=== PATIENT | female | born 1955 | race Caucasian/White ===

== ENCOUNTER 2024-01-10 17:21 | Emergency (ER) | payer OTHER, SELFPAY ==
[2024-01-10 17:26] VITALS: BP 125/73; PULSE 85; RESP 18; TEMP 37.1; O2SAT 97; BMI 17.6
--- NOTE | 2024-01-10 17:33 | ED.GENADULT ---
HPI - General Adult General Chief complaint: Extremity Pain/Injury, Lower Stated complaint: R foot swollen/cbqpvms-zqpoavhie-vinqfms arteries Time Seen by Provider: 01/10/24 17:32 History of Present Illness HPI narrative: This is a 68-year-old female presenting to the ER today accompanied by her granddaughter with concern for redness and swelling affecting her right foot as well as right foot pain and numbness. She moved from [place], [place], yesterday to be here in [facility], close to her family. She now lives in [place] as of yesterday. She has not been able to establish any primary care here in [place] or establish insurance here in [place]. She has multiple chronic medical conditions which require management. She has peripheral artery disease. She apparently has had workup through a vascular surgeon in [facility]. She apparently has a near critical stenosis affecting her right leg, and less severe stenoses affecting her left leg. Apparently these blockages are not amenable to angioplasty. Her surgeon had talked to her about doing a open surgical repair, but since the repair was very risky, she opted not to proceed. She also has a history of lung cancer and has had a partial lung resection. After that she had some recurrent nodules and her other long. She is managing that expecting we and does not want to do chemotherapy. She also has chronic pain and is on oxycodone 10 mg p.r.n.. She also has emphysema. She is not currently on oxygen or steroids. She has hypertension, on hydrochlorothiazide and lisinopril. She came to the ER today because she is concerned that she has an infection evolving in her right foot. She has onychomycosis of the thickening of her toenails. She cut her right big toe a few weeks ago when trying to Christian her toenail. For the past few days she has noticed increasing redness and a little bit of swelling of the big toe and now redness with subtle swelling spreading up the medial instep of her foot up to her posterior ankle. She is not having any fever or chills. No swelling or infection of her left foot. She also notes that she has chronic pain in her feet because of her peripheral artery disease. She says the pain in her right foot has been getting worse for the past few weeks in particular she has been having continuous pain, even with rest, for the past 3 days. She also notes worsening numbness in her right foot over the past several days. It is not turning blue or dusky. No gangrene. Related Data Home Medications ?Medication ?Instructions ?Recorded ?Confirmed hydrochlorothiazide 25 mg tablet 12.5 mg PO DAILY 01/10/24 01/10/24 lisinopril 2.5 mg tablet 2.5 mg PO DAILY 01/10/24 01/10/24 oxycodone 10 mg tablet 10 mg PO TID 01/10/24 01/10/24 potassium 20 mg chewable tablet mg PO 01/10/24 Allergies Allergy/AdvReac Type Severity Reaction Status Date / Time Penicillins Allergy Verified 01/10/24 17:30 Sulfa (Sulfonamide Allergy Verified 01/10/24 17:33 Antibiotics) Exam Narrative: Exam Narrative: Constitutional: Appears well-developed and well-nourished. Very slender but not quite cachectic. Alert. Conversant. Non toxic. HENT: Head: Atraumatic. Nose: Nose normal. Mouth/Throat: Oral mucosa is clear and moist. no trismus. Pharynx normal. Tonsils symmetric. No tonsillar enlargement, erythema, or exudate. Eyes: Conjunctivae normal. EOM normal. Pupils equal, round, and reactive to light. No scleral icterus. Neck: Normal range of motion. Neck supple. No tracheal deviation present. Cardiovascular: Normal rate, regular rhythm. No gallop. No friction rub. No murmur heard. Symmetric radial artery pulses . No palpable DP or PT pulses in either foot. With bedside Doppler ultrasound I am able to get bilateral PT pulses. I am not able to detect dorsalis pedis pulses by ultrasound either foot. She does have less than 3 seconds capillary refill bilaterally. The right foot does appear to be slightly dusky or than the left foot but is not frankly cyanotic or mottled. Pulmonary/Chest: Effort normal. No stridor. No respiratory distress. No wheezes. No rales. No rhonchi . No tenderness. Abdominal: Soft. Bowel sounds normal. No distension. No mass. No tenderness. No rebound. No guarding. Musculoskeletal: RUE: Normal range of motion. No tenderness. No deformity LUE: Normal range of motion. No tenderness. No deformity RLE: Normal range of motion in her knee, it hip, ankle. She is able to wiggle her toes with normal plantar flexion and dorsiflexion. There is erythema of the great toe and a little bit of erythema on the medial arch of the foot and on skin posterior to her medial malleolus. The medial side of the foot feel slightly warmer than the lateral toes. No other more proximal ascending lymphangitis. There is trace edema affecting the right medial foot. She complains of pain in her right foot especially in the forefoot, but is not tender to palpation. No bruising. No crepitus No deformity LLE: Normal range of motion. No edema. No tenderness. No deformity Lymph: No ascending lymphangitis Neurological: Alert and oriented to person, place, and time. Normal strength. CN II-VII intact. No sensory deficit. GCS eye subscore is 4. GCS verbal subscore is 5. GCS motor subscore is 6. Normal coordination Skin: Skin is warm and dry. No rash noted. No pallor. Normal capillary refill. Psychiatric: Normal mood. Normal affect. Const: Vital Signs, click to edit/add: Vital Signs - 24 hr 01/10/24 17:26 Temperature 98.8 F Pulse Rate [Right Pulse Oximeter] 85 Respiratory Rate 18 Blood Pressure [Ri ght Upper Arm] 125/73 Pulse Oximetry 97 Oxygen Delivery Me thod Room Air Course Vital Signs Vital signs: Initial Vital Signs Temperature 98.8 F 01/10/24 17:26 Temperature Source Temporal Artery Scan 01/10/24 17:26 Pulse Rate 85 01/10/24 17:26 Respiratory Rate 18 01/10/24 17:26 Blood Pressure 125/73 01/10/24 17:26 Blood Pressure Mean 90 01/10/24 17:26 Blood Pressure Position Sitting 01/10/24 17:26 Pulse Oximetry 97 01/10/24 17:26 Oxygen Delivery Method Room Air 01/10/24 17:26 Vital Signs Temperature 98.8 F 01/10/24 17:26 Pulse Rate 85 01/10/24 17:26 Respiratory Rate 18 01/10/24 17:26 Blood Pressure 125/73 01/10/24 17:26 Pulse Oximetry 97 01/10/24 17:26 Oxygen Delivery Method Room Air 01/10/24 17:26 Temperature 98.8 F 01/10/24 17:26 Pulse Rate 85 01/10/24 17:26 Respiratory Rate 18 01/10/24 17:26 Blood Pressure 125/73 01/10/24 17:26 Pulse Oximetry 97 01/10/24 17:26 Oxygen Delivery Method Room Air 01/10/24 17:26 Medications Administered Medications: Generic Name Dose Route Start Last Admin Trade Name Sophia PRN Reason Stop Dose Admin Hydromorphone HCl 1 mg 01/10/24 18:21 01/10/24 18:37 Hydromorphone 0.5 Mg/0.5 Ml Inj IM 01/10/24 18:22 1 mg ONCE ONE Administration Medical Decision Making MDM Narrative Medical decision making narrative: 68-year-old female with a complex presentation to the ER. She has multiple chronic medical problems which will require ongoing management but just moved from [place] to [place] yesterday so has no medical care here. Her most pressing issue is her right foot. She reports a longstanding history of peripheral artery disease with apparently fairly severe blockages in her right leg that were not amenable to endovascular therapy. Surgical intervention had been proposed but she declined it because it was apparently very risky. In that context she has chronic pain in her feet. However the pain in her right foot has been getting worse for the past few weeks and she now also has evolving paresthesias in the foot. I am not able to palpate pulses in either foot but she does have pulses detectable by Doppler bilaterally. She does have cap refill in the foot. No signs of wet or dry gangrene at this time. I am concerned that she may have an evolving cellulitis affecting the great toe over foot, although differential would also include skin erythema and changes because of peripheral artery disease. There is no abscess or any purulent drainage to suggest necrotizing infection, abscess, osteomyelitis at this time. My recommendation to the patient was to obtain IV, administer analgesia, start IV antibiotics, check labs. However the patient does not want to do that. She just wants a shot of pain medicine occasion and wants to be started on oral antibiotics. We discussed my concern of potentially progressing infection and risk for developing severe complications. I do not think that she septic right now I do not think there is an active osteomyelitis but more aggressive therapy earlier might prevent those complications from developing in the future. Ultimately she just wants to start on oral antibiotics. I was able to call through the [facility] access lena and make contact with vascular surgery, Dr. Barreto. The patient is not interested in any hospitalization or immediate surgical procedure. He is willing to see her in clinic and has availability in his [facility] next . We have passed through the patient's contact information and he will have his clinic schedulers contact the patient (actually contact her granddaughter Lara) Will start the patient on cephalexin and doxycycline for right foot cellulitis. It is instymeds prescriptions provided. She received 1 mg intra muscular Dilaudid here in the ER. Granddaughter will be driving her home. She has oxycodone tablets at home for her ongoing pain management. Discharge Plan Discharge Clinical Impression: Cellulitis of foot, right, Peripheral arterial disease Patient Disposition: Home, Self-Care Condition: Stable Instructions: Cellulitis (ED), Peripheral Vascular Disease (ED) Additional Instructions: As we discussed, come back to the ER right away if you have worsening redness or swelling in your foot, fever or chills, worsening pain, signs of worsening blood flow to her foot such as pale foot, blueness of your foot, or worsening pain. Please start on the antibiotics to treat the infection in your foot. You cephalexin 500 mg 4 times a day and doxycycline 100 mg 2 times per day to treat the infection. You should receive a phone call from the vascular surgeon's clinic. They will try to set you up for an appointment to see Dr. Barreto in clinic next week on . The please call the [facility] [phone], or the [facility] clinic in [place] [phone] tomorrow to schedule an appointment to establish a new primary care provider here in [place]. Continue on your other medications for now.. Prescriptions: No Action oxycodone 10 mg tablet 10 mg PO TID lisinopril 2.5 mg tablet 2.5 mg PO DAILY hydrochlorothiazide 25 mg tablet 12.5 mg PO DAILY potassium 20 mg tablet,chewable PO Follow Up/Referrals: Provider,Not a Local [Primary Care Provider] - Stand Alone Forms: [employer] Info Instructions
[2024-01-10] MEDS: HYDROmorphone 0.5 mg/0.5 ml inj 1 MG IM (18:37)
== END 2024-01-10 19:11 | disposition home or self-care (01) ==
PROVIDERS: Emergency Provider Emergency Medicine
DX: L03.115 Cellulitis of right lower limb (principal); I73.9 Peripheral vascular disease, unspecified
CPT/HCPCS: 80048; 83605; 85025; 96372; 99283; J1170

== ENCOUNTER 2024-01-11 16:59 | Emergency (ER) | payer MEDICARE, SELFPAY ==
[2024-01-11 17:07] VITALS: BP 129/71; PULSE 59; RESP 18; TEMP 36.4; O2SAT 96; BMI 19.1
--- NOTE | 2024-01-11 17:34 | ED_ITS ---
HPI - General Adult General Chief complaint: Extremity Pain/Injury, Lower Stated complaint: R leg discolored/painful-told to come back if wors Time Seen by Provider: 01/11/24 17:10 History of Present Illness HPI narrative: This 68-year-old female just moved here to be close to family. She has a history of lung cancer with part of her lung removed 6 years ago. The cancer is not returned in the other long. She has peripheral artery disease and has chronic pain. She was seen yesterday in the emergency department here because of a concern of a toenail infection. She was treated with Keflex and doxycycline and instructed to return if symptoms are worsening. She comes in today because of some redness on her right lower extremity in a different area a. This is on the posterior medial aspect of her right lower leg about a [address] up from the ankle to the knee. There is an area of erythema that is about 5 cm in diameter. She does not report any fevers. Related Data Home Medications ?Medication ?Instructions ?Recorded ?Confirmed hydrochlorothiazide 25 mg tablet 12.5 mg PO DAILY 01/10/24 01/10/24 lisinopril 2.5 mg tablet 2.5 mg PO DAILY 01/10/24 01/10/24 oxycodone 10 mg tablet 10 mg PO TID 01/10/24 01/10/24 potassium 20 mg chewable tablet mg PO 01/10/24 Allergies Allergy/AdvReac Type Severity Reaction Status Date / Time Penicillins Allergy Verified 01/10/24 17:30 Sulfa (Sulfonamide Allergy Verified 01/10/24 17:33 Antibiotics) Review of Systems Status of ROS: Reports: 10 or more systems reviewed and unremarkable except as noted in History and below Narrative: Constitutional: No fevers, no weight gain or loss. Chronic pain. Eyes: No discharge. No vision changes. HENT: No congestion, no sore throat, no ear pain. Cardiovascular: No chest pain, no palpitations. Respiratory: No shortness of breath, no wheezes, no cough. Lung cancer. She continues to smoke. Gastrointestinal: No abdominal pain, no vomiting, no diarrhea. Genitourinary: No dysuria, no hematuria. Musculoskeletal: Normal range of motion. Skin: No rashes, no pruritis. Area of redness on the right lower extremity as described above. Neurological: No dizziness, weakness, sensory change, speech change. Endo/Heme/Allergies: No bruising or bleeding. No polydipsia. Pysch: no suicidality, no anxiety, no insomnia. All other systems reviewed and are negative. PFSH PFS Social History Smoking Status: Current every day smoker How often do you have a drink containing alcohol: never AUDIT-C Alcohol total score: 0 Non-prescribed substance use: marijuana (any form) Exam Const: Vital Signs, click to edit/add: Vital Signs - 24 hr 01/11/24 17:07 01/11/24 18:20 Temperature 97.6 F Pulse Rate [Pulse Oximeter] 59 L 73 Respiratory Rate 18 18 Blood Pressure [Ri ght Upper Arm] 129/71 Pulse Oximetry 96 99 Oxygen Delivery Me thod Room Air Course Vital Signs Vital signs: Initial Vital Signs Temperature 97.6 F 01/11/24 17:07 Temperature Source Temporal Artery Scan 01/11/24 17:07 Pulse Rate 59 L 01/11/24 17:07 Pulse Rhythm Regular 01/11/24 17:07 Respiratory Rate 18 01/11/24 17:07 Blood Pressure 129/71 01/11/24 17:07 Blood Pressure Mean 90 01/11/24 17:07 Blood Pressure Position Sitting 01/11/24 17:07 Pulse Oximetry 96 01/11/24 17:07 Oxygen Delivery Method Room Air 01/11/24 17:07 Vital Signs Temperature 97.6 F 01/11/24 17:07 Pulse Rate 59 L 01/11/24 17:07 Respiratory Rate 18 01/11/24 17:07 Blood Pressure 129/71 01/11/24 17:07 Pulse Oximetry 96 01/11/24 17:07 Oxygen Delivery Method Room Air 01/11/24 17:07 Temperature 97.6 F 01/11/24 17:07 Pulse Rate 73 01/11/24 18:20 Respiratory Rate 18 01/11/24 18:20 Blood Pressure 129/71 01/11/24 17:07 Pulse Oximetry 99 01/11/24 18:20 Oxygen Delivery Method Room Air 01/11/24 17:07 Medications Administered Medications: Generic Name Dose Route Start Last Admin Trade Name Freq PRN Reason Stop Dose Admin Lidocaine HCl 2.1 ml 01/11/24 17:32 01/11/24 18:04 Lidocaine 1% 5 Ml (Pf) 5 Ml Vial IM 2.1 ml DIRECTED PRN Administration Pain Discontinued Medications Generic Name Dose Route Start Last Admin Trade Name Sophia PRN Reason Stop Dose Admin Ceftriaxone Sodium 1 gm 01/11/24 17:32 01/11/24 18:04 Ceftriaxone 1 Gm Vial IM 01/11/24 17:33 1 gm ONCE ONE Administration Hydromorphone HCl 0.5 mg 01/11/24 17:32 01/11/24 18:05 Hydromorphone 0.5 Mg/0.5 Ml Inj IM 01/11/24 17:33 0.5 mg ONCE ONE Administration Medical Decision Making MDM Narrative Medical decision making narrative: This patient comes in with concern that she has an infection her leg is worsening despite taking antibiotics that were prescribed yesterday. She arrives here with normal vital signs. She has not had a fever. She does have some erythema in the inner aspect of her right lower extremity. She is reporting that her a great toe on the right foot has an obvious infection in it. There is discoloration of the toenail typical of onychomycosis but no symptoms of infection in the toe itself. I did check labs in her complete blood count and metabolic panel are thoroughly reassuring. The patient is not showing any sign of complication with this matter. She is okay to be discharged home and it is encouraged to continue and complete the prescriptions that she has. I did describe signs and symptoms that would indicate a need for return and re- evaluation. Lab Data Labs: Lab Results 01/11/24 Range/Units 17:53 WBC 5.95 (4.50-11.00) K/uL RBC 4.44 (4.00-5.20) m/uL Hgb 12.1 (12.0-16.0) gm/dL Hct 38.0 (33.0-51.0) % MCV 86 (80-100) fL MCH 27 (26-34) pg MCHC 32 (32-36) gm/dL RDW Coeff of Chugn 13.1 (11.5-15.5) % Plt Count 211 (140-440) K/uL Neut % (Auto) 62.9 (42.0-72.0) % Lymph % (Auto) 28.9 (20-44) % Giles % (Auto) 4.0 (0.0-11.0) % Eos % (Auto) 4.0 (0.0-7.0) % Baso % (Auto) 0.2 (0.0-3.0) % Neut # (Auto) 3.74 (1.7-7.0) K/uL Lymph # (Auto) 1.72 (0.90-2.90) K/uL Giles # (Auto) 0.20 (0.00-0.90) K/UL Eos # (Auto) 0.24 (0.00-0.50) K/uL Baso # (Auto) 0.01 (0.00-0.30) K/uL Abs Immat Gran (auto) 0.00 (0.00-0.30) K/uL Imm/Tot Granulo (auto) 0.0 % Sodium 138 (135-149) mmol/L Potassium 3.4 L (3.6-5.1) mmol/L Chloride 105 (96-114) mmol/L Carbon Dioxide 28 (20-32) mmol/L Anion Gap 5 L (7-15) mEq/L BUN 14 (7-30) mg/dL Creatinine 0.7 (0.5-1.5) mg/dL Estimated Creat Clear 36.73 Estimated GFR 93 ml/min Glucose 99 (60-115) mg/dL Calcium 9.0 (8.4-10.6) mg/dL C-Reactive Protein 0.6 (0.5-1.0) mg/dL Discharge Plan Discharge Clinical Impression: Cellulitis of foot, right Patient Disposition: Home w/ Parent or Adult Condition: Stable Additional Instructions: Continue current plans. Follow up with MD or return if worsening. Prescriptions: No Action oxycodone 10 mg tablet 10 mg PO TID lisinopril 2.5 mg tablet 2.5 mg PO DAILY hydrochlorothiazide 25 mg tablet 12.5 mg PO DAILY potassium 20 mg tablet,chewable PO Follow Up/Referrals: Provider,Not a Local [Primary Care Provider] - Stand Alone Forms: [employer] Info Instructions
[2024-01-11 18:02] LABS: Basophils Absolute Auto 0.01 K/uL (0.00-0.30); Basophils Percent Auto 0.2 % (0.0-3.0); Eosinophils Absolute Auto 0.24 K/uL (0.00-0.50); Hemoglobin* 12.1 gm/dL (12.0-16.0); Lymphocytes Absolute Auto 1.72 K/uL (0.90-2.90); Lymphocytes Percent Auto 28.9 % (20-44); Mean Corpuscular HGB Conc 32 gm/dL (32-36); Mean Corpuscular Hemoglobin 27 pg (26-34); Mean Corpuscular Volume 86 fL (80-100); Neutrophils Absolute Auto 3.74 K/uL (1.7-7.0); Neutrophils Percent Auto 62.9 % (42.0-72.0); Platelet Count* 211 K/uL (140-440); RDW Coefficient of Variation % 13.1 % (11.5-15.5); Red Blood Count 4.44 m/uL (4.00-5.20); White Blood Count* 5.95 K/uL (4.50-11.00)
[2024-01-11] MEDS: LIDOCAINE 1% 5 ml (pf) 5 ML VIAL 2.1 ML IM (18:04)
[2024-01-11] MEDS: cefTRIAXone 1 GM VIAL IM (18:04)
[2024-01-11] MEDS: HYDROmorphone 0.5 mg/0.5 ml inj IM (18:05)
[2024-01-11 18:07] LABS: Slide Review Reflex No
[2024-01-11 18:16] LABS: Chloride* 105 mmol/L (96-114)
[2024-01-11 18:17] LABS: Potassium* 3.4 mmol/L (3.6-5.1); Sodium* 138 mmol/L (135-149)
[2024-01-11 18:19] LABS: Creatinine* 0.7 mg/dL (0.5-1.5); Est. Creatinine Clearance* 36.73; Estimated Glomerular Filt Rate 93 ml/min
[2024-01-11 18:20] VITALS: PULSE 73; RESP 18; O2SAT 99
[2024-01-11 18:20] LABS: Anion Gap 5 mEq/L (7-15); Blood Urea Nitrogen* 14 mg/dL (7-30); Carbon Dioxide* 28 mmol/L (20-32); Glucose* 99 mg/dL (60-115)
[2024-01-11 18:23] LABS: C Reactive Protein* 0.6 mg/dL (0.5-1.0)
== END 2024-01-11 19:02 | disposition home or self-care (01) ==
PROVIDERS: Emergency Provider Emergency Medicine Emergency Medical Services
DX: L03.115 Cellulitis of right lower limb (principal)
CPT/HCPCS: 36415; 80048; 85025; 86140; 96372; 99284; J0696; J1170

== ENCOUNTER 2024-02-08 13:47 | Outpatient (CLI) | payer MEDICARE, SELFPAY ==
--- NOTE | 2024-02-08 14:00 | CRLHL7_ITS ---
For Patients: As a result of the Cures Act, medical imaging exams and procedure reports are released immediately into your electronic medical record. You may view this report before your referring provider. If you have questions, please contact your health care provider. CLINICAL HISTORY Peripheral vascular disease. COMPARISON None. TECHNIQUE The bilateral lower extremity arteries were examined per exam specific protocol with mitchell-scale ultrasound, color-flow and Doppler spectral analysis. Peak systolic velocities (PSV), Doppler waveform quality and Velocity Ratios if applicable, were documented at sites per exam specific protocol. FINDINGS RIGHT: PSV (cm/2nd). Waveform (Tri-T, Bi-B [place]-M). ORAL AND MAXILLOFACIAL PATHOLOGIST: 57. M DFA: 31. M FA PRX: 61. M FA MID: 69. M FA DISTAL: 53. M POP A: 29. M KAJAL A: 31. M PRIVATE [employer]ANCH EXCHANGE INSTALLER: 28. M NILSON: 12. M DPA: 11. M LEFT: PSV (cm/2nd). Waveform (Tri-T, Bi-B [place]-M). ORAL AND MAXILLOFACIAL PATHOLOGIST: 66. M DFA: 24. M FA PRX: 39. M FA MID: 52. M FA DISTAL: 46. M POP A: 27. M KAJAL A: 40. M PRIVATE [employer]AN[employer] EXCHANGE INSTALLER: 35. M NILSON: 19. M DPA: 12. M Monophasic waveforms seen throughout both lower extremity arterial systems, indicative of aortoiliac inflow disease. No hemodynamically significant stenoses or occlusions are identified. IMPRESSION Monophasic waveforms throughout both lower extremity arterial systems, indicative of aortoiliac inflow disease. Deep Khan M.D. Vascular [facility] Interventional [facility]iology [email or web address] KEERTHI/zachery [email or web address]/Dictated by: Deep Khan MD @ 02/10/2024 9:16:00 AM (Electronically Signed)
== END 2024-02-08 13:48 | disposition home or self-care (01) ==
LOC: US 13:49
PROVIDERS: PCP Family Medicine; Visit Provider Family Medicine
DX: I73.9 Peripheral vascular disease, unspecified (principal)
CPT/HCPCS: 93926

== ENCOUNTER 2024-03-20 09:12 | Outpatient (CLI) | payer MEDICARE, SELFPAY | END 2024-03-20 09:13 | disposition home or self-care (01) | PROVIDERS: PCP Family Medicine; Visit Provider Family Medicine | DX: E78.2 Mixed hyperlipidemia (principal); E55.9 Vitamin D deficiency, unspecified; I10 Essential (primary) hypertension | CPT/HCPCS: 80061; 84460 ==

== ENCOUNTER 2024-04-23 14:51 | Emergency (ER) | payer BC, SELFPAY ==
[2024-04-23 14:56] VITALS: BP 149/67; PULSE 87; RESP 20; O2SAT 99; BMI 18.9
--- NOTE | 2024-04-23 15:02 | ED_ITS ---
HPI - General Adult General Chief complaint: Allergic Reaction Stated complaint: allergic reaction Time Seen by Provider: 04/23/24 14:56 History of Present Illness HPI narrative: Stung in mouth by a bee around 1430. Took 2 benadryl DID NOT use epi pen . Swelling in mouth, some throat swelling /discomfort. 69-year-old woman presenting to the emergency department with concern of a ?bee sting?. Sounds like it was some sort of hornet/yellow jacket/wasp. Does have a known allergy. Has needed long time ago dose of epinephrine. Has never needed intubation or more extensive cares. She did take 50 mg of diphenhydramine before arrival to the emergency department. She arrives here about 30 minutes after sting. She was drinking from her pop can when the ?bee? that was within the can, stung her upper lip. Hurts quite a bit and she would appreciate some pain medication for this. Not having shortness of breath. No chest tightness or pain otherwise. She has not been vomiting not reporting any nausea or abdominal pain. No rashes noted otherwise. Related Data Home Medications ?Medication ?Instructions ?Recorded ?Confirmed hydrochlorothiazide 25 mg tablet 12.5 mg PO DAILY 01/10/24 03/20/24 albuterol 90 mcg-budesonide 80 2 inh inhalation ONCE PRN 01/23/24 03/20/24 mcg/actuation HFA aerosol inhaler fluticasone propionate 50 2 spray intranasal QDAY 01/23/24 03/20/24 mcg/actuation nasal spray,suspension (Flonase Allergy Relief) ipratropium 0.5 mg-albuterol 3 mg 3 ml inhalation Q4-6H PRN 01/23/24 03/20/24 (2.5 mg base)/3 mL nebulization soln lisinopril 5 mg tablet 5 mg PO QDAY 01/23/24 03/20/24 omeprazole 40 mg capsule,delayed 40 mg PO QDAY 01/23/24 03/20/24 release potassium citrate 10 mEq (1,080 20 meq PO QDAY 01/23/24 03/20/24 mg) tablet,extended release aspirin 81 mg tablet,delayed 81 mg PO QDAY 03/20/24 03/20/24 release (Adult Aspirin Regimen) Previous Rx's ?Medication ?Instructions ?Recorded naloxone 1 mg/mL injection syringe 1 mg IM ONCE #2 mL 01/23/24 hydrocortisone 2.5 % topical cream 1 applic topical BID PRN itching 02/08/24 #30 grams alprazolam 0.5 mg tablet (Xanax) 0.5 mg PO QDAY #30 tabs 03/20/24 apixaban 5 mg tablet (Eliquis) 5 mg PO BID #180 tabs 03/20/24 atorvastatin 40 mg tablet 40 mg PO QHS #90 tabs 03/20/24 cetirizine 10 mg tablet (Zyrtec) 10 mg PO QDAY #90 tabs 03/20/24 cyclobenzaprine 10 mg tablet 10 mg PO QHS PRN muscle spasm #90 03/20/24 tabs escitalopram oxalate 20 mg tablet 20 mg PO QDAY #90 tabs 03/20/24 hydroxyzine HCl 25 mg tablet 25 mg PO QID PRN anxiety #90 tabs 03/20/24 prazosin 2 mg capsule 6 mg (3 x 2 mg) PO QHS #90 caps 03/22/24 oxycodone-acetaminophen 10 mg-325 1 tab PO Q6H PRN pain #60 tabs 04/11/24 mg tablet prednisone 20 mg tablet 20 mg PO BID 2 days #4 tabs 04/23/24 Allergies Allergy/AdvReac Type Severity Reaction Status Date / Time Penicillins Allergy Severe Anaphylaxis Verified 03/20/24 08:37 bupropion [From Wellbutrin] Allergy Intermediate Body Verified 03/20/24 08:37 Numbness & Tingling gabapentin Allergy Intermediate Severe Verified 03/20/24 08:37 Fatigue Sulfa (Sulfonamide Allergy Intermediate Blister Verified 03/20/24 08:37 Antibiotics) Inside & Outside Mouth bee venom protein (honey bee) Allergy Unknown Verified 04/23/24 14:58 Review of Systems Status of ROS: Reports: 6 or more systems reviewed and unremarkable except as noted in History and below [facility] Medical History Primary hypertension ?I10 - Essential (primary) hypertension (ICD-10) Mixed hyperlipidemia ?E78.2 - Mixed hyperlipidemia (ICD-10) History of acute pancreatitis (08/03/23) ?Z87.19 - Personal history of other diseases of the digestive system (ICD-10) Vitamin D deficiency ?E55.9 - Vitamin D deficiency, unspecified (ICD-10) Allergic rhinitis, seasonal ?J30.2 - Other seasonal allergic rhinitis (ICD-10) Alcohol dependence in remission ?F10.21 - Alcohol dependence, in remission (ICD-10) Migraines ?G43.909 - Migraine, unspecified, not intractable, without status migrainosus (ICD-10) Urinary incontinence ?R32 - Unspecified urinary incontinence (ICD-10) Peripheral vascular disease ?I73.9 - Peripheral vascular disease, unspecified (ICD-10) History of pyloric stenosis ?Z87.19 - Personal history of other diseases of the digestive system (ICD-10) GERD (gastroesophageal reflux disease) ?K21.9 - Gastro-esophageal reflux disease without esophagitis (ICD-10) COPD (chronic obstructive pulmonary disease) ?J44.9 - Chronic obstructive pulmonary disease, unspecified (ICD-10) History of primary malignant neoplasm of left lung (06/2017) ?Z85.118 - Personal history of other malignant neoplasm of bronchus and lung (ICD-10) Chronic neck and back pain ?M54.2 - Cervicalgia (ICD-10) ?M54.9 - Dorsalgia, unspecified (ICD-10) ?G89.29 - Other chronic pain (ICD-10) Osteoporosis ?M81.0 - Age-related osteoporosis without current pathological fracture (ICD- 10) Lung nodules ?R91.8 - Other nonspecific abnormal finding of lung field (ICD-10) PTSD (post-traumatic stress disorder) ?F43.10 - Post-traumatic stress disorder, unspecified (ICD-10) Chronic prescription opiate use ?Z79.891 - intermission coordinator (current) use of 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 (ICD-10) BREONNA (generalized anxiety disorder) ?F41.1 - Generalized anxiety disorder (ICD-10) Major depression, recurrent ?F33.9 - Major depressive disorder, recurrent, unspecified (ICD-10) Chronic pain syndrome ?G89.4 - Chronic pain syndrome (ICD-10) Surgical History History of lumbar fusion (1995) ?Z98.1 - Arthrodesis status (ICD-10) History of tubal ligation ?Z98.51 - Tubal ligation status (ICD-10) History of left hip hemiarthroplasty (2012) ?Z96.642 - Presence of left artificial hip joint (ICD-10) History of release of tendon (2018) ?Z98.890 - Other specified postprocedural states (ICD-10) History of total bilateral knee replacement ?Z96.653 - Presence of artificial knee joint, bilateral (ICD-10) History of inguinal hernia repair (08/09/22) ?Z98.890 - Other specified postprocedural states (ICD-10) ?Z87.19 - Personal history of other diseases of the digestive system (ICD-10) History of esophageal dilatation (~2012) ?Z98.890 - Other specified postprocedural states (ICD-10) 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) ?Z90.2 - Acquired absence of lung [part of] (ICD-10) Family History Family/Other Drug dependence Mother High blood pressure Heart disease Diabetes Maternal Grandmother Diabetes Other Breast cancer Social History Narrative: , one daughter, retired, smoker, no EtOH What is your current living situation?: I presently have a place to live Problems where you live: no known problems In the past 12 months, utilities in danger of being shut off: no In past 12 months, lack of transportation kept you from medical appts, meetings, work, or getting things needed for daily living: no In the past 12 mos, have been you worried that your food would run out before you had money to buy more?: sometimes true In the past 12 mos, the food you bought just didn't last and you didn't have money to buy more?: sometimes true Smoking Status: Current every day smoker How often do you have a drink containing alcohol: never AUDIT-C Alcohol total score: 0 Non-prescribed substance use: marijuana (any form) How often does anyone, including family, friends and others, physically hurt you : never How often does anyone, including family, friends and others, insult or talk down to you: never How often does anyone, including family, friends and others, threaten you with harm: never How often does anyone, including family, friends and others, scream or curse at you: never Little interest or pleasure in doing things: several days Feeling down, depressed, or hopeless: several days Exam Narrative: Exam Narrative: Pleasant. Thin. Shaky. Mild to moderately anxious. Breathing easily other street though. Lungs are clear. There is no stridor or wheeze. Heart in regular rate and rhythm. Oropharynx is unremarkable other than right upper lip where looks to be the envenomation site; I do not see any remaining stinger. There is some mild puffiness to the middle aspect of her upper lip. Const: Vital Signs, click to edit/add: Vital Signs - 24 hr 04/23/24 14:56 Pulse Rate [Pulse Oximeter] 87 Respiratory Rate 20 Blood Pressure [Ri ght Upper Arm] 149/67 H Pulse Oximetry 99 Oxygen Delivery Me thod Room Air Documenting provider has reviewed patient's vital signs: yes Course Vital Signs Vital signs: Initial Vital Signs Pulse Rate 87 04/23/24 14:56 Respiratory Rate 20 04/23/24 14:56 Blood Pressure 149/67 H 04/23/24 14:56 Blood Pressure Mean 94 04/23/24 14:56 Blood Pressure Position Sitting 04/23/24 14:56 Pulse Oximetry 99 04/23/24 14:56 Oxygen Delivery Method Room Air 04/23/24 14:56 Vital Signs Pulse Rate 87 04/23/24 14:56 Respiratory Rate 20 04/23/24 14:56 Blood Pressure 149/67 H 04/23/24 14:56 Pulse Oximetry 99 04/23/24 14:56 Oxygen Delivery Method Room Air 04/23/24 14:56 Temperature 97.6 F 04/23/24 16:16 Pulse Rate 75 04/23/24 16:05 Respiratory Rate 18 04/23/24 16:05 Blood Pressure 142/71 H 04/23/24 16:05 Pulse Oximetry 99 04/23/24 16:05 Oxygen Delivery Method Room Air 04/23/24 16:05 Medications Administered Medications: Discontinued Medications Generic Name Dose Route Start Last Admin Trade Name Freq PRN Reason Stop Dose Admin Lidocaine HCl 2 ml 04/23/24 15:02 04/23/24 15:19 Lidocaine 1% 5 Ml (Pf) 5 Ml Vial INJECTION 04/23/24 15:03 2 ml ONCE ONE Administration Prednisone 60 mg 04/23/24 15:01 04/23/24 15:09 Prednisone 20 Mg Tablet PO 04/23/24 15:02 60 mg ONCE ONE Administration Medical Decision Making MDM Narrative Medical decision making narrative: No indication of respiratory difficulty or pending respiratory difficulty at this point. Would monitor for worsening. There is no stinger to remove. She would relate like some pain medication. I think a localized injection of anesthetic would be most effective. Would also give oral prednisone and then monitor to determine if further intervention is required. Return to inject upper lip in essentially a buccal block with 1 mL near bite site of 1% lidocaine. She was then noting some pain somewhat on the left mid upper lip as well so injected here at the same time. Would also recommend icing. Markedly improved. Shaking, trembling has resolved. No worsening of respiratory symptoms. Pain is returning in her lip. And so I did same injection with 1 mL each side of midline upper lip in a buccal block with bupivacaine. Already improving again before departure. See patient discharge plan for further discussion Medical Records Medical records reviewed: Yes I reviewed the patient's medical records Discharge Plan Discharge Clinical Impression: Hornet sting Patient Disposition: Home w/ Parent or Adult Condition: Improved Additional Instructions: As I said I would apply cool packs or maybe icing to your upper lip in termittently through the rest of the day. For breakthrough itch or some swelling consider dosing again diphenhydramine. Do the same for any indication of throat tightening, difficulty swallowing or difficulty breathing and then present to the emergency department. Prednisone also from [facility]. Would take 20 mg twice daily over the next 2 days. Prescriptions: New prednisone 20 mg tablet 20 mg PO BID 2 Days Qty: 4 1RF No Action potassium citrate 10 mEq (1,080 mg) tablet extended release 20 meq PO QDAY albuterol-budesonide 90-80 mcg/actuation HFA aerosol inhaler 2 inh inhalation ONCE PRN Rx Instructions: as a single dose; may repeat up to 6 doses per day (12 inhalations) ipratropium-albuterol 0.5 mg-3 mg(2.5 mg base)/3 mL solution for nebulization 3 ml inhalation Q4-6H PRN omeprazole 40 mg capsule,delayed release(DR/EC) 40 mg PO QDAY lisinopril 5 mg tablet 5 mg PO QDAY fluticasone propionate [Flonase Allergy Relief] 50 mcg/actuation spray,suspension 2 spray intranasal QDAY Rx Instructions: administer into each nostril naloxone 1 mg/mL syringe 1 mg IM ONCE Qty: 2 0RF hydrocortisone 2.5 % cream 1 applic topical BID PRN (Reason: itching) Qty: 30 0RF aspirin [Adult Aspirin Regimen] 81 mg tablet,delayed release (DR/EC) 81 mg PO QDAY cyclobenzaprine 10 mg tablet 10 mg PO QHS PRN (Reason: muscle spasm) Qty: 90 1RF atorvastatin 40 mg tablet 40 mg PO QHS Qty: 90 1RF Eliquis 5 mg tablet 5 mg PO BID Qty: 180 3RF escitalopram oxalate 20 mg tablet 20 mg PO QDAY Qty: 90 1RF cetirizine [Zyrtec] 10 mg tablet 10 mg PO QDAY Qty: 90 3RF alprazolam [Xanax] 0.5 mg tablet 0.5 mg PO QDAY Qty: 30 1RF hydroxyzine HCl 25 mg tablet 25 mg PO QID PRN (Reason: anxiety) Qty: 90 1RF hydrochlorothiazide 25 mg tablet 12.5 mg PO DAILY prazosin 2 mg capsule 6 mg PO QHS Qty: 90 5RF oxycodone-acetaminophen 10-325 mg tablet 1 tab PO Q6H PRN (Reason: pain) Qty: 60 0RF Follow Up/Referrals: Addison Chapin MD [Primary Care Provider] - Stand Alone Forms: [facility] Info Instructions
[2024-04-23] MEDS: predniSONE 20 MG TABLET 60 MG PO (15:09)
[2024-04-23] MEDS: LIDOCAINE 1% 5 ml (pf) 5 ML VIAL 2 ML INJECTION (15:19)
[2024-04-23 16:05] VITALS: BP 142/71; PULSE 75; RESP 18; O2SAT 99
[2024-04-23 16:16] VITALS: TEMP 36.4
== END 2024-04-23 16:44 | disposition home or self-care (01) ==
PROVIDERS: Emergency Provider Family Medicine; PCP Family Medicine
DX: T63.451A Toxic effect of venom of hornets, accidental (unintentional), initial encounter (principal)
CPT/HCPCS: 64400; 99283; 99284; J7512

== ENCOUNTER 2024-06-12 22:39 | Emergency (ER) | payer BC, SELFPAY ==
[2024-06-12] VITALS (9 sets, daily range): BP systolic 113–171; BP diastolic 54–78; PULSE 67–77; RESP 16–24; TEMP 37.1; O2SAT 94–99; BMI 20.8
--- NOTE | 2024-06-12 22:55 | CRLHL7_ITS ---
For Patients: As a result of the Century Cures Act, medical imaging exams and procedure reports are released immediately into your electronic medical record. You may view this report before your referring provider. If you have questions, please contact your health care provider. INDICATION: Shortness of breath. TECHNIQUE: Chest 2 view. COMPARISON: None. FINDINGS: No focal consolidation, pleural effusion, or pneumothorax. Irregular nodular density in the right upper lung projected over the 5th posterior rib measuring approximately 12 mm. Normal heart size and pulmonary vascularity. Surgical clip over the mediastinum. Elevation of the left hemidiaphragm. Thoracolumbar curve. Age-indeterminate anterior wedging of a few lower thoracic and lumbar vertebral bodies. IMPRESSION: 1. No acute cardiopulmonary findings. 2. Irregular nodular density in the right upper lung could be related to the 1st rib costochondral junction versus underlying pulmonary nodule. Consider further evaluation with nonemergent chest CT. Dictated by Letty Basilio MD @ 06/13/2024 12:18:33 AM (Electronically Signed)
[2024-06-12] MEDS: predniSONE 10 MG TABLET 50 MG PO (23:07)
[2024-06-12] MEDS: IPRAT-ALBUT 0.5-2.5 MG/3 ML NEB 1 NEB IH (23:07)
[2024-06-12 23:17] LABS: Chloride* 103 mmol/L (96-114); Potassium* 3.8 mmol/L (3.6-5.1); Sodium* 140 mmol/L (135-149)
[2024-06-12 23:20] LABS: Creatinine* 0.6 mg/dL (0.5-1.5); Est. Creatinine Clearance* 35.47; Estimated Glomerular Filt Rate 96 ml/min
[2024-06-12 23:21] LABS: Anion Gap 7 mEq/L (7-15); Blood Urea Nitrogen* 20 mg/dL (7-30); Calcium* 9.1 mg/dL (8.4-10.6); Carbon Dioxide* 30 mmol/L (20-32); Glucose* 116 mg/dL (60-115)
[2024-06-12 23:23] LABS: C Reactive Protein* 0.7 mg/dL (0.5-1.0)
[2024-06-12 23:32] LABS: NT Pro B Type NatriureticPept* 142 pg/mL
[2024-06-12 23:34] LABS: Basophils Absolute Auto 0.02 K/uL (0.00-0.30); Basophils Percent Auto 0.3 % (0.0-3.0); Eosinophils Absolute Auto 0.35 K/uL (0.00-0.50); Eosinophils Percent Auto 5.7 % (0.0-7.0); Hematocrit 41.3 % (33.0-51.0); Hemoglobin* 12.9 gm/dL (12.0-16.0); Immature Granulocytes Abs Auto 0.02 K/uL (0.00-0.30); Immature Granulocytes Pct Auto 0.3 %; Lymphocytes Absolute Auto 2.07 K/uL (0.90-2.90); Lymphocytes Percent Auto 33.8 % (20-44); Mean Corpuscular HGB Conc 31 gm/dL (32-36); Mean Corpuscular Hemoglobin 27 pg (26-34); Mean Corpuscular Volume 88 fL (80-100); Monocytes Percent Auto 8.5 % (0.0-11.0); Neutrophils Absolute Auto 3.14 K/uL (1.7-7.0); Neutrophils Percent Auto 51.4 % (42.0-72.0); Platelet Count* 182 K/uL (140-440); RDW Coefficient of Variation % 12.6 % (11.5-15.5); Red Blood Count 4.72 m/uL (4.00-5.20); Slide Review Reflex No; Troponin I* < 0.01 ng/mL (0.01-0.04); White Blood Count* 6.12 K/uL (4.50-11.00)
--- NOTE | 2024-06-12 23:38 | ED_ITS ---
HPI - General Adult General Chief complaint: Chest Pain <Elvira Kiran MD - Last Filed: 06/17/24 14:52> Stated complaint: Chest pain, short of breath <Elvira Kiran MD - Last Filed: 06/17/24 14:52> Time Seen by Provider: 06/12/24 22:50 <Elvira Kiran MD - Last Filed: 06/17/24 14:52> Source: patient <Elvira Kiran MD - Last Filed: 06/17/24 14:52> Mode of arrival: ambulatory <Elvira Kiran MD - Last Filed: 06/17/24 14:52> Limitations: no limitations <Elvira Kiran MD - Last Filed: 06/17/24 14:52> History of Present Illness HPI narrative: 69-year-old female coming in today concerned about chest pain or shortness of breath for 2 days. She has been coughing quite a bit. She does have a history of COPD and has been taking her inhalers which have not been helping her symptoms. She denies fevers but states that every now and then she does have chills. She also feels sweaty. No nausea or vomiting. Pain is located on the left side of the chest and is present only with breathing. Cough is nonproductive. <Elvira Kiran MD - Last Filed: 06/17/24 14:52> Related Data Home medications: Home Medications ?Medication ?Instructions ?Recorded ?Confirmed hydrochlorothiazide 25 mg tablet 12.5 mg PO DAILY 01/10/24 03/20/24 albuterol 90 mcg-budesonide 80 2 inh inhalation ONCE PRN 01/23/24 03/20/24 mcg/actuation HFA aerosol inhaler fluticasone propionate 50 2 spray intranasal QDAY 01/23/24 03/20/24 mcg/actuation nasal spray,suspension (Flonase Allergy Relief) ipratropium 0.5 mg-albuterol 3 mg 3 ml inhalation Q4-6H PRN 01/23/24 03/20/24 (2.5 mg base)/3 mL nebulization soln lisinopril 5 mg tablet 5 mg PO QDAY 01/23/24 03/20/24 omeprazole 40 mg capsule,delayed 40 mg PO QDAY 01/23/24 03/20/24 release potassium citrate 10 mEq (1,080 20 meq PO QDAY 01/23/24 03/20/24 mg) tablet,extended release aspirin 81 mg tablet,delayed 81 mg PO QDAY 03/20/24 03/20/24 release (Adult Aspirin Regimen) Previous Rx's ?Medication ?Instructions ?Recorded naloxone 1 mg/mL injection syringe 1 mg IM ONCE #2 mL 01/23/24 hydrocortisone 2.5 % topical cream 1 applic topical BID PRN itching 02/08/24 #30 grams alprazolam 0.5 mg tablet (Xanax) 0.5 mg PO QDAY #30 tabs 03/20/24 apixaban 5 mg tablet (Eliquis) 5 mg PO BID #180 tabs 03/20/24 atorvastatin 40 mg tablet 40 mg PO QHS #90 tabs 03/20/24 cetirizine 10 mg tablet (Zyrtec) 10 mg PO QDAY #90 tabs 03/20/24 cyclobenzaprine 10 mg tablet 10 mg PO QHS PRN muscle spasm #90 03/20/24 tabs escitalopram oxalate 20 mg tablet 20 mg PO QDAY #90 tabs 03/20/24 prazosin 2 mg capsule 6 mg (3 x 2 mg) PO QHS #90 caps 03/22/24 prednisone 20 mg tablet 20 mg PO BID 2 days #4 tabs 04/23/24 hydroxyzine HCl 25 mg tablet 25 mg PO QID PRN anxiety #90 tabs 05/14/24 oxycodone-acetaminophen 10 mg-325 1 tab PO BID PRN pain #20 tabs 05/28/24 mg tablet azithromycin 250 mg tablet See Rx Instructions PO .COMPLEX #6 06/13/24 tabs lorazepam 0.5 mg tablet 0.5 mg PO DAILY PRN anxiety #2 tabs 06/13/24 prednisone 20 mg tablet 20 mg PO DAILY 5 days #5 tabs 06/13/24 <Elvira Kiran MD - Last Filed: 06/17/24 14:52> Allergies/adverse reactions: Allergies Allergy/AdvReac Type Severity Reaction Status Date / Time Penicillins Allergy Severe Anaphylaxis Verified 06/12/24 22:47 bupropion (From Wellbutrin) Allergy Intermediate Body Verified 06/12/24 22:47 Numbness & Tingling gabapentin Allergy Intermediate Severe Verified 06/12/24 22:47 Fatigue Sulfa (Sulfonamide Allergy Intermediate Blister Verified 06/12/24 22:47 Antibiotics) Inside & Outside Mouth bee venom protein (honey bee) Allergy Unknown Verified 06/12/24 22:47 <Elvira Kiran MD - Last Filed: 06/17/24 14:52> Review of Systems Status of ROS: Reports: 10 or more systems reviewed and unremarkable except as noted in History and below <Elvira Kiran MD - Last Filed: 06/17/24 14:52> [facility] Medical History: Medical History Primary hypertension ?I10 - Essential (primary) hypertension (ICD-10) Mixed hyperlipidemia ?E78.2 - Mixed hyperlipidemia (ICD-10) History of acute pancreatitis (08/03/23) ?Z87.19 - Personal history of other diseases of the digestive system (ICD-10) Vitamin D deficiency ?E55.9 - Vitamin D deficiency, unspecified (ICD-10) Allergic rhinitis, seasonal ?J30.2 - Other seasonal allergic rhinitis (ICD-10) Alcohol dependence in remission ?F10.21 - Alcohol dependence, in remission (ICD-10) Migraines ?G43.909 - Migraine, unspecified, not intractable, without status migrainosus (ICD-10) Urinary incontinence ?R32 - Unspecified urinary incontinence (ICD-10) Peripheral vascular disease ?I73.9 - Peripheral vascular disease, unspecified (ICD-10) History of pyloric stenosis ?Z87.19 - Personal history of other diseases of the digestive system (ICD-10) GERD (gastroesophageal reflux disease) ?K21.9 - Gastro-esophageal reflux disease without esophagitis (ICD-10) COPD (chronic obstructive pulmonary disease) ?J44.9 - Chronic obstructive pulmonary disease, unspecified (ICD-10) History of primary malignant neoplasm of left lung (06/2017) ?Z85.118 - Personal history of other malignant neoplasm of bronchus and lung (ICD-10) Chronic neck and back pain ?M54.2 - Cervicalgia (ICD-10) ?M54.9 - Dorsalgia, unspecified (ICD-10) ?G89.29 - Other chronic pain (ICD-10) Osteoporosis ?M81.0 - Age-related osteoporosis without current pathological fracture (ICD- 10) Lung nodules ?R91.8 - Other nonspecific abnormal finding of lung field (ICD-10) PTSD (post-traumatic stress disorder) ?F43.10 - Post-traumatic stress disorder, unspecified (ICD-10) Chronic prescription opiate use ?Z79.891 - 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 (ICD-10) BREONNA (generalized anxiety disorder) ?F41.1 - Generalized anxiety disorder (ICD-10) Major depression, recurrent ?F33.9 - Major depressive disorder, recurrent, unspecified (ICD-10) Chronic pain syndrome ?G89.4 - Chronic pain syndrome (ICD-10) <Elvira Kiran MD - Last Filed: 06/17/24 14:52> Surgical History: Surgical History History of lumbar fusion (1995) ?Z98.1 - Arthrodesis status (ICD-10) History of tubal ligation ?Z98.51 - Tubal ligation status (ICD-10) History of left hip hemiarthroplasty (2012) ?Z96.642 - Presence of left artificial hip joint (ICD-10) History of release of tendon (2017) ?Z98.890 - Other specified postprocedural states (ICD-10) History of total bilateral knee replacement ?Z96.653 - Presence of artificial knee joint, bilateral (ICD-10) History of inguinal hernia repair (08/09/22) ?Z98.890 - Other specified postprocedural states (ICD-10) ?Z87.19 - Personal history of other diseases of the digestive system (ICD-10) History of esophageal dilatation (~2012) ?Z98.890 - Other specified postprocedural states (ICD-10) 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) ?Z90.2 - Acquired absence of lung [part of] (ICD-10) <Elvira Kiran MD - Last Filed: 06/17/24 14:52> Family History: Family History Family/Other Drug dependence Mother High blood pressure Heart disease Diabetes Maternal Grandmother Diabetes Other Breast cancer <Elvira Kiran MD - Last Filed: 06/17/24 14:52> Social History: Social History Narrative: , one daughter, retired, smoker, no EtOH What is your current living situation?: I presently have a place to live Problems where you live: no known problems In the past 12 months, utilities in danger of being shut off: no In the past 12 mos, have been you worried that your food would run out before you had money to buy more?: sometimes true In the past 12 mos, the food you bought just didn't last and you didn't have money to buy more?: sometimes true Smoking Status: Current every day smoker How often do you have a drink containing alcohol: never AUDIT-C Alcohol total score: 0 Non-prescribed substance use: marijuana (any form) How often does anyone, including family, friends and others, physically hurt you : never How often does anyone, including family, friends and others, insult or talk down to you: never How often does anyone, including family, friends and others, threaten you with harm: never How often does anyone, including family, friends and others, scream or curse at you: never Health Related Social Needs: food insecurity (Z59.41) <Elvira Kiran MD - Last Filed: 06/17/24 14:52> Exam Narrative: Exam Narrative: Thin, frail patient, appears quite anxious and jittery. Alert and oriented. Answers questions appropriately. Patient speaks in full sentences without needing to catch their breath. HEENT: Normocephalic atraumatic. Pupils are equally round reactive to light. Extraocular muscles are intact. Conjunctivae are moist without any icterus noted. Moist mucous membranes. Posterior pharynx is normal. Neck is supple. Cardiovascular: Heart is regular rate and rhythm S1 and S2 are present without any murmurs. Lungs: Left lung is clear, wheezing throughout the right lung. Abdomen: Soft and nontender nondistended with normal bowel sounds. Extremities: Bilateral lower extremities are without edema. Skin: Well perfused without any obvious rashes. <Elvira Kiran MD - Last Filed: 06/17/24 14:52> Const: Vital Signs, click to edit/add: Vital Signs - 24 hr 06/12/24 22:47 06/12/24 22:54 06/12/24 22:55 Temperature 98.8 F Pulse Rate 71 Pulse Rate [Pulse Oximeter] 74 Respiratory Rate 24 Blood Pressure Blood Pressure [Le ft Upper Arm] 171/78 H Pulse Oximetry 96 99 96 Oxygen Delivery Me thod Room Air 06/12/24 22:56 06/12/24 23:06 06/12/24 23:15 Temperature Pulse Rate 69 77 72 Pulse Rate [Pulse Oximeter] Respiratory Rate 16 Blood Pressure 127/64 Blood Pressure [Le ft Upper Arm] Pulse Oximetry 96 94 98 Oxygen Delivery Me thod 06/12/24 23:30 06/12/24 23:31 06/12/24 23:45 Temperature Pulse Rate 67 68 67 Pulse Rate [Pulse Oximeter] Respiratory Rate 16 Blood Pressure 113/54 L Blood Pressure [Le ft Upper Arm] Pulse Oximetry 97 94 96 Oxygen Delivery Me thod 06/13/24 00:00 Temperature Pulse Rate 71 Pulse Rate [Pulse Oximeter] Respiratory Rate Blood Pressure Blood Pressure [Le ft Upper Arm] Pulse Oximetry 90 Oxygen Delivery Me thod <Elvira Kiran MD - Last Filed: 06/17/24 14:52> Vital Signs, click to edit/add: Vital Signs - 24 hr 06/12/24 22:47 06/12/24 22:54 06/12/24 22:55 Temperature 98.8 F Pulse Rate 71 Pulse Rate [Pulse Oximeter] 74 Respiratory Rate 24 Blood Pressure Blood Pressure [Le ft Upper Arm] 171/78 H Pulse Oximetry 96 99 96 Oxygen Delivery Me thod Room Air 06/12/24 22:56 06/12/24 23:06 06/12/24 23:15 Temperature Pulse Rate 69 77 72 Pulse Rate [Pulse Oximeter] Respiratory Rate 16 Blood Pressure 127/64 Blood Pressure [Le ft Upper Arm] Pulse Oximetry 96 94 98 Oxygen Delivery Me thod 06/12/24 23:30 06/12/24 23:31 06/12/24 23:45 Temperature Pulse Rate 67 68 67 Pulse Rate [Pulse Oximeter] Respiratory Rate 16 Blood Pressure 113/54 L Blood Pressure [Le ft Upper Arm] Pulse Oximetry 97 94 96 Oxygen Delivery Me thod 06/13/24 00:00 Temperature Pulse Rate 71 Pulse Rate [Pulse Oximeter] Respiratory Rate Blood Pressure Blood Pressure [Le ft Upper Arm] Pulse Oximetry 90 Oxygen Delivery Me thod <Kathy Ward MD - Last Filed: 06/13/24 00:46> Course Course ED Course: Patient was given a DuoNeb and oral prednisone. CBC was unremarkable. Normal chemistries. Troponin is less than 0.01. Normal CRP. normal BNP. Triple swab negative. After her DuoNeb I did re-evaluate the patient and her wheezing had resolved, however, she stated that she did not feel any different. <Elvira Kiran MD - Last Filed: 06/17/24 14:52> Reevaluation(s) Time of Reevaluation #1: 00:43 <Kathy Ward MD - Last Filed: 06/13/24 00:46> Reevaluation #1: Dr. Ward- Patient reporting that she is feeling much better from the Ativan. She asks be for prescription to have at home. I am very hesitant to do this. Especially then when she rambles on that she was on 4 mg of Xanax daily for many years. She also takes oxycodone on a regular basis. Unfortunately, with the holiday I do think she is high risk of rebound. She has not had any hypoxia here. I let her know I will give her 2 total tablets that she can use p.r.n. with her prednisone for the next couple of days only. Chest x-ray does not show any pneumonia. Small pulmonary nodule noted, as I described this to her, it sounds as though this is chronic. I let her know that since I cannot compare her previous x-rays as all of her cares and another health system, it is her responsibility to follow up on this. Written report provided, written instructions provided. I suspect that her symptoms are from a COPD flare. She is in agreement with this. She will get azithromycin prior to leaving the ED here. She will continue on this once daily in the mornings for 5 additional days. To also continue on prednisone 20 mg daily in the afternoon/evening for the next 5 days. She tells me that she does have access to DuoNebs and all necessary supplies at home, she will use this t.i.d. scheduled and up to every 2 hours then as needed for significant shortness of breath. Alarm symptoms reviewed that would warrant ED presentation and sooner follow-up. She verbalizes understanding and agreement. Written instructions provided. <Kathy Ward MD - Last Filed: 06/13/24 00:46> Vital Signs Vital signs: Initial Vital Signs Temperature 98.8 F 06/12/24 22:47 Temperature Source Temporal Artery Scan 06/12/24 22:47 Pulse Rate 74 06/12/24 22:47 Pulse Rhythm Regular 06/12/24 22:47 Respiratory Rate 24 06/12/24 22:47 Blood Pressure 171/78 H 06/12/24 22:47 Blood Pressure Mean 109 H 06/12/24 22:47 Pulse Oximetry 96 06/12/24 22:47 Oxygen Delivery Method Room Air 06/12/24 22:47 Vital Signs Temperature 98.8 F 06/12/24 22:47 Pulse Rate 74 06/12/24 22:47 Respiratory Rate 24 06/12/24 22:47 Blood Pressure 171/78 H 06/12/24 22:47 Pulse Oximetry 96 06/12/24 22:47 Oxygen Delivery Method Room Air 06/12/24 22:47 Temperature 98.8 F 06/12/24 22:47 Pulse Rate 71 06/13/24 00:00 Respiratory Rate 16 06/12/24 23:31 Blood Pressure 113/54 L 06/12/24 23:31 Pulse Oximetry 90 06/13/24 00:00 Oxygen Delivery Method Room Air 06/12/24 22:47 <Elvira Kiran MD - Last Filed: 06/17/24 14:52> Initial Vital Signs Temperature 98.8 F 06/12/24 22:47 Temperature Source Temporal Artery Scan 06/12/24 22:47 Pulse Rate 74 06/12/24 22:47 Pulse Rhythm Regular 06/12/24 22:47 Respiratory Rate 24 06/12/24 22:47 Blood Pressure 171/78 H 06/12/24 22:47 Blood Pressure Mean 109 H 06/12/24 22:47 Pulse Oximetry 96 06/12/24 22:47 Oxygen Delivery Method Room Air 06/12/24 22:47 Vital Signs Temperature 98.8 F 06/12/24 22:47 Pulse Rate 74 06/12/24 22:47 Respiratory Rate 24 06/12/24 22:47 Blood Pressure 171/78 H 06/12/24 22:47 Pulse Oximetry 96 06/12/24 22:47 Oxygen Delivery Method Room Air 06/12/24 22:47 Temperature 98.8 F 06/12/24 22:47 Pulse Rate 71 06/13/24 00:00 Respiratory Rate 16 06/12/24 23:31 Blood Pressure 113/54 L 06/12/24 23:31 Pulse Oximetry 90 06/13/24 00:00 Oxygen Delivery Method Room Air 06/12/24 22:47 <Kathy Ward MD - Last Filed: 06/13/24 00:46> Medications Administered Medications: Discontinued Medications Generic Name Dose Route Start Last Admin Trade Name Frecan PRN Reason Stop Dose Admin Acetaminophen 1,000 mg 06/12/24 23:50 06/12/24 23:55 Acetaminophen 500 Mg Tablet PO 06/12/24 23:51 1,000 mg ONCE ONE Administration Albuterol/Ipratropium 1 neb 06/12/24 22:54 06/12/24 23:07 Iprat-Albut 0.5-2.5 Mg/3 Ml Neb IH 06/12/24 22:55 1 neb ONCE ONE Administration Azithromycin 500 mg 06/13/24 00:34 06/13/24 00:40 Azithromycin 250 Mg Tablet PO 06/13/24 00:35 500 mg ONCE ONE Administration Lorazepam 0.5 mg 06/12/24 23:48 06/12/24 23:55 Lorazepam 2 Mg/Ml Inj IVP 06/12/24 23:49 0.5 mg ONCE ONE Administration Prednisone 50 mg 06/12/24 22:54 06/12/24 23:07 Prednisone 10 Mg Tablet PO 06/12/24 22:55 50 mg ONCE ONE Administration <Elvira Kiran MD - Last Filed: 06/17/24 14:52> Discontinued Medications Generic Name Dose Route Start Last Admin Trade Name Sophia PRN Reason Stop Dose Admin Acetaminophen 1,000 mg 06/12/24 23:50 06/12/24 23:55 Acetaminophen 500 Mg Tablet PO 06/12/24 23:51 1,000 mg ONCE ONE Administration Albuterol/Ipratropium 1 neb 06/12/24 22:54 06/12/24 23:07 Iprat-Albut 0.5-2.5 Mg/3 Ml Neb IH 06/12/24 22:55 1 neb ONCE ONE Administration Azithromycin 500 mg 06/13/24 00:34 06/13/24 00:40 Azithromycin 250 Mg Tablet PO 06/13/24 00:35 500 mg ONCE ONE Administration Lorazepam 0.5 mg 06/12/24 23:48 06/12/24 23:55 Lorazepam 2 Mg/Ml Inj IVP 06/12/24 23:49 0.5 mg ONCE ONE Administration Prednisone 50 mg 06/12/24 22:54 06/12/24 23:07 Prednisone 10 Mg Tablet PO 06/12/24 22:55 50 mg ONCE ONE Administration <Kathy Ward MD - Last Filed: 06/13/24 00:46> Medical Decision Making Lab Data Lab results reviewed: Yes I reviewed the patient's lab results <Kathy Ward MD - Last Filed: 06/13/24 00:46> Lab results narrative: Labs reassuring. No significant leukocytosis. Viral swab is negative. Cardiac testing negative. <Kathy Ward MD - Last Filed: 06/13/24 00:46> Labs: Lab Results 06/12/24 Range/Units 22:55 WBC 6.12 (4.50-11.00) K/uL RBC 4.72 (4.00-5.20) m/uL Hgb 12.9 (12.0-16.0) gm/dL Hct 41.3 (33.0-51.0) % MCV 88 (80-100) fL MCH 27 (26-34) pg MCHC 31 L (32-36) gm/dL RDW Coeff of Chung 12.6 (11.5-15.5) % Plt Count 182 (140-440) K/uL Neut % (Auto) 51.4 (42.0-72.0) % Lymph % (Auto) 33.8 (20-44) % Green % (Auto) 8.5 (0.0-11.0) % Eos % (Auto) 5.7 (0.0-7.0) % Baso % (Auto) 0.3 (0.0-3.0) % Neut # (Auto) 3.14 (1.7-7.0) K/uL Lymph # (Auto) 2.07 (0.90-2.90) K/uL Green # (Auto) 0.50 (0.00-0.90) K/UL Eos # (Auto) 0.35 (0.00-0.50) K/uL Baso # (Auto) 0.02 (0.00-0.30) K/uL Abs Immat Gran (auto) 0.02 (0.00-0.30) K/uL Imm/Tot Granulo (auto) 0.3 % D-Dimer Quant (PE/DVT) 0.46 (0.00-0.50) ug/ml Sodium 140 (135-149) mmol/L Potassium 3.8 (3.6-5.1) mmol/L Chloride 103 (96-114) mmol/L Carbon Dioxide 30 (20-32) mmol/L Anion Gap 7 (7-15) mEq/L BUN 20 (7-30) mg/dL Creatinine 0.6 (0.5-1.5) mg/dL Estimated Creat Clear 35.47 Estimated GFR 96 ml/min Glucose 116 H (60-115) mg/dL Calcium 9.1 (8.4-10.6) mg/dL Troponin I < 0.01 L (0.01-0.04) ng/mL C-Reactive Protein 0.7 (0.5-1.0) mg/dL NT-Pro-B Natriuret Pep 142 pg/mL SARS-CoV-2 (PCR) Negative SARS-CoV-2 (Negative) Influenza Type A (PCR) Negative PCR FLU A (Negative) Influenza Type B (PCR) Negative PCR FLU B (Negative) RSV (PCR) Negative PCR RSV (Negative) <Elvira Kiran MD - Last Filed: 06/17/24 14:52> Lab Results 06/12/24 Range/Units 22:55 WBC 6.12 (4.50-11.00) K/uL RBC 4.72 (4.00-5.20) m/uL Hgb 12.9 (12.0-16.0) gm/dL Hct 41.3 (33.0-51.0) % MCV 88 (80-100) fL MCH 27 (26-34) pg MCHC 31 L (32-36) gm/dL RDW Coeff of Chung 12.6 (11.5-15.5) % Plt Count 182 (140-440) K/uL Neut % (Auto) 51.4 (42.0-72.0) % Lymph % (Auto) 33.8 (20-44) % Green % (Auto) 8.5 (0.0-11.0) % Eos % (Auto) 5.7 (0.0-7.0) % Baso % (Auto) 0.3 (0.0-3.0) % Neut # (Auto) 3.14 (1.7-7.0) K/uL Lymph # (Auto) 2.07 (0.90-2.90) K/uL Green # (Auto) 0.50 (0.00-0.90) K/UL Eos # (Auto) 0.35 (0.00-0.50) K/uL Baso # (Auto) 0.02 (0.00-0.30) K/uL Abs Immat Gran (auto) 0.02 (0.00-0.30) K/uL Imm/Tot Granulo (auto) 0.3 % D-Dimer Quant (PE/DVT) 0.46 (0.00-0.50) ug/ml Sodium 140 (135-149) mmol/L Potassium 3.8 (3.6-5.1) mmol/L Chloride 103 (96-114) mmol/L Carbon Dioxide 30 (20-32) mmol/L Anion Gap 7 (7-15) mEq/L BUN 20 (7-30) mg/dL Creatinine 0.6 (0.5-1.5) mg/dL Estimated Creat Clear 35.47 Estimated GFR 96 ml/min Glucose 116 H (60-115) mg/dL Calcium 9.1 (8.4-10.6) mg/dL Troponin I < 0.01 L (0.01-0.04) ng/mL C-Reactive Protein 0.7 (0.5-1.0) mg/dL NT-Pro-B Natriuret Pep 142 pg/mL SARS-CoV-2 (PCR) Negative SARS-CoV-2 (Negative) Influenza Type A (PCR) Negative PCR FLU A (Negative) Influenza Type B (PCR) Negative PCR FLU B (Negative) RSV (PCR) Negative PCR RSV (Negative) <Kathy Ward MD - Last Filed: 06/13/24 00:46> Imaging Data Chest x-ray: Attestation: I have reviewed the pertinent imaging results. <Kathy Ward MD - Last Filed: 06/13/24 00:46> My impression: Post pneumonectomy findings, no obvious infiltrate or effusions. No pulmonary edema. <Kathy Ward MD - Last Filed: 06/13/24 00:46> Radiologist's impression: IMPRESSION: 1. No acute cardiopulmonary findings. 2. Irregular nodular density in the right upper lung could be related to the 1st rib costochondral junction versus underlying pulmonary nodule. Consider further evaluation with nonemergent chest CT. <Kathy Ward MD - Last Filed: 06/13/24 00:46> Discharge Plan Discharge Clinical Impression: COPD (chronic obstructive pulmonary disease), Lung nodules <Elvira Kiran MD - Last Filed: 06/17/24 14:52> Patient Disposition: Home w/ Parent or Adult <Elvira Kiran MD - Last Filed: 06/17/24 14:52> Instructions: COPD (Chronic Obstructive Pulmonary Disease) (ED) <Elvira Kiran MD - Last Filed: 06/17/24 14:52> Additional Instructions: Discussed, the tests on your heart and other blood work have come back normal. This is great news. The chest x-ray does not show any signs of pneumonia. I am glad you are feeling somewhat better after the prednisone, Ativan and breathing treatment. As stated, your chest x-ray did show a small nodule on the right side. It does look like scar tissue to me but I do recommend you have a follow-up chest x-ray in 8-12 weeks with her primary care team to re-evaluate this. They may want to order a CT scan if this is still abnormal. I do not have your previous chest x-rays to compare since they have not been done through our health system. It will be your responsibility to schedule an arrange this. I do think that the discomfort and shortness of breath you are having our from a flare-up of COPD, commonly called bronchitis. Your lungs are more vulnerable than the average person. Swabs were negative for influenza, RSV and COVID. We have started you on prednisone. I would like for you to continue taking this daily in the late afternoon, we discussed around 4:00 p.m.. You will have an additional 5 days. I have chosen a medium dose as to not worsen your anxiety si gnificantly. I have also started you on an antibiotic, azithromycin. You will take this every morning. The dose that you will get here in the ED prior to leaving will count as your Tuesday morning dose. Your next dose will be morning. It is very important that you sampler pickup your medications later today so that you have them as the pharmacy will be closed on . Continue your breathing treatments at least 3 times daily, but up to every 2 hours if needed. I have also given you to Ativan tablets in case of anxiety from the prednisone but try not to use these unless absolutely necessary. It is okay to combine melatonin and Tylenol p.m. to help you sleep as well. If you have severe shortness of breath, severe weakness, coughing up large amounts of blood, significant worsening, you should return to emergency department. It will take 7-10 days for your symptoms to improve completely. Follow up with her primary care provider if things are failing to improve in that time frame. <Elvira Kiran MD - Last Filed: 06/17/24 14:52> Activity Level: Activity as Tolerated <Elvira Kiran MD - Last Filed: 06/17/24 14:52> Activity as Tolerated <Kathy Ward MD - Last Filed: 06/13/24 00:46> Discharge Diet: Regular <Elvira Kiran MD - Last Filed: 06/17/24 14:52> Regular <Kathy Ward MD - Last Filed: 06/13/24 00:46> Prescriptions: New azithromycin 250 mg tablet See Rx Instructions .ROUTE .COMPLEX Qty: 6 0RF Rx Instructions: For 250 mg dose pack: take 500 mg today (day 1), then 250 mg for 4 days (days 2-5) prednisone 20 mg tablet 20 mg PO DAILY 5 Days Qty: 5 0RF lorazepam 0.5 mg tablet 0.5 mg PO DAILY PRN (Reason: anxiety) Qty: 2 0RF No Action potassium citrate 10 mEq (1,080 mg) tablet extended release 20 meq PO QDAY albuterol-budesonide 90-80 mcg/actuation HFA aerosol inhaler 2 inh inhalation ONCE PRN Rx Instructions: as a single dose; may repeat up to 6 doses per day (12 inhalations) ipratropium-albuterol 0.5 mg-3 mg(2.5 mg base)/3 mL solution for nebulization 3 ml inhalation Q4-6H PRN omeprazole 40 mg capsule,delayed release(DR/EC) 40 mg PO QDAY lisinopril 5 mg tablet 5 mg PO QDAY fluticasone propionate [Flonase Allergy Relief] 50 mcg/actuation spray,suspension 2 spray intranasal QDAY Rx Instructions: administer into each nostril naloxone 1 mg/mL syringe 1 mg IM ONCE Qty: 2 0RF hydrocortisone 2.5 % cream 1 applic topical BID PRN (Reason: itching) Qty: 30 0RF aspirin [Adult Aspirin Regimen] 81 mg tablet,delayed release (DR/EC) 81 mg PO QDAY cyclobenzaprine 10 mg tablet 10 mg PO QHS PRN (Reason: muscle spasm) Qty: 90 1RF atorvastatin 40 mg tablet 40 mg PO QHS Qty: 90 1RF Eliquis 5 mg tablet 5 mg PO BID Qty: 180 3RF escitalopram oxalate 20 mg tablet 20 mg PO QDAY Qty: 90 1RF cetirizine [Zyrtec] 10 mg tablet 10 mg PO QDAY Qty: 90 3RF alprazolam [Xanax] 0.5 mg tablet 0.5 mg PO QDAY Qty: 30 1RF hydrochlorothiazide 25 mg tablet 12.5 mg PO DAILY prednisone 20 mg tablet 20 mg PO BID 2 Days Qty: 4 1RF prazosin 2 mg capsule 6 mg PO QHS Qty: 90 5RF hydroxyzine HCl 25 mg tablet 25 mg PO QID PRN (Reason: anxiety) Qty: 90 1RF oxycodone-acetaminophen 10-325 mg tablet 1 tab PO BID PRN (Reason: pain) Qty: 20 0RF <Elvira Kiran MD - Last Filed: 06/17/24 14:52> Follow Up/Referrals: Addison Chapin MD [Primary Care Provider] - <Elvira Kiran MD - Last Filed: 06/17/24 14:52> Stand Alone Forms: [facility] Info Instructions <Elvira Kiran MD - Last Filed: 06/17/24 14:52>
[2024-06-12 23:52] LABS: PCR FLU A Negative PCR FLU A (Negative); PCR FLU B Negative PCR FLU B (Negative); PCR RSV Negative PCR RSV (Negative); SARS PCR* Negative SARS-CoV-2 (Negative)
[2024-06-12] MEDS: LORazepam 2 MG/ML inj 0.5 MG IVP (23:55)
[2024-06-12] MEDS: ACETAMINOPHEN 500 MG TABLET 1000 MG PO (23:55)
[2024-06-13] VITALS: PULSE 71; O2SAT 90
[2024-06-13 00:06] LABS: D Dimer Quantitative* 0.46 ug/ml (0.00-0.50)
[2024-06-13] MEDS: AZITHROMYCIN 250 MG TABLET 500 MG PO (00:40)
== END 2024-06-13 00:53 | disposition home or self-care (01) ==
PROVIDERS: Family Medicine; Emergency Provider Family Medicine; PCP Family Medicine
DX: J44.9 Chronic obstructive pulmonary disease, unspecified (principal); R91.1 Solitary pulmonary nodule
CPT/HCPCS: 36415; 71046; 80048; 83880; 84484; 85025; 85379; 86140; 87631; 93005; 94761; 96374; 99284; 99285; A9270; J2060; J7512

== ENCOUNTER 2024-06-29 10:48 | Outpatient (CLI) | payer BC, SELFPAY ==
--- NOTE | 2024-06-29 11:00 | CRLHL7_ITS ---
For Patients: As a result of the Century Cures Act, medical imaging exams and procedure reports are released immediately into your electronic medical record. You may view this report before your referring provider. If you have questions, please contact your health care provider. Indication: Pulmonary nodule Technique: CT Chest WITH 75 CC ISOVUE [address] Please note that all [address] scans at this facility use dose modulation, iterative reconstruction, and/or weight-based dosing when appropriate to reduce radiation dose to as low as reasonably achievable. Comparison: Chest x-ray 06/12/2024 Findings: There is an irregular pulmonary nodule within the medial aspect of the right upper lobe measuring 6.9 x 8.2 millimeters, 10/06. Ill-defined ground-glass nodule present within the right upper lobe more posteriorly measuring 11.4 millimeters, 10/12. Smaller nodules are present elsewhere within both upper lungs. Emphysema. Postop changes left upper lobectomy with hyperinflation of the right lung. The visualized thyroid is within normal limits. No adenopathy. Simple cyst upper pole left kidney measures 1.5 cm. No hiatal hernia. Atherosclerotic changes. Chronic concavity of the T12 superior endplate. Multilevel degenerative disc disease. Scarring within the lateral right kidney. Distention of the pancreatic duct measuring up to 3.5 millimeters. Impression: 8.2 millimeter irregular nodule within the right upper lobe in the setting of underlying emphysema. 11.4 millimeter ground-glass nodule right upper lobe. Additional smaller nodules elsewhere. Follow-up CT chest in 3 months recommended. Dilated pancreatic duct measuring up to 3.5 millimeters, partially visualized. The pancreas is not entirely included on this exam. Recommend CT of the abdomen and pelvis for further evaluation. Please note that all CT scans at this facility use dose modulation, iterative reconstruction, and/or weight-based dosing when appropriate to reduce radiation dose to as low as reasonably achievable. Dictated by Addison Espinosa MD @ 06/29/2024 12:37:47 PM (Electronically Signed)
== END 2024-06-29 10:49 | disposition home or self-care (01) ==
LOC: CT 10:50
PROVIDERS: PCP Family Medicine; Visit Provider Family Medicine
DX: R91.1 Solitary pulmonary nodule (principal); R91.8 Other nonspecific abnormal finding of lung field
CPT/HCPCS: 71260; Q9967

== ENCOUNTER 2024-07-26 00:26 | Emergency (ER) | payer BC, SELFPAY ==
[2024-07-26] VITALS (8 sets, daily range): BP systolic 121–154; BP diastolic 63–90; PULSE 88–100; RESP 18–24; TEMP 37.1–39.2; O2SAT 95–97; BMI 18.9
--- OUTSIDE RECORDS SUMMARY | 2024-07-26 00:30 | XMS_ITS | Referral Summary ---
Author Organization [place] Address [facility] [place] [address] Care Team Providers Care Estimator And Drafter Name Role Phone Addison Chapin MD Primary Care Provider [phone] Encounters Date Type Department Care Team Description 06/22/[address] [phone] Miguelangel Corona MD Results (Results of 05/15/24 Colonoscopy) 05/15/2024 Travel 05/15/2024 9:30 AM CDT - 05/15/2024 10:00 AM CDT Surgery [facility] Endoscopy [address] [place] [phone] Miguelangel Corona MD ESOPHAGOGASTRODUOD ENOSCOPY, WITH BIOPSY 05/15/2024 9:09 AM CDT Anesthesia Event [facility] [address] [place] [phone] Blas Self APRN CRNA Clough, Brock, APRN NEWBORN HEARING SCREENER 05/15/2024 7:42 AM CDT - 05/15/2024 10:04 AM CDT Hospital Encounter [facility] [address] [place] [address] [phone] Miguelangel Corona MD Discharge Disposition: Home or Self Care 04/30/2024 Telephone [facility] [address] 4th [place] [phone] None Procedure (EGD) 04/27/2024 Travel 04/27/2024 4:37 PM CDT - 04/27/2024 8:15 PM CDT Emergency [facility] Emergency Dept [address] [place] [phone] Sierra Gomez MD Esophageal obstruction due to food impaction Discharge Disposition: Home or Self Care from Last 3 Months Allergies Active Allergy Reactions Criticality Noted Date Comments Penicillins Anaphylaxis High 04/27/2024 Sulfa Antibiotics Blisters High 04/27/2024 Blisters in mouth, difficulty breathing Medications oxyCODONE-acetamin ophen (PERCOCET) 10-325 MG per tablet Take 1 tablet by mouth every 6 hours as needed for severe pain. 10 tablet 4 Active ALPRAZolam (XANAX) 0.5 MG tablet Take 1 tablet by mouth daily at 2 pm. 4 Active ELIQUIS ANTICOAGULANT 5 MG tablet 4 Active atorvastatin (LIPITOR) 40 MG tablet Take 40 mg by mouth at bedtime. 4 Active cetirizine (ZYRTEC) 10 MG tablet Take 1 tablet by mouth daily at 2 pm. 4 Active cyclobenzaprine (FLEXERIL) 10 MG tablet TAKE 1 TABLET BY MOUTH EVERY DAY AT BEDTIME NEEDED FOR MUSCLE SPASM 4 Active Active Problems No known active problems Social History Tobacco Use Types Packs/Day Years Used Date Smoking Tobacco: Never Assessed Interpersonal Safety Answer Date Record ed Do you feel physically and e motionally safe where you currently live? Yes 05/15/2024 Within the past 12 months, h ave you been hit, slapped, kicked or otherwise physically hurt by someone? No 05/15/2024 Within the past 12 months, h ave you been humiliated or emotionally abused in other ways by your partner or ex-partner? No 05/15/2024 Comments No Sex and Gender Information Value Date Recorded Sex Assigned at Not on file Legal Sex Female 4:34 PM CDT Gender Identity Not on file Sexual Orientation Not on file Last Filed Vital Signs Vital Sign Reading Time Taken Comments Blood Pressure 123/67 05/15/2024 9:50 AM CDT Pulse 75 05/15/2024 9:50 AM CDT Temperature 36.7 C (98.1 F) 05/15/2024 8:22 AM CDT Respiratory Rate 18 05/15/2024 8:22 AM CDT Oxygen Saturation 98% 05/15/2024 9:50 AM CDT Inhaled Oxygen Concentration - - Weight 40.8 kg (90 lb) 04/27/2024 4:41 PM CDT Height 152.4 cm (5') 04/27/2024 4:41 PM CDT Body Mass Index 17.58 04/27/2024 4:41 PM CDT Plan of Treatment Not on file Procedures Procedure Name Priority Date/Time Associated Diagnosis Comments SURGICAL PATHOLOGY EXAM Routine 05/15/2024 9:18 AM CDT UPPER GI ENDOSCOPY Routine 05/15/2024 9:11 AM CDT UGI ENDOSCOPY DIAG W BIOPSY 05/15/2024 9:11 AM CDT Esophageal obstruction due to food impaction Special Needs No meds to hold - wrongWill hold Eliquis XR CHEST 2 VIEWS STAT 04/27/2024 5:53 PM CDT from Last 3 Months Results * Surgical Pathology Exam (05/15/2024 9:18 AM CDT) Case Report Surgical Pathology Report Case: [id number] Authorizing Provider: Miguelangel Corona MD Collected: 05/15/2024 09:18 AM Ordering Location: [facility] Received: 05/15/2024 09:31 AM [facility] Pathologist: Mouna Mortensen MD Specimen: Esophagus, random esophageal biopsy for EOE 05/17/2024 1:48 PM CDT LABORATORY Final Diagnosis Esophagus, random, biopsies: -Multipiece tissue sample showing squamous mucosa with variable, at most mild, chronic inflammation without eosinophils; special stain for fungal organisms performed and negative -No evidence of columnar mucosa or atypia 05/17/2024 1:48 PM CDT LABORATORY Clinical Information Procedure: ESOPHAGOGASTROD UODENOSCOPY, WITH BIOPSY Pre-op Diagnosis: Esophageal obstruction due to food impaction [T18.128A, W44.F3XA] Post-op Diagnosis: T18.128A, W44.F3XA - Esophageal obstruction due to food impaction [ICD-10-CM] Excerpt from procedure note: Impression: - Esophageal mucosal changes suggestive of eosinophilic esophagitis. No stenosis. D/dx include motility disorder. 05/17/2024 1:48 PM CDT LABORATORY Gross Description A(1). Esophagus, random esophageal biopsy for EOE: The specimen is received in formalin, labeled with the patient's name, medical record number and other identifying information and designated r andom esophagus . It consists of 3 allred soft tissue fragments ranging from 0.1-0.2 cm. Entirely submitted in one cassette. (MICHAEL Braun) 05/15/2024 2:26 PM 05/17/2024 1:48 PM CDT LABORATORY Microscopic Description A formal microscopic examination has been performed. A special stain for fungal organisms (PAS) was done and the results are as described in the final diagnosis. 05/17/2024 1:48 PM CDT LABORATORY Performing Labs The technical component of this testing was completed at [facility]. Stain controls for all stains resulted within this report have been reviewed and show appropriate reactivity. 05/17/2024 1:48 PM CDT LABORATORY Case Images 05/17/2024 1:48 PM CDT LABORATORY Biopsy ESOPHAGEAL STRUCTURE / Unknown 05/15/2024 9:18 AM CDT 05/15/2024 9:31 AM CDT Miguelangel HAWTHORNE - HIEU WU Final Result LABORATORY [facility] Acute Care Lab [address] 1[address] floor, [address] [place] [phone], [facility] [phone] * UPPER GI ENDOSCOPY (05/15/2024 9:11 AM CDT) Upper GI Endoscopy [address] [address] Patient Name: Ibis Nolan Procedure Date: 05/15/2024 9:11 AM Date of : 1955 Admit Type: Outpatient Age: 69 Room: [place] [address] Gender: Female Note Status: Finalized Attending MD: MIGUELANGEL CORONA , , Total Sedation Time: Procedure: Upper GI endoscopy Indications: Dysphagia, Foreign body in the esophagus Providers: MIGUELANGEL CORONA Referring MD: SIERRA GOMEZ MD Medicines: Monitored Anesthesia Care Complications: No immediate complications. Procedure: After obtaining informed consent, the endoscope was passed under direct vision. Throughout the procedure, the patient's blood pressure, pulse, and oxygen saturations were monitored continuously. The Endoscope was introduced through the mouth, and advanced to the second part of duodenum. The patient tolerated the procedure well. Findings: Mucosal changes including crepe paper esophagus were found in the entire esophagus. Esophageal findings were graded using the Eosinophilic Esophagitis Endoscopic Reference Score (EoE-EREFS) as: Edema Grade 1 Present (decreased clarity or absence of vascular markings), Rings Grade 1 Mild (subtle circumferential ridges seen on esophageal distension), Exudates Grade 0 None (no white lesions seen), Furrows Grade 0 None (no vertical lines seen) and Stricture none (no stricture found). Biopsies were obtained from the proximal and distal esophagus with cold forceps for histology of suspected eosinophilic esophagitis. No predominant stricture. Passage of the scope with dil. effect. The stomach was normal. The examined duodenum was normal. Impression: - Esophageal mucosal changes suggestive of eosinophilic esophagitis. No stenosis. D/dx include motility disorder. - Normal stomach. - Normal examined duodenum. - Biopsies were taken with a cold forceps for evaluation of eosinophilic esophagitis. Recommendation: - Await pathology results. - The findings and recommendations were discussed with the patient. Procedure Code(s): --- Professional --- 35338, Esophagogastroduod enoscopy, flexible, transoral; with biopsy, single or multiple Diagnosis Code(s): --- Professional --- K22.89, Other specified disease of esophagus R13.10, Dysphagia, unspecified T18.108A, Unspecified foreign body in esophagus causing other injury, initial encounter CPT copyright 2021 [employer]. All rights reserved. The codes documented in this report are preliminary and upon human resources project manager review may be revised to meet current compliance requirements. Dr. Miguelangel Corona MIGUELANGEL CORONA, 05/15/2024 9:26:55 AM I was physically present for the entire viewing portion of the exam.MIGUELANGEL CORONA Number of Addenda: 0 Note Initiated On: 05/15/2024 9:11 AM RADIOLOGY RESULTS 05/15/2024 9:11 AM CDT Sierra Gomez MD PROCEDURES Final Result RADIOLOGY RESULTS * XR Chest 2 Views (04/27/2024 5:53 PM CDT) Anatomical Region Laterality Modality Chest Digital Radiogra phy 04/27/2024 5:53 PM CDT Impressions 04/27/2024 6:07 PM CDT IMPRESSION: Cardiac silhouette is within normal limits. Left hilar surgical clip. Mild linear left perihilar opacities are favored atelectasis or scarring. No pleural effusion or pneumothorax. Narrative 04/27/2024 6:07 PM CDT EXAM: XR CHEST 2 VIEWS LOCATION: [facility] DATE: 04/27/2024 INDICATION: cp COMPARISON: None. Procedure Note Leon Simons MD - 04/27/2024 EXAM: XR CHEST 2 VIEWS LOCATION: [facility] DATE: 04/27/2024 INDICATION: cp COMPARISON: None. IMPRESSION: Cardiac silhouette is within normal limits. Left hilarsurgical clip. Mild linear left perihilar opacities are favoredatelectasis or scarring. No pleural effusion or pneumothorax. us Sierra Gomez MD IMG DIAGNOSTIC IMAGING ORDERABLE S Final Result from Last 3 Months Insurance BLUE PLUS ADVANTAGE DUAL [facility] BLUE PLUS ADVANTAGE DUAL [facility] Care Teams Estimator And Drafter Relationship Specialty Start Date End Date Addison Chapin MD [facility] [address] [place] [address] PCP - General Family Medicine 06/22/24
--- OUTSIDE RECORDS SUMMARY | 2024-07-26 00:30 | XMS_ITS | Clinical Summary ---
Author Organization [employer] [facility] Address [place], [place] [address] Care Team Providers Care School Secretary Name Role Phone Pcp, No Primary Care Provider Unavailabl e Encounters Date Type Department Care Team Description 04/26/2024 Telephone [facility] [address] [place] [address] Jovan Baltazar MD Late Cancel Appointment from Last 3 Months Social History Tobacco Use Types Packs/Day Years Used Date Smoking Tobacco: Never Assessed Comments Unknown Sex and Gender Information Value Date Recorded Sex Assigned at Not on file Legal Sex Female 6:50 PM CDT Gender Identity Not on file Sexual Orientation Not on file Plan of Treatment Health Maintenance Due Date Last Done Comments Tdap 02/29/1964 Depression screening for age 12+ 1965 BMI (ht and wt on same day) for age 18+ 1971 Hepatitis C screening for age 18-79 1971 Tetanus booster 1973 Colonoscopy through age 75 1998 Lipids for age 45-75 1998 Mammogram for age 45-75 1998 Zoster (shingles) series for age 50+ (1 of 2) 02/29/20 03 DEXA/DXA scan for age 65+ 2018 Pneumococcal series for age 50+ (1 of 1 - PCV) 018 COVID-19 vaccine series ( - 2023- season) 4 Influenza for age 65+ 03/18/2024 RSV vaccine for adults or pr egnancy (1 - 1-dose 75+ series) 02/29/[address] [place] [address] [facility] MR MEDICAID Care Teams School Secretary Relationship Specialty Start Date End Date Pcp, No . PCP - General 04/16/24
--- OUTSIDE RECORDS SUMMARY | 2024-07-26 00:30 | XMS_ITS | Clinical Summary ---
Author Organization [place] Address [address] [facility] [place] [address] Care Team Providers Care Endless Track Vehicle Mechanic Name Role Phone Addison Chapin MD Primary Care Provider Allergies Active Allergy Reactions Criticality Noted Date [...] Active Active Problems No known active problems Encounters Date Type Department Care Team Description 06/22/[address] [phone] Miguelangel Corona MD Results (Results of 05/15/24 Colonoscopy) 05/15/2024 9:30 AM CDT - 05/15/2024 10:00 AM CDT Surgery [facility] [address] [place] [phone] Miguelangel Corona MD ESOPHAGOGASTRODUOD ENOSCOPY, WITH BIOPSY 05/15/2024 9:09 AM CDT Anesthesia Event [facility] [address] [place] [phone] Blas Self APRN CRNA Clough, Brock, APRN CRNA 05/15/2024 7:42 AM CDT - 05/15/2024 10:04 AM CDT Hospital Encounter [facility] [address] [place] [phone] Miguelangel Corona MD Discharge Disposition: Home or Self Care 05/15/2024 Travel 04/30/2024 Telephone [facility] Gastroenterology Clinic [address] [place] [phone] None Procedure (EGD) 04/27/2024 4:37 PM CDT - 04/27/2024 8:15 PM CDT Emergency [facility] Emergency Dept [address] [place] [phone] Sierra Gomez MD Esophageal obstruction due to food impaction Discharge Disposition: Home or Self Care 04/27/2024 Travel from Last 3 Months Social History Tobacco [...] 04/27/2024 4:41 PM CDT Plan of Treatment Health Maintenance Due Date Last Done Comments ADVANCE CARE PLANNING 1955 ANNUAL REVIEW OF HM ORDERS 1955 CT COLONOGRAPHY 1955 DEXA 1955 FIT 1955 FLEX SIG 1955 GLUCOSE 1955 LIPID 1955 MAMMO SCREENING 1955 sDNA (Cologuard) 1955 COLONOSCOPY 1963 COLORECTAL CANCER SCREENING 1963 HEPATITIS C SCREENING 1971 FALL RISK ASSESSMENT 2018 MEDICARE ANNUAL WELLNESS VISIT 2018 ZOSTER IMMUNIZATION (2 of 2) 05/14/2020 03/19/2020 PHQ-2 (once per calendar year) 2023 DTAP/TDAP/TD IMMUNIZATION (4 - Td or Tdap) 12/29/2026 12/29/2016, 01/29/2013, 04/15/2009 RSV VACCINE (1 - 1-dose 75+ series) 02/29/2028 Pneumococcal Vaccine: 50+ Years Completed 12/18/2022, 03/12/2022, 06/15/2016, Additional history exists COVID-19 Vaccine Completed 03/26/2024, 12/2022, 12/18/2022, Additional history exists INFLUENZA VACCINE Completed 03/26/2024, 03/03/2023 HPV IMMUNIZATION Aged Out No longer e ligible based on patient's age to complete this topic MENINGITIS IMMUNIZATION Aged Out No l onger eligible based on patient's age to complete this topic RSV MONOCLONAL ANTIBODY Aged Out No l onger eligible based on patient's age to complete this topic Procedures Procedure Name Priority Date/Time Associated Diagnosis [...] CDT) Case Report Surgical Pathology Report Case: [id number] Authorizing Provider: Miguelangel Corona MD Collected: 05/15/2024 09:18 AM Ordering Location: [facility] Received: 05/15/2024 09:31 AM [facility] Endoscopy Pathologist: Mouna Mortensen MD Specimen: Esophagus, [...] component of this testing was completed at [facility]. Stain controls for all stains resulted within this report have been reviewed and show appropriate reactivity. 05/17/2024 1:48 PM CDT LABORATORY Case Images 05/17/2024 1:48 PM CDT LABORATORY Biopsy ESOPHAGEAL STRUCTURE / Unknown 05/15/2024 9:18 AM CDT 05/15/2024 9:31 AM CDT Miguelangel Corona MD LAB - [facility] Final Result LABORATORY [facility] Acute Care Lab [address] 1[address] floor, [address] [place] [phone], [facility] [phone] * UPPER GI ENDOSCOPY (05/15/2024 9:11 AM CDT) Upper GI Endoscopy [address] [address] Patient Name: Ibis Nolan Procedure Date: 05/15/2024 9:11 AM Date of : 1955 Admit Type: Outpatient Age: 69 Room: [place] [address] Gender: Female Note Status: Finalized Attending MD: [...] the patient. Procedure Code(s): --- Professional --- 66246, Esophagogastroduod enoscopy, flexible, transoral; with biopsy, single or multiple Diagnosis Code(s): --- Professional --- K22.89, Other specified disease of esophagus R13.10, Dysphagia, unspecified T18.108A, Unspecified foreign body in esophagus causing other injury, initial encounter CPT copyright 2021 [employer]. All rights reserved. The codes documented in this report are preliminary and upon adjunct business instructor review may be revised to meet current [...] CDT EXAM: XR CHEST 2 VIEWS LOCATION: [facility] DATE: 04/27/2024 INDICATION: cp COMPARISON: None. Procedure Note Leon Simons MD - 04/27/2024 EXAM: XR CHEST 2 VIEWS LOCATION: [facility] DATE: 04/27/2024 INDICATION: cp COMPARISON: None. IMPRESSION: Cardiac silhouette is within normal limits. Left hilarsurgical clip. Mild linear left perihilar opacities are favoredatelectasis or scarring. No pleural effusion or pneumothorax. Sierra Gomez MD IMG DIAGNOSTIC IMAGING ORDERABLE S Final Result from Last 3 Months Insurance BLUE PLUS ADVANTAGE DUAL [facility] BLUE PLUS ADVANTAGE DUAL [facility] Care Teams Endless Track Vehicle Mechanic Relationship Specialty Start Date End Date Addison Chapin MD [facility] [address] [address] PCP - General Family Medicine 06/22/24
--- OUTSIDE RECORDS SUMMARY | 2024-07-26 00:30 | XMS_ITS | Continuity of Care Document ---
Author Name [facility] User [email or web address] [facility] [employer] Address Unknown Organization Unknown Address Unknown Procedures FILTER APPLIED:Only known Procedures with Onset Date within the last 5 years Procedure Date Procedure Provider Additional Inform ation Status CT UGI ENDOSCOPY DIAG W OR W/O BRUSH/WASH (52959) Completed GLUCOSE CSF (68025) Comp leted Encounters FILTER APPLIED:Only known Encounters with Admission Date within the last 5 years Encounter Location Admission Discharge Billing Code In Flight Refueling Operator Atr lan Emergency [facility] Outpatient [facility]
--- OUTSIDE RECORDS SUMMARY | 2024-07-26 00:30 | XMS_ITS | Encounter Summary ---
Author Organization [place] Address [address] [place] [address] Care Team Providers Care Computer Methods Analyst Name Role Phone Addison Chapin MD Primary Care Provider Reason for Visit * Reason Onset Date Comments Results 06/22/2024 Results of 05/15 Colonoscopy Encounter Details Date Type Department Care Team (Late st Contact Info) Description 06/22/[address] [phone] Miguelangel Deleon MD [address] [place] [phone] Results (Results of 05/15/24 Colonoscopy) Social History Tobacco Use Types Packs/Day Years [...] on file Sexual Orientation Not on file documented as of this encounter Patient Instructions * Patient Instructions* Miguelangel Deleon MD - 06/22/2024 2:52 PM STRIP DEBURRER . P DEBURRER documented in this encounter Miscellaneous Notes * Telephone Encounter - Miguelangel Deleon MD - 07/10/2024 6:35 AM CST ok P DEBURRER * Telephone Encounter - Mary Rashid - 06/25/2024 10:40 AM CST Call returned and patient notified that results were sent out in the mail and to call back GI with any further questions, patient can provide the letter to her PCP as well Thank you, MIGUELANGEL Browne RN [facility] Gastroenterology P DEBURRER * Telephone Encounter - Prema Bauer - 06/22/2024 2:52 PM CST [facility] Phone Message May a detailed message be left on voicemail: yes Reason for Call: Other: Patient called as she has not heard back about the results of her 05/15/24 colonoscopy. The results can be sent to her PCP, Dr. Addison Chapin at [facility] - engineering writer added her PCP to her Care Team today. Action Taken: Message routed to: [facility] Travel Screening: Not Applicable P DEBURRER documented in this encounter Plan of Treatment Not on file documented as of this encounter Visit Diagnoses Not on filedocumented in this encounter Care Teams Computer Methods Analyst Relationship Specialty Start Date End Date Addison Chapin MD [facility] [address]. [place] [address] PCP - General Family Medicine 06/22/24 documented as of this encounter
--- OUTSIDE RECORDS SUMMARY | 2024-07-26 00:32 | XMS_ITS | Clinical Summary ---
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 Name Role Phone MIKE ANN JR Primary Care Physician ISAÍAS Walton Attending Clinician Unavailable FAITH GERBER Attending Clinician UnavailMIKE Kebede JR Attending Clinician Unavailab JASMIN Barr Attending Clinician Unavailable CHADWICK LOREDO Attending Clinician Unavailable KVNG BAH Attending Clinician Unavailable PAL WOODY Attending Clinician Unavailable NEFTALI GERMAN Attending Clinician Unavailab Hieu Mckay Attending Clinician UnavailHieu Casillas Attending Clinician Unavaila Bess Parsons Attending Clinician VERO EDWARDS Attending Clinician Unavailable MITA OLSON Attending Clinician Unavailable JURGEN JOHNSON Attending Clinician Unavailable ZHENG ROLAND Attending Clinician Unavail able QUANG GRIMM Attending Clinician Unavailable SHERRI FERREIRA Attending Clinician Unavailab BYRON Tenorio Attending Clinician Unavail able IMELDA SWAN Attending Clinician Unavailable SHARON WILSON Attending Clinician Unavaila ZAKIA Burton Attending Clinician Unavaila ANGEL Alegria Attending Clinician UnavailCLEOPATRA Oliveira Attending Clinician Unavailable PRIYANKA LIN Attending Clinician Unavailab MOE Garcia Attending Clinician Unavailable BESS COPELAND Attending Clinician Unavailable KUSUM MCKEON Attending Clinician UnavailISAAK Fernández Attending Clinician Unavailable LIZ ELMORE Attending Clinician Unavailable WON OH Attending Clinician Unavailable LUCILLE NEVAREZ Attending Clinician Unavailable FAITH SANTANA Attending Clinician Unavailable JIM SCOTT Attending Clinician UnavailMita Boyer Attending Clinician Unavailable PARTH LEMOS Attending Clinician Unavailable JEN OLIVIA Attending Clinician UnaAMINA Pettit Attending Clinician UnaJAYDEN Carmona Attending Clinician Unavailable MARGE BARBER Attending Clinician Unavailable CARL PALMER Attending Clinician Unavailable MIKE ANN JR Attending Clinician Unavailab SKIP Hernadez Attending Clinician Unavailab JOJO Foy Attending Clinician Unavailable RIC NEAL Attending Clinician Unavailab RACHELE Bush Attending Clinician Unavailable NU ROSS Attending Clinician Unavailable ANGY MOORE Attending Clinician UnavailISAÍAS Wise Attending Clinician Unavailable REX MARIA Attending Clinician Unavailable DAINA LOVELL Attending Clinician Unavailable BENSON FONSECA Attending Clinician Unavailable BENSON FONSECA Attending Clinician Unavailable KAYLAN YADAV Attending Clinician Unavailable APOLLO MORGAN Attending Clinician Unavailable ANTONY GOMEZ Attending Clinician Unavailable DAVID FRANKLIN Attending Clinician Unavailable RAAD TIDWELL Attending Clinician Unavailable Imelda Swan Admitting Clinician Unavailable MIKE ANN JR Admitting Clinician Unavailab Angy Maya Admitting Clinician Unavailab le Payers Payer Name Policy Type Policy Number Effective Date Expira tion Date [facility] DUAL COMPLETE [id number] 2017 00:00:0 0 [place] [facility] [facility] [id number] 2016 00:0 0:00 [facility] COMM[facility] [place] [id number] 2017 00:00:00 2017 00:00:00 [facility] MEDICARE [id number] 2016 00:00:00 20 03-07-31 00:00:00 MEDICARE PART A \T\ B [id number] 2015 00:00:00 2015 0 0:00:00 [facility] [place] [id number] 2015 00:00:00 2016 0 0:00:00 [place] [id number] 2015 00:00: 00 2015 00:00:00 [facility] [id number] 2015 00:00:00 2015 00:00:00 ALANNA [id number] 2020 00:00:00 02-02 00:00:00 MEDICARE COMPLETE [facility] [id number] 2016 00:00:00 Problems Condition Name Condition Details Condition Category Status Onset Date Resolution Date Last Treatment Date Treating Clinician Comments Malignant tumor of lung Malignant Tumor of Lung Problem 01-05 00:00: 00 2023-01-14 12:01:26 Urinary tract infectious disease Urinary Tract Infectious Disease Problem 01-05 00:00: 00 2023-01-14 12:01:26 Blood in urine Blood in Urine Problem 01-05 00:00: 00 2023-01-14 12:01:26 Malignant tumor of lung Malignant Tumor of Lung Problem 01-05 00:00: 00 2023-02-01 12:57:15 Urinary tract infectious disease Urinary Tract Infectious Disease Problem 01-05 00:00: 00 2023-02-01 12:57:15 Blood in urine Blood in Urine Problem 01-05 00:00: 00 2023-02-01 12:57:15 Allergies, Adverse Reactions, Alerts Allergy Name Allergy Type Status Severity Reaction(s) Onset Date Inactive Date Treating Clinician Comments Chantix Allergy to substance Active Diazepam Allergy to substance Active Gabapentin Allergy to substance Active Other SULFA (SULFONAMIDE ANTIBIOTICS) Allergy to substance Active Other Varenicline Allergy to substance Active WELLBUTRIN Allergy to substance Active Arthralgia (joint pain) Social History Smoking Status Start Date Stop Date Heavy Tobacco Smoker Medications Ordered Medication Name Filled Medication Name Start Date Stop Date Current Medication? Ordering Clinician Indication Dosage Frequency Signature (SIG) Comments Components oxyCODONE-A cetaminophe n 10-325 MG TABS oxyCODONE-A cetaminophe n 10-325 MG TABS 01-06 00:00: 00 Yes CARDENASISAÍAS LI Medicare DeaSchedu le:2 MME/Day:6 0 DrugClass :*Opioid Combinati ons DrugSubCl ass:*Opio id Combinati ons Cyclobenzap rine HCl 10 MG TABS Cyclobenzap rine HCl 10 MG TABS 01-05 00:00: 00 Yes ISAÍAS CARDENAS Medicare DeaSchedu le:0 DrugClass :*Central Muscle Relaxants DrugSubCl ass:*Cent ral Muscle Relaxants Cetirizine HCl 10 MG TABS Cetirizine HCl 10 MG TABS 12-28 00:00: 00 Yes NAVEEN MIKE [employer] Insurance DrugClass :*Antihis tamines - Non-Sedat ing DrugSubCl ass:*Anti histamine s - Non-Sedat ing Potassium Chloride ER 10 MEQ TBCR Potassium Chloride ER 10 MEQ TBCR 12-28 00:00: 00 Yes NAVEEN JEFFREY Medicare DrugClass :*Potassi um DrugSubCl ass:*Pota ssium Symbicort 160-4.5 MCG/ACT AERO Symbicort 160-4.5 MCG/ACT AERO 0 12-19 00:00: 00 Yes NAVEEN JEFFREY Medicare DeaSchedu le:0 DrugClass :*Sympath omimetics DrugSubCl ass:*Adre nergic Combinati ons Ipratropium -Albuterol 0.5-2.5 (3) MG/3ML SOLN Ipratropium -Albuterol 0.5-2.5 (3) MG/3ML SOLN 12-13 00:00: 00 Yes NAVEEN JEFFREY Medicare DeaSchedu le:0 DrugClass :*Sympath omimetics DrugSubCl ass:*Adre nergic Combinati ons Albuterol Sulfate HFA 108 (90 Base) MCG/ACT AERS Albuterol Sulfate HFA 108 (90 Base) MCG/ACT AERS 0 12-13 00:00: 00 Yes RAPP, JEFFREY Medicare DeaSchedu le:0 DrugClass :*Sympath omimetics DrugSubCl ass:*Beta Adrenergi cs ALPRAZolam 0.5 MG TABS ALPRAZolam 0.5 MG TABS 12-13 00:00: 00 Yes MIKE ANN Medicare DeaSchedu le:4 DrugClass :*Benzodi azepines* * DrugSubCl ass:*Joseph odiazepin es oxyCODONE-A cetaminophe n 10-325 MG TABS oxyCODONE-A cetaminophe n 10-325 MG TABS 24 00:00: 00 Yes [facility]/Day:6 0 DrugClass :*Opioid Combinati ons DrugSubCl ass:*Opio id Combinati ons hydroCHLORO thiazide 25 MG TABS hydroCHLORO thiazide 25 MG TABS 12-04 00:00: 00 Yes MIKE ANN Medicare DeaSchedu le:0 DrugClass :*Thiazid es and Thiazide- Like Diuretics DrugSubCl ass:*Thia zides and Thiazide- Like Diuretics Lisinopril 5 MG TABS Lisinopril 5 MG TABS 12-04 00:00: 00 Yes MIKE ANN Medicare DeaSchedu le:0 DrugClass :*ERLIN Inhibitor s DrugSubCl ass:*ERLIN Inhibitor s Omeprazole 40 MG CPDR Omeprazole 40 MG CPDR 12-04 00:00: 00 Yes MIKE ANN Medicare DeaSchedu le:0 DrugClass :*Proton Pump Inhibitor s DrugSubCl ass:*Prot on Pump Inhibitor s Cyclobenzap rine HCl 10 MG TABS Cyclobenzap rine HCl 10 MG TABS 12-04 00:00: 00 Yes ISAÍAS CARDENAS Medicare DeaSchedu le:0 DrugClass :*Central Muscle Relaxants DrugSubCl ass:*Cent ral Muscle Relaxants Comirnaty 30 MCG/0.3ML DAYSI Comirnaty 30 MCG/0.3ML DAYSI 12-01 00:00: 00 Yes ARANZA ENCARNACION Medicare DrugClass :*Viral Vaccines* * DrugSubCl ass:*Fay l Vaccines* Cetirizine HCl 10 MG TABS Cetirizine HCl 10 MG TABS 2024-0 5-16 00:00: 00 Yes MIKE ANN Commercial Insurance DrugClass :*Antihis tamines - Non-Sedat ing DrugSubCl ass:*Anti histamine s - Non-Sedat ing Potassium Chloride ER 10 MEQ TBCR Potassium Chloride ER 10 MEQ TBCR 5-11 00:00: 00 Yes NAVEEN JEFFREY Medicare DrugClass :*Potassi um DrugSubCl ass:*Pota ssium Symbicort 160-4.5 MCG/ACT AERO Symbicort 160-4.5 MCG/ACT AERO 5-04 00:00: 00 Yes [facility]KE [facility] :*Sympath omimetics DrugSubCl ass:*Adre nergic Combinati ons ALPRAZolam 0.5 MG TABS ALPRAZolam 0.5 MG TABS 30 00:00: 00 Yes MIKE ANN Medicare DeaSched le:4 DrugClass :*Benzodi azepines* * DrugSubCl ass:*Joseph odiazepin es oxyCODONE-A cetaminophe n 10-325 MG TABS oxyCODONE-A cetaminophe n 10-325 MG TABS -24 00:00: 00 Yes [facility] MME/Day:6 0 DrugClass :*Opioid Combinati ons DrugSubCl ass:*Opio id Combinati ons Cyclobenzap rine HCl 10 MG TABS Cyclobenzap rine HCl 10 MG TABS -22 00:00: 00 Yes CARDENAS TYRUS Medicare DeaSchedu le:0 DrugClass :*Central Muscle Relaxants DrugSubCl ass:*Cent ral Muscle Relaxants Topiramate 25 MG TABS Topiramate 25 MG TABS 4-20 00:00: 00 Yes MIKE ANN [facility] DrugClass :*Anticon vulsants - Misc. DrugSubCl ass:*Anti convulsan ts - Misc. tiZANidine HCl 4 MG TABS tiZANidine HCl 4 MG TABS 4-15 00:00: 00 Yes ISAÍAS CARDENAS Medicare DeaSchedu le:0 DrugClass :*Central Muscle Relaxants DrugSubCl ass:*Cent ral Muscle Relaxants Fluticasone Propionate 50 MCG/ACT SUSP Fluticasone Propionate 50 MCG/ACT SUSP 15 00:00: 00 Yes MIKE ANN Medicare DeaSchedu le:0 DrugClass :*Nasal Steroids* * DrugSubCl ass:*Nasa l Steroids* Cetirizine HCl 10 MG TABS Cetirizine HCl 10 MG TABS 10-30 00:00: 00 Yes MARYCRUZ ANNREY [employer] Insurance DrugClass :*Antihis tamines - Non-Sedat ing DrugSubCl ass:*Anti histamine s - Non-Sedat ing Potassium Chloride ER 10 MEQ TBCR Potassium Chloride ER 10 MEQ TBCR 10-26 00:00: 00 Yes NAVEEN JEFFREY Medicare DrugClass :*Potassi um DrugSubCl ass:*Pota ssium Albuterol Sulfate HFA 108 (90 Base) MCG/ACT AERS Albuterol Sulfate HFA 108 (90 Base) MCG/ACT AERS 05 00:00: 00 Yes NAVEEN JEFFREY Medicare DeaSchedu le:0 DrugClass :*Sympath omimetics DrugSubCl ass:*Beta Adrenergi cs Symbicort 160-4.5 MCG/ACT AERO Symbicort 160-4.5 MCG/ACT AERO 4- 00:00: 00 Yes NAVEEN MIKE Medicare DeaSchedu le:0 DrugClass :*Sympath omimetics DrugSubCl ass:*Adre nergic Combinati ons Prazosin HCl 2 MG CAPS Prazosin HCl 2 MG CAPS 10-17 00:00: 00 Yes NAVEEN JEFFREY Medicare DeaSchedu le:0 DrugClass :*Antiadr energic Antihyper tensives* * DrugSubCl ass:*Anti adrenergi cs - Periphera lly Acting ALPRAZolam 0.5 MG TABS ALPRAZolam 0.5 MG TABS 10-14 00:00: 00 Yes NAVEEN JEFFREY Medicare DeaSchedu le:4 DrugClass :*Benzodi azepines* * DrugSubCl ass:*Joseph odiazepin es oxyCODONE-A cetaminophe n 10-325 MG TABS oxyCODONE-A cetaminophe n 10-325 MG TABS 10-09 00:00: 00 Yes SOARES, TYRUS Medicare DeaSchedu le:2 MME/Day:6 0 DrugClass :*Opioid Combinati ons DrugSubCl ass:*Opio id Combinati ons Topiramate 25 MG TABS Topiramate 25 MG TABS 10-03 00:00: 00 Yes NAVEEN JEFFREY Medicare DeaSchedu le:0 DrugClass :*Anticon vulsants - Misc. DrugSubCl ass:*Anti convulsan ts - Misc. Potassium Chloride ER 10 MEQ TBCR Potassium Chloride ER 10 MEQ TBCR 09-28 00:00: 00 Yes NAVEENP, JEFFREY Medicare DrugClass :*Potassi um DrugSubCl ass:*Pota ssium tiZANidine HCl 4 MG TABS tiZANidine HCl 4 MG TABS 09-28 00:00: 00 Yes [facility] [place] Medicare DeaSchedu le:0 DrugClass :*Central Muscle Relaxants DrugSubCl ass:*Cent ral Muscle Relaxants Prolia 60 MG/ML SOSY Prolia 60 MG/ML SOSY 09-22 00:00: 00 Yes NAVEEN JEFFREY Medicare DeaSchedu le:0 DrugClass :*Bone Density Regulator s DrugSubCl ass:*RANK Ligand (RANKL) Inhibitor s Fluticasone Propionate 50 MCG/ACT SUSP Fluticasone Propionate 50 MCG/ACT SUSP 09-21 00:00: 00 Yes NAVEEN JEFFREY Medicare DeaSchedu le:0 DrugClass :*Nasal Steroids* * DrugSubCl ass:*Nasa l Steroids* Doxycycline Hyclate 100 MG CAPS Doxycycline Hyclate 100 MG CAPS 307 00:00: 00 Yes MIKE ANN Medicare DeaSchedu le:0 DrugClass :*Tetracy clines DrugSubCl ass:*Tetr acyclines Symbicort 160-4.5 MCG/ACT AERO Symbicort 160-4.5 MCG/ACT AERO 3-03 00:00: 00 Yes NAVEEN MIKE Medicare DeaSchedu le:0 DrugClass :*Sympath omimetics DrugSubCl ass:*Adre nergic Combinati ons ALPRAZolam 0.5 MG TABS ALPRAZolam 0.5 MG TABS 3 00:00: 00 Yes NAVEEN JEFFREY Medicare DeaSchedu le:4 DrugClass :*Benzodi azepines* * DrugSubCl ass:*Joseph odiazepin es oxyCODONE-A cetaminophe n 10-325 MG TABS oxyCODONE-A cetaminophe n 10-325 MG TABS 09-10 00:00: 00 Yes ISAÍAS CARDENAS Medicare DeaSchedu le:2 MME/Day:6 0 DrugClass :*Opioid Combinati ons DrugSubCl ass:*Opio id Combinati ons Omeprazole 40 MG CPDR Omeprazole 40 MG CPDR 09-08 00:00: 00 Yes NAVEEN JEFFREY Medicare DeaSchedu le:0 DrugClass :*Proton Pump Inhibitor s DrugSubCl ass:*Prot on Pump Inhibitor s hydroCHLORO thiazide 25 MG TABS hydroCHLORO thiazide 25 MG TABS 09-08 00:00: 00 Yes MIKE ANN Medicare DeaSchedu le:0 DrugClass :*Thiazid es and Thiazide- Like Diuretics DrugSubCl ass:*Thia zides and Thiazide- Like Diuretics Lisinopril 5 MG TABS Lisinopril 5 MG TABS 09-08 00:00: 00 Yes NAVEEN MIKE Medicare DeaSchedu le:0 DrugClass :*ERLIN Inhibitor s DrugSubCl ass:*ERLIN Inhibitor s Topiramate 25 MG TABS Topiramate 25 MG TABS 2-17 00:00: 00 Yes MIKE ANN Medicare DeaSched le:0 DrugClass :*Anticon vulsants - Misc. DrugSubCl ass:*Anti convulsan ts - Misc. Potassium Chloride ER 10 MEQ TBCR Potassium Chloride ER 10 MEQ TBCR 2-14 00:00: 00 Yes NAVEEN JEFFREY Medicare DrugClass :*Potassi um DrugSubCl ass:*Pota ssium Cephalexin 500 MG CAPS Cephalexin 500 MG CAPS 2-09 00:00: 00 Yes NAVEEN JEFFREY Medicare DeaSchedu le:0 DrugClass :*Cephalo sporins - 1st Generatio n DrugSubCl ass:*Ceph alosporin s - 1st Generatio n tiZANidine HCl 4 MG TABS tiZANidine HCl 4 MG TABS 2-04 00:00: 00 Yes CARDENAS TYRUS Medicare DeaSched le:0 DrugClass :*Central Muscle Relaxants DrugSubCl ass:*Cent ral Muscle Relaxants Symbicort 160-4.5 MCG/ACT AERO Symbicort 160-4.5 MCG/ACT AERO 2-02 00:00: 00 Yes MARYCRUZ ANNREY Medicare DeaSched le:0 DrugClass :*Sympath omimetics DrugSubCl ass:*Adre nergic Combinati ons ALPRAZolam 0.5 MG TABS ALPRAZolam 0.5 MG TABS 2-02 00:00: 00 Yes [facility]KE ANN [facility] DrugClass :*Benzodi azepines* * DrugSubCl ass:*Joseph odiazepin es oxyCODONE-A cetaminophe n 10-325 MG TABS oxyCODONE-A cetaminophe n 10-325 MG TABS 1-25 00:00: 00 Yes CARDENAS, ISAÍAS Medicare DeaSched le:2 MME/Day:6 0 DrugClass :*Opioid Combinati ons DrugSubCl ass:*Opio id Combinati ons Topiramate 25 MG TABS Topiramate 25 MG TABS 08-07 00:00: 00 Yes MIKE ANN Medicare DeaSchedu le:0 DrugClass :*Anticon vulsants - Misc. DrugSubCl ass:*Anti convulsan ts - Misc. Ondansetron 4 MG TBDP Ondansetron 4 MG TBDP 08-04 00:00: 00 Yes JASMIN ZIEGLER Medicare DeaSchedu le:0 DrugClass :*5-HT3 Receptor Antagonis ts DrugSubCl ass:*5-HT 3 Receptor Antagonis ts metroNIDAZO LE 500 MG TABS metroNIDAZO LE 500 MG TABS 08-04 00:00: 00 Yes JASMIN ZIEGLER Medicare DeaSchedu le:0 DrugClass :*Anti-in fective Agents - Misc. DrugSubCl ass:*Anti -infectiv e Agents - Misc. levoFLOXaci n 500 MG TABS levoFLOXaci n 500 MG TABS 08-04 00:00: 00 Yes JASMIN ZIEGLER Medicare DeaSchedu le:0 DrugClass :*Fluoroq uinolones DrugSubCl ass:*Fluo roquinolo harry Potassium Chloride ER 10 MEQ TBCR Potassium Chloride ER 10 MEQ TBCR 07-24 00:00: 00 Yes MIKE ANN Medicare DrugClass :*Potassi um DrugSubCl ass:*Pota ssium ALPRAZolam 0.5 MG TABS ALPRAZolam 0.5 MG TABS - 00:00: 00 Yes MIKE ANN Medicare DeaSchedu le:4 DrugClass :*Benzodi azepines* * DrugSubCl ass:*Joseph odiazepin es Symbicort 160-4.5 MCG/ACT AERO Symbicort 160-4.5 MCG/ACT AERO 1- 00:00: 00 Yes MIKE ANN Medicare DeaSchedu le:0 DrugClass :*Sympath omimetics DrugSubCl ass:*Adre nergic Combinati ons Prazosin HCl 2 MG CAPS Prazosin HCl 2 MG CAPS 2022-07 00:00: 00 Yes MIKE ANN Medicare DeaSchedu le:0 DrugClass :*Antiadr energic Antihyper tensives* * DrugSubCl ass:*Anti adrenergi cs - Periphera lly Acting tiZANidine HCl 4 MG TABS tiZANidine HCl 4 MG TABS 2022-07 00:00: 00 Yes CARDENAS TYRUS Medicare DeaSchedu le:0 DrugClass :*Central Muscle Relaxants DrugSubCl ass:*Cent ral Muscle Relaxants oxyCODONE-A cetaminophe n 10-325 MG TABS oxyCODONE-A cetaminophe n 10-325 MG TABS 2022-07 00:00: 00 Yes [facility] TYR[facility] Medicare DeaSchedu le:2 MME/Day:6 0 DrugClass :*Opioid Combinati ons DrugSubCl ass:*Opio id Combinati ons Topiramate 25 MG TABS Topiramate 25 MG TABS 2022-07 00:00: 00 Yes MIKE ANN Medicare DeaSchedu le:0 DrugClass :*Anticon vulsants - Misc. DrugSubCl ass:*Anti convulsan ts - Misc. Albuterol Sulfate HFA 108 (90 Base) MCG/ACT AERS Albuterol Sulfate HFA 108 (90 Base) MCG/ACT AERS 2022-07 00:00: 00 Yes MIKE ANN Medicare DeaSched le:0 DrugClass :*Sympath omimetics DrugSubCl ass:*Beta Adrenergi cs tiZANidine HCl 4 MG TABS tiZANidine HCl 4 MG TABS 2022-07 00:00: 00 Yes CARDENAS TYRUS Medicare DeaSchedu le:0 DrugClass :*Central Muscle Relaxants DrugSubCl ass:*Cent ral Muscle Relaxants Ondansetron 4 MG TBDP Ondansetron 4 MG TBDP 2022-07 00:00: 00 Yes NAVEEN, MIKE Medicare DeaSchedu le:0 DrugClass :*5-HT3 Receptor Antagonis ts DrugSubCl ass:*5-HT 3 Receptor Antagonis ts Potassium Chloride ER 10 MEQ TBCR Potassium Chloride ER 10 MEQ TBCR 2022-07 00:00: 00 Yes NAVEEN JEFFREY Medicare DrugClass :*Potassi um DrugSubCl ass:*Pota ssium ALPRAZolam 0.5 MG TABS ALPRAZolam 0.5 MG TABS 2022-07 00:00: 00 Yes [facility]AVEEN [facility]REY [facility] :*Benzodi azepines* * DrugSubCl ass:*Joseph odiazepin es Immunizations Ordered Immunization Name Filled Immunization Name Date Status Comments Refusal Reason COV-19,mRNA, PF, rosemary-suc, 30mcg/0.3mL COV-19,mRNA, PF, rosemary-suc, 30mcg/0.3mL 2023-12-02 00:00:00 Pneumococcal polysaccharide PPV23 Pneumococcal polysaccharide PPV23 2023-06-13 00:00:00 COV-19,mRNA, PF, rosemary-suc, 30mcg/0.3mL COV-19,mRNA, PF, rosemary-suc, 30mcg/0.3mL 2023-04-22 00:00:00 Influenza, high-dose, quadrivalent Influenza, high-dose, quadrivalent 2023-03-03 00:00:00 RSVpreF, Biv, DT recon, 0.5 mL PF RSVpreF, Biv, DT recon, 0.5 mL PF 2023-03-03 00:00:00 Pneumococcal conjugate PCV 20 Pneumococcal conjugate PCV 20 2022-12-18 00:00:00 COVID-19, mRNA, Bivalent, 50 or 25 mcg COVID-19, mRNA, Bivalent, 50 or 25 mcg 2022-12-18 00:00:00 COV-19,mRNA,LNP-S,PF,3 0-0.3,Bivalent COV-19,mRNA,LNP-S,PF,3 0-0.3,Bivalent 2022-05-19 00:00:00 Influenza, high-dose, quadrivalent Influenza, high-dose, quadrivalent 2022-03-23 00:00:00 Pneumococcal conjugate PCV 20 Pneumococcal conjugate PCV 20 2022-03-12 00:00:00 COV-19,mRNA,LNP-S,PF,3 0-0.3,rosemary-sucrose COV-19,mRNA,LNP-S,PF,3 0-0.3,rosemary-sucrose 2021-10-17 00:00:00 COVID-19, mRNA, PF, 30 mcg/0.3 mL dose COVID-19, mRNA, PF, 30 mcg/0.3 mL dose 2021-04-23 00:00:00 Influenza, high-dose, quadrivalent Influenza, high-dose, quadrivalent 2021-04-23 00:00:00 COVID-19, mRNA, PF, 30 mcg/0.3 mL dose COVID-19, mRNA, PF, 30 mcg/0.3 mL dose 2020-09-27 00:00:00 COVID-19, mRNA, PF, 30 mcg/0.3 mL dose COVID-19, mRNA, PF, 30 mcg/0.3 mL dose 2020-09-06 00:00:00 Zoster (shingles), recombinant Zoster (shingles), recombinant 2020-03-19 00:00:00 Influenza High Dose Trivalent, P-Free Influenza High Dose Trivalent, P-Free 2019-04-05 00:00:00 Influenza, inject, MDCK, quad, p-free Influenza, inject, MDCK, quad, p-free 2017-03-24 00:00:00 Tdap > 7 years Tdap > 7 years 2016-12-29 00:00:00 Pneumococcal conjugate PCV 13 Pneumococcal conjugate PCV 13 2016-06-15 00:00:00 Influenza Trivalent Influenza Trivalent 00:00:00 Influenza Trivalent Influenza Trivalent 00:00:00 Novel [id number], preserve-free Novel [id number], preserve-free 2009-05-29 00:00:00 Vital Signs Vital Name Observation Time Observation Value Commen ts WEIGHT 2021-12-09 10:53:00 1952 oz HEIGHT 2021-11-12 09:17:00 5' 2 ft WEIGHT 2021-11-12 09:17:00 1920 oz WEIGHT 2021-10-15 10:00:00 1920 oz WEIGHT 2021-09-16 09:30:00 0 oz WEIGHT 2021-08-20 15:18:00 1967 oz WEIGHT 2021-08-03 14:19:00 2015 oz WEIGHT 2021-07-21 15:03:00 1999 oz HEIGHT 2021-06-28 12:40:00 5' 2 ft WEIGHT 2021-06-28 12:40:00 2007 oz WEIGHT 2021-06-16 15:42:00 1967 oz WEIGHT 2021-05-14 13:57:00 1904 oz HEIGHT 2021-04-16 15:45:00 5' 2.008 ft WEIGHT 2021-04-16 15:45:00 1899.2 oz WEIGHT 2021-04-15 14:34:00 1951 oz WEIGHT 2021-04-03 12:06:00 1951 oz HEIGHT 2021-03-19 14:23:00 5' 2 ft WEIGHT 2021-03-19 14:23:00 1912 oz HEIGHT 2021-03-04 20:47:00 5' 2 ft WEIGHT 2021-03-04 20:47:00 1929.6 oz WEIGHT 2021-02-19 15:10:00 1856 oz HEIGHT 2021-01-27 11:15:00 5' 2.008 ft WEIGHT 2021-01-27 11:15:00 1939.2 oz WEIGHT 2020-12-25 14:08:00 1947.2 oz WEIGHT 2020-11-27 14:10:00 1952 oz HEIGHT 2020-11-03 06:07:00 5' 2 ft WEIGHT 2020-11-03 06:07:00 1964.74 oz HEIGHT 2020-10-19 20:33:00 5' 2 ft WEIGHT 2020-10-19 20:33:00 1920 oz HEIGHT 2020-10-15 15:54:00 5' 2 ft WEIGHT 2020-10-15 15:54:00 1931.2 oz HEIGHT 2020-09-16 15:37:00 5' 2.008 ft WEIGHT 2020-09-16 15:37:00 2032 oz HEIGHT 2020-09-11 10:07:00 5' 2 ft WEIGHT 2020-09-11 10:07:00 1952 oz WEIGHT 2019-08-16 00:00:00 2140.8 oz HEIGHT 2019-08-09 00:00:00 5' 2 ft WEIGHT 2019-08-09 00:00:00 2328.06 oz WEIGHT 2019-08-02 00:00:00 2192 oz HEIGHT 2019-07-27 00:00:00 5' 2 ft WEIGHT 2019-07-27 00:00:00 2200 oz HEIGHT 2019-07-13 00:00:00 5' 2 ft WEIGHT 2019-07-13 00:00:00 2128 oz WEIGHT 2019-07-05 00:00:00 2196.8 oz WEIGHT 2019-05-21 00:00:00 2259.2 oz WEIGHT 2019-03-22 00:00:00 2320 oz HEIGHT 2019-02-27 00:00:00 5' 2 ft WEIGHT 2019-02-27 00:00:00 2328 oz HEIGHT 2019-02-17 00:00:00 5' 2 ft WEIGHT 2019-02-17 00:00:00 2320 oz WEIGHT 2019-01-22 00:00:00 2286.4 oz WEIGHT 2018-12-22 00:00:00 2320 oz WEIGHT 2018-11-23 00:00:00 2288 oz WEIGHT 2023-09-22 11:08:00 1584 oz HEIGHT 2023-08-25 14:37:00 5' 0 ft WEIGHT 2023-08-25 14:37:00 1576 oz HEIGHT 2023-08-03 18:13:00 5' 0 ft WEIGHT 2023-08-03 18:13:00 1569.68 oz HEIGHT 2023-06-13 09:05:00 5' .709 ft WEIGHT 2023-06-13 09:05:00 1636.8 oz WEIGHT 2023-06-07 11:58:00 1667.2 oz HEIGHT 2023-06-02 09:46:00 5' .709 ft WEIGHT 2023-06-02 09:46:00 1648 oz WEIGHT 2023-05-22 16:22:00 1686.08 oz HEIGHT 2023-04-25 12:08:00 5' .984 ft WEIGHT 2023-04-25 12:08:00 1556.8 oz WEIGHT 2023-03-29 14:15:00 1715.2 oz WEIGHT 2023-03-03 10:33:00 1702.4 oz Diastolic BP 2023-02-01 00:00:00 70 mm[Hg] Height in 2023-02-01 00:00:00 60 in BMI kg/m2 2023-02-01 00:00:00 20.9 kg/m2 Systolic BP 2023-02-01 00:00:00 131 mm[Hg] Weight, Body lb 2023-02-01 00:00:00 106.8 lb Height in 2023-01-14 00:00:00 60 in WEIGHT 2022-12-30 10:30:00 1747.2 oz HEIGHT 2022-12-23 17:40:00 5' .984 ft WEIGHT 2022-12-23 17:40:00 1760 oz Diastolic BP 2022-12-23 00:00:00 77 mm[Hg] Height in 2022-12-23 00:00:00 60 in BMI kg/m2 2022-12-23 00:00:00 21.3 kg/m2 Systolic BP 2022-12-23 00:00:00 132 mm[Hg] Weight, Body lb 2022-12-23 00:00:00 109 lb WEIGHT 2022-12-02 11:55:00 1760 oz HEIGHT 2022-11-11 12:16:00 5' .984 ft WEIGHT 2022-11-11 12:16:00 1760 oz WEIGHT 2022-11-04 10:20:00 1776 oz HEIGHT 2022-09-14 09:06:00 5' .984 ft WEIGHT 2022-09-14 09:06:00 1824 oz WEIGHT 2022-08-19 09:10:00 1902.4 oz WEIGHT 2022-08-12 09:18:00 1872 oz HEIGHT 2022-07-28 16:58:00 5' 1 ft WEIGHT 2022-07-28 16:58:00 1887.14 oz HEIGHT 2022-07-28 15:24:00 5' 1 ft HEIGHT 2022-07-27 18:43:00 5' 1 ft WEIGHT 2022-07-27 18:43:00 1888 oz HEIGHT 2022-06-24 14:42:00 5' 1.5 ft WEIGHT 2022-06-24 14:42:00 1891.2 oz WEIGHT 2022-06-01 08:19:00 1904 oz HEIGHT 2022-05-24 09:56:00 5' 1.496 ft WEIGHT 2022-05-24 09:56:00 1913.6 oz HEIGHT 2022-03-23 12:48:00 5' 1.5 ft WEIGHT 2022-03-23 12:48:00 1961.6 oz HEIGHT 2022-03-12 11:49:00 5' 2.992 ft WEIGHT 2022-03-12 11:49:00 1892 oz WEIGHT 2022-03-09 08:41:00 1920 oz HEIGHT 2022-02-14 17:55:00 5' 3 ft WEIGHT 2022-02-14 17:55:00 1952 oz WEIGHT 2022-02-09 10:57:00 2000 oz HEIGHT 2022-01-25 09:02:00 5' 2.008 ft WEIGHT 2022-01-25 09:02:00 2000 oz WEIGHT 2022-01-12 09:26:00 2016 oz Procedures Procedure Date / Time Performed Performing Clinicia n Device BLADDER SCAN MEASUREMENT OF POST VOID RESIDUAL,NON-IMAGING 2022-12-23 00:00:00 cystoscopy (SURG) 2022-12-23 00:00:00 CT, urogram 2022-12-23 00:00:00 Plan of Treatment Planned Activity Planned Date Details Comments Future Scheduled Test urinalysis , dipstick, auto [code = urinalysis, dipstick, auto] Future Scheduled Test urinalysis , microscopic [code = urinalysis, microscopic] Future Scheduled Test culture, urine [cod e = culture, urine] Future Scheduled Test BMP, serum or plasma [code = BMP, serum or plasma] Reason for Visit EST PATIENT OFFICE VISITEST PATIENT OFFICE VISITCEN CT CHEST W CONTRASTPC EST GENERALEST PATIENT OFFICE VISITCEN CT CHEST W CONTRASTCEN MAMMO 3DCEN DXA BONE DENSITY SPINE HIPPC EST FACILITY DISCHARGEEST PATIENT OFFICE VISITCEN ABD PELV ANASTACIA XR ED/INPATIENTCEN ABD PELVEST PATIENT OFFICE VISITPC EST MEDICARE SUBSEQUENTEST PATIENT OFFICE VISITPC EST ACUTECEN XR ED/INPATIENTEST PATIENT OFFICE VISITPC EST GENERALCEN FL LESS THAN 1 HOURCEN ABD PELVPC EST GENERALCEN CT CHEST W CONTRASTEST PATIENT OFFICE VISITEST PATIENT OFFICE VISIT gbjmzp-zdeifzcgjpxylkgi-ijrsxipakkWVB PATIENT OFFICE VISITMH OFFICE VISIT 60 MINUTEWALK-INBlood in urine; Urinary tract infectious diseaseEST PATIENT OFFICE VISITACH VAS ART LWR EXT DPLX BILATPC EST GENERALEST PATIENT OFFICE VISITMH OFFICE VISIT 60 [address]UTEEST PATIENT OFFICE VISITCEN CT HEAD WO CONTRASTPC EST GENERALEST PATIENT OFFICE VISITCEN CT CHEST W CONTRASTPOST-OP OFFICE VISITMH OFFICE VISIT 60 MINUTEEST PATIENT OFFICE VISITEST PATIENT OFFICE VISITCEN ABD PELVEST PATIENT OFFICE VISITNEW PATIENT OFFICE VISITEST PATIENT OFFICE VISITEST PATIENT OFFICE VISITPC EST GENERALMH OFFICE VISIT 60 MIN[address]ECEN FL LESS THAN 1 HOURPROCEDURE BRIEFEST PATIENT OFFICE VISIT OFFICE VISIT 60 MINUTEPC MEDICARE SUBSEQUENTEST PATIENT OFFICE VISITMH EVALUATIONEST PATIENT OFFICE VISITPC EST GENERALCEN CT CHEST W CONTRASTEST PATIENT OFFICE VISITCEN FL FLUOROSCOPY STAT PROCEDURE BRIEFEST PATIENT OFFICE VISITEST PATIENT OFFICE VISITEST PATIENT OFFICE VISITEST PATIENT OFFICE VISITACH VAS ART LWR EXT DPLX BILATEST PATIENT OFFICE VISITEST PATIENT OFFICE VISITPC EST ACUTEEST PATIENT OFFICE VISITCEN CT CHEST W CONTRASTWALK-INEST PATIENT OFFICE VISITEST PATIENT OFFICE VISITPC PROCEDUREEST PATIENT OFFICE VISITPC FACILITY DISCHARGECEN XR ED/INPATIENTEST PATIENT OFFICE VISITWALK-INEST PATIENT OFFICE VISITNEW PATIENT OFFICE VISITPC MEDICARE SUBSEQUENTCEN MAMMO 3DCEN CT CHEST W CONTRASTEST PATIENT OFFICE VISIT ANASTACIA FL MOBILE FLUORO < 1HRPROCEDURE COMPLEXEST PATIENT OFFICE VISITACH CVOR IMAGINGCEN ABD PELVPC EST ACUTECEN XR ED/INPATIENTPT EVALUATION 60AUDIO TELEMEDICINECEN XR ED/INPATIENTCEN XR ED/INPATIENTCEN CT CHEST W CONTRASTPC NURSE/MAAUDIO TELEMEDICINECEN CT CHEST W CONTRASTCEN XR WALKINCEN CT CHEST W CONTRASTPC FACILITY DISCHARGEPC EST ACUTEEST PATIENT OFFICE VISITEST PATIENT OFFICE VISITCEN XR WALKINEST PATIENT OFFICE VISITCEN XR WALKINCEN XR LUMB SPN FLX/EXT 4 + VPC NURSE/MAEST PATIENT OFFICE VISITCEN XR LUMBAR SPN 2/3 VWPC FACILITY DISCHARGELAB DRAWCEN XR WALKINCEN CT CHEST W CONTRASTEST PATIENT OFFICE VISITCEN XR KNEE 3 VIEW RTPC MEDICARE SUBSEQUENTPROCEDURE BRIEFCEN XR WALKINEST PATIENT OFFICE VISIT Encounters Start Date/Time End Date/Time Encounter Type Admission Type Attending Clinicians Care Facility Care Department Encounter ID 2024-01-06 15:45:59 Outpatient KALYAN [id number] 2 2023-10-03 15:00:45 Raul-sudhakar KALYAN [id number] 2023-09-05 12:50:58 Raul- KALYAN [id number] 4 2182023-08-31 10:40:02 Raul- KALYAN [id number] 4 [id number] 2023-08-08 08:13:55 Outpatient KALYAN [id number] 5 2023-08-05 12:01:12 Outpatient KALYAN [id number] 7 2023-08-03 20:07:39 Raul- KALYAN [id number] 2023-05-24 09:26:47 Outpatient KALYAN [id number] 3 2023-05-22 17:29:09 Raul- KALYAN [id number] 2023-04-15 13:56:00 Raul-sudhakar KALYAN [id number] 3 0929 2023-04-15 07:10:28 Outpatient KALYAN [id number] 8 2023-04-08 13:00:32 Raul-sudhakar KALYAN [id number] 10:29:04 Raul-sudhakar KALYAN [id number] 3 0821 2022-12-02 06:30:41 Outpatient KALYAN [id number] 0 2022-09-14 11:11:26 Raul- KALYAN [id number] 8 2022-09-06 10:35:49 Raul-sudhakar KALYAN [id number] 3 [id number] 21:02:03 Raul- KALYAN [id number] 3 1092022-05-14 14:36:27 Raul- KALYAN [id number] 1028 2022-01-13 10:52:04 Raul- KALYAN [id number] 2 0629 2021-12-25 17:51:35 Raul- KALYAN [id number] 2 0610 2021-07-08 09:26:24 Raul-sudhakar KALYAN [id number] 1222 2021-03-20 11:03:51 Raul- KALYAN [id number] 2023-12-13 15:52:22 2023-12-13 15:52:22 Outpatient ISAÍAS CARDENAS [facility] [id number] 1 2023-11-07 11:43:47 2023-11-07 11:43:47 Outpatient ISAÍAS CARDENAS [facility] [id number] 2023-10-03 11:35:12 2023-10-03 23:59:00 Outpatient FAITH IVERSON [facility] [id number] 2023-09-22 10:08:34 2023-09-22 10:08:34 Outpatient NAVEEN MIKE TEAGUE [address] [id number] 2023-09-08 10:59:02 2023-09-08 10:59:02 Outpatient ISAÍAS CARDENAS [facility] [id number] 2023-09-06 14:09:39 2023-09-06 14:09:39 Outpatient FAITH GERBER [facility] [id number] 2023-09-05 09:25:51 2023-09-05 23:59:00 Outpatient FAITH IVERSON [facility] [id number] 2023-08-31 09:57:25 2023-08-31 23:59:00 Outpatient Reddy ANN JRMARYCRUZMIKE [facility] [id number] 2023-08-31 09:57:07 2023-08-31 23:59:00 Outpatient Reddy NAVEEN TEAGUEMARYCRUZMIKE [facility] [id number] 2023-08-25 14:55:00 2023-08-25 23:59:00 Outpatient Reddy ANN JR MIKE [address] [id number] 2023-08-25 14:26:00 2023-08-25 23:59:00 Outpatient Marco Ann [facility] [id number] 2023-08-11 14:33:49 2023-08-11 14:33:49 Outpatient ISAÍAS CARDENAS [facility] [id number] 2023-08-03 18:07:00 2023-08-04 03:11:00 Emergency E JASMIN ZIEGLER [facility] [id number] 2023-08-03 20:10:44 2023-08-03 23:59:00 Emergency [facility] [id number] 2023-08-03 18:51:08 2023-08-03 20:09:00 Emergency [facility] [id number] 2023-08-03 18:51:17 2023-08-03 18:51:17 Emergency [facility] [id number] 2023-07-04 10:53:36 2023-07-04 10:53:36 Outpatient ISAÍAS CARDENAS [facility] [id number] 2023-06-20 18:52:58 2023-06-20 18:52:58 Outpatient KVNG BAH [address] [id number] 2023-06-20 14:05:45 2023-06-20 14:05:45 Outpatient [facility] [id number] 2023-06-13 15:15:00 2023-06-13 23:59:00 Outpatient MIKE LAURENT JR [address] [id number] 2023-06-13 08:57:00 2023-06-13 23:59:00 Outpatient Marco Ann [facility] [id number] 2023-06-07 11:10:18 2023-06-07 11:10:18 Outpatient ISAÍAS CARDENAS [facility] [id number] 2023-06-03 15:56:14 2023-06-03 15:56:14 Outpatient MIKE ANN JR [address] [id number] 2023-06-02 09:05:40 2023-06-02 09:05:40 Outpatient NEFTALI GERMAN [address] [id number] 2023-05-22 16:33:33 2023-05-22 23:59:00 Emergency [facility]ASMIN [facility] [id number] 2023-05-22 16:10:00 2023-05-22 18:37:00 Emergency JASMIN ARZOLA [facility] [id number] 2023-04-28 10:40:24 2023-04-28 10:40:24 Outpatient ISAÍAS CARDENAS [facility] [id number] 2023-04-25 12:47:00 2023-04-25 23:59:00 Outpatient Reddy NAVEEN MIKE TEAGUE [address] [id number] 2023-04-25 11:45:00 2023-04-25 11:45:00 Outpatient Marco Ann [facility] [id number] 2023-04-15 06:20:54 2023-04-15 23:59:00 Outpatient Reddy CARDENASISAÍAS [facility] [id number] 2023-04-08 09:49:43 2023-04-08 23:59:00 Outpatient Reddy NAVEEN MIKE TEAGUE [facility] [id number] 2023-04-08 16:34:43 2023-04-08 16:34:43 Outpatient KVNG BAH [address] [id number] 2023-03-29 13:45:00 2023-03-29 23:59:[address] [facility] 58 [id number] 2023-03-29 12:14:00 2023-03-29 23:59:00 Outpatient Reddy NAVEEN MIKE TEAGUE [address] [id number] 2023-03-24 12:17:58 2023-03-24 12:17:58 Outpatient MIKE ANN JR [address] [id number] 2023-03-07 08:44:00 2023-03-07 23:59:00 Outpatient Brown Hieudenis Brown Abraham [facility] [id number] 2023-03-07 11:32:46 2023-03-07 11:32:46 Outpatient FAITH GERBER [facility] [id number] 2023-03-03 10:27:26 2023-03-03 10:27:26 Outpatient ISAÍAS CARDENAS [facility] [id number] 2023 23:12:08 2023 23:12:08 Outpatient NAVEEN TEAGUEMIKE [address] [id number] 2023-02-03 13:44:26 2023-02-03 13:44:26 Outpatient ISAÍAS CARDENAS [facility] [id number] 2023-02-01 00:00:00 2023-02-01 00:00:00 Outpatient Bess Olivarez [facility] - PROCEDURE ROOM - [address] [place] [address] [id number] 2023-01-14 00:00:00 2023-01-14 00:00:00 Outpatient Bess Olivarez [facility] Main [id number] 2023-01-06 09:12:19 2023-01-06 09:12:19 Outpatient NEBMETHO NEBMETHO [id number] 2022-12-30 10:15:31 2022-12-30 10:15:31 Outpatient ISAÍAS CARDENAS [facility] [id number] 2022-12-28 14:09:26 2022-12-28 14:09:26 Outpatient VERO EDWARDS [facility] [id number] 2022-12-23 17:33:19 2022-12-23 17:33:19 Outpatient [facility] [id number] 2022-12-23 00:00:00 2022-12-23 00:00:00 Outpatient Bess Olivarez [facility] Main [id number] 2022-12-02 11:26:02 2022-12-02 11:26:02 Outpatient ISAÍAS CARDENAS [facility] [id number] 2022-11-30 10:05:48 2022-11-30 10:05:48 Outpatient [facility] [id number] 2022-11-11 10:45:00 2022-11-11 23:59:00 Outpatient MIKE LAURENT JR, [facility] [id number] 2022-11-11 11:04:04 2022-11-11 11:04:04 Outpatient MIKE ANN JR [address] [id number] 2022-11-04 09:38:22 2022-11-04 09:38:22 Outpatient ISAÍAS CARDENAS [facility] [id number] 2022-10-19 12:42:58 2022-10-19 12:42:58 Outpatient VERO EDWARDS [facility] [id number] 2022-10-08 00:23:40 2022-10-08 00:23:40 Outpatient MIKE ANN JR [address] [id number] 2022-10-05 09:29:24 2022-10-05 09:29:24 Outpatient RACHANA CARDENASUS [facility] [id number] 2022-10-04 15:17:50 2022-10-04 15:17:50 Outpatient [facility] [id number] 2022-09-14 10:28:28 2022-09-14 23:59:00 Outpatient MIKE LAURENT JR [facility] [id number] 2022-09-14 08:52:43 2022-09-14 08:52:43 Outpatient MIKE ANN JR [address] [id number] 2022-09-09 10:32:35 2022-09-09 10:32:35 Outpatient NAVEEN MIKE TEAGUE [address] [id number] 2022-09-09 08:46:46 2022-09-09 08:46:46 Outpatient CARDENAS, ISAÍAS [facility] [id number] 2022-09-06 09:56:37 2022-09-06 23:59:00 Outpatient C OLSONSHRADDHAKURTIS [facility] [id number] 2022-09-06 11:59:17 2022-09-06 11:59:17 Outpatient HIEU BROWN [facility] [id number] 2022-08-19 09:05:17 2022-08-19 09:05:17 Outpatient JURGEN JOHNSON [address] [id number] 2022-08-17 15:39:43 2022-08-17 15:39:43 Outpatient VERO EDWARDS [facility] [id number] 2022-08-12 09:00:00 2022-08-12 09:00:00 Outpatient JESSENIAANGELITO BROWNTAMARA [facility] [id number] 2022-08-12 08:58:53 2022-08-12 08:58:53 Outpatient CARDENAS, ISAÍAS [facility] [id number] 2022-07-28 16:26:00 2022-07-28 22:19:00 Outpatient C ZHENG ROLAND [facility] [id number] 2022-07-28 13:59:59 2022-07-28 13:59:59 Outpatient ZHENG ROLAND [facility] [id number] 2022-07-27 19:04:00 2022-07-27 21:36:00 Emergency E SHUFF, QUANG [facility] [id number] 2022-07-27 20:21:34 2022-07-27 20:21:34 Emergency E MERGENSHERRI [facility] [id number] 2022-06-29 08:33:38 2022-06-29 08:33:38 Outpatient ISAÍAS CARDENAS [facility] [id number] 2022-06-24 14:36:56 2022-06-24 14:36:56 Outpatient ZHENG ROLAND [address] [id number] 2022-05-12 06:37:15 2022-06-07 11:56:25 Outpatient ISAÍAS CARDENAS [facility] [id number] 2022-06-01 07:47:42 2022-06-01 07:47:42 Outpatient ISAÍAS CARDENAS [facility] [id number] 2022-05-24 09:43:01 2022-05-24 09:43:01 Outpatient MIKE ANN JR [address] [id number] 2022-05-18 13:03:41 2022-05-18 13:03:41 Outpatient VERO EDWARDS [facility] [id number] 2022-05-14 07:35:37 2022-05-14 23:59:00 Outpatient C ISAÍAS CARDENAS [facility] [id number] 2022-05-14 08:48:36 2022-05-14 08:48:36 Outpatient ISAÍAS CARDENAS [facility] [id number] 2022-03-31 14:43:38 2022-03-31 14:43:38 Outpatient ISAÍAS CARDENAS [facility] [id number] 2022-03-23 12:44:23 2022-03-23 12:44:23 Outpatient GRACEVERO THOMAS [facility] [id number] 2022-03-12 08:31:00 2022-03-12 23:59:00 Outpatient MIKE LAURENT JR [address] [id number] 2022-03-12 10:28:22 2022-03-12 10:28:22 Outpatient MIKE ANN JR [address] [id number] 2022-03-09 08:27:57 2022-03-09 08:27:57 Outpatient ISAÍAS CARDENAS [facility] [id number] 2022-02-23 12:31:35 2022-02-23 12:31:35 Outpatient GRACEVERO THOMAS [facility] [id number] 2022-02-14 17:48:00 2022-02-14 19:48:00 Emergency E BYRON DERAS [facility] [id number] 2022-02-14 17:03:56 2022-02-14 17:03:56 [facility] [id number] 2022-02-09 10:35:29 2022-02-09 10:35:29 Outpatient ISAÍAS CARDENAS [facility] [id number] 2022-02-02 19:59:12 2022-02-02 19:59:12 Outpatient MIKE ANN JR [address] [id number] 2022-01-25 09:04:00 2022-01-25 23:59:00 Outpatient MIKE LAURENT JR [address] [id number] 2022-01-25 08:35:02 2022-01-25 08:35:02 Outpatient MIKE ANN JR [address] [id number] 2022-01-13 09:07:40 2022-01-13 23:59:00 Outpatient HIEU BALTAZAR [facility] [id number] 2022-01-13 12:06:07 2022-01-13 12:06:07 Outpatient MITA OLSON [facility] [id number] 2022-01-12 09:12:49 2022-01-12 09:12:49 Outpatient CARDENAS, ISAÍAS [facility] [id number] 2021-12-25 17:50:36 2021-12-25 23:59:00 Outpatient ISAÍAS PÉREZ [facility] [id number] 2021-12-25 07:36:18 2021-12-25 07:36:18 Outpatient ISAÍAS CARDENAS [facility] [id number] 2021-12-09 10:37:19 2021-12-09 10:37:19 Outpatient ISAÍAS CARDENAS [facility] [id number] 2021-11-12 09:02:41 2021-11-12 09:02:41 Outpatient ISAÍAS CARDENAS [facility] [id number] 2021-10-15 09:36:59 2021-10-15 09:36:59 Outpatient ISAÍAS CARDENAS [facility] [id number] 2021-09-22 09:08:39 2021-09-22 09:08:39 Outpatient EVANGELISTA SEGURA [facility] [id number] 2021-09-22 09:08:06 2021-09-22 09:08:06 Outpatient [facility] [id number] 2021-09-16 08:42:06 2021-09-16 08:42:06 Outpatient ISAÍAS CARDENAS [facility] [id number] 2021-09-04 15:25:43 2021-09-04 15:25:43 Outpatient MIKE ANN JR [address] [id number] 2021-08-20 14:14:51 2021-08-20 14:14:51 Outpatient ISAÍAS CARDENAS [facility] [id number] 2021-08-10 10:54:28 2021-08-10 10:54:28 Outpatient [facility] [id number] 2021-08-03 08:53:00 2021-08-03 23:59:00 Outpatient MIKE LAURENT JR [address] [id number] 2021-08-03 14:06:17 2021-08-03 14:06:17 Outpatient MIKE ANN JR [address] [id number] 2021-07-21 14:31:43 2021-07-21 14:31:43 Outpatient ISAÍAS CARDENAS [facility] [id number] 2021-07-08 08:34:43 2021-07-08 23:59:00 Outpatient HIEU PRATT [facility] [id number] 2021-07-08 10:02:49 2021-07-08 10:02:49 Outpatient HIEU BROWN [facility] [id number] 2021-06-28 14:10:00 2021-06-28 23:59:00 Outpatient SHARON HAM [address] [id number] 2021-06-28 12:34:16 2021-06-28 12:34:16 Outpatient SHARON WILSON [address] [id number] 2021-06-16 15:29:09 2021-06-16 15:29:09 Outpatient ISAÍAS CRADENAS [facility] [id number] 2021-05-14 13:24:10 2021-05-14 13:24:10 Outpatient ISAÍAS CARDENAS [facility] [id number] 2021-04-16 14:46:27 2021-04-16 14:46:27 Outpatient MIKE ANN JR [address] [id number] 2021-04-15 14:10:43 2021-04-15 14:10:43 Outpatient ISAÍAS CARDENAS [facility] [id number] 2021-04-03 10:16:00 2021-04-03 23:59:00 Outpatient Reddy MIKE ANN JR [address] [id number] 2021-04-03 11:14:12 2021-04-03 11:14:12 Outpatient MIKE ANN JR [address] [id number] 2021-03-30 17:22:18 2021-03-30 17:22:18 Outpatient MIKE ANN JR [address] [id number] 2021-03-24 12:46:17 2021-03-24 12:46:17 Outpatient KVNG BAH [address] [id number] 2021-03-20 09:52:00 2021-03-20 14:11:00 Emergency BYRON DERAS [facility] [id number] 2021-03-20 10:37:05 2021-03-20 10:37:05 Emergency ZAKIA ALEXIS [facility] [id number] 2021-03-19 13:55:18 2021-03-19 13:55:18 Outpatient ISAÍAS CARDENAS [facility] [id number] 2021-03-04 08:08:00 2021-03-04 23:59:00 Outpatient ANGEL D ELA ROSA [address] [id number] 2021-03-04 19:38:18 2021-03-04 19:38:18 Outpatient MILLIGANKEKEEL [address] [id number] 2021-02-19 14:35:44 2021-02-19 14:35:44 Outpatient ISAÍAS CARDENAS [facility] [id number] 2021-01-29 11:33:39 2021-01-29 11:33:39 Outpatient CLEOPATRA ALLEN [address] [id number] 2021-01-27 15:26:00 2021-01-27 23:59:00 Outpatient MIKE LAURENT JR [address] [id number] 2021-01-27 10:55:27 2021-01-27 10:55:27 Outpatient MIKE ANN JR [address] [id number] 2020-12-31 11:16:00 2020-12-31 23:59:00 Outpatient C HIEU BROWN [facility] [id number] 2020-12-31 08:13:19 2020-12-31 11:15:00 Outpatient MIKE LAURENT JR [facility] [id number] 2020-12-31 10:09:07 2020-12-31 10:09:07 Raul- MIKE ANN JR [facility] [id number] 2020-12-31 10:05:41 2020-12-31 10:05:41 Outpatient HIEU BROWN [facility] [id number] 2020-12-31 07:26:09 2020-12-31 08:12:00 Outpatient MITA PERRY [facility] [id number] 2020-12-25 13:27:12 2020-12-25 13:27:12 Outpatient ISAÍAS CARDENAS [facility] [id number] 2020-12-23 08:59:21 2020-12-23 08:59:21 Outpatient ISAÍAS CARDENAS [facility] [id number] 2020-12-19 09:30:50 2020-12-19 23:59:00 Outpatient ISAÍAS PÉREZ [facility] [id number] 2020-12-19 09:33:02 2020-12-19 09:33:02 Raul-sudhakar ISAÍAS CARDENAS [facility] [id number] 2020-12-19 07:25:14 2020-12-19 07:25:14 Outpatient ISAÍAS CARDENAS [facility] [id number] 2020-11-27 13:27:55 2020-11-27 14:44:29 Raul-sudhakar ISAÍAS CARDENAS [facility] [id number] 2020-11-03 05:26:00 2020-11-03 12:13:00 Outpatient IMELDA DOUGLAS [facility] [id number] 2020-11-03 06:56:53 2020-11-03 06:56:53 Outpatient Reddy CASTRO [facility] [id number] 2020-10-24 14:33:19 2020-10-24 14:33:19 Outpatient IMELDA SWAN [facility] [id number] 2020-10-19 20:27:00 2020-10-19 22:31:00 Emergency E PRIYANKA LIN [facility] [id number] 2020-10-15 16:22:00 2020-10-15 19:21:00 Emergency MOE VARGAS [facility] [id number] 2020-10-15 17:35:26 2020-10-15 17:35:26 Raul- MOE VARGAS [facility] [id number] 2020-10-15 16:54:32 2020-10-15 16:54:32 Emergency E ZAKIA MCCOY [facility] [id number] 2020-09-16 10:54:00 2020-09-16 23:59:00 Outpatient Reddy ANN JR MIKE [address] [id number] 2020-09-16 15:13:31 2020-09-16 15:13:31 Outpatient NAVEEN TEAGUE MIKE [address] [id number] 2020-09-11 10:05:00 2020-09-11 13:18:00 Emergency E BESS COPELAND [facility] [id number] 2020-09-11 10:44:40 2020-09-11 10:44:40 Emergency C BESS [facility] [id number] 2020-09-11 10:15:52 2020-09-11 10:15:52 Emergency E KUSUM MCKEON [facility] [id number] 2020-08-25 12:53:37 2020-08-25 12:53:37 Outpatient ISAAK [facility] [id number] 2020-08-25 07:12:12 2020-08-25 07:12:12 Outpatient ISAAK WOOD [facility] [id number] 2020-07-24 13:51:52 2020-07-24 13:51:52 Outpatient NAVEEN TEAGUEMARYCRUZMIKE [address] [id number] 2020-07-19 18:03:00 2020-07-19 19:57:00 Emergency E PRIYANKA LIN [facility] [id number] 2020-07-19 18:28:50 2020-07-19 18:28:50 Emergency E LIZ ELMORE [facility] [id number] 2020-07-19 18:28:46 2020-07-19 18:28:46 Emergency E SELFLIZ [facility] [id number] 2020-06-27 10:04:41 2020-06-27 10:04:41 Outpatient MIKE ANN JR [address] [id number] 2020-05-28 09:34:41 2020-05-28 23:59:00 Outpatient C WON OH [facility] [id number] 2020-05-28 11:39:32 2020-05-28 11:39:32 Outpatient MITA OLSON [facility] [id number] 2020-05-01 16:19:24 2020-05-05 01:06:28 Outpatient LUCILLE NEVAREZ [address] [id number] 2020-05-02 01:26:51 2020-05-02 01:26:51 Outpatient NAVEEN MIKE TEAGUE [address] [id number] 2020-05-01 16:16:07 2020-05-01 16:16:07 Outpatient LUCILLE NEVAREZ [address] [id number] 2020-02-03 12:11:15 2020-02-03 13:53:00 Emergency E QUANG GRIMM [facility] [id number] 2020-01-15 11:58:29 2020-01-19 01:04:56 Outpatient MIKE ANN JR [address] [id number] 2019-12-05 08:26:17 2019-12-05 23:59:00 Outpatient WON DAWN [facility] [id number] 2019-12-05 10:48:41 2019-12-05 10:48:41 Outpatient WON OH [facility] [id number] 2019-11-20 22:51:09 2019-11-20 22:51:09 Outpatient NAVEEN MARYCRUZ TEAGUEREY [address] [id number] 2019-10-19 20:22:26 2019-10-19 20:22:26 Outpatient MIKE ANN JR [address] [id number] 2019-10-09 11:26:27 2019-10-09 11:26:27 Outpatient NAVEEN TEAGUE MIKE [address] [id number] 2019-08-24 09:22:13 2019-08-24 23:59:00 Outpatient C ISAÍAS CARDENAS [facility] [id number] 2019-08-22 08:00:42 2019-08-22 23:59:00 Outpatient C HIEU BROWN [facility] [id number] 2019-08-22 09:39:00 2019-08-22 09:39:00 Outpatient WON OH [facility] [id number] 2019-08-16 15:30:26 2019-08-20 01:04:49 Outpatient MIKE ANN JR [address] [id number] 2019-08-07 11:26:22 2019-08-11 01:05:42 Outpatient MIKE ANN JR [address] [id number] 2019-08-10 16:25:39 2019-08-10 16:25:39 Outpatient FAITH SANTANA [address] [id number] 2019-08-09 13:53:00 2019-08-09 13:53:00 Emergency E QUANG GRIMM [facility] [id number] 2019-08-02 09:48:08 2019-08-06 01:14:04 Outpatient [facility] [id number] 2019-07-27 15:38:00 2019-07-27 15:38:00 Emergency E JIM SOCTT [facility] [id number] 2019-07-20 16:13:28 2019-07-20 16:13:28 Outpatient FAITH SANTANA [address] [id number] 2019-07-13 13:41:10 2019-07-13 17:11:00 Emergency E MOE VARGAS [facility] [id number] 2019-07-05 09:51:55 2019-07-09 01:11:50 Outpatient [facility] [id number] 2019-07-06 08:45:12 2019-07-06 23:59:00 Outpatient Reddy TITUSCARDENASISAÍAS [facility] [id number] 2019-05-21 09:42:43 2019-05-25 01:12:49 Outpatient [facility] [id number] 2019-04-20 11:38:17 2019-04-20 23:59:00 Outpatient RACHANA PÉREZUS [facility] [id number] 2019-04-17 15:53:00 2019-04-17 15:53:00 Outpatient [facility] [id number] 2019-04-10 13:55:59 2019-04-10 23:59:00 Outpatient Reddy CAR[facility]AS [facility] [id number] 2019-04-05 12:12:04 2019-04-09 01:06:58 Outpatient KVNG BAH [address] [id number] 2019-03-22 08:31:48 2019-03-26 01:14:11 Outpatient ISAÍAS [facility] [id number] 2019-02-27 12:39:51 2019-03-03 01:05:[address] [id number] 2019-02-27 11:02:45 2019-03-03 01:05:00 Outpatient MIKE ANN JR [address] [id number] 2019-02-14 07:57:03 2019-02-18 01:09:55 Outpatient Reddy Mita Olson [facility] [id number] 2019-02-17 19:09:49 2019-02-17 20:50:00 Emergency E DELIA PRIYANKA [facility] [id number] 2019-02-16 10:29:18 2019-02-16 23:59:00 Outpatient Reddy CARDENASISAÍAS [facility] [id number] 2019-02-15 10:13:22 2019-02-15 10:13:22 Outpatient HIEU BROWN [facility] [id number] 2019-02-14 07:57:25 2019-02-14 07:57:25 Outpatient Reddy ABRAM OLSON [facility] [id number] 2019-01-22 08:21:03 2019-01-26 01:13:17 Outpatient [facility] [id number] 2018-12-22 12:22:39 2018-12-26 01:05:[address] [id number] 2018-12-22 11:00:10 2018-12-26 01:05:04 Outpatient MIKE ANN JR [address] [id number] 2018-12-22 10:54:10 2018-12-22 23:59:00 Outpatient MIKE LAURENT JR [address] [id number] 2018-12-04 10:15:18 2018-12-05 01:17:20 Outpatient [facility] [id number] 2018-12-01 12:16:10 2018-12-01 23:59:00 Outpatient ISAÍAS PÉREZ [facility] [id number] 2018-11-23 08:05:20 2018-11-27 01:10:32 Outpatient [facility] [id number] 2018-09-25 08:04:11 2018-09-29 01:11:40 Outpatient [facility] [id number] 2018-09-12 13:37:31 2018-09-12 13:37:31 Outpatient MIKE ANN JR [address] [id number] 2018-08-25 12:37:14 2018-08-29 01:05:15 Outpatient PARTH LEMOS [address] [id number] 2018-08-28 10:08:16 2018-08-28 10:08:16 Outpatient JEN OLIVIA [address] [id number] 2018-08-18 07:58:36 2018-08-22 01:09:00 Outpatient Reddy Whitney Shraddhakurtis Santiago [facility] [id number] 2018-08-18 08:00:18 2018-08-18 23:59:00 Outpatient Reddy WHITNEY SHRADDHAVINCENT [facility] [id number] 2018-08-18 10:03:14 2018-08-18 10:03:14 Outpatient WHITNEY SHRADDHAVINCENT [facility] [id number] 2018-08-03 01:49:12 2018-08-03 01:49:12 Outpatient MIKE ANN JR [address] [id number] 2018-07-27 10:06:11 2018-07-31 01:11:26 Outpatient [facility] [id number] 2018-06-30 11:43:34 2018-07-04 01:10:57 Outpatient ISAÍAS CARDENAS [facility] [id number] 2018-06-30 08:59:40 2018-06-30 23:59:00 Outpatient ISAÍAS PÉREZ [facility] [id number] 2018-06-22 08:39:54 2018-06-26 01:05:02 Outpatient MIKE ANN JR [facility] [id number] 2018-06-26 00:12:55 2018-06-22 23:59:00 Outpatient MIKE LAURENT JR [facility] [id number] 2018-06-22 07:56:22 2018-06-22 23:59:00 Outpatient MIKE LAURENT JR [facility] [id number] 2018-06-13 08:04:10 2018-06-13 23:59:00 Outpatient MIKE LAURENT JR [facility] [id number] 2018-06-13 08:04:00 2018-06-13 08:04:00 Outpatient MIKE LAURENT JR [facility] [id number] 2018-05-30 08:21:13 2018-05-30 09:12:30 Outpatient ISAÍAS CARDENAS [facility] [id number] 2018-05-16 08:54:02 2018-05-20 01:05:13 Outpatient CIERRA BOWMANLAURA [facility] [id number] 2018-05-19 17:58:31 2018-05-19 17:58:31 Outpatient MIKE ANN JR [facility] [id number] 2018-05-15 08:48:19 2018-05-19 01:04:33 Outpatient MIKE ANN JR [facility] [id number] 2018-05-16 08:44:55 2018-05-16 08:44:55 Outpatient JAYDEN CARLISLE [facility] [id number] 2018-05-15 15:12:03 2018-05-15 23:59:00 Outpatient Reddy SPENCERP MIKE TEAGUE [facility] [id number] 2018-05-01 09:25:11 2018-05-05 01:08:08 Outpatient Mita Perry [facility] [id number] 2018-05-02 11:13:38 2018-05-02 11:13:38 Outpatient ABRAM OLSON [facility] [id number] 2018-05-01 09:25:29 2018-05-01 23:59:00 Outpatient ABRAM PERRY [facility] [id number] 2018-04-27 13:37:39 2018-05-01 01:04:37 Outpatient PARTH LEMOS [facility] [id number] 2018-04-25 08:02:03 2018-04-29 01:08:58 Outpatient ISAÍAS CARDENAS [facility] [id number] 2018-04-18 10:53:04 2018-04-22 01:05:10 Outpatient AMINA BOWMAN [facility] [id number] 2018-04-18 12:51:43 2018-04-18 23:59:00 Outpatient AMINA ROBLES [facility] [id number] 2018-04-03 09:51:25 2018-04-07 01:05:06 Outpatient MARGE BARBER [facility] [id number] 2018-04-05 06:11:00 2018-04-05 11:07:00 Outpatient AMINA ROBLES [facility] [id number] 2018-04-03 17:51:21 2018-04-03 23:59:00 Outpatient MIKE LAURENT JR [facility] [id number] 2018-03-27 08:16:11 2018-03-27 08:43:12 Outpatient ISAÍAS CARDENAS [facility] [id number] 2018-03-21 09:28:55 2018-03-25 01:07:37 Outpatient Marco Laurent [facility] [id number] 2018-03-16 08:52:34 2018-03-20 01:04:35 Outpatient MIKE ANN JR [facility] [id number] 2018-03-13 13:47:22 2018-03-17 01:05:22 Outpatient PARTH LEMOS [facility] [id number] 2018-03-16 22:34:52 2018-03-16 23:59:00 Outpatient MIKE LAURENT JR [facility] [id number] 2018-03-16 11:13:40 2018-03-16 22:33:00 Outpatient MIKE LAURENT JR [facility] [id number] 2018-03-16 22:32:06 2018-03-16 22:32:06 Outpatient MIKE ANN JR [facility] [id number] 2018-02-27 12:19:10 2018-02-27 12:19:10 Outpatient CARL PALMER [facility] [id number] 2018-02-09 11:49:43 2018-02-13 01:05:08 Outpatient AMINA BOWMAN [facility] [id number] 2018-02-01 13:37:36 2018-02-05 01:05:59 Outpatient PARTH LEMOS [facility] [id number] 2018-01-26 08:24:26 2018-01-26 08:53:50 Outpatient ISAÍAS CARDENAS [facility] [id number] 2018-01-13 10:13:22 2018-01-17 01:08:29 Outpatient ISAÍAS CARDENAS [facility] [id number] 2018-01-15 17:28:42 2018-01-15 17:28:42 Outpatient MIKE ANN JR [facility] [id number] 2018-01-13 07:39:29 2018-01-13 23:59:00 Outpatient ISAÍAS PÉREZ [facility] [id number] 2017-12-16 00:14:08 2017-12-16 00:14:08 Outpatient MIEK ANN JR [facility] [id number] 2017-12-07 14:38:03 2017-12-07 14:38:03 Outpatient BRIANDAOLIVEREN [facility] [id number] 2017-11-28 07:19:15 2017-11-28 08:30:13 Outpatient ISAÍAS CARDENAS [facility] [id number] 2017-11-22 10:02:23 2017-11-26 01:04:45 Outpatient JOJO FREIRE [facility] [id number] 2017-11-18 14:19:41 2017-11-22 01:04:22 Outpatient VAL RIC [facility] [id number] 2017-11-17 19:44:40 2017-11-17 21:04:00 Emergency E PRIYANKA LIN [facility] [id number] 2017-11-10 16:31:58 2017-11-10 16:31:58 Outpatient RACHELE MARX [facility] [id number] 2017-11-01 10:29:12 2017-11-01 23:59:00 Outpatient MIKE LAURENT JR [facility] [id number] 2017-10-27 11:34:37 2017-10-27 11:34:37 Outpatient ABRAM OLSON [facility] [id number] 2017-10-27 11:24:27 2017-10-27 11:24:27 Outpatient RACHELE MARX [facility] [id number] 2017-10-24 15:43:47 2017-10-24 15:43:47 Outpatient NU ROSS [facility] [id number] 2017-10-11 09:48:00 2017-10-19 13:30:00 Inpatient ANGY RUIZ [facility] [id number] 2017-10-05 11:09:40 2017-10-05 11:09:40 Outpatient NU ROSS [facility] [id number] 2017-10-03 13:26:51 2017-10-03 13:26:51 Outpatient ANGY MOORE [facility] [id number] 2017-09-29 11:21:05 2017-09-29 11:21:05 Outpatient ANGY MOORE [facility] [id number] 2017-09-29 10:21:54 2017-09-29 10:21:54 Outpatient JOSE ISAÍAS [facility] [id number] 2017-09-23 12:54:02 2017-09-23 12:54:02 Outpatient NU ROSS [facility] [id number] 2017-09-21 13:07:01 2017-09-21 13:07:01 Outpatient NU ROSS [facility] [id number] 2017-09-21 13:05:02 2017-09-21 13:05:02 Outpatient NU ROSS [facility] [id number] 2017-09-12 15:47:30 2017-09-12 15:47:30 Outpatient TRINIDADI [facility] [id number] 2017-09-08 17:03:08 2017-09-08 17:03:08 Outpatient ISAÍAS CARDENAS [facility] [id number] 2017-09-08 16:19:49 2017-09-08 16:19:49 Outpatient NU ROSS [facility] [id number] 2017-09-08 15:41:39 2017-09-08 15:41:39 Outpatient NU ROSS [facility] [id number] 2017-09-07 12:44:54 2017-09-07 12:44:54 Outpatient DAINA LOVELL [facility] [id number] 2017-09-05 13:22:41 2017-09-05 13:22:41 Outpatient [facility]U [facility]S [facility] [id number] 2017-09-05 13:20:08 2017-09-05 13:20:08 Outpatient NU [facility]S [facility] [id number] 2017-09-01 13:06:12 2017-09-01 13:06:12 Outpatient NU ROSS [facility] [id number] 2017-08-31 14:40:29 2017-08-31 14:40:29 Outpatient RACHELE MARX [facility] [id number] 2017-08-30 11:06:50 2017-08-30 23:59:00 Outpatient Reddy S[facility]PH[facility]BENSON [facility] [id number] 2017-08-30 15:52:21 2017-08-30 15:52:21 Outpatient BENSON FONSECA [facility] [id number] 2017-08-26 15:40:13 2017-08-26 15:40:13 Outpatient B[facility]SON FONSECA [facility] [id number] 2017-08-26 09:42:40 2017-08-26 09:42:40 Outpatient NU ROSS [facility] [id number] 2017-08-26 09:37:14 2017-08-26 09:37:14 Outpatient NU ROSS [facility] [id number] 2017-08-26 09:15:22 2017-08-26 09:15:22 Outpatient VICENTA KAYLAN [facility] [id number] 2017-08-26 08:34:31 2017-08-26 08:34:31 Outpatient KAYLAN YADAV [facility] [id number] 2017-08-25 08:36:38 2017-08-25 08:36:38 Outpatient JAIMEPHAM BENSON [facility] [id number] 2017-08-22 20:14:52 2017-08-22 20:14:52 Outpatient MIKE ANN JR[facility] [id number] 2017-08-16 11:43:14 2017-08-16 11:43:14 Outpatient MIKE ANN JR[facility] [id number] 2017-08-12 14:15:28 2017-08-16 01:04:59 Outpatient MIKE ANN JR[facility] [id number] 2017-08-15 12:54:32 2017-08-15 23:59:00 Outpatient C APOLLO MORGAN [facility] [id number] 2017-08-15 08:50:07 2017-08-15 12:44:00 Outpatient MIKE LAURENT JR [facility] [id number] 2017-08-15 12:38:46 2017-08-15 12:38:46 Outpatient FAITH SANTANA [facility] [id number] 2017-08-13 04:12:34 2017-08-13 23:59:00 Outpatient MIKE LAURENT JR [facility] [id number] 2017-08-12 03:18:12 2017-08-12 23:59:00 Outpatient MIKE LAURENT JR [facility] [id number] 2017-08-06 16:44:42 2017-08-06 19:49:00 Emergency E ANTONY GOMEZ [facility] [id number] 2017-08-01 07:29:44 2017-08-05 01:10:40 Outpatient ISAÍAS CARDENAS [facility] [id number] 2017-08-04 12:32:46 2017-08-04 12:32:46 Outpatient MIKE ANN JR [facility] [id number] 2017-08-02 18:45:58 2017-08-02 18:45:58 Outpatient KVNG BAH [facility] [id number] 2017-08-01 10:45:43 2017-08-01 23:59:00 Outpatient C RIGOBERTO DAVID [facility] [id number] 2017-08-01 10:45:32 2017-08-01 23:59:00 Outpatient Reddy FRANKLIN DAVID [facility] [id number] 2017-07-25 13:44:56 2017-07-29 01:05:46 Outpatient FREIREJOJO [facility] [id number] 2017-07-27 00:35:21 2017-07-27 00:35:21 Outpatient MIKE ANN JR [facility] [id number] 2017-07-27 00:35:21 2017-07-27 00:35:21 Outpatient MIKE ANN JR [facility] [id number] 2017-07-25 17:21:42 2017-07-25 17:21:42 Outpatient FAITH SANTANA [facility] [id number] 2017-07-23 18:39:47 2017-07-23 21:45:00 Emergency E RAAD TIDWELL [facility] [id number] 2017-07-05 20:36:18 2017-07-09 10:00:00 Inpatient MIKE GARIBAY JR, [facility] [id number] 2017-07-01 20:54:38 2017-07-03 13:04:00 Inpatient E MIKE ANN JR, [facility] [id number] 2017-06-03 12:12:53 2017-06-07 15:32:00 Inpatient MIKE GARIBAY JR, [facility] [id number] 2017-03-04 18:51:00 2017-03-04 21:21:00 Emergency RAAD UMANZOR [facility] [id number] 2017-01-07 10:24:28 2017-01-07 10:24:28 Outpatient MIKE ANN JR, [facility] [id number] Results Test Description Test Time Test Comments Text Results Atomic Results Result Comments CT CHEST WITH CONTRAST 2023-10-03 14:59:30 TO [place] for [facility], CT Chest with Contrast/Jorge Engel RN REASON FOR EXAM: Lung cancer, follow-up.COMPARISON: CT chest 4DISCUSSION: TECHNIQUE: Multiple axial CT images obtained from the thoracic inlet through the upper abdomen after administration of 75 ml Isovue-370 IV contrast. Sagittal and coronal reformatted images were reviewed. FINDINGS: Thoracic inlet soft tissue structures are unremarkable. No evidence of axillary lymphadenopathy. Persistent mediastinal shift to the left, similar to prior exam, likely secondary to prior lobectomy. Elevation of the left hemidiaphragm is redemonstrated. 6 mm prevascular lymph node is unchanged in the superior mediastinum.Heart size is within normal limits. No pericardial effusion. Moderate coronary artery calcification redemonstrated. Moderate diffuse calcification of the visualized thoracic aorta. Stable mildly enlarged central pulmonary arteries, not significantly changed. No pathologically enlarged mediastinal lymph nodes. Mild wall thickening of the esophagus is unchanged, particularly in the mid to distal esophagus.Partial visualization of the structures of the upper abdomen including the liver and spleen are grossly unremarkable. Stable left renal cyst partially visualized. Mild fullness of the adrenal glands is unchanged. Lungs:Status post left upper lobectomy. Postsurgical changes within the hilum. Redemonstration of mild central bronchial wall thickening bilaterally, not significantly changed. Hyperexpansion of the bilateral lung butterfield with diffuse centrilobular emphysematous changes. No evidence of pneumothorax or significant pleural effusion. Significant scarring noted in the left lung base with mild apical pleural thickening.Lung nodules:Stable 8 mm right upper lobe medial nodule (image 32 series 3)Stable 10 mm groundglass opacity in the right upper lobe (image 40 series 3)Stable 6 mm groundglass opacity inferior right upper lobe (image 49 series 3)Stable 5 mm left upper lobe nodule (image 30 series 3)Stable 5 mm anterolateral left lower lobe pulmonary nodule (image 35 series 3)Stable 7 mm anterior left lower lobe pulmonary nodule (image 42 series 3)Stable 4 mm right lower lobe medial pulmonary nodule (image 83 series 3)Micronodular to be within the base of the left lower lobe, not significantly changed.Bones: Moderate diffuse degenerative changes of the visualized spine. No evidence of acute osseous abnormality or new suspicious osseous lesions.IMPRESSION:: Stable pulmonary nodules, as above.Micronodularity within the base of the left lower lobe, somewhat improved, likely infectious or inflammatory process.Postsurgical changes from left upper lobectomy. Marked diffuse centrilobular emphysema.Other incidental findings as above.Continued pulmonary surveillance recommended.Table formatting from the original note was not included.Non-small cell lung cancer, monitor Dx: Non-small cell lung cancer, unspecified laterality; Pulmonary nodules Isovue [id number] CT CHEST WITH CONTRAST 2023-09-05 12:49:45 CT chest with contrast S. [place]/ Amelie/ MRwichoRN No contrast allergy/ ins [facility] medicare EXAM: CT CHEST WITH CONTRASTINDICATION: 68 years Female with Malignant neoplasm of upper lobe, left bronchus or lungOther nonspecific abnormal finding of lung fieldCOMPARISON: CT 03/07/2023FINDINGS:Visualized lower neck appears unremarkable. Axilla is unremarkable.Mediastinum is shifted towards the left, similar to prior exam. Elevation of the left hemidiaphragm, similar to prior exam. 6 mm prevascular lymph node, unchanged. No axillary lymphadenopathy.Heart size is within normal limits. No pericardial effusion. Moderate coronary artery calcifications. Moderate calcifications of the thoracic aorta and branch vessels. Pulmonary arteries are mildly enlarged with the right main pulmonary artery measuring 1.9 cm in diameter, similar to prior exam. No mediastinal lymphadenopathy.Mildly thickened esophagus, similar to prior exam.No significant abnormality identified within the included upper abdomen. Left renal cyst measuring just above simple fluid density but similar in size to prior exam, incidentally noted. Mildly thickened adrenal glands, similar to prior exam.Degenerative changes within the spine. No acute or suspicious osseous abnormality. T12 superior endplate compression deformity appears similar to prior exam.LUNGS:Status post left upper lobectomy. Postsurgical changes of the hilum unremarkable. Mild central bronchial wall thickening within both lungs can be seen with COPD. Mild apical predominant emphysema again noted.Scattered pulmonary nodules with reference nodules as follows:* Stable 8 mm nodule medial right upper lobe (image 32 series 3).* Stable 11 mm groundglass opacity right upper lobe (image 37 series 3).* Stable 6 mm groundglass nodule more inferiorly within the right upper lobe (image 47 series 3).* Stable 5 mm nodule anterior left lower lobe (image 30 series 3).* Stable 5 mm nodule anterolateral left lower lobe (image 36 series 3).* Stable 7 mm nodule anterior left lower lobe (image 42 series 3).* New 4 mm nodule right lower lobe abutting the major fissure (image 81, series 3)Increased subsegmental atelectasis and micronodularity within the basal left lower lobe. Nodules are between 1 and 3 mm in size and predominantly within the periphery of the lung.IMPRESSION:1. New right lower lobe nodule and increased micronodularity within the basal left lower lobe, possibly infectious/inflammatory small airways disease.2. Additional previously seen nodules have not significantly changed from prior exam.3. Stable postsurgical changes of left upper lobectomy.4. 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 Images were reviewed with R2 CAD.BREAST DENSITY: B: There are scattered areas of fibroglandular density.FINDINGS:Right breast: There are no suspicious masses, architectural distortion, or clustered microcalcifications. Benign calcification in the right breast.Left breast: There are no suspicious masses, architectural distortion, or clustered microcalcifications. Benign calcification in the left breast.IMPRESSION:: Benign calcification both breasts without suspicious abnormality in either breast.Overall final assessmentBI-RADS 2 - Benign.Dense breast: No.RECOMMENDATION: Screening mammogram in 1 year.Results letter will be sent to the patient.Reminder letter will be sent to the patient at the time of next screening mammogram. DXA BONE DENSITY SPINE AND HIP 2023-08-31 10:38:45 COMPARISON: DEXA scan 01/17/2017.REASON FOR EXAM: Encounter for screening for malignant neoplasm of colonEncounter for screening for malignant neoplasm of rectumAsymptomatic menopausal stateDISCUSSION:Bone densitometry of the right hip and left forearm was performed in the AP projection using dual-energy x-ray absorptiometry.Bone mineral density of the total right hip is 0.576 g/cm2 with a T-score of -3.0. There has been a -20.6 % bone mineral density change from the prior exam, statistically significant.Bone mineral density of the distal 1/3 of the left forearm is 0.624 g/cm2 with a T-score of -1.2. The T-score is the number of standard deviations from the (mean) peak bone density achieved by young adults.The World Health Organization defines osteoporosis on the basis of T-scores: T-score above - 1.1 is normal, T-score between -1.1 and -2.5 is considered osteopenia. T-score at or below - 2.5 is considered osteoporosis.IMPRESSION:: Osteoporosis. Fracture risk is increased. IVicente, have personally reviewed the images and the resident's report and agree with the interpretation. Vit B12 2023-08-26 01:04:00 Vitamin B12 (test code = B12) 330 pg/ml [id number] [id number] 00:49:00* Test Item Value Reference Range Comments TSH, 3rd Generation (test code = TSH3) 1.191 UIU/ml 0. 550-4.780 BMP with [id number] 00:43:00* Test Item Value Reference Range Comments Glucose (test code = GLUC) 89 mg/dl 70-100 For the purpose of classification, fasting Glucose from 100-125 mg/dl is considered impaired fasting Glucose (Pre-Diabetic) by the [place] [employer].Fasting Glucose > 125 mg/dl is indicative of Diabetes Mellitus, but must be confirmed. BUN (test code = BUN) 14 mg/dl 6-24 Creatinine (test code = CREAT) 0.60 mg/dl 0.50-1.10 Creatinine assay is IDMS-traceable. Sodium (test code = NA) 141 mmol/L 135-145 Potassium (test code = K) 3.7 mmol/L 3.7-5.1 Chloride (test code = CL) 111 mmol/L 96-110 CO2 (test code = CO2) 28.0 mmol/L 22.0-32.0 AGAP (test code = AGAP) 6 mmol/L <=20 Calcium (test code = CA) 8.9 mg/dl 8.5-10.5 eGFR (test code = GFRE) >90 mL/min/1.73 m2 >=90 EFFECTIVE JANUARY 12, 2022 : GFR is an estimated value based on the eGFRcr 2020 CKD-EPI equation, as recommended by the NKF-ASN Task Force. BMP with [id number] 02:28:00* Test Item Value Reference Range Comments Glucose (test code = GLUC) 113 mg/dl 70-100 For the purpose of classification, fasting Glucose from 100-125 mg/dl is considered impaired fasting Glucose (Pre-Diabetic) by the [place] [employer].Fasting Glucose > 125 mg/dl is indicative of Diabetes Mellitus, but must be confirmed. BUN (test code = BUN) 19 mg/dl 6-24 Creatinine (test code = CREAT) 0.75 mg/dl 0.50-1.10 Creatinine assay is IDMS-traceable. Sodium (test code = NA) 141 mmol/L 135-145 Potassium (test code = K) 3.8 mmol/L 3.7-5.1 Chloride (test code = CL) 114 mmol/L 96-110 CO2 (test code = CO2) 24.0 mmol/L 22.0-32.0 AGAP (test code = AGAP) 7 mmol/L <=20 Calcium (test code = CA) 7.8 mg/dl 8.5-10.5 eGFR (test code = GFRE) 86 mL/min/1.73 m2 >=90 EFFECTIVE JANUARY 12, 2022 : GFR is an estimated value based on the eGFRcr 2020 CKD-EPI equation, as recommended by the NKF-ASN Task Force. [id number] 02:28:00* Test Item Value Reference Range Comments Lipase (test code = LIP) 353 u/l 13-77 Lip ase method revision effective 12/14/22. Ranges and results prior to this date will not correlate. LA [id number] 22:05:00* Test Item Value Reference Range Comments Lactic Acid (test code = LA) 1.1 mmol/L 0.4-2.0 .Differential, [id number] 21:19:00* Test Item Value Reference Range Comments Segs (test code = SEGP) 72 % Bands (test code = PBAND) 0 % Lymphs (test code = PLYM) 23 % Eos (test code = PEOS) 2 % Monos (test code = PMONO) 3 % Segs Absolute (test code = SEGA) 6.0 k/ul 1.5-8.0 Band Abs (test code = ABAND) 0.0 k/ul 0.0-1.0 Lymph Absolute (test code = ALYM) 1.9 k/ul 1.0-4.5 Eos Abs (test code = AEOS) 0.2 k/ul 0.0-0.4 Hidalgo Absolute (test code = AMONO) 0.3 k/ul 0.1-1.1 Platelet Estimate (test code = PLTE) High Norm al RBC Morphology (test code = RBCMOR) Normal Alice l Abs Neut (test code = ABSNEUT) 6.0 k/ul 1.5-8.0 .[id number] 21:15:00* Test Item Value Reference Range Comments Color (test code = COLOR) YELLOW Yellow Appearance (test code = GIULIANO) SL CLOUDY Clear Glucose (test code = UGLUC) NEGATIVE Negative Bilirubin (test code = BILE) NEGATIVE Negative Ketones (test code = UKET) NEGATIVE Negative Specific Mcintyre (test code = SPGR) 1.025 <=1.0 30 Blood (test code = UBLD) NEGATIVE Negative pH (test code = UPH) 5.5 4.5-8.0 U Protein (test code = UPROT) NEGATIVE Negative Urobilinogen (test code = URO) 0.2 EU/dl 0.2-1.0 Nitrite (test code = NIT) NEGATIVE Negative Leukocyte Esterase (test code = LEST) NEGATIVE Neg ative .Urinalysis [id number] 21:15:00* Test Item Value Reference Range Comments RBC (test code = URBC) 0-2 /HPF <=5 WBC (test code = UWBC) 2-5 /HPF <=5 Bacteria (test code = BACT) 0-10 <=10 Squamous Epithelial (test code = USQEPI) 20-50 /HPF <=5 Culture if [id number] 21:15:00* Test Item Value Reference Range Comments Culture if indicated (test code = CULORD) NOT APPL If Culture Ordered? is Yes, culture results will be available on-line within 24-[address] ABDOMEN PELVIS WITH [id number] 21:00:15CT abdomen and pelvis with IV contrastComparison: CT abdomen pelvis April 08, 2023.Indication: Abdominal pain, acute, nonlocalizedPer Radiologist Protocol.Technique: CT imaging was performed of the abdomen and pelvis following the administration of intravenous contrast. Iodinated contrast was used due to the indications for the examination, to improve disease detection and further define anatomy. Coronal and sagittal reformatted images were generated and reviewed.Findings: -Lower chest: Nodular groundglass opacities in the left lung base concerning for infection or aspiration.- Liver: Normal in morphology and enhancement. No suspicious hepatic masses are identified. The portal and hepatic veins are patent. - Biliary and Gallbladder: No intrahepatic or extrahepatic bile duct dilatation. The gallbladder is normal in appearance.- Spleen: Normal in appearance. - Pancreas: Slightly increased dilation of the pancreatic duct measuring up to 5 mm in the pancreatic head. - Adrenal Glands: Normal in appearance. - Kidneys: Right cortical scarring. No suspicious renal lesions. No hydronephrosis.- Abdominal and Pelvic Vasculature: No abdominal aortic aneurysm. Severe atherosclerotic plaque. 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 Mild nonspecific wall thickening of the rectosigmoid colon Normal appendix.- Peritoneum/Mesentery/Retroperitoneum: No free fluid. No free intraperitoneal air.- Lymph Nodes:No retroperitoneal or mesenteric lymphadenopathy. -Bladder:Normal-Pelvic organs: Unremarkable- BodyWall: Unremarkable.- Musculoskeletal: No aggressive appearing osseous lesions. Left hip arthroplasty. Unchanged superior endplate compression fracture deformity of T12.IMPRESSION:Impression:1. Mild wall thickening of the rectosigmoid colon concerning for a nonspecific proctocolitis.2. Nonspecific mild dilation of the pancreatic duct which is slightly increased compared to prior. Consider further evaluation with nonemergent MRCP.3. Left basilar nodular and groundglass opacities concerning for aspiration or infection.4. 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 Unable to urinate.Nurse #: [phone] cc's isovue 370, well tolerated.Hx of lung cancer.9 - IndicatedXR CHEST 1 [id number] 20:06:25INDICATION: CoughCOMPARISON: 05/22/2023 and 03/20/2021.TECHNIQUE: Portable upright AP. of the chestFINDINGS:Moderate hyperinflation. Slight elevation left hemidiaphragm relative to the right. There is leftward deviation of the mediastinum with obscured heart borders, similar to multiple priors. Cardiomediastinal silhouette is within normal limits. Aortic atherosclerosis. Clip projecting over left hil um. Pulmonary vasculature is within normal limits. No pneumothorax. No pleural effusion. No focal airspace consolidation. No acute osseous abnormality. Scoliosis. Multilevel spondylosis.IMPRESSION:1.Stable appearance of the chest without evidence of acute cardiopulmonary abnormality.I, eDvon Kilgore MD, have personally reviewed the images and the resident's report and agree with the interpretation.[id number] 19:45:00* Test Item Value Reference Range Comments Lipase (test code = LIP) 122 u/l 13-77 Lip ase method revision effective 12/14/22. Ranges and results prior to this date will not correlate. CMP with [id number] 19:45:00* Test Item Value Reference Range Comments Glucose (test code = GLUC) 111 mg/dl 70-100 F or the purpose of classification, fasting Glucose from 100-125 mg/dl is considered impaired fasting Glucose (Pre-Diabetic) by the [place] [employer].Fasting Glucose > 125 mg/dl is indicative of Diabetes Mellitus, but must be confirmed. BUN (test code = BUN) 22 mg/dl 6-24 Creatinine (test code = CREAT) 0.96 mg/dl 0.50-1.10 Creatinine assay is IDMS-traceable. Sodium (test code = NA) 137 mmol/L 135-145 Potassium (test code = K) 3.0 mmol/L 3.7-5.1 Chloride (test code = CL) 106 mmol/L 96-110 CO2 (test code = CO2) 26.0 mmol/L 22.0-32.0 AGAP (test code = AGAP) 8 mmol/L <=20 Calcium (test code = CA) 8.5 mg/dl 8.5-10.5 Total Protein (test code = TP) 7.4 gm/dl 6.0-8.4 Albumin (test code = ALB) 3.3 gm/dl 3.5-5.0 Globulin (test code = GLOB) 4.1 gm/dl 2.0-4.4 AST (test code = AST) 14 u/l 10-40 Alkaline Phosphatase (test code = ALKP) 86 u/l 33-138 Bilirubin Total (test code = TBIL) 0.3 mg/dl 0.0-1.5 ALT (test code = ALT) 16 u/l 12-78 eGFR (test code = GFRE) 64 mL/min/1.73 m2 >=90 EFFECTIVE JANUARY 12, 2022 : GFR is an estimated value based on the eGFRcr 2020 CKD-EPI equation, as recommended by the NKF-ASN Task Force. [id number] 19:28:00* Test Item Value Reference Range Comments WBC (test code = WBC) 8.4 k/ul 4.0-12.0 RBC (test code = RBC) 4.72 m/ul 3.50-5.30 Hemoglobin (test code = HGB) 13.3 gm/dl 12.0-16.0 Hematocrit (test code = HCT) 40.2 % 36.0-48.0 MCV (test code = MCV) 85 fl 80-100 MCH (test code = MCH) 28.2 pg 26.0-34.0 MCHC (test code = MCHC) 33.1 gm/dl 30.0-37.0 RDW (test code = RDW) 13.9 % 11.5-15.0 Platelet (test code = PLT) 451 k/ul 140-440 MPV (test code = MPV) 9.8 fl 8.5-12.5 Lipid Panel (no LDL Reflexed)2023-06-14 02:18:00* Test Item Value Reference Range Comments Cholesterol (test code = CHOL) 166 mg/dl 120-200 Triglyceride (test code = TRIG) 80 mg/dl <=149 HDL-C (test code = HDL) 71 mg/dl 40-60 VLDL Calc (test code = VLDL) 16 mg/dl <=30 LDL Calc (test code = LDL) 79 mg/dl <=99 Chol/HDL-C Ratio (test code = RCH) 2.3 ratio <=4.4 LDL/HDL-C Ratio (test code = RLH) 1.1 ratio <=3.2 Risk of Developing C oronary Heart DiseaseFemale Guidelines Male GuidelinesUp to 1.5 Up to 1.0 Low Risk1.6 to 3.2 1.1 to 3.6 Average Risk3.3 to 5.0 3.7 to 6.3 Above Average Risk5.1 to 6.1 6.4 to 8.0 High Risk Non-HDL Cholesterol (test code = NONHDL) 95 mg/dl The reference range is the patient's target low density lipoprotein plus 30. BMP with [id number] 02:18:00* Test Item Value Reference Range Comments Glucose (test code = GLUC) 117 mg/dl 70-100 For the purpose of classification, fasting Glucose from 100-125 mg/dl is considered impaired fasting Glucose (Pre-Diabetic) by the [place] [employer].Fasting Glucose > 125 mg/dl is indicative of Diabetes Mellitus, but must be confirmed. BUN (test code = BUN) 15 mg/dl 6-24 Creatinine (test code = CREAT) 0.73 mg/dl 0.50-1.10 Creatinine assay is IDMS-traceable. Sodium (test code = NA) 140 mmol/L 135-145 Potassium (test code = K) 2.7 mmol/L 3.7-5.1 Chloride (test code = CL) 105 mmol/L 96-110 CO2 (test code = CO2) 29.0 mmol/L 22.0-32.0 AGAP (test code = AGAP) 9 mmol/L <=20 Calcium (test code = CA) 8.7 mg/dl 8.5-10.5 eGFR (test code = GFRE) 88 mL/min/1.73 m2 >=90 EFFECTIVE JANUARY 12, 2022 : GFR is an estimated value based on the eGFRcr 2020 CKD-EPI equation, as recommended by the NKF-ASN Task Force. COVFLURSV [id number] 18:20:00* Test Item Value Reference Range Comments Influenza A by PCR (test cod e = INFAPCR) NEGATIVE NEGATIVE Influenza B by PCR (test cod e = INFBPCR) NEGATIVE Respiratory Syncytial Virus by PCR (test code = RSVPCR) NEGATIVE NEGATIVE The Xpert [employer] SARS-COV-2/Flu/RSVplus assay system is a real-time multiplex PCR that enables the direct amplification and detection of CoVid-19, Flu A, Flu B and RSV without nucleic acid extraction from appropriately collected specimens. The assay is approved by the FDA by the Emergency Use Authorization (EUA) process. Diagnosis of these viruses should be made using both clinical and laboratory information.Per [facility] of Health and Human Services regulations at 173-NAC (Communicable Diseases); mandated results are reported to the [place] Department of Health and Human Services, Division of Public Health, Office of Epidemiology, [address] [place] [address]. COVID-19 (test code = FZRYF30EV) NEGATIVE NEGATIVE XR CHEST 1 [id number] 17:27:55INDICATION: Shortness of BreathCOMPARISON: Chest x-ray 03/20/2021TECHNIQUE: AP of the chestFINDINGS:Postoperative changes of left upper lobectomy appear unchanged. With clip at the left hilum. There is consequential elevation left hemidiaphragm, and leftward deviation of the mediastinum with obscuration of the cardiac silhouette, unchanged. Mild right hyperinflation, unchanged. No cardiomegaly. Aortic atherosclerosis. Pulmonary vasculature is within normal limits. No pneumothorax. No pleural effusion. No focal airspace consolidation. No acute osseous abnormality. Multilevel spondylosis with upper thoracic levocurvature and lumbar dextrocurvature.IMPRESSIONStable appearance of the chest.I, Neftali Talavera MD, have personally reviewed the images and the resident's report and agree with the interpretation.iStat [id number] 09:18:00* Test Item Value Reference Range Comments Creat POCT (test code = CREATRLS) 0.7 mg/dl 0.6-1.3 Spec Type POCT (test code = SPECRLS) CARIN GFR [id number] 09:18:00* Test Item Value Reference Range Comments eGFR (test code = GFRE) >90 mL/min/1.73 m2 >=90 EFFECTIVE JANUARY 12 022 : GFR is an estimated value based on the eGFRcr 2020 CKD-EPI equation, as recommended by the NKF-ASN Task Force. Respiratory Pathogen [id number] 21:08:00WindyIBIS Chacko t: /Age/Se 1955 68 years Female [id number] x: #:Procedure: Respiratory Pathogen Screen [^1 @1]Source: [employer] Swab Body Site:Collected Date/Time: 04/25/2023 13:00 CDT Received Date/Time: 04/25/2023 19:00 CDTStart Date/Time:04/25/2023 19:00 CDT Free Text Source: FINAL REPORTSFinal Report []Verified Date/Time/Personnel: 04/25/2023 21:07 CDTNo Respiratory Pathogens detected by multiplex PCR Interpretive Data^1: .Respiratory Pathogen Panel This assay detects Adenovirus, Coronavirus 229E, Coronavirus HKU1, HeyuttwwyuiBH15, Coronavirus OC43, Human Metapneumovirus, Human Rhinovirus/Enterovirus, Influenza Type A, Influenza A Subtype H1-2009, Influenza A Subtype H1, Influenza A Subtype H3, Influenza Type B, Parainfluenza 1, Parainfluenza 2, Parainfluenza 3, Parainfluenza 4, Respiratory Syncytial Virus, Bordetella pertussis, Bordetella parapertussis, Chlamydophila pneumoniae, Mycoplasma pneumoniae and Severe AcuteRespiratory Syndrome Coronovirus 2 (Covid19) . Negative results do not preclude respiratory virus infection. Test Methodology: The [employer] Respiratory Panel is a multiplexed nucleic acid test intended for use with the FilmArray Instrument for the simultaneous qualitative detection and identification of multiple respiratory viral and bacterial nucleic acids in samples obtained from individuals suspected of respiratory tract infections. This assay is approved by the FDA by the Emergency Use Authorization (EUA) process. Per [facility] Health and Human Services regulations at 173-NAC (Communicable Diseases); mandated results are reported to the [facility] of Health and Human Services, Division of Public Health, Office of Epidemiology, [address] [place] [address]. Performing Locations @1: This test was performed at: [facility], [address] [place] [address], [facility] , [facility] FLUOROSCOPY [id number] 13:55:54Pain - soaresThis is a non-reportable study with no Radiologist dictation. Please refer to your PACS to review images, or Doc Flowsheets for documentation on studies without images.CT ABDOMEN PELVIS WITH [id number] 12:59:10REASON FOR EXAM: Gross hematuriaCOMPARISON: 3DISCUSSION: Axial images were obtained throughthe abdomen and pelvis following the intravenous administration of Isovue 370 contrast material. Coronal and sagittal reformats were performed.Lung bases are clear.Spleen is normal in size and attenuation. No focal splenic lesion seen. Pancreas enhances uniformly. No peripancreatic edema. Liver is n ormal size and attenuation. Portal vein and hepatic veins are enhancing. No focal hepatic lesions. Adrenal glands appear normal. Kidneys enhance symmetrically. Simple cyst seen upper pole left kidney. Mild scarring seen mid pole region right kidney.. Extensive atherosclerotic calcifications aorta. No pathologically enlarged retroperitoneal lymph nodes.No iliac or inguinal lymphadenopathy. Scattered diverticula. No bowel dilatation. No free fluid. No free intraperitoneal air. Stool seen throughout the colon. Urinary bladder is collapsed. Streak artifact seen in the pelvis from left hip prosthesis does obscure pelvic structures. Fluid-filled loops of small bowel. No small bowel dilatation. Stomach and duodenal sweep unremarkable.Images were reviewed at bone windows. Degenerative scoliosis seen spine.IMPRESSION: 1. Severe atherosclerosis2. Mild diverticulosis3. No renal mass seen to explain the patient's gross hematuria.Hx lung cancer, hematuria, ruling out cancer 75cc [id number] - MarginalCMP with [id number] 02:20:00* Test Item Value Reference Range Comments Glucose (test code = GLUC) 101 mg/dl 70-100 F or the purpose of classification, fasting Glucose from 100-125 mg/dl is considered impaired fasting Glucose (Pre-Diabetic) by the [place] [employer].Fasting Glucose > 125 mg/dl is indicative of Diabetes Mellitus, but must be confirmed. BUN (test code = BUN) 16 mg/dl 6-24 Creatinine (test code = CREAT) 0.73 mg/dl 0.50-1.10 Creatinine assay is IDMS-traceable. Sodium (test code = NA) 141 mmol/L 135-145 Potassium (test code = K) 3.6 mmol/L 3.7-5.1 Chloride (test code = CL) 109 mmol/L 96-110 CO2 (test code = CO2) 24.0 mmol/L 22.0-32.0 AGAP (test code = AGAP) 12 mmol/L <=20 Calcium (test code = CA) 8.8 mg/dl 8.5-10.5 Total Protein (test code = TP) 6.5 gm/dl 6.0-8.4 Albumin (test code = ALB) 3.6 gm/dl 3.5-5.0 Globulin (test code = GLOB) 2.9 gm/dl 2.0-4.4 AST (test code = AST) 11 u/l 10-40 Alkaline Phosphatase (test code = ALKP) 85 u/l 33-138 Bilirubin Total (test code = TBIL) 0.3 mg/dl 0.0-1.5 ALT (test code = ALT) 17 u/l 12-78 eGFR (test code = GFRE) 88 mL/min/1.73 m2 >=90 EFFECTIVE JANUARY 12, 2022 : GFR is an estimated value based on the eGFRcr 2020 CKD-EPI equation, as recommended by the NKF-ASN Task Force. CT CHEST WITH [id number] 10:27:50CT CHEST W/ CONTRASTDRAW FOR I STAT CREATININE UPON ARRIVAL, NO [facility] OFC TO INSTRUCT PT02 [address] BROWN/MANDY/SHAVONNE RNINDICATION: History of left upper lobe squamous cell carcinoma, follow-upCOMPARISON: 09/06/2022, 01/13TECHNIQUE: Multidetector CT images were obtained through the chest from the lung apices to theupper abdomen after administration of intravenous contrast. Images were reviewed in multiple planesand windows.FINDINGS:CHEST:Trachea and large airways are patent. Changes from left upper lobectomy.Emphysema. No consolidation or pleural fluid. Stable linear scarring left lower lobe. Redemonstration of multiple pulmonary nodules with index nodules as follows:* Stable 8 mm nodule medial right upper lobe (image 35 series 3).* Stable 11 mm groundglass opacity right upper lobe (image 43 series 3).* Stable 6 mm groundglass nodule more inferiorly within the right upper lobe (image 52 series 3).* Stable 5 mm nodule anterior left lower lobe (image 32 series 3).* Stable 5 mm nodule anterolateral left lower lobe (image 38 series 3).* Stable 7 mm nodule anterior left lower lobe (image 44 series 3).No new pulmonary nodule identified. Normal heart size. No pericardial fluid. Main pulmonary artery is normal caliber. No pulmonary emboli. Mild coronary calcification. Nonaneurysmal thoracic aorta with mild atherosclerosis. Normal configuration of the arch vessels. Normal thyroid. Stable nonenlargedprevascular lymph node. No mediastinal, hilar, or axillary lymphadenopathy.UPPER ABDOMEN:Left renalcyst. Atherosclerosis.BONES:No acute osseous abnormality. No destructive osseous lesion.IMPRESSION1. Stable pulmonary nodules.2. Status post left upper lobectomy.Follow up for NON SMALL CELL LUNG CA,75 cc isovue 370,Urine Culture 2022-11-12 14:42:00IBIS Yañez t: /Age/Se 1955 67 years Female [id number] x: #:Procedure: Culture Urine [^1 @1] Source: Urine Body Site: UrineCollected Date/Time: 11/11/2022 13:27 CDT Received Date/Time: 11/11/2022 19:44 CDTStart Date/Time: 11/11/2022 19:45 CDT Free Text Source: FINAL REPORTSFinal Report []Verified Date/Time/Personnel: 11/12/2022 14:42 CDTNo growth (<1000 cfu/ml) at 1 day. Interpretive Data^1: Culture Urine Per [facility] Health and Human Services regulations at 173-NAC (Communicable Diseases); mandated results are reported to the [place] Department of Health and Human Services, Division of Public Health,Office of Epidemiology, [address] [place] [address], [place], [place]. Performing Locations@1: This test was performed at: [facility], [address] [place] [address], [place], [address]- , USACT HEAD WITHOUT [id number] 11:10:22 REASON FOR EXAM: Posttraumatic headache.DISCUSSION:Technique: Axial multidetector images of the head were obtained reconstructed in 5 mm thick axial, and 3 mm thick sagittal and coronal planes without contrast.There are minimal chronic small vessel ischemic changes of white matter.There is a subcent imeter extra-axial hyperdensity along the inner table of the left frontal bone best defined axial image 24 series 2 that could reflect a tiny meningioma. Calcification along the falx projecting into the posterior interhemispheric fissure to the left is more likely calcified dural plaque.There is nosign of acute or chronic cortical infarct and no hemorrhage is noted. There is no edema or mass effect. There is no hydrocephalus or midline shift. There is normal cerebral volume . There is no subdural fluid collection.IMPRESSION1. Questionable subcentimeter lateral left frontal meningioma withoutacute finding.2. Minimal chronic small vessel ischemic changes of white matter.Headache, new or worsening (Age >= 50y), Post-concussion headacheHold and Call [phone] - IndicatedCT CHEST WITH [id number] 10:34:39Order: ct chest w contrastNo contrast allergyISTAT CREAT NEEDEDIns: [facility]01/13/[address] olson/ulices/kwasi Ochoa FOR EXAM: Malignant neoplasm of left upper lobe.Comparison: 01/13/2022.DISCUSSION:Technique: CT images of the chest with IV contrast. Sagittal and coronal reformats.Findings:Lower neck: No enlarged supraclavicular lymph nodes. Visualized thyroid is unremarkable.Heart and pericardium: Heart size is normal. No pericardial effusion or pericardial thickening. Mild coronary calcification.Great vessels: Mild aortic atherosclerosis. Calcification of the arch vessel origins without hemodynamically significant narrowing.Mediastinum and dara: No mediastinal mass present. No measurable thoracic lymphadenopathy. Esophagus is normal in caliber.Pulmonary parenchyma and pleural spaces: Surgical changes of left upper lobectomy. No acute consolidative process or pleural effusion. Linear areas of atelectasis or scarring in the left lower lobe at the base.8mm noncalcified nodule medial right upper lobe on image 37, unchanged.5 mm noncalcified nodule in the left apex on image 33, unchanged.4 mm noncalcified nodule in the left upper lobe on image 38, unchanged. 1.2 cm groundglass nodular opacity in the right upper lobe on image 43, unchanged. 7 mm peribronchial groundglass opacity on image 53, which is unchanged.No new or enlarging pulmonary nodules observed.Bones and soft tissues: No acute osseous abnormality or destructive bone lesion. Chronic compression fracture of the superior endplate of T12. Mild endplate spurring at multiple levels of the thoracic spine.Upper abdomen: No acute abnormality in the visible upper abdomen. Cortical cyst in the superior pole left kidney. Area of focal cortical scarring in the interpolar region right kidney.Additional findings: None.IMPRESSION1. Stable scattered noncalcified and groundglass nodules, primarily in the upper lobes. No new or enlarging p ulmonary nodule.2. Surgical changes of prior left upper lobectomy. 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 Multiplanar reconstruction.Findings:There is an intact gallbladder. Common bile duct somewhat prominent. Pancreatic duct visible. No evidence of pancreatic mass or peripancreatic edema.Small cyst superior left kidney. Mild areas of scarring superior right kidney. There is no hydronephrosis.There is dense atherosclerosis of aorta extending to the iliac arteries. No small bowel obstruction. Normal appendix. No free fluid in pelvis. Urinary bladder somewhat obscured by artifact from left hip arthroplasty. There is no inflammation of colon identified. There is moderately extensive fecal burden.Multilevel degenerative changes of spine with abnormal dextrocurvature of spine.IMPRESSION1. Intact gallbladder with mild common duct prominence, nonspecific.2. Dense atherosclerosis.3. Moderate fecal burden.4. Chronic scarring right kidney with small left renal cyst.Known hernia in right groin, s urgery scheduled 08/12/22, states pain [id number] - Indicated.[id number] 20:18:00* Test Item Value Reference Range Comments Color (test code = COLOR) YELLOW Yellow Appearance (test code = GIULIANO) CLEAR Clear Glucose (test code = UGLUC) NEGATIVE Negative Bilirubin (test code = BILE) SMALL Negative Ketones (test code = UKET) NEGATIVE Negative Specific Mcintyre (test code = SPGR) 1.030 <=1.0 30 Blood (test code = UBLD) NEGATIVE Negative pH (test code = UPH) 6.0 4.5-8.0 U Protein (test code = UPROT) NEGATIVE Negative Urobilinogen (test code = URO) 0.2 EU/dl 0.2-1.0 Nitrite (test code = NIT) NEGATIVE Negative Leukocyte Esterase (test code = LEST) TRACE Neg ative CMP with [id number] 20:09:00* Test Item Value Reference Range Comments Glucose (test code = GLUC) 101 mg/dl 70-100 For the purpose of classification, fasting Glucose from 100-125 mg/dl is considered impaired fasting Glucose (Pre-Diabetic) by the [place] [employer].Fasting Glucose > 125 mg/dl is indicative of Diabetes Mellitus, but must be confirmed. BUN (test code = BUN) 12 mg/dl 6-24 Creatinine (test code = CREAT) 0.71 mg/dl 0.50-1.10 Creatinine assay is IDMS-traceable. Sodium (test code = NA) 142 mmol/L 135-145 Potassium (test code = K) 3.6 mmol/L 3.7-5.1 Chloride (test code = CL) 108 mmol/L 96-110 CO2 (test code = CO2) 32.0 mmol/L 22.0-32.0 AGAP (test code = AGAP) 6 mmol/L <=20 Calcium (test code = CA) 9.1 mg/dl 8.5-10.5 Total Protein (test code = TP) 6.4 gm/dl 6.0-8.4 Albumin (test code = ALB) 3.4 gm/dl 3.5-5.0 Globulin (test code = GLOB) 3.0 gm/dl 2.0-4.4 AST (test code = AST) 8 u/l 10-40 Alkaline Phosphatase (test code = ALKP) 93 u/l 33-138 Bilirubin Total (test code = TBIL) 0.2 mg/dl 0.0-1.5 ALT (test code = ALT) 14 u/l 12-78 eGFR (test code = GFRE) >90 mL/min/1.73 m2 >=90 EFFECTIVE JANUARY 12, 2022 : GFR is an estimated value based on the eGFRcr 2020 CKD-EPI equation, as recommended by the NKF-ASN Task Force. [id number] 19:54:00* Test Item Value Reference Range Comments WBC (test code = WBC) 5.0 k/ul 4.0-12.0 RBC (test code = RBC) 4.83 m/ul 3.50-5.30 Hemoglobin (test code = HGB) 13.2 gm/dl 12.0-16.0 Hematocrit (test code = HCT) 42.3 % 36.0-48.0 MCV (test code = MCV) 88 fl 80-100 MCH (test code = MCH) 27.3 pg 26.0-34.0 MCHC (test code = MCHC) 31.2 gm/dl 30.0-37.0 RDW (test code = RDW) 13.1 % 11.5-15.0 Platelet (test code = PLT) 241 k/ul 140-440 MPV (test code = MPV) 9.5 fl 8.5-12.5 .Differential, [id number] 19:54:00* Test Item Value Reference Range Comments Neutrophils (test code = ASEG) 57 % IG (test code = IG%) 0 % Lymphs (test code = PLYM) 36 % Monos (test code = PMONO) 5 % Eos (test code = PEOS) 2 % Basos (test code = PBASO) 0 % Neutro, Absolute (test code = ASE) 2.8 k/ul 1.5-8. 0 IG Abs (test code = IG) 0.0 k/ul 0.0-0.1 Lymph Absolute (test code = ALYM) 1.8 k/ul 1.0-4.5 Hidalgo Absolute (test code = AMONO) 0.2 k/ul 0.1-1.1 Eos Abs (test code = AEOS) 0.1 k/ul 0.0-0.4 Baso Absolute (test code = ABASO) 0.0 k/ul 0.0-0.1 FL FLUOROSCOPY [id number] 14:36:15ASC Pain Injection w/ C-ArmThis is a non-reportable study with no Radiologist dictation. Please refer to your PACS to review images, or Doc Flowsheets for documentation on studies without images. BMP with [id number] 03:58:00* Test Item Value Reference Range Comments Glucose (test code = GLUC) 88 mg/dl 70-100 For the purpose of classification, fasting Glucose from 100-125 mg/dl is considered impaired fasting Glucose (Pre-Diabetic) by the [place] [employer].Fasting Glucose > 125 mg/dl is indicative of Diabetes Mellitus, but must be confirmed. BUN (test code = BUN) 10 mg/dl 6-24 Creatinine (test code = CREAT) 0.70 mg/dl 0.50-1.10 Creatinine assay is IDMS-traceable. Sodium (test code = NA) 139 mmol/L 135-145 Potassium (test code = K) 4.0 mmol/L 3.7-5.1 Chloride (test code = CL) 107 mmol/L 96-110 CO2 (test code = CO2) 29.0 mmol/L 22.0-32.0 AGAP (test code = AGAP) 7 mmol/L <=20 Calcium (test code = CA) 9.4 mg/dl 8.5-10.5 eGFR (test code = GFRE) >90 mL/min/1.73 m2 >=90 EFFECTIVE JANUARY 12, 2022 : GFR is an estimated value based on the eGFRcr 2020 CKD-EPI equation, as recommended by the NKF-ASN Task Force. [id number] 19:13:00* Test Item Value Reference Range Comments Lipase (test code = LIP) 145 u/l 73-393 Magnesium [id number] 19:13:00* Test Item Value Reference Range Comments Magnesium (test code = MG) 2.0 mg/dl 1.8-2.6 CMP with [id number] 19:13:00* Test Item Value Reference Range Comments Glucose (test code = GLUC) 117 mg/dl 70-100 For the purpose of classification, fasting Glucose from 100-125 mg/dl is considered impaired fasting Glucose (Pre-Diabetic) by the [place] [employer].Fasting Glucose > 125 mg/dl is indicative of Diabetes Mellitus, but must be confirmed. BUN (test code = BUN) 12 mg/dl 6-24 Creatinine (test code = CREAT) 0.72 mg/dl 0.50-1.10 Creatinine assay is IDMS-traceable. Sodium (test code = NA) 140 mmol/L 135-145 Potassium (test code = K) 2.6 mmol/L 3.7-5.1 Chloride (test code = CL) 108 mmol/L 96-110 CO2 (test code = CO2) 18.0 mmol/L 22.0-32.0 AGAP (test code = AGAP) 17 mmol/L <=20 Calcium (test code = CA) 9.3 mg/dl 8.5-10.5 Total Protein (test code = TP) 6.9 gm/dl 6.0-8.4 Albumin (test code = ALB) 4.1 gm/dl 3.5-5.0 Globulin (test code = GLOB) 2.8 gm/dl 2.0-4.4 AST (test code = AST) 13 u/l 10-40 Alkaline Phosphatase (test code = ALKP) 78 u/l 33-138 Bilirubin Total (test code = TBIL) 0.8 mg/dl 0.0-1.5 ALT (test code = ALT) 13 u/l 12-78 eGFR (test code = GFRE) >90 mL/min/1.73 m2 >=90 EFFECTIVE JANUARY 12, 2022 : GFR is an estimated value based on the eGFRcr 2020 CKD-EPI equation, as recommended by the NKF-ASN Task Force. hsTroponin [id number] 18:45:00* Test Item Value Reference Range Comments hsTroponin I (test code = HSTROPIR) 7.2 ng/L <=52.0 The reference range is the 99th percentile for a reference population of males and females.It is intended as a rough guide.Results of this test should always be interpreted in conjunction with medical history, clinical presentation and other findings.Troponin can be elevated in other conditions such as heart failure, myocarditis, and renal failure to mention a few. Follow-up troponin levels, per established algorithms/protocols, will help distinguish an acute versus chronic condition.*CHI Reference Ranges: based on 99th percentileMale <77.0 ng/LFemale <52.0 ng/L [id number] 18:25:00* Test Item Value Reference Range Comments WBC (test code = WBC) 6.2 k/ul 4.0-12.0 RBC (test code = RBC) 4.99 m/ul 3.50-5.30 Hemoglobin (test code = HGB) 14.4 gm/dl 12.0-16.0 Hematocrit (test code = HCT) 39.9 % 36.0-48.0 MCV (test code = MCV) 80 fl 80-100 MCH (test code = MCH) 28.9 pg 26.0-34.0 MCHC (test code = MCHC) 36.1 gm/dl 30.0-37.0 RDW (test code = RDW) 13.3 % 11.5-15.0 Platelet (test code = PLT) 227 k/ul 140-440 MPV (test code = MPV) 9.6 fl 8.5-12.5 .Differential, [id number] 18:25:00* Test Item Value Reference Range Comments Neutrophils (test code = ASEG) 65 % IG (test code = IG%) 0 % Lymphs (test code = PLYM) 29 % Monos (test code = PMONO) 4 % Eos (test code = PEOS) 1 % Basos (test code = PBASO) 0 % Neutro, Absolute (test code = ASE) 4.0 k/ul 1.5-8. 0 IG Abs (test code = IG) 0.0 k/ul 0.0-0.1 Lymph Absolute (test code = ALYM) 1.8 k/ul 1.0-4.5 Hidalgo Absolute (test code = AMONO) 0.2 k/ul 0.1-1.1 Eos Abs (test code = AEOS) 0.1 k/ul 0.0-0.4 Baso Absolute (test code = ABASO) 0.0 k/ul 0.0-0.1 Lipid Panel (no LDL Reflexed)[id number] 21:24:00* Test Item Value Reference Range Comments Cholesterol (test code = CHOL) 197 mg/dl 120-200 Triglyceride (test code = TRIG) 138 mg/dl <=149 HDL-C (test code = HDL) 54 mg/dl 40-60 Chol/HDL-C Ratio (test code = RCH) 3.6 ratio <=4.4 Non-HDL Cholesterol (test code = NONHDL) 143 mg/dl The reference range is the patient's target low density lipoprotein plus 30. LDL Calc (test code = LDL) 115 mg/dl <=99 LDL/HDL-C Ratio (test code = RLH) 2.1 ratio <=3.2 Risk of Developing C oronary Heart DiseaseFemale Guidelines Male GuidelinesUp to 1.5 Up to 1.0 Low Risk1.6 to 3.2 1.1 to 3.6 Average Risk3.3 to 5.0 3.7 to 6.3 Above Average Risk5.1 to 6.1 6.4 to 8.0 High Risk VLDL Calc (test code = VLDL) 28 mg/dl <=30 BMP with [id number] 21:24:00* Test Item Value Reference Range Comments Glucose (test code = GLUC) 97 mg/dl 70-100 For the purpose of classification, fasting Glucose from 100-125 mg/dl is considered impaired fasting Glucose (Pre-Diabetic) by the [place] [employer].Fasting Glucose > 125 mg/dl is indicative of Diabetes Mellitus, but must be confirmed. BUN (test code = BUN) 8 mg/dl 6-24 Creatinine (test code = CREAT) 0.91 mg/dl 0.50-1.10 Creatinine assay is IDMS-traceable. Sodium (test code = NA) 139 mmol/L 135-145 Potassium (test code = K) 3.5 mmol/L 3.7-5.1 Chloride (test code = CL) 104 mmol/L 96-110 CO2 (test code = CO2) 30.0 mmol/L 22.0-32.0 AGAP (test code = AGAP) 8 mmol/L <=20 Calcium (test code = CA) 9.0 mg/dl 8.5-10.5 eGFR (test code = GFRE) 69 mL/min/1.73 m2 >=90 EFFECTIVE JANUARY 12, 2022 : GFR is an estimated value based on the eGFRcr 2020 CKD-EPI equation, as recommended by the NKF-ASN Task Force. CT CHEST WITH [id number] 10:50:51Order: ct chest w contrastNO CONTRAST ALLERGYISTAT CREAT NEEDEDPrev scans at [facility]: [facility] brown/ulices/kwasi rn macCT CHEST WITH CONTRASTINDICATION: Restaging lung cancer.TECHNIQUE: Contrast enhanced CT of the chest. Coronal and sagittal multiplanar reconstructions. 75 cc Isovue administered intravenously.COMPARISON: Prior studies including CT chest 07/08/2021.FINDINGS:CHEST:No focal lesion of the thyroid gland. No lower cervical or axillary lymphadenopathy.Heart size is normal. No pericardial effusion. Mild coronary artery calcification. Normal orientation of the aortic arch and great vessels with moderateatherosclerotic calcification. Main and central pulmonary arteries are normal in caliber. Normal appearance of the thoracic esophagus. No mediastinal or hilar lymphadenopathy.Status post left upper lobectomy. No consolidation or pleural effusion. Central airways are patent.Similar appearance of multiple small peribronchial nodules in the left upper and midlung. For example, 5 mm anterior nodule at series 3 image 36, 4 mm lateral left upper lobe nodule at series 3 image 43.Unchanged 5 mm groundglass opacity in the medial left upper lobe at series 3 image 49. 9 mm medial right upper lobe groundglass opacity at series 3 image 39, unchanged. 12 mm posterior right upper lobe groundglass opacity at series 3 image 48, unchanged. 6 mm peribronchial groundglass opacity at series 3 image 55, unchanged. Mild centrilobular emphysema. No new or enlarging pulmonary nodules identified.UPPER ABDOMEN:Vascular calcifications. Imaged portions of upper abdominal organs otherwise normal in appearance.MUSCU LOSKELETAL:Vertebral osteophytes of the lower cervical spine. Vertebral osteophytes of the thoracicspine. Mild compression deformity of T12 superior endplate without findings of acute fracture. Associated ill-defined sclerosis in T12 superior to be degenerative. No definite suspicious osseous lesio n.IMPRESSION1. Unchanged bilateral pulmonary nodules and groundglass opacities. No new or enlargingpulmonary nodules identified.2. Status post left upper lobectomy.3. 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 Please refer to PACS to view the images.[id number] 02:47:00* Test Item Value Reference Range Comments COVID19 (test code = MDRLS48C) Negative The Cista System SARS-CoV- 2 assay system is a nucleic acid amplification in vitro diagnostic test intended for the qualitative detection of RNA. Two conserved regions of the ORF1ab gene os SARS-CoV-2 are detected.The assay is approved by the FDA by the Emergency Use Authorization (EUA) process. Diagnosis of CoVID-19 should be made using both clinical and laboratory information. BMP with [id number] 20:53:00* Test Item Value Reference Range Comments Glucose (test code = GLUC) 87 mg/dl 70-100 F or the purpose of classification, fasting Glucose from 100-125 mg/dl is considered impaired fasting Glucose (Pre-Diabetic) by the [place] [employer].Fasting Glucose > 125 mg/dl is indicative of Diabetes Mellitus, but must be confirmed. BUN (test code = BUN) 10 mg/dl 6-24 Creatinine (test code = CREAT) 0.69 mg/dl 0.50-1.10 Creatinine assay is IDMS-traceable. Sodium (test code = NA) 142 mmol/L 135-145 Potassium (test code = K) 3.6 mmol/L 3.7-5.1 Chloride (test code = CL) 108 mmol/L 96-110 CO2 (test code = CO2) 31.0 mmol/L 22.0-32.0 AGAP (test code = AGAP) 7 mmol/L <=20 Calcium (test code = CA) 9.1 mg/dl 8.5-10.5 eGFR (test code = GFRE) 89 mL/min/1.73 m2 >=90 GFR is an estimated GFR using IDMS-traceable Creatinine assay result based on the CK-EPI [address] CHEST WITH [id number] 09:25:03Ct chest with iv contrastNo contrast allergyuhc medicareTo sherri ofcCT CHEST WITH CONTRASTINDICATION: History of lung cancer.TECHNIQUE: Contrast enhanced CT of the chest. Coronal and sagittal multiplanar reconstructions. 75 cc Isovue administered intravenously.COMPARISON: Prior studies including CT chest 12/28/2020.FINDINGS:CHEST:No focal lesion of the imaged thyroid gland. No lower cervical or axillary lymphadenopathy.Heart size is normal. No pericardial effusion. Mild coronary artery calcification. Normal orientation of the aortic arch and great vessels with mild atherosclerotic calcification. Main and central pulmonary arteries are normal in caliber. Normalappearance of the thoracic esophagus. No mediastinal or hilar lymphadenopathy.Mild hyperinflation. Postoperative changes of left upper lobectomy. Minimal mucus/secretions in the trachea and main bronchi. No consolidation or pleural effusion. No pneumothorax.Multiple small peribronchial nodules in the left upper and midlung. For example, 5 mm nodule at the anterior left upper lung at series 3 image 33, unchanged.5 mm groundglass opacity in the medial left upper lung at series 3 image 38, unchanged.10 mm groundglass opacity in the medial right upper lobe at series 3 image 30, not significantly c hanged.12 mm groundglass opacity in the posterior right upper lobe at series 3 image 36, unchanged.8 mm peribronchial groundglass/reticular opacity in the right upper lobe at series 3 image 47, unchanged.No new or enlarging pulmonary nodules identified.UPPER ABDOMEN:Vascular calcifications. Imaged upper abdominal organs otherwise within normal limits.MUSCULOSKELETAL:Vertebral osteophytes of the thoracic spine. Mild compression deformity and degenerative Schmorl's node at T12 superior endplate. No evidence of acute osseous abnormality. No suspicious osseous lesion.IMPRESSION1. Stable bilateralpulmonary nodules and groundglass opacities. No new or enlarging pulmonary nodules identified.2. Pos toperative changes of left upper lobectomy.3. Atherosclerotic disease and mild coronary artery calcification.CALL REPORT TO [facility] [phone], APPT THIS AM, f/u for lung cancer, 75 cc isovue 370, had lobectomyiStat [id number] 09:04:00* Test Item Value Reference Range Comments Creat POCT (test code = CREATRLS) 0.7 mg/dl 0.6-1.3 Spec Type POCT (test code = SPECRLS) Venous GFR [id number] 09:04:00* Test Item Value Reference Range Comments eGFR (test code = GFRE) 89 mL/min/1.73 m2 >=90 GFR is an estimated GFR using IDMS-traceable Creatinine assay result based on the CK-EPI 2009 equation. [id number] 07:18:00* Test Item Value Reference Range Comments COVID19 (test code = IROSA19I) Negative The V-Keyima SARS-CoV- 2 assay system is a nucleic acid amplification in vitro diagnostic test intended for the qualitative detection of RNA. Two conserved regions of the ORF1ab gene os SARS-CoV-2 are detected.The assay is approved by the FDA by the Emergency Use Authorization (EUA) process. Diagnosis of CoVID-19 should be made using both clinical and laboratory information. Urine [id number] 22:55:00atient: IBIS TAY Jose Angel /Age/ 1955 66 years Female [id number] Sex: #: Procedure: Culture Urine [^1 @1] Source: Urine Body Site:Collected Date /Time: 04/03/2021 13:25 CDT Received Date/Time: 04/03/2021 18:20 CDTStart Date/Time: 04/03/2021 18:20 CDT Free Text Source: FINAL REPORTSFinal Report []Verified Date/Time/Personnel: 04/04/2021 22:55 CDT80,000 cfu/ml Escherichia coli PRELIMINARY REPORTSPreliminary Report []Verified Date/Time/Personnel: 04/04/2021 14:12 CDT80,000 cfu/ml Escherichia coliSusceptibility to follow. SUSCEPTIBILITY RESULTS Escherichia coliAntibiotic MDIL MINTAmpicillin 8 SusceptibleCefazolin (Urine) <=4 SusceptibleCeftriaxone <=1 SusceptibleCiprofloxacin <=0.25 SusceptibleGentamicin <=1 Susc eptibleLevofloxacin <=0.12 SusceptibleNitrofurantoin <=16 SusceptibleTrimethoprim/Sulfa <=1/19 SusceptibleInterpretive Data^1: Culture Urine Per [facility] and Human Services regulations at 173- NAC (Communicable Diseases); mandated results are reported to the [facility] and Human Services, Division of Public Health, Office of Epidemiology, [address] [place] [address]. Performing Locations@1: This test was performed at: [facility], [address] [place] [address], [id number]- , [id number] 17:17:00* Test Item Value Reference Range Comments COVID19 (test code = BECCG37T) Not Detected Not Detected The Simplexa CoVID-1 9 Direct assay system is a real-time PCR that enables the direct amplification and detection of CoVID-19 RNA without nucleic acid extraction by targeting two different regions of the SARS-CoV2 genome, ORF1ab and S gene from appropriately collected specimens. The assay is approved by the FDA by the Emergency Use Authorization (EUA) process. Diagnosis of CoVID-19 should be made using both clinical and laboratory information.Per [facility] and Human Services regulations at 173-NAC (Communicable Diseases); mandated results are reported to the [facility] and Human Services, Division of Public Health, Office of Epidemiology, [address] [place] [address]. CMP with [id number] 12:46:00* Test Item Value Reference Range Comments Glucose (test code = GLUC) 103 mg/dl 70-100 For the purpose of classification, fasting Glucose from 100-125 mg/dl is considered impaired fasting Glucose (Pre-Diabetic) by the [place] [employer].Fasting Glucose > 125 mg/dl is indicative of Diabetes Mellitus, but must be confirmed. BUN (test code = BUN) 9 mg/dl 6-24 Creatinine (test code = CREAT) 0.65 mg/dl 0.50-1.10 The new Creatinine a ssay is IDMS-traceable. Reference ranges and GFR calculations have been updated. Sodium (test code = NA) 141 mmol/L 135-145 Potassium (test code = K) 3.1 mmol/L 3.7-5.1 Chloride (test code = CL) 106 mmol/L 96-110 CO2 (test code = CO2) 26.0 mmol/L 22.0-32.0 AGAP (test code = AGAP) 12 mmol/L <=20 Calcium (test code = CA) 9.5 mg/dl 8.5-10.5 Total Protein (test code = TP) 7.3 gm/dl 6.0-8.4 Albumin (test code = ALB) 4.0 gm/dl 3.5-5.0 Globulin (test code = GLOB) 3.3 gm/dl 2.0-4.4 AST (test code = AST) 12 u/l 10-40 Alkaline Phosphatase (test code = ALKP) 88 u/l 33-138 Bilirubin Total (test code = TBIL) 0.6 mg/dl 0.0-1.5 ALT (test code = ALT) 17 u/l 12-78 GFR if -[place] (test code = GFRAA) >90 mL/min/1.73 m2 >=90 GFR if not -[place] (test code = GFRNAA) >90 mL/min/1.73 m2 >=90 *NOTE: GFR is a calculated estimate of the glomerular filtration rate.* [id number] 11:37:00* Test Item Value Reference Range Comments Lipase (test code = LIP) 57 u/l 73-393 [id number] 11:26:00* Test Item Value Reference Range Comments WBC (test code = WBC) 8.8 k/ul 4.0-12.0 RBC (test code = RBC) 5.15 m/ul 3.50-5.30 Hemoglobin (test code = HGB) 14.5 gm/dl 12.0-16.0 Hematocrit (test code = HCT) 43.5 % 36.0-48.0 MCV (test code = MCV) 84 fl 80-100 MCH (test code = MCH) 28.2 pg 26.0-34.0 MCHC (test code = MCHC) 33.3 gm/dl 30.0-37.0 RDW (test code = RDW) 13.7 % 11.5-15.0 Platelet (test code = PLT) 275 k/ul 140-440 MPV (test code = MPV) 9.1 fl 8.5-12.5 .Differential, [id number] 11:26:00* Test Item Value Reference Range Comments Neutrophils (test code = ASEG) 83 % IG (test code = IG%) 0 % Lymphs (test code = PLYM) 12 % Monos (test code = PMONO) 4 % Eos (test code = PEOS) 0 % Basos (test code = PBASO) 0 % Neutro, Absolute (test code = ASE) 7.3 k/ul 1.5-8. 0 IG Abs (test code = IG) 0.0 k/ul 0.0-0.1 Lymph Absolute (test code = ALYM) 1.1 k/ul 1.0-4.5 Hidalgo Absolute (test code = AMONO) 0.4 k/ul 0.1-1.1 Eos Abs (test code = AEOS) 0.0 k/ul 0.0-0.4 Baso Absolute (test code = ABASO) 0.0 k/ul 0.0-0.1 XR CHEST 1 [id number] 11:02:41portableREASON FOR EXAM: CoughCOMPARISON: 09/11/2020ISCUSSION: There are stable postoperative changes involving the left lung. There are no new areas of airspace consolidation or pleural effusion. The cardiac silhouette is partially obscured. There are degenerative changes within the thoracic spine. Thereare no radiopaque foreign bodies.IMPRESSION: 1. Stable exam with no acute findings.[id number] 10:46:00* Test Item Value Reference Range Comments COVID19 (test code = ZBMRV29V) Negative The Aptima SARS-CoV- 2 assay system is a nucleic acid amplification in vitro diagnostic test intended for the qualitative detection of RNA. Two conserved regions of the ORF1ab gene os SARS-CoV-2 are detected.The assay is approved by the FDA by the Emergency Use Authorization (EUA) process. Diagnosis of CoVID-19 should be made using both clinical and laboratory information. Vit D [id number] 04:37:00* Test Item Value Reference Range Comments Vitamin D 25 OH (test code = VITD25) 21.0 ng/mL 30.0-80.0 Interpretative data for Vitamin D 25 OH:Less than 20 ng/mL is considered deficientResult between 20-29 ng/mL is considered insufficientGreater than 80 ng/mL is considered toxicity Sedimentation [id number] 19:26:00* Test Item Value Reference Range Comments Sedimentation Rate (test code = SR) 6 mm/hr 0-25 Rheumatoid [id number] 19:13:00* Test Item Value Reference Range Comments Rheumatoid Factor (test code = RF) <10 IU/ml <=15 Culture if [id number] 11:28:00* Test Item Value Reference Range Comments Culture if indicated (test code = CULORD) NOT APPL If Culture Ordered? is Yes, culture results will be available on-line within 24-48 hours. [id number] 11:28:00* Test Item Value Reference Range Comments Color (test code = COLOR) YELLOW Yellow Appearance (test code = GIULIANO) CLEAR Clear Glucose (test code = UGLUC) NEGATIVE Negative Bilirubin (test code = BILE) NEGATIVE Negative Ketones (test code = UKET) NEGATIVE Negative Specific Mcintyre (test code = SPGR) 1.010 <=1.0 30 Blood (test code = UBLD) NEGATIVE Negative pH (test code = UPH) 5.0 4.5-8.0 U Protein (test code = UPROT) NEGATIVE Negative Urobilinogen (test code = URO) 0.2 EU/dl 0.2-1.0 Nitrite (test code = NIT) NEGATIVE Negative Leukocyte Esterase (test code = LEST) TRACE Neg ative WBC (test code = UWBC) 5-10 /HPF <=5 RBC (test code = URBC) ABSENT /HPF <=5 Bacteria (test code = BACT) 0-10 <=10 Squamous Epithelial (test code = USQEPI) 5-10 /HPF <=5 MAMMO DIGITAL 3D SCREENING [id number] 10:08:03REASON FOR EXAM: Routine screening.DISCUSSION: Comparison is made to prior exam of 2018 and 2017. Bi lateral digital mammography with computer-aided detection. Additional 3-D digital breast tomosynthesis was preformed of the breasts. There are scattered fibroglandular densities within both breasts. . No dominant mass, suspicious microcalcification, or worrisome architectural distortion. No interval change.Images were processed by computer-aided detection system.IMPRESSION: No mammographic findings of malignancy.ASSESSMENT: BI-RADS category 1, negative mammogram. Recommendation: Routine annual screening mammography is recommended in 12 months as per the [place] [employer] and the Society of breast imaging screening guidelines. Layman's letter sent to the patient.CT CHEST WITH [id number] 08:30:51CT CHEST W/ CONTRASTDRAW FOR I STAT CREATININE UPON ARRIVAL, NO CONTRAST [id number] 2019 TO WHITNEY DEWEY/ULICES/SHAVONNE RNCT chest with contrastINDICATION: Non-small cell lung cancerCOMPARISON: May 28, 2020TECHNIQUE:Volumetric multidetector CT images of the chest following the demonstration of IV contrast.FINDINGS: The thyroid and esophagus are unremarkable. Normal heart size. There is no pericardial or pleural effusion. Mild coronary atherosclerotic calcifications. There is mild atherosclerotic disease of thenonaneurysmal thoracic aorta. There is no thoracic lymphadenopathy.Limited evaluation of the upper abdomen is unremarkable.Postsurgical changes status post left upper lobectomy. The trachea and central airways are patent. Mild centrilobular emphysema.Minimal linear scarring at the left base.1. There are a few patchy subcentimeter foci of groundglass opacities in the right upper lobe (series 3 image 25, 30 and 41), unchanged.2. 6 mm, 5 mm lingular solid noncalcified nodule in the left apex (series 3 image 24, 29 and 35), unchanged. 3. There are a few additional smaller nodules in the left apex, stable in number and size.No destructive osseous lesion is seen. There are no acute osseous findings. Superior plate compression of T12.IMPRESSION1. No new or enlarging pulmonary nodules are identified. Stable biapical groundglass opacities in the pulmonary nodules.2. Status post left upper lobectomy.3. Coronary atherosclerotic disease.75cc isovue 370/ CR 0.7 GFR/ results [id number] malignant neoplasm of bronchus of left upper lobe.Past Surgical History: Procedure Laterality Date - ESOPHAGEAL DILATION 2012 approx. done with upper endoscopy - KNEE ARTHROPLASTY Right 2010 - LUMBAR [id number] - LUNG LOBECTOMY Left 10/11/2017 Upper - CO TOTAL KNEE ARTHROPLASTY Right 05/28/2014 Procedure: REPLACEMENT TOTAL JOINT KNEE RIGHT / BETO ; Surgeon: Isaak Moncada MD; Location: [facility] OR;Service: Orthopedics - SPINE SURGERY lumbar fusion Not ValidatedFL FLUOROSCOPY [id number] 09:33:00This is a non-reportable study with no radiologist dictation. Please refer to PACS to view the images.BMP with [id number] 06:31:00* Test Item Value Reference Range Comments Glucose (test code = GLUC) 94 mg/dl 70-100 For the purpose of classification, fasting Glucose from 100-125 mg/dl is considered impaired fasting Glucose (Pre-Diabetic) by the [place] [employer].Fasting Glucose > 125 mg/dl is indicative of Diabetes Mellitus, but must be confirmed. BUN (test code = BUN) 15 mg/dl 6-24 Creatinine (test code = CREAT) 0.74 mg/dl 0.50-1.10 The new Creatinine a njy is IDMS-traceable. Reference ranges and GFR calculations have been updated. Sodium (test code = NA) 141 mmol/L 135-145 Potassium (test code = K) 4.1 mmol/L 3.7-5.1 Chloride (test code = CL) 108 mmol/L 96-110 CO2 (test code = CO2) 27.0 mmol/L 22.0-32.0 AGAP (test code = AGAP) 10 mmol/L <=20 Calcium (test code = CA) 9.3 mg/dl 8.5-10.5 GFR if -[place]err[place]ian (test code = GFRAA) >90 mL/min/1.73 m2 >=90 GFR if not -[place]ian (test code = GFRNAA) 84 mL/min/1.73 m2 >=90 *NOTE: GFR is a calc ulated estimate of the glomerular filtration rate.* [id number] 06:04:00* Test Item Value Reference Range Comments WBC (test code = WBC) 5.4 k/ul 4.0-12.0 RBC (test code = RBC) 5.08 m/ul 3.50-5.30 Hemoglobin (test code = HGB) 14.3 gm/dl 12.0-16.0 Hematocrit (test code = HCT) 45.5 % 36.0-48.0 MCV (test code = MCV) 90 fl 80-100 MCH (test code = MCH) 28.1 pg 26.0-34.0 MCHC (test code = MCHC) 31.4 gm/dl 30.0-37.0 RDW (test code = RDW) 13.3 % 11.5-15.0 Platelet (test code = PLT) 235 k/ul 140-440 MPV (test code = MPV) 9.7 fl 8.5-12.5 Blood [id number] 14:52:00atient: IBIS TAY /Age/ 1955 65 years Female [id number] Sex: #: Procedure: Culture Blood [O1 ^1 @1] Source: Blood Body Site:Collected Date/Time: 10/15/2020 16:40 CDT Received Date/Time: 10/15/2020 21:24 CDTStart Date/Time: 10/15/2020 21:24 CDT Free Text Source: FINAL REPORTSFinal Report []Verified Date/Time/Personnel: 10/21/2020 14:52 CDTNo growth at 5 days. PRELIMINARY REPORTSPreliminary Report []Verified Date/Time/Personnel: 10/19/2020 22:00 CDTNo growth at 4 days. Preliminary Report []Verified Date/Time/Personnel: 10/18/2020 22:00 CDTNo growth at 3 days. Preliminary Report []Verified Date/Time/Personnel: 10/17/2020 22:00CDTNo growth at 2 days.Preliminary Report []Verified Date/Time/Personnel: 10/16/2020 22:00 CDTNo growth at 1 day. Preliminary Report []Verified Date/Time/Personnel: 10/15/2020 23:01 CDTCulture received in lab, report to follow. Order CommentsO1: Culture Blood (BLOOD CULTURE) Collection Site: L Wrist Aerobic: 5ml Anaerobic: 5ml Peds: _Interpretive Data^1: Culture Blood Per [facility] of Health and Human Services regulations at 173-NAC (Communicable Diseases); mandated results are reported to the [facility] of Health and Human Services, Division of Public Health, Office of Epidemiology, [address] [place] [address]. Performing Locations@1: This test was performed at: [facility], [address] [place] [address], [id number]-Uotzo [id number] 22:00:00atient: IBIS TAY /Age/ 1955 65 years Female [id number] Sex: #: Procedure: Culture Blood [O1 ^1 @1] Source: Blood Body Site:Collected Date/Time: 10/15/2020 16:40 CDT Received Date/Time: 10/15/2020 21:25 CDTStart Date/Time: 10/15/2020 21:25 CDT Free Text Source: FINAL REPORTSFinal Report []Verified Date/Time/Personnel: 10/20/2020 22:00 CDTNo growth at 5 days. PRELIMINARY REPORTSPreliminary Report []Verified Date/Time/Personnel: 10/19/2020 22:00 CDTNo growth at 4 days. Preliminary Report []Verified Date/Time/Personnel: 10/18/2020 22:00 CDTNo growth at 3 days. Preliminary Report []Verified Date/Time/Personnel: 10/17/2020 22:00 CDTNo growth at 2 days.Preliminary Report []Verified Date/Time/Personnel: 10/16/2020 22:00 CDTNo growth at 1 day. Preliminary Report []Verified Date/Time/Personnel: 10/15/2020 23:01 CDTCulture received in lab, report to follow. Order CommentsO1: Culture Blood (BLOOD CULTURE) Collection Site: RAC Aerobic: 5ml Anaerobic: 5ml Peds: _Interpretive Data^1: Culture Blood Per [facility] Health and Human Services regulations at 173-NAC (Communicable Diseases); mandated results are reported to the [facility] of Health and Human Services, Division of Public Health, Office of Epidemiology, [address] [place] [address]. Performing Locations@1: This test was performed at: [facility], [address] [place] [address], [id number] 21:44:00* Test Item Value Reference Range Comments PTT (test code = PTTAVE) 27.8 sec 22.8-33.9 Hep jesus alberto THERAPEUTIC RANGE = 50 - 80 sec [id number] 21:44:00* Test Item Value Reference Range Comments PT (test code = PTAVE) 11.2 sec 9.6-11.9 INR (test code = PTINR) 1.0 0.9-1.1 Warf jesus alberto THERAPEUTIC INR RANGE = 2.0 - 3.0 [id number] 21:39:00* Test Item Value Reference Range Comments WBC (test code = WBC) 6.6 k/ul 4.0-12.0 RBC (test code = RBC) 4.48 m/ul 3.50-5.30 Hemoglobin (test code = HGB) 12.6 gm/dl 12.0-16.0 Hematocrit (test code = HCT) 39.1 % 36.0-48.0 MCV (test code = MCV) 87 fl 80-100 MCH (test code = MCH) 28.1 pg 26.0-34.0 MCHC (test code = MCHC) 32.2 gm/dl 30.0-37.0 RDW (test code = RDW) 13.2 % 11.5-15.0 Platelet (test code = PLT) 221 k/ul 140-440 MPV (test code = MPV) 10.0 fl 8.5-12.5 .Differential, [id number] 21:39:00* Test Item Value Reference Range Comments Neutrophils (test code = ASEG) 60 % IG (test code = IG%) 0 % Lymphs (test code = PLYM) 33 % Monos (test code = PMONO) 5 % Eos (test code = PEOS) 3 % Basos (test code = PBASO) 0 % Neutro, Absolute (test code = ASE) 4.0 k/ul 1.5-8. 0 IG Abs (test code = IG) 0.0 k/ul 0.0-0.1 Lymph Absolute (test code = ALYM) 2.2 k/ul 1.0-4.5 Hidalgo Absolute (test code = AMONO) 0.3 k/ul 0.1-1.1 Eos Abs (test code = AEOS) 0.2 k/ul 0.0-0.4 Baso Absolute (test code = ABASO) 0.0 k/ul 0.0-0.1 CMP with [id number] 21:38:00* Test Item Value Reference Range Comments Glucose (test code = GLUC) 123 mg/dl 70-100 For the purpose of classification, fasting Glucose from 100-125 mg/dl is considered impaired fasting Glucose (Pre-Diabetic) by the [place] Diabetes [employer].Fasting Glucose > 125 mg/dl is indicative of Diabetes Mellitus, but must be confirmed. BUN (test code = BUN) 18 mg/dl 6-24 Creatinine (test code = CREAT) 0.90 mg/dl 0.50-1.10 The new Creatinine a ssay is IDMS-traceable. Reference ranges and GFR calculations have been updated. Sodium (test code = NA) 141 mmol/L 135-145 Potassium (test code = K) 3.0 mmol/L 3.7-5.1 Chloride (test code = CL) 103 mmol/L 96-110 CO2 (test code = CO2) 33.0 mmol/L 22.0-32.0 AGAP (test code = AGAP) 8 mmol/L <=20 Calcium (test code = CA) 8.6 mg/dl 8.5-10.5 Total Protein (test code = TP) 6.2 gm/dl 6.0-8.4 Albumin (test code = ALB) 3.4 gm/dl 3.5-5.0 Globulin (test code = GLOB) 2.8 gm/dl 2.0-4.4 AST (test code = AST) 7 u/l 10-40 Alkaline Phosphatase (test code = ALKP) 90 u/l 33-138 Bilirubin Total (test code = TBIL) 0.3 mg/dl 0.0-1.5 ALT (test code = ALT) 15 u/l 12-78 GFR if -Montserratian (test code = GFRAA) 77 mL/min/1.73 m2 >=90 GFR if not -[place]serr[place]ian (test code = GFRNAA) 66 mL/min/1.73 m2 >=90 *NOTE: GFR is a calc ulated estimate of the glomerular filtration rate.* CT ABDOMEN PELVIS WITH [id number] 17:34:19REASON FOR EXAM: Abdominal pain and vomiting for 4 days.Comparison: 03/04/2017.DISCUSSION:Technique:CT images of the abdomen and pelvis with IV contrast. Sagittal and coronal reformats.Findings:Rightlobe liver measures 12 cm in craniocaudal length. No focal liver lesion. Gallbladder and bile ductsare normal caliber. Spleen, pancreas, and adrenal glands are unremarkable. Symmetric renal enhancement. No hydronephrosis or hydroureter. 1.3 cm simple cyst in the interpolar region right kidney. Focal renal cortical scarring in the interpolar region right kidney.Small bowel and colon are normal caliber. No appreciable bowel wall thickening. Appendix is normal. No free fluid in the abdomen or pelvis. No free air. Mild diverticulosis of the sigmoid colon.Urinary bladder shows no focal wall thickening. Uterus is unremarkable. No adnexal mass. Moderate aortic atherosclerosis without aneurysm. Heavy calcification of the common iliac arteries. Complete occlusion of both common iliac arteriesNo retroperitoneal or pelvic lymphadenopathy.Lung bases are clear.No acute osseous abnormality or destructive bone lesion. Diffuse osteopenia. Slight dextrocurvature of the lumbar spine. Multilevel degenerative disc disease and degenerative spondylosis. Left hip arthroplasty device. Fat-containing mass adjacent to the right erector spinae musculature.IMPRESSION: 1. No acute pathology evident in the abdomen or pelvis.2. 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 Mild colonic diverticulosis.4. Right renal focal cortical scarring.Vomiting x4 days, abdominal pain and diarrhea, generalized body [id number] isovue 3709 - [id number] 17:32:00* Test Item Value Reference Range Comments PTT (test code = PTTAVE) 27.4 sec 22.8-33.9 Hep jesus alberto THERAPEUTIC RANGE = 50 - 80 sec [id number] 17:32:00* Test Item Value Reference Range Comments PT (test code = PTAVE) 11.6 sec 9.6-11.9 INR (test code = PTINR) 1.1 0.9-1.1 Warf jesus alberto THERAPEUTIC INR RANGE = 2.0 - 3.0 LA [id number] 17:15:00* Test Item Value Reference Range Comments Lactic Acid (test code = LA) 1.4 mmol/L 0.4-2.0 [id number] 17:08:00* Test Item Value Reference Range Comments Lipase (test code = LIP) 110 u/l 73-393 CMP with [id number] 16:52:00* Test Item Value Reference Range Comments Glucose (test code = GLUC) 105 mg/dl 70-100 For the purpose of classification, fasting Glucose from 100-125 mg/dl is considered impaired fasting Glucose (Pre-Diabetic) by the [place] Diabetes [employer].Fasting Glucose > 125 mg/dl is indicative of Diabetes Mellitus, but must be confirmed. BUN (test code = BUN) 15 mg/dl 6-24 Creatinine (test code = CREAT) 0.89 mg/dl 0.50-1.10 The new Creatinine a ssay is IDMS-traceable. Reference ranges and GFR calculations have been updated. Sodium (test code = NA) 137 mmol/L 135-145 Potassium (test code = K) 2.9 mmol/L 3.7-5.1 Chloride (test code = CL) 103 mmol/L 96-110 CO2 (test code = CO2) 32.0 mmol/L 22.0-32.0 AGAP (test code = AGAP) 5 mmol/L <=20 Calcium (test code = CA) 9.4 mg/dl 8.5-10.5 Total Protein (test code = TP) 7.5 gm/dl 6.0-8.4 Albumin (test code = ALB) 4.0 gm/dl 3.5-5.0 Globulin (test code = GLOB) 3.5 gm/dl 2.0-4.4 AST (test code = AST) 12 u/l 10-40 Alkaline Phosphatase (test code = ALKP) 100 u/l 33-138 Bilirubin Total (test code = TBIL) 0.6 mg/dl 0.0-1.5 ALT (test code = ALT) 18 u/l 12-78 GFR if -Montserratian (test code = GFRAA) 77 mL/min/1.73 m2 >=90 GFR if not -[place]serratian (test code = GFRNAA) 67 mL/min/1.73 m2 >=90 *NOTE: GFR is a calc ulated estimate of the glomerular filtration rate.* [id number] 16:41:00* Test Item Value Reference Range Comments WBC (test code = WBC) 7.4 k/ul 4.0-12.0 RBC (test code = RBC) 5.55 m/ul 3.50-5.30 Hemoglobin (test code = HGB) 15.7 gm/dl 12.0-16.0 Hematocrit (test code = HCT) 47.1 % 36.0-48.0 MCV (test code = MCV) 85 fl 80-100 MCH (test code = MCH) 28.3 pg 26.0-34.0 MCHC (test code = MCHC) 33.3 gm/dl 30.0-37.0 RDW (test code = RDW) 12.6 % 11.5-15.0 Platelet (test code = PLT) 306 k/ul 140-440 MPV (test code = MPV) 9.3 fl 8.5-12.5 .Differential, [id number] 16:41:00* Test Item Value Reference Range Comments Neutrophils (test code = ASEG) 69 % IG (test code = IG%) 0 % Lymphs (test code = PLYM) 24 % Monos (test code = PMONO) 6 % Eos (test code = PEOS) 0 % Basos (test code = PBASO) 0 % Neutro, Absolute (test code = ASE) 5.1 k/ul 1.5-8. 0 IG Abs (test code = IG) 0.0 k/ul 0.0-0.1 Lymph Absolute (test code = ALYM) 1.8 k/ul 1.0-4.5 Hidalgo Absolute (test code = AMONO) 0.4 k/ul 0.1-1.1 Eos Abs (test code = AEOS) 0.0 k/ul 0.0-0.4 Baso Absolute (test code = ABASO) 0.0 k/ul 0.0-0.1 Lipid Panel (no LDL Reflexed)[id number] 21:28:00* Test Item Value Reference Range Comments Cholesterol (test code = CHOL) 183 mg/dl 120-200 Triglyceride (test code = TRIG) 143 mg/dl <=149 HDL-C (test code = HDL) 81 mg/dl 40-60 VLDL Calc (test code = VLDL) 29 mg/dl <=30 LDL Calc (test code = LDL) 73 mg/dl <=99 Chol/HDL-C Ratio (test code = RCH) 2.3 ratio <=4.4 LDL/HDL-C Ratio (test code = RLH) .9 ratio <=3.2 Risk of Developing C oronary Heart DiseaseFemale Guidelines Male GuidelinesUp to 1.5 Up to 1.0 Low Risk1.6 to 3.2 1.1 to 3.6 Average Risk3.3 to 5.0 3.7 to 6.3 Above Average Risk5.1 to 6.1 6.4 to 8.0 High Risk Non-HDL Cholesterol (test code = NONHDL) 102 mg/dl The reference range is the patient's target low density lipoprotein plus 30. COVFLURSV [id number] 12:43:00* Test Item Value Reference Range Comments Influenza A by PCR (test cod e = INFAPCR) NEGATIVE Influenza B by PCR (test cod e = INFBPCR) NEGATIVE Respiratory Syncytial Virus by PCR (test code = RSVPCR) NEGATIVE The Xpert Xp ress SARS-COV-2/Flu/RSV assay system is a real-time multiplex PCR that enables the direct amplification and detection of CoVid-19, Flu A, Flu B and RSV without nucleic acid extraction from appropriately collected specimens. The assay is approved by the FDA by the Emergency Use Authorization (EUA) process. Diagnosis of these viruses should be made using both clinical and laboratory information.Per [facility] Health and Human Services regulations at 173-NAC (Communicable Diseases); mandated results are reported to the [facility] of Health and Human Services, Division of Public Health, Office of Epidemiology, [address] [place] [address].Test performed at [facility], [address] [place] [address]. COVID19 (test code = FCSXF51H) NEGATIVE Negative XR CHEST 1 [id number] 10:43:34EXAM: Chest AP upright portable 09/11/2020 at 10:26 AM.REASON FOR EXAM: Prior partial left lung resection for lung CA, COPD, had Covid vaccine 5 days ago and now has flulike symptoms with productive cough in a 65-year-old female.DISCUSSION:A single portable view of the chest was obtained and comparison is made to prior studies dated 02/03/2020 and 08/09/2019.The cardiac silhouette and pulmonary vascularity are within normal limits and there is no pulmonary edema. The thoracic aorta is atheroscle rotic.There has been a prior left thoracotomy and there is chronic scarring and fibrosis extending from the left hilum into the left superior sulcus, which is unchanged. No new infiltrate or consolidation and there is no pleural effusion or pneumothorax. The right lung is hyperinflated and free of focal abnormality.IMPRESSION: 1. COPD, and prior left thoracotomy scarring and fibrosis.2. No current active chest disease or new abnormality since 02/03/2020.Covid vaccine 5 days ago. Hx L lung CA/lobectomy. states after vaccine she has had bdy aches, headaches, a productive cough with yellow sputum, feels dizzy and is very tiredXR FEMUR 2 OR MORE VIEWS [id number] 19:31:05 REASON FOR EXAM: Left femur pain and swelling.DISCUSSION:AP and lateral views left femur. No comparison. Left total hip arthroplasty device. No periprosthetic fracture or loosening. Left total knee arthroplasty device. Hardware components appear normally aligned. No fracture.IMPRESSION: No acute osseous abnormality in the left femur.Fall today at [facility] WRIST MINIMUM 3 VIEWS [id number] 19:20:14REASON FOR EXAM: Trauma. Wrist pain.DISCUSSION:AP, oblique, lateral view left wrist. No comparison.No fracture or dislocation. Diffuse osteopenia. Radiocarpal joint spaces are normal. Moderate to severe joint space narrowing and spurring of the first carpometacarpal joint.IMPRESSION: 1. No acute osseous abnormality in the left wrist.2. Advanced arthritic changes of the first carpometacarpal joint[facility] 2020-07-19 19:15:38REASON FOR EXAM: Trauma. Left ankle pain.DISCUSSION:AP, oblique, and lateral views left ankle. No comparison. No fracture or dislocation. Ankle mortise is symmetric. Talar dome is intact. No significant soft tissue swelling or joint effusion seen. IMPRESSION: No acute osseous abnormality of the ankle.[facility] trippeed over a wireCT CHEST WITH [id number] 11:06:10Ca center appt to follow\X0A\CT CHEST WITH CONTRAST\X0A\\X0A\INDICATION: \X0A\Non-small cell lung cancer.\X0A\\X0A\TECHNIQUE: \X0A\Contrast enhanced CT of the chest. Coronal and sagittal multiplanar reconstructions. 75 cc Isovue administered intravenously.\X0A\\X0A\COMPARISON: \X0A\Prior studies including CT chest 12/05/2019.\X0A\\X0A\FINDINGS:\X0A\\X0A\CHEST:\X0A\No focal lesion of the imaged thyroid gland. No visualized lower cervical or axillary lymphadenopathy.\X0A\\X0A\Heart size is normal. No pericardial effusion. Mild coronary calcification. Normal orientation of the aortic arch and great vessels with mild atherosclerotic calcification. Main and central pulmonary arteries are normal in caliber. Normal appearance of \X0A\the thoracic esophagus with the exception of small hiatal hernia. No mediastinal or hilar lymphadenopathy.\X0A\\X0A\No consolidation or pleural effusion. Postoperative changes of left upper lobectomy. Minimal right greater than left apical pleural scarring. Linear scarring at the basal left lung, unchanged.\X0A\\X0A\4 mm anterobasal left lower lobe nodule at series 4 image 136, unchanged.\X0A\6 mm peribronchial nodule in the anterior left upper lung at series 4 image 41, unchanged.\X0A\5 mm anterior left upper lung nodule at series 4 image 31, unchanged.\X0A\6 mm groundglass opacity in the medial right upper lobe at series 4 image 32, unchanged.\X0A\11 x 5 mm peribronchial groundglass opacities in the posterior right upper lobe at series 4 image 39, unchanged.\X0A\7 mm peribron chial groundglass opacity in the central right upper lobe at series 4 image 49, unchanged.\X0A\Additional small centrilobular nodules and groundglass opacities in the upper lungs are also unchanged.\X0A\No new or enlarging pulmonary nodule identified.\X0A\\X0A\UPPER ABDOMEN:\X0A\Vascular calcifications. Small hypodense medial left upper pole renal hypodensity, too small to characterize. Cortical t hinning in the right upper pole suggesting scarring from prior infection or vascular insult. Imagedupper abdominal organs otherwise \X0A\normal in appearance.\X0A\\X0A\MUSCULOSKELETAL:\X0A\Vertebralosteophytes of the thoracic spine. Mild compression deformity of T12 superior endplate, unchanged. No suspicious osseous lesion.\X0A\\X0A\IMPRESSION\X0A\\X0A\1. Stable bilateral pulmonary nodules andgroundglass opacities. No new or enlarging pulmonary nodules identified.\X0A\2. Status post left upper lobectomy.\X0A\3. No mediastinal or hilar lymphadenopathy.\X0A\4. Mild coronary artery calcificat ion.\X0A\\X0A\non small cell lung cancer-f/u \X0A\75ml isovue 370\X0A\\X0A\Ca center appt to [id number]\X0A\Not ValidatediStat [id number] 10:52:00* Test Item Value Reference Range Comments Creat POCT (test code = CREATRLS) 0.7 mg/dl 0.6-1.3 Spec Type POCT (test code = SPECRLS) Venous GFR [id number] 10:52:00* Test Item Value Reference Range Comments GFR if -Montserratian (test code = GFRAA) >90 mL/min/1.73 m2 >=90 GFR if not -[place]serr[place]ian (test code = GFRNAA) 90 mL/min/1.73 m2 >=90 *NOTE: GFR is a calc ulated estimate of the glomerular filtration rate.* Blood [id number] 13:45:00atient: IBIS TAY /Age/ 1955 64 years Female [id number]:#:Procedure: Culture Blood [O1\S\1 @1] Blood Body Site:Collected Date/Time: 02/03/2020 13:05 CDT Received Date/Time: 02/04/2020 05:07 CDTStart Date/Time: 02/04/2020 05:08 CDT Free Text Source:FINAL REPORTSFinal Report []Verified Date/Time/Personnel: 02/09/2020 13:45 CDTNo growth at 5 days.PRELIMINARY REPORTSPreliminary Report []Verified Date/Time/Personnel: 02/08/2020 06:00 CDTNo growth at 4 days.Preliminary Report []Verified Date/Time/Personnel: 02/07/2020 06:00 CDTNo growth at 3 days.Preliminary Report []Verified Date/Time/Personnel: 02/06/2020 06:00 CDTNogrowth at 2 days.Preliminary Report []Verified Date/Time/Personnel: 02/05/2020 06:00 CDTNo growth at1 day.Preliminary Report []Verified Date/Time/Personnel: 02/04/2020 07:00 CDTCulture received in lab, report to follow.Order CommentsO1: Culture Blood (BLOOD CULTURE)Collection Site:l forearmAerobic: 5ccAnaerobic: 5ccPeds: _Interpretive Data\S\1: Culture BloodPer [facility] and Human Services regulations [place] 173[facility] [place] (CommunicableDiseases); mandated results are reported to the [facility] Health and HumanServices, Division of Public Health, Office of Epidemiology, [address] [place] [address].Performing Locations@1: This test was performed at:[facility], [address] [place] [address], [id number]-Fizft [id number] 13:45:00atient: IBIS TAY /Age/ 1955 64 years Female [id number]:#:Procedure: Culture Blood [O1\S\1 @1] Blood Body Site:Collected Date/Time: 02/03/2020 12:50 CDT Received Date/Time: 02/04/2020 05:06 CDTStart Date/Time: 02/04/2020 05:06 CDT Free Text Source:FINAL REPORTSFinal Report []Verified Date/Time/Personnel: 02/09/2020 13:45 CDTNo growth at 5 days.PRELIMINARY REPORTSPreliminary Report []Verified Date/Time/Personnel: 02/08/2020 06:00 CDTNo growth at 4 days.Preliminary Report []Verified Date/Time/Personnel: 02/07/2020 06:00 CDTNo growth at 3 days.Preliminary Report []Verified Date/Time/Personnel: 02/06/2020 06:00 CDTNogrowth at 2 days.Preliminary Report []Verified Date/Time/Personnel: 02/05/2020 06:00 CDTNo growth at1 day.Preliminary Report []Verified Date/Time/Personnel: 02/04/2020 07:00 CDTCulture received in lab, report to follow.Order CommentsO1: Culture Blood (BLOOD CULTURE)Collection Site:l forearmAerobic: 5ccAnaerobic: 5ccPeds: _Interpretive Data\S\1: Culture BloodPer [facility] and Human [facility] regulations at 173NAC (CommunicableDiseases); mandated results are reported to the [facility] of Public Health, Office of Epidemiology, [address] [place] [address].Performing Locations@1: This test was performed at:[facility], [address] [place] [address], [id number]- [id number] 10:38:00* Test Item Value Reference Range Comments COVID19 (test code = FGRAL91B) Not Detected Not Detected The Follica SARS-CoV- 2 assay is a real-time RT-PCR test that targets a conserved sequence of the RdRp region of the Orfib gene and the N-gene to detect SARS-CoV-2 (the virus which causes CoVID19) from appropriately collected and extracted nasopharyngeal swab specimens. The assay is approved by the FDA by the Emergency Use Authorization (EUA) process. Diagnosis of CoVID19 should be made using both clinical and laboratory information.Per [facility] and Human Services regulations at 173-NAC (Communicable Diseases); mandated results are reported to the [facility] of Health and Human Services, Division of Public Health, Office of Epidemiology, [address] [place] [address]. CMP with [id number] 13:28:00* Test Item Value Reference Range Comments Glucose (test code = GLUC) 99 mg/dl 70-100 For the purpose of classification, fasting Glucose from 100-125 mg/dl is considered impaired fasting Glucose (Pre-Diabetic) by the [place] [employer].Fasting Glucose > 125 mg/dl is indicative of Diabetes Mellitus, but must be confirmed. BUN (test code = BUN) 10 mg/dl 6-24 Creatinine (test code = CREAT) 0.71 mg/dl 0.50-1.10 The new Creatinine a ssay is IDMS-traceable. Reference ranges and GFR calculations have been updated. Sodium (test code = NA) 142 mmol/L 135-145 Potassium (test code = K) 3.6 mmol/L 3.7-5.1 Chloride (test code = CL) 111 mmol/L 96-110 CO2 (test code = CO2) 28.0 mmol/L 22.0-32.0 AGAP (test code = AGAP) 7 mmol/L <=20 Calcium (test code = CA) 8.8 mg/dl 8.5-10.5 Total Protein (test code = TP) 6.5 gm/dl 6.0-8.4 Albumin (test code = ALB) 3.4 gm/dl 3.5-5.0 Globulin (test code = GLOB) 3.1 gm/dl 2.0-4.4 AST (test code = AST) 8 u/l 10-40 Alkaline Phosphatase (test code = ALKP) 85 u/l 33-138 Bilirubin Total (test code = TBIL) 0.3 mg/dl 0.0-1.5 ALT (test code = ALT) 15 u/l 12-78 GFR if -Montserr[place]ian (test code = GFRAA) >90 mL/min/1.73 m2 >=90 GFR if not -[place]err[place]ian (test code = GFRNAA) 88 mL/min/1.73 m2 >=90 *NOTE: GFR is a calculated estimate of the glomerular filtration rate.* LA [id number] 13:27:00* Test Item Value Reference Range Comments Lactic Acid (test code = LA) 1.1 mmol/L 0.4-2.0 [id number] 13:22:00* Test Item Value Reference Range Comments PT (test code = PTAVE) 11.4 sec 9.6-11.9 INR (test code = PTINR) 1.1 0.9-1.1 Warf jesus alberto THERAPEUTIC INR RANGE = 2.0 - 3.0 [id number] 13:22:00* Test Item Value Reference Range Comments PTT (test code = PTTAVE) 28.6 sec 22.8-33.9 Hep jesus alberto THERAPEUTIC RANGE = 50 - 80 sec [id number] 13:07:00* Test Item Value Reference Range Comments WBC (test code = WBC) 5.5 k/ul 4.0-12.0 RBC (test code = RBC) 4.89 m/ul 3.50-5.30 Hemoglobin (test code = HGB) 13.7 gm/dl 12.0-16.0 Hematocrit (test code = HCT) 41.3 % 36.0-48.0 MCV (test code = MCV) 84 fl 80-100 MCH (test code = MCH) 28.0 pg 26.0-34.0 MCHC (test code = MCHC) 33.2 gm/dl 30.0-37.0 RDW (test code = RDW) 13.0 % 11.5-15.0 Platelet (test code = PLT) 254 k/ul 140-440 MPV (test code = MPV) 9.5 fl 8.5-12.5 .Differential, [id number] 13:07:00* Test Item Value Reference Range Comments Neutrophils (test code = ASEG) 64 % IG (test code = IG%) 0 % Lymphs (test code = PLYM) 29 % Monos (test code = PMONO) 4 % Eos (test code = PEOS) 2 % Basos (test code = PBASO) 0 % Neutro, Absolute (test code = ASE) 3.5 k/ul 1.5-8. 0 IG Abs (test code = IG) 0.0 k/ul 0.0-0.1 Lymph Absolute (test code = ALYM) 1.6 k/ul 1.0-4.5 Hidalgo Absolute (test code = AMONO) 0.2 k/ul 0.1-1.1 Eos Abs (test code = AEOS) 0.1 k/ul 0.0-0.4 Baso Absolute (test code = ABASO) 0.0 k/ul 0.0-0.1 XR CHEST 1 [id number] 12:57:20\X0A\REASON FOR EXAM: Cough\X0A\\X0A\DISCUSSION:\X0A\AP upright view the chest demonstrates cardiome gavin. There is elevation left hemidiaphragm. A tortuous aorta is seen. The right lung field is clear. There is better ventilation of the lung butterfield from the old exam.\X0A\\X0A\IMPRESSION\X0A\: \X0A\\X0A\1. Cardiomegaly.\X0A\2. Elevation left hemidiaphragm.\X0A\3. Tortuous aorta.\X0A\4. Right lung field clear with better ventilation of the lung butterfield from prior study.\X0A\CT CHEST WITH [id number] 10:33:27\X0A\CT CHEST WITH CONTRAST\X0A\\X0A\INDICATION:\X0A\Non-small cell lung cancer.\X0A\\X0A\TECHNIQUE:\X0A\Contrast enhanced CT of the chest. Coronal and sagittal multiplanar reconstructions. 75 cc Isovue administered intravenously.\X0A\\X0A\COMPARISON:\X0A\Prior studies including CT chest 08/22/2019.\X0A\\X0A\FINDINGS:\X0A\\X0A\CHEST:\X0A\No focal lesion of the imaged thyroid gland. No visualized lower cervical or axillary lymphadenopathy.\X0A\\X0A\Heart size is normal. No pericardial effusion. Mild coronary artery calcification. Normal orientation of the aortic arch and great vessels with mild atherosclerotic calcification. Main and central pulmonary arteries are normal in caliber. Small hiatal \X0A\hernia. Thoracic esophagus otherwise normal in appearance. No mediastinal or hilar lymphadenopathy by size criteria. 6 mm prevascular lymph node adjacent to the aortic arch, unchanged.\X0A\\X0A\Postoperative changes of left upper lobectomy. Central airways are patent. No consolidation or pleural effusion. Minimal subpleural reticulation in the left rib and right lower lungs, may relate to mild pulmonary fibrosis.\X0A\\X0A\5 mm anterior left upper lobe nodule at series 3 image 37, unchanged.\X0A\Several left upper lung peribronchial nodules measuring up to 8 mm are also unchanged (series 3 image 47, series 3 image 44).\X0A\6 mm groundglass opacity in the medial right upper lobe at series 3 image 41, unchanged.\X0A\11 mm posterior right upper lobe groundglass opacity at series 3 image 48, unchanged.\X0A\5 mm posterior left upper lung ground glass opacity at series 3 image 53, unchanged.\X0A\Additional scattered small ground glass opacities and pulmonary nodules are unchanged.\X0A\\X0A\UPPER ABDOMEN:\X0A\Vascular calcifications. Cortical thinning in the medial upper pole of the right kidney, suggesting remote infarct or scarring from prior infection. Imaged upper abdominal organs otherwise within normal limits.\X0A\\X0A\MUSCULOSKELETAL :\X0A\Vertebral osteophytes of the thoracic spine. Mild compression deformity of central T12 vertebral body, unchanged. No suspicious osseous lesion.\X0A\\X0A\IMPRESSION\X0A\\X0A\1. Stable small bilateral pulmonary nodules and groundglass opacities. No new or enlarging pulmonary nodules identified.\X0A\2. Status post left upper lobectomy.\X0A\3. No mediastinal or hilar lymphadenopathy.\X0A\4. Mild coronary artery calcification.\X0A\\X0A\non small cell lung ca\X0A\75cc isovue 370iStat Crea 2019-12-05 09:31:00* Test Item Value Reference Range Comments Creat POCT (test code = CREATRLS) 0.8 mg/dl 0.6-1.3 Spec Type POCT (test code = SPECRLS) Venous GFR [id number] 09:31:00* Test Item Value Reference Range Comments GFR if -Montserratian (test code = GFRAA) 89 mL/min/1.73 m2 >=90 GFR if not -Montserratian (test code = GFRNAA) 77 mL/min/1.73 m2 >=90 *NOTE: GFR is a calc ulated estimate of the glomerular filtration rate.* FL FLUOROSCOPY [id number] 11:16:20\X0A\This is a non-reportable study with no radiologist dictation. Please refer to PACS to view theimages.CT CHEST WITH [id number] 08:53:41[facility]-medicare, [employer]. Health care planCt chest with contrastNeed ISTAT priorTo dr. Brown.lorraine estrada\X0A\CT chest with contrast\X0A\\X0A\HISTORY: Lung cancer.\X0A\\X0A\COMPARISON: CT chest 06 August 2017.\X0A\\X0A\TECHNIQUE: Contiguous axial CT imaging of the chest was obtained following the IV administration of 75 mL of Isovue-370. Reformations obtained.\X0A\\X0A\FINDINGS:\X0A\\X0A\There are postoperative changes to the left lung from a left upper lobectomy. There are left hilar surgical clips with resultant volume loss and shift of mediastinum to the left. There are numerous pulmonary nodules within the residual left lower lobe as\X0A\ follows: (9 mm (axial image 41), 2 mm and 2 mm (axial image 44), 4 mm (axial image 36). There is additional groundglass opacity within the right lung apex measuring up to 1.2 cm.\X0A\\X0A\There is linear atelectasis and scarring within the left lower lo be. There has been interval resolution of prior atelectasis.\X0A\\X0A\The heart is grossly normal. There is atherosclerotic vessel disease of the thoracic aorta and coronary artery calcifications. Nomediastinal or hilar adenopathy. Visualized portions of the upper abdomen are grossly normal. Osseous structures demonstrate\X0A\ spondylosis of the spine. There are no lytic or blastic lesions. There is a compression deformity of a lower thoracic vertebral body which appears chronic.\X0A\\X0A\IMPRESSION\X0A\\X0A\\X0A\Interval left upper lobectomy.\X0A\\X0A\Numerous pulmonary nodules within the residual left lower lobe which are likely new from prior. Direct comparison is somewhat limited due to the airspace disease on the prior imaging. These findings remain indeterminate for spread of disease. 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 [address] [place], [place] [address]c: 10ccPeds: _Interpretive Data\S\1: Culture BloodPer [facility] and [facility] regulations at [address] [place] [address] (CommunicableDiseases); mandated results are reported to the [facility] of Health and HumanSpomerene hospitalices, Division of Public Health, Office of Epidemiology, [address] [place] [address].Performing Locations@1: This test was performed at:[facility], [address] [place] [address], [address]-Hkyxe [id number] 18:00:00atient: IBIS TAY /Age/ 1955 64 years Female [id number]: #:Procedure: Culture Blood [O1\S\1 @1] Blood Body Site:Collected Date/Time: 08/09/2019 14:38 BRICK EXTRUDER OPERATOR Received Date/Time: 08/09/2019 17:45 CSTStart Date/Time: 08/09/2019 17:45 BRICK EXTRUDER OPERATOR Free Text Source:FINAL REPORTSFinal Report []Verified Date/Time/Personnel: 08/15/2019 18:00 CSTNo growth at 5 days.PRELIMINARY REPORTSPreliminary Report []Verified Date/Time/Personnel: 08/11/2019 18:00 CSTNo growth at 48 HoursPreliminary Report []Verified Date/Time/Personnel: 08/10/2019 18:01 CSTNo growth at 24 HoursOrder CommentsO1: Culture Blood (BLOOD CULTURE)Collection Site: Right ACAerobic: 10ccAnaerobic: 10ccPeds: _Interpretive Data\S\1: Culture BloodPer [facility] and Human Services regulations at 173-NAC (CommunicableDiseases); mandated results are reported to the [place] Department of Health and HumanServices, Division of Public Health, Office of Epidemiology, [address] [place] [address].Performing Locations@1: This test was performed at:[facility], [address] [place] [address], [place], [address]-Mgjivda if [id number] 16:24:00* Test Item Value Reference Range Comments Culture if indicated (test code = CULORD) NOT APPL If Culture Ordered? is Yes, culture results will be available on-line within 24-48 hours. .[id number] 16:24:00* Test Item Value Reference Range Comments Color (test code = COLOR) YELLOW Yellow Appearance (test code = GIULIANO) CLEAR Clear Glucose (test code = UGLUC) NEGATIVE Negative Bilirubin (test code = BILE) NEGATIVE Negative Ketones (test code = UKET) NEGATIVE Negative Specific Mcintyre (test code = SPGR) 1.010 <=1.0 30 Blood (test code = UBLD) NEGATIVE Negative pH (test code = UPH) 7.5 4.5-8.0 Protein (test code = UPROT) NEGATIVE Negative Urobilinogen (test code = URO) 0.2 EU/dl 0.2-1.0 Nitrite (test code = NIT) NEGATIVE Negative Leukocyte Esterase (test code = LEST) TRACE Neg ative .Urinalysis [id number] 16:24:00* Test Item Value Reference Range Comments RBC (test code = URBC) ABSENT <=5 WBC (test code = UWBC) ABSENT <=5 [id number] 16:15:00* Test Item Value Reference Range Comments Troponin-I (test code = TROP) <0.04 ng/mL <=0.04 LA [id number] 15:37:00* Test Item Value Reference Range Comments Lactic Acid (test code = LA) 1.5 mmol/L 0.4-2.0 CMP with [id number] 15:35:00* Test Item Value Reference Range Comments Glucose (test code = GLUC) 156 mg/dl 70-100 For the purpose of classification, fasting Glucose from 100-125 mg/dl is considered impaired fasting Glucose (Pre-Diabetic) by the [place] Diabetes Association.Fasting Glucose > 125 mg/dl is indicative of Diabetes Mellitus, but must be confirmed. BUN (test code = BUN) 14 mg/dl 6-24 Creatinine (test code = CREAT) 0.74 mg/dl 0.50-1.10 The new Creatinine a tod is IDMS-traceable. Reference ranges and GFR calculations have been updated. Sodium (test code = NA) 142 mmol/L 135-145 Potassium (test code = K) 3.9 mmol/L 3.7-5.1 Chloride (test code = CL) 109 mmol/L 96-110 CO2 (test code = CO2) 29.0 mmol/L 22.0-32.0 AGAP (test code = AGAP) 8 mmol/L <=20 Calcium (test code = CA) 9.1 mg/dl 8.5-10.5 Total Protein (test code = TP) 7.2 gm/dl 6.0-8.4 Albumin (test code = ALB) 3.6 gm/dl 3.5-5.0 Globulin (test code = GLOB) 3.6 gm/dl 2.0-4.4 AST (test code = AST) 18 u/l 10-40 Alkaline Phosphatase (test code = ALKP) 100 u/l 33-138 Bilirubin Total (test code = TBIL) 0.4 mg/dl 0.0-1.5 ALT (test code = ALT) 22 u/l 12-78 GFR if -Montserratian (test code = GFRAA) >90 mL/min/1.73 m2 >=90 GFR if not -Montserratian (test code = GFRNAA) 84 mL/min/1.73 m2 >=90 *NOTE: GFR is a calculated estimate of the glomerular filtration rate.* [id number] 15:29:00* Test Item Value Reference Range Comments PT (test code = PTAVE) 10.7 sec 9.6-11.9 INR (test code = PTINR) 1.0 0.9-1.1 Warf jesus alberto THERAPEUTIC INR RANGE = 2.0 - 3.0 [id number] 15:29:00* Test Item Value Reference Range Comments PTT (test code = PTTAVE) 27.8 sec 22.8-33.9 PTT therapeutic range is 50-80 seconds, when PTT is used as a monitor for unfractionated heparin therapy. .Differential, [id number] 15:10:00* Test Item Value Reference Range Comments Neutrophils (test code = ASEG) 88 % IG (test code = IG%) 0 % Lymphs (test code = PLYM) 11 % Monos (test code = PMONO) 1 % Eos (test code = PEOS) 0 % Neutro, Absolute (test code = ASE) 4.4 k/ul 1.5-8. 0 IG Abs (test code = IG) 0.0 k/ul 0.0-0.1 Lymph Absolute (test code = ALYM) 0.6 k/ul 1.0-4.5 Hidalgo Absolute (test code = AMONO) 0.0 k/ul 0.1-1.1 Eos Abs (test code = AEOS) 0.0 k/ul 0.0-0.4 [id number] 15:10:00* Test Item Value Reference Range Comments WBC (test code = WBC) 5.0 k/ul 4.0-12.0 RBC (test code = RBC) 5.01 m/ul 3.50-5.30 Hemoglobin (test code = HGB) 14.2 gm/dl 12.0-16.0 Hematocrit (test code = HCT) 42.9 % 36.0-48.0 MCV (test code = MCV) 86 fl 80-100 MCH (test code = MCH) 28.3 pg 26.0-34.0 MCHC (test code = MCHC) 33.1 gm/dl 30.0-37.0 RDW (test code = RDW) 13.0 % 11.5-15.0 Platelet (test code = PLT) 260 k/ul 140-440 MPV (test code = MPV) 10.2 fl 8.5-12.5 XR CHEST 2 [id number] 14:44:17\X0A\2 view chest radiograph\X0A\\X0A\REASON FOR EXAM: Cough\X0A\\X0A\Comparison: Chest radiograph June.\X0A\\X0A\DISCUSSION:\X0A\\X0A\PA and lateral views of the chest demonstrate postoperative changes to the left lung with hilar surgical clips and volume loss. There are endobronchial clips as well. There is no new focal consolidation, effusion or pneumothorax. Heart size is within \X0A\normal limits. Osseous structures demonstrate spondylosis and scoliosis of the spine.\X0A\\X0A\IMPRESSION\X0A\\X0A\\X0A\Postoperative appearance to the left lung. Appearance is unchanged fromprior.\X0A\\X0A\No new acute cardiopulmonary abnormality.\X0A\coughXR ANKLE MINIMUM 3 VIEWS [id number] 17:14:21 \X0A\INDICATION: Fall, left ankle and foot pain\X0A\\X0A\COMPARISON: None\X0A\\X0A\TECHNIQUE: 3 views of the right ankle and 3 views of the right foot. (PA, lateral, and oblique views)\X0A\\X0A\FINDINGS:\X0A\No acute fracture or dislocation. Ankle mortise appears intact and symmetric. No significant arthritic change. Soft tissues are unremarkable.\X0A\\X0A\IMPRESSION\X0A\\X0A\1. No acute osseous or articular abnormality.\X0A\\X0A\I, Dr. Ricco Moctezuma, have personally reviewed the images and theresident's interpretation and have edited the findings.\X0A\XR FOOT MINIMUM 3 VIEWS [id number] 17:14:21 \X0A\INDICATION: Fall, left ankle and foot pain\X0A\\X0A\COMPARISON: None\X0A\\X0A\TECHNIQUE: 3 views of the right ankle and 3 views of the right foot. (PA, lateral, and oblique views)\X0A\\X0A\FINDINGS:\X0A\No acute fracture or dislocation. Ankle mortise appears intact and symmetric. No significant arthritic change. Soft tissues are unremarkable.\X0A\\X0A\IMPRESSION\X0A\\X0A\1. No acute osseous or articular abnormality.\X0A\\X0A\I, Dr. Ricco Moctezuma, have personally reviewed the images and theresident's interpretation and have edited the findings.\X0A\.Influ B [id number] 15:41:00* Test Item Value Reference Range Comments Influenza B Antigen (test code = INFBAG) neg Negative .Influ A [id number] 15:41:00* Test Item Value Reference Range Comments Influenza A Antigen (test code = INFAG) NEGATIVE N egative CMP with [id number] 14:25:00* Test Item Value Reference Range Comments Glucose (test code = GLUC) 83 mg/dl 70-100 For the purpose of classification, fasting Glucose from 100-125 mg/dl is considered impaired fasting Glucose (Pre-Diabetic) by the [place] Diabetes Association.Fasting Glucose > 125 mg/dl is indicative of Diabetes Mellitus, but must be confirmed. BUN (test code = BUN) 6 mg/dl 6-24 Creatinine (test code = CREAT) 0.70 mg/dl 0.50-1.10 The new Creatinine a ssay is IDMS-traceable. Reference ranges and GFR calculations have been updated. Sodium (test code = NA) 140 mmol/L 135-145 Potassium (test code = K) 4.3 mmol/L 3.7-5.1 Chloride (test code = CL) 107 mmol/L 96-110 CO2 (test code = CO2) 30.0 mmol/L 22.0-32.0 AGAP (test code = AGAP) 7 mmol/L <=20 Calcium (test code = CA) 8.7 mg/dl 8.5-10.5 Total Protein (test code = TP) 6.5 gm/dl 6.0-8.4 Albumin (test code = ALB) 3.3 gm/dl 3.5-5.0 Globulin (test code = GLOB) 3.2 gm/dl 2.0-4.4 AST (test code = AST) 10 u/l 10-40 Alkaline Phosphatase (test code = ALKP) 95 u/l 33-138 Bilirubin Total (test code = TBIL) 0.5 mg/dl 0.0-1.5 ALT (test code = ALT) 15 u/l 12-78 GFR if -Montserratian (test code = GFRAA) >90 mL/min/1.73 m2 >=90 GFR if not -Montserratian (test code = GFRNAA) >90 mL/min/1.73 m2 >=90 *NOTE: GFR is a calculated estimate of the glomerular filtration rate.* [id number] 14:25:00* Test Item Value Reference Range Comments Troponin-I (test code = TROP) <0.04 ng/mL <=0.04 XR CHEST 1 [id number] 14:19:12\X0A\Portable chest radiograph\X0A\\X0A\REASON FOR EXAM: Chest pain\X0A\\X0A\Comparison: Chest radiograph 18 October 2017\X0A\\X0A\DISCUSSION:\X0A\\X0A\Single portable frontal view of the chest demonstrates patchy airspace disease within the left lower lung. There is a component of volume loss on the left. There is blunting of the right costophrenic angle representing scarring versus a small pleural\X0A\effusion. There are left hilar surgical clips. Osseous structures are unremarkable.\X0A\\X0A\IMPRESSION\X0A\\X0A\\X0A\Postoperative changes to the left lung with volume loss and basilar atelectasis.\X0A\\X0A\No focal consolidation.\X0A\nausea, chest pain started last night, [id number] 14:05:00* Test Item Value Reference Range Comments WBC (test code = WBC) 8.6 k/ul 4.0-12.0 RBC (test code = RBC) 4.99 m/ul 3.50-5.30 Hemoglobin (test code = HGB) 14.0 gm/dl 12.0-16.0 Hematocrit (test code = HCT) 43.2 % 36.0-48.0 MCV (test code = MCV) 87 fl 80-100 MCH (test code = MCH) 28.1 pg 26.0-34.0 MCHC (test code = MCHC) 32.4 gm/dl 30.0-37.0 RDW (test code = RDW) 13.2 % 11.5-15.0 Platelet (test code = PLT) 235 k/ul 140-440 MPV (test code = MPV) 9.8 fl 8.5-12.5 .Differential, [id number] 14:05:00* Test Item Value Reference Range Comments Neutrophils (test code = ASEG) 71 % IG (test code = IG%) 0 % Lymphs (test code = PLYM) 22 % Monos (test code = PMONO) 5 % Eos (test code = PEOS) 2 % Basos (test code = PBASO) 0 % Neutro, Absolute (test code = ASE) 6.1 k/ul 1.5-8. 0 IG Abs (test code = IG) 0.0 k/ul 0.0-0.1 Lymph Absolute (test code = ALYM) 1.9 k/ul 1.0-4.5 Hidalgo Absolute (test code = AMONO) 0.4 k/ul 0.1-1.1 Eos Abs (test code = AEOS) 0.2 k/ul 0.0-0.4 Baso Absolute (test code = ABASO) 0.0 k/ul 0.0-0.1 FL FLUOROSCOPY [id number] 09:17:34Cervical spine injection in ASC \X0A\This is a non-reportable study with no radiologist dictation. Please refer to PACS to view theimages.FL FLUOROSCOPY [id number] 11:46:57\X0A\This is a non-reportable study with no radiologist dictation. Please refer to PACS to view theimages.XR LUMBAR SPINE FLEXION AND EXTENSION VIEW [id number] 14:53:13Xray of Lumbar SpineFLEX/EXT\X0A\EXAMINATION:Lumbar spine, 4 views including flexion and extension lateral views\X0A\\X0A\INDICA TION:Postlaminectomy syndrome, not elsewhere classified\X0A\Spinal stenosis, cervical region\X0A\\X0A\COMPARISON: 04/29/2019\X0A\\X0A\IMPRESSION\X0A\DISCUSSION/\X0A\ There is convex-right scoliosis. No fracture or subluxation. There is severe degenerative change with disc space narrowing at all levels. There is multilevel facet arthrosis. Alignment remains stable during flexion and extension. \X0A\There is SI joint degenerative change. There is vascular calcification.\X0A\\X0A\\X0A\\X0A\Pt states most recent back surgery was 1995, new painXR LUMBAR SPINE 2 OR 3 VIEWS 2019-02-27 12:57:27\X0A\REASON FOR EXAM: Back pain\X0A\\X0A\DISCUSSION:\X0A\AP and lateral views were obtained of the lumbar spine as well as a lateral view of the lumbosacral junction. There is scoliosis to the right.There is a vacuum disc at L1-2, L2-3 and L3-4 levels. Vascular calcifications are seen. There is a grade 1 \X0A\spondylolisthesis of L4 on L5 measuring 8 mm. A left hip arthroplasty is noted.\X0A\\X0A\IMPRESSION\X0A\\X0A\1. Scoliosis of the right.\X0A\2. Vacuum disc multiple upper lumbar levels.\X0A\3. Vascular calcification.\X0A\4. No fracture.\X0A\5. 8 mm spinal listhesis of L5 on S1.\X0A\6. Spurring all lumbar levels\X0A\Urine [id number] 07:27:00 atient: TAY IBIS Jose Angel /Age/ 1955 63 years Female [id number]:#:UrinalysisCollected Date 02/17/2019Collected Time 19:50 CDTProcedure Units ReferenceRangeAppearanceSl. Cloudy [Clear][* @1]Bacteria >300 [* @1] [<=10]Bilirubin Negative [Negative][@1]Blood Negative [Negative][@1]Color Yellow [@1] [Yellow]Glucose Negative [Negative][@1]Ketones Negative [Negative][@1]Leukocyte Small [Negative]Esterase [* @1]Nitrite Positive [Negative][* @1]pH 5.5 [@1] [4.5-8.0]Protein Negative [Negative][@1]RBC Absent [@1]/HPF [<=5]Specific Mcintyre >=1.030 [<=1.030][* @1]Squamous 2-5 [@1] /HPF [<=5]EpithelialUrobilinogen 0.2 [@1] EU/dl [0.2-1.0]WBC 20-50 [* /HPF [<=5]R1 @1]Culture if Yes [\S\1 @1]indicatedResult CommentsR1: WBCSuboptimal volume submittedfor testing, microscopic exam performed on 8 ml's.Interpretive Data\S\1: Culture if indicatedIf Culture Ordered? is Yes, culture results will be available on-line within 24-48 hours.Procedure: Culture Urine [\S\2 @2] Urine Body Site:Collected Date/Time: 02/17/2019 19:50 CDT Received Date/Time: 02/18/2019 09:15 CDTStart Date/Time: 02/17/2019 20:20 CDT Free Text Source:FINAL REPORTSFinal Report []Verified Date/Time/Personnel: 02/19/2019 07:27 CDT>100,000 cfu/ml Escherichia coliPRELIMINARY REPORTSPreliminary Report []Verified Date/Time/Personnel: 02/18/2019 17:27 CDT>100,000 cfu/ml Escherichia coliSusceptibility to follow.SUSCEPTIBILITY RESULTSEscherichia coliAntibiotic MDIL MINTAmpicillin >=32 ResistantAmpicillin/Sulbactam >=32/16 ResistantCefazolin (Urine) 16 SusceptibleCeftriaxone <=1 SusceptibleCiprofloxacin <=0.25 SusceptibleGentamicin <=1 SusceptibleLevofloxacin <=0.12 SusceptibleNitrofurantoin 32 SusceptiblePiperacillin/Tazobactam <=4 SusceptibleTrimethoprim/Sulfa <=1/19 SusceptibleInterpretive Data\S\2: Culture UrinePer [facility] of Health and Human Services regulations at 173-NAC (CommunicableDiseases); mandated results are reported to the [place] Department of Health and HumanServices, Division of Public Health, Office of Epidemiology, [address] [place] [address].Performing Locations@1: This test was performed at:[facility], [address] [place] [address], [id number]-@2: Thistest was performed at:[facility], [address] [place] [address], [id number]-.Urinalysis [id number] 20:15:00* Test Item Value Reference Range Comments RBC (test code = URBC) ABSENT <=5 WBC (test code = UWBC) 20-50 <=5 Subop timal volume submitted for testing, microscopic exam performed on 8 ml's. Bacteria (test code = BACT) >300 <=10 Squamous Epithelial (test co de = USQEPI) 2-5 <=5 .[id number] 20:15:00* Test Item Value Reference Range Comments Color (test code = COLOR) YELLOW Yellow Appearance (test code = GIULIANO) SL CLOUDY Clear Glucose (test code = UGLUC) NEGATIVE Negative Bilirubin (test code = BILE) NEGATIVE Negative Ketones (test code = UKET) NEGATIVE Negative Specific Mcintyre (test code = SPGR) >=1.030 <=1.0 30 Blood (test code = UBLD) NEGATIVE Negative pH (test code = UPH) 5.5 4.5-8.0 Protein (test code = UPROT) NEGATIVE Negative Urobilinogen (test code = URO) 0.2 EU/dl 0.2-1.0 Nitrite (test code = NIT) POSITIVE Negative Leukocyte Esterase (test code = LEST) SMALL Neg ative Culture if [id number] 20:15:00* Test Item Value Reference Range Comments Culture if indicated (test c ode = CULORD) Yes If Culture Ordered? is Yes, culture results will be available on-line within 24-48 hours. FL FLUOROSCOPY [id number] 12:27:31\X0A\This is a non-reportable study with no radiologist dictation. Please refer to PACS to view theimages.CT CHEST WITH [id number] 12:10:08\X0A\CT CHEST WITH CONTRAST\X0A\\X0A\INDICATION:\X0A\Non-small cell lung cancer.\X0A\\X0A\TECHNIQUE:\X0A\Contrast enhanced CT of the chest. Coronal and sagittal multiplanar reconstructions. 75 cc Isovue administered intravenously.\X0A\\X0A\COMPARISON:\X0A\Prior studies including CT chest 08/18/2018.\X0A\\X0A\FINDINGS:\X0A\\X0A\CHEST:\X0A\No focal lesion of the imaged thyroid gland. No visualized lower cervical or axillary lymphadenopathy.\X0A\\X0A\Heart size is normal. Trace pericardial fluid, unc hanged. Mild coronary artery calcification. Normal orientation of the aortic arch and great vesselswith mild atherosclerotic calcification. Main and central pulmonary arteries are normal in caliber.\X0A\Normal appearance of the thoracic esophagus. No mediastinal or hilar lymphadenopathy.\X0A\\X0A\Unchanged volume loss in the left chest. Postoperative changes of left upper lobectomy. Unchanged appearance of centrilobular nodules in the left upper and midlung, measuring up to 8 x 3 mm at series4 image 38. Scattered centrilobular groundglass \X0A\opacities in the right lung are also not significantly changed. For example, posterior right upper lobe ground glass opacity measuring 1 cm at seri es 4 image 34, 5 mm medial right upper lobe groundglass opacity at series 4 image 30. Linear scarring at \X0A\the left greater the right lung bases. Central airways are patent. Mild centrilobular emphysema.\X0A\\X0A\UPPER ABDOMEN:\X0A\Basilar calcifications. Imaged upper abdominal organs otherwise n ormal in appearance.\X0A\\X0A\MUSCULOSKELETAL :\X0A\Vertebral osteophytes of the thoracic spine. Nosuspicious osseous lesion.\X0A\\X0A\IMPRESSION\X0A\\X0A\1. Postoperative changes of left upper lobectomy.\X0A\2. Unchanged appearance of centrilobular pulmonary nodules and ground glass opacities in both lungs since 05/01/2018. No new or enlarging pulmonary nodule identified.\X0A\3. Atheroscleroticdisease and mild coronary artery calcification.\X0A\\X0A\NON SMALL CELL LUNG CANCER \X0A\Dx: Malignant neoplasm of upper lobe, left bronchus or lung \X0A\\X0A\75 cc of isovue 370 givenBMP with [id number] 08:57:00* Test Item Value Reference Range Comments Glucose (test code = GLUC) 93 mg/dl 70-100 For the purpose of classification, fasting Glucose from 100-125 mg/dl is considered impaired fasting Glucose (Pre-Diabetic) by the [place] [employer].Fasting Glucose > 125 mg/dl is indicative of Diabetes Mellitus, but must be confirmed. BUN (test code = BUN) 11 mg/dl 6-24 Creatinine (test code = CREAT) 0.77 mg/dl 0.50-1.10 The new Creatinine a tod is IDMS-traceable. Reference ranges and GFR calculations have been updated. Sodium (test code = NA) 142 mmol/L 135-145 Potassium (test code = K) 3.6 mmol/L 3.7-5.1 Specimen is hemolyze d. Ammonia, AST, Potassium, LDH, CPK,Magnesium, Iron, and total IBC results could be increased if tested on this sample. Folate could be decreased if tested on this sample. Chloride (test code = CL) 109 mmol/L 96-110 CO2 (test code = CO2) 26.0 mmol/L 22.0-32.0 AGAP (test code = AGAP) 11 mmol/L <=20 Calcium (test code = CA) 8.6 mg/dl 8.5-10.5 GFR if -[place] (test code = GFRAA) >90 mL/min/1.73 m2 >=90 GFR if not -[place] (test code = GFRNAA) 81 mL/min/1.73 m2 >=90 *NOTE: GFR is a calc ulated estimate of the glomerular filtration rate.* [id number] 08:36:00* Test Item Value Reference Range Comments WBC (test code = WBC) 7.4 k/ul 4.0-12.0 RBC (test code = RBC) 5.23 m/ul 3.50-5.30 Hemoglobin (test code = HGB) 14.8 gm/dl 12.0-16.0 Hematocrit (test code = HCT) 44.4 % 36.0-48.0 MCV (test code = MCV) 85 fl 80-100 MCH (test code = MCH) 28.3 pg 26.0-34.0 MCHC (test code = MCHC) 33.3 gm/dl 30.0-37.0 RDW (test code = RDW) 15.1 % 11.5-15.0 Platelet (test code = PLT) 299 k/ul 140-440 MPV (test code = MPV) 11.3 fl 8.5-12.5 .Differential, [id number] 08:36:00* Test Item Value Reference Range Comments Neutrophils (test code = ASEG) 61 % IG (test code = IG%) 0 % Lymphs (test code = PLYM) 30 % Monos (test code = PMONO) 5 % Eos (test code = PEOS) 3 % Basos (test code = PBASO) 0 % Neutro, Absolute (test code = ASE) 4.5 k/ul 1.5-8. 0 IG Abs (test code = IG) 0.0 k/ul 0.0-0.1 Lymph Absolute (test code = ALYM) 2.2 k/ul 1.0-4.5 [place] Absolute (test code = AMONO) 0.4 k/ul 0.1-1.1 Eos Abs (test code = AEOS) 0.2 k/ul 0.0-0.4 Baso Absolute (test code = ABASO) 0.0 k/ul 0.0-0.1 GFR [id number] 08:35:00* Test Item Value Reference Range Comments GFR if -[place] (test code = GFRAA) >90 mL/min/1.73 m2 >=90 GFR if not -[place] (test code = GFRNAA) >90 mL/min/1.73 m2 >=90 *NOTE: GFR is a calc ulated estimate of the glomerular filtration rate.* iStat [id number] 08:35:00* Test Item Value Reference Range Comments Creat POCT (test code = CREATRLS) 0.6 mg/dl 0.6-1.3 Spec Type POCT (test code = SPECRLS) Venous XR KNEE 3 VIEWS [id number] 14:11:56\X0A\EXAMINATION:Right knee, 4 views\X0A\\X0A\INDICATION:Encounter for general adult medical examination without abnormal findings\X0A\\X0A\COMPARISON: 06/28/2014\X0A\\X0A\DISCUSSION: There is a total knee arthroplasty including patellar resurfacing. The hardware is intact and shows no evidence of loosening. No fracture or dislocation. No joint effusion or soft tissue abnormality. An included AP view of the left knee also \X0A\shows a total knee arthroplasty.\X0A\\X0A\IMPRESSION\X0A\: Stable rig ht total knee arthroplastyFL MOBILE FLUOROSCOPY LESS THAN 1 [id number] 13:11:47\X0A\This is a non-reportable study with no radiologist dictation. Please refer to PACS to view theimages.CMP with [id number] 09:33:00* Test Item Value Reference Range Comments Glucose (test code = GLUC) 94 mg/dl 70-100 For the purpose of classification, fasting Glucose from 100-125 mg/dl is considered impaired fasting Glucose (Pre-Diabetic) by the [place] [employer].Fasting Glucose > 125 mg/dl is indicative of Diabetes Mellitus, but must be confirmed. BUN (test code = BUN) 8 mg/dl 6-24 Creatinine (test code = CREAT) 0.87 mg/dl 0.50-1.10 The new Creatinine a ssay is IDMS-traceable. Reference ranges and GFR calculations have been updated. Sodium (test code = NA) 135 mmol/L 135-145 Potassium (test code = K) 3.8 mmol/L 3.7-5.1 Sp ecimen is hemolyzed. Ammonia, AST, Potassium, LDH, CPK,Magnesium, Iron, and total IBC results could be increased if tested on this sample. Folate could be decreased if tested on this sample. Chloride (test code = CL) 100 mmol/L 96-110 CO2 (test code = CO2) 28.0 mmol/L 22.0-32.0 AGAP (test code = AGAP) 11 mmol/L <=20 Calcium (test code = CA) 8.7 mg/dl 8.5-10.5 Total Protein (test code = TP) 7.2 gm/dl 6.0-8.4 Albumin (test code = ALB) 3.9 gm/dl 3.5-5.0 Globulin (test code = GLOB) 3.3 gm/dl 2.0-4.4 AST (test code = AST) 17 u/l 10-40 Specim en is hemolyzed. Ammonia, AST, Potassium, LDH, CPK,Magnesium, Iron, and total IBC results could be increased if tested on this sample. Folate could be decreased if tested on this sample. Alkaline Phosphatase (test code = ALKP) 118 u/l 33-138 Bilirubin Total (test code = TBIL) 0.3 mg/dl 0.0-1.5 ALT (test code = ALT) 13 u/l 12-78 GFR if -[place] (test code = GFRAA) 81 mL/min/1.73 m2 >=90 GFR if not -[place] (test code = GFRNAA) 70 mL/min/1.73 m2 >=90 *NOTE: GFR is a calc ulated estimate of the glomerular filtration rate.* CT CHEST WITH [id number] 09:14:36Labs ct chest w No contrast allergyTo dr whitney arora\X0A\REASON FOR EXAM: Non-small cell lung cancer\X0A\\X0A\DISCUSSION:\X0A\\X0A\COMPARISON: 05/01/2018\X0A\\X0A\TECHNIQUE: Multiple axial CT images obtained from the thoracic inlet through the upper ab domen after administration of 75 cc Isovue-370 IV contrast. Sagittal and coronal reformatted imageswere reviewed.\X0A\\X0A\FINDINGS:\X0A\\X0A\Lungs: Small focal groundglass opacities within the right upper lobe minimal subpleural nodularity right lower lobe laterally image 107. Numerous focal groundglass opacities in the right upper lobe seen on images 26 through 44 and stable from prior\X0A\ exa m. Numerous lung nodules within the superior portion of the left lower lobe spanning images 19 through 41 without change. Index nodule image 27 measuring 5 mm stable. Another nodule image 33 measuring 5 mm table. Largest nodule image 38 measuring 7 \X0A\mm stable. Other smaller nodules are stable.\X 0A\\X0A\Mediastinum: Shift of mediastinal structures to the left related to left upper lobectomy. Vascular calcifications including coronary artery calcifications. No pneumothorax or pleural effusion. No pathologic mediastinal adenopathy. Cardiac chambers \X0A\normal in size and configuration. Softtissues of the chest within normal limits. Thoracic inlet structures unremarkable.\X0A\\X0A\Irregular enhancement of the spleen likely related to phase of contrast injection and was seen on the priorexam. Left renal cyst. Small hiatal hernia.\X0A\\X0A\Bones: T12 compression deformity redemonstrated .\X0A\\X0A\IMPRESSION\X0A\\X0A\\X0A\1. No significant interval change focal groundglass opacities right upper lobe. Attention on follow-up.\X0A\2. Numerous small left lung nodules unchanged. Attention on follow-up.\X0A\3. Other incidental findings detailed above stable.\X0A\F/u ca lung\X0A\75cc isovueCBC 2018-08-18 09:14:00* Test Item Value Reference Range Comments WBC (test code = WBC) 7.8 k/ul 4.0-12.0 RBC (test code = RBC) 5.55 m/ul 3.50-5.30 Hemoglobin (test code = HGB) 15.1 gm/dl 12.0-16.0 Hematocrit (test code = HCT) 46.8 % 36.0-48.0 MCV (test code = MCV) 84 fl 80-100 MCH (test code = MCH) 27.2 pg 26.0-34.0 MCHC (test code = MCHC) 32.3 gm/dl 30.0-37.0 RDW (test code = RDW) 14.0 % 11.5-15.0 Platelet (test code = PLT) 271 k/ul 140-440 MPV (test code = MPV) 9.0 fl 8.5-12.5 .Differential, [id number] 09:14:00* Test Item Value Reference Range Comments Neutrophils (test code = ASEG) 70 % IG (test code = IG%) 0 % Lymphs (test code = PLYM) 22 % Monos (test code = PMONO) 6 % Eos (test code = PEOS) 1 % Basos (test code = PBASO) 0 % Neutro, Absolute (test code = ASE) 5.5 k/ul 1.5-8. 0 IG Abs (test code = IG) 0.0 k/ul 0.0-0.1 Lymph Absolute (test code = ALYM) 1.7 k/ul 1.0-4.5 H[place]go Absolute (test code = AMONO) 0.5 k/ul 0.1-1.1 Eos Abs (test code = AEOS) 0.1 k/ul 0.0-0.4 Baso Absolute (test code = ABASO) 0.0 k/ul 0.0-0.1 GFR [id number] 08:47:00* Test Item Value Reference Range Comments GFR if -[place] (test code = GFRAA) >90 mL/min/1.73 m2 >=90 GFR if not -[place] (test code = GFRNAA) >90 mL/min/1.73 m2 >=90 *NOTE: GFR is a calc ulated estimate of the glomerular filtration rate.* iStat [id number] 08:47:00* Test Item Value Reference Range Comments Creat POCT (test code = CREATRLS) 0.7 mg/dl 0.6-1.3 Spec Type POCT (test code = SPECRLS) Venous FL FLUOROSCOPY [id number] 19:44:38\X0A\This is a non-reportable study with no radiologist dictation. Please refer to PACS to view theimages.MAMMO DIGITAL 3D DIAGNOSTIC UNILATERAL [id number] 08:25:57\X0A\REASON FOR EXAM: Asymmetry in the upper outer portion of the right breast seen on the screening mammogram\X0A\\X0A\DISCUSSION:\X0A\Digital mammogram of the right breast 06/22/2018. Reconstructed straight mediolateral and cone compression views of the upper outer portion of the right breast in the oblique and craniocaudad views are obtained in conjunction with 3-D digital clarence \X0A\symphysis of the right breast. It is compared with the screening study of 06/13/2018. Area of architectural distortion in the upper outer portion of the right breast is well evaluated. Normal-appearing breast parenchyma is seen. No masses or malignant \X0A\type calcifications are noted. Solution of calcifications are present.\X0A\\X0A\IMPRESSION\X0A\\X0A\\X0A\1. Area of abnormality noted on the screening study corresponds to normal-appearing breast parenchyma.\X0A\2. No evidence of malignancy.\X0A\3. Recommendation is yearly screening mammography.\X0A\\X0A\ASSESSMENT: BI-RADS 2-benign\X0A\MRI THORACIC SPINE WITHOUT [id number] 10:47:36\X0A\REASON FOR EXAM: Compression fracture of body of thoracic vertebra (HCC) [S22.000A (ICD-10-CM)], lung cancer\X0A\\X0A\TECHNIQUE: 1.5 Magda. Sagittal T1, sagittal T2, sagittal STIR and axial T1 and T2-weighted images of the thoracic spine.\X0A\\X0A\DISCUSSION:\X0A\\X0A\The study was compared toprior CT scan from May 01, 2018. There is a superior endplate compression fracture of the T12 vertebral body. This is seen as predominantly a focal area of Schmorl's node and mild loss of height of the body. There is \X0A\localized edema along the Schmorl's node with the remaining aspect of thevertebral body without significant marrow edema. Findings are suggestive of a subacute/chronic fracture deformity. The remaining aspect of the thoracic spine demonstrates no area \X0A\of additional compression deformity. There is no focal area of marrow signal abnormality to suggest tumor or infection. The spinal cord is noted to be normal. No cord edema, syrinx or cord expansion. No extra-axial fluid collection.\X0A\\X0A\At T12-L1 the disc space is narrowed. There is diffuse disc bulge with anendplate osteophytic ridge. There is a right foraminal disc protrusion. There are facet degenerative changes. There is mild right foraminal stenosis. No central canal stenosis.\X0A\\X0A\At T11-12 thedisc space demonstrates a prominent Schmorl's node. There is a right paracentral disc protrusion with mild right foraminal stenosis. There is no central canal stenosis. There are mild facet degenerative changes.\X0A\\X0A\At T10-11 the disc is of normal height. There is minimal endplate osteophytic ridge. There are facet degenerative changes. No stenosis.\X0A\\X0A\At T9-10 the disc demonstrates preservation of height. There is an endplate osteophytic ridge. There are facet degenerative changes.\X0A\\X0A\At T8-9 the disc demonstrates mild loss of height. There are facet degenerative changes. There is no stenosis.\X0A\\X0A\At T7-8 the disc space demonstrates a small to moderate-sized central disc protrusion. This abuts and effaces the ventral margin thecal sac and spinal cord. There is mild central canal stenosis.\X0A\\X0A\At T6-7 the disc space is demonstrating a endplate osteophytic ridge. There is no central or foraminal stenosis.\X0A\\X0A\At T5-6 the disc demonstrates an endplate osteophytic ridge. There are mild facet degenerative changes. No stenosis.\X0A\\X0A\At T4-5 the disc demonstrates narrowing. There is an endplate osteophytic ridge. There are facet degenerative changes.\X0A\\X0A\At T3-4 the disc demonstrates narrowing. There is an osteophytic ridge. There are facet degenerative changes. No stenosis.\X0A\\X0A\At T2-3 the disc space is demonstrating preservation of heig ht. There are facet degenerative changes. No stenosis.\X0A\\X0A\At T1-2 the disc is demonstrating normal height. There is no central or foraminal stenosis.\X0A\\X0A\IMPRESSION\X0A\\X0A\\X0A\1. T12 compression fracture demonstrates near-complete healing. There is a prominent Schmorl's node along thesuperior endplate with some reactive edema along the Schmorl's node itself.\X0A\2. Small moderate-sized central/left paracentral disc protrusion at T7-8 causing mild central canal stenosis.\X0A\3. Multilevel degenerative spondylosis.\X0A\\X0A\Mid backpain/hx ca lung/ro com[ fxMAMMO DIGITAL 3D SCREENING [id number] 09:37:34\X0A\INDICATION:\X0A\Routine screening.\X0A\\X0A\COMPARISON:\X0A\Prior studies including 01/17/2017.\X 0A\\X0A\EXAM:\X0A\BILATERAL DIGITAL SCREENING MAMMOGRAM WITH COMPUTER-AIDED DETECTION AND 3-D TOMOSYNTHESIS PROJECTIONS:\X0A\Bilateral CC and MLO tomosynthesis projections and composite views were obt ained.\X0A\\X0A\FINDINGS:\X0A\There are scattered areas of fibroglandular density.\X0A\\X0A\Asymmetry in the upper right breast on MLO view at mid- posterior depth, located within the outer breast according to tomosynthesis slices. There is no other evidence of suspicious mass, architectural distortion or suspicious microcalcifications.\X0A\\X0A\The exam was also reviewed with computer-aided detection.\X0A\\X0A\IMPRESSION\X0A\\X0A\Breast parenchyma: Scattered fibroglandular.\X0A\Asymmetry in theupper right breast.\X0A\\X0A\RECOMMENDATION:\X0A\Diagnostic evaluation of the right breast including spot compression MLO view, spot compression CC view (outer one third of breast), ML view, and possible ultrasound.\X0A\\X0A\BI-RADS Category 0: Incomplete\X0A\Incomplete - Needs Additional Imaging Evaluation\X0A\\X0A\The breast density, results and recommendation were communicated to the patient in writing.[id number] 16:31:00* Test Item Value Reference Range Comments Hgb A1c (test code = A1C) 6.0 % 4.5-5.6 Th e [place] [employer] clinical practice recommendation has recently added HgbA1c as a test for diagnosing Diabetes and Pre-Diabetes. A HbgA1c level of 5.7-6.4% is considered Pre-Diabetic and a HgbA1c level of 6.5% or greater is considered Diabetic. A1c Mean Glucose (test code = MBG) 125.5 mg/dl Lipid Panel (no LDL Reflexed)2018-05-15 15:53:00* Test Item Value Reference Range Comments Cholesterol (test code = CHOL) 180 mg/dl 120-200 Triglyceride (test code = TRIG) 156 mg/dl <=149 HDL-C (test code = HDL) 40 mg/dl 40-60 LDL Calc (test code = LDL) 109 mg/dl <=99 Chol/HDL-C Ratio (test code = RCH) 4.5 ratio <=4.4 Non-HDL Cholesterol (test code = NONHDL) 140 mg/dl The reference range is the patient's target low density lipoprotein plus 30. VLDL Calc (test code = VLDL) 31 mg/dl <=30 LDL/HDL-C Ratio (test code = RLH) 2.7 ratio <=3.2 Risk of Developing C oronary Heart DiseaseFemale Guidelines Male GuidelinesUp to 1.5 Up to 1.0 Low Risk1.6 to 3.2 1.1 to 3.6 Average Risk3.3 to 5.0 3.7 to 6.3 Above Average Risk5.1 to 6.1 6.4 to 8.0 High Risk CMP with [id number] 15:53:00* Test Item Value Reference Range Comments Glucose (test code = GLUC) 76 mg/dl 70-100 For the purpose of classification, fasting Glucose from 100-125 mg/dl is considered impaired fasting Glucose (Pre-Diabetic) by the [place] [employer].Fasting Glucose > 125 mg/dl is indicative of Diabetes Mellitus, but must be confirmed. BUN (test code = BUN) 8 mg/dl 6-24 Creatinine (test code = CREAT) 0.70 mg/dl 0.50-1.10 The new Creatinine a ssay is IDMS-traceable. Reference ranges and GFR calculations have been updated. Sodium (test code = NA) 142 mmol/L 135-145 Potassium (test code = K) 4.0 mmol/L 3.7-5.1 Chloride (test code = CL) 107 mmol/L 96-110 CO2 (test code = CO2) 29.0 mmol/L 22.0-32.0 AGAP (test code = AGAP) 10 mmol/L <=20 Calcium (test code = CA) 9.5 mg/dl 8.5-10.5 Total Protein (test code = TP) 7.1 gm/dl 6.0-8.4 Albumin (test code = ALB) 4.0 gm/dl 3.5-5.0 Globulin (test code = GLOB) 3.1 gm/dl 2.0-4.4 AST (test code = AST) 13 u/l 10-40 Alkaline Phosphatase (test code = ALKP) 127 u/l 33-138 Bilirubin Total (test code = TBIL) 0.3 mg/dl 0.0-1.5 ALT (test code = ALT) 10 u/l 12-78 GFR if -[place] (test code = GFRAA) >90 mL/min/1.73 m2 >=90 GFR if not -[place] (test code = GFRNAA) >90 mL/min/1.73 m2 >=90 *NOTE: GFR is a calculated estimate of the glomerular filtration rate.* CMP with [id number] 10:24:00* Test Item Value Reference Range Comments Glucose (test code = GLUC) 103 mg/dl 70-100 For the purpose of classification, fasting Glucose from 100-125 mg/dl is considered impaired fasting Glucose (Pre-Diabetic) by the [place] [employer].Fasting Glucose > 125 mg/dl is indicative of Diabetes Mellitus, but must be confirmed. BUN (test code = BUN) 8 mg/dl 6-24 Creatinine (test code = CREAT) 0.72 mg/dl 0.50-1.10 The new Creatinine a ssay is IDMS-traceable. Reference ranges and GFR calculations have been updated. Sodium (test code = NA) 141 mmol/L 135-145 Potassium (test code = K) 3.6 mmol/L 3.7-5.1 Chloride (test code = CL) 106 mmol/L 96-110 CO2 (test code = CO2) 26.0 mmol/L 22.0-32.0 AGAP (test code = AGAP) 13 mmol/L <=20 Calcium (test code = CA) 9.5 mg/dl 8.5-10.5 Total Protein (test code = TP) 7.6 gm/dl 6.0-8.4 Albumin (test code = ALB) 3.9 gm/dl 3.5-5.0 Globulin (test code = GLOB) 3.7 gm/dl 2.0-4.4 AST (test code = AST) 8 u/l 10-40 Alkaline Phosphatase (test code = ALKP) 123 u/l 33-138 Bilirubin Total (test code = TBIL) 0.3 mg/dl 0.0-1.5 ALT (test code = ALT) 12 u/l 12-78 GFR if -[place] (test code = GFRAA) >90 mL/min/1.73 m2 >=90 GFR if not -[place] (test code = GFRNAA) 87 mL/min/1.73 m2 >=90 *NOTE: GFR is a calculated estimate of the glomerular filtration rate.* CT CHEST WITH [id number] 10:13:57TO Dr Olson/Nyla/Charli RN\X0A\EXAM: CT scan of the chest 05/01/2018.\X0A\\X0A\REASON FOR EXAM: 7 months postop left upper lobectomy for non-small cell lung carcinoma in a 63-year-old female.\X0A\\X0A\DISCUSSION:\X0A\Multiplethin, contiguous, dynamic CT sections were obtained through the chest following the uneventful IV administration of 75 cc of Isovue-370. Comparison is made to preoperative exams dated 08/06/2017 and 07/03/2017.\X0A\\X0A\There has been an interval left upper lobectomy with volume loss in the left hemithorax, and shift of mediastinal structures to the left. There are 4 new, small nodules in the apexof the left lower lobe, the largest of which measures 6 mm in diameter. \X0A\No pulmonary nodule inthe right hemithorax. There are 3 tiny groundglass infiltrates in the right lung. No endobronchial lesion.\X0A\\X0A\No axillary or mediastinal adenopathy. A right hilar lymph node measures 10 mm in short axis, and is unchanged in comparison to the previous exam. There are subcentimeter lymph nodes in the left hilum. No pleural effusion or pneumothorax. The thyroid is \X0A\unremarkable.\X0A\\X0A\The visualized portion of the upper abdomen reveals multiple irregular, low density lesions in the spleen, which are new in comparison to a CT scan of the abdomen dated 03/04/2017. The liver is normal size and there is hepatic steatosis with no focal \X0A\mass. The portal vein is patent. There are several small cortical scars in the superior pole of the right kidney.\X0A\\X0A\Review of the images at bone windows reveals a mild superior endplate compression fracture of T12, which is new in comparison to the prior studies. No focal osteolytic or blastic lesion, or other acute osseous abnormality.\X0A\\X0A\The heart is normal size and there is no pericardial effusion. The thoracic aorta displays early atherosclerotic disease and there is no aneurysm or dissection. The aortic arch anatomy is standard and the proximal brachiocephalic vessels are patent. No \X0A\central pulmonary embolus.\X0A\\X0A\IMPRESSION\X0A\\X0A\\X0A\1. Interval left upper lobectomy.\X0A\2. There are several small nodulesin the apex of the residual left lower lobe, new since 08/06/2017, and suspicious for metastatic disease. These nodules are too small to biopsy currently and follow-up CT scan in 2-3 months is recommended for further \X0A\evaluation.\X0A\3. Suspicious splenic lesions, which are also new.\X0A\4. New superior endplate compression deformity of T12.\X0A\5. Hepatic steatosis.\X0A\\X0A\6 month follow-upfrom having surgery on left lung, non-small cell lung cancer, unspecified laterality \X0A\\X0A\75ccIsovue [id number] 10:01:00* Test Item Value Reference Range Comments WBC (test code = WBC) 7.7 k/ul 4.0-12.0 RBC (test code = RBC) 5.66 m/ul 3.50-5.30 Hemoglobin (test code = HGB) 15.2 gm/dl 12.0-16.0 Hematocrit (test code = HCT) 47.1 % 36.0-48.0 MCV (test code = MCV) 83 fl 80-100 MCH (test code = MCH) 26.9 pg 26.0-34.0 MCHC (test code = MCHC) 32.3 gm/dl 30.0-37.0 RDW (test code = RDW) 14.4 % 11.5-15.0 Platelet (test code = PLT) 338 k/ul 140-440 MPV (test code = MPV) 9.5 fl 8.5-12.5 .Differential, [id number] 10:01:00* Test Item Value Reference Range Comments Neutrophils (test code = ASEG) 70 % IG (test code = IG%) 0 % Lymphs (test code = PLYM) 23 % Monos (test code = PMONO) 4 % Eos (test code = PEOS) 2 % Basos (test code = PBASO) 0 % Neutro, Absolute (test code = ASE) 5.4 k/ul 1.5-8. 0 IG Abs (test code = IG) 0.0 k/ul 0.0-0.1 Lymph Absolute (test code = ALYM) 1.8 k/ul 1.0-4.5 Hidalgo Absolute (test code = AMONO) 0.3 k/ul 0.1-1.1 Eos Abs (test code = AEOS) 0.2 k/ul 0.0-0.4 Baso Absolute (test code = ABASO) 0.0 k/ul 0.0-0.1 FL MOBILE FLUOROSCOPY MORE THAN 1 [id number] 11:03:06\X0A\This is a non- reportable study with no radiologist dictation. Please refer to PACS to view the images.Lipid [id number] 18:55:00* Test Item Value Reference Range Comments Cholesterol (test code = CHOL) 158 mg/dl 120-200 Triglyceride (test code = TRIG) 123 mg/dl <=149 HDL-C (test code = HDL) 49 mg/dl 40-60 Chol/HDL-C Ratio (test code = RCH) 3.2 ratio <=4.4 Non-HDL Cholesterol (test code = NONHDL) 109 mg/dl The reference range is the patient's target low density lipoprotein plus 30. LDL Calc (test code = LDL) 84 mg/dl <=99 VLDL Calc (test code = VLDL) 25 mg/dl <=30 LDL/HDL-C Ratio (test code = RLH) 1.7 ratio <=3.2 Risk of Developing C oronary Heart DiseaseFemale Guidelines Male GuidelinesUp to 1.5 Up to 1.0 Low Risk1.6 to 3.2 1.1 to 3.6 Average Risk3.3 to 5.0 3.7 to 6.3 Above Average Risk5.1 to 6.1 6.4 to 8.0 High Risk CMP with [id number] 18:55:00* Test Item Value Reference Range Comments Glucose (test code = GLUC) 70 mg/dl 70-100 For the purpose of classification, fasting Glucose from 100-125 mg/dl is considered impaired fasting Glucose (Pre-Diabetic) by the [place] [employer].Fasting Glucose > 125 mg/dl is indicative of Diabetes Mellitus, but must be confirmed. BUN (test code = BUN) 6 mg/dl 6-24 Creatinine (test code = CREAT) 0.72 mg/dl 0.50-1.10 The new Creatinine art baron is IDMS-traceable. Reference ranges and GFR calculations have been updated. Sodium (test code = NA) 141 mmol/L 135-145 Potassium (test code = K) 3.7 mmol/L 3.7-5.1 Chloride (test code = CL) 107 mmol/L 96-110 CO2 (test code = CO2) 25.0 mmol/L 22.0-32.0 AGAP (test code = AGAP) 13 mmol/L <=20 Calcium (test code = CA) 9.3 mg/dl 8.5-10.5 Total Protein (test code = TP) 6.7 gm/dl 6.0-8.4 Albumin (test code = ALB) 3.8 gm/dl 3.5-5.0 Globulin (test code = GLOB) 2.9 gm/dl 2.0-4.4 AST (test code = AST) 21 u/l 10-40 Alkaline Phosphatase (test code = ALKP) 104 u/l 33-138 Bilirubin Total (test code = TBIL) 0.4 mg/dl 0.0-1.5 ALT (test code = ALT) 19 u/l 12-78 GFR if -[place] (test code = GFRAA) >90 mL/min/1.73 m2 >=90 GFR if not -[place] (test code = GFRNAA) 87 mL/min/1.73 m2 >=90 *NOTE: GFR is a calculated estimate of the glomerular filtration rate.* [id number] 18:46:00* Test Item Value Reference Range Comments WBC (test code = WBC) 7.2 k/ul 4.0-12.0 RBC (test code = RBC) 5.37 m/ul 3.50-5.30 Hemoglobin (test code = HGB) 14.2 gm/dl 12.0-16.0 Hematocrit (test code = HCT) 44.0 % 36.0-48.0 MCV (test code = MCV) 82 fl 80-100 MCH (test code = MCH) 26.4 pg 26.0-34.0 MCHC (test code = MCHC) 32.3 gm/dl 30.0-37.0 RDW (test code = RDW) 15.4 % 11.5-15.0 Platelet (test code = PLT) 295 k/ul 140-440 MPV (test code = MPV) 10.0 fl 8.5-12.5 .Differential, [id number] 18:46:00* Test Item Value Reference Range Comments Neutrophils (test code = ASEG) 67 % IG (test code = IG%) 0 % Lymphs (test code = PLYM) 25 % Monos (test code = PMONO) 6 % Eos (test code = PEOS) 2 % Basos (test code = PBASO) 0 % Neutro, Absolute (test code = ASE) 4.8 k/ul 1.5-8. 0 IG Abs (test code = IG) 0.0 k/ul 0.0-0.1 Lymph Absolute (test code = ALYM) 1.8 k/ul 1.0-4.5 Hidalgo Absolute (test code = AMONO) 0.4 k/ul 0.1-1.1 Eos Abs (test code = AEOS) 0.1 k/ul 0.0-0.4 Baso Absolute (test code = ABASO) 0.0 k/ul 0.0-0.1 [id number] 10:37:00* Test Item Value Reference Range Comments PTT (test code = PTTAVE) 29.0 sec 22.8-33.9 Hep jesus alberto THERAPEUTIC RANGE = 50 - 80 sec [id number] 10:37:00* Test Item Value Reference Range Comments PT (test code = PTAVE) 10.7 sec 9.6-11.9 INR (test code = PTINR) 1.0 0.9-1.1 Warf jesus alberto THERAPEUTIC INR RANGE = 2.0 - 3.0 BMP with [id number] 23:39:00* Test Item Value Reference Range Comments Glucose (test code = GLUC) 99 mg/dl 70-100 For the purpose of classification, fasting Glucose from 100-125 mg/dl is considered impaired fasting Glucose (Pre-Diabetic) by the [place] [employer].Fasting Glucose > 125 mg/dl is indicative of Diabetes Mellitus, but must be confirmed. BUN (test code = BUN) 12 mg/dl 6-24 Creatinine (test code = CREAT) 0.76 mg/dl 0.50-1.10 The new Creatinine a tod is IDMS-traceable. Reference ranges and GFR calculations have been updated. Sodium (test code = NA) 138 mmol/L 135-145 Potassium (test code = K) 4.2 mmol/L 3.7-5.1 Chloride (test code = CL) 102 mmol/L 96-110 CO2 (test code = CO2) 30.0 mmol/L 22.0-32.0 AGAP (test code = AGAP) 10 mmol/L <=20 Calcium (test code = CA) 9.7 mg/dl 8.5-10.5 GFR if -[place] (test code = GFRAA) >90 mL/min/1.73 m2 >=90 GFR if not -[place] (test code = GFRNAA) 82 mL/min/1.73 m2 >=90 *NOTE: GFR is a calc ulated estimate of the glomerular filtration rate.* [id number] 23:24:00* Test Item Value Reference Range Comments WBC (test code = WBC) 8.8 k/ul 4.0-12.0 RBC (test code = RBC) 6.09 m/ul 3.50-5.30 Hemoglobin (test code = HGB) 15.9 gm/dl 12.0-16.0 Hematocrit (test code = HCT) 50.5 % 36.0-48.0 MCV (test code = MCV) 83 fl 80-100 MCH (test code = MCH) 26.1 pg 26.0-34.0 MCHC (test code = MCHC) 31.5 gm/dl 30.0-37.0 RDW (test code = RDW) 15.6 % 11.5-15.0 Platelet (test code = PLT) 348 k/ul 140-440 MPV (test code = MPV) 10.2 fl 8.5-12.5 Nucleated RBC (test code = NRBCI) 0 /100 WBC <=0 .Differential, [id number] 23:24:00* Test Item Value Reference Range Comments Neutrophils (test code = ASEG) 68 % IG (test code = IG%) 0 % Lymphs (test code = PLYM) 25 % Monos (test code = PMONO) 4 % Eos (test code = PEOS) 2 % Basos (test code = PBASO) 0 % Neutro, Absolute (test code = ASE) 6.0 k/ul 1.5-8. 0 IG Abs (test code = IG) 0.0 k/ul 0.0-0.1 Lymph Absolute (test code = ALYM) 2.2 k/ul 1.0-4.5 Hidalgo Absolute (test code = AMONO) 0.4 k/ul 0.1-1.1 Eos Abs (test code = AEOS) 0.2 k/ul 0.0-0.4 Baso Absolute (test code = ABASO) 0.0 k/ul 0.0-0.1 FL FLUOROSCOPY [id number] 08:09:07Cervical Epidural Steroid Injection with Fluoroscopy\X0A\This is a non-reportable study with no radiologist dictation. Please refer to PACS to view theimages.XR HAND MINIMUM 3 VIEWS RIGHT 2017-11-17 20:32:57\X0A\REASON FOR EXAM: Pain, swelling\X0A\\X0A\DISCUSSION:\X0A\The bones of the hand demonstrate no acute fracture or dislocation. The soft tissues demonstrate no evidence for foreign body. There is arthritic changes of the first metacarpal carpal joint space. The distal radius and ulna appear normal. 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 Fall.XR WRIST MINIMUM 3 VIEWS [id number] 20:31:50 \X0A\REASON FOR EXAM: Pain, swelling\X0A\\X0A\DISCUSSION:\X0A\The distal radius and ulna are intact. The carpal and a portion of the metacarpal bones as visualized demonstrate no evidence of fractureor dislocation. 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 Fall.Urine Culture 2017-11-02 23:53:00IBIS TAY [id number]: Bacterial Culture UrineSOURCE: Urine COLLECTED: 11/01/2017 09:50CDTBODY SITE:FREE TEXT SOURCE: STARTED: 11/01/2017 13:28CDTACCESSION: [id number] FINAL REPORT Final ReportVerified:11/02/2017 23:53 CDT>100,000 cfu/ml Escherichia coliwith 10,000 cfu/mlMixed Gram Positive species present, compatible withcontamination, faulty collection or transportation.. No susceptibilitiesperformed. SUSCEPTIBILITY RESULTS EscherichiacoliMDIL MINTAmpicillin <=2 SCefazolin (Urine) <=4 SCeftriaxone <=1 SCiprofloxacin <=0.25 SGentamicin <=1 SLevofloxacin <=0.12 SNitrofurantoin <=16 STrimethoprim/Sulfa <=1/19 SS=Susceptible, I=Intermediate, R=Resistant, N/A=Not Jhwfwdgupl38/18/2018 14:20 CDT Bacterial Culture Urine:Test performed at [facility] , [address] [place] [address] Culture Urine Interpretive ResultsPer [facility] regulations [id number] (Communicable Diseases); mandated results are reported to [facility], Division of PublicHealth, Office of Epidemiology, [address] [place] [address]. .Urinalysis 2017-11-01 11:43:00* Test Item Value Reference Range Comments Color (test code = COLOR) PAMELA Yellow Appearance (test code = GIULIANO) CLOUDY Clear Glucose (test code = UGLUC) NEGATIVE Negative Bilirubin (test code = BILE) SMALL Negative No confirmatory reagent available. Urine bilirubin result may be erroneous. Ketones (test code = UKET) NEGATIVE Negative Specific Mcintyre (test code = SPGR) 1.038 <=1.030 Blood (test code = UBLD) NEGATIVE Negative pH (test code = UPH) 5.0 4.5-8.0 Protein (test code = UPROT) NEGATIVE Negative Urobilinogen (test code = URO) 1.0 EU/dl 0.2-1.0 Nitrite (test code = NIT) POSITIVE Negative Leukocyte Esterase (test cod e = LEST) MODERATE Negative .Urinalysis [id number] 11:43:00* Test Item Value Reference Range Comments RBC (test code = URBC) 2-5 <=5 WBC (test code = UWBC) >100 <=5 Bacteria (test code = BACT) >300 <=10 Hyaline Cast (test code = HYAL) 2-5 <=2 Squamous Epithelial (test code = USQEPI) 10-20 <=5 Culture if [id number] 11:43:00* Test Item Value Reference Range Comments Culture if indicated (test c ode = CULORD) Yes If Culture Ordered? is Yes, culture results will be available on-line within 24-48 hours. Corrected [id number] 16:15:00IBIS TAY [id number] Report InfoThis report is amended to correct the final staginginformation based upon the new criteria for evaluationof visceral pleural invasion. Previously, penet rationof the inner visceral elastica was considered to bepositive for visceral pleural invasion; however, thecurrent criteria require penetration of the thickerelastica, which is the outer visceral elastica in thiscase. Thus these findings do not qualify as visceralplerual invasion, according to the current consensuscriteria. The staging information has been changed yfbqvB5c to pT1b.Changes called to Dr. Maxwell Moore, 10-20-2017, 4:00 p.m.(WWW).DiagnosisA. #8 LYMPH NODE, EXCISION:ONE BENIGN LYMPH NODE (0/1).B. STATION 4 LYMPH NODE, EXCISION:ONE BENIGN LYMPH NODE (0/1).C. 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 STATION 9 LYMPH NODE, EXCISION:ONE BENIGN LYMPH NODE (0/1).IBIS TAY [id number]. STATION 7 LYMPH NODE, EXCISION:ONE BENIGN LYMPH NODE (0/1).SYNOPTIC REPORT FOR ADENOCARCINOMA OF LEFT LUNG:Specimen: LEFT UPPER LOBE OF LUNG.Procedure: LOBECTOMY.Specimen Laterality: LEFT.Tumor Site: UPPER LOBE.Tumor Size:Greatest Dimension: 1.5 CM IN DIAMETER.Tumor Focality: SINGLE TUMOR.Histologic Type: INVASIVE ADENOCARCINOMA, PAPILLARYPREDOMINANT.Histologic Grade: G1: WELL-DIFFERENTIATED.Visceral Pleural Invasion: NOT IDENTIFIED.Lymphovascular Invasion: NOT IDENTIFIED.Direct Invasion of Adjacent Structures: NO ADJACENTSTRUCTURES PRESENT.Margins: ALL MARGINS ARE UNINVOLVED BY CARCINOMA.Margins Examined: BRONCHIAL, VASCULAR, PARENCHYMALMARGINS.Treatment Effect: NO KNOWN PRESURGICAL THERAPY.Regional Lymph Nodes:# of Lymph Nodes Involved: 0.# of Lymph Nodes Examined: 14.Pathologic Stage Classification (pTNM, AJCC 8th ed):Primary Tumor (pT): pT1b.Regional Lymph Nodes (pN): pN0: NO RE GIONAL LYMPHNODE METASTASIS.Sujata/IBIS Delgado [id number] Crain M.D., Resident PathologistCommentThe pathologic examination demonstrates a 1.5- cmadenocarcinoma with a papillary predominantpattern. Inat least one microscopic focus, tumor penetrates theinner elastic tissue layer, but doesnot penetrate thethicker outer visceral pleural elastica. This isconsidered PL0 by current criteria. While penetrationof the inner elastica was considered visceral invasionat one time, the current criteria require penetrationof the thicker elastica, which is the outer elastica inthis case. The lymph nodes are negative for metastaticdisease. The surgical margins are free of tumor.WWest/cabClinical InformationReason for Procedure/Diagnosis: Malignant neoplasm ofupper lobe, left bronchus or lung.Procedure: Left upper lobectomy.Gross DescriptionThe specimen is received in five formalin-filledcontainers, all labeled Ibis Tay, date ofbirth 1955.Container A is additionally labeled #8 lymph node.The specimen consists of a moderately firm garcia-whitelymph node measuring 0.6 cm in greatest dimension. Itis embedded in a small amount of fibroadipose tissue.The specimen is bisected and entirely submitted incassette A1.Container B is additionally labeled station 4. Thespecimen consists of a moderately firm garcia-white lymphnode measuring 1.3 cm in greatest dimension. It isembedded in a small amount of fibroadipose tissue. Theentire specimen is bisected and entirely submitted incassette B1.IBIS TAY D [id number]/kmtPstockbridge C is additionally labeled left upper lobectomy.The specimen consists of a segment of allred-red lungtissue measuring 17.0 x 14.5 x 3.0 cm. There aremultiple roman attached to the surgical resectionmargin of the specimen. A firm 1.5-cm diameter nodulecan be palpated at the superior posterior aspect of thespecimen, about 4.5 cm away to the bronchus margin and5.0 cm away to the vascular margin. The pleuralsurface of the specimen is smooth and glisteningwithout any puckering. The surgical resection marginand the pleural surface of the nodule is inked blue.After removing the staple line, the specimen isserially sectioned, reveals the cutsurface of the lungtissue is red with spongy consistency. There is aslightly pale solid ill-definednodule (1.5 cmdiameter) identified, about 3.0 cm away to the bronchusresection margins. The mass isreaching the pleuralsurface but not abuts or causing the puckering. Thecut surface of the nodule is heterogeneous with focalarea of necrosis. The specimen is submitted asfollows:LEGEND:C1, Bronchus resection marginsC2-C6, Mass, serially sectioned and entirely submittedC7, Uninvolved lung parenchymaand vascular marginsC8 and C9, Hilar lymph nodes, bisectedXZhao/cabPart D is additionally labeled station 9. Thespecimen consists of a moderately firm garcia-white lymphnode measuring 0.5 cm in greatest dimension. It isembedded in a small amount of fibroadipose tissue. Onsectioning, the node presents smooth garcia-white cutsurfaces. The specimen is bisected and entirelysubmitted in cassette E1.Container E is additionally labeled station 7. ThespecimenNIBIS HOOK Jose Angel [id number] of a moderately firm garcia-white lymph nodemeasuring 0.5 cm in greatest dimension. It is embeddedin a small amount of fibroadipose tissue. Onsectioning, the node presents smooth garcia-white cutsurfaces. The entire specimen is bisected andsubmitted in cassette E1.SKwon/kmtMicroscopic DescriptionA microscopic examination was performed to arrive atthe diagnostic conclusion reported.XZhao:WWest/cabVerhoffs elastic stain is performed on block C4 withadequate control.Charles Crain M.D., Resident Pathologist, within theDepartment of Pathology Resident Physician TrainingProgram, assisted in the evaluation and reporting ofthese specimens under my personal supervision. Thegross examination was performed by myself,or by aComplete report available in LaboratoryXR CHEST 1 [id number] 07:36:25\X0A\INDICATION: Pneumothorax.\X0A\\X0A\COMPARISON: 2:30 08/06/2017.\X0A\\X0A\TECHNIQUE: Single upright AP view chest x- ray.\X0A\\X0A\FINDINGS:\X0A\Interval removal of left thoracostomy tube. Minimal interval increase in size of a trace left apical pneumothorax, with of 6 mm apical pleural separation from 4 mm on prior, although comparison is limited due to differences in technique. Apparent \X0A\improved aeration of the left lung with persistent left basilar infiltrate. Mild bibasilar atelectasis. Mild pulmonary vascular congestion. Unchanged osseous structures.\X0A\\X0A\IMPRESSION\X0A\\X0A\1. Interval removal of left thoracostomy tube.\X0A\2. Minimal interval increase in a trace left apical pneumothorax, although comparison is limited secondary to differences in technique.\X0A\3. Improved aeration of the left lung with persistent left basilar infiltrates.\X0A\\X0A\Findings were discussed with the floor nurse at 5:45 AM on 10/18/2017.\X0A\\X0A\I, Dr Lagunas, have personally reviewed theimages and the resident's interpretation and agree with the findings above.XR CHEST 1 [id number] 07:54:10\X0A\INDICATION: Pneumothorax.\X0A\\X0A\COMPARISON: 10/14/2017.\X0A\\X0A\TECHNIQUE: Single upright AP view chest x- ray.\X0A\\X0A\FINDINGS:\X0A\Patient is mildly rotated. Left apically oriented thoracostomy tube. No change in trace left apical pneumothorax. Interval increased density throughout the left lung. Right lung is clear. Decreased pulmonary vessel congestion. Heart border is obscured. \X0A\Unchanged osseous structures.\X0A\\X0A\IMPRESSION\X0A\\X0A\1. Increased density throughout the leftlung may relate to increased infiltrate, atelectasis, and/or pleural fluid.\X0A\2. Unchanged trace left apical pneumothorax.\X0A\3. Decreased pulmonary vascular congestion.\X0A\\X0A\I was involved inthe evaluation of these images and agree with the interpretation.\X0A\Post op\X0A\RM 593Surg Path Final [id number] 14:52:00IBIS TAY [id number]. #8 LYMPH NODE, EXCISION:ONE BENIGN LYMPH NODE (0/1).B. STATION 4 LYMPH NODE, EXCISION:ONE BENIGN LYMPH NODE (0/1).C. LUNG, LEFT UPPER LOBE, LOBECTOMY:INVASIVE A DENOCARCINOMA, PAPILLARY PREDOMINANT (95%)WITH A MINOR ACINAR COMPONENT (5%)..MAXIMUM TUMOR DIMENSION: 1.5 CM.FOCAL VISCERAL PLEURA INVASION IS PRESENT (SEECOMMENT).SEVEN BENIGN PERIBRONCHIAL LYMPH NODES (0/7).PATHOLOGIC STAGE: pT2a, pN0, pMX.PLEASE SEE SYNOPTIC REPORT BELOW.D. STATION 9 LYMPH NODE, EXCISION:ONE BENIGN LYMPH NODE (0/1).E. STATION 7 LYMPH NODE, EXCISION:ONE BENIGN LYMPH NODE (0/1).SYNOPTIC REPORT FOR ADENOCARCINOMA OF LEFT LUNG:Specimen: LEFT UPPER LOBE OF LUNG.Procedure: LOBECTOMY.Specimen Laterality: LEFT.Tumor Site: UPPER LOBE.Tumor Size:Greatest Dimension: 1.5 CM IN DIAMETE R.Tumor Focality: SINGLE TUMOR.IBIS TAY [id number] Type: INVASIVE ADENOCARCINOMA,PAPILLARYPREDOMINANT.Histologic Grade: G1: WELL- DIFFERENTIATED.Visceral Pleural Invasion: FOCALLY PRESENT.Lymphovascular Invasion: NOT IDENTIFIED.Direct Invasion of Adjacent Structures: NO ADJACENTSTR UCTURES PRESENT.Margins: ALL MARGINS ARE UNINVOLVED BY CARCINOMA.Margins Examined: BRONCHIAL, VASCULAR, PARENCHYMALMARGINS.Treatment Effect: NO KNOWN PRESURGICAL THERAPY.Regional Lymph Nodes:# of Lymph Nodes Involved: 0.# of Lymph Nodes Examined: 14.Pathologic Stage Classification (pTNM, AJCC 8th ed):Primary Tumor (pT): pT2a: (Focal visceral pleuralinvasion in tumor <4 cm).Regional Lymph Nodes(pN): pN0: NO REGIONAL LYMPHNODE METASTASIS.Sujata/Veto Crain M.D., Resident PathologistAudelia Turner M.D, Staff PathologistLKS [id number] [place], [place] [address]Verified&Electronically Signed: 10/14/2017 2:52 PMThe pathologist(s) listed have reviewed, edited and approved the f inaldiagnosis.Clinical InformationReason for Procedure/Diagnosis: Malignant neoplasm ofupper lobe, left bronchus or lung.Procedure: Left upper lobectomy.IBIS TAY [id number] specimen is received in five formalin-filledcontainers, all labeled Ibis Tay., date ofbirth 1955.Container A is additionally labeled #8 lymph node.The specimen consists of a moderately firm garcia-whitelymph node measuring 0.6 cm in greatest dimension. Itis embedded in a small amount of fibroadipose tissue.The specimen is bisected and entirely submitted incassette A1.Container B is additionally labeled station 4. Thespecimen consists of a moderately firm garcia-white lymphnode measuring 1.3 cm in greatest dimension. It isembedded in a small amount of fibroadipose tissue. Theentire specimen is bisected and entirely submitted incassette B1.[facility] C is additionally labeled left upper lobectomy.The specimen consists of a segment of allred-red lungtissue measuring 17.0 x 14.5 x 3.0 cm. There aremultiple roman attached to the surgical resectionmargin of the specimen. A firm 1.5-cm diameter nodulecan be palpated at the superior posterior aspect of thespecimen, about 4.5 cm away to the bronchus margin and5.0 cm away to the vascular margin. The pleuralsurface of the specimenis smooth and glisteningwithout any puckering. The surgical resection marginand the pleural surfaceof the nodule is inked blue.After removing the staple line, the specimen isserially sectioned, reveals the cut surface of the lungtissue is red with spongy consistency. There is aslightly pale solid ill- defined nodule (1.5 cmdiameter) identified, about 3.0 cm away to the bronchusresection margins. The mass is reaching the pleuralsurface but not abuts or causing the puckering. Thecut surface of the nodule is heterogeneous with focalarea of necrosis. The specimen is submitted asfollows:LEGEND:IBIS TAY [id number], Bronchus resection marginsC2-C6, Mass, serially sectioned and entirely submittedC7, Uninvolved lung parenchyma and vascular marginsC8 and C9, Hilar lymph nodes, bisectedXZhao/cabPart D is additionally labeled station 9. Thespecimen consists of a moderately firm garcia-white lymphnode measuring 0.5 cm in greatest dimension. It isembedded in a small amount of fibroadipose tissue. Onsectioning, the node presents smooth garcia-white cutsurfaces. The specimen is bisected andentirelysubmitted in cassette E1.Container E is additionally labeled station 7. Thespecimen consists of a moderately firm garcia-white lymphnode measuring 0.5 cm in greatest dimension. It isembedded in a small amount of fibroadipose tissue. Onsectioning, the node presents smooth garcia-white cutsurfaces. The entire specimen is bisected andsubmitted in cassette E1.SKwon/kmtSK /KTMicroscopicA microscopic examination was performed to arrive atthe diagnostic conclusion reported.XZhao:WWest/cabVerhoffs elastic stain is performed on block C4 withadequate control. In at least one microscopic focus,tumor penetrates the elastic tissue layer (pl1). Thecontrol reacts appropriately.Charles Crain M.D., Resident Pathologist, within theDepartment of Pathology Resident Physician TrainingProgram, assisted in the evaluation and reporting ofthese specimens under my personal supervision. Thegross examination was performed by myself, or IBIS Yepez [id number] Resident Physician/Pathologist [employer] under mysupervision. Any microscopic examination reportedincludes my personal performance of a microscopicevaluation. I have reviewed, edited as necessary, andapproved all elements of the report, in reac hingmy diagnostic conclusions reported above.XZ /CBCommentThe pathologic examination demonstrates a1.5-cmadenocarcinoma with a papillary predominant pattern.The elastic tissue stain (VVG) demonstrates very focalpenetration of the elastic layer, thus this tumor ispositive for visceral pleural invasion. The lymphnodes are negative for metastatic disease. Thesurgical margins are free of tumor.WWest/cabXR CHEST 1 [id number] 08:04:39\X0A\INDICATION: Pneumothorax.\X0A\\X0A\COMPARISON: 10/13/2017.\X0A\\X0A\TECHNIQUE: Single semiupright AP view chest x-ray.\X0A\\X0A\FINDINGS:\X0A\Patient is rotated. Left apically noted thoracostomy tube. Trace left pneumothorax, unchanged. Increased pulmonary vascular congestion. Unchanged increased density throughout the left mid and lower lung, possibly relating to technique. Decreased \X0A\subcutaneous emphysema along the left chest wall. No acute osseous abnormality.\X0A\\X0A\IMPRESSION\X0A\\X0A\1. Increased density within the left lung base may relate to patient rotation, although underlying infiltrate or atelectasis is not excluded.\X0A\2. Unchanged trace left apical pneumothorax.\X0A\3. Mild increased pulmonary congestion.\X0A\\X0A\I, Dr. Ricco Moctezuma, have personally reviewed the images and the resident's interpretation and have edited the findings.\X0A\\X0A\XR CHEST 1 [id number] 08:15:35\X0A\INDICATION: Pneumothorax.\X0A\\X0A\COMPARISON: Single upright AP view chest x-ray 10/12/2017, 10/11/2017.\X0A\\X0A\TECHNIQUE: Single semiupright AP view chest x-ray.\X0A\\X0A\FINDINGS:\X0A\Patientis markedly rotated. Unchanged position of a left thoracostomy tube. Low lung volumes. Right lung is clear. Increased density throughout the left lung. Trace left apical pneumothorax, unchanged from prior and improved from study dated 10/12/17. \X0A\Mild pulmonary vascular congestion. Stable left chest wall subcutaneous emphysema. No acute osseous abnormality.\X0A\\X0A\IMPRESSION\X0A\\X0A\1. Patient is markedly rotated. Increased density throughout the left lung may relate to technique, althoughconsolidation is not excluded.\X0A\2. Otherwise, no significant interval change from prior exam with trace left apical pneumothorax.\X0A\\X0A\I, Ricco Shi M.D., have personally reviewed theimages and the resident's report and agree with the interpretation.BMP with [id number] 06:50:00* Test Item Value Reference Range Comments Glucose (test code = GLUC) 171 mg/dl 70-100 For the purpose of classification, fasting Glucose from 100-125 mg/dl is considered impaired fasting Glucose (Pre-Diabetic) by the [place] [employer].Fasting Glucose > 125 mg/dl is indicative of Diabetes Mellitus, but must be confirmed. BUN (test code = BUN) 6 mg/dl 6-24 Creatinine (test code = CREAT) 0.74 mg/dl 0.50-1.10 The new Creatinine a ssay is IDMS-traceable. Reference ranges and GFR calculations have been updated. Sodium (test code = NA) 132 mmol/L 135-145 Potassium (test code = K) 4.2 mmol/L 3.7-5.1 Specimen is hemolyze d. Ammonia, AST, Potassium, LDH, CPK,Magnesium, Iron, and total IBC results could be increased if tested on this sample. Folate could be decreased if tested on this sample. Chloride (test code = CL) 101 mmol/L 96-110 CO2 (test code = CO2) 26.0 mmol/L 22.0-32.0 AGAP (test code = AGAP) 9 mmol/L <=20 Calcium (test code = CA) 7.6 mg/dl 8.5-10.5 GFR if -[place] (test code = GFRAA) >90 mL/min/1.73 m2 >=90 GFR if not -[place] (test code = GFRNAA) 85 mL/min/1.73 m2 >=90 *NOTE: GFR is a calc ulated estimate of the glomerular filtration rate.* XR CHEST 1 [id number] 08:32:28Post op\X0A\INDICATION: Pneumothorax, status post left upper lobectomy.\X0A\\X0A\COMPARISON: Single upright AP view chest x- ray 10/11/2017.\X0A\\X0A\TECHNIQUE: 2 upright AP view chest x-ray.\X0A\\X0A\FINDINGS:\X0A\Lungs are clear without consolidation, pneumothorax or pleural fluid. Heart size is normal. No displaced rib fractures. Left chest tube in satisfactory position. Improved chest wall emphysema. Low lung volumes. Mild pulmonary vascular congestion.\X0A\\X0A\IMPRESSION\X0A\\X0A\1. Since 10/11/2017: No significant change\X0A\\X0A\BMP with [id number] 07:28:00* Test Item Value Reference Range Comments Glucose (test code = GLUC) 141 mg/dl 70-100 For the purpose of classification, fasting Glucose from 100-125 mg/dl is considered impaired fasting Glucose (Pre-Diabetic) by the [place] [employer].Fasting Glucose > 125 mg/dl is indicative of Diabetes Mellitus, but must be confirmed. BUN (test code = BUN) 8 mg/dl 6-24 Creatinine (test code = CREAT) 0.81 mg/dl 0.50-1.10 The new Creatinine a ssay is IDMS-traceable. Reference ranges and GFR calculations have been updated. Sodium (test code = NA) 138 mmol/L 135-145 Potassium (test code = K) 3.9 mmol/L 3.7-5.1 Chloride (test code = CL) 107 mmol/L 96-110 CO2 (test code = CO2) 26.0 mmol/L 22.0-32.0 AGAP (test code = AGAP) 9 mmol/L <=20 Calcium (test code = CA) 7.5 mg/dl 8.5-10.5 GFR if -[place] (test code = GFRAA) 89 mL/min/1.73 m2 >=90 GFR if not -[place] (test code = GFRNAA) 77 mL/min/1.73 m2 >=90 *NOTE: GFR is a calc ulated estimate of the glomerular filtration rate.* [id number] 07:15:00* Test Item Value Reference Range Comments WBC (test code = WBC) 7.0 k/ul 4.0-12.0 RBC (test code = RBC) 4.39 m/ul 3.50-5.30 Hemoglobin (test code = HGB) 12.0 gm/dl 12.0-16.0 Hematocrit (test code = HCT) 39.5 % 36.0-48.0 MCV (test code = MCV) 90 fl 80-100 MCH (test code = MCH) 27.3 pg 26.0-34.0 MCHC (test code = MCHC) 30.4 gm/dl 30.0-37.0 RDW (test code = RDW) 14.6 % 11.5-15.0 Platelet (test code = PLT) 228 k/ul 140-440 MPV (test code = MPV) 9.5 fl 8.5-12.5 XR CHEST 1 [id number] 16:15:39CXR in Recovery room.\X0A\INDICATION: post- op\X0A\\X0A\COMPARISON: 08/15/2017\X0A\\X0A\TECHNIQUE: Single AP view of the est\X0A\\X0A\FINDINGS:\X0A\Patient is status post left upper lobectomy with expected postsurgical changes. There is an apically oriented chest tube with trace amount of left apical pneumothorax. There are subcutaneous emphysematous changes. Surgical clip was projecting over the \X0A\mediastinum. Stable cardiomediastinal silhouette. There is blunting of left costophrenic angle. There are bilateralmild interstitial prominence, predominantly seen in the perihilar region. Stable osseous structures.\X0A\\X0A\IMPRESSION\X0A\\X0A\1. Interval placement of left chest tube with trace amount of left pne umothorax.\X0A\2. Trace left small pleural effusion with overlying atelectasis.\X0A\3. Expected postsurgical changes of left upper lobectomy.\X0A\\X0A\\X0A\I, Dr Mancia, have personally reviewed the images and the resident's interpretation and agree with the findings above.\X0A\ABO/Rh Typing [id number] 11:43:00O POSAntibody Screen [id number] 11:43:00* Test Item Value Reference Range Comments ABSC Interp Auto (test code = ABSCTN) Neg BMP with [id number] 10:58:00* Test Item Value Reference Range Comments Glucose (test code = GLUC) 104 mg/dl 70-100 For the purpose of classification, fasting Glucose from 100-125 mg/dl is considered impaired fasting Glucose (Pre-Diabetic) by the [place] [employer].Fasting Glucose > 125 mg/dl is indicative of Diabetes Mellitus, but must be confirmed. BUN (test code = BUN) 8 mg/dl 6-24 Creatinine (test code = CREAT) 0.76 mg/dl 0.50-1.10 The new Creatinine a ssay is IDMS-traceable. Reference ranges and GFR calculations have been updated. Sodium (test code = NA) 142 mmol/L 135-145 Potassium (test code = K) 3.3 mmol/L 3.7-5.1 Chloride (test code = CL) 109 mmol/L 96-110 CO2 (test code = CO2) 25.0 mmol/L 22.0-32.0 AGAP (test code = AGAP) 11 mmol/L <=20 Calcium (test code = CA) 8.2 mg/dl 8.5-10.5 GFR if -[place] (test code = GFRAA) >90 mL/min/1.73 m2 >=90 GFR if not -[place] (test code = GFRNAA) 83 mL/min/1.73 m2 >=90 *NOTE: GFR is a calc ulated estimate of the glomerular filtration rate.* [id number] 10:46:00* Test Item Value Reference Range Comments WBC (test code = WBC) 6.0 k/ul 4.0-12.0 RBC (test code = RBC) 4.79 m/ul 3.50-5.30 Hemoglobin (test code = HGB) 13.3 gm/dl 12.0-16.0 Hematocrit (test code = HCT) 42.3 % 36.0-48.0 MCV (test code = MCV) 88 fl 80-100 MCH (test code = MCH) 27.8 pg 26.0-34.0 MCHC (test code = MCHC) 31.4 gm/dl 30.0-37.0 RDW (test code = RDW) 14.6 % 11.5-15.0 Platelet (test code = PLT) 263 k/ul 140-440 MPV (test code = MPV) 10.0 fl 8.5-12.5 .Differential, [id number] 10:46:00* Test Item Value Reference Range Comments Neutrophils (test code = ASEG) 66 % IG (test code = IG%) 0 % Lymphs (test code = PLYM) 25 % Monos (test code = PMONO) 6 % Eos (test code = PEOS) 3 % Basos (test code = PBASO) 0 % Neutro, Absolute (test code = ASE) 4.0 k/ul 1.5-8. 0 IG Abs (test code = IG) 0.0 k/ul 0.0-0.1 Lymph Absolute (test code = ALYM) 1.5 k/ul 1.0-4.5 [place]go Absolute (test code = AMONO) 0.4 k/ul 0.1-1.1 Eos Abs (test code = AEOS) 0.2 k/ul 0.0-0.4 Baso Absolute (test code = ABASO) 0.0 k/ul 0.0-0.1 Non-Electric Tool Repairer Final [id number] 14:52:00IBIS TAY [id number]. MEDIASTINAL LYMPH NODE, STATION 7, ENDOBRONCHIALULTRASOUND-GUIDED FINE NEEDLE ASPIRATION, (THINPREP,CELL BLOCK):- Negative for malignancy.- Lymph node components present.B. MEDIASTINAL LYMPH NODE, 11L, ENDOBRONCHIALULTRASOUND- GUIDED FINE NEEDLE ASPIRATION, (THINPREP,CELL BLOCK):- Negative for malignancy.- Lymph node components present.C. MEDIASTINAL LYMPH NODE, 12R, ENDOBRONCHIALULTRASOUND-GUIDED FINE NEEDLE ASPIRATION, (THINPREP,CELL BLOCK):- Negative formalignancy.- Lymph node components present.Screened by: Renae Hughes CytotechnologistCarli Clark M.D, PhD, Staff PathologistMERIT HEALTH WESLEY [id number] [place], [place] [address]Bawcdnak and ElectronicallySigned: 08/31/17 2:52The pathologist(s) listed have reviewed, edited and approved the finaldiagnosis.AdequacySatisfactory for Evaluation.Clinical InformationLUL nodule +adenocarcinomaGrossSource of specimen: A-#7 FNA, EBUSSpecimen received: In cytolyt labeled with thepatient's name, Ibis Tay and : 53.IBIS TAY D [id number] consists of 35ml of hazy, pink fluid.Cytologic preparations include:1 Cell block1 ThinPrep Pap-stainedSource of specimen: B-11L FNA, EBUSSpecimen received: In cytolyt labeled with thepatient's name, Ibis Tay and : 53.Specimenconsists of 35ml of hazy, pink fluid.Cytologic preparations include:1 Cell block1 ThinPrep Pap-stainedSource of specimen: C-12R FNA, EBUSSpecimen received: In cytolyt labeled with thepatient's name, Ibis Tay and : 53.Specimen consists of 35ml of hazy, red fluid.Cytologic preparations include:1 Cell block1 ThinPrep Pap-stainedBMP with [id number] 15:13:00* Test Item Value Reference Range Comments Glucose (test code = GLUC) 110 mg/dl 70-100 For the purpose of classification, fasting Glucose from 100-125 mg/dl is considered impaired fasting Glucose (Pre-Diabetic) by the [place] [employer].Fasting Glucose > 125 mg/dl is indicative of Diabetes Mellitus, but must be confirmed. BUN (test code = BUN) 14 mg/dl 6-24 Creatinine (test code = CREAT) 0.78 mg/dl 0.50-1.10 The new Creatinine a ssay is IDMS-traceable. Reference ranges and GFR calculations have been updated. Sodium (test code = NA) 139 mmol/L 135-145 Potassium (test code = K) 4.1 mmol/L 3.7-5.1 Specimen is hemolyze d. Potassium, AST,LDH, Magnesium and Iron results could be increased if tested on this sample. Folate could be decreased if tested on this sample. Chloride (test code = CL) 104 mmol/L 96-110 CO2 (test code = CO2) 30.0 mmol/L 22.0-32.0 AGAP (test code = AGAP) 9 mmol/L <=20 Calcium (test code = CA) 9.0 mg/dl 8.5-10.5 GFR if -[place] (test code = GFRAA) >90 mL/min/1.73 m2 >=90 GFR if not -[place] (test code = GFRNAA) 81 mL/min/1.73 m2 >=90 *NOTE: GFR is a calc ulated estimate of the glomerular filtration rate.* Surg Path Final [id number] 11:46:00IBIS TAY [id number] UPPER LUNG NODULE, NEEDLE BIOPSIES:1. PAPILLARY ADENOCARCIN ÁLVARO.2. INTRA-ALVEOLAR HISTIOCYTES.3. SEE COMMENT.Callum Joseph MD, Staff PathologistMERCY HOS[facility] [id number] [place] [address], [id number]&Electronically Signed: 08/17/2017 11:46 AMThe pathologist(s) listed have reviewed, edited and approved the finaldiagnosis.Clinical InformationReason for Procedure: Lt upper lobe lung mass.GrossThe specimen is labeled Ibis Tay and maria alejandraleft lung nodule upper on container and Lt upper lobelung cores on requisition, and is comprised oftwotan-pink transparent tissue fragments measuring from0.2 to 0.3 cm in length and up to 0.1 cm in diameter.The specimen is wrapped in lens paper and submitted asA1.JS/csfJS /CSFMicroscopicA microscopic examination was performed to arrive atthe diagnostic conclusion reported.JWR/cabJWR/CBCommentImmunostains were performed for CK7 and TTF-1 withsatisfactory control staining. The pattern ofimmunoreactivity, and the morphologic features, areconsistent with papillary adenocarcinomaIBIS TAY [id number] lung origin. Other potential sites of tumor origin,however, cannot be definitively excluded. Correlationwith clinical and imaging studies is necessary.Focally, there are aggregates of intr a-alveolarhistiocytes. AFB and Silver stains were alsoperformed, and no mycobacterial or fungal organisms areidentified. The findings do not appear to representgranulomatous inflammation. This was reviewed byanother member of the department, and heagrees with the diagnoses.(Internal Review: WP)Immun ohistochemistry is performed on formalin-fixedparaffin embedded tissue unless otherwise statedutilizing the indirect biotin-free [place] ultraViewDAB Detection Kit. This test was developed and itsperformance characteristics determined by [facility]. Some antibodies may not have been clearedor approved by the U.S. Food and Drug Administration.This test is used for clinical purposes. It should notbe regarded as investigational or for research. [facility] is certified under the Clinical LaboratoryImprovement Amendments (CLIA) as qualified to performhigh complexity clinical laboratory testing, and hasestablished and verified the test's accuracy andprecision. This assay has not been validated ondecalcified tissues. Results should be interpreted withcaution given the likelihood offalse negativity ondecalcified specimens. Positive and negative controlshave been stained appropriately. ER (SP1), CO (1E2),Ki67(30-9), HER-2/vee (4B5) methods are approved by theFDA. (ASCO/CAP 2013 Guidelines). Prelim [id number] 11:06:00IBIS TAY [id number] DiagnosisLEFT UPPER LUNG NODULE, NEEDLE BIOPSIES:1. ATYPICALPAPILLARY LESION.2. ANCILLARY STUDIES PENDING; SEE COMMENT.Comment:Ancillary stains will be performe d in an effort tobetter characterize the nature of this lesion, andthose results will beissued in afinal report.Callum Joseph MD, Staff PathologistMER[facility] HOS[facility] [id number] [place] [address]Verified&Electronically Signed: 08/16/2017 11:06 AMThe pathologist(s) listed have reviewed, edited and approved the finaldiagnosis.Preliminary DiscussionClinical Information:Reason for Procedure:Lt upper lobe lung mass.Gross Description:The specimen is labeled Ibis Tay and coresleft lung nodule upper on container and Lt upper lobelung cores on requisition, and is comprised oftwotan-pink transparent tissue fragments measuring from0.2 to 0.3 cm in length and up to 0.1 cm in d iameter.The specimen is wrapped in lens paper and submitted asA1.JS/csfMicroscopic Description:A microscopic examination was performed to arrive atthe diagnostic conclusion reported.IBIS TAY [id number]/William Joseph MD, Staff PathologistIM Frfacbeoey[address], [id number]&Electronically Signed: 08/16/2017 11:06 AMThe pathologist(s) listed have reviewed, edited and approved the finaldiagnosis.Preliminary DiagnosisLEFT UPPER LUNG NODULE, NEEDLE BIOPSIES:1. ATYPICAL PAPILLARY LESION.2. ANCILLARY STUDIES PENDING; SEE COMMENT.Comment:Ancillary stains willbe performed in an effort tobetter characterize the nature of this lesion, andthose results will beissued in a final report.Callum Joseph MD, Staff PathologistC [address]nlc[address], [address]Dwnnirww&Electronically Signed: 08/16/2017 11:06 AMThe pathologist(s) listed have reviewed, edited and approved the finaldiagnosis.CT [id number] 13:30:00\X0A\EXAM: CT-guided left upper lobe lung needle biopsy 08/15/2017.\X0A\\X0A\REASON FOR EXAM: Left upper lobe lung nodule, positive CT/PET scan in a 62-year-old female.\X0A\\X0A\DISCUSSION:\X0A\Required Verbiage: The procedure was discussed with the patient, including risks, possible complications,and alternatives. The patient was re-evaluated immediately prior to administration of sedation. Theprocedure was performed using sterile technique.\X0A\ Independent monitoring was provided by a member of the IR nursing staff. The physician supervised intra-procedural sedation time was 21 minutes.\X0A\\X0A\Using sterile technique, local anesthesia, and CT fluoroscopic guidance the tip of a 16-gauge coaxial needle was advanced to the superficial surface of a left upper lobe lung nodule via a left anterolateral intercostal approach with the patient in the \X0A\supine position. An 18-gauge Temnoneedle was inserted and a single core was obtained. The core was submitted in formalin. The coaxialneedle was removed and manual compression was held to achieve hemostasis. The post procedure CT shows no pneumothorax.\X0A\\X0A\IMPRESSION\X0A\\X0A\\X0A\1. CT-guided biopsy of a left upper lobe lung nodule.\X0A\2. See separate report for final histologic diagnosis.\X0A\\X0A\Start time-1036\X0A\End time-1115\X0A\\X0A\Versed-2mg \X0A\Fentanyl-100mcg\X0A\\X0A\fluro time-28secXR CHEST 1 [id number] 13:03:52 \X0A\EXAM: Chest AP upright portable 08/15/2017 at 12:42 PM.\X0A\\X0A\REASON FOR EXAM: Post CT-guided biopsy of a left upper lobe lung nodule in a 62-year-old female.\X0A\\X0A\DISCUSSION:\X0A\\X0A\\X0A\IMPRESSION\X0A\\X0A\\X0A\1. No delayed pneumothorax following CT-guided biopsy of a small left upper lobe lung nodule.\X0A\2. The lungs are under aerated and there is minimal linear atelectasis at both lung bases.\X0A\3. Minimal amount of pulmonary hemorrhage adjacent to the left upper lobe lung nodule.\X0A\\X0A\Post CT biopsyBMP with GFR 2017-08-13 04:33:00* Test Item Value Reference Range Comments Glucose (test code = GLUC) 108 mg/dl 70-100 For the purpose of classification, fasting Glucose from 100-125 mg/dl is considered impaired fasting Glucose (Pre-Diabetic) by the [place] [employer].Fasting Glucose > 125 mg/dl is indicative of Diabetes Mellitus, but must be confirmed. BUN (test code = BUN) 10 mg/dl 6-24 Creatinine (test code = CREAT) 0.66 mg/dl 0.50-1.10 The new Creatinine a ssay is IDMS-traceable. Reference ranges and GFR calculations have been updated. Sodium (test code = NA) 143 mmol/L 135-145 Potassium (test code = K) 3.4 mmol/L 3.7-5.1 Chloride (test code = CL) 108 mmol/L 96-110 CO2 (test code = CO2) 27.0 mmol/L 22.0-32.0 AGAP (test code = AGAP) 11 mmol/L <=20 Calcium (test code = CA) 9.2 mg/dl 8.5-10.5 GFR if -[place] (test code = GFRAA) >90 mL/min/1.73 m2 >=90 GFR if not -[place] (test code = GFRNAA) >90 mL/min/1.73 m2 >=90 *NOTE: GFR is a calc ulated estimate of the glomerular filtration rate.* [id number] 04:24:00* Test Item Value Reference Range Comments WBC (test code = WBC) 3.3 k/ul 4.0-12.0 RBC (test code = RBC) 4.14 m/ul 3.50-5.30 Hemoglobin (test code = HGB) 11.6 gm/dl 12.0-16.0 Hematocrit (test code = HCT) 35.6 % 36.0-48.0 MCV (test code = MCV) 86 fl 80-100 MCH (test code = MCH) 28.0 pg 26.0-34.0 MCHC (test code = MCHC) 32.6 gm/dl 30.0-37.0 RDW (test code = RDW) 15.7 % 11.5-15.0 Platelet (test code = PLT) 236 k/ul 140-440 MPV (test code = MPV) 9.8 fl 8.5-12.5 .Differential, [id number] 04:24:00* Test Item Value Reference Range Comments Neutrophils (test code = ASEG) 60 % IG (test code = IG%) 0 % Lymphs (test code = PLYM) 29 % Monos (test code = PMONO) 8 % Eos (test code = PEOS) 2 % Basos (test code = PBASO) 0 % Neutro, Absolute (test code = ASE) 2.0 k/ul 1.5-8. 0 IG Abs (test code = IG) 0.0 k/ul 0.0-0.1 Lymph Absolute (test code = ALYM) 1.0 k/ul 1.0-4.5 Hidalgo Absolute (test code = AMONO) 0.3 k/ul 0.1-1.1 Eos Abs (test code = AEOS) 0.1 k/ul 0.0-0.4 Baso Absolute (test code = ABASO) 0.0 k/ul 0.0-0.1 [id number] 03:34:00* Test Item Value Reference Range Comments PTT (test code = PTTAVE) 28.4 sec 22.8-33.9 [id number] 03:34:00* Test Item Value Reference Range Comments PT (test code = PTAVE) 10.9 sec 9.6-11.9 INR (test code = PTINR) 1.0 0.9-1.1 Warf jesus alberto THERAPEUTIC INR RANGE = 2.0 - 3.0 CT ANGIOGRAM CHEST WITH AND OR WITHOUT IV [id number] 19:12:53\X0A\REASON FOR EXAM: Cough, congestion, back pain\X0A\\X0A\DISCUSSION:\X0A\CT of the chest with pulmonary angiography was done according to our standard protocol for suspected pulmonary embolism. A noncontrast intravenous bolus tracking scan was done during injection to trigger initiation of the scan with optimal enhancement \X0A\of the pulmonary arteries.\X0A\\X0A\100 cc of Isovue 370 contrast material was administered IV with a power injector at a flow rate of 4cc per second. Maximum intensity projection (MIP) angiographic images were reconstructed and archived at 3mm intervals in the coronal plane. Axial \X0A\images were reconstructed and archived at 3 mm intervals.\X0A\\X0A\Study was compared to prior exam from July 03, 2017 Evaluation of the pulmonary arteries demonstrates good opacification with contrast. There is no filling defect to indicate underlying pulmonary embolism. There is calcification of the aorta. No \X0A\dissection or aneurysmal dilatation. Heart size is enlarged and stable. No pericardial effusion. The area of previous mass seen within the left upper lobe is reidentified measuring 1.5 cm in size. This is along the pleura. Consideration of biopsy. The \X0A\lungs demonstrate areas of bilateral areas of interstitial infiltrates within the upper and lower lung butterfield. Findings can be seen with elements of interstitial pneumonitis. No significant pleural ef fusion. There is degenerative spondylosis of the \X0A\spine.\X0A\\X0A\IMPRESSION\X0A\\X0A\\X0A\1. No evidence for pulmonary embolism.\X0A\2. Changes of bilateral areas of interstitial infiltrates. Fin dings may represent some component of interstitial pneumonitis.\X0A\3. Enlarging pleural-based nodule within the left upper lobe now measuring 1.5 cm. Findings are suspicious for malignancy.\X0A\congestion, cough, sore throat, body aches\X0A\Chest and back pain\X0A\100cc [id number] 17:45:00* Test Item Value Reference Range Comments Troponin-I (test code = TROP) <0.04 ng/mL <=0.04 CMP with [id number] 17:45:00* Test Item Value Reference Range Comments Glucose (test code = GLUC) 99 mg/dl 70-100 For the purpose of classification, fasting Glucose from 100-125 mg/dl is considered impaired fasting Glucose (Pre-Diabetic) by the [place] [employer].Fasting Glucose > 125 mg/dl is indicative of Diabetes Mellitus, but must be confirmed. BUN (test code = BUN) 11 mg/dl 6-24 Creatinine (test code = CREAT) 0.84 mg/dl 0.50-1.10 The new Creatinine a ssay is IDMS-traceable. Reference ranges and GFR calculations have been updated. Sodium (test code = NA) 141 mmol/L 135-145 Potassium (test code = K) 3.4 mmol/L 3.7-5.1 Chloride (test code = CL) 105 mmol/L 96-110 CO2 (test code = CO2) 32.0 mmol/L 22.0-32.0 AGAP (test code = AGAP) 7 mmol/L <=20 Calcium (test code = CA) 8.5 mg/dl 8.5-10.5 Total Protein (test code = TP) 6.7 gm/dl 6.0-8.4 Albumin (test code = ALB) 3.3 gm/dl 3.5-5.0 Globulin (test code = GLOB) 3.4 gm/dl 2.0-4.4 AST (test code = AST) 14 u/l 10-40 Alkaline Phosphatase (test code = ALKP) 85 u/l 33-138 Bilirubin Total (test code = TBIL) 0.3 mg/dl 0.0-1.5 ALT (test code = ALT) 26 u/l 12-78 GFR if -[place] (test code = GFRAA) 85 mL/min/1.73 m2 >=90 GFR if not -[place] (test code = GFRNAA) 73 mL/min/1.73 m2 >=90 *NOTE: GFR is a calc ulated estimate of the glomerular filtration rate.* D-Dimer, [id number] 17:39:00* Test Item Value Reference Range Comments D-Dimer (test code = DIMER) 0.97 mg/L FEU Interpretive Data fo r Quantitative D-Dimer Test:D-Dimers are known to be elevated in a variety of disorders including: advanced age,, coronary disease, cancer, liver disease, infection, inflammation, hematoma,DIC, trauma, post surgery, diabetes, thrombolytic therapy, and stress. D-Dimers may bedecreased in patients receiving anticoagulant therapy.1) Reference Range:Clinically asymptomatic patients may have D-Dimer values of up to 0.52 mg/L FEU (referencerange), but the DVT/PE cannot be ruled out unless the D-Dimer value is less than or equal to0.50 mg/L FEU (the negative cutoff).2) Evaluation of Deep Venous Thrombosis/Pulmonary Embolus (DVT/PE):< or =0.50: D-Dimer values of equal to or less than 0.50 mg/L FEU can be used to help rule outthe presence of DVT/PE, especially in conjunction with a low score on apreassessment risk screen (e.g. Wells Score). Clinical diagnosis should not bebased only on D-Dimer test results.0.51 - 0.52: D-Dimer values of 0.51 and 0.52 mg/L FEU are within reference range, but cannotrule out the presence of DVT/PE. Additional testing may be indicated, especiallywhen a preassessment risk screen (e.g. Wells Score) is moderate to high.>0.52: Suggests that DVT/PE or other fibrinolytic process is present.3) Evaluation of Coagulopathy0 - 0.52: Not indicative of Disseminated Intravascular Coagulopathy or other fibrinolyticprocess.>0.52: Indicative of Disseminated Intravascular Coagulopathy or other fibrinolyticprocess. [id number] 17:26:00* Test Item Value Reference Range Comments WBC (test code = WBC) 4.8 k/ul 4.0-12.0 RBC (test code = RBC) 4.17 m/ul 3.50-5.30 Hemoglobin (test code = HGB) 11.8 gm/dl 12.0-16.0 Hematocrit (test code = HCT) 36.2 % 36.0-48.0 MCV (test code = MCV) 87 fl 80-100 MCH (test code = MCH) 28.3 pg 26.0-34.0 MCHC (test code = MCHC) 32.6 gm/dl 30.0-37.0 RDW (test code = RDW) 14.8 % 11.5-15.0 Platelet (test code = PLT) 213 k/ul 140-440 MPV (test code = MPV) 10.4 fl 8.5-12.5 .Differential, [id number] 17:26:00* Test Item Value Reference Range Comments Neutrophils (test code = ASEG) 62 % IG (test code = IG%) 0 % Lymphs (test code = PLYM) 28 % Monos (test code = PMONO) 8 % Eos (test code = PEOS) 2 % Basos (test code = PBASO) 0 % Neutro, Absolute (test code = ASE) 3.0 k/ul 1.5-8. 0 IG Abs (test code = IG) 0.0 k/ul 0.0-0.1 Lymph Absolute (test code = ALYM) 1.3 k/ul 1.0-4.5 [place] Absolute (test code = AMONO) 0.4 k/ul 0.1-1.1 Eos Abs (test code = AEOS) 0.1 k/ul 0.0-0.4 Baso Absolute (test code = ABASO) 0.0 k/ul 0.0-0.[address] SKULL BASE TO MID THIGH [id number] 15:29:28\X0A\Indication/Clinical History: 62-year-old female with history of left pulmonary nodule..\X0A\\X0 A\Comparison: PET/CT 10/27/2016, CT of the chest 07/03/2017.\X0A\\X0A\Technique: Patient's blood glucose was confirmed at 125, 112 mg/dL at the time of FDG injection and was stable. After a delay of 2hours post-IV administration of 13.7 mCi of FDG, high-resolution metabolic PET images were acquiredfrom skullbase to \X0A\mid-thigh level along with non-contrast CT images for attenuation correctionand morphologic correlation.\X0A\\X0A\40 mg of intravenous Lasix and normal saline were administered to facilitate rapid radiotracer clearance and to ensure adequate hydration during glucose-equilibrium phase.\X0A\\X0A\Discussion:\X0A\Skull base: There are no areas of abnormally increased FDG uptake.\X0A\\X0A\Neck: There is normal uptake within the soft tissues and glandular structures of the neck including the oropharynx and nasopharynx without focal areas of abnormal FDG uptake.\X0A\\X0A\Chest: There has been interval increase in size of previously identified soft tissue density pulmonary nodule at the peripheral aspect of the left upper lobe (series 3 image 121), currently measuring 1.2 x 1.1 cm. This is increased compared to prior \X0A\PET/CT dated 10/27/2016, but is unchanged to most recent noncontrast CT of the chest. There is small areas of peripheral groundglass density surrounding this more central soft tissue nodule. This area demonstrates mildly increased metabolic activity,with\X0A\ an average SUV now measuring approximately 2.1 (previously 1.4). Additionally, there are scattered areas of nonfocal hypermetabolism within the bilateral dara, with a maximum SUV of 2.4 on the right and 2.5 on the right. There is physiologic activity \X0A\noted within the heart. There is emphysematous change of the bilateral lungs, which appear similar prior. There is scattered areas ofatelectasis at the bilateral lung bases. Cardiac chambers are within normal limits. There is scattered atherosclerosis \X0A\of the coronary vessels. The aorta and branch vessels are nonaneurysmal, but demonstrates scattered calcific atherosclerosis.\X0A\\X0A\Abdomen/pelvis: There are no areas of abnormally increased FDG uptake. Normal physiologic uptake of FDG is seen within the spleen, pancreas,stomach, adrenals, bowels, kidneys and urinary collecting systems. The noncontrast appearance of the spleen, \X0A\bilateral adrenal glands, bilateral kidneys, pancreas and liver are within normal limits. Question of high density material within the lumen of the gallbladder. The nonopacified large and small bowel are within normal limits. No free abdominal fluid or \X0A\free air\X0A\\X0A\Skeletal system: There are no areas of abnormally increased FDG uptake.\X0A\\X0A\\X0A\IMPRESSION\X0A\Impression:\X0A\1. Interval increase in size and metabolic activity of left upper lobe pulmonary nodule. While findings are not typical of malignancy, the continued increase in size and metabolism are worrisome. Further evaluation with biopsy is recommended.\X0A\2. Nonfocal, nonspecific hypermetabolism within the bilateral dara. Recommend further evaluation with contrast-enhanced CT to evaluate for potential lymphadenopathy in these regions.\X0A\\X0A\Bay Givens M.D. have personally reviewed theimages and the residents report and agree with the interpretation.\X0A\\X0A\\X0A\\X0A\\X0A\BS: 125,112\X0A\Assay Dose: 14.5mCi (537MBq) @1142\X0A\Residual Dose: 0.8mCi @1142\X0A\Net Dose: 13.7mCi (507MBq) @507\X0A\\X0A\Lasix/ Saline protocol followed pako thomas\X0A\\X0A\Previous Comparision Study : PET/CT 10/27/16\X0A\\X0A\REASON FOR EXAM: Pulmonary nodule, initial metabolic staging\X0A\?\X0A\DISCUSSION:\X0A\Blood glucose at the time of administration of the radiopharmaceutical was 91 mg/dL and decreasing.\X0A\?\X0A\40 mg of furosemide together with normal were administered intravenously during the glucose equilibrium phase of the examination to facilitate physiologic clearance of the radiopharmaceutical and to establish a steady state of hydration.\X0A\?\X0A\2 hours following the intravenous administration of 618 MBq of fluorine 18 deoxyglucose high resolution metabolic images with corresponding CT attenuation images were obtained from the skull base to the mid thigh.\X0A\?\X0A\Cervical, axillary, subpectoral, and supraclavicular lymph nodes are metabolically normal.\X0A\?\X0A\There are no metabolic abnormalities of hilar or mediastinal lymph nodes.\X0A\?\X0A\There is a poorlydefined 14 mm nodule localized to the upper lobe of the left lung with a maximum metabolic rate of SUV equals 1.2\X0A\?\X0A\There is bilateral isometabolic parenchymal alveolar opacifications.\X0A\?\X0A\There are no hypermetabolic pulmonary parenchymal abnormalities.\X0A\?\X0A\Liver and spleen are normal with equivalent metabolic rates.\X0A\?\X0A\Adrenals, pancreas, and stomach are metabolically normal.\X0A\?\X0A\There are no metabolic abnormalities of crural, mesenteric retroperitoneal or pelvic lymph nodes.\X0A\?\X0A\There is hypermetabolic healing and a fracture of the left ninth rib.\X0A\? \X0A\IMPRESSION:\X0A\?\X0A\Bilateral pulmonary parenchymal abnormalities with metabolic rates lowerthan commonly associated with malignancy.\X0A\?\X0A\Continued follow-up with CT is [id number] 11:13:00* Test Item Value Reference Range Comments Glucose Strip (test code = CSGLUC) 112 mg/dl 70-110 [id number] 11:13:00* Test Item Value Reference Range Comments Glucose Strip (test code = CSGLUC) 125 mg/dl 70-110 .Influ A [id number] 20:38:00* Test Item Value Reference Range Comments Influenza A Antigen (test code = INFAG) NEGATIVE N egative .Influ B [id number] 20:38:00* Test Item Value Reference Range Comments Influenza B Antigen (test code = INFBAG) neg Negative POC Blood Gas [id number] 20:12:00* Test Item Value Reference Range Comments Draw Time (test code = DRTM) 2007 pH Arterial (test code = PH) 7.41 7.35-7.45 pCO2 Arterial (test code = PCO2) 44 mmHg 35-45 pO2 Arterial (test code = PO2) 66 mmHg 80-100 HCO3 Arterial (test code = HCO3) 27.9 mmol/L 20.0-30. 0 Base Excess (test code = BE) 2.7 mmol/L -4.0-4.0 O2 Saturation Arterial (test code = O2S) 93 % 95-98 Ventilation (test code = VENT) 21.0 Allens (test code = ALLENS) POS CMP with [id number] 19:36:00* Test Item Value Reference Range Comments Glucose (test code = GLUC) 97 mg/dl 70-100 For the purpose of classification, fasting Glucose from 100-125 mg/dl is considered impaired fasting Glucose (Pre-Diabetic) by the [place] [employer].Fasting Glucose > 125 mg/dl is indicative of Diabetes Mellitus, but must be confirmed. BUN (test code = BUN) 12 mg/dl 6-24 Creatinine (test code = CREAT) 0.75 mg/dl 0.50-1.10 The new Creatinine a ssay is IDMS-traceable. Reference ranges and GFR calculations have been updated. Sodium (test code = NA) 144 mmol/L 135-145 Potassium (test code = K) 3.4 mmol/L 3.7-5.1 Chloride (test code = CL) 111 mmol/L 96-110 CO2 (test code = CO2) 27.0 mmol/L 22.0-32.0 AGAP (test code = AGAP) 9 mmol/L <=20 Calcium (test code = CA) 8.3 mg/dl 8.5-10.5 Total Protein (test code = TP) 6.3 gm/dl 6.0-8.4 Albumin (test code = ALB) 3.2 gm/dl 3.5-5.0 Globulin (test code = GLOB) 3.1 gm/dl 2.0-4.4 AST (test code = AST) 11 u/l 10-40 Alkaline Phosphatase (test code = ALKP) 97 u/l 33-138 ALT (test code = ALT) 19 u/l 12-78 GFR if -[place] (test code = GFRAA) >90 mL/min/1.73 m2 >=90 GFR if not -[place] (test code = GFRNAA) 84 mL/min/1.73 m2 >=90 *NOTE: GFR is a calculated estimate of the glomerular filtration rate.* Bilirubin Total (test code = TBIL) 0.2 mg/dl 0.0-1.5 HF Peptide (proBNP)2017-07-23 19:36:00* Test Item Value Reference Range Comments HF Peptide (proBNP) (test code = HFPEP) 64 pg/ml < =124 XR CHEST 1 [id number] 19:32:47\X0A\REASON FOR EXAM: Shortness of breath\X0A\\X0A\DISCUSSION:\X0A\Portable AP view the chest and demonstrates cardiomegaly. There is no pneumonia or edema. A calcified tortuous aorta is seen.\X0A\\X0A\IMPRESSION\X0A\\X0A\\X0A\1. Cardiomegaly.\X0A\2. No pneumonia or edema.\X0A\3. Blunting left costophrenic angle.\X0A\.Differential, Auto 2017-07-23 19:20:00* Test Item Value Reference Range Comments Neutrophils (test code = ASEG) 65 % IG (test code = IG%) 0 % Lymphs (test code = PLYM) 27 % Monos (test code = PMONO) 5 % Eos (test code = PEOS) 2 % Basos (test code = PBASO) 0 % Neutro, Absolute (test code = ASE) 4.2 k/ul 1.5-8. 0 IG Abs (test code = IG) 0.0 k/ul 0.0-0.1 Lymph Absolute (test code = ALYM) 1.7 k/ul 1.0-4.5 [place]go Absolute (test code = AMONO) 0.3 k/ul 0.1-1.1 Eos Abs (test code = AEOS) 0.1 k/ul 0.0-0.4 Baso Absolute (test code = ABASO) 0.0 k/ul 0.0-0.1 [id number] 19:20:00* Test Item Value Reference Range Comments WBC (test code = WBC) 6.4 k/ul 4.0-12.0 RBC (test code = RBC) 4.38 m/ul 3.50-5.30 Hemoglobin (test code = HGB) 12.3 gm/dl 12.0-16.0 Hematocrit (test code = HCT) 39.1 % 36.0-48.0 MCV (test code = MCV) 89 fl 80-100 MCH (test code = MCH) 28.1 pg 26.0-34.0 MCHC (test code = MCHC) 31.5 gm/dl 30.0-37.0 RDW (test code = RDW) 14.9 % 11.5-15.0 Platelet (test code = PLT) 201 k/ul 140-440 MPV (test code = MPV) 9.5 fl 8.5-12.5 Assessments Condition Name Status Diagnosis Date Treating Cl inician Weakness Active Acute pain, not elsewhere classified Active Notes Date/Time Note Provider Source 2024-01-06 15:42:00 [facility] Care Coordinatio n Note: Type of Encounter: Successful Phone Call with Patient on 01/06/2024. Reason for Encounter: Payor Plan Required Outreach: Colorectal Cancer Screening. Order was placed for a cologuard in May 2023. Pt states she did not complete up because some things came up. States she is currently packing and moving to [place] tomorrow and will be having her records transferred and will discuss this with her new provider to will establish with in [place]. She declined to do the cologurad at this time due to moving. All Future [facility] Appointments: (Scheduled as of the time this note was created) No future appointments. JADON QIU [facility] 2023-12-13 15:50:00 [facility] CHIEF COMPLAINT Back Pain SUBJECTIVE Ibis Zavaletaolson is a 68 y.o. female who presents for follow-up of Back Pain with diagnosis of: 1. Problem List Items Addressed This Visit Failed back syndrome - Primary Lumbar spondylosis Patient underwent LESI on 12-19-20She notes 50% improvement but continues with low back and joint pain. She notes that she has prior cervical WAQAR with >50% relief lasting 8-10mos. She feels the pain has recurred and would like to proceed with repeat cervical WAQAR She has tried OTC NSAIDs, daily home exercises/stretching she learned through PT without improvement Since patient's last encounter patient reports persistent chronic pain requiring ongoing treatment. Describes the pain as Sharp and Stabbing Patient rates their pain score 7/10 on average and is tolerable. Patient feels that the medication regimen does help maintain the function, mobility, activity tolerance and pain levels at a tolerable level. Patient states that medications changes or injections are not necessary today Patient states that the pain symptoms are stable. Patient denies new or changing pain complaints. Patient notes that the pain is worse with general activity and improved with rest. Patient 's current pain medication regimen has been reviewed with the patient and they note that the medication regimen is effective and reports that they are taking the medication regimen as prescribed. Patient denies running out of medication early or having an excess supply of medications. Other concerns: no new concerns at this time Patient's current pain medications has been reviewed and includes: DRUG FREQ Percocet qid qid Patient's most recent interventional procedures: PROCEDURE DATE % Relief & Duration Interlaminar Lumbar Epidural Steroid Injection L3 - L4 12/19/20 ROS Constitutional: denies dizziness, sedation, or somnolence Psychological: denies altered mentation or euphoria GI: denies significant constipation or diarrhea Musc: denies acute change in numbness, weakness, or tingling of extemities MEDICATIONS Current Outpatient Medications Medication Sig Dispense Refill - albuterol sulfate hfa 90 mcg/actuation aerosol inhaler INHALE TWO PUFFS BY MOUTH FOUR TIMES A DAY 8.5 g 11 - ALPRAZolam (XANAX) 0.5 MG tablet TAKE 1 TABLET BY MOUTH UP TO TWO TIMES A DAY NEEDED FOR ANXIETY AND/RO SLEEP 60 tablet 0 - budesonide-formoteroL (SYMBICORT) 160-4.5 mcg/actuation inhaler Inhale 2 puffs into the lungs 2 (two) times a day. 1 each 11 - calcium-vitamin D 500 mg(1,250mg) -200 unit per tablet Take 1 tablet by mouth 2 (two) times a day with meals. (Patient not taking: Reported on 12/13/2023) 180 tablet 2 - cetirizine (ZyrTEC) 10 MG tablet TAKE ONE TABLET BY MOUTH DAILY 30 tablet 11 - cholecalciferol (VITAMIN D3) 125 mcg (5,000 unit) capsule Take 1 capsule (5,000 Units total) by mouth once daily. 100 capsule 3 - cyclobenzaprine (FLEXERIL) 10 MG tablet Take 1 tablet (10 mg total) by mouth once nightly as needed for muscle spasms for up to 30 doses. 30 tablet 3 - fluticasone propionate (FLONASE) 50 mcg/actuation nasal spray 2 sprays by Each Nostril route once daily. 16 g 11 - food supplemt, lactose-reduced (Ensure) Liquid Drink 2 bottles per day. Patient requests strawberry. 35600 mL 3 - hydroCHLOROthiazide (HYDRODIURIL) 25 MG tablet TAKE 1/2 TABLET BY MOUTH DAILY 45 tablet 1 - ibandronate (Boniva) 150 mg tablet Take 1 tablet (150 mg total) by mouth every 30 (thirty) days. Take sitting upright once mobnthly on empty stomach with glass of water , dont lay down or eat for full hour (Patient not taking: Reported on 09/22/2023) 3 tablet 4 - ipratropium-albuteroL (DUO-NEB) 0.5-2.5 mg/3 mL nebulizer INHALE 1 VIAL VIA NEBULIZATION BY MOUTH FOUR TIMES A DAY 360 mL 1 - lisinopriL (PRINIVIL,ZESTRIL) 5 MG tablet TAKE 1 TABLET BY MOUTH DAILY 90 tablet 1 - [place] [facility] [place]ence pads, 2 per day 100 each 6 - [place] medical [place] [facility] [place]bul[place] machine for use for breathing problems for duo-nebs treatments 1 each 0 - miscellaneous medical [place] [facility] [place] mask, tubing and filter for nebulizer machine to be changed every 3 months. 1 each 3 - naloxone 2 mg/actuation [place], Non-Aerosol 2 mg by Nasal route as needed. 1-2 daily PRN. Proceed to ER for evaluation immediately following use. (Patient not taking: Reported on 06/02/2023) 4 each 1 - omeprazole (PriLOSEC) 40 MG capsule TAKE 1 CAPSULE BY MOUTH DAILY 90 capsule 1 - ondansetron (ZOFRAN-ODT) 4 MG disintegrating tablet Take 1 tablet (4 mg total) by mouth every 8 (eight) hours as needed. 20 tablet 0 - oxyCODONE-acetaminophen (Percocet) 10-325 mg tablet Take 1 tablet by mouth every 6 (six) hours as needed for pain. To Last 30days. No early refills Max Daily Amount: 4 tablets 120 tablet 0 - oxyCODONE-acetaminophen (Percocet) 10-325 mg tablet Take 1 tablet by mouth every 6 (six) hours as needed for pain. To Last 30days. No early refills Max Daily Amount: 4 tablets 120 tablet 0 - potassium chloride (KLOR-CON) 10 MEQ CR tablet Take 1 tablet (10 mEq total) by mouth 2 (two) times a day. 60 tablet 6 - prazosin (MINIPRESS) 2 MG capsule TAKE 3 CAPSULES BY MOUTH EVERY EVENING 270 capsule 1 - tiZANidine (ZANAFLEX) 4 MG tablet Take 1 tablet (4 mg total) by mouth 2 (two) times a day. 60 tablet 3 - topiramate (TOPAMAX) 25 MG tablet TAKE TWO TABLETS BY MOUTH EVERY MORNING AND TAKE ONE TABLET BY MOUTH EVERY EVENING 90 tablet 5 Current Facility-Administered Medications Medication Dose Route Frequency Provider Last Rate Last Admin - pneumococcal 20-valent vaccine (PREVNAR 20) syringe 0.5 mL IntraMuscular Once Mike Ann MD ALLERGIES Allergies Allergen Reactions - Penicillins Anaphylaxis - Gabapentin Other (See Comments) severe fatigue - Sulfa (Sulfonamide Antibiotics) Other (See Comments) Blisters inside and outside of mouth. - Wellbutrin [Bupropion Hcl] Other (See Comments) Body numbness and tingling - Bee Pollens Yellow jackets, Wasps - Diazepam Nausea And Vomiting - Varenicline Other reaction(s): Not available PHYSICAL EXAM Vital Signs: BP 125/75 (BP Location: Right arm) Pulse 94 Constitutional: Well nourished, well groomed, NAD. CARDIAC: Regular Rate LUNGS: Breathing nonlabored, no wheezing Neurologic: Alert & oriented x 3, normal gait, no focal deficits noted. Psychiatric: Affect normal, judgment normal, mood normal. Other Affected BA/OS: Chronic Opiate Therapy Risk Mitigation: Risk Assessment Evaluation Assessment Morphine Equivalents 60 Date of Last UDS SOAPP-R Score Behavior Risks none Physical Risks none H/o Illegal Substance Abuse denies H/o Alcohol abuse denies OPIATE RISK ASSESSMENT: LOW (Routine medication monitoring, Annual UDS) Assessment is based treating physicians overall evaluation of multiple factors including MME load, age, comorbidity, medication profile, and social risk factors. The risks/benefits of chronic opiate therapy was discussed with patient including failure of therapy, psychological addiction, physiological dependence, and risk withdrawal syndrome. Warning symptoms of potential opiate overuse/overdose were discussed including sedation, somnolence, and altered mentation were reviewed and I counseled patient these symptoms can occur even when patient have been on a stable dose and also can happen despite following physicians instructions. Alternative therapies were discussed including: non-opiate medications, interventional pain procedures, and Cognitive Behavioral Therapy. After discussing these alternatives with the patient, the patient has opted to decline these alternatives at this time. Patient has tried and failed more conservative measures and were either ineffective or intolerant. In my medical opinion non-opiate therapy is not appropriate to address the patient's medical condition at this time and will continue chronic opiate therapy after having addressed efficacy, adverse side effects, and safety of therapy with the patient. The patient indicates understanding of these issues and agrees with the plan. LIFESTYLE COUNSELING: Time was spent discussing the importance of a home exercise program to promote strength, activity endurance and pain tolerance. Patient was also counseled on avoidance of tobacco products for general health as well as improved chronic pain control. ASSESSMENT AND PLAN Problem List Items Addressed This Visit Failed back syndrome - Primary Lumbar spondylosis PLAN: 1. Patient is stable functional and meeting the goals of chronic opiate therapy without adverse side effects, misuse, or safety concerns. PDMP was reviewed without redflags or other concerns. 2. I will continue her percocet to 10/325 qid and f/u in 4weeks 3. May call for repeat cervical WAQAR when ready The patient indicates understanding of these issues and agrees with the plan. I reviewed the patient's medical information and medical history. I have reviewed the past medical, family, and social history sections including the medications and allergies listed in the above medical record. Patient was counseled that in my practice I do not prescribe chronic opiate therapy in the presence of ongoing illegal substance use. Patient was also counseled that drug screen testing is medically necessary from time to time to help stratify risks associated with chronic opiate therapy by assessing compliance with prescribed medications as well as to identify the presence of illegal substances. Consent for drug screen testing is required for continuation of chronic opiate therapy. ISAÍAS CARDENAS [facility] 2023-11-07 12:20:00 [facility] CHIEF COMPLAINT No chief complaint on file. SUBJECTIVE Ibis Tay is a 68 y.o. female who presents for follow-up of No chief complaint on file. with diagnosis of: 1. Problem List Items Addressed This Visit Cervical radiculopathy Relevant Medications oxyCODONE-acetaminophen (Percocet) 10-325 mg tablet (Start on 12/07/2023) oxyCODONE-acetaminophen (Percocet) 10-325 mg tablet Failed back syndrome - Primary Relevant Medications oxyCODONE-acetaminophen (Percocet) 10-325 mg tablet Lumbar spondylosis Relevant Medications oxyCODONE-acetaminophen (Percocet) 10-325 mg tablet (Start on 12/07/2023) oxyCODONE-acetaminophen (Percocet) 10-325 mg tablet Osteoarthritis of knee Relevant Medications oxyCODONE-acetaminophen (Percocet) 10-325 mg tablet (Start on 12/07/2023) Patient underwent LESI on 12-19-20She notes 50% improvement but continues with low back and joint pain. She notes that she has prior cervical WAQAR with >50% relief lasting 8-10mos. She feels the pain has recurred and would like to proceed with repeat cervical WAQAR She has tried OTC NSAIDs, daily home exercises/stretching she learned through PT without improvement Since patient's last encounter patient reports persistent chronic pain requiring ongoing treatment. Describes the pain as Sharp and Stabbing Patient rates their pain score 7/10 on average and is tolerable. Patient feels that the medication regimen does help maintain the function, mobility, activity tolerance and pain levels at a tolerable level. Patient states that medications changes or injections are not necessary today Patient states that the pain symptoms are stable. Patient denies new or changing pain complaints. Patient notes that the pain is worse with general activity and improved with rest. Patient 's current pain medication regimen has been reviewed with the patient and they note that the medication regimen is effective and reports that they are taking the medication regimen as prescribed. Patient denies running out of medication early or having an excess supply of medications. Other concerns: no new concerns at this time Patient's current pain medications has been reviewed and includes: DRUG FREQ Percocet qid qid Patient's most recent interventional procedures: PROCEDURE DATE % Relief & Duration Interlaminar Lumbar Epidural Steroid Injection L3 - L4 12/19/20 ROS Constitutional: denies dizziness, sedation, or somnolence Psychological: denies altered mentation or euphoria GI: denies significant constipation or diarrhea Musc: denies acute change in numbness, weakness, or tingling of extemities MEDICATIONS Current Outpatient Medications Medication Sig Dispense Refill - albuterol sulfate hfa 90 mcg/actuation aerosol inhaler INHALE TWO PUFFS BY MOUTH FOUR TIMES A DAY 8.5 g 11 - ALPRAZolam (XANAX) 0.5 MG tablet TAKE 1 TABLET BY MOUTH UP TO TWO TIMES A DAY NEEDED FOR ANXIETY AND/OR SLEEP 60 tablet 0 - budesonide-formoteroL (SYMBICORT) 160-4.5 mcg/actuation inhaler Inhale 2 puffs into the lungs 2 (two) times a day. 1 each 11 - calcium-vitamin D 500 mg(1,250mg) -200 unit per tablet Take 1 tablet by mouth 2 (two) times a day with meals. (Patient not taking: Reported on 09/22/2023) 180 tablet 2 - cetirizine (ZyrTEC) 10 MG tablet TAKE ONE TABLET BY MOUTH DAILY 30 tablet 11 - cholecalciferol (VITAMIN D3) 125 mcg (5,000 unit) capsule Take 1 capsule (5,000 Units total) by mouth once daily. 100 capsule 3 - fluticasone propionate (FLONASE) 50 mcg/actuation nasal spray 2 sprays by Each Nostril route once daily. 16 g 11 - food supplemt, lactose-reduced (Ensure) Liquid Drink 2 bottles per day. Patient requests strawberry. 25651 mL 3 - hydroCHLOROthiazide (HYDRODIURIL) 25 MG tablet TAKE 1/2 TABLET BY MOUTH DAILY 45 tablet 1 - ibandronate (Boniva) 150 mg tablet Take 1 tablet (150 mg total) by mouth every 30 (thirty) days. Take sitting upright once mobnthly on empty stomach with glass of water , dont lay down or eat for full hour (Patient not taking: Reported on 09/22/2023) 3 tablet 4 - ipratropium-albuteroL (DUO-NEB) 0.5-2.5 mg/3 mL nebulizer INHALE 1 VIAL VIA NEBULIZATION BY MOUTH FOUR TIMES A DAY 360 mL 1 - lisinopriL (PRINIVIL,ZESTRIL) 5 MG tablet TAKE ONE TABLET BY MOUTH DAILY 90 tablet 1 - [place] [facility] [place] pads, 2 per day 100 each 6 - misc[place] medical [place] [facility] [place]bul[place] machine for use for breathing problems for duo-nebs treatments 1 each 0 - miscellaneous medical [place] [facility] [place] mask, tubing and filter for nebulizer machine to be changed every 3 months. 1 each 3 - naloxone 2 mg/actuation [place], Non-Aerosol 2 mg by Nasal route as needed. 1-2 daily PRN. Proceed to ER for evaluation immediately following use. (Patient not taking: Reported on 06/02/2023) 4 each 1 - omeprazole (PriLOSEC) 40 MG capsule TAKE ONE CAPSULE BY MOUTH DAILY 90 capsule 1 - ondansetron (ZOFRAN-ODT) 4 MG disintegrating tablet Take 1 tablet (4 mg total) by mouth every 8 (eight) hours as needed. 20 tablet 0 - [START ON 12/07/2023] oxyCODONE-acetaminophen (Percocet) 10-325 mg tablet Take 1 tablet by mouth every 6 (six) hours as needed for pain. To Last 30days. No early refills Max Daily Amount: 4 tablets 120 tablet 0 - oxyCODONE-acetaminophen (Percocet) 10-325 mg tablet Take 1 tablet by mouth every 6 (six) hours as needed for pain. To Last 30days. No early refills Max Daily Amount: 4 tablets 120 tablet 0 - potassium chloride (KLOR-CON) 10 MEQ CR tablet Take 1 tablet (10 mEq total) by mouth 2 (two) times a day. 60 tablet 6 - prazosin (MINIPRESS) 2 MG capsule TAKE 3 CAPSULES BY MOUTH EVERY EVENING 270 capsule 1 - tiZANidine (ZANAFLEX) 4 MG tablet Take 1 tablet (4 mg total) by mouth 2 (two) times a day. 60 tablet 3 - topiramate (TOPAMAX) 25 MG tablet TAKE TWO TABLETS BY MOUTH EVERY MORNING AND TAKE ONE TABLET BY MOUTH EVERY EVENING 90 tablet 5 Current Facility-Administered Medications Medication Dose Route Frequency Provider Last Rate Last Admin - pneumococcal 20-valent vaccine (PREVNAR 20) syringe 0.5 mL IntraMuscular Once Mike Ann Jr., MD ALLERGIES Allergies Allergen Reactions - Penicillins Anaphylaxis - Gabapentin Other (See Comments) severe fatigue - Sulfa (Sulfonamide Antibiotics) Other (See Comments) Blisters inside and outside of mouth. - Wellbutrin [Bupropion Hcl] Other (See Comments) Body numbness and tingling - Bee Pollens Yellow jackets, Wasps - Diazepam Nausea And Vomiting - Varenicline Other reaction(s): Not available PHYSICAL EXAM Vital Signs: BP (!) 154/82 (BP Location: Right arm) Pulse 108 Constitutional: Well nourished, well groomed, NAD. CARDIAC: Regular Rate LUNGS: Breathing nonlabored, no wheezing Neurologic: Alert & oriented x 3, normal gait, no focal deficits noted. Psychiatric: Affect normal, judgment normal, mood normal. Other Affected BA/OS: Chronic Opiate Therapy Risk Mitigation: Risk Assessment Evaluation Assessment Morphine Equivalents 60 Date of Last UDS SOAPP-R Score Behavior Risks none Physical Risks none H/o Illegal Substance Abuse denies H/o Alcohol abuse denies OPIATE RISK ASSESSMENT: LOW (Routine medication monitoring, Annual UDS) Assessment is based treating physicians overall evaluation of multiple factors including MME load, age, comorbidity, medication profile, and social risk factors. The risks/benefits of chronic opiate therapy was discussed with patient including failure of therapy, psychological addiction, physiological dependence, and risk withdrawal syndrome. Warning symptoms of potential opiate overuse/overdose were discussed including sedation, somnolence, and altered mentation were reviewed and I counseled patient these symptoms can occur even when patient have been on a stable dose and also can happen despite following physicians instructions. Alternative therapies were discussed including: non-opiate medications, interventional pain procedures, and Cognitive Behavioral Therapy. After discussing these alternatives with the patient, the patient has opted to decline these alternatives at this time. Patient has tried and failed more conservative measures and were either ineffective or intolerant. In my medical opinion non-opiate therapy is not appropriate to address the patient's medical condition at this time and will continue chronic opiate therapy after having addressed efficacy, adverse side effects, and safety of therapy with the patient. The patient indicates understanding of these issues and agrees with the plan. LIFESTYLE COUNSELING: Time was spent discussing the importance of a home exercise program to promote strength, activity endurance and pain tolerance. Patient was also counseled on avoidance of tobacco products for general health as well as improved chronic pain control. ASSESSMENT AND PLAN Problem List Items Addressed This Visit Cervical radiculopathy Relevant Medications oxyCODONE-acetaminophen (Percocet) 10-325 mg tablet (Start on 12/07/2023) oxyCODONE-acetaminophen (Percocet) 10-325 mg tablet Failed back syndrome - Primary Relevant Medications oxyCODONE-acetaminophen (Percocet) 10-325 mg tablet Lumbar spondylosis Relevant Medications oxyCODONE-acetaminophen (Percocet) 10-325 mg tablet (Start on 12/07/2023) oxyCODONE-acetaminophen (Percocet) 10-325 mg tablet Osteoarthritis of knee Relevant Medications oxyCODONE-acetaminophen (Percocet) 10-325 mg tablet (Start on 12/07/2023) PLAN: 1. Patient is stable functional and meeting the goals of chronic opiate therapy without adverse side effects, misuse, or safety concerns. PDMP was reviewed without redflags or other concerns. 2. I will continue her percocet to 10/325 qid and f/u in 4weeks 3. May call for repeat cervical WAQAR when ready The patient indicates understanding of these issues and agrees with the plan. I reviewed the patient's medical information and medical history. I have reviewed the past medical, family, and social history sections including the medications and allergies listed in the above medical record. Patient was counseled that in my practice I do not prescribe chronic opiate therapy in the presence of ongoing illegal substance use. Patient was also counseled that drug screen testing is medically necessary from time to time to help stratify risks associated with chronic opiate therapy by assessing compliance with prescribed medications as well as to identify the presence of illegal substances. Consent for drug screen testing is required for continuation of chronic opiate therapy. ISAÍAS CARDENAS [facility] 2023-09-22 10:45:00 PatientIbis s consent to Mike Ann Jr., MD's use of Augmedix at today's visit. BAH [facility] 2023-09-22 10:45:00 . KVNG BAH [facility] 2023-09-22 10:45:00 Subjective: Patient ID: Ibis Tay is a 68 y.o. female. Chief Complaint Patient presents with - Follow-up Test results - URI Runny nose, sinus pressure HPI Ibis Tay is a 68 y.o. female presenting today for: Follow up. The patient has a history of essential hypertension. She has been doing well. Patient is taking 25 mg hydrochlorothiazide take 1/2 tablet daily QD with benefit and is taking lisinopril 5 mg QD with benefit. She denies any side-effects secondary to medication. Her blood pressure today is 90/64. She is trying to follow a low-salt diet. She denies headaches, chest pain, shortness of breath, or lower extremity swelling at present. BP Readings from Last 3 Encounters: 09/22/23 90/64 09/08/23 117/73 08/25/23 118/62 The patient reports upper respiratory infection symptoms. Her associated symptoms include runny nose, and sinus pressure. She has a dry cough, nasal congestion, and sinus infection for past 3 weeks. She has lot of pressure in her face. She has seasonal allergies, especially in spring season. She is taking Zyrtec 10 mg once a day with benefit. She denies any side-effects secondary to medication. The patient has a history of Non-small cell lung cancer. Patient had a left lung cancer. She had a left upper lobectomy at [facility] with Dr. Moore in 2018. The patient smokes cigarettes every day about 2 packs a day. The patient has a history of Vitamin D deficiency . She is taking cholecalciferol 5000 units once daily with benefit. She denies any side-effects secondary to medication. The patient has a history of osteoporosis. She is not taking calcium-vitamin D 500 mg(1,250mg) -200 unit twice a day and ibandronate. She denies any side-effects secondary to medication. The patient had DEXA scan on 08/31/2023 that showed Osteoporosis. Fracture risk is increased. Review of Systems General : No weight gain or loss, no loss of appetite, no fever, no chills, no fatigue, no night sweats Skin And lymphatics: No rashes, no skin discolorations, no easy bruising, no lymphadenopathy Head: No headaches, no dizziness, no masses, no seizures Eyes: No visual changes no eye pain Ears: No tinnitus, no vertigo, no hearing loss Nose: Positive for nasal congestion, rhinorrhea, and sinus pressure. Mouth and throat: Denies dental disease, no hoarseness, no throat pain Respiratory: Positive for a dry cough. no shortness of breath, no sputum production Cardiovascular: No chest pain, no orthopnea, no paroxysmal nocturnal dyspnea, or dyspnea on exertion, no claudication, no edema, no valvular disease Gastrointestinal: No dysphagia, no abdominal pain, no nausea, no vomiting, no hematemesis, no diarrhea, no constipation, no melena, no hematochezia Genitourinary: No dysuria, no frequency, no hesitancy, no hematuria no discharge Endocrine: No polyuria, no polydipsia, no skin or hair changes, no heat intolerance Musculoskeletal: No joint pain or swelling, no arthritis, no myalgias Neuropsychiatric: No weakness no seizures, no memory changes, no depression Neurologic: No unilateral or bilateral numbness tingling or weakness, no difficulty with speech, no vision changes, no problems with balance, denies dizziness, denies headache Objective: BP 90/64 (CUFF SIZE: Small Adult) Pulse 95 Temp 36.6 C (97.8 F) (Temporal Artery (forehead)) Resp 18 Wt 44.9 kg (99 lb) SpO2 96% BMI 19.33 kg/m Physical Exam Nursing note and vitals reviewed. Constitutional: Patient appears well-developed and well-nourished. No distress. Head: Normocephalic and atraumatic. Right Ear: External ear normal. no erythema bright tympanic membrane bony landmarks intact Left Ear: External ear normal. No erythema bright tympanic membrane bony landmarks intact Mouth/Throat: No oropharyngeal exudate. Nose: The patient has percussion tenderness on her maxillary and frontal sinus. No post nasal drip. Eyes: Pupils are equal, round, and reactive to light. Right eye exhibits no discharge. Left eye exhibits no discharge. No scleral icterus. Neck: No JVD present. No tracheal deviation present. No thyromegaly present. Cardiovascular: Normal rate, regular rhythm, normal heart sounds and intact distal pulses. Exam reveals no gallop and no friction rub. No murmur heard. Pulmonary/Chest: Effort normal. No respiratory distress. patient has no wheezes. patient has no rales. Patient exhibits no tenderness. Abdominal: Soft. Patient exhibits no distension and no mass. There is no tenderness to palpation. There is no rebound and no guarding. Musculoskeletal: Normal range of motion. Patient exhibits no edema and no tenderness. Neurological: patient is alert and oriented to person, place, and time. gait balance and strength intact upper and lower extremity, cranial nerves 2-12 intact Skin: Skin is warm. No rash noted. Patient is not diaphoretic. No erythema. No pallor. Assessment/Plan: Problem List Items Addressed This Visit Non-small cell lung cancer (HCC) - Primary Other Visit Diagnoses Screening for colorectal cancer Lung infection Relevant Medications doxycycline (VIBRAMYCIN) 100 MG capsule Acute non-recurrent maxillary sinusitis Relevant Medications doxycycline (VIBRAMYCIN) 100 MG capsule Acute rhinitis Relevant Medications fluticasone propionate (FLONASE) 50 mcg/actuation nasal spray Other osteoporosis without current pathological fracture Relevant Medications denosumab (PROLIA) 60 mg/mL SubCutaneous injection 1. Non-small cell lung cancer, unspecified laterality (HCC) patient on last CT abdomen/pelvis found to have left basilar nodular groundglass opacities concerning for aspiration or infection she has a follow-up CT chest with contrast scheduled for later this year 2. Screening for colorectal cancer discussed cologuard versus colonoscopy 3. Lung infection New prescription doxycycline (VIBRAMYCIN) 100 MG capsule; Take 1 capsule (100 mg total) by mouth 2 (two) times a day for 10 days. Dispense: 20 capsule; Refill: 0 4. Acute non-recurrent maxillary sinusitis New prescription doxycycline (VIBRAMYCIN) 100 MG capsule; Take 1 capsule (100 mg total) by mouth 2 (two) times a day for 10 days. Dispense: 20 capsule; Refill: 0 5. Acute rhinitis New prescription fluticasone propionate (FLONASE) 50 mcg/actuation nasal spray; 2 sprays by Each Nostril route once daily. Dispense: 16 g; Refill: 11 6. Other osteoporosis without current pathological fracture New prescription denosumab (PROLIA) 60 mg/mL SubCutaneous injection; Inject 1 mL (60 mg total) under the skin once for 1 dose. Dispense: 1 mL; Refill: 0 Attestation: The patient indicates understanding of these issues and agrees with the plan. I reviewed the patient's medical information and medical history. I have reviewed the past medical, family, and social history sections including the medications and allergies listed in the above medical record. Signature: I, Shannon Collazo, am scribing for and in the presence of Mike Ann Jr., MD. . I have read and agree with the documentation that has been completed regarding this visit and attest, that it is an accurate record of both my words and actions during the visit. . MIKE ANN JR, [facility] 2023-09-08 11:10:00 [facility] CHIEF COMPLAINT Back Pain and Neck Pain SUBJECTIVE Ibis Tay is a 68 y.o. female who presents for follow-up of Back Pain and Neck Pain with diagnosis of: 1. Problem List Items Addressed This Visit Cervical radiculopathy Relevant Medications oxyCODONE-acetaminophen (Percocet) 10-325 mg tablet (Start on 10/08/2023) oxyCODONE-acetaminophen (Percocet) 10-325 mg tablet Failed back syndrome - Primary Relevant Medications oxyCODONE-acetaminophen (Percocet) 10-325 mg tablet Lumbar spondylosis Relevant Medications oxyCODONE-acetaminophen (Percocet) 10-325 mg tablet (Start on 10/08/2023) oxyCODONE-acetaminophen (Percocet) 10-325 mg tablet Osteoarthritis of knee Relevant Medications oxyCODONE-acetaminophen (Percocet) 10-325 mg tablet (Start on 10/08/2023) Patient underwent LESI on 21She notes 50% improvement but continues with low back and joint pain. She notes that she has prior cervical WAQAR with >50% relief lasting 8-10mos. She feels the pain has recurred and would like to proceed with repeat cervical WAQAR She has tried OTC NSAIDs, daily home exercises/stretching she learned through PT without improvement Since patient's last encounter patient reports persistent chronic pain requiring ongoing treatment. Describes the pain as Sharp and Stabbing Patient rates their pain score 7/10 on average and is tolerable. Patient feels that the medication regimen does help maintain the function, mobility, activity tolerance and pain levels at a tolerable level. Patient states that medications changes or injections are not necessary today Patient states that the pain symptoms are stable. Patient denies new or changing pain complaints. Patient notes that the pain is worse with general activity and improved with rest. Patient 's current pain medication regimen has been reviewed with the patient and they note that the medication regimen is effective and reports that they are taking the medication regimen as prescribed. Patient denies running out of medication early or having an excess supply of medications. Other concerns: no new concerns at this time Patient's current pain medications has been reviewed and includes: DRUG FREQ Percocet qid qid Patient's most recent interventional procedures: PROCEDURE DATE % Relief & Duration Interlaminar Lumbar Epidural Steroid Injection L3 - L4 12/19/20 ROS Constitutional: denies dizziness, sedation, or somnolence Psychological: denies altered mentation or euphoria GI: denies significant constipation or diarrhea Musc: denies acute change in numbness, weakness, or tingling of extemities MEDICATIONS Current Outpatient Medications Medication Sig Dispense Refill - albuterol sulfate hfa 90 mcg/actuation aerosol inhaler INHALE TWO PUFFS BY MOUTH FOUR TIMES A DAY 8.5 g 11 - ALPRAZolam (XANAX) 0.5 MG tablet TAKE 1 TABLET BY MOUTH UP TO TWO TIMES A DAY NEEDED FOR ANXIETY AND/OR SLEEP 60 tablet 1 - budesonide-formoteroL (SYMBICORT) 160-4.5 mcg/actuation inhaler Inhale 2 puffs into the lungs 2 (two) times a day. 1 each 11 - calcium-vitamin D 500 mg(1,250mg) -200 unit per tablet Take 1 tablet by mouth 2 (two) times a day with meals. 180 tablet 2 - cetirizine (ZyrTEC) 10 MG tablet TAKE ONE TABLET BY MOUTH DAILY 30 tablet 11 - cholecalciferol (VITAMIN D3) 125 mcg (5,000 unit) capsule Take 1 capsule (5,000 Units total) by mouth once daily. 100 capsule 3 - food supplemt, lactose-reduced (Ensure) Liquid Drink 2 bottles per day. Patient requests strawberry. 55453 mL 3 - hydroCHLOROthiazide (HYDRODIURIL) 25 MG tablet TAKE 1/2 TABLET BY MOUTH DAILY 45 tablet 1 - ibandronate (Boniva) 150 mg tablet Take 1 tablet (150 mg total) by mouth every 30 (thirty) days. Take sitting upright once mobnthly on empty stomach with glass of water , dont lay down or eat for full hour 3 tablet 4 - ipratropium-albuteroL (DUO-NEB) 0.5-2.5 mg/3 mL nebulizer INHALE 1 VIAL VIA NEBULIZATION BY MOUTH FOUR TIMES A DAY 360 mL 1 - lisinopriL (PRINIVIL,ZESTRIL) 5 MG tablet TAKE ONE TABLET BY MOUTH DAILY 90 tablet 1 - [place] [facility] [place]ence pads, 2 per day 100 each 6 - miscellaneous medical [place] [facility] [place] machine for use for breathing problems for duo-nebs treatments 1 each 0 - miscellaneous medical supply [facility] [place] mask, tubing and filter for nebulizer machine to be changed every 3 months. 1 each 3 - naloxone 2 mg/actuation [place], Non-Aerosol 2 mg by Nasal route as needed. 1-2 daily PRN. Proceed to ER for evaluation immediately following use. (Patient not taking: Reported on 06/02/2023) 4 each 1 - omeprazole (PriLOSEC) 40 MG capsule TAKE ONE CAPSULE BY MOUTH DAILY 90 capsule 1 - ondansetron (ZOFRAN-ODT) 4 MG disintegrating tablet DISSOLVE ONE TO TWO TABLETS BY MOUTH EVERY 8 HOURS NEEDED FOR NAUSEA AND VOMITING 60 tablet 5 - ondansetron (ZOFRAN-ODT) 4 MG disintegrating tablet Take 1 tablet (4 mg total) by mouth every 8 (eight) hours as needed. 20 tablet 0 - [START ON 10/08/2023] oxyCODONE-acetaminophen (Percocet) 10-325 mg tablet Take 1 tablet by mouth every 6 (six) hours as needed for pain. To Last 30days. No early refills Max Daily Amount: 4 tablets 120 tablet 0 - oxyCODONE-acetaminophen (Percocet) 10-325 mg tablet Take 1 tablet by mouth every 6 (six) hours as needed for pain. To Last 30days. No early refills Max Daily Amount: 4 tablets 120 tablet 0 - potassium chloride (KLOR-CON) 10 MEQ CR tablet Take 1 tablet (10 mEq total) by mouth 2 (two) times a day. 60 tablet 6 - prazosin (MINIPRESS) 2 MG capsule TAKE THREE CAPSULES BY MOUTH EVERY EVENING 270 capsule 1 - tiZANidine (ZANAFLEX) 4 MG tablet Take 1 tablet (4 mg total) by mouth 2 (two) times a day. 60 tablet 3 - topiramate (Topamax) 25 MG tablet Take 2 tablet in the a.m. and 1 tablet in pm 90 tablet 11 Current Facility-Administered Medications Medication Dose Route Frequency Provider Last Rate Last Admin - pneumococcal 20-valent vaccine (PREVNAR 20) syringe 0.5 mL IntraMuscular Once Mike Ann Jr., MD ALLERGIES Allergies Allergen Reactions - Penicillins Anaphylaxis - Gabapentin Other (See Comments) severe fatigue - Sulfa (Sulfonamide Antibiotics) Other (See Comments) Blisters inside and outside of mouth. - Wellbutrin [Bupropion Hcl] Other (See Comments) Body numbness and tingling - Bee Pollens Yellow jackets, Wasps - Diazepam Nausea And Vomiting - Varenicline Other reaction(s): Not available PHYSICAL EXAM Vital Signs: BP 117/73 (BP Location: Right arm) Pulse 101 Constitutional: Well nourished, well groomed, NAD. CARDIAC: Regular Rate LUNGS: Breathing nonlabored, no wheezing Neurologic: Alert & oriented x 3, normal gait, no focal deficits noted. Psychiatric: Affect normal, judgment normal, mood normal. Other Affected BA/OS: Chronic Opiate Therapy Risk Mitigation: Risk Assessment Evaluation Assessment Morphine Equivalents 60 Date of Last UDS SOAPP-R Score Behavior Risks none Physical Risks none H/o Illegal Substance Abuse denies H/o Alcohol abuse denies OPIATE RISK ASSESSMENT: LOW (Routine medication monitoring, Annual UDS) Assessment is based treating physicians overall evaluation of multiple factors including MME load, age, comorbidity, medication profile, and social risk factors. The risks/benefits of chronic opiate therapy was discussed with patient including failure of therapy, psychological addiction, physiological dependence, and risk withdrawal syndrome. Warning symptoms of potential opiate overuse/overdose were discussed including sedation, somnolence, and altered mentation were reviewed and I counseled patient these symptoms can occur even when patient have been on a stable dose and also can happen despite following physicians instructions. Alternative therapies were discussed including: non-opiate medications, interventional pain procedures, and Cognitive Behavioral Therapy. After discussing these alternatives with the patient, the patient has opted to decline these alternatives at this time. Patient has tried and failed more conservative measures and were either ineffective or intolerant. In my medical opinion non-opiate therapy is not appropriate to address the patient's medical condition at this time and will continue chronic opiate therapy after having addressed efficacy, adverse side effects, and safety of therapy with the patient. The patient indicates understanding of these issues and agrees with the plan. LIFESTYLE COUNSELING: Time was spent discussing the importance of a home exercise program to promote strength, activity endurance and pain tolerance. Patient was also counseled on avoidance of tobacco products for general health as well as improved chronic pain control. ASSESSMENT AND PLAN Problem List Items Addressed This Visit Cervical radiculopathy Relevant Medications oxyCODONE-acetaminophen (Percocet) 10-325 mg tablet (Start on 10/08/2023) oxyCODONE-acetaminophen (Percocet) 10-325 mg tablet Failed back syndrome - Primary Relevant Medications oxyCODONE-acetaminophen (Percocet) 10-325 mg tablet Lumbar spondylosis Relevant Medications oxyCODONE-acetaminophen (Percocet) 10-325 mg tablet (Start on 10/08/2023) oxyCODONE-acetaminophen (Percocet) 10-325 mg tablet Osteoarthritis of knee Relevant Medications oxyCODONE-acetaminophen (Percocet) 10-325 mg tablet (Start on 10/08/2023) PLAN: 1. Patient is stable functional and meeting the goals of chronic opiate therapy without adverse side effects, misuse, or safety concerns. PDMP was reviewed without redflags or other concerns. 2. I will continue her percocet to 10/325 qid and f/u in 4weeks 3. May call for repeat cervical WAQAR when ready The patient indicates understanding of these issues and agrees with the plan. I reviewed the patient's medical information and medical history. I have reviewed the past medical, family, and social history sections including the medications and allergies listed in the above medical record. Patient was counseled that in my practice I do not prescribe chronic opiate therapy in the presence of ongoing illegal substance use. Patient was also counseled that drug screen testing is medically necessary from time to time to help stratify risks associated with chronic opiate therapy by assessing compliance with prescribed medications as well as to identify the presence of illegal substances. Consent for drug screen testing is required for continuation of chronic opiate therapy. [facility] CARDENAS [facility] 2023-08-25 14:45:00 PatientIbis s consent to Mike Ann Jr., MD's use of Augmedix at today's visit. OLIV[facility] 2023-08-25 14:45:00 Subjective: Patient ID: Ibis Tay is a 68 y.o. female. Chief Complaint Patient presents with - Follow-up Er on 08/03 for multiple things. Was influenza positive and dehydrated and was having diarrhea. Just feeling really weak now. HPI Ibis Tay is a 68 y.o. female presenting today for facility discharge. The patient was seen in the [facility] ER on 08/03/2023. She was discharged on 08/04/2023. She presented with diffuse abdominal pain, nausea, several episodes of nonbloody emesis and nonbloody diarrhea for the past 2 days. Informs that she had about 2 weeks of generalized bodyaches, rhinorrhea, nasal congestion, productive cough that started improving until the abdominal symptoms 2 days ago. Reports decreased urination today due to inability to keep any food or water down. Informed that she also has not been able to keep her opioids down for her chronic neck and back pain. Complains of increasing fatigue and bodyaches today. Denies new neck or back pain, new headache, new numbness or weakness, saddle anesthesia, urinary or bowel incontinence, rashes, wounds, shortness of breath, chest pain, hematemesis, melena, bloody stools, abnormal vaginal bleeding, seizures, recent falls or injuries, or LOC. She had an x-ray of chest on 08/03/2023 that revealed that Moderate hyperinflation. Slight elevation left hemidiaphragm relative to the right. There is leftward deviation of the mediastinum with obscured heart borders, similar to multiple priors. Cardiomediastinal silhouette is within normal limits. Aortic atherosclerosis. Clip projecting over left hilum. Pulmonary vasculature is within normal limits. No pneumothorax. No pleural effusion. No focal airspace consolidation. No acute osseous abnormality. Scoliosis. Multilevel spondylosis. Her CT scan of abdomen showed that Mild wall thickening of the rectosigmoid colon concerning for a nonspecific proctocolitis. Nonspecific mild dilation of the pancreatic duct which is slightly increased compared to prior. Consider further evaluation with nonemergent MRCP. Left basilar nodular and ground glass opacities concerning for aspiration or infection. 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 She was treated with levofloxacin 500 mg daily and metronidazole 500 mg twice a day and Zofran 4 mg every 8 hours as needed. Today, she does not have a abdominal pain today. She has been taking calcium tablets. Her potassium was at 3.0 on 08/03/2023. The patient has low potassium and was given potassium chloride 40 mEq. She has been eating and drinking well. Her bowel movements are normal. She denies any hematochezia or melena. She denies any urinary symptoms today. The patient has a history of chronic migraine headaches. She requests for a Toradol shot today. She locates pain behind her eyes. Per patient, she also notes spots in front of her eyes. She gets symptoms once or twice in a month. She has been taking Topamax 25 mg with limited benefit. She is not hearing any loud noises. The patient reports that she has urinary frequency, urgency, and burning. She also reports pruritus on her female area. She denies any vaginal discharge. She has been fatigue and tired. She reports weakness while walking up through the stairs. No chest pain or shortness of breath. The patient has a history of essential hypertension. Since her last visit, she reports she is doing well. Patient's current medications include: hydrochlorothiazide 25 mg take 0.5 tablet daily with benefit, reports no side effects and lisinopril 5 mg QD with benefit, reports no side effects. Her blood pressure today is 118/62. She is trying to follow a low-salt diet, walk 30 minutes 5 times weekly, and denies headaches, chest pain, shortness of breath, or lower extremity swelling at present. BP Readings from Last 3 Encounters: 08/25/23 118/62 08/11/23 129/60 08/04/23 114/57 The patient was influenza positive. The patient had a left lung cancer. She had a left upper lobectomy at [facility] with Dr. Moore in 2018. The patient has a history of GERD. Since her last visit, she reports she is doing well. Patient is taking omeprazole 40 mg QD with benefit, reports no side effects. Review of Systems General : No weight gain or loss, no loss of appetite, no fever, no chills, no fatigue, no night sweats Skin And lymphatics: No rashes, no skin discolorations, no easy bruising, no lymphadenopathy Head: Positive for headaches. no dizziness, no masses, no seizures Eyes: No visual changes no eye pain Ears: No tinnitus, no vertigo, no hearing loss Nose: No nosebleeds, no discharge, no sinus disease Mouth and throat: Denies dental disease, no hoarseness, no throat pain Respiratory: No cough, no shortness of breath, no sputum production Cardiovascular: No chest pain, no orthopnea, no paroxysmal nocturnal dyspnea, or dyspnea on exertion, no claudication, no edema, no valvular disease Gastrointestinal: No dysphagia, no abdominal pain, no nausea, no vomiting, no hematemesis, no diarrhea, no constipation, no melena, no hematochezia Genitourinary: Positive for urinary frequency, urgency, and burning. No dysuria, no hesitancy, no hematuria no discharge Endocrine: No polyuria, no polydipsia, no skin or hair changes, no heat intolerance Musculoskeletal: No joint pain or swelling, no arthritis, no myalgias Neuropsychiatric: No weakness no seizures, no memory changes, no depression Neurologic: Positive for headaches. No unilateral or bilateral numbness tingling or weakness, no difficulty with speech, no vision changes, no problems with balance, denies dizziness. Objective: BP 118/62 (BP Location: Left arm, Patient Position: Sitting) Pulse 100 Temp 35.9 C (96.7 F) (Temporal Artery (forehead)) Resp 18 Ht 152.4 cm (5') Wt 44.7 kg (98 lb 8 oz) SpO2 91% BMI 19.24 kg/m Physical Exam Nursing note and vitals reviewed. Constitutional: Patient appears well-developed and well-nourished. No distress. Head: Normocephalic and atraumatic. Right Ear: External ear normal. no erythema bright tympanic membrane bony landmarks intact Left Ear: External ear normal. No erythema bright tympanic membrane bony landmarks intact Mouth/Throat: The patient has upper and lower dentures. No oropharyngeal exudate. Nose: Her turbinates are pale. Eyes: Pupils are equal, round, and reactive to light. Right eye exhibits no discharge. Left eye exhibits no discharge. No scleral icterus. Neck: No JVD present. No tracheal deviation present. No thyromegaly present. Cardiovascular: Normal rate, regular rhythm, normal heart sounds and intact distal pulses. Exam reveals no gallop and no friction rub. No murmur heard. Pulmonary/Chest: Effort normal. No respiratory distress. patient has no wheezes. patient has no rales. Patient exhibits no tenderness. Abdominal: Soft. Patient exhibits no distension and no mass. There is no tenderness to palpation. There is no rebound and no guarding. Musculoskeletal: Normal range of motion. Patient exhibits no edema and no tenderness. Neurological: patient is alert and oriented to person, place, and time. gait balance and strength intact upper and lower extremity, cranial nerves 2-12 intact Skin: Skin is warm. No rash noted. Patient is not diaphoretic. No erythema. No pallor. Assessment/Plan: Problem List Items Addressed This Visit Mild episode of recurrent major depressive disorder (HCC) Urinary tract infection without hematuria Relevant Medications cephalexin (KEFLEX) 500 MG capsule Secondary malignant neoplasm of other specified sites (HCC) Iliac artery occlusion, bilateral (HCC) Alcohol dependence in remission (HCC) Other Visit Diagnoses Other migraine without status migrainosus, intractable - Primary Relevant Medications ketorolac (TORADOL) injection 60 mg (Completed) Chronic obstructive pulmonary disease, unspecified COPD type (HCC) (Chronic) Major depressive disorder, recurrent, moderate (HCC) Weakness Relevant Orders Vitamin B12 Hypokalemia Relevant Orders BASIC METABOLIC PANEL Other fatigue Relevant Orders Vitamin B12 TSH Urinary frequency Relevant Orders POCT UA Dipstick only. (Completed) 1. Other migraine without status migrainosus, intractable Administered ketorolac (TORADOL) injection 60 mg 2. Alcohol dependence in remission (HCC) continues in remission 3. Secondary malignant neoplasm of other specified sites (HCC) no reoccurance of lung cancer 4. Iliac artery occlusion, bilateral (HCC) not a surgical candidate 5. Chronic obstructive pulmonary disease, unspecified COPD type (HCC) Continue the current medication regimen. 6. Mild episode of recurrent major depressive disorder (HCC) Continue the current medication regimen. 7. Major depressive disorder, recurrent, moderate (HCC) Continue the current medication regimen. 8. Weakness Ordered Vitamin B12 We will notify the patient with the results. Advised the patient to increase water intake up to 8 glasses of water a day. Encouraged to eat healthy and exercise regularly 9. Hypokalemia Ordered BASIC METABOLIC PANEL We will notify the patient with the results. 10. Other fatigue Ordered: - Vitamin B12 - TSH We will notify the patient with the results. 11. Urinary frequency Ordered POCT UA Dipstick only. Results for orders placed or performed in visit on 08/25/23 POCT UA Dipstick only. Result Value Ref Range Color, UA Yellow Glucose, UA Negative Negative mg/dl Bilirubin, UA negative negative Ketones, UA Negative Negative mg/dl Spec Grav, UA 1.300 (A) 1.001 - 1.035 Blood, UA Negative Negative pH, UA 5.5 5.0 - 9.0 Protein, UA Negative Negative mg/dl Urobilinogen, UA 0.2 mg/dl 0.2 mg/dl, 1 mg/dl, Normal Nitrite, UA Negative Negative Leukocytes, UA Trace (A) Negative *Note: Due to a large number of results and/or encounters for the requested time period, some results have not been displayed. A complete set of results can be found in Results Review. 12. Urinary tract infection without hematuria, site unspecified New prescription cephalexin (KEFLEX) 500 MG capsule; Take 1 capsule (500 mg total) by mouth 3 (three) times a day for 3 days. Dispense: 9 capsule; Refill: 0 Attestation: The patient indicates understanding of these issues and agrees with the plan. I reviewed the patient's medical information and medical history. I have reviewed the past medical, family, and social history sections including the medications and allergies listed in the above medical record. Signature: I, Shannon Collazo, am scribing for and in the presence of Mike Ann Jr., MD. . I have read and agree with the documentation that has been completed regarding this visit and attest, that it is an accurate record of both my words and actions during the visit. . MIKE ANN JR [facility] 2023-08-11 14:50:00 [facility] CHIEF COMPLAINT No chief complaint on file. SUBJECTIVE Ibis Tay is a 68 y.o. female who presents for follow-up of No chief complaint on file. with diagnosis of: 1. Problem List Items Addressed This Visit Failed back syndrome Lumbar spondylosis - Primary Patient underwent LESI on 12-19-20She notes 50% improvement but continues with low back and joint pain. She notes that she has prior cervical WAQAR with >50% relief lasting 8-10mos. She feels the pain has recurred and would like to proceed with repeat cervical WAQAR She has tried OTC NSAIDs, daily home exercises/stretching she learned through PT without improvement Since patient's last encounter patient reports persistent chronic pain requiring ongoing treatment. Describes the pain as Sharp and Stabbing Patient rates their pain score 7/10 on average and is tolerable. Patient feels that the medication regimen does help maintain the function, mobility, activity tolerance and pain levels at a tolerable level. Patient states that medications changes or injections are not necessary today Patient states that the pain symptoms are stable. Patient denies new or changing pain complaints. Patient notes that the pain is worse with general activity and improved with rest. Patient 's current pain medication regimen has been reviewed with the patient and they note that the medication regimen is effective and reports that they are taking the medication regimen as prescribed. Patient denies running out of medication early or having an excess supply of medications. Other concerns: no new concerns at this time Patient's current pain medications has been reviewed and includes: DRUG FREQ Percocet qid qid Patient's most recent interventional procedures: PROCEDURE DATE % Relief & Duration Interlaminar Lumbar Epidural Steroid Injection L3 - L4 12/19/20 ROS Constitutional: denies dizziness, sedation, or somnolence Psychological: denies altered mentation or euphoria GI: denies significant constipation or diarrhea Musc: denies acute change in numbness, weakness, or tingling of extemities MEDICATIONS Current Outpatient Medications Medication Sig Dispense Refill - albuterol sulfate hfa 90 mcg/actuation aerosol inhaler INHALE TWO PUFFS BY MOUTH FOUR TIMES A DAY 8.5 g 11 - ALPRAZolam (Xanax) 0.5 MG tablet Take one pill up to twice daily prn anxiety and/or sleep. Next refill around jun 25 60 tablet 1 - budesonide-formoteroL (SYMBICORT) 160-4.5 mcg/actuation inhaler Inhale 2 puffs into the lungs 2 (two) times a day. 1 each 11 - calcium-vitamin D 500 mg(1,250mg) -200 unit per tablet Take 1 tablet by mouth 2 (two) times a day with meals. 180 tablet 2 - cetirizine (ZyrTEC) 10 MG tablet TAKE ONE TABLET BY MOUTH DAILY 30 tablet 11 - cholecalciferol (VITAMIN D3) 125 mcg (5,000 unit) capsule Take 1 capsule (5,000 Units total) by mouth once daily. 100 capsule 3 - food supplemt, lactose-reduced (Ensure) Liquid Drink 2 bottles per day. Patient requests strawberry. [id number] mL 3 - hydroCHLOROthiazide (HYDRODIURIL) 25 MG tablet TAKE 1/2 TABLET BY MOUTH DAILY 45 tablet 1 - ibandronate (Boniva) 150 mg tablet Take 1 tablet (150 mg total) by mouth every 30 (thirty) days. Take sitting upright once mobnthly on empty stomach with glass of water , dont lay down or eat for full hour (Patient not taking: Reported on 04/25/2023) 3 tablet 4 - ipratropium-albuteroL (DUO-NEB) 0.5-2.5 mg/3 mL nebulizer INHALE 1 VIAL VIA NEBULIZATION BY MOUTH FOUR TIMES A DAY 360 mL 1 - levoFLOXacin (LEVAQUIN) 500 MG tablet Take 1 tablet (500 mg total) by mouth once daily for 7 days. 7 tablet 0 - lisinopriL (PRINIVIL,ZESTRIL) 5 MG tablet TAKE ONE TABLET BY MOUTH DAILY 90 tablet 1 - metroNIDAZOLE (FlagyL) 500 MG tablet Take 1 tablet (500 mg total) by mouth 2 (two) times a day for 7 days. 14 tablet 0 - [place] [facility] [place]ence pads, 2 per day 100 each 6 - [place] medical [place] [facility] [place]bul[place] machine for use for breathing problems for duo-nebs treatments 1 each 0 - miscellaneous medical [place] [facility] [place] mask, tubing and filter for nebulizer machine to be changed every 3 months. 1 each 3 - naloxone 2 mg/actuation [place], Non-Aerosol 2 mg by Nasal route as needed. 1-2 daily PRN. Proceed to ER for evaluation immediately following use. (Patient not taking: Reported on 06/02/2023) 4 each 1 - omeprazole (PriLOSEC) 40 MG capsule TAKE ONE CAPSULE BY MOUTH DAILY 90 capsule 1 - ondansetron (ZOFRAN-ODT) 4 MG disintegrating tablet DISSOLVE ONE TO TWO TABLETS BY MOUTH EVERY 8 HOURS NEEDED FOR NAUSEA AND VOMITING 60 tablet 5 - ondansetron (ZOFRAN-ODT) 4 MG disintegrating tablet Take 1 tablet (4 mg total) by mouth every 8 (eight) hours as needed. 20 tablet 0 - oxyCODONE-acetaminophen (Percocet) 10-325 mg tablet Take 1 tablet by mouth every 6 (six) hours as needed for pain. To Last 30days. No early refills Max Daily Amount: 4 tablets 120 tablet 0 - oxyCODONE-acetaminophen (Percocet) 10-325 mg tablet Take 1 tablet by mouth every 6 (six) hours as needed for pain. To Last 30days. No early refills Max Daily Amount: 4 tablets 120 tablet 0 - potassium chloride (KLOR-CON) 10 MEQ CR tablet Take 1 tablet (10 mEq total) by mouth 2 (two) times a day. 60 tablet 6 - prazosin (MINIPRESS) 2 MG capsule TAKE THREE CAPSULES BY MOUTH EVERY EVENING 270 capsule 1 - tiZANidine (ZANAFLEX) 4 MG tablet Take 1 tablet (4 mg total) by mouth 2 (two) times a day. 60 tablet 3 - topiramate (Topamax) 25 MG tablet Take 2 tablet in the a.m. and 1 tablet in pm 90 tablet 11 Current Facility-Administered Medications Medication Dose Route Frequency Provider Last Rate Last Admin - pneumococcal 20-valent vaccine (PREVNAR 20) syringe 0.5 mL IntraMuscular Once Mike Ann Jr., MD ALLERGIES Allergies Allergen Reactions - Penicillins Anaphylaxis - Gabapentin Other (See Comments) severe fatigue - Sulfa (Sulfonamide Antibiotics) Other (See Comments) Blisters inside and outside of mouth. - Wellbutrin [Bupropion Hcl] Other (See Comments) Body numbness and tingling - Bee Pollens Yellow jackets, Wasps - Diazepam Nausea And Vomiting - Varenicline Other reaction(s): Not available PHYSICAL EXAM Vital Signs: BP 129/60 (BP Location: Right arm) Pulse 109 Constitutional: Well nourished, well groomed, NAD. CARDIAC: Regular Rate LUNGS: Breathing nonlabored, no wheezing Neurologic: Alert & oriented x 3, normal gait, no focal deficits noted. Psychiatric: Affect normal, judgment normal, mood normal. Other Affected BA/OS: Chronic Opiate Therapy Risk Mitigation: Risk Assessment Evaluation Assessment Morphine Equivalents 60 Date of Last UDS SOAPP-R Score Behavior Risks none Physical Risks none H/o Illegal Substance Abuse denies H/o Alcohol abuse denies OPIATE RISK ASSESSMENT: LOW (Routine medication monitoring, Annual UDS) Assessment is based treating physicians overall evaluation of multiple factors including MME load, age, comorbidity, medication profile, and social risk factors. The risks/benefits of chronic opiate therapy was discussed with patient including failure of therapy, psychological addiction, physiological dependence, and risk withdrawal syndrome. Warning symptoms of potential opiate overuse/overdose were discussed including sedation, somnolence, and altered mentation were reviewed and I counseled patient these symptoms can occur even when patient have been on a stable dose and also can happen despite following physicians instructions. Alternative therapies were discussed including: non-opiate medications, interventional pain procedures, and Cognitive Behavioral Therapy. After discussing these alternatives with the patient, the patient has opted to decline these alternatives at this time. Patient has tried and failed more conservative measures and were either ineffective or intolerant. In my medical opinion non-opiate therapy is not appropriate to address the patient's medical condition at this time and will continue chronic opiate therapy after having addressed efficacy, adverse side effects, and safety of therapy with the patient. The patient indicates understanding of these issues and agrees with the plan. LIFESTYLE COUNSELING: Time was spent discussing the importance of a home exercise program to promote strength, activity endurance and pain tolerance. Patient was also counseled on avoidance of tobacco products for general health as well as improved chronic pain control. ASSESSMENT AND PLAN Problem List Items Addressed This Visit Failed back syndrome Lumbar spondylosis - Primary PLAN: 1. Patient is stable functional and meeting the goals of chronic opiate therapy without adverse side effects, misuse, or safety concerns. PDMP was reviewed without redflags or other concerns. 2. I will continue her percocet to 10/325 qid and f/u in 4weeks 3. May call for repeat cervical WAQAR when ready The patient indicates understanding of these issues and agrees with the plan. I reviewed the patient's medical information and medical history. I have reviewed the past medical, family, and social history sections including the medications and allergies listed in the above medical record. Patient was counseled that in my practice I do not prescribe chronic opiate therapy in the presence of ongoing illegal substance use. Patient was also counseled that drug screen testing is medically necessary from time to time to help stratify risks associated with chronic opiate therapy by assessing compliance with prescribed medications as well as to identify the presence of illegal substances. Consent for drug screen testing is required for continuation of chronic opiate therapy. IS[facility]NAS [facility] 2023-08-08 08:11:00 Discharge Care Coord ination Note: Type of Encounter: Second Attempt: Unsuccessful attempt to reach patient by phone re: ER Discharge follow-up. Patient not available. Unable to reach patient by phone for follow up. Letter sent to patient . Hospital Discharge Details: Recent admit date - 08/03/23 Discharge date - 08/04/23 Discharge Dx - Abdominal pain Discharge Disposition - Home or Self Care All Future [facility] Appointments: (Scheduled as of the time this note was created) Future Appointments Date Time Provider Department Center 08/11/2023 2:50 PM Isaías Cardenas MD [facility] 08/31/2023 10:00 AM [facility] RAD DIAGNOSTIC DEXA [facility] [place] 08/31/2023 10:45 AM [facility] MAMMOGRAPHY RM 1 IMCMAMMO [place] 09/05/2023 11:00 AM [facility] CT RM 1 -16 SLICE [facility]CT [facility] 2023-08-05 11:57:00 Discharge Care Coord ination Note: Type of Encounter: First Attempt: Unsuccessful attempt to reach patient by phone re: ER Discharge follow-up. Patient not available. Hospital Discharge Details: Recent admit date - 08/03/23 Discharge date - 08/04/23 Discharge Dx - Abdominal pain Discharge Disposition - Home or Self Care All Future [facility] Appointments: (Scheduled as of the time this note was created) Future Appointments Date Time Provider Department Center 08/11/2023 2:50 PM Isaías Cardenas MD [facility] 08/31/2023 10:00 AM [facility] RAD DIAGNOSTIC DEXA [facility] [place] 08/31/2023 10:45 AM [facility] MAMMOGRAPHY RM 1 IMCMAMMO [place] 09/05/2023 11:00 AM [facility] CT RM 1 -16 SLICE [facility]CT [facility] 2023-08-03 18:19:17 [facility] EMERGENCY DEPARTMENT ENCOUNTER Pt Name: Ibis Tay Birthdate 1955 Date of evaluation: 08/03/2023 Provider: Chadwick Loredo DO CHIEF COMPLAINT Chief Complaint Patient presents with - Influenza-Like Illness Critical Care was not performed on this patient HISTORY OF PRESENT ILLNESS (Location/Symptom, Timing/Onset, Context/Setting, Quality, Duration, Modifying Factors, Severity.) Ibis Tay is a 68 y.o. female who presents to the emergency department with gradual onset of diffuse abdominal pain, nausea, several episodes of nonbloody emesis and nonbloody diarrhea for the past 2 days. Informs that she had about 2 weeks of generalized bodyaches, rhinorrhea, nasal congestion, productive cough that started improving until the abdominal symptoms 2 days ago. Reports decreased urination today due to inability to keep any food or water down. Informs that she also has not been able to keep her opioids down for her chronic neck and back pain. Complains of increasing fatigue and bodyaches today. Denies new neck or back pain, new headache, new numbness or weakness, saddle anesthesia, urinary or bowel incontinence, rashes, wounds, shortness of breath, chest pain, hematemesis, melena, bloody stools, abnormal vaginal bleeding, seizures, recent falls or injuries, or LOC. Unsure about recent sick contact. Denies recent travel. Denies use of excessive alcohol or recreational drugs. Reports history of abdominal surgeries including hernia repair. Nursing Notes were reviewed. REVIEW OF SYSTEMS Review of Systems Constitutional: Positive for fatigue. Negative for fever and unexpected weight change. HENT: Negative for hearing loss and nosebleeds. Eyes: Negative for pain and visual disturbance. Respiratory: Negative for cough, chest tightness and shortness of breath. Cardiovascular: Negative for chest pain. Gastrointestinal: Positive for abdominal pain, diarrhea, nausea and vomiting. Negative for constipation. Genitourinary: Positive for decreased urine volume. Negative for difficulty urinating, dyspareunia, dysuria, enuresis, flank pain, frequency, genital sores, hematuria, urgency and vaginal bleeding. Musculoskeletal: Positive for arthralgias and myalgias. Skin: Negative for color change and rash. Neurological: Negative for dizziness, tremors, seizures, syncope, facial asymmetry, speech difficulty, weakness, light-headedness, numbness and headaches. Psychiatric/Behavioral: Negative for confusion. Except as noted above the remainder of the review of systems was reviewed and negative. PAST MEDICAL HISTORY Past Medical History: Diagnosis Date - Anxiety Takes Xanax - Arthritis - Breast mass 2013 rt axilla - Bronchitis - Bursitis Left hip - Cancer (HCC) 12\2016 left lung cancer, scheduled for left upper lobectomy at [facility] with Dr. Moore - Cervical radiculopathy sees Dr. Cardenas, gets cervical pain injections every 3 months, last done in - COPD (chronic obstructive pulmonary disease) ([facility]) - DDD (degenerative disc disease) - Depression dr. lemos-psychiarist - Dermatological disorder 01/2011 irratative dermatitis from insect b ite - Esophageal stricture dilated during upper endoscopy - Generalized anxiety disorder - GERD (gastroesophageal reflux disease) - H. pylori infection Hx of H pylori infection several months ago treated with medication, no current issues. - H/O pyloric stenosis - Hematuria 01/14/2023 ct abd/pelvis negative for stone /[facility] - Hiatal hernia - HTN (hypertension) - Hypercholesteremia - Hyperlipidemia No current medications or issues. - OA (osteoarthritis) of knee - Oxygen desaturation at night 3.5 liter - Palpitations with anxiety - Peripheral vascular disease ([facility]) 10/2020 abdominal pain-stricture liliac artery - Peripheral vascular disease ([facility]) 11/30/2022 Abnormal resting ankle brachial indices, waveform analysis and arterial duplex imaging of the right and left - Pneumonia 1994 resolved. - PONV (postoperative nausea and vomiting) - PTSD (post-traumatic stress disorder) son was murdered 8 years ago, followed by Dr. Milly Freire - Spinal stenosis cervical - Urinary incontinence - Wears dentures full set - Wears glasses SURGICAL HISTORY Past Surgical History: Procedure Laterality Date - ABDOMINAL HERNIA REPAIR 07/2022 robotic assisted/laparoscopic femoral/inguinal hernia repair with mesh - ESOPHAGEAL DILATION 2012 approx. done with upper endoscopy - Femoral inguinal hernia repair 08/09/2022 robotic assisted/laparoscopic femoral/inguinal hernia repair with mesh per dr roland - KNEE ARTHROPLASTY Right 2010 - LUMBAR FUSION 1995 - LUNG LOBECTOMY Left 10/11/2017 Upper - CO INTRODUCTION CATHETER AORTA Right 11/03/2020 Procedure: ABDOMINAL AORTOGRAM; Surgeon: Imelda Swan MD; Location: [facility]; Service: Vascular - CO TOTAL KNEE ARTHROPLASTY Right 05/28/2014 Procedure: REPLACEMENT TOTAL JOINT KNEE RIGHT / BETO ; Surgeon: Isaak Moncada MD; Location: [facility] OR; Service: Orthopedics - SPINE SURGERY lumbar fusion - TENDON RELEASE Right arm - TOTAL HIP ARTHROPLASTY Left 3/12/15 hip hem-iarthoplasty - TOTAL KNEE ARTHROPLASTY Left 11/23 - TUBAL LIGATION Bilateral - UPPER GASTROINTESTINAL ENDOSCOPY 2012 approx. diagnosed with H. Pylori and esophagus dilated. - UPPER GASTROINTESTINAL ENDOSCOPY CURRENT MEDICATIONS Previous Medications ALBUTEROL SULFATE HFA 90 MCG/ACTUATION AEROSOL INHALER INHALE TWO PUFFS BY MOUTH FOUR TIMES A DAY ALPRAZOLAM (XANAX) 0.5 MG TABLET Take one pill up to twice daily prn anxiety and/or sleep. Next refill around jun 25 BUDESONIDE-FORMOTEROL (SYMBICORT) 160-4.5 MCG/ACTUATION INHALER Inhale 2 puffs into the lungs 2 (two) times a day. CALCIUM-VITAMIN D 500 MG(1,250MG) -200 UNIT PER TABLET Take 1 tablet by mouth 2 (two) times a day with meals. CETIRIZINE (ZYRTEC) 10 MG TABLET TAKE ONE TABLET BY MOUTH DAILY CHOLECALCIFEROL (VITAMIN D3) 125 MCG (5,000 UNIT) CAPSULE Take 1 capsule (5,000 Units total) by mouth once daily. FOOD SUPPLEMT, LACTOSE-REDUCED (ENSURE) LIQUID Drink 2 bottles per day. Patient requests strawberry. HYDROCHLOROTHIAZIDE (HYDRODIURIL) 25 MG TABLET TAKE 1/2 TABLET BY MOUTH DAILY IBANDRONATE (BONIVA) 150 MG TABLET Take 1 tablet (150 mg total) by mouth every 30 (thirty) days. Take sitting upright once mobnthly on empty stomach with glass of water , dont lay down or eat for full hour IPRATROPIUM-ALBUTEROL (DUO-NEB) 0.5-2.5 MG/3 ML NEBULIZER INHALE 1 VIAL VIA NEBULIZATION BY MOUTH FOUR TIMES A DAY LISINOPRIL (PRINIVIL,ZESTRIL) 5 MG TABLET TAKE ONE TABLET BY MOUTH DAILY MISCELLANEOUS MEDICAL SUPPLY [facility] [place] Requests incontinence pads, 2 per day MISCELLANEOUS MED[employer] [facility] [place] Needs nebulizer machine for use for breathing problems for duo-nebs treatments MISCELLANEOUS MEDICAL SUP[employer]Y [facility] [place] Needs mask, tubing and filter for nebulizer machine to be changed every 3 months. NALOXONE 2 MG/ACTUATION SPRAY, NON-AEROSOL 2 mg by Nasal route as needed. 1-2 daily PRN. Proceed to ER for evaluation immediately following use. OMEPRAZOLE (PRILOSEC) 40 MG CAPSULE TAKE ONE CAPSULE BY MOUTH DAILY ONDANSETRON (ZOFRAN-ODT) 4 MG DISINTEGRATING TABLET DISSOLVE ONE TO TWO TABLETS BY MOUTH EVERY 8 HOURS NEEDED FOR NAUSEA AND VOMITING OXYCODONE-ACETAMINOPHEN (PERCOCET) 10-325 MG TABLET Take 1 tablet by mouth every 6 (six) hours as needed for pain. To Last 30days. No early refills Max Daily Amount: 4 tablets OXYCODONE-ACETAMINOPHEN (PERCOCET) 10-325 MG TABLET Take 1 tablet by mouth every 6 (six) hours as needed for pain. To Last 30days. No early refills Max Daily Amount: 4 tablets POTASSIUM CHLORIDE (KLOR-CON) 10 MEQ CR TABLET Take 1 tablet (10 mEq total) by mouth 2 (two) times a day. PRAZOSIN (MINIPRESS) 2 MG CAPSULE TAKE THREE CAPSULES BY MOUTH EVERY EVENING TIZANIDINE (ZANAFLEX) 4 MG TABLET Take 1 tablet (4 mg total) by mouth 2 (two) times a day. TOPIRAMATE (TOPAMAX) 25 MG TABLET Take 2 tablet in the a.m. and 1 tablet in pm ALLERGIES Penicillins, Gabapentin, Sulfa (sulfonamide antibiotics), Wellbutrin [bupropion hcl], Bee pollens, Diazepam, and Varenicline FAMILY HISTORY Family History Problem Relation Age of Onset - Other Other Hx: Yes Dx: Diabetes Fam Mem: Family h/o - Drug abuse Other - Other Other Hx: Yes Dx: Hypertension Fam Mem: Mother - Drug abuse Other - Hypertension Mother - Heart disease Mother - Diabetes Mother - No Known Problem Father - Other Sister - Cancer Sister - Other Other Hx: Yes Dx: Heart disease Fam Mem: Mother - Diabetes Maternal Grandmother SOCIAL HISTORY reports that she has been smoking cigarettes and vaporizer. She has a 88.0 pack-year smoking history. She has never used smokeless tobacco. She reports current alcohol use. She reports that she does not use drugs. PHYSICAL EXAM Vitals: 08/03/23 1813 BP: (!) 143/65 BP Location: Right arm Patient Position: Sitting Pulse: 96 Resp: 16 Temp: 36.8 C (98.2 F) TempSrc: Temporal SpO2: 100% Weight: 44.5 kg (98 lb 1.7 oz) Height: 5' (1.524 m) Physical Exam Vitals and nursing note reviewed. Constitutional: General: She is not in acute distress. Appearance: Normal appearance. She is well-developed. She is not ill-appearing, toxic-appearing or diaphoretic. HENT: Head: Normocephalic and atraumatic. Right Ear: External ear normal. Left Ear: External ear normal. Nose: Congestion present. Mouth/Throat: Mouth: Mucous membranes are moist. Eyes: General: No scleral icterus. Extraocular Movements: Extraocular movements intact. Conjunctiva/sclera: Conjunctivae normal. Pupils: Pupils are equal, round, and reactive to light. Neck: Thyroid: No thyromegaly. Trachea: No tracheal deviation. Comments: Mild chronic midline cervical spine tenderness. Cardiovascular: Rate and Rhythm: Normal rate and regular rhythm. Pulses: Normal pulses. Heart sounds: Normal heart sounds. No murmur heard. Pulmonary: Effort: Pulmonary effort is normal. No respiratory distress. Breath sounds: Normal breath sounds. No stridor. No wheezing, rhonchi or rales. Abdominal: General: Bowel sounds are normal. There is no distension. Palpations: Abdomen is soft. There is no mass. Tenderness: There is abdominal tenderness. There is no right CVA tenderness, left CVA tenderness, guarding or rebound. Hernia: No hernia is present. Comments: Mild diffuse abdominal tenderness including mild McBurney's point tenderness. Musculoskeletal: General: Tenderness present. Normal range of motion. Cervical back: Normal range of motion and neck supple. Tenderness present. No rigidity. Right lower leg: No edema. Left lower leg: No edema. Comments: Mild chronic diffuse lumbar spine tenderness. Skin: General: Skin is warm and dry. Capillary Refill: Capillary refill takes less than 2 seconds. Coloration: Skin is not jaundiced or pale. Findings: No bruising, erythema, lesion or rash. Neurological: Mental Status: She is alert and oriented to person, place, and time. Sensory: No sensory deficit. Motor: No weakness. Comments: 5/5 strength throughout all extremities. No saddle anesthesia. Psychiatric: Mood and Affect: Mood normal. Behavior: Behavior normal. DIAGNOSTIC RESULTS My EKG Interpretation: All EKG's are interpreted by the Emergency Department Physician who either signs or Co-signs this chart in the absence of a contact center associate. Pending My RADIOLOGY Interpretation: I provided an initial interpretation of x-rays, CT scans, and ultrasounds that were available to me prior to the final radiology interpretation Official Interpretation per the Radiologist below, if available at the time of this note: XR Chest 1 View Result Date: 08/03/2023 INDICATION: Cough COMPARISON: 05/22/2023 and 03/20/2021. TECHNIQUE: Portable upright AP. of the chest FINDINGS: Moderate hyperinflation. Slight elevation left hemidiaphragm relative to the right. There is leftward deviation of the mediastinum with obscured heart borders, similar to multiple priors. Cardiomediastinal silhouette is within normal limits. Aortic atherosclerosis. Clip projecting over left hilum. Pulmonary vasculature is within normal limits. No pneumothorax. No pleural effusion. No focal airspace consolidation. No acute osseous abnormality. Scoliosis. Multilevel spondylosis. 1. Stable appearance of the chest without evidence of acute cardiopulmonary abnormality. LABS: ED Lab Results None All other labs were within normal range or not returned as of this dictation. EMERGENCY DEPARTMENT COURSE and DIFFERENTIAL DIAGNOSIS / MDM: Vitals: ) Vitals: 08/03/23 1813 BP: (!) 143/65 BP Location: Right arm Patient Position: Sitting Pulse: 96 Resp: 16 Temp: 36.8 C (98.2 F) TempSrc: Temporal SpO2: 100% Weight: 44.5 kg (98 lb 1.7 oz) Height: 5' (1.524 m) Medical Decision Making -Patient is a 68-year-old female with gradual onset of diffuse abdominal pain, nausea, multiple episodes of nonbloody emesis and nonbloody diarrhea for the past 2 days, with worsening fatigue and decreased urination today. -Vitals within normal limits. Afebrile. No hypoxia. -Exam as noted above, remarkable for mild diffuse abdominal tenderness including mild McBurney's point tenderness. Equal pulses throughout. No peripheral edema. No acute respiratory distress. No traumatic injuries noted. No rashes or wounds noted. Chronic midline cervical and lumbar spine tenderness with no step-offs. No saddle anesthesia. No neurologic deficits. 5/5 strength throughout. Differential Diagnoses: considered during the patient's evaluation, including but not limited to: acute COPD exacerbation, pneumonia, pneumothorax, pulmonary edema, pleural effusion, viral syndrome, electrolyte imbalance, anemia, obstruction, pancreatitis, acute coronary syndrome, colitis, dehydration, UTI, pyelonephritis Although these conditions were considered, only those items listed in the Final Impression section were diagnosed and treated. The remaining differential diagnoses were not present during the ED evaluation. Shared Decision Making I discussed with the patient and, if available, the patient's family the findings of the patient's examination and test results in the emergency department. The risk and benefits of different treatment options were discussed and the patient and their family were allowed an opportunity to ask questions. We involved the patient and their family in the decision-making process and in the ultimate treatment and disposition decisions. ED Course -Workup with CBC, CMP, lipase, UA, lactic acid, EKG, chest x-ray, CT abdomen/pelvis with contrast. Given IV fluid bolus for hydration and IV morphine for pain control. -Patient signed out to oncoming provider, Dr. Ziegler, to follow-up on pending imaging, reassessment of patient, and final disposition accordingly. Administered Meds None Care Discussion I personally discussed the case with None PROCEDURES: Procedures None External documents reviewed Reviewed patient's ED visit note from 05/22/2023 when she was seen for cough and congestion for the past 3 days. Patient treated for COPD exacerbation with steroids and DuoNeb treatment at the time of discharge home after negative workup otherwise. Decision Rules Applied None FINAL IMPRESSION 1. Generalized abdominal pain 2. Nausea vomiting and diarrhea 3. Other fatigue DISPOSITION Signed out to oncoming provider (Please note that portions of this note were completed with a voice recognition program. Efforts were made to edit the dictations but occasionally words are mis-transcribed.) DO Chadwick Tafoya DO 08/03/231918 [facility] 2023-07-04 11:20:00 [facility] CHIEF COMPLAINT No chief complaint on file. SUBJECTIVE Ibis Tay is a 68 y.o. female who presents for follow-up of No chief complaint on file. with diagnosis of: 1. Problem List Items Addressed This Visit Cervical radiculopathy Relevant Medications oxyCODONE-acetaminophen (Percocet) 10-325 mg tablet tiZANidine (ZANAFLEX) 4 MG tablet Failed back syndrome Relevant Medications tiZANidine (ZANAFLEX) 4 MG tablet Lumbar spondylosis - Primary Relevant Medications oxyCODONE-acetaminophen (Percocet) 10-325 mg tablet tiZANidine (ZANAFLEX) 4 MG tablet Osteoarthritis of knee Relevant Medications oxyCODONE-acetaminophen (Percocet) 10-325 mg tablet Patient underwent LESI on 12-19-20She notes 50% improvement but continues with low back and joint pain. She notes that she has prior cervical WAQAR with >50% relief lasting 8-10mos. She feels the pain has recurred and would like to proceed with repeat cervical WAQAR She has tried OTC NSAIDs, daily home exercises/stretching she learned through PT without improvement Since patient's last encounter patient reports persistent chronic pain requiring ongoing treatment. Describes the pain as Sharp and Stabbing Patient rates their pain score 7/10 on average and is tolerable. Patient feels that the medication regimen does help maintain the function, mobility, activity tolerance and pain levels at a tolerable level. Patient states that medications changes or injections are not necessary today Patient states that the pain symptoms are stable. Patient denies new or changing pain complaints. Patient notes that the pain is worse with general activity and improved with rest. Patient 's current pain medication regimen has been reviewed with the patient and they note that the medication regimen is effective and reports that they are taking the medication regimen as prescribed. Patient denies running out of medication early or having an excess supply of medications. Other concerns: no new concerns at this time Patient's current pain medications has been reviewed and includes: DRUG FREQ Percocet qid qid Patient's most recent interventional procedures: PROCEDURE DATE % Relief & Duration Interlaminar Lumbar Epidural Steroid Injection L3 - L4 12/19/20 ROS Constitutional: denies dizziness, sedation, or somnolence Psychological: denies altered mentation or euphoria GI: denies significant constipation or diarrhea Musc: denies acute change in numbness, weakness, or tingling of extemities MEDICATIONS Current Outpatient Medications Medication Sig Dispense Refill - albuterol sulfate hfa 90 mcg/actuation aerosol inhaler INHALE TWO PUFFS BY MOUTH FOUR TIMES A DAY 8.5 g 11 - ALPRAZolam (Xanax) 0.5 MG tablet Take one pill up to twice daily prn anxiety and/or sleep. Next refill around jun 25 60 tablet 1 - budesonide-formoteroL (SYMBICORT) 160-4.5 mcg/actuation inhaler Inhale 2 puffs into the lungs 2 (two) times a day. 1 each 11 - calcium-vitamin D 500 mg(1,250mg) -200 unit per tablet Take 1 tablet by mouth 2 (two) times a day with meals. 180 tablet 2 - cetirizine (ZyrTEC) 10 MG tablet TAKE ONE TABLET BY MOUTH DAILY 30 tablet 11 - cholecalciferol (VITAMIN D3) 125 mcg (5,000 unit) capsule Take 1 capsule (5,000 Units total) by mouth once daily. 100 capsule 3 - food supplemt, lactose-reduced (Ensure) Liquid Drink 2 bottles per day. Patient requests strawberry. [address]202 mL 3 - hydroCHLOROthiazide (HYDRODIURIL) 25 MG tablet TAKE 1/2 TABLET BY MOUTH DAILY 45 tablet 1 - ibandronate (Boniva) 150 mg tablet Take 1 tablet (150 mg total) by mouth every 30 (thirty) days. Take sitting upright once mobnthly on empty stomach with glass of water , dont lay down or eat for full hour (Patient not taking: Reported on 04/25/2023) 3 tablet 4 - ipratropium-albuteroL (DUO-NEB) 0.5-2.5 mg/3 mL nebulizer INHALE 1 VIAL VIA NEBULIZATION BY MOUTH FOUR TIMES A DAY 360 mL 1 - lisinopriL (PRINIVIL,ZESTRIL) 5 MG tablet TAKE ONE TABLET BY MOUTH DAILY 90 tablet 1 - [place] [facility] [place] pads, 2 per day 100 each 6 - [place] [facility] [place]bul[place] for use for breathing problems for duo-nebs treatments 1 each 0 - miscellaneous medical [place] [facility] [place] mask, tubing and filter for nebulizer machine to be changed every 3 months. 1 each 3 - naloxone 2 mg/actuation [place], Non-Aerosol 2 mg by Nasal route as needed. 1-2 daily PRN. Proceed to ER for evaluation immediately following use. (Patient not taking: Reported on 06/02/2023) 4 each 1 - omeprazole (PriLOSEC) 40 MG capsule TAKE ONE CAPSULE BY MOUTH DAILY 90 capsule 1 - ondansetron (ZOFRAN-ODT) 4 MG disintegrating tablet DISSOLVE ONE TO TWO TABLETS BY MOUTH EVERY 8 HOURS NEEDED FOR NAUSEA AND VOMITING 60 tablet 5 - oxyCODONE-acetaminophen (Percocet) 10-325 mg tablet Take 1 tablet by mouth every 6 (six) hours as needed for pain. To Last 30days. No early refills Max Daily Amount: 4 tablets 120 tablet 0 - oxyCODONE-acetaminophen (Percocet) 10-325 mg tablet Take 1 tablet by mouth every 6 (six) hours as needed for pain. To Last 30days. No early refills Max Daily Amount: 4 tablets 120 tablet 0 - potassium chloride (KLOR-CON) 10 MEQ CR tablet Take 1 tablet (10 mEq total) by mouth 2 (two) times a day. 60 tablet 6 - prazosin (MINIPRESS) 2 MG capsule TAKE THREE CAPSULES BY MOUTH EVERY EVENING 270 capsule 1 - tiZANidine (ZANAFLEX) 4 MG tablet Take 1 tablet (4 mg total) by mouth 2 (two) times a day. 60 tablet 3 - topiramate (Topamax) 25 MG tablet Take 2 tablet in the a.m. and 1 tablet in pm 90 tablet 11 Current Facility-Administered Medications Medication Dose Route Frequency Provider Last Rate Last Admin - pneumococcal 20-valent vaccine (PREVNAR 20) syringe 0.5 mL IntraMuscular Once Mike Ann Jr., MD ALLERGIES Allergies Allergen Reactions - Penicillins Anaphylaxis - Gabapentin Other (See Comments) severe fatigue - Sulfa (Sulfonamide Antibiotics) Other (See Comments) Blisters inside and outside of mouth. - Wellbutrin [Bupropion Hcl] Other (See Comments) Body numbness and tingling - Bee Pollens Yellow jackets, Wasps - Diazepam Nausea And Vomiting - Varenicline Other reaction(s): Not available PHYSICAL EXAM Vital Signs: BP 95/63 (BP Location: Right arm) Pulse 102 Constitutional: Well nourished, well groomed, NAD. CARDIAC: Regular Rate LUNGS: Breathing nonlabored, no wheezing Neurologic: Alert & oriented x 3, normal gait, no focal deficits noted. Psychiatric: Affect normal, judgment normal, mood normal. Other Affected BA/OS: Chronic Opiate Therapy Risk Mitigation: Risk Assessment Evaluation Assessment Morphine Equivalents 60 Date of Last UDS SOAPP-R Score Behavior Risks none Physical Risks none H/o Illegal Substance Abuse denies H/o Alcohol abuse denies OPIATE RISK ASSESSMENT: LOW (Routine medication monitoring, Annual UDS) Assessment is based treating physicians overall evaluation of multiple factors including MME load, age, comorbidity, medication profile, and social risk factors. The risks/benefits of chronic opiate therapy was discussed with patient including failure of therapy, psychological addiction, physiological dependence, and risk withdrawal syndrome. Warning symptoms of potential opiate overuse/overdose were discussed including sedation, somnolence, and altered mentation were reviewed and I counseled patient these symptoms can occur even when patient have been on a stable dose and also can happen despite following physicians instructions. Alternative therapies were discussed including: non-opiate medications, interventional pain procedures, and Cognitive Behavioral Therapy. After discussing these alternatives with the patient, the patient has opted to decline these alternatives at this time. Patient has tried and failed more conservative measures and were either ineffective or intolerant. In my medical opinion non-opiate therapy is not appropriate to address the patient's medical condition at this time and will continue chronic opiate therapy after having addressed efficacy, adverse side effects, and safety of therapy with the patient. The patient indicates understanding of these issues and agrees with the plan. LIFESTYLE COUNSELING: Time was spent discussing the importance of a home exercise program to promote strength, activity endurance and pain tolerance. Patient was also counseled on avoidance of tobacco products for general health as well as improved chronic pain control. ASSESSMENT AND PLAN Problem List Items Addressed This Visit Cervical radiculopathy Relevant Medications oxyCODONE-acetaminophen (Percocet) 10-325 mg tablet tiZANidine (ZANAFLEX) 4 MG tablet Failed back syndrome Relevant Medications tiZANidine (ZANAFLEX) 4 MG tablet Lumbar spondylosis - Primary Relevant Medications oxyCODONE-acetaminophen (Percocet) 10-325 mg tablet tiZANidine (ZANAFLEX) 4 MG tablet Osteoarthritis of knee Relevant Medications oxyCODONE-acetaminophen (Percocet) 10-325 mg tablet PLAN: 1. Patient is stable functional and meeting the goals of chronic opiate therapy without adverse side effects, misuse, or safety concerns. PDMP was reviewed without redflags or other concerns. 2. Repeat LOUISE with excellent response noting 50% relief. 3. I will continue her percocet to 10/325 qid and f/u in 4weeks The patient indicates understanding of these issues and agrees with the plan. I reviewed the patient's medical information and medical history. I have reviewed the past medical, family, and social history sections including the medications and allergies listed in the above medical record. Patient was counseled that in my practice I do not prescribe chronic opiate therapy in the presence of ongoing illegal substance use. Patient was also counseled that drug screen testing is medically necessary from time to time to help stratify risks associated with chronic opiate therapy by assessing compliance with prescribed medications as well as to identify the presence of illegal substances. Consent for drug screen testing is required for continuation of chronic opiate therapy. CARDENASISAÍAS GLORIA 2023-06-13 08:45:00 PatientIbis s consent to Mike Ann Jr., MD's use of Augmedix at today's visit. OLIVIA CHI 2023-06-13 08:45:00 Medicare Subsequent Wellness Visit (Third or Visit) CPT Code is G0439 Billing Advice includes: Update Medical/Family history Measurement of height, weight, BMI, BP and complete exam including pap/breast and prostate if appropriate Screening for Cognitive disorder, depression, ADL, and Falls Update health risk factors Update HM list Provide a written list of risk factors and screening tests to patient in the patient instructions Advance Directive Planning if appropriate Chief Complaint: Chief Complaint Patient presents with - Annual Exam - URI Still not feeling the best. Thinking she has URI again. - Sore Throat - Thrush PT is wondering if she has thrush from her inhalers. HPI: Ibis Tay is a 68 y.o. female who is here for her Medicare Annual Wellness physical exam. She describes her current health as poor, her health will be excellent if symptoms on her mouth is getting better. She is currently retired. Her diet is described as good, she is doing 2 cans of ensure daily. Her exercise level is poor, she is trying to do limited exercise. She is not sexually active. and no any significant other. Her immunizations have been reviewed. Her age appropriate risk factors for cardiovascular disease, sexual risk, lifestyle risk have been reviewed and addressed. Other issues that she wishes to have addressed today include: as below. The patient had upper respiratory infection in the past. She was in the ER on 05/22/2023 for cough, congestion, fever and some shortness of breath. She was given an antibiotic and reported that it helped some but her symptoms soon returned when she stopped taking the medication. She was also seen by Dr. German on 06/02/2023 and was given prednisone and doxycycline. The patient is concerned about sore throat. Her symptoms have ongoing since May 17. She is feeling burning in her throat. She notes pain in her throat. She has thrush in her thoat. Her associated symptoms include cough, rhinorrhea. She reports that her cough is productive with green and yellow sputum. She does have a history of COPD for which she uses Symbicort and nebulizer. She does report nebulizers helped some with her symptoms. She has had a portion of her lung removed due to lung cancer in the past as well. She is smoking about 1.5 pack aday. She reports that her mouth is dry. The patient has a history of essential hypertension. Since her last visit, she states she is doing well. Patient's current medications include: hydrochlorothiazide 25 mg 0.5 tablet once daily with benefit, reports no side effects, lisinopril 5 mg QD with benefit, reports no side effects, and prazosin 2 mg 3 capsules every evening with benefit, reports no side effects. Her blood pressure today is 110/62. She is trying to follow a low-salt diet. She denies headaches, chest pain, shortness of breath, or lower extremity swelling at present. BP Readings from Last 3 Encounters: 06/13/23 110/62 06/07/23 (!) 169/78 06/02/23 100/56 The patient is due for colon cancer screening. She requests for a cologuard today. She has bowel movements in every 2- 3 days in a week. The patient has a history of anxiety for which the patient takes Alprazolam 0.5 mg once nightly as needed for sleep. She said that her symptoms are getting worse. Today, she is much anxious. She notes sometimes she takes more than 1 tablets because not able to control her symptoms. The patient has a history of age related osteoporosis. Since her last visit, she reports she is doing well. Patient's current medications include: calcium-vitamin D 500 mg BID with benefit, reports no side effects. She was taking Boniva 150 mg every 30 days with benefit, reports no side effects. She is postmenopausal. She is due for DEXA scan. Her last DEXA scan was on 01/17/2017 which showed osteopenia within the right hip. Normal bone mineral density within the lumbar spine and distal right forearm. The patient has a history of GERD. Since her last visit, she reports she is doing well. Patient's current medications include: omeprazole 40 mg QD with benefit, reports no side effects. The patient is due for mammogram. She denies any lumps or bumps. Her last mammogram was on 12/31/2020 which showed no mammographic findings of malignancy. The patient is due for Pneumovax today. She interested in a shot today. She is feeling anxious. Patient denies any depression. Patient denies any dementia. Patient denies any recent falls in last 6 months. Patient bowel movements are normal. Patient denies any hematochezia or melena. Patient denies any urinary tract infection symptoms. Patient denies any fever or chills. She was screened for falls risk, depression, functional ability and cognitive impairment within the past year. The results and plan are detailed below. ROS: Review of Systems General : No weight gain or loss, no loss of appetite, no fever, no chills, no fatigue, no night sweats Skin And lymphatics: No rashes, no skin discolorations, no easy bruising, no lymphadenopathy Head: No headaches, no dizziness, no masses, no seizures Eyes: No visual changes no eye pain Ears: No tinnitus, no vertigo, no hearing loss Nose: Positive for rhinorrhea. no sinus disease Mouth and throat: Positive for thrush. Denies dental disease, no hoarseness. Respiratory: Positive for cough, sputum production. no shortness of breath. Cardiovascular: No chest pain, no orthopnea, no paroxysmal nocturnal dyspnea, or dyspnea on exertion, no claudication, no edema, no valvular disease Gastrointestinal: No dysphagia, no abdominal pain, no nausea, no vomiting, no hematemesis, no diarrhea, no constipation, no melena, no hematochezia Genitourinary: No dysuria, no frequency, no hesitancy, no hematuria no discharge Endocrine: No polyuria, no polydipsia, no skin or hair changes, no heat intolerance Musculoskeletal: No joint pain or swelling, no arthritis, no myalgias Neuropsychiatric: No weakness no seizures, no memory changes, no depression Neurologic: No unilateral or bilateral numbness tingling or weakness, no difficulty with speech, no vision changes, no problems with balance, denies dizziness, denies headache Allergies and Medications: Chronic Problem List: Patient Active Problem List Diagnosis Date Noted - Insomnia due to other mental disorder 05/18/2022 - PTSD (post-traumatic stress disorder) 05/18/2022 - Panic disorder 02/23/2022 - Iliac artery occlusion, bilateral (HCC) 08/03/2021 - Lumbar spondylosis 11/27/2020 - Cervical radiculopathy 11/27/2020 - Stricture of artery ([facility]) 10/24/2020 - Vascular disease, peripheral ([facility]) 09/16/2020 - Secondary malignant neoplasm of other specified sites ([facility]) 09/16/2020 - Compression fracture of body of thoracic vertebra ([facility]) 05/21/2018 - Non-small cell lung cancer ([facility]) 05/21/2018 - Right hand pain - Urinary tract infection without hematuria 11/18/2017 - Fall at home, sequela 11/18/2017 - Acute cystitis without hematuria 11/02/2017 - Malignant neoplasm of upper lobe, left bronchus or lung ([facility]) 10/11/2017 - Lung cancer ([facility]) 08/30/2017 - Mediastinal lymphadenopathy 08/30/2017 - Adenocarcinoma of lung, left ([facility]) - Other chest pain 07/06/2017 - Pulmonary nodule 07/06/2017 - Severe sepsis ([facility]) - Pneumonia of left lower lobe due to infectious organism 07/01/2017 - Community acquired pneumonia 06/03/2017 - COPD exacerbation ([facility]) 06/03/2017 - Hypoxia 06/03/2017 - Dyslipidemia 04/15/2017 - Vitamin D deficiency 02/08/2017 - Anxiety state 01/30/2015 - Pain in joint, lower leg 01/30/2015 - Routine general medical examination at a health care facility 01/30/2015 - Osteoarthritis of knee 01/30/2015 - S/P total knee arthroplasty 01/07/2015 - S/P hip hemiarthroplasty- Left 01/07/2015 - Mild episode of recurrent major depressive disorder ([facility]) 11/19/2014 - Hip fracture, left ([facility]) 09/26/2014 - Knee osteoarthritis 05/28/2014 - Knee joint replacement status 05/28/2014 - Trochanteric bursitis 05/24/2014 - History of total knee arthroplasty 04/02/2014 - Knee pain 04/02/2014 - Screening 03/05/2014 - Cervical spondylosis with myelopathy 07/02/2013 - Spinal stenosis 10/10/2012 - Anxiety 04/03/2012 - Cervical disc disease 04/03/2012 - Cervical radiculopathy 04/03/2012 - Hypercholesteremia 02/15/2011 - Hyperlipidemia 02/15/2011 - Generalized anxiety disorder 02/15/2011 - Smoker 02/15/2011 - Essential hypertension 02/15/2011 - Acute bronchitis 02/15/2011 - AR (allergic rhinitis) 02/15/2011 - GERD (gastroesophageal reflux disease) 02/15/2011 - Osteoarthritis of right knee 02/15/2011 - Arthritis 02/15/2011 - DDD (degenerative disc disease) 02/15/2011 - Failed back syndrome 02/15/2011 Immunization History: Immunization History Administered Date(s) Administered - (Shingrix, Recombinant, Adjuvanted) Zoster Vaccine IM 03/19/2020 - COVID-19 2022-24 [email or web address] (COMIRNATY) 12 YRS + ([id number]) 04/22/2023 - COVID-19 VACCINE MRNA (MODERNA/BIVALENT)([employer] W/GARCIA)([id number]) 12/18/2022 - COVID-19 mRNA (PF)(LNP-S BIVALENT) (Garcia Cap) 12YR+ ([email or web address])([id number]) 05/19/2022 - Covid-19 Vaccine MRNA (PF) 12yr+ ([employer])([id number]) 09/06/2020, 09/27/2020, 04/23/2021 - Covid-19 Vaccine MRNA(PF, Premixed) 12yr+ ([email or web address])([id number]) 10/17/2021 - Influenza Four-QIV 6MO+ PF IM ([id number]) 03/24/2017 - Influenza [id number], Pf 05/29/2009 - Influenza High Dose Preservative Free 04/05/2019 - Influenza High Dose Preservative Free IM ([id number]) 04/05/2019, 04/23/2021, 03/23/2022, 03/03/2023 - Influenza TIV (IM) 03/24/2010, 05/01/2012 - Influenza Three-TIV Non-Preservative Free 3+ Years IM 04/17/2014 - Influenza Three-tiv Non-preservative Free Gn 04/17/2013 - Pneumococcal Conjugate (Prevnar) 13-Valent 06/15/2016 - Pneumococcal Conjugate Vaccine (20-Valent) IM 03/12/2022, 12/18/2022 - Pneumococcal Polysaccharide (Pneumovax) 03/18/2009, 04/18/2014 - RESPIRATORY SYNCYTIAL VIRUS (RSV) VACCINE (ABRYSVO-PFIZER)([id number]) 03/03/2023 - Shingrix/Zoster 03/19/2020 - Td 7+ years, (TDVAX) 2 Lf tetanus toxoid preservative free 01/29/2013 - Tdap 04/15/2009, 12/29/2016 Past Medical/Surgical History: Past Medical History: Diagnosis Date - Anxiety Takes Xanax - Arthritis - Breast mass 2013 rt axilla - Bronchitis - Bursitis Left hip - Cancer (HCC) left lung cancer, scheduled for left upper lobectomy at [facility] with Dr. Moore - Cervical radiculopathy sees Dr. Cardenas, gets cervical pain injections every 3 months, last done in - COPD (chronic obstructive pulmonary disease) ([facility]) - DDD (degenerative disc disease) - Depression dr. lemos-psychiarist - Dermatological disorder 01/2011 irratative dermatitis from insect b ite - Esophageal stricture dilated during upper endoscopy - Generalized anxiety disorder - GERD (gastroesophageal reflux disease) - H. pylori infection Hx of H pylori infection several months ago treated with medication, no current issues. - H/O pyloric stenosis - Hematuria 01/14/2023 ct abd/pelvis negative for [facility] - Hiatal hernia - HTN (hypertension) - Hypercholesteremia - Hyperlipidemia No current medications or issues. - OA (osteoarthritis) of knee - Oxygen desaturation at night 3.5 liter - Palpitations with anxiety - Peripheral vascular disease ([facility]) 10/2020 abdominal pain-stricture liliac artery - Peripheral vascular disease ([facility]) 11/30/2022 Abnormal resting ankle brachial indices, waveform analysis and arterial duplex imaging of the right and left - Pneumonia 1994 resolved. - PONV (postoperative nausea and vomiting) - PTSD (post-traumatic stress disorder) son was murdered 8 years ago, followed by Dr. Milly Freire - Spinal stenosis cervical - Urinary incontinence - Wears dentures full set - Wears glasses Past Surgical History: Procedure Laterality Date - ABDOMINAL HERNIA REPAIR 07/2022 robotic assisted/laparoscopic femoral/inguinal hernia repair with mesh - ESOPHAGEAL DILATION 2012 approx. done with upper endoscopy - Femoral inguinal hernia repair 08/09/2022 robotic assisted/laparoscopic femoral/inguinal hernia repair with mesh per dr roland - KNEE ARTHROPLASTY Right 2010 - LUMBAR FUSION 1995 - LUNG LOBECTOMY Left 10/11/2017 Upper - CO INTRODUCTION CATHETER AORTA Right 11/03/2020 Procedure: ABDOMINAL AORTOGRAM; Surgeon: Imelda Swan MD; Location: [facility]; Service: Vascular - CO TOTAL KNEE ARTHROPLASTY Right 05/28/2014 Procedure: REPLACEMENT TOTAL JOINT KNEE RIGHT / BETO ; Surgeon: Isaak Moncada MD; Location: [facility]; Service: Orthopedics - SPINE SURGERY lumbar fusion - TENDON RELEASE Right arm - TOTAL HIP ARTHROPLASTY Left 09/26/14 hip hem-iarthoplasty - TOTAL KNEE ARTHROPLASTY Left 11/23 - TUBAL LIGATION Bilateral - UPPER GASTROINTESTINAL ENDOSCOPY 2012 approx. diagnosed with H. Pylori and esophagus dilated. - UPPER GASTROINTESTINAL ENDOSCOPY Family History: Family History Problem Relation Age of Onset - Other Other Hx: Yes Dx: Diabetes Fam Mem: Family h/o - Drug abuse Other - Other Other Hx: Yes Dx: Hypertension Fam Mem: Mother - Drug abuse Other - Hypertension Mother - Heart disease Mother - Diabetes Mother - No Known Problem Father - Other Sister - Cancer Sister - Other Other Hx: Yes Dx: Heart disease Fam Mem: Mother - Diabetes Maternal Grandmother Extended Social History: Social History Socioeconomic History - Marital status: Spouse name: Not on file - Number of children: Not on file - Years of education: 14 - Highest education level: Not on file Occupational History - Not on file Tobacco Use - Smoking status: Every Day Current packs/day: 2.00 Average packs/day: 2.0 packs/day for 44.0 years (88.0 ttl pk-yrs) Types: Cigarettes, Vaporizer - Smokeless tobacco: Never - Tobacco comments: does not completly smoke a cigarette Vaping Use - Vaping Use: Never used Substance and Sexual Activity - Alcohol use: Yes - Drug use: No - Sexual activity: Not Currently Other Topics Concern - Not on file Social History Narrative - Not on file Social Determinants of Health Financial Resource Strain: Low Risk (01/27/2021) Overall Financial Resource Strain (CARDIA) - Difficulty of Paying Living Expenses: Not very hard Food Insecurity: Food Insecurity Present (01/27/2021) Hunger Vital Sign - Worried About Running Out of Food in the Last Year: Sometimes true - Ran Out of Food in the Last Year: Sometimes true Transportation Needs: Unmet Transportation Needs (01/27/2021) PRAPARE - Transportation - Lack of Transportation (Medical): Yes - Lack of Transportation (Non-Medical): Yes Physical Activity: Not on file Stress: Not on file Social Connections: Not on file Intimate Partner Violence: Not on file Housing Stability: Not on file Education and Employment Education Level: Some College or Technical School Employment: Unemployed Experience: No Living Conditions Marital Status: Children: Yes Comments: 1 son and 1 daughter Grandchildren: Yes Occupants In Home: Lives alone Home Type: Other Comments: Mobile home Pets/Animal Exposure: Yes Safety Domestic Violence: No Feel Safe In Home and With Partner?: Yes Seat Belts: Yes Access to Firearms: No Smoke Detectors: Yes Radon Detectors: No Carbon Monoxide Detectors: Yes Tattoos: No Patient Devices Glasses: Yes Contacts: No Hearing Aids: No Dentures: Yes Lifestyle Baptist Affiliation: Yazidi Spirituality: yes Exercise: Other Diet: Other Care Team: Patient Care Team: Mike Ann Jr., MD as PCP - General Nu Ross RN as Oncology Nurse Navigator Vero Edwards MD (Inactive) as Physician (Psychiatry) Objective: No results found. BP 110/62 Pulse 65 Resp 20 Temp 36.2 C (97.2 F) (Temporal Artery (forehead)) SpO2 99% Wt 46.4 kg (102 lb 4.8 oz) Ht 154.2 cm (5' 0.71) Body mass index is 19.52 kg/m . PE: Physical Exam Nursing note and vitals reviewed. Constitutional: . patient appears well-developed and well-nourished. No distress. Head: Normocephalic and atraumatic. Right Ear: External ear normal. no erythema bright tympanic membrane bony landmarks intact Left Ear: External ear normal. No erythema bright tympanic membrane bony landmarks intact Mouth/Throat: She has diffuse redness in her throat. No perforation noted. No discharge. Nose: Her sputum intact. Her turbinates are unremarkable. Eyes: Pupils are equal, round, and reactive to light. Right eye exhibits no discharge. Left eye exhibits no discharge. No scleral icterus. Neck: No JVD present. No tracheal deviation present. No thyromegaly present. Cardiovascular: Normal rate, regular rhythm, normal heart sounds and intact distal pulses. Exam reveals no gallop and no friction rub. No murmur heard. Pulmonary/Chest: Effort normal. No respiratory distress. patient has no wheezes. patient has no rales. Patient exhibits no tenderness. Abdominal: Soft. Patient exhibits no distension and no mass. There is no tenderness to palpation. There is no rebound and no guarding. Musculoskeletal: She does have diminished pulses over her femoral arteries bilaterally, but legs are swollen at all. Normal range of motion. Patient exhibits no edema and no tenderness. Lymphadenopathy: Patient has no cervical . supraclavicular,axillary or inguinal adenopathy Neurological: patient is alert and oriented to person, place, and time. gait balance and strength intact upper and lower extremity, cranial nerves 2-12 intact Skin: She has a 6 cm x 6 cm large lipoma over her insight aspect of her right scapula. It is soft and pretty mobile. She has a well-healed scar over a lumbar spine. She has a scar on the left on her abdomen. BREASTS: no masses on palpation, nipple discharge, or axillary lymph nodes. Assessment/Plan: Problem List Items Addressed This Visit Hypercholesteremia Relevant Orders Lipid panel Essential hypertension GERD (gastroesophageal reflux disease) Anxiety Relevant Medications ALPRAZolam (Xanax) 0.5 MG tablet COPD exacerbation (HCC) Relevant Orders Ambulatory referral to Pulmonology Other Visit Diagnoses Medicare annual wellness visit, subsequent - Primary Upper respiratory tract infection, unspecified type Thrush, oral Relevant Medications nystatin (MYCOSTATIN) 100,000 unit/mL suspension Age-related osteoporosis without current pathological fracture Screening for colorectal cancer Relevant Orders DXA Bone Density Spine and Hip Cologuard Colon Screening Test Immunization due Relevant Orders Pneumococcal polysaccharide (Pneumonvax) vaccine 23-valent greater than or equal to 2yo subcutaneous/IM (Completed) Encounter for screening mammogram for malignant neoplasm of breast Relevant Orders Mammo Digital 3D Screening Bilateral Post-menopausal Relevant Orders DXA Bone Density Spine and Hip Hypokalemia Relevant Orders BASIC METABOLIC PANEL 1. Medicare annual wellness visit, subsequent Adult immunization scheduled reviewed suggested tetanus diphtheria 1 dose booster every 10 years consider single-dose pertussis update every 10 years as well,elective annual influenza vaccination , consider herpes zoster vaccination once age 60 year-old or older, suggested height weight blood pressure and BMI checks every 1-2 years, clinical breast exam every year digital rectal exam annually age 50 or greater, if previous pelvic exam and Pap smear normal then consider repeat every 3-5 year, discussed screening mammogram every 1-2 years, nutritional assessment and weight l yearly discussed injury prevention with seat belts and helmet use ,discussed smoking cessation as appropriate, safe sex counseling and encouraged regular aerobic exercise 30 minutes 5 times weekly. Encourage healthy, balanced diet and regular physical activity. Age appropriate anticipatory guidance and recommendations given. Immunization is updated/discussed. Obtained blood work and will call with results and recommendations. Recommended to eat more fruits, vegetables, and grains. Encourage the patient to continue taking ensure daily. 2. Upper respiratory tract infection, unspecified type 3. Thrush, oral New prescription nystatin (MYCOSTATIN) 100,000 unit/mL suspension; Take 5 mL (500,000 Units total) by mouth 4 (four) times a day for 10 days. Dispense: 200 mL; Refill: 1 Call the office if the symptoms worsen or fail to improve. 4. COPD exacerbation (HCC) Ambulatory referral to Pulmonology was given. 5. Essential hypertension Continue current medication therapy. Goal blood pressure less than 140/90 . Follow low salt diet as well as Dash Diet suggestions, aerobic exercise 30 minutes 5x weekly, keep weight close to ideal. 6. Gastroesophageal reflux disease without esophagitis Continue the current medication regimen. 7. Age-related osteoporosis without current pathological fracture Ordered DXA Bone Density Spine and Hip; Future 8. Screening for colorectal cancer Ordered: - DXA Bone Density Spine and Hip; Future - Cologuard Colon Screening Test; Future - Cologuard Colon Screening Test 9. Anxiety New prescription ALPRAZolam (Xanax) 0.5 MG tablet; Take one pill up to twice daily prn anxiety and/or sleep. Next refill around jun 25 Dispense: 60 tablet; Refill: 1 10. Immunization due Administered Pneumococcal polysaccharide (Pneumonvax) vaccine 23-valent greater than or equal to 2yo subcutaneous/IM 11. Encounter for screening mammogram for malignant neoplasm of breast Ordered Mammo Digital 3D Screening Bilateral; Future 12. Post-menopausal Ordered DXA Bone Density Spine and Hip; Future 13. Hypokalemia Ordered BASIC METABOLIC PANEL We will notify the patient with the results. 14. Hypercholesteremia Ordered Lipid panel We will notify the patient with the results. Goal HDL of 50 or greater. Goal LDL less than 100 and goal of triglycerides less than 150. aerobic exercise 30 minutes 5 times weekly Screening Tools Assessment/Documentation: Falls Screen: (Positive response to any questions place patient at increased risk of falls) Fall Screening Score: negative Plan: No intervention needed-No fall risk found. Depression Screen: (PHQ9 > 10 Likely Major Depression, 5-9 = Mild depression, 10-14= Moderate depression, 15-19 Moderately severe depression, > 20 =severe depression) PHQ2 = PHQ9= Plan: no treatment needed based on clinical judgement. Functional Assessment: (Patients who need assistance or are dependent should be assessed for any home assistance needs) ADL/IADL screen: Independent Plan: No current risk or needs. CognitiveScreen: (Minicognitive >11 screening normal , MMSE >than 27 is normal (24 if only grade or middle school), 19-26 indicates mild cognitive impairment and rescreening in 6 months to one year is indicated if the index of suspicion is low. A Score of 12-19 indicates mild to moderate dementia and treatment should be initiated along with referral for further testing if indicated. Scores less than 12 indicate moderate to severe dementia and treatment should be continued or increased. Consideration for home care or SNF care should be undertaken) [place] total = MMSE total = Plan: Normal Cognition no needs identified. Advance Directives Discussion: (If patient does not have any advance directives on file, the advance directives should be printed out and given to patient as part of the visit summary) Advance Directives Booklet Advance Directives have been reviewed with Ibis Tay and/or family: Discussed advance directives with patient and Form given if needed 5-10 Year Screening Plan [place] Score =The CVD Risk score (D'Agostino, et al., 2008) failed to calculate for the following reasons: The patient has a prior ID, stroke, CHF, or peripheral vascular disease diagnosis CAD risk factors: Smoking Sexual Risk =not currently sexually active Lifestyle risk = smoking Health Maintenance Topic Date Due - Colon Cancer Screening Never done - Statin - ASCVD Risk Prevention Never done - DXA SCAN 01/17/2019 - SHINGLES VACCINES (2 of 2) 05/14/2020 - BREAST CANCER SCREENING 12/31/2021 - Tobacco Cessation and Counseling (12+) Never done - FALLS RISK SCREENING Never done - MEDICARE SUBSEQUENT WELLNESS (YEAR 3 +) 03/12/2023 - COVID-19 VACCINE (6 - Pfizer risk series) 06/17/2023 - DTAP/TDAP/TD VACCINES (4 - Td or Tdap) 12/29/2026 - Influenza Vaccine Completed - PNEUMOCOCCAL 65+ YRS Completed - HEPATITIS C SCREENING Completed - LUNG CANCER SCREENING Discontinued Goals Addressed None Attestation: The patient indicates understanding of these issues and agrees with the plan. I reviewed the patient's medical information and medical history. I have reviewed the past medical, family, and social history sections including the medications and allergies listed in the above medical record. Signature: I, Shannon Collazo, am scribing for and in the presence of Mike Ann Jr., MD. . I have read and agree with the documentation that has been completed regarding this visit and attest, that it is an accurate record of both my words and actions during the visit. . MIKE ANN JR, [facility] 2023-06-07 12:10:00 [facility] CHIEF COMPLAINT No chief complaint on file. SUBJECTIVE Ibis Tay is a 68 y.o. female who presents for follow-up of No chief complaint on file. with diagnosis of: 1. Problem List Items Addressed This Visit Cervical radiculopathy - Primary Failed back syndrome Lumbar spondylosis Osteoarthritis of knee Patient underwent LESI on 12-19-20She notes 50% improvement but continues with low back and joint pain. She notes that she has prior cervical WAQAR with >50% relief lasting 8-10mos. She feels the pain has recurred and would like to proceed with repeat cervical WAQAR She has tried OTC NSAIDs, daily home exercises/stretching she learned through PT without improvement Since patient's last encounter patient reports persistent chronic pain requiring ongoing treatment. Describes the pain as Sharp and Stabbing Patient rates their pain score 7/10 on average and is tolerable. Patient feels that the medication regimen does help maintain the function, mobility, activity tolerance and pain levels at a tolerable level. Patient states that medications changes or injections are not necessary today Patient states that the pain symptoms are stable. Patient denies new or changing pain complaints. Patient notes that the pain is worse with general activity and improved with rest. Patient 's current pain medication regimen has been reviewed with the patient and they note that the medication regimen is effective and reports that they are taking the medication regimen as prescribed. Patient denies running out of medication early or having an excess supply of medications. Other concerns: no new concerns at this time Patient's current pain medications has been reviewed and includes: DRUG FREQ Percocet qid qid Patient's most recent interventional procedures: PROCEDURE DATE % Relief & Duration Interlaminar Lumbar Epidural Steroid Injection L3 - L4 12/19/20 ROS Constitutional: denies dizziness, sedation, or somnolence Psychological: denies altered mentation or euphoria GI: denies significant constipation or diarrhea Musc: denies acute change in numbness, weakness, or tingling of extemities MEDICATIONS Current Outpatient Medications Medication Sig Dispense Refill - albuterol sulfate hfa 90 mcg/actuation aerosol inhaler INHALE TWO PUFFS BY MOUTH FOUR TIMES A DAY 8.5 g 11 - ALPRAZolam (Xanax) 0.5 MG tablet Take 1 tablet (0.5 mg total) by mouth once nightly as needed for sleep. Max Daily Amount: 0.5 mg 60 tablet 1 - budesonide-formoteroL (SYMBICORT) 160-4.5 mcg/actuation inhaler Inhale 2 puffs into the lungs 2 (two) times a day. 1 each 11 - calcium-vitamin D 500 mg(1,250mg) -200 unit per tablet Take 1 tablet by mouth 2 (two) times a day with meals. 180 tablet 2 - cetirizine (ZyrTEC) 10 MG tablet TAKE ONE TABLET BY MOUTH DAILY 30 tablet 11 - cholecalciferol (VITAMIN D3) 125 mcg (5,000 unit) capsule Take 1 capsule (5,000 Units total) by mouth once daily. 100 capsule 3 - doxycycline (VIBRA-TABS) 100 MG tablet Take 1 tablet (100 mg total) by mouth 2 (two) times a day for 5 days. 10 tablet 0 - food supplemt, lactose-reduced (Ensure) Liquid Drink 2 bottles per day. Patient requests strawberry. [id number] mL 3 - hydroCHLOROthiazide (HYDRODIURIL) 25 MG tablet TAKE 1/2 TABLET BY MOUTH DAILY 45 tablet 1 - ibandronate (Boniva) 150 mg tablet Take 1 tablet (150 mg total) by mouth every 30 (thirty) days. Take sitting upright once mobnthly on empty stomach with glass of water , dont lay down or eat for full hour (Patient not taking: Reported on 04/25/2023) 3 tablet 4 - ipratropium-albuteroL (DUO-NEB) 0.5-2.5 mg/3 mL nebulizer INHALE 1 VIAL VIA NEBULIZATION BY MOUTH FOUR TIMES A DAY 360 mL 1 - lisinopriL (PRINIVIL,ZESTRIL) 5 MG tablet TAKE ONE TABLET BY MOUTH DAILY 90 tablet 1 - misc[place] [facility] [place]ence pads, 2 per day 100 each 6 - miscellaneous medical [place] [facility] [place] nebulizer machine for use for breathing problems for duo-nebs treatments 1 each 0 - miscellaneous medical [place] [facility] [place] mask, tubing and filter for nebulizer machine to be changed every 3 months. 1 each 3 - naloxone 2 mg/actuation [place], Non-Aerosol 2 mg by Nasal route as needed. 1-2 daily PRN. Proceed to ER for evaluation immediately following use. (Patient not taking: Reported on 06/02/2023) 4 each 1 - omeprazole (PriLOSEC) 40 MG capsule Take 1 capsule (40 mg total) by mouth once daily. 30 capsule 7 - ondansetron (Zofran ODT) [address] 1-2 tablets (4-8 mg total) under the tongue every 8 (eight) hours as needed for nausea / vomiting. 30 tablet 5 - oxyCODONE-acetaminophen (Percocet) 10-325 mg tablet Take 1 tablet by mouth every 6 (six) hours as needed for pain. To Last 30days. No early refills Max Daily Amount: 4 tablets 120 tablet 0 - oxyCODONE-acetaminophen (Percocet) 10-325 mg tablet Take 1 tablet by mouth every 6 (six) hours as needed for pain. To Last 30days. No early refills Max Daily Amount: 4 tablets 120 tablet 0 - prazosin (MINIPRESS) 2 MG capsule TAKE THREE CAPSULES BY MOUTH EVERY EVENING 270 capsule 1 - predniSONE (DELTASONE) 20 MG tablet Take 2 tablets (40 mg total) by mouth once daily for 5 days. 10 tablet 0 - tiZANidine (ZANAFLEX) 4 MG tablet Take 1 tablet (4 mg total) by mouth 2 (two) times a day. 60 tablet 3 - topiramate (Topamax) 25 MG tablet Take 2 tablet in the a.m. and 1 tablet in pm 90 tablet 11 Current Facility-Administered Medications Medication Dose Route Frequency Provider Last Rate Last Admin - pneumococcal 20-valent vaccine (PREVNAR 20) syringe 0.5 mL IntraMuscular Once Mike Ann Jr., MD ALLERGIES Allergies Allergen Reactions - Penicillins Anaphylaxis - Gabapentin Other (See Comments) severe fatigue - Sulfa (Sulfonamide Antibiotics) Other (See Comments) Blisters inside and outside of mouth. - Wellbutrin [Bupropion Hcl] Other (See Comments) Body numbness and tingling - Bee Pollens Yellow jackets, Wasps - Diazepam Nausea And Vomiting - Varenicline Other reaction(s): Not available PHYSICAL EXAM Vital Signs: There were no vitals taken for this visit. Constitutional: Well nourished, well groomed, NAD. CARDIAC: Regular Rate LUNGS: Breathing nonlabored, no wheezing Neurologic: Alert & oriented x 3, normal gait, no focal deficits noted. Psychiatric: Affect normal, judgment normal, mood normal. Other Affected BA/OS: Chronic Opiate Therapy Risk Mitigation: Risk Assessment Evaluation Assessment Morphine Equivalents 60 Date of Last UDS SOAPP-R Score Behavior Risks none Physical Risks none H/o Illegal Substance Abuse denies H/o Alcohol abuse denies OPIATE RISK ASSESSMENT: LOW (Routine medication monitoring, Annual UDS) Assessment is based treating physicians overall evaluation of multiple factors including MME load, age, comorbidity, medication profile, and social risk factors. The risks/benefits of chronic opiate therapy was discussed with patient including failure of therapy, psychological addiction, physiological dependence, and risk withdrawal syndrome. Warning symptoms of potential opiate overuse/overdose were discussed including sedation, somnolence, and altered mentation were reviewed and I counseled patient these symptoms can occur even when patient have been on a stable dose and also can happen despite following physicians instructions. Alternative therapies were discussed including: non-opiate medications, interventional pain procedures, and Cognitive Behavioral Therapy. After discussing these alternatives with the patient, the patient has opted to decline these alternatives at this time. Patient has tried and failed more conservative measures and were either ineffective or intolerant. In my medical opinion non-opiate therapy is not appropriate to address the patient's medical condition at this time and will continue chronic opiate therapy after having addressed efficacy, adverse side effects, and safety of therapy with the patient. The patient indicates understanding of these issues and agrees with the plan. LIFESTYLE COUNSELING: Time was spent discussing the importance of a home exercise program to promote strength, activity endurance and pain tolerance. Patient was also counseled on avoidance of tobacco products for general health as well as improved chronic pain control. ASSESSMENT AND PLAN Problem List Items Addressed This Visit Cervical radiculopathy - Primary Failed back syndrome Lumbar spondylosis Osteoarthritis of knee PLAN: 1. Patient is stable functional and meeting the goals of chronic opiate therapy without adverse side effects, misuse, or safety concerns. PDMP was reviewed without redflags or other concerns. 2. Repeat LOUISE with excellent response noting 50% relief. 3. I will continue her percocet to 10/325 qid and f/u in 4weeks The patient indicates understanding of these issues and agrees with the plan. I reviewed the patient's medical information and medical history. I have reviewed the past medical, family, and social history sections including the medications and allergies listed in the above medical record. Patient was counseled that in my practice I do not prescribe chronic opiate therapy in the presence of ongoing illegal substance use. Patient was also counseled that drug screen testing is medically necessary from time to time to help stratify risks associated with chronic opiate therapy by assessing compliance with prescribed medications as well as to identify the presence of illegal substances. Consent for drug screen testing is required for continuation of chronic opiate therapy. ISAÍAS CARDENAS [facility] 2023-06-02 09:30:00 Subjective: Patient ID: Ibis Tay is a 68 y.o. female. Chief Complaint Patient presents with - Follow-up F/u from 05/22/23 pt stated she was presents to the emergency department with complaint of cough and congestion. Pt stated she is still having cough, fever, meds didn't help, not feeling better. HPI Ibis Tay comes in to clinic today follow-up from recent ER visit. She was in the ER on 05/22 for cough, congestion, fever and some shortness of breath. She was given an antibiotic and reported that it helped some but her symptoms soon returned when she stopped taking the medication. She has been using Tylenol to help with fevers. She continues though to have a cough and chest congestion. She does have a history of COPD for which she uses Symbicort and nebulizer. She does report nebulizers helped some with her symptoms. She has had a portion of her lung removed due to lung cancer in the past as well. She reports that her cough is productive with green and yellow sputum. This has been going on for the duration. She also reports losing weight. This has been more of a chronic issue for her though. ROS was negative except for what is noted in HPI above. Objective: BP 100/56 Pulse 97 Temp 36.4 C (97.5 F) (Temporal Artery (forehead)) Ht 154.2 cm (5' 0.71) Wt 46.7 kg (103 lb) SpO2 98% BMI 19.65 kg/m Physical Exam Cardiovascular: Rate and Rhythm: Normal rate and regular rhythm. Pulses: Normal pulses. Heart sounds: No murmur heard. Pulmonary: Effort: Pulmonary effort is normal. Prolonged expiration present. No respiratory distress. Breath sounds: Examination of the right-middle field reveals rhonchi. Examination of the right-lower field reveals rhonchi. Rhonchi present. No wheezing. Skin: General: Skin is warm and dry. Neurological: Mental Status: She is alert. Assessment/Plan: Ibis was seen today for follow-up. Diagnoses and all orders for this visit: COPD exacerbation (HCC) - Increase sputum production as well as some shortness of breath. We will treat this as a COPD exacerbation with 5 days worth of 40 mg prednisone and 5 days of doxycycline 100 mg twice daily. She has an appointment with her PCP in about 10 days. Hopefully by that time she will be feeling better. If not can consider further work-up with repeat chest imaging. - predniSONE (DELTASONE) 20 MG tablet; Take 2 tablets (40 mg total) by mouth once daily for 5 days. - doxycycline (VIBRA-TABS) 100 MG tablet; Take 1 tablet (100 mg total) by mouth 2 (two) times a day for 5 days. . NEFTALI GERMAN [facility] 2023-05-24 09:25:00 Emergency Department Discharge Care Coordination Note: Type of Encounter: First Attempt: Unsuccessful attempt to reach patient by phone re: ER Discharge follow-up. Call was answered, then declined or disconnected. Hospital Discharge Details: Recent admit date - 05/22/23 Discharge date - 05/22/23 Discharge Dx - COPD exacerbation Discharge Disposition - Home or Self Care All Future [facility] Appointments: (Scheduled as of the time this note was created) Future Appointments Date Time Provider Department Center 06/07/2023 12:10 PM [facility] 06/13/2023 9:00 AM Mike Ann Jr., MD [id number] [facility] 09/05/2023 11:00 AM [facility] RM 1 -16 SLICE IMCCT LASHAUN Valdivia [facility] 2023-05-22 16:28:31 [facility] EMERGENCY DEPARTMENT ENCOUNTER Pt Name: Ibis Tay Birthdate 1955 Date of evaluation: 05/22/2023 Provider: Jasmin Ziegler MD CHIEF COMPLAINT Chief Complaint Patient presents with - Nasal Congestion Pt states she has had nasal congestion and headache since 05/19. HISTORY OF PRESENT ILLNESS (Location/Symptom, Timing/Onset, Context/Setting, Quality, Duration, Modifying Factors, Severity.) Ibis Tay is a 68 y.o. female who presents to the emergency department with complaint of cough and congestion. Said for the past 3 days she has had symptoms. She had been visiting out of town and he is around a lot of people. She thinks maybe she could have contracted something. She denies any fevers but has had increasing cough. She does have underlying history of COPD and previous history of lung cancer. She continues to smoke daily. She does not have any productive sputum but has had a runny nose. Nursing Notes were reviewed. REVIEW OF SYSTEMS (2-9 systems for level 4, 10 or more for level 5) Review of Systems HENT: Positive for congestion. Respiratory: Positive for cough and wheezing. All other systems reviewed and are negative. Except as noted above the remainder of the review of systems was reviewed and negative. PAST MEDICAL HISTORY Past Medical History: Diagnosis Date - Anxiety Takes Xanax - Arthritis - Breast mass 2013 rt axilla - Bronchitis - Bursitis Left hip - Cancer (HCC) left lung cancer, scheduled for left upper lobectomy at [facility] with Dr. Moore - Cervical radiculopathy sees Dr. Cardenas, gets cervical pain injections every 3 months, last done in - COPD (chronic obstructive pulmonary disease) ([facility]) - DDD (degenerative disc disease) - Depression dr. lemos-psychiarist - Dermatological disorder 01/2011 irratative dermatitis from insect b ite - Esophageal stricture dilated during upper endoscopy - Generalized anxiety disorder - GERD (gastroesophageal reflux disease) - H. pylori infection Hx of H pylori infection several months ago treated with medication, no current issues. - H/O pyloric stenosis - Hematuria 01/14/2023 ct abd/pelvis negative for [facility] - Hiatal hernia - HTN (hypertension) - Hypercholesteremia - Hyperlipidemia No current medications or issues. - OA (osteoarthritis) of knee - Oxygen desaturation at night 3.5 liter - Palpitations with anxiety - Peripheral vascular disease (HCC) 10/2020 abdominal pain-stricture liliac artery - Peripheral vascular disease (HCC) 11/30/2022 Abnormal resting ankle brachial indices, waveform analysis and arterial duplex imaging of the right and left - Pneumonia 1994 resolved. - PONV (postoperative nausea and vomiting) - PTSD (post-traumatic stress disorder) son was murdered 8 years ago, followed by Dr. Milly Freire - Spinal stenosis cervical - Urinary incontinence - Wears dentures full set - Wears glasses SURGICAL HISTORY Past Surgical History: Procedure Laterality Date - ABDOMINAL HERNIA REPAIR 07/2022 robotic assisted/laparoscopic femoral/inguinal hernia repair with mesh - ESOPHAGEAL DILATION 2012 approx. done with upper endoscopy - Femoral inguinal hernia repair 08/09/2022 robotic assisted/laparoscopic femoral/inguinal hernia repair with mesh per dr roland - KNEE ARTHROPLASTY Right 2010 - LUMBAR FUSION 1995 - LUNG LOBECTOMY Left 10/11/2017 Upper - CO INTRODUCTION CATHETER AORTA Right 11/03/2020 Procedure: ABDOMINAL AORTOGRAM; Surgeon: Imelda Swan MD; Location: [facility]; Service: Vascular - CO TOTAL KNEE ARTHROPLASTY Right 05/28/2014 Procedure: REPLACEMENT TOTAL JOINT KNEE RIGHT / BEOT ; Surgeon: Isaak Moncada MD; Location: [facility] OR; Service: Orthopedics - SPINE SURGERY lumbar fusion - TENDON RELEASE Right arm - TOTAL HIP ARTHROPLASTY Left 09/26/14 hip hem-iarthoplasty - TOTAL KNEE ARTHROPLASTY Left 11/23 - TUBAL LIGATION Bilateral - UPPER GASTROINTESTINAL ENDOSCOPY 2012 approx. diagnosed with H. Pylori and esophagus dilated. - UPPER GASTROINTESTINAL ENDOSCOPY CURRENT MEDICATIONS Current Facility-Administered Medications on File Prior to Encounter Medication Dose Route Frequency Provider Last Rate Last Admin - pneumococcal 20-valent vaccine (PREVNAR 20) syringe 0.5 mL IntraMuscular Once Mike Ann Jr., MD Current Outpatient Medications on File Prior to Encounter Medication Sig Dispense Refill - albuterol sulfate hfa 90 mcg/actuation aerosol inhaler INHALE TWO PUFFS BY MOUTH FOUR TIMES A DAY 8.5 g 11 - ALPRAZolam (Xanax) 0.5 MG tablet Take 1 tablet (0.5 mg total) by mouth once nightly as needed for sleep. Max Daily Amount: 0.5 mg 60 tablet 1 - budesonide-formoteroL (SYMBICORT) 160-4.5 mcg/actuation inhaler Inhale 2 puffs into the lungs 2 (two) times a day. 1 each 11 - calcium-vitamin D 500 mg(1,250mg) -200 unit per tablet Take 1 tablet by mouth 2 (two) times a day with meals. 180 tablet 2 - cetirizine (ZyrTEC) 10 MG tablet TAKE ONE TABLET BY MOUTH DAILY 30 tablet 11 - cholecalciferol (VITAMIN D3) 125 mcg (5,000 unit) capsule Take 1 capsule (5,000 Units total) by mouth once daily. 100 capsule 3 - diaper,brief,adult,disposable Misc 1 application by Miscellaneous route 2 (two) times a day. 96 each 5 - fluticasone propionate (Flovent Diskus) 250 mcg/actuation Disk with Device Inhale 1 puff into the lungs 2 (two) times a day. 60 each 3 - food supplemt, lactose-reduced (Ensure) Liquid Drink 2 bottles per day. Patient requests strawberry. [id number] mL 3 - hydroCHLOROthiazide (HYDRODIURIL) 25 MG tablet TAKE 1/2 TABLET BY MOUTH DAILY 45 tablet 1 - hydrOXYzine (ATARAX) 50 MG tablet Take 1 tablet (50 mg total) by mouth once nightly as needed for anxiety. (Patient not taking: Reported on 03/29/2023) 60 tablet 1 - ibandronate (Boniva) 150 mg tablet Take 1 tablet (150 mg total) by mouth every 30 (thirty) days. Take sitting upright once mobnthly on empty stomach with glass of water , dont lay down or eat for full hour (Patient not taking: Reported on 04/25/2023) 3 tablet 4 - ipratropium-albuteroL (DUO-NEB) 0.5-2.5 mg/3 mL nebulizer INHALE 1 VIAL VIA NEBULIZATION BY MOUTH FOUR TIMES A DAY 360 mL 1 - lisinopriL (PRINIVIL,ZESTRIL) 5 MG tablet TAKE ONE TABLET BY MOUTH DAILY 90 tablet 1 - methylnaltrexone (Relistor) 150 mg Tablet Take 3 tablets by mouth daily as needed. For opiate induced constipation (Patient not taking: Reported on 04/25/2023) 90 tablet 1 - [place] [facility] [place]ence pads, 2 per day 100 each 6 - miscellaneous medical supply [facility] [place] nebulizer machine for use for breathing problems for duo-nebs treatments 1 each 0 - miscellaneous medical supply [facility] [place] [place] mask, tubing and filter for nebulizer machine to be changed every 3 months. 1 each 3 - naloxone 2 mg/actuation [place], Non-Aerosol 2 mg by Nasal route as needed. 1-2 daily PRN. Proceed to ER for evaluation immediately following use. 4 each 1 - omeprazole (PriLOSEC) 40 MG capsule Take 1 capsule (40 mg total) by mouth once daily. 30 capsule 7 - ondansetron (Zofran ODT) [address] 1-2 tablets (4-8 mg total) under the tongue every 8 (eight) hours as needed for nausea / vomiting. 30 tablet 5 - oxyCODONE-acetaminophen (Percocet) 10-325 mg tablet Take 1 tablet by mouth every 6 (six) hours as needed for pain. To Last 30days. No early refills Max Daily Amount: 4 tablets 120 tablet 0 - oxyCODONE-acetaminophen (Percocet) 10-325 mg tablet Take 1 tablet by mouth every 6 (six) hours as needed for pain. To Last 30days. No early refills Max Daily Amount: 4 tablets 120 tablet 0 - potassium chloride (KLOR-CON) 10 MEQ CR tablet TAKE TWO TABLETS BY MOUTH TWICE A DAY (Patient not taking: Reported on 04/25/2023) 360 tablet 1 - prazosin (MINIPRESS) 2 MG capsule TAKE THREE CAPSULES BY MOUTH EVERY EVENING 270 capsule 1 - tiZANidine (ZANAFLEX) 4 MG tablet Take 1 tablet (4 mg total) by mouth 2 (two) times a day. 60 tablet 3 - topiramate (Topamax) 25 MG tablet Take 2 tablet in the a.m. and 1 tablet in pm 90 tablet 11 ALLERGIES Penicillins, Gabapentin, Sulfa (sulfonamide antibiotics), Wellbutrin [bupropion hcl], Bee pollens, Diazepam, and Varenicline FAMILY HISTORY Family History Problem Relation Age of Onset - Other Other Hx: Yes Dx: Diabetes Fam Mem: Family h/o - Drug abuse Other - Other Other Hx: Yes Dx: Hypertension Fam Mem: Mother - Drug abuse Other - Hypertension Mother - Heart disease Mother - Diabetes Mother - No Known Problem Father - Other Sister - Cancer Sister - Other Other Hx: Yes Dx: Heart disease Fam Mem: Mother - Diabetes Maternal Grandmother SOCIAL HISTORY reports that she has been smoking cigarettes and vaporizer. She has a 88.00 pack-year smoking history. She has never used smokeless tobacco. She reports current alcohol use. She reports that she does not use drugs. Past Medical, Family and Social History have been reviewed PHYSICAL EXAM (up to 7 for level 4, 8 or more for level 5) Vitals: 05/22/23 1700 05/22/23 1715 05/22/23 1730 05/22/23 1800 BP: 114/63 102/46 113/60 125/54 Pulse: 82 81 80 87 Resp: Temp: SpO2: 100% 100% 96% 100% Weight: Physical Exam Vitals and nursing note reviewed. Constitutional: General: She is not in acute distress. Appearance: She is well-developed. HENT: Head: Normocephalic and atraumatic. Right Ear: External ear normal. Left Ear: External ear normal. Nose: Congestion present. Eyes: General: No scleral icterus. Right eye: No discharge. Left eye: No discharge. Pupils: Pupils are equal, round, and reactive to light. Neck: Vascular: No JVD. Cardiovascular: Rate and Rhythm: Normal rate. Heart sounds: Normal heart sounds. No murmur heard. No friction rub. No gallop. Pulmonary: Effort: Pulmonary effort is normal. No respiratory distress. Breath sounds: Wheezing present. No rales. Abdominal: General: Bowel sounds are normal. There is no distension. Palpations: Abdomen is soft. Abdomen is not rigid. There is no mass. Tenderness: There is no abdominal tenderness. There is no guarding or rebound. Hernia: No hernia is present. Musculoskeletal: General: No swelling or tenderness. Normal range of motion. Cervical back: Normal range of motion and neck supple. Right lower leg: No edema. Left lower leg: No edema. Lymphadenopathy: Cervical: No cervical adenopathy. Skin: General: Skin is warm. Findings: No erythema or rash. Neurological: General: No focal deficit present. Mental Status: She is alert and oriented to person, place, and time. GCS: GCS eye subscore is 4. GCS verbal subscore is 5. GCS motor subscore is 6. Cranial Nerves: No cranial nerve deficit. Sensory: No sensory deficit. Motor: No abnormal muscle tone. Psychiatric: Speech: Speech normal. Behavior: Behavior normal. Thought Content: Thought content is not paranoid. Thought content does not include homicidal or suicidal ideation. Cognition and Memory: Memory is not impaired. Judgment: Judgment normal. Judgment is not impulsive or inappropriate. DIAGNOSTIC RESULTS RADIOLOGY: Discussed with patient if any imaging was needed and if they were ordered, then they were interpreted by the radiologist and I was able to discuss findings with the patient. Notably showing: Non-plain film images such as CT, Ultrasound and MRI are read by the radiologist. Plain radiographic images are visualized and preliminarily interpreted by the emergency physician with the below findings: Interpretation per the Radiologist below, if available at the time of this note: XR Chest 1 View Final Result Stable appearance of the chest. I, Neftali Talavera MD, have personally reviewed the images and the resident's report and agree with the interpretation. LABS: All ordered tests were independently reviewed and interpreted by myself. We had discussions regarding these results including the normal and abnormal results. Notably showing: ED Lab Results Procedure Component Value Ref Range Date/Time Resp Panel 4-plex [[id number]] Collected: 05/22/23 1657 Order Status: Completed Specimen: Nasopharyngeal Swab Updated: 05/22/23 1820 Influenza A by PCR NEGATIVE NEGATIVE Influenza B by PCR NEGATIVE Respiratory Syncytial Virus by PCR NEGATIVE NEGATIVE COVID-19 QUAL PCR NEGATIVE NEGATIVE All other labs were within normal range or not returned as of this dictation. EMERGENCY DEPARTMENT COURSE and DIFFERENTIAL DIAGNOSIS / MDM: Vitals: ) Vitals: 05/22/23 1700 05/22/23 1715 05/22/23 1730 05/22/23 1800 BP: 114/63 102/46 113/60 125/54 Pulse: 82 81 80 87 Resp: Temp: SpO2: 100% 100% 96% 100% Weight: MDM Shared Decision Making I discussed with the patient and, if available, the patient's family the findings of the patient's examination and test results in the emergency department. The risk and benefits of different treatment options were discussed and the patient and their family were allowed an opportunity to ask questions. We involved the patient and their family in the decision-making process and in the ultimate treatment and disposition decisions. ED Course as of 05/22/23 1831 Sun May 22, 2023 1627 DDx: COPD exacerbation, URI, bronchitis, pneumonia Patient been visiting her daughter and came back in the past 3 days about a cough congestion and wheezing. She has known history of COPD has been using Elevin inhalers without much relief. Denies any chest discomfort leg pain or swelling. Today I will go ahead and get respiratory for Plex patient be given a shot of steroids and chest x-ray and given a DuoNeb treatment and reassess. Patient vitals otherwise were stable for an oxygenation of 99% [PD] 1804 After DuoNeb treatment patient significantly improved still with some wheezing will give a second treatment. Patient has some of her chronic pain symptoms that seem to be coming on at this point and want something for the discomfort. She said Toradol has not worked in the past. I will give her a shot of morphine. [PD] 1827 Respiratory for Plex was negative. Patient seemed reassured that she already feels significantly better after the second DuoNeb treatment. She is able to ambulate with no difficulty and does not feel short winded. She already had a Ceftin and has not had any reaction. We will go ahead and call her in 1 weeks worth. Patient will need follow-up within the week with her primary physician and continue current medication. Long discussion about smoking cessation and different modalities to try. She said she is tried multiple treatments but has not been successful. [PD] 1828 Nursing notes reviewed. We had a discussion re patients care, the diagnosis, discharge instructions and care plan. Results including incidental findings of ER work-up discussed. Questions were answered and patient demonstrated a great understanding and seemed pleased with this plan. Repeat exam and review of vitals was stable and patient appeared a lot better. Patient is advised that this is not a complete evaluation of their symptoms and that evaluation here is done on an emergency basis. Although ED workup here was without acute emergent findings warranting admission or immediate referral, there may be need for further evaluation. This will be done by their primary care doctor or specialist that they have or will be given upon discharge, including possible additional testing, education and medication management. Strict return to ER instructions were described to the patient including any recurrent symptoms, new or worsening symptoms. Patient at this time feels comfortable with this plan and has safe place and feels safe leaving. The patient underwent a thorough evaluation in the ED, during which we discussed their care, diagnosis, discharge instructions, and care plan. The patient demonstrated a clear understanding and expressed satisfaction with the plan. A repeat exam and review of vital signs provided reassurance that the patient was improving. [PD] ED Course User Index [PD] Jasmin Ziegler MD Prior to disposition, I reviewed the results of our workup, the treatment plan, and all abnormal findings and discussed the necessary follow up with the patient. I discussed how the ED workup may not have shown any emergent findings but the patient would need to follow up the entire workup with their primary care doctor for a close inspection of the workup and terminal press operator care. I answered all questions to the patient s verbal satisfaction. Extensive discharge precautions were given to the patient with strict follow up and return precautions both verbally and a short written summary as in discharge paperwork. Patient felt well and agreed to follow up outpatient. Patient demonstrated a good understanding of the plan, return instructions, and necessary follow up. Final set of vitals reviewed in room and stable and repeat exam upon discharge reassuring. For any medications that were administered I was able to discuss the benefits and potential risks involved. 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 There was a high probability of clinically significant/life threatening deterioration in the patient's condition which required my urgent intervention. Blood pressure screening Pre-hypertension/hypertension: The patient has been informed that they may have pre-hypertension or hypertension based on a blood pressure reading in the emergency department. I recommend that the patient call the primary care provider listed on their discharge instructions or a physician of their choice this week to arrange follow-up for further motion of possible pre-hypertension or hypertension FINAL IMPRESSION 1. COPD exacerbation (HCC) DISPOSITION Discharge [1] 05/22/2023 6:29 PM PATIENT REFERRED TO: Mike Ann Jr., MD [address] [facility] [address] [facility] [id number] Schedule an appointment as soon as possible for a visit in 3 days DISCHARGE MEDICATIONS: Medication List START taking these medications cefdinir 300 MG capsule Quantity: 14 capsule Commonly known as: OMNICEF Take 1 capsule (300 mg total) by mouth 2 (two) times a day for 7 days. ASK your doctor about these medications albuterol 90 mcg/actuation inhaler Quantity: 8.5 g Commonly known as: PROAIR HFA;PROVENTIL HFA;VENTOLIN HFA INHALE TWO PUFFS BY MOUTH FOUR TIMES A DAY ALPRAZolam 0.5 MG tablet Quantity: 60 tablet Commonly known as: Xanax Take 1 tablet (0.5 mg total) by mouth once nightly as needed for sleep. Max Daily Amount: 0.5 mg budesonide-formoteroL 160-4.5 mcg/actuation inhaler Quantity: 1 each Commonly known as: SYMBICORT Inhale 2 puffs into the lungs 2 (two) times a day. calcium-vitamin D 500 mg(1,250mg) -200 unit per tablet Quantity: 180 tablet Take 1 tablet by mouth 2 (two) times a day with meals. cetirizine 10 MG tablet Quantity: 30 tablet Commonly known as: ZyrTEC TAKE ONE TABLET BY MOUTH DAILY cholecalciferol 125 mcg (5,000 unit) capsule Quantity: 100 capsule Commonly known as: VITAMIN D3 Take 1 capsule (5,000 Units total) by mouth once daily. diaper,brief,adult,disposable Misc Quantity: 96 each 1 application by Miscellaneous route 2 (two) times a day. Ensure Liqd Quantity: 35918 mL Generic drug: food supplemt, lactose-reduced Drink 2 bottles per day. Patient requests strawberry. Flovent Diskus 250 mcg/actuation Dsdv Quantity: 60 each Generic drug: fluticasone propionate Inhale 1 puff into the lungs 2 (two) times a day. hydroCHLOROthiazide 25 MG tablet Quantity: 45 tablet Commonly known as: HYDRODIURIL TAKE 1/2 TABLET BY MOUTH DAILY hydrOXYzine 50 MG tablet Quantity: 60 tablet Commonly known as: ATARAX Take 1 tablet (50 mg total) by mouth once nightly as needed for anxiety. ibandronate 150 mg tablet Quantity: 3 tablet Commonly known as: Boniva Take 1 tablet (150 mg total) by mouth every 30 (thirty) days. Take sitting upright once mobnthly on empty stomach with glass of water , dont lay down or eat for full hour ipratropium-albuteroL 0.5-2.5 mg/3 mL nebulizer Quantity: 360 mL Commonly known as: DUO-NEB INHALE 1 VIAL VIA NEBULIZATION BY MOUTH FOUR TIMES A DAY lisinopriL 5 MG tablet Quantity: 90 tablet Commonly known as: PRINIVIL,ZESTRIL TAKE ONE TABLET BY MOUTH DAILY * miscellaneous medical supply Misc Quantity: 100 each Requests incontinence pads, 2 per day * miscellaneous medical supply Misc Quantity: 1 each Needs nebulizer machine for use for breathing problems for duo-nebs treatments * miscellaneous medical supply Misc Quantity: 1 each Needs mask, tubing and filter for nebulizer machine to be changed every 3 months. naloxone 2 mg/actuation [place] Quantity: 4 each 2 mg by Nasal route as needed. 1-2 daily PRN. Proceed to ER for evaluation immediately following use. omeprazole 40 MG capsule Quantity: 30 capsule Commonly known as: PriLOSEC Take 1 capsule (40 mg total) by mouth once daily. ondansetron 4 MG disintegrating tablet Quantity: 30 tablet Commonly known as: Zofran ODT Place 1-2 tablets (4-8 mg total) under the tongue every 8 (eight) hours as needed for nausea / vomiting. * oxyCODONE-acetaminophen 10-325 mg tablet Quantity: 120 tablet Commonly known as: Percocet Take 1 tablet by mouth every 6 (six) hours as needed for pain. To Last 30days. No early refills Max Daily Amount: 4 tablets * oxyCODONE-acetaminophen 10-325 mg tablet Quantity: 120 tablet Commonly known as: Percocet Take 1 tablet by mouth every 6 (six) hours as needed for pain. To Last 30days. No early refills Max Daily Amount: 4 tablets potassium chloride 10 MEQ CR tablet Quantity: 360 tablet Commonly known as: KLOR-CON TAKE TWO TABLETS BY MOUTH TWICE A DAY prazosin 2 MG capsule Quantity: 270 capsule Commonly known as: MINIPRESS TAKE THREE CAPSULES BY MOUTH EVERY EVENING Relistor 150 mg Tab Quantity: 90 tablet Generic drug: methylnaltrexone Take 3 tablets by mouth daily as needed. For opiate induced constipation tiZANidine 4 MG tablet Quantity: 60 tablet Commonly known as: ZANAFLEX Take 1 tablet (4 mg total) by mouth 2 (two) times a day. topiramate 25 MG tablet Quantity: 90 tablet Commonly known as: Topamax Take 2 tablet in the a.m. and 1 tablet in pm * This list has 5 medication(s) that are the same as other medications prescribed for you. Read the directions carefully, and ask your doctor or other care provider to review them with you. Where to Get Your Medications These medications were sent to [facility] [id number] [facility] [address] [address] [place] [address] [facility] [id number] cefdinir 300 MG capsule (Please note that portions of this note were completed with a voice recognition program. Efforts were made to edit the dictations but occasionally words are mis-transcribed.) MD Jasmin Yost MD 05/22/23 183 JASMIN ZIEGLER [facility] 2023-04-28 10:50:00 [facility] CHIEF COMPLAINT No chief complaint on file. SUBJECTIVE Ibis Tay is a 68 y.o. female who presents for follow-up of No chief complaint on file. with diagnosis of: 1. Problem List Items Addressed This Visit Cervical radiculopathy - Primary Relevant Medications oxyCODONE-acetaminophen (Percocet) 10-325 mg tablet Failed back syndrome Lumbar spondylosis Relevant Medications oxyCODONE-acetaminophen (Percocet) 10-325 mg tablet Osteoarthritis of knee Relevant Medications oxyCODONE-acetaminophen (Percocet) 10-325 mg tablet Patient underwent LESI on 12-19-20She notes 50% improvement but continues with low back and joint pain. She notes that she has prior cervical WAQAR with >50% relief lasting 8-10mos. She feels the pain has recurred and would like to proceed with repeat cervical WAQAR She has tried OTC NSAIDs, daily home exercises/stretching she learned through PT without improvement Since patient's last encounter patient reports persistent chronic pain requiring ongoing treatment. Describes the pain as Sharp and Stabbing Patient rates their pain score 7/10 on average and is tolerable. Patient feels that the medication regimen does help maintain the function, mobility, activity tolerance and pain levels at a tolerable level. Patient states that medications changes or injections are not necessary today Patient states that the pain symptoms are stable. Patient denies new or changing pain complaints. Patient notes that the pain is worse with general activity and improved with rest. Patient 's current pain medication regimen has been reviewed with the patient and they note that the medication regimen is effective and reports that they are taking the medication regimen as prescribed. Patient denies running out of medication early or having an excess supply of medications. Other concerns: no new concerns at this time Patient's current pain medications has been reviewed and includes: DRUG FREQ Percocet 10/325 qid qid Patient's most recent interventional procedures: PROCEDURE DATE % Relief & Duration Interlaminar Lumbar Epidural Steroid Injection L3 - L4 12/19/20 ROS Constitutional: denies dizziness, sedation, or somnolence Psychological: denies altered mentation or euphoria GI: denies significant constipation or diarrhea Musc: denies acute change in numbness, weakness, or tingling of extemities MEDICATIONS Current Outpatient Medications Medication Sig Dispense Refill - albuterol sulfate hfa 90 mcg/actuation aerosol inhaler INHALE TWO PUFFS BY MOUTH FOUR TIMES A DAY 8.5 g 11 - ALPRAZolam (Xanax) 0.5 MG tablet Take 1 tablet (0.5 mg total) by mouth once nightly as needed for sleep. Max Daily Amount: 0.5 mg 60 tablet 1 - budesonide-formoteroL (SYMBICORT) 160-4.5 mcg/actuation inhaler Inhale 2 puffs into the lungs 2 (two) times a day. 1 each 11 - calcium-vitamin D 500 mg(1,250mg) -200 unit per tablet Take 1 tablet by mouth 2 (two) times a day with meals. 180 tablet 2 - cetirizine (ZyrTEC) 10 MG tablet Take 1 tablet (10 mg total) by mouth once daily. 90 tablet 1 - cholecalciferol (VITAMIN D3) 125 mcg (5,000 unit) capsule Take 1 capsule (5,000 Units total) by mouth once daily. 100 capsule 3 - diaper,brief,adult,disposable Misc 1 application by Miscellaneous route 2 (two) times a day. 96 each 5 - fluticasone propionate (Flovent Diskus) 250 mcg/actuation Disk with Device Inhale 1 puff into the lungs 2 (two) times a day. 60 each 3 - food supplemt, lactose-reduced (Ensure) Liquid Drink 2 bottles per day. Patient requests strawberry. 35399 mL 3 - hydroCHLOROthiazide (HYDRODIURIL) 25 MG tablet TAKE 1/2 TABLET BY MOUTH DAILY 45 tablet 1 - hydrOXYzine (ATARAX) 50 MG tablet Take 1 tablet (50 mg total) by mouth once nightly as needed for anxiety. (Patient not taking: Reported on 03/29/2023) 60 tablet 1 - ibandronate (Boniva) 150 mg tablet Take 1 tablet (150 mg total) by mouth every 30 (thirty) days. Take sitting upright once mobnthly on empty stomach with glass of water , dont lay down or eat for full hour (Patient not taking: Reported on 04/25/2023) 3 tablet 4 - ipratropium-albuteroL (DUO-NEB) 0.5-2.5 mg/3 mL nebulizer NEBULIZE 1 VIAL (3 ML) BY MOUTH FOUR TIMES A DAY 360 mL 1 - lisinopriL (PRINIVIL,ZESTRIL) 5 MG tablet TAKE ONE TABLET BY MOUTH DAILY 90 tablet 1 - methylnaltrexone (Relistor) 150 mg Tablet Take 3 tablets by mouth daily as needed. For opiate induced constipation (Patient not taking: Reported on 04/25/2023) 90 tablet 1 - miscellaneous [place] [facility] [place] for use for breathing problems for duo-nebs treatments 1 each 0 - miscellaneous medical [place] [facility] [place], tubing and filter for nebulizer machine to be changed every 3 months. 1 each 3 - miscellaneous medical [place] [facility] [place] incontinence pads, 2 per day 100 each 6 - naloxone 2 mg/actuation [place], Non-Aerosol 2 mg by Nasal route as needed. 1-2 daily PRN. Proceed to ER for evaluation immediately following use. 4 each 1 - omeprazole (PriLOSEC) 40 MG capsule Take 1 capsule (40 mg total) by mouth once daily. 30 capsule 7 - ondansetron (Zofran ODT) [address] 1-2 tablets (4-8 mg total) under the tongue every 8 (eight) hours as needed for nausea / vomiting. 30 tablet 5 - oxyCODONE-acetaminophen (Percocet) 10-325 mg tablet Take 1 tablet by mouth every 6 (six) hours as needed for pain. To Last 30days. No early refills Max Daily Amount: 4 tablets 120 tablet 0 - oxyCODONE-acetaminophen (Percocet) 10-325 mg tablet Take 1 tablet by mouth every 6 (six) hours as needed for pain. To Last 30days. No early refills Max Daily Amount: 4 tablets 120 tablet 0 - potassium chloride (KLOR-CON) 10 MEQ CR tablet TAKE TWO TABLETS BY MOUTH TWICE A DAY (Patient not taking: Reported on 04/25/2023) 360 tablet 1 - prazosin (MINIPRESS) 2 MG capsule TAKE THREE CAPSULES BY MOUTH EVERY EVENING 270 capsule 1 - tiZANidine (ZANAFLEX) 4 MG tablet Take 1 tablet (4 mg total) by mouth 2 (two) times a day. 60 tablet 3 - topiramate (Topamax) 25 MG tablet Take 2 tablet in the a.m. and 1 tablet in pm 90 tablet 11 Current Facility-Administered Medications Medication Dose Route Frequency Provider Last Rate Last Admin - pneumococcal 20-valent vaccine (PREVNAR 20) syringe 0.5 mL IntraMuscular Once Mike Ann Jr., MD ALLERGIES Allergies Allergen Reactions - Penicillins Anaphylaxis - Gabapentin Other (See Comments) severe fatigue - Sulfa (Sulfonamide Antibiotics) Other (See Comments) Blisters inside and outside of mouth. - Wellbutrin [Bupropion Hcl] Other (See Comments) Body numbness and tingling - Bee Pollens Yellow jackets, Wasps - Diazepam Nausea And Vomiting - Varenicline Other reaction(s): Not available PHYSICAL EXAM Vital Signs: BP (!) 148/75 (BP Location: Right arm) Pulse 85 Constitutional: Well nourished, well groomed, NAD. CARDIAC: Regular Rate LUNGS: Breathing nonlabored, no wheezing Neurologic: Alert & oriented x 3, normal gait, no focal deficits noted. Psychiatric: Affect normal, judgment normal, mood normal. Other Affected BA/OS: Chronic Opiate Therapy Risk Mitigation: Risk Assessment Evaluation Assessment Morphine Equivalents 60 Date of Last UDS SOAPP-R Score Behavior Risks none Physical Risks none H/o Illegal Substance Abuse denies H/o Alcohol abuse denies OPIATE RISK ASSESSMENT: LOW (Routine medication monitoring, Annual UDS) Assessment is based treating physicians overall evaluation of multiple factors including MME load, age, comorbidity, medication profile, and social risk factors. The risks/benefits of chronic opiate therapy was discussed with patient including failure of therapy, psychological addiction, physiological dependence, and risk withdrawal syndrome. Warning symptoms of potential opiate overuse/overdose were discussed including sedation, somnolence, and altered mentation were reviewed and I counseled patient these symptoms can occur even when patient have been on a stable dose and also can happen despite following physicians instructions. Alternative therapies were discussed including: non-opiate medications, interventional pain procedures, and Cognitive Behavioral Therapy. After discussing these alternatives with the patient, the patient has opted to decline these alternatives at this time. Patient has tried and failed more conservative measures and were either ineffective or intolerant. In my medical opinion non-opiate therapy is not appropriate to address the patient's medical condition at this time and will continue chronic opiate therapy after having addressed efficacy, adverse side effects, and safety of therapy with the patient. The patient indicates understanding of these issues and agrees with the plan. LIFESTYLE COUNSELING: Time was spent discussing the importance of a home exercise program to promote strength, activity endurance and pain tolerance. Patient was also counseled on avoidance of tobacco products for general health as well as improved chronic pain control. ASSESSMENT AND PLAN Problem List Items Addressed This Visit Cervical radiculopathy - Primary Relevant Medications oxyCODONE-acetaminophen (Percocet) 10-325 mg tablet Failed back syndrome Lumbar spondylosis Relevant Medications oxyCODONE-acetaminophen (Percocet) 10-325 mg tablet Osteoarthritis of knee Relevant Medications oxyCODONE-acetaminophen (Percocet) 10-325 mg tablet PLAN: 1. Patient is stable functional and meeting the goals of chronic opiate therapy without adverse side effects, misuse, or safety concerns. PDMP was reviewed without redflags or other concerns. 2. Repeat LOUISE with excellent response noting 50% relief. 3. I will continue her percocet to 10/325 qid and f/u in 4weeks The patient indicates understanding of these issues and agrees with the plan. I reviewed the patient's medical information and medical history. I have reviewed the past medical, family, and social history sections including the medications and allergies listed in the above medical record. Patient was counseled that in my practice I do not prescribe chronic opiate therapy in the presence of ongoing illegal substance use. Patient was also counseled that drug screen testing is medically necessary from time to time to help stratify risks associated with chronic opiate therapy by assessing compliance with prescribed medications as well as to identify the presence of illegal substances. Consent for drug screen testing is required for continuation of chronic opiate therapy. ISAÍAS CARDENAS [facility] 2023-04-25 11:45:00 Patient, Ibis anderson s consent to Mike Ann Jr., MD's use of Augmedix at today's visit. SH ELLIS [facility] 2023-04-25 11:45:00 Subjective: Patient ID: Ibis Tay is a 68 y.o. female. Chief Complaint Patient presents with - Follow-up Flu up from new medication. - exposure to covid Pt sated she was exposure to COVID on tuesday. Wants to get tested x Covid. HPI Ibis Tay is a 68 y.o. female presenting today for: Follow up. The patient is concerned about exposure to Covid. Patient stated she was exposure to COVID on Tuesday. She wants to get tested for Covid. She said that she had vaccinations on . Her associated symptoms include chest congestion and cough. She has a productive cough in the morning. She notes her oxygen level was down a little bit. She smokes cigarettes about one pack a day. Patient is ut-to-date for her vaccinations. The patient has a history of COPD exacerbation. Patient reports shortness of breath with exertion. She notes shortness of breath with walking and cannot walk up to 1 miles. She said that she has walk a box distance. She also notes difficulty with walking up and down the stairs. She said that her oxygen level was down sometimes. Her oxygen saturation today is is 94%. She is using nebulizer and emergency inhaler with benefit she does not like the dry powder inhalers . She said that she does not have issues with Symbicort. The patient has a history of anxiety. She has been taking Xanax 0.25 twice a day with benefit for a month. She is not taking Xanax 0.5 mg currently. She requests for refill of 0.5 mg dose. She said that Xanax is working well for her. Her anxiety is controlled. The patient has a history of essential hypertension. Since her last visit, she reports she is doing well. Patient's current medications include: hydrochlorothiazide 25 mg 0.5 tablet once daily with benefit, lisinopril 5 mg QD with benefit, reports no side effects, and prazosin 2 mg QD with benefit, reports no side effects. Her blood pressure today is 88/54. She is trying to follow a low-salt diet, walk 30 minutes 5 times weekly, and denies headaches, chest pain, shortness of breath, or lower extremity swelling at present. Her weight today is at 97 pounds and weight was at 107 pounds on 03/29/2023. She has lost 10 pounds since her last visit. BP Readings from Last 3 Encounters: 04/25/23 (!) 88/54 03/29/23 92/54 03/03/23 113/66 The patient has a history of GERD. Since her last visit, she states she is doing well. Patient's current medications include: omeprazole 40 mg QD with benefit, reports no side effects. Review of Systems General : Positive for weight loss, no loss of appetite, no fever, no chills, no fatigue, no night sweats Skin And lymphatics: No rashes, no skin discolorations, no easy bruising, no lymphadenopathy Head: No headaches, no dizziness, no masses, no seizures Eyes: No visual changes no eye pain Ears: No tinnitus, no vertigo, no hearing loss Nose: No nosebleeds, no discharge, no sinus disease Mouth and throat: Denies dental disease, no hoarseness, no throat pain Respiratory: Positive for cough, shortness of breath and sputum production. Cardiovascular: Positive for congestion. No chest pain, no orthopnea, no paroxysmal nocturnal dyspnea, or dyspnea on exertion, no claudication, no edema, no valvular disease Gastrointestinal: No dysphagia, no abdominal pain, no nausea, no vomiting, no hematemesis, no diarrhea, no constipation, no melena, no hematochezia Genitourinary: No dysuria, no frequency, no hesitancy, no hematuria no discharge Endocrine: No polyuria, no polydipsia, no skin or hair changes, no heat intolerance Musculoskeletal: No joint pain or swelling, no arthritis, no myalgias Neuropsychiatric: No weakness no seizures, no memory changes, no depression Neurologic: No unilateral or bilateral numbness tingling or weakness, no difficulty with speech, no vision changes, no problems with balance, denies dizziness, denies headache Objective: BP (!) 88/54 (BP Location: Right arm, Patient Position: Sitting) Pulse 109 Temp 36.3 C (97.3 F) (Temporal Artery (forehead)) Ht 154.9 cm (5' 0.98) Wt 44.1 kg (97 lb 4.8 oz) SpO2 94% BMI 18.39 kg/m Physical Exam Nursing note and vitals reviewed. Constitutional: Patient appears well-developed and well-nourished. No distress. Head: Normocephalic and atraumatic. Right Ear: External ear normal. no erythema bright tympanic membrane bony landmarks intact Left Ear: External ear normal. No erythema bright tympanic membrane bony landmarks intact Mouth/Throat: The patient has upper and lower dentures. No oropharyngeal exudate. Eyes: Pupils are equal, round, and reactive to light. Right eye exhibits no discharge. Left eye exhibits no discharge. No scleral icterus. Neck: No JVD present. No tracheal deviation present. No thyromegaly present. Cardiovascular: Normal rate, regular rhythm, normal heart sounds and intact distal pulses. Exam reveals no gallop and no friction rub. No murmur heard. Pulmonary/Chest: Effort normal. No respiratory distress. patient has no wheezes. patient has no rales. Patient exhibits no tenderness. Abdominal: Soft. Patient exhibits no distension and no mass. There is no tenderness to palpation. There is no rebound and no guarding. Musculoskeletal: Normal range of motion. Patient exhibits no edema and no tenderness. Neurological: patient is alert and oriented to person, place, and time. gait balance and strength intact upper and lower extremity, cranial nerves 2-12 intact Skin: Skin is warm. No rash noted. Patient is not diaphoretic. No erythema. No pallor. Assessment/Plan: Problem List Items Addressed This Visit Essential hypertension GERD (gastroesophageal reflux disease) COPD exacerbation (HCC) Relevant Medications budesonide-formoteroL (SYMBICORT) 160-4.5 mcg/actuation inhaler Other Visit Diagnoses Screening for colorectal cancer - Primary Chronic obstructive pulmonary disease, unspecified COPD type (HCC) (Chronic) Relevant Medications budesonide-formoteroL (SYMBICORT) 160-4.5 mcg/actuation inhaler Anxiety Relevant Medications ALPRAZolam (Xanax) 0.5 MG tablet Viral URI with cough Relevant Medications budesonide-formoteroL (SYMBICORT) 160-4.5 mcg/actuation inhaler Other Relevant Orders Respiratory pathogen screen 1. Screening for colorectal cancer ok for cologuard 2. COPD exacerbation (HCC) Discussed the pathophysiology and management of COPD.patient needs to stop smoking , needs annual PFT's 3. Essential hypertension Continue current medication therapy. Goal blood pressure less than 140/90 . Follow low salt diet as well as Dash Diet suggestions, aerobic exercise 30 minutes 5x weekly, keep weight close to ideal. 4. Chronic obstructive pulmonary disease, unspecified COPD type (HCC) Continue the current medication regimen. 5. Anxiety New prescription ALPRAZolam (Xanax) increased from 0.25 to 0.5 MG tablet; Take 1 tablet (0.5 mg total) by mouth once nightly as needed for sleep. Max Daily Amount: 0.5 mg Dispense: 60 tablet; Refill: 1 6. Viral URI with cough New prescription budesonide-formoteroL (SYMBICORT) 160-4.5 mcg/actuation inhaler; Inhale 2 puffs into the lungs 2 (two) times a day. Dispense: 1 each; Refill: 11 Ordered: - Respiratory pathogen screen; Future - Respiratory pathogen screen 7. Gastroesophageal reflux disease, unspecified whether esophagitis present Continue the current medication regimen. Attestation: The patient indicates understanding of these issues and agrees with the plan. I reviewed the patient's medical information and medical history. I have reviewed the past medical, family, and social history sections including the medications and allergies listed in the above medical record. Signature: I, Shannon Collazo, am scribing for and in the presence of Mkie Ann Jr., MD. . I have read and agree with the documentation that has been completed regarding this visit and attest, that it is an accurate record of both my words and actions during the visit. . MIKE ANN JR, [facility] 2023-04-15 07:00:00 Operative Note PATIENT: Ibis Tay Primary Care Physician: Mike Ann Jr, MD : 1955 Age: 68 y.o. Procedure Information Procedure: INTERLAMINAR CERVICAL EPIDURALS STEROID INJECTION W/ Fluoroscopy (CPT 90419) Date of Procedure: April 15, 2023 Site of Service: [facility] Pre-operative Diagnosis: Cervical radiculopathy [M54.12] Post-operative Diagnosis: SAME Surgeon: Isaías Cardenas MD Sales Representative Leather Goods(s): NONE Anesthesia:LOCAL Estimated Blood Loss: MINIMAL FINDINGS: NONE Complications: NONE DISCUSSION After informed consent was obtained, patient was taken to procedure room and placed in prone position on radiolucent procedure table. Time out was performed Patient posterior neck was prepped and draped in normal sterile fashion. Flouroscopy was used to identify the C5-6 intervertebral space was noted and skin overlying the noted landmark was anesthetized using 3ml of 1%lidocaine. 18 gauge Toughy needle was then advanced in a midline interlaminar approach to the epidural space using saline loss of resistance technique. Loss of resistance was encountered. 1ml of ISOVUEW M200 injected demontrating epidural spread in both AP and Lateral Oblique views. After negative aspiration a steroid solution containing 10 mg Dexomethasone and 1 ml of 1% Lidocaine was injected without pressure paraesthesia. Vital signs were monitored throughout the procedure and remained stable. Patient tolerated the procedure and was sent to PACU in stable condition without apparent complication. Signed: Isaías Cardenas MD 04/15/2023 7:09 AM ISAÍAS CARDENAS [facility] 2023-03-29 14:00:00 Patient, Ibis anderson s consent to Mike Ann Jr., MD's use of Augmedix at today's visit. L WAHL [facility] 2023-03-29 14:00:00 Subjective: Patient ID: Ibis Tay is a 68 y.o. female. Chief Complaint Patient presents with - Follow-up Cancer DR requested follow-up CT scan, having pain in lower abdomen HPI Ibis Tay is a 68 y.o. female presenting today for: Follow up. The patient reports that she has headaches. Her symptom started today. She describes her headaches as throbbing and stabbing in nature. She is feeling pressure in her head. She also notes some allergies symptoms. Her associated symptoms include sneezing and shortness of breath occasionally. She had allergic shot in the past. She is smoking cigarettes due to her depression. The patient reports that urinary symptoms. She has hematuria on and off. She has increased symptoms since last 2 months and notes symptoms 3 times weekly. She denies any fever or chills. The patient reports that she has lower abdominal pain. She reports that she has history of anxiety. She has been anxious for past 30 years. She is taking alprazolam 0.25 once a day as needed for anxiety. She had CT scan of abdomen on 01/14/2023 showed that no renal or ureteral calculi. No hydoephrosis. Small left renal cyst. Atherosclerotic vascular disease. 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 Patient is status post left upper lobe lobectomy from a lung cancer that was back on Sep 2017. She had a mediastinal lymph node dissection as well. She is seeing Dr. Brown. She also has concerns of spreading cancer to her female organs. The patient has a history of essential hypertension. Since her last visit, she reports she is doing well. Patient's current medications include: hydrochlorothiazide 25 mg 0.5 tablet daily with benefit, reports no side effects and lisinopril 5 mg QD with benefit, reports no side effects. Her blood pressure today is 92/54. She is trying to follow a low-salt diet, walk 30 minutes 5 times weekly, and denies headaches, chest pain, shortness of breath, or lower extremity swelling at present. BP Readings from Last 3 Encounters: 03/29/23 92/54 03/03/23 113/66 12/30/22 115/67 The patient has a history of GERD. Since her last visit, she states she is doing okay. Patient's current medications include: omeprazole 40 mg QD with benefit, reports no side effects. The patient has a history of lumbar spondylosis. Since her last visit, she states she is doing well. Patient's current medications include: oxycodone-acetaminophen 10-325 mg every 6 hours as needed for pain with benefit, reports no side effects. The patient is up-to-date for her immunizations. She said that she had RSV shot and flu vaccination. Her comprehensive metabolic panel done on 07/27/2022 revealed glucose at 101, BUN at 12, creatinine at 0.71, sodium at 142, potassium at 3.6, chloride at 108, calcium at 9.1, liver enzymes with AST at 8 and ALT at 14. CBC (INCLUDES DIFF/PLT) normal with white blood count at 5.0, red blood count at 4.83, hemoglobin at 13.2, and platelet count at 241. Review of Systems General : No weight gain or loss, no loss of appetite, no fever, no chills, no fatigue, no night sweats Skin And lymphatics: No rashes, no skin discolorations, no easy bruising, no lymphadenopathy Head: Positive for headache. no dizziness, no masses, no seizures Eyes: No visual changes no eye pain Ears: No tinnitus, no vertigo, no hearing loss Nose: No nosebleeds, no discharge, no sinus disease Mouth and throat: Denies dental disease, no hoarseness, no throat pain Respiratory: No cough, no shortness of breath, no sputum production Cardiovascular: No chest pain, no orthopnea, no paroxysmal nocturnal dyspnea, or dyspnea on exertion, no claudication, no edema, no valvular disease Gastrointestinal: Positive for lower abdominal pain. No dysphagia, no nausea, no vomiting, no hematemesis, no diarrhea, no constipation, no melena, no hematochezia Genitourinary: Positive for intermittent hematuria. No dysuria, no frequency, no hesitancy, no hematuria no discharge Endocrine: No polyuria, no polydipsia, no skin or hair changes, no heat intolerance Musculoskeletal: No joint pain or swelling, no arthritis, no myalgias Neuropsychiatric: No weakness no seizures, no memory changes, no depression Neurologic: Positive for headache. No unilateral or bilateral numbness tingling or weakness, no difficulty with speech, no vision changes, no problems with balance, denies dizziness. Objective: BP 92/54 (BP Location: Right arm, Patient Position: Sitting) Pulse 92 Temp 35.7 C (96.2 F) (Temporal Artery (forehead)) Wt 48.6 kg (107 lb 3.2 oz) SpO2 99% BMI 20.27 kg/m Physical Exam Nursing note and vitals reviewed. Constitutional: Patient appears well-developed and well-nourished. No distress. Head: Normocephalic and atraumatic. Right Ear: External ear normal. no erythema bright tympanic membrane bony landmarks intact Left Ear: External ear normal. No erythema bright tympanic membrane bony landmarks intact Mouth/Throat: No oropharyngeal exudate. Nose: Turbinates are little bit pale. Eyes: Pupils are equal, round, and reactive to light. Right eye exhibits no discharge. Left eye exhibits no discharge. No scleral icterus. Neck: No JVD present. No tracheal deviation present. No thyromegaly present. Cardiovascular: Normal rate, regular rhythm, normal heart sounds and intact distal pulses. Exam reveals no gallop and no friction rub. No murmur heard. Pulmonary/Chest: Effort normal. No respiratory distress. patient has no wheezes. patient has no rales. Patient exhibits no tenderness. Abdominal: Soft. Patient exhibits no distension and no mass. There is no tenderness to palpation. There is no rebound and no guarding. Musculoskeletal: Normal range of motion. Patient exhibits no edema and no tenderness. Neurological: patient is alert and oriented to person, place, and time. gait balance and strength intact upper and lower extremity, cranial nerves 2-12 intact Skin: Skin is warm. No rash noted. Patient is not diaphoretic. No erythema. No pallor. Assessment/Plan: Problem List Items Addressed This Visit Essential hypertension - Primary GERD (gastroesophageal reflux disease) COPD exacerbation (HCC) Other Visit Diagnoses Chronic obstructive pulmonary disease, unspecified COPD type (HCC) (Chronic) Seasonal allergic rhinitis due to pollen Relevant Medications triamcinolone acetonide (KENALOG-40) injection 40 mg (Completed) Gross hematuria Relevant Orders Comprehensive metabolic panel CT Abdomen Pelvis with Contrast Anxiety Relevant Medications ALPRAZolam (Xanax) 0.25 MG tablet Chronic nonintractable headache, unspecified headache type Relevant Medications ketorolac (TORADOL) injection 30 mg (Completed) 1. Essential hypertension Continue current medication therapy. Goal blood pressure less than 140/90 . Follow low salt diet as well as Dash Diet suggestions, aerobic exercise 30 minutes 5x weekly, keep weight close to ideal. 2. Chronic obstructive pulmonary disease, unspecified COPD type (HCC) Continue the current medication regimen. 3. COPD exacerbation (HCC) Continue the current medication regimen. 4. Gastroesophageal reflux disease without esophagitis Continue the current medication regimen. 5. Seasonal allergic rhinitis due to pollen Administered triamcinolone acetonide (KENALOG-40) injection 40 mg 6. Gross hematuria Ordered: - Comprehensive metabolic panel - CT Abdomen Pelvis with Contrast; Future We will notify the patient with the results. 7. Anxiety Start ALPRAZolam (Xanax) 0.25 MG tablet; Take 1 tablet (0.25 mg total) by mouth 2 (two) times a day as needed for sleep for up to 30 days. Max Daily Amount: 0.5 mg Dispense: 60 tablet; Refill: 0 8. Chronic nonintractable headache, unspecified headache type Administered ketorolac (TORADOL) injection 30 mg Attestation: The patient indicates understanding of these issues and agrees with the plan. I reviewed the patient's medical information and medical history. I have reviewed the past medical, family, and social history sections including the medications and allergies listed in the above medical record. Signature: I, Shannon Collazo, am scribing for and in the presence of Mike Ann Jr., MD. . I have read and agree with the documentation that has been completed regarding this visit and attest, that it is an accurate record of both my words and actions during the visit. . MIKE ANN JR, [facility] 2023-03-03 10:50:00 [facility] CHIEF COMPLAINT No chief complaint on file. SUBJECTIVE Ibis Tay is a 68 y.o. female who presents for follow-up of No chief complaint on file. with diagnosis of: 1. Problem List Items Addressed This Visit Cervical radiculopathy Relevant Medications oxyCODONE-acetaminophen (Percocet) 10-325 mg tablet (Start on 04/02/2023) oxyCODONE-acetaminophen (Percocet) 10-325 mg tablet Failed back syndrome Relevant Medications oxyCODONE-acetaminophen (Percocet) 10-325 mg tablet Lumbar spondylosis - Primary Relevant Medications oxyCODONE-acetaminophen (Percocet) 10-325 mg tablet (Start on 04/02/2023) oxyCODONE-acetaminophen (Percocet) 10-325 mg tablet Osteoarthritis of knee Relevant Medications oxyCODONE-acetaminophen (Percocet) 10-325 mg tablet (Start on 04/02/2023) Patient underwent LESI on 12-19-20She notes 50% improvement but continues with low back and joint pain. She notes that she has prior cervical WAQAR with >50% relief lasting 8-10mos. She feels the pain has recurred and would like to proceed with repeat cervical WAQAR She has tried OTC NSAIDs, daily home exercises/stretching she learned through PT without improvement Since patient's last encounter patient reports persistent chronic pain requiring ongoing treatment. Describes the pain as Sharp and Stabbing Patient rates their pain score 7/10 on average and is tolerable. Patient feels that the medication regimen does help maintain the function, mobility, activity tolerance and pain levels at a tolerable level. Patient states that medications changes or injections are not necessary today Patient states that the pain symptoms are stable. Patient denies new or changing pain complaints. Patient notes that the pain is worse with general activity and improved with rest. Patient 's current pain medication regimen has been reviewed with the patient and they note that the medication regimen is effective and reports that they are taking the medication regimen as prescribed. Patient denies running out of medication early or having an excess supply of medications. Other concerns: no new concerns at this time Patient's current pain medications has been reviewed and includes: DRUG FREQ Percocet 10/325 qid qid Patient's most recent interventional procedures: PROCEDURE DATE % Relief & Duration Interlaminar Lumbar Epidural Steroid Injection L3 - L4 12/19/20 ROS Constitutional: denies dizziness, sedation, or somnolence Psychological: denies altered mentation or euphoria GI: denies significant constipation or diarrhea Musc: denies acute change in numbness, weakness, or tingling of extemities MEDICATIONS Current Outpatient Medications Medication Sig Dispense Refill - albuterol sulfate hfa 90 mcg/actuation aerosol inhaler INHALE TWO PUFFS BY MOUTH FOUR TIMES A DAY 8.5 g 11 - ALPRAZolam (Xanax) 0.5 MG tablet Take 1 tablet (0.5 mg total) by mouth daily as needed for anxiety. Max Daily Amount: 0.5 mg 15 tablet 0 - calcium-vitamin D 500 mg(1,250mg) -200 unit per tablet Take 1 tablet by mouth 2 (two) times a day with meals. 180 tablet 2 - cetirizine (ZyrTEC) 10 MG tablet Take 1 tablet (10 mg total) by mouth once daily. 90 tablet 1 - cholecalciferol (VITAMIN D3) 125 mcg (5,000 unit) capsule Take 1 capsule (5,000 Units total) by mouth once daily. 100 capsule 3 - diaper,brief,adult,disposable Misc 1 application by Miscellaneous route 2 (two) times a day. 96 each 5 - fluticasone propionate (Flovent Diskus) 250 mcg/actuation Disk with Device Inhale 1 puff into the lungs 2 (two) times a day. 60 each 3 - food supplemt, lactose-reduced (Ensure) Liquid Drink 2 bottles per day. Patient requests strawberry. 63064 mL 3 - hydroCHLOROthiazide (HYDRODIURIL) 25 MG tablet TAKE 1/2 TABLET BY MOUTH DAILY 45 tablet 1 - hydrOXYzine (ATARAX) 50 MG tablet Take 1 tablet (50 mg total) by mouth once nightly as needed for anxiety. 60 tablet 1 - ibandronate (Boniva) 150 mg tablet Take 1 tablet (150 mg total) by mouth every 30 (thirty) days. Take sitting upright once mobnthly on empty stomach with glass of water , dont lay down or eat for full hour 3 tablet 4 - ipratropium-albuteroL (DUO-NEB) 0.5-2.5 mg/3 mL nebulizer NEBULIZE 1 VIAL (3 ML) BY MOUTH FOUR TIMES A DAY 360 mL 1 - lisinopriL (PRINIVIL,ZESTRIL) 5 MG tablet TAKE ONE TABLET BY MOUTH DAILY 90 tablet 1 - methylnaltrexone (Relistor) 150 mg Tablet Take 3 tablets by mouth daily as needed. For opiate induced constipation 90 tablet 1 - [place] [facility] [place] for use for breathing problems for duo-nebs treatments 1 each 0 - misc[place] medical [place] [facility] [place], tubing and filter for nebulizer machine to be changed every 3 months. 1 each 3 - misc[place] medical [place] [facility] [place] incontinence pads, 2 per day 100 each 6 - naloxone 2 mg/actuation [place], Non-Aerosol 2 mg by Nasal route as needed. 1-2 daily PRN. Proceed to ER for evaluation immediately following use. 4 each 1 - omeprazole (PriLOSEC) 40 MG capsule Take 1 capsule (40 mg total) by mouth once daily. 30 capsule 7 - ondansetron (Zofran ODT) [address] 1-2 tablets (4-8 mg total) under the tongue every 8 (eight) hours as needed for nausea / vomiting. 30 tablet 5 - [START ON 04/02/2023] oxyCODONE-acetaminophen (Percocet) 10-325 mg tablet Take 1 tablet by mouth every 6 (six) hours as needed for pain. To Last 30days. No early refills Max Daily Amount: 4 tablets 120 tablet 0 - oxyCODONE-acetaminophen (Percocet) 10-325 mg tablet Take 1 tablet by mouth every 6 (six) hours as needed for pain. To Last 30days. No early refills Max Daily Amount: 4 tablets 120 tablet 0 - potassium chloride (KLOR-CON) 10 MEQ CR tablet TAKE TWO TABLETS BY MOUTH TWICE A DAY 360 tablet 1 - prazosin (MINIPRESS) 2 MG capsule TAKE THREE CAPSULES BY MOUTH EVERY EVENING 270 capsule 1 - tiZANidine (ZANAFLEX) 4 MG tablet Take 1 tablet (4 mg total) by mouth 2 (two) times a day. 60 tablet 3 - topiramate (Topamax) 25 MG tablet Take 2 tablet in the a.m. and 1 tablet in pm 90 tablet 11 - umeclidinium-vilanteroL (Anoro Ellipta) 62.5-25 mcg/actuation Disk with Device Inhale 1 puff into the lungs once daily. 1 each 6 Current Facility-Administered Medications Medication Dose Route Frequency Provider Last Rate Last Admin - pneumococcal 20-valent vaccine (PREVNAR 20) syringe 0.5 mL IntraMuscular Once Mike Ann Jr., MD ALLERGIES Allergies Allergen Reactions - Penicillins Anaphylaxis - Gabapentin Other (See Comments) severe fatigue - Sulfa (Sulfonamide Antibiotics) Other (See Comments) Blisters inside and outside of mouth. - Wellbutrin [Bupropion Hcl] Other (See Comments) Body numbness and tingling - Bee Pollens Yellow jackets, Wasps - Diazepam Nausea And Vomiting - Varenicline PHYSICAL EXAM Vital Signs: BP 113/66 (BP Location: Right arm) Pulse 100 Wt 48.3 kg (106 lb 6.4 oz) BMI 20.11 kg/m Constitutional: Well nourished, well groomed, NAD. CARDIAC: Regular Rate LUNGS: Breathing nonlabored, no wheezing Neurologic: Alert & oriented x 3, normal gait, no focal deficits noted. Psychiatric: Affect normal, judgment normal, mood normal. Other Affected BA/OS: Chronic Opiate Therapy Risk Mitigation: Risk Assessment Evaluation Assessment Morphine Equivalents 60 Date of Last UDS SOAPP-R Score Behavior Risks none Physical Risks none H/o Illegal Substance Abuse denies H/o Alcohol abuse denies OPIATE RISK ASSESSMENT: LOW (Routine medication monitoring, Annual UDS) Assessment is based treating physicians overall evaluation of multiple factors including MME load, age, comorbidity, medication profile, and social risk factors. The risks/benefits of chronic opiate therapy was discussed with patient including failure of therapy, psychological addiction, physiological dependence, and risk withdrawal syndrome. Warning symptoms of potential opiate overuse/overdose were discussed including sedation, somnolence, and altered mentation were reviewed and I counseled patient these symptoms can occur even when patient have been on a stable dose and also can happen despite following physicians instructions. Alternative therapies were discussed including: non-opiate medications, interventional pain procedures, and Cognitive Behavioral Therapy. After discussing these alternatives with the patient, the patient has opted to decline these alternatives at this time. Patient has tried and failed more conservative measures and were either ineffective or intolerant. In my medical opinion non-opiate therapy is not appropriate to address the patient's medical condition at this time and will continue chronic opiate therapy after having addressed efficacy, adverse side effects, and safety of therapy with the patient. The patient indicates understanding of these issues and agrees with the plan. LIFESTYLE COUNSELING: Time was spent discussing the importance of a home exercise program to promote strength, activity endurance and pain tolerance. Patient was also counseled on avoidance of tobacco products for general health as well as improved chronic pain control. ASSESSMENT AND PLAN Problem List Items Addressed This Visit Cervical radiculopathy Relevant Medications oxyCODONE-acetaminophen (Percocet) 10-325 mg tablet (Start on 04/02/2023) oxyCODONE-acetaminophen (Percocet) 10-325 mg tablet Failed back syndrome Relevant Medications oxyCODONE-acetaminophen (Percocet) 10-325 mg tablet Lumbar spondylosis - Primary Relevant Medications oxyCODONE-acetaminophen (Percocet) 10-325 mg tablet (Start on 04/02/2023) oxyCODONE-acetaminophen (Percocet) 10-325 mg tablet Osteoarthritis of knee Relevant Medications oxyCODONE-acetaminophen (Percocet) 10-325 mg tablet (Start on 04/02/2023) PLAN: 1. Patient is stable functional and meeting the goals of chronic opiate therapy without adverse side effects, misuse, or safety concerns. PDMP was reviewed without redflags or other concerns. 2. I counseled her on the importance of maintaining her activity and low-impact exercise such as walking on a daily basis to promote good health and improve chronic pain management. 3. She did very well with recent Cervical WAQAR performed >1yr ago. Her neck and radiating arm pain is worsening now and she feels the injection is wearing off and she would like to repeat the cervical WAQAR. I will obain PA for the procedure and schedule her for the injectoin as soon as possible 4. I will continue her percocet to 10/325 qid and f/u in 8weeks The patient indicates understanding of these issues and agrees with the plan. I reviewed the patient's medical information and medical history. I have reviewed the past medical, family, and social history sections including the medications and allergies listed in the above medical record. Patient was counseled that in my practice I do not prescribe chronic opiate therapy in the presence of ongoing illegal substance use. Patient was also counseled that drug screen testing is medically necessary from time to time to help stratify risks associated with chronic opiate therapy by assessing compliance with prescribed medications as well as to identify the presence of illegal substances. Consent for drug screen testing is required for continuation of chronic opiate therapy. ISAÍAS CARDENAS [facility] 2023-02-03 13:50:00 [facility] CHIEF COMPLAINT No chief complaint on file. SUBJECTIVE Ibis Tay is a 67 y.o. female who presents for follow-up of No chief complaint on file. with diagnosis of: 1. Problem List Items Addressed This Visit Cervical radiculopathy Failed back syndrome Lumbar spondylosis - Primary Osteoarthritis of knee Patient underwent LESI on 12-19-20She notes 50% improvement but continues with low back and joint pain. She notes that she has prior cervical WAQAR with >50% relief lasting 8-10mos. She feels the pain has recurred and would like to proceed with repeat cervical WAQAR She has tried OTC NSAIDs, daily home exercises/stretching she learned through PT without improvement Since patient's last encounter patient reports persistent chronic pain requiring ongoing treatment. Describes the pain as Sharp and Stabbing Patient rates their pain score 7/10 on average and is tolerable. Patient feels that the medication regimen does help maintain the function, mobility, activity tolerance and pain levels at a tolerable level. Patient states that medications changes or injections are not necessary today Patient states that the pain symptoms are stable. Patient denies new or changing pain complaints. Patient notes that the pain is worse with general activity and improved with rest. Patient 's current pain medication regimen has been reviewed with the patient and they note that the medication regimen is effective and reports that they are taking the medication regimen as prescribed. Patient denies running out of medication early or having an excess supply of medications. Other concerns: no new concerns at this time Patient's current pain medications has been reviewed and includes: DRUG FREQ Percocet qid qid Patient's most recent interventional procedures: PROCEDURE DATE % Relief & Duration Interlaminar Lumbar Epidural Steroid Injection L3 - L4 12/19/20 ROS Constitutional: denies dizziness, sedation, or somnolence Psychological: denies altered mentation or euphoria GI: denies significant constipation or diarrhea Musc: denies acute change in numbness, weakness, or tingling of extemities MEDICATIONS Current Outpatient Medications Medication Sig Dispense Refill - albuterol sulfate hfa 90 mcg/actuation aerosol inhaler INHALE TWO PUFFS BY MOUTH FOUR TIMES A DAY 8.5 g 11 - ALPRAZolam (Xanax) 0.5 MG tablet Take 1 tablet (0.5 mg total) by mouth daily as needed for anxiety. Max Daily Amount: 0.5 mg 15 tablet 0 - calcium-vitamin D 500 mg(1,250mg) -200 unit per tablet Take 1 tablet by mouth 2 (two) times a day with meals. 180 tablet 2 - cetirizine (ZyrTEC) 10 MG tablet Take 1 tablet (10 mg total) by mouth once daily. 90 tablet 1 - cholecalciferol (VITAMIN D3) 125 mcg (5,000 unit) capsule Take 1 capsule (5,000 Units total) by mouth once daily. 100 capsule 3 - diaper,brief,adult,disposable Misc 1 application by Miscellaneous route 2 (two) times a day. 96 each 5 - fluticasone propionate (Flovent Diskus) 250 mcg/actuation Disk with Device Inhale 1 puff into the lungs 2 (two) times a day. 60 each 3 - food supplemt, lactose-reduced (Ensure) Liquid Drink 2 bottles per day. Patient requests strawberry. 60945 mL 3 - hydroCHLOROthiazide (HYDRODIURIL) 25 MG tablet TAKE 1/2 TABLET BY MOUTH DAILY 45 tablet 1 - hydrOXYzine (ATARAX) 50 MG tablet Take 1 tablet (50 mg total) by mouth once nightly as needed for anxiety. 60 tablet 1 - ibandronate (Boniva) 150 mg tablet Take 1 tablet (150 mg total) by mouth every 30 (thirty) days. Take sitting upright once mobnthly on empty stomach with glass of water , dont lay down or eat for full hour 3 tablet 4 - ipratropium-albuteroL (DUO-NEB) 0.5-2.5 mg/3 mL nebulizer NEBULIZE 1 VIAL (3 ML) BY MOUTH FOUR TIMES A DAY 360 mL 1 - lisinopriL (PRINIVIL,ZESTRIL) 5 MG tablet TAKE ONE TABLET BY MOUTH DAILY 90 tablet 1 - methylnaltrexone (Relistor) 150 mg Tablet Take 3 tablets by mouth daily as needed. For opiate induced constipation 90 tablet 1 - misc[place] [facility] [place] for use for breathing problems for duo-nebs treatments 1 each 0 - miscellaneous medical [place] [facility] [place], tubing and filter for nebulizer machine to be changed every 3 months. 1 each 3 - misc[place] medical [place] [facility] [place] incontinence pads, 2 per day 100 each 6 - naloxone 2 mg/actuation [place], Non-Aerosol 2 mg by Nasal route as needed. 1-2 daily PRN. Proceed to ER for evaluation immediately following use. 4 each 1 - omeprazole (PriLOSEC) 40 MG capsule Take 1 capsule (40 mg total) by mouth once daily. 30 capsule 7 - ondansetron (Zofran ODT) [address] 1-2 tablets (4-8 mg total) under the tongue every 8 (eight) hours as needed for nausea / vomiting. 30 tablet 5 - oxyCODONE-acetaminophen (Percocet) 10-325 mg tablet Take 1 tablet by mouth every 6 (six) hours as needed for pain. To Last 30days. No early refills Max Daily Amount: 4 tablets 120 tablet 0 - oxyCODONE-acetaminophen (Percocet) 10-325 mg tablet Take 1 tablet by mouth every 6 (six) hours as needed for pain. To Last 30days. No early refills Max Daily Amount: 4 tablets 120 tablet 0 - potassium chloride (KLOR-CON) 10 MEQ CR tablet TAKE TWO TABLETS BY MOUTH TWICE A DAY 360 tablet 1 - prazosin (MINIPRESS) 2 MG capsule TAKE THREE CAPSULES BY MOUTH EVERY EVENING 270 capsule 1 - tiZANidine (ZANAFLEX) 4 MG tablet Take 1 tablet (4 mg total) by mouth 2 (two) times a day. 60 tablet 3 - topiramate (Topamax) 25 MG tablet Take 2 tablet in the a.m. and 1 tablet in pm 90 tablet 11 - umeclidinium-vilanteroL (Anoro Ellipta) 62.5-25 mcg/actuation Disk with Device Inhale 1 puff into the lungs once daily. 1 each 6 Current Facility-Administered Medications Medication Dose Route Frequency Provider Last Rate Last Admin - pneumococcal 20-valent vaccine (PREVNAR 20) syringe 0.5 mL IntraMuscular Once Mike Ann Jr., MD ALLERGIES Allergies Allergen Reactions - Penicillins Anaphylaxis - Gabapentin Other (See Comments) severe fatigue - Sulfa (Sulfonamide Antibiotics) Other (See Comments) Blisters inside and outside of mouth. - Wellbutrin [Bupropion Hcl] Other (See Comments) Body numbness and tingling - Diazepam Nausea And Vomiting - Varenicline PHYSICAL EXAM Vital Signs: There were no vitals taken for this visit. Constitutional: Well nourished, well groomed, NAD. CARDIAC: Regular Rate LUNGS: Breathing nonlabored, no wheezing Neurologic: Alert & oriented x 3, normal gait, no focal deficits noted. Psychiatric: Affect normal, judgment normal, mood normal. Other Affected BA/OS: Chronic Opiate Therapy Risk Mitigation: Risk Assessment Evaluation Assessment Morphine Equivalents 60 Date of Last UDS SOAPP-R Score Behavior Risks none Physical Risks none H/o Illegal Substance Abuse denies H/o Alcohol abuse denies OPIATE RISK ASSESSMENT: LOW (Routine medication monitoring, Annual UDS) Assessment is based treating physicians overall evaluation of multiple factors including MME load, age, comorbidity, medication profile, and social risk factors. The risks/benefits of chronic opiate therapy was discussed with patient including failure of therapy, psychological addiction, physiological dependence, and risk withdrawal syndrome. Warning symptoms of potential opiate overuse/overdose were discussed including sedation, somnolence, and altered mentation were reviewed and I counseled patient these symptoms can occur even when patient have been on a stable dose and also can happen despite following physicians instructions. Alternative therapies were discussed including: non-opiate medications, interventional pain procedures, and Cognitive Behavioral Therapy. After discussing these alternatives with the patient, the patient has opted to decline these alternatives at this time. Patient has tried and failed more conservative measures and were either ineffective or intolerant. In my medical opinion non-opiate therapy is not appropriate to address the patient's medical condition at this time and will continue chronic opiate therapy after having addressed efficacy, adverse side effects, and safety of therapy with the patient. The patient indicates understanding of these issues and agrees with the plan. LIFESTYLE COUNSELING: Time was spent discussing the importance of a home exercise program to promote strength, activity endurance and pain tolerance. Patient was also counseled on avoidance of tobacco products for general health as well as improved chronic pain control. ASSESSMENT AND PLAN Problem List Items Addressed This Visit Cervical radiculopathy Failed back syndrome Lumbar spondylosis - Primary Osteoarthritis of knee PLAN: 1. Patient is stable functional and meeting the goals of chronic opiate therapy without adverse side effects, misuse, or safety concerns. PDMP was reviewed without redflags or other concerns. 2. I counseled her on the importance of maintaining her activity and low-impact exercise such as walking on a daily basis to promote good health and improve chronic pain management. 3. She did very well with recent Cervical WAQAR 4. PAtient notes that she has increasing right knee pain. She has had prior RIGHT TKA. She notes she also has had prior RIGHT genicular RFA for her knee pain which was very effective 3yrs ago. She requests repeat RFA. I will schedule her for repeat genicular nerve RFA for the right knee 5. I will continue her percocet to 10/325 qid and f/u in 4 weeks The patient indicates understanding of these issues and agrees with the plan. I reviewed the patient's medical information and medical history. I have reviewed the past medical, family, and social history sections including the medications and allergies listed in the above medical record. Patient was counseled that in my practice I do not prescribe chronic opiate therapy in the presence of ongoing illegal substance use. Patient was also counseled that drug screen testing is medically necessary from time to time to help stratify risks associated with chronic opiate therapy by assessing compliance with prescribed medications as well as to identify the presence of illegal substances. Consent for drug screen testing is required for continuation of chronic opiate therapy. Electronically signed by: Isaías Cardenas MD, 02/03/2023 2:24 PM [facility] CHIEF COMPLAINT No chief complaint on file. SUBJECTIVE Ibis Tay is a 67 y.o. female who presents for follow-up of No chief complaint on file. with diagnosis of: 1. Problem List Items Addressed This Visit Cervical radiculopathy Failed back syndrome Lumbar spondylosis - Primary Osteoarthritis of knee Patient underwent LESI on 12-19-20She notes 50% improvement but continues with low back and joint pain. She notes that she has prior cervical WAQAR with >50% relief lasting 8-10mos. She feels the pain has recurred and would like to proceed with repeat cervical WAQAR She has tried OTC NSAIDs, daily home exercises/stretching she learned through PT without improvement Since patient's last encounter patient reports persistent chronic pain requiring ongoing treatment. Describes the pain as Sharp and Stabbing Patient rates their pain score 7/10 on average and is tolerable. Patient feels that the medication regimen does help maintain the function, mobility, activity tolerance and pain levels at a tolerable level. Patient states that medications changes or injections are not necessary today Patient states that the pain symptoms are stable. Patient denies new or changing pain complaints. Patient notes that the pain is worse with general activity and improved with rest. Patient 's current pain medication regimen has been reviewed with the patient and they note that the medication regimen is effective and reports that they are taking the medication regimen as prescribed. Patient denies running out of medication early or having an excess supply of medications. Other concerns: no new concerns at this time Patient's current pain medications has been reviewed and includes: DRUG FREQ Percocet qid qid Patient's most recent interventional procedures: PROCEDURE DATE % Relief & Duration Interlaminar Lumbar Epidural Steroid Injection L3 - L4 12/19/20 ROS Constitutional: denies dizziness, sedation, or somnolence Psychological: denies altered mentation or euphoria GI: denies significant constipation or diarrhea Musc: denies acute change in numbness, weakness, or tingling of extemities MEDICATIONS Current Outpatient Medications Medication Sig Dispense Refill - albuterol sulfate hfa 90 mcg/actuation aerosol inhaler INHALE TWO PUFFS BY MOUTH FOUR TIMES A DAY 8.5 g 11 - ALPRAZolam (Xanax) 0.5 MG tablet Take 1 tablet (0.5 mg total) by mouth daily as needed for anxiety. Max Daily Amount: 0.5 mg 15 tablet 0 - calcium-vitamin D 500 mg(1,250mg) -200 unit per tablet Take 1 tablet by mouth 2 (two) times a day with meals. 180 tablet 2 - cetirizine (ZyrTEC) 10 MG tablet Take 1 tablet (10 mg total) by mouth once daily. 90 tablet 1 - cholecalciferol (VITAMIN D3) 125 mcg (5,000 unit) capsule Take 1 capsule (5,000 Units total) by mouth once daily. 100 capsule 3 - diaper,brief,adult,disposable Misc 1 application by Miscellaneous route 2 (two) times a day. 96 each 5 - fluticasone propionate (Flovent Diskus) 250 mcg/actuation Disk with Device Inhale 1 puff into the lungs 2 (two) times a day. 60 each 3 - food supplemt, lactose-reduced (Ensure) Liquid Drink 2 bottles per day. Patient requests strawberry. 18647 mL 3 - hydroCHLOROthiazide (HYDRODIURIL) 25 MG tablet TAKE 1/2 TABLET BY MOUTH DAILY 45 tablet 1 - hydrOXYzine (ATARAX) 50 MG tablet Take 1 tablet (50 mg total) by mouth once nightly as needed for anxiety. 60 tablet 1 - ibandronate (Boniva) 150 mg tablet Take 1 tablet (150 mg total) by mouth every 30 (thirty) days. Take sitting upright once mobnthly on empty stomach with glass of water , dont lay down or eat for full hour 3 tablet 4 - ipratropium-albuteroL (DUO-NEB) 0.5-2.5 mg/3 mL nebulizer NEBULIZE 1 VIAL (3 ML) BY MOUTH FOUR TIMES A DAY 360 mL 1 - lisinopriL (PRINIVIL,ZESTRIL) 5 MG tablet TAKE ONE TABLET BY MOUTH DAILY 90 tablet 1 - methylnaltrexone (Relistor) 150 mg Tablet Take 3 tablets by mouth daily as needed. For opiate induced constipation 90 tablet 1 - [place] [facility] [place] for use for breathing problems for duo-nebs treatments 1 each 0 - miscellaneous medical [place] [facility] [place], tubing and filter for nebulizer machine to be changed every 3 months. 1 each 3 - misc[place] medical [place] [facility] [place] incontinence pads, 2 per day 100 each 6 - naloxone 2 mg/actuation [place], Non-Aerosol 2 mg by Nasal route as needed. 1-2 daily PRN. Proceed to ER for evaluation immediately following use. 4 each 1 - omeprazole (PriLOSEC) 40 MG capsule Take 1 capsule (40 mg total) by mouth once daily. 30 capsule 7 - ondansetron (Zofran ODT) [address] 1-2 tablets (4-8 mg total) under the tongue every 8 (eight) hours as needed for nausea / vomiting. 30 tablet 5 - oxyCODONE-acetaminophen (Percocet) 10-325 mg tablet Take 1 tablet by mouth every 6 (six) hours as needed for pain. To Last 30days. No early refills Max Daily Amount: 4 tablets 120 tablet 0 - oxyCODONE-acetaminophen (Percocet) 10-325 mg tablet Take 1 tablet by mouth every 6 (six) hours as needed for pain. To Last 30days. No early refills Max Daily Amount: 4 tablets 120 tablet 0 - potassium chloride (KLOR-CON) 10 MEQ CR tablet TAKE TWO TABLETS BY MOUTH TWICE A DAY 360 tablet 1 - prazosin (MINIPRESS) 2 MG capsule TAKE THREE CAPSULES BY MOUTH EVERY EVENING 270 capsule 1 - tiZANidine (ZANAFLEX) 4 MG tablet Take 1 tablet (4 mg total) by mouth 2 (two) times a day. 60 tablet 3 - topiramate (Topamax) 25 MG tablet Take 2 tablet in the a.m. and 1 tablet in pm 90 tablet 11 - umeclidinium-vilanteroL (Anoro Ellipta) 62.5-25 mcg/actuation Disk with Device Inhale 1 puff into the lungs once daily. 1 each 6 Current Facility-Administered Medications Medication Dose Route Frequency Provider Last Rate Last Admin - pneumococcal 20-valent vaccine (PREVNAR 20) syringe 0.5 mL IntraMuscular Once Mike Ann Jr., MD ALLERGIES Allergies Allergen Reactions - Penicillins Anaphylaxis - Gabapentin Other (See Comments) severe fatigue - Sulfa (Sulfonamide Antibiotics) Other (See Comments) Blisters inside and outside of mouth. - Wellbutrin [Bupropion Hcl] Other (See Comments) Body numbness and tingling - Diazepam Nausea And Vomiting - Varenicline PHYSICAL EXAM Vital Signs: There were no vitals taken for this visit. Constitutional: Well nourished, well groomed, NAD. CARDIAC: Regular Rate LUNGS: Breathing nonlabored, no wheezing Neurologic: Alert & oriented x 3, normal gait, no focal deficits noted. Psychiatric: Affect normal, judgment normal, mood normal. Other Affected BA/OS: Chronic Opiate Therapy Risk Mitigation: Risk Assessment Evaluation Assessment Morphine Equivalents 60 Date of Last UDS SOAPP-R Score Behavior Risks none Physical Risks none H/o Illegal Substance Abuse denies H/o Alcohol abuse denies OPIATE RISK ASSESSMENT: LOW (Routine medication monitoring, Annual UDS) Assessment is based treating physicians overall evaluation of multiple factors including MME load, age, comorbidity, medication profile, and social risk factors. The risks/benefits of chronic opiate therapy was discussed with patient including failure of therapy, psychological addiction, physiological dependence, and risk withdrawal syndrome. Warning symptoms of potential opiate overuse/overdose were discussed including sedation, somnolence, and altered mentation were reviewed and I counseled patient these symptoms can occur even when patient have been on a stable dose and also can happen despite following physicians instructions. Alternative therapies were discussed including: non-opiate medications, interventional pain procedures, and Cognitive Behavioral Therapy. After discussing these alternatives with the patient, the patient has opted to decline these alternatives at this time. Patient has tried and failed more conservative measures and were either ineffective or intolerant. In my medical opinion non-opiate therapy is not appropriate to address the patient's medical condition at this time and will continue chronic opiate therapy after having addressed efficacy, adverse side effects, and safety of therapy with the patient. The patient indicates understanding of these issues and agrees with the plan. LIFESTYLE COUNSELING: Time was spent discussing the importance of a home exercise program to promote strength, activity endurance and pain tolerance. Patient was also counseled on avoidance of tobacco products for general health as well as improved chronic pain control. ASSESSMENT AND PLAN Problem List Items Addressed This Visit Cervical radiculopathy Failed back syndrome Lumbar spondylosis - Primary Osteoarthritis of knee PLAN: 6. Patient is stable functional and meeting the goals of chronic opiate therapy without adverse side effects, misuse, or safety concerns. PDMP was reviewed without redflags or other concerns. 7. I counseled her on the importance of maintaining her activity and low-impact exercise such as walking on a daily basis to promote good health and improve chronic pain management. 8. She notes that she will be undergoing hernia surgery early July 26. I will continue her percocet to 10/325 qid and f/u in 4 weeks The patient indicates understanding of these issues and agrees with the plan. I reviewed the patient's medical information and medical history. I have reviewed the past medical, family, and social history sections including the medications and allergies listed in the above medical record. Patient was counseled that in my practice I do not prescribe chronic opiate therapy in the presence of ongoing illegal substance use. Patient was also counseled that drug screen testing is medically necessary from time to time to help stratify risks associated with chronic opiate therapy by assessing compliance with prescribed medications as well as to identify the presence of illegal substances. Consent for drug screen testing is required for continuation of chronic opiate therapy. Electronically signed by: Isaías Cardenas MD, 02/03/2023 2:24 PM [facility] CHIEF COMPLAINT No chief complaint on file. SUBJECTIVE Ibis Tay is a 67 y.o. female who presents for follow-up of No chief complaint on file. with diagnosis of: 1. Problem List Items Addressed This Visit Cervical radiculopathy Failed back syndrome Lumbar spondylosis - Primary Osteoarthritis of knee Patient underwent LESI on 12-19-20She notes 50% improvement but continues with low back and joint pain. She notes that she has prior cervical WAQAR with >50% relief lasting 8-10mos. She feels the pain has recurred and would like to proceed with repeat cervical WAQAR She has tried OTC NSAIDs, daily home exercises/stretching she learned through PT without improvement Since patient's last encounter patient reports persistent chronic pain requiring ongoing treatment. Describes the pain as Sharp and Stabbing Patient rates their pain score 7/10 on average and is tolerable. Patient feels that the medication regimen does help maintain the function, mobility, activity tolerance and pain levels at a tolerable level. Patient states that medications changes or injections are not necessary today Patient states that the pain symptoms are stable. Patient denies new or changing pain complaints. Patient notes that the pain is worse with general activity and improved with rest. Patient 's current pain medication regimen has been reviewed with the patient and they note that the medication regimen is effective and reports that they are taking the medication regimen as prescribed. Patient denies running out of medication early or having an excess supply of medications. Other concerns: no new concerns at this time Patient's current pain medications has been reviewed and includes: DRUG FREQ Percocet qid qid Patient's most recent interventional procedures: PROCEDURE DATE % Relief & Duration Interlaminar Lumbar Epidural Steroid Injection L3 - L4 12/19/20 ROS Constitutional: denies dizziness, sedation, or somnolence Psychological: denies altered mentation or euphoria GI: denies significant constipation or diarrhea Musc: denies acute change in numbness, weakness, or tingling of extemities MEDICATIONS Current Outpatient Medications Medication Sig Dispense Refill - albuterol sulfate hfa 90 mcg/actuation aerosol inhaler INHALE TWO PUFFS BY MOUTH FOUR TIMES A DAY 8.5 g 11 - ALPRAZolam (Xanax) 0.5 MG tablet Take 1 tablet (0.5 mg total) by mouth daily as needed for anxiety. Max Daily Amount: 0.5 mg 15 tablet 0 - calcium-vitamin D 500 mg(1,250mg) -200 unit per tablet Take 1 tablet by mouth 2 (two) times a day with meals. 180 tablet 2 - cetirizine (ZyrTEC) 10 MG tablet Take 1 tablet (10 mg total) by mouth once daily. 90 tablet 1 - cholecalciferol (VITAMIN D3) 125 mcg (5,000 unit) capsule Take 1 capsule (5,000 Units total) by mouth once daily. 100 capsule 3 - diaper,brief,adult,disposable Misc 1 application by Miscellaneous route 2 (two) times a day. 96 each 5 - fluticasone propionate (Flovent Diskus) 250 mcg/actuation Disk with Device Inhale 1 puff into the lungs 2 (two) times a day. 60 each 3 - food supplemt, lactose-reduced (Ensure) Liquid Drink 2 bottles per day. Patient requests strawberry. [id number] mL 3 - hydroCHLOROthiazide (HYDRODIURIL) 25 MG tablet TAKE 1/2 TABLET BY MOUTH DAILY 45 tablet 1 - hydrOXYzine (ATARAX) 50 MG tablet Take 1 tablet (50 mg total) by mouth once nightly as needed for anxiety. 60 tablet 1 - ibandronate (Boniva) 150 mg tablet Take 1 tablet (150 mg total) by mouth every 30 (thirty) days. Take sitting upright once mobnthly on empty stomach with glass of water , dont lay down or eat for full hour 3 tablet 4 - ipratropium-albuteroL (DUO-NEB) 0.5-2.5 mg/3 mL nebulizer NEBULIZE 1 VIAL (3 ML) BY MOUTH FOUR TIMES A DAY 360 mL 1 - lisinopriL (PRINIVIL,ZESTRIL) 5 MG tablet TAKE ONE TABLET BY MOUTH DAILY 90 tablet 1 - methylnaltrexone (Relistor) 150 mg Tablet Take 3 tablets by mouth daily as needed. For opiate induced constipation 90 tablet 1 - misc[place] [facility] [place] for use for breathing problems for duo-nebs treatments 1 each 0 - miscellaneous medical [place] [facility] [place], tubing and filter for nebulizer machine to be changed every 3 months. 1 each 3 - miscellaneous medical [place] [facility] [place] incontinence pads, 2 per day 100 each 6 - naloxone 2 mg/actuation [place], Non-Aerosol 2 mg by Nasal route as needed. 1-2 daily PRN. Proceed to ER for evaluation immediately following use. 4 each 1 - omeprazole (PriLOSEC) 40 MG capsule Take 1 capsule (40 mg total) by mouth once daily. 30 capsule 7 - ondansetron (Zofran ODT) [address] 1-2 tablets (4-8 mg total) under the tongue every 8 (eight) hours as needed for nausea / vomiting. 30 tablet 5 - oxyCODONE-acetaminophen (Percocet) 10-325 mg tablet Take 1 tablet by mouth every 6 (six) hours as needed for pain. To Last 30days. No early refills Max Daily Amount: 4 tablets 120 tablet 0 - oxyCODONE-acetaminophen (Percocet) 10-325 mg tablet Take 1 tablet by mouth every 6 (six) hours as needed for pain. To Last 30days. No early refills Max Daily Amount: 4 tablets 120 tablet 0 - potassium chloride (KLOR-CON) 10 MEQ CR tablet TAKE TWO TABLETS BY MOUTH TWICE A DAY 360 tablet 1 - prazosin (MINIPRESS) 2 MG capsule TAKE THREE CAPSULES BY MOUTH EVERY EVENING 270 capsule 1 - tiZANidine (ZANAFLEX) 4 MG tablet Take 1 tablet (4 mg total) by mouth 2 (two) times a day. 60 tablet 3 - topiramate (Topamax) 25 MG tablet Take 2 tablet in the a.m. and 1 tablet in pm 90 tablet 11 - umeclidinium-vilanteroL (Anoro Ellipta) 62.5-25 mcg/actuation Disk with Device Inhale 1 puff into the lungs once daily. 1 each 6 Current Facility-Administered Medications Medication Dose Route Frequency Provider Last Rate Last Admin - pneumococcal 20-valent vaccine (PREVNAR 20) syringe 0.5 mL IntraMuscular Once Mike Ann Jr., MD ALLERGIES Allergies Allergen Reactions - Penicillins Anaphylaxis - Gabapentin Other (See Comments) severe fatigue - Sulfa (Sulfonamide Antibiotics) Other (See Comments) Blisters inside and outside of mouth. - Wellbutrin [Bupropion Hcl] Other (See Comments) Body numbness and tingling - Diazepam Nausea And Vomiting - Varenicline PHYSICAL EXAM Vital Signs: There were no vitals taken for this visit. Constitutional: Well nourished, well groomed, NAD. CARDIAC: Regular Rate LUNGS: Breathing nonlabored, no wheezing Neurologic: Alert & oriented x 3, normal gait, no focal deficits noted. Psychiatric: Affect normal, judgment normal, mood normal. Other Affected BA/OS: Chronic Opiate Therapy Risk Mitigation: Risk Assessment Evaluation Assessment Morphine Equivalents 60 Date of Last UDS SOAPP-R Score Behavior Risks none Physical Risks none H/o Illegal Substance Abuse denies H/o Alcohol abuse denies OPIATE RISK ASSESSMENT: LOW (Routine medication monitoring, Annual UDS) Assessment is based treating physicians overall evaluation of multiple factors including MME load, age, comorbidity, medication profile, and social risk factors. The risks/benefits of chronic opiate therapy was discussed with patient including failure of therapy, psychological addiction, physiological dependence, and risk withdrawal syndrome. Warning symptoms of potential opiate overuse/overdose were discussed including sedation, somnolence, and altered mentation were reviewed and I counseled patient these symptoms can occur even when patient have been on a stable dose and also can happen despite following physicians instructions. Alternative therapies were discussed including: non-opiate medications, interventional pain procedures, and Cognitive Behavioral Therapy. After discussing these alternatives with the patient, the patient has opted to decline these alternatives at this time. Patient has tried and failed more conservative measures and were either ineffective or intolerant. In my medical opinion non-opiate therapy is not appropriate to address the patient's medical condition at this time and will continue chronic opiate therapy after having addressed efficacy, adverse side effects, and safety of therapy with the patient. The patient indicates understanding of these issues and agrees with the plan. LIFESTYLE COUNSELING: Time was spent discussing the importance of a home exercise program to promote strength, activity endurance and pain tolerance. Patient was also counseled on avoidance of tobacco products for general health as well as improved chronic pain control. ASSESSMENT AND PLAN Problem List Items Addressed This Visit Cervical radiculopathy Failed back syndrome Lumbar spondylosis - Primary Osteoarthritis of knee PLAN: 10. Patient is stable functional and meeting the goals of chronic opiate therapy without adverse side effects, misuse, or safety concerns. PDMP was reviewed without redflags or other concerns. 11. I counseled her on the importance of maintaining her activity and low-impact exercise such as walking on a daily basis to promote good health and improve chronic pain management. 12. She did very well with recent Cervical WAQAR 13. PAtient notes that she has increasing right knee pain. She has had prior RIGHT TKA. She notes she also has had prior RIGHT genicular RFA for her knee pain which was very effective 3yrs ago. She requests repeat RFA. I will schedule her for repeat genicular nerve RFA for the right knee 14. I will continue her percocet to 10/325 qid and f/u in 4 weeks The patient indicates understanding of these issues and agrees with the plan. I reviewed the patient's medical information and medical history. I have reviewed the past medical, family, and social history sections including the medications and allergies listed in the above medical record. Patient was counseled that in my practice I do not prescribe chronic opiate therapy in the presence of ongoing illegal substance use. Patient was also counseled that drug screen testing is medically necessary from time to time to help stratify risks associated with chronic opiate therapy by assessing compliance with prescribed medications as well as to identify the presence of illegal substances. Consent for drug screen testing is required for continuation of chronic opiate therapy. Electronically signed by: Isaías Cardenas MD, 02/03/2023 2:24 PM [facility] CHIEF COMPLAINT No chief complaint on file. SUBJECTIVE Ibis Tay is a 67 y.o. female who presents for follow-up of No chief complaint on file. with diagnosis of: 1. Problem List Items Addressed This Visit Cervical radiculopathy Failed back syndrome Lumbar spondylosis - Primary Osteoarthritis of knee Patient underwent LESI on 12-19-20She notes 50% improvement but continues with low back and joint pain. She notes that she has prior cervical WAQAR with >50% relief lasting 8-10mos. She feels the pain has recurred and would like to proceed with repeat cervical WAQAR She has tried OTC NSAIDs, daily home exercises/stretching she learned through PT without improvement Since patient's last encounter patient reports persistent chronic pain requiring ongoing treatment. Describes the pain as Sharp and Stabbing Patient rates their pain score 7/10 on average and is tolerable. Patient feels that the medication regimen does help maintain the function, mobility, activity tolerance and pain levels at a tolerable level. Patient states that medications changes or injections are not necessary today Patient states that the pain symptoms are stable. Patient denies new or changing pain complaints. Patient notes that the pain is worse with general activity and improved with rest. Patient 's current pain medication regimen has been reviewed with the patient and they note that the medication regimen is effective and reports that they are taking the medication regimen as prescribed. Patient denies running out of medication early or having an excess supply of medications. Other concerns: no new concerns at this time Patient's current pain medications has been reviewed and includes: DRUG FREQ Percocet qid qid Patient's most recent interventional procedures: PROCEDURE DATE % Relief & Duration Interlaminar Lumbar Epidural Steroid Injection L3 - L4 12/19/20 ROS Constitutional: denies dizziness, sedation, or somnolence Psychological: denies altered mentation or euphoria GI: denies significant constipation or diarrhea Musc: denies acute change in numbness, weakness, or tingling of extemities MEDICATIONS Current Outpatient Medications Medication Sig Dispense Refill - albuterol sulfate hfa 90 mcg/actuation aerosol inhaler INHALE TWO PUFFS BY MOUTH FOUR TIMES A DAY 8.5 g 11 - ALPRAZolam (Xanax) 0.5 MG tablet Take 1 tablet (0.5 mg total) by mouth daily as needed for anxiety. Max Daily Amount: 0.5 mg 15 tablet 0 - calcium-vitamin D 500 mg(1,250mg) -200 unit per tablet Take 1 tablet by mouth 2 (two) times a day with meals. 180 tablet 2 - cetirizine (ZyrTEC) 10 MG tablet Take 1 tablet (10 mg total) by mouth once daily. 90 tablet 1 - cholecalciferol (VITAMIN D3) 125 mcg (5,000 unit) capsule Take 1 capsule (5,000 Units total) by mouth once daily. 100 capsule 3 - diaper,brief,adult,disposable Misc 1 application by Miscellaneous route 2 (two) times a day. 96 each 5 - fluticasone propionate (Flovent Diskus) 250 mcg/actuation Disk with Device Inhale 1 puff into the lungs 2 (two) times a day. 60 each 3 - food supplemt, lactose-reduced (Ensure) Liquid Drink 2 bottles per day. Patient requests strawberry. [id number] mL 3 - hydroCHLOROthiazide (HYDRODIURIL) 25 MG tablet TAKE 1/2 TABLET BY MOUTH DAILY 45 tablet 1 - hydrOXYzine (ATARAX) 50 MG tablet Take 1 tablet (50 mg total) by mouth once nightly as needed for anxiety. 60 tablet 1 - ibandronate (Boniva) 150 mg tablet Take 1 tablet (150 mg total) by mouth every 30 (thirty) days. Take sitting upright once mobnthly on empty stomach with glass of water , dont lay down or eat for full hour 3 tablet 4 - ipratropium-albuteroL (DUO-NEB) 0.5-2.5 mg/3 mL nebulizer NEBULIZE 1 VIAL (3 ML) BY MOUTH FOUR TIMES A DAY 360 mL 1 - lisinopriL (PRINIVIL,ZESTRIL) 5 MG tablet TAKE ONE TABLET BY MOUTH DAILY 90 tablet 1 - methylnaltrexone (Relistor) 150 mg Tablet Take 3 tablets by mouth daily as needed. For opiate induced constipation 90 tablet 1 - misc[place] [facility] [place] for use for breathing problems for duo-nebs treatments 1 each 0 - miscellaneous medical supply [facility] [place] mask, tubing and filter for nebulizer machine to be changed every 3 months. 1 each 3 - miscellaneous medical [place] [facility] [place] incontinence pads, 2 per day 100 each 6 - naloxone 2 mg/actuation [place], Non-Aerosol 2 mg by Nasal route as needed. 1-2 daily PRN. Proceed to ER for evaluation immediately following use. 4 each 1 - omeprazole (PriLOSEC) 40 MG capsule Take 1 capsule (40 mg total) by mouth once daily. 30 capsule 7 - ondansetron (Zofran ODT) [address] 1-2 tablets (4-8 mg total) under the tongue every 8 (eight) hours as needed for nausea / vomiting. 30 tablet 5 - oxyCODONE-acetaminophen (Percocet) 10-325 mg tablet Take 1 tablet by mouth every 6 (six) hours as needed for pain. To Last 30days. No early refills Max Daily Amount: 4 tablets 120 tablet 0 - oxyCODONE-acetaminophen (Percocet) 10-325 mg tablet Take 1 tablet by mouth every 6 (six) hours as needed for pain. To Last 30days. No early refills Max Daily Amount: 4 tablets 120 tablet 0 - potassium chloride (KLOR-CON) 10 MEQ CR tablet TAKE TWO TABLETS BY MOUTH TWICE A DAY 360 tablet 1 - prazosin (MINIPRESS) 2 MG capsule TAKE THREE CAPSULES BY MOUTH EVERY EVENING 270 capsule 1 - tiZANidine (ZANAFLEX) 4 MG tablet Take 1 tablet (4 mg total) by mouth 2 (two) times a day. 60 tablet 3 - topiramate (Topamax) 25 MG tablet Take 2 tablet in the a.m. and 1 tablet in pm 90 tablet 11 - umeclidinium-vilanteroL (Anoro Ellipta) 62.5-25 mcg/actuation Disk with Device Inhale 1 puff into the lungs once daily. 1 each 6 Current Facility-Administered Medications Medication Dose Route Frequency Provider Last Rate Last Admin - pneumococcal 20-valent vaccine (PREVNAR 20) syringe 0.5 mL IntraMuscular Once Mike Ann Jr., MD ALLERGIES Allergies Allergen Reactions - Penicillins Anaphylaxis - Gabapentin Other (See Comments) severe fatigue - Sulfa (Sulfonamide Antibiotics) Other (See Comments) Blisters inside and outside of mouth. - Wellbutrin [Bupropion Hcl] Other (See Comments) Body numbness and tingling - Diazepam Nausea And Vomiting - Varenicline PHYSICAL EXAM Vital Signs: There were no vitals taken for this visit. Constitutional: Well nourished, well groomed, NAD. CARDIAC: Regular Rate LUNGS: Breathing nonlabored, no wheezing Neurologic: Alert & oriented x 3, normal gait, no focal deficits noted. Psychiatric: Affect normal, judgment normal, mood normal. Other Affected BA/OS: Chronic Opiate Therapy Risk Mitigation: Risk Assessment Evaluation Assessment Morphine Equivalents 60 Date of Last UDS SOAPP-R Score Behavior Risks none Physical Risks none H/o Illegal Substance Abuse denies H/o Alcohol abuse denies OPIATE RISK ASSESSMENT: LOW (Routine medication monitoring, Annual UDS) Assessment is based treating physicians overall evaluation of multiple factors including MME load, age, comorbidity, medication profile, and social risk factors. The risks/benefits of chronic opiate therapy was discussed with patient including failure of therapy, psychological addiction, physiological dependence, and risk withdrawal syndrome. Warning symptoms of potential opiate overuse/overdose were discussed including sedation, somnolence, and altered mentation were reviewed and I counseled patient these symptoms can occur even when patient have been on a stable dose and also can happen despite following physicians instructions. Alternative therapies were discussed including: non-opiate medications, interventional pain procedures, and Cognitive Behavioral Therapy. After discussing these alternatives with the patient, the patient has opted to decline these alternatives at this time. Patient has tried and failed more conservative measures and were either ineffective or intolerant. In my medical opinion non-opiate therapy is not appropriate to address the patient's medical condition at this time and will continue chronic opiate therapy after having addressed efficacy, adverse side effects, and safety of therapy with the patient. The patient indicates understanding of these issues and agrees with the plan. LIFESTYLE COUNSELING: Time was spent discussing the importance of a home exercise program to promote strength, activity endurance and pain tolerance. Patient was also counseled on avoidance of tobacco products for general health as well as improved chronic pain control. ASSESSMENT AND PLAN Problem List Items Addressed This Visit Cervical radiculopathy Failed back syndrome Lumbar spondylosis - Primary Osteoarthritis of knee PLAN: 15. Patient is stable functional and meeting the goals of chronic opiate therapy without adverse side effects, misuse, or safety concerns. PDMP was reviewed without redflags or other concerns. 16. I counseled her on the importance of maintaining her activity and low-impact exercise such as walking on a daily basis to promote good health and improve chronic pain management. 17. She notes that she will be undergoing hernia surgery early August 04. I will continue her percocet to 10/325 qid and f/u in 4 weeks The patient indicates understanding of these issues and agrees with the plan. I reviewed the patient's medical information and medical history. I have reviewed the past medical, family, and social history sections including the medications and allergies listed in the above medical record. Patient was counseled that in my practice I do not prescribe chronic opiate therapy in the presence of ongoing illegal substance use. Patient was also counseled that drug screen testing is medically necessary from time to time to help stratify risks associated with chronic opiate therapy by assessing compliance with prescribed medications as well as to identify the presence of illegal substances. Consent for drug screen testing is required for continuation of chronic opiate therapy. Electronically signed by: Isaías Cardenas MD, 02/03/2023 2:24 PM [facility] CARDENA[facility] 2022-12-30 10:30:00 [facility] CHIEF COMPLAINT No chief complaint on file. SUBJECTIVE Ibis Tay is a 67 y.o. female who presents for follow-up of No chief complaint on file. with diagnosis of: 1. Problem List Items Addressed This Visit Cervical radiculopathy Failed back syndrome Lumbar spondylosis - Primary Patient underwent LESI on 12-19-20She notes 50% improvement but continues with low back and joint pain. She notes that she has prior cervical WAQAR with >50% relief lasting 8-10mos. She feels the pain has recurred and would like to proceed with repeat cervical WAQAR She has tried OTC NSAIDs, daily home exercises/stretching she learned through PT without improvement Since patient's last encounter patient reports persistent chronic pain requiring ongoing treatment. Describes the pain as Sharp and Stabbing Patient rates their pain score 7/10 on average and is tolerable. Patient feels that the medication regimen does help maintain the function, mobility, activity tolerance and pain levels at a tolerable level. Patient states that medications changes or injections are not necessary today Patient states that the pain symptoms are stable. Patient denies new or changing pain complaints. Patient notes that the pain is worse with general activity and improved with rest. Patient 's current pain medication regimen has been reviewed with the patient and they note that the medication regimen is effective and reports that they are taking the medication regimen as prescribed. Patient denies running out of medication early or having an excess supply of medications. Other concerns: no new concerns at this time Patient's current pain medications has been reviewed and includes: DRUG FREQ Percocet qid qid Patient's most recent interventional procedures: PROCEDURE DATE % Relief & Duration Interlaminar Lumbar Epidural Steroid Injection L3 - L4 12/19/20 ROS Constitutional: denies dizziness, sedation, or somnolence Psychological: denies altered mentation or euphoria GI: denies significant constipation or diarrhea Musc: denies acute change in numbness, weakness, or tingling of extemities MEDICATIONS Current Outpatient Medications Medication Sig Dispense Refill - albuterol sulfate hfa 90 mcg/actuation aerosol inhaler INHALE TWO PUFFS BY MOUTH FOUR TIMES A DAY 8.5 g 11 - ALPRAZolam (Xanax) 0.5 MG tablet Take 1 tablet (0.5 mg total) by mouth daily as needed for anxiety. Max Daily Amount: 0.5 mg 15 tablet 0 - calcium-vitamin D 500 mg(1,250mg) -200 unit per tablet Take 1 tablet by mouth 2 (two) times a day with meals. 180 tablet 2 - cetirizine (ZyrTEC) 10 MG tablet Take 1 tablet (10 mg total) by mouth once daily. 90 tablet 1 - chlorhexidine (PERIDEX) 0.12 % mouthwash Use as directed 15 mL in the mouth or throat daily every night for 10 days. Soak the dentures in 15mL of the solution every night. 150 mL 0 - cholecalciferol (VITAMIN D3) 125 mcg (5,000 unit) capsule Take 1 capsule (5,000 Units total) by mouth once daily. 100 capsule 3 - diaper,brief,adult,disposable Misc 1 application by Miscellaneous route 2 (two) times a day. 96 each 5 - fluconazole (Diflucan) 100 MG tablet Take 1 tablet (100 mg total) by mouth once daily for 10 days. Take 200 mg (2 tablets) on day 1. Days 2 through 10 take 100 mg daily. 11 tablet 0 - fluticasone propionate (Flovent Diskus) 250 mcg/actuation Disk with Device Inhale 1 puff into the lungs 2 (two) times a day. 60 each 3 - food supplemt, lactose-reduced (Ensure) Liquid Drink 2 bottles per day. Patient requests strawberry. [id number] mL 3 - hydroCHLOROthiazide (HYDRODIURIL) 25 MG tablet TAKE 1/2 TABLET BY MOUTH DAILY 45 tablet 1 - hydrOXYzine (ATARAX) 50 MG tablet Take 1 tablet (50 mg total) by mouth once nightly as needed for anxiety. 60 tablet 1 - ibandronate (Boniva) 150 mg tablet Take 1 tablet (150 mg total) by mouth every 30 (thirty) days. Take sitting upright once mobnthly on empty stomach with glass of water , dont lay down or eat for full hour 3 tablet 4 - ipratropium-albuteroL (DUO-NEB) 0.5-2.5 mg/3 mL nebulizer NEBULIZE 1 VIAL (3 ML) BY MOUTH FOUR TIMES A DAY 360 mL 1 - lisinopriL (PRINIVIL,ZESTRIL) 5 MG tablet TAKE ONE TABLET BY MOUTH DAILY 90 tablet 1 - methylnaltrexone (Relistor) 150 mg Tablet Take 3 tablets by mouth daily as needed. For opiate induced constipation 90 tablet 1 - [place] [facility] [place] for use for breathing problems for duo-nebs treatments 1 each 0 - miscellaneous medical [place] [facility] [place], tubing and filter for nebulizer machine to be changed every 3 months. 1 each 3 - miscellaneous medical [place] [facility] [place]ence pads, 2 per day 100 each 6 - naloxone 2 mg/actuation [place], Non-Aerosol 2 mg by Nasal route as needed. 1-2 daily PRN. Proceed to ER for evaluation immediately following use. 4 each 1 - omeprazole (PriLOSEC) 40 MG capsule Take 1 capsule (40 mg total) by mouth once daily. 30 capsule 7 - ondansetron (Zofran ODT) [address] 1-2 tablets (4-8 mg total) under the tongue every 8 (eight) hours as needed for nausea / vomiting. 30 tablet 5 - oxyCODONE-acetaminophen (Percocet) 10-325 mg tablet Take 1 tablet by mouth every 6 (six) hours as needed for pain. To Last 30days. No early refills Max Daily Amount: 4 tablets 120 tablet 0 - oxyCODONE-acetaminophen (Percocet) 10-325 mg tablet Take 1 tablet by mouth every 6 (six) hours as needed for pain. To Last 30days. No early refills Max Daily Amount: 4 tablets 120 tablet 0 - potassium chloride (KLOR-CON) 10 MEQ CR tablet TAKE TWO TABLETS BY MOUTH TWICE A DAY 360 tablet 1 - prazosin (MINIPRESS) 2 MG capsule TAKE THREE CAPSULES BY MOUTH EVERY EVENING 270 capsule 1 - tiZANidine (ZANAFLEX) 4 MG tablet Take 1 tablet (4 mg total) by mouth 2 (two) times a day. 60 tablet 3 - topiramate (Topamax) 25 MG tablet Take 2 tablet in the a.m. and 1 tablet in pm 90 tablet 11 - umeclidinium-vilanteroL (Anoro Ellipta) 62.5-25 mcg/actuation Disk with Device Inhale 1 puff into the lungs once daily. 1 each 6 Current Facility-Administered Medications Medication Dose Route Frequency Provider Last Rate Last Admin - pneumococcal 20-valent vaccine (PREVNAR 20) syringe 0.5 mL IntraMuscular Once Mike Ann Jr., MD ALLERGIES Allergies Allergen Reactions - Penicillins Anaphylaxis - Gabapentin Other (See Comments) severe fatigue - Sulfa (Sulfonamide Antibiotics) Other (See Comments) Blisters inside and outside of mouth. - Wellbutrin [Bupropion Hcl] Other (See Comments) Body numbness and tingling - Diazepam Nausea And Vomiting - Varenicline PHYSICAL EXAM Vital Signs: BP 115/67 (BP Location: Right arm) Pulse 78 Wt 49.5 kg (109 lb 3.2 oz) BMI 20.64 kg/m Constitutional: Well nourished, well groomed, NAD. CARDIAC: Regular Rate LUNGS: Breathing nonlabored, no wheezing Neurologic: Alert & oriented x 3, normal gait, no focal deficits noted. Psychiatric: Affect normal, judgment normal, mood normal. Other Affected BA/OS: Chronic Opiate Therapy Risk Mitigation: Risk Assessment Evaluation Assessment Morphine Equivalents 60 Date of Last UDS SOAPP-R Score Behavior Risks none Physical Risks none H/o Illegal Substance Abuse denies H/o Alcohol abuse denies OPIATE RISK ASSESSMENT: LOW (Routine medication monitoring, Annual UDS) Assessment is based treating physicians overall evaluation of multiple factors including MME load, age, comorbidity, medication profile, and social risk factors. The risks/benefits of chronic opiate therapy was discussed with patient including failure of therapy, psychological addiction, physiological dependence, and risk withdrawal syndrome. Warning symptoms of potential opiate overuse/overdose were discussed including sedation, somnolence, and altered mentation were reviewed and I counseled patient these symptoms can occur even when patient have been on a stable dose and also can happen despite following physicians instructions. Alternative therapies were discussed including: non-opiate medications, interventional pain procedures, and Cognitive Behavioral Therapy. After discussing these alternatives with the patient, the patient has opted to decline these alternatives at this time. Patient has tried and failed more conservative measures and were either ineffective or intolerant. In my medical opinion non-opiate therapy is not appropriate to address the patient's medical condition at this time and will continue chronic opiate therapy after having addressed efficacy, adverse side effects, and safety of therapy with the patient. The patient indicates understanding of these issues and agrees with the plan. LIFESTYLE COUNSELING: Time was spent discussing the importance of a home exercise program to promote strength, activity endurance and pain tolerance. Patient was also counseled on avoidance of tobacco products for general health as well as improved chronic pain control. ASSESSMENT AND PLAN Problem List Items Addressed This Visit Cervical radiculopathy Failed back syndrome Lumbar spondylosis - Primary PLAN: 1. Patient is stable functional and meeting the goals of chronic opiate therapy without adverse side effects, misuse, or safety concerns. PDMP was reviewed without redflags or other concerns. 2. I counseled her on the importance of maintaining her activity and low-impact exercise such as walking on a daily basis to promote good health and improve chronic pain management. 3. She did very well with recent Cervical WAQAR 4. PAtient notes that she has increasing right knee pain. She has had prior RIGHT TKA. She notes she also has had prior RIGHT genicular RFA for her knee pain which was very effective 3yrs ago. She requests repeat RFA. I will schedule her for repeat genicular nerve RFA for the right knee 5. I will continue her percocet to 10/325 qid and f/u in 4 weeks The patient indicates understanding of these issues and agrees with the plan. I reviewed the patient's medical information and medical history. I have reviewed the past medical, family, and social history sections including the medications and allergies listed in the above medical record. Patient was counseled that in my practice I do not prescribe chronic opiate therapy in the presence of ongoing illegal substance use. Patient was also counseled that drug screen testing is medically necessary from time to time to help stratify risks associated with chronic opiate therapy by assessing compliance with prescribed medications as well as to identify the presence of illegal substances. Consent for drug screen testing is required for continuation of chronic opiate therapy. Electronically signed by: Isaías Cardenas MD, 12/30/2022 10:52 AM [facility] CHIEF COMPLAINT No chief complaint on file. SUBJECTIVE Ibis Tay is a 67 y.o. female who presents for follow-up of No chief complaint on file. with diagnosis of: 1. Problem List Items Addressed This Visit Cervical radiculopathy Failed back syndrome Lumbar spondylosis - Primary Patient underwent LESI on 12-19-20She notes 50% improvement but continues with low back and joint pain. She notes that she has prior cervical WAQAR with >50% relief lasting 8-10mos. She feels the pain has recurred and would like to proceed with repeat cervical WAQAR She has tried OTC NSAIDs, daily home exercises/stretching she learned through PT without improvement Since patient's last encounter patient reports persistent chronic pain requiring ongoing treatment. Describes the pain as Sharp and Stabbing Patient rates their pain score 7/10 on average and is tolerable. Patient feels that the medication regimen does help maintain the function, mobility, activity tolerance and pain levels at a tolerable level. Patient states that medications changes or injections are not necessary today Patient states that the pain symptoms are stable. Patient denies new or changing pain complaints. Patient notes that the pain is worse with general activity and improved with rest. Patient 's current pain medication regimen has been reviewed with the patient and they note that the medication regimen is effective and reports that they are taking the medication regimen as prescribed. Patient denies running out of medication early or having an excess supply of medications. Other concerns: no new concerns at this time Patient's current pain medications has been reviewed and includes: DRUG FREQ Percocet qid qid Patient's most recent interventional procedures: PROCEDURE DATE % Relief & Duration Interlaminar Lumbar Epidural Steroid Injection L3 - L4 12/19/20 ROS Constitutional: denies dizziness, sedation, or somnolence Psychological: denies altered mentation or euphoria GI: denies significant constipation or diarrhea Musc: denies acute change in numbness, weakness, or tingling of extemities MEDICATIONS Current Outpatient Medications Medication Sig Dispense Refill - albuterol sulfate hfa 90 mcg/actuation aerosol inhaler INHALE TWO PUFFS BY MOUTH FOUR TIMES A DAY 8.5 g 11 - ALPRAZolam (Xanax) 0.5 MG tablet Take 1 tablet (0.5 mg total) by mouth daily as needed for anxiety. Max Daily Amount: 0.5 mg 15 tablet 0 - calcium-vitamin D 500 mg(1,250mg) -200 unit per tablet Take 1 tablet by mouth 2 (two) times a day with meals. 180 tablet 2 - cetirizine (ZyrTEC) 10 MG tablet Take 1 tablet (10 mg total) by mouth once daily. 90 tablet 1 - chlorhexidine (PERIDEX) 0.12 % mouthwash Use as directed 15 mL in the mouth or throat daily every night for 10 days. Soak the dentures in 15mL of the solution every night. 150 mL 0 - cholecalciferol (VITAMIN D3) 125 mcg (5,000 unit) capsule Take 1 capsule (5,000 Units total) by mouth once daily. 100 capsule 3 - diaper,brief,adult,disposable Misc 1 application by Miscellaneous route 2 (two) times a day. 96 each 5 - fluconazole (Diflucan) 100 MG tablet Take 1 tablet (100 mg total) by mouth once daily for 10 days. Take 200 mg (2 tablets) on day 1. Days 2 through 10 take 100 mg daily. 11 tablet 0 - fluticasone propionate (Flovent Diskus) 250 mcg/actuation Disk with Device Inhale 1 puff into the lungs 2 (two) times a day. 60 each 3 - food supplemt, lactose-reduced (Ensure) Liquid Drink 2 bottles per day. Patient requests strawberry. [id number] mL 3 - hydroCHLOROthiazide (HYDRODIURIL) 25 MG tablet TAKE 1/2 TABLET BY MOUTH DAILY 45 tablet 1 - hydrOXYzine (ATARAX) 50 MG tablet Take 1 tablet (50 mg total) by mouth once nightly as needed for anxiety. 60 tablet 1 - ibandronate (Boniva) 150 mg tablet Take 1 tablet (150 mg total) by mouth every 30 (thirty) days. Take sitting upright once mobnthly on empty stomach with glass of water , dont lay down or eat for full hour 3 tablet 4 - ipratropium-albuteroL (DUO-NEB) 0.5-2.5 mg/3 mL nebulizer NEBULIZE 1 VIAL (3 ML) BY MOUTH FOUR TIMES A DAY 360 mL 1 - lisinopriL (PRINIVIL,ZESTRIL) 5 MG tablet TAKE ONE TABLET BY MOUTH DAILY 90 tablet 1 - methylnaltrexone (Relistor) 150 mg Tablet Take 3 tablets by mouth daily as needed. For opiate induced constipation 90 tablet 1 - [place] [facility] [place] for use for breathing problems for duo-nebs treatments 1 each 0 - miscellaneous medical [place] [facility] [place], tubing and filter for nebulizer machine to be changed every 3 months. 1 each 3 - misc[place] medical [place] [facility] [place] incontinence pads, 2 per day 100 each 6 - naloxone 2 mg/actuation [place], Non-Aerosol 2 mg by Nasal route as needed. 1-2 daily PRN. Proceed to ER for evaluation immediately following use. 4 each 1 - omeprazole (PriLOSEC) 40 MG capsule Take 1 capsule (40 mg total) by mouth once daily. 30 capsule 7 - ondansetron (Zofran ODT) [address] 1-2 tablets (4-8 mg total) under the tongue every 8 (eight) hours as needed for nausea / vomiting. 30 tablet 5 - oxyCODONE-acetaminophen (Percocet) 10-325 mg tablet Take 1 tablet by mouth every 6 (six) hours as needed for pain. To Last 30days. No early refills Max Daily Amount: 4 tablets 120 tablet 0 - oxyCODONE-acetaminophen (Percocet) 10-325 mg tablet Take 1 tablet by mouth every 6 (six) hours as needed for pain. To Last 30days. No early refills Max Daily Amount: 4 tablets 120 tablet 0 - potassium chloride (KLOR-CON) 10 MEQ CR tablet TAKE TWO TABLETS BY MOUTH TWICE A DAY 360 tablet 1 - prazosin (MINIPRESS) 2 MG capsule TAKE THREE CAPSULES BY MOUTH EVERY EVENING 270 capsule 1 - tiZANidine (ZANAFLEX) 4 MG tablet Take 1 tablet (4 mg total) by mouth 2 (two) times a day. 60 tablet 3 - topiramate (Topamax) 25 MG tablet Take 2 tablet in the a.m. and 1 tablet in pm 90 tablet 11 - umeclidinium-vilanteroL (Anoro Ellipta) 62.5-25 mcg/actuation Disk with Device Inhale 1 puff into the lungs once daily. 1 each 6 Current Facility-Administered Medications Medication Dose Route Frequency Provider Last Rate Last Admin - pneumococcal 20-valent vaccine (PREVNAR 20) syringe 0.5 mL IntraMuscular Once Mike Ann Jr., MD ALLERGIES Allergies Allergen Reactions - Penicillins Anaphylaxis - Gabapentin Other (See Comments) severe fatigue - Sulfa (Sulfonamide Antibiotics) Other (See Comments) Blisters inside and outside of mouth. - Wellbutrin [Bupropion Hcl] Other (See Comments) Body numbness and tingling - Diazepam Nausea And Vomiting - Varenicline PHYSICAL EXAM Vital Signs: BP 115/67 (BP Location: Right arm) Pulse 78 Wt 49.5 kg (109 lb 3.2 oz) BMI 20.64 kg/m Constitutional: Well nourished, well groomed, NAD. CARDIAC: Regular Rate LUNGS: Breathing nonlabored, no wheezing Neurologic: Alert & oriented x 3, normal gait, no focal deficits noted. Psychiatric: Affect normal, judgment normal, mood normal. Other Affected BA/OS: Chronic Opiate Therapy Risk Mitigation: Risk Assessment Evaluation Assessment Morphine Equivalents 60 Date of Last UDS SOAPP-R Score Behavior Risks none Physical Risks none H/o Illegal Substance Abuse denies H/o Alcohol abuse denies OPIATE RISK ASSESSMENT: LOW (Routine medication monitoring, Annual UDS) Assessment is based treating physicians overall evaluation of multiple factors including MME load, age, comorbidity, medication profile, and social risk factors. The risks/benefits of chronic opiate therapy was discussed with patient including failure of therapy, psychological addiction, physiological dependence, and risk withdrawal syndrome. Warning symptoms of potential opiate overuse/overdose were discussed including sedation, somnolence, and altered mentation were reviewed and I counseled patient these symptoms can occur even when patient have been on a stable dose and also can happen despite following physicians instructions. Alternative therapies were discussed including: non-opiate medications, interventional pain procedures, and Cognitive Behavioral Therapy. After discussing these alternatives with the patient, the patient has opted to decline these alternatives at this time. Patient has tried and failed more conservative measures and were either ineffective or intolerant. In my medical opinion non-opiate therapy is not appropriate to address the patient's medical condition at this time and will continue chronic opiate therapy after having addressed efficacy, adverse side effects, and safety of therapy with the patient. The patient indicates understanding of these issues and agrees with the plan. LIFESTYLE COUNSELING: Time was spent discussing the importance of a home exercise program to promote strength, activity endurance and pain tolerance. Patient was also counseled on avoidance of tobacco products for general health as well as improved chronic pain control. ASSESSMENT AND PLAN Problem List Items Addressed This Visit Cervical radiculopathy Failed back syndrome Lumbar spondylosis - Primary PLAN: 6. Patient is stable functional and meeting the goals of chronic opiate therapy without adverse side effects, misuse, or safety concerns. PDMP was reviewed without redflags or other concerns. 7. I counseled her on the importance of maintaining her activity and low-impact exercise such as walking on a daily basis to promote good health and improve chronic pain management. 8. She notes that she will be undergoing hernia surgery early July 26. I will continue her percocet to 10/325 qid and f/u in 4 weeks The patient indicates understanding of these issues and agrees with the plan. I reviewed the patient's medical information and medical history. I have reviewed the past medical, family, and social history sections including the medications and allergies listed in the above medical record. Patient was counseled that in my practice I do not prescribe chronic opiate therapy in the presence of ongoing illegal substance use. Patient was also counseled that drug screen testing is medically necessary from time to time to help stratify risks associated with chronic opiate therapy by assessing compliance with prescribed medications as well as to identify the presence of illegal substances. Consent for drug screen testing is required for continuation of chronic opiate therapy. Electronically signed by: Isaías Cardenas MD, 12/30/2022 10:52 AM [facility] CHIEF COMPLAINT No chief complaint on file. SUBJECTIVE Ibis Tay is a 67 y.o. female who presents for follow-up of No chief complaint on file. with diagnosis of: 1. Problem List Items Addressed This Visit Cervical radiculopathy Failed back syndrome Lumbar spondylosis - Primary Patient underwent LESI on 12-19-20She notes 50% improvement but continues with low back and joint pain. She notes that she has prior cervical WAQAR with >50% relief lasting 8-10mos. She feels the pain has recurred and would like to proceed with repeat cervical WAQAR She has tried OTC NSAIDs, daily home exercises/stretching she learned through PT without improvement Since patient's last encounter patient reports persistent chronic pain requiring ongoing treatment. Describes the pain as Sharp and Stabbing Patient rates their pain score 7/10 on average and is tolerable. Patient feels that the medication regimen does help maintain the function, mobility, activity tolerance and pain levels at a tolerable level. Patient states that medications changes or injections are not necessary today Patient states that the pain symptoms are stable. Patient denies new or changing pain complaints. Patient notes that the pain is worse with general activity and improved with rest. Patient 's current pain medication regimen has been reviewed with the patient and they note that the medication regimen is effective and reports that they are taking the medication regimen as prescribed. Patient denies running out of medication early or having an excess supply of medications. Other concerns: no new concerns at this time Patient's current pain medications has been reviewed and includes: DRUG FREQ Percocet qid qid Patient's most recent interventional procedures: PROCEDURE DATE % Relief & Duration Interlaminar Lumbar Epidural Steroid Injection L3 - L4 12/19/20 ROS Constitutional: denies dizziness, sedation, or somnolence Psychological: denies altered mentation or euphoria GI: denies significant constipation or diarrhea Musc: denies acute change in numbness, weakness, or tingling of extemities MEDICATIONS Current Outpatient Medications Medication Sig Dispense Refill - albuterol sulfate hfa 90 mcg/actuation aerosol inhaler INHALE TWO PUFFS BY MOUTH FOUR TIMES A DAY 8.5 g 11 - ALPRAZolam (Xanax) 0.5 MG tablet Take 1 tablet (0.5 mg total) by mouth daily as needed for anxiety. Max Daily Amount: 0.5 mg 15 tablet 0 - calcium-vitamin D 500 mg(1,250mg) -200 unit per tablet Take 1 tablet by mouth 2 (two) times a day with meals. 180 tablet 2 - cetirizine (ZyrTEC) 10 MG tablet Take 1 tablet (10 mg total) by mouth once daily. 90 tablet 1 - chlorhexidine (PERIDEX) 0.12 % mouthwash Use as directed 15 mL in the mouth or throat daily every night for 10 days. Soak the dentures in 15mL of the solution every night. 150 mL 0 - cholecalciferol (VITAMIN D3) 125 mcg (5,000 unit) capsule Take 1 capsule (5,000 Units total) by mouth once daily. 100 capsule 3 - diaper,brief,adult,disposable Misc 1 application by Miscellaneous route 2 (two) times a day. 96 each 5 - fluconazole (Diflucan) 100 MG tablet Take 1 tablet (100 mg total) by mouth once daily for 10 days. Take 200 mg (2 tablets) on day 1. Days 2 through 10 take 100 mg daily. 11 tablet 0 - fluticasone propionate (Flovent Diskus) 250 mcg/actuation Disk with Device Inhale 1 puff into the lungs 2 (two) times a day. 60 each 3 - food supplemt, lactose-reduced (Ensure) Liquid Drink 2 bottles per day. Patient requests strawberry. [id number] mL 3 - hydroCHLOROthiazide (HYDRODIURIL) 25 MG tablet TAKE 1/2 TABLET BY MOUTH DAILY 45 tablet 1 - hydrOXYzine (ATARAX) 50 MG tablet Take 1 tablet (50 mg total) by mouth once nightly as needed for anxiety. 60 tablet 1 - ibandronate (Boniva) 150 mg tablet Take 1 tablet (150 mg total) by mouth every 30 (thirty) days. Take sitting upright once mobnthly on empty stomach with glass of water , dont lay down or eat for full hour 3 tablet 4 - ipratropium-albuteroL (DUO-NEB) 0.5-2.5 mg/3 mL nebulizer NEBULIZE 1 VIAL (3 ML) BY MOUTH FOUR TIMES A DAY 360 mL 1 - lisinopriL (PRINIVIL,ZESTRIL) 5 MG tablet TAKE ONE TABLET BY MOUTH DAILY 90 tablet 1 - methylnaltrexone (Relistor) 150 mg Tablet Take 3 tablets by mouth daily as needed. For opiate induced constipation 90 tablet 1 - [place] [facility] [place] for use for breathing problems for duo-nebs treatments 1 each 0 - miscellaneous medical [place] [facility] [place], tubing and filter for nebulizer machine to be changed every 3 months. 1 each 3 - miscellaneous medical [place] [facility] [place] incontinence pads, 2 per day 100 each 6 - naloxone 2 mg/actuation [place], Non-Aerosol 2 mg by Nasal route as needed. 1-2 daily PRN. Proceed to ER for evaluation immediately following use. 4 each 1 - omeprazole (PriLOSEC) 40 MG capsule Take 1 capsule (40 mg total) by mouth once daily. 30 capsule 7 - ondansetron (Zofran ODT) [address] 1-2 tablets (4-8 mg total) under the tongue every 8 (eight) hours as needed for nausea / vomiting. 30 tablet 5 - oxyCODONE-acetaminophen (Percocet) 10-325 mg tablet Take 1 tablet by mouth every 6 (six) hours as needed for pain. To Last 30days. No early refills Max Daily Amount: 4 tablets 120 tablet 0 - oxyCODONE-acetaminophen (Percocet) 10-325 mg tablet Take 1 tablet by mouth every 6 (six) hours as needed for pain. To Last 30days. No early refills Max Daily Amount: 4 tablets 120 tablet 0 - potassium chloride (KLOR-CON) 10 MEQ CR tablet TAKE TWO TABLETS BY MOUTH TWICE A DAY 360 tablet 1 - prazosin (MINIPRESS) 2 MG capsule TAKE THREE CAPSULES BY MOUTH EVERY EVENING 270 capsule 1 - tiZANidine (ZANAFLEX) 4 MG tablet Take 1 tablet (4 mg total) by mouth 2 (two) times a day. 60 tablet 3 - topiramate (Topamax) 25 MG tablet Take 2 tablet in the a.m. and 1 tablet in pm 90 tablet 11 - umeclidinium-vilanteroL (Anoro Ellipta) 62.5-25 mcg/actuation Disk with Device Inhale 1 puff into the lungs once daily. 1 each 6 Current Facility-Administered Medications Medication Dose Route Frequency Provider Last Rate Last Admin - pneumococcal 20-valent vaccine (PREVNAR 20) syringe 0.5 mL IntraMuscular Once Mike Ann Jr., MD ALLERGIES Allergies Allergen Reactions - Penicillins Anaphylaxis - Gabapentin Other (See Comments) severe fatigue - Sulfa (Sulfonamide Antibiotics) Other (See Comments) Blisters inside and outside of mouth. - Wellbutrin [Bupropion Hcl] Other (See Comments) Body numbness and tingling - Diazepam Nausea And Vomiting - Varenicline PHYSICAL EXAM Vital Signs: BP 115/67 (BP Location: Right arm) Pulse 78 Wt 49.5 kg (109 lb 3.2 oz) BMI 20.64 kg/m Constitutional: Well nourished, well groomed, NAD. CARDIAC: Regular Rate LUNGS: Breathing nonlabored, no wheezing Neurologic: Alert & oriented x 3, normal gait, no focal deficits noted. Psychiatric: Affect normal, judgment normal, mood normal. Other Affected BA/OS: Chronic Opiate Therapy Risk Mitigation: Risk Assessment Evaluation Assessment Morphine Equivalents 60 Date of Last UDS SOAPP-R Score Behavior Risks none Physical Risks none H/o Illegal Substance Abuse denies H/o Alcohol abuse denies OPIATE RISK ASSESSMENT: LOW (Routine medication monitoring, Annual UDS) Assessment is based treating physicians overall evaluation of multiple factors including MME load, age, comorbidity, medication profile, and social risk factors. The risks/benefits of chronic opiate therapy was discussed with patient including failure of therapy, psychological addiction, physiological dependence, and risk withdrawal syndrome. Warning symptoms of potential opiate overuse/overdose were discussed including sedation, somnolence, and altered mentation were reviewed and I counseled patient these symptoms can occur even when patient have been on a stable dose and also can happen despite following physicians instructions. Alternative therapies were discussed including: non-opiate medications, interventional pain procedures, and Cognitive Behavioral Therapy. After discussing these alternatives with the patient, the patient has opted to decline these alternatives at this time. Patient has tried and failed more conservative measures and were either ineffective or intolerant. In my medical opinion non-opiate therapy is not appropriate to address the patient's medical condition at this time and will continue chronic opiate therapy after having addressed efficacy, adverse side effects, and safety of therapy with the patient. The patient indicates understanding of these issues and agrees with the plan. LIFESTYLE COUNSELING: Time was spent discussing the importance of a home exercise program to promote strength, activity endurance and pain tolerance. Patient was also counseled on avoidance of tobacco products for general health as well as improved chronic pain control. ASSESSMENT AND PLAN Problem List Items Addressed This Visit Cervical radiculopathy Failed back syndrome Lumbar spondylosis - Primary PLAN: 10. Patient is stable functional and meeting the goals of chronic opiate therapy without adverse side effects, misuse, or safety concerns. PDMP was reviewed without redflags or other concerns. 11. I counseled her on the importance of maintaining her activity and low-impact exercise such as walking on a daily basis to promote good health and improve chronic pain management. 12. She did very well with recent Cervical WAQAR 13. PAtient notes that she has increasing right knee pain. She has had prior RIGHT TKA. She notes she also has had prior RIGHT genicular RFA for her knee pain which was very effective 3yrs ago. She requests repeat RFA. I will schedule her for repeat genicular nerve RFA for the right knee 14. I will continue her percocet to 10/325 qid and f/u in 4 weeks The patient indicates understanding of these issues and agrees with the plan. I reviewed the patient's medical information and medical history. I have reviewed the past medical, family, and social history sections including the medications and allergies listed in the above medical record. Patient was counseled that in my practice I do not prescribe chronic opiate therapy in the presence of ongoing illegal substance use. Patient was also counseled that drug screen testing is medically necessary from time to time to help stratify risks associated with chronic opiate therapy by assessing compliance with prescribed medications as well as to identify the presence of illegal substances. Consent for drug screen testing is required for continuation of chronic opiate therapy. Electronically signed by: Isaías Cardenas MD, 12/30/2022 10:52 AM [facility] CHIEF COMPLAINT No chief complaint on file. SUBJECTIVE Ibis Tay is a 67 y.o. female who presents for follow-up of No chief complaint on file. with diagnosis of: 1. Problem List Items Addressed This Visit Cervical radiculopathy Failed back syndrome Lumbar spondylosis - Primary Patient underwent LESI on 12-19-20She notes 50% improvement but continues with low back and joint pain. She notes that she has prior cervical WAQAR with >50% relief lasting 8-10mos. She feels the pain has recurred and would like to proceed with repeat cervical WAQAR She has tried OTC NSAIDs, daily home exercises/stretching she learned through PT without improvement Since patient's last encounter patient reports persistent chronic pain requiring ongoing treatment. Describes the pain as Sharp and Stabbing Patient rates their pain score 7/10 on average and is tolerable. Patient feels that the medication regimen does help maintain the function, mobility, activity tolerance and pain levels at a tolerable level. Patient states that medications changes or injections are not necessary today Patient states that the pain symptoms are stable. Patient denies new or changing pain complaints. Patient notes that the pain is worse with general activity and improved with rest. Patient 's current pain medication regimen has been reviewed with the patient and they note that the medication regimen is effective and reports that they are taking the medication regimen as prescribed. Patient denies running out of medication early or having an excess supply of medications. Other concerns: no new concerns at this time Patient's current pain medications has been reviewed and includes: DRUG FREQ Percocet 10/325 qid qid Patient's most recent interventional procedures: PROCEDURE DATE % Relief & Duration Interlaminar Lumbar Epidural Steroid Injection L3 - L4 12/19/20 ROS Constitutional: denies dizziness, sedation, or somnolence Psychological: denies altered mentation or euphoria GI: denies significant constipation or diarrhea Musc: denies acute change in numbness, weakness, or tingling of extemities MEDICATIONS Current Outpatient Medications Medication Sig Dispense Refill - albuterol sulfate hfa 90 mcg/actuation aerosol inhaler INHALE TWO PUFFS BY MOUTH FOUR TIMES A DAY 8.5 g 11 - ALPRAZolam (Xanax) 0.5 MG tablet Take 1 tablet (0.5 mg total) by mouth daily as needed for anxiety. Max Daily Amount: 0.5 mg 15 tablet 0 - calcium-vitamin D 500 mg(1,250mg) -200 unit per tablet Take 1 tablet by mouth 2 (two) times a day with meals. 180 tablet 2 - cetirizine (ZyrTEC) 10 MG tablet Take 1 tablet (10 mg total) by mouth once daily. 90 tablet 1 - chlorhexidine (PERIDEX) 0.12 % mouthwash Use as directed 15 mL in the mouth or throat daily every night for 10 days. Soak the dentures in 15mL of the solution every night. 150 mL 0 - cholecalciferol (VITAMIN D3) 125 mcg (5,000 unit) capsule Take 1 capsule (5,000 Units total) by mouth once daily. 100 capsule 3 - diaper,brief,adult,disposable Misc 1 application by Miscellaneous route 2 (two) times a day. 96 each 5 - fluconazole (Diflucan) 100 MG tablet Take 1 tablet (100 mg total) by mouth once daily for 10 days. Take 200 mg (2 tablets) on day 1. Days 2 through 10 take 100 mg daily. 11 tablet 0 - fluticasone propionate (Flovent Diskus) 250 mcg/actuation Disk with Device Inhale 1 puff into the lungs 2 (two) times a day. 60 each 3 - food supplemt, lactose-reduced (Ensure) Liquid Drink 2 bottles per day. Patient requests strawberry. 44616 mL 3 - hydroCHLOROthiazide (HYDRODIURIL) 25 MG tablet TAKE 1/2 TABLET BY MOUTH DAILY 45 tablet 1 - hydrOXYzine (ATARAX) 50 MG tablet Take 1 tablet (50 mg total) by mouth once nightly as needed for anxiety. 60 tablet 1 - ibandronate (Boniva) 150 mg tablet Take 1 tablet (150 mg total) by mouth every 30 (thirty) days. Take sitting upright once mobnthly on empty stomach with glass of water , dont lay down or eat for full hour 3 tablet 4 - ipratropium-albuteroL (DUO-NEB) 0.5-2.5 mg/3 mL nebulizer NEBULIZE 1 VIAL (3 ML) BY MOUTH FOUR TIMES A DAY 360 mL 1 - lisinopriL (PRINIVIL,ZESTRIL) 5 MG tablet TAKE ONE TABLET BY MOUTH DAILY 90 tablet 1 - methylnaltrexone (Relistor) 150 mg Tablet Take 3 tablets by mouth daily as needed. For opiate induced constipation 90 tablet 1 - [place] [facility] [place] for use for breathing problems for duo-nebs treatments 1 each 0 - miscellaneous medical [place] [facility] [place], tubing and filter for nebulizer machine to be changed every 3 months. 1 each 3 - misc[place] medical [place] [facility] [place] incontinence pads, 2 per day 100 each 6 - naloxone 2 mg/actuation [place], Non-Aerosol 2 mg by Nasal route as needed. 1-2 daily PRN. Proceed to ER for evaluation immediately following use. 4 each 1 - omeprazole (PriLOSEC) 40 MG capsule Take 1 capsule (40 mg total) by mouth once daily. 30 capsule 7 - ondansetron (Zofran ODT) [address] 1-2 tablets (4-8 mg total) under the tongue every 8 (eight) hours as needed for nausea / vomiting. 30 tablet 5 - oxyCODONE-acetaminophen (Percocet) 10-325 mg tablet Take 1 tablet by mouth every 6 (six) hours as needed for pain. To Last 30days. No early refills Max Daily Amount: 4 tablets 120 tablet 0 - oxyCODONE-acetaminophen (Percocet) 10-325 mg tablet Take 1 tablet by mouth every 6 (six) hours as needed for pain. To Last 30days. No early refills Max Daily Amount: 4 tablets 120 tablet 0 - potassium chloride (KLOR-CON) 10 MEQ CR tablet TAKE TWO TABLETS BY MOUTH TWICE A DAY 360 tablet 1 - prazosin (MINIPRESS) 2 MG capsule TAKE THREE CAPSULES BY MOUTH EVERY EVENING 270 capsule 1 - tiZANidine (ZANAFLEX) 4 MG tablet Take 1 tablet (4 mg total) by mouth 2 (two) times a day. 60 tablet 3 - topiramate (Topamax) 25 MG tablet Take 2 tablet in the a.m. and 1 tablet in pm 90 tablet 11 - umeclidinium-vilanteroL (Anoro Ellipta) 62.5-25 mcg/actuation Disk with Device Inhale 1 puff into the lungs once daily. 1 each 6 Current Facility-Administered Medications Medication Dose Route Frequency Provider Last Rate Last Admin - pneumococcal 20-valent vaccine (PREVNAR 20) syringe 0.5 mL IntraMuscular Once Mike Ann Jr., MD ALLERGIES Allergies Allergen Reactions - Penicillins Anaphylaxis - Gabapentin Other (See Comments) severe fatigue - Sulfa (Sulfonamide Antibiotics) Other (See Comments) Blisters inside and outside of mouth. - Wellbutrin [Bupropion Hcl] Other (See Comments) Body numbness and tingling - Diazepam Nausea And Vomiting - Varenicline PHYSICAL EXAM Vital Signs: BP 115/67 (BP Location: Right arm) Pulse 78 Wt 49.5 kg (109 lb 3.2 oz) BMI 20.64 kg/m Constitutional: Well nourished, well groomed, NAD. CARDIAC: Regular Rate LUNGS: Breathing nonlabored, no wheezing Neurologic: Alert & oriented x 3, normal gait, no focal deficits noted. Psychiatric: Affect normal, judgment normal, mood normal. Other Affected BA/OS: Chronic Opiate Therapy Risk Mitigation: Risk Assessment Evaluation Assessment Morphine Equivalents 60 Date of Last UDS SOAPP-R Score Behavior Risks none Physical Risks none H/o Illegal Substance Abuse denies H/o Alcohol abuse denies OPIATE RISK ASSESSMENT: LOW (Routine medication monitoring, Annual UDS) Assessment is based treating physicians overall evaluation of multiple factors including MME load, age, comorbidity, medication profile, and social risk factors. The risks/benefits of chronic opiate therapy was discussed with patient including failure of therapy, psychological addiction, physiological dependence, and risk withdrawal syndrome. Warning symptoms of potential opiate overuse/overdose were discussed including sedation, somnolence, and altered mentation were reviewed and I counseled patient these symptoms can occur even when patient have been on a stable dose and also can happen despite following physicians instructions. Alternative therapies were discussed including: non-opiate medications, interventional pain procedures, and Cognitive Behavioral Therapy. After discussing these alternatives with the patient, the patient has opted to decline these alternatives at this time. Patient has tried and failed more conservative measures and were either ineffective or intolerant. In my medical opinion non-opiate therapy is not appropriate to address the patient's medical condition at this time and will continue chronic opiate therapy after having addressed efficacy, adverse side effects, and safety of therapy with the patient. The patient indicates understanding of these issues and agrees with the plan. LIFESTYLE COUNSELING: Time was spent discussing the importance of a home exercise program to promote strength, activity endurance and pain tolerance. Patient was also counseled on avoidance of tobacco products for general health as well as improved chronic pain control. ASSESSMENT AND PLAN Problem List Items Addressed This Visit Cervical radiculopathy Failed back syndrome Lumbar spondylosis - Primary PLAN: 15. Patient is stable functional and meeting the goals of chronic opiate therapy without adverse side effects, misuse, or safety concerns. PDMP was reviewed without redflags or other concerns. 16. I counseled her on the importance of maintaining her activity and low-impact exercise such as walking on a daily basis to promote good health and improve chronic pain management. 17. She notes that she will be undergoing hernia surgery early August 04. I will continue her percocet to 10/325 qid and f/u in 4 weeks The patient indicates understanding of these issues and agrees with the plan. I reviewed the patient's medical information and medical history. I have reviewed the past medical, family, and social history sections including the medications and allergies listed in the above medical record. Patient was counseled that in my practice I do not prescribe chronic opiate therapy in the presence of ongoing illegal substance use. Patient was also counseled that drug screen testing is medically necessary from time to time to help stratify risks associated with chronic opiate therapy by assessing compliance with prescribed medications as well as to identify the presence of illegal substances. Consent for drug screen testing is required for continuation of chronic opiate therapy. Electronically signed by: Isaías Cardenas MD, 12/30/2022 10:52 AM [facility] 2022-12-23 17:35:00 PRIORITY CARE OFFICE VISIT PROGRESS NOTE Service date: 12/23/2022 5:38 PM Patient name: Ibis Tay Patient : 1955 Primary care provider: Mike Ann Jr, MD Assessment/Plan: Problem List Items Addressed This Visit None Visit Diagnoses Denture stomatitis - Primary Relevant Medications fluconazole (Diflucan) 100 MG tablet quvvgf-fwqgcfbue-daj,al-simeth [id number] mg/30mL Mouthwash chlorhexidine (PERIDEX) 0.12 % mouthwash Sore throat Relevant Orders POCT Nidia Strep A (Completed) POCT Strep A Negative. Discussed oral lozenges the patient. Patient did not feel that she would be able to tolerate the oral lozenges and preferred to take the oral fluconazole tablets for treatment. Fluconazole 100 mg tablets-take 2 tablets (200 mg) on day 1. Days 2 through 10 take 100 mg daily. Diphenhydramine/lidocaine/mag/al-si meth oral solution- swish and gargle a solution for 30 seconds and then spit. Do not eat or drink for 30 minutes after using the solution. You may use the solution every 4 hours as needed for mouth pain. Chlorhexidine 0.12% mouthwash-soak your dentures in 15 mL of the solution every night x10 days. [place] the dentures thoroughly every night and in the morning. If no improvement in symptoms in 4-5 days please follow-up with your primary care physician. Parent/Patient was provided the After Visit Summary (AVS) which included pertinent education material, including when to seek urgent/emergent care. Parent/Patient verbalized understanding and is in agreement with treatment plan. Denies further questions or concerns. Subjective: Patient ID: Ibis is a 67 y.o. female. Chief Complaint Patient presents with - Sore Throat - Oral Pain Willie Baumann is a 67-year-old female who presents to the clinic today with complaints of mouth sores and mouth pain that started 2 to 3 days ago. She states that it is extremely painful and feels like a burning sensation in her mouth and throat when she tries to eat or drink. She states it does not matter whether the food is hard or soft or if liquids are cold or hot, all of them cause the pain. She has not had any trouble swallowing or issues with her dentures. She states she has a history of GERD and the symptoms feel different. She reports that she has good oral care routine and uses zqes-jeb-emrkdyj tablets to clean her dentures. She is on prescription Percocet for chronic pain. She has been having to take OTC Tylenol in addition to her Percocet for the pain. Review of Systems Constitutional: Negative. HENT: Positive for mouth sores and sore throat (pain and burning in mouth and throat). Negative for dental problem, drooling and trouble swallowing. Objective: Vitals: 12/23/22 1740 BP: 104/62 BP Location: Left arm Patient Position: Sitting Pulse: 90 Resp: 14 Temp: 36.3 C (97.4 F) TempSrc: Temporal Artery (forehead) SpO2: 95% Weight: 49.9 kg (110 lb) Height: 154.9 cm (5' 0.98) Body mass index is 20.8 kg/m . Physical Exam Vitals reviewed. Constitutional: Appearance: Normal appearance. HENT: Right Ear: Tympanic membrane, ear canal and external ear normal. Left Ear: Tympanic membrane, ear canal and external ear normal. Mouth/Throat: Lips: [place]. Mouth: Mucous membranes are moist. Oral lesions present. Dentition: Has dentures. Dental tenderness present. Tongue: No lesions. Palate: Lesions (erythematous) present. Pharynx: Oropharynx is clear. Uvula midline. Posterior oropharyngeal erythema present. No pharyngeal swelling, oropharyngeal exudate or uvula swelling. Comments: Patient has multiple erythematous lesions noted to her palate, cheeks, and gumline underneath her dentures. There are some white plaques noted to the buccal mucosa. Cardiovascular: Rate and Rhythm: Normal rate and regular rhythm. Heart sounds: Normal heart sounds. Pulmonary: Effort: Pulmonary effort is normal. Breath sounds: Normal breath sounds. Neurological: Mental Status: She is alert and oriented to person, place, and time. Psychiatric: Mood and Affect: Mood normal. Behavior: Behavior normal. . This note was compiled in part using Pegg'd voice recognition technology. Despite the note being reviewed and due to limitation of the technology it may contain typographical, grammatical, and voice recognition errors. [facility] 2022-12-02 11:50:00 [facility] CHIEF COMPLAINT No chief complaint on file. SUBJECTIVE Ibis Jose Angel An is a 67 y.o. female who presents for follow-up of No chief complaint on file. with diagnosis of: 1. Problem List Items Addressed This Visit Cervical radiculopathy - Primary Failed back syndrome Lumbar spondylosis Patient underwent LESI on 12-19-20She notes 50% improvement but continues with low back and joint pain. She notes that she has prior cervical WAQAR with >50% relief lasting 8-10mos. She feels the pain has recurred and would like to proceed with repeat cervical WAQAR She has tried OTC NSAIDs, daily home exercises/stretching she learned through PT without improvement Since patient's last encounter patient reports persistent chronic pain requiring ongoing treatment. Describes the pain as Sharp and Stabbing Patient rates their pain score 7/10 on average and is tolerable. Patient feels that the medication regimen does help maintain the function, mobility, activity tolerance and pain levels at a tolerable level. Patient states that medications changes or injections are not necessary today Patient states that the pain symptoms are stable. Patient denies new or changing pain complaints. Patient notes that the pain is worse with general activity and improved with rest. Patient 's current pain medication regimen has been reviewed with the patient and they note that the medication regimen is effective and reports that they are taking the medication regimen as prescribed. Patient denies running out of medication early or having an excess supply of medications. Other concerns: no new concerns at this time Patient's current pain medications has been reviewed and includes: DRUG FREQ Percocet qid qid Patient's most recent interventional procedures: PROCEDURE DATE % Relief & Duration Interlaminar Lumbar Epidural Steroid Injection L3 - L4 12/19/20 ROS Constitutional: denies dizziness, sedation, or somnolence Psychological: denies altered mentation or euphoria GI: denies significant constipation or diarrhea Musc: denies acute change in numbness, weakness, or tingling of extemities MEDICATIONS Current Outpatient Medications Medication Sig Dispense Refill - albuterol sulfate hfa 90 mcg/actuation aerosol inhaler INHALE TWO PUFFS BY MOUTH FOUR TIMES A DAY 8.5 g 11 - ALPRAZolam (Xanax) 0.5 MG tablet Take 1 tablet (0.5 mg total) by mouth daily as needed for anxiety. Max Daily Amount: 0.5 mg 20 tablet 0 - calcium-vitamin D 500 mg(1,250mg) -200 unit per tablet Take 1 tablet by mouth 2 (two) times a day with meals. 180 tablet 2 - cetirizine (ZyrTEC) 10 MG tablet Take 1 tablet (10 mg total) by mouth once daily. 90 tablet 1 - cholecalciferol (VITAMIN D3) 125 mcg (5,000 unit) capsule Take 1 capsule (5,000 Units total) by mouth once daily. 100 capsule 3 - diaper,brief,adult,disposable Misc 1 application by Miscellaneous route 2 (two) times a day. 96 each 5 - fluticasone propionate (Flovent Diskus) 250 mcg/actuation Disk with Device Inhale 1 puff into the lungs 2 (two) times a day. 60 each 3 - food supplemt, lactose-reduced (Ensure) Liquid Drink 2 bottles per day. Patient requests strawberry. [id number] mL 3 - hydroCHLOROthiazide (HYDRODIURIL) 25 MG tablet TAKE 1/2 TABLET BY MOUTH DAILY 45 tablet 1 - hydrOXYzine (ATARAX) 25 MG tablet Take 1 tablet (25 mg total) by mouth daily every night. 30 tablet 1 - ibandronate (Boniva) 150 mg tablet Take 1 tablet (150 mg total) by mouth every 30 (thirty) days. Take sitting upright once mobnthly on empty stomach with glass of water , dont lay down or eat for full hour 3 tablet 4 - ipratropium-albuteroL (DUO-NEB) 0.5-2.5 mg/3 mL nebulizer NEBULIZE 1 VIAL (3 ML) BY MOUTH FOUR TIMES A DAY 360 mL 1 - lisinopriL (PRINIVIL,ZESTRIL) 5 MG tablet TAKE ONE TABLET BY MOUTH DAILY 90 tablet 1 - methylnaltrexone (Relistor) 150 mg Tablet Take 3 tablets by mouth daily as needed. For opiate induced constipation 90 tablet 1 - [place] [facility] [place] for use for breathing problems for duo-nebs treatments 1 each 0 - miscellaneous medical [place] [facility] [place], tubing and filter for nebulizer machine to be changed every 3 months. 1 each 3 - miscellaneous medical [place] [facility] [place] incontinence pads, 2 per day 100 each 6 - naloxone 2 mg/actuation [place], Non-Aerosol 2 mg by Nasal route as needed. 1-2 daily PRN. Proceed to ER for evaluation immediately following use. 4 each 1 - omeprazole (PriLOSEC) 40 MG capsule Take 1 capsule (40 mg total) by mouth once daily. 30 capsule 7 - ondansetron (Zofran ODT) [address] 1-2 tablets (4-8 mg total) under the tongue every 8 (eight) hours as needed for nausea / vomiting. 30 tablet 5 - oxyCODONE-acetaminophen (Percocet) 10-325 mg tablet Take 1 tablet by mouth every 6 (six) hours as needed for pain. To Last 30days. No early refills Max Daily Amount: 4 tablets 120 tablet 0 - oxyCODONE-acetaminophen (Percocet) 10-325 mg tablet Take 1 tablet by mouth every 6 (six) hours as needed for pain. To Last 30days. No early refills Max Daily Amount: 4 tablets 120 tablet 0 - potassium chloride (KLOR-CON) 10 MEQ CR tablet TAKE TWO TABLETS BY MOUTH TWICE A DAY 360 tablet 1 - prazosin (MINIPRESS) 2 MG capsule TAKE THREE CAPSULES BY MOUTH EVERY EVENING 270 capsule 1 - tiZANidine (ZANAFLEX) 4 MG tablet Take 1 tablet (4 mg total) by mouth 2 (two) times a day. 60 tablet 3 - topiramate (Topamax) 25 MG tablet Take 2 tablet in the a.m. and 1 tablet in pm 90 tablet 11 - umeclidinium-vilanteroL (Anoro Ellipta) 62.5-25 mcg/actuation Disk with Device Inhale 1 puff into the lungs once daily. 1 each 6 Current Facility-Administered Medications Medication Dose Route Frequency Provider Last Rate Last Admin - pneumococcal 20-valent vaccine (PREVNAR 20) syringe 0.5 mL IntraMuscular Once Mike Ann Jr., MD ALLERGIES Allergies Allergen Reactions - Penicillins Anaphylaxis - Gabapentin Other (See Comments) severe fatigue - Sulfa (Sulfonamide Antibiotics) Other (See Comments) Blisters inside and outside of mouth. - Wellbutrin [Bupropion Hcl] Other (See Comments) Body numbness and tingling - Diazepam Nausea And Vomiting - Varenicline PHYSICAL EXAM Vital Signs: Wt 49.9 kg (110 lb) BMI 20.80 kg/m Constitutional: Well nourished, well groomed, NAD. CARDIAC: Regular Rate LUNGS: Breathing nonlabored, no wheezing Neurologic: Alert & oriented x 3, normal gait, no focal deficits noted. Psychiatric: Affect normal, judgment normal, mood normal. Other Affected BA/OS: Chronic Opiate Therapy Risk Mitigation: Risk Assessment Evaluation Assessment Morphine Equivalents 60 Date of Last UDS SOAPP-R Score Behavior Risks none Physical Risks none H/o Illegal Substance Abuse denies H/o Alcohol abuse denies OPIATE RISK ASSESSMENT: LOW (Routine medication monitoring, Annual UDS) Assessment is based treating physicians overall evaluation of multiple factors including MME load, age, comorbidity, medication profile, and social risk factors. The risks/benefits of chronic opiate therapy was discussed with patient including failure of therapy, psychological addiction, physiological dependence, and risk withdrawal syndrome. Warning symptoms of potential opiate overuse/overdose were discussed including sedation, somnolence, and altered mentation were reviewed and I counseled patient these symptoms can occur even when patient have been on a stable dose and also can happen despite following physicians instructions. Alternative therapies were discussed including: non-opiate medications, interventional pain procedures, and Cognitive Behavioral Therapy. After discussing these alternatives with the patient, the patient has opted to decline these alternatives at this time. Patient has tried and failed more conservative measures and were either ineffective or intolerant. In my medical opinion non-opiate therapy is not appropriate to address the patient's medical condition at this time and will continue chronic opiate therapy after having addressed efficacy, adverse side effects, and safety of therapy with the patient. The patient indicates understanding of these issues and agrees with the plan. LIFESTYLE COUNSELING: Time was spent discussing the importance of a home exercise program to promote strength, activity endurance and pain tolerance. Patient was also counseled on avoidance of tobacco products for general health as well as improved chronic pain control. ASSESSMENT AND PLAN Problem List Items Addressed This Visit Cervical radiculopathy - Primary Failed back syndrome Lumbar spondylosis PLAN: 1. Patient is stable functional and meeting the goals of chronic opiate therapy without adverse side effects, misuse, or safety concerns. PDMP was reviewed without redflags or other concerns. 2. I counseled her on the importance of maintaining her activity and low-impact exercise such as walking on a daily basis to promote good health and improve chronic pain management. 3. She did very well with recent Cervical WAQAR 4. PAtient notes that she has increasing right knee pain. She has had prior RIGHT TKA. She notes she also has had prior RIGHT genicular RFA for her knee pain which was very effective 3yrs ago. She requests repeat RFA. I will schedule her for repeat genicular nerve RFA for the right knee 5. I will continue her percocet to 10/325 qid and f/u in 4 weeks The patient indicates understanding of these issues and agrees with the plan. I reviewed the patient's medical information and medical history. I have reviewed the past medical, family, and social history sections including the medications and allergies listed in the above medical record. Patient was counseled that in my practice I do not prescribe chronic opiate therapy in the presence of ongoing illegal substance use. Patient was also counseled that drug screen testing is medically necessary from time to time to help stratify risks associated with chronic opiate therapy by assessing compliance with prescribed medications as well as to identify the presence of illegal substances. Consent for drug screen testing is required for continuation of chronic opiate therapy. Electronically signed by: Isaías Cardenas MD, 12/02/2022 12:16 PM [facility] CHIEF COMPLAINT No chief complaint on file. SUBJECTIVE Ibis Tay is a 67 y.o. female who presents for follow-up of No chief complaint on file. with diagnosis of: 1. Problem List Items Addressed This Visit Cervical radiculopathy - Primary Failed back syndrome Lumbar spondylosis Patient underwent LESI on 12-19-20She notes 50% improvement but continues with low back and joint pain. She notes that she has prior cervical WAQAR with >50% relief lasting 8-10mos. She feels the pain has recurred and would like to proceed with repeat cervical WAQAR She has tried OTC NSAIDs, daily home exercises/stretching she learned through PT without improvement Since patient's last encounter patient reports persistent chronic pain requiring ongoing treatment. Describes the pain as Sharp and Stabbing Patient rates their pain score 7/10 on average and is tolerable. Patient feels that the medication regimen does help maintain the function, mobility, activity tolerance and pain levels at a tolerable level. Patient states that medications changes or injections are not necessary today Patient states that the pain symptoms are stable. Patient denies new or changing pain complaints. Patient notes that the pain is worse with general activity and improved with rest. Patient 's current pain medication regimen has been reviewed with the patient and they note that the medication regimen is effective and reports that they are taking the medication regimen as prescribed. Patient denies running out of medication early or having an excess supply of medications. Other concerns: no new concerns at this time Patient's current pain medications has been reviewed and includes: DRUG FREQ Percocet qid qid Patient's most recent interventional procedures: PROCEDURE DATE % Relief & Duration Interlaminar Lumbar Epidural Steroid Injection L3 - L4 12/19/20 ROS Constitutional: denies dizziness, sedation, or somnolence Psychological: denies altered mentation or euphoria GI: denies significant constipation or diarrhea Musc: denies acute change in numbness, weakness, or tingling of extemities MEDICATIONS Current Outpatient Medications Medication Sig Dispense Refill - albuterol sulfate hfa 90 mcg/actuation aerosol inhaler INHALE TWO PUFFS BY MOUTH FOUR TIMES A DAY 8.5 g 11 - ALPRAZolam (Xanax) 0.5 MG tablet Take 1 tablet (0.5 mg total) by mouth daily as needed for anxiety. Max Daily Amount: 0.5 mg 20 tablet 0 - calcium-vitamin D 500 mg(1,250mg) -200 unit per tablet Take 1 tablet by mouth 2 (two) times a day with meals. 180 tablet 2 - cetirizine (ZyrTEC) 10 MG tablet Take 1 tablet (10 mg total) by mouth once daily. 90 tablet 1 - cholecalciferol (VITAMIN D3) 125 mcg (5,000 unit) capsule Take 1 capsule (5,000 Units total) by mouth once daily. 100 capsule 3 - diaper,brief,adult,disposable Misc 1 application by Miscellaneous route 2 (two) times a day. 96 each 5 - fluticasone propionate (Flovent Diskus) 250 mcg/actuation Disk with Device Inhale 1 puff into the lungs 2 (two) times a day. 60 each 3 - food supplemt, lactose-reduced (Ensure) Liquid Drink 2 bottles per day. Patient requests strawberry. [id number] mL 3 - hydroCHLOROthiazide (HYDRODIURIL) 25 MG tablet TAKE 1/2 TABLET BY MOUTH DAILY 45 tablet 1 - hydrOXYzine (ATARAX) 25 MG tablet Take 1 tablet (25 mg total) by mouth daily every night. 30 tablet 1 - ibandronate (Boniva) 150 mg tablet Take 1 tablet (150 mg total) by mouth every 30 (thirty) days. Take sitting upright once mobnthly on empty stomach with glass of water , dont lay down or eat for full hour 3 tablet 4 - ipratropium-albuteroL (DUO-NEB) 0.5-2.5 mg/3 mL nebulizer NEBULIZE 1 VIAL (3 ML) BY MOUTH FOUR TIMES A DAY 360 mL 1 - lisinopriL (PRINIVIL,ZESTRIL) 5 MG tablet TAKE ONE TABLET BY MOUTH DAILY 90 tablet 1 - methylnaltrexone (Relistor) 150 mg Tablet Take 3 tablets by mouth daily as needed. For opiate induced constipation 90 tablet 1 - [place] [facility] [place] for use for breathing problems for duo-nebs treatments 1 each 0 - miscellaneous medical supply [facility] [place] mask, tubing and filter for nebulizer machine to be changed every 3 months. 1 each 3 - miscellaneous medical [place] [facility] [place] incontinence pads, 2 per day 100 each 6 - naloxone 2 mg/actuation [place], Non-Aerosol 2 mg by Nasal route as needed. 1-2 daily PRN. Proceed to ER for evaluation immediately following use. 4 each 1 - omeprazole (PriLOSEC) 40 MG capsule Take 1 capsule (40 mg total) by mouth once daily. 30 capsule 7 - ondansetron (Zofran ODT) [address] 1-2 tablets (4-8 mg total) under the tongue every 8 (eight) hours as needed for nausea / vomiting. 30 tablet 5 - oxyCODONE-acetaminophen (Percocet) 10-325 mg tablet Take 1 tablet by mouth every 6 (six) hours as needed for pain. To Last 30days. No early refills Max Daily Amount: 4 tablets 120 tablet 0 - oxyCODONE-acetaminophen (Percocet) 10-325 mg tablet Take 1 tablet by mouth every 6 (six) hours as needed for pain. To Last 30days. No early refills Max Daily Amount: 4 tablets 120 tablet 0 - potassium chloride (KLOR-CON) 10 MEQ CR tablet TAKE TWO TABLETS BY MOUTH TWICE A DAY 360 tablet 1 - prazosin (MINIPRESS) 2 MG capsule TAKE THREE CAPSULES BY MOUTH EVERY EVENING 270 capsule 1 - tiZANidine (ZANAFLEX) 4 MG tablet Take 1 tablet (4 mg total) by mouth 2 (two) times a day. 60 tablet 3 - topiramate (Topamax) 25 MG tablet Take 2 tablet in the a.m. and 1 tablet in pm 90 tablet 11 - umeclidinium-vilanteroL (Anoro Ellipta) 62.5-25 mcg/actuation Disk with Device Inhale 1 puff into the lungs once daily. 1 each 6 Current Facility-Administered Medications Medication Dose Route Frequency Provider Last Rate Last Admin - pneumococcal 20-valent vaccine (PREVNAR 20) syringe 0.5 mL IntraMuscular Once Mike Ann Jr., MD ALLERGIES Allergies Allergen Reactions - Penicillins Anaphylaxis - Gabapentin Other (See Comments) severe fatigue - Sulfa (Sulfonamide Antibiotics) Other (See Comments) Blisters inside and outside of mouth. - Wellbutrin [Bupropion Hcl] Other (See Comments) Body numbness and tingling - Diazepam Nausea And Vomiting - Varenicline PHYSICAL EXAM Vital Signs: Wt 49.9 kg (110 lb) BMI 20.80 kg/m Constitutional: Well nourished, well groomed, NAD. CARDIAC: Regular Rate LUNGS: Breathing nonlabored, no wheezing Neurologic: Alert & oriented x 3, normal gait, no focal deficits noted. Psychiatric: Affect normal, judgment normal, mood normal. Other Affected BA/OS: Chronic Opiate Therapy Risk Mitigation: Risk Assessment Evaluation Assessment Morphine Equivalents 60 Date of Last UDS SOAPP-R Score Behavior Risks none Physical Risks none H/o Illegal Substance Abuse denies H/o Alcohol abuse denies OPIATE RISK ASSESSMENT: LOW (Routine medication monitoring, Annual UDS) Assessment is based treating physicians overall evaluation of multiple factors including MME load, age, comorbidity, medication profile, and social risk factors. The risks/benefits of chronic opiate therapy was discussed with patient including failure of therapy, psychological addiction, physiological dependence, and risk withdrawal syndrome. Warning symptoms of potential opiate overuse/overdose were discussed including sedation, somnolence, and altered mentation were reviewed and I counseled patient these symptoms can occur even when patient have been on a stable dose and also can happen despite following physicians instructions. Alternative therapies were discussed including: non-opiate medications, interventional pain procedures, and Cognitive Behavioral Therapy. After discussing these alternatives with the patient, the patient has opted to decline these alternatives at this time. Patient has tried and failed more conservative measures and were either ineffective or intolerant. In my medical opinion non-opiate therapy is not appropriate to address the patient's medical condition at this time and will continue chronic opiate therapy after having addressed efficacy, adverse side effects, and safety of therapy with the patient. The patient indicates understanding of these issues and agrees with the plan. LIFESTYLE COUNSELING: Time was spent discussing the importance of a home exercise program to promote strength, activity endurance and pain tolerance. Patient was also counseled on avoidance of tobacco products for general health as well as improved chronic pain control. ASSESSMENT AND PLAN Problem List Items Addressed This Visit Cervical radiculopathy - Primary Failed back syndrome Lumbar spondylosis PLAN: 6. Patient is stable functional and meeting the goals of chronic opiate therapy without adverse side effects, misuse, or safety concerns. PDMP was reviewed without redflags or other concerns. 7. I counseled her on the importance of maintaining her activity and low-impact exercise such as walking on a daily basis to promote good health and improve chronic pain management. 8. She notes that she will be undergoing hernia surgery early July 26. I will continue her percocet to 10/325 qid and f/u in 4 weeks The patient indicates understanding of these issues and agrees with the plan. I reviewed the patient's medical information and medical history. I have reviewed the past medical, family, and social history sections including the medications and allergies listed in the above medical record. Patient was counseled that in my practice I do not prescribe chronic opiate therapy in the presence of ongoing illegal substance use. Patient was also counseled that drug screen testing is medically necessary from time to time to help stratify risks associated with chronic opiate therapy by assessing compliance with prescribed medications as well as to identify the presence of illegal substances. Consent for drug screen testing is required for continuation of chronic opiate therapy. Electronically signed by: Isaías Cardenas MD, 12/02/2022 12:16 PM [facility] CHIEF COMPLAINT No chief complaint on file. SUBJECTIVE Ibis Tay is a 67 y.o. female who presents for follow-up of No chief complaint on file. with diagnosis of: 1. Problem List Items Addressed This Visit Cervical radiculopathy - Primary Failed back syndrome Lumbar spondylosis Patient underwent LESI on 12-19-20She notes 50% improvement but continues with low back and joint pain. She notes that she has prior cervical WAQAR with >50% relief lasting 8-10mos. She feels the pain has recurred and would like to proceed with repeat cervical WAQAR She has tried OTC NSAIDs, daily home exercises/stretching she learned through PT without improvement Since patient's last encounter patient reports persistent chronic pain requiring ongoing treatment. Describes the pain as Sharp and Stabbing Patient rates their pain score 7/10 on average and is tolerable. Patient feels that the medication regimen does help maintain the function, mobility, activity tolerance and pain levels at a tolerable level. Patient states that medications changes or injections are not necessary today Patient states that the pain symptoms are stable. Patient denies new or changing pain complaints. Patient notes that the pain is worse with general activity and improved with rest. Patient 's current pain medication regimen has been reviewed with the patient and they note that the medication regimen is effective and reports that they are taking the medication regimen as prescribed. Patient denies running out of medication early or having an excess supply of medications. Other concerns: no new concerns at this time Patient's current pain medications has been reviewed and includes: DRUG FREQ Percocet qid qid Patient's most recent interventional procedures: PROCEDURE DATE % Relief & Duration Interlaminar Lumbar Epidural Steroid Injection L3 - L4 12/19/20 ROS Constitutional: denies dizziness, sedation, or somnolence Psychological: denies altered mentation or euphoria GI: denies significant constipation or diarrhea Musc: denies acute change in numbness, weakness, or tingling of extemities MEDICATIONS Current Outpatient Medications Medication Sig Dispense Refill - albuterol sulfate hfa 90 mcg/actuation aerosol inhaler INHALE TWO PUFFS BY MOUTH FOUR TIMES A DAY 8.5 g 11 - ALPRAZolam (Xanax) 0.5 MG tablet Take 1 tablet (0.5 mg total) by mouth daily as needed for anxiety. Max Daily Amount: 0.5 mg 20 tablet 0 - calcium-vitamin D 500 mg(1,250mg) -200 unit per tablet Take 1 tablet by mouth 2 (two) times a day with meals. 180 tablet 2 - cetirizine (ZyrTEC) 10 MG tablet Take 1 tablet (10 mg total) by mouth once daily. 90 tablet 1 - cholecalciferol (VITAMIN D3) 125 mcg (5,000 unit) capsule Take 1 capsule (5,000 Units total) by mouth once daily. 100 capsule 3 - diaper,brief,adult,disposable Misc 1 application by Miscellaneous route 2 (two) times a day. 96 each 5 - fluticasone propionate (Flovent Diskus) 250 mcg/actuation Disk with Device Inhale 1 puff into the lungs 2 (two) times a day. 60 each 3 - food supplemt, lactose-reduced (Ensure) Liquid Drink 2 bottles per day. Patient requests strawberry. [id number] mL 3 - hydroCHLOROthiazide (HYDRODIURIL) 25 MG tablet TAKE 1/2 TABLET BY MOUTH DAILY 45 tablet 1 - hydrOXYzine (ATARAX) 25 MG tablet Take 1 tablet (25 mg total) by mouth daily every night. 30 tablet 1 - ibandronate (Boniva) 150 mg tablet Take 1 tablet (150 mg total) by mouth every 30 (thirty) days. Take sitting upright once mobnthly on empty stomach with glass of water , dont lay down or eat for full hour 3 tablet 4 - ipratropium-albuteroL (DUO-NEB) 0.5-2.5 mg/3 mL nebulizer NEBULIZE 1 VIAL (3 ML) BY MOUTH FOUR TIMES A DAY 360 mL 1 - lisinopriL (PRINIVIL,ZESTRIL) 5 MG tablet TAKE ONE TABLET BY MOUTH DAILY 90 tablet 1 - methylnaltrexone (Relistor) 150 mg Tablet Take 3 tablets by mouth daily as needed. For opiate induced constipation 90 tablet 1 - misc[place] [facility] [place] for use for breathing problems for duo-nebs treatments 1 each 0 - miscellaneous medical supply [facility] [place] mask, tubing and filter for nebulizer machine to be changed every 3 months. 1 each 3 - miscellaneous medical supply [facility] [place] incontinence pads, 2 per day 100 each 6 - naloxone 2 mg/actuation [place], Non-Aerosol 2 mg by Nasal route as needed. 1-2 daily PRN. Proceed to ER for evaluation immediately following use. 4 each 1 - omeprazole (PriLOSEC) 40 MG capsule Take 1 capsule (40 mg total) by mouth once daily. 30 capsule 7 - ondansetron (Zofran ODT) [address] 1-2 tablets (4-8 mg total) under the tongue every 8 (eight) hours as needed for nausea / vomiting. 30 tablet 5 - oxyCODONE-acetaminophen (Percocet) 10-325 mg tablet Take 1 tablet by mouth every 6 (six) hours as needed for pain. To Last 30days. No early refills Max Daily Amount: 4 tablets 120 tablet 0 - oxyCODONE-acetaminophen (Percocet) 10-325 mg tablet Take 1 tablet by mouth every 6 (six) hours as needed for pain. To Last 30days. No early refills Max Daily Amount: 4 tablets 120 tablet 0 - potassium chloride (KLOR-CON) 10 MEQ CR tablet TAKE TWO TABLETS BY MOUTH TWICE A DAY 360 tablet 1 - prazosin (MINIPRESS) 2 MG capsule TAKE THREE CAPSULES BY MOUTH EVERY EVENING 270 capsule 1 - tiZANidine (ZANAFLEX) 4 MG tablet Take 1 tablet (4 mg total) by mouth 2 (two) times a day. 60 tablet 3 - topiramate (Topamax) 25 MG tablet Take 2 tablet in the a.m. and 1 tablet in pm 90 tablet 11 - umeclidinium-vilanteroL (Anoro Ellipta) 62.5-25 mcg/actuation Disk with Device Inhale 1 puff into the lungs once daily. 1 each 6 Current Facility-Administered Medications Medication Dose Route Frequency Provider Last Rate Last Admin - pneumococcal 20-valent vaccine (PREVNAR 20) syringe 0.5 mL IntraMuscular Once Mike Ann Jr., MD ALLERGIES Allergies Allergen Reactions - Penicillins Anaphylaxis - Gabapentin Other (See Comments) severe fatigue - Sulfa (Sulfonamide Antibiotics) Other (See Comments) Blisters inside and outside of mouth. - Wellbutrin [Bupropion Hcl] Other (See Comments) Body numbness and tingling - Diazepam Nausea And Vomiting - Varenicline PHYSICAL EXAM Vital Signs: Wt 49.9 kg (110 lb) BMI 20.80 kg/m Constitutional: Well nourished, well groomed, NAD. CARDIAC: Regular Rate LUNGS: Breathing nonlabored, no wheezing Neurologic: Alert & oriented x 3, normal gait, no focal deficits noted. Psychiatric: Affect normal, judgment normal, mood normal. Other Affected BA/OS: Chronic Opiate Therapy Risk Mitigation: Risk Assessment Evaluation Assessment Morphine Equivalents 60 Date of Last UDS SOAPP-R Score Behavior Risks none Physical Risks none H/o Illegal Substance Abuse denies H/o Alcohol abuse denies OPIATE RISK ASSESSMENT: LOW (Routine medication monitoring, Annual UDS) Assessment is based treating physicians overall evaluation of multiple factors including MME load, age, comorbidity, medication profile, and social risk factors. The risks/benefits of chronic opiate therapy was discussed with patient including failure of therapy, psychological addiction, physiological dependence, and risk withdrawal syndrome. Warning symptoms of potential opiate overuse/overdose were discussed including sedation, somnolence, and altered mentation were reviewed and I counseled patient these symptoms can occur even when patient have been on a stable dose and also can happen despite following physicians instructions. Alternative therapies were discussed including: non-opiate medications, interventional pain procedures, and Cognitive Behavioral Therapy. After discussing these alternatives with the patient, the patient has opted to decline these alternatives at this time. Patient has tried and failed more conservative measures and were either ineffective or intolerant. In my medical opinion non-opiate therapy is not appropriate to address the patient's medical condition at this time and will continue chronic opiate therapy after having addressed efficacy, adverse side effects, and safety of therapy with the patient. The patient indicates understanding of these issues and agrees with the plan. LIFESTYLE COUNSELING: Time was spent discussing the importance of a home exercise program to promote strength, activity endurance and pain tolerance. Patient was also counseled on avoidance of tobacco products for general health as well as improved chronic pain control. ASSESSMENT AND PLAN Problem List Items Addressed This Visit Cervical radiculopathy - Primary Failed back syndrome Lumbar spondylosis PLAN: 10. Patient is stable functional and meeting the goals of chronic opiate therapy without adverse side effects, misuse, or safety concerns. PDMP was reviewed without redflags or other concerns. 11. I counseled her on the importance of maintaining her activity and low-impact exercise such as walking on a daily basis to promote good health and improve chronic pain management. 12. She did very well with recent Cervical WAQAR 13. PAtient notes that she has increasing right knee pain. She has had prior RIGHT TKA. She notes she also has had prior RIGHT genicular RFA for her knee pain which was very effective 3yrs ago. She requests repeat RFA. I will schedule her for repeat genicular nerve RFA for the right knee 14. I will continue her percocet to 10/325 qid and f/u in 4 weeks The patient indicates understanding of these issues and agrees with the plan. I reviewed the patient's medical information and medical history. I have reviewed the past medical, family, and social history sections including the medications and allergies listed in the above medical record. Patient was counseled that in my practice I do not prescribe chronic opiate therapy in the presence of ongoing illegal substance use. Patient was also counseled that drug screen testing is medically necessary from time to time to help stratify risks associated with chronic opiate therapy by assessing compliance with prescribed medications as well as to identify the presence of illegal substances. Consent for drug screen testing is required for continuation of chronic opiate therapy. Electronically signed by: Isaías Cardenas MD, 12/02/2022 12:17 PM [facility] CHIEF COMPLAINT No chief complaint on file. SUBJECTIVE Ibis Tay is a 67 y.o. female who presents for follow-up of No chief complaint on file. with diagnosis of: 1. Problem List Items Addressed This Visit Cervical radiculopathy - Primary Failed back syndrome Lumbar spondylosis Patient underwent LESI on 12-19-20She notes 50% improvement but continues with low back and joint pain. She notes that she has prior cervical WAQAR with >50% relief lasting 8-10mos. She feels the pain has recurred and would like to proceed with repeat cervical WAQAR She has tried OTC NSAIDs, daily home exercises/stretching she learned through PT without improvement Since patient's last encounter patient reports persistent chronic pain requiring ongoing treatment. Describes the pain as Sharp and Stabbing Patient rates their pain score 7/10 on average and is tolerable. Patient feels that the medication regimen does help maintain the function, mobility, activity tolerance and pain levels at a tolerable level. Patient states that medications changes or injections are not necessary today Patient states that the pain symptoms are stable. Patient denies new or changing pain complaints. Patient notes that the pain is worse with general activity and improved with rest. Patient 's current pain medication regimen has been reviewed with the patient and they note that the medication regimen is effective and reports that they are taking the medication regimen as prescribed. Patient denies running out of medication early or having an excess supply of medications. Other concerns: no new concerns at this time Patient's current pain medications has been reviewed and includes: DRUG FREQ Percocet qid qid Patient's most recent interventional procedures: PROCEDURE DATE % Relief & Duration Interlaminar Lumbar Epidural Steroid Injection L3 - L4 12/19/20 ROS Constitutional: denies dizziness, sedation, or somnolence Psychological: denies altered mentation or euphoria GI: denies significant constipation or diarrhea Musc: denies acute change in numbness, weakness, or tingling of extemities MEDICATIONS Current Outpatient Medications Medication Sig Dispense Refill - albuterol sulfate hfa 90 mcg/actuation aerosol inhaler INHALE TWO PUFFS BY MOUTH FOUR TIMES A DAY 8.5 g 11 - ALPRAZolam (Xanax) 0.5 MG tablet Take 1 tablet (0.5 mg total) by mouth daily as needed for anxiety. Max Daily Amount: 0.5 mg 20 tablet 0 - calcium-vitamin D 500 mg(1,250mg) -200 unit per tablet Take 1 tablet by mouth 2 (two) times a day with meals. 180 tablet 2 - cetirizine (ZyrTEC) 10 MG tablet Take 1 tablet (10 mg total) by mouth once daily. 90 tablet 1 - cholecalciferol (VITAMIN D3) 125 mcg (5,000 unit) capsule Take 1 capsule (5,000 Units total) by mouth once daily. 100 capsule 3 - diaper,brief,adult,disposable Misc 1 application by Miscellaneous route 2 (two) times a day. 96 each 5 - fluticasone propionate (Flovent Diskus) 250 mcg/actuation Disk with Device Inhale 1 puff into the lungs 2 (two) times a day. 60 each 3 - food supplemt, lactose-reduced (Ensure) Liquid Drink 2 bottles per day. Patient requests strawberry. [id number] mL 3 - hydroCHLOROthiazide (HYDRODIURIL) 25 MG tablet TAKE 1/2 TABLET BY MOUTH DAILY 45 tablet 1 - hydrOXYzine (ATARAX) 25 MG tablet Take 1 tablet (25 mg total) by mouth daily every night. 30 tablet 1 - ibandronate (Boniva) 150 mg tablet Take 1 tablet (150 mg total) by mouth every 30 (thirty) days. Take sitting upright once mobnthly on empty stomach with glass of water , dont lay down or eat for full hour 3 tablet 4 - ipratropium-albuteroL (DUO-NEB) 0.5-2.5 mg/3 mL nebulizer NEBULIZE 1 VIAL (3 ML) BY MOUTH FOUR TIMES A DAY 360 mL 1 - lisinopriL (PRINIVIL,ZESTRIL) 5 MG tablet TAKE ONE TABLET BY MOUTH DAILY 90 tablet 1 - methylnaltrexone (Relistor) 150 mg Tablet Take 3 tablets by mouth daily as needed. For opiate induced constipation 90 tablet 1 - [place] [facility] [place] for use for breathing problems for duo-nebs treatments 1 each 0 - misc[place] medical [place] [facility] [place], tubing and filter for nebulizer machine to be changed every 3 months. 1 each 3 - miscellaneous medical [place] [facility] [place] incontinence pads, 2 per day 100 each 6 - naloxone 2 mg/actuation [place], Non-Aerosol 2 mg by Nasal route as needed. 1-2 daily PRN. Proceed to ER for evaluation immediately following use. 4 each 1 - omeprazole (PriLOSEC) 40 MG capsule Take 1 capsule (40 mg total) by mouth once daily. 30 capsule 7 - ondansetron (Zofran ODT) [address] 1-2 tablets (4-8 mg total) under the tongue every 8 (eight) hours as needed for nausea / vomiting. 30 tablet 5 - oxyCODONE-acetaminophen (Percocet) 10-325 mg tablet Take 1 tablet by mouth every 6 (six) hours as needed for pain. To Last 30days. No early refills Max Daily Amount: 4 tablets 120 tablet 0 - oxyCODONE-acetaminophen (Percocet) 10-325 mg tablet Take 1 tablet by mouth every 6 (six) hours as needed for pain. To Last 30days. No early refills Max Daily Amount: 4 tablets 120 tablet 0 - potassium chloride (KLOR-CON) 10 MEQ CR tablet TAKE TWO TABLETS BY MOUTH TWICE A DAY 360 tablet 1 - prazosin (MINIPRESS) 2 MG capsule TAKE THREE CAPSULES BY MOUTH EVERY EVENING 270 capsule 1 - tiZANidine (ZANAFLEX) 4 MG tablet Take 1 tablet (4 mg total) by mouth 2 (two) times a day. 60 tablet 3 - topiramate (Topamax) 25 MG tablet Take 2 tablet in the a.m. and 1 tablet in pm 90 tablet 11 - umeclidinium-vilanteroL (Anoro Ellipta) 62.5-25 mcg/actuation Disk with Device Inhale 1 puff into the lungs once daily. 1 each 6 Current Facility-Administered Medications Medication Dose Route Frequency Provider Last Rate Last Admin - pneumococcal 20-valent vaccine (PREVNAR 20) syringe 0.5 mL IntraMuscular Once Mike Ann Jr., MD ALLERGIES Allergies Allergen Reactions - Penicillins Anaphylaxis - Gabapentin Other (See Comments) severe fatigue - Sulfa (Sulfonamide Antibiotics) Other (See Comments) Blisters inside and outside of mouth. - Wellbutrin [Bupropion Hcl] Other (See Comments) Body numbness and tingling - Diazepam Nausea And Vomiting - Varenicline PHYSICAL EXAM Vital Signs: Wt 49.9 kg (110 lb) BMI 20.80 kg/m Constitutional: Well nourished, well groomed, NAD. CARDIAC: Regular Rate LUNGS: Breathing nonlabored, no wheezing Neurologic: Alert & oriented x 3, normal gait, no focal deficits noted. Psychiatric: Affect normal, judgment normal, mood normal. Other Affected BA/OS: Chronic Opiate Therapy Risk Mitigation: Risk Assessment Evaluation Assessment Morphine Equivalents 60 Date of Last UDS SOAPP-R Score Behavior Risks none Physical Risks none H/o Illegal Substance Abuse denies H/o Alcohol abuse denies OPIATE RISK ASSESSMENT: LOW (Routine medication monitoring, Annual UDS) Assessment is based treating physicians overall evaluation of multiple factors including MME load, age, comorbidity, medication profile, and social risk factors. The risks/benefits of chronic opiate therapy was discussed with patient including failure of therapy, psychological addiction, physiological dependence, and risk withdrawal syndrome. Warning symptoms of potential opiate overuse/overdose were discussed including sedation, somnolence, and altered mentation were reviewed and I counseled patient these symptoms can occur even when patient have been on a stable dose and also can happen despite following physicians instructions. Alternative therapies were discussed including: non-opiate medications, interventional pain procedures, and Cognitive Behavioral Therapy. After discussing these alternatives with the patient, the patient has opted to decline these alternatives at this time. Patient has tried and failed more conservative measures and were either ineffective or intolerant. In my medical opinion non-opiate therapy is not appropriate to address the patient's medical condition at this time and will continue chronic opiate therapy after having addressed efficacy, adverse side effects, and safety of therapy with the patient. The patient indicates understanding of these issues and agrees with the plan. LIFESTYLE COUNSELING: Time was spent discussing the importance of a home exercise program to promote strength, activity endurance and pain tolerance. Patient was also counseled on avoidance of tobacco products for general health as well as improved chronic pain control. ASSESSMENT AND PLAN Problem List Items Addressed This Visit Cervical radiculopathy - Primary Failed back syndrome Lumbar spondylosis PLAN: 15. Patient is stable functional and meeting the goals of chronic opiate therapy without adverse side effects, misuse, or safety concerns. PDMP was reviewed without redflags or other concerns. 16. I counseled her on the importance of maintaining her activity and low-impact exercise such as walking on a daily basis to promote good health and improve chronic pain management. 17. She notes that she will be undergoing hernia surgery early August 04. I will continue her percocet to 10/325 qid and f/u in 4 weeks The patient indicates understanding of these issues and agrees with the plan. I reviewed the patient's medical information and medical history. I have reviewed the past medical, family, and social history sections including the medications and allergies listed in the above medical record. Patient was counseled that in my practice I do not prescribe chronic opiate therapy in the presence of ongoing illegal substance use. Patient was also counseled that drug screen testing is medically necessary from time to time to help stratify risks associated with chronic opiate therapy by assessing compliance with prescribed medications as well as to identify the presence of illegal substances. Consent for drug screen testing is required for continuation of chronic opiate therapy. Electronically signed by: Isaías Cardenas MD, 12/02/2022 12:17 PM [facility] 2022-11-30 11:00:00 Vascular Surgery Follow UP Note Ibis Tay Primary Care Physician: Mike Ann Jr, MD : 1955 Age: 67 y.o. Subjective: Chief Complaint: Patient is a 67 y.o. female here for follow up, was last seen 1 year ago. H/o of bilateral iliac stents known to be occluded. Significant h/o spinal stenosis. Has BLE claudication. Denies any LE wounds. She is experiencing bone pain in her legs at night time that wakes her up. Vascular Lab- Arterial duplex Bilateral Lower Extremities Principal Problem: Patient Active Problem List Diagnosis - Hypercholesteremia - Hyperlipidemia - Generalized anxiety disorder - Smoker - Essential hypertension - Acute bronchitis - AR (allergic rhinitis) - GERD (gastroesophageal reflux disease) - Osteoarthritis of right knee - Arthritis - DDD (degenerative disc disease) - Failed back syndrome - Anxiety state - Cervical disc disease - Cervical radiculopathy - Spinal stenosis - Cervical spondylosis with myelopathy - Screening - History of total knee arthroplasty - Knee pain - Trochanteric bursitis - Knee osteoarthritis - Knee joint replacement status - Hip fracture, left (HCC) - Mild episode of recurrent major depressive disorder (HCC) - S/P total knee arthroplasty - S/P hip hemiarthroplasty- Left - Anxiety state - Pain in joint, lower leg - Routine general medical examination at a health care facility - Osteoarthritis of knee - Vitamin D deficiency - Dyslipidemia - Community acquired pneumonia - COPD exacerbation (HCC) - Hypoxia - Pneumonia of left lower lobe due to infectious organism - Severe sepsis (HCC) - Other chest pain - Pulmonary nodule - Lung cancer (HCC) - Mediastinal lymphadenopathy - Adenocarcinoma of lung, left (HCC) - Malignant neoplasm of upper lobe, left bronchus or lung (HCC) - Acute cystitis without hematuria - Urinary tract infection without hematuria - Fall at home, sequela - Right hand pain - Compression fracture of body of thoracic vertebra (HCC) - Non-small cell carcinoma of lung (HCC) - Vascular disease, peripheral (HCC) - Secondary malignant neoplasm of other specified sites (HCC) - Stricture of artery (HCC) - Lumbar spondylosis - Cervical radiculopathy - Iliac artery occlusion, bilateral (HCC) - Panic disorder - Insomnia due to other mental disorder - PTSD (post-traumatic stress disorder) Past Medical History: Diagnosis Date - Anxiety Takes Xanax - Arthritis - Breast mass 2013 rt axilla - Bronchitis - Bursitis Left hip - Cancer (HCC) left lung cancer, scheduled for left upper lobectomy at [facility] with Dr. Moore - Cervical radiculopathy sees Dr. 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 pylori infection Hx of H pylori infection several months ago treated with medication, no current issues. - H/O pyloric stenosis - Hiatal hernia - HTN (hypertension) - Hypercholesteremia - Hyperlipidemia No current medications or issues. - OA (osteoarthritis) of knee - Oxygen desaturation at night 3.5 liter - Palpitations with anxiety - Peripheral vascular disease (HCC) 10/2020 abdominal pain-stricture liliac artery - Pneumonia 1994 resolved. - PONV (postoperative nausea and vomiting) - PTSD (post-traumatic stress disorder) son was murdered 8 years ago, followed by Dr. Milly Freire - Spinal stenosis cervical - Urinary incontinence - Wears dentures full set - Wears glasses Past Surgical History: Procedure Laterality Date - ABDOMINAL HERNIA REPAIR 07/2022 robotic assisted/laparoscopic femoral/inguinal hernia repair with mesh - ESOPHAGEAL DILATION 2012 approx. done with upper endoscopy - Femoral inguinal hernia repair 08/09/2022 robotic assisted/laparoscopic femoral/inguinal hernia repair with mesh per dr roland - KNEE ARTHROPLASTY Right 2010 - LUMBAR FUSION 1996 - LUNG LOBECTOMY Left 10/11/2017 Upper - CO INTRODUCTION CATHETER AORTA Right 11/03/2020 Procedure: ABDOMINAL AORTOGRAM; Surgeon: Imelda Swan MD; Location: [facility]; Service: Vascular - CO TOTAL KNEE ARTHROPLASTY Right 05/28/2014 Procedure: REPLACEMENT TOTAL JOINT KNEE RIGHT / BETO ; Surgeon: Isaak Moncada MD; Location: [facility]; Service: Orthopedics - SPINE SURGERY lumbar fusion - TENDON RELEASE Right arm - TOTAL HIP ARTHROPLASTY Left 09/26/14 hip hem-iarthoplasty - TOTAL KNEE ARTHROPLASTY Left 11/23 - TUBAL LIGATION Bilateral - UPPER GASTROINTESTINAL ENDOSCOPY 2012 approx. diagnosed with H. Pylori and esophagus dilated. - UPPER GASTROINTESTINAL ENDOSCOPY Social History Socioeconomic History - Marital status: Spouse name: Not on file - Number of children: Not on file - Years of education: 14 - Highest education level: Not on file Occupational History - Not on file Tobacco Use - Smoking status: Every Day Packs/day: 2.00 Years: 44.00 Pack years: 88.00 Types: Cigarettes, Vaporizer - Smokeless tobacco: Never - Tobacco comments: does not completly smoke a cigarette Vaping Use - Vaping Use: Never used Substance and Sexual Activity - Alcohol use: Yes - Drug use: No - Sexual activity: Not Currently Other Topics Concern - Not on file Social History Narrative - Not on file Social Determinants of Health Financial Resource Strain: Not on file Food Insecurity: Not on file Transportation Needs: Not on file Physical Activity: Not on file Stress: Not on file Social Connections: Not on file Intimate Partner Violence: Not on file Housing Stability: Not on file Family History Family History Problem Relation Age of Onset - Other Other Hx: Yes Dx: Diabetes Fam Mem: Family h/o - Drug abuse Other - Other Other Hx: Yes Dx: Hypertension Fam Mem: Mother - Drug abuse Other - Hypertension Mother - Heart disease Mother - Diabetes Mother - No Known Problem Father - Other Sister - Cancer Sister - Other Other Hx: Yes Dx: Heart disease Fam Mem: Mother - Diabetes Maternal Grandmother (Not in a hospital admission) Allergies Allergen Reactions - Penicillins Anaphylaxis - Gabapentin Other (See Comments) severe fatigue - Sulfa (Sulfonamide Antibiotics) Other (See Comments) Blisters inside and outside of mouth. - Wellbutrin [Bupropion Hcl] Other (See Comments) Body numbness and tingling - Diazepam Nausea And Vomiting - Varenicline Reviewed and updated Past Medical History? Yes Review of Systems As noted above. Objective Physical Exam BP 104/72 (BP Location: Left arm, Patient Position: Sitting) Pulse 85 Temp 36.4 C (97.5 F) (Temporal Artery (forehead)) SpO2 98% HEENT: EOMI/ANDREAS Neck: Supple, trachea midline B LE: warm and well perfused. Neuro intact- no motor or sensory loss. Right Lower Extremity: Femoral pulse: absent Dorsalis Pedis: Absent pulse Posterior Tibial: Absent pulse Wounds present: no Left Lower Extremity: Femoral pulse: absent Dorsalis Pedis: Absent pulse Posterior Tibial: Absent pulse Wounds present: no Diagnostic Findings Labs: Pertinent Labs: Invalid input(s): ANION GAP2, GFR MDRD AF AMER Additional comments:None Extensive review of previous medical records completed. Assessment: Chief Complaint: Patient is a 67 y.o. female here for follow up, was last seen 1 year ago. H/o of bilateral iliac stents known to be occluded. Significant h/o spinal stenosis. Has BLE claudication. Denies any LE wounds. She is experiencing bone pain in her legs at night time that wakes her up. Vascular Lab- Arterial duplex Bilateral Lower Extremities Principal Problem: 1. Atherosclerosis of [place] artery of both lower extremities with intermittent claudication (HCC) Plan: Patient has bilateral fem-pop bypass occlusions. She is having rest pain not controlled with narcotic medication. Will further evaluate for revascularization options with CTA. Call with results. Signed: Imelda Swan MD 11/30/2022 10:48 AM [facility] 2022-11-11 11:45:00 PatientIbis not consent to Mike Ann Jr., MD's use of Augmedix at today's visit. [facility] 2022-11-11 11:45:00 Subjective: Patient ID: Ibis Tay is a 67 y.o. female. Chief Complaint Patient presents with - Follow-up Post head injury. Just getting headaches still but not as frequent. - Medication Refill - Urinary Tract Infection Pt states she may have one or a kidney infection. Pt states she has urine frequency and then she cant go. Has started a couple days ago. - Injections Pt is wanting an allergy shot. HPI Ibis Tay is a 67 y.o. female presenting today for: Follow up. The patient has a history of essential hypertension. Since her last visit, she states she is doing well. Patient's current medications include: prazosin 2 mg QD with benefit, reports no side effects, lisinopril 5 mg QD with benefit, reports no side effects, and hydrochlorothiazide 25 mg 0.5 tablet 0.5 daily with benefit, reports no side effects. She denies chest pain, dizziness, palpitations, and shortness of breath. She tries to follow a low fat diet and a low salt diet. She has been attempting to walk for 30 minutes at-least 5 times per week. Blood pressure today is 110/78. BP Readings from Last 3 Encounters: 11/11/22 110/78 11/04/22 112/63 09/14/22 120/80 The patient has a history of migraine without aura and without status migrainosus, not intractable. She has a post head injury. She said that she getting headaches still but not as frequent. She said that she is taking Nurtec ODT 75 mg once a day as needed, but she had side effects with this medication. She is taking Topamax 2 tablets in the morning with benefit for a month. She is feeling better with her headaches for last 2 weeks. She denies any numbness or tingling on her lower extremities. The patient reports that she has urinary tract infection. She states she may have one or a kidney infection. Patient states she has urine frequency. Her symptoms have been started a 2 days ago. She said that she has urinary urgency and leakage at night. She feels to pass urine in every hours. She has bladder incontinence. She did [place] exercise in the past but it does not help her. Her urine analysis showed that she has a large amount of blood and moderate leukocyte in her urine. She lost her 3 year ago. She smokes cigarettes, but she is trying to limit smoking. She has a hemorrhagic cystitis. The patient reports that she has seasonal allergic rhinitis due to pollen for which she was taking Zyrtec 10 mg once a day with benefit. She denies any side-effects secondary to medication. She said that her allergies symptoms are worse. She needs to get a allergy shot. She is allergic to the grass. Her symptoms get better April/May. She took Kenalog shot with benefit. Review of Systems General : No weight gain or loss, no loss of appetite, no fever, no chills, no fatigue, no night sweats Skin And lymphatics: No rashes, no skin discolorations, no easy bruising, no lymphadenopathy Head: Positive for headaches. no dizziness, no masses, no seizures Eyes: No visual changes no eye pain Ears: No tinnitus, no vertigo, no hearing loss Nose: No nosebleeds, no discharge, no sinus disease Mouth and throat: Denies dental disease, no hoarseness, no throat pain Respiratory: No cough, no shortness of breath, no sputum production Cardiovascular: No chest pain, no orthopnea, no paroxysmal nocturnal dyspnea, or dyspnea on exertion, no claudication, no edema, no valvular disease Gastrointestinal: No dysphagia, no abdominal pain, no nausea, no vomiting, no hematemesis, no diarrhea, no constipation, no melena, no hematochezia Genitourinary: Positive for urinary frequency. No dysuria, no hesitancy, no hematuria no discharge Endocrine: No polyuria, no polydipsia, no skin or hair changes, no heat intolerance Musculoskeletal: No joint pain or swelling, no arthritis, no myalgias Neuropsychiatric: No weakness no seizures, no memory changes, no depression Neurologic: Positive for headaches. No unilateral or bilateral numbness tingling or weakness, no difficulty with speech, no vision changes, no problems with balance, denies dizziness. Objective: BP 110/78 (BP Location: Left arm, Patient Position: Sitting) Pulse 97 Temp 35.9 C (96.6 F) (Temporal Artery (forehead)) Resp 16 Ht 154.9 cm (5' 0.98) Wt 49.9 kg (110 lb) SpO2 99% BMI 20.80 kg/m Physical Exam Nursing note and vitals reviewed. Constitutional: . patient appears well-developed and well-nourished. No distress. Head: Normocephalic and atraumatic. Right Ear: External ear normal. no erythema bright tympanic membrane bony landmarks intact Left Ear: External ear normal. No erythema bright tympanic membrane bony landmarks intact Mouth/Throat: No oropharyngeal exudate. Nose: Her turbinates are little pale. Eyes: Pupils are equal, round, and reactive to light. Right eye exhibits no discharge. Left eye exhibits no discharge. No scleral icterus. Neck: No JVD present. No tracheal deviation present. No thyromegaly present. Cardiovascular: Normal rate, regular rhythm, normal heart sounds and intact distal pulses. Exam reveals no gallop and no friction rub. No murmur heard. Pulmonary/Chest: Effort normal. No respiratory distress. patient has no wheezes. patient has no rales. Patient exhibits no tenderness. Abdominal: Soft. Patient exhibits no distension and no mass. There is no tenderness to palpation. There is no rebound and no guarding. Musculoskeletal: Normal range of motion. Patient exhibits no edema and no tenderness. Neurological: patient is alert and oriented to person, place, and time. gait balance and strength intact upper and lower extremity, cranial nerves 2-12 intact Skin: Skin is warm. No rash noted. Patient is not diaphoretic. No erythema. No pallor. Assessment/Plan: Problem List Items Addressed This Visit Generalized anxiety disorder Essential hypertension - Primary Relevant Orders POCT urinalysis dipstick (Completed) Urinary tract infection without hematuria Relevant Medications cephalexin (KEFLEX) 500 MG capsule Other Relevant Orders Urine culture (clean catch) Other Visit Diagnoses Urinary incontinence, unspecified type Hematuria, unspecified type Hemorrhagic cystitis Seasonal allergic rhinitis due to pollen Relevant Medications triamcinolone acetonide (KENALOG-40) injection 40 mg (Completed) cetirizine (ZyrTEC) 10 MG tablet Migraine without aura and without status migrainosus, not intractable Relevant Medications topiramate (Topamax) 25 MG tablet Fallen bladder Relevant Orders Ambulatory referral to Urology 1. Essential hypertension Ordered POCT urinalysis dipstick Continue current medication therapy. Goal blood pressure less than 140/90 . Follow low salt diet as well as Dash Diet suggestions, aerobic exercise 30 minutes 5x weekly, keep weight close to ideal. 2. Urinary tract infection without hematuria, site unspecified New prescription cephalexin (KEFLEX) 500 MG capsule; Take 1 capsule (500 mg total) by mouth 3 (three) times a day for 5 days. Dispense: 15 capsule; Refill: 0 Ordered Urine culture (clean catch). Discussed about spastic bladder. Advised the patient to do showering than bathe. Advised the patient to wear quality cotton underwear. Discussed referral to urology would prefer lele patient send referral to Dr. Mariya Cox concern for following bladder 3. Urinary incontinence, unspecified type concern for fallen bladder spastic versus overflow, discussed double voiding as well as suprapubic pressure while voiding to help empty the bladder 4. Hematuria, unspecified type see above consider cystoscopy no stone noted CT abdomen pelvis with contrast on July 27, 2022 no hydronephrosis there was a small cyst superior left kidney and mild area of scarring superior right kidney, consider repeat CT scan abdomen pelvis without contrast for better delineation of occult stone await urology consult 5. Hemorrhagic cystitis 6. Seasonal allergic rhinitis due to pollen Administered triamcinolone acetonide (KENALOG-40) injection 40 mg Refilled cetirizine (ZyrTEC) 10 MG tablet; Take 1 tablet (10 mg total) by mouth once daily. Dispense: 90 tablet; Refill: 1 7. Migraine without aura and without status migrainosus, not intractable New dose adjustment increase from 1 tablet twice daily - 3 tablet; topiramate (Topamax) 25 MG tablet; Take 2 tablet in the a.m. and 1 tablet in pm Dispense: 90 tablet; Refill: 11 Advised the patient to take Topamax 2 in the morning and 1 at night 8. Generalized anxiety disorder 9. Fallen bladder Ambulatory referral to Urology was given. Attestation: The patient indicates understanding of these issues and agrees with the plan. I reviewed the patient's medical information and medical history. I have reviewed the past medical, family, and social history sections including the medications and allergies listed in the above medical record. Signature: I, Shannon Clolazo, am scribing for and in the presence of Mike Ann Jr., MD. . I have read and agree with the documentation that has been completed regarding this visit and attest, that it is an accurate record of both my words and actions during the visit. . MIKE ANN JR [facility] 2022-11-04 09:50:00 [facility] CHIEF COMPLAINT Neck Pain (Follow up med refill) JOSE Tay is a 67 y.o. female who presents for follow-up of Neck Pain (Follow up med refill) with diagnosis of: 1. Problem List Items Addressed This Visit Cervical radiculopathy - Primary Relevant Medications oxyCODONE-acetaminophen (Percocet) 10-325 mg tablet methylnaltrexone (RELISTOR) 12 mg/0.6 mL Solution methylnaltrexone (Relistor) 150 mg Tablet Failed back syndrome Relevant Medications oxyCODONE-acetaminophen (Percocet) 10-325 mg tablet methylnaltrexone (RELISTOR) 12 mg/0.6 mL Solution methylnaltrexone (Relistor) 150 mg Tablet Lumbar spondylosis Relevant Medications oxyCODONE-acetaminophen (Percocet) 10-325 mg tablet methylnaltrexone (RELISTOR) 12 mg/0.6 mL Solution methylnaltrexone (Relistor) 150 mg Tablet Patient underwent LESI on 12-19-20She notes 50% improvement but continues with low back and joint pain. She notes that she has prior cervical WAQAR with >50% relief lasting 8-10mos. She feels the pain has recurred and would like to proceed with repeat cervical WAQAR She has tried OTC NSAIDs, daily home exercises/stretching she learned through PT without improvement Since patient's last encounter patient reports persistent chronic pain requiring ongoing treatment. Describes the pain as Sharp and Stabbing Patient rates their pain score 7/10 on average and is tolerable. Patient feels that the medication regimen does help maintain the function, mobility, activity tolerance and pain levels at a tolerable level. Patient states that medications changes or injections are not necessary today Patient states that the pain symptoms are stable. Patient denies new or changing pain complaints. Patient notes that the pain is worse with general activity and improved with rest. Patient 's current pain medication regimen has been reviewed with the patient and they note that the medication regimen is effective and reports that they are taking the medication regimen as prescribed. Patient denies running out of medication early or having an excess supply of medications. Other concerns: no new concerns at this time Patient's current pain medications has been reviewed and includes: DRUG FREQ Percocet 10/325 qid qid Patient's most recent interventional procedures: PROCEDURE DATE % Relief & Duration Interlaminar Lumbar Epidural Steroid Injection L3 - L4 12/19/20 ROS Constitutional: denies dizziness, sedation, or somnolence Psychological: denies altered mentation or euphoria GI: denies significant constipation or diarrhea Musc: denies acute change in numbness, weakness, or tingling of extemities MEDICATIONS Current Outpatient Medications Medication Sig Dispense Refill - albuterol sulfate hfa 90 mcg/actuation aerosol inhaler INHALE TWO PUFFS BY MOUTH FOUR TIMES A DAY 8.5 g 11 - ALPRAZolam (Xanax) 0.5 MG tablet Take 1 tablet (0.5 mg total) by mouth daily as needed for anxiety. Max Daily Amount: 0.5 mg 25 tablet 0 - calcium-vitamin D 500 mg(1,250mg) -200 unit per tablet Take 1 tablet by mouth 2 (two) times a day with meals. 180 tablet 2 - cetirizine (ZyrTEC) 10 MG tablet Take 1 tablet (10 mg total) by mouth once daily. 90 tablet 1 - cholecalciferol (VITAMIN D3) 125 mcg (5,000 unit) capsule Take 1 capsule (5,000 Units total) by mouth once daily. 100 capsule 3 - diaper,brief,adult,disposable Misc 1 application by Miscellaneous route 2 (two) times a day. 96 each 5 - DULoxetine (CYMBALTA) 30 MG capsule Take 1 capsule (30 mg total) by mouth daily every night. 60 capsule 1 - fluticasone propionate (Flovent Diskus) 250 mcg/actuation Disk with Device Inhale 1 puff into the lungs 2 (two) times a day. 60 each 3 - food supplemt, lactose-reduced (Ensure) Liquid Drink 2 bottles per day. Patient requests strawberry. [id number] mL 3 - hydroCHLOROthiazide (HYDRODIURIL) 25 MG tablet TAKE 1/2 TABLET BY MOUTH DAILY 45 tablet 1 - hydrOXYzine (ATARAX) 25 MG tablet Take 1 tablet (25 mg total) by mouth daily every night. 30 tablet 1 - ibandronate (Boniva) 150 mg tablet Take 1 tablet (150 mg total) by mouth every 30 (thirty) days. Take sitting upright once mobnthly on empty stomach with glass of water , dont lay down or eat for full hour 3 tablet 4 - ipratropium-albuteroL (DUO-NEB) 0.5-2.5 mg/3 mL nebulizer NEBULIZE 1 VIAL (3 ML) BY MOUTH FOUR TIMES A DAY 360 mL 1 - lisinopriL (PRINIVIL,ZESTRIL) 5 MG tablet TAKE ONE TABLET BY MOUTH DAILY 90 tablet 1 - methylnaltrexone (RELISTOR) 12 mg/0.6 mL Solution Inject 0.6 mL (12 mg total) under the skin every other day. 9 mL 3 - methylnaltrexone (Relistor) 150 mg Tablet Take 3 tablets by mouth daily as needed. For opiate induced constipation 90 tablet 1 - misc[place] [facility] [place] for use for breathing problems for duo-nebs treatments 1 each 0 - miscellaneous medical [place] [facility] [place], tubing and filter for nebulizer machine to be changed every 3 months. 1 each 3 - misc[place] medical [place] [facility] [place]ence pads, 2 per day 100 each 6 - naloxone 2 mg/actuation [place], Non-Aerosol 2 mg by Nasal route as needed. 1-2 daily PRN. Proceed to ER for evaluation immediately following use. 4 each 1 - omeprazole (PriLOSEC) 40 MG capsule Take 1 capsule (40 mg total) by mouth once daily. 30 capsule 7 - ondansetron (Zofran ODT) [address] 1-2 tablets (4-8 mg total) under the tongue every 8 (eight) hours as needed for nausea / vomiting. 30 tablet 5 - oxyCODONE-acetaminophen (Percocet) 10-325 mg tablet Take 1 tablet by mouth every 6 (six) hours as needed for pain. To Last 30days. No early refills Max Daily Amount: 4 tablets 120 tablet 0 - oxyCODONE-acetaminophen (Percocet) 10-325 mg tablet Take 1 tablet by mouth every 6 (six) hours as needed for pain. To Last 30days. No early refills Max Daily Amount: 4 tablets 120 tablet 0 - potassium chloride (KLOR-CON) 10 MEQ CR tablet TAKE TWO TABLETS BY MOUTH TWICE A DAY 360 tablet 1 - prazosin (MINIPRESS) 2 MG capsule TAKE THREE CAPSULES BY MOUTH EVERY EVENING 270 capsule 1 - rimegepant (Nurtec ODT) 75 mg Tablet, Rapid Dissolve Take 1 tablet (75 mg total) by mouth daily as needed. For migraine headache 18 tablet 1 - tiZANidine (ZANAFLEX) 4 MG tablet Take 1 tablet (4 mg total) by mouth 2 (two) times a day. 60 tablet 3 - topiramate (Topamax) 25 MG tablet Take 1 tablet (25 mg total) by mouth 2 (two) times a day. Take 1 tablet in the a.m. x1 week then increase to 1 tablet twice daily 60 tablet 0 - umeclidinium-vilanteroL (Anoro Ellipta) 62.5-25 mcg/actuation Disk with Device Inhale 1 puff into the lungs once daily. 1 each 6 Current Facility-Administered Medications Medication Dose Route Frequency Provider Last Rate Last Admin - pneumococcal 20-valent vaccine (PREVNAR 20) syringe 0.5 mL IntraMuscular Once Mike Ann Jr., MD ALLERGIES Allergies Allergen Reactions - Penicillins Anaphylaxis - Gabapentin Other (See Comments) severe fatigue - Sulfa (Sulfonamide Antibiotics) Other (See Comments) Blisters inside and outside of mouth. - Wellbutrin [Bupropion Hcl] Other (See Comments) Body numbness and tingling - Diazepam Nausea And Vomiting - Varenicline PHYSICAL EXAM Vital Signs: BP 112/63 (BP Location: Right arm) Pulse 67 Wt 50.3 kg (111 lb) BMI 20.98 kg/m Constitutional: Well nourished, well groomed, NAD. CARDIAC: Regular Rate LUNGS: Breathing nonlabored, no wheezing Neurologic: Alert & oriented x 3, normal gait, no focal deficits noted. Psychiatric: Affect normal, judgment normal, mood normal. Other Affected BA/OS: Chronic Opiate Therapy Risk Mitigation: Risk Assessment Evaluation Assessment Morphine Equivalents 60 Date of Last UDS SOAPP-R Score Behavior Risks none Physical Risks none H/o Illegal Substance Abuse denies H/o Alcohol abuse denies OPIATE RISK ASSESSMENT: LOW (Routine medication monitoring, Annual UDS) Assessment is based treating physicians overall evaluation of multiple factors including MME load, age, comorbidity, medication profile, and social risk factors. The risks/benefits of chronic opiate therapy was discussed with patient including failure of therapy, psychological addiction, physiological dependence, and risk withdrawal syndrome. Warning symptoms of potential opiate overuse/overdose were discussed including sedation, somnolence, and altered mentation were reviewed and I counseled patient these symptoms can occur even when patient have been on a stable dose and also can happen despite following physicians instructions. Alternative therapies were discussed including: non-opiate medications, interventional pain procedures, and Cognitive Behavioral Therapy. After discussing these alternatives with the patient, the patient has opted to decline these alternatives at this time. Patient has tried and failed more conservative measures and were either ineffective or intolerant. In my medical opinion non-opiate therapy is not appropriate to address the patient's medical condition at this time and will continue chronic opiate therapy after having addressed efficacy, adverse side effects, and safety of therapy with the patient. The patient indicates understanding of these issues and agrees with the plan. LIFESTYLE COUNSELING: Time was spent discussing the importance of a home exercise program to promote strength, activity endurance and pain tolerance. Patient was also counseled on avoidance of tobacco products for general health as well as improved chronic pain control. ASSESSMENT AND PLAN Problem List Items Addressed This Visit Cervical radiculopathy - Primary Relevant Medications oxyCODONE-acetaminophen (Percocet) 10-325 mg tablet methylnaltrexone (RELISTOR) 12 mg/0.6 mL Solution methylnaltrexone (Relistor) 150 mg Tablet Failed back syndrome Relevant Medications oxyCODONE-acetaminophen (Percocet) 10-325 mg tablet methylnaltrexone (RELISTOR) 12 mg/0.6 mL Solution methylnaltrexone (Relistor) 150 mg Tablet Lumbar spondylosis Relevant Medications oxyCODONE-acetaminophen (Percocet) 10-325 mg tablet methylnaltrexone (RELISTOR) 12 mg/0.6 mL Solution methylnaltrexone (Relistor) 150 mg Tablet PLAN: 1. Patient is stable functional and meeting the goals of chronic opiate therapy without adverse side effects, misuse, or safety concerns. PDMP was reviewed without redflags or other concerns. 2. I counseled her on the importance of maintaining her activity and low-impact exercise such as walking on a daily basis to promote good health and improve chronic pain management. 3. She did very well with recent Cervical WAQAR 4. PAtient notes that she has increasing right knee pain. She has had prior RIGHT TKA. She notes she also has had prior RIGHT genicular RFA for her knee pain which was very effective 3yrs ago. She requests repeat RFA. I will schedule her for repeat genicular nerve RFA for the right knee 5. I will continue her percocet to 10/325 qid and f/u in 4 weeks The patient indicates understanding of these issues and agrees with the plan. I reviewed the patient's medical information and medical history. I have reviewed the past medical, family, and social history sections including the medications and allergies listed in the above medical record. Patient was counseled that in my practice I do not prescribe chronic opiate therapy in the presence of ongoing illegal substance use. Patient was also counseled that drug screen testing is medically necessary from time to time to help stratify risks associated with chronic opiate therapy by assessing compliance with prescribed medications as well as to identify the presence of illegal substances. Consent for drug screen testing is required for continuation of chronic opiate therapy. Electronically signed by: Isaías Cardenas MD, 11/04/2022 2:16 PM [facility] CHIEF COMPLAINT Neck Pain (Follow up med refill) SUBJECTIVE Ibis Tay is a 67 y.o. female who presents for follow-up of Neck Pain (Follow up med refill) with diagnosis of: 1. Problem List Items Addressed This Visit Cervical radiculopathy - Primary Relevant Medications oxyCODONE-acetaminophen (Percocet) 10-325 mg tablet methylnaltrexone (RELISTOR) 12 mg/0.6 mL Solution methylnaltrexone (Relistor) 150 mg Tablet Failed back syndrome Relevant Medications oxyCODONE-acetaminophen (Percocet) 10-325 mg tablet methylnaltrexone (RELISTOR) 12 mg/0.6 mL Solution methylnaltrexone (Relistor) 150 mg Tablet Lumbar spondylosis Relevant Medications oxyCODONE-acetaminophen (Percocet) 10-325 mg tablet methylnaltrexone (RELISTOR) 12 mg/0.6 mL Solution methylnaltrexone (Relistor) 150 mg Tablet Patient underwent LESI on 21She notes 50% improvement but continues with low back and joint pain. She notes that she has prior cervical WAQAR with >50% relief lasting 8-10mos. She feels the pain has recurred and would like to proceed with repeat cervical WAQAR She has tried OTC NSAIDs, daily home exercises/stretching she learned through PT without improvement Since patient's last encounter patient reports persistent chronic pain requiring ongoing treatment. Describes the pain as Sharp and Stabbing Patient rates their pain score 7/10 on average and is tolerable. Patient feels that the medication regimen does help maintain the function, mobility, activity tolerance and pain levels at a tolerable level. Patient states that medications changes or injections are not necessary today Patient states that the pain symptoms are stable. Patient denies new or changing pain complaints. Patient notes that the pain is worse with general activity and improved with rest. Patient 's current pain medication regimen has been reviewed with the patient and they note that the medication regimen is effective and reports that they are taking the medication regimen as prescribed. Patient denies running out of medication early or having an excess supply of medications. Other concerns: no new concerns at this time Patient's current pain medications has been reviewed and includes: DRUG FREQ Percocet qid qid Patient's most recent interventional procedures: PROCEDURE DATE % Relief & Duration Interlaminar Lumbar Epidural Steroid Injection L3 - L4 12/19/20 ROS Constitutional: denies dizziness, sedation, or somnolence Psychological: denies altered mentation or euphoria GI: denies significant constipation or diarrhea Musc: denies acute change in numbness, weakness, or tingling of extemities MEDICATIONS Current Outpatient Medications Medication Sig Dispense Refill - albuterol sulfate hfa 90 mcg/actuation aerosol inhaler INHALE TWO PUFFS BY MOUTH FOUR TIMES A DAY 8.5 g 11 - ALPRAZolam (Xanax) 0.5 MG tablet Take 1 tablet (0.5 mg total) by mouth daily as needed for anxiety. Max Daily Amount: 0.5 mg 25 tablet 0 - calcium-vitamin D 500 mg(1,250mg) -200 unit per tablet Take 1 tablet by mouth 2 (two) times a day with meals. 180 tablet 2 - cetirizine (ZyrTEC) 10 MG tablet Take 1 tablet (10 mg total) by mouth once daily. 90 tablet 1 - cholecalciferol (VITAMIN D3) 125 mcg (5,000 unit) capsule Take 1 capsule (5,000 Units total) by mouth once daily. 100 capsule 3 - diaper,brief,adult,disposable Misc 1 application by Miscellaneous route 2 (two) times a day. 96 each 5 - DULoxetine (CYMBALTA) 30 MG capsule Take 1 capsule (30 mg total) by mouth daily every night. 60 capsule 1 - fluticasone propionate (Flovent Diskus) 250 mcg/actuation Disk with Device Inhale 1 puff into the lungs 2 (two) times a day. 60 each 3 - food supplemt, lactose-reduced (Ensure) Liquid Drink 2 bottles per day. Patient requests strawberry. 95029 mL 3 - hydroCHLOROthiazide (HYDRODIURIL) 25 MG tablet TAKE 1/2 TABLET BY MOUTH DAILY 45 tablet 1 - hydrOXYzine (ATARAX) 25 MG tablet Take 1 tablet (25 mg total) by mouth daily every night. 30 tablet 1 - ibandronate (Boniva) 150 mg tablet Take 1 tablet (150 mg total) by mouth every 30 (thirty) days. Take sitting upright once mobnthly on empty stomach with glass of water , dont lay down or eat for full hour 3 tablet 4 - ipratropium-albuteroL (DUO-NEB) 0.5-2.5 mg/3 mL nebulizer NEBULIZE 1 VIAL (3 ML) BY MOUTH FOUR TIMES A DAY 360 mL 1 - lisinopriL (PRINIVIL,ZESTRIL) 5 MG tablet TAKE ONE TABLET BY MOUTH DAILY 90 tablet 1 - methylnaltrexone (RELISTOR) 12 mg/0.6 mL Solution Inject 0.6 mL (12 mg total) under the skin every other day. 9 mL 3 - methylnaltrexone (Relistor) 150 mg Tablet Take 3 tablets by mouth daily as needed. For opiate induced constipation 90 tablet 1 - [place] [facility] [place] for use for breathing problems for duo-nebs treatments 1 each 0 - misc[place] medical [place] [facility] [place], tubing and filter for nebulizer machine to be changed every 3 months. 1 each 3 - miscellaneous medical [place] [facility] [place] incontinence pads, 2 per day 100 each 6 - naloxone 2 mg/actuation [place], Non-Aerosol 2 mg by Nasal route as needed. 1-2 daily PRN. Proceed to ER for evaluation immediately following use. 4 each 1 - omeprazole (PriLOSEC) 40 MG capsule Take 1 capsule (40 mg total) by mouth once daily. 30 capsule 7 - ondansetron (Zofran ODT) [address] 1-2 tablets (4-8 mg total) under the tongue every 8 (eight) hours as needed for nausea / vomiting. 30 tablet 5 - oxyCODONE-acetaminophen (Percocet) 10-325 mg tablet Take 1 tablet by mouth every 6 (six) hours as needed for pain. To Last 30days. No early refills Max Daily Amount: 4 tablets 120 tablet 0 - oxyCODONE-acetaminophen (Percocet) 10-325 mg tablet Take 1 tablet by mouth every 6 (six) hours as needed for pain. To Last 30days. No early refills Max Daily Amount: 4 tablets 120 tablet 0 - potassium chloride (KLOR-CON) 10 MEQ CR tablet TAKE TWO TABLETS BY MOUTH TWICE A DAY 360 tablet 1 - prazosin (MINIPRESS) 2 MG capsule TAKE THREE CAPSULES BY MOUTH EVERY EVENING 270 capsule 1 - rimegepant (Nurtec ODT) 75 mg Tablet, Rapid Dissolve Take 1 tablet (75 mg total) by mouth daily as needed. For migraine headache 18 tablet 1 - tiZANidine (ZANAFLEX) 4 MG tablet Take 1 tablet (4 mg total) by mouth 2 (two) times a day. 60 tablet 3 - topiramate (Topamax) 25 MG tablet Take 1 tablet (25 mg total) by mouth 2 (two) times a day. Take 1 tablet in the a.m. x1 week then increase to 1 tablet twice daily 60 tablet 0 - umeclidinium-vilanteroL (Anoro Ellipta) 62.5-25 mcg/actuation Disk with Device Inhale 1 puff into the lungs once daily. 1 each 6 Current Facility-Administered Medications Medication Dose Route Frequency Provider Last Rate Last Admin - pneumococcal 20-valent vaccine (PREVNAR 20) syringe 0.5 mL IntraMuscular Once Mike Ann Jr., MD ALLERGIES Allergies Allergen Reactions - Penicillins Anaphylaxis - Gabapentin Other (See Comments) severe fatigue - Sulfa (Sulfonamide Antibiotics) Other (See Comments) Blisters inside and outside of mouth. - Wellbutrin [Bupropion Hcl] Other (See Comments) Body numbness and tingling - Diazepam Nausea And Vomiting - Varenicline PHYSICAL EXAM Vital Signs: BP 112/63 (BP Location: Right arm) Pulse 67 Wt 50.3 kg (111 lb) BMI 20.98 kg/m Constitutional: Well nourished, well groomed, NAD. CARDIAC: Regular Rate LUNGS: Breathing nonlabored, no wheezing Neurologic: Alert & oriented x 3, normal gait, no focal deficits noted. Psychiatric: Affect normal, judgment normal, mood normal. Other Affected BA/OS: Chronic Opiate Therapy Risk Mitigation: Risk Assessment Evaluation Assessment Morphine Equivalents 60 Date of Last UDS SOAPP-R Score Behavior Risks none Physical Risks none H/o Illegal Substance Abuse denies H/o Alcohol abuse denies OPIATE RISK ASSESSMENT: LOW (Routine medication monitoring, Annual UDS) Assessment is based treating physicians overall evaluation of multiple factors including MME load, age, comorbidity, medication profile, and social risk factors. The risks/benefits of chronic opiate therapy was discussed with patient including failure of therapy, psychological addiction, physiological dependence, and risk withdrawal syndrome. Warning symptoms of potential opiate overuse/overdose were discussed including sedation, somnolence, and altered mentation were reviewed and I counseled patient these symptoms can occur even when patient have been on a stable dose and also can happen despite following physicians instructions. Alternative therapies were discussed including: non-opiate medications, interventional pain procedures, and Cognitive Behavioral Therapy. After discussing these alternatives with the patient, the patient has opted to decline these alternatives at this time. Patient has tried and failed more conservative measures and were either ineffective or intolerant. In my medical opinion non-opiate therapy is not appropriate to address the patient's medical condition at this time and will continue chronic opiate therapy after having addressed efficacy, adverse side effects, and safety of therapy with the patient. The patient indicates understanding of these issues and agrees with the plan. LIFESTYLE COUNSELING: Time was spent discussing the importance of a home exercise program to promote strength, activity endurance and pain tolerance. Patient was also counseled on avoidance of tobacco products for general health as well as improved chronic pain control. ASSESSMENT AND PLAN Problem List Items Addressed This Visit Cervical radiculopathy - Primary Relevant Medications oxyCODONE-acetaminophen (Percocet) 10-325 mg tablet methylnaltrexone (RELISTOR) 12 mg/0.6 mL Solution methylnaltrexone (Relistor) 150 mg Tablet Failed back syndrome Relevant Medications oxyCODONE-acetaminophen (Percocet) 10-325 mg tablet methylnaltrexone (RELISTOR) 12 mg/0.6 mL Solution methylnaltrexone (Relistor) 150 mg Tablet Lumbar spondylosis Relevant Medications oxyCODONE-acetaminophen (Percocet) 10-325 mg tablet methylnaltrexone (RELISTOR) 12 mg/0.6 mL Solution methylnaltrexone (Relistor) 150 mg Tablet PLAN: 6. Patient is stable functional and meeting the goals of chronic opiate therapy without adverse side effects, misuse, or safety concerns. PDMP was reviewed without redflags or other concerns. 7. I counseled her on the importance of maintaining her activity and low-impact exercise such as walking on a daily basis to promote good health and improve chronic pain management. 8. She notes that she will be undergoing hernia surgery early July 26. I will continue her percocet to 10/325 qid and f/u in 4 weeks The patient indicates understanding of these issues and agrees with the plan. I reviewed the patient's medical information and medical history. I have reviewed the past medical, family, and social history sections including the medications and allergies listed in the above medical record. Patient was counseled that in my practice I do not prescribe chronic opiate therapy in the presence of ongoing illegal substance use. Patient was also counseled that drug screen testing is medically necessary from time to time to help stratify risks associated with chronic opiate therapy by assessing compliance with prescribed medications as well as to identify the presence of illegal substances. Consent for drug screen testing is required for continuation of chronic opiate therapy. Electronically signed by: Isaaís Cardenas MD, 11/04/2022 2:16 PM [address]AÍAS CARDENAS [facility] 2022-10-05 09:40:00 [facility] CHIEF COMPLAINT No chief complaint on file. SUBJECTIVE Ibis Tay is a 67 y.o. female who presents for follow-up of No chief complaint on file. with diagnosis of: 1. Problem List Items Addressed This Visit Cervical radiculopathy Relevant Medications oxyCODONE-acetaminophen (Percocet) 10-325 mg tablet Failed back syndrome Lumbar spondylosis Relevant Medications oxyCODONE-acetaminophen (Percocet) 10-325 mg tablet Osteoarthritis of knee Relevant Medications oxyCODONE-acetaminophen (Percocet) 10-325 mg tablet Patient underwent LESI on 12-19-20She notes 50% improvement but continues with low back and joint pain. She notes that she has prior cervical WAQAR with >50% relief lasting 8-10mos. She feels the pain has recurred and would like to proceed with repeat cervical WAQAR She has tried OTC NSAIDs, daily home exercises/stretching she learned through PT without improvement Since patient's last encounter patient reports persistent chronic pain requiring ongoing treatment. Describes the pain as Sharp and Stabbing Patient rates their pain score 7/10 on average and is tolerable. Patient feels that the medication regimen does help maintain the function, mobility, activity tolerance and pain levels at a tolerable level. Patient states that medications changes or injections are not necessary today Patient states that the pain symptoms are stable. Patient denies new or changing pain complaints. Patient notes that the pain is worse with general activity and improved with rest. Patient 's current pain medication regimen has been reviewed with the patient and they note that the medication regimen is effective and reports that they are taking the medication regimen as prescribed. Patient denies running out of medication early or having an excess supply of medications. Other concerns: no new concerns at this time Patient's current pain medications has been reviewed and includes: DRUG FREQ Percocet qid qid Patient's most recent interventional procedures: PROCEDURE DATE % Relief & Duration Interlaminar Lumbar Epidural Steroid Injection L3 - L4 12/19/20 ROS Constitutional: denies dizziness, sedation, or somnolence Psychological: denies altered mentation or euphoria GI: denies significant constipation or diarrhea Musc: denies acute change in numbness, weakness, or tingling of extemities MEDICATIONS Current Outpatient Medications Medication Sig Dispense Refill - albuterol sulfate hfa 90 mcg/actuation aerosol inhaler INHALE TWO PUFFS BY MOUTH FOUR TIMES A DAY 8.5 g 11 - ALPRAZolam (Xanax) 0.5 MG tablet Take 1 tablet (0.5 mg total) by mouth daily as needed for anxiety. Max Daily Amount: 0.5 mg 30 tablet 0 - calcium-vitamin D 500 mg(1,250mg) -200 unit per tablet Take 1 tablet by mouth 2 (two) times a day with meals. 180 tablet 2 - cetirizine (ZyrTEC) 10 MG tablet Take 1 tablet (10 mg total) by mouth once daily. 90 tablet 1 - cholecalciferol (VITAMIN D3) 125 mcg (5,000 unit) capsule Take 1 capsule (5,000 Units total) by mouth once daily. 100 capsule 3 - diaper,brief,adult,disposable Misc 1 application by Miscellaneous route 2 (two) times a day. 96 each 5 - DULoxetine (CYMBALTA) 30 MG capsule Take 1 capsule (30 mg total) by mouth daily every night. 60 capsule 1 - fluticasone propionate (Flovent Diskus) 250 mcg/actuation Disk with Device Inhale 1 puff into the lungs 2 (two) times a day. 60 each 3 - food supplemt, lactose-reduced (Ensure) Liquid Drink 2 bottles per day. Patient requests strawberry. 47523 mL 3 - hydroCHLOROthiazide (HYDRODIURIL) 25 MG tablet TAKE 1/2 TABLET BY MOUTH DAILY 45 tablet 1 - ibandronate (Boniva) 150 mg tablet Take 1 tablet (150 mg total) by mouth every 30 (thirty) days. Take sitting upright once mobnthly on empty stomach with glass of water , dont lay down or eat for full hour 3 tablet 4 - ipratropium-albuteroL (DUO-NEB) 0.5-2.5 mg/3 mL nebulizer NEBULIZE 1 VIAL (3 ML) BY MOUTH FOUR TIMES A DAY 360 mL 1 - lisinopriL (PRINIVIL,ZESTRIL) 5 MG tablet TAKE ONE TABLET BY MOUTH DAILY 90 tablet 1 - miscellaneous medical [place] [facility] [place] for use for breathing problems for duo-nebs treatments 1 each 0 - miscellaneous medical [place] [facility] [place], tubing and filter for nebulizer machine to be changed every 3 months. 1 each 3 - miscellaneous medical [place] [facility] [place] incontinence pads, 2 per day 100 each 6 - naloxone 2 mg/actuation [place], Non-Aerosol 2 mg by Nasal route as needed. 1-2 daily PRN. Proceed to ER for evaluation immediately following use. 4 each 1 - omeprazole (PriLOSEC) 40 MG capsule Take 1 capsule (40 mg total) by mouth once daily. 30 capsule 7 - ondansetron (Zofran ODT) [address] 1-2 tablets (4-8 mg total) under the tongue every 8 (eight) hours as needed for nausea / vomiting. 30 tablet 5 - oxyCODONE-acetaminophen (Percocet) 10-325 mg tablet Take 1 tablet by mouth every 6 (six) hours as needed for pain. To Last 30days. No early refills Max Daily Amount: 4 tablets 120 tablet 0 - oxyCODONE-acetaminophen (Percocet) 10-325 mg tablet Take 1 tablet by mouth every 6 (six) hours as needed for pain. To Last 30days. No early refills Max Daily Amount: 4 tablets 120 tablet 0 - potassium chloride (KLOR-CON) 10 MEQ CR tablet TAKE TWO TABLETS BY MOUTH TWICE A DAY 360 tablet 1 - prazosin (MINIPRESS) 2 MG capsule TAKE THREE CAPSULES BY MOUTH EVERY EVENING 270 capsule 1 - tiZANidine (ZANAFLEX) 4 MG tablet Take 1 tablet (4 mg total) by mouth 2 (two) times a day. 60 tablet 3 - umeclidinium-vilanteroL (Anoro Ellipta) 62.5-25 mcg/actuation Disk with Device Inhale 1 puff into the lungs once daily. 1 each 6 Current Facility-Administered Medications Medication Dose Route Frequency Provider Last Rate Last Admin - pneumococcal 20-valent vaccine (PREVNAR 20) syringe 0.5 mL IntraMuscular Once Mike Ann Jr., MD ALLERGIES Allergies Allergen Reactions - Penicillins Anaphylaxis - Gabapentin Other (See Comments) severe fatigue - Sulfa (Sulfonamide Antibiotics) Other (See Comments) Blisters inside and outside of mouth. - Wellbutrin [Bupropion Hcl] Other (See Comments) Body numbness and tingling - Diazepam Nausea And Vomiting - Varenicline PHYSICAL EXAM Vital Signs: There were no vitals taken for this visit. Constitutional: Well nourished, well groomed, NAD. CARDIAC: Regular Rate LUNGS: Breathing nonlabored, no wheezing Neurologic: Alert & oriented x 3, normal gait, no focal deficits noted. Psychiatric: Affect normal, judgment normal, mood normal. Other Affected BA/OS: Chronic Opiate Therapy Risk Mitigation: Risk Assessment Evaluation Assessment Morphine Equivalents 60 Date of Last UDS SOAPP-R Score Behavior Risks none Physical Risks none H/o Illegal Substance Abuse denies H/o Alcohol abuse denies OPIATE RISK ASSESSMENT: LOW (Routine medication monitoring, Annual UDS) Assessment is based treating physicians overall evaluation of multiple factors including MME load, age, comorbidity, medication profile, and social risk factors. The risks/benefits of chronic opiate therapy was discussed with patient including failure of therapy, psychological addiction, physiological dependence, and risk withdrawal syndrome. Warning symptoms of potential opiate overuse/overdose were discussed including sedation, somnolence, and altered mentation were reviewed and I counseled patient these symptoms can occur even when patient have been on a stable dose and also can happen despite following physicians instructions. Alternative therapies were discussed including: non-opiate medications, interventional pain procedures, and Cognitive Behavioral Therapy. After discussing these alternatives with the patient, the patient has opted to decline these alternatives at this time. Patient has tried and failed more conservative measures and were either ineffective or intolerant. In my medical opinion non-opiate therapy is not appropriate to address the patient's medical condition at this time and will continue chronic opiate therapy after having addressed efficacy, adverse side effects, and safety of therapy with the patient. The patient indicates understanding of these issues and agrees with the plan. LIFESTYLE COUNSELING: Time was spent discussing the importance of a home exercise program to promote strength, activity endurance and pain tolerance. Patient was also counseled on avoidance of tobacco products for general health as well as improved chronic pain control. ASSESSMENT AND PLAN Problem List Items Addressed This Visit Cervical radiculopathy Relevant Medications oxyCODONE-acetaminophen (Percocet) 10-325 mg tablet Failed back syndrome Lumbar spondylosis Relevant Medications oxyCODONE-acetaminophen (Percocet) 10-325 mg tablet Osteoarthritis of knee Relevant Medications oxyCODONE-acetaminophen (Percocet) 10-325 mg tablet PLAN: 1. Patient is stable functional and meeting the goals of chronic opiate therapy without adverse side effects, misuse, or safety concerns. PDMP was reviewed without redflags or other concerns. 2. I counseled her on the importance of maintaining her activity and low-impact exercise such as walking on a daily basis to promote good health and improve chronic pain management. 3. She did very well with recent Cervical WAQAR 4. PAtient notes that she has increasing right knee pain. She has had prior RIGHT TKA. She notes she also has had prior RIGHT genicular RFA for her knee pain which was very effective 3yrs ago. She requests repeat RFA. I will schedule her for repeat genicular nerve RFA for the right knee 5. I will continue her percocet to 10/325 qid and f/u in 4 weeks The patient indicates understanding of these issues and agrees with the plan. I reviewed the patient's medical information and medical history. I have reviewed the past medical, family, and social history sections including the medications and allergies listed in the above medical record. Patient was counseled that in my practice I do not prescribe chronic opiate therapy in the presence of ongoing illegal substance use. Patient was also counseled that drug screen testing is medically necessary from time to time to help stratify risks associated with chronic opiate therapy by assessing compliance with prescribed medications as well as to identify the presence of illegal substances. Consent for drug screen testing is required for continuation of chronic opiate therapy. Electronically signed by: Isaías Cardenas MD, 10/05/2022 10:14 AM [facility] CHIEF COMPLAINT No chief complaint on file. SUBJECTIVE Ibis Tay is a 67 y.o. female who presents for follow-up of No chief complaint on file. with diagnosis of: 1. Problem List Items Addressed This Visit Cervical radiculopathy Relevant Medications oxyCODONE-acetaminophen (Percocet) 10-325 mg tablet Failed back syndrome Lumbar spondylosis Relevant Medications oxyCODONE-acetaminophen (Percocet) 10-325 mg tablet Osteoarthritis of knee Relevant Medications oxyCODONE-acetaminophen (Percocet) 10-325 mg tablet Patient underwent LESI on 12-19-20She notes 50% improvement but continues with low back and joint pain. She notes that she has prior cervical WAQAR with >50% relief lasting 8-10mos. She feels the pain has recurred and would like to proceed with repeat cervical WAQAR She has tried OTC NSAIDs, daily home exercises/stretching she learned through PT without improvement Since patient's last encounter patient reports persistent chronic pain requiring ongoing treatment. Describes the pain as Sharp and Stabbing Patient rates their pain score 7/10 on average and is tolerable. Patient feels that the medication regimen does help maintain the function, mobility, activity tolerance and pain levels at a tolerable level. Patient states that medications changes or injections are not necessary today Patient states that the pain symptoms are stable. Patient denies new or changing pain complaints. Patient notes that the pain is worse with general activity and improved with rest. Patient 's current pain medication regimen has been reviewed with the patient and they note that the medication regimen is effective and reports that they are taking the medication regimen as prescribed. Patient denies running out of medication early or having an excess supply of medications. Other concerns: no new concerns at this time Patient's current pain medications has been reviewed and includes: DRUG FREQ Percocet 10/325 qid qid Patient's most recent interventional procedures: PROCEDURE DATE % Relief & Duration Interlaminar Lumbar Epidural Steroid Injection L3 - L4 12/19/20 ROS Constitutional: denies dizziness, sedation, or somnolence Psychological: denies altered mentation or euphoria GI: denies significant constipation or diarrhea Musc: denies acute change in numbness, weakness, or tingling of extemities MEDICATIONS Current Outpatient Medications Medication Sig Dispense Refill - albuterol sulfate hfa 90 mcg/actuation aerosol inhaler INHALE TWO PUFFS BY MOUTH FOUR TIMES A DAY 8.5 g 11 - ALPRAZolam (Xanax) 0.5 MG tablet Take 1 tablet (0.5 mg total) by mouth daily as needed for anxiety. Max Daily Amount: 0.5 mg 30 tablet 0 - calcium-vitamin D 500 mg(1,250mg) -200 unit per tablet Take 1 tablet by mouth 2 (two) times a day with meals. 180 tablet 2 - cetirizine (ZyrTEC) 10 MG tablet Take 1 tablet (10 mg total) by mouth once daily. 90 tablet 1 - cholecalciferol (VITAMIN D3) 125 mcg (5,000 unit) capsule Take 1 capsule (5,000 Units total) by mouth once daily. 100 capsule 3 - diaper,brief,adult,disposable Misc 1 application by Miscellaneous route 2 (two) times a day. 96 each 5 - DULoxetine (CYMBALTA) 30 MG capsule Take 1 capsule (30 mg total) by mouth daily every night. 60 capsule 1 - fluticasone propionate (Flovent Diskus) 250 mcg/actuation Disk with Device Inhale 1 puff into the lungs 2 (two) times a day. 60 each 3 - food supplemt, lactose-reduced (Ensure) Liquid Drink 2 bottles per day. Patient requests strawberry. 77199 mL 3 - hydroCHLOROthiazide (HYDRODIURIL) 25 MG tablet TAKE 1/2 TABLET BY MOUTH DAILY 45 tablet 1 - ibandronate (Boniva) 150 mg tablet Take 1 tablet (150 mg total) by mouth every 30 (thirty) days. Take sitting upright once mobnthly on empty stomach with glass of water , dont lay down or eat for full hour 3 tablet 4 - ipratropium-albuteroL (DUO-NEB) 0.5-2.5 mg/3 mL nebulizer NEBULIZE 1 VIAL (3 ML) BY MOUTH FOUR TIMES A DAY 360 mL 1 - lisinopriL (PRINIVIL,ZESTRIL) 5 MG tablet TAKE ONE TABLET BY MOUTH DAILY 90 tablet 1 - misc[place] [facility] [place] for use for breathing problems for duo-nebs treatments 1 each 0 - miscellaneous medical supply [facility] [place] mask, tubing and filter for nebulizer machine to be changed every 3 months. 1 each 3 - miscellaneous medical supply [facility] [place] incontinence pads, 2 per day 100 each 6 - naloxone 2 mg/actuation [place], Non-Aerosol 2 mg by Nasal route as needed. 1-2 daily PRN. Proceed to ER for evaluation immediately following use. 4 each 1 - omeprazole (PriLOSEC) 40 MG capsule Take 1 capsule (40 mg total) by mouth once daily. 30 capsule 7 - ondansetron (Zofran ODT) [address] 1-2 tablets (4-8 mg total) under the tongue every 8 (eight) hours as needed for nausea / vomiting. 30 tablet 5 - oxyCODONE-acetaminophen (Percocet) 10-325 mg tablet Take 1 tablet by mouth every 6 (six) hours as needed for pain. To Last 30days. No early refills Max Daily Amount: 4 tablets 120 tablet 0 - oxyCODONE-acetaminophen (Percocet) 10-325 mg tablet Take 1 tablet by mouth every 6 (six) hours as needed for pain. To Last 30days. No early refills Max Daily Amount: 4 tablets 120 tablet 0 - potassium chloride (KLOR-CON) 10 MEQ CR tablet TAKE TWO TABLETS BY MOUTH TWICE A DAY 360 tablet 1 - prazosin (MINIPRESS) 2 MG capsule TAKE THREE CAPSULES BY MOUTH EVERY EVENING 270 capsule 1 - tiZANidine (ZANAFLEX) 4 MG tablet Take 1 tablet (4 mg total) by mouth 2 (two) times a day. 60 tablet 3 - umeclidinium-vilanteroL (Anoro Ellipta) 62.5-25 mcg/actuation Disk with Device Inhale 1 puff into the lungs once daily. 1 each 6 Current Facility-Administered Medications Medication Dose Route Frequency Provider Last Rate Last Admin - pneumococcal 20-valent vaccine (PREVNAR 20) syringe 0.5 mL IntraMuscular Once Mike Ann Jr., MD ALLERGIES Allergies Allergen Reactions - Penicillins Anaphylaxis - Gabapentin Other (See Comments) severe fatigue - Sulfa (Sulfonamide Antibiotics) Other (See Comments) Blisters inside and outside of mouth. - Wellbutrin [Bupropion Hcl] Other (See Comments) Body numbness and tingling - Diazepam Nausea And Vomiting - Varenicline PHYSICAL EXAM Vital Signs: There were no vitals taken for this visit. Constitutional: Well nourished, well groomed, NAD. CARDIAC: Regular Rate LUNGS: Breathing nonlabored, no wheezing Neurologic: Alert & oriented x 3, normal gait, no focal deficits noted. Psychiatric: Affect normal, judgment normal, mood normal. Other Affected BA/OS: Chronic Opiate Therapy Risk Mitigation: Risk Assessment Evaluation Assessment Morphine Equivalents 60 Date of Last UDS SOAPP-R Score Behavior Risks none Physical Risks none H/o Illegal Substance Abuse denies H/o Alcohol abuse denies OPIATE RISK ASSESSMENT: LOW (Routine medication monitoring, Annual UDS) Assessment is based treating physicians overall evaluation of multiple factors including MME load, age, comorbidity, medication profile, and social risk factors. The risks/benefits of chronic opiate therapy was discussed with patient including failure of therapy, psychological addiction, physiological dependence, and risk withdrawal syndrome. Warning symptoms of potential opiate overuse/overdose were discussed including sedation, somnolence, and altered mentation were reviewed and I counseled patient these symptoms can occur even when patient have been on a stable dose and also can happen despite following physicians instructions. Alternative therapies were discussed including: non-opiate medications, interventional pain procedures, and Cognitive Behavioral Therapy. After discussing these alternatives with the patient, the patient has opted to decline these alternatives at this time. Patient has tried and failed more conservative measures and were either ineffective or intolerant. In my medical opinion non-opiate therapy is not appropriate to address the patient's medical condition at this time and will continue chronic opiate therapy after having addressed efficacy, adverse side effects, and safety of therapy with the patient. The patient indicates understanding of these issues and agrees with the plan. LIFESTYLE COUNSELING: Time was spent discussing the importance of a home exercise program to promote strength, activity endurance and pain tolerance. Patient was also counseled on avoidance of tobacco products for general health as well as improved chronic pain control. ASSESSMENT AND PLAN Problem List Items Addressed This Visit Cervical radiculopathy Relevant Medications oxyCODONE-acetaminophen (Percocet) 10-325 mg tablet Failed back syndrome Lumbar spondylosis Relevant Medications oxyCODONE-acetaminophen (Percocet) 10-325 mg tablet Osteoarthritis of knee Relevant Medications oxyCODONE-acetaminophen (Percocet) 10-325 mg tablet PLAN: 6. Patient is stable functional and meeting the goals of chronic opiate therapy without adverse side effects, misuse, or safety concerns. PDMP was reviewed without redflags or other concerns. 7. I counseled her on the importance of maintaining her activity and low-impact exercise such as walking on a daily basis to promote good health and improve chronic pain management. 8. She notes that she will be undergoing hernia surgery early July 26. I will continue her percocet to 10/325 qid and f/u in 4 weeks The patient indicates understanding of these issues and agrees with the plan. I reviewed the patient's medical information and medical history. I have reviewed the past medical, family, and social history sections including the medications and allergies listed in the above medical record. Patient was counseled that in my practice I do not prescribe chronic opiate therapy in the presence of ongoing illegal substance use. Patient was also counseled that drug screen testing is medically necessary from time to time to help stratify risks associated with chronic opiate therapy by assessing compliance with prescribed medications as well as to identify the presence of illegal substances. Consent for drug screen testing is required for continuation of chronic opiate therapy. Electronically signed by: Isaías Cardenas MD, 10/05/2022 10:14 AM [facility] 2022-09-14 09:00:00 PatientIbis s consent to Mike Ann Jr., MD's use of Augmedix at today's visit. OLIVIA [facility] 2022-09-14 09:00:[address] Grace jhaveri and they said he is only there on Tuesday and so should be filling it then. OLVIN KVNGJannette CASTRO 2022-09-14 09:00:00 Subjective: Patient ID: Ibis Tay is a 67 y.o. female. Chief Complaint Patient presents with - Fall Pt states it happened after herina surgery on 08/28/22 she woke up on the floor. - Migraine Pt states still having horrible headaches. She does see spots when she gets these headaches. - Facial Swelling Both eyes get swollen. As the day goes on they do go down. HPI Ibis Tay is a 67 y.o. female presenting today for: Follow up after hernia surgery repair on August 28, 2022 she went home fell struck her head striking to the right mid parietal area unsure if she lost consciousness , since that time she has had horrible headaches to 9 out of 10 they wake her up at night, she denies preaural symptoms not had unilateral numbness tingling or weakness. Patient states his headaches are distinctly different from prior high-grade headaches that are throbbing in character, they do not resolve this to her migraines they only started after she had a fall on August 28 she thought they would gradually improve and they have not.. But admits to malignant neoplasm of upper lobe of her left lung and lung cancer which has previously been removed non-small cell carcinoma of the lung, CT of her head was back January 09, 2014 which showed no acute intercranial abnormality. She had a hernia surgery on August 28, 2022. She is doing good after surgery. No stitches She denies any redness or drainage from the site. Her surgery was done by Dr. Roland. Her bowel movements are normal. She does not have any issues with her surgery. Her surgery was fixed on August 12 but she was in the ER on that day, so her surgery was postponed to August 28 and performed on that day. The patient reports that she has headaches. She had a fall on 08/28/2022. She states it happened after hernia surgery on 08/28/22 she woke up on the floor. Patient states still having horrible headaches. She said that she hit her head. She does see spots when she gets these headaches. She localized her headaches worse in the right side than the left. Her headaches is not alleviated with lying down. She describes her pain as stabbing and piercing in nature. She has headaches exacerbation at least 4 days out of the week but she has persistent headache every day which is distinctly different than the migraine she had in the past which were intermittent. She wakes up in between the sleep. She has nausea but she denies any vomiting. Her eyes little bit puffy eyes, she denies changes to her vision. She denies numbness or tingling. The patient reports that she has facial swelling. Her both eyes get swollen. Her swelling goes down after some days. The patient reports she has rhinorrhea. Her symptoms have been ongoing for a few days. She denies fever or chills. She denies any sneezing. She denies fever or chills pay states her headaches do not go away when she lays down Review of Systems General : No weight gain or loss, no loss of appetite, no fever, no chills, no fatigue, no Night sweats Skin And lymphatics: No rashes, no skin discolorations, no easy bruising, no lymphadenopathy Head: Positive for headaches. no dizziness, no masses, no seizures Eyes: No visual changes no eye pain Ears: No tinnitus, no vertigo, no hearing loss Nose: Positive for rhinorrhea. No nosebleeds, no discharge, no sinus disease Mouth and throat: Positive for facial swelling. Denies dental disease, no hoarseness, no throat pain Respiratory: No cough, no shortness of breath, no sputum production Cardiovascular: No chest pain, no orthopnea, no paroxysmal nocturnal dyspnea, or dyspnea on exertion, no claudication, no edema, no valvular disease Gastrointestinal: Positive for nausea.No dysphagia, no abdominal pain, no vomiting, no hematemesis, no diarrhea, no constipation, no melena, no hematochezia Genitourinary: No dysuria, no frequency, no hesitancy, no hematuria no discharge Endocrine: No polyuria, no polydipsia, no skin or hair changes, no heat intolerance Musculoskeletal: No joint pain or swelling, no arthritis, no myalgias Neuropsychiatric: No weakness no seizures, no memory changes, no depression Neurologic: No unilateral or bilateral numbness tingling or weakness, no difficulty with speech, no vision changes, no problems with balance, denies dizziness, denies headache Objective: BP 120/80 (BP Location: Left arm, Patient Position: Sitting) Pulse 106 Temp 36.1 C (96.9 F) (Temporal Artery (forehead)) Resp 20 Ht 154.9 cm (5' 0.98) Wt 51.7 kg (114 lb) SpO2 95% BMI 21.55 kg/m Physical Exam Nursing note and vitals reviewed. Constitutional: . patient appears well-developed and well-nourished. No distress. Head: Normocephalic and atraumatic. Right Ear: External ear normal. no erythema bright tympanic membrane bony landmarks intact Left Ear: External ear normal. No erythema bright tympanic membrane bony landmarks intact Mouth/Throat: No oropharyngeal exudate. Eyes: Pupils are equal, round, and reactive to light. Right eye exhibits no discharge. Left eye exhibits no discharge. No scleral icterus. Neck: No JVD present. No tracheal deviation present. No thyromegaly present. Cardiovascular: Normal rate, regular rhythm, normal heart sounds and intact distal pulses. Exam reveals no gallop and no friction rub. No murmur heard. Pulmonary/Chest: Effort normal. No respiratory distress. patient has no wheezes. patient has no rales. Patient exhibits no tenderness. Abdominal: Soft. Patient exhibits no distension and no mass. There is no tenderness to palpation. There is no rebound and no guarding. Musculoskeletal: The patient is tender on the right parietal. No hematoma on the forehead. The patient has 1+ reflex and She has 1+ on his brachioradialis and biceps. Neurological: patient is alert and oriented to person, place, and time. gait balance and strength intact upper and lower extremity, cranial nerves 2-12 intact Skin: Skin is warm. No rash noted. Patient is not diaphoretic. No erythema. No pallor. Assessment/Plan: Problem List Items Addressed This Visit None Visit Diagnoses New onset of headaches - Primary Bilateral headaches Hematoma Post-concussion headache Relevant Medications ketorolac (TORADOL) injection 30 mg (Completed) Other Relevant Orders CT HEAD WITHOUT CONTRAST (Completed) Abdominal hernia without obstruction and without gangrene, recurrence not specified, unspecified hernia type 1. New onset of headaches Send pfor CT scan concern for subdural hematoma,if runny nose does not resolve with Flonase would consider referral to ENT and have fluid check to make sure not consistent with CSF fluid, no evidence of irregularity to the skull no bruising to the face to suggest skull fracture, was a ground-level fall 2. Bilateral headaches see above 3. Hematoma mid right parietal- should resolve with time 4. Post-concussion headache Ordered CT HEAD WITHOUT CONTRAST; Future Administered ketorolac (TORADOL) injection 30 mg Follow-up 1 week 5. Abdominal hernia without obstruction and without gangrene, recurrence not specified, unspecified hernia type into the right of the abdomen clean dry and intact Attestation: The patient indicates understanding of these issues and agrees with the plan. I reviewed the patient's medical information and medical history. I have reviewed the past medical, family, and social history sections including the medications and allergies listed in the above medical record. Signature: I, Shannon Collazo, am scribing for and in the presence of Mike Ann Jr., MD. . I have read and agree with the documentation that has been completed regarding this visit and attest, that it is an accurate record of both my words and actions during the visit. . MIKE ANN JR, [facility] 2022-09-09 09:40:00 [facility] CHIEF COMPLAINT No chief complaint on file. SUBJECTIVE Ibis Tay is a 67 y.o. female who presents for follow-up of No chief complaint on file. with diagnosis of: 1. Problem List Items Addressed This Visit Cervical radiculopathy - Primary Relevant Medications oxyCODONE-acetaminophen (Percocet) 10-325 mg tablet Failed back syndrome Lumbar spondylosis Relevant Medications oxyCODONE-acetaminophen (Percocet) 10-325 mg tablet Osteoarthritis of knee Relevant Medications oxyCODONE-acetaminophen (Percocet) 10-325 mg tablet Patient underwent LESI on 12-19-20She notes 50% improvement but continues with low back and joint pain. She notes that she has prior cervical WAQAR with >50% relief lasting 8-10mos. She feels the pain has recurred and would like to proceed with repeat cervical WAQAR She has tried OTC NSAIDs, daily home exercises/stretching she learned through PT without improvement Since patient's last encounter patient reports persistent chronic pain requiring ongoing treatment. Describes the pain as Sharp and Stabbing Patient rates their pain score 7/10 on average and is tolerable. Patient feels that the medication regimen does help maintain the function, mobility, activity tolerance and pain levels at a tolerable level. Patient states that medications changes or injections are not necessary today Patient states that the pain symptoms are stable. Patient denies new or changing pain complaints. Patient notes that the pain is worse with general activity and improved with rest. Patient 's current pain medication regimen has been reviewed with the patient and they note that the medication regimen is effective and reports that they are taking the medication regimen as prescribed. Patient denies running out of medication early or having an excess supply of medications. Other concerns: no new concerns at this time Patient's current pain medications has been reviewed and includes: DRUG FREQ Percocet 10/325 qid qid Patient's most recent interventional procedures: PROCEDURE DATE % Relief & Duration Interlaminar Lumbar Epidural Steroid Injection L3 - L4 12/19/20 ROS Constitutional: denies dizziness, sedation, or somnolence Psychological: denies altered mentation or euphoria GI: denies significant constipation or diarrhea Musc: denies acute change in numbness, weakness, or tingling of extemities MEDICATIONS Current Outpatient Medications Medication Sig Dispense Refill - albuterol sulfate hfa 90 mcg/actuation aerosol inhaler INHALE TWO PUFFS BY MOUTH FOUR TIMES A DAY 8.5 g 11 - ALPRAZolam (Xanax) 0.5 MG tablet Take 1 tablet once to twice daily as needed 35 tablet 0 - calcium-vitamin D 500 mg(1,250mg) -200 unit per tablet Take 1 tablet by mouth 2 (two) times a day with meals. 180 tablet 2 - cetirizine (ZyrTEC) 10 MG tablet Take 1 tablet (10 mg total) by mouth once daily. 90 tablet 1 - cholecalciferol (VITAMIN D3) 125 mcg (5,000 unit) capsule Take 1 capsule (5,000 Units total) by mouth once daily. 100 capsule 3 - diaper,brief,adult,disposable Misc 1 application by Miscellaneous route 2 (two) times a day. 96 each 5 - DULoxetine (CYMBALTA) 30 MG capsule Take 1 capsule (30 mg total) by mouth daily every night. 60 capsule 1 - fluticasone propionate (Flovent Diskus) 250 mcg/actuation Disk with Device Inhale 1 puff into the lungs 2 (two) times a day. 60 each 3 - food supplemt, lactose-reduced (Ensure) Liquid Drink 2 bottles per day. Patient requests strawberry. 85175 mL 3 - hydroCHLOROthiazide (HYDRODIURIL) 25 MG tablet TAKE 1/2 TABLET BY MOUTH DAILY 15 tablet 1 - ibandronate (Boniva) 150 mg tablet Take 1 tablet (150 mg total) by mouth every 30 (thirty) days. Take sitting upright once mobnthly on empty stomach with glass of water , dont lay down or eat for full hour 3 tablet 4 - ipratropium-albuteroL (DUO-NEB) 0.5-2.5 mg/3 mL nebulizer NEBULIZE 1 VIAL (3 ML) BY MOUTH FOUR TIMES A DAY 360 mL 1 - lisinopriL (PRINIVIL,ZESTRIL) 5 MG tablet TAKE ONE TABLET BY MOUTH DAILY 30 tablet 1 - [place] [facility] [place] for use for breathing problems for duo-nebs treatments 1 each 0 - miscellaneous medical [place] [facility] [place], tubing and filter for nebulizer machine to be changed every 3 months. 1 each 3 - miscellaneous medical [place] [facility] [place] incontinence pads, 2 per day 100 each 6 - naloxone 2 mg/actuation [place], Non-Aerosol 2 mg by Nasal route as needed. 1-2 daily PRN. Proceed to ER for evaluation immediately following use. 4 each 1 - omeprazole (PriLOSEC) 40 MG capsule Take 1 capsule (40 mg total) by mouth once daily. 30 capsule 7 - ondansetron (Zofran ODT) [address] 1-2 tablets (4-8 mg total) under the tongue every 8 (eight) hours as needed for nausea / vomiting. 30 tablet 5 - oxyCODONE-acetaminophen (Percocet) 10-325 mg tablet Take 1 tablet by mouth every 6 (six) hours as needed for pain. To Last 30days. No early refills Max Daily Amount: 4 tablets 120 tablet 0 - oxyCODONE-acetaminophen (Percocet) 10-325 mg tablet Take 1 tablet by mouth every 6 (six) hours as needed for pain. To Last 30days. No early refills Max Daily Amount: 4 tablets 120 tablet 0 - potassium chloride (KLOR-CON) 10 MEQ CR tablet TAKE TWO TABLETS BY MOUTH TWICE A DAY 120 tablet 1 - prazosin (MINIPRESS) 2 MG capsule TAKE THREE CAPSULES BY MOUTH EVERY EVENING 270 capsule 1 - tiZANidine (ZANAFLEX) 4 MG tablet Take 1 tablet (4 mg total) by mouth 2 (two) times a day. 60 tablet 3 - umeclidinium-vilanteroL (Anoro Ellipta) 62.5-25 mcg/actuation Disk with Device Inhale 1 puff into the lungs once daily. 1 each 6 Current Facility-Administered Medications Medication Dose Route Frequency Provider Last Rate Last Admin - pneumococcal 20-valent vaccine (PREVNAR 20) syringe 0.5 mL IntraMuscular Once Mike Ann Jr., MD ALLERGIES Allergies Allergen Reactions - Penicillins Anaphylaxis - Gabapentin Other (See Comments) severe fatigue - Sulfa (Sulfonamide Antibiotics) Other (See Comments) Blisters inside and outside of mouth. - Wellbutrin [Bupropion Hcl] Other (See Comments) Body numbness and tingling - Diazepam Nausea And Vomiting - Varenicline PHYSICAL EXAM Vital Signs: There were no vitals taken for this visit. Constitutional: Well nourished, well groomed, NAD. CARDIAC: Regular Rate LUNGS: Breathing nonlabored, no wheezing Neurologic: Alert & oriented x 3, normal gait, no focal deficits noted. Psychiatric: Affect normal, judgment normal, mood normal. Other Affected BA/OS: Chronic Opiate Therapy Risk Mitigation: Risk Assessment Evaluation Assessment Morphine Equivalents 60 Date of Last UDS SOAPP-R Score Behavior Risks none Physical Risks none H/o Illegal Substance Abuse denies H/o Alcohol abuse denies OPIATE RISK ASSESSMENT: LOW (Routine medication monitoring, Annual UDS) Assessment is based treating physicians overall evaluation of multiple factors including MME load, age, comorbidity, medication profile, and social risk factors. The risks/benefits of chronic opiate therapy was discussed with patient including failure of therapy, psychological addiction, physiological dependence, and risk withdrawal syndrome. Warning symptoms of potential opiate overuse/overdose were discussed including sedation, somnolence, and altered mentation were reviewed and I counseled patient these symptoms can occur even when patient have been on a stable dose and also can happen despite following physicians instructions. Alternative therapies were discussed including: non-opiate medications, interventional pain procedures, and Cognitive Behavioral Therapy. After discussing these alternatives with the patient, the patient has opted to decline these alternatives at this time. Patient has tried and failed more conservative measures and were either ineffective or intolerant. In my medical opinion non-opiate therapy is not appropriate to address the patient's medical condition at this time and will continue chronic opiate therapy after having addressed efficacy, adverse side effects, and safety of therapy with the patient. The patient indicates understanding of these issues and agrees with the plan. LIFESTYLE COUNSELING: Time was spent discussing the importance of a home exercise program to promote strength, activity endurance and pain tolerance. Patient was also counseled on avoidance of tobacco products for general health as well as improved chronic pain control. ASSESSMENT AND PLAN Problem List Items Addressed This Visit Cervical radiculopathy - Primary Relevant Medications oxyCODONE-acetaminophen (Percocet) 10-325 mg tablet Failed back syndrome Lumbar spondylosis Relevant Medications oxyCODONE-acetaminophen (Percocet) 10-325 mg tablet Osteoarthritis of knee Relevant Medications oxyCODONE-acetaminophen (Percocet) 10-325 mg tablet PLAN: 1. Patient is stable functional and meeting the goals of chronic opiate therapy without adverse side effects, misuse, or safety concerns. PDMP was reviewed without redflags or other concerns. 2. I counseled her on the importance of maintaining her activity and low-impact exercise such as walking on a daily basis to promote good health and improve chronic pain management. 3. She did very well with recent Cervical WAQAR 4. PAtient notes that she has increasing right knee pain. She has had prior RIGHT TKA. She notes she also has had prior RIGHT genicular RFA for her knee pain which was very effective 3yrs ago. She requests repeat RFA. I will schedule her for repeat genicular nerve RFA for the right knee 5. I will continue her percocet to 10/325 qid and f/u in 4 weeks The patient indicates understanding of these issues and agrees with the plan. I reviewed the patient's medical information and medical history. I have reviewed the past medical, family, and social history sections including the medications and allergies listed in the above medical record. Patient was counseled that in my practice I do not prescribe chronic opiate therapy in the presence of ongoing illegal substance use. Patient was also counseled that drug screen testing is medically necessary from time to time to help stratify risks associated with chronic opiate therapy by assessing compliance with prescribed medications as well as to identify the presence of illegal substances. Consent for drug screen testing is required for continuation of chronic opiate therapy. Electronically signed by: Isaías Cardenas MD, 09/09/2022 10:03 AM [facility] CHIEF COMPLAINT No chief complaint on file. SUBJECTIVE Ibis Tay is a 67 y.o. female who presents for follow-up of No chief complaint on file. with diagnosis of: 1. Problem List Items Addressed This Visit Cervical radiculopathy - Primary Relevant Medications oxyCODONE-acetaminophen (Percocet) 10-325 mg tablet Failed back syndrome Lumbar spondylosis Relevant Medications oxyCODONE-acetaminophen (Percocet) 10-325 mg tablet Osteoarthritis of knee Relevant Medications oxyCODONE-acetaminophen (Percocet) 10-325 mg tablet Patient underwent LESI on 6-21She notes 50% improvement but continues with low back and joint pain. She notes that she has prior cervical WAQAR with >50% relief lasting 8-10mos. She feels the pain has recurred and would like to proceed with repeat cervical WAQAR She has tried OTC NSAIDs, daily home exercises/stretching she learned through PT without improvement Since patient's last encounter patient reports persistent chronic pain requiring ongoing treatment. Describes the pain as Sharp and Stabbing Patient rates their pain score 7/10 on average and is tolerable. Patient feels that the medication regimen does help maintain the function, mobility, activity tolerance and pain levels at a tolerable level. Patient states that medications changes or injections are not necessary today Patient states that the pain symptoms are stable. Patient denies new or changing pain complaints. Patient notes that the pain is worse with general activity and improved with rest. Patient 's current pain medication regimen has been reviewed with the patient and they note that the medication regimen is effective and reports that they are taking the medication regimen as prescribed. Patient denies running out of medication early or having an excess supply of medications. Other concerns: no new concerns at this time Patient's current pain medications has been reviewed and includes: DRUG FREQ Percocet qid qid Patient's most recent interventional procedures: PROCEDURE DATE % Relief & Duration Interlaminar Lumbar Epidural Steroid Injection L3 - L4 12/19/20 ROS Constitutional: denies dizziness, sedation, or somnolence Psychological: denies altered mentation or euphoria GI: denies significant constipation or diarrhea Musc: denies acute change in numbness, weakness, or tingling of extemities MEDICATIONS Current Outpatient Medications Medication Sig Dispense Refill - albuterol sulfate hfa 90 mcg/actuation aerosol inhaler INHALE TWO PUFFS BY MOUTH FOUR TIMES A DAY 8.5 g 11 - ALPRAZolam (Xanax) 0.5 MG tablet Take 1 tablet once to twice daily as needed 35 tablet 0 - calcium-vitamin D 500 mg(1,250mg) -200 unit per tablet Take 1 tablet by mouth 2 (two) times a day with meals. 180 tablet 2 - cetirizine (ZyrTEC) 10 MG tablet Take 1 tablet (10 mg total) by mouth once daily. 90 tablet 1 - cholecalciferol (VITAMIN D3) 125 mcg (5,000 unit) capsule Take 1 capsule (5,000 Units total) by mouth once daily. 100 capsule 3 - diaper,brief,adult,disposable Misc 1 application by Miscellaneous route 2 (two) times a day. 96 each 5 - DULoxetine (CYMBALTA) 30 MG capsule Take 1 capsule (30 mg total) by mouth daily every night. 60 capsule 1 - fluticasone propionate (Flovent Diskus) 250 mcg/actuation Disk with Device Inhale 1 puff into the lungs 2 (two) times a day. 60 each 3 - food supplemt, lactose-reduced (Ensure) Liquid Drink 2 bottles per day. Patient requests strawberry. 33956 mL 3 - hydroCHLOROthiazide (HYDRODIURIL) 25 MG tablet TAKE 1/2 TABLET BY MOUTH DAILY 15 tablet 1 - ibandronate (Boniva) 150 mg tablet Take 1 tablet (150 mg total) by mouth every 30 (thirty) days. Take sitting upright once mobnthly on empty stomach with glass of water , dont lay down or eat for full hour 3 tablet 4 - ipratropium-albuteroL (DUO-NEB) 0.5-2.5 mg/3 mL nebulizer NEBULIZE 1 VIAL (3 ML) BY MOUTH FOUR TIMES A DAY 360 mL 1 - lisinopriL (PRINIVIL,ZESTRIL) 5 MG tablet TAKE ONE TABLET BY MOUTH DAILY 30 tablet 1 - [place] [facility] [place] for use for breathing problems for duo-nebs treatments 1 each 0 - miscellaneous medical [place] [facility] [place], tubing and filter for nebulizer machine to be changed every 3 months. 1 each 3 - miscellaneous medical [place] [facility] [place] incontinence pads, 2 per day 100 each 6 - naloxone 2 mg/actuation [place], Non-Aerosol 2 mg by Nasal route as needed. 1-2 daily PRN. Proceed to ER for evaluation immediately following use. 4 each 1 - omeprazole (PriLOSEC) 40 MG capsule Take 1 capsule (40 mg total) by mouth once daily. 30 capsule 7 - ondansetron (Zofran ODT) [address] 1-2 tablets (4-8 mg total) under the tongue every 8 (eight) hours as needed for nausea / vomiting. 30 tablet 5 - oxyCODONE-acetaminophen (Percocet) 10-325 mg tablet Take 1 tablet by mouth every 6 (six) hours as needed for pain. To Last 30days. No early refills Max Daily Amount: 4 tablets 120 tablet 0 - oxyCODONE-acetaminophen (Percocet) 10-325 mg tablet Take 1 tablet by mouth every 6 (six) hours as needed for pain. To Last 30days. No early refills Max Daily Amount: 4 tablets 120 tablet 0 - potassium chloride (KLOR-CON) 10 MEQ CR tablet TAKE TWO TABLETS BY MOUTH TWICE A DAY 120 tablet 1 - prazosin (MINIPRESS) 2 MG capsule TAKE THREE CAPSULES BY MOUTH EVERY EVENING 270 capsule 1 - tiZANidine (ZANAFLEX) 4 MG tablet Take 1 tablet (4 mg total) by mouth 2 (two) times a day. 60 tablet 3 - umeclidinium-vilanteroL (Anoro Ellipta) 62.5-25 mcg/actuation Disk with Device Inhale 1 puff into the lungs once daily. 1 each 6 Current Facility-Administered Medications Medication Dose Route Frequency Provider Last Rate Last Admin - pneumococcal 20-valent vaccine (PREVNAR 20) syringe 0.5 mL IntraMuscular Once Mike Ann Jr., MD ALLERGIES Allergies Allergen Reactions - Penicillins Anaphylaxis - Gabapentin Other (See Comments) severe fatigue - Sulfa (Sulfonamide Antibiotics) Other (See Comments) Blisters inside and outside of mouth. - Wellbutrin [Bupropion Hcl] Other (See Comments) Body numbness and tingling - Diazepam Nausea And Vomiting - Varenicline PHYSICAL EXAM Vital Signs: There were no vitals taken for this visit. Constitutional: Well nourished, well groomed, NAD. CARDIAC: Regular Rate LUNGS: Breathing nonlabored, no wheezing Neurologic: Alert & oriented x 3, normal gait, no focal deficits noted. Psychiatric: Affect normal, judgment normal, mood normal. Other Affected BA/OS: Chronic Opiate Therapy Risk Mitigation: Risk Assessment Evaluation Assessment Morphine Equivalents 60 Date of Last UDS SOAPP-R Score Behavior Risks none Physical Risks none H/o Illegal Substance Abuse denies H/o Alcohol abuse denies OPIATE RISK ASSESSMENT: LOW (Routine medication monitoring, Annual UDS) Assessment is based treating physicians overall evaluation of multiple factors including MME load, age, comorbidity, medication profile, and social risk factors. The risks/benefits of chronic opiate therapy was discussed with patient including failure of therapy, psychological addiction, physiological dependence, and risk withdrawal syndrome. Warning symptoms of potential opiate overuse/overdose were discussed including sedation, somnolence, and altered mentation were reviewed and I counseled patient these symptoms can occur even when patient have been on a stable dose and also can happen despite following physicians instructions. Alternative therapies were discussed including: non-opiate medications, interventional pain procedures, and Cognitive Behavioral Therapy. After discussing these alternatives with the patient, the patient has opted to decline these alternatives at this time. Patient has tried and failed more conservative measures and were either ineffective or intolerant. In my medical opinion non-opiate therapy is not appropriate to address the patient's medical condition at this time and will continue chronic opiate therapy after having addressed efficacy, adverse side effects, and safety of therapy with the patient. The patient indicates understanding of these issues and agrees with the plan. LIFESTYLE COUNSELING: Time was spent discussing the importance of a home exercise program to promote strength, activity endurance and pain tolerance. Patient was also counseled on avoidance of tobacco products for general health as well as improved chronic pain control. ASSESSMENT AND PLAN Problem List Items Addressed This Visit Cervical radiculopathy - Primary Relevant Medications oxyCODONE-acetaminophen (Percocet) 10-325 mg tablet Failed back syndrome Lumbar spondylosis Relevant Medications oxyCODONE-acetaminophen (Percocet) 10-325 mg tablet Osteoarthritis of knee Relevant Medications oxyCODONE-acetaminophen (Percocet) 10-325 mg tablet PLAN: 6. Patient is stable functional and meeting the goals of chronic opiate therapy without adverse side effects, misuse, or safety concerns. PDMP was reviewed without redflags or other concerns. 7. I counseled her on the importance of maintaining her activity and low-impact exercise such as walking on a daily basis to promote good health and improve chronic pain management. 8. Patient underwent RFA of the RIGHT knee and notes significant improvement 9. She notes that she will be undergoing hernia surgery early July 27. I will continue her percocet to 10/325 qid and f/u in 4 weeks The patient indicates understanding of these issues and agrees with the plan. I reviewed the patient's medical information and medical history. I have reviewed the past medical, family, and social history sections including the medications and allergies listed in the above medical record. Patient was counseled that in my practice I do not prescribe chronic opiate therapy in the presence of ongoing illegal substance use. Patient was also counseled that drug screen testing is medically necessary from time to time to help stratify risks associated with chronic opiate therapy by assessing compliance with prescribed medications as well as to identify the presence of illegal substances. Consent for drug screen testing is required for continuation of chronic opiate therapy. Electronically signed by: Isaías Cardenas MD, 09/09/2022 10:03 AM ISAÍAS CARDENAS [facility] 2022-08-19 09:15:00 Subjective: Ibis Tay presents to the clinic 3 weeks following Robotic assisted, laparoscopic right inguinal and femoral hernia repair with mesh placement . Eating a regular diet without difficulty. Bowel movements are Normal. Pain is controlled without any medications.. She is doing well from a surgery standpoint, but has come down with a GI bug causing diarrhea and N/V. She had no problems with these issues after surgery until just a couple days ago. Objective: BP (!) 154/78 (BP Location: Right arm, Patient Position: Sitting) Pulse 98 Ht (P) 154.9 cm (5' 1) Wt 53.9 kg (118 lb 14.4 oz) BMI (P) 22.47 kg/m General: alert, appears stated age and cooperative Abdomen: soft, bowel sounds active, non-tender Incision: healing well, no drainage, no erythema, no hernia, no seroma, no swelling, no dehiscence, incision well approximated Assessment: Doing well postoperatively. Plan: 1. Continue any current medications. 2. Wound care discussed. 3. Walk as much as tolerated and deep breath frequently to prevent blood clots and pneumonia 4. No lifting over 20# for 2 weeks post op and nothing over 50# for 6 weeks post op 5. Advance diet as tolerated 6. Follow up: as needed JURGEN JOHNSON [facility] 2022-08-12 09:00:00 [facility] CHIEF COMPLAINT No chief complaint on file. SUBJECTIVE Ibis Tay is a 67 y.o. female who presents for follow-up of No chief complaint on file. with diagnosis of: 1. Problem List Items Addressed This Visit Cervical radiculopathy Failed back syndrome - Primary Lumbar spondylosis Patient underwent LESI on 12-19-20She notes 50% improvement but continues with low back and joint pain. She notes that she has prior cervical WAQAR with >50% relief lasting 8-10mos. She feels the pain has recurred and would like to proceed with repeat cervical WAQAR She has tried OTC NSAIDs, daily home exercises/stretching she learned through PT without improvement Since patient's last encounter patient reports persistent chronic pain requiring ongoing treatment. Describes the pain as Sharp and Stabbing Patient rates their pain score 7/10 on average and is tolerable. Patient feels that the medication regimen does help maintain the function, mobility, activity tolerance and pain levels at a tolerable level. Patient states that medications changes or injections are not necessary today Patient states that the pain symptoms are stable. Patient denies new or changing pain complaints. Patient notes that the pain is worse with general activity and improved with rest. Patient 's current pain medication regimen has been reviewed with the patient and they note that the medication regimen is effective and reports that they are taking the medication regimen as prescribed. Patient denies running out of medication early or having an excess supply of medications. Other concerns: no new concerns at this time Patient's current pain medications has been reviewed and includes: DRUG FREQ Percocet qid qid Patient's most recent interventional procedures: PROCEDURE DATE % Relief & Duration Interlaminar Lumbar Epidural Steroid Injection L3 - L4 12/19/20 ROS Constitutional: denies dizziness, sedation, or somnolence Psychological: denies altered mentation or euphoria GI: denies significant constipation or diarrhea Musc: denies acute change in numbness, weakness, or tingling of extemities MEDICATIONS Current Outpatient Medications Medication Sig Dispense Refill - albuterol sulfate hfa 90 mcg/actuation aerosol inhaler INHALE TWO PUFFS BY MOUTH FOUR TIMES A DAY 8.5 g 11 - ALPRAZolam (Xanax) 0.5 MG tablet Take 1 tablet once to twice daily as needed 35 tablet 0 - calcium-vitamin D 500 mg(1,250mg) -200 unit per tablet Take 1 tablet by mouth 2 (two) times a day with meals. 180 tablet 2 - cetirizine (ZyrTEC) 10 MG tablet Take 1 tablet (10 mg total) by mouth once daily. 90 tablet 1 - cholecalciferol (VITAMIN D3) 125 mcg (5,000 unit) capsule Take 1 capsule (5,000 Units total) by mouth once daily. 100 capsule 3 - diaper,brief,adult,disposable Misc 1 application by Miscellaneous route 2 (two) times a day. 96 each 5 - DULoxetine (CYMBALTA) 30 MG capsule Take 1 capsule (30 mg total) by mouth daily every night. 60 capsule 1 - fluticasone propionate (Flovent Diskus) 250 mcg/actuation Disk with Device Inhale 1 puff into the lungs 2 (two) times a day. 60 each 3 - food supplemt, lactose-reduced (Ensure) Liquid Drink 2 bottles per day. Patient requests strawberry. 34229 mL 3 - hydroCHLOROthiazide (HYDRODIURIL) 25 MG tablet TAKE 1/2 TABLET BY MOUTH DAILY 15 tablet 1 - ibandronate (Boniva) 150 mg tablet Take 1 tablet (150 mg total) by mouth every 30 (thirty) days. Take sitting upright once mobnthly on empty stomach with glass of water , dont lay down or eat for full hour 3 tablet 4 - ipratropium-albuteroL (DUO-NEB) 0.5-2.5 mg/3 mL nebulizer NEBULIZE 1 VIAL (3 ML) BY MOUTH FOUR TIMES A DAY 360 mL 1 - lisinopriL (PRINIVIL,ZESTRIL) 5 MG tablet TAKE ONE TABLET BY MOUTH DAILY 30 tablet 1 - misc[place] [facility] [place] for use for breathing problems for duo-nebs treatments 1 each 0 - miscellaneous medical supply [facility] [place] mask, tubing and filter for nebulizer machine to be changed every 3 months. 1 each 3 - miscellaneous medical supply [facility] [place] incontinence pads, 2 per day 100 each 6 - naloxone 2 mg/actuation [place], Non-Aerosol 2 mg by Nasal route as needed. 1-2 daily PRN. Proceed to ER for evaluation immediately following use. 4 each 1 - omeprazole (PriLOSEC) 40 MG capsule Take 1 capsule (40 mg total) by mouth once daily. 30 capsule 7 - ondansetron (Zofran ODT) [address] 1-2 tablets (4-8 mg total) under the tongue every 8 (eight) hours as needed for nausea / vomiting. 30 tablet 5 - oxyCODONE-acetaminophen (Percocet) 10-325 mg tablet Take 1 tablet by mouth every 6 (six) hours as needed for pain. To Last 30days. No early refills Max Daily Amount: 4 tablets 120 tablet 0 - oxyCODONE-acetaminophen (Percocet) 10-325 mg tablet Take 1 tablet by mouth every 6 (six) hours as needed for pain. To Last 30days. No early refills Max Daily Amount: 4 tablets 120 tablet 0 - potassium chloride (KLOR-CON) 10 MEQ CR tablet TAKE TWO TABLETS BY MOUTH TWICE A DAY 120 tablet 1 - prazosin (MINIPRESS) 2 MG capsule TAKE THREE CAPSULES BY MOUTH EVERY EVENING 270 capsule 1 - tiZANidine (ZANAFLEX) 4 MG tablet Take 1 tablet (4 mg total) by mouth 2 (two) times a day. 60 tablet 3 - traZODone (DESYREL) 50 MG tablet Take 0.5-1 tablets (25-50 mg total) by mouth once nightly as needed for sleep. 60 tablet 1 - umeclidinium-vilanteroL (Anoro Ellipta) 62.5-25 mcg/actuation Disk with Device Inhale 1 puff into the lungs once daily. 1 each 6 Current Facility-Administered Medications Medication Dose Route Frequency Provider Last Rate Last Admin - pneumococcal 20-valent vaccine (PREVNAR 20) syringe 0.5 mL IntraMuscular Once Mike Ann Jr., MD ALLERGIES Allergies Allergen Reactions - Penicillins Anaphylaxis - Gabapentin Other (See Comments) severe fatigue - Sulfa (Sulfonamide Antibiotics) Other (See Comments) Blisters inside and outside of mouth. - Wellbutrin [Bupropion Hcl] Other (See Comments) Body numbness and tingling - Diazepam Nausea And Vomiting - Varenicline PHYSICAL EXAM Vital Signs: There were no vitals taken for this visit. Constitutional: Well nourished, well groomed, NAD. CARDIAC: Regular Rate LUNGS: Breathing nonlabored, no wheezing Neurologic: Alert & oriented x 3, normal gait, no focal deficits noted. Psychiatric: Affect normal, judgment normal, mood normal. Other Affected BA/OS: Chronic Opiate Therapy Risk Mitigation: Risk Assessment Evaluation Assessment Morphine Equivalents 60 Date of Last UDS SOAPP-R Score Behavior Risks none Physical Risks none H/o Illegal Substance Abuse denies H/o Alcohol abuse denies OPIATE RISK ASSESSMENT: LOW (Routine medication monitoring, Annual UDS) Assessment is based treating physicians overall evaluation of multiple factors including MME load, age, comorbidity, medication profile, and social risk factors. The risks/benefits of chronic opiate therapy was discussed with patient including failure of therapy, psychological addiction, physiological dependence, and risk withdrawal syndrome. Warning symptoms of potential opiate overuse/overdose were discussed including sedation, somnolence, and altered mentation were reviewed and I counseled patient these symptoms can occur even when patient have been on a stable dose and also can happen despite following physicians instructions. Alternative therapies were discussed including: non-opiate medications, interventional pain procedures, and Cognitive Behavioral Therapy. After discussing these alternatives with the patient, the patient has opted to decline these alternatives at this time. Patient has tried and failed more conservative measures and were either ineffective or intolerant. In my medical opinion non-opiate therapy is not appropriate to address the patient's medical condition at this time and will continue chronic opiate therapy after having addressed efficacy, adverse side effects, and safety of therapy with the patient. The patient indicates understanding of these issues and agrees with the plan. LIFESTYLE COUNSELING: Time was spent discussing the importance of a home exercise program to promote strength, activity endurance and pain tolerance. Patient was also counseled on avoidance of tobacco products for general health as well as improved chronic pain control. ASSESSMENT AND PLAN Problem List Items Addressed This Visit Cervical radiculopathy Failed back syndrome - Primary Lumbar spondylosis PLAN: 1. Patient is stable functional and meeting the goals of chronic opiate therapy without adverse side effects, misuse, or safety concerns. PDMP was reviewed without redflags or other concerns. 2. I counseled her on the importance of maintaining her activity and low-impact exercise such as walking on a daily basis to promote good health and improve chronic pain management. 3. She did very well with recent Cervical WAQAR 4. PAtient notes that she has increasing right knee pain. She has had prior RIGHT TKA. She notes she also has had prior RIGHT genicular RFA for her knee pain which was very effective 3yrs ago. She requests repeat RFA. I will schedule her for repeat genicular nerve RFA for the right knee 5. I will continue her percocet to 10/325 qid and f/u in 4 weeks The patient indicates understanding of these issues and agrees with the plan. I reviewed the patient's medical information and medical history. I have reviewed the past medical, family, and social history sections including the medications and allergies listed in the above medical record. Patient was counseled that in my practice I do not prescribe chronic opiate therapy in the presence of ongoing illegal substance use. Patient was also counseled that drug screen testing is medically necessary from time to time to help stratify risks associated with chronic opiate therapy by assessing compliance with prescribed medications as well as to identify the presence of illegal substances. Consent for drug screen testing is required for continuation of chronic opiate therapy. Electronically signed by: Isaías Cardenas MD, 08/12/2022 9:08 AM [facility] CHIEF COMPLAINT No chief complaint on file. SUBJECTIVE Ibis Tay is a 67 y.o. female who presents for follow-up of No chief complaint on file. with diagnosis of: 1. Problem List Items Addressed This Visit Cervical radiculopathy Failed back syndrome - Primary Lumbar spondylosis Patient underwent LESI on 12-19-20She notes 50% improvement but continues with low back and joint pain. She notes that she has prior cervical WAQAR with >50% relief lasting 8-10mos. She feels the pain has recurred and would like to proceed with repeat cervical WAQAR She has tried OTC NSAIDs, daily home exercises/stretching she learned through PT without improvement Since patient's last encounter patient reports persistent chronic pain requiring ongoing treatment. Describes the pain as Sharp and Stabbing Patient rates their pain score 7/10 on average and is tolerable. Patient feels that the medication regimen does help maintain the function, mobility, activity tolerance and pain levels at a tolerable level. Patient states that medications changes or injections are not necessary today Patient states that the pain symptoms are stable. Patient denies new or changing pain complaints. Patient notes that the pain is worse with general activity and improved with rest. Patient 's current pain medication regimen has been reviewed with the patient and they note that the medication regimen is effective and reports that they are taking the medication regimen as prescribed. Patient denies running out of medication early or having an excess supply of medications. Other concerns: no new concerns at this time Patient's current pain medications has been reviewed and includes: DRUG FREQ Percocet qid qid Patient's most recent interventional procedures: PROCEDURE DATE % Relief & Duration Interlaminar Lumbar Epidural Steroid Injection L3 - L4 12/19/20 ROS Constitutional: denies dizziness, sedation, or somnolence Psychological: denies altered mentation or euphoria GI: denies significant constipation or diarrhea Musc: denies acute change in numbness, weakness, or tingling of extemities MEDICATIONS Current Outpatient Medications Medication Sig Dispense Refill - albuterol sulfate hfa 90 mcg/actuation aerosol inhaler INHALE TWO PUFFS BY MOUTH FOUR TIMES A DAY 8.5 g 11 - ALPRAZolam (Xanax) 0.5 MG tablet Take 1 tablet once to twice daily as needed 35 tablet 0 - calcium-vitamin D 500 mg(1,250mg) -200 unit per tablet Take 1 tablet by mouth 2 (two) times a day with meals. 180 tablet 2 - cetirizine (ZyrTEC) 10 MG tablet Take 1 tablet (10 mg total) by mouth once daily. 90 tablet 1 - cholecalciferol (VITAMIN D3) 125 mcg (5,000 unit) capsule Take 1 capsule (5,000 Units total) by mouth once daily. 100 capsule 3 - diaper,brief,adult,disposable Misc 1 application by Miscellaneous route 2 (two) times a day. 96 each 5 - DULoxetine (CYMBALTA) 30 MG capsule Take 1 capsule (30 mg total) by mouth daily every night. 60 capsule 1 - fluticasone propionate (Flovent Diskus) 250 mcg/actuation Disk with Device Inhale 1 puff into the lungs 2 (two) times a day. 60 each 3 - food supplemt, lactose-reduced (Ensure) Liquid Drink 2 bottles per day. Patient requests strawberry. 52145 mL 3 - hydroCHLOROthiazide (HYDRODIURIL) 25 MG tablet TAKE 1/2 TABLET BY MOUTH DAILY 15 tablet 1 - ibandronate (Boniva) 150 mg tablet Take 1 tablet (150 mg total) by mouth every 30 (thirty) days. Take sitting upright once mobnthly on empty stomach with glass of water , dont lay down or eat for full hour 3 tablet 4 - ipratropium-albuteroL (DUO-NEB) 0.5-2.5 mg/3 mL nebulizer NEBULIZE 1 VIAL (3 ML) BY MOUTH FOUR TIMES A DAY 360 mL 1 - lisinopriL (PRINIVIL,ZESTRIL) 5 MG tablet TAKE ONE TABLET BY MOUTH DAILY 30 tablet 1 - misc[place] medical [place] [facility] [place] machine for use for breathing problems for duo-nebs treatments 1 each 0 - miscellaneous medical supply [facility] [place] mask, tubing and filter for nebulizer machine to be changed every 3 months. 1 each 3 - miscellaneous medical supply [facility] [place] incontinence pads, 2 per day 100 each 6 - naloxone 2 mg/actuation [place], Non-Aerosol 2 mg by Nasal route as needed. 1-2 daily PRN. Proceed to ER for evaluation immediately following use. 4 each 1 - omeprazole (PriLOSEC) 40 MG capsule Take 1 capsule (40 mg total) by mouth once daily. 30 capsule 7 - ondansetron (Zofran ODT) [address] 1-2 tablets (4-8 mg total) under the tongue every 8 (eight) hours as needed for nausea / vomiting. 30 tablet 5 - oxyCODONE-acetaminophen (Percocet) 10-325 mg tablet Take 1 tablet by mouth every 6 (six) hours as needed for pain. To Last 30days. No early refills Max Daily Amount: 4 tablets 120 tablet 0 - oxyCODONE-acetaminophen (Percocet) 10-325 mg tablet Take 1 tablet by mouth every 6 (six) hours as needed for pain. To Last 30days. No early refills Max Daily Amount: 4 tablets 120 tablet 0 - potassium chloride (KLOR-CON) 10 MEQ CR tablet TAKE TWO TABLETS BY MOUTH TWICE A DAY 120 tablet 1 - prazosin (MINIPRESS) 2 MG capsule TAKE THREE CAPSULES BY MOUTH EVERY EVENING 270 capsule 1 - tiZANidine (ZANAFLEX) 4 MG tablet Take 1 tablet (4 mg total) by mouth 2 (two) times a day. 60 tablet 3 - traZODone (DESYREL) 50 MG tablet Take 0.5-1 tablets (25-50 mg total) by mouth once nightly as needed for sleep. 60 tablet 1 - umeclidinium-vilanteroL (Anoro Ellipta) 62.5-25 mcg/actuation Disk with Device Inhale 1 puff into the lungs once daily. 1 each 6 Current Facility-Administered Medications Medication Dose Route Frequency Provider Last Rate Last Admin - pneumococcal 20-valent vaccine (PREVNAR 20) syringe 0.5 mL IntraMuscular Once Mike Ann Jr., MD ALLERGIES Allergies Allergen Reactions - Penicillins Anaphylaxis - Gabapentin Other (See Comments) severe fatigue - Sulfa (Sulfonamide Antibiotics) Other (See Comments) Blisters inside and outside of mouth. - Wellbutrin [Bupropion Hcl] Other (See Comments) Body numbness and tingling - Diazepam Nausea And Vomiting - Varenicline PHYSICAL EXAM Vital Signs: There were no vitals taken for this visit. Constitutional: Well nourished, well groomed, NAD. CARDIAC: Regular Rate LUNGS: Breathing nonlabored, no wheezing Neurologic: Alert & oriented x 3, normal gait, no focal deficits noted. Psychiatric: Affect normal, judgment normal, mood normal. Other Affected BA/OS: Chronic Opiate Therapy Risk Mitigation: Risk Assessment Evaluation Assessment Morphine Equivalents 60 Date of Last UDS SOAPP-R Score Behavior Risks none Physical Risks none H/o Illegal Substance Abuse denies H/o Alcohol abuse denies OPIATE RISK ASSESSMENT: LOW (Routine medication monitoring, Annual UDS) Assessment is based treating physicians overall evaluation of multiple factors including MME load, age, comorbidity, medication profile, and social risk factors. The risks/benefits of chronic opiate therapy was discussed with patient including failure of therapy, psychological addiction, physiological dependence, and risk withdrawal syndrome. Warning symptoms of potential opiate overuse/overdose were discussed including sedation, somnolence, and altered mentation were reviewed and I counseled patient these symptoms can occur even when patient have been on a stable dose and also can happen despite following physicians instructions. Alternative therapies were discussed including: non-opiate medications, interventional pain procedures, and Cognitive Behavioral Therapy. After discussing these alternatives with the patient, the patient has opted to decline these alternatives at this time. Patient has tried and failed more conservative measures and were either ineffective or intolerant. In my medical opinion non-opiate therapy is not appropriate to address the patient's medical condition at this time and will continue chronic opiate therapy after having addressed efficacy, adverse side effects, and safety of therapy with the patient. The patient indicates understanding of these issues and agrees with the plan. LIFESTYLE COUNSELING: Time was spent discussing the importance of a home exercise program to promote strength, activity endurance and pain tolerance. Patient was also counseled on avoidance of tobacco products for general health as well as improved chronic pain control. ASSESSMENT AND PLAN Problem List Items Addressed This Visit Cervical radiculopathy Failed back syndrome - Primary Lumbar spondylosis PLAN: 6. Patient is stable functional and meeting the goals of chronic opiate therapy without adverse side effects, misuse, or safety concerns. PDMP was reviewed without redflags or other concerns. 7. I counseled her on the importance of maintaining her activity and low-impact exercise such as walking on a daily basis to promote good health and improve chronic pain management. 8. Patient underwent RFA of the RIGHT knee and notes significant improvement 9. She notes that she will be undergoing hernia surgery early July 27. I will continue her percocet to 10/325 qid and f/u in 4 weeks The patient indicates understanding of these issues and agrees with the plan. I reviewed the patient's medical information and medical history. I have reviewed the past medical, family, and social history sections including the medications and allergies listed in the above medical record. Patient was counseled that in my practice I do not prescribe chronic opiate therapy in the presence of ongoing illegal substance use. Patient was also counseled that drug screen testing is medically necessary from time to time to help stratify risks associated with chronic opiate therapy by assessing compliance with prescribed medications as well as to identify the presence of illegal substances. Consent for drug screen testing is required for continuation of chronic opiate therapy. Electronically signed by: Isaías Cardenas MD, 08/12/2022 9:08 AM [facility] 2022-07-28 19:53:28 Procedure / Operativ e Note Date: 07/28/22 Attending: Dr. Zheng Roland Residents: Dr. Yuriy Eagle MD Preoperative Diagnosis: Right femoral hernia Postoperative Diagnosis: Right femoral hernia, right direct inguinal hernia Procedures Performed: Robotic assisted, laparoscopic right inguinal and femoral hernia repair with mesh placement Findings: Recurrent right femoral and direct inguinal hernia Indications: Ibis Tay is a 67 y.o. female who presented with complaint of worsening right groin pain. CT was suggestive of a small right femoral hernia defect. She denies obstructive symptoms. Procedural Details: The patient was identified in the pre-operative holding area. The risks and benefits of the operation were again discussed with the patient and informed consent was obtained. Patient was taken to the operating room. The patient was placed under General Anesthesia. A preoperative time out confirming the patient's identity, procedure, site, pre-operative antibiotics, DVT prophylaxis, and any other concerns was performed. The patient was positioned supine. The abdomen was prepped and draped in the usual sterile fashion. The abdomen was accessed via the Optiview technique in the supraumbilical region with a 5 mm Optiview trocar. The abdomen was insufflated with carbon dioxide. A bilateral tap block was performed with 60 cc of quarter percent Marcaine with epinephrine mixed with 60 cc of saline. 2 additional 8 mm robotic trochars were placed under direct laparoscopic vision in the left and right midabdomen. The 5 mm Optiview trocar was exchanged for an 8 mm robotic trocar. The planned mesh and sutures were introduced into the abdomen. At this time the robot was docked. The peritoneum overlying the right inguinal and femoral spaces was taken down with electrocautery. Blunt dissection was used to develop the plane, and a recurrent right femoral hernia was noted, with incarcerated preperitoneal fat. The fat was reduced. A direct hernia defect was also noted. The preperitoneal space was developed bluntly, toensure adequate space for mesh placement. A Bard mesh (Lot HQ [id number], reference [id number]) which had previously been determined and introduced into the abdomen was placed over the right inguinal and femoral region, covering the entire defect. This was secured with an 2-0 Vicryl stitch medially to the Hal's ligament. The peritoneum was closed overlying the mesh with a running 2-0 Prolene V-Loc suture. The mesh was noted to lay flat over the space. The sutures were removed from the abdomen. The robot was undocked. The abdomen was evacuated of carbon dioxide, and the trochars removed under direct laparoscopic vision. The skin incisions were closed with 4-0 Monocryl subcuticular suture, and the incisions were dressed with Exofin. All instrument, towel, and needle counts correct at end of the case. Patient was extubated without incident and taken to post-anesthesia care unit postoperatively. Anesthesia: General Anesthesia ASA: ASA 3 - Severe systemic disease Wound Class: I Estimated Blood Loss: 15 mL Specimens: None Implants: Bard mesh Complications: None Comments: Patient tolerated procedure well. Dr. Zheng Roland was scrubbed for the entire procedure. Yuriy Eagle MD 07/28/2022 7:53 PM General Surgery Resident Pager: [phone] Attending Attestation: - I reviewed operative note documentation provided by my resident including, but not limited to, the pre and post-op diagnosis(es), surgery(ies) performed, description of procedure, and finding(s). - I agree with the resident's operative note documentation unless otherwise noted: No changes. - Procedure: I was present for the entire procedure. Attestation written and electronically signed by: Zheng Roland 07/29/2022 5:00 PM by JONE Coreas [facility] 2022-07-28 16:17:51 H&P Update Ibis Tay Code Status: Prior Primary Care Physician: Mike Ann Jr, MD DOB: 1955 Age: 67 y.o. Date of Service: July 28, 2022 Admit Date: (Not on file) Admitting Diagnosis: Irreducible right femoral hernia [K41.30] Update 1. The H&P Was completed on [address] Eagle. 2. The H&P was reviewed, verified, accepted, and authenticated. 3. The Patient was examined and no change has occurred in the Patient's condition since the H&P was done. Signed: Yuriy Eagle MD 07/28/2022 4:18 PM The case was presented by Dr. Eagle . I saw and examined the patient and agree with the findings in his note and agreed with the treatment strategy. Came to clinic - significant pain and tenderness to ED. She had CT scan. No evidence of hernia dictated. However she has mass/bulge on standing and also has signifcant pain related issues. Cant even stand. Diagnostic laparoscopy was discussed. She understands the risks and possible complications. Also discussed about pain persisting after surgery. JONE Coreas 07/28/2022 5:55 PM [facility] 2022-07-28 15:00:00 Surgical History and Physical Note Ibis Tay Code Status: @RRCODESTATUS@ Primary Care Physician: Mike Ann Jr, MD : 1955 Age: 67 y.o. Date of Service: July 28, 2022 Admit Date: (Not on file) Admitting Diagnosis: No admission diagnoses are documented for this encounter. Subjective: Chief Complaint: Chief Complaint Patient presents with - Pain - Surgical Planning History of present illness: Ibis Tay is a 67 y.o. female who presented to clinic today for evaluation of right groin pain. She presented to [facility] yesterday with complaints of right groin pain. She has past medical history of right femoral/inguinal hernia, malignant neoplasm of upper lobe, degenerative disc disease, anxiety, iliac artery occlusion bilaterally. She reports chronic pain, however pain has intensified over the last day. She reports pain is getting worse when getting out of her vehicle. Coughing makes the pain worse. She reports worsening pain with bowel movements. She reports oxycodone is not providing any pain relief. She denies obstructive symptoms. CT reviewed, concerning for possible small right femoral hernia. Principal Problem: @PPROB@ Patient Active Problem List Diagnosis - Hypercholesteremia - Hyperlipidemia - Generalized anxiety disorder - Smoker - Essential hypertension - Acute bronchitis - AR (allergic rhinitis) - GERD (gastroesophageal reflux disease) - Osteoarthritis of right knee - Arthritis - DDD (degenerative disc disease) - Failed back syndrome - Anxiety state - Cervical disc disease - Cervical radiculopathy - Spinal stenosis - Cervical spondylosis with myelopathy - Screening - History of total knee arthroplasty - Knee pain - Trochanteric bursitis - Knee osteoarthritis - Knee joint replacement status - Hip fracture, left (HCC) - Mild episode of recurrent major depressive disorder (HCC) - S/P total knee arthroplasty - S/P hip hemiarthroplasty- Left - Anxiety state - Pain in joint, lower leg - Routine general medical examination at a health care facility - Osteoarthritis of knee - Vitamin D deficiency - Dyslipidemia - Community acquired pneumonia - COPD exacerbation (HCC) - Hypoxia - Pneumonia of left lower lobe due to infectious organism - Severe sepsis (HCC) - Other chest pain - Pulmonary nodule - Lung cancer (HCC) - Mediastinal lymphadenopathy - Adenocarcinoma of lung, left (HCC) - Malignant neoplasm of upper lobe, left bronchus or lung (HCC) - Acute cystitis without hematuria - Urinary tract infection without hematuria - Fall at home, sequela - Right hand pain - Compression fracture of body of thoracic vertebra (HCC) - Non-small cell carcinoma of lung (HCC) - Vascular disease, peripheral (HCC) - Secondary malignant neoplasm of other specified sites (HCC) - Stricture of artery (HCC) - Lumbar spondylosis - Cervical radiculopathy - Iliac artery occlusion, bilateral (HCC) - Panic disorder - Insomnia due to other mental disorder - PTSD (post-traumatic stress disorder) Past Medical History: Diagnosis Date - Anxiety Takes Xanax - Arthritis - Breast mass 2013 rt axilla - Bronchitis - Bursitis Left hip - Cancer (HCC) left lung cancer, scheduled for left upper lobectomy at [facility] with Dr. Moore - Cervical radiculopathy sees Dr. 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 pylori infection Hx of H pylori infection several months ago treated with medication, no current issues. - H/O pyloric stenosis - Hiatal hernia - HTN (hypertension) - Hypercholesteremia - Hyperlipidemia No current medications or issues. - OA (osteoarthritis) of knee - Oxygen desaturation at night 3.5 liter - Palpitations with anxiety - Peripheral vascular disease (HCC) 10/2020 abdominal pain-stricture liliac artery - Pneumonia 1994 resolved. - PONV (postoperative nausea and vomiting) - PTSD (post-traumatic stress disorder) son was murdered 8 years ago, followed by Dr. Milly Freire - Spinal stenosis cervical - Urinary incontinence - Wears dentures full set - Wears glasses Past Surgical History: Procedure Laterality Date - ESOPHAGEAL DILATION 2012 approx. done with upper endoscopy - KNEE ARTHROPLASTY Right 2010 - LUMBAR FUSION 1995 - LUNG LOBECTOMY Left 10/11/2017 Upper - CO INTRODUCTION CATHETER AORTA Right 11/03/2020 Procedure: ABDOMINAL AORTOGRAM; Surgeon: Imelda Swan MD; Location: [facility]; Service: Vascular - CO TOTAL KNEE ARTHROPLASTY Right 05/28/2014 Procedure: REPLACEMENT TOTAL JOINT KNEE RIGHT / BETO ; Surgeon: Isaak Moncada MD; Location: [facility] OR; Service: Orthopedics - SPINE SURGERY lumbar fusion - TENDON RELEASE Right arm - TOTAL HIP ARTHROPLASTY Left 09/26/14 hip hem-iarthoplasty - TOTAL KNEE ARTHROPLASTY Left 11/23 - TUBAL LIGATION Bilateral - UPPER GASTROINTESTINAL ENDOSCOPY 2012 approx. diagnosed with H. Pylori and esophagus dilated. - UPPER GASTROINTESTINAL ENDOSCOPY Social History Socioeconomic History - Marital status: Spouse name: Not on file - Number of children: Not on file - Years of education: 14 - Highest education level: Not on file Occupational History - Not on file Tobacco Use - Smoking status: Current Every Day Smoker Packs/day: 2.00 Years: 44.00 Pack years: 88.00 Types: Cigarettes, Vaporizer - Smokeless tobacco: Never Used - Tobacco comment: does not completly smoke a cigarette Vaping Use - Vaping Use: Never used Substance and Sexual Activity - Alcohol use: Yes - Drug use: No - Sexual activity: Not Currently Other Topics Concern - Not on file Social History Narrative - Not on file Social Determinants of Health Financial Resource Strain: Not on file Food Insecurity: Not on file Transportation Needs: Not on file Physical Activity: Not on file Stress: Not on file Social Connections: Not on file Intimate Partner Violence: Not on file Family History Family History Problem Relation Age of Onset - Other Other Hx: Yes Dx: Diabetes Fam Mem: Family h/o - Drug abuse Other - Other Other Hx: Yes Dx: Hypertension Fam Mem: Mother - Drug abuse Other - Hypertension Mother - Heart disease Mother - Diabetes Mother - No Known Problem Father - Other Sister - Cancer Sister - Other Other Hx: Yes Dx: Heart disease Fam Mem: Mother - Diabetes Maternal Grandmother (Not in a hospital admission) Allergies Allergen Reactions - Penicillins Anaphylaxis - Gabapentin Other (See Comments) severe fatigue - Sulfa (Sulfonamide Antibiotics) Other (See Comments) Blisters inside and outside of mouth. - Wellbutrin [Bupropion Hcl] Other (See Comments) Body numbness and tingling - Diazepam Nausea And Vomiting - Varenicline Reviewed and updated Past Medical History? yes Review of Systems Full 14 point review of systems was performed and negative except as noted in HPI Objective Physical Exam BP 103/65 Pulse 91 Temp 36.4 C (97.6 F) (Temporal Artery (forehead)) Resp 18 Ht 154.9 cm (5' 1) BMI 22.30 kg/m General appearance: alert, appears stated age and cooperative Head: Normocephalic, without obvious abnormality, atraumatic Eyes: PERRL, EOMI Lungs: Non-labored breathing, equal chest rise Heart: regular rate and rhythm Abdomen: Soft, nontender, nondistended. Patient with right groin tenderness to palpation, right femoral defect palpated. Extremities: extremities normal, atraumatic, no cyanosis or edema Skin: Skin color, texture, turgor normal. No rashes or lesions Neurologic: Grossly normal Diagnostic Findings Labs: Pertinent Labs: Results from last 7 days Lab Units 07/27/221940 WBC k/ul 5.0 MCV fl 88 Results from last 7 days Lab Units 07/27/221940 CALCIUM mg/dl 9.1 BUN mg/dl 12 CREAT mg/dl 0.71 CO2 mmol/L 32.0 Results from last 7 days Lab Units 07/27/221940 AST u/l 8* ALT u/l 14 ALBUMIN gm/dl 3.4* === Recent Results (from the past 2 days) === CT Abdomen Pelvis with Contrast 07/27/2022 9:00 PM - Impression - 1. Intact gallbladder with mild common duct prominence, nonspecific. 2. Dense atherosclerosis. 3. Moderate fecal burden. 4. Chronic scarring right kidney with small left renal cyst. Additional comments: Extensive review of previous medical records completed. Assessment: 67 y.o. female with right femoral hernia Plan: Risks, benefits, alternatives discussed with patient, and informed consent was obtained. Patient agreeable to proceed with surgery. Patient advised that it is possible that surgery might not resolve her pain. Patient agreeable to proceed. Signed: Yuriy Eagle MD 07/28/2022 4:12 PM . The case was presented by Dr. Eagle. I saw and examined the patient and agree with the findings in his note and agreed with the treatment strategy. Right groin pain. ? Hernia with incarcerated fat. Diagnostic laparoscopy. JONE Coreas 08/08/2022 3:05 PM [facility] 2022-07-27 19:05:34 Attestation signed by Quang Grimm DO at 07/30/2022 7:36 AM Patient was seen independently by midlevel provider. Agree with assessment and plan [facility] EMER[facility] dEPARTMENT eNCOUnter Pt Name: Ibis Tay Birthdate 1955 Date of evaluation: 07/27/2022 Provider: Sherri Ferreira APRN CHIEF COMPLAINT Chief Complaint Patient presents with - Groin Pain Known hernia in right groin, surgery scheduled 08/12/22, states pain increasing Critical Care was not performed on this patient HISTORY OF PRESENT ILLNESS (Location/Symptom, Timing/Onset, Context/Setting, Quality, Duration, Modifying Factors, Severity.) Ibis Tay is a 67 y.o. female who presents to the emergency department for groin pain with a past medical history of right femoral/inguinal hernia, malignant neoplasm of upper lobe, degenerative disc disease, anxiety, iliac artery occlusion bilaterally. Patient reports having a chronic pain however today the pain is intensified. She states that she was getting out of her vehicle and taking some things into the house when her pain became worse. She reports her coughing makes the pain worse. She reports having a prescription for oxycodone but that is not providing her with any relief. He is requesting Dilaudid for further relief. She denies fevers, abdominal pain, chest pain, shortness of breath, changes to bladder and bowel. Nursing Notes were reviewed. REVIEW OF SYSTEMS (2-9 systems for level 4, 10 or more for level 5) Review of Systems Constitutional: Negative for fever and unexpected weight change. HENT: Negative for hearing loss and nosebleeds. Eyes: Negative for pain and visual disturbance. Respiratory: Negative for cough, chest tightness and shortness of breath. Cardiovascular: Negative for chest pain. Gastrointestinal: Positive for abdominal pain. Negative for blood in stool. Genitourinary: Negative for dysuria and hematuria. Musculoskeletal: Negative for arthralgias and myalgias. Skin: Negative for color change. Neurological: Negative for seizures, syncope and weakness. Except as noted above the remainder of the review of systems was reviewed and negative. PAST MEDICAL HISTORY Past Medical History: Diagnosis Date - Anxiety Takes Xanax - Arthritis - Breast mass 2013 rt axilla - Bronchitis - Bursitis Left hip - Cancer (HCC) left lung cancer, scheduled for left upper lobectomy at [facility] with Dr. Moore - Cervical radiculopathy sees Dr. Cardenas, gets cervical pain injections every 3 months, last done in - COPD (chronic obstructive pulmonary disease) ([facility]) - DDD (degenerative disc disease) - Depression dr. 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 pylori infection Hx of H pylori infection several months ago treated with medication, no current issues. - H/O pyloric stenosis - Hiatal hernia - HTN (hypertension) - Hypercholesteremia - Hyperlipidemia No current medications or issues. - OA (osteoarthritis) of knee - Oxygen desaturation at night 3.5 liter - Palpitations with anxiety - Peripheral vascular disease (HCC) 10/2020 abdominal pain-stricture liliac artery - Pneumonia 1994 resolved. - PONV (postoperative nausea and vomiting) - PTSD (post-traumatic stress disorder) son was murdered 8 years ago, followed by Dr. Milly Freire - Spinal stenosis cervical - Urinary incontinence - Wears dentures full set - Wears glasses SURGICAL HISTORY Past Surgical History: Procedure Laterality Date - ESOPHAGEAL DILATION 2012 approx. done with upper endoscopy - KNEE ARTHROPLASTY Right 2010 - LUMBAR FUSION 1995 - LUNG LOBECTOMY Left 10/11/2017 Upper - CO INTRODUCTION CATHETER AORTA Right 11/03/2020 Procedure: ABDOMINAL AORTOGRAM; Surgeon: Imleda Swan MD; Location: [facility]; Service: Vascular - CO TOTAL KNEE ARTHROPLASTY Right 05/28/2014 Procedure: REPLACEMENT TOTAL JOINT KNEE RIGHT / BETO ; Surgeon: Isaak Moncada MD; Location: [facility] OR; Service: Orthopedics - SPINE SURGERY lumbar fusion - TENDON RELEASE Right arm - TOTAL HIP ARTHROPLASTY Left 09/26/14 hip hem-iarthoplasty - TOTAL KNEE ARTHROPLASTY Left 11/23 - TUBAL LIGATION Bilateral - UPPER GASTROINTESTINAL ENDOSCOPY 2012 approx. diagnosed with H. Pylori and esophagus dilated. - UPPER GASTROINTESTINAL ENDOSCOPY CURRENT MEDICATIONS Current Facility-Administered Medications on File Prior to Encounter Medication Dose Route Frequency Provider Last Rate Last Admin - pneumococcal 20-valent vaccine (PREVNAR 20) syringe 0.5 mL IntraMuscular Once Mike Ann Jr., MD Current Outpatient Medications on File Prior to Encounter Medication Sig Dispense Refill - albuterol sulfate hfa 90 mcg/actuation aerosol inhaler INHALE TWO PUFFS BY MOUTH FOUR TIMES A DAY 8.5 g 11 - ALPRAZolam (Xanax) 0.5 MG tablet Take 1 tablet once to twice daily as needed 40 tablet 0 - calcium-vitamin D 500 mg(1,250mg) -200 unit per tablet Take 1 tablet by mouth 2 (two) times a day with meals. 180 tablet 2 - cetirizine (ZyrTEC) 10 MG tablet Take 1 tablet (10 mg total) by mouth once daily. 90 tablet 1 - cholecalciferol (VITAMIN D3) 125 mcg (5,000 unit) capsule Take 1 capsule (5,000 Units total) by mouth once daily. 100 capsule 3 - diaper,brief,adult,disposable Misc 1 application by Miscellaneous route 2 (two) times a day. 96 each 5 - DULoxetine (CYMBALTA) 30 MG capsule Take 1 capsule (30 mg total) by mouth daily every night. 60 capsule 1 - fluticasone propionate (Flovent Diskus) 250 mcg/actuation Disk with Device Inhale 1 puff into the lungs 2 (two) times a day. 60 each 3 - food supplemt, lactose-reduced (Ensure) Liquid Drink 2 bottles per day. Patient requests strawberry. 03578 mL 3 - hydroCHLOROthiazide (HYDRODIURIL) 25 MG tablet TAKE 1/2 TABLET BY MOUTH DAILY 15 tablet 1 - ibandronate (Boniva) 150 mg tablet Take 1 tablet (150 mg total) by mouth every 30 (thirty) days. Take sitting upright once mobnthly on empty stomach with glass of water , dont lay down or eat for full hour 3 tablet 4 - ipratropium-albuteroL (DUO-NEB) 0.5-2.5 mg/3 mL nebulizer NEBULIZE 1 VIAL (3 ML) BY MOUTH FOUR TIMES A DAY 360 mL 1 - lisinopriL (PRINIVIL,ZESTRIL) 5 MG tablet TAKE ONE TABLET BY MOUTH DAILY 30 tablet 1 - [place] [facility] [place] for use for breathing problems for duo-nebs treatments 1 each 0 - misc[place] medical [place] [facility] [place] mask, tubing and filter for nebulizer machine to be changed every 3 months. 1 each 3 - miscellaneous medical [place] [facility] [place] incontinence pads, 2 per day 100 each 6 - naloxone 2 mg/actuation [place], Non-Aerosol 2 mg by Nasal route as needed. 1-2 daily PRN. Proceed to ER for evaluation immediately following use. 4 each 1 - omeprazole (PriLOSEC) 40 MG capsule Take 1 capsule (40 mg total) by mouth once daily. 30 capsule 7 - ondansetron (Zofran ODT) [address] 1-2 tablets (4-8 mg total) under the tongue every 8 (eight) hours as needed for nausea / vomiting. 30 tablet 5 - oxyCODONE-acetaminophen (Percocet) 10-325 mg tablet Take 1 tablet by mouth every 6 (six) hours as needed for pain. To Last 30days. No early refills Max Daily Amount: 4 tablets 120 tablet 0 - oxyCODONE-acetaminophen (Percocet) 10-325 mg tablet Take 1 tablet by mouth every 6 (six) hours as needed for pain. To Last 30days. No early refills Max Daily Amount: 4 tablets 120 tablet 0 - potassium chloride (KLOR-CON) 10 MEQ CR tablet TAKE TWO TABLETS BY MOUTH TWICE A DAY 120 tablet 1 - prazosin (MINIPRESS) 2 MG capsule TAKE THREE CAPSULES BY MOUTH EVERY EVENING 270 capsule 1 - [DISCONTINUED] ProAir HFA 90 mcg/actuation inhaler INHALE TWO PUFFS BY MOUTH FOUR TIMES A DAY 8.5 g 11 - tiZANidine (ZANAFLEX) 4 MG tablet Take 1 tablet (4 mg total) by mouth 2 (two) times a day. 60 tablet 3 - tiZANidine (ZANAFLEX) 4 MG tablet Take 1 tablet (4 mg total) by mouth 2 (two) times a day for 30 days. 60 tablet 5 - traZODone (DESYREL) 50 MG tablet Take 0.5-1 tablets (25-50 mg total) by mouth once nightly as needed for sleep. 60 tablet 1 - umeclidinium-vilanteroL (Anoro Ellipta) 62.5-25 mcg/actuation Disk with Device Inhale 1 puff into the lungs once daily. 1 each 6 ALLERGIES Penicillins, Gabapentin, Sulfa (sulfonamide antibiotics), Wellbutrin [bupropion hcl], Diazepam, and Varenicline FAMILY HISTORY Family History Problem Relation Age of Onset - Other Other Hx: Yes Dx: Diabetes Fam Mem: Family h/o - Drug abuse Other - Other Other Hx: Yes Dx: Hypertension Fam Mem: Mother - Drug abuse Other - Hypertension Mother - Heart disease Mother - Diabetes Mother - No Known Problem Father - Other Sister - Cancer Sister - Other Other Hx: Yes Dx: Heart disease Fam Mem: Mother - Diabetes Maternal Grandmother SOCIAL HISTORY Social History Tobacco Use - Smoking status: Current Every Day Smoker Packs/day: 2.00 Years: 44.00 Pack years: 88.00 Types: Cigarettes, Vaporizer - Smokeless tobacco: Never Used - Tobacco comment: does not completly smoke a cigarette Vaping Use - Vaping Use: Never used Substance Use Topics - Alcohol use: Yes - Drug use: No Past Medical, Family and Social History have been reviewed PHYSICAL EXAM (up to 7 for level 4, 8 or more for level 5) Vitals: 07/27/22201407/27/22 2030 07/27/22 2130 07/27/22 2135 BP: 118/58 137/62 125/64 125/64 BP Location: Right arm Patient Position: Sitting Pulse: 78 79 79 Resp: 20 Temp: 36.8 C (98.2 F) TempSrc: SpO2: 95% 99% 96% 96% Weight: Height: Physical Exam Vitals and nursing note reviewed. Constitutional: General: She is in acute distress (pain). Appearance: Normal appearance. She is well-developed and normal weight. She is not ill-appearing or toxic-appearing. HENT: Head: Normocephalic and atraumatic. Right Ear: External ear normal. Left Ear: External ear normal. Mouth/Throat: Pharynx: No oropharyngeal exudate. Eyes: General: No scleral icterus. Conjunctiva/sclera: Conjunctivae normal. Neck: Thyroid: No thyromegaly. Trachea: No tracheal deviation. Cardiovascular: Rate and Rhythm: Normal rate. Heart sounds: Normal heart sounds. No murmur heard. Pulmonary: Effort: Pulmonary effort is normal. No respiratory distress. Breath sounds: Normal breath sounds. No wheezing. Abdominal: General: Bowel sounds are normal. Palpations: Abdomen is soft. There is no mass. Tenderness: There is abdominal tenderness (RLQ). Musculoskeletal: General: No tenderness. Cervical back: Normal range of motion and neck supple. Skin: General: Skin is warm and dry. Neurological: Mental Status: She is alert and oriented to person, place, and time. DIAGNOSTIC RESULTS EKG: All EKG's are interpreted by the Emergency Department Physician who either signs or Co-signs this chart in the absence of a contact center associate. RADIOLOGY: Non-plain film images such as CT, Ultrasound and MRI are read by the radiologist. Plain radiographic images are visualized and preliminarily interpreted by the emergency physician with the below findings: Interpretation per the Radiologist below, if available at the time of this note: CT Abdomen Pelvis with Contrast Final Result 1. Intact gallbladder with mild common duct prominence, nonspecific. 2. Dense atherosclerosis. 3. Moderate fecal burden. 4. Chronic scarring right kidney with small left renal cyst. LABS: ED Lab Results Procedure Component Value Ref Range Date/Time Urinalysis [[id number]] (Abnormal) Collected: 07/27/221954 Order Status: Completed Specimen: Urine Updated: 07/27/222017 Color, UA Yellow Yellow Appearance Clear Clear Glucose, UA Negative Negative Bilirubin, UA Small Negative Ketones, UA Negative Negative Specific [place], UA 1.030 <=1.030 Blood, UA Negative Negative pH, UA 6.0 4.5 - 8.0 Protein, UA Negative Negative Urobilinogen, UA 0.2 0.2 - 1.0 EU/dl Nitrite, UA Negative Negative Leukocyte Esterase Trace Negative CBC auto differential [[id number]] Collected: 07/27/221940 Order Status: Completed Specimen: Blood Updated: 07/27/221953 WBC 5.0 4.0 - 12.0 k/ul RBC 4.83 3.50 - 5.30 m/ul HEMOGLOBIN 13.2 12.0 - 16.0 gm/dl Hematocrit 42.3 36.0 - 48.0 % MCV 88 80 - 100 fl MCH 27.3 26.0 - 34.0 pg MCHC 31.2 30.0 - 37.0 gm/dl RDW 13.1 11.5 - 15.0 % Platelet Count 241 140 - 440 k/ul MPV 9.5 8.5 - 12.5 fl Neutrophils % 57 % Immature Granulocytes % 0 % Lymphs % 36 % Monocytes % 5 % Eosinophils Percent 2 % Basophils Percent 0 % Neutrophils Abs 2.8 1.5 - 8.0 k/ul Immature Granulocytes Abs 0.0 0.0 - 0.1 k/ul Lymphs Abs 1.8 1.0 - 4.5 k/ul Monocytes Abs 0.2 0.1 - 1.1 k/ul Eosinophils Absolute 0.1 0.0 - 0.4 k/ul Basophils Absolute 0.0 0.0 - 0.1 k/ul Comprehensive metabolic panel [[id number]] (Abnormal) Collected: 07/27/221940 Order Status: Completed Specimen: Blood Updated: 07/27/222008 Glucose 101 70 - 100 mg/dl BUN 12 6 - 24 mg/dl Creatinine 0.71 0.50 - 1.10 mg/dl Sodium 142 135 - 145 mmol/L Potassium 3.6 3.7 - 5.1 mmol/L Chloride 108 96 - 110 mmol/L CO2 32.0 22.0 - 32.0 mmol/L Anion Gap 6 <=20 mmol/L Calcium 9.1 8.5 - 10.5 mg/dl Total Protein 6.4 6.0 - 8.4 gm/dl Albumin 3.4 3.5 - 5.0 gm/dl Globulin 3.0 2.0 - 4.4 gm/dl AST 8 10 - 40 u/l Alkaline Phosphatase 93 33 - 138 u/l Total Bilirubin 0.2 0.0 - 1.5 mg/dl ALT 14 12 - 78 u/l GFR Estimate >90 >=90 mL/min/1.73 m2 All other labs were within normal range or not returned as of this dictation. EMERGENCY DEPARTMENT COURSE and DIFFERENTIAL DIAGNOSIS / MDM: Vitals: ) Vitals: 07/27/22 2015 07/27/22 2030 07/27/22 2130 07/27/222134 BP: 118/58 137/62 125/64 125/64 BP Location: Right arm Patient Position: Sitting Pulse: 78 79 79 Resp: 20 Temp: 36.8 C (98.2 F) TempSrc: SpO2: 95% 99% 96% 96% Weight: Height: Ibis Tay 67 y.o. female who presents to the emergency department for groin pain with a past medical history of right femoral/inguinal hernia, malignant neoplasm of upper lobe, degenerative disc disease, anxiety, iliac artery occlusion bilaterally. Patient reports having a chronic pain however today the pain is intensified. She states that she was getting out of her vehicle and taking some things into the house when her pain became worse. She reports her coughing makes the pain worse. She reports having a prescription for oxycodone but that is not providing her with any relief. He is requesting Dilaudid for further relief. She denies fevers, abdominal pain, chest pain, shortness of breath, changes to bladder and bowel. Upon initial assessment patient appears to be in pain. There is no mass that is reproducible at this time. Patient reports that it will go in and out on its own. Patient was interviewed and examined. History and physical exam performed with above findings. Reviewed external records via from primary care physician. A wide differential diagnosis was considered to exclude life and limb threatening emergency.Differential diagnosis includes but not limited to: Hernia strangulation, inguinal hernia, appendicitis, kidney stone. Plan: Obtain lab work, urinalysis, CT abdomen of pelvis with contrast. CBC and CMP are unremarkable. Urinalysis is negative. CT abdomen pelvis with contrast was read by radiology reading that her fecal burden, all else unremarkable. DIscussed at length the lab and radiological findings with the patient and/or family. Discussed this with the patient and patient is comfortable with this plan. No further questions or concerns at this time. Patient voiced understanding of return precautions. Patient was advised to follow-up with primary care tomorrow morning. Medications provided in the emergency department are listed below: Administered Meds Date/Time Order Dose Route Action Comments 07/27/20221944 HYDROmorphone (DILAUDID) syringe 0.5 mg 0.5 mg IntraVENous Given 07/27/20222049 iopamidoL (ISOVUE-370) 370 mg iodine /mL (76 %) injection 75 mL 75 mL IntraVENous Given 07/27/20222129 HYDROmorphone (DILAUDID) syringe 0.5 mg 0.5 mg IntraVENous Given At this time I feel the patient is safe for discharge. I have discussed the diagnoses and the need for follow-up outside of the ER since the ER is a place for emergency very well needs outpatient follow-up. Patient understands that they are to return to the emergency department or call their PCP immediately if they have worsening/changing pain, persistent symptoms, problems, questions, or concerns. Patient agrees to contact her primary care provider and make a follow-up appointment tomorrow morning. Patient and/or family verbalize understanding of instructions and are agreeable with this plan of care at this time. They are discharged in a safe and stable condition. If they have received any sedating medication as part of their visit today that they were told that for the safety, and the safety of others, they should not drive or operate machinery until the medication completely wears off, and they can think clearly and react easily. They were advised not to make important decisions or sign important papers Blood pressure screening Pre-hypertension/hypertension: The patient has been informed that they may have pre- hypertension or hypertension based on a blood pressure reading in the emergency department. I recommend that the patient call their primary care provider listed on their discharge instructions or a physician of their choice this week to arrange follow-up for further motion of possible pre-hypertension or hypertension. CONSULTS: None PROCEDURES: Procedures CRITICAL CARE TIME Total Critical Care time was 0 minutes, excluding separately reportable procedures. There was a high probability of clinically significant/life threatening deterioration in the patient's condition which required my urgent intervention. FINAL IMPRESSION ED Diagnosis Final diagnosis Drug-induced constipation DISPOSITION Discharge [1] 07/27/2022 9:17 PM PATIENT REFERRED TO: Mike Ann Jr., MD [address] [facility] [address] [facility] [id number] Call in 1 day DISCHARGE MEDICATIONS: Medication List ASK your doctor about these medications albuterol 90 mcg/actuation inhaler Quantity: 8.5 g Commonly known as: PROAIR HFA;PROVENTIL HFA;VENTOLIN HFA INHALE TWO PUFFS BY MOUTH FOUR TIMES A DAY ALPRAZolam 0.5 MG tablet Quantity: 40 tablet Commonly known as: Xanax Take 1 tablet once to twice daily as needed Anoro Ellipta 62.5-25 mcg/actuation Dsdv Quantity: 1 each Generic drug: umeclidinium-vilanteroL Inhale 1 puff into the lungs once daily. calcium-vitamin D 500 mg(1,250mg) -200 unit per tablet Quantity: 180 tablet Take 1 tablet by mouth 2 (two) times a day with meals. cetirizine 10 MG tablet Quantity: 90 tablet Commonly known as: ZyrTEC Take 1 tablet (10 mg total) by mouth once daily. cholecalciferol 125 mcg (5,000 unit) capsule Quantity: 100 capsule Commonly known as: VITAMIN D3 Take 1 capsule (5,000 Units total) by mouth once daily. diaper,brief,adult,disposable Misc Quantity: 96 each 1 application by Miscellaneous route 2 (two) times a day. DULoxetine 30 MG capsule Quantity: 60 capsule Commonly known as: CYMBALTA Take 1 capsule (30 mg total) by mouth daily every night. Ensure Liqd Quantity: 29693 mL Generic drug: food supplemt, lactose-reduced Drink 2 bottles per day. Patient requests strawberry. Flovent Diskus 250 mcg/actuation Dsdv Quantity: 60 each Generic drug: fluticasone propionate Inhale 1 puff into the lungs 2 (two) times a day. hydroCHLOROthiazide 25 MG tablet Quantity: 15 tablet Commonly known as: HYDRODIURIL TAKE 1/2 TABLET BY MOUTH DAILY ibandronate 150 mg tablet Quantity: 3 tablet Commonly known as: Boniva Take 1 tablet (150 mg total) by mouth every 30 (thirty) days. Take sitting upright once mobnthly on empty stomach with glass of water , dont lay down or eat for full hour ipratropium-albuteroL 0.5-2.5 mg/3 mL nebulizer Quantity: 360 mL Commonly known as: DUO-NEB NEBULIZE 1 VIAL (3 ML) BY MOUTH FOUR TIMES A DAY lisinopriL 5 MG tablet Quantity: 30 tablet Commonly known as: PRINIVIL,ZESTRIL TAKE ONE TABLET BY MOUTH DAILY * miscellaneous medical supply Misc Quantity: 1 each Needs nebulizer machine for use for breathing problems for duo-nebs treatments * miscellaneous medical supply Misc Quantity: 1 each Needs mask, tubing and filter for nebulizer machine to be changed every 3 months. * miscellaneous medical supply Misc Quantity: 100 each Requests incontinence pads, 2 per day naloxone 2 mg/actuation [place] Quantity: 4 each 2 mg by Nasal route as needed. 1-2 daily PRN. Proceed to ER for evaluation immediately following use. omeprazole 40 MG capsule Quantity: 30 capsule Commonly known as: PriLOSEC Take 1 capsule (40 mg total) by mouth once daily. ondansetron 4 MG disintegrating tablet Quantity: 30 tablet Commonly known as: Zofran ODT Place 1-2 tablets (4-8 mg total) under the tongue every 8 (eight) hours as needed for nausea / vomiting. * oxyCODONE-acetaminophen 10-325 mg tablet Quantity: 120 tablet Commonly known as: Percocet Take 1 tablet by mouth every 6 (six) hours as needed for pain. To Last 30days. No early refills Max Daily Amount: 4 tablets * oxyCODONE-acetaminophen 10-325 mg tablet Quantity: 120 tablet Commonly known as: Percocet Take 1 tablet by mouth every 6 (six) hours as needed for pain. To Last 30days. No early refills Max Daily Amount: 4 tablets potassium chloride 10 MEQ CR tablet Quantity: 120 tablet Commonly known as: KLOR-CON TAKE TWO TABLETS BY MOUTH TWICE A DAY prazosin 2 MG capsule Quantity: 270 capsule Commonly known as: MINIPRESS TAKE THREE CAPSULES BY MOUTH EVERY EVENING * tiZANidine 4 MG tablet Quantity: 60 tablet Commonly known as: ZANAFLEX Take 1 tablet (4 mg total) by mouth 2 (two) times a day. * tiZANidine 4 MG tablet Quantity: 60 tablet Commonly known as: ZANAFLEX Take 1 tablet (4 mg total) by mouth 2 (two) times a day for 30 days. traZODone 50 MG tablet Quantity: 60 tablet Commonly known as: DESYREL Take 0.5-1 tablets (25-50 mg total) by mouth once nightly as needed for sleep. * This list has 7 medication(s) that are the same as other medications prescribed for you. Read the directions carefully, and ask your doctor or other care provider to review them with you. (Please note that portions of this note were completed with a voice recognition program. Efforts were made to edit the dictations but occasionally words are mis-transcribed.) Sherri Ferreira, MITALI Ferreira APRN 07/27/22 2336 Quang Grimm DO 07/30/22 [address] [facility] 2022-06-29 08:50:00 [facility] CHIEF COMPLAINT No chief complaint on file. SUBJECTIVE Ibis Tay is a 67 y.o. female who presents for follow-up of No chief complaint on file. with diagnosis of: 1. Problem List Items Addressed This Visit Cervical radiculopathy Relevant Medications oxyCODONE-acetaminophen (Percocet) 10-325 mg tablet (Start on 07/16/2022) tiZANidine (ZANAFLEX) 4 MG tablet Failed back syndrome Relevant Medications tiZANidine (ZANAFLEX) 4 MG tablet Lumbar spondylosis Relevant Medications oxyCODONE-acetaminophen (Percocet) 10-325 mg tablet (Start on 07/16/2022) tiZANidine (ZANAFLEX) 4 MG tablet Osteoarthritis of knee Relevant Medications oxyCODONE-acetaminophen (Percocet) 10-325 mg tablet (Start on 07/16/2022) tiZANidine (ZANAFLEX) 4 MG tablet Patient underwent LESI on 21She notes 50% improvement but continues with low back and joint pain. She notes that she has prior cervical WAQAR with >50% relief lasting 8-10mos. She feels the pain has recurred and would like to proceed with repeat cervical WAQAR She has tried OTC NSAIDs, daily home exercises/stretching she learned through PT without improvement Since patient's last encounter patient reports persistent chronic pain requiring ongoing treatment. Describes the pain as Sharp and Stabbing Patient rates their pain score 7/10 on average and is tolerable. Patient feels that the medication regimen does help maintain the function, mobility, activity tolerance and pain levels at a tolerable level. Patient states that medications changes or injections are not necessary today Patient states that the pain symptoms are stable. Patient denies new or changing pain complaints. Patient notes that the pain is worse with general activity and improved with rest. Patient 's current pain medication regimen has been reviewed with the patient and they note that the medication regimen is effective and reports that they are taking the medication regimen as prescribed. Patient denies running out of medication early or having an excess supply of medications. Other concerns: no new concerns at this time Patient's current pain medications has been reviewed and includes: DRUG FREQ Percocet qid qid Patient's most recent interventional procedures: PROCEDURE DATE % Relief & Duration Interlaminar Lumbar Epidural Steroid Injection L3 - L4 12/19/20 ROS Constitutional: denies dizziness, sedation, or somnolence Psychological: denies altered mentation or euphoria GI: denies significant constipation or diarrhea Musc: denies acute change in numbness, weakness, or tingling of extemities MEDICATIONS Current Outpatient Medications Medication Sig Dispense Refill - ALPRAZolam (Xanax) 0.5 MG tablet Take 1 tablet once to twice daily as needed 45 tablet 0 - calcium-vitamin D 500 mg(1,250mg) -200 unit per tablet Take 1 tablet by mouth 2 (two) times a day with meals. 180 tablet 2 - cetirizine (ZyrTEC) 10 MG tablet Take 1 tablet (10 mg total) by mouth once daily. 90 tablet 1 - cholecalciferol (VITAMIN D3) 125 mcg (5,000 unit) capsule Take 1 capsule (5,000 Units total) by mouth once daily. 100 capsule 3 - diaper,brief,adult,disposable Misc 1 application by Miscellaneous route 2 (two) times a day. 96 each 5 - DULoxetine (CYMBALTA) 30 MG capsule Take 1 capsule (30 mg total) by mouth daily every night. 60 capsule 1 - fluticasone propionate (Flovent Diskus) 250 mcg/actuation Disk with Device Inhale 1 puff into the lungs 2 (two) times a day. 60 each 3 - food supplemt, lactose-reduced (Ensure) Liquid Drink 2 bottles per day. Patient requests strawberry. 95642 mL 3 - hydroCHLOROthiazide (HYDRODIURIL) 25 MG tablet TAKE 1/2 TABLET BY MOUTH DAILY 15 tablet 1 - ibandronate (Boniva) 150 mg tablet Take 1 tablet (150 mg total) by mouth every 30 (thirty) days. Take sitting upright once mobnthly on empty stomach with glass of water , dont lay down or eat for full hour 3 tablet 4 - ipratropium-albuteroL (DUO-NEB) 0.5-2.5 mg/3 mL nebulizer NEBULIZE 1 VIAL (3 ML) BY MOUTH FOUR TIMES A DAY 360 mL 1 - lisinopriL (PRINIVIL,ZESTRIL) 5 MG tablet TAKE ONE TABLET BY MOUTH DAILY 30 tablet 1 - miscellaneous medical [place] [facility] [place] machine for use for breathing problems for duo-nebs treatments 1 each 0 - miscellaneous medical supply [facility] [place] mask, tubing and filter for nebulizer machine to be changed every 3 months. 1 each 3 - miscellaneous medical supply [facility] [place]s incontinence pads, 2 per day 100 each 6 - naloxone 2 mg/actuation [place], Non-Aerosol 2 mg by Nasal route as needed. 1-2 daily PRN. Proceed to ER for evaluation immediately following use. 4 each 1 - omeprazole (PriLOSEC) 40 MG capsule Take 1 capsule (40 mg total) by mouth once daily. 30 capsule 7 - ondansetron (Zofran ODT) [address] 1-2 tablets (4-8 mg total) under the tongue every 8 (eight) hours as needed for nausea / vomiting. 30 tablet 5 - oxyCODONE-acetaminophen (Percocet) 10-325 mg tablet Take 1 tablet by mouth every 6 (six) hours as needed for pain. To Last 30days. No early refills Max Daily Amount: 4 tablets 120 tablet 0 - [START ON 07/16/2022] oxyCODONE-acetaminophen (Percocet) 10-325 mg tablet Take 1 tablet by mouth every 6 (six) hours as needed for pain. To Last 30days. No early refills Max Daily Amount: 4 tablets 120 tablet 0 - potassium chloride (KLOR-CON) 10 MEQ CR tablet TAKE TWO TABLETS BY MOUTH TWICE A DAY 120 tablet 1 - prazosin (MINIPRESS) 2 MG capsule TAKE THREE CAPSULES BY MOUTH EVERY EVENING 270 capsule 1 - ProAir HFA 90 mcg/actuation inhaler INHALE TWO PUFFS BY MOUTH FOUR TIMES A DAY 8.5 g 11 - tiZANidine (ZANAFLEX) 4 MG tablet Take 1 tablet (4 mg total) by mouth 2 (two) times a day. 60 tablet 3 - tiZANidine (ZANAFLEX) 4 MG tablet Take 1 tablet (4 mg total) by mouth 2 (two) times a day for 30 days. 60 tablet 5 - traZODone (DESYREL) 50 MG tablet Take 0.5-1 tablets (25-50 mg total) by mouth once nightly as needed for sleep. 60 tablet 1 - umeclidinium-vilanteroL (Anoro Ellipta) 62.5-25 mcg/actuation Disk with Device Inhale 1 puff into the lungs once daily. 1 each 6 Current Facility-Administered Medications Medication Dose Route Frequency Provider Last Rate Last Admin - pneumococcal 20-valent vaccine (PREVNAR 20) syringe 0.5 mL IntraMuscular Once Mike Ann Jr., MD ALLERGIES Allergies Allergen Reactions - Penicillins Anaphylaxis - Gabapentin Other (See Comments) severe fatigue - Sulfa (Sulfonamide Antibiotics) Other (See Comments) Blisters inside and outside of mouth. - Wellbutrin [Bupropion Hcl] Other (See Comments) Body numbness and tingling - Diazepam Nausea And Vomiting - Varenicline PHYSICAL EXAM Vital Signs: There were no vitals taken for this visit. Constitutional: Well nourished, well groomed, NAD. CARDIAC: Regular Rate LUNGS: Breathing nonlabored, no wheezing Neurologic: Alert & oriented x 3, normal gait, no focal deficits noted. Psychiatric: Affect normal, judgment normal, mood normal. Other Affected BA/OS: Chronic Opiate Therapy Risk Mitigation: Risk Assessment Evaluation Assessment Morphine Equivalents 60 Date of Last UDS SOAPP-R Score Behavior Risks none Physical Risks none H/o Illegal Substance Abuse denies H/o Alcohol abuse denies OPIATE RISK ASSESSMENT: LOW (Routine medication monitoring, Annual UDS) Assessment is based treating physicians overall evaluation of multiple factors including MME load, age, comorbidity, medication profile, and social risk factors. The risks/benefits of chronic opiate therapy was discussed with patient including failure of therapy, psychological addiction, physiological dependence, and risk withdrawal syndrome. Warning symptoms of potential opiate overuse/overdose were discussed including sedation, somnolence, and altered mentation were reviewed and I counseled patient these symptoms can occur even when patient have been on a stable dose and also can happen despite following physicians instructions. Alternative therapies were discussed including: non-opiate medications, interventional pain procedures, and Cognitive Behavioral Therapy. After discussing these alternatives with the patient, the patient has opted to decline these alternatives at this time. Patient has tried and failed more conservative measures and were either ineffective or intolerant. In my medical opinion non-opiate therapy is not appropriate to address the patient's medical condition at this time and will continue chronic opiate therapy after having addressed efficacy, adverse side effects, and safety of therapy with the patient. The patient indicates understanding of these issues and agrees with the plan. LIFESTYLE COUNSELING: Time was spent discussing the importance of a home exercise program to promote strength, activity endurance and pain tolerance. Patient was also counseled on avoidance of tobacco products for general health as well as improved chronic pain control. ASSESSMENT AND PLAN Problem List Items Addressed This Visit Cervical radiculopathy Relevant Medications oxyCODONE-acetaminophen (Percocet) 10-325 mg tablet (Start on 07/16/2022) tiZANidine (ZANAFLEX) 4 MG tablet Failed back syndrome Relevant Medications tiZANidine (ZANAFLEX) 4 MG tablet Lumbar spondylosis Relevant Medications oxyCODONE-acetaminophen (Percocet) 10-325 mg tablet (Start on 07/16/2022) tiZANidine (ZANAFLEX) 4 MG tablet Osteoarthritis of knee Relevant Medications oxyCODONE-acetaminophen (Percocet) 10-325 mg tablet (Start on 07/16/2022) tiZANidine (ZANAFLEX) 4 MG tablet PLAN: 1. Patient is stable functional and meeting the goals of chronic opiate therapy without adverse side effects, misuse, or safety concerns. PDMP was reviewed without redflags or other concerns. 2. I counseled her on the importance of maintaining her activity and low-impact exercise such as walking on a daily basis to promote good health and improve chronic pain management. 3. She did very well with recent Cervical WAQAR 4. PAtient notes that she has increasing right knee pain. She has had prior RIGHT TKA. She notes she also has had prior RIGHT genicular RFA for her knee pain which was very effective 3yrs ago. She requests repeat RFA. I will schedule her for repeat genicular nerve RFA for the right knee 5. I will continue her percocet to 10/325 qid and f/u in 4 weeks The patient indicates understanding of these issues and agrees with the plan. I reviewed the patient's medical information and medical history. I have reviewed the past medical, family, and social history sections including the medications and allergies listed in the above medical record. Patient was counseled that in my practice I do not prescribe chronic opiate therapy in the presence of ongoing illegal substance use. Patient was also counseled that drug screen testing is medically necessary from time to time to help stratify risks associated with chronic opiate therapy by assessing compliance with prescribed medications as well as to identify the presence of illegal substances. Consent for drug screen testing is required for continuation of chronic opiate therapy. Electronically signed by: Isaías Cardenas MD, 06/29/2022 9:26 AM [facility] CHIEF COMPLAINT No chief complaint on file. SUBJECTIVE Ibis Tay is a 67 y.o. female who presents for follow-up of No chief complaint on file. with diagnosis of: 1. Problem List Items Addressed This Visit Cervical radiculopathy Relevant Medications oxyCODONE-acetaminophen (Percocet) 10-325 mg tablet (Start on 07/16/2022) tiZANidine (ZANAFLEX) 4 MG tablet Failed back syndrome Relevant Medications tiZANidine (ZANAFLEX) 4 MG tablet Lumbar spondylosis Relevant Medications oxyCODONE-acetaminophen (Percocet) 10-325 mg tablet (Start on 07/16/2022) tiZANidine (ZANAFLEX) 4 MG tablet Osteoarthritis of knee Relevant Medications oxyCODONE-acetaminophen (Percocet) 10-325 mg tablet (Start on 07/16/2022) tiZANidine (ZANAFLEX) 4 MG tablet Patient underwent LESI on 6-21She notes 50% improvement but continues with low back and joint pain. She notes that she has prior cervical WAQAR with >50% relief lasting 8-10mos. She feels the pain has recurred and would like to proceed with repeat cervical WAQAR She has tried OTC NSAIDs, daily home exercises/stretching she learned through PT without improvement Since patient's last encounter patient reports persistent chronic pain requiring ongoing treatment. Describes the pain as Sharp and Stabbing Patient rates their pain score 7/10 on average and is tolerable. Patient feels that the medication regimen does help maintain the function, mobility, activity tolerance and pain levels at a tolerable level. Patient states that medications changes or injections are not necessary today Patient states that the pain symptoms are stable. Patient denies new or changing pain complaints. Patient notes that the pain is worse with general activity and improved with rest. Patient 's current pain medication regimen has been reviewed with the patient and they note that the medication regimen is effective and reports that they are taking the medication regimen as prescribed. Patient denies running out of medication early or having an excess supply of medications. Other concerns: no new concerns at this time Patient's current pain medications has been reviewed and includes: DRUG FREQ Percocet qid qid Patient's most recent interventional procedures: PROCEDURE DATE % Relief & Duration Interlaminar Lumbar Epidural Steroid Injection L3 - L4 12/19/20 ROS Constitutional: denies dizziness, sedation, or somnolence Psychological: denies altered mentation or euphoria GI: denies significant constipation or diarrhea Musc: denies acute change in numbness, weakness, or tingling of extemities MEDICATIONS Current Outpatient Medications Medication Sig Dispense Refill - ALPRAZolam (Xanax) 0.5 MG tablet Take 1 tablet once to twice daily as needed 45 tablet 0 - calcium-vitamin D 500 mg(1,250mg) -200 unit per tablet Take 1 tablet by mouth 2 (two) times a day with meals. 180 tablet 2 - cetirizine (ZyrTEC) 10 MG tablet Take 1 tablet (10 mg total) by mouth once daily. 90 tablet 1 - cholecalciferol (VITAMIN D3) 125 mcg (5,000 unit) capsule Take 1 capsule (5,000 Units total) by mouth once daily. 100 capsule 3 - diaper,brief,adult,disposable Misc 1 application by Miscellaneous route 2 (two) times a day. 96 each 5 - DULoxetine (CYMBALTA) 30 MG capsule Take 1 capsule (30 mg total) by mouth daily every night. 60 capsule 1 - fluticasone propionate (Flovent Diskus) 250 mcg/actuation Disk with Device Inhale 1 puff into the lungs 2 (two) times a day. 60 each 3 - food supplemt, lactose-reduced (Ensure) Liquid Drink 2 bottles per day. Patient requests strawberry. 84802 mL 3 - hydroCHLOROthiazide (HYDRODIURIL) 25 MG tablet TAKE 1/2 TABLET BY MOUTH DAILY 15 tablet 1 - ibandronate (Boniva) 150 mg tablet Take 1 tablet (150 mg total) by mouth every 30 (thirty) days. Take sitting upright once mobnthly on empty stomach with glass of water , dont lay down or eat for full hour 3 tablet 4 - ipratropium-albuteroL (DUO-NEB) 0.5-2.5 mg/3 mL nebulizer NEBULIZE 1 VIAL (3 ML) BY MOUTH FOUR TIMES A DAY 360 mL 1 - lisinopriL (PRINIVIL,ZESTRIL) 5 MG tablet TAKE ONE TABLET BY MOUTH DAILY 30 tablet 1 - [place] [facility] [place] for use for breathing problems for duo-nebs treatments 1 each 0 - miscellaneous medical [place] [facility] [place], tubing and filter for nebulizer machine to be changed every 3 months. 1 each 3 - miscellaneous medical [place] [facility] [place] incontinence pads, 2 per day 100 each 6 - naloxone 2 mg/actuation [place], Non-Aerosol 2 mg by Nasal route as needed. 1-2 daily PRN. Proceed to ER for evaluation immediately following use. 4 each 1 - omeprazole (PriLOSEC) 40 MG capsule Take 1 capsule (40 mg total) by mouth once daily. 30 capsule 7 - ondansetron (Zofran ODT) [address] 1-2 tablets (4-8 mg total) under the tongue every 8 (eight) hours as needed for nausea / vomiting. 30 tablet 5 - oxyCODONE-acetaminophen (Percocet) 10-325 mg tablet Take 1 tablet by mouth every 6 (six) hours as needed for pain. To Last 30days. No early refills Max Daily Amount: 4 tablets 120 tablet 0 - [START ON 07/16/2022] oxyCODONE-acetaminophen (Percocet) 10-325 mg tablet Take 1 tablet by mouth every 6 (six) hours as needed for pain. To Last 30days. No early refills Max Daily Amount: 4 tablets 120 tablet 0 - potassium chloride (KLOR-CON) 10 MEQ CR tablet TAKE TWO TABLETS BY MOUTH TWICE A DAY 120 tablet 1 - prazosin (MINIPRESS) 2 MG capsule TAKE THREE CAPSULES BY MOUTH EVERY EVENING 270 capsule 1 - ProAir HFA 90 mcg/actuation inhaler INHALE TWO PUFFS BY MOUTH FOUR TIMES A DAY 8.5 g 11 - tiZANidine (ZANAFLEX) 4 MG tablet Take 1 tablet (4 mg total) by mouth 2 (two) times a day. 60 tablet 3 - tiZANidine (ZANAFLEX) 4 MG tablet Take 1 tablet (4 mg total) by mouth 2 (two) times a day for 30 days. 60 tablet 5 - traZODone (DESYREL) 50 MG tablet Take 0.5-1 tablets (25-50 mg total) by mouth once nightly as needed for sleep. 60 tablet 1 - umeclidinium-vilanteroL (Anoro Ellipta) 62.5-25 mcg/actuation Disk with Device Inhale 1 puff into the lungs once daily. 1 each 6 Current Facility-Administered Medications Medication Dose Route Frequency Provider Last Rate Last Admin - pneumococcal 20-valent vaccine (PREVNAR 20) syringe 0.5 mL IntraMuscular Once Mike Ann Jr., MD ALLERGIES Allergies Allergen Reactions - Penicillins Anaphylaxis - Gabapentin Other (See Comments) severe fatigue - Sulfa (Sulfonamide Antibiotics) Other (See Comments) Blisters inside and outside of mouth. - Wellbutrin [Bupropion Hcl] Other (See Comments) Body numbness and tingling - Diazepam Nausea And Vomiting - Varenicline PHYSICAL EXAM Vital Signs: There were no vitals taken for this visit. Constitutional: Well nourished, well groomed, NAD. CARDIAC: Regular Rate LUNGS: Breathing nonlabored, no wheezing Neurologic: Alert & oriented x 3, normal gait, no focal deficits noted. Psychiatric: Affect normal, judgment normal, mood normal. Other Affected BA/OS: Chronic Opiate Therapy Risk Mitigation: Risk Assessment Evaluation Assessment Morphine Equivalents 60 Date of Last UDS SOAPP-R Score Behavior Risks none Physical Risks none H/o Illegal Substance Abuse denies H/o Alcohol abuse denies OPIATE RISK ASSESSMENT: LOW (Routine medication monitoring, Annual UDS) Assessment is based treating physicians overall evaluation of multiple factors including MME load, age, comorbidity, medication profile, and social risk factors. The risks/benefits of chronic opiate therapy was discussed with patient including failure of therapy, psychological addiction, physiological dependence, and risk withdrawal syndrome. Warning symptoms of potential opiate overuse/overdose were discussed including sedation, somnolence, and altered mentation were reviewed and I counseled patient these symptoms can occur even when patient have been on a stable dose and also can happen despite following physicians instructions. Alternative therapies were discussed including: non-opiate medications, interventional pain procedures, and Cognitive Behavioral Therapy. After discussing these alternatives with the patient, the patient has opted to decline these alternatives at this time. Patient has tried and failed more conservative measures and were either ineffective or intolerant. In my medical opinion non-opiate therapy is not appropriate to address the patient's medical condition at this time and will continue chronic opiate therapy after having addressed efficacy, adverse side effects, and safety of therapy with the patient. The patient indicates understanding of these issues and agrees with the plan. LIFESTYLE COUNSELING: Time was spent discussing the importance of a home exercise program to promote strength, activity endurance and pain tolerance. Patient was also counseled on avoidance of tobacco products for general health as well as improved chronic pain control. ASSESSMENT AND PLAN Problem List Items Addressed This Visit Cervical radiculopathy Relevant Medications oxyCODONE-acetaminophen (Percocet) 10-325 mg tablet (Start on 07/16/2022) tiZANidine (ZANAFLEX) 4 MG tablet Failed back syndrome Relevant Medications tiZANidine (ZANAFLEX) 4 MG tablet Lumbar spondylosis Relevant Medications oxyCODONE-acetaminophen (Percocet) 10-325 mg tablet (Start on 07/16/2022) tiZANidine (ZANAFLEX) 4 MG tablet Osteoarthritis of knee Relevant Medications oxyCODONE-acetaminophen (Percocet) 10-325 mg tablet (Start on 07/16/2022) tiZANidine (ZANAFLEX) 4 MG tablet PLAN: 6. Patient is stable functional and meeting the goals of chronic opiate therapy without adverse side effects, misuse, or safety concerns. PDMP was reviewed without redflags or other concerns. 7. I counseled her on the importance of maintaining her activity and low-impact exercise such as walking on a daily basis to promote good health and improve chronic pain management. 8. Patient underwent RFA of the RIGHT knee and notes significant improvement 9. She notes that she will be undergoing hernia surgery early July 27. I will continue her percocet to 10/325 qid and f/u in 4 weeks The patient indicates understanding of these issues and agrees with the plan. I reviewed the patient's medical information and medical history. I have reviewed the past medical, family, and social history sections including the medications and allergies listed in the above medical record. Patient was counseled that in my practice I do not prescribe chronic opiate therapy in the presence of ongoing illegal substance use. Patient was also counseled that drug screen testing is medically necessary from time to time to help stratify risks associated with chronic opiate therapy by assessing compliance with prescribed medications as well as to identify the presence of illegal substances. Consent for drug screen testing is required for continuation of chronic opiate therapy. Electronically signed by: Isaías Cardenas MD, 06/29/2022 9:26 AM [facility] 2022-06-24 14:30:00 OFFICE VISIT CHIEF COMPLAINT Chief Complaint Patient presents with - Abdominal hernia without obstruction and without gangrene, r HPI Ibis Joes Angel Tay is a 67 y.o. female coming in for right femoral hernia. She has had it for a few years and can be painful and unsightly. She wishes to have it repaired. She is a current smoker that is uninterested in quitting. ROS Constitutional:negative for chills and fevers Eyes:negative for icterus Head, Ears, Nose, Throat and Facenegative for : earaches Respiratory:negative for cough Cardiovascular: negative for chest pain Gastrointestinal:negative for diarrhea, nausea and vomiting Musculoskeletal: denies joint swelling or pain Neurological:negative for seizures Integument/Breast:negative for rash Allergic/Immunologic:negative for urticaria Psychiatric:negative for anxiety MEDICATIONS Current Outpatient Medications Medication Sig Dispense Refill - ALPRAZolam (Xanax) 0.5 MG tablet Take 1 tablet once to twice daily as needed 45 tablet 0 - calcium-vitamin D 500 mg(1,250mg) -200 unit per tablet Take 1 tablet by mouth 2 (two) times a day with meals. 180 tablet 2 - cetirizine (ZyrTEC) 10 MG tablet Take 1 tablet (10 mg total) by mouth once daily. 90 tablet 1 - cholecalciferol (VITAMIN D3) 125 mcg (5,000 unit) capsule Take 1 capsule (5,000 Units total) by mouth once daily. 100 capsule 3 - diaper,brief,adult,disposable Misc 1 application by Miscellaneous route 2 (two) times a day. 96 each 5 - DULoxetine (CYMBALTA) 30 MG capsule Take 1 capsule (30 mg total) by mouth daily every night. 60 capsule 1 - fluticasone propionate (Flovent Diskus) 250 mcg/actuation Disk with Device Inhale 1 puff into the lungs 2 (two) times a day. 60 each 3 - food supplemt, lactose-reduced (Ensure) Liquid Drink 2 bottles per day. Patient requests strawberry. [id number] mL 3 - hydroCHLOROthiazide (HYDRODIURIL) 25 MG tablet TAKE 1/2 TABLET BY MOUTH DAILY 15 tablet 1 - ibandronate (Boniva) 150 mg tablet Take 1 tablet (150 mg total) by mouth every 30 (thirty) days. Take sitting upright once mobnthly on empty stomach with glass of water , dont lay down or eat for full hour 3 tablet 4 - ipratropium-albuteroL (DUO-NEB) 0.5-2.5 mg/3 mL nebulizer NEBULIZE 1 VIAL (3 ML) BY MOUTH FOUR TIMES A DAY 360 mL 1 - lisinopriL (PRINIVIL,ZESTRIL) 5 MG tablet TAKE ONE TABLET BY MOUTH DAILY 30 tablet 1 - [place] [facility] [place] for use for breathing problems for duo-nebs treatments 1 each 0 - miscellaneous medical [place] [facility] [place] mask, tubing and filter for nebulizer machine to be changed every 3 months. 1 each 3 - miscellaneous medical supply [facility] [place] incontinence pads, 2 per day 100 each 6 - naloxone 2 mg/actuation [place], Non-Aerosol 2 mg by Nasal route as needed. 1-2 daily PRN. Proceed to ER for evaluation immediately following use. 4 each 1 - omeprazole (PriLOSEC) 40 MG capsule Take 1 capsule (40 mg total) by mouth once daily. 30 capsule 7 - ondansetron (Zofran ODT) [address] 1-2 tablets (4-8 mg total) under the tongue every 8 (eight) hours as needed for nausea / vomiting. 30 tablet 5 - oxyCODONE-acetaminophen (Percocet) 10-325 mg tablet Take 1 tablet by mouth every 6 (six) hours as needed for pain. To Last 30days. No early refills Max Daily Amount: 4 tablets 120 tablet 0 - oxyCODONE-acetaminophen (Percocet) 10-325 mg tablet Take 1 tablet by mouth every 6 (six) hours as needed for pain. To Last 30days. No early refills Max Daily Amount: 4 tablets 120 tablet 0 - potassium chloride (KLOR-CON) 10 MEQ CR tablet TAKE TWO TABLETS BY MOUTH TWICE A DAY 120 tablet 1 - prazosin (MINIPRESS) 2 MG capsule TAKE THREE CAPSULES BY MOUTH EVERY EVENING 270 capsule 1 - ProAir HFA 90 mcg/actuation inhaler INHALE TWO PUFFS BY MOUTH FOUR TIMES A DAY 8.5 g 11 - tiZANidine (ZANAFLEX) 4 MG tablet Take 1 tablet (4 mg total) by mouth 2 (two) times a day. 60 tablet 3 - traZODone (DESYREL) 50 MG tablet Take 0.5-1 tablets (25-50 mg total) by mouth once nightly as needed for sleep. 60 tablet 1 - umeclidinium-vilanteroL (Anoro Ellipta) 62.5-25 mcg/actuation Disk with Device Inhale 1 puff into the lungs once daily. 1 each 6 Current Facility-Administered Medications Medication Dose Route Frequency Provider Last Rate Last Admin - pneumococcal 20-valent vaccine (PREVNAR 20) syringe 0.5 mL IntraMuscular Once Mike Ann Jr., MD Current Outpatient Medications: - ALPRAZolam (Xanax) 0.5 MG tablet, Take 1 tablet once to twice daily as needed, Disp: 45 tablet, Rfl: 0 - calcium-vitamin D 500 mg(1,250mg) -200 unit per tablet, Take 1 tablet by mouth 2 (two) times a day with meals., Disp: 180 tablet, Rfl: 2 - cetirizine (ZyrTEC) 10 MG tablet, Take 1 tablet (10 mg total) by mouth once daily., Disp: 90 tablet, Rfl: 1 - cholecalciferol (VITAMIN D3) 125 mcg (5,000 unit) capsule, Take 1 capsule (5,000 Units total) by mouth once daily., Disp: 100 capsule, Rfl: 3 - diaper,brief,adult,disposable Misc, 1 application by Miscellaneous route 2 (two) times a day., Disp: 96 each, Rfl: 5 - DULoxetine (CYMBALTA) 30 MG capsule, Take 1 capsule (30 mg total) by mouth daily every night., Disp: 60 capsule, Rfl: 1 - fluticasone propionate (Flovent Diskus) 250 mcg/actuation Disk with Device, Inhale 1 puff into the lungs 2 (two) times a day., Disp: 60 each, Rfl: 3 - food supplemt, lactose-reduced (Ensure) Liquid, Drink 2 bottles per day. Patient requests strawberry., Disp: 21775 mL, Rfl: 3 - hydroCHLOROthiazide (HYDRODIURIL) 25 MG tablet, TAKE 1/2 TABLET BY MOUTH DAILY, Disp: 15 tablet, Rfl: 1 - ibandronate (Boniva) 150 mg tablet, Take 1 tablet (150 mg total) by mouth every 30 (thirty) days. Take sitting upright once mobnthly on empty stomach with glass of water , dont lay down or eat for full hour, Disp: 3 tablet, Rfl: 4 - ipratropium-albuteroL (DUO-NEB) 0.5-2.5 mg/3 mL nebulizer, NEBULIZE 1 VIAL (3 ML) BY MOUTH FOUR TIMES A DAY, Disp: 360 mL, Rfl: 1 - lisinopriL (PRINIVIL,ZESTRIL) 5 MG tablet, TAKE ONE TABLET BY MOUTH DAILY, Disp: 30 tablet, Rfl: 1 - [place] [facility] [place]bulizer machine for use for breathing problems for duo-nebs treatments, Disp: 1 each, Rfl: 0 - miscellaneous medical supply [facility] [place] Needs mask, tubing and filter for nebulizer machine to be changed every 3 months., Disp: 1 each, Rfl: 3 - miscellaneous medical supply [facility] [place] Requests incontinence pads, 2 per day, Disp: 100 each, Rfl: 6 - naloxone 2 mg/actuation [place], Non-Aerosol, 2 mg by Nasal route as needed. 1-2 daily PRN. Proceed to ER for evaluation immediately following use., Disp: 4 each, Rfl: 1 - omeprazole (PriLOSEC) 40 MG capsule, Take 1 capsule (40 mg total) by mouth once daily., Disp: 30 capsule, Rfl: 7 - ondansetron (Zofran ODT) 4 MG disintegrating tablet, Place 1-2 tablets (4-8 mg total) under the tongue every 8 (eight) hours as needed for nausea / vomiting., Disp: 30 tablet, Rfl: 5 - oxyCODONE-acetaminophen (Percocet) 10-325 mg tablet, Take 1 tablet by mouth every 6 (six) hours as needed for pain. To Last 30days. No early refills Max Daily Amount: 4 tablets, Disp: 120 tablet, Rfl: 0 - oxyCODONE-acetaminophen (Percocet) 10-325 mg tablet, Take 1 tablet by mouth every 6 (six) hours as needed for pain. To Last 30days. No early refills Max Daily Amount: 4 tablets, Disp: 120 tablet, Rfl: 0 - potassium chloride (KLOR-CON) 10 MEQ CR tablet, TAKE TWO TABLETS BY MOUTH TWICE A DAY, Disp: 120 tablet, Rfl: 1 - prazosin (MINIPRESS) 2 MG capsule, TAKE THREE CAPSULES BY MOUTH EVERY EVENING, Disp: 270 capsule, Rfl: 1 - ProAir HFA 90 mcg/actuation inhaler, INHALE TWO PUFFS BY MOUTH FOUR TIMES A DAY, Disp: 8.5 g, Rfl: 11 - tiZANidine (ZANAFLEX) 4 MG tablet, Take 1 tablet (4 mg total) by mouth 2 (two) times a day., Disp: 60 tablet, Rfl: 3 - traZODone (DESYREL) 50 MG tablet, Take 0.5-1 tablets (25-50 mg total) by mouth once nightly as needed for sleep., Disp: 60 tablet, Rfl: 1 - umeclidinium-vilanteroL (Anoro Ellipta) 62.5-25 mcg/actuation Disk with Device, Inhale 1 puff into the lungs once daily., Disp: 1 each, Rfl: 6 Current Facility-Administered Medications: - pneumococcal 20-valent vaccine (PREVNAR 20) syringe, 0.5 mL, IntraMuscular, Once, Mike Ann Jr., MD Allergies Allergen Reactions - Penicillins Anaphylaxis - Gabapentin Other (See Comments) severe fatigue - Sulfa (Sulfonamide Antibiotics) Other (See Comments) Blisters inside and outside of mouth. - Wellbutrin [Bupropion Hcl] Other (See Comments) Body numbness and tingling - Diazepam Nausea And Vomiting - Varenicline ALLERGIES Allergies Allergen Reactions - Penicillins Anaphylaxis - Gabapentin Other (See Comments) severe fatigue - Sulfa (Sulfonamide Antibiotics) Other (See Comments) Blisters inside and outside of mouth. - Wellbutrin [Bupropion Hcl] Other (See Comments) Body numbness and tingling - Diazepam Nausea And Vomiting - Varenicline FH/PMH Family History Problem Relation Age of Onset - Other Other Hx: Yes Dx: Diabetes Fam Mem: Family h/o - Drug abuse Other - Other Other Hx: Yes Dx: Hypertension Fam Mem: Mother - Drug abuse Other - Hypertension Mother - Heart disease Mother - Diabetes Mother - No Known Problem Father - Other Sister - Cancer Sister - Other Other Hx: Yes Dx: Heart disease Fam Mem: Mother - Diabetes Maternal Grandmother Past Medical History: Diagnosis Date - Anxiety Takes Xanax - Arthritis - Breast mass 2013 rt axilla - Bronchitis - Bursitis Left hip - Cancer ([facility]) left lung cancer, scheduled for left upper lobectomy at [facility] with Dr. Moore - Cervical radiculopathy sees Dr. Cardenas, gets cervical pain injections every 3 months, last done in - COPD (chronic obstructive pulmonary disease) ([facility]) - DDD (degenerative disc disease) - Depression dr. 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 pylori infection Hx of H pylori infection several months ago treated with medication, no current issues. - H/O pyloric stenosis - Hiatal hernia - HTN (hypertension) - Hypercholesteremia - Hyperlipidemia No current medications or issues. - OA (osteoarthritis) of knee - Oxygen desaturation at night 3.5 liter - Palpitations with anxiety - Peripheral vascular disease ([facility]) 10/2020 abdominal pain-stricture liliac artery - Pneumonia 1994 resolved. - PONV (postoperative nausea and vomiting) - PTSD (post-traumatic stress disorder) son was murdered 8 years ago, followed by Dr. Milly Freire - Spinal stenosis cervical - Urinary incontinence - Wears dentures full set - Wears glasses Social History Socioeconomic History - Marital status: Spouse name: Not on file - Number of children: Not on file - Years of education: 14 - Highest education level: Not on file Occupational History - Not on file Tobacco Use - Smoking status: Current Every Day Smoker Packs/day: 2.00 Years: 44.00 Pack years: 88.00 Types: Cigarettes, Vaporizer - Smokeless tobacco: Never Used - Tobacco comment: does not completly smoke a cigarette Vaping Use - Vaping Use: Never used Substance and Sexual Activity - Alcohol use: Yes - Drug use: No - Sexual activity: Not Currently Other Topics Concern - Not on file Social History Narrative - Not on file Social Determinants of Health Financial Resource Strain: Not on file Food Insecurity: Not on file Transportation Needs: Not on file Physical Activity: Not on file Stress: Not on file Social Connections: Not on file Intimate Partner Violence: Not on file Past Surgical History: Procedure Laterality Date - ESOPHAGEAL DILATION 2012 approx. done with upper endoscopy - KNEE ARTHROPLASTY Right 2010 - LUMBAR FUSION 1995 - LUNG LOBECTOMY Left 10/11/2017 Upper - CO INTRODUCTION CATHETER AORTA Right 11/03/2020 Procedure: ABDOMINAL AORTOGRAM; Surgeon: Imelda Swan MD; Location: [facility]; Service: Vascular - CO TOTAL KNEE ARTHROPLASTY Right 05/28/2014 Procedure: REPLACEMENT TOTAL JOINT KNEE RIGHT / BETO ; Surgeon: Isaak Moncada MD; Location: [facility] OR; Service: Orthopedics - SPINE SURGERY lumbar fusion - TENDON RELEASE Right arm - TOTAL HIP ARTHROPLASTY Left 09/26/14 hip hem-iarthoplasty - TOTAL KNEE ARTHROPLASTY Left 11/23 - TUBAL LIGATION Bilateral - UPPER GASTROINTESTINAL ENDOSCOPY 2012 approx. diagnosed with H. Pylori and esophagus dilated. - UPPER GASTROINTESTINAL ENDOSCOPY PHYSICAL EXAM Vital Signs: BP 117/72 (BP Location: Left arm, Patient Position: Sitting) Pulse 90 Ht 156.2 cm (5' 1.5) Wt 53.6 kg (118 lb 3.2 oz) BMI 21.97 kg/m Exam: Eyes No scleral icterus ENT No oral ulcers and No oral thrush Respiratory No crackles or wheezes Cardiovascular Normal S1 & S2, Regular rhythm and No murmurs, rubs, or gallops Gastrointestinal soft, non-tender Musculoskeletal : No gross deformity or swelling Skin No rash Neurologic speech-clear,no facial asymmetry Psychiatric Alert and lucid and No apparent anxiety Assessment ASSESSMENT The encounter diagnosis was Non-recurrent unilateral femoral hernia without obstruction or gangrene. 1. Non-recurrent unilateral femoral hernia without obstruction or gangrene No orders of the defined types were placed in this encounter. PLAN - schedule robotic right femoral/inguinal hernia repair with mesh (@[facility] - will need PCP clearance Follow-Up: Patient was instructed to follow-up for procedure Please call if any questions, concerns prior to appointment The patient indicates understanding of these issues and agrees with the plan. I reviewed the patient's medical information and medical history. I have reviewed the past medical, family, and social history sections including the medications and allergies listed in the above medical record. I have reviewed the notes, assessments, and/or procedures performed by , I with her/his documentation of Ibis Tay. Electronically signed by: Jurgen Johnson APRN, 06/24/2022 3:08 PM [address]ON [facility] 2022-06-01 08:20:00 [facility] CHIEF COMPLAINT No chief complaint on file. SUBJECTIVE Ibis Tay is a 67 y.o. female who presents for follow-up of No chief complaint on file. with diagnosis of: 1. Problem List Items Addressed This Visit Cervical radiculopathy Lumbar spondylosis Osteoarthritis of knee - Primary Patient underwent LESI on 12-19-20She notes 50% improvement but continues with low back and joint pain. She notes that she has prior cervical WAQAR with >50% relief lasting 8-10mos. She feels the pain has recurred and would like to proceed with repeat cervical WAQAR She has tried OTC NSAIDs, daily home exercises/stretching she learned through PT without improvement Since patient's last encounter patient reports persistent chronic pain requiring ongoing treatment. Describes the pain as Sharp and Stabbing Patient rates their pain score 7/10 on average and is tolerable. Patient feels that the medication regimen does help maintain the function, mobility, activity tolerance and pain levels at a tolerable level. Patient states that medications changes or injections are not necessary today Patient states that the pain symptoms are stable. Patient denies new or changing pain complaints. Patient notes that the pain is worse with general activity and improved with rest. Patient 's current pain medication regimen has been reviewed with the patient and they note that the medication regimen is effective and reports that they are taking the medication regimen as prescribed. Patient denies running out of medication early or having an excess supply of medications. Other concerns: no new concerns at this time Patient's current pain medications has been reviewed and includes: DRUG FREQ Percocet qid qid Patient's most recent interventional procedures: PROCEDURE DATE % Relief & Duration Interlaminar Lumbar Epidural Steroid Injection L3 - L4 12/19/20 ROS Constitutional: denies dizziness, sedation, or somnolence Psychological: denies altered mentation or euphoria GI: denies significant constipation or diarrhea Musc: denies acute change in numbness, weakness, or tingling of extemities MEDICATIONS Current Outpatient Medications Medication Sig Dispense Refill - [START ON 06/11/2022] ALPRAZolam (Xanax) 0.5 MG tablet Take 1 tablet once to twice daily as needed 45 tablet 0 - calcium-vitamin D 500 mg(1,250mg) -200 unit per tablet Take 1 tablet by mouth 2 (two) times a day with meals. 180 tablet 2 - cetirizine (ZyrTEC) 10 MG tablet Take 1 tablet (10 mg total) by mouth once daily. 90 tablet 1 - cholecalciferol (VITAMIN D3) 125 mcg (5,000 unit) capsule Take 1 capsule (5,000 Units total) by mouth once daily. 100 capsule 3 - diaper,brief,adult,disposable Misc 1 application by Miscellaneous route 2 (two) times a day. 96 each 5 - DULoxetine (CYMBALTA) 30 MG capsule Take 1 capsule (30 mg total) by mouth daily every night. 60 capsule 1 - fluticasone propionate (Flovent Diskus) 250 mcg/actuation Disk with Device Inhale 1 puff into the lungs 2 (two) times a day. 60 each 3 - food supplemt, lactose-reduced (Ensure) Liquid Drink 2 bottles per day. Patient requests strawberry. 47279 mL 3 - hydroCHLOROthiazide (HYDRODIURIL) 25 MG tablet TAKE 1/2 TABLET BY MOUTH DAILY 15 tablet 1 - ibandronate (Boniva) 150 mg tablet Take 1 tablet (150 mg total) by mouth every 30 (thirty) days. Take sitting upright once mobnthly on empty stomach with glass of water , dont lay down or eat for full hour 3 tablet 4 - ipratropium-albuteroL (DUO-NEB) 0.5-2.5 mg/3 mL nebulizer NEBULIZE 1 VIAL (3 ML) BY MOUTH FOUR TIMES A DAY 360 mL 1 - lisinopriL (PRINIVIL,ZESTRIL) 5 MG tablet TAKE ONE TABLET BY MOUTH DAILY 30 tablet 1 - [place] [facility] [place] for use for breathing problems for duo-nebs treatments 1 each 0 - miscellaneous medical [place] [facility] [place] mask, tubing and filter for nebulizer machine to be changed every 3 months. 1 each 3 - miscellaneous medical [place] [facility] [place] incontinence pads, 2 per day 100 each 6 - naloxone 2 mg/actuation [place], Non-Aerosol 2 mg by Nasal route as needed. 1-2 daily PRN. Proceed to ER for evaluation immediately following use. 4 each 1 - omeprazole (PriLOSEC) 40 MG capsule Take 1 capsule (40 mg total) by mouth once daily. 30 capsule 7 - ondansetron (Zofran ODT) [address] 1-2 tablets (4-8 mg total) under the tongue every 8 (eight) hours as needed for nausea / vomiting. 30 tablet 5 - oxyCODONE-acetaminophen (Percocet) 10-325 mg tablet Take 1 tablet by mouth every 6 (six) hours as needed for pain. To Last 30days. No early refills Max Daily Amount: 4 tablets 120 tablet 0 - potassium chloride (KLOR-CON) 10 MEQ CR tablet TAKE TWO TABLETS BY MOUTH TWICE A DAY 120 tablet 1 - prazosin (MINIPRESS) 2 MG capsule TAKE THREE CAPSULES BY MOUTH EVERY EVENING 270 capsule 1 - ProAir HFA 90 mcg/actuation inhaler INHALE TWO PUFFS BY MOUTH FOUR TIMES A DAY 8.5 g 11 - tiZANidine (ZANAFLEX) 4 MG tablet Take 1 tablet (4 mg total) by mouth 2 (two) times a day. 60 tablet 3 - traZODone (DESYREL) 50 MG tablet Take 0.5-1 tablets (25-50 mg total) by mouth once nightly as needed for sleep. 60 tablet 1 - umeclidinium-vilanteroL (Anoro Ellipta) 62.5-25 mcg/actuation Disk with Device Inhale 1 puff into the lungs once daily. 1 each 6 Current Facility-Administered Medications Medication Dose Route Frequency Provider Last Rate Last Admin - pneumococcal 20-valent vaccine (PREVNAR 20) syringe 0.5 mL IntraMuscular Once Mike Ann Jr., MD ALLERGIES Allergies Allergen Reactions - Penicillins Anaphylaxis - Gabapentin Other (See Comments) severe fatigue - Sulfa (Sulfonamide Antibiotics) Other (See Comments) Blisters inside and outside of mouth. - Wellbutrin [Bupropion Hcl] Other (See Comments) Body numbness and tingling - Diazepam Nausea And Vomiting - Varenicline PHYSICAL EXAM Vital Signs: Wt 54 kg (119 lb) BMI 22.12 kg/m Constitutional: Well nourished, well groomed, NAD. CARDIAC: Regular Rate LUNGS: Breathing nonlabored, no wheezing Neurologic: Alert & oriented x 3, normal gait, no focal deficits noted. Psychiatric: Affect normal, judgment normal, mood normal. Other Affected BA/OS: Chronic Opiate Therapy Risk Mitigation: Risk Assessment Evaluation Assessment Morphine Equivalents 60 Date of Last UDS SOAPP-R Score Behavior Risks none Physical Risks none H/o Illegal Substance Abuse denies H/o Alcohol abuse denies OPIATE RISK ASSESSMENT: LOW (Routine medication monitoring, Annual UDS) Assessment is based treating physicians overall evaluation of multiple factors including MME load, age, comorbidity, medication profile, and social risk factors. The risks/benefits of chronic opiate therapy was discussed with patient including failure of therapy, psychological addiction, physiological dependence, and risk withdrawal syndrome. Warning symptoms of potential opiate overuse/overdose were discussed including sedation, somnolence, and altered mentation were reviewed and I counseled patient these symptoms can occur even when patient have been on a stable dose and also can happen despite following physicians instructions. Alternative therapies were discussed including: non-opiate medications, interventional pain procedures, and Cognitive Behavioral Therapy. After discussing these alternatives with the patient, the patient has opted to decline these alternatives at this time. Patient has tried and failed more conservative measures and were either ineffective or intolerant. In my medical opinion non-opiate therapy is not appropriate to address the patient's medical condition at this time and will continue chronic opiate therapy after having addressed efficacy, adverse side effects, and safety of therapy with the patient. The patient indicates understanding of these issues and agrees with the plan. LIFESTYLE COUNSELING: Time was spent discussing the importance of a home exercise program to promote strength, activity endurance and pain tolerance. Patient was also counseled on avoidance of tobacco products for general health as well as improved chronic pain control. ASSESSMENT AND PLAN Problem List Items Addressed This Visit Cervical radiculopathy Lumbar spondylosis Osteoarthritis of knee - Primary PLAN: 1. Patient is stable functional and meeting the goals of chronic opiate therapy without adverse side effects, misuse, or safety concerns. PDMP was reviewed without redflags or other concerns. 2. I counseled her on the importance of maintaining her activity and low-impact exercise such as walking on a daily basis to promote good health and improve chronic pain management. 3. She did very well with recent Cervical WAQAR 4. PAtient notes that she has increasing right knee pain. She has had prior RIGHT TKA. She notes she also has had prior RIGHT genicular RFA for her knee pain which was very effective 3yrs ago. She requests repeat RFA. I will schedule her for repeat genicular nerve RFA for the right knee 5. I will continue her percocet to 10/325 qid and f/u in 4 weeks The patient indicates understanding of these issues and agrees with the plan. I reviewed the patient's medical information and medical history. I have reviewed the past medical, family, and social history sections including the medications and allergies listed in the above medical record. Patient was counseled that in my practice I do not prescribe chronic opiate therapy in the presence of ongoing illegal substance use. Patient was also counseled that drug screen testing is medically necessary from time to time to help stratify risks associated with chronic opiate therapy by assessing compliance with prescribed medications as well as to identify the presence of illegal substances. Consent for drug screen testing is required for continuation of chronic opiate therapy. Electronically signed by: Isaías Cardenas MD, 06/01/2022 8:40 AM [facility] CHIEF COMPLAINT No chief complaint on file. SUBJECTIVE Ibis Tay is a 67 y.o. female who presents for follow-up of No chief complaint on file. with diagnosis of: 1. Problem List Items Addressed This Visit Cervical radiculopathy Lumbar spondylosis Osteoarthritis of knee - Primary Patient underwent LESI on 12-19-20She notes 50% improvement but continues with low back and joint pain. She notes that she has prior cervical WAQAR with >50% relief lasting 8-10mos. She feels the pain has recurred and would like to proceed with repeat cervical WAQAR She has tried OTC NSAIDs, daily home exercises/stretching she learned through PT without improvement Since patient's last encounter patient reports persistent chronic pain requiring ongoing treatment. Describes the pain as Sharp and Stabbing Patient rates their pain score 7/10 on average and is tolerable. Patient feels that the medication regimen does help maintain the function, mobility, activity tolerance and pain levels at a tolerable level. Patient states that medications changes or injections are not necessary today Patient states that the pain symptoms are stable. Patient denies new or changing pain complaints. Patient notes that the pain is worse with general activity and improved with rest. Patient 's current pain medication regimen has been reviewed with the patient and they note that the medication regimen is effective and reports that they are taking the medication regimen as prescribed. Patient denies running out of medication early or having an excess supply of medications. Other concerns: no new concerns at this time Patient's current pain medications has been reviewed and includes: DRUG FREQ Percocet qid qid Patient's most recent interventional procedures: PROCEDURE DATE % Relief & Duration Interlaminar Lumbar Epidural Steroid Injection L3 - L4 12/19/20 ROS Constitutional: denies dizziness, sedation, or somnolence Psychological: denies altered mentation or euphoria GI: denies significant constipation or diarrhea Musc: denies acute change in numbness, weakness, or tingling of extemities MEDICATIONS Current Outpatient Medications Medication Sig Dispense Refill - [START ON 06/11/2022] ALPRAZolam (Xanax) 0.5 MG tablet Take 1 tablet once to twice daily as needed 45 tablet 0 - calcium-vitamin D 500 mg(1,250mg) -200 unit per tablet Take 1 tablet by mouth 2 (two) times a day with meals. 180 tablet 2 - cetirizine (ZyrTEC) 10 MG tablet Take 1 tablet (10 mg total) by mouth once daily. 90 tablet 1 - cholecalciferol (VITAMIN D3) 125 mcg (5,000 unit) capsule Take 1 capsule (5,000 Units total) by mouth once daily. 100 capsule 3 - diaper,brief,adult,disposable Misc 1 application by Miscellaneous route 2 (two) times a day. 96 each 5 - DULoxetine (CYMBALTA) 30 MG capsule Take 1 capsule (30 mg total) by mouth daily every night. 60 capsule 1 - fluticasone propionate (Flovent Diskus) 250 mcg/actuation Disk with Device Inhale 1 puff into the lungs 2 (two) times a day. 60 each 3 - food supplemt, lactose-reduced (Ensure) Liquid Drink 2 bottles per day. Patient requests strawberry. 22662 mL 3 - hydroCHLOROthiazide (HYDRODIURIL) 25 MG tablet TAKE 1/2 TABLET BY MOUTH DAILY 15 tablet 1 - ibandronate (Boniva) 150 mg tablet Take 1 tablet (150 mg total) by mouth every 30 (thirty) days. Take sitting upright once mobnthly on empty stomach with glass of water , dont lay down or eat for full hour 3 tablet 4 - ipratropium-albuteroL (DUO-NEB) 0.5-2.5 mg/3 mL nebulizer NEBULIZE 1 VIAL (3 ML) BY MOUTH FOUR TIMES A DAY 360 mL 1 - lisinopriL (PRINIVIL,ZESTRIL) 5 MG tablet TAKE ONE TABLET BY MOUTH DAILY 30 tablet 1 - [place] [facility] [place] for use for breathing problems for duo-nebs treatments 1 each 0 - miscellaneous medical [place] [facility] [place] mask, tubing and filter for nebulizer machine to be changed every 3 months. 1 each 3 - misc[place] medical [place] [facility] [place] incontinence pads, 2 per day 100 each 6 - naloxone 2 mg/actuation [place], Non-Aerosol 2 mg by Nasal route as needed. 1-2 daily PRN. Proceed to ER for evaluation immediately following use. 4 each 1 - omeprazole (PriLOSEC) 40 MG capsule Take 1 capsule (40 mg total) by mouth once daily. 30 capsule 7 - ondansetron (Zofran ODT) [address] 1-2 tablets (4-8 mg total) under the tongue every 8 (eight) hours as needed for nausea / vomiting. 30 tablet 5 - oxyCODONE-acetaminophen (Percocet) 10-325 mg tablet Take 1 tablet by mouth every 6 (six) hours as needed for pain. To Last 30days. No early refills Max Daily Amount: 4 tablets 120 tablet 0 - potassium chloride (KLOR-CON) 10 MEQ CR tablet TAKE TWO TABLETS BY MOUTH TWICE A DAY 120 tablet 1 - prazosin (MINIPRESS) 2 MG capsule TAKE THREE CAPSULES BY MOUTH EVERY EVENING 270 capsule 1 - ProAir HFA 90 mcg/actuation inhaler INHALE TWO PUFFS BY MOUTH FOUR TIMES A DAY 8.5 g 11 - tiZANidine (ZANAFLEX) 4 MG tablet Take 1 tablet (4 mg total) by mouth 2 (two) times a day. 60 tablet 3 - traZODone (DESYREL) 50 MG tablet Take 0.5-1 tablets (25-50 mg total) by mouth once nightly as needed for sleep. 60 tablet 1 - umeclidinium-vilanteroL (Anoro Ellipta) 62.5-25 mcg/actuation Disk with Device Inhale 1 puff into the lungs once daily. 1 each 6 Current Facility-Administered Medications Medication Dose Route Frequency Provider Last Rate Last Admin - pneumococcal 20-valent vaccine (PREVNAR 20) syringe 0.5 mL IntraMuscular Once Mike Ann Jr., MD ALLERGIES Allergies Allergen Reactions - Penicillins Anaphylaxis - Gabapentin Other (See Comments) severe fatigue - Sulfa (Sulfonamide Antibiotics) Other (See Comments) Blisters inside and outside of mouth. - Wellbutrin [Bupropion Hcl] Other (See Comments) Body numbness and tingling - Diazepam Nausea And Vomiting - Varenicline PHYSICAL EXAM Vital Signs: Wt 54 kg (119 lb) BMI 22.12 kg/m Constitutional: Well nourished, well groomed, NAD. CARDIAC: Regular Rate LUNGS: Breathing nonlabored, no wheezing Neurologic: Alert & oriented x 3, normal gait, no focal deficits noted. Psychiatric: Affect normal, judgment normal, mood normal. Other Affected BA/OS: Chronic Opiate Therapy Risk Mitigation: Risk Assessment Evaluation Assessment Morphine Equivalents 60 Date of Last UDS SOAPP-R Score Behavior Risks none Physical Risks none H/o Illegal Substance Abuse denies H/o Alcohol abuse denies OPIATE RISK ASSESSMENT: LOW (Routine medication monitoring, Annual UDS) Assessment is based treating physicians overall evaluation of multiple factors including MME load, age, comorbidity, medication profile, and social risk factors. The risks/benefits of chronic opiate therapy was discussed with patient including failure of therapy, psychological addiction, physiological dependence, and risk withdrawal syndrome. Warning symptoms of potential opiate overuse/overdose were discussed including sedation, somnolence, and altered mentation were reviewed and I counseled patient these symptoms can occur even when patient have been on a stable dose and also can happen despite following physicians instructions. Alternative therapies were discussed including: non-opiate medications, interventional pain procedures, and Cognitive Behavioral Therapy. After discussing these alternatives with the patient, the patient has opted to decline these alternatives at this time. Patient has tried and failed more conservative measures and were either ineffective or intolerant. In my medical opinion non-opiate therapy is not appropriate to address the patient's medical condition at this time and will continue chronic opiate therapy after having addressed efficacy, adverse side effects, and safety of therapy with the patient. The patient indicates understanding of these issues and agrees with the plan. LIFESTYLE COUNSELING: Time was spent discussing the importance of a home exercise program to promote strength, activity endurance and pain tolerance. Patient was also counseled on avoidance of tobacco products for general health as well as improved chronic pain control. ASSESSMENT AND PLAN Problem List Items Addressed This Visit Cervical radiculopathy Lumbar spondylosis Osteoarthritis of knee - Primary PLAN: 6. Patient is stable functional and meeting the goals of chronic opiate therapy without adverse side effects, misuse, or safety concerns. PDMP was reviewed without redflags or other concerns. 7. I counseled her on the importance of maintaining her activity and low-impact exercise such as walking on a daily basis to promote good health and improve chronic pain management. 8. Patient underwent RFA of the RIGHT knee and notes significant improvement 9. I will continue her percocet to 10/325 qid and f/u in 4 weeks The patient indicates understanding of these issues and agrees with the plan. I reviewed the patient's medical information and medical history. I have reviewed the past medical, family, and social history sections including the medications and allergies listed in the above medical record. Patient was counseled that in my practice I do not prescribe chronic opiate therapy in the presence of ongoing illegal substance use. Patient was also counseled that drug screen testing is medically necessary from time to time to help stratify risks associated with chronic opiate therapy by assessing compliance with prescribed medications as well as to identify the presence of illegal substances. Consent for drug screen testing is required for continuation of chronic opiate therapy. Electronically signed by: Isaías Cardenas MD, 06/01/2022 8:40 AM [facility] 2022-05-24 10:00:00 PatientIbis s consent to Mike Ann Jr., MD's use of Augmedix at today's visit. [facility] 2022-05-24 10:00:00 Subjective: Patient ID: Ibis Tay is a 67 y.o. female. Chief Complaint Patient presents with - Mass Right side. - Letter Needing letter for pt to not living alone. Pt does have a family member name she needs on letter - Medication Refill HPI Ibis Tay is a 67 y.o. female, present today for a evaluation of mass on right side. Patient has lump on right lower side of abdomen since February 2022. Patient says that when she strain, stands, or she cough she got pain on her lump. Patient having difficulty getting out of shower and she fell couple of time. Patient has a history of peripheral vascular disease with leg diseases. Patient has shower chair at her home. Patient is shower chair and she says has difficulty getting in. Patient had 1 fall in last month. Patient needs helps to putting the cloth. The patient has been having incontinence. Patient did not want any physical therapy. Patient needing letter for not to living alone. The patient has a history of hypertension and takes lisinopril 5 mg; once a day and prazosin 2 mg; 3 times a day with benefit. The patient denies shortness of breath or chest pain. Patient is tolerated medication well. The patient denies any side-effect of the medication. BP Readings from Last 3 Encounters: 05/24/22 130/72 03/12/22 126/70 03/09/22 (!) 182/74 The patient has a history of vitamin D deficiency and takes cholecalciferol 5000 unit and takes once a day . The patient denies side-effect of the medication. Review of Systems General : No weight gain or loss, no loss of appetite, no fever, no chills, no fatigue, no night sweats Skin And lymphatics: No rashes, no skin discolorations, no easy bruising, no lymphadenopathy Head: No headaches, no dizziness, no masses, no seizures Eyes: No visual changes no eye pain Ears: No tinnitus, no vertigo, no hearing loss Nose: No nosebleeds, no discharge, no sinus disease Mouth and throat: Denies dental disease, no hoarseness, no throat pain Respiratory: No cough, no shortness of breath, no sputum production Cardiovascular: No chest pain, no orthopnea, no paroxysmal nocturnal dyspnea, or dyspnea on exertion, no claudication, no edema, no valvular disease Gastrointestinal: Positive for abdominal pain. Positive for lump on right lower side of abdomen. No dysphagia, no nausea, no vomiting, no hematemesis, no diarrhea, no constipation, no melena, no hematochezia Genitourinary: Positive for Urinary incontinence. No dysuria, no frequency, no hesitancy, no hematuria no discharge Endocrine: No polyuria, no polydipsia, no skin or hair changes, no heat intolerance Musculoskeletal: No joint pain or swelling, no arthritis, no myalgias Neuropsychiatric: No weakness no seizures, no memory changes, no depression Neurologic: No unilateral or bilateral numbness tingling or weakness, no difficulty with speech, no vision changes, no problems with balance, denies dizziness, denies headache Objective: BP 130/72 (BP Location: Right arm, Patient Position: Sitting) Pulse 99 Temp 36.6 C (97.8 F) (Temporal Artery (forehead)) Resp 20 Ht 156.2 cm (5' 1.5) Wt 54.3 kg (119 lb 9.6 oz) SpO2 96% BMI 22.24 kg/m Physical Exam Physical Exam Nursing note and vitals reviewed. Constitutional: . patient appears well-developed and well-nourished. No distress. Head: Normocephalic and atraumatic. Right Ear: External ear normal. no erythema bright tympanic membrane bony landmarks intact Left Ear: External ear normal. No erythema bright tympanic membrane bony landmarks intact Mouth/Throat: No oropharyngeal exudate. Eyes: Pupils are equal, round, and reactive to light. Right eye exhibits no discharge. Left eye exhibits no discharge. No scleral icterus. Neck: No JVD present. No tracheal deviation present. No thyromegaly present. Cardiovascular: Normal rate, regular rhythm, normal heart sounds and intact distal pulses. Exam reveals no gallop and no friction rub. No murmur heard. Pulmonary/Chest: Effort normal. No respiratory distress. patient has no wheezes. patient has no rales. Patient exhibits no tenderness. Abdominal: Patient on right lower side of abdomen has lump. She has weakness right above the inguinal ligament. Musculoskeletal: Patient has good upper extremity strength. She has 5/5 reflexes upper and lower and lower extremity. Neurological: patient is alert and oriented to person, place, and time. gait balance and strength intact upper and lower extremity, cranial nerves 2-12 intact Skin: Skin is warm. No rash noted. Patient is not diaphoretic. No erythema. No pallor. Assessment/Plan: Problem List Items Addressed This Visit Essential hypertension Vitamin D deficiency Other Visit Diagnoses Abdominal hernia without obstruction and without gangrene, recurrence not specified, unspecified hernia type - Primary Relevant Orders Ambulatory referral to General Surgery 1. Abdominal hernia without obstruction and without gangrene, recurrence not specified, unspecified hernia type Ambulatory referral to General Surgery was given. 2. Essential hypertension Continue current medication therapy. Goal blood pressure less than 140/90 . Follow low salt diet as well as Dash Diet suggestions, aerobic exercise 30 minutes 5x weekly, keep weight close to ideal. 3. Vitamin D deficiency Continue with the current medications. Goal vitamin D level greater than 30 ideally 50 Attestation: The patient indicates understanding of these issues and agrees with the plan. I reviewed the patient's medical information and medical history. I have reviewed the past medical, family, and social history sections including the medications and allergies listed in the above medical record. Signature: I, Rao Li, am scribing for, and in the presence of Mike Ann Jr., MD. . I have read and agree with the documentation that has been completed regarding this visit and attest, that it is an accurate record of both my words and actions during the visit. . MIKE ANN JR, [facility] 2022-05-14 08:15:00 Operative Note Ibis Tay Primary Care Physician: Mike Ann Jr, MD : 1955 Age: 67 y.o. Procedure Information Date of Procedure: May 14, 2022 Site of Service: [facility] Pre-operative Diagnosis: OSTEOARTHRITIS right KNEE Post-operative Diagnosis: SAME Procedure: right Genicular Nerve (SUPMED, SUPLAT, and INFMED branches) RADIOFREQUENCY ABLATION / (CPT 57529 ,RT) Surgeon: Isaías Cardenas MD Sales Representative Leather Goods(s): NONE Anesthesia:LOCAL Estimated Blood Loss: MINIMAL FINDINGS: NONE Complications: NONE DISCUSSION: After informed consent was obtained, patient was taken to procedure room and placed on radiolucent procedure table. Patient's right knee was prepped and draped in usual sterile manner. Attention was turned to the Superomedial branch of the right Genicular nerve Fluoroscopy was positioned at the level of the proximal knee joint and the c-arm was obliqued approximately 15 deg and the junction of the medial femoral condyle and the distal medial femoral shaft identified. Skin over this landmark was anesthetized with 1ml of 1%lidocaine. Under fluoroscopic guidance, a 3.5in 25g spinal needle was advanced to the junction and 3ml of 1% lidocaine was injected after negative aspiration. An 18g 10cm curved tip RFA needle was advanced to the junction of the medial femoral condyle and distal femoral shaft. In lateral view, the needle tip was advanced 2/3 distance of the femoral shaft. Attention was turned to the Superolateral branch of the right Genicular nerve Fluoroscopy was positioned at the level of the proximal knee joint and the c-arm was obliqued approximately 15 deg and the junction of the Lateral femoral condyle and the distal lateral femoral shaft identified. Skin over this landmark was anesthetized with 1ml of 1%lidocaine. Under fluoroscopic guidance, a 3.5in 25g spinal needle was advanced to the junction and 3ml of 1% lidocaine was injected after negative aspiration. An 18g 10cm curved tip RFA needle was advanced to the junction of the lateral femoral condyle and distal femoral shaft. In lateral view, the needle tip was advanced 2/3 distance of the femoral shaft. Attention was turned to the Inferomedial branch of the right Genicular nerve Fluoroscopy was positioned at the level of the proximal knee joint and the c-arm was obliqued approximately 15 deg and the junction of the medial tibial condyle and the distal tibial shaft identified. Skin over this landmark was anesthetized with 1ml of 1%lidocaine. Under fluoroscopic guidance, a 3.5in 25g spinal needle was advanced to the junction and 3ml of 1% lidocaine was injected after negative aspiration. An 18g 10cm curved tip RFA needle was advanced to the junction of the medial tibial condyle and distal tibial shaft. In lateral view, the needle tip was advanced 2/3 distance of the tibial shaft Once needles were suitable placed. Lesioning was conducted at 80degC for 60 sec. [place] were withdrawn 5mm with placement of the needle tip at the mid-shaft line and repeat lesioning was conducted at 80degC for another 60sec. A solution of 3ml 0.25% bupivacaine and 10mg dexamethasone was created and a 1ml aliqout was injected through each needle after negative aspiration. Patient tolerated procedure well without apparent complication. Signed: Isaías Cardenas MD May 14, 2022 [facility] 2022-05-03 15:40:00 [facility] CHIEF COMPLAINT No chief complaint on file. SUBJECTIVE Ibis Tay is a 67 y.o. female who presents for follow-up of No chief complaint on file. with diagnosis of: 1. Problem List Items Addressed This Visit Cervical radiculopathy - Primary Failed back syndrome Lumbar spondylosis Patient underwent LESI on 12-19-20She notes 50% improvement but continues with low back and joint pain. She notes that she has prior cervical WAQAR with >50% relief lasting 8-10mos. She feels the pain has recurred and would like to proceed with repeat cervical WAQAR She has tried OTC NSAIDs, daily home exercises/stretching she learned through PT without improvement Since patient's last encounter patient reports persistent chronic pain requiring ongoing treatment. Describes the pain as Sharp and Stabbing Patient rates their pain score 7/10 on average and is tolerable. Patient feels that the medication regimen does help maintain the function, mobility, activity tolerance and pain levels at a tolerable level. Patient states that medications changes or injections are not necessary today Patient states that the pain symptoms are stable. Patient denies new or changing pain complaints. Patient notes that the pain is worse with general activity and improved with rest. Patient 's current pain medication regimen has been reviewed with the patient and they note that the medication regimen is effective and reports that they are taking the medication regimen as prescribed. Patient denies running out of medication early or having an excess supply of medications. Other concerns: no new concerns at this time Patient's current pain medications has been reviewed and includes: DRUG FREQ Percocet qid qid Patient's most recent interventional procedures: PROCEDURE DATE % Relief & Duration Interlaminar Lumbar Epidural Steroid Injection L3 - L4 12/19/20 ROS Constitutional: denies dizziness, sedation, or somnolence Psychological: denies altered mentation or euphoria GI: denies significant constipation or diarrhea Musc: denies acute change in numbness, weakness, or tingling of extemities MEDICATIONS Current Outpatient Medications Medication Sig Dispense Refill - ALPRAZolam (Xanax) 0.5 MG tablet Take 1 tablet once to twice daily as needed 45 tablet 0 - calcium-vitamin D 500 mg(1,250mg) -200 unit per tablet Take 1 tablet by mouth 2 (two) times a day with meals. 180 tablet 2 - cetirizine (ZyrTEC) 10 MG tablet Take 1 tablet (10 mg total) by mouth once daily. 90 tablet 1 - cholecalciferol (VITAMIN D3) 125 mcg (5,000 unit) capsule Take 1 capsule (5,000 Units total) by mouth once daily. 100 capsule 3 - diaper,brief,adult,disposable Misc 1 application by Miscellaneous route 2 (two) times a day. 96 each 5 - DULoxetine (CYMBALTA) 30 MG capsule Take 1 capsule (30 mg total) by mouth daily every night. 60 capsule 1 - fluticasone propionate (Flovent Diskus) 250 mcg/actuation Disk with Device Inhale 1 puff into the lungs 2 (two) times a day. 60 each 3 - food supplemt, lactose-reduced (Ensure) Liquid Drink 2 bottles per day. Patient requests strawberry. 44538 mL 3 - hydroCHLOROthiazide (HYDRODIURIL) 25 MG tablet TAKE 1/2 TABLET BY MOUTH DAILY 15 tablet 1 - ibandronate (Boniva) 150 mg tablet Take 1 tablet (150 mg total) by mouth every 30 (thirty) days. Take sitting upright once mobnthly on empty stomach with glass of water , dont lay down or eat for full hour 3 tablet 4 - ipratropium-albuteroL (DUO-NEB) 0.5-2.5 mg/3 mL nebulizer NEBULIZE 1 VIAL (3 ML) BY MOUTH FOUR TIMES A DAY 360 mL 1 - lisinopriL (PRINIVIL,ZESTRIL) 5 MG tablet TAKE ONE TABLET BY MOUTH DAILY 30 tablet 1 - misc[place] [facility] [place] for use for breathing problems for duo-nebs treatments 1 each 0 - miscellaneous medical [place] [facility] [place] mask, tubing and filter for nebulizer machine to be changed every 3 months. 1 each 3 - miscellaneous medical [place] [facility] [place] incontinence pads, 2 per day 100 each 6 - naloxone 2 mg/actuation [place], Non-Aerosol 2 mg by Nasal route as needed. 1-2 daily PRN. Proceed to ER for evaluation immediately following use. 4 each 1 - omeprazole (PriLOSEC) 40 MG capsule Take 1 capsule (40 mg total) by mouth once daily. 30 capsule 7 - ondansetron (Zofran ODT) [address] 1-2 tablets (4-8 mg total) under the tongue every 8 (eight) hours as needed for nausea / vomiting. 30 tablet 5 - oxyCODONE-acetaminophen (Percocet) 10-325 mg tablet Take 1 tablet by mouth every 6 (six) hours as needed for pain. To Last 30days. No early refills Max Daily Amount: 4 tablets 120 tablet 0 - oxyCODONE-acetaminophen (Percocet) 10-325 mg tablet Take 1 tablet by mouth every 6 (six) hours as needed for pain. To Last 30days. No early refills Max Daily Amount: 4 tablets 120 tablet 0 - potassium chloride (KLOR-CON) 10 MEQ CR tablet TAKE TWO TABLETS BY MOUTH TWICE A DAY 120 tablet 1 - prazosin (MINIPRESS) 2 MG capsule TAKE THREE CAPSULES BY MOUTH EVERY EVENING 270 capsule 1 - ProAir HFA 90 mcg/actuation inhaler INHALE TWO PUFFS BY MOUTH FOUR TIMES A DAY 8.5 g 11 - tiZANidine (ZANAFLEX) 4 MG tablet Take 1 tablet (4 mg total) by mouth 2 (two) times a day. 60 tablet 3 - traZODone (DESYREL) 50 MG tablet Take 0.5-1 tablets (25-50 mg total) by mouth once nightly as needed for sleep. 60 tablet 1 - umeclidinium-vilanteroL (Anoro Ellipta) 62.5-25 mcg/actuation Disk with Device Inhale 1 puff into the lungs once daily. 1 each 6 Current Facility-Administered Medications Medication Dose Route Frequency Provider Last Rate Last Admin - pneumococcal 20-valent vaccine (PREVNAR 20) syringe 0.5 mL IntraMuscular Once Mike Ann Jr., MD ALLERGIES Allergies Allergen Reactions - Penicillins Anaphylaxis - Gabapentin Other (See Comments) severe fatigue - Sulfa (Sulfonamide Antibiotics) Other (See Comments) Blisters inside and outside of mouth. - Wellbutrin [Bupropion Hcl] Other (See Comments) Body numbness and tingling - Diazepam Nausea And Vomiting - Varenicline PHYSICAL EXAM Vital Signs: There were no vitals taken for this visit. Constitutional: Well nourished, well groomed, NAD. CARDIAC: Regular Rate LUNGS: Breathing nonlabored, no wheezing Neurologic: Alert & oriented x 3, normal gait, no focal deficits noted. Psychiatric: Affect normal, judgment normal, mood normal. Other Affected BA/OS: Chronic Opiate Therapy Risk Mitigation: Risk Assessment Evaluation Assessment Morphine Equivalents 60 Date of Last UDS SOAPP-R Score Behavior Risks none Physical Risks none H/o Illegal Substance Abuse denies H/o Alcohol abuse denies OPIATE RISK ASSESSMENT: LOW (Routine medication monitoring, Annual UDS) Assessment is based treating physicians overall evaluation of multiple factors including MME load, age, comorbidity, medication profile, and social risk factors. The risks/benefits of chronic opiate therapy was discussed with patient including failure of therapy, psychological addiction, physiological dependence, and risk withdrawal syndrome. Warning symptoms of potential opiate overuse/overdose were discussed including sedation, somnolence, and altered mentation were reviewed and I counseled patient these symptoms can occur even when patient have been on a stable dose and also can happen despite following physicians instructions. Alternative therapies were discussed including: non-opiate medications, interventional pain procedures, and Cognitive Behavioral Therapy. After discussing these alternatives with the patient, the patient has opted to decline these alternatives at this time. Patient has tried and failed more conservative measures and were either ineffective or intolerant. In my medical opinion non-opiate therapy is not appropriate to address the patient's medical condition at this time and will continue chronic opiate therapy after having addressed efficacy, adverse side effects, and safety of therapy with the patient. The patient indicates understanding of these issues and agrees with the plan. LIFESTYLE COUNSELING: Time was spent discussing the importance of a home exercise program to promote strength, activity endurance and pain tolerance. Patient was also counseled on avoidance of tobacco products for general health as well as improved chronic pain control. ASSESSMENT AND PLAN Problem List Items Addressed This Visit Cervical radiculopathy - Primary Failed back syndrome Lumbar spondylosis PLAN: 1. Patient is stable functional and meeting the goals of chronic opiate therapy without adverse side effects, misuse, or safety concerns. PDMP was reviewed without redflags or other concerns. 2. I counseled her on the importance of maintaining her activity and low-impact exercise such as walking on a daily basis to promote good health and improve chronic pain management. 3. She did very well with recent Cervical WAQAR 4. PAtient notes that she has increasing right knee pain. She has had prior RIGHT TKA. She notes she also has had prior RIGHT genicular RFA for her knee pain which was very effective 3yrs ago. She requests repeat RFA. I will schedule her for repeat genicular nerve RFA for the right knee 5. I will continue her percocet to 10/325 qid and f/u in 4 weeks The patient indicates understanding of these issues and agrees with the plan. I reviewed the patient's medical information and medical history. I have reviewed the past medical, family, and social history sections including the medications and allergies listed in the above medical record. Patient was counseled that in my practice I do not prescribe chronic opiate therapy in the presence of ongoing illegal substance use. Patient was also counseled that drug screen testing is medically necessary from time to time to help stratify risks associated with chronic opiate therapy by assessing compliance with prescribed medications as well as to identify the presence of illegal substances. Consent for drug screen testing is required for continuation of chronic opiate therapy. Electronically signed by: Isaías Cardenas MD, 06/15/2022 8:52 AM [facility] CHIEF COMPLAINT No chief complaint on file. SUBJECTIVE Ibis Tay is a 67 y.o. female who presents for follow-up of No chief complaint on file. with diagnosis of: 1. Problem List Items Addressed This Visit Cervical radiculopathy - Primary Failed back syndrome Lumbar spondylosis Patient underwent LESI on 12-19-20She notes 50% improvement but continues with low back and joint pain. She notes that she has prior cervical WAQAR with >50% relief lasting 8-10mos. She feels the pain has recurred and would like to proceed with repeat cervical WAQAR She has tried OTC NSAIDs, daily home exercises/stretching she learned through PT without improvement Since patient's last encounter patient reports persistent chronic pain requiring ongoing treatment. Describes the pain as Sharp and Stabbing Patient rates their pain score 7/10 on average and is tolerable. Patient feels that the medication regimen does help maintain the function, mobility, activity tolerance and pain levels at a tolerable level. Patient states that medications changes or injections are not necessary today Patient states that the pain symptoms are stable. Patient denies new or changing pain complaints. Patient notes that the pain is worse with general activity and improved with rest. Patient 's current pain medication regimen has been reviewed with the patient and they note that the medication regimen is effective and reports that they are taking the medication regimen as prescribed. Patient denies running out of medication early or having an excess supply of medications. Other concerns: no new concerns at this time Patient's current pain medications has been reviewed and includes: DRUG FREQ Percocet qid qid Patient's most recent interventional procedures: PROCEDURE DATE % Relief & Duration Interlaminar Lumbar Epidural Steroid Injection L3 - L4 12/19/20 ROS Constitutional: denies dizziness, sedation, or somnolence Psychological: denies altered mentation or euphoria GI: denies significant constipation or diarrhea Musc: denies acute change in numbness, weakness, or tingling of extemities MEDICATIONS Current Outpatient Medications Medication Sig Dispense Refill - ALPRAZolam (Xanax) 0.5 MG tablet Take 1 tablet once to twice daily as needed 45 tablet 0 - calcium-vitamin D 500 mg(1,250mg) -200 unit per tablet Take 1 tablet by mouth 2 (two) times a day with meals. 180 tablet 2 - cetirizine (ZyrTEC) 10 MG tablet Take 1 tablet (10 mg total) by mouth once daily. 90 tablet 1 - cholecalciferol (VITAMIN D3) 125 mcg (5,000 unit) capsule Take 1 capsule (5,000 Units total) by mouth once daily. 100 capsule 3 - diaper,brief,adult,disposable Misc 1 application by Miscellaneous route 2 (two) times a day. 96 each 5 - DULoxetine (CYMBALTA) 30 MG capsule Take 1 capsule (30 mg total) by mouth daily every night. 60 capsule 1 - fluticasone propionate (Flovent Diskus) 250 mcg/actuation Disk with Device Inhale 1 puff into the lungs 2 (two) times a day. 60 each 3 - food supplemt, lactose-reduced (Ensure) Liquid Drink 2 bottles per day. Patient requests strawberry. 20864 mL 3 - hydroCHLOROthiazide (HYDRODIURIL) 25 MG tablet TAKE 1/2 TABLET BY MOUTH DAILY 15 tablet 1 - ibandronate (Boniva) 150 mg tablet Take 1 tablet (150 mg total) by mouth every 30 (thirty) days. Take sitting upright once mobnthly on empty stomach with glass of water , dont lay down or eat for full hour 3 tablet 4 - ipratropium-albuteroL (DUO-NEB) 0.5-2.5 mg/3 mL nebulizer NEBULIZE 1 VIAL (3 ML) BY MOUTH FOUR TIMES A DAY 360 mL 1 - lisinopriL (PRINIVIL,ZESTRIL) 5 MG tablet TAKE ONE TABLET BY MOUTH DAILY 30 tablet 1 - misc[place] [facility] [place] for use for breathing problems for duo-nebs treatments 1 each 0 - miscellaneous medical [place] [facility] [place] mask, tubing and filter for nebulizer machine to be changed every 3 months. 1 each 3 - miscellaneous medical [place] [facility] [place] incontinence pads, 2 per day 100 each 6 - naloxone 2 mg/actuation [place], Non-Aerosol 2 mg by Nasal route as needed. 1-2 daily PRN. Proceed to ER for evaluation immediately following use. 4 each 1 - omeprazole (PriLOSEC) 40 MG capsule Take 1 capsule (40 mg total) by mouth once daily. 30 capsule 7 - ondansetron (Zofran ODT) [address] 1-2 tablets (4-8 mg total) under the tongue every 8 (eight) hours as needed for nausea / vomiting. 30 tablet 5 - oxyCODONE-acetaminophen (Percocet) 10-325 mg tablet Take 1 tablet by mouth every 6 (six) hours as needed for pain. To Last 30days. No early refills Max Daily Amount: 4 tablets 120 tablet 0 - oxyCODONE-acetaminophen (Percocet) 10-325 mg tablet Take 1 tablet by mouth every 6 (six) hours as needed for pain. To Last 30days. No early refills Max Daily Amount: 4 tablets 120 tablet 0 - potassium chloride (KLOR-CON) 10 MEQ CR tablet TAKE TWO TABLETS BY MOUTH TWICE A DAY 120 tablet 1 - prazosin (MINIPRESS) 2 MG capsule TAKE THREE CAPSULES BY MOUTH EVERY EVENING 270 capsule 1 - ProAir HFA 90 mcg/actuation inhaler INHALE TWO PUFFS BY MOUTH FOUR TIMES A DAY 8.5 g 11 - tiZANidine (ZANAFLEX) 4 MG tablet Take 1 tablet (4 mg total) by mouth 2 (two) times a day. 60 tablet 3 - traZODone (DESYREL) 50 MG tablet Take 0.5-1 tablets (25-50 mg total) by mouth once nightly as needed for sleep. 60 tablet 1 - umeclidinium-vilanteroL (Anoro Ellipta) 62.5-25 mcg/actuation Disk with Device Inhale 1 puff into the lungs once daily. 1 each 6 Current Facility-Administered Medications Medication Dose Route Frequency Provider Last Rate Last Admin - pneumococcal 20-valent vaccine (PREVNAR 20) syringe 0.5 mL IntraMuscular Once Mike Ann Jr., MD ALLERGIES Allergies Allergen Reactions - Penicillins Anaphylaxis - Gabapentin Other (See Comments) severe fatigue - Sulfa (Sulfonamide Antibiotics) Other (See Comments) Blisters inside and outside of mouth. - Wellbutrin [Bupropion Hcl] Other (See Comments) Body numbness and tingling - Diazepam Nausea And Vomiting - Varenicline PHYSICAL EXAM Vital Signs: There were no vitals taken for this visit. Constitutional: Well nourished, well groomed, NAD. CARDIAC: Regular Rate LUNGS: Breathing nonlabored, no wheezing Neurologic: Alert & oriented x 3, normal gait, no focal deficits noted. Psychiatric: Affect normal, judgment normal, mood normal. Other Affected BA/OS: Chronic Opiate Therapy Risk Mitigation: Risk Assessment Evaluation Assessment Morphine Equivalents 60 Date of Last UDS SOAPP-R Score Behavior Risks none Physical Risks none H/o Illegal Substance Abuse denies H/o Alcohol abuse denies OPIATE RISK ASSESSMENT: LOW (Routine medication monitoring, Annual UDS) Assessment is based treating physicians overall evaluation of multiple factors including MME load, age, comorbidity, medication profile, and social risk factors. The risks/benefits of chronic opiate therapy was discussed with patient including failure of therapy, psychological addiction, physiological dependence, and risk withdrawal syndrome. Warning symptoms of potential opiate overuse/overdose were discussed including sedation, somnolence, and altered mentation were reviewed and I counseled patient these symptoms can occur even when patient have been on a stable dose and also can happen despite following physicians instructions. Alternative therapies were discussed including: non-opiate medications, interventional pain procedures, and Cognitive Behavioral Therapy. After discussing these alternatives with the patient, the patient has opted to decline these alternatives at this time. Patient has tried and failed more conservative measures and were either ineffective or intolerant. In my medical opinion non-opiate therapy is not appropriate to address the patient's medical condition at this time and will continue chronic opiate therapy after having addressed efficacy, adverse side effects, and safety of therapy with the patient. The patient indicates understanding of these issues and agrees with the plan. LIFESTYLE COUNSELING: Time was spent discussing the importance of a home exercise program to promote strength, activity endurance and pain tolerance. Patient was also counseled on avoidance of tobacco products for general health as well as improved chronic pain control. ASSESSMENT AND PLAN Problem List Items Addressed This Visit Cervical radiculopathy - Primary Failed back syndrome Lumbar spondylosis PLAN: 6. Patient is stable functional and meeting the goals of chronic opiate therapy without adverse side effects, misuse, or safety concerns. PDMP was reviewed without redflags or other concerns. 7. I counseled her on the importance of maintaining her activity and low-impact exercise such as walking on a daily basis to promote good health and improve chronic pain management. 8. She did very well with recent Cervical WAQAR 9. I will continue her percocet to 10/325 qid and f/u in 4 weeks The patient indicates understanding of these issues and agrees with the plan. I reviewed the patient's medical information and medical history. I have reviewed the past medical, family, and social history sections including the medications and allergies listed in the above medical record. Patient was counseled that in my practice I do not prescribe chronic opiate therapy in the presence of ongoing illegal substance use. Patient was also counseled that drug screen testing is medically necessary from time to time to help stratify risks associated with chronic opiate therapy by assessing compliance with prescribed medications as well as to identify the presence of illegal substances. Consent for drug screen testing is required for continuation of chronic opiate therapy. Electronically signed by: Isaías Cardenas MD, 06/15/2022 8:52 AM ISAÍAS CARDENAS [facility] 2022-03-31 15:00:00 [facility] CHIEF COMPLAINT No chief complaint on file. SUBJECTIVE Ibis Tay is a 67 y.o. female who presents for follow-up of No chief complaint on file. with diagnosis of: 1. Problem List Items Addressed This Visit Cervical radiculopathy Failed back syndrome Lumbar spondylosis Patient underwent LESI on 12-19-20She notes 50% improvement but continues with low back and joint pain. She notes that she has prior cervical WAQAR with >50% relief lasting 8-10mos. She feels the pain has recurred and would like to proceed with repeat cervical WAQAR She has tried OTC NSAIDs, daily home exercises/stretching she learned through PT without improvement Since patient's last encounter patient reports persistent chronic pain requiring ongoing treatment. Describes the pain as Sharp and Stabbing Patient rates their pain score 7/10 on average and is tolerable. Patient feels that the medication regimen does help maintain the function, mobility, activity tolerance and pain levels at a tolerable level. Patient states that medications changes or injections are not necessary today Patient states that the pain symptoms are stable. Patient denies new or changing pain complaints. Patient notes that the pain is worse with general activity and improved with rest. Patient 's current pain medication regimen has been reviewed with the patient and they note that the medication regimen is effective and reports that they are taking the medication regimen as prescribed. Patient denies running out of medication early or having an excess supply of medications. Other concerns: no new concerns at this time Patient's current pain medications has been reviewed and includes: DRUG FREQ Percocet qid qid Patient's most recent interventional procedures: PROCEDURE DATE % Relief & Duration Interlaminar Lumbar Epidural Steroid Injection L3 - L4 12/19/20 ROS Constitutional: denies dizziness, sedation, or somnolence Psychological: denies altered mentation or euphoria GI: denies significant constipation or diarrhea Musc: denies acute change in numbness, weakness, or tingling of extemities MEDICATIONS Current Outpatient Medications Medication Sig Dispense Refill - [START ON 04/12/2022] ALPRAZolam (Xanax) 0.5 MG tablet Take 1 tablet 1 to 2 times daily as needed 55 tablet 0 - calcium-vitamin D 500 mg(1,250mg) -200 unit per tablet Take 1 tablet by mouth 2 (two) times a day with meals. 180 tablet 2 - cetirizine (ZyrTEC) 10 MG tablet Take 1 tablet (10 mg total) by mouth once daily. 90 tablet 1 - cholecalciferol (VITAMIN D3) 125 mcg (5,000 unit) capsule Take 1 capsule (5,000 Units total) by mouth once daily. 100 capsule 3 - diaper,brief,adult,disposable Misc 1 application by Miscellaneous route 2 (two) times a day. 96 each 5 - DULoxetine (CYMBALTA) 20 MG capsule Take 1 capsule (20 mg total) by mouth once daily. 30 capsule 1 - fluticasone propionate (Flovent Diskus) 250 mcg/actuation Disk with Device Inhale 1 puff into the lungs 2 (two) times a day. 60 each 3 - food supplemt, lactose-reduced (ENSURE) Liquid Drink 2 bottles per day. Patient requests strawberry. 94062 mL PRN - hydroCHLOROthiazide (HYDRODIURIL) 25 MG tablet TAKE 1/2 TABLET BY MOUTH DAILY 15 tablet 1 - ibandronate (Boniva) 150 mg tablet Take 1 tablet (150 mg total) by mouth every 30 (thirty) days. Take sitting upright once mobnthly on empty stomach with glass of water , dont lay down or eat for full hour 3 tablet 4 - ipratropium-albuteroL (DUO-NEB) 0.5-2.5 mg/3 mL nebulizer NEBULIZE 1 VIAL (3 ML) BY MOUTH FOUR TIMES A DAY 360 mL 1 - lisinopriL (PRINIVIL,ZESTRIL) 5 MG tablet TAKE ONE TABLET BY MOUTH DAILY 30 tablet 1 - melatonin 5 mg Tablet Take 1 tablet (5 mg total) by mouth daily every night. 30 tablet 1 - misc[place] [facility] [place] for use for breathing problems for duo-nebs treatments 1 each 0 - miscellaneous medical [place] [facility] [place], tubing and filter for nebulizer machine to be changed every 3 months. 1 each 3 - naloxone 2 mg/actuation [place], Non-Aerosol 2 mg by Nasal route as needed. 1-2 daily PRN. Proceed to ER for evaluation immediately following use. (Patient not taking: Reported on 03/12/2022 ) 4 each 1 - omeprazole (PriLOSEC) 40 MG capsule Take 1 capsule (40 mg total) by mouth once daily. 30 capsule 7 - ondansetron (Zofran ODT) [address] 1-2 tablets (4-8 mg total) under the tongue every 8 (eight) hours as needed for nausea / vomiting. 30 tablet 5 - oxyCODONE-acetaminophen (Percocet) 10-325 mg tablet Take 1 tablet by mouth every 6 (six) hours as needed for pain. To Last 30days. No early refills Max Daily Amount: 4 tablets 120 tablet 0 - potassium chloride (KLOR-CON) 10 MEQ CR tablet TAKE TWO TABLETS BY MOUTH TWICE A DAY 120 tablet 1 - prazosin (MINIPRESS) 2 MG capsule TAKE THREE CAPSULES BY MOUTH EVERY EVENING 270 capsule 1 - ProAir HFA 90 mcg/actuation inhaler INHALE TWO PUFFS BY MOUTH FOUR TIMES A DAY 8.5 g 11 - tiZANidine (ZANAFLEX) 4 MG tablet Take 1 tablet (4 mg total) by mouth 2 (two) times a day. 60 tablet 3 - umeclidinium-vilanteroL (Anoro Ellipta) 62.5-25 mcg/actuation Disk with Device Inhale 1 puff into the lungs once daily. 1 each 6 No current facility-administered medications for this visit. ALLERGIES Allergies Allergen Reactions - Penicillins Anaphylaxis - Gabapentin Other (See Comments) severe fatigue - Sulfa (Sulfonamide Antibiotics) Other (See Comments) Blisters inside and outside of mouth. - Wellbutrin [Bupropion Hcl] Other (See Comments) Body numbness and tingling - Diazepam Nausea And Vomiting - Varenicline PHYSICAL EXAM Vital Signs: There were no vitals taken for this visit. Constitutional: Well nourished, well groomed, NAD. CARDIAC: Regular Rate LUNGS: Breathing nonlabored, no wheezing Neurologic: Alert & oriented x 3, normal gait, no focal deficits noted. Psychiatric: Affect normal, judgment normal, mood normal. Other Affected BA/OS: Chronic Opiate Therapy Risk Mitigation: Risk Assessment Evaluation Assessment Morphine Equivalents 60 Date of Last UDS SOAPP-R Score Behavior Risks none Physical Risks none H/o Illegal Substance Abuse denies H/o Alcohol abuse denies OPIATE RISK ASSESSMENT: LOW (Routine medication monitoring, Annual UDS) Assessment is based treating physicians overall evaluation of multiple factors including MME load, age, comorbidity, medication profile, and social risk factors. The risks/benefits of chronic opiate therapy was discussed with patient including failure of therapy, psychological addiction, physiological dependence, and risk withdrawal syndrome. Warning symptoms of potential opiate overuse/overdose were discussed including sedation, somnolence, and altered mentation were reviewed and I counseled patient these symptoms can occur even when patient have been on a stable dose and also can happen despite following physicians instructions. Alternative therapies were discussed including: non-opiate medications, interventional pain procedures, and Cognitive Behavioral Therapy. After discussing these alternatives with the patient, the patient has opted to decline these alternatives at this time. Patient has tried and failed more conservative measures and were either ineffective or intolerant. In my medical opinion non-opiate therapy is not appropriate to address the patient's medical condition at this time and will continue chronic opiate therapy after having addressed efficacy, adverse side effects, and safety of therapy with the patient. The patient indicates understanding of these issues and agrees with the plan. LIFESTYLE COUNSELING: Time was spent discussing the importance of a home exercise program to promote strength, activity endurance and pain tolerance. Patient was also counseled on avoidance of tobacco products for general health as well as improved chronic pain control. ASSESSMENT AND PLAN Problem List Items Addressed This Visit Cervical radiculopathy Failed back syndrome Lumbar spondylosis PLAN: 1. Patient is stable functional and meeting the goals of chronic opiate therapy without adverse side effects, misuse, or safety concerns. PDMP was reviewed without redflags or other concerns. 2. I counseled her on the importance of maintaining her activity and low-impact exercise such as walking on a daily basis to promote good health and improve chronic pain management. 3. She did very well with recent Cervical WAQAR 4. PAtient notes that she has increasing right knee pain. She has had prior RIGHT TKA. She notes she also has had prior RIGHT genicular RFA for her knee pain which was very effective 3yrs ago. She requests repeat RFA. I will schedule her for repeat genicular nerve RFA for the right knee 5. I will continue her percocet to 10/325 qid and f/u in 4 weeks The patient indicates understanding of these issues and agrees with the plan. I reviewed the patient's medical information and medical history. I have reviewed the past medical, family, and social history sections including the medications and allergies listed in the above medical record. Patient was counseled that in my practice I do not prescribe chronic opiate therapy in the presence of ongoing illegal substance use. Patient was also counseled that drug screen testing is medically necessary from time to time to help stratify risks associated with chronic opiate therapy by assessing compliance with prescribed medications as well as to identify the presence of illegal substances. Consent for drug screen testing is required for continuation of chronic opiate therapy. Electronically signed by: Isaías Cardenas MD, 03/31/2022 3:39 PM [facility] CHIEF COMPLAINT No chief complaint on file. SUBJECTIVE Ibis Tay is a 67 y.o. female who presents for follow-up of No chief complaint on file. with diagnosis of: 1. Problem List Items Addressed This Visit Cervical radiculopathy Failed back syndrome Lumbar spondylosis Patient underwent LESI on 12-19-20She notes 50% improvement but continues with low back and joint pain. She notes that she has prior cervical WAQAR with >50% relief lasting 8-10mos. She feels the pain has recurred and would like to proceed with repeat cervical WAQAR She has tried OTC NSAIDs, daily home exercises/stretching she learned through PT without improvement Since patient's last encounter patient reports persistent chronic pain requiring ongoing treatment. Describes the pain as Sharp and Stabbing Patient rates their pain score 7/10 on average and is tolerable. Patient feels that the medication regimen does help maintain the function, mobility, activity tolerance and pain levels at a tolerable level. Patient states that medications changes or injections are not necessary today Patient states that the pain symptoms are stable. Patient denies new or changing pain complaints. Patient notes that the pain is worse with general activity and improved with rest. Patient 's current pain medication regimen has been reviewed with the patient and they note that the medication regimen is effective and reports that they are taking the medication regimen as prescribed. Patient denies running out of medication early or having an excess supply of medications. Other concerns: no new concerns at this time Patient's current pain medications has been reviewed and includes: DRUG FREQ Percocet qid qid Patient's most recent interventional procedures: PROCEDURE DATE % Relief & Duration Interlaminar Lumbar Epidural Steroid Injection L3 - L4 12/19/20 ROS Constitutional: denies dizziness, sedation, or somnolence Psychological: denies altered mentation or euphoria GI: denies significant constipation or diarrhea Musc: denies acute change in numbness, weakness, or tingling of extemities MEDICATIONS Current Outpatient Medications Medication Sig Dispense Refill - [START ON 04/12/2022] ALPRAZolam (Xanax) 0.5 MG tablet Take 1 tablet 1 to 2 times daily as needed 55 tablet 0 - calcium-vitamin D 500 mg(1,250mg) -200 unit per tablet Take 1 tablet by mouth 2 (two) times a day with meals. 180 tablet 2 - cetirizine (ZyrTEC) 10 MG tablet Take 1 tablet (10 mg total) by mouth once daily. 90 tablet 1 - cholecalciferol (VITAMIN D3) 125 mcg (5,000 unit) capsule Take 1 capsule (5,000 Units total) by mouth once daily. 100 capsule 3 - diaper,brief,adult,disposable Misc 1 application by Miscellaneous route 2 (two) times a day. 96 each 5 - DULoxetine (CYMBALTA) 20 MG capsule Take 1 capsule (20 mg total) by mouth once daily. 30 capsule 1 - fluticasone propionate (Flovent Diskus) 250 mcg/actuation Disk with Device Inhale 1 puff into the lungs 2 (two) times a day. 60 each 3 - food supplemt, lactose-reduced (ENSURE) Liquid Drink 2 bottles per day. Patient requests strawberry. 24297 mL PRN - hydroCHLOROthiazide (HYDRODIURIL) 25 MG tablet TAKE 1/2 TABLET BY MOUTH DAILY 15 tablet 1 - ibandronate (Boniva) 150 mg tablet Take 1 tablet (150 mg total) by mouth every 30 (thirty) days. Take sitting upright once mobnthly on empty stomach with glass of water , dont lay down or eat for full hour 3 tablet 4 - ipratropium-albuteroL (DUO-NEB) 0.5-2.5 mg/3 mL nebulizer NEBULIZE 1 VIAL (3 ML) BY MOUTH FOUR TIMES A DAY 360 mL 1 - lisinopriL (PRINIVIL,ZESTRIL) 5 MG tablet TAKE ONE TABLET BY MOUTH DAILY 30 tablet 1 - melatonin 5 mg Tablet Take 1 tablet (5 mg total) by mouth daily every night. 30 tablet 1 - misc[place] [facility] [place] for use for breathing problems for duo-nebs treatments 1 each 0 - misc[place] medical [place] [facility] [place], tubing and filter for nebulizer machine to be changed every 3 months. 1 each 3 - naloxone 2 mg/actuation [place], Non-Aerosol 2 mg by Nasal route as needed. 1-2 daily PRN. Proceed to ER for evaluation immediately following use. (Patient not taking: Reported on 03/12/2022 ) 4 each 1 - omeprazole (PriLOSEC) 40 MG capsule Take 1 capsule (40 mg total) by mouth once daily. 30 capsule 7 - ondansetron (Zofran ODT) [address] 1-2 tablets (4-8 mg total) under the tongue every 8 (eight) hours as needed for nausea / vomiting. 30 tablet 5 - oxyCODONE-acetaminophen (Percocet) 10-325 mg tablet Take 1 tablet by mouth every 6 (six) hours as needed for pain. To Last 30days. No early refills Max Daily Amount: 4 tablets 120 tablet 0 - potassium chloride (KLOR-CON) 10 MEQ CR tablet TAKE TWO TABLETS BY MOUTH TWICE A DAY 120 tablet 1 - prazosin (MINIPRESS) 2 MG capsule TAKE THREE CAPSULES BY MOUTH EVERY EVENING 270 capsule 1 - ProAir HFA 90 mcg/actuation inhaler INHALE TWO PUFFS BY MOUTH FOUR TIMES A DAY 8.5 g 11 - tiZANidine (ZANAFLEX) 4 MG tablet Take 1 tablet (4 mg total) by mouth 2 (two) times a day. 60 tablet 3 - umeclidinium-vilanteroL (Anoro Ellipta) 62.5-25 mcg/actuation Disk with Device Inhale 1 puff into the lungs once daily. 1 each 6 No current facility-administered medications for this visit. ALLERGIES Allergies Allergen Reactions - Penicillins Anaphylaxis - Gabapentin Other (See Comments) severe fatigue - Sulfa (Sulfonamide Antibiotics) Other (See Comments) Blisters inside and outside of mouth. - Wellbutrin [Bupropion Hcl] Other (See Comments) Body numbness and tingling - Diazepam Nausea And Vomiting - Varenicline PHYSICAL EXAM Vital Signs: There were no vitals taken for this visit. Constitutional: Well nourished, well groomed, NAD. CARDIAC: Regular Rate LUNGS: Breathing nonlabored, no wheezing Neurologic: Alert & oriented x 3, normal gait, no focal deficits noted. Psychiatric: Affect normal, judgment normal, mood normal. Other Affected BA/OS: Chronic Opiate Therapy Risk Mitigation: Risk Assessment Evaluation Assessment Morphine Equivalents 60 Date of Last UDS SOAPP-R Score Behavior Risks none Physical Risks none H/o Illegal Substance Abuse denies H/o Alcohol abuse denies OPIATE RISK ASSESSMENT: LOW (Routine medication monitoring, Annual UDS) Assessment is based treating physicians overall evaluation of multiple factors including MME load, age, comorbidity, medication profile, and social risk factors. The risks/benefits of chronic opiate therapy was discussed with patient including failure of therapy, psychological addiction, physiological dependence, and risk withdrawal syndrome. Warning symptoms of potential opiate overuse/overdose were discussed including sedation, somnolence, and altered mentation were reviewed and I counseled patient these symptoms can occur even when patient have been on a stable dose and also can happen despite following physicians instructions. Alternative therapies were discussed including: non-opiate medications, interventional pain procedures, and Cognitive Behavioral Therapy. After discussing these alternatives with the patient, the patient has opted to decline these alternatives at this time. Patient has tried and failed more conservative measures and were either ineffective or intolerant. In my medical opinion non-opiate therapy is not appropriate to address the patient's medical condition at this time and will continue chronic opiate therapy after having addressed efficacy, adverse side effects, and safety of therapy with the patient. The patient indicates understanding of these issues and agrees with the plan. LIFESTYLE COUNSELING: Time was spent discussing the importance of a home exercise program to promote strength, activity endurance and pain tolerance. Patient was also counseled on avoidance of tobacco products for general health as well as improved chronic pain control. ASSESSMENT AND PLAN Problem List Items Addressed This Visit Cervical radiculopathy Failed back syndrome Lumbar spondylosis PLAN: 6. Patient is stable functional and meeting the goals of chronic opiate therapy without adverse side effects, misuse, or safety concerns. PDMP was reviewed without redflags or other concerns. 7. I counseled her on the importance of maintaining her activity and low-impact exercise such as walking on a daily basis to promote good health and improve chronic pain management. 8. She did very well with recent Cervical WAQAR 9. I will continue her percocet to 10/325 qid and f/u in 4 weeks The patient indicates understanding of these issues and agrees with the plan. I reviewed the patient's medical information and medical history. I have reviewed the past medical, family, and social history sections including the medications and allergies listed in the above medical record. Patient was counseled that in my practice I do not prescribe chronic opiate therapy in the presence of ongoing illegal substance use. Patient was also counseled that drug screen testing is medically necessary from time to time to help stratify risks associated with chronic opiate therapy by assessing compliance with prescribed medications as well as to identify the presence of illegal substances. Consent for drug screen testing is required for continuation of chronic opiate therapy. Electronically signed by: Isaías Cardenas MD, 03/31/2022 3:39 PM ISAÍAS CARDENAS [facility] 2022-03-12 11:00:00 Patient, Ibis anderson s consent to Mike Ann Jr., MD's use of Augmedix at today's visit. [facility] 2022-03-12 11:00:00 Medicare Subsequent Wellness Visit (Third or Visit) CPT Code is G0439 Billing Advice includes: Update Medical/Family history Measurement of height, weight, BMI, BP and complete exam including pap/breast and prostate if appropriate Screening for Cognitive disorder, depression, ADL, and Falls Update health risk factors Update list Provide a written list of risk factors and screening tests to patient in the patient instructions Advance Directive Planning if appropriate Chief Complaint: Chief Complaint Patient presents with - Annual Exam Medicare physical - Follow-up From ED, severe anxiety attack, a few days after she was shocked by outdoor ac unit wasn't able to keep anything fluid or solid down. Granddaughter called abulance for her on 02/14 d/c same day HPI: Ibis Tay is a 67 y.o. female who is here for her Medicare Annual Wellness physical exam. She describes her current health as poor. She is currently retired. Her diet is described as in general, a healthy diet. Her exercise level is moderately active does walking september while watching TV. She is not sexually active, but is seeing someone. Her immunizations have been reviewed. She is due for her Prevnar and would like to receive it today. Her age appropriate risk factors for cardiovascular disease, sexual risk, lifestyle risk have been reviewed and addressed. Emergency room follow-up: She was seen in the emergency room on 02/14/2022. She states she received a shock from an outdoor AC unit and she was not able to keep any fluid, solids or medication down. She was vomiting frequently and had severe anxiety attack. Next day her Granddaughter called an ambulance for her and she went to the emergency room. She was discharged with advise to drink fluids and continue with potassium supplement. She is taking Zofran with benefit for nausea currently and request for a refill today. She feels she has increased reflux after vomiting. She was unable to keep her medications down resulting in elevated blood pressure during her emergency room visit. Peripheral vascular disease: The patient has a history of peripheral vascular disease and has been evaluated by Dr. Swan for the same. She was told that she in not a suitable candidate for operation. She is able to walk about half a block without pain and then develops pain in her legs. Hypertension: She has a history of hypertension and continues on prazosin 2 mg 3 pills every evening, lisinopril 5 mg once in a day, and hydrochlorothiazide 25 mg once in a day. She denies any known side effects of the medications. She is trying to follow a low-salt diet and has been attempting to walk for 30 minutes at-least 5 times weekly. She also has a history of hypokalemia and takes potassium chloride 10 meq BID. Her blood pressure was at 88/52 initially and on recheck at 130/72 (left arm) and 126/70 (right arm) today. She denies any headaches, chest pain, shortness of breath, or lower extremity swelling at present. Anxiety: She has a history of anxiety. Her anxiety was poorly controlled and she reported frequent panic attacks during her last visit on 01/25/2022. She was started on Xanax 0.5 twice a day as needed for anxiety and advised to follow up with Psychiatry. She saw Psychiatry on 02/23/2022 and was started on sertraline 25 mg once in a day, but is not taking it at this time due to the side effects. Her manugrapher wants her to see a therapist to wean off of Xanax, but she does not want to get off of Xanax. She state she is not depressed and does not need any medication for it. She has an upcoming appointment with Psychiatry on 03/23/2022. Chronic pain: She has a history of chronic back pain. She underwent LESI on 12-19-2020 with about 50% improvement, but continues to have pain. She takes Zanaflex 4 mg twice a day and Percocet 10-325 every 6 hours as needed for pain. She follows with Dr. Isaías Cardenas, Pain clinic and has a pain contact with him. Her last visit was on 03/09/2022 and has an upcoming appointment on 03/31/2022. COPD: She also has a history of COPD and uses Flovent Diskus 250 mcg/actuation 1 puff twice a day, ProAir inhaler HFA 90 mcg/actuation 2 puffs four times a day, Anoro Ellipta 62.5-25 mcg/actuation q puff once daily, and takes Duo-Neb nebulizer 0.5-2.5 mg/3ml four times a day. In addition she takes Zyrtec 10 mg once in a day for her history of seasonal allergy. She denies any cough or SOB at this time. She is due for her PFT and wants to reschedule for it. She is an everyday smoker. Insomnia: The patient has a history of insomnia. Her current medication regimen includes melatonin 3 mg once in a day. Vitamin D deficiency: She has a history of vitamin D deficiency and takes Vitamin D3 5000 units once daily. Right lower quadrant abdominal pain: She reports right lower quadrant abdominal pain and reports intermittent bump. She wonders if she has a hernia. She was screened for falls risk, depression, functional ability and cognitive impairment within the past year. The results and plan are detailed below. ROS: Review of Systems Constitutional: Negative for appetite change, chills, diaphoresis, fatigue, fever and unexpected weight change. HENT: Negative for dental problem, hearing loss, nosebleeds, postnasal drip, rhinorrhea, sinus pressure, sore throat, tinnitus and voice change. Eyes: Negative for pain and visual disturbance. Respiratory: Negative for cough and shortness of breath. No sputum production Cardiovascular: Negative for chest pain and leg swelling. No orthopnea, no proximal nocturnal dyspnea, or dyspnea on exertion, no claudication, no valvular disease Gastrointestinal: Positive for abdominal pain and nausea. Negative for blood in stool, constipation and diarrhea. No dysphagia, no nausea no vomiting, no hematemesis, no melena, no hematochezia Endocrine: Negative for heat intolerance, polydipsia and polyuria. No skin or hair changes Genitourinary: Negative for difficulty urinating, dysuria, frequency and hematuria. No discharge Musculoskeletal: Positive for back pain. Skin: Negative for color change and rash. Neurological: Negative for dizziness, seizures, syncope, facial asymmetry, weakness and headaches. Hematological: Negative for adenopathy. Does not bruise/bleed easily. Psychiatric/Behavioral: Negative for behavioral problems, confusion and dysphoric mood. The patient is nervous/anxious. No memory changes Allergies and Medications: Allergies Allergen Reactions - Penicillins Anaphylaxis - Gabapentin Other (See Comments) severe fatigue - Sulfa (Sulfonamide Antibiotics) Other (See Comments) Blisters inside and outside of mouth. 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 - Lumbar spondylosis 11/27/2020 - Cervical radiculopathy 11/27/2020 - Stricture of artery ([facility]) 10/24/2020 - Vascular disease, peripheral ([facility]) 09/16/2020 - Secondary malignant neoplasm of other specified sites ([facility]) 09/16/2020 - Compression fracture of body of thoracic vertebra ([facility]) 05/21/2018 - Non-small cell carcinoma of lung ([facility]) 05/21/2018 - Right hand pain - Urinary tract infection without hematuria 11/18/2017 - Fall at home, sequela 11/18/2017 - Acute cystitis without hematuria 11/02/2017 - Malignant neoplasm of upper lobe, left bronchus or lung ([facility]) 10/11/2017 - Lung cancer ([facility]) 08/30/2017 - Mediastinal lymphadenopathy 08/30/2017 - Adenocarcinoma of lung, left ([facility]) - Other chest pain 07/06/2017 - Pulmonary nodule 07/06/2017 - Severe sepsis ([facility]) - Pneumonia of left lower lobe due to infectious organism 07/01/2017 - Community acquired pneumonia 06/03/2017 - COPD exacerbation ([facility]) 06/03/2017 - Hypoxia 06/03/2017 - Dyslipidemia 04/15/2017 - Vitamin D deficiency 02/08/2017 - Anxiety state 01/30/2015 - Pain in joint, lower leg 01/30/2015 - Routine general medical examination at a health care facility 01/30/2015 - Osteoarthritis of knee 01/30/2015 - S/P total knee arthroplasty 01/07/2015 - S/P hip hemiarthroplasty- Left 01/07/2015 - Depression 11/19/2014 - Hip fracture, left ([facility]) 09/26/2014 - Knee osteoarthritis 05/28/2014 - Knee joint replacement status 05/28/2014 - Trochanteric bursitis 05/24/2014 - History of total knee arthroplasty 04/02/2014 - Knee pain 04/02/2014 - Screening 03/05/2014 - Cervical spondylosis with myelopathy 07/02/2013 - Spinal stenosis 10/10/2012 - Anxiety state 04/03/2012 - Cervical disc disease 04/03/2012 - Cervical radiculopathy 04/03/2012 - Hypercholesteremia 02/15/2011 - Hyperlipidemia 02/15/2011 - Generalized anxiety disorder 02/15/2011 - Smoker 02/15/2011 - Essential hypertension 02/15/2011 - Acute bronchitis 02/15/2011 - AR (allergic rhinitis) 02/15/2011 - GERD (gastroesophageal reflux disease) 02/15/2011 - Osteoarthritis of right knee 02/15/2011 - Arthritis 02/15/2011 - DDD (degenerative disc disease) 02/15/2011 - Failed back syndrome 02/15/2011 Immunization History: Immunization History Administered Date(s) Administered - (Shingrix, Recombinant, Adjuvanted) Zoster Vaccine IM 03/19/2020 - Covid-19 Vaccine MRNA (PF) 12yr+ ([employer])([id number]) 09/06/2020, 09/27/2020, 04/23/2021 - Covid-19 Vaccine MRNA(PF, Premixed) 12yr+ ([employer])([id number]) 10/17/2021 - Influenza High Dose Preservative Free IM ([id number]) 04/05/2019 - Influenza TIV (IM) 03/24/2010, 05/01/2012 - Influenza Three-TIV Non-Preservative Free 3+ Years IM 04/17/2014 - Pneumococcal Conjugate (Prevnar) 13-Valent 06/15/2016 - Pneumococcal Conjugate Vaccine (20-Valent) IM 03/12/2022 - Pneumococcal Polysaccharide (Pneumovax) 03/18/2009, 04/18/2014 - Td 7+ years, (TDVAX) 2 Lf tetanus toxoid preservative free 01/29/2013 - Tdap 04/15/2009, 12/29/2016 Past Medical/Surgical History: Past Medical History: Diagnosis Date - Anxiety Takes Xanax - Arthritis - Breast mass 2013 rt axilla - Bronchitis - Bursitis Left hip - Cancer (HCC) left lung cancer, scheduled for left upper lobectomy at [facility] with Dr. Moore - Cervical radiculopathy sees Dr. 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 pylori infection Hx of H pylori infection several months ago treated with medication, no current issues. - H/O pyloric stenosis - Hiatal hernia - HTN (hypertension) - Hypercholesteremia - Hyperlipidemia No current medications or issues. - OA (osteoarthritis) of knee - Oxygen desaturation at night 3.5 liter - Palpitations with anxiety - Peripheral vascular disease (HCC) 10/2020 abdominal pain-stricture liliac artery - Pneumonia 1994 resolved. - PONV (postoperative nausea and vomiting) - PTSD (post-traumatic stress disorder) son was murdered 8 years ago, followed by Dr. Milly Freire - Spinal stenosis cervical - Urinary incontinence - Wears dentures full set - Wears glasses Past Surgical History: Procedure Laterality Date - ESOPHAGEAL DILATION 2012 approx. done with upper endoscopy - KNEE ARTHROPLASTY Right 2010 - LUMBAR FUSION 1995 - LUNG LOBECTOMY Left 10/11/2017 Upper - CO INTRODUCTION CATHETER AORTA Right 11/03/2020 Procedure: ABDOMINAL AORTOGRAM; Surgeon: Imelda Swan MD; Location: [facility]; Service: Vascular - CO TOTAL KNEE ARTHROPLASTY Right 05/28/2014 Procedure: REPLACEMENT TOTAL JOINT KNEE RIGHT / BETO ; Surgeon: Isaak oMncada MD; Location: [facility] OR; Service: Orthopedics - SPINE SURGERY lumbar fusion - TENDON RELEASE Right arm - TOTAL HIP ARTHROPLASTY Left 09/26/14 hip hem-iarthoplasty - TOTAL KNEE ARTHROPLASTY Left 11/23 - TUBAL LIGATION Bilateral - UPPER GASTROINTESTINAL ENDOSCOPY 2012 approx. diagnosed with H. Pylori and esophagus dilated. - UPPER GASTROINTESTINAL ENDOSCOPY Family History: Family History Problem Relation Age of Onset - Other Other Hx: Yes Dx: Diabetes Fam Mem: Family h/o - Drug abuse Other - Other Other Hx: Yes Dx: Hypertension Fam Mem: Mother - Drug abuse Other - Hypertension Mother - Heart disease Mother - Diabetes Mother - No Known Problem Father - Other Sister - Cancer Sister - Other Other Hx: Yes Dx: Heart disease Fam Mem: Mother - Diabetes Maternal Grandmother Extended Social History: Social History Socioeconomic History - Marital status: Spouse name: Not on file - Number of children: Not on file - Years of education: 14 - Highest education level: Not on file Occupational History - Not on file Tobacco Use - Smoking status: Current Every Day Smoker Packs/day: 2.00 Years: 44.00 Pack years: 88.00 Types: Cigarettes, Vaporizer - Smokeless tobacco: Never Used - Tobacco comment: does not completly smoke a cigarette Vaping Use - Vaping Use: Never used Substance and Sexual Activity - Alcohol use: Yes - Drug use: No - Sexual activity: Not Currently Other Topics Concern - Not on file Social History Narrative - Not on file Social Determinants of Health Financial Resource Strain: Not on file Food Insecurity: Not on file Transportation Needs: Not on file Physical Activity: Not on file Stress: Not on file Social Connections: Not on file Intimate Partner Violence: Not on file Education and Employment Education Level: Some College or Technical School Employment: Unemployed Experience: No Living Conditions Marital Status: Children: Yes Comments: 1 son and 1 daughter Grandchildren: Yes Occupants In Home: Lives alone Home Type: Other Comments: Mobile home Pets/Animal Exposure: Yes Safety Domestic Violence: No Feel Safe In Home and With Partner?: Yes Seat Belts: Yes Access to Firearms: No Smoke Detectors: Yes Radon Detectors: No Carbon Monoxide Detectors: Yes Tattoos: No Patient Devices Glasses: Yes Contacts: No Hearing Aids: No Dentures: Yes Lifestyle Baptist Affiliation: Yazidi Spirituality: yes Exercise: Other Diet: Other Care Team: Patient Care Team: Mike Ann Jr., MD as PCP - General Nu Ross RN as Oncology Nurse Navigator MORENA Okeefe (Psychiatry) Objective: No exam data present BP 126/70 Pulse 110 Resp Temp 35.8 C (96.4 F) (Temporal Artery (forehead)) SpO2 97% Wt 53.6 kg (118 lb 4 oz) Ht 160 cm (5' 2.99) Body mass index is 20.95 kg/m . PE: Physical Exam Vitals reviewed. Constitutional: General: She is not in acute distress. Appearance: She is well-developed. She is not ill-appearing. HENT: Head: Normocephalic and atraumatic. Right Ear: Tympanic membrane, ear canal and external ear normal. Left Ear: Tympanic membrane, ear canal and external ear normal. Nose: Nose normal. No mucosal edema or rhinorrhea. Mouth/Throat: Dentition: No dental caries. Comments: Tongue does not look pale. Eyes: General: Lids are normal. Conjunctiva/sclera: Conjunctivae normal. Pupils: Pupils are equal, round, and reactive to light. Comments: Conjunctival sac in within normal limits. Neck: Thyroid: No thyromegaly. Vascular: No JVD. Cardiovascular: Rate and Rhythm: Normal rate and regular rhythm. Heart sounds: Normal heart sounds. No murmur heard. Pulmonary: Effort: Pulmonary effort is normal. Breath sounds: Normal breath sounds. No wheezing. Abdominal: General: Bowel sounds are normal. There is no distension. Palpations: Abdomen is soft. There is no mass. Tenderness: There is no abdominal tenderness. Hernia: No hernia is present. There is no hernia in the right inguinal area. Musculoskeletal: Cervical back: Normal range of motion and neck supple. Lymphadenopathy: Cervical: No cervical adenopathy. Skin: General: Skin is warm. Findings: No lesion or rash. Nails: There is no clubbing. Neurological: Mental Status: She is alert and oriented to person, place, and time. Psychiatric: Speech: Speech normal. Behavior: Behavior normal. Assessment/Plan: Problem List Items Addressed This Visit Essential hypertension Failed back syndrome Relevant Medications tiZANidine (ZANAFLEX) 4 MG tablet Vascular disease, peripheral (HCC) Lumbar spondylosis Relevant Medications tiZANidine (ZANAFLEX) 4 MG tablet Cervical radiculopathy Relevant Medications tiZANidine (ZANAFLEX) 4 MG tablet Other Visit Diagnoses Medicare annual wellness visit, subsequent - Primary Hypokalemia Relevant Orders BASIC METABOLIC PANEL Chronic obstructive pulmonary disease, unspecified COPD type (HCC) (Chronic) Anxiety Nicotine dependence with current use Abdominal wall pain in right lower quadrant Nausea Relevant Medications ondansetron (Zofran ODT) 4 MG disintegrating tablet Immunization due Relevant Medications pneumococcal 20-valent vaccine (PREVNAR 20) syringe (Completed) 1. Medicare annual wellness visit, subsequent Adult immunization scheduled reviewed suggested tetanus diphtheria 1 dose booster every 10 years consider single-dose pertussis update every 10 years as well,elective annual influenza vaccination , consider herpes zoster vaccination once age 60 year-old or older, suggested height weight blood pressure and BMI checks every 1-2 years, clinical breast exam every year digital rectal exam annually age 50 or greater, if previous pelvic exam and Pap smear normal then consider repeat every 3-5 year, discussed screening mammogram every 1-2 years, nutritional assessment and weight l yearly discussed injury prevention with seat belts and helmet use ,discussed smoking cessation as appropriate, safe sex counseling and encouraged regular aerobic exercise 30 minutes 5 times weekly Reassured the patient her lesions are not cancerous. Follow up in 6 months or sooner as needed. 2. Essential hypertension Continue current medication therapy. Goal blood pressure less than 140/90 . Follow low salt diet as well as Dash Diet suggestions, aerobic exercise 30 minutes 5x weekly, keep weight close to ideal. 3. Hypokalemia Ordered blood work. We will call the patient with the results. Continue with current care regimen. - BASIC METABOLIC PANEL; Future - BASIC METABOLIC PANEL 4. Chronic obstructive pulmonary disease, unspecified COPD type (HCC) Continue with current care regimen. Follow up to complete your PFT. 5. Anxiety Continue current medications. Keep your follow up with Psychiatry. 6. Nicotine dependence with current use Advised to quit smoking. 7. Vascular disease, peripheral (HCC) Continue current care. 8. Abdominal wall pain in right lower quadrant Informed hernia was not palpated on the exam today. You could have had a muscle spasm. Recommended trying hot and cold compresses as needed for symptomatic benefit. Your muscle relaxant should resolve your pain. Call the office if the symptoms worsen or fail to improve. 9. Cervical radiculopathy Refilled medications. Continue with current care regimen. - tiZANidine (ZANAFLEX) 4 MG tablet; Take 1 tablet (4 mg total) by mouth 2 (two) times a day. Dispense: 60 tablet; Refill: 3 10. Lumbar spondylosis Refilled medications. Continue with current care regimen. - tiZANidine (ZANAFLEX) 4 MG tablet; Take 1 tablet (4 mg total) by mouth 2 (two) times a day. Dispense: 60 tablet; Refill: 3 11. Failed back syndrome Refilled medications. Continue with current care regimen. - tiZANidine (ZANAFLEX) 4 MG tablet; Take 1 tablet (4 mg total) by mouth 2 (two) times a day. Dispense: 60 tablet; Refill: 3 12. Nausea Reviewed her emergency room note. Refilled Zofran. Continue with current care regimen. Stay well hydrated. Call the office if the symptoms worsen or fail to improve. - ondansetron (Zofran ODT) 4 MG disintegrating tablet; Place 1-2 tablets (4-8 mg total) under the tongue every 8 (eight) hours as needed for nausea / vomiting. Dispense: 30 tablet; Refill: 5 13. Immunization due Administered Prevnar 20 shot in the clinic today. - pneumococcal 20-valent vaccine (PREVNAR 20) syringe Screening Tools Assessment/Documentation: Falls Screen: (Positive response to any questions place patient at increased risk of falls) Fall Screening Score: negative Plan: No intervention needed-No fall risk found. Depression Screen: (PHQ9 > 10 Likely Major Depression, 5-9 = Mild depression, 10-14= Moderate depression, 15-19 Moderately severe depression, > 20 =severe depression) PHQ2 = PHQ9= Plan: Depression screen is negative. Functional Assessment: (Patients who need assistance or are dependent should be assessed for any home assistance needs) ADL/IADL screen: Independent Plan: No current risk or needs. CognitiveScreen: (Minicognitive >11 screening normal , MMSE >than 27 is normal (24 if only grade or middle school), 19-26 indicates mild cognitive impairment and rescreening in 6 months to one year is indicated if the index of suspicion is low. A Score of 12-19 indicates mild to moderate dementia and treatment should be initiated along with referral for further testing if indicated. Scores less than 12 indicate moderate to severe dementia and treatment should be continued or increased. Consideration for home care or SNF care should be undertaken) Minicog total = MMSE total = Plan: Normal Cognition no needs identified. Advance Directives Discussion: (If patient does not have any advance directives on file, the advance directives should be printed out and given to patient as part of the visit summary) Advance Directives Booklet Advance Directives have been reviewed with Ibis Tay and/or family: Discussed advance directives with patient and Form given if needed 5-10 Year Screening Plan [place] Score =The CVD Risk score (D'Agostino, et al., 2008) failed to calculate for the following reasons: The patient has a prior ID, stroke, CHF, or peripheral vascular disease diagnosis CAD risk factors: Smoking, Hypertension and Age (Men>/=45, Women>/=55) Sexual Risk =not currently sexually active Lifestyle risk = smoking Health Maintenance Topic Date Due - Colon Cancer Screening Never done - DXA SCAN 01/17/2019 - SHINGLES VACCINES (2 of 2) 05/14/2020 - TOBACCO CESSATION SCREENING (12+) Never done - FALLS RISK SCREENING Never done - BREAST CANCER SCREENING 12/31/2021 - MEDICARE SUBSEQUENT WELLNESS (YEAR 3 +) 01/27/2022 - COVID-19 VACCINE (5 - Booster for Pfizer series) 02/16/2022 - INFLUENZA VACCINE (1) 03/18/2022 - DTAP/TDAP/TD VACCINES (4 - Td or Tdap) 12/29/2026 - PNEUMOCOCCAL 65+ YRS Completed - HEPATITIS C SCREENING Completed Goals Addressed None Attestation: The patient indicates understanding of these issues and agrees with the plan. I reviewed the patient's medical information and medical history. I have reviewed the past medical, family, and social history sections including the medications and allergies listed in the above medical record. Signature: I, David Tai, am scribing for and in the presence of Mike Ann Jr., MD. . I have read and agree with the documentation that has been completed regarding this visit and attest, that it is an accurate record of both my words and actions during the visit. . MIKE ANN JR [facility] 2022-03-09 08:40:00 [facility] CHIEF COMPLAINT No chief complaint on file. SUBJECTIVE Ibis Tay is a 67 y.o. female who presents for follow-up of No chief complaint on file. with diagnosis of: 1. Problem List Items Addressed This Visit Cervical radiculopathy - Primary Failed back syndrome Lumbar spondylosis Patient underwent LESI on 12-19-20She notes 50% improvement but continues with low back and joint pain. She notes that she has prior cervical WAQAR with >50% relief lasting 8-10mos. She feels the pain has recurred and would like to proceed with repeat cervical WAQAR She has tried OTC NSAIDs, daily home exercises/stretching she learned through PT without improvement Since patient's last encounter patient reports persistent chronic pain requiring ongoing treatment. Describes the pain as Sharp and Stabbing Patient rates their pain score 7/10 on average and is tolerable. Patient feels that the medication regimen does help maintain the function, mobility, activity tolerance and pain levels at a tolerable level. Patient states that medications changes or injections are not necessary today Patient states that the pain symptoms are stable. Patient denies new or changing pain complaints. Patient notes that the pain is worse with general activity and improved with rest. Patient 's current pain medication regimen has been reviewed with the patient and they note that the medication regimen is effective and reports that they are taking the medication regimen as prescribed. Patient denies running out of medication early or having an excess supply of medications. Other concerns: no new concerns at this time Patient's current pain medications has been reviewed and includes: DRUG FREQ Percocet qid qid Patient's most recent interventional procedures: PROCEDURE DATE % Relief & Duration Interlaminar Lumbar Epidural Steroid Injection L3 - L4 12/19/20 ROS Constitutional: denies dizziness, sedation, or somnolence Psychological: denies altered mentation or euphoria GI: denies significant constipation or diarrhea Musc: denies acute change in numbness, weakness, or tingling of extemities MEDICATIONS Current Outpatient Medications Medication Sig Dispense Refill - ALPRAZolam (Xanax) 0.5 MG tablet Take 1 tablet (0.5 mg total) by mouth 2 (two) times a day as needed for anxiety. Max Daily Amount: 1 mg 60 tablet 0 - calcium-vitamin D 500 mg(1,250mg) -200 unit per tablet Take 1 tablet by mouth 2 (two) times a day with meals. 180 tablet 2 - cetirizine (ZyrTEC) 10 MG tablet Take 1 tablet (10 mg total) by mouth once daily. 90 tablet 1 - cholecalciferol (VITAMIN D3) 125 mcg (5,000 unit) capsule Take 1 capsule (5,000 Units total) by mouth once daily. 100 capsule 3 - diaper,brief,adult,disposable Misc 1 application by Miscellaneous route 2 (two) times a day. 96 each 5 - fluticasone propionate (Flovent Diskus) 250 mcg/actuation Disk with Device Inhale 1 puff into the lungs 2 (two) times a day. 60 each 3 - food supplemt, lactose-reduced (ENSURE) Liquid Drink 2 bottles per day. Patient requests strawberry. 34934 mL PRN - hydroCHLOROthiazide (HYDRODIURIL) 25 MG tablet TAKE 1/2 TABLET BY MOUTH DAILY 15 tablet 1 - ibandronate (Boniva) 150 mg tablet Take 1 tablet (150 mg total) by mouth every 30 (thirty) days. Take sitting upright once mobnthly on empty stomach with glass of water , dont lay down or eat for full hour 3 tablet 4 - ipratropium-albuteroL (DUO-NEB) 0.5-2.5 mg/3 mL nebulizer NEBULIZE 1 VIAL (3 ML) BY MOUTH FOUR TIMES A DAY 360 mL 1 - lisinopriL (PRINIVIL,ZESTRIL) 5 MG tablet TAKE ONE TABLET BY MOUTH DAILY 30 tablet 1 - melatonin 3 mg Tablet Take 1 tablet (3 mg total) by mouth daily every night. 30 tablet 0 - misc[place] [facility] [place] for use for breathing problems for duo-nebs treatments 1 each 0 - miscellaneous medical [place] [facility] [place], tubing and filter for nebulizer machine to be changed every 3 months. 1 each 3 - naloxone 2 mg/actuation [place], Non-Aerosol 2 mg by Nasal route as needed. 1-2 daily PRN. Proceed to ER for evaluation immediately following use. 4 each 1 - omeprazole (PriLOSEC) 40 MG capsule TAKE ONE CAPSULE BY MOUTH DAILY 30 capsule 7 - ondansetron (Zofran ODT) [address] 1-2 tablets (4-8 mg total) under the tongue every 8 (eight) hours as needed for nausea / vomiting. 20 tablet 1 - oxyCODONE-acetaminophen (Percocet) 10-325 mg tablet Take 1 tablet by mouth every 6 (six) hours as needed for pain. To Last 30days. No early refills Max Daily Amount: 4 tablets 120 tablet 0 - potassium chloride (KLOR-CON) 10 MEQ CR tablet TAKE TWO TABLETS BY MOUTH TWICE A DAY 120 tablet 1 - prazosin (MINIPRESS) 2 MG capsule TAKE THREE CAPSULES BY MOUTH EVERY EVENING 270 capsule 1 - ProAir HFA 90 mcg/actuation inhaler INHALE TWO PUFFS BY MOUTH FOUR TIMES A DAY 8.5 g 11 - sertraline (ZOLOFT) 25 MG tablet Take 1 tablet (25 mg total) by mouth once daily. 30 tablet 0 - tiZANidine (ZANAFLEX) 4 MG tablet Take 1 tablet (4 mg total) by mouth 2 (two) times a day. 60 tablet 3 - umeclidinium-vilanteroL (Anoro Ellipta) 62.5-25 mcg/actuation Disk with Device Inhale 1 puff into the lungs once daily. 1 each 6 No current facility-administered medications for this visit. ALLERGIES Allergies Allergen Reactions - Penicillins Anaphylaxis - Gabapentin Other (See Comments) severe fatigue - Sulfa (Sulfonamide Antibiotics) Other (See Comments) Blisters inside and outside of mouth. - Wellbutrin [Bupropion Hcl] Other (See Comments) Body numbness and tingling - Diazepam Nausea And Vomiting - Varenicline PHYSICAL EXAM Vital Signs: BP (!) 182/74 (BP Location: Right arm) Pulse 97 Wt 54.4 kg (120 lb) BMI 21.26 kg/m Constitutional: Well nourished, well groomed, NAD. CARDIAC: Regular Rate LUNGS: Breathing nonlabored, no wheezing Neurologic: Alert & oriented x 3, normal gait, no focal deficits noted. Psychiatric: Affect normal, judgment normal, mood normal. Other Affected BA/OS: Chronic Opiate Therapy Risk Mitigation: Risk Assessment Evaluation Assessment Morphine Equivalents 60 Date of Last UDS SOAPP-R Score Behavior Risks none Physical Risks none H/o Illegal Substance Abuse denies H/o Alcohol abuse denies OPIATE RISK ASSESSMENT: LOW (Routine medication monitoring, Annual UDS) Assessment is based treating physicians overall evaluation of multiple factors including MME load, age, comorbidity, medication profile, and social risk factors. The risks/benefits of chronic opiate therapy was discussed with patient including failure of therapy, psychological addiction, physiological dependence, and risk withdrawal syndrome. Warning symptoms of potential opiate overuse/overdose were discussed including sedation, somnolence, and altered mentation were reviewed and I counseled patient these symptoms can occur even when patient have been on a stable dose and also can happen despite following physicians instructions. Alternative therapies were discussed including: non-opiate medications, interventional pain procedures, and Cognitive Behavioral Therapy. After discussing these alternatives with the patient, the patient has opted to decline these alternatives at this time. Patient has tried and failed more conservative measures and were either ineffective or intolerant. In my medical opinion non-opiate therapy is not appropriate to address the patient's medical condition at this time and will continue chronic opiate therapy after having addressed efficacy, adverse side effects, and safety of therapy with the patient. The patient indicates understanding of these issues and agrees with the plan. LIFESTYLE COUNSELING: Time was spent discussing the importance of a home exercise program to promote strength, activity endurance and pain tolerance. Patient was also counseled on avoidance of tobacco products for general health as well as improved chronic pain control. ASSESSMENT AND PLAN Problem List Items Addressed This Visit Cervical radiculopathy - Primary Failed back syndrome Lumbar spondylosis PLAN: 1. Patient is stable functional and meeting the goals of chronic opiate therapy without adverse side effects, misuse, or safety concerns. PDMP was reviewed without redflags or other concerns. 2. I counseled her on the importance of maintaining her activity and low-impact exercise such as walking on a daily basis to promote good health and improve chronic pain management. 3. She did very well with recent Cervical WAQAR 4. PAtient notes that she has increasing right knee pain. She has had prior RIGHT TKA. She notes she also has had prior RIGHT genicular RFA for her knee pain which was very effective 3yrs ago. She requests repeat RFA. I will schedule her for repeat genicular nerve RFA for the right knee 5. I will continue her percocet to 10/325 qid and f/u in 4 weeks The patient indicates understanding of these issues and agrees with the plan. I reviewed the patient's medical information and medical history. I have reviewed the past medical, family, and social history sections including the medications and allergies listed in the above medical record. Patient was counseled that in my practice I do not prescribe chronic opiate therapy in the presence of ongoing illegal substance use. Patient was also counseled that drug screen testing is medically necessary from time to time to help stratify risks associated with chronic opiate therapy by assessing compliance with prescribed medications as well as to identify the presence of illegal substances. Consent for drug screen testing is required for continuation of chronic opiate therapy. Electronically signed by: Isaías Cardenas MD, 03/09/2022 9:07 AM [facility] CHIEF COMPLAINT No chief complaint on file. SUBJECTIVE Ibis Tay is a 67 y.o. female who presents for follow-up of No chief complaint on file. with diagnosis of: 1. Problem List Items Addressed This Visit Cervical radiculopathy - Primary Failed back syndrome Lumbar spondylosis Patient underwent LESI on 12-19-20She notes 50% improvement but continues with low back and joint pain. She notes that she has prior cervical WAQAR with >50% relief lasting 8-10mos. She feels the pain has recurred and would like to proceed with repeat cervical WAQAR She has tried OTC NSAIDs, daily home exercises/stretching she learned through PT without improvement Since patient's last encounter patient reports persistent chronic pain requiring ongoing treatment. Describes the pain as Sharp and Stabbing Patient rates their pain score 7/10 on average and is tolerable. Patient feels that the medication regimen does help maintain the function, mobility, activity tolerance and pain levels at a tolerable level. Patient states that medications changes or injections are not necessary today Patient states that the pain symptoms are stable. Patient denies new or changing pain complaints. Patient notes that the pain is worse with general activity and improved with rest. Patient 's current pain medication regimen has been reviewed with the patient and they note that the medication regimen is effective and reports that they are taking the medication regimen as prescribed. Patient denies running out of medication early or having an excess supply of medications. Other concerns: no new concerns at this time Patient's current pain medications has been reviewed and includes: DRUG FREQ Percocet qid qid Patient's most recent interventional procedures: PROCEDURE DATE % Relief & Duration Interlaminar Lumbar Epidural Steroid Injection L3 - L4 12/19/20 ROS Constitutional: denies dizziness, sedation, or somnolence Psychological: denies altered mentation or euphoria GI: denies significant constipation or diarrhea Musc: denies acute change in numbness, weakness, or tingling of extemities MEDICATIONS Current Outpatient Medications Medication Sig Dispense Refill - ALPRAZolam (Xanax) 0.5 MG tablet Take 1 tablet (0.5 mg total) by mouth 2 (two) times a day as needed for anxiety. Max Daily Amount: 1 mg 60 tablet 0 - calcium-vitamin D 500 mg(1,250mg) -200 unit per tablet Take 1 tablet by mouth 2 (two) times a day with meals. 180 tablet 2 - cetirizine (ZyrTEC) 10 MG tablet Take 1 tablet (10 mg total) by mouth once daily. 90 tablet 1 - cholecalciferol (VITAMIN D3) 125 mcg (5,000 unit) capsule Take 1 capsule (5,000 Units total) by mouth once daily. 100 capsule 3 - diaper,brief,adult,disposable Misc 1 application by Miscellaneous route 2 (two) times a day. 96 each 5 - fluticasone propionate (Flovent Diskus) 250 mcg/actuation Disk with Device Inhale 1 puff into the lungs 2 (two) times a day. 60 each 3 - food supplemt, lactose-reduced (ENSURE) Liquid Drink 2 bottles per day. Patient requests strawberry. 18577 mL PRN - hydroCHLOROthiazide (HYDRODIURIL) 25 MG tablet TAKE 1/2 TABLET BY MOUTH DAILY 15 tablet 1 - ibandronate (Boniva) 150 mg tablet Take 1 tablet (150 mg total) by mouth every 30 (thirty) days. Take sitting upright once mobnthly on empty stomach with glass of water , dont lay down or eat for full hour 3 tablet 4 - ipratropium-albuteroL (DUO-NEB) 0.5-2.5 mg/3 mL nebulizer NEBULIZE 1 VIAL (3 ML) BY MOUTH FOUR TIMES A DAY 360 mL 1 - lisinopriL (PRINIVIL,ZESTRIL) 5 MG tablet TAKE ONE TABLET BY MOUTH DAILY 30 tablet 1 - melatonin 3 mg Tablet Take 1 tablet (3 mg total) by mouth daily every night. 30 tablet 0 - [place] [facility] [place] for use for breathing problems for duo-nebs treatments 1 each 0 - misc[place] medical [place] [facility] [place], tubing and filter for nebulizer machine to be changed every 3 months. 1 each 3 - naloxone 2 mg/actuation [place], Non-Aerosol 2 mg by Nasal route as needed. 1-2 daily PRN. Proceed to ER for evaluation immediately following use. 4 each 1 - omeprazole (PriLOSEC) 40 MG capsule TAKE ONE CAPSULE BY MOUTH DAILY 30 capsule 7 - ondansetron (Zofran ODT) [address] 1-2 tablets (4-8 mg total) under the tongue every 8 (eight) hours as needed for nausea / vomiting. 20 tablet 1 - oxyCODONE-acetaminophen (Percocet) 10-325 mg tablet Take 1 tablet by mouth every 6 (six) hours as needed for pain. To Last 30days. No early refills Max Daily Amount: 4 tablets 120 tablet 0 - potassium chloride (KLOR-CON) 10 MEQ CR tablet TAKE TWO TABLETS BY MOUTH TWICE A DAY 120 tablet 1 - prazosin (MINIPRESS) 2 MG capsule TAKE THREE CAPSULES BY MOUTH EVERY EVENING 270 capsule 1 - ProAir HFA 90 mcg/actuation inhaler INHALE TWO PUFFS BY MOUTH FOUR TIMES A DAY 8.5 g 11 - sertraline (ZOLOFT) 25 MG tablet Take 1 tablet (25 mg total) by mouth once daily. 30 tablet 0 - tiZANidine (ZANAFLEX) 4 MG tablet Take 1 tablet (4 mg total) by mouth 2 (two) times a day. 60 tablet 3 - umeclidinium-vilanteroL (Anoro Ellipta) 62.5-25 mcg/actuation Disk with Device Inhale 1 puff into the lungs once daily. 1 each 6 No current facility-administered medications for this visit. ALLERGIES Allergies Allergen Reactions - Penicillins Anaphylaxis - Gabapentin Other (See Comments) severe fatigue - Sulfa (Sulfonamide Antibiotics) Other (See Comments) Blisters inside and outside of mouth. - Wellbutrin [Bupropion Hcl] Other (See Comments) Body numbness and tingling - Diazepam Nausea And Vomiting - Varenicline PHYSICAL EXAM Vital Signs: BP (!) 182/74 (BP Location: Right arm) Pulse 97 Wt 54.4 kg (120 lb) BMI 21.26 kg/m Constitutional: Well nourished, well groomed, NAD. CARDIAC: Regular Rate LUNGS: Breathing nonlabored, no wheezing Neurologic: Alert & oriented x 3, normal gait, no focal deficits noted. Psychiatric: Affect normal, judgment normal, mood normal. Other Affected BA/OS: Chronic Opiate Therapy Risk Mitigation: Risk Assessment Evaluation Assessment Morphine Equivalents 60 Date of Last UDS SOAPP-R Score Behavior Risks none Physical Risks none H/o Illegal Substance Abuse denies H/o Alcohol abuse denies OPIATE RISK ASSESSMENT: LOW (Routine medication monitoring, Annual UDS) Assessment is based treating physicians overall evaluation of multiple factors including MME load, age, comorbidity, medication profile, and social risk factors. The risks/benefits of chronic opiate therapy was discussed with patient including failure of therapy, psychological addiction, physiological dependence, and risk withdrawal syndrome. Warning symptoms of potential opiate overuse/overdose were discussed including sedation, somnolence, and altered mentation were reviewed and I counseled patient these symptoms can occur even when patient have been on a stable dose and also can happen despite following physicians instructions. Alternative therapies were discussed including: non-opiate medications, interventional pain procedures, and Cognitive Behavioral Therapy. After discussing these alternatives with the patient, the patient has opted to decline these alternatives at this time. Patient has tried and failed more conservative measures and were either ineffective or intolerant. In my medical opinion non-opiate therapy is not appropriate to address the patient's medical condition at this time and will continue chronic opiate therapy after having addressed efficacy, adverse side effects, and safety of therapy with the patient. The patient indicates understanding of these issues and agrees with the plan. LIFESTYLE COUNSELING: Time was spent discussing the importance of a home exercise program to promote strength, activity endurance and pain tolerance. Patient was also counseled on avoidance of tobacco products for general health as well as improved chronic pain control. ASSESSMENT AND PLAN Problem List Items Addressed This Visit Cervical radiculopathy - Primary Failed back syndrome Lumbar spondylosis PLAN: 6. Patient is stable functional and meeting the goals of chronic opiate therapy without adverse side effects, misuse, or safety concerns. PDMP was reviewed without redflags or other concerns. 7. I counseled her on the importance of maintaining her activity and low-impact exercise such as walking on a daily basis to promote good health and improve chronic pain management. 8. She did very well with recent Cervical WAQAR 9. I will continue her percocet to 10/325 qid and f/u in 4 weeks The patient indicates understanding of these issues and agrees with the plan. I reviewed the patient's medical information and medical history. I have reviewed the past medical, family, and social history sections including the medications and allergies listed in the above medical record. Patient was counseled that in my practice I do not prescribe chronic opiate therapy in the presence of ongoing illegal substance use. Patient was also counseled that drug screen testing is medically necessary from time to time to help stratify risks associated with chronic opiate therapy by assessing compliance with prescribed medications as well as to identify the presence of illegal substances. Consent for drug screen testing is required for continuation of chronic opiate therapy. Electronically signed by: Isaías Cardenas MD, 03/09/2022 9:08 AM [facility]AS CARDENA[facility] 2022-02-14 17:57:18 [facility] eMERGENCY dEPARTMENT eNCOUnter Pt Name: Ibis Tay Birthdate 1955 Date of evaluation: 02/14/2022 Provider: BYRON DERAS DO CHIEF COMPLAINT Chief Complaint Patient presents with - Chest Pain pt arrives via ems with report of pt being shocked yesterday but an air conditioning unit. pt states when she was shocked, she blacked out and lost control of her urine.when patient woke up she started vomiting and has been having chest pain and vomiting ever since. pt states she is also having back pain. pt states she also stopped her xanx cold turkey. pt is very anxious, pty is hyperverbal and hyperventilating HISTORY OF PRESENT ILLNESS (Location/Symptom, Timing/Onset, Context/Setting, Quality, Duration, Modifying Factors, Severity.) Ibis Tay is a 66 y.o. female who presents to the emergency department for evaluation regarding multiple symptoms. Patient states yesterday she was outside and I got to go some air conditioner and then it shocked me. Patient states it was a to 20 V circuit. She states that she lost consciousness during that time and also is incontinent of urine. She states since that time she has had some achy upper back discomfort as well as some diffuse chest discomfort. No shortness of breath, no cough or fevers. She also complains of multiple episodes of emesis with associated nausea. She states she quit her Xanax cold turkey and also talks about being on chronic pain medications and states she has a refill coming up in the near future as well. No palpitations. Nursing Notes were reviewed. REVIEW OF SYSTEMS (2-9 systems for level 4, 10 or more for level 5) Review of Systems Constitutional: Negative for chills and fever. HENT: Negative for ear pain and nosebleeds. Eyes: Negative for pain and visual disturbance. Respiratory: Negative for cough and shortness of breath. Cardiovascular: Negative for chest pain. Gastrointestinal: Positive for nausea and vomiting. Negative for abdominal pain. Genitourinary: Negative for dysuria and hematuria. Musculoskeletal: Negative for arthralgias and myalgias. Skin: Negative for color change. Neurological: Negative for syncope, weakness and headaches. All other systems reviewed and are negative. Except as noted above the remainder of the review of systems was reviewed and negative. PAST MEDICAL HISTORY Past Medical History: Diagnosis Date - Anxiety Takes Xanax - Arthritis - Breast mass 2013 rt axilla - Bronchitis - Bursitis Left hip - Cancer (HCC) left lung cancer, scheduled for left upper lobectomy at [facility] with Dr. Moore - Cervical radiculopathy sees Dr. Cardenas, gets cervical pain injections every 3 months, last done in - COPD (chronic obstructive pulmonary disease) ([facility]) - DDD (degenerative disc disease) - Depression dr. 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 pylori infection Hx of H pylori infection several months ago treated with medication, no current issues. - H/O pyloric stenosis - Hiatal hernia - HTN (hypertension) - Hypercholesteremia - Hyperlipidemia No current medications or issues. - OA (osteoarthritis) of knee - Oxygen desaturation at night 3.5 liter - Palpitations with anxiety - Peripheral vascular disease (HCC) 10/2020 abdominal pain-stricture liliac artery - Pneumonia 1994 resolved. - PONV (postoperative nausea and vomiting) - PTSD (post-traumatic stress disorder) son was murdered 8 years ago, followed by Dr. Milly Freire - Spinal stenosis cervical - Urinary incontinence - Wears dentures full set - Wears glasses SURGICAL HISTORY Past Surgical History: Procedure Laterality Date - ESOPHAGEAL DILATION 2012 approx. done with upper endoscopy - KNEE ARTHROPLASTY Right 2010 - LUMBAR FUSION 1995 - LUNG LOBECTOMY Left 10/11/2017 Upper - CO INTRODUCTION CATHETER AORTA Right 11/03/2020 Procedure: ABDOMINAL AORTOGRAM; Surgeon: Imelda Swan MD; Location: [facility]; Service: Vascular - CO TOTAL KNEE ARTHROPLASTY Right 05/28/2014 Procedure: REPLACEMENT TOTAL JOINT KNEE RIGHT / BETO ; Surgeon: Isaak Moncada MD; Location: [facility] OR; Service: Orthopedics - SPINE SURGERY lumbar fusion - TENDON RELEASE Right arm - TOTAL HIP ARTHROPLASTY Left 09/26/14 hip hem-iarthoplasty - TOTAL KNEE ARTHROPLASTY Left 11/23 - TUBAL LIGATION Bilateral - UPPER GASTROINTESTINAL ENDOSCOPY 2012 approx. diagnosed with H. Pylori and esophagus dilated. - UPPER GASTROINTESTINAL ENDOSCOPY CURRENT MEDICATIONS Previous Medications ALPRAZOLAM (XANAX) 0.5 MG TABLET Take 1 tablet (0.5 mg total) by mouth once nightly as needed for sleep. Max Daily Amount: 0.5 mg ALPRAZOLAM (XANAX) 1 MG TABLET TAKE 1/2 TABLET BY MOUTH FOUR TIMES A DAY NEEDED FOR FOR ANXIETY CALCIUM-VITAMIN D 500 MG(1,250MG) -200 UNIT PER TABLET Take 1 tablet by mouth 2 (two) times a day with meals. CETIRIZINE (ZYRTEC) 10 MG TABLET Take 1 tablet (10 mg total) by mouth once daily. CHOLECALCIFEROL (VITAMIN D3) 125 MCG (5,000 UNIT) CAPSULE Take 1 capsule (5,000 Units total) by mouth once daily. DIAPER,BRIEF,ADULT,DISPOSABLE MISC 1 application by Miscellaneous route 2 (two) times a day. FLUTICASONE PROPIONATE (FLOVENT DISKUS) 250 MCG/ACTUATION DISK WITH DEVICE Inhale 1 puff into the lungs 2 (two) times a day. FOOD SUPPLEMT, LACTOSE-REDUCED (ENSURE) LIQUID Drink 2 bottles per day. Patient requests strawberry. HYDROCHLOROTHIAZIDE (HYDRODIURIL) 25 MG TABLET TAKE 1/2 TABLET BY MOUTH DAILY IBANDRONATE (BONIVA) 150 MG TABLET Take 1 tablet (150 mg total) by mouth every 30 (thirty) days. Take sitting upright once mobnthly on empty stomach with glass of water , dont lay down or eat for full hour IPRATROPIUM-ALBUTEROL (DUO-NEB) 0.5-2.5 MG/3 ML NEBULIZER INHALE 3 MILLILITERS INTO THE LUNGS FOUR TIMES A DAY LISINOPRIL (PRINIVIL,ZESTRIL) 5 MG TABLET TAKE ONE TABLET BY MOUTH DAILY MELATONIN 3 MG TABLET Take 1 tablet (3 mg total) by mouth daily every night. MISCELLANEOUS MEDICAL SUPPLY [facility] [place] Needs nebulizer machine for use for breathing problems for duo-nebs treatments MISCELLANEOUS MEDICAL SUPPLY [facility] [place] Needs mask, tubing and filter for nebulizer machine to be changed every 3 months. NALOXONE 2 MG/ACTUATION SPRAY, NON-AEROSOL 2 mg by Nasal route as needed. 1-2 daily PRN. Proceed to ER for evaluation immediately following use. OMEPRAZOLE (PRILOSEC) 40 MG CAPSULE TAKE ONE CAPSULE BY MOUTH DAILY ONDANSETRON (ZOFRAN ODT) [address] TABLE[address] 1-2 tablets (4-8 mg total) under the tongue every 8 (eight) hours as needed for nausea / vomiting. OXYCODONE-ACETAMINOPHEN (PERCOCET) 10-325 MG TABLET Take 1 tablet by mouth every 6 (six) hours as needed for pain. To Last 30days. No early refills Max Daily Amount: 4 tablets POTASSIUM CHLORIDE (KLOR-CON) 10 MEQ CR TABLET TAKE TWO TABLETS BY MOUTH TWICE A DAY PRAZOSIN (MINIPRESS) 2 MG CAPSULE TAKE THREE CAPSULES BY MOUTH EVERY EVENING PROAIR HFA 90 MCG/ACTUATION INHALER INHALE TWO PUFFS BY MOUTH FOUR TIMES A DAY TIZANIDINE (ZANAFLEX) 4 MG TABLET Take 1 tablet (4 mg total) by mouth 2 (two) times a day. UMECLIDINIUM-VILANTEROL (ANORO ELLIPTA) 62.5-25 MCG/ACTUATION DISK WITH DEVICE Inhale 1 puff into the lungs once daily. ALLERGIES Penicillins, Gabapentin, Sulfa (sulfonamide antibiotics), Wellbutrin [bupropion hcl], Diazepam, and Varenicline FAMILY HISTORY Family History Problem Relation Age of Onset - Other Other Hx: Yes Dx: Diabetes Fam Mem: Family h/o - Drug abuse Other - Other Other Hx: Yes Dx: Hypertension Fam Mem: Mother - Drug abuse Other - Hypertension Mother - Heart disease Mother - Diabetes Mother - No Known Problem Father - Other Sister - Cancer Sister - Other Other Hx: Yes Dx: Heart disease Fam Mem: Mother - Diabetes Maternal Grandmother SOCIAL HISTORY reports that she has been smoking cigarettes and vaporizer. She has a 88.00 pack-year smoking history. She has never used smokeless tobacco. She reports current alcohol use. She reports that she does not use drugs. PHYSICAL EXAM (up to 7 for level 4, 8 or more for level 5) Vitals: 02/14/22 1751 02/14/22 1755 BP: (!) 166/85 Pulse: 105 Resp: 25 Temp: 36.8 C (98.2 F) TempSrc: Oral SpO2: 98% Weight: 55.3 kg (122 lb) Height: 5' 3 (1.6 m) Physical Exam Vitals and nursing note reviewed. Constitutional: General: She is not in acute distress. Appearance: She is well-developed. HENT: Head: Normocephalic and atraumatic. Right Ear: External ear normal. Left Ear: External ear normal. Mouth/Throat: Pharynx: No oropharyngeal exudate. Eyes: Conjunctiva/sclera: Conjunctivae normal. Pupils: Pupils are equal, round, and reactive to light. Cardiovascular: Rate and Rhythm: Regular rhythm. Tachycardia present. Heart sounds: Normal heart sounds. Pulmonary: Effort: Pulmonary effort is normal. No respiratory distress. Breath sounds: Normal breath sounds. No wheezing. Abdominal: General: Bowel sounds are normal. There is no distension. Palpations: Abdomen is soft. Tenderness: There is no abdominal tenderness. Musculoskeletal: General: No tenderness. Normal range of motion. Cervical back: Normal range of motion and neck supple. Skin: General: Skin is warm and dry. Neurological: Mental Status: She is alert and oriented to person, place, and time. Psychiatric: Thought Content: Thought content normal. Comments: Anxious DIAGNOSTIC RESULTS EKG: All EKG's are interpreted by the Emergency Department Physician who either signs or Co-signs this chart in the absence of a contact center associate. EKG at 1808, normal sinus rhythm with a rate of 92 bpm, normal axis, no QT prolongation, no evidence of blocks or hypertrophy, no acute ST or T changes. RADIOLOGY: Interpretation per the Radiologist below, if available at the time of this note: No orders to display LABS: ED Lab Results Procedure Component Value Ref Range Date/Time CBC auto differential [[id number]] Collected: 02/14/221802 Order Status: Completed Specimen: Blood Updated: 02/14/221824 WBC 6.2 4.0 - 12.0 k/ul RBC 4.99 3.50 - 5.30 m/ul HEMOGLOBIN 14.4 12.0 - 16.0 gm/dl Hematocrit 39.9 36.0 - 48.0 % MCV 80 80 - 100 fl MCH 28.9 26.0 - 34.0 pg MCHC 36.1 30.0 - 37.0 gm/dl RDW 13.3 11.5 - 15.0 % Platelet Count 227 140 - 440 k/ul MPV 9.6 8.5 - 12.5 fl Neutrophils % 65 % Immature Granulocytes % 0 % Lymphs % 29 % Monocytes % 4 % Eosinophils Percent 1 % Basophils Percent 0 % Neutrophils Abs 4.0 1.5 - 8.0 k/ul Immature Granulocytes Abs 0.0 0.0 - 0.1 k/ul Lymphs Abs 1.8 1.0 - 4.5 k/ul Monocytes Abs 0.2 0.1 - 1.1 k/ul Eosinophils Absolute 0.1 0.0 - 0.4 k/ul Basophils Absolute 0.0 0.0 - 0.1 k/ul Comprehensive metabolic panel [[id number]] (Abnormal) Collected: 02/14/221802 Order Status: Completed Specimen: Blood Updated: 02/14/22 191 Glucose 117 70 - 100 mg/dl BUN 12 6 - 24 mg/dl Creatinine 0.72 0.50 - 1.10 mg/dl Sodium 140 135 - 145 mmol/L Potassium 2.6 3.7 - 5.1 mmol/L Chloride 108 96 - 110 mmol/L CO2 18.0 22.0 - 32.0 mmol/L Anion Gap 17 <=20 mmol/L Calcium 9.3 8.5 - 10.5 mg/dl Total Protein 6.9 6.0 - 8.4 gm/dl Albumin 4.1 3.5 - 5.0 gm/dl Globulin 2.8 2.0 - 4.4 gm/dl AST 13 10 - 40 u/l Alkaline Phosphatase 78 33 - 138 u/l Total Bilirubin 0.8 0.0 - 1.5 mg/dl ALT 13 12 - 78 u/l GFR Estimate >90 >=90 mL/min/1.73 m2 LIPASE [[id number]] Collected: 02/14/221802 Order Status: Completed Specimen: Blood Updated: 02/14/221912 Lipase 145 73 - 393 u/l High Sensitivity Troponin I [[id number]] Collected: 02/14/221802 Order Status: Completed Specimen: Blood Updated: 02/14/221844 High Sensitivity Troponin I 7.2 <=52.0 Magnesium [[id number]] Collected: 02/14/221802 Order Status: Completed Specimen: Blood Updated: 02/14/221912 Magnesium 2.0 1.8 - 2.6 mg/dl Ethanol [[id number]] Collected: 02/14/221802 Order Status: Completed Specimen: Blood Updated: 02/14/22 185 Alcohol, Ethyl (B) <10 <=10 mg/dl All other labs were within normal range or not returned as of this dictation. EMERGENCY DEPARTMENT COURSE and DIFFERENTIAL DIAGNOSIS / MDM: Vitals: ) Vitals: 02/14/22 1751 02/14/22 175 BP: (!) 166/85 Pulse: 105 Resp: 25 Temp: 36.8 C (98.2 F) TempSrc: Oral SpO2: 98% Weight: 55.3 kg (122 lb) Height: 5' 3 (1.6 m) Differential Diagnosis includes but is not limited to: Benzodiazepine withdrawal, anxiety, cardiac arrhythmia, intoxication Pulse Oxymetry Interpretation: Normal and without hypoxia as interpretted by sd Rhythm strip interpretation: Sinus tachycardia Clinical Course: Patient was evaluated with the following PPE: Surgical Mask, gloves. 66-year-old female who presents with chronic back pain, anxiety, and multiple other complaints but states she was electrocuted by [address] from her air conditioner yesterday. EKG shows no acute changes, labs only significant for a mild hypokalemia. Patient does have potassium supplements at home and will start taking some of these as well. The remainder of her labs are unremarkable. Patient will be discharged. Patient also later complaining of some chronic pain and also anxiety, was given 1 of Ativan p.o. Patient stated multiple times that she does not take more medication than supposed to and also mention she has a pain contract. Patient will follow-up as an outpatient. Administered Meds Date/Time Order Dose Route Action Comments 02/14/2022 1835 sodium chloride 0.9% (NORMAL SALINE) bolus 1,000 mL 1,000 mL IntraVENous New Bag Blood pressure screening Pre-hypertension/hypertension: The patient has been informed that they may have pre-hypertension or hypertension based on a blood pressure reading in the emergency department. I recommend that the patient call the primary care provider listed on their discharge instructions or a physician of their choice this week to arrange follow-up for further motion of possible pre-hypertension or hypertension FINAL IMPRESSION 1. Chronic back pain, unspecified back location, unspecified back pain laterality 2. Anxiety DISPOSITION Discharge [1] 02/14/2022 7:29 PM PATIENT REFERRED TO: Mike Ann Jr., MD [address] [facility] [address] [facility] [id number] DISCHARGE MEDICATIONS: New Prescriptions No medications on file (Please note that portions of this note were completed with a voice recognition program. Efforts were made to edit the dictations but occasionally words are mis-transcribed.) DO Byron PHILLIPS DO 02/14/[address] [facility] 2022-02-09 10:40:00 [facility] CHIEF COMPLAINT No chief complaint on file. SUBJECTIVE Ibis Tay is a 66 y.o. female who presents for follow-up of No chief complaint on file. with diagnosis of: 1. Problem List Items Addressed This Visit Cervical radiculopathy - Primary Failed back syndrome Lumbar spondylosis Patient underwent LESI on 6-4-21She notes 50% improvement but continues with low back and joint pain. She notes that she has prior cervical WAAQR with >50% relief lasting 8-10mos. She feels the pain has recurred and would like to proceed with repeat cervical WAQAR She has tried OTC NSAIDs, daily home exercises/stretching she learned through PT without improvement Since patient's last encounter patient reports persistent chronic pain requiring ongoing treatment. Describes the pain as Sharp and Stabbing Patient rates their pain score 7/10 on average and is tolerable. Patient feels that the medication regimen does help maintain the function, mobility, activity tolerance and pain levels at a tolerable level. Patient states that medications changes or injections are not necessary today Patient states that the pain symptoms are stable. Patient denies new or changing pain complaints. Patient notes that the pain is worse with general activity and improved with rest. Patient 's current pain medication regimen has been reviewed with the patient and they note that the medication regimen is effective and reports that they are taking the medication regimen as prescribed. Patient denies running out of medication early or having an excess supply of medications. Other concerns: no new concerns at this time Patient's current pain medications has been reviewed and includes: DRUG FREQ Percocet qid qid Patient's most recent interventional procedures: PROCEDURE DATE % Relief & Duration Interlaminar Lumbar Epidural Steroid Injection L3 - L4 12/19/20 ROS Constitutional: denies dizziness, sedation, or somnolence Psychological: denies altered mentation or euphoria GI: denies significant constipation or diarrhea Musc: denies acute change in numbness, weakness, or tingling of extemities MEDICATIONS Current Outpatient Medications Medication Sig Dispense Refill - ALPRAZolam (Xanax) 0.5 MG tablet Take 1 tablet (0.5 mg total) by mouth once nightly as needed for sleep. Max Daily Amount: 0.5 mg 60 tablet 0 - ALPRAZolam (XANAX) 1 MG tablet TAKE 1/2 TABLET BY MOUTH FOUR TIMES A DAY NEEDED FOR FOR ANXIETY 60 tablet 0 - calcium-vitamin D 500 mg(1,250mg) -200 unit per tablet Take 1 tablet by mouth 2 (two) times a day with meals. 180 tablet 2 - cetirizine (ZyrTEC) 10 MG tablet Take 1 tablet (10 mg total) by mouth once daily. 90 tablet 1 - cholecalciferol (VITAMIN D3) 125 mcg (5,000 unit) capsule Take 1 capsule (5,000 Units total) by mouth once daily. 100 capsule 3 - diaper,brief,adult,disposable Misc 1 application by Miscellaneous route 2 (two) times a day. 96 each 5 - fluticasone propionate (Flovent Diskus) 250 mcg/actuation Disk with Device Inhale 1 puff into the lungs 2 (two) times a day. 60 each 3 - food supplemt, lactose-reduced (ENSURE) Liquid Drink 2 bottles per day. Patient requests strawberry. 88123 mL PRN - hydroCHLOROthiazide (HYDRODIURIL) 25 MG tablet TAKE 1/2 TABLET BY MOUTH DAILY 15 tablet 1 - ibandronate (Boniva) 150 mg tablet Take 1 tablet (150 mg total) by mouth every 30 (thirty) days. Take sitting upright once mobnthly on empty stomach with glass of water , dont lay down or eat for full hour 3 tablet 4 - ipratropium-albuteroL (DUO-NEB) 0.5-2.5 mg/3 mL nebulizer INHALE 3 MILLILITERS INTO THE LUNGS FOUR TIMES A DAY 360 mL 1 - lisinopriL (PRINIVIL,ZESTRIL) 5 MG tablet TAKE ONE TABLET BY MOUTH DAILY 30 tablet 1 - melatonin 3 mg Tablet Take 1 tablet (3 mg total) by mouth daily every night. 30 tablet 0 - [place] [facility] [place] for use for breathing problems for duo-nebs treatments 1 each 0 - misc[place] [facility] [place], tubing and filter for nebulizer machine to be changed every 3 months. 1 each 3 - naloxone 2 mg/actuation [place], Non-Aerosol 2 mg by Nasal route as needed. 1-2 daily PRN. Proceed to ER for evaluation immediately following use. 4 each 1 - omeprazole (PriLOSEC) 40 MG capsule TAKE ONE CAPSULE BY MOUTH DAILY 30 capsule 7 - ondansetron (Zofran ODT) [address] 1-2 tablets (4-8 mg total) under the tongue every 8 (eight) hours as needed for nausea / vomiting. 20 tablet 1 - oxyCODONE-acetaminophen (Percocet) 10-325 mg tablet Take 1 tablet by mouth every 6 (six) hours as needed for pain. To Last 30days. No early refills Max Daily Amount: 4 tablets 120 tablet 0 - potassium chloride (KLOR-CON) 10 MEQ CR tablet TAKE TWO TABLETS BY MOUTH TWICE A DAY 120 tablet 1 - prazosin (MINIPRESS) 2 MG capsule TAKE THREE CAPSULES BY MOUTH EVERY EVENING 270 capsule 1 - ProAir HFA 90 mcg/actuation inhaler INHALE TWO PUFFS BY MOUTH FOUR TIMES A DAY 8.5 g 11 - tiZANidine (ZANAFLEX) 4 MG tablet Take 1 tablet (4 mg total) by mouth 2 (two) times a day. 60 tablet 3 - umeclidinium-vilanteroL (Anoro Ellipta) 62.5-25 mcg/actuation Disk with Device Inhale 1 puff into the lungs once daily. 1 each 6 No current facility-administered medications for this visit. ALLERGIES Allergies Allergen Reactions - Penicillins Anaphylaxis - Gabapentin Other (See Comments) severe fatigue - Sulfa (Sulfonamide Antibiotics) Other (See Comments) Blisters inside and outside of mouth. - Wellbutrin [Bupropion Hcl] Other (See Comments) Body numbness and tingling - Diazepam Nausea And Vomiting - Varenicline PHYSICAL EXAM Vital Signs: BP (!) 129/91 (BP Location: Right arm) Pulse 102 Wt 56.7 kg (125 lb) BMI 22.86 kg/m Constitutional: Well nourished, well groomed, NAD. CARDIAC: Regular Rate LUNGS: Breathing nonlabored, no wheezing Neurologic: Alert & oriented x 3, normal gait, no focal deficits noted. Psychiatric: Affect normal, judgment normal, mood normal. Other Affected BA/OS: Chronic Opiate Therapy Risk Mitigation: Risk Assessment Evaluation Assessment Morphine Equivalents 60 Date of Last UDS SOAPP-R Score Behavior Risks none Physical Risks none H/o Illegal Substance Abuse denies H/o Alcohol abuse denies OPIATE RISK ASSESSMENT: LOW (Routine medication monitoring, Annual UDS) Assessment is based treating physicians overall evaluation of multiple factors including MME load, age, comorbidity, medication profile, and social risk factors. The risks/benefits of chronic opiate therapy was discussed with patient including failure of therapy, psychological addiction, physiological dependence, and risk withdrawal syndrome. Warning symptoms of potential opiate overuse/overdose were discussed including sedation, somnolence, and altered mentation were reviewed and I counseled patient these symptoms can occur even when patient have been on a stable dose and also can happen despite following physicians instructions. Alternative therapies were discussed including: non-opiate medications, interventional pain procedures, and Cognitive Behavioral Therapy. After discussing these alternatives with the patient, the patient has opted to decline these alternatives at this time. Patient has tried and failed more conservative measures and were either ineffective or intolerant. In my medical opinion non-opiate therapy is not appropriate to address the patient's medical condition at this time and will continue chronic opiate therapy after having addressed efficacy, adverse side effects, and safety of therapy with the patient. The patient indicates understanding of these issues and agrees with the plan. LIFESTYLE COUNSELING: Time was spent discussing the importance of a home exercise program to promote strength, activity endurance and pain tolerance. Patient was also counseled on avoidance of tobacco products for general health as well as improved chronic pain control. ASSESSMENT AND PLAN Problem List Items Addressed This Visit Cervical radiculopathy - Primary Failed back syndrome Lumbar spondylosis PLAN: 1. Patient is stable functional and meeting the goals of chronic opiate therapy without adverse side effects, misuse, or safety concerns. PDMP was reviewed without redflags or other concerns. 2. I counseled her on the importance of maintaining her activity and low-impact exercise such as walking on a daily basis to promote good health and improve chronic pain management. 3. She did very well with recent Cervical WAQAR 4. PAtient notes that she has increasing right knee pain. She has had prior RIGHT TKA. She notes she also has had prior RIGHT genicular RFA for her knee pain which was very effective 3yrs ago. She requests repeat RFA. I will schedule her for repeat genicular nerve RFA for the right knee 5. I will continue her percocet to 10/325 qid and f/u in 4 weeks The patient indicates understanding of these issues and agrees with the plan. I reviewed the patient's medical information and medical history. I have reviewed the past medical, family, and social history sections including the medications and allergies listed in the above medical record. Patient was counseled that in my practice I do not prescribe chronic opiate therapy in the presence of ongoing illegal substance use. Patient was also counseled that drug screen testing is medically necessary from time to time to help stratify risks associated with chronic opiate therapy by assessing compliance with prescribed medications as well as to identify the presence of illegal substances. Consent for drug screen testing is required for continuation of chronic opiate therapy. Electronically signed by: Isaías Cardenas MD, 02/09/2022 1:10 PM [facility] 2022-01-25 09:15:00 PatientIbis s consent to Mike Ann Jr., MD's use of Augmedix at today's visit. [facility] 2022-01-25 09:15:00 Subjective: Patient ID: Ibis Tay is a 66 y.o. female. Chief Complaint Patient presents with - Follow-up HTN, COPD - Injections Allergy shot HPI Ibis Tay is a 66 y.o. female follow-up of hypertension and COPD and allergies shot. Seasonal allergies The patient has a history of allergies and COPD exacerbation and her allergies symptoms flare up in spring, summer and fall seasons. Her allergies symptoms includes cough, sneezing, rhinorrhea. Patient also got itchy throat, itchy ear and watery eyes. Patient is smoking 3 cigarette a day. She cut down to 1 pack of cigarette to 3 cigarette a day. Headaches The patient reports headaches onset 1-2 months. Patient wake up with the headaches, patient states Toradol 30-60 mg IM markedly improves her headache. She states that headaches comes 10 or 12 days in a month. Patient reports headaches pain as throbbing pain. Patient tried Tylenol with mild benefit. She also states that she uses opiod and opiod make worse headaches. Bilateral knee pain The patient has a history of knee pain bilaterally. Patient still has knee pain bilaterally, she was scheduled with orthopedics for right knee prosthesis but was seen by Dr. Swan vascular surgery who would not clear her due to severe peripheral vascular disease of the iliac arteries. Patient was felt to be a poor candidate for angioplasty and stenting, she has not made a follow-up appoint with orthopedics to discuss alternatives such as repeat knee injection. Patient rates her daily pain is 6-7 out of 10 worse with ambulation going up and down stairs Hypertension Patient presents for follow-up of hypertension. Since her last visit, she reports she is doing well. Patient's current medications include: prazosin 2 mg every evening QD, lisinopril 5 mg QD, and hydrochlorothiazide 25 mg QD.. She is trying to follow a low-salt diet, walk 30 minutes 5 times weekly, and denies headaches chest pain, shortness of breath, and lower extremity swelling at present and does not need refills of their blood pressure medications. Insomnia The patient has a history of insomnia. Since her last visit, she states she is doing okay sleeping at night 6-8 hours . Patient's current medications include: melatonin 3 mg QD. Hypokalemia The patient has a history of hypolalemia. Patient is taking potassium chloride 10 MEQ BID. Anxiety The patient has a history of anxiety. Patient was taking alprazolam 1 mg QID but was stopped by her psychiatrist in lieu of starting on effexor . Patient stopped Effexor after 7 days if she was nauseated and vomiting she states her anxiety is uncontrolled she is anxious most of the day for no particular reason she denies depression she denies suicidal thoughts. Pay states she is had a lifetime of anxiety as far back as she can remember has had good luck with alprazolam does not understand reluctance of the medical profession to write this for her.. Vitamin D deficiency headaches vitamin D deficiency. Patient's current medications include: cholecalciferol 0.125 mg QD. Review of Systems General : No weight gain or loss, no loss of appetite, no fever, no chills, no fatigue, no night sweats Skin And lymphatics: No rashes, no skin discolorations, no easy bruising, no lymphadenopathy Head: Positive for headaches, no dizziness, no masses, no seizures Eyes: Positive for watery eyes bilateral. No visual changes no eye pain Ears: Positive for itchy ears. Nose: Positive for discharge, Sneezing. No nosebleeds, no sinus disease Mouth and throat: Positive for itchy throat. Respiratory: Positive for cough, no shortness of breath, no sputum production Cardiovascular: No chest pain, no orthopnea, no paroxysmal nocturnal dyspnea, or dyspnea on exertion, no claudication, no edema, no valvular disease Gastrointestinal: No dysphagia, no abdominal pain, no nausea, no vomiting, no hematemesis, no diarrhea, no constipation, no melena, no hematochezia Genitourinary: No dysuria, no frequency, no hesitancy, no hematuria no discharge Endocrine: No polyuria, no polydipsia, no skin or hair changes, no heat intolerance Musculoskeletal: Positive for Knee pain bilaterally. Neuropsychiatric: No weakness no seizures, no memory changes, no depression Neurologic: No unilateral or bilateral numbness tingling or weakness, no difficulty with speech, no vision changes, no problems with balance, denies dizziness. Objective: BP 110/68 (BP Location: Left arm, Patient Position: Sitting) Pulse 76 Temp 36.1 C (97 F) (Temporal Artery (forehead)) Resp 16 Ht 157.5 cm (5' 2.01) Wt 56.7 kg (125 lb) SpO2 93% BMI 22.86 kg/m Physical Exam Physical Exam Nursing note and vitals reviewed. Constitutional: . patient appears well-developed and well-nourished. No distress. Head: Normocephalic and atraumatic. Right Ear: External ear normal. no erythema bright tympanic membrane bony landmarks intact Left Ear: External ear normal. No erythema bright tympanic membrane bony landmarks intact Mouth/Throat: No oropharyngeal exudate. Eyes: Pupils are equal, round, and reactive to light. Right eye exhibits no discharge. Left eye exhibits no discharge. No scleral icterus. Neck: No JVD present. No tracheal deviation present. No thyromegaly present. Cardiovascular: Normal rate, regular rhythm, normal heart sounds and intact distal pulses. Exam reveals no gallop and no friction rub. No murmur heard. Pulmonary/Chest: Effort normal. No respiratory distress. patient has no wheezes. patient has no rales. Patient exhibits no tenderness. Abdominal: Soft. Patient exhibits no distension and no mass. There is no tenderness to palpation. There is no rebound and no guarding. Musculoskeletal: Trace 1+ bilateral. Neurological: patient is alert and oriented to person, place, and time. gait balance and strength intact upper and lower extremity, cranial nerves 2-12 intact Skin: Skin is warm. No rash noted. Patient is not diaphoretic. No erythema. No pallor. 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 COPD exacerbation (HCC) Refilled fluticasone propionate (Flovent Diskus) 250 mcg/actuation Disk with Device; Inhale 1 puff into the lungs 2 (two) times a day. Dispense: 60 each; Refill: 3 2. Iliac artery occlusion, bilateral (HCC) 3. Secondary malignant neoplasm of other specified sites (HCC) 4. Essential hypertension Continue current medication therapy. Goal blood pressure less than 140/90 . Follow low salt diet as well as Dash Diet suggestions, aerobic exercise 30 minutes 5x weekly, keep weight close to ideal. 5. Vitamin D deficiency The current medical regimen is effective; continue present plan and medications. 6. Seasonal allergic rhinitis due to pollen Prescribed cetirizine (ZyrTEC) 10 MG tablet; Take 1 tablet (10 mg total) by mouth once daily. Dispense: 90 tablet; Refill: 1 Administered triamcinolone acetonide (KENALOG-40) injection 40 mg 7. Chronic nonintractable headache, unspecified headache type 8. Nicotine dependence with nicotine-induced disorder, unspecified nicotine product type (HCC) 9. Anxiety Refilled ALPRAZolam (Xanax) 0.5 MG tablet; Take 1 tablet (0.5 mg total) by mouth once nightly as needed for sleep. Max Daily Amount: 0.5 mg Dispense: 60 tablet; Refill: 0 spense: 60 tablet; Refill: 0 10. Primary osteoarthritis of right knee patient to be referred back to orthopedics and advised to stop smoking decrease her risk for increase in severity of her peripheral vascular disease is to keep follow-up with Dr. Swan for her claudication with walking Attestation: The patient indicates understanding of these issues and agrees with the plan. I reviewed the patient's medical information and medical history. I have reviewed the past medical, family, and social history sections including the medications and allergies listed in the above medical record. Signature: I, Rao Li, am scribing for, and in the presence of Mike Ann Jr., MD. . I have read and agree with the documentation that has been completed regarding this visit and attest, that it is an accurate record of both my words and actions during the visit. . MIKE ANN JR [facility] 2022-01-12 09:30:00 [facility] CHIEF COMPLAINT No chief complaint on file. SUBJECTIVE Ibis Tay is a 66 y.o. female who presents for follow-up of No chief complaint on file. with diagnosis of: 1. Problem List Items Addressed This Visit Cervical radiculopathy - Primary Relevant Medications oxyCODONE-acetaminophen (Percocet) 10-325 mg tablet tiZANidine (ZANAFLEX) 4 MG tablet Failed back syndrome Relevant Medications oxyCODONE-acetaminophen (Percocet) 10-325 mg tablet tiZANidine (ZANAFLEX) 4 MG tablet Lumbar spondylosis Relevant Medications oxyCODONE-acetaminophen (Percocet) 10-325 mg tablet tiZANidine (ZANAFLEX) 4 MG tablet Patient underwent LESI on 12-19-20She notes 50% improvement but continues with low back and joint pain. She notes that she has prior cervical WAQAR with >50% relief lasting 8-10mos. She feels the pain has recurred and would like to proceed with repeat cervical WAQAR She has tried OTC NSAIDs, daily home exercises/stretching she learned through PT without improvement Since patient's last encounter patient reports persistent chronic pain requiring ongoing treatment. Describes the pain as Sharp and Stabbing Patient rates their pain score 7/10 on average and is tolerable. Patient feels that the medication regimen does help maintain the function, mobility, activity tolerance and pain levels at a tolerable level. Patient states that medications changes or injections are not necessary today Patient states that the pain symptoms are stable. Patient denies new or changing pain complaints. Patient notes that the pain is worse with general activity and improved with rest. Patient 's current pain medication regimen has been reviewed with the patient and they note that the medication regimen is effective and reports that they are taking the medication regimen as prescribed. Patient denies running out of medication early or having an excess supply of medications. Other concerns: no new concerns at this time Patient's current pain medications has been reviewed and includes: DRUG FREQ Percocet 10/325 qid qid Patient's most recent interventional procedures: PROCEDURE DATE % Relief & Duration Interlaminar Lumbar Epidural Steroid Injection L3 - L4 12/19/20 ROS Constitutional: denies dizziness, sedation, or somnolence Psychological: denies altered mentation or euphoria GI: denies significant constipation or diarrhea Musc: denies acute change in numbness, weakness, or tingling of extemities MEDICATIONS Current Outpatient Medications Medication Sig Dispense Refill - ALPRAZolam (XANAX) 1 MG tablet TAKE 1/2 TABLET BY MOUTH FOUR TIMES A DAY NEEDED FOR FOR ANXIETY 60 tablet 0 - azithromycin (ZITHROMAX) 250 MG tablet Take 2 tablets (500mg) by mouth on day one, then 1 tablet (250mg) by mouth daily on days 2 through 5. (Patient not taking: Reported on 12/24/2021 ) 6 tablet 0 - cholecalciferol (VITAMIN D3) 125 mcg (5,000 unit) capsule Take 1 capsule (5,000 Units total) by mouth once daily. 100 capsule 3 - diaper,brief,adult,disposable Misc 1 application by Miscellaneous route 2 (two) times a day. 96 each 5 - Flovent Diskus 250 mcg/actuation Disk with Device INHALE ONE PUFF BY MOUTH TWICE A DAY (Patient not taking: Reported on 12/24/2021) 60 each 3 - food supplemt, lactose-reduced (ENSURE) Liquid Drink 2 bottles per day. Patient requests strawberry. 80620 mL PRN - hydroCHLOROthiazide (HYDRODIURIL) 25 MG tablet TAKE 1/2 TABLET BY MOUTH DAILY 15 tablet 1 - ibandronate (Boniva) 150 mg tablet Take 1 tablet (150 mg total) by mouth every 30 (thirty) days. Take sitting upright once mobnthly on empty stomach with glass of water , dont lay down or eat for full hour 3 tablet 4 - ipratropium-albuteroL (DUO-NEB) 0.5-2.5 mg/3 mL nebulizer INHALE 3 MILLILITERS INTO THE LUNGS FOUR TIMES A DAY 360 mL 1 - lisinopriL (PRINIVIL,ZESTRIL) 5 MG tablet TAKE ONE TABLET BY MOUTH DAILY 30 tablet 1 - melatonin 3 mg Tablet Take 1 tablet (3 mg total) by mouth daily every night. (Patient not taking: Reported on 12/24/2021 ) 30 tablet 0 - methylPREDNISolone (Medrol, Nimo,) 4 mg tablet follow package directions (Patient not taking: Reported on 12/24/2021 ) 21 tablet 0 - [place] [facility] [place] for use for breathing problems for duo-nebs treatments 1 each 0 - miscellaneous medical [place] [facility] [place], tubing and filter for nebulizer machine to be changed every 3 months. 1 each 3 - naloxone 2 mg/actuation [place], Non-Aerosol 2 mg by Nasal route as needed. 1-2 daily PRN. Proceed to ER for evaluation immediately following use. 4 each 1 - omeprazole (PriLOSEC) 40 MG capsule TAKE ONE CAPSULE BY MOUTH DAILY 30 capsule 7 - ondansetron (Zofran ODT) [address] 1-2 tablets (4-8 mg total) under the tongue every 8 (eight) hours as needed for nausea / vomiting. 20 tablet 1 - oxyCODONE-acetaminophen (Percocet) 10-325 mg tablet Take 1 tablet by mouth every 6 (six) hours as needed for pain. To Last 30days. No early refills Max Daily Amount: 4 tablets 120 tablet 0 - potassium chloride (KLOR-CON) 10 MEQ CR tablet TAKE TWO TABLETS BY MOUTH TWICE A DAY 120 tablet 1 - prazosin (MINIPRESS) 2 MG capsule TAKE THREE CAPSULES BY MOUTH EVERY EVENING 270 capsule 1 - predniSONE (DELTASONE) 20 MG tablet Take two pill once daily for 5 days then one pill daily for two days then one half pill daily for 2 days (Patient not taking: Reported on 12/24/2021 ) 13 tablet 0 - ProAir HFA 90 mcg/actuation inhaler INHALE TWO PUFFS BY MOUTH FOUR TIMES A DAY 8.5 g 11 - tiZANidine (ZANAFLEX) 4 MG tablet Take 1 tablet (4 mg total) by mouth 2 (two) times a day. 60 tablet 3 - umeclidinium-vilanteroL (Anoro Ellipta) 62.5-25 mcg/actuation Disk with Device Inhale 1 puff into the lungs once daily. 1 each 6 - venlafaxine (EFFEXOR-XR) 37.5 MG 24 hr capsule Take 1 capsule (37.5 mg total) by mouth once daily for 7 days, THEN 2 capsules (75 mg total) once daily for 30 days. 67 capsule 0 - zinc gluconate 50 mg tablet Take 1 tablet (50 mg total) by mouth once daily. (Patient not taking: Reported on 12/24/2021 ) 30 tablet 0 No current facility-administered medications for this visit. ALLERGIES Allergies Allergen Reactions - Penicillins Anaphylaxis - Gabapentin Other (See Comments) severe fatigue - Sulfa (Sulfonamide Antibiotics) Other (See Comments) Blisters inside and outside of mouth. - Wellbutrin [Bupropion Hcl] Other (See Comments) Body numbness and tingling - Diazepam Nausea And Vomiting - Varenicline PHYSICAL EXAM Vital Signs: BP (!) 155/87 (BP Location: Right arm) Comment: no c/o s/s Pulse 95 Wt 57.2 kg (126 lb) BMI 23.05 kg/m Constitutional: Well nourished, well groomed, NAD. CARDIAC: Regular Rate LUNGS: Breathing nonlabored, no wheezing Neurologic: Alert & oriented x 3, normal gait, no focal deficits noted. Psychiatric: Affect normal, judgment normal, mood normal. Other Affected BA/OS: Chronic Opiate Therapy Risk Mitigation: Risk Assessment Evaluation Assessment Morphine Equivalents 60 Date of Last UDS SOAPP-R Score Behavior Risks none Physical Risks none H/o Illegal Substance Abuse denies H/o Alcohol abuse denies OPIATE RISK ASSESSMENT: LOW (Routine medication monitoring, Annual UDS) Assessment is based treating physicians overall evaluation of multiple factors including MME load, age, comorbidity, medication profile, and social risk factors. The risks/benefits of chronic opiate therapy was discussed with patient including failure of therapy, psychological addiction, physiological dependence, and risk withdrawal syndrome. Warning symptoms of potential opiate overuse/overdose were discussed including sedation, somnolence, and altered mentation were reviewed and I counseled patient these symptoms can occur even when patient have been on a stable dose and also can happen despite following physicians instructions. Alternative therapies were discussed including: non-opiate medications, interventional pain procedures, and Cognitive Behavioral Therapy. After discussing these alternatives with the patient, the patient has opted to decline these alternatives at this time. Patient has tried and failed more conservative measures and were either ineffective or intolerant. In my medical opinion non-opiate therapy is not appropriate to address the patient's medical condition at this time and will continue chronic opiate therapy after having addressed efficacy, adverse side effects, and safety of therapy with the patient. The patient indicates understanding of these issues and agrees with the plan. LIFESTYLE COUNSELING: Time was spent discussing the importance of a home exercise program to promote strength, activity endurance and pain tolerance. Patient was also counseled on avoidance of tobacco products for general health as well as improved chronic pain control. ASSESSMENT AND PLAN Problem List Items Addressed This Visit Cervical radiculopathy - Primary Relevant Medications oxyCODONE-acetaminophen (Percocet) 10-325 mg tablet tiZANidine (ZANAFLEX) 4 MG tablet Failed back syndrome Relevant Medications oxyCODONE-acetaminophen (Percocet) 10-325 mg tablet tiZANidine (ZANAFLEX) 4 MG tablet Lumbar spondylosis Relevant Medications oxyCODONE-acetaminophen (Percocet) 10-325 mg tablet tiZANidine (ZANAFLEX) 4 MG tablet PLAN: 1. Patient is stable functional and meeting the goals of chronic opiate therapy without adverse side effects, misuse, or safety concerns. PDMP was reviewed without redflags or other concerns. 2. I counseled her on the importance of maintaining her activity and low-impact exercise such as walking on a daily basis to promote good health and improve chronic pain management. 3. She did very well with recent Cervical WAQAR 4. I will continue her percocet to 10/325 qid and f/u in 4 weeks The patient indicates understanding of these issues and agrees with the plan. I reviewed the patient's medical information and medical history. I have reviewed the past medical, family, and social history sections including the medications and allergies listed in the above medical record. Patient was counseled that in my practice I do not prescribe chronic opiate therapy in the presence of ongoing illegal substance use. Patient was also counseled that drug screen testing is medically necessary from time to time to help stratify risks associated with chronic opiate therapy by assessing compliance with prescribed medications as well as to identify the presence of illegal substances. Consent for drug screen testing is required for continuation of chronic opiate therapy. Electronically signed by: Isaías Cardenas MD, 01/12/2022 9:48 AM [facility] 2021-12-25 07:45:00 Operative Note Ibis Tay Primary Care Physician: Mike Ann Jr, MD : 1955 Age: 66 y.o. Procedure Information Date of Procedure: December 25, 2021 Site of Service: [facility] Pre-operative Diagnosis: Lumbar Radiculopathy Post-operative Diagnosis: SAME Procedure: Interlaminar Lumbar Epidural Steroid Injection L3-4 Coding: CPT 13360 Surgeon: Isaías Cardenas MD Sales Representative Leather Goods(s): NONE Anesthesia:LOCAL Estimated Blood Loss: MINIMAL FINDINGS: NONE Complications: NONE DISCUSSION: After informed consent was obtained, patient was taken to procedure room and placed on radiolucent procedure table. Patient back was prepped and draped in normal sterile fashion. Fluoroscopy was used to identify the L3-4 space and skin overlying the noted landmark was anesthetized using 3 ml of 1%lidocaine. An 18 gauge Toughy needle was then advanced in a midline interlaminar approach to the epidural space using saline loss of resistance technique. Loss of resistance was encountered at a depth of 7 cm. 2 cc of ISOVUE M200 was injected after negative aspiration epidural flow pattern was visualized in both AP and Lateral projections. After repeat negative aspiration a steroid solution containing 10mgDexamethasone and 3ml of 1% Lidocaine was injected without pressure paraesthesia. Vital signs were monitored throughout the procedure and remained stable. Patient tolerated the procedure and was sent to PACU in stable condition without apparent complication. Signed: Isaías Cardenas MD December 25, [address] [facility] 2021-12-09 10:40:00 [facility] CHIEF COMPLAINT No chief complaint on file. SUBJECTIVE Ibis Tay is a 66 y.o. female who presents for follow-up of No chief complaint on file. with diagnosis of: 1. Problem List Items Addressed This Visit Cervical radiculopathy - Primary Failed back syndrome Patient underwent LESI on 12-19-20e notes 50% improvement but continues with low back and joint pain. She notes that she has prior cervical WAQAR with >50% relief lasting 8-10mos. She feels the pain has recurred and would like to proceed with repeat cervical WAQAR She has tried OTC NSAIDs, daily home exercises/stretching she learned through PT without improvement Since patient's last encounter patient reports persistent chronic pain requiring ongoing treatment. Describes the pain as Sharp and Stabbing Patient rates their pain score 7/10 on average and is tolerable. Patient feels that the medication regimen does help maintain the function, mobility, activity tolerance and pain levels at a tolerable level. Patient states that medications changes or injections are not necessary today Patient states that the pain symptoms are stable. Patient denies new or changing pain complaints. Patient notes that the pain is worse with general activity and improved with rest. Patient 's current pain medication regimen has been reviewed with the patient and they note that the medication regimen is effective and reports that they are taking the medication regimen as prescribed. Patient denies running out of medication early or having an excess supply of medications. Other concerns: no new concerns at this time Patient's current pain medications has been reviewed and includes: DRUG FREQ Percocet qid qid Patient's most recent interventional procedures: PROCEDURE DATE % Relief & Duration Interlaminar Lumbar Epidural Steroid Injection L3 - L4 12/19/20 ROS Constitutional: denies dizziness, sedation, or somnolence Psychological: denies altered mentation or euphoria GI: denies significant constipation or diarrhea Musc: denies acute change in numbness, weakness, or tingling of extemities MEDICATIONS Current Outpatient Medications Medication Sig Dispense Refill - [START ON 12/10/2021] ALPRAZolam (XANAX) 1 MG tablet TAKE 1/2 TABLET BY MOUTH FOUR TIMES A DAY NEEDED FOR FOR ANXIETY 60 tablet 0 - azithromycin (ZITHROMAX) 250 MG tablet Take 2 tablets (500mg) by mouth on day one, then 1 tablet (250mg) by mouth daily on days 2 through 5. 6 tablet 0 - cholecalciferol (VITAMIN D3) 125 mcg (5,000 unit) capsule Take 1 capsule (5,000 Units total) by mouth once daily. 100 capsule 3 - diaper,brief,adult,disposable Misc 1 application by Miscellaneous route 2 (two) times a day. 96 each 5 - escitalopram oxalate (LEXAPRO) 5 MG tablet TAKE ONE TABLET BY MOUTH DAILY 30 tablet 0 - Flovent Diskus 250 mcg/actuation Disk with Device INHALE ONE PUFF BY MOUTH TWICE A DAY 60 each 3 - food supplemt, lactose-reduced (ENSURE) Liquid Drink 2 bottles per day. Patient requests strawberry. 05206 mL PRN - hydroCHLOROthiazide (HYDRODIURIL) 25 MG tablet Take 0.5 tablets (12.5 mg total) by mouth once daily. 45 tablet 1 - ibandronate (Boniva) 150 mg tablet Take 1 tablet (150 mg total) by mouth every 30 (thirty) days. Take sitting upright once mobnthly on empty stomach with glass of water , dont lay down or eat for full hour 3 tablet 4 - ipratropium-albuteroL (DUO-NEB) 0.5-2.5 mg/3 mL nebulizer INHALE 3 MILLILITERS INTO THE LUNGS FOUR TIMES A DAY 360 mL 1 - lisinopriL (PRINIVIL,ZESTRIL) 5 MG tablet Take 1 tablet (5 mg total) by mouth once daily. 90 tablet 1 - melatonin 3 mg Tablet Take 1 tablet (3 mg total) by mouth daily every night. 30 tablet 0 - methylPREDNISolone (Medrol, Nimo,) 4 mg tablet follow package directions 21 tablet 0 - misc[place] [facility] [place] for use for breathing problems for duo-nebs treatments 1 each 0 - misc[place] medical [place] [facility] [place], tubing and filter for nebulizer machine to be changed every 3 months. 1 each 3 - naloxone 2 mg/actuation [place], Non-Aerosol 2 mg by Nasal route as needed. 1-2 daily PRN. Proceed to ER for evaluation immediately following use. 4 each 1 - omeprazole (PriLOSEC) 40 MG capsule TAKE ONE CAPSULE BY MOUTH DAILY 30 capsule 7 - ondansetron (Zofran ODT) [address] 1-2 tablets (4-8 mg total) under the tongue every 8 (eight) hours as needed for nausea / vomiting. 20 tablet 1 - oxyCODONE-acetaminophen (Percocet) 10-325 mg tablet Take 1 tablet by mouth every 6 (six) hours as needed for pain. To Last 30days. No early refills Max Daily Amount: 4 tablets 120 tablet 0 - potassium chloride (KLOR-CON) 10 MEQ CR tablet Take 2 tablets (20 mEq total) by mouth 2 (two) times a day. 360 tablet 1 - prazosin (MINIPRESS) 2 MG capsule TAKE THREE CAPSULES BY MOUTH EVERY EVENING 270 capsule 1 - predniSONE (DELTASONE) 20 MG tablet Take two pill once daily for 5 days then one pill daily for two days then one half pill daily for 2 days 13 tablet 0 - ProAir HFA 90 mcg/actuation inhaler INHALE TWO PUFFS BY MOUTH FOUR TIMES A DAY 8.5 g 11 - tiZANidine (ZANAFLEX) 4 MG tablet Take 4 mg by mouth 2 (two) times a day. - umeclidinium-vilanteroL (Anoro Ellipta) 62.5-25 mcg/actuation Disk with Device Inhale 1 puff into the lungs once daily. 1 each 6 - zinc gluconate 50 mg tablet Take 1 tablet (50 mg total) by mouth once daily. 30 tablet 0 No current facility-administered medications for this visit. ALLERGIES Allergies Allergen Reactions - Penicillins Anaphylaxis - Gabapentin Other (See Comments) severe fatigue - Sulfa (Sulfonamide Antibiotics) Other (See Comments) Blisters inside and outside of mouth. - Wellbutrin [Bupropion Hcl] Other (See Comments) Body numbness and tingling - Diazepam Nausea And Vomiting - Varenicline PHYSICAL EXAM Vital Signs: BP (!) 148/72 (BP Location: Right arm) Pulse 102 Wt 55.3 kg (122 lb) BMI 22.31 kg/m Constitutional: Well nourished, well groomed, NAD. CARDIAC: Regular Rate LUNGS: Breathing nonlabored, no wheezing Neurologic: Alert & oriented x 3, normal gait, no focal deficits noted. Psychiatric: Affect normal, judgment normal, mood normal. Other Affected BA/OS: Chronic Opiate Therapy Risk Mitigation: Risk Assessment Evaluation Assessment Morphine Equivalents 60 Date of Last UDS SOAPP-R Score Behavior Risks none Physical Risks none H/o Illegal Substance Abuse denies H/o Alcohol abuse denies OPIATE RISK ASSESSMENT: LOW (Routine medication monitoring, Annual UDS) Assessment is based treating physicians overall evaluation of multiple factors including MME load, age, comorbidity, medication profile, and social risk factors. The risks/benefits of chronic opiate therapy was discussed with patient including failure of therapy, psychological addiction, physiological dependence, and risk withdrawal syndrome. Warning symptoms of potential opiate overuse/overdose were discussed including sedation, somnolence, and altered mentation were reviewed and I counseled patient these symptoms can occur even when patient have been on a stable dose and also can happen despite following physicians instructions. Alternative therapies were discussed including: non-opiate medications, interventional pain procedures, and Cognitive Behavioral Therapy. After discussing these alternatives with the patient, the patient has opted to decline these alternatives at this time. Patient has tried and failed more conservative measures and were either ineffective or intolerant. In my medical opinion non-opiate therapy is not appropriate to address the patient's medical condition at this time and will continue chronic opiate therapy after having addressed efficacy, adverse side effects, and safety of therapy with the patient. The patient indicates understanding of these issues and agrees with the plan. LIFESTYLE COUNSELING: Time was spent discussing the importance of a home exercise program to promote strength, activity endurance and pain tolerance. Patient was also counseled on avoidance of tobacco products for general health as well as improved chronic pain control. ASSESSMENT AND PLAN Problem List Items Addressed This Visit Cervical radiculopathy - Primary Failed back syndrome PLAN: 1. Patient is stable functional and meeting the goals of chronic opiate therapy without adverse side effects, misuse, or safety concerns. PDMP was reviewed without redflags or other concerns. 2. I counseled her on the importance of maintaining her activity and low-impact exercise such as walking on a daily basis to promote good health and improve chronic pain management. 3. I will schedule her for repeat Cervical WAQAR 4. I will continue her percocet to 10/325 qid and f/u in 4 weeks The patient indicates understanding of these issues and agrees with the plan. I reviewed the patient's medical information and medical history. I have reviewed the past medical, family, and social history sections including the medications and allergies listed in the above medical record. Patient was counseled that in my practice I do not prescribe chronic opiate therapy in the presence of ongoing illegal substance use. Patient was also counseled that drug screen testing is medically necessary from time to time to help stratify risks associated with chronic opiate therapy by assessing compliance with prescribed medications as well as to identify the presence of illegal substances. Consent for drug screen testing is required for continuation of chronic opiate therapy. Electronically signed by: Isaías Cardenas MD, 12/09/2021 11:03 AM ISAÍAS CARDENAS [facility] 2021-11-12 09:30:00 [facility] CHIEF COMPLAINT No chief complaint on file. SUBJECTIVE Ibis Tay is a 66 y.o. female who presents for follow-up of No chief complaint on file. with diagnosis of: 1. Problem List Items Addressed This Visit None Patient underwent LESI on 12-19-20e notes 50% improvement but continues with low back and joint pain Since patient's last encounter patient reports persistent chronic pain requiring ongoing treatment. Describes the pain as Sharp and Stabbing Patient rates their pain score 7/10 on average and is tolerable. Patient feels that the medication regimen does help maintain the function, mobility, activity tolerance and pain levels at a tolerable level. Patient states that medications changes or injections are not necessary today Patient states that the pain symptoms are stable. Patient denies new or changing pain complaints. Patient notes that the pain is worse with general activity and improved with rest. Patient 's current pain medication regimen has been reviewed with the patient and they note that the medication regimen is effective and reports that they are taking the medication regimen as prescribed. Patient denies running out of medication early or having an excess supply of medications. Other concerns: no new concerns at this time Patient's current pain medications has been reviewed and includes: DRUG FREQ Percocet qid qid Patient's most recent interventional procedures: PROCEDURE DATE % Relief & Duration Interlaminar Lumbar Epidural Steroid Injection L3 - L4 12/19/20 ROS Constitutional: denies dizziness, sedation, or somnolence Psychological: denies altered mentation or euphoria GI: denies significant constipation or diarrhea Musc: denies acute change in numbness, weakness, or tingling of extemities MEDICATIONS Current Outpatient Medications Medication Sig Dispense Refill - ALPRAZolam (XANAX) 1 MG tablet TAKE 1/2 TABLET BY MOUTH FOUR TIMES A DAY NEEDED FOR FOR ANXIETY 60 tablet 0 - azithromycin (ZITHROMAX) 250 MG tablet Take 2 tablets (500mg) by mouth on day one, then 1 tablet (250mg) by mouth daily on days 2 through 5. 6 tablet 0 - cholecalciferol (VITAMIN D3) 125 mcg (5,000 unit) capsule Take 1 capsule (5,000 Units total) by mouth once daily. 100 capsule 3 - diaper,brief,adult,disposable Misc 1 application by Miscellaneous route 2 (two) times a day. 96 each 5 - escitalopram oxalate (LEXAPRO) 5 MG tablet TAKE ONE TABLET BY MOUTH DAILY 30 tablet 0 - Flovent Diskus 250 mcg/actuation Disk with Device INHALE ONE PUFF BY MOUTH TWICE A DAY 60 each 3 - food supplemt, lactose-reduced (ENSURE) Liquid Drink 2 bottles per day. Patient requests strawberry. 97738 mL PRN - hydroCHLOROthiazide (HYDRODIURIL) 25 MG tablet Take 0.5 tablets (12.5 mg total) by mouth once daily. 45 tablet 1 - ibandronate (Boniva) 150 mg tablet Take 1 tablet (150 mg total) by mouth every 30 (thirty) days. Take sitting upright once mobnthly on empty stomach with glass of water , dont lay down or eat for full hour 3 tablet 4 - ipratropium-albuteroL (DUO-NEB) 0.5-2.5 mg/3 mL nebulizer INHALE 3 MILLILITERS INTO THE LUNGS FOUR TIMES A DAY 360 mL 1 - lisinopriL (PRINIVIL,ZESTRIL) 5 MG tablet Take 1 tablet (5 mg total) by mouth once daily. 90 tablet 1 - melatonin 3 mg Tablet Take 1 tablet (3 mg total) by mouth daily every night. 30 tablet 0 - methylPREDNISolone (Medrol, Nimo,) 4 mg tablet follow package directions 21 tablet 0 - miscellaneous [place] [facility] [place] for use for breathing problems for duo-nebs treatments 1 each 0 - miscellaneous medical [place] [facility] [place], tubing and filter for nebulizer machine to be changed every 3 months. 1 each 3 - naloxone 2 mg/actuation [place], Non-Aerosol 2 mg by Nasal route as needed. 1-2 daily PRN. Proceed to ER for evaluation immediately following use. 4 each 1 - omeprazole (PriLOSEC) 40 MG capsule TAKE ONE CAPSULE BY MOUTH DAILY 30 capsule 7 - ondansetron (Zofran ODT) [address] 1-2 tablets (4-8 mg total) under the tongue every 8 (eight) hours as needed for nausea / vomiting. 20 tablet 1 - oxyCODONE-acetaminophen (Percocet) 10-325 mg tablet Take 1 tablet by mouth every 6 (six) hours as needed for pain. To Last 30days. No early refills Max Daily Amount: 4 tablets 120 tablet 0 - potassium chloride (KLOR-CON) 10 MEQ CR tablet Take 2 tablets (20 mEq total) by mouth 2 (two) times a day. 360 tablet 1 - prazosin (MINIPRESS) 2 MG capsule TAKE THREE CAPSULES BY MOUTH EVERY EVENING 270 capsule 1 - predniSONE (DELTASONE) 20 MG tablet Take two pill once daily for 5 days then one pill daily for two days then one half pill daily for 2 days 13 tablet 0 - ProAir HFA 90 mcg/actuation inhaler INHALE TWO PUFFS BY MOUTH FOUR TIMES A DAY 8.5 g 11 - tiZANidine (ZANAFLEX) 4 MG tablet Take 4 mg by mouth 2 (two) times a day. - umeclidinium-vilanteroL (Anoro Ellipta) 62.5-25 mcg/actuation Disk with Device Inhale 1 puff into the lungs once daily. 1 each 6 - zinc gluconate 50 mg tablet Take 1 tablet (50 mg total) by mouth once daily. 30 tablet 0 No current facility-administered medications for this visit. ALLERGIES Allergies Allergen Reactions - Penicillins Anaphylaxis - Gabapentin Other (See Comments) severe fatigue - Sulfa (Sulfonamide Antibiotics) Other (See Comments) Blisters inside and outside of mouth. - Wellbutrin [Bupropion Hcl] Other (See Comments) Body numbness and tingling - Diazepam Nausea And Vomiting - Varenicline PHYSICAL EXAM Vital Signs: BP 135/81 (BP Location: Right arm) Pulse 105 Ht 157.5 cm (5' 2) Wt 54.4 kg (120 lb) BMI 21.95 kg/m Constitutional: Well nourished, well groomed, NAD. CARDIAC: Regular Rate LUNGS: Breathing nonlabored, no wheezing Neurologic: Alert & oriented x 3, normal gait, no focal deficits noted. Psychiatric: Affect normal, judgment normal, mood normal. Other Affected BA/OS: Chronic Opiate Therapy Risk Mitigation: Risk Assessment Evaluation Assessment Morphine Equivalents 60 Date of Last UDS SOAPP-R Score Behavior Risks none Physical Risks none H/o Illegal Substance Abuse denies H/o Alcohol abuse denies OPIATE RISK ASSESSMENT: LOW (Routine medication monitoring, Annual UDS) Assessment is based treating physicians overall evaluation of multiple factors including MME load, age, comorbidity, medication profile, and social risk factors. The risks/benefits of chronic opiate therapy was discussed with patient including failure of therapy, psychological addiction, physiological dependence, and risk withdrawal syndrome. Warning symptoms of potential opiate overuse/overdose were discussed including sedation, somnolence, and altered mentation were reviewed and I counseled patient these symptoms can occur even when patient have been on a stable dose and also can happen despite following physicians instructions. Alternative therapies were discussed including: non-opiate medications, interventional pain procedures, and Cognitive Behavioral Therapy. After discussing these alternatives with the patient, the patient has opted to decline these alternatives at this time. Patient has tried and failed more conservative measures and were either ineffective or intolerant. In my medical opinion non-opiate therapy is not appropriate to address the patient's medical condition at this time and will continue chronic opiate therapy after having addressed efficacy, adverse side effects, and safety of therapy with the patient. The patient indicates understanding of these issues and agrees with the plan. LIFESTYLE COUNSELING: Time was spent discussing the importance of a home exercise program to promote strength, activity endurance and pain tolerance. Patient was also counseled on avoidance of tobacco products for general health as well as improved chronic pain control. ASSESSMENT AND PLAN Problem List Items Addressed This Visit None PLAN: 1. Patient is stable functional and meeting the goals of chronic opiate therapy without adverse side effects, misuse, or safety concerns. PDMP was reviewed without redflags or other concerns. 2. I counseled her on the importance of maintaining her activity and low-impact exercise such as walking on a daily basis to promote good health and improve chronic pain management. 3. I will schedule her for repeat Cervical WAQAR 4. I will continue her percocet to 10/325 qid and f/u in 4 weeks The patient indicates understanding of these issues and agrees with the plan. I reviewed the patient's medical information and medical history. I have reviewed the past medical, family, and social history sections including the medications and allergies listed in the above medical record. Patient was counseled that in my practice I do not prescribe chronic opiate therapy in the presence of ongoing illegal substance use. Patient was also counseled that drug screen testing is medically necessary from time to time to help stratify risks associated with chronic opiate therapy by assessing compliance with prescribed medications as well as to identify the presence of illegal substances. Consent for drug screen testing is required for continuation of chronic opiate therapy. Electronically signed by: Isaías Cardenas MD, 11/12/2021 9:21 AM ISAÍAS CARDENAS [facility] 2021-10-15 09:50:00 [facility] CHIEF COMPLAINT No chief complaint on file. SUBJECTIVE Ibis Tay is a 66 y.o. female who presents for follow-up of No chief complaint on file. with diagnosis of: 1. Problem List Items Addressed This Visit Cervical radiculopathy Failed back syndrome Lumbar spondylosis - Primary Patient underwent LESI on 12-19-20She notes 50% improvement but continues with low back and joint pain Since patient's last encounter patient reports persistent chronic pain requiring ongoing treatment. Describes the pain as Sharp and Stabbing Patient rates their pain score 7/10 on average and is tolerable. Patient feels that the medication regimen does help maintain the function, mobility, activity tolerance and pain levels at a tolerable level. Patient states that medications changes or injections are not necessary today Patient states that the pain symptoms are stable. Patient denies new or changing pain complaints. Patient notes that the pain is worse with general activity and improved with rest. Patient 's current pain medication regimen has been reviewed with the patient and they note that the medication regimen is effective and reports that they are taking the medication regimen as prescribed. Patient denies running out of medication early or having an excess supply of medications. Other concerns: no new concerns at this time Patient's current pain medications has been reviewed and includes: DRUG FREQ Percocet qid qid Patient's most recent interventional procedures: PROCEDURE DATE % Relief & Duration Interlaminar Lumbar Epidural Steroid Injection L3 - L4 12/19/20 ROS Constitutional: denies dizziness, sedation, or somnolence Psychological: denies altered mentation or euphoria GI: denies significant constipation or diarrhea Musc: denies acute change in numbness, weakness, or tingling of extemities MEDICATIONS Current Outpatient Medications Medication Sig Dispense Refill - [START ON 10/16/2021] ALPRAZolam (XANAX) 1 MG tablet TAKE ONE HALF TABLET BY MOUTH FOUR TIMES A DAY NEEDED FOR FOR ANXIETY 60 tablet 0 - azithromycin (ZITHROMAX) 250 MG tablet Take 2 tablets (500mg) by mouth on day one, then 1 tablet (250mg) by mouth daily on days 2 through 5. 6 tablet 0 - cholecalciferol (VITAMIN D3) 125 mcg (5,000 unit) capsule Take 1 capsule (5,000 Units total) by mouth once daily. 100 capsule 3 - diaper,brief,adult,disposable Misc 1 application by Miscellaneous route 2 (two) times a day. 96 each 5 - escitalopram oxalate (LEXAPRO) 5 MG tablet TAKE ONE TABLET BY MOUTH DAILY 30 tablet 0 - Flovent Diskus 250 mcg/actuation Disk with Device INHALE ONE PUFF BY MOUTH TWICE A DAY 60 each 3 - food supplemt, lactose-reduced (ENSURE) Liquid Drink 2 bottles per day. Patient requests strawberry. 53092 mL PRN - hydroCHLOROthiazide (HYDRODIURIL) 25 MG tablet Take 0.5 tablets (12.5 mg total) by mouth once daily. 45 tablet 1 - ibandronate (Boniva) 150 mg tablet Take 1 tablet (150 mg total) by mouth every 30 (thirty) days. Take sitting upright once mobnthly on empty stomach with glass of water , dont lay down or eat for full hour 3 tablet 4 - ipratropium-albuteroL (DUO-NEB) 0.5-2.5 mg/3 mL nebulizer INHALE 3 MILLILITERS INTO THE LUNGS FOUR TIMES A DAY 360 mL 1 - lisinopriL (PRINIVIL,ZESTRIL) 5 MG tablet Take 1 tablet (5 mg total) by mouth once daily. 90 tablet 1 - melatonin 3 mg Tablet Take 1 tablet (3 mg total) by mouth daily every night. 30 tablet 0 - methylPREDNISolone (Medrol, Nimo,) 4 mg tablet follow package directions 21 tablet 0 - [place] [facility] [place] for use for breathing problems for duo-nebs treatments 1 each 0 - miscellaneous medical [place] [facility] [place], tubing and filter for nebulizer machine to be changed every 3 months. 1 each 3 - naloxone 2 mg/actuation [place], Non-Aerosol 2 mg by Nasal route as needed. 1-2 daily PRN. Proceed to ER for evaluation immediately following use. 4 each 1 - omeprazole (PriLOSEC) 40 MG capsule TAKE ONE CAPSULE BY MOUTH DAILY 30 capsule 7 - ondansetron (Zofran ODT) [address] 1-2 tablets (4-8 mg total) under the tongue every 8 (eight) hours as needed for nausea / vomiting. 20 tablet 1 - oxyCODONE-acetaminophen (Percocet) 10-325 mg tablet Take 1 tablet by mouth every 6 (six) hours as needed for pain. To Last 30days. No early refills Max Daily Amount: 4 tablets 120 tablet 0 - potassium chloride (KLOR-CON) 10 MEQ CR tablet Take 2 tablets (20 mEq total) by mouth 2 (two) times a day. 360 tablet 1 - prazosin (MINIPRESS) 2 MG capsule TAKE THREE CAPSULES BY MOUTH EVERY EVENING 270 capsule 1 - predniSONE (DELTASONE) 20 MG tablet Take two pill once daily for 5 days then one pill daily for two days then one half pill daily for 2 days 13 tablet 0 - ProAir HFA 90 mcg/actuation inhaler INHALE TWO PUFFS BY MOUTH FOUR TIMES A DAY 8.5 g 11 - tiZANidine (ZANAFLEX) 4 MG tablet Take 4 mg by mouth 2 (two) times a day. - umeclidinium-vilanteroL (Anoro Ellipta) 62.5-25 mcg/actuation Disk with Device Inhale 1 puff into the lungs once daily. 1 each 6 - zinc gluconate 50 mg tablet Take 1 tablet (50 mg total) by mouth once daily. 30 tablet 0 No current facility-administered medications for this visit. ALLERGIES Allergies Allergen Reactions - Penicillins Anaphylaxis - Gabapentin Other (See Comments) severe fatigue - Sulfa (Sulfonamide Antibiotics) Other (See Comments) Blisters inside and outside of mouth. - Wellbutrin [Bupropion Hcl] Other (See Comments) Body numbness and tingling - Diazepam Nausea And Vomiting - Varenicline PHYSICAL EXAM Vital Signs: BP 138/66 Pulse 93 Wt 54.4 kg (120 lb) BMI 21.95 kg/m Constitutional: Well nourished, well groomed, NAD. CARDIAC: Regular Rate LUNGS: Breathing nonlabored, no wheezing Neurologic: Alert & oriented x 3, normal gait, no focal deficits noted. Psychiatric: Affect normal, judgment normal, mood normal. Other Affected BA/OS: Chronic Opiate Therapy Risk Mitigation: Risk Assessment Evaluation Assessment Morphine Equivalents 60 Date of Last UDS SOAPP-R Score Behavior Risks none Physical Risks none H/o Illegal Substance Abuse denies H/o Alcohol abuse denies OPIATE RISK ASSESSMENT: LOW (Routine medication monitoring, Annual UDS) Assessment is based treating physicians overall evaluation of multiple factors including MME load, age, comorbidity, medication profile, and social risk factors. The risks/benefits of chronic opiate therapy was discussed with patient including failure of therapy, psychological addiction, physiological dependence, and risk withdrawal syndrome. Warning symptoms of potential opiate overuse/overdose were discussed including sedation, somnolence, and altered mentation were reviewed and I counseled patient these symptoms can occur even when patient have been on a stable dose and also can happen despite following physicians instructions. Alternative therapies were discussed including: non-opiate medications, interventional pain procedures, and Cognitive Behavioral Therapy. After discussing these alternatives with the patient, the patient has opted to decline these alternatives at this time. Patient has tried and failed more conservative measures and were either ineffective or intolerant. In my medical opinion non-opiate therapy is not appropriate to address the patient's medical condition at this time and will continue chronic opiate therapy after having addressed efficacy, adverse side effects, and safety of therapy with the patient. The patient indicates understanding of these issues and agrees with the plan. LIFESTYLE COUNSELING: Time was spent discussing the importance of a home exercise program to promote strength, activity endurance and pain tolerance. Patient was also counseled on avoidance of tobacco products for general health as well as improved chronic pain control. ASSESSMENT AND PLAN Problem List Items Addressed This Visit Cervical radiculopathy Failed back syndrome Lumbar spondylosis - Primary PLAN: 1. Patient is stable functional and meeting the goals of chronic opiate therapy without adverse side effects, misuse, or safety concerns. PDMP was reviewed without redflags or other concerns. 2. I counseled her on the importance of maintaining her activity and low-impact exercise such as walking on a daily basis to promote good health and improve chronic pain management. 3. I will schedule her for repeat Cervical WAQAR 4. I will continue her percocet to 10/325 qid and f/u in 4 weeks The patient indicates understanding of these issues and agrees with the plan. I reviewed the patient's medical information and medical history. I have reviewed the past medical, family, and social history sections including the medications and allergies listed in the above medical record. Patient was counseled that in my practice I do not prescribe chronic opiate therapy in the presence of ongoing illegal substance use. Patient was also counseled that drug screen testing is medically necessary from time to time to help stratify risks associated with chronic opiate therapy by assessing compliance with prescribed medications as well as to identify the presence of illegal substances. Consent for drug screen testing is required for continuation of chronic opiate therapy. Electronically signed by: Isaías Cardenas MD, 10/15/2021 10:13 AM ISA[facility]AS CARDENAS [facility] 2021-09-22 11:00:00 Vascular Surgery Follow UP Note Ibis Tay Primary Care Physician: Mike Ann Jr, MD : 1955 Age: 66 y.o. Subjective: Chief Complaint: Patient is a 66 y.o. female here for follow up, was last seen 6 months ago. Patient has bilateral iliac occlusions that are not able to be stented. She has complex pain history with chronic low back and LE pain-underlying diagnosis of spinal stenosis. She has chronic right knee pain. Reports needing a new replacement. Patient complains of bilateral lower extremity fatigue at short distances. Pain improves with rest. Has noticed intermittent discoloration of her feet. Improved with elevation. Complains of rest pain in the bilateral lower extremities. Pain mainly occurs in the thighs. Most of her pain is centered around the righ knee-history of knee replacement. Pain is improved with pain medication-currently under the care of a pain specialist. Takes oxycodone 10 mg q 6 hours. Denies any nonhealing LE wounds. Previous Vascular procedures: Angiogram Vascular Lab- Arterial duplex Bilateral Lower Extremities Right: The right lower extremity duplex suggests severe lower extremity disease. Duplex suggest disease is present in the aorto-iliac segment of the right lower extremity. Left:The left lower extremity duplex suggests severe lower extremity disease. Duplex suggest disease is present in the aorto-iliac segment of the right lower extremity. Principal Problem: Patient Active Problem List Diagnosis - Hypercholesteremia - Hyperlipidemia - Anxiety attack - Generalized anxiety disorder - Smoker - Essential hypertension - Acute bronchitis - AR (allergic rhinitis) - GERD (gastroesophageal reflux disease) - Osteoarthritis of right knee - Arthritis - DDD (degenerative disc disease) - Failed back syndrome - Anxiety state - Cervical disc disease - Cervical radiculopathy - Spinal stenosis - Cervical spondylosis with myelopathy - Screening - History of total knee arthroplasty - Knee pain - Trochanteric bursitis - Knee osteoarthritis - Knee joint replacement status - Hip fracture, left (HCC) - Depression - S/P total knee arthroplasty - S/P hip hemiarthroplasty- Left - Anxiety state - Pain in joint, lower leg - Routine general medical examination at a health care facility - Osteoarthritis of knee - Vitamin D deficiency - Dyslipidemia - Community acquired pneumonia - COPD exacerbation (HCC) - Hypoxia - Pneumonia of left lower lobe due to infectious organism - Severe sepsis (HCC) - Other chest pain - Pulmonary nodule - Lung cancer (HCC) - Mediastinal lymphadenopathy - Adenocarcinoma of lung, left (HCC) - Malignant neoplasm of upper lobe, left bronchus or lung (HCC) - Acute cystitis without hematuria - Urinary tract infection without hematuria - Fall at home, sequela - Right hand pain - Compression fracture of body of thoracic vertebra (HCC) - Non-small cell carcinoma of lung (HCC) - Vascular disease, peripheral (HCC) - Secondary malignant neoplasm of other specified sites (HCC) - Stricture of artery (HCC) - Lumbar spondylosis - Cervical radiculopathy - Iliac artery occlusion, bilateral (HCC) Past Medical History: Diagnosis Date - Anxiety Takes Xanax - Arthritis - Breast mass 2013 rt axilla - Bronchitis - Bursitis Left hip - Cancer (HCC) left lung cancer, scheduled for left upper lobectomy at [facility] with Dr. Moore - Cervical radiculopathy sees Dr. Cardenas, gets cervical pain injections every 3 months, last done in - COPD (chronic obstructive pulmonary disease) ([facility]) - DDD (degenerative disc disease) - Depression dr. 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 pylori infection Hx of H pylori infection several months ago treated with medication, no current issues. - H/O pyloric stenosis - Hiatal hernia - HTN (hypertension) - Hypercholesteremia - Hyperlipidemia No current medications or issues. - OA (osteoarthritis) of knee - Oxygen desaturation at night 3.5 liter - Palpitations with anxiety - Peripheral vascular disease (HCC) 10/2020 abdominal pain-stricture liliac artery - Pneumonia 1994 resolved. - PONV (postoperative nausea and vomiting) - PTSD (post-traumatic stress disorder) son was murdered 8 years ago, followed by Dr. Milly Freire - Spinal stenosis cervical - Urinary incontinence - Wears dentures full set - Wears glasses Past Surgical History: Procedure Laterality Date - ESOPHAGEAL DILATION 2012 approx. done with upper endoscopy - KNEE ARTHROPLASTY Right 2010 - LUMBAR FUSION 1995 - LUNG LOBECTOMY Left 10/11/2017 Upper - CO INTRODUCTION CATHETER AORTA Right 11/03/2020 Procedure: ABDOMINAL AORTOGRAM; Surgeon: Imelda Swan MD; Location: [facility]; Service: Vascular - CO TOTAL KNEE ARTHROPLASTY Right 05/28/2014 Procedure: REPLACEMENT TOTAL JOINT KNEE RIGHT / BETO ; Surgeon: Isaak Moncada MD; Location: [facility] OR; Service: Orthopedics - SPINE SURGERY lumbar fusion - TENDON RELEASE Right arm - TOTAL HIP ARTHROPLASTY Left 09/26/14 hip hem-iarthoplasty - TOTAL KNEE ARTHROPLASTY Left 11/23 - TUBAL LIGATION Bilateral - UPPER GASTROINTESTINAL ENDOSCOPY 2012 approx. diagnosed with H. Pylori and esophagus dilated. - UPPER GASTROINTESTINAL ENDOSCOPY Social History Socioeconomic History - Marital status: Spouse name: Not on file - Number of children: Not on file - Years of education: 14 - Highest education level: Not on file Occupational History - Not on file Tobacco Use - Smoking status: Current Every Day Smoker Packs/day: 2.00 Years: 44.00 Pack years: 88.00 Types: Cigarettes, Vaporizer - Smokeless tobacco: Never Used - Tobacco comment: does not completly smoke a cigarette Vaping Use - Vaping Use: Never used Substance and Sexual Activity - Alcohol use: Yes - Drug use: No - Sexual activity: Not Currently Other Topics Concern - Not on file Social History Narrative - Not on file Social Determinants of Health Financial Resource Strain: Low Risk - Difficulty of Paying Living Expenses: Not very hard Food Insecurity: Food Insecurity Present - Worried About Running Out of Food in the Last Year: Sometimes true - Ran Out of Food in the Last Year: Sometimes true Transportation Needs: Unmet Transportation Needs - Lack of Transportation (Medical): Yes - Lack of Transportation (Non-Medical): Yes Physical Activity: - Days of Exercise per Week: Not on file - Minutes of Exercise per Session: Not on file Stress: - Feeling of Stress : Not on file Social Connections: - Frequency of Communication with Friends and Family: Not on file - Frequency of Social Gatherings with Friends and Family: Not on file - Attends [employer] Services: Not on file - Active Member of Clubs or Organizations: Not on file - Attends Club or Organization Meetings: Not on file - Marital Status: Not on file Intimate Partner Violence: - Fear of Current or Ex-Partner: Not on file - Emotionally Abused: Not on file - Physically Abused: Not on file - Sexually Abused: Not on file Family History Family History Problem Relation Age of Onset - Other Other Hx: Yes Dx: Diabetes Fam Mem: Family h/o - Drug abuse Other - Other Other Hx: Yes Dx: Hypertension Fam Mem: Mother - Drug abuse Other - Hypertension Mother - Heart disease Mother - Diabetes Mother - No Known Problem Father - Other Sister - Cancer Sister - Other Other Hx: Yes Dx: Heart disease Fam Mem: Mother - Diabetes Maternal Grandmother (Not in a hospital admission) Allergies Allergen Reactions - Penicillins Anaphylaxis - Gabapentin Other (See Comments) severe fatigue - Sulfa (Sulfonamide Antibiotics) Other (See Comments) Blisters inside and outside of mouth. - Wellbutrin [Bupropion Hcl] Other (See Comments) Body numbness and tingling - Diazepam Nausea And Vomiting - Varenicline Reviewed and updated Past Medical History? Yes Review of Systems General- no fevers/unexplained weight changes Psychological- no sadness/anxiety, no SI/HI Ophthalmic- no vision changes/eye mattering ENT- no decreased hearing/sinus pressure/throat pain Allergy and Immunology- no frequent colds, tongue/lip swelling Hematological and Lymphatic- no night sweats/easy bruising/subcutaneous masses Endocrine- no polyuria/polydipsia/heat-cold intolerance Breast- no nipple discharge/masses Respiratory- no cough/shortness of breath/wheezing Cardiovascular- no chest pain/palpitations Gastrointestinal- no nausea/vomiting/diarrhea/blood in stools Genito-Urinary- no dysuria/frequency/discharge Musculoskeletal- see above HPI Neurological- no slurred speech/paresthesias/weakness Dermatological- no rashes/bruising/skin lesions Objective Physical Exam BP 98/62 (BP Location: Right arm, Patient Position: Sitting) Pulse 94 Temp 36.5 C (97.7 F) (Temporal Artery (forehead)) SpO2 99% HEENT: EOMI/ANDREAS Neck: Supple, trachea midline CVS: NSR Lungs: CTA B Abd soft ND, NT B LE: warm and well perfused. Neuro intact- no motor or sensory loss. Diagnostic Findings Additional comments:None Extensive review of previous medical records completed. Assessment: Chief Complaint: Patient is a 66 y.o. female here for follow up, was last seen 6 months ago. Patient has bilateral iliac occlusions that are not able to be stented. She has complex pain history with chronic low back and LE pain-underlying diagnosis of failed back syndrome and spinal stenosis. She has chronic right knee pain. Reports needing a new replacement. Patient complains of bilateral lower extremity fatigue at short distances. Pain improves with rest. Has noticed intermittent discoloration of her feet. Improved with elevation. Complains of rest pain in the bilateral lower extremities. Pain mainly occurs in the thighs. Most of her pain is centered around the right knee-history of knee replacement. Pain is improved with pain medication-currently under the care of a pain specialist. Takes oxycodone 10 mg q 6 hours. Denies any nonhealing LE wounds. Previous Vascular procedures: Angiogram Vascular Lab- Arterial duplex Bilateral Lower Extremities Right: The right lower extremity duplex suggests severe lower extremity disease. Duplex suggest disease is present in the aorto-iliac segment of the right lower extremity. Left:The left lower extremity duplex suggests severe lower extremity disease. Duplex suggest disease is present in the aorto-iliac segment of the right lower extremity. 1. Atherosclerosis of [place] arteries of extremities with intermittent claudication, bilateral legs (HCC) 2. Failed back syndrome Plan: Patient has bilateral iliac occlusions. She is not having signficant rest pain associated with her arterial disease. She does not have any nonhealing wounds. Her pain is controlled with narcotic medication prescribed by pain managment. Will hold off on any intervention at this time. Follow up in one year with duplex. Signed: Imelda Swan MD 09/22/2021 10:52 AM [address]AN [facility] 2021-09-16 09:30:00 [facility] CHIEF COMPLAINT Back Pain (follow up med refill : nausea ) SUBJECTIVE Ibis Tay is a 66 y.o. female who presents for follow-up of Back Pain (follow up med refill : nausea ) with diagnosis of: 1. Problem List Items Addressed This Visit Cervical radiculopathy Relevant Medications oxyCODONE-acetaminophen (Percocet) 10-325 mg tablet Failed back syndrome - Primary Relevant Medications oxyCODONE-acetaminophen (Percocet) 10-325 mg tablet Lumbar spondylosis Relevant Medications oxyCODONE-acetaminophen (Percocet) 10-325 mg tablet Patient underwent LESI on 6-4-21She notes 50% improvement but continues with low back and joint pain Since patient's last encounter patient reports persistent chronic pain requiring ongoing treatment. Describes the pain as Sharp and Stabbing Patient rates their pain score 7/10 on average and is tolerable. Patient feels that the medication regimen does help maintain the function, mobility, activity tolerance and pain levels at a tolerable level. Patient states that medications changes or injections are not necessary today Patient states that the pain symptoms are stable. Patient denies new or changing pain complaints. Patient notes that the pain is worse with general activity and improved with rest. Patient 's current pain medication regimen has been reviewed with the patient and they note that the medication regimen is effective and reports that they are taking the medication regimen as prescribed. Patient denies running out of medication early or having an excess supply of medications. Other concerns: no new concerns at this time Patient's current pain medications has been reviewed and includes: DRUG FREQ Percocet qid qid Patient's most recent interventional procedures: PROCEDURE DATE % Relief & Duration Interlaminar Lumbar Epidural Steroid Injection L3 - L4 12/19/20 ROS Constitutional: denies dizziness, sedation, or somnolence Psychological: denies altered mentation or euphoria GI: denies significant constipation or diarrhea Musc: denies acute change in numbness, weakness, or tingling of extemities MEDICATIONS Current Outpatient Medications Medication Sig Dispense Refill - ALPRAZolam (XANAX) 1 MG tablet TAKE ONE HALF TABLET BY MOUTH FOUR TIMES A DAY NEEDED FOR ANXIETY 60 tablet 0 - azithromycin (ZITHROMAX) 250 MG tablet Take 2 tablets (500mg) by mouth on day one, then 1 tablet (250mg) by mouth daily on days 2 through 5. 6 tablet 0 - cholecalciferol (VITAMIN D3) 125 mcg (5,000 unit) capsule Take 1 capsule (5,000 Units total) by mouth once daily. 100 capsule 3 - diaper,brief,adult,disposable Misc 1 application by Miscellaneous route 2 (two) times a day. 96 each 5 - escitalopram oxalate (Lexapro) 5 MG tablet Take 1 tablet (5 mg total) by mouth once daily. 30 tablet 0 - Flovent Diskus 250 mcg/actuation Disk with Device INHALE ONE PUFF BY MOUTH TWICE A DAY 60 each 3 - food supplemt, lactose-reduced (ENSURE) Liquid Drink 2 bottles per day. Patient requests strawberry. 64036 mL PRN - hydroCHLOROthiazide (HYDRODIURIL) 25 MG tablet Take 0.5 tablets (12.5 mg total) by mouth once daily. 45 tablet 1 - ibandronate (Boniva) 150 mg tablet Take 1 tablet (150 mg total) by mouth every 30 (thirty) days. Take sitting upright once mobnthly on empty stomach with glass of water , dont lay down or eat for full hour 3 tablet 4 - ipratropium-albuteroL (DUO-NEB) 0.5-2.5 mg/3 mL nebulizer INHALE 3 MILLILITERS INTO THE LUNGS FOUR TIMES A DAY 360 mL 1 - lisinopriL (PRINIVIL,ZESTRIL) 5 MG tablet Take 1 tablet (5 mg total) by mouth once daily. 90 tablet 1 - melatonin 3 mg Tablet Take 1 tablet (3 mg total) by mouth daily every night. 30 tablet 0 - methylPREDNISolone (Medrol, Nimo,) 4 mg tablet follow package directions 21 tablet 0 - misc[place] [facility] [place] for use for breathing problems for duo-nebs treatments 1 each 0 - miscellaneous medical [place] [facility] [place], tubing and filter for nebulizer machine to be changed every 3 months. 1 each 3 - naloxone 2 mg/actuation [place], Non-Aerosol 2 mg by Nasal route as needed. 1-2 daily PRN. Proceed to ER for evaluation immediately following use. 4 each 1 - omeprazole (PriLOSEC) 40 MG capsule TAKE ONE CAPSULE BY MOUTH DAILY 30 capsule 7 - ondansetron (Zofran ODT) [address] 1-2 tablets (4-8 mg total) under the tongue every 8 (eight) hours as needed for nausea / vomiting. 20 tablet 1 - oxyCODONE-acetaminophen (Percocet) 10-325 mg tablet Take 1 tablet by mouth every 6 (six) hours as needed for pain. To Last 30days. No early refills Max Daily Amount: 4 tablets 120 tablet 0 - potassium chloride (KLOR-CON) 10 MEQ CR tablet Take 2 tablets (20 mEq total) by mouth 2 (two) times a day. 360 tablet 1 - prazosin (MINIPRESS) 2 MG capsule TAKE THREE CAPSULES BY MOUTH EVERY EVENING 270 capsule 1 - predniSONE (DELTASONE) 20 MG tablet Take two pill once daily for 5 days then one pill daily for two days then one half pill daily for 2 days 13 tablet 0 - ProAir HFA 90 mcg/actuation inhaler INHALE TWO PUFFS BY MOUTH FOUR TIMES A DAY 8.5 g 11 - tiZANidine (ZANAFLEX) 4 MG tablet Take 4 mg by mouth 2 (two) times a day. - umeclidinium-vilanteroL (Anoro Ellipta) 62.5-25 mcg/actuation Disk with Device Inhale 1 puff into the lungs once daily. 1 each 6 - zinc gluconate 50 mg tablet Take 1 tablet (50 mg total) by mouth once daily. 30 tablet 0 No current facility-administered medications for this visit. ALLERGIES Allergies Allergen Reactions - Penicillins Anaphylaxis - Gabapentin Other (See Comments) severe fatigue - Sulfa (Sulfonamide Antibiotics) Other (See Comments) Blisters inside and outside of mouth. - Wellbutrin [Bupropion Hcl] Other (See Comments) Body numbness and tingling - Diazepam Nausea And Vomiting - Varenicline PHYSICAL EXAM Vital Signs: BP (!) 146/76 (BP Location: Right arm) Pulse 108 Wt 54.4 kg (120 lb) BMI 21.95 kg/m Constitutional: Well nourished, well groomed, NAD. CARDIAC: Regular Rate LUNGS: Breathing nonlabored, no wheezing Neurologic: Alert & oriented x 3, normal gait, no focal deficits noted. Psychiatric: Affect normal, judgment normal, mood normal. Other Affected BA/OS: Chronic Opiate Therapy Risk Mitigation: Risk Assessment Evaluation Assessment Morphine Equivalents 60 Date of Last UDS SOAPP-R Score Behavior Risks none Physical Risks none H/o Illegal Substance Abuse denies H/o Alcohol abuse denies OPIATE RISK ASSESSMENT: LOW (Routine medication monitoring, Annual UDS) Assessment is based treating physicians overall evaluation of multiple factors including MME load, age, comorbidity, medication profile, and social risk factors. The risks/benefits of chronic opiate therapy was discussed with patient including failure of therapy, psychological addiction, physiological dependence, and risk withdrawal syndrome. Warning symptoms of potential opiate overuse/overdose were discussed including sedation, somnolence, and altered mentation were reviewed and I counseled patient these symptoms can occur even when patient have been on a stable dose and also can happen despite following physicians instructions. Alternative therapies were discussed including: non-opiate medications, interventional pain procedures, and Cognitive Behavioral Therapy. After discussing these alternatives with the patient, the patient has opted to decline these alternatives at this time. Patient has tried and failed more conservative measures and were either ineffective or intolerant. In my medical opinion non-opiate therapy is not appropriate to address the patient's medical condition at this time and will continue chronic opiate therapy after having addressed efficacy, adverse side effects, and safety of therapy with the patient. The patient indicates understanding of these issues and agrees with the plan. LIFESTYLE COUNSELING: Time was spent discussing the importance of a home exercise program to promote strength, activity endurance and pain tolerance. Patient was also counseled on avoidance of tobacco products for general health as well as improved chronic pain control. ASSESSMENT AND PLAN Problem List Items Addressed This Visit Cervical radiculopathy Relevant Medications oxyCODONE-acetaminophen (Percocet) 10-325 mg tablet Failed back syndrome - Primary Relevant Medications oxyCODONE-acetaminophen (Percocet) 10-325 mg tablet Lumbar spondylosis Relevant Medications oxyCODONE-acetaminophen (Percocet) 10-325 mg tablet PLAN: 1. Patient is stable functional and meeting the goals of chronic opiate therapy without adverse side effects, misuse, or safety concerns. PDMP was reviewed without redflags or other concerns. 2. I counseled her on the importance of maintaining her activity and low-impact exercise such as walking on a daily basis to promote good health and improve chronic pain management. 3. I will resume her percocet to 10/325 qid and f/u in 4 weeks The patient indicates understanding of these issues and agrees with the plan. I reviewed the patient's medical information and medical history. I have reviewed the past medical, family, and social history sections including the medications and allergies listed in the above medical record. Patient was counseled that in my practice I do not prescribe chronic opiate therapy in the presence of ongoing illegal substance use. Patient was also counseled that drug screen testing is medically necessary from time to time to help stratify risks associated with chronic opiate therapy by assessing compliance with prescribed medications as well as to identify the presence of illegal substances. Consent for drug screen testing is required for continuation of chronic opiate therapy. Electronically signed by: Isaías Cardenas MD, 09/16/2021 9:46 AM ISAÍAS CARDENAS [facility] 2021-08-20 14:50:00 [facility] CHIEF COMPLAINT No chief complaint on file. SUBJECTIVE Ibis Tay is a 66 y.o. female who presents for follow-up of No chief complaint on file. with diagnosis of: 1. Problem List Items Addressed This Visit Cervical radiculopathy Relevant Medications oxyCODONE-acetaminophen (Percocet) 10-325 mg tablet Failed back syndrome Relevant Medications oxyCODONE-acetaminophen (Percocet) 10-325 mg tablet Lumbar spondylosis Relevant Medications oxyCODONE-acetaminophen (Percocet) 10-325 mg tablet Patient underwent LESI on 21She notes 50% improvement but continues with low back and joint pain Since patient's last encounter patient reports persistent chronic pain requiring ongoing treatment. Describes the pain as Sharp and Stabbing Patient rates their pain score 7/10 on average and is tolerable. Patient feels that the medication regimen does help maintain the function, mobility, activity tolerance and pain levels at a tolerable level. Patient states that medications changes or injections are not necessary today Patient states that the pain symptoms are stable. Patient denies new or changing pain complaints. Patient notes that the pain is worse with general activity and improved with rest. Patient 's current pain medication regimen has been reviewed with the patient and they note that the medication regimen is effective and reports that they are taking the medication regimen as prescribed. Patient denies running out of medication early or having an excess supply of medications. Other concerns: no new concerns at this time Patient's current pain medications has been reviewed and includes: DRUG FREQ Percocet qid qid Patient's most recent interventional procedures: PROCEDURE DATE % Relief & Duration Interlaminar Lumbar Epidural Steroid Injection L3 - L4 12/19/20 ROS Constitutional: denies dizziness, sedation, or somnolence Psychological: denies altered mentation or euphoria GI: denies significant constipation or diarrhea Musc: denies acute change in numbness, weakness, or tingling of extemities MEDICATIONS Current Outpatient Medications Medication Sig Dispense Refill - ALPRAZolam (XANAX) 1 MG tablet TAKE ONE HALF TABLET BY MOUTH FOUR TIMES A DAY NEEDED FOR ANXIETY 60 tablet 0 - azithromycin (ZITHROMAX) 250 MG tablet Take 2 tablets (500mg) by mouth on day one, then 1 tablet (250mg) by mouth daily on days 2 through 5. 6 tablet 0 - cholecalciferol (VITAMIN D3) 125 mcg (5,000 unit) capsule Take 1 capsule (5,000 Units total) by mouth once daily. 100 capsule 3 - diaper,brief,adult,disposable Misc 1 application by Miscellaneous route 2 (two) times a day. 96 each 5 - Flovent Diskus 250 mcg/actuation Disk with Device INHALE ONE PUFF BY MOUTH TWICE A DAY (Patient not taking: INHALE ONE PUFF BY MOUTH TWICE A DAY) 60 each 3 - food supplemt, lactose-reduced (ENSURE) Liquid Drink 2 bottles per day. Patient requests strawberry. 27485 mL PRN - hydroCHLOROthiazide (HYDRODIURIL) 25 MG tablet Take 0.5 tablets (12.5 mg total) by mouth once daily. 45 tablet 1 - ibandronate (Boniva) 150 mg tablet Take 1 tablet (150 mg total) by mouth every 30 (thirty) days. Take sitting upright once mobnthly on empty stomach with glass of water , dont lay down or eat for full hour 3 tablet 4 - ipratropium-albuteroL (DUO-NEB) 0.5-2.5 mg/3 mL nebulizer Inhale 3 mL into the lungs 4 (four) times a day. 360 vial 3 - lisinopriL (PRINIVIL,ZESTRIL) 5 MG tablet Take 1 tablet (5 mg total) by mouth once daily. 90 tablet 1 - methylPREDNISolone (Medrol, Nimo,) 4 mg tablet follow package directions 21 tablet 0 - [place] [facility] [place] for use for breathing problems for duo-nebs treatments 1 each 0 - misc[place] medical [place] [facility] [place], tubing and filter for nebulizer machine to be changed every 3 months. 1 each 3 - naloxone 2 mg/actuation [place], Non-Aerosol 2 mg by Nasal route as needed. 1-2 daily PRN. Proceed to ER for evaluation immediately following use. (Patient not taking: Reported on 08/03/2021 ) 4 each 1 - omeprazole (PriLOSEC) 40 MG capsule TAKE ONE CAPSULE BY MOUTH DAILY 30 capsule 7 - ondansetron (Zofran ODT) [address] 1-2 tablets (4-8 mg total) under the tongue every 8 (eight) hours as needed for nausea / vomiting. 20 tablet 1 - oxyCODONE-acetaminophen (Percocet) 10-325 mg tablet Take 1 tablet by mouth every 6 (six) hours as needed for pain. To Last 30days. No early refills Max Daily Amount: 4 tablets 120 tablet 0 - potassium chloride (KLOR-CON) 10 MEQ CR tablet Take 2 tablets (20 mEq total) by mouth 2 (two) times a day. 360 tablet 1 - prazosin (MINIPRESS) 2 MG capsule TAKE THREE CAPSULES BY MOUTH EVERY EVENING 270 capsule 1 - predniSONE (DELTASONE) 20 MG tablet Take two pill once daily for 5 days then one pill daily for two days then one half pill daily for 2 days (Patient not taking: Reported on 08/03/2021 ) 13 tablet 0 - ProAir HFA 90 mcg/actuation inhaler INHALE TWO PUFFS BY MOUTH FOUR TIMES A DAY 8.5 g 11 - umeclidinium-vilanteroL (Anoro Ellipta) 62.5-25 mcg/actuation Disk with Device Inhale 1 puff into the lungs once daily. 1 each 6 - zinc gluconate 50 mg tablet Take 1 tablet (50 mg total) by mouth once daily. 30 tablet 0 No current facility-administered medications for this visit. ALLERGIES Allergies Allergen Reactions - Penicillins Anaphylaxis - Gabapentin Other (See Comments) severe fatigue - Sulfa (Sulfonamide Antibiotics) Other (See Comments) Blisters inside and outside of mouth. - Wellbutrin [Bupropion Hcl] Other (See Comments) Body numbness and tingling - Diazepam Nausea And Vomiting - Varenicline PHYSICAL EXAM Vital Signs: BP 132/77 Pulse 96 Wt 55.8 kg (123 lb) BMI 22.50 kg/m Constitutional: Well nourished, well groomed, NAD. CARDIAC: Regular Rate LUNGS: Breathing nonlabored, no wheezing Neurologic: Alert & oriented x 3, normal gait, no focal deficits noted. Psychiatric: Affect normal, judgment normal, mood normal. Other Affected BA/OS: Chronic Opiate Therapy Risk Mitigation: Risk Assessment Evaluation Assessment Morphine Equivalents 60 Date of Last UDS SOAPP-R Score Behavior Risks none Physical Risks none H/o Illegal Substance Abuse denies H/o Alcohol abuse denies OPIATE RISK ASSESSMENT: LOW (Routine medication monitoring, Annual UDS) Assessment is based treating physicians overall evaluation of multiple factors including MME load, age, comorbidity, medication profile, and social risk factors. The risks/benefits of chronic opiate therapy was discussed with patient including failure of therapy, psychological addiction, physiological dependence, and risk withdrawal syndrome. Warning symptoms of potential opiate overuse/overdose were discussed including sedation, somnolence, and altered mentation were reviewed and I counseled patient these symptoms can occur even when patient have been on a stable dose and also can happen despite following physicians instructions. Alternative therapies were discussed including: non-opiate medications, interventional pain procedures, and Cognitive Behavioral Therapy. After discussing these alternatives with the patient, the patient has opted to decline these alternatives at this time. Patient has tried and failed more conservative measures and were either ineffective or intolerant. In my medical opinion non-opiate therapy is not appropriate to address the patient's medical condition at this time and will continue chronic opiate therapy after having addressed efficacy, adverse side effects, and safety of therapy with the patient. The patient indicates understanding of these issues and agrees with the plan. LIFESTYLE COUNSELING: Time was spent discussing the importance of a home exercise program to promote strength, activity endurance and pain tolerance. Patient was also counseled on avoidance of tobacco products for general health as well as improved chronic pain control. ASSESSMENT AND PLAN Problem List Items Addressed This Visit Cervical radiculopathy Relevant Medications oxyCODONE-acetaminophen (Percocet) 10-325 mg tablet Failed back syndrome Relevant Medications oxyCODONE-acetaminophen (Percocet) 10-325 mg tablet Lumbar spondylosis Relevant Medications oxyCODONE-acetaminophen (Percocet) 10-325 mg tablet PLAN: 1. Patient is stable functional and meeting the goals of chronic opiate therapy without adverse side effects, misuse, or safety concerns. PDMP was reviewed without redflags or other concerns. 2. I counseled her on the importance of maintaining her activity and low-impact exercise such as walking on a daily basis to promote good health and improve chronic pain management. 3. I will resume her percocet to 10/325 qid and f/u in 4 weeks The patient indicates understanding of these issues and agrees with the plan. I reviewed the patient's medical information and medical history. I have reviewed the past medical, family, and social history sections including the medications and allergies listed in the above medical record. Patient was counseled that in my practice I do not prescribe chronic opiate therapy in the presence of ongoing illegal substance use. Patient was also counseled that drug screen testing is medically necessary from time to time to help stratify risks associated with chronic opiate therapy by assessing compliance with prescribed medications as well as to identify the presence of illegal substances. Consent for drug screen testing is required for continuation of chronic opiate therapy. Electronically signed by: Isaías Cardenas MD, 08/20/2021 5:00 PM [facility] 2021-08-03 14:00:00 Patient Ibis anderson s consent to Mike Ann Jr., MD's use of Augmedix at today's visit. [facility] 2021-08-03 14:00:00 Subjective: Patient ID: Ibis Tay is a 66 y.o. female. Chief Complaint Patient presents with - Pain chest pain - Pain left side of body - exposure to covid 3 days ago nausea HPI The patient is a 66-year-old female presenting for an evaluation of a left-sided chest pain, which occurred at 3:00 a.m. today. She has a history of hypertension, hypercholesterolemia, gastroesophageal reflux disease, chronic obstructive pulmonary disease, stage 1 invasive adenocarcinoma of lung (in remission and status post left upper lobectomy on 10/11/[address] Angy Moore, cardiothoracic surgeon), and tobacco use (smokes 1 pack of cigarettes daily). The patient was woken up from her sleep by the chest pain, which was prominent inside the left breast and to the middle of the chest. She also developed associated nausea and a tingling sensation in her left arm that radiated to the neck. Her chest pain lasted for 10 minutes before resolving on its own. The patient did not have shortness of breath or diaphoresis. She also did not have an acid reflux. The patient did not not call for an ambulance as she did not want to go to the ER amid the recent surge in the COVID-19 cases. The patient was exposed to COVID-19 virus 3 days ago as one of her grandchildren had it. Since then, she has had rhinorrhea, increased cough, nausea, and temporal headache. The patient denies loss of sense of taste or smell. She is up-to-date with all 3 of her COVID-19 vaccines. The patient requests a Toradol injection for her headache. Review of Systems General: No weight gain or loss, no loss of appetite, no fever, no chills, no fatigue, no night sweats. Skin and lymphatics: No rashes, no skin discolorations, no easy bruising, no lymphadenopathy. Head: Positive for headaches. No dizziness, no masses, no seizures. Eyes: No visual changes, no eye pain. Ears: No tinnitus, no vertigo, no hearing loss. Nose: Positive for rhinorrhea. No nosebleeds, no sinus disease. Mouth and throat: Denies dental disease, no hoarseness, no throat pain. Respiratory: Positive for cough. No shortness of breath. Cardiovascular: Positive for chest pain. No orthopnea, no paroxysmal nocturnal dyspnea, or dyspnea on exertion, no claudication, no edema, no valvular disease. Gastrointestinal: Positive for nausea. No dysphagia, no abdominal pain, no vomiting, no hematemesis, no diarrhea, no constipation, no melena, no hematochezia. Genitourinary: No dysuria, no frequency, no hesitancy, no hematuria, no discharge. Musculoskeletal: No joint pain or swelling, no arthritis, no myalgias. Neuropsychiatric: No weakness, no seizures, no memory changes, no depression. Neurologic: Positive for headaches. No unilateral or bilateral numbness, tingling or weakness, no difficulty with speech, no vision changes, no problems with balance, denies dizziness. Objective: BP 122/64 (BP Location: Right arm, Patient Position: Sitting) Pulse 86 Temp 36.4 C (97.6 F) Resp 18 Wt 57.2 kg (126 lb) SpO2 92% BMI 23.05 kg/m Physical Exam Nursing note and vitals reviewed. Constitutional: Patient appears well-developed and well-nourished. No distress. Head: Normocephalic and atraumatic. Right Ear: External ear normal. No erythema. Bright tympanic membrane. Bony landmarks intact. Left Ear: External ear normal. No erythema. Bright tympanic membrane. Bony landmarks intact. Mouth/Throat: Tenderness to palpation at larynx. No oropharyngeal exudate. Neck: No JVD present. No tracheal deviation present. No thyromegaly present. Cardiovascular: Normal rate, regular rhythm, normal heart sounds and intact distal pulses. Exam reveals no gallop and no friction rub. No murmur heard. Pulmonary/Chest: Expiratory wheezes at left base. Effort normal. No respiratory distress. Patient has no rales. Patient exhibits no tenderness. Abdominal: Soft. Patient exhibits no distension and no mass. There is no tenderness to palpation. There is no rebound and no guarding. Musculoskeletal: Normal range of motion. Patient exhibits no edema and no tenderness. Skin: Skin is warm. No rash noted. Patient is not diaphoretic. No erythema. No pallor. Assessment/Plan: Problem List Items Addressed This Visit None Visit Diagnoses Exposure to COVID-19 virus - Primary Relevant Medications methylPREDNISolone (Medrol, Nimo,) 4 mg tablet azithromycin (ZITHROMAX) 250 MG tablet zinc gluconate 50 mg tablet Other Relevant Orders COVID-19 Chest pain in adult Relevant Orders ECG 12 lead Nicotine dependence with current use Acute non intractable tension-type headache Relevant Medications ketorolac (TORADOL) injection 60 mg (Completed) promethazine-dextromethorphan (PROMETHAZINE-DM) 6.25-15 mg/5 mL syrup Hypokalemia Relevant Orders BASIC METABOLIC PANEL 1. Chest pain in adult Obtained 12-lead electrocardiogram, which was normal. If the chest pain recurs or persists, I will order a cardiac stress test. - ECG 12 lead 2. Nicotine dependence with current use The patient was counseled on smoking cessation. 3. Exposure to COVID-19 virus Ordered COVID-19 test. We will call the patient with the result. The patient was prescribed Zithromax 250 mg 2 tablets on day 1 and 1 tablet from days 2-5 thereafter. She was also prescribed methylprednisolone 4 mg as directed. The patient was also prescribed Promethazine DM 5 mL 4 times daily as needed. - COVID-19 - methylPREDNISolone (Medrol, Nimo,) 4 mg tablet; follow package directions Dispense: 21 tablet; Refill: 0 - azithromycin (ZITHROMAX) 250 MG tablet; Take 2 tablets (500mg) by mouth on day one, then 1 tablet (250mg) by mouth daily on days 2 through 5. Dispense: 6 tablet; Refill: 0 - zinc gluconate 50 mg tablet; Take 1 tablet (50 mg total) by mouth once daily. Dispense: 30 tablet; Refill: 0 4. Acute non intractable tension-type headache The patient was administered Toradol 60 mg. - ketorolac (TORADOL) injection 60 mg - promethazine-dextromethorphan (PROMETHAZINE-DM) 6.25-15 mg/5 mL syrup; Take 5 mL by mouth 4 (four) times a day as needed for up to 7 days. Dispense: 240 mL; Refill: 0 5. Hypokalemia Ordered BMP. We will call the patient with the result. - BASIC METABOLIC PANEL The patient indicates understanding of these issues and agrees with the plan. I reviewed the patient's medical information and medical history. I have reviewed the past medical, family, and social history sections including the medications and allergies listed in the above medical record Mino Givens am scribing for and in the presence of Mike Ann Jr., MD. .I have read and agree with the documentation that has been completed regarding this visit and attest, that it is an accurate record of both my words and actions during the visit. . MIKE ANN JR, [facility] 2021-07-21 15:00:00 [facility] CHIEF COMPLAINT Back Pain (follow up med refill) SUBJECTIVE Ibis Tay is a 66 y.o. female who presents for follow-up of Back Pain (follow up med refill) with diagnosis of: 1. Problem List Items Addressed This Visit Cervical radiculopathy Relevant Medications oxyCODONE-acetaminophen (Percocet) 10-325 mg tablet Failed back syndrome - Primary Relevant Medications oxyCODONE-acetaminophen (Percocet) 10-325 mg tablet Lumbar spondylosis Relevant Medications oxyCODONE-acetaminophen (Percocet) 10-325 mg tablet Patient underwent LESI on 12-19-20She notes 50% improvement but continues with low back and joint pain Since patient's last encounter patient reports persistent chronic pain requiring ongoing treatment. Describes the pain as Sharp and Stabbing Patient rates their pain score 7/10 on average and is tolerable. Patient feels that the medication regimen does help maintain the function, mobility, activity tolerance and pain levels at a tolerable level. Patient states that medications changes or injections are not necessary today Patient states that the pain symptoms are stable. Patient denies new or changing pain complaints. Patient notes that the pain is worse with general activity and improved with rest. Patient 's current pain medication regimen has been reviewed with the patient and they note that the medication regimen is effective and reports that they are taking the medication regimen as prescribed. Patient denies running out of medication early or having an excess supply of medications. Other concerns: no new concerns at this time Patient's current pain medications has been reviewed and includes: DRUG FREQ Percocet 10/325 qid qid Patient's most recent interventional procedures: PROCEDURE DATE % Relief & Duration Interlaminar Lumbar Epidural Steroid Injection L3 - L4 12/19/20 ROS Constitutional: denies dizziness, sedation, or somnolence Psychological: denies altered mentation or euphoria GI: denies significant constipation or diarrhea Musc: denies acute change in numbness, weakness, or tingling of extemities MEDICATIONS Current Outpatient Medications Medication Sig Dispense Refill - ALPRAZolam (XANAX) 1 MG tablet TAKE 1/2 TABLET BY MOUTH FOUR TIMES A DAY NEEDED FOR ANXIETY 60 tablet 1 - cholecalciferol (VITAMIN D3) 125 mcg (5,000 unit) capsule Take 1 capsule (5,000 Units total) by mouth once daily. 100 capsule 3 - diaper,brief,adult,disposable Misc 1 application by Miscellaneous route 2 (two) times a day. 96 each 5 - Flovent Diskus 250 mcg/actuation Disk with Device INHALE ONE PUFF BY MOUTH TWICE A DAY 60 each 3 - food supplemt, lactose-reduced (ENSURE) Liquid Drink 2 bottles per day. Patient requests strawberry. 69036 mL PRN - hydroCHLOROthiazide (HYDRODIURIL) 25 MG tablet Take 0.5 tablets (12.5 mg total) by mouth once daily. 45 tablet 1 - ibandronate (Boniva) 150 mg tablet Take 1 tablet (150 mg total) by mouth every 30 (thirty) days. Take sitting upright once mobnthly on empty stomach with glass of water , dont lay down or eat for full hour 3 tablet 4 - ipratropium-albuteroL (DUO-NEB) 0.5-2.5 mg/3 mL nebulizer Inhale 3 mL into the lungs 4 (four) times a day. 360 vial 3 - lisinopriL (PRINIVIL,ZESTRIL) 5 MG tablet Take 1 tablet (5 mg total) by mouth once daily. 90 tablet 1 - misc[place] medical [place] [facility] [place] for use for breathing problems for duo-nebs treatments 1 each 0 - miscellaneous medical [place] [facility] [place], tubing and filter for nebulizer machine to be changed every 3 months. 1 each 3 - naloxone 2 mg/actuation [place], Non-Aerosol 2 mg by Nasal route as needed. 1-2 daily PRN. Proceed to ER for evaluation immediately following use. 4 each 1 - omeprazole (PriLOSEC) 40 MG capsule TAKE ONE CAPSULE BY MOUTH DAILY 30 capsule 7 - ondansetron (Zofran ODT) [address] 1-2 tablets (4-8 mg total) under the tongue every 8 (eight) hours as needed for nausea / vomiting. 20 tablet 1 - oxyCODONE-acetaminophen (Percocet) 10-325 mg tablet Take 1 tablet by mouth every 6 (six) hours as needed for pain. To Last 30days. No early refills Max Daily Amount: 4 tablets 120 tablet 0 - potassium chloride (KLOR-CON) 10 MEQ CR tablet Take 2 tablets (20 mEq total) by mouth 2 (two) times a day. 360 tablet 1 - prazosin (MINIPRESS) 2 MG capsule Take 3 capsules (6 mg total) by mouth every evening. 90 capsule 5 - predniSONE (DELTASONE) 20 MG tablet Take two pill once daily for 5 days then one pill daily for two days then one half pill daily for 2 days 13 tablet 0 - ProAir HFA 90 mcg/actuation inhaler INHALE TWO PUFFS BY MOUTH FOUR TIMES A DAY 8.5 g 11 - umeclidinium-vilanteroL (Anoro Ellipta) 62.5-25 mcg/actuation Disk with Device Inhale 1 puff into the lungs once daily. 1 each 6 No current facility-administered medications for this visit. ALLERGIES Allergies Allergen Reactions - Penicillins Anaphylaxis - Gabapentin Other (See Comments) severe fatigue - Sulfa (Sulfonamide Antibiotics) Other (See Comments) Blisters inside and outside of mouth. - Wellbutrin [Bupropion Hcl] Other (See Comments) Body numbness and tingling - Diazepam Nausea And Vomiting PHYSICAL EXAM Vital Signs: BP (!) 190/94 (BP Location: Right arm) Pulse 98 Wt 56.7 kg (125 lb) BMI 22.86 kg/m Constitutional: Well nourished, well groomed, NAD. CARDIAC: Regular Rate LUNGS: Breathing nonlabored, no wheezing Neurologic: Alert & oriented x 3, normal gait, no focal deficits noted. Psychiatric: Affect normal, judgment normal, mood normal. Other Affected BA/OS: Chronic Opiate Therapy Risk Mitigation: Risk Assessment Evaluation Assessment Morphine Equivalents 60 Date of Last UDS SOAPP-R Score Behavior Risks none Physical Risks none H/o Illegal Substance Abuse denies H/o Alcohol abuse denies OPIATE RISK ASSESSMENT: LOW (Routine medication monitoring, Annual UDS) Assessment is based treating physicians overall evaluation of multiple factors including MME load, age, comorbidity, medication profile, and social risk factors. The risks/benefits of chronic opiate therapy was discussed with patient including failure of therapy, psychological addiction, physiological dependence, and risk withdrawal syndrome. Warning symptoms of potential opiate overuse/overdose were discussed including sedation, somnolence, and altered mentation were reviewed and I counseled patient these symptoms can occur even when patient have been on a stable dose and also can happen despite following physicians instructions. Alternative therapies were discussed including: non-opiate medications, interventional pain procedures, and Cognitive Behavioral Therapy. After discussing these alternatives with the patient, the patient has opted to decline these alternatives at this time. Patient has tried and failed more conservative measures and were either ineffective or intolerant. In my medical opinion non-opiate therapy is not appropriate to address the patient's medical condition at this time and will continue chronic opiate therapy after having addressed efficacy, adverse side effects, and safety of therapy with the patient. The patient indicates understanding of these issues and agrees with the plan. LIFESTYLE COUNSELING: Time was spent discussing the importance of a home exercise program to promote strength, activity endurance and pain tolerance. Patient was also counseled on avoidance of tobacco products for general health as well as improved chronic pain control. ASSESSMENT AND PLAN Problem List Items Addressed This Visit Cervical radiculopathy Relevant Medications oxyCODONE-acetaminophen (Percocet) 10-325 mg tablet Failed back syndrome - Primary Relevant Medications oxyCODONE-acetaminophen (Percocet) 10-325 mg tablet Lumbar spondylosis Relevant Medications oxyCODONE-acetaminophen (Percocet) 10-325 mg tablet PLAN: 1. Patient is stable functional and meeting the goals of chronic opiate therapy without adverse side effects, misuse, or safety concerns. PDMP was reviewed without redflags or other concerns. 2. I counseled her on the importance of maintaining her activity and low-impact exercise such as walking on a daily basis to promote good health and improve chronic pain management. 3. I will resume her percocet to 10/325 qid and f/u in 4 weeks The patient indicates understanding of these issues and agrees with the plan. I reviewed the patient's medical information and medical history. I have reviewed the past medical, family, and social history sections including the medications and allergies listed in the above medical record. Patient was counseled that in my practice I do not prescribe chronic opiate therapy in the presence of ongoing illegal substance use. Patient was also counseled that drug screen testing is medically necessary from time to time to help stratify risks associated with chronic opiate therapy by assessing compliance with prescribed medications as well as to identify the presence of illegal substances. Consent for drug screen testing is required for continuation of chronic opiate therapy. Electronically signed by: Isaías Cardenas MD, 07/21/2021 3:22 PM [facility]AS CARDENA[facility] 2021-06-28 12:35:00 Subjective: Patient ID: Ibis Tay is a 66 y.o. female. Chief Complaint Patient presents with - Nausea Patient states unable to keep meds down, this morning. - Headache Patient states sevre WHITMAN and light headed. HPI Ibis comes in today for nausea. She has chronic cough, hx of non-small cell carcinoma of lung with lung resection. Goes in every 6 months to follow up with oncologist. Currently not on any treatment. She is having a hard time keeping her medications down, and would like anti-emetic. She got her oxycodone and xanax down at 3am, but unable to get her 9am meds down. Vomited this morning. Has felt stomach issues the past few days. Feels URI symptoms. She has had her COVID-19 and flu vaccines. No known exposures. Past Medical History: Diagnosis Date - Anxiety Takes Xanax - Arthritis - Breast mass 2013 rt axilla - Bronchitis - Bursitis Left hip - Cancer (HCC) left lung cancer, scheduled for left upper lobectomy at [facility] with Dr. Moore - Cervical radiculopathy sees Dr. Cardenas, gets cervical pain injections every 3 months, last done in - COPD (chronic obstructive pulmonary disease) ([facility]) - DDD (degenerative disc disease) - Depression dr. 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 pylori infection Hx of H pylori infection several months ago treated with medication, no current issues. - H/O pyloric stenosis - Hiatal hernia - HTN (hypertension) - Hypercholesteremia - Hyperlipidemia No current medications or issues. - OA (osteoarthritis) of knee - Oxygen desaturation at night 3.5 liter - Palpitations with anxiety - Peripheral vascular disease (HCC) 10/2020 abdominal pain-stricture liliac artery - Pneumonia 1994 resolved. - PONV (postoperative nausea and vomiting) - PTSD (post-traumatic stress disorder) son was murdered 8 years ago, followed by Dr. Milly Freire - Spinal stenosis cervical - Urinary incontinence - Wears dentures full set - Wears glasses Past Surgical History: Procedure Laterality Date - ESOPHAGEAL DILATION 2012 approx. done with upper endoscopy - KNEE ARTHROPLASTY Right 2010 - LUMBAR FUSION 1995 - LUNG LOBECTOMY Left 10/11/2017 Upper - CO INTRODUCTION CATHETER AORTA Right 11/03/2020 Procedure: ABDOMINAL AORTOGRAM; Surgeon: Imelda Swan MD; Location: [facility]; Service: Vascular - CO TOTAL KNEE ARTHROPLASTY Right 05/28/2014 Procedure: REPLACEMENT TOTAL JOINT KNEE RIGHT / BETO ; Surgeon: Isaak Moncada MD; Location: [facility] OR; Service: Orthopedics - SPINE SURGERY lumbar fusion - TENDON RELEASE Right arm - TOTAL HIP ARTHROPLASTY Left 09/26/14 hip hem-iarthoplasty - TOTAL KNEE ARTHROPLASTY Left 11/23 - TUBAL LIGATION Bilateral - UPPER GASTROINTESTINAL ENDOSCOPY 2012 approx. diagnosed with H. Pylori and esophagus dilated. - UPPER GASTROINTESTINAL ENDOSCOPY Allergies Allergen Reactions - Penicillins Anaphylaxis - Gabapentin Other (See Comments) severe fatigue - Sulfa (Sulfonamide Antibiotics) Other (See Comments) Blisters inside and outside of mouth. - Wellbutrin [Bupropion Hcl] Other (See Comments) Body numbness and tingling - Diazepam Nausea And Vomiting Current Outpatient Medications Medication Sig Dispense Refill - ALPRAZolam (XANAX) 1 MG tablet TAKE 1/2 TABLET BY MOUTH FOUR TIMES A DAY NEEDED FOR ANXIETY 60 tablet 1 - cholecalciferol (VITAMIN D3) 125 mcg (5,000 unit) capsule Take 1 capsule (5,000 Units total) by mouth once daily. 100 capsule 3 - diaper,brief,adult,disposable Misc 1 application by Miscellaneous route 2 (two) times a day. 96 each 5 - Flovent Diskus 250 mcg/actuation Disk with Device INHALE ONE PUFF BY MOUTH TWICE A DAY 60 each 3 - food supplemt, lactose-reduced (ENSURE) Liquid Drink 2 bottles per day. Patient requests strawberry. 18024 mL PRN - hydroCHLOROthiazide (HYDRODIURIL) 25 MG tablet Take 0.5 tablets (12.5 mg total) by mouth once daily. 45 tablet 1 - ibandronate (Boniva) 150 mg tablet Take 1 tablet (150 mg total) by mouth every 30 (thirty) days. Take sitting upright once mobnthly on empty stomach with glass of water , dont lay down or eat for full hour 3 tablet 4 - ipratropium-albuteroL (DUO-NEB) 0.5-2.5 mg/3 mL nebulizer Inhale 3 mL into the lungs 4 (four) times a day. 360 vial 3 - lisinopriL (PRINIVIL,ZESTRIL) 5 MG tablet Take 1 tablet (5 mg total) by mouth once daily. 90 tablet 1 - [place] [facility] [place] for use for breathing problems for duo-nebs treatments 1 each 0 - misc[place] medical [place] [facility] [place], tubing and filter for nebulizer machine to be changed every 3 months. 1 each 3 - naloxone 2 mg/actuation [place], Non-Aerosol 2 mg by Nasal route as needed. 1-2 daily PRN. Proceed to ER for evaluation immediately following use. 4 each 1 - omeprazole (PriLOSEC) 40 MG capsule TAKE ONE CAPSULE BY MOUTH DAILY 30 capsule 7 - ondansetron (Zofran ODT) [address] 1-2 tablets (4-8 mg total) under the tongue every 8 (eight) hours as needed for nausea / vomiting. 20 tablet 1 - oxyCODONE-acetaminophen (Percocet) 10-325 mg tablet Take 1 tablet by mouth every 6 (six) hours as needed for pain. To Last 30days. No early refills Max Daily Amount: 4 tablets 120 tablet 0 - potassium chloride (KLOR-CON) 10 MEQ CR tablet Take 2 tablets (20 mEq total) by mouth 2 (two) times a day. 360 tablet 1 - prazosin (MINIPRESS) 2 MG capsule Take 3 capsules (6 mg total) by mouth every evening. 90 capsule 5 - predniSONE (DELTASONE) 20 MG tablet Take two pill once daily for 5 days then one pill daily for two days then one half pill daily for 2 days 13 tablet 0 - ProAir HFA 90 mcg/actuation inhaler INHALE TWO PUFFS BY MOUTH FOUR TIMES A DAY 8.5 g 11 - tiZANidine (ZANAFLEX) 4 MG tablet Take 1 tablet (4 mg total) by mouth 2 (two) times a day for 30 days. 60 tablet 5 - umeclidinium-vilanteroL (Anoro Ellipta) 62.5-25 mcg/actuation Disk with Device Inhale 1 puff into the lungs once daily. 1 each 6 No current facility-administered medications for this visit. Review of Systems Constitutional: Positive for fatigue. Negative for chills, diaphoresis and fever. HENT: Positive for congestion, postnasal drip and rhinorrhea. Negative for ear pain, sinus pressure, sinus pain, sore throat and trouble swallowing. Respiratory: Positive for cough (chronic). Negative for chest tightness, shortness of breath and wheezing. Cardiovascular: Negative for chest pain and palpitations. Gastrointestinal: Positive for nausea. Musculoskeletal: Negative for myalgias. Skin: Negative for rash. Neurological: Positive for dizziness and headaches. Negative for weakness. Hematological: Negative for adenopathy. Objective: BP 130/72 Pulse 89 Temp 36.1 C (97 F) (Temporal Artery (forehead)) Resp 22 Ht 157.5 cm (5' 2) Wt 56.9 kg (125 lb 8 oz) SpO2 96% BMI 22.95 kg/m Physical Exam Vitals and nursing note reviewed. Constitutional: Appearance: Normal appearance. She is well-developed. HENT: Head: Normocephalic and atraumatic. Right Ear: Hearing, tympanic membrane and ear canal normal. Tympanic membrane is not erythematous or bulging. Left Ear: Hearing, tympanic membrane and ear canal normal. Tympanic membrane is not erythematous or bulging. Nose: Mucosal edema and rhinorrhea present. Rhinorrhea is clear. Right Sinus: No maxillary sinus tenderness or frontal sinus tenderness. Left Sinus: No maxillary sinus tenderness or frontal sinus tenderness. Mouth/Throat: Mouth: Mucous membranes are moist. Dentition: Normal dentition. Pharynx: No oropharyngeal exudate or posterior oropharyngeal erythema (appearance of drainage). Cardiovascular: Rate and Rhythm: Normal rate and regular rhythm. Heart sounds: Normal heart sounds. Pulmonary: Effort: Pulmonary effort is normal. No respiratory distress. Breath sounds: Normal breath sounds. No wheezing or rales. Comments: Rare coughing fits- wet sounding Musculoskeletal: Cervical back: Normal range of motion and neck supple. Lymphadenopathy: Cervical: No cervical adenopathy. Skin: General: Skin is warm and dry. Findings: No erythema or rash. Neurological: Mental Status: She is alert and oriented to person, place, and time. Psychiatric: Behavior: Behavior normal. Thought Content: Thought content normal. Judgment: Judgment normal. Assessment/Plan: Tested for flu--- negative. Testing for COVID-19 as well. Will have her isolate until we get results. If positive-CDC recommends self quarantine for 10 days from the start of symptoms for anyone experiencing: fever or chills, cough, shortness of breath or difficulty breathing, fatigue, muscle or body aches, headache, new loss of taste or smell, sore throat, congestion or runny nose, nausea or vomiting, diarrhea. You must also be fever free for 24 hours before returning to the public. She would qualify for monoclonal antibody therapy if she is positive- so would recommend this when we get results. Zofran 4 mg sublingal given today in clinic, along with 60 mg IM toradol for her headache. She's had both before and did well- reports they were helping symptoms after she waited 10-15 minute for monitoring. Push fluids, cotninue zofran q8h PRN for nausea at home. Ok for OTC meds based on symptoms. If she feels any worsening-- she is to head to ER immediately. She understood our plan and agrees. She will also f/u with PCP Dr Ann. 1. Acute intractable headache, unspecified headache type - ketorolac (TORADOL) injection 60 mg 2. Flu-like symptoms - POCT Nidia Influenza A+B 3. Suspected COVID-19 virus infection - COVID-19 4. Nausea - ondansetron (ZOFRAN-ODT) disintegrating tablet Medication Review: Current and new medications, if applicable, were discussed in terms of risk/benefits, efficacy, common side effects, or follow-up if needed. Patient compliance to medication was confirmed. Any barriers to implementing the plan of care were addressed: None Medication Educational handouts were given if appropriate to help educate the patient All medications were reviewed. All medication side effects were discussed. Risks and benefits of treatment plan were reviewed. Patient understood and made informed consent. Patient was told to call our office for any test results or medication questions. Thank you for letting me participate in your care today. . [facility] 2021-06-16 15:40:00 [facility] CHIEF COMPLAINT Back Pain (follow up med refill ) SUBJECTIVE Ibis Tay is a 66 y.o. female who presents for follow-up of Back Pain (follow up med refill ) with diagnosis of: 1. Problem List Items Addressed This Visit Cervical radiculopathy Relevant Medications oxyCODONE-acetaminophen (Percocet) 10-325 mg tablet Failed back syndrome - Primary Relevant Medications oxyCODONE-acetaminophen (Percocet) 10-325 mg tablet Lumbar spondylosis Relevant Medications oxyCODONE-acetaminophen (Percocet) 10-325 mg tablet Patient underwent LESI on 12-19-20She notes 50% improvement but continues with low back and joint pain Since patient's last encounter patient reports persistent chronic pain requiring ongoing treatment. Describes the pain as Sharp and Stabbing Patient rates their pain score 7/10 on average and is tolerable. Patient feels that the medication regimen does help maintain the function, mobility, activity tolerance and pain levels at a tolerable level. Patient states that medications changes or injections are not necessary today Patient states that the pain symptoms are stable. Patient denies new or changing pain complaints. Patient notes that the pain is worse with general activity and improved with rest. Patient 's current pain medication regimen has been reviewed with the patient and they note that the medication regimen is effective and reports that they are taking the medication regimen as prescribed. Patient denies running out of medication early or having an excess supply of medications. Other concerns: no new concerns at this time Patient's current pain medications has been reviewed and includes: DRUG FREQ Percocet 10/325 qid qid Patient's most recent interventional procedures: PROCEDURE DATE % Relief & Duration Interlaminar Lumbar Epidural Steroid Injection L3 - L4 12/19/20 ROS Constitutional: denies dizziness, sedation, or somnolence Psychological: denies altered mentation or euphoria GI: denies significant constipation or diarrhea Musc: denies acute change in numbness, weakness, or tingling of extemities MEDICATIONS Current Outpatient Medications Medication Sig Dispense Refill - ALPRAZolam (Xanax) 1 MG tablet Take 1/2 tab (0.5mg) four times daily as needed for anxiety 60 tablet 2 - cholecalciferol (VITAMIN D3) 125 mcg (5,000 unit) capsule Take 1 capsule (5,000 Units total) by mouth once daily. 100 capsule 3 - diaper,brief,adult,disposable Misc 1 application by Miscellaneous route 2 (two) times a day. 96 each 5 - Flovent Diskus 250 mcg/actuation Disk with Device INHALE ONE PUFF BY MOUTH TWICE A DAY 60 each 3 - food supplemt, lactose-reduced (ENSURE) Liquid Drink 2 bottles per day. Patient requests strawberry. 08198 mL PRN - hydroCHLOROthiazide (HYDRODIURIL) 25 MG tablet Take 0.5 tablets (12.5 mg total) by mouth once daily. 45 tablet 1 - ibandronate (Boniva) 150 mg tablet Take 1 tablet (150 mg total) by mouth every 30 (thirty) days. Take sitting upright once mobnthly on empty stomach with glass of water , dont lay down or eat for full hour 3 tablet 4 - ipratropium-albuteroL (DUO-NEB) 0.5-2.5 mg/3 mL nebulizer Inhale 3 mL into the lungs 4 (four) times a day. 360 vial 3 - lisinopriL (PRINIVIL,ZESTRIL) 5 MG tablet Take 1 tablet (5 mg total) by mouth once daily. 90 tablet 1 - misc[place] [facility] [place] for use for breathing problems for duo-nebs treatments 1 each 0 - miscellaneous medical [place] [facility] [place], tubing and filter for nebulizer machine to be changed every 3 months. 1 each 3 - naloxone 2 mg/actuation [place], Non-Aerosol 2 mg by Nasal route as needed. 1-2 daily PRN. Proceed to ER for evaluation immediately following use. 4 each 1 - omeprazole (PriLOSEC) 40 MG capsule TAKE ONE CAPSULE BY MOUTH DAILY 30 capsule 7 - ondansetron (Zofran ODT) [address] 1-2 tablets (4-8 mg total) under the tongue every 8 (eight) hours as needed for nausea / vomiting. 20 tablet 1 - oxyCODONE-acetaminophen (Percocet) 10-325 mg tablet Take 1 tablet by mouth every 6 (six) hours as needed for pain. To Last 30days. No early refills Max Daily Amount: 4 tablets 120 tablet 0 - potassium chloride (KLOR-CON) 10 MEQ CR tablet Take 2 tablets (20 mEq total) by mouth 2 (two) times a day. 360 tablet 1 - prazosin (MINIPRESS) 2 MG capsule Take 3 capsules (6 mg total) by mouth every evening. 90 capsule 5 - predniSONE (DELTASONE) 20 MG tablet Take two pill once daily for 5 days then one pill daily for two days then one half pill daily for 2 days 13 tablet 0 - ProAir HFA 90 mcg/actuation inhaler INHALE TWO PUFFS BY MOUTH FOUR TIMES A DAY 8.5 g 11 - umeclidinium-vilanteroL (Anoro Ellipta) 62.5-25 mcg/actuation Disk with Device Inhale 1 puff into the lungs once daily. 1 each 6 No current facility-administered medications for this visit. ALLERGIES Allergies Allergen Reactions - Penicillins Anaphylaxis - Gabapentin Other (See Comments) severe fatigue - Sulfa (Sulfonamide Antibiotics) Other (See Comments) Blisters inside and outside of mouth. - Wellbutrin [Bupropion Hcl] Other (See Comments) Body numbness and tingling - Diazepam Nausea And Vomiting PHYSICAL EXAM Vital Signs: BP (!) 160/106 (BP Location: Right arm) Pulse 96 Wt 55.8 kg (123 lb) BMI 22.49 kg/m Constitutional: Well nourished, well groomed, NAD. CARDIAC: Regular Rate LUNGS: Breathing nonlabored, no wheezing Neurologic: Alert & oriented x 3, normal gait, no focal deficits noted. Psychiatric: Affect normal, judgment normal, mood normal. Other Affected BA/OS: Chronic Opiate Therapy Risk Mitigation: Risk Assessment Evaluation Assessment Morphine Equivalents 60 Date of Last UDS SOAPP-R Score Behavior Risks none Physical Risks none H/o Illegal Substance Abuse denies H/o Alcohol abuse denies OPIATE RISK ASSESSMENT: LOW (Routine medication monitoring, Annual UDS) Assessment is based treating physicians overall evaluation of multiple factors including MME load, age, comorbidity, medication profile, and social risk factors. The risks/benefits of chronic opiate therapy was discussed with patient including failure of therapy, psychological addiction, physiological dependence, and risk withdrawal syndrome. Warning symptoms of potential opiate overuse/overdose were discussed including sedation, somnolence, and altered mentation were reviewed and I counseled patient these symptoms can occur even when patient have been on a stable dose and also can happen despite following physicians instructions. Alternative therapies were discussed including: non-opiate medications, interventional pain procedures, and Cognitive Behavioral Therapy. After discussing these alternatives with the patient, the patient has opted to decline these alternatives at this time. Patient has tried and failed more conservative measures and were either ineffective or intolerant. In my medical opinion non-opiate therapy is not appropriate to address the patient's medical condition at this time and will continue chronic opiate therapy after having addressed efficacy, adverse side effects, and safety of therapy with the patient. The patient indicates understanding of these issues and agrees with the plan. LIFESTYLE COUNSELING: Time was spent discussing the importance of a home exercise program to promote strength, activity endurance and pain tolerance. Patient was also counseled on avoidance of tobacco products for general health as well as improved chronic pain control. ASSESSMENT AND PLAN Problem List Items Addressed This Visit Cervical radiculopathy Relevant Medications oxyCODONE-acetaminophen (Percocet) 10-325 mg tablet Failed back syndrome - Primary Relevant Medications oxyCODONE-acetaminophen (Percocet) 10-325 mg tablet Lumbar spondylosis Relevant Medications oxyCODONE-acetaminophen (Percocet) 10-325 mg tablet PLAN: 1. Patient is stable functional and meeting the goals of chronic opiate therapy without adverse side effects, misuse, or safety concerns. PDMP was reviewed without redflags or other concerns. 2. I counseled her on the importance of maintaining her activity and low-impact exercise such as walking on a daily basis to promote good health and improve chronic pain management. 3. I will resume her percocet to 10/325 qid and f/u in 4 weeks The patient indicates understanding of these issues and agrees with the plan. I reviewed the patient's medical information and medical history. I have reviewed the past medical, family, and social history sections including the medications and allergies listed in the above medical record. Patient was counseled that in my practice I do not prescribe chronic opiate therapy in the presence of ongoing illegal substance use. Patient was also counseled that drug screen testing is medically necessary from time to time to help stratify risks associated with chronic opiate therapy by assessing compliance with prescribed medications as well as to identify the presence of illegal substances. Consent for drug screen testing is required for continuation of chronic opiate therapy. Electronically signed by: Isaías Cardenas MD, 06/16/2021 4:05 PM [facility] 2021-05-14 13:50:00 [facility] CHIEF COMPLAINT Back Pain (follow up med refill) SUBJECTIVE Ibis Tay is a 66 y.o. female who presents for follow-up of Back Pain (follow up med refill) with diagnosis of: 1. Problem List Items Addressed This Visit Cervical radiculopathy Failed back syndrome Lumbar spondylosis Other Visit Diagnoses Chronic, continuous use of opioids - Primary Patient underwent LESI on 12-19-20She notes 50% improvement but continues with low back and joint pain Since patient's last encounter patient reports persistent chronic pain requiring ongoing treatment. Describes the pain as Sharp and Stabbing Patient rates their pain score 7/10 on average and is tolerable. Patient feels that the medication regimen does help maintain the function, mobility, activity tolerance and pain levels at a tolerable level. Patient states that medications changes or injections are not necessary today Patient states that the pain symptoms are stable. Patient denies new or changing pain complaints. Patient notes that the pain is worse with general activity and improved with rest. Patient 's current pain medication regimen has been reviewed with the patient and they note that the medication regimen is effective and reports that they are taking the medication regimen as prescribed. Patient denies running out of medication early or having an excess supply of medications. Other concerns: no new concerns at this time Patient's current pain medications has been reviewed and includes: DRUG FREQ Percocet qid qid Patient's most recent interventional procedures: PROCEDURE DATE % Relief & Duration Interlaminar Lumbar Epidural Steroid Injection L3 - L4 12/19/20 ROS Constitutional: denies dizziness, sedation, or somnolence Psychological: denies altered mentation or euphoria GI: denies significant constipation or diarrhea Musc: denies acute change in numbness, weakness, or tingling of extemities MEDICATIONS Current Outpatient Medications Medication Sig Dispense Refill - ALPRAZolam (Xanax) 1 MG tablet Take 1/2 tab (0.5mg) four times daily as needed for anxiety 60 tablet 2 - cholecalciferol (VITAMIN D3) 125 mcg (5,000 unit) capsule Take 1 capsule (5,000 Units total) by mouth once daily. 100 capsule 3 - diaper,brief,adult,disposable Misc 1 application by Miscellaneous route 2 (two) times a day. 96 each 5 - Flovent Diskus 250 mcg/actuation Disk with Device INHALE ONE PUFF BY MOUTH TWICE A DAY 60 each 3 - food supplemt, lactose-reduced (ENSURE) Liquid Drink 2 bottles per day. Patient requests strawberry. 66565 mL PRN - hydroCHLOROthiazide (HYDRODIURIL) 25 MG tablet Take 0.5 tablets (12.5 mg total) by mouth once daily. 45 tablet 1 - ibandronate (Boniva) 150 mg tablet Take 1 tablet (150 mg total) by mouth every 30 (thirty) days. Take sitting upright once mobnthly on empty stomach with glass of water , dont lay down or eat for full hour 3 tablet 4 - ipratropium-albuteroL (DUO-NEB) 0.5-2.5 mg/3 mL nebulizer Inhale 3 mL into the lungs 4 (four) times a day. 360 vial 3 - lisinopriL (PRINIVIL,ZESTRIL) 5 MG tablet TAKE ONE TABLET BY MOUTH DAILY 30 tablet 4 - misc[place] [facility] [place] for use for breathing problems for duo-nebs treatments 1 each 0 - misc[place] medical [place] [facility] [place], tubing and filter for nebulizer machine to be changed every 3 months. 1 each 3 - naloxone 2 mg/actuation [place], Non-Aerosol 2 mg by Nasal route as needed. 1-2 daily PRN. Proceed to ER for evaluation immediately following use. 4 each 1 - omeprazole (PriLOSEC) 40 MG capsule TAKE ONE CAPSULE BY MOUTH DAILY 30 capsule 7 - ondansetron (Zofran ODT) [address] 1-2 tablets (4-8 mg total) under the tongue every 8 (eight) hours as needed for nausea / vomiting. 20 tablet 1 - oxyCODONE-acetaminophen (Percocet) 10-325 mg tablet Take 1 tablet by mouth every 6 (six) hours as needed for pain. To Last 30days. No early refills Max Daily Amount: 4 tablets 120 tablet 0 - potassium chloride (KLOR-CON) 10 MEQ CR tablet TAKE TWO TABLETS BY MOUTH TWICE A DAY 120 tablet 4 - prazosin (MINIPRESS) 2 MG capsule Take 3 capsules (6 mg total) by mouth every evening. 90 capsule 5 - predniSONE (DELTASONE) 20 MG tablet Take two pill once daily for 5 days then one pill daily for two days then one half pill daily for 2 days 13 tablet 0 - ProAir HFA 90 mcg/actuation inhaler INHALE TWO PUFFS BY MOUTH FOUR TIMES A DAY 8.5 g 11 - umeclidinium-vilanteroL (Anoro Ellipta) 62.5-25 mcg/actuation Disk with Device Inhale 1 puff into the lungs once daily. 1 each 6 No current facility-administered medications for this visit. ALLERGIES Allergies Allergen Reactions - Penicillins Anaphylaxis - Gabapentin Other (See Comments) severe fatigue - Sulfa (Sulfonamide Antibiotics) Other (See Comments) Blisters inside and outside of mouth. - Wellbutrin [Bupropion Hcl] Other (See Comments) Body numbness and tingling - Diazepam Nausea And Vomiting PHYSICAL EXAM Vital Signs: BP 122/77 (BP Location: Right arm) Pulse 99 Wt 54 kg (119 lb) BMI 21.76 kg/m Constitutional: Well nourished, well groomed, NAD. CARDIAC: Regular Rate LUNGS: Breathing nonlabored, no wheezing Neurologic: Alert & oriented x 3, normal gait, no focal deficits noted. Psychiatric: Affect normal, judgment normal, mood normal. Other Affected BA/OS: Chronic Opiate Therapy Risk Mitigation: Risk Assessment Evaluation Assessment Morphine Equivalents 60 Date of Last UDS SOAPP-R Score Behavior Risks none Physical Risks none H/o Illegal Substance Abuse denies H/o Alcohol abuse denies OPIATE RISK ASSESSMENT: LOW (Routine medication monitoring, Annual UDS) Assessment is based treating physicians overall evaluation of multiple factors including MME load, age, comorbidity, medication profile, and social risk factors. The risks/benefits of chronic opiate therapy was discussed with patient including failure of therapy, psychological addiction, physiological dependence, and risk withdrawal syndrome. Warning symptoms of potential opiate overuse/overdose were discussed including sedation, somnolence, and altered mentation were reviewed and I counseled patient these symptoms can occur even when patient have been on a stable dose and also can happen despite following physicians instructions. Alternative therapies were discussed including: non-opiate medications, interventional pain procedures, and Cognitive Behavioral Therapy. After discussing these alternatives with the patient, the patient has opted to decline these alternatives at this time. Patient has tried and failed more conservative measures and were either ineffective or intolerant. In my medical opinion non-opiate therapy is not appropriate to address the patient's medical condition at this time and will continue chronic opiate therapy after having addressed efficacy, adverse side effects, and safety of therapy with the patient. The patient indicates understanding of these issues and agrees with the plan. LIFESTYLE COUNSELING: Time was spent discussing the importance of a home exercise program to promote strength, activity endurance and pain tolerance. Patient was also counseled on avoidance of tobacco products for general health as well as improved chronic pain control. ASSESSMENT AND PLAN Problem List Items Addressed This Visit Cervical radiculopathy Failed back syndrome Lumbar spondylosis Other Visit Diagnoses Chronic, continuous use of opioids - Primary PLAN: 1. Patient is stable functional and meeting the goals of chronic opiate therapy without adverse side effects, misuse, or safety concerns. PDMP was reviewed without redflags or other concerns. 2. I counseled her on the importance of maintaining her activity and low-impact exercise such as walking on a daily basis to promote good health and improve chronic pain management. 3. I will resume her percocet to 10/325 qid and f/u in 4 weeks The patient indicates understanding of these issues and agrees with the plan. I reviewed the patient's medical information and medical history. I have reviewed the past medical, family, and social history sections including the medications and allergies listed in the above medical record. Patient was counseled that in my practice I do not prescribe chronic opiate therapy in the presence of ongoing illegal substance use. Patient was also counseled that drug screen testing is medically necessary from time to time to help stratify risks associated with chronic opiate therapy by assessing compliance with prescribed medications as well as to identify the presence of illegal substances. Consent for drug screen testing is required for continuation of chronic opiate therapy. Electronically signed by: Isaías Cardenas MD, 05/14/2021 2:00 PM [facility] 2021-04-16 15:30:00 Patient, Ibis anderson s consent to Mike Ann Jr., MD's use of Augmedix at today's visit. 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 SHAN OLIVIA [facility] 2021-04-16 15:30:00 Subjective: Patient ID: Ibis Tay is a 66 y.o. female. Chief Complaint Patient presents with - Cyst Removal of some all over the body. - Abrasion Right leg dog scratched it and it may be infected. - Immunizations Wanting flu shot and toradol. HPI The patient is a 66-year-old female presenting for cryotherapy for multiple seborrheic keratoses, which were noted at her last visit on 04/03/2021. The patient was advised to schedule an appointment for getting those frozen. She noticed the raised lesions recently. The patient claims to have had a fair amount of sun exposure in her younger years, but she tries to keep her skin protected using SPF-50 agents. The patient denies having a history of skin cancer. The patient requests her right leg to be evaluated for an infection. She states that 2 days ago, her dog scratched her right leg, which was covered under the blanket that the dog was originally scratching. She believes the scratched area has worsened and has become sore. The patient has tried hydrogen peroxide without much effect. Patient has a history of hypertension. She continues on HydroDIURIL 25 mg half tablet once daily and lisinopril 5 mg 1 tablet once daily. Her blood pressure today is 140/88. She is trying to follow a low-salt diet, walk 30 minutes 5 times weekly, and denies chest pain, shortness of breath, or lower extremity swelling at present and does not need refills of her blood pressure medications. The patient notes having a daily headache, which she feels is worse today. She describes the headache as throbbing. The patient denies nausea or light sensitivity. She is not on agents like Topamax. The patient does not have a history of migraine. Review of Systems General: No weight gain or loss, no loss of appetite, no fever, no chills, no fatigue, no night sweats. Skin and lymphatics: Positive for seborrheic keratoses and right leg scratch. No rashes, no skin discolorations, no easy bruising, no lymphadenopathy. Head: Positive for headaches. No dizziness, no masses, no seizures. Eyes: No visual changes, no eye pain. Ears: No tinnitus, no vertigo, no hearing loss. Nose: No nosebleeds, no discharge, no sinus disease. Mouth and throat: Denies dental disease, no hoarseness, no throat pain. Respiratory: No cough, no shortness of breath, no sputum production. Cardiovascular: No chest pain, no orthopnea, no paroxysmal nocturnal dyspnea, or dyspnea on exertion, no claudication, no edema, no valvular disease. Gastrointestinal: No dysphagia, no abdominal pain, no nausea, no vomiting, no hematemesis, no diarrhea, no constipation, no melena, no hematochezia. Genitourinary: No dysuria, no frequency, no hesitancy, no hematuria, no discharge. Musculoskeletal: No joint pain or swelling, no arthritis, no myalgias. Neuropsychiatric: No weakness, no seizures, no memory changes, no depression. Neurologic: Positive for headaches. No unilateral or bilateral numbness, tingling or weakness, no difficulty with speech, no vision changes, no problems with balance, denies dizziness. Objective: BP (!) 140/88 (BP Location: Left arm, Patient Position: Sitting) Pulse 109 Temp 36.1 C (96.9 F) (Temporal Artery (forehead)) Resp 20 Ht 157.5 cm (5' 2.01) Wt 53.8 kg (118 lb 11.2 oz) SpO2 95% BMI 21.70 kg/m Physical Exam Nursing note and vitals reviewed. Constitutional: Patient appears well-developed and well-nourished. No distress. Head: Normocephalic and atraumatic. Right Ear: External ear normal. No erythema. Bright tympanic membrane. Bony landmarks intact. Left Ear: External ear normal. No erythema. Bright tympanic membrane. Bony landmarks intact. Mouth/Throat: No oropharyngeal exudate. Neck: No JVD present. No tracheal deviation present. No thyromegaly present. Cardiovascular: Normal rate, regular rhythm, normal heart sounds and intact distal pulses. Exam reveals no gallop and no friction rub. No murmur heard. Pulmonary/Chest: Effort normal. No respiratory distress. Patient has no wheezes. Patient has no rales. Patient exhibits no tenderness. Abdominal: Soft. Patient exhibits no distension and no mass. There is no tenderness to palpation. There is no rebound and no guarding. Musculoskeletal: Normal range of motion. Patient exhibits no edema and no tenderness. Skin: She has 0.5 cm seborrheic keratosis at the inside aspect of the left breast. She has a 2.7 cm x 1.5 cm localized cellulitis at the right leg. She has 0.6 cm and 0.7 cm [id number], slightly elevated, and regular margin lesions at the inside aspect left breast. She has a 0.5 cm pale lesion underneath her left shoulder blade. She has another seborrheic keratosis at the midline of back. Skin is warm. No rash noted. Patient is not diaphoretic. No erythema. No pallor. Procedure: Using sterile technique, I froze (x3) the the four 0.2 cm lesions on the left side of her face along the hairline and the lesions were elevated and pale lesion. I also froze three 2-3 mm pale and slightly elevarted lesions on the left armpit and let them thaw in-between. The patient tolerated the procedure well. Assessment/Plan: Problem List Items Addressed This Visit Essential hypertension Other Visit Diagnoses Seborrheic keratoses - Primary Cellulitis of right lower extremity Relevant Medications cephalexin (KEFLEX) 500 MG capsule New daily persistent headache Relevant Medications ketorolac (TORADOL) injection 60 mg (Completed) (Start on 04/16/2021 5:15 PM) 1. Seborrheic keratoses The patient tolerated the cryotherapy well. She will be referred to Dermatology should her lesions recur. 2. Cellulitis of right lower extremity The patient was prescribed Keflex 500 mg 1 capsule 3 times daily. - cephalexin (KEFLEX) 500 MG capsule; Take 1 capsule (500 mg total) by mouth 3 (three) times a day for 7 days. Dispense: 30 capsule; Refill: 0 3. Essential hypertension Continue current medication therapy. Goal blood pressure below 140/90. Follow low-salt diet as well as Dash Diet suggestions, aerobic exercise 30 minutes 5x weekly, keep weight close to ideal. 4. Headache in front of head patient with history of recurrent headache is not new for her its not the worst headache of her life neurologic exam was nonfocal give her Toradol shot x1 The patient was administered Toradol 60 mg. - ketorolac (TORADOL) injection 60 mg The patient indicates understanding of these issues and agrees with the plan. I reviewed the patient's medical information and medical history. I have reviewed the past medical, family, and social history sections including the medications and allergies listed in the above medical record I, Mino Garcia, am scribing for and in the presence of Mike Ann Jr., MD. .I have read and agree with the documentation that has been completed regarding this visit and attest, that it is an accurate record of both my words and actions during the visit. . MIKE ANN JR [facility] 2021-04-15 14:30:00 [facility] CHIEF COMPLAINT No chief complaint on file. SUBJECTIVE Ibis Tay is a 66 y.o. female who presents for follow-up of No chief complaint on file. with diagnosis of: 1. Problem List Items Addressed This Visit Cervical radiculopathy Failed back syndrome Other Visit Diagnoses Chronic, continuous use of opioids - Primary Relevant Orders Controlled Substance Agreement Patient underwent LESI on 12-19-20She notes 50% improvement but continues with low back and joint pain Since patient's last encounter patient reports persistent chronic pain requiring ongoing treatment. Describes the pain as Sharp and Stabbing Patient rates their pain score 7/10 on average and is tolerable. Patient feels that the medication regimen does help maintain the function, mobility, activity tolerance and pain levels at a tolerable level. Patient states that medications changes or injections are not necessary today Patient states that the pain symptoms are stable. Patient denies new or changing pain complaints. Patient notes that the pain is worse with general activity and improved with rest. Patient 's current pain medication regimen has been reviewed with the patient and they note that the medication regimen is effective and reports that they are taking the medication regimen as prescribed. Patient denies running out of medication early or having an excess supply of medications. Other concerns: no new concerns at this time Patient's current pain medications has been reviewed and includes: DRUG FREQ Percocet qid qid Patient's most recent interventional procedures: PROCEDURE DATE % Relief & Duration Interlaminar Lumbar Epidural Steroid Injection L3 - L4 12/19/20 ROS Constitutional: denies dizziness, sedation, or somnolence Psychological: denies altered mentation or euphoria GI: denies significant constipation or diarrhea Musc: denies acute change in numbness, weakness, or tingling of extemities MEDICATIONS Current Outpatient Medications Medication Sig Dispense Refill - ALPRAZolam (Xanax) 1 MG tablet Take 1/2 tab (0.5mg) four times daily as needed for anxiety 60 tablet 2 - cholecalciferol (VITAMIN D3) 125 mcg (5,000 unit) capsule Take 1 capsule (5,000 Units total) by mouth once daily. 100 capsule 3 - diaper,brief,adult,disposable Misc 1 application by Miscellaneous route 2 (two) times a day. 96 each 5 - Flovent Diskus 250 mcg/actuation Disk with Device INHALE ONE PUFF BY MOUTH TWICE A DAY 60 each 3 - food supplemt, lactose-reduced (ENSURE) Liquid Drink 2 bottles per day. Patient requests strawberry. 07274 mL PRN - hydroCHLOROthiazide (HYDRODIURIL) 25 MG tablet Take 0.5 tablets (12.5 mg total) by mouth once daily. 45 tablet 1 - ibandronate (Boniva) 150 mg tablet Take 1 tablet (150 mg total) by mouth every 30 (thirty) days. Take sitting upright once mobnthly on empty stomach with glass of water , dont lay down or eat for full hour 3 tablet 4 - ipratropium-albuteroL (DUO-NEB) 0.5-2.5 mg/3 mL nebulizer Inhale 3 mL into the lungs 4 (four) times a day. 360 vial 3 - lisinopriL (PRINIVIL,ZESTRIL) 5 MG tablet TAKE ONE TABLET BY MOUTH DAILY 30 tablet 4 - misc[place] [facility] [place] for use for breathing problems for duo-nebs treatments 1 each 0 - miscellaneous medical [place] [facility] [place], tubing and filter for nebulizer machine to be changed every 3 months. 1 each 3 - naloxone 2 mg/actuation [place], Non-Aerosol 2 mg by Nasal route as needed. 1-2 daily PRN. Proceed to ER for evaluation immediately following use. 4 each 1 - omeprazole (PriLOSEC) 40 MG capsule TAKE ONE CAPSULE BY MOUTH DAILY 30 capsule 7 - ondansetron (Zofran ODT) [address] 1-2 tablets (4-8 mg total) under the tongue every 8 (eight) hours as needed for nausea / vomiting. 20 tablet 1 - oxyCODONE-acetaminophen (Percocet) 10-325 mg tablet Take 1 tablet by mouth every 6 (six) hours as needed for pain. To Last 30days. No early refills Max Daily Amount: 4 tablets 120 tablet 0 - potassium chloride (KLOR-CON) 10 MEQ CR tablet TAKE TWO TABLETS BY MOUTH TWICE A DAY 120 tablet 4 - prazosin (MINIPRESS) 2 MG capsule Take 3 capsules (6 mg total) by mouth every evening. 90 capsule 5 - predniSONE (DELTASONE) 20 MG tablet Take two pill once daily for 5 days then one pill daily for two days then one half pill daily for 2 days 13 tablet 0 - ProAir HFA 90 mcg/actuation inhaler INHALE TWO PUFFS BY MOUTH FOUR TIMES A DAY 8.5 g 11 - tiZANidine (ZANAFLEX) 4 MG tablet Take 1 tablet (4 mg total) by mouth 2 (two) times a day for 30 days. 60 tablet 3 - umeclidinium-vilanteroL (Anoro Ellipta) 62.5-25 mcg/actuation Disk with Device Inhale 1 puff into the lungs once daily. 1 each 6 No current facility-administered medications for this visit. ALLERGIES Allergies Allergen Reactions - Penicillins Anaphylaxis - Gabapentin Other (See Comments) severe fatigue - Sulfa (Sulfonamide Antibiotics) Other (See Comments) Blisters inside and outside of mouth. - Wellbutrin [Bupropion Hcl] Other (See Comments) Body numbness and tingling - Diazepam Nausea And Vomiting PHYSICAL EXAM Vital Signs: BP (!) 192/86 (BP Location: Right arm) Wt 55.3 kg (122 lb) BMI 22.31 kg/m Constitutional: Well nourished, well groomed, NAD. CARDIAC: Regular Rate LUNGS: Breathing nonlabored, no wheezing Neurologic: Alert & oriented x 3, normal gait, no focal deficits noted. Psychiatric: Affect normal, judgment normal, mood normal. Other Affected BA/OS: Chronic Opiate Therapy Risk Mitigation: Risk Assessment Evaluation Assessment Morphine Equivalents 60 Date of Last UDS SOAPP-R Score Behavior Risks none Physical Risks none H/o Illegal Substance Abuse denies H/o Alcohol abuse denies OPIATE RISK ASSESSMENT: LOW (Routine medication monitoring, Annual UDS) Assessment is based treating physicians overall evaluation of multiple factors including MME load, age, comorbidity, medication profile, and social risk factors. The risks/benefits of chronic opiate therapy was discussed with patient including failure of therapy, psychological addiction, physiological dependence, and risk withdrawal syndrome. Warning symptoms of potential opiate overuse/overdose were discussed including sedation, somnolence, and altered mentation were reviewed and I counseled patient these symptoms can occur even when patient have been on a stable dose and also can happen despite following physicians instructions. Alternative therapies were discussed including: non-opiate medications, interventional pain procedures, and Cognitive Behavioral Therapy. After discussing these alternatives with the patient, the patient has opted to decline these alternatives at this time. Patient has tried and failed more conservative measures and were either ineffective or intolerant. In my medical opinion non-opiate therapy is not appropriate to address the patient's medical condition at this time and will continue chronic opiate therapy after having addressed efficacy, adverse side effects, and safety of therapy with the patient. The patient indicates understanding of these issues and agrees with the plan. LIFESTYLE COUNSELING: Time was spent discussing the importance of a home exercise program to promote strength, activity endurance and pain tolerance. Patient was also counseled on avoidance of tobacco products for general health as well as improved chronic pain control. ASSESSMENT AND PLAN Problem List Items Addressed This Visit Cervical radiculopathy Failed back syndrome Other Visit Diagnoses Chronic, continuous use of opioids - Primary Relevant Orders Controlled Substance Agreement PLAN: 1. Patient is stable functional and meeting the goals of chronic opiate therapy without adverse side effects, misuse, or safety concerns. PDMP was reviewed without redflags or other concerns. 2. I counseled her on the importance of maintaining her activity and low-impact exercise such as walking on a daily basis to promote good health and improve chronic pain management. 3. I will resume her percocet to 10/325 qid and f/u in 4 weeks The patient indicates understanding of these issues and agrees with the plan. I reviewed the patient's medical information and medical history. I have reviewed the past medical, family, and social history sections including the medications and allergies listed in the above medical record. Patient was counseled that in my practice I do not prescribe chronic opiate therapy in the presence of ongoing illegal substance use. Patient was also counseled that drug screen testing is medically necessary from time to time to help stratify risks associated with chronic opiate therapy by assessing compliance with prescribed medications as well as to identify the presence of illegal substances. Consent for drug screen testing is required for continuation of chronic opiate therapy. Electronically signed by: Isaías Cardenas MD, 04/15/2021 2:42 PM [facility] 2021-04-03 11:30:00 Subjective: Patient ID: Ibis Tay is a 66 y.o. female. Chief Complaint Patient presents with - Follow-up ED - skin issues round raised spots noted all over body - Urinary Tract Infection hx of UTI, voiding urge, decrease output HPI The patient is a 66-year-old female presenting for a follow-up of her ER visit from 03/20/2021 when she presented with complaints of nausea, emesis, myalgias, and diarrhea onset 03/17/2021. The patient has a history of generalized anxiety disorder and was started on Valium 5 mg 1 tablet once daily as needed on 03/10/[address] Parth Lemos, psychiatrist, and she suspected the symptoms to have originated from the medication. In the ER, her chest x-ray was unremarkable. Patient had previously been on alprazolam which she tolerates well for the treatment of her anxiety. the patient tested negative for COVID-19. Her blood tests were significant for mildly elevated glucose (103), low potassium (3.1), and low lipase (57). The patient was administered intravenous fluids, Zofran 4 mg, morphine 4 mg, Dilaudid 1 mg, and an oral dose of potassium chloride 40 mEq intravenously before being discharged on Zofran 4 mg 1 tablet every 8 hours as needed. Today, she states her symptoms have resolved. The patient states Dr. Lemos discontinued her Valium and started her on Xanax 1 mg half tablet 4 times daily as needed on 03/30/2021. The patient also has a history of chronic obstructive pulmonary disease and has been prescribed DuoNeb 3 mL by nebulization 4 times daily and ProAir HFA 90 mcg 2 puffs 4 times daily. She is a daily cigarette smoker. The patient notes having a productive cough with yellow sputum. She also reports a sore throat. The patient denies fever or chills. She states her nebulizer machine is not operational, and she requests a prescription for its replacement. The patient notes having urinary frequency and urgency. She denies dysuria. The patient has a history of recurrent urinary tract infections, but has not seen Urology for a second opinion. The patient requests her body to be evaluated for raised lesions that she noticed recently. She claims to have had a fair amount of sun exposure in her younger years, but she tries to keep her skin protected using SPF-50 agents. The patient denies having a history of skin cancer. Review of Systems General: No weight gain or loss, no loss of appetite, no fever, no chills, no fatigue, no night sweats. Skin and lymphatics: Positive for diffuse skin lesions. No rashes, no skin discolorations, no easy bruising, no lymphadenopathy. Head: No headaches, no dizziness, no masses, no seizures. Eyes: No visual changes, no eye pain. Ears: No tinnitus, no vertigo, no hearing loss. Nose: No nosebleeds, no discharge, no sinus disease. Mouth and throat: Positive for sore throat. No dental disease, no hoarseness. Respiratory: Positive for a productive cough. No shortness of breath. Cardiovascular: No chest pain, no orthopnea, no paroxysmal nocturnal dyspnea, or dyspnea on exertion, no claudication, no edema, no valvular disease. Gastrointestinal: No dysphagia, no abdominal pain, no nausea, no vomiting, no hematemesis, no diarrhea, no constipation, no melena, no hematochezia. Genitourinary: Positive for frequency and urgency. No dysuria, no hesitancy, no hematuria, no discharge. Musculoskeletal: No joint pain or swelling, no arthritis, no myalgias. Neuropsychiatric: No weakness, no seizures, no memory changes, no depression. Neurologic: No unilateral or bilateral numbness, tingling or weakness, no difficulty with speech, no vision changes, no problems with balance, denies dizziness, denies headache. Objective: BP 134/76 (BP Location: Left arm, Patient Position: Sitting) Pulse 90 Temp 36.2 C (97.2 F) Resp 16 Wt 55.3 kg (122 lb) SpO2 93% BMI 22.31 kg/m Physical Exam Nursing note and vitals reviewed. Constitutional: Patient appears well-developed and well-nourished. No distress. Head: Normocephalic and atraumatic. Right Ear: External ear normal. No erythema. Bright tympanic membrane. Bony landmarks intact. Left Ear: External ear normal. No erythema. Bright tympanic membrane. Bony landmarks intact. Mouth/Throat: No oropharyngeal exudate. Neck: No JVD present. No tracheal deviation present. No thyromegaly present. Cardiovascular: Normal rate, regular rhythm, normal heart sounds and intact distal pulses. Exam reveals no gallop and no friction rub. No murmur heard. Pulmonary/Chest: She has diminished breath sounds. Patient has no wheezes. Patient has no rales. Patient exhibits no tenderness. Abdominal: Soft. Patient exhibits no distension and no mass. There is no tenderness to palpation. There is no rebound and no guarding. Musculoskeletal: Normal range of motion. Patient exhibits no edema and no tenderness. Skin: She has thickening of right great toenail. She has brown and flat seborrheic keratosis at the right voodoo. She has a 1 cm seborrheic keratosis at left voodoo. She has 0.5 cm seborrheic keratosis at the inside aspect of the left breast. Skin is warm. No rash noted. Patient is not diaphoretic. No erythema. No pallor. Assessment/Plan: Problem List Items Addressed This Visit COPD exacerbation (HCC) Relevant Medications umeclidinium-vilanteroL (Anoro Ellipta) 62.5-25 mcg/actuation Disk with Device doxycycline (VIBRAMYCIN) 100 MG capsule predniSONE (DELTASONE) 20 MG tablet miscellaneous medical supply Misc miscellaneous medical supply Misc Other Visit Diagnoses Vomiting and diarrhea - Primary Possible urinary tract infection Relevant Orders POCT UA Dipstick only. (Completed) Abnormal urinalysis Relevant Orders URINE CULTURE Seborrheic keratoses 1. Vomiting and diarrhea Resolved. 2. COPD exacerbation (HCC) The patient was prescribed Anoro Ellipta 62.5/25 mcg 1 puff once daily. She was also prescribed Vibramycin 100 mg 1 capsule twice daily. The patient also prescribed a tapering dose of Deltasone 20 mg. She was also prescribed nebulizer machine and mask. - umeclidinium-vilanteroL (Anoro Ellipta) 62.5-25 mcg/actuation Disk with Device; Inhale 1 puff into the lungs once daily. Dispense: 1 each; Refill: 6 - doxycycline (VIBRAMYCIN) 100 MG capsule; Take 1 capsule (100 mg total) by mouth 2 (two) times a day for 10 days. Dispense: 20 capsule; Refill: 0 - predniSONE (DELTASONE) 20 MG tablet; Take two pill once daily for 5 days then one pill daily for two days then one half pill daily for 2 days Dispense: 13 tablet; Refill: 0 - miscellaneous medical supply Misc; Needs nebulizer machine for use for breathing problems for duo-nebs treatments Dispense: 1 each; Refill: 0 - miscellaneous medical supply Misc; Needs mask, tubing and filter for nebulizer machine to be changed every 3 months. Dispense: 1 each; Refill: 3 3. Possible urinary tract infection we will culture urine continue doxycycline which has some coverage for UTI until urine culture returned Obtained urinalysis, which demonstrated trace blood and small leukocytes. - POCT UA Dipstick only. 4. Abnormal urinalysis Ordered urine culture. We will call the patient with the result. - URINE CULTURE 5. Seborrheic keratoses The patient was informed that the seborrheic keratoses appear to be benign given rapid change concern for inflamed seborrheic keratosis patient will return for liquid nitrogen freeze. She was offered cryotherapy and advised to schedule an appointment in the future should she wish to get lesions frozen. The patient indicates understanding of these issues and agrees with the plan. I reviewed the patient's medical information and medical history. I have reviewed the past medical, family, and social history sections including the medications and allergies listed in the above medical record I, Mino Garcia, am scribing for and in the presence of Mike Ann Jr., MD. .I have read and agree with the documentation that has been completed regarding this visit and attest, that it is an accurate record of both my words and actions during the visit. . MIKE ANN JR, [facility] 2021-04-03 11:30:00 Faxed script for neb ulizer machine and mask, tubing, and filter to [facility] [phone]. Added office notes dated 01/27/21. 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 [facility] 2021-03-20 10:21:56 Attestation signed by Byron Deras DO at 03/25/2021 1:10 PM ATTENDING PHYSICIAN NOTE: This patient was seen primarily by the mid-level provider. I was available for discussion regarding the case, and agree with the assessment and plan as discussed. Referred to the mid-level provider's chart for details. [facility] ENCOUN[facility] CHIEF COMPLAINT/HPI Chief Complaint Patient presents with - Anxiety recent travel, took 1 mg of xanax this morning at 0830, recently prescribed Valium and thinks that she may be having a reaction to it Ibis Tay is a 66 y.o. female who presents with complaint of vomiting, body aches, diarrhea. Patient states that she is not sure if she has Covid. She was in [place], [place], last week. She states she has had vomiting and diarrhea since Wednesday, March 17, 2021. She reports that she is not able to keep water down, not able to to keep her Percocet down. Last Percocet was March 16. She has history of chronic back pain. She states she has history of complete vascular occlusion, both lower legs, and she has declined surgical option as they do not think that she will tolerate the surgery. She was switched from Xanax 4 mg to Valium. She does not think the Valium works as well. She has a productive cough, white mucus, with rhinorrhea. She reports increased stress. She has generalized body aches, everywhere. She does smoke, prior history of lung cancer. No hemoptysis. She has had Covid vaccine x2. History is provided by patient. Relieving factors are nothing. Exacerbating factors are lack of narcotics due to vomiting. Severity of symptoms are moderate. Able to speak in sentences.. She reports that she has chronic low abdominal pain secondary to the vascular disease. Unchanged. No bloody diarrhea. She does have chills. REVIEW OF SYSTEMS Review of Systems - General ROS: negative for - fever or night sweats. Positive for chills. Ophthalmic ROS: negative for - eye redness, eye pain or loss of vision ENT ROS: negative for -voice change, sore throat. Positive for rhinorrhea. Respiratory ROS: negative for - hemoptysis, shortness of breath or wheezing. Positive for productive cough, white mucus. Cardiovascular ROS: negative for - chest pain, orthopnea, edema, dyspnea on exertion, or syncope Gastrointestinal ROS: negative for -constipation, hematemesis, hematochezia, melena. Positive for low abdominal pain, nonradiating, diarrhea and nausea/vomiting Genito-Urinary ROS: negative for - hematuria, dysuria or urinary frequency/urgency Musculoskeletal ROS: negative for - joint redness or swelling. Positive for chronic pain. Neurological ROS: negative for - confusion, dizziness or headache Dermatological ROS: negative for rash or skin changes. Psychological ROS: Negative for suicidal homicidal ideation. Positive for anxiety. *all systems reviewed and are otherwise negative* PAST MEDICAL HISTORY Past Medical History: Diagnosis Date - Anxiety Takes Xanax - Arthritis - Breast mass 2013 rt axilla - Bronchitis - Bursitis Left hip - Cancer (HCC) left lung cancer, scheduled for left upper lobectomy at [facility] with Dr. Moore - Cervical radiculopathy sees Dr. Cardenas, gets cervical pain injections every 3 months, last done in - COPD (chronic obstructive pulmonary disease) ([facility]) - DDD (degenerative disc disease) - Depression dr. 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 pylori infection Hx of H pylori infection several months ago treated with medication, no current issues. - H/O pyloric stenosis - Hiatal hernia - HTN (hypertension) - Hypercholesteremia - Hyperlipidemia No current medications or issues. - OA (osteoarthritis) of knee - Oxygen desaturation at night 3.5 liter - Palpitations with anxiety - Peripheral vascular disease ([facility]) 10/2020 abdominal pain-stricture liliac artery - Pneumonia 1994 resolved. - PONV (postoperative nausea and vomiting) - PTSD (post-traumatic stress disorder) son was murdered 8 years ago, followed by Dr. Milly Freire - Spinal stenosis cervical - Urinary incontinence - Wears dentures full set - Wears glasses SURGICAL HISTORY Past Surgical History: Procedure Laterality Date - ESOPHAGEAL DILATION 2012 approx. done with upper endoscopy - KNEE ARTHROPLASTY Right 2010 - LUMBAR FUSION 1995 - LUNG LOBECTOMY Left 10/11/2017 Upper - CO INTRODUCTION CATHETER AORTA Right 11/03/2020 Procedure: ABDOMINAL AORTOGRAM; Surgeon: Imelda Swan MD; Location: [facility]; Service: Vascular - CO TOTAL KNEE ARTHROPLASTY Right 05/28/2014 Procedure: REPLACEMENT TOTAL JOINT KNEE RIGHT / BETO ; Surgeon: Isaak Moncada MD; Location: [facility] OR; Service: Orthopedics - SPINE SURGERY lumbar fusion - TENDON RELEASE Right arm - TOTAL HIP ARTHROPLASTY Left 09/26/14 hip hem-iarthoplasty - TOTAL KNEE ARTHROPLASTY Left 11/23 - TUBAL LIGATION Bilateral - UPPER GASTROINTESTINAL ENDOSCOPY 2012 approx. diagnosed with H. Pylori and esophagus dilated. - UPPER GASTROINTESTINAL ENDOSCOPY HOME MEDICATIONS Prior to Admission medications Medication Sig Start Date End Date Taking? Authorizing Provider cholecalciferol (VITAMIN D3) 125 mcg (5,000 unit) capsule Take 1 capsule (5,000 Units total) by mouth once daily. 02/05/21 Mike Ann Jr., MD diaper,brief,adult,disposable Misc 1 application by Miscellaneous route 2 (two) times a day. 12/01/15 Mike Ann Jr., MD diazePAM (Valium) 5 MG tablet Take 1 tablet (5 mg total) by mouth daily as needed for anxiety or sleep. Max Daily Amount: 5 mg 03/10/21 03/10/22 Parth Lemos MD Flovent Diskus 250 mcg/actuation Disk with Device INHALE ONE PUFF BY MOUTH TWICE A DAY Patient not taking: Reported on 03/19/2021 05/19/20 Mike Ann Jr., MD food supplemt, lactose-reduced (ENSURE) Liquid Drink 2 bottles per day. Patient requests strawberry. 11/19/16 Mike Ann Jr., MD hydroCHLOROthiazide (HYDRODIURIL) 25 MG tablet Take 0.5 tablets (12.5 mg total) by mouth once daily. 01/09/21 Mike Ann Jr., MD ibandronate (Boniva) 150 mg tablet Take 1 tablet (150 mg total) by mouth every 30 (thirty) days. Take sitting upright once mobnthly on empty stomach with glass of water , dont lay down or eat for full hour 01/27/21 Mike Ann Jr., MD ipratropium-albuteroL (DUO-NEB) 0.5-2.5 mg/3 mL nebulizer Inhale 3 mL into the lungs 4 (four) times a day. 08/18/20 Mike Ann Jr., MD lisinopriL (PRINIVIL,ZESTRIL) 5 MG tablet TAKE ONE TABLET BY MOUTH DAILY 02/16/21 Mike Ann Jr., MD naloxone 2 mg/actuation [place], Non-Aerosol 2 mg by Nasal route as needed. 1-2 daily PRN. Proceed to ER for evaluation immediately following use. Patient not taking: Reported on 03/19/2021 05/16/18 Isaías Cardenas MD omeprazole (PriLOSEC) 40 MG capsule TAKE ONE CAPSULE BY MOUTH DAILY 10/09/20 Mike Ann Jr., MD oxyCODONE-acetaminophen (Percocet) 10-325 mg tablet Take 1 tablet by mouth every 6 (six) hours as needed for pain. To Last 30days. No early refills Max Daily Amount: 4 tablets 03/19/21 Isaías Cardenas MD potassium chloride (KLOR-CON) 10 MEQ CR tablet TAKE TWO TABLETS BY MOUTH TWICE A DAY 02/16/21 Mike Ann Jr., MD prazosin (MINIPRESS) 2 MG capsule Take 3 capsules (6 mg total) by mouth every evening. 01/27/21 Mike Ann Jr., MD ProAir HFA 90 mcg/actuation inhaler INHALE TWO PUFFS BY MOUTH FOUR TIMES A DAY 02/26/21 Mike Ann Jr., MD tiZANidine (ZANAFLEX) 4 MG tablet Take 1 tablet (4 mg total) by mouth 2 (two) times a day for 30 days. 03/19/21 04/18/21 Isaías Cardenas MD ALLERGIES Allergies Allergen Reactions - Penicillins Anaphylaxis - Gabapentin Other (See Comments) severe fatigue - Sulfa (Sulfonamide Antibiotics) Other (See Comments) Blisters inside and outside of mouth. - Wellbutrin [Bupropion Hcl] Other (See Comments) Body numbness and tingling FAMILY HISTORY Family History Problem Relation Age of Onset - Other Other Hx: Yes Dx: Diabetes Fam Mem: Family h/o - Drug abuse Other - Other Other Hx: Yes Dx: Hypertension Fam Mem: Mother - Drug abuse Other - Hypertension Mother - Heart disease Mother - Diabetes Mother - No Known Problem Father - Other Sister - Cancer Sister - Other Other Hx: Yes Dx: Heart disease Fam Mem: Mother - Diabetes Maternal Grandmother SOCIAL HISTORY Social History Socioeconomic History - Marital status: Spouse name: Not on file - Number of children: Not on file - Years of education: 14 - Highest education level: Not on file Occupational History - Not on file Social Needs - Financial resource strain: Not very hard - Food insecurity Worry: Sometimes true Inability: Sometimes true - Transportation needs Medical: Yes Non-medical: Yes Tobacco Use - Smoking status: Current Every Day Smoker Packs/day: 0.50 Years: 44.00 Pack years: 22.00 Types: Cigarettes - Smokeless tobacco: Never Used Substance and Sexual Activity - Alcohol use: Yes - Drug use: No - Sexual activity: Not Currently Lifestyle - Physical activity Days per week: Not on file Minutes per session: Not on file - Stress: Not on file Relationships - Social connections Talks on phone: Not on file Gets together: Not on file Attends denominational service: Not on file Active member of club or organization: Not on file Attends meetings of clubs or organizations: Not on file Relationship status: Not on file - Intimate partner violence Fear of current or ex partner: Not on file Emotionally abused: Not on file Physically abused: Not on file Forced sexual activity: Not on file Other Topics Concern - Not on file Social History Narrative - Not on file PHYSICAL EXAM VITAL SIGNS: BP 132/74 (BP Location: Right arm, Patient Position: Sitting) Pulse 84 Temp 36.2 C (97.2 F) (Oral) Resp 18 SpO2 97% Constitutional: Well developed, thin appearing, no acute distress, non-toxic appearance. Head: Atraumatic, normocephalic. Eyes: No eye redness, no discharge. No periorbital edema HENT: Mucous membranes pink and moist. No Stridor. NECK: Trachea midline. No JVD. Normal ROM. No meningeal signs. Respiratory: No respiratory distress, lungs clear bilaterally to auscultation, breathing nonlabored Cardiovascular: Regular rate and rhythm, good peripheral perfusion. Abdomen: Abdomen soft, non distended, mild tenderness, low abdomen. No palpable mass, no abdominal bruits [place]'s and Garcia Stafford's negative. Soft and non tender over McBurney's point. Musculoskeletal: Extremities nontender, normal range of motion, no visible trauma. No peripheral edema. No calf swelling or tenderness. No palpable cords. Toes pink, capillary refill less than 2 seconds. Dorsalis pedis pulses nonpalpable. No mottling, pallor Back -Normal range of motion, Non Tender. No CVA tenderness. Integument: Skin pink, warm, and dry. No rash. Capillary refill less than 2 seconds. Neurologic: Alert, appropriate, oriented to person, place and time. Lymphatic: No cervical or supraclavicular adenopathy Psych: Alert and oriented x3. Anxious. No acute psychosis or delusions. RADIOLOGY/PROCEDURES ED Imaging Results & Wet Read XR Chest 1 View (Final result) Result time 03/20/21 11:02:41 Final result by Bill Mazariegos MD (03/20/21 11:02:41) Impression: : 1. Stable exam with no acute findings. Narrative: REASON FOR EXAM: Cough COMPARISON: 09/11/2020 DISCUSSION: There are stable postoperative changes involving the left lung. There are no new areas of airspace consolidation or pleural effusion. The cardiac silhouette is partially obscured. There are degenerative changes within the thoracic spine. There are no radiopaque foreign bodies. LABS ED Lab Results Procedure Component Value Ref Range Date/Time COVID-19 [[id number]] Collected: 03/20/21 1130 Order Status: Sent Specimen: Nasopharyngeal Swab from Nares Updated: 03/20/21 1411 CBC auto differential [[id number]] Collected: 03/20/21 1100 Order Status: Completed Specimen: Blood Updated: 03/20/21 1129 WBC 8.8 4.0 - 12.0 k/ul RBC 5.15 3.50 - 5.30 m/ul HEMOGLOBIN 14.5 12.0 - 16.0 gm/dl Hematocrit 43.5 36.0 - 48.0 % MCV 84 80 - 100 fl MCH 28.2 26.0 - 34.0 pg MCHC 33.3 30.0 - 37.0 gm/dl RDW 13.7 11.5 - 15.0 % Platelet Count 275 140 - 440 k/ul MPV 9.1 8.5 - 12.5 fl Neutrophils % 83 % Immature Granulocytes % 0 % Lymphs % 12 % Monocytes % 4 % Eosinophils Percent 0 % Basophils Percent 0 % Neutrophils Abs 7.3 1.5 - 8.0 k/ul Immature Granulocytes Abs 0.0 0.0 - 0.1 k/ul Lymphs Abs 1.1 1.0 - 4.5 k/ul Monocytes Abs 0.4 0.1 - 1.1 k/ul Eosinophils Absolute 0.0 0.0 - 0.4 k/ul Basophils Absolute 0.0 0.0 - 0.1 k/ul LIPASE [[id number]] (Abnormal) Collected: 03/20/21 1100 Order Status: Completed Specimen: Blood Updated: 03/20/21 1137 Lipase 57 73 - 393 u/l Comprehensive metabolic panel [[id number]] (Abnormal) Collected: 03/20/21 1100 Order Status: Completed Specimen: Blood Updated: 03/20/21 1247 Glucose 103 70 - 100 mg/dl BUN 9 6 - 24 mg/dl Creatinine 0.65 0.50 - 1.10 mg/dl Sodium 141 135 - 145 mmol/L Potassium 3.1 3.7 - 5.1 mmol/L Chloride 106 96 - 110 mmol/L CO2 26.0 22.0 - 32.0 mmol/L Anion Gap 12 <=20 mmol/L Calcium 9.5 8.5 - 10.5 mg/dl Total Protein 7.3 6.0 - 8.4 gm/dl Albumin 4.0 3.5 - 5.0 gm/dl Globulin 3.3 2.0 - 4.4 gm/dl AST 12 10 - 40 u/l Alkaline Phosphatase 88 33 - 138 u/l Total Bilirubin 0.6 0.0 - 1.5 mg/dl ALT 17 12 - 78 u/l GFR MDRD Af Amer >90 >=90 mL/min/1.73 m2 GFR MDRD Non Af Amer >90 >=90 mL/min/1.73 m2 Vitals: 03/20/21 1300 03/20/21 1315 03/20/21 1330 03/20/21 1411 BP: 157/79 153/50 134/59 132/74 BP Location: Right arm Patient Position: Sitting Pulse: 88 90 84 Resp: 18 Temp: 36.2 C (97.2 F) TempSrc: Oral SpO2: 97% 96% 97% ED COURSE & MEDICAL DECISION MAKING Pertinent Labs & Imaging studies reviewed. (See chart for details) Old records reviewed. Patient was seen by Dr. Cardenas, yesterday, for chronic pain. There is no mention of any illness, vomiting, diarrhea, or cough. Rx, from yesterday, oxycodone #120. Patient was given 1 L of saline IV, Zofran 4 mg IV, morphine 4 mg IV. She had no relief of pain with the morphine, given Dilaudid 1 mg IV. Potassium returned 3.1. She was given potassium chloride 40 mEq orally. I did discuss with patient that she may have a component of abdominal pain, vomiting, diarrhea secondary to narcotic withdrawal. No diaphoresis. No acute psychosis or delusions. She is cooperative. She is concerned that she has Covid, secondary to her recent travel. Covid result is pending, and she will be notified if it is positive. I did discuss with patient that we will take approximately 24 hours for that result. She has Percocet at home. Rx for Zofran. She is to follow-up with her doctor if not improving, return sooner if worse. Patient verbalizes understanding and is in agreement this plan COVID-19 Crisis This encounter occurred during the pandemic [place] Virus crisis. All efforts were made to address emergencies and minimize the patient's potential exposure to infection. Appropriate PPE worn during all interactions with patient to include: N 95, gloves. Patient is stable for discharge at this time. I explained that the ED diagnosis is a preliminary one based on current presentation. Strict return to ER instructions were described to the patient including refractory pain, fevers, inability to tolerate oral intake, new or alarming symptoms. The patient states they are comfortable with this plan. Questions were answered and patient verbalized understanding of discharge instructions and plan. Patient instructed to follow up. Incidental findings of ER workup discussed. Patient will follow-up with PMD for additional evaluation Patient was screened and medically evaluated, and no emergent medical condition was found. Patient is stable for discharge to home, with follow-up.. MEDICATIONS ADMINISTERED IN THE EMERGENCY DEPARTMENT Administered Meds Date/Time Order Dose Route Action Comments 03/20/2021 1100 sodium chloride 0.9% (NORMAL SALINE) bolus 1,000 mL 1,000 mL IntraVENous New Bag 03/20/2021 1104 ondansetron (ZOFRAN-ODT) disintegrating tablet 4 mg SubLINgual Given 03/20/2021 1104 morphine 4 mg/mL syringe 4 mg 4 mg IntraVENous Given 03/20/2021 1349 HYDROmorphone (DILAUDID) syringe 1 mg 1 mg IntraVENous Given 03/20/2021 1349 potassium chloride SA (K-DUR,KLOR-CON) CR tablet 40 mEq Oral Given DISMISSAL PRESCRIPTIONS Current Discharge Medication List START taking these medications Details ondansetron (Zofran ODT) [address] 1-2 tablets (4-8 mg total) under the tongue every 8 (eight) hours as needed for nausea / vomiting. Qty: 12 tablet, Refills: 0 PATIENT REFERRED TO Mike nAn Jr., MD [address] [facility] [address] [facility] [address] Next week if not improving. Quarantine at home. Covid result will be called to you if positive. Zofran as needed for nausea, vomiting. Use your Percocet prescription as needed for pain. DISPOSITION Discharge [1] 03/20/2021 1:01 PM DISMISSAL INSTRUCTIONS Contact information for follow-up Mike Ann Jr, MD Specialty: Family Medicine Relationship: PCP - General [facility] [address] [facility] [address] [facility] [id number] Next Steps: Follow up Instructions: Next week if not improving. Quarantine at home. Covid result will be called to you if positive. Zofran as needed for nausea, vomiting. Use your Percocet prescription as needed for pain. DIAGNOSIS: 1. Vomiting and diarrhea 2. Other chronic pain *This note was compiled in part using Pegg'd voice recognition technology. The note may contain typographical, grammatical, and voice recognition errors* NATANAEL Kaiser 03/20/21 1618 Byron Deras DO 03/25/21 [address] [facility] 2021-03-19 14:00:00 [facility] CHIEF COMPLAINT No chief complaint on file. SUBJECTIVE Ibis Tay is a 66 y.o. female who presents for follow-up of No chief complaint on file. with diagnosis of: 1. Problem List Items Addressed This Visit Cervical radiculopathy Relevant Medications oxyCODONE-acetaminophen (Percocet) 10-325 mg tablet tiZANidine (ZANAFLEX) 4 MG tablet Failed back syndrome - Primary Relevant Medications oxyCODONE-acetaminophen (Percocet) 10-325 mg tablet tiZANidine (ZANAFLEX) 4 MG tablet Lumbar spondylosis Relevant Medications oxyCODONE-acetaminophen (Percocet) 10-325 mg tablet tiZANidine (ZANAFLEX) 4 MG tablet Patient underwent LESI on 12-19-20She notes 50% improvement but continues with low back and joint pain Since patient's last encounter patient reports persistent chronic pain requiring ongoing treatment. Describes the pain as Sharp and Stabbing Patient rates their pain score 7/10 on average and is tolerable. Patient feels that the medication regimen does help maintain the function, mobility, activity tolerance and pain levels at a tolerable level. Patient states that medications changes or injections are not necessary today Patient states that the pain symptoms are stable. Patient denies new or changing pain complaints. Patient notes that the pain is worse with general activity and improved with rest. Patient 's current pain medication regimen has been reviewed with the patient and they note that the medication regimen is effective and reports that they are taking the medication regimen as prescribed. Patient denies running out of medication early or having an excess supply of medications. Other concerns: no new concerns at this time Patient's current pain medications has been reviewed and includes: DRUG FREQ Percocet 10/325 qid qid Patient's most recent interventional procedures: PROCEDURE DATE % Relief & Duration Interlaminar Lumbar Epidural Steroid Injection L3 - L4 12/19/20 ROS Constitutional: denies dizziness, sedation, or somnolence Psychological: denies altered mentation or euphoria GI: denies significant constipation or diarrhea Musc: denies acute change in numbness, weakness, or tingling of extemities MEDICATIONS Current Outpatient Medications Medication Sig Dispense Refill - cholecalciferol (VITAMIN D3) 125 mcg (5,000 unit) capsule Take 1 capsule (5,000 Units total) by mouth once daily. 100 capsule 3 - diaper,brief,adult,disposable Misc 1 application by Miscellaneous route 2 (two) times a day. 96 each 5 - diazePAM (Valium) 5 MG tablet Take 1 tablet (5 mg total) by mouth daily as needed for anxiety or sleep. Max Daily Amount: 5 mg 30 tablet 1 - Flovent Diskus 250 mcg/actuation Disk with Device INHALE ONE PUFF BY MOUTH TWICE A DAY (Patient not taking: Reported on 03/19/2021) 60 each 3 - food supplemt, lactose-reduced (ENSURE) Liquid Drink 2 bottles per day. Patient requests strawberry. 82400 mL PRN - hydroCHLOROthiazide (HYDRODIURIL) 25 MG tablet Take 0.5 tablets (12.5 mg total) by mouth once daily. 45 tablet 1 - ibandronate (Boniva) 150 mg tablet Take 1 tablet (150 mg total) by mouth every 30 (thirty) days. Take sitting upright once mobnthly on empty stomach with glass of water , dont lay down or eat for full hour 3 tablet 4 - ipratropium-albuteroL (DUO-NEB) 0.5-2.5 mg/3 mL nebulizer Inhale 3 mL into the lungs 4 (four) times a day. 360 vial 3 - lisinopriL (PRINIVIL,ZESTRIL) 5 MG tablet TAKE ONE TABLET BY MOUTH DAILY 30 tablet 4 - naloxone 2 mg/actuation [place], Non-Aerosol 2 mg by Nasal route as needed. 1-2 daily PRN. Proceed to ER for evaluation immediately following use. (Patient not taking: Reported on 03/19/2021 ) 4 each 1 - omeprazole (PriLOSEC) 40 MG capsule TAKE ONE CAPSULE BY MOUTH DAILY 30 capsule 7 - oxyCODONE-acetaminophen (Percocet) 10-325 mg tablet Take 1 tablet by mouth every 6 (six) hours as needed for pain. To Last 30days. No early refills Max Daily Amount: 4 tablets 120 tablet 0 - potassium chloride (KLOR-CON) 10 MEQ CR tablet TAKE TWO TABLETS BY MOUTH TWICE A DAY 120 tablet 4 - prazosin (MINIPRESS) 2 MG capsule Take 3 capsules (6 mg total) by mouth every evening. 90 capsule 5 - ProAir HFA 90 mcg/actuation inhaler INHALE TWO PUFFS BY MOUTH FOUR TIMES A DAY 8.5 g 11 - tiZANidine (ZANAFLEX) 4 MG tablet Take 1 tablet (4 mg total) by mouth 2 (two) times a day for 30 days. 60 tablet 3 No current facility-administered medications for this visit. ALLERGIES Allergies Allergen Reactions - Penicillins Anaphylaxis - Gabapentin Other (See Comments) severe fatigue - Sulfa (Sulfonamide Antibiotics) Other (See Comments) Blisters inside and outside of mouth. - Wellbutrin [Bupropion Hcl] Other (See Comments) Body numbness and tingling PHYSICAL EXAM Vital Signs: BP 156/59 (BP Location: Left arm, Patient Position: Sitting) Pulse 80 Temp 36.5 C (97.7 F) Ht 157.5 cm (5' 2) Wt 54.2 kg (119 lb 8 oz) BMI 21.86 kg/m Constitutional: Well nourished, well groomed, NAD. CARDIAC: Regular Rate LUNGS: Breathing nonlabored, no wheezing Neurologic: Alert & oriented x 3, normal gait, no focal deficits noted. Psychiatric: Affect normal, judgment normal, mood normal. Other Affected BA/OS: Chronic Opiate Therapy Risk Mitigation: Risk Assessment Evaluation Assessment Morphine Equivalents 60 Date of Last UDS SOAPP-R Score Behavior Risks none Physical Risks none H/o Illegal Substance Abuse denies H/o Alcohol abuse denies OPIATE RISK ASSESSMENT: LOW (Routine medication monitoring, Annual UDS) Assessment is based treating physicians overall evaluation of multiple factors including MME load, age, comorbidity, medication profile, and social risk factors. The risks/benefits of chronic opiate therapy was discussed with patient including failure of therapy, psychological addiction, physiological dependence, and risk withdrawal syndrome. Warning symptoms of potential opiate overuse/overdose were discussed including sedation, somnolence, and altered mentation were reviewed and I counseled patient these symptoms can occur even when patient have been on a stable dose and also can happen despite following physicians instructions. Alternative therapies were discussed including: non-opiate medications, interventional pain procedures, and Cognitive Behavioral Therapy. After discussing these alternatives with the patient, the patient has opted to decline these alternatives at this time. Patient has tried and failed more conservative measures and were either ineffective or intolerant. In my medical opinion non-opiate therapy is not appropriate to address the patient's medical condition at this time and will continue chronic opiate therapy after having addressed efficacy, adverse side effects, and safety of therapy with the patient. The patient indicates understanding of these issues and agrees with the plan. LIFESTYLE COUNSELING: Time was spent discussing the importance of a home exercise program to promote strength, activity endurance and pain tolerance. Patient was also counseled on avoidance of tobacco products for general health as well as improved chronic pain control. ASSESSMENT AND PLAN Problem List Items Addressed This Visit Cervical radiculopathy Relevant Medications oxyCODONE-acetaminophen (Percocet) 10-325 mg tablet tiZANidine (ZANAFLEX) 4 MG tablet Failed back syndrome - Primary Relevant Medications oxyCODONE-acetaminophen (Percocet) 10-325 mg tablet tiZANidine (ZANAFLEX) 4 MG tablet Lumbar spondylosis Relevant Medications oxyCODONE-acetaminophen (Percocet) 10-325 mg tablet tiZANidine (ZANAFLEX) 4 MG tablet PLAN: 1. Patient is stable functional and meeting the goals of chronic opiate therapy without adverse side effects, misuse, or safety concerns. PDMP was reviewed without redflags or other concerns. 2. I counseled her on the importance of maintaining her activity and low-impact exercise such as walking on a daily basis to promote good health and improve chronic pain management. 3. I will resume her percocet to 10/325 qid and f/u in 4 weeks The patient indicates understanding of these issues and agrees with the plan. I reviewed the patient's medical information and medical history. I have reviewed the past medical, family, and social history sections including the medications and allergies listed in the above medical record. Patient was counseled that in my practice I do not prescribe chronic opiate therapy in the presence of ongoing illegal substance use. Patient was also counseled that drug screen testing is medically necessary from time to time to help stratify risks associated with chronic opiate therapy by assessing compliance with prescribed medications as well as to identify the presence of illegal substances. Consent for drug screen testing is required for continuation of chronic opiate therapy. Electronically signed by: Isaías Cardenas MD, 03/19/2021 2:38 PM ISAÍAS CARDENAS [facility] 2021-03-04 19:35:00 Subjective: Patient ID: Ibis Tay is a 66 y.o. female. Chief Complaint Patient presents with - Nausea X 3 days. Family member tested + for COVID - Headache X 3 days. Family member tested + for COVID. Headache This is a new problem. The current episode started in the past 7 days. The problem occurs constantly. The problem has been unchanged. The pain is located in the frontal region. Associated symptoms include coughing and nausea. Exposed to COVID-19. Review of Systems Respiratory: Positive for cough. Gastrointestinal: Positive for nausea. Neurological: Positive for headaches. Objective: BP 130/68 (BP Location: Left arm, Patient Position: Sitting) Pulse 75 Temp 36.3 C (97.3 F) (Temporal Artery (forehead)) Resp 22 Ht 157.5 cm (5' 2) Wt 54.7 kg (120 lb 9.6 oz) SpO2 97% BMI 22.06 kg/m Physical Exam Vitals signs and nursing note reviewed. Constitutional: General: She is not in acute distress. Appearance: She is well-developed. She is not diaphoretic. HENT: Head: Normocephalic. Right Ear: Tympanic membrane and external ear normal. Left Ear: Tympanic membrane and external ear normal. Nose: Right Sinus: Maxillary sinus tenderness and frontal sinus tenderness present. Left Sinus: Maxillary sinus tenderness and frontal sinus tenderness present. Mouth/Throat: Pharynx: Posterior oropharyngeal erythema present. No oropharyngeal exudate. Cardiovascular: Rate and Rhythm: Normal rate and regular rhythm. Heart sounds: Normal heart sounds. No murmur. Pulmonary: Effort: Pulmonary effort is normal. No respiratory distress. Breath sounds: Normal breath sounds. No wheezing or rales. Lymphadenopathy: Cervical: No cervical adenopathy. Skin: General: Skin is warm and dry. Findings: No rash. Neurological: Mental Status: She is alert and oriented to person, place, and time. Psychiatric: Behavior: Behavior normal. Thought Content: Thought content normal. Judgment: Judgment normal. Orders - COVID-19 - DISCONTD: ketorolac (TORADOL) injection 30 mg - ondansetron (Zofran) 4 MG tablet - ketorolac (TORADOL) injection 60 mg Assessment/Plan: Problem List Items Addressed This Visit None Visit Diagnoses Nausea in adult - Primary Relevant Orders COVID-19 Lab(s) ordered, as noted above, we will notify patient once the results are available. Shot of Toradol given. 60 mg dose was all we had, but 30 mg is recommended dose for age 65+, so we wasted half the dose and gave her 30 mg of Toradol IM. Zofran prescribed for nausea. May also take hlvb-ovr-ykrtcoh medications, such as Advil or Tylenol, as needed. Push fluids. Get extra rest. Return to a primary care clinic, if needed. Go to the nearest hospital emergency department if getting much worse/extreme symptoms, etc. . ANGEL MILLIGAN [facility] 2021-02-19 15:00:00 [facility] CHIEF COMPLAINT Back Pain (follow up med refill ; adjust meds ) SUBJECTIVE Ibis Tay is a 65 y.o. female who presents for follow-up of Back Pain (follow up med refill ; adjust meds ) with diagnosis of: 1. Problem List Items Addressed This Visit Cervical radiculopathy - Primary Relevant Medications oxyCODONE-acetaminophen (Percocet) 10-325 mg tablet tiZANidine (ZANAFLEX) 4 MG tablet Failed back syndrome Relevant Medications oxyCODONE-acetaminophen (Percocet) 10-325 mg tablet tiZANidine (ZANAFLEX) 4 MG tablet Lumbar spondylosis Relevant Medications oxyCODONE-acetaminophen (Percocet) 10-325 mg tablet tiZANidine (ZANAFLEX) 4 MG tablet Patient underwent LESI on 12-19-20She notes 50% improvement but continues with low back and joint pain Since patient's last encounter patient reports persistent chronic pain requiring ongoing treatment. Describes the pain as Sharp and Stabbing Patient rates their pain score 7/10 on average and is tolerable. Patient feels that the medication regimen does help maintain the function, mobility, activity tolerance and pain levels at a tolerable level. Patient states that medications changes or injections are not necessary today Patient states that the pain symptoms are stable. Patient denies new or changing pain complaints. Patient notes that the pain is worse with general activity and improved with rest. Patient 's current pain medication regimen has been reviewed with the patient and they note that the medication regimen is effective and reports that they are taking the medication regimen as prescribed. Patient denies running out of medication early or having an excess supply of medications. Other concerns: no new concerns at this time Patient's current pain medications has been reviewed and includes: DRUG FREQ Percocet 10/325 qid qid Patient's most recent interventional procedures: PROCEDURE DATE % Relief & Duration Interlaminar Lumbar Epidural Steroid Injection L3 - L4 12/19/20 ROS Constitutional: denies dizziness, sedation, or somnolence Psychological: denies altered mentation or euphoria GI: denies significant constipation or diarrhea Musc: denies acute change in numbness, weakness, or tingling of extemities MEDICATIONS Current Outpatient Medications Medication Sig Dispense Refill - ALPRAZolam (XANAX) 1 MG tablet Take 0.5 tablets (0.5 mg total) by mouth every 6 (six) hours as needed for sleep. Do not exceed 2 full tabs a day Max Daily Amount: 2 mg 60 tablet 0 - cholecalciferol (VITAMIN D3) 125 mcg (5,000 unit) capsule Take 1 capsule (5,000 Units total) by mouth once daily. 100 capsule 3 - diaper,brief,adult,disposable Misc 1 application by Miscellaneous route 2 (two) times a day. 96 each 5 - Flovent Diskus 250 mcg/actuation Disk with Device INHALE ONE PUFF BY MOUTH TWICE A DAY 60 each 3 - food supplemt, lactose-reduced (ENSURE) Liquid Drink 2 bottles per day. Patient requests strawberry. 80448 mL PRN - hydroCHLOROthiazide (HYDRODIURIL) 25 MG tablet Take 0.5 tablets (12.5 mg total) by mouth once daily. 45 tablet 1 - ibandronate (Boniva) 150 mg tablet Take 1 tablet (150 mg total) by mouth every 30 (thirty) days. Take sitting upright once mobnthly on empty stomach with glass of water , dont lay down or eat for full hour 3 tablet 4 - ipratropium-albuteroL (DUO-NEB) 0.5-2.5 mg/3 mL nebulizer Inhale 3 mL into the lungs 4 (four) times a day. 360 vial 3 - lisinopriL (PRINIVIL,ZESTRIL) 5 MG tablet TAKE ONE TABLET BY MOUTH DAILY 30 tablet 4 - naloxone 2 mg/actuation [place], Non-Aerosol 2 mg by Nasal route as needed. 1-2 daily PRN. Proceed to ER for evaluation immediately following use. 4 each 1 - omeprazole (PriLOSEC) 40 MG capsule TAKE ONE CAPSULE BY MOUTH DAILY 30 capsule 7 - ondansetron (Zofran ODT) [address] 1-2 tablets (4-8 mg total) under the tongue every 8 (eight) hours as needed for nausea / vomiting. 12 tablet 0 - oxyCODONE-acetaminophen (Percocet) 10-325 mg tablet Take 1 tablet by mouth every 6 (six) hours as needed for pain. To Last 30days. No early refills Max Daily Amount: 4 tablets 120 tablet 0 - potassium chloride (KLOR-CON) 10 MEQ CR tablet TAKE TWO TABLETS BY MOUTH TWICE A DAY 120 tablet 4 - prazosin (MINIPRESS) 2 MG capsule Take 3 capsules (6 mg total) by mouth every evening. 90 capsule 5 - PROAIR HFA 90 mcg/actuation inhaler INHALE TWO PUFFS BY MOUTH FOUR TIMES A DAY 8.5 each 11 - tiZANidine (ZANAFLEX) 4 MG tablet Take 1 tablet (4 mg total) by mouth 2 (two) times a day for 30 days. 60 tablet 3 No current facility-administered medications for this visit. ALLERGIES Allergies Allergen Reactions - Penicillins Anaphylaxis - Gabapentin Other (See Comments) severe fatigue - Sulfa (Sulfonamide Antibiotics) Other (See Comments) Blisters inside and outside of mouth. - Wellbutrin [Bupropion Hcl] Other (See Comments) Body numbness and tingling PHYSICAL EXAM Vital Signs: BP 110/62 (BP Location: Left arm) Wt 52.6 kg (116 lb) BMI 21.21 kg/m Constitutional: Well nourished, well groomed, NAD. CARDIAC: Regular Rate LUNGS: Breathing nonlabored, no wheezing Neurologic: Alert & oriented x 3, normal gait, no focal deficits noted. Psychiatric: Affect normal, judgment normal, mood normal. Other Affected BA/OS: Chronic Opiate Therapy Risk Mitigation: Risk Assessment Evaluation Assessment Morphine Equivalents 60 Date of Last UDS SOAPP-R Score Behavior Risks none Physical Risks none H/o Illegal Substance Abuse denies H/o Alcohol abuse denies OPIATE RISK ASSESSMENT: LOW (Routine medication monitoring, Annual UDS) Assessment is based treating physicians overall evaluation of multiple factors including MME load, age, comorbidity, medication profile, and social risk factors. The risks/benefits of chronic opiate therapy was discussed with patient including failure of therapy, psychological addiction, physiological dependence, and risk withdrawal syndrome. Warning symptoms of potential opiate overuse/overdose were discussed including sedation, somnolence, and altered mentation were reviewed and I counseled patient these symptoms can occur even when patient have been on a stable dose and also can happen despite following physicians instructions. Alternative therapies were discussed including: non-opiate medications, interventional pain procedures, and Cognitive Behavioral Therapy. After discussing these alternatives with the patient, the patient has opted to decline these alternatives at this time. Patient has tried and failed more conservative measures and were either ineffective or intolerant. In my medical opinion non-opiate therapy is not appropriate to address the patient's medical condition at this time and will continue chronic opiate therapy after having addressed efficacy, adverse side effects, and safety of therapy with the patient. The patient indicates understanding of these issues and agrees with the plan. LIFESTYLE COUNSELING: Time was spent discussing the importance of a home exercise program to promote strength, activity endurance and pain tolerance. Patient was also counseled on avoidance of tobacco products for general health as well as improved chronic pain control. ASSESSMENT AND PLAN Problem List Items Addressed This Visit Cervical radiculopathy - Primary Relevant Medications oxyCODONE-acetaminophen (Percocet) 10-325 mg tablet tiZANidine (ZANAFLEX) 4 MG tablet Failed back syndrome Relevant Medications oxyCODONE-acetaminophen (Percocet) 10-325 mg tablet tiZANidine (ZANAFLEX) 4 MG tablet Lumbar spondylosis Relevant Medications oxyCODONE-acetaminophen (Percocet) 10-325 mg tablet tiZANidine (ZANAFLEX) 4 MG tablet PLAN: 1. Patient is stable functional and meeting the goals of chronic opiate therapy without adverse side effects, misuse, or safety concerns. PDMP was reviewed without redflags or other concerns. 2. I counseled her on the importance of maintaining her activity and low-impact exercise such as walking on a daily basis to promote good health and improve chronic pain management. 3. I will resume her percocet to 10/325 qid and f/u in 4 weeks The patient indicates understanding of these issues and agrees with the plan. I reviewed the patient's medical information and medical history. I have reviewed the past medical, family, and social history sections including the medications and allergies listed in the above medical record. Patient was counseled that in my practice I do not prescribe chronic opiate therapy in the presence of ongoing illegal substance use. Patient was also counseled that drug screen testing is medically necessary from time to time to help stratify risks associated with chronic opiate therapy by assessing compliance with prescribed medications as well as to identify the presence of illegal substances. Consent for drug screen testing is required for continuation of chronic opiate therapy. Electronically signed by: Isaías Cardenas MD, 02/19/2021 3:25 PM [facility] 2021-01-29 12:00:00 Subjective: Patient ID: Ibis Tay is a 65 y.o. female. No chief complaint on file. HPI The patient is a 65-year-old female who presents with chronic pain at the right great toe. This pain is associated with the toenail deformity that she has had chronically for years. In the past, she has had an attempt to remove and destroy the root of this toenail but it was unsuccessful. She tells me that it was bothering her so much lately that she attempted to trim it out herself. This was unsuccessful and the toenail and the pain remains. Past Medical History: Diagnosis Date - Anxiety Takes Xanax - Arthritis - Breast mass 2013 rt axilla - Bronchitis - Bursitis Left hip - Cancer ([facility]) left lung cancer, scheduled for left upper lobectomy at [facility] with Dr. Moore - Cervical radiculopathy sees Dr. Cardenas, gets cervical pain injections every 3 months, last done in - COPD (chronic obstructive pulmonary disease) ([facility]) - DDD (degenerative disc disease) - Depression dr. 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 pylori infection Hx of H pylori infection several months ago treated with medication, no current issues. - H/O pyloric stenosis - Hiatal hernia - HTN (hypertension) - Hypercholesteremia - Hyperlipidemia No current medications or issues. - OA (osteoarthritis) of knee - Oxygen desaturation at night 3.5 liter - Palpitations with anxiety - Peripheral vascular disease ([facility]) 10/2020 abdominal pain-stricture liliac artery - Pneumonia 1994 resolved. - PONV (postoperative nausea and vomiting) - PTSD (post-traumatic stress disorder) son was murdered 8 years ago, followed by Dr. Milly rFeire - Spinal stenosis cervical - Urinary incontinence - Wears dentures full set - Wears glasses Past Surgical History: Procedure Laterality Date - ESOPHAGEAL DILATION 2012 approx. done with upper endoscopy - KNEE ARTHROPLASTY Right 2010 - LUMBAR FUSION 1995 - LUNG LOBECTOMY Left 10/11/2017 Upper - CO INTRODUCTION CATHETER AORTA Right 11/03/2020 Procedure: ABDOMINAL AORTOGRAM; Surgeon: Imelda Swan MD; Location: [facility]; Service: Vascular - CO TOTAL KNEE ARTHROPLASTY Right 05/28/2014 Procedure: REPLACEMENT TOTAL JOINT KNEE RIGHT / BETO ; Surgeon: Isaak Moncada MD; Location: [facility] OR; Service: Orthopedics - SPINE SURGERY lumbar fusion - TENDON RELEASE Right arm - TOTAL HIP ARTHROPLASTY Left 09/26/14 hip hem-iarthoplasty - TOTAL KNEE ARTHROPLASTY Left 11/23 - TUBAL LIGATION Bilateral - UPPER GASTROINTESTINAL ENDOSCOPY 2012 approx. diagnosed with H. Pylori and esophagus dilated. - UPPER GASTROINTESTINAL ENDOSCOPY @[email or web address]@ Allergies Allergen Reactions - Penicillins Anaphylaxis - Gabapentin Other (See Comments) severe fatigue - Sulfa (Sulfonamide Antibiotics) Other (See Comments) Blisters inside and outside of mouth. - Wellbutrin [Bupropion Hcl] Other (See Comments) Body numbness and tingling Family History Problem Relation Age of Onset - Other Other Hx: Yes Dx: Diabetes Fam Mem: Family h/o - Drug abuse Other - Other Other Hx: Yes Dx: Hypertension Fam Mem: Mother - Drug abuse Other - Hypertension Mother - Heart disease Mother - Diabetes Mother - No Known Problem Father - Other Sister - Cancer Sister - Other Other Hx: Yes Dx: Heart disease Fam Mem: Mother - Diabetes Maternal Grandmother Social History Socioeconomic History - Marital status: Spouse name: Not on file - Number of children: Not on file - Years of education: 14 - Highest education level: Not on file Occupational History - Not on file Social Needs - Financial resource strain: Not very hard - Food insecurity Worry: Sometimes true Inability: Sometimes true - Transportation needs Medical: Yes Non-medical: Yes Tobacco Use - Smoking status: Current Every Day Smoker Packs/day: 0.50 Years: 44.00 Pack years: 22.00 Types: Cigarettes - Smokeless tobacco: Never Used Substance and Sexual Activity - Alcohol use: Yes - Drug use: No - Sexual activity: Not Currently Lifestyle - Physical activity Days per week: Not on file Minutes per session: Not on file - Stress: Not on file Relationships - Social connections Talks on phone: Not on file Gets together: Not on file Attends denominational service: Not on file Active member of club or organization: Not on file Attends meetings of clubs or organizations: Not on file Relationship status: Not on file - Intimate partner violence Fear of current or ex partner: Not on file Emotionally abused: Not on file Physically abused: Not on file Forced sexual activity: Not on file Other Topics Concern - Not on file Social History Narrative - Not on file Review of Systems The patient reports no fevers, chills, nasea, vomiting, shortness of breath and chest pain. Objective: BP 153/75 (BP Location: Left arm, Patient Position: Sitting) Pulse 68 Temp 36.1 C (96.9 F) Resp (P) 17 Physical Exam General: The patient was alert and orientated x3. They were in no acute distress. Integument: There was noted to be severe deformity associated with the right hallux toenail. This includes discoloration and thickening. There is subungual debris and pinching of the nail bed skin. There is no signs of ascending cellulitis or purulence. There is signs of dried blood at the distal end of the toe. There is no significant erythema or edema noted. There is no ecchymosis identified or signs of injury. Cardiovascular: The patient had non palpable dorsalis pedis and posterior tibial arteries, bilateral. The patient had no edema or lymphademia at the feet or ankles. Capillary fill time was instantaneous to the digits of the feet x10. Neurological: The patient was sensate to light touch to the plantar aspects of the feet. Musculoskeletal:The patient had a specific point of maximum tenderness at the right hallux toenail. There was no instability assessed at the joints of the feet or ankles. There was normal, painfree range of motion at the joints of the feet and ankles without crepitus. They had 5/5 muscle strength to all compartments of the lower extremities. Procedures The patient and I discussed the diagnosis and treatment options. All questions were answered. She elected to have a total nail avulsion at the right hallux. A digital block was accomplished using 1% lidocaine. After the total nail avulsion, a dressing was applied which included a topical antibiotic. There was excellent CFT to the end of the digit follow application of the dressing. Post op instructions were dispensed to the patient and the patient will contact us if she has any questions or concerns. Assessment/Plan: Problem List Items Addressed This Visit None Visit Diagnoses Onychogryphosis - Primary Pain around toenail, right foot The patient and I discussed the toenail deformity that she suffers from at the right great toe. We also discussed her peripheral arterial disease in depth and how this will affect the possibility of healing at this location. We discussed multiple treatment options including atraumatic toenail avulsion along with a total nail avulsion and even matrixectomy. Although the patient preferred to have a matrixectomy, I deemed this to risky given her history of peripheral arterial disease, smoking and her clinical exam findings. At this time, her only options would be the least traumatic which would avoid a matrixectomy. The patient agreed with the plan. She is not interested in atraumatic management because it would take too long and her pain is so significant. She elected to have a total nail avulsion in the office today. She tolerated this procedure well and all questions were answered. She will contact us if she has any questions or concerns. I did counseling center manager her on postoperative pain as well as reducing her smoking which has a negative effect on healing. This note was compiled in part using Pegg'd voice recognition technology. Despite the note being reviewed and due to limitation of the technology it may contain typographical, grammatical, and voice recognition errors. . CLEOPATRA ALLEN [facility] 2021-01-27 11:00:00 Patient, Ibis anderson s consent to iMke Ann Jr., MD's use of Augmedix at today's visit. OL[facility] 2021-01-27 11:00:00 Medicare Subsequent Wellness Visit (Third or Visit) CPT Code is G0439 Billing Advice includes: Update Medical/Family history Measurement of height, weight, BMI, BP and complete exam including pap/breast and prostate if appropriate Screening for Cognitive disorder, depression, ADL, and Falls Update health risk factors Update list Provide a written list of risk factors and screening tests to patient in the patient instructions Advance Directive Planning if appropriate Chief Complaint: Chief Complaint Patient presents with - Annual Exam Medicare - Nail Problem Tried to cut toenail on right foot and she cut herself pretty bad. Would like it checked. - Injections Would like allergy and toradol shot. HPI: Ibis Tay is a 65 y.o. female who is here for her Medicare Annual Wellness physical exam. She describes her current health as fair, which would improve with reduced chronic pain of her lower back and bilateral legs. She is currently retired. Her diet is described as fair, which would improve with an increased appetite. Her exercise level is whla-by-omed due to the chronic pain in her lower back and bilateral legs and weakness in bilateral legs. She is not sexually active. Her immunizations have been reviewed. Her age appropriate risk factors for cardiovascular disease, sexual risk, lifestyle risk have been reviewed and addressed. The patient was trimming her toenails last night when she accidentally cut the ingrown right great toenail and that resulted in pain and swelling. She wishes to get the ingrown toenail removed. The patient has not seen a shake sawyer for further evaluation. She denies fever or chills. The patient has a history of seasonal allergies. She reports rhinorrhea, sneezing, itchy eyes, and periorbital edema. She does not take any antihistamine. The patient has benefited from Kenalog injections in the past and the last shot was administered on 12/22/2018. She requests to receive another Kenalog shot today. The patient has not seen an application security engineer for further evaluation of her chronic condition. The patient also has a history of cervical radiculopathy, failed back syndrome, and lumbar spondylosis. She remains on Percocet 7.5/325 mg 1 tablet 4 times daily as needed that she gets from Dr. Isaías Cardenas, anesthesiologist. The patient also uses naloxone 2 mg 1-2 sprays by each nostril once daily as needed. She received lumbar epidural steroid injection (LESI) on 12/19/2020 with 50% improvement in her chronic pain, but it only lasted for a short-time. She suspects of having rheumatoid arthritis due to the daily pain and stiffness in her lower back, cervical spine, and bilateral hands and their digits. She has not been evaluated for rheumatoid arthritis in the past. The patient also requests a shot of Toradol for her diffuse pain. The patient also has a history of osteoporosis and has been prescribed Fosamax 70 mg 1 tablet once weekly, but she has not been taking it for the past few months as it caused nausea and emesis. She is presently asymptomatic. The patient has not sustained any recent fractures. The patient also has a history of vitamin D deficiency and continues on Vitamin D3 125 mcg (5,000 international units) 1 capsule once daily. Her vitamin D level was last checked on 01/28/2017, and it was low at 20.9 ng/mL. The patient also has a history of stage 1 invasive adenocarcinoma of lung (in remission) and is status post left upper lobectomy on 10/11/[address] Angy Moore, cardiothoracic surgeon. She follows up with Hematology/Oncology periodically. The patient also has a history of chronic obstructive pulmonary disease and continues on DuoNeb 3 mL by nebulization 4 times daily and ProAir HFA 90 mcg 2 puffs 4 times daily. She has also been prescribed Flovent Diskus 250 mcg 1 puff twice daily, but does not use it as she is unable to tolerate its taste. The patient continues to smoke cigarettes on a daily basis. Patient also has a history of hypertension. She continues on HydroDIURIL 25 mg half tablet once daily, lisinopril 5 mg 1 tablet once daily, and Minipress 2 mg 3 capsules every evening. Her blood pressure today is 118/62. She is trying to follow a low-salt diet, walk 30 minutes 5 times weekly, and denies headaches, chest pain, shortness of breath, or lower extremity swelling at present and does need refills of her blood pressure medications. She was screened for falls risk, depression, functional ability and cognitive impairment within the past year. The results and plan are detailed below. ROS: Review of Systems General: No weight gain or loss, no loss of appetite, no fever, no chills, no fatigue, no night sweats. Skin and lymphatics: No rashes, no skin discolorations, no easy bruising, no lymphadenopathy. Head: No headaches, no dizziness, no masses, no seizures. Eyes: Positive for periorbital edema and itching. No visual changes, no eye pain. Ears: No tinnitus, no vertigo, no hearing loss. Nose: Positive for rhinorrhea and sneezing. No nosebleeds, no sinus disease. Mouth and throat: Denies dental disease, no hoarseness, no throat pain. Respiratory: No cough, no shortness of breath, no sputum production. Cardiovascular: No chest pain, no orthopnea, no paroxysmal nocturnal dyspnea, or dyspnea on exertion, no claudication, no edema, no valvular disease. Gastrointestinal: No dysphagia, no abdominal pain, no nausea, no vomiting, no hematemesis, no diarrhea, no constipation, no melena, no hematochezia. Genitourinary: No dysuria, no frequency, no hesitancy, no hematuria, no discharge. Musculoskeletal: Positive for polyarthralgia. No swelling. Neuropsychiatric: No seizures, no memory changes, no depression. Neurologic: No unilateral or bilateral numbness, no tingling, no difficulty with speech, no vision changes, no problems with balance, denies dizziness, denies headache. Allergies and Medications: Allergies Allergen Reactions - Penicillins Anaphylaxis - Gabapentin Other (See Comments) severe fatigue - Sulfa (Sulfonamide Antibiotics) Other (See Comments) Blisters inside and outside of mouth. - Wellbutrin [Bupropion Hcl] Other (See Comments) Body numbness and tingling Chronic Problem List: Patient Active Problem List Diagnosis Date Noted - Lumbar spondylosis 11/27/2020 - Cervical radiculopathy 11/27/2020 - Stricture of artery ([facility]) 10/24/2020 - Major depressive disorder, recurrent episode, moderate ([facility]) 09/16/2020 - Vascular disease, peripheral ([facility]) 09/16/2020 - Secondary malignant neoplasm of other specified sites ([facility]) 09/16/2020 - Compression fracture of body of thoracic vertebra ([facility]) 05/21/2018 - Non-small cell carcinoma of lung ([facility]) 05/21/2018 - Right hand pain - Urinary tract infection without hematuria 11/18/2017 - Fall at home, sequela 11/18/2017 - Acute cystitis without hematuria 11/02/2017 - Malignant neoplasm of upper lobe, left bronchus or lung ([facility]) 10/11/2017 - Lung cancer ([facility]) 08/30/2017 - Mediastinal lymphadenopathy 08/30/2017 - Adenocarcinoma of lung, left ([facility]) - Other chest pain 07/06/2017 - Pulmonary nodule 07/06/2017 - Severe sepsis ([facility]) - Pneumonia of left lower lobe due to infectious organism 07/01/2017 - Community acquired pneumonia 06/03/2017 - COPD exacerbation ([facility]) 06/03/2017 - Hypoxia 06/03/2017 - Dyslipidemia 04/15/2017 - Vitamin D deficiency 02/08/2017 - Anxiety state 01/30/2015 - Pain in joint, lower leg 01/30/2015 - Routine general medical examination at a health care facility 01/30/2015 - Osteoarthritis of knee 01/30/2015 - S/P total knee arthroplasty 01/07/2015 - S/P hip hemiarthroplasty- Left 01/07/2015 - Depression 11/19/2014 - Hip fracture, left (HCC) 09/26/2014 - Knee osteoarthritis 05/28/2014 - Knee joint replacement status 05/28/2014 - Trochanteric bursitis 05/24/2014 - History of total knee arthroplasty 04/02/2014 - Knee pain 04/02/2014 - Screening 03/05/2014 - Cervical spondylosis with myelopathy 07/02/2013 - Spinal stenosis 10/10/2012 - Anxiety state 04/03/2012 - Cervical disc disease 04/03/2012 - Cervical radiculopathy 04/03/2012 - Hypercholesteremia 02/15/2011 - Hyperlipidemia 02/15/2011 - Anxiety attack 02/15/2011 - Generalized anxiety disorder 02/15/2011 - Smoker 02/15/2011 - Essential hypertension 02/15/2011 - Acute bronchitis 02/15/2011 - AR (allergic rhinitis) 02/15/2011 - GERD (gastroesophageal reflux disease) 02/15/2011 - Osteoarthritis of right knee 02/15/2011 - Arthritis 02/15/2011 - DDD (degenerative disc disease) 02/15/2011 - Failed back syndrome 02/15/2011 Immunization History: Immunization History Administered Date(s) Administered - (Shingrix, Recombinant, Adjuvanted) Zoster Vaccine IM 03/19/2020 - Influenza High Dose Preservative Free IM 04/05/2019 - Influenza TIV (IM) 03/24/2010, 05/01/2012 - Influenza Three-TIV Non-Preservative Free 3+ Years IM 04/17/2014 - Pneumococcal Conjugate (Prevnar) 13-Valent 06/15/2016 - Pneumococcal Polysaccharide (Pneumovax) 03/18/2009, 04/18/2014 - Td Preservative Free 7+ Years IM 01/29/2013 - Tdap 04/15/2009, 12/29/2016 Past Medical/Surgical History: Past Medical History: Diagnosis Date - Anxiety Takes Xanax - Arthritis - Breast mass 2013 rt axilla - Bronchitis - Bursitis Left hip - Cancer (HCC) left lung cancer, scheduled for left upper lobectomy at [facility] with Dr. Moore - Cervical radiculopathy sees Dr. 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 pylori infection Hx of H pylori infection several months ago treated with medication, no current issues. - H/O pyloric stenosis - Hiatal hernia - HTN (hypertension) - Hypercholesteremia - Hyperlipidemia No current medications or issues. - OA (osteoarthritis) of knee - Oxygen desaturation at night 3.5 liter - Palpitations with anxiety - Peripheral vascular disease (HCC) 10/2020 abdominal pain-stricture liliac artery - Pneumonia 1994 resolved. - PONV (postoperative nausea and vomiting) - PTSD (post-traumatic stress disorder) son was murdered 8 years ago, followed by Dr. Milly Freire - Spinal stenosis cervical - Urinary incontinence - Wears dentures full set - Wears glasses Past Surgical History: Procedure Laterality Date - ESOPHAGEAL DILATION 2012 approx. done with upper endoscopy - KNEE ARTHROPLASTY Right 2010 - LUMBAR FUSION 1995 - LUNG LOBECTOMY Left 10/11/2017 Upper - CO INTRODUCTION CATHETER AORTA Right 11/03/2020 Procedure: ABDOMINAL AORTOGRAM; Surgeon: Imelda Swan MD; Location: [facility]; Service: Vascular - CO TOTAL KNEE ARTHROPLASTY Right 05/28/2014 Procedure: REPLACEMENT TOTAL JOINT KNEE RIGHT / BETO ; Surgeon: Isaak Moncada MD; Location: [facility] OR; Service: Orthopedics - SPINE SURGERY lumbar fusion - TENDON RELEASE Right arm - TOTAL HIP ARTHROPLASTY Left 09/26/14 hip hem-iarthoplasty - TOTAL KNEE ARTHROPLASTY Left 11/23 - TUBAL LIGATION Bilateral - UPPER GASTROINTESTINAL ENDOSCOPY 2012 approx. diagnosed with H. Pylori and esophagus dilated. - UPPER GASTROINTESTINAL ENDOSCOPY Family History: Family History Problem Relation Age of Onset - Other Other Hx: Yes Dx: Diabetes Fam Mem: Family h/o - Drug abuse Other - Other Other Hx: Yes Dx: Hypertension Fam Mem: Mother - Drug abuse Other - Hypertension Mother - Heart disease Mother - Diabetes Mother - No Known Problem Father - Other Sister - Cancer Sister - Other Other Hx: Yes Dx: Heart disease Fam Mem: Mother - Diabetes Maternal Grandmother Extended Social History: Social History Socioeconomic History - Marital status: Spouse name: Not on file - Number of children: Not on file - Years of education: 14 - Highest education level: Not on file Occupational History - Not on file Social Needs - Financial resource strain: Not very hard - Food insecurity Worry: Sometimes true Inability: Sometimes true - Transportation needs Medical: Yes Non-medical: Yes Tobacco Use - Smoking status: Current Every Day Smoker Packs/day: 0.50 Years: 44.00 Pack years: 22.00 Types: Cigarettes - Smokeless tobacco: Never Used Substance and Sexual Activity - Alcohol use: Yes - Drug use: No - Sexual activity: Not Currently Lifestyle - Physical activity Days per week: Not on file Minutes per session: Not on file - Stress: Not on file Relationships - Social connections Talks on phone: Not on file Gets together: Not on file Attends denominational service: Not on file Active member of club or organization: Not on file Attends meetings of clubs or organizations: Not on file Relationship status: Not on file - Intimate partner violence Fear of current or ex partner: Not on file Emotionally abused: Not on file Physically abused: Not on file Forced sexual activity: Not on file Other Topics Concern - Not on file Social History Narrative - Not on file Education and Employment Education Level: Some College or Technical School Employment: Unemployed Experience: No Living Conditions Marital Status: Children: Yes Comments: 1 son and 1 daughter Safety Feel Safe In Home and With Partner?: Yes Seat Belts: Yes Access to Firearms: No Smoke Detectors: Yes Radon Detectors: No Carbon Monoxide Detectors: Yes Tattoos: No Patient Devices Glasses: Yes Contacts: No Hearing Aids: No Dentures: Yes Lifestyle Baptist Affiliation: Yazidi Spirituality: yes Exercise: Other Diet: Other Care Team: Patient Care Team: Mike Ann Jr., MD as PCP - General Nu Ross RN as Oncology Nurse Navigator Parth Lemos MD as Psychiatrist Objective: No exam data present BP 118/62 Pulse 86 Resp 18 Temp 36.2 C (97.2 F) (Temporal Artery (forehead)) SpO2 98% Wt 55 kg (121 lb 3.2 oz) Ht 157.5 cm (5' 2.01) Body mass index is 22.16 kg/m . PE: Physical Exam Nursing note and vitals reviewed. Constitutional: Patient appears well-developed and well-nourished. No distress. Head: Normocephalic and atraumatic. Right Ear: External ear normal. No erythema. Bright tympanic membrane. Bony landmarks intact. Left Ear: External ear normal. No erythema. Bright tympanic membrane. Bony landmarks intact. Mouth/Throat: No oropharyngeal exudate. Nose: Her turbinates are pale. Neck: No JVD present. No tracheal deviation present. No thyromegaly present. Cardiovascular: Normal rate, regular rhythm, normal heart sounds and intact distal pulses. Exam reveals no gallop and no friction rub. No murmur heard. Pulmonary/Chest: Effort normal. No respiratory distress. Patient has no wheezes. Patient has no rales. Patient exhibits no tenderness. Abdominal: Soft. Patient exhibits no distension and no mass. There is no tenderness to palpation. There is no rebound and no guarding. Musculoskeletal: Normal range of motion. Patient exhibits no edema and no tenderness. Skin: Her right great toenail is thickened, yellow, and ingrown. She has a horizontal sagittal scar off to the left side on her back. Skin is warm. No rash noted. Patient is not diaphoretic. No erythema. No pallor. Assessment/Plan: Problem List Items Addressed This Visit Malignant neoplasm of upper lobe, left bronchus or lung (HCC) (Chronic) Essential hypertension Relevant Medications prazosin (MINIPRESS) 2 MG capsule Vitamin D deficiency Relevant Orders Vitamin D Lvl (25-OH VitD) Other Visit Diagnoses Medicare annual wellness visit, subsequent - Primary Ingrown nail of great toe of right foot Relevant Orders Ambulatory referral to Podiatry Seasonal allergies Relevant Medications triamcinolone acetonide (KENALOG-40) injection 60 mg (Completed) Polyarthralgia Relevant Medications triamcinolone acetonide (KENALOG-40) injection 60 mg (Completed) ketorolac (TORADOL) injection 60 mg (Completed) Other Relevant Orders Rheumatoid factor Sedimentation rate, automated Age-related osteoporosis without current pathological fracture Relevant Medications ibandronate (Boniva) 150 mg tablet Chronic obstructive pulmonary disease, unspecified COPD type (HCC) (Chronic) 1. Medicare annual wellness visit, subsequent Adult immunization schedule reviewed. Suggested tetanus diphtheria 1 dose booster every 10 years and consider single-dose pertussis update every 10 years as well. Elective annual influenza vaccination. Consider herpes zoster vaccination once age 60 year-old or older. Suggested height, weight, blood pressure, and BMI checks every 1-2 years. Clinical breast exam every year. Digital rectal exam annually age 50 or greater. If previous pelvic exam and Pap smear were normal, then consider repeat every 3-5 years. Discussed screening mammogram every 1-2 years. Informed about nutritional assessment and yearly weight-check. Discussed injury prevention with seat belt and helmet use. Discussed smoking cessation as appropriate. Safe sex counseling and encouraged regular aerobic exercise 30 minutes 5 times weekly. 2. Ingrown nail of great toe of right foot The patient was given a referral and a contact number to schedule an appointment with Podiatry. - Ambulatory referral to Podiatry 3. Seasonal allergies The patient was administered Kenalog-40 60 mg. - triamcinolone acetonide (KENALOG-40) injection 60 mg 4. Polyarthralgia The patient was administered Kenalog-40 60 mg. She was also administered Toradol 60 mg. Ordered rheumatoid factor and an automated sedimentation rate. We will call the patient with the results. - Rheumatoid factor - Sedimentation rate, automated - triamcinolone acetonide (KENALOG-40) injection 60 mg - ketorolac (TORADOL) injection 60 mg 5. Age-related osteoporosis without current pathological fracture The patient was prescribed Boniva 150 mg 1 tablet once monthly as directed. - ibandronate (Boniva) 150 mg tablet; Take 1 tablet (150 mg total) by mouth every 30 (thirty) days. Take sitting upright once mobnthly on empty stomach with glass of water , dont lay down or eat for full hour Dispense: 3 tablet; Refill: 4 6. Vitamin D deficiency Ordered a 25-hydroxy vitamin D test. We will call the patient with the result. - Vitamin D Lvl (25-OH VitD) 7. Malignant neoplasm of upper lobe, left bronchus or lung (HCC) Currently in remission. Follow-up with Hematology/Oncology as scheduled. 8. Chronic obstructive pulmonary disease, unspecified COPD type (HCC) The patient will be tried on Azmacort or its equivalent since she is unable to use Flovent Diskus due to its taste. Continue using DuoNeb 3 mL by nebulization 4 times daily and ProAir HFA 90 mcg 2 puffs 4 times daily. 9. Essential hypertension The patient was given a refill of Minipress 2 mg 3 capsules every evening. Continue current medication therapy. Goal blood pressure below 140/90. Follow low salt diet as well as Dash Diet suggestions, aerobic exercise 30 minutes 5x weekly, keep weight close to ideal. - prazosin (MINIPRESS) 2 MG capsule; Take 3 capsules (6 mg total) by mouth every evening. Dispense: 90 capsule; Refill: 5 Screening Tools Assessment/Documentation: Falls Screen: (Positive response to any questions place patient at increased risk of falls) Fall Screening Score: positive Plan: She was recommended considering aquatic therapy for overall muscle strengthening.. Depression Screen: (PHQ9 > 10 Likely Major Depression, 5-9 = Mild depression, 10-14= Moderate depression, 15-19 Moderately severe depression, > 20 =severe depression) PHQ2 = PHQ9= Plan: Depression screen is negative. Functional Assessment: (Patients who need assistance or are dependent should be assessed for any home assistance needs) ADL/IADL screen: Independent Plan: No current risk or needs. CognitiveScreen: (Minicognitive >11 screening normal , MMSE >than 27 is normal (24 if only grade or middle school), 19-26 indicates mild cognitive impairment and rescreening in 6 months to one year is indicated if the index of suspicion is low. A Score of 12-19 indicates mild to moderate dementia and treatment should be initiated along with referral for further testing if indicated. Scores less than 12 indicate moderate to severe dementia and treatment should be continued or increased. Consideration for home care or SNF care should be undertaken) Minicog total = MMSE total = Plan: Normal Cognition no needs identified. Advance Directives Discussion: (If patient does not have any advance directives on file, the advance directives should be printed out and given to patient as part of the visit summary) Advance Directives Booklet Advance Directives have been reviewed with Ibis Tay and/or family: Discussed advance directives with patient and Form given if needed 5-10 Year Screening Plan [place] Score =The CVD Risk score (D'Agostino, et al., 2008) failed to calculate for the following reasons: The patient has a prior ID, stroke, CHF, or peripheral vascular disease diagnosis CAD risk factors: Smoking, Hypertension and Age (Men>/=45, Women>/=55) Sexual Risk =not currently sexually active Lifestyle risk = smoking Health Maintenance Topic Date Due - COVID-19 VACCINE (1) Never done - COLON CANCER SCREENING FIT-DNA Never done - DXA SCAN 01/17/2019 - PNEUMOCOCCAL 65+ YRS (2 of 2 - PPSV23) 04/18/2019 - MEDICARE SUBSEQUENT WELLNESS (YEAR 3 +) 12/23/2019 - SHINGLES VACCINES (2 of 2) 05/14/2020 - TOBACCO CESSATION SCREENING (12+) Never done - FALLS RISK SCREENING Never done - INFLUENZA VACCINE (1) 03/18/2021 - BREAST CANCER SCREENING 12/31/2021 - DTAP/TDAP/TD VACCINES (4 - Td) 12/29/2026 - HEPATITIS C SCREENING Completed Goals Addressed None The patient indicates understanding of these issues and agrees with the plan. I reviewed the patient's medical information and medical history. I have reviewed the past medical, family, and social history sections including the medications and allergies listed in the above medical record IMino am scribing for and in the presence of Mike Ann Jr., MD. .I have read and agree with the documentation that has been completed regarding this visit and attest, that it is an accurate record of both my words and actions during the visit. . MIKE ANN JR [facility] 2020-12-25 14:10:00 [facility] CHIEF COMPLAINT No chief complaint on file. SUBJECTIVE Ibis Tay is a 65 y.o. female who presents for follow-up of No chief complaint on file. with diagnosis of: 1. Problem List Items Addressed This Visit Cervical radiculopathy Failed back syndrome - Primary Lumbar spondylosis Patient underwent LESI on 12-19-20She notes 50% improvement but continues with low back and joint pain Since patient's last encounter patient reports persistent chronic pain requiring ongoing treatment. Describes the pain as Sharp and Stabbing Patient rates their pain score 7/10 on average and is tolerable. Patient feels that the medication regimen does help maintain the function, mobility, activity tolerance and pain levels at a tolerable level. Patient states that medications changes or injections are not necessary today Patient states that the pain symptoms are stable. Patient denies new or changing pain complaints. Patient notes that the pain is worse with general activity and improved with rest. Patient 's current pain medication regimen has been reviewed with the patient and they note that the medication regimen is effective and reports that they are taking the medication regimen as prescribed. Patient denies running out of medication early or having an excess supply of medications. Other concerns: no new concerns at this time Patient's current pain medications has been reviewed and includes: DRUG FREQ Percocet qid qid Patient's most recent interventional procedures: PROCEDURE DATE % Relief & Duration Interlaminar Lumbar Epidural Steroid Injection L3 - L4 12/19/20 ROS Constitutional: denies dizziness, sedation, or somnolence Psychological: denies altered mentation or euphoria GI: denies significant constipation or diarrhea Musc: denies acute change in numbness, weakness, or tingling of extemities MEDICATIONS Current Outpatient Medications Medication Sig Dispense Refill - alendronate (FOSAMAX) 70 MG tablet TAKE 1 TABLET BY MOUTH ONCE WEEKLY ON AN EMPTY STOMACH BEFORE BREAKFAST. REMAIN UPRIGHT FOR 30 MINUTES & TAKE WITH 8 OUNCES OF WATER 12 tablet 1 - ALPRAZolam (XANAX) 1 MG tablet TAKE 1/2 TABLET BY MOUTH FOUR TIMES A DAY NEEDED FOR SLEEP 60 tablet 0 - ARIPiprazole (ABILIFY) 15 MG tablet Take 1 tablet (15 mg total) by mouth once daily. 30 tablet 2 - cholecalciferol (VITAMIN D3) 125 mcg (5,000 unit) capsule TAKE ONE CAPSULE BY MOUTH DAILY 90 capsule 3 - diaper,brief,adult,disposable Misc 1 application by Miscellaneous route 2 (two) times a day. 96 each 5 - escitalopram oxalate (LEXAPRO) 20 MG tablet Take 1 tablet (20 mg total) by mouth once daily. 30 tablet 5 - Flovent Diskus 250 mcg/actuation Disk with Device INHALE ONE PUFF BY MOUTH TWICE A DAY 60 each 3 - food supplemt, lactose-reduced (ENSURE) Liquid Drink 2 bottles per day. Patient requests strawberry. 71576 mL PRN - hydroCHLOROthiazide (HYDRODIURIL) 25 MG tablet TAKE ONE TABLET BY MOUTH DAILY (Patient taking differently: Take 12.5 mg by mouth once daily. ) 90 tablet 1 - ipratropium-albuteroL (DUO-NEB) 0.5-2.5 mg/3 mL nebulizer Inhale 3 mL into the lungs 4 (four) times a day. 360 vial 3 - lisinopriL (PRINIVIL,ZESTRIL) 5 MG tablet TAKE ONE TABLET BY MOUTH DAILY 30 tablet 0 - naloxone 2 mg/actuation [place], Non-Aerosol 2 mg by Nasal route as needed. 1-2 daily PRN. Proceed to ER for evaluation immediately following use. 4 each 1 - omeprazole (PriLOSEC) 40 MG capsule Take 1 capsule (40 mg total) by mouth once daily. (Patient taking differently: Take 40 mg by mouth as needed. ) 90 capsule 0 - omeprazole (PriLOSEC) 40 MG capsule TAKE ONE CAPSULE BY MOUTH DAILY 30 capsule 7 - ondansetron (Zofran ODT) [address] 1-2 tablets (4-8 mg total) under the tongue every 8 (eight) hours as needed for nausea / vomiting. 12 tablet 0 - oxyCODONE-acetaminophen (PERCOCET) 10-325 mg tablet Take 1 tablet by mouth once every 4 (four) hours as needed for pain. - oxyCODONE-acetaminophen (Percocet) 10-325 mg tablet Take 1 tablet by mouth every 6 (six) hours as needed for pain. To Last 30days. No early refills Max Daily Amount: 4 tablets 120 tablet 0 - potassium chloride (KLOR-CON) 10 MEQ CR tablet TAKE TWO TABLETS BY MOUTH TWICE A DAY 120 tablet 0 - prazosin (MINIPRESS) 2 MG capsule Take 3 capsules (6 mg total) by mouth every evening. 90 capsule 2 - PROAIR HFA 90 mcg/actuation inhaler INHALE TWO PUFFS BY MOUTH FOUR TIMES A DAY 8.5 each 11 - tiZANidine (ZANAFLEX) 4 MG tablet TAKE ONE TABLET BY MOUTH TWICE A DAY 60 tablet 1 No current facility-administered medications for this visit. ALLERGIES Allergies Allergen Reactions - Penicillins Anaphylaxis - Gabapentin Other (See Comments) severe fatigue - Sulfa (Sulfonamide Antibiotics) Other (See Comments) Blisters inside and outside of mouth. - Wellbutrin [Bupropion Hcl] Other (See Comments) Body numbness and tingling PHYSICAL EXAM Vital Signs: There were no vitals taken for this visit. Constitutional: Well nourished, well groomed, NAD. CARDIAC: Regular Rate LUNGS: Breathing nonlabored, no wheezing Neurologic: Alert & oriented x 3, normal gait, no focal deficits noted. Psychiatric: Affect normal, judgment normal, mood normal. Other Affected BA/OS: Chronic Opiate Therapy Risk Mitigation: Risk Assessment Evaluation Assessment Morphine Equivalents 60 Date of Last UDS SOAPP-R Score Behavior Risks none Physical Risks none H/o Illegal Substance Abuse denies H/o Alcohol abuse denies OPIATE RISK ASSESSMENT: LOW (Routine medication monitoring, Annual UDS) Assessment is based treating physicians overall evaluation of multiple factors including MME load, age, comorbidity, medication profile, and social risk factors. The risks/benefits of chronic opiate therapy was discussed with patient including failure of therapy, psychological addiction, physiological dependence, and risk withdrawal syndrome. Warning symptoms of potential opiate overuse/overdose were discussed including sedation, somnolence, and altered mentation were reviewed and I counseled patient these symptoms can occur even when patient have been on a stable dose and also can happen despite following physicians instructions. Alternative therapies were discussed including: non-opiate medications, interventional pain procedures, and Cognitive Behavioral Therapy. After discussing these alternatives with the patient, the patient has opted to decline these alternatives at this time. Patient has tried and failed more conservative measures and were either ineffective or intolerant. In my medical opinion non-opiate therapy is not appropriate to address the patient's medical condition at this time and will continue chronic opiate therapy after having addressed efficacy, adverse side effects, and safety of therapy with the patient. The patient indicates understanding of these issues and agrees with the plan. LIFESTYLE COUNSELING: Time was spent discussing the importance of a home exercise program to promote strength, activity endurance and pain tolerance. Patient was also counseled on avoidance of tobacco products for general health as well as improved chronic pain control. ASSESSMENT AND PLAN Problem List Items Addressed This Visit Cervical radiculopathy Failed back syndrome - Primary Lumbar spondylosis PLAN: 1. Patient is stable functional and meeting the goals of chronic opiate therapy without adverse side effects, misuse, or safety concerns. PDMP was reviewed without redflags or other concerns. 2. I counseled her on the importance of maintaining her activity and low-impact exercise such as walking on a daily basis to promote good health and improve chronic pain management. 3. I will decrease her percocet to 7.5/325 qid and f/u in 8 weeks The patient indicates understanding of these issues and agrees with the plan. I reviewed the patient's medical information and medical history. I have reviewed the past medical, family, and social history sections including the medications and allergies listed in the above medical record. Patient was counseled that in my practice I do not prescribe chronic opiate therapy in the presence of ongoing illegal substance use. Patient was also counseled that drug screen testing is medically necessary from time to time to help stratify risks associated with chronic opiate therapy by assessing compliance with prescribed medications as well as to identify the presence of illegal substances. Consent for drug screen testing is required for continuation of chronic opiate therapy. Electronically signed by: Isaías Cardenas MD, 12/25/2020 1:38 PM [facility] 2020-12-19 08:40:00 Operative Note Ibis Jose Angel Tay Primary Care Physician: Mike Ann Jr, MD : 1955 Age: 65 y.o. Procedure Information Date of Procedure: December 19, 2020 Site of Service: [facility] Pre-operative Diagnosis: Lumbar Radiculopathy Post-operative Diagnosis: SAME Procedure: Interlaminar Lumbar Epidural Steroid Injection L3-4 Surgeon: Isaías Cardenas MD Sales Representative Leather Goods(s): NONE Anesthesia:LOCAL Estimated Blood Loss: MINIMAL FINDINGS: NONE Complications: NONE DISCUSSION: After informed consent was obtained, patient was taken to procedure room and placed on radiolucent procedure table. Patient back was prepped and draped in normal sterile fashion. Fluoroscopy was used to identify the L3-4 space and skin overlying the noted landmark was anesthetized using 3 ml of 1%lidocaine. An 18 gauge Toughy needle was then advanced in a midline interlaminar approach to the epidural space using saline loss of resistance technique. Loss of resistance was encountered at a depth of 8 cm. 2 cc of ISOVUE M200 was injected after negative aspiration epidural flow pattern was visualized in both AP and Lateral projections. After repeat negative aspiration a steroid solution containing 10mgDexamethasone and 3ml of 1% Lidocaine was injected without pressure paraesthesia. Vital signs were monitored throughout the procedure and remained stable. Patient tolerated the procedure and was sent to PACU in stable condition without apparent complication. Signed: Isaías Cardenas MD 11/30/2020 4:12 PM [facility] 2020-11-27 14:00:00 [facility] CHIEF COMPLAINT Back Pain (follow up ; med refill ) and Neck Pain (pain returning ) SUBJECTIVE Ibis Tay is a 65 y.o. female who presents for follow-up of Back Pain (follow up ; med refill ) and Neck Pain (pain returning ) with diagnosis of: 1. Lumbar spondylosis 2. Cervical stenosis with radiculopathy 3. Peripheral Vascular disease Patient last seen at [facility] on 10-30-20 and continued on percocet 10/325 qid Since patient's last encounter patient reports persistent chronic pain requiring ongoing treatment. Describes the pain as Sharp and Stabbing Patient rates their pain score 7/10 on average and is tolerable. Patient feels that the medication regimen does help maintain the function, mobility, activity tolerance and pain levels at a tolerable level. Patient states that medications changes or injections are not necessary today Patient states that the pain symptoms are stable. Patient denies new or changing pain complaints. Patient notes that the pain is worse with general activity and improved with rest. Patient 's current pain medication regimen has been reviewed with the patient and they note that the medication regimen is effective and reports that they are taking the medication regimen as prescribed. Patient denies running out of medication early or having an excess supply of medications. Other concerns: no new concerns at this time Patient's current pain medications has been reviewed and includes: DRUG FREQ Percocet 10/325 qid Patient's most recent interventional procedures: PROCEDURE DATE % Relief & Duration LOUISE 08-21-20 Lumbar facet injection 04-03-20 ROS Constitutional: denies dizziness, sedation, or somnolence Psychological: denies altered mentation or euphoria GI: denies significant constipation or diarrhea Musc: denies acute change in numbness, weakness, or tingling of extemities MEDICATIONS Current Outpatient Medications Medication Sig Dispense Refill - alendronate (FOSAMAX) 70 MG tablet TAKE 1 TABLET BY MOUTH ONCE WEEKLY ON AN EMPTY STOMACH BEFORE BREAKFAST. REMAIN UPRIGHT FOR 30 MINUTES & TAKE WITH 8 OUNCES OF WATER 12 tablet 1 - ALPRAZolam (XANAX) 1 MG tablet TAKE 1/2 TABLET BY MOUTH FOUR TIMES A DAY NEEDED FOR SLEEP 60 tablet 0 - ARIPiprazole (ABILIFY) 15 MG tablet Take 1 tablet (15 mg total) by mouth once daily. 30 tablet 2 - cholecalciferol (VITAMIN D3) 125 mcg (5,000 unit) capsule TAKE ONE CAPSULE BY MOUTH DAILY 90 capsule 3 - diaper,brief,adult,disposable Misc 1 application by Miscellaneous route 2 (two) times a day. 96 each 5 - escitalopram oxalate (LEXAPRO) 20 MG tablet Take 1 tablet (20 mg total) by mouth once daily. 30 tablet 5 - Flovent Diskus 250 mcg/actuation Disk with Device INHALE ONE PUFF BY MOUTH TWICE A DAY 60 each 3 - food supplemt, lactose-reduced (ENSURE) Liquid Drink 2 bottles per day. Patient requests strawberry. 14622 mL PRN - hydroCHLOROthiazide (HYDRODIURIL) 25 MG tablet TAKE ONE TABLET BY MOUTH DAILY (Patient taking differently: Take 12.5 mg by mouth once daily. ) 90 tablet 1 - ipratropium-albuteroL (DUO-NEB) 0.5-2.5 mg/3 mL nebulizer Inhale 3 mL into the lungs 4 (four) times a day. 360 vial 3 - lisinopriL (PRINIVIL,ZESTRIL) 5 MG tablet TAKE ONE TABLET BY MOUTH DAILY 30 tablet 0 - naloxone 2 mg/actuation [place], Non-Aerosol 2 mg by Nasal route as needed. 1-2 daily PRN. Proceed to ER for evaluation immediately following use. 4 each 1 - omeprazole (PriLOSEC) 40 MG capsule Take 1 capsule (40 mg total) by mouth once daily. (Patient taking differently: Take 40 mg by mouth as needed. ) 90 capsule 0 - omeprazole (PriLOSEC) 40 MG capsule TAKE ONE CAPSULE BY MOUTH DAILY 30 capsule 7 - ondansetron (Zofran ODT) [address] 1-2 tablets (4-8 mg total) under the tongue every 8 (eight) hours as needed for nausea / vomiting. 12 tablet 0 - oxyCODONE-acetaminophen (PERCOCET) 10-325 mg tablet Take 1 tablet by mouth once every 4 (four) hours as needed for pain. - potassium chloride (KLOR-CON) 10 MEQ CR tablet TAKE TWO TABLETS BY MOUTH TWICE A DAY 120 tablet 0 - prazosin (MINIPRESS) 2 MG capsule Take 3 capsules (6 mg total) by mouth every evening. 90 capsule 2 - PROAIR HFA 90 mcg/actuation inhaler INHALE TWO PUFFS BY MOUTH FOUR TIMES A DAY 8.5 each 11 - tiZANidine (ZANAFLEX) 4 MG tablet TAKE ONE TABLET BY MOUTH TWICE A DAY 60 tablet 1 No current facility-administered medications for this visit. ALLERGIES Allergies Allergen Reactions - Penicillins Anaphylaxis - Gabapentin Other (See Comments) severe fatigue - Sulfa (Sulfonamide Antibiotics) Other (See Comments) Blisters inside and outside of mouth. - Wellbutrin [Bupropion Hcl] Other (See Comments) Body numbness and tingling PHYSICAL EXAM Vital Signs: BP 122/74 (BP Location: Right arm) Wt 55.3 kg (122 lb) BMI 22.31 kg/m Constitutional: Well nourished, well groomed, NAD. CARDIAC: Regular Rate LUNGS: Breathing nonlabored, no wheezing Neurologic: Alert & oriented x 3, normal gait, no focal deficits noted. Psychiatric: Affect normal, judgment normal, mood normal. Other Affected BA/OS: Chronic Opiate Therapy Risk Mitigation: Risk Assessment Evaluation Assessment Morphine Equivalents 60 Date of Last UDS SOAPP-R Score Behavior Risks Physical Risks H/o Illegal Substance Abuse H/o Alcohol abuse OPIATE RISK ASSESSMENT: LOW (Routine medication monitoring, Annual UDS) Assessment is based treating physicians overall evaluation of multiple factors including MME load, age, comorbidity, medication profile, and social risk factors. The risks/benefits of chronic opiate therapy was discussed with patient including failure of therapy, psychological addiction, physiological dependence, and risk withdrawal syndrome. Warning symptoms of potential opiate overuse/overdose were discussed including sedation, somnolence, and altered mentation were reviewed and I counseled patient these symptoms can occur even when patient have been on a stable dose and also can happen despite following physicians instructions. Alternative therapies were discussed including: non-opiate medications, interventional pain procedures, and Cognitive Behavioral Therapy. After discussing these alternatives with the patient, the patient has opted to decline these alternatives at this time. Patient has tried and failed more conservative measures and were either ineffective or intolerant. In my medical opinion non-opiate therapy is not appropriate to address the patient's medical condition at this time and will continue chronic opiate therapy after having addressed efficacy, adverse side effects, and safety of therapy with the patient. The patient indicates understanding of these issues and agrees with the plan. LIFESTYLE COUNSELING: Time was spent discussing the importance of a home exercise program to promote strength, activity endurance and pain tolerance. Patient was also counseled on avoidance of tobacco products for general health as well as improved chronic pain control. ASSESSMENT AND PLAN Problem List Items Addressed This Visit Cervical radiculopathy Lumbar spondylosis - Primary Requested Prescriptions Pending Prescriptions Disp Refills - oxyCODONE-acetaminophen (Percocet) 10-325 mg tablet 120 tablet 0 Sig: Take 1 tablet by mouth every 6 (six) hours as needed for pain. To Last 30days. No early refills Max Daily Amount: 4 tablets PLAN: PAtient was last seen at [facility], and we had deferred proceeding with LESI as she was planning vascular surgery that week. She states that she was seen and evaluated and was scheduled for vascular stenting. However the surgeon could not successful cannulate the aortic stricture and the proceudre was aborted. Dr. Swan noted that an aortobifemoral aortic graft would be necessary but doubted the patients ability to tolerate the procedure and recommended further pain management. I discussed further options with respect to her pain including SCS stimulation therapy. She does have a longstanding history of refractory lumbar radiculopathy. She has distal LE blood flow through collateral circulation, however, I discussed falguni tSCS therapy can improve LE blood flow as well. She is unsure if she wants to proceed with SCS therapy at this time. I Enmanuel refill her percocet 10/325 qid and schedule her for repeat LESI. The patient indicates understanding of these issues and agrees with the plan. I reviewed the patient's medical information and medical history. I have reviewed the past medical, family, and social history sections including the medications and allergies listed in the above medical record. Patient was counseled that in my practice I do not prescribe chronic opiate therapy in the presence of ongoing illegal substance use. Patient was also counseled that drug screen testing is medically necessary from time to time to help stratify risks associated with chronic opiate therapy by assessing compliance with prescribed medications as well as to identify the presence of illegal substances. Consent for drug screen testing is required for continuation of chronic opiate therapy. A drug screen test was not administered in clinic today. CODIN MDM BASED CODING: OVERALL MDM Level = MODERATE (Level 4) NUMBER AND COMPLEXITY OF PROBLEMS ADDRESSED: MOD (2 stable chronic problems OR 1 worsening chronic problem) DIAGNOSTIC COMPLEXITY: LOW TREATMENT RISK: MODERATE (Use of prescription opioid and non-opioid medications. Decision regarding interventional pain procedures discussed with patient) Electronically signed by: Isaías Cardenas MD, 11/27/2020 2:24 PM [facility] 2020-11-03 06:32:12 I reviewed history a nd physical done by myself performed on 10/21/2020. No changes to H and P. Risks and benefits were discussed with the patient. Will proceed with plan outlined by consent [facility]ELDA [facility] 2020-10-19 20:52:49 Patient Name: Ibis Tay Date of : 1955 Date of Evaluation: 10/19/2020 Provider: Priyanka Lin MD Chief Complaint Chief Complaint Patient presents with - Extremity Weakness Patient states she cannot get into doctor until tuesday. Leg weakness (states iliac arteries are occluded) History of Present Illness HPI 65-year-old female here to have her legs looked at. Patient states she was seen here on 10-15 with vomiting, diarrhea, pain all over and had a CT scan of her abdomen and pelvis which showed bilateral occluded iliac arteries. She was referred to vascular surgery and has an appointment in 2 days. She states today she was outside, doing activities. She had increased tingling in her legs bilaterally and thought her feet looked more discolored compared to baseline. Pain is significant but states she always has all over pain 10 out of 10 and takes Percocet 4 times daily for pain. She initially was unable to hold that down, she did hold down tonight's dose, she is no longer having nausea or vomiting but states it did not help the pain. She states I hope I am not jumping the gun but just thought I should get checked out tonight. History- Medical/Surgical/Family/Social Past Medical History: Diagnosis Date - Anxiety Takes Xanax - Arthritis - Breast mass 2013 rt axilla - Bronchitis - Bursitis Left hip - Cancer ([facility]) left lung cancer, scheduled for left upper lobectomy at [facility] with Dr. Moore - Cervical radiculopathy sees Dr. Cardenas, gets cervical pain injections every 3 months, last done in - COPD (chronic obstructive pulmonary disease) ([facility]) - DDD (degenerative disc disease) - Depression - Dermatological disorder 01/25 irratative dermatitis from insect b ite - Esophageal stricture dilated during upper endoscopy - Generalized anxiety disorder - GERD (gastroesophageal reflux disease) - H. pylori infection Hx of H pylori infection several months ago treated with medication, no current issues. - H/O pyloric stenosis - Hiatal hernia - HTN (hypertension) - Hypercholesteremia - Hyperlipidemia No current medications or issues. - OA (osteoarthritis) of knee - Palpitations with anxiety - Pneumonia 1994 resolved. - PONV (postoperative nausea and vomiting) - PTSD (post-traumatic stress disorder) son was murdered 8 years ago, followed by Dr. Milly Freire - Spinal stenosis cervical - Wears dentures full set - Wears glasses Past Surgical History: Procedure Laterality Date - ESOPHAGEAL DILATION 2012 approx. done with upper endoscopy - KNEE ARTHROPLASTY Right 2010 - LUMBAR FUSION 1995 - LUNG LOBECTOMY Left 10/11/2017 Upper - CO TOTAL KNEE ARTHROPLASTY Right 05/28/2014 Procedure: REPLACEMENT TOTAL JOINT KNEE RIGHT / BETO ; Surgeon: Isaak Moncada MD; Location: [facility] OR; Service: Orthopedics - SPINE SURGERY lumbar fusion - TENDON RELEASE Right arm - TOTAL HIP ARTHROPLASTY Left 09/26/14 hip hem-iarthoplasty - TOTAL KNEE ARTHROPLASTY Left 11/23 - TUBAL LIGATION Bilateral - UPPER GASTROINTESTINAL ENDOSCOPY 2012 approx. diagnosed with H. Pylori and esophagus dilated. - UPPER GASTROINTESTINAL ENDOSCOPY Family History Problem Relation Age of Onset - Other Other Hx: Yes Dx: Diabetes Fam Mem: Family h/o - Drug abuse Other - Other Other Hx: Yes Dx: Hypertension Fam Mem: Mother - Drug abuse Other - Hypertension Mother - Heart disease Mother - Diabetes Mother - No Known Problem Father - Other Sister - Cancer Sister - Other Other Hx: Yes Dx: Heart disease Fam Mem: Mother - Diabetes Maternal Grandmother Social History Socioeconomic History - Marital status: Spouse name: Not on file - Number of children: Not on file - Years of education: 14 - Highest education level: Not on file Occupational History - Not on file Social Needs - Financial resource strain: Not on file - Food insecurity Worry: Not on file Inability: Not on file - Transportation needs Medical: Not on file Non-medical: Not on file Tobacco Use - Smoking status: Current Every Day Smoker Packs/day: 0.50 Years: 44.00 Pack years: 22.00 Types: Cigarettes - Smokeless tobacco: Current User Substance and Sexual Activity - Alcohol use: No - Drug use: No - Sexual activity: Not on file Lifestyle - Physical activity Days per week: Not on file Minutes per session: Not on file - Stress: Not on file Relationships - Social connections Talks on phone: Not on file Gets together: Not on file Attends denominational service: Not on file Active member of club or organization: Not on file Attends meetings of clubs or organizations: Not on file Relationship status: Not on file - Intimate partner violence Fear of current or ex partner: Not on file Emotionally abused: Not on file Physically abused: Not on file Forced sexual activity: Not on file Other Topics Concern - Not on file Social History Narrative - Not on file Home Medications Prior to Admission medications Medication Sig Start Date End Date Taking? Authorizing Provider alendronate (FOSAMAX) 70 MG tablet TAKE 1 TABLET BY MOUTH ONCE WEEKLY ON AN EMPTY STOMACH BEFORE BREAKFAST. REMAIN UPRIGHT FOR 30 MINUTES & TAKE WITH 8 OUNCES OF WATER 09/07/20 Mike Ann Jr., MD ALPRAZolam (XANAX) 1 MG tablet TAKE 1/2 TABLET BY MOUTH FOUR TIMES A DAY NEEDED FOR SLEEP 09/30/20 Parth Lemos MD ARIPiprazole (ABILIFY) 15 MG tablet Take 1 tablet (15 mg total) by mouth once daily. 09/30/20 Parth Lemos MD cholecalciferol (VITAMIN D3) 125 mcg (5,000 unit) capsule TAKE ONE CAPSULE BY MOUTH DAILY 12/11/19 Mike Ann Jr., MD diaper,brief,adult,disposable Misc 1 application by Miscellaneous route 2 (two) times a day. 12/01/15 Mike Ann Jr., MD escitalopram oxalate (LEXAPRO) 20 MG tablet Take 1 tablet (20 mg total) by mouth once daily. 09/30/20 Parth Lemos MD Flovent Diskus 250 mcg/actuation Disk with Device INHALE ONE PUFF BY MOUTH TWICE A DAY 05/19/20 Mike Ann Jr., MD food supplemt, lactose-reduced (ENSURE) Liquid Drink 2 bottles per day. Patient requests strawberry. 11/19/16 Mike Ann Jr., MD hydroCHLOROthiazide (HYDRODIURIL) 25 MG tablet TAKE ONE TABLET BY MOUTH DAILY 09/07/20 Mike Ann Jr., MD HYDROcodone-acetaminophen (NORCO) 10-325 mg per tablet Take 1 tablet by mouth 3 (three) times a day as needed. Historical Provider, ipratropium-albuteroL (DUO-NEB) 0.5-2.5 mg/3 mL nebulizer Inhale 3 mL into the lungs 4 (four) times a day. 08/18/20 Mike Ann Jr., MD lisinopriL (PRINIVIL,ZESTRIL) 5 MG tablet TAKE ONE TABLET BY MOUTH DAILY 10/08/20 Mike Ann Jr., MD naloxone 2 mg/actuation [place], Non-Aerosol 2 mg by Nasal route as needed. 1-2 daily PRN. Proceed to ER for evaluation immediately following use. Patient not taking: Reported on 07/27/2019 05/16/18 Isaías Cardenas MD omeprazole (PriLOSEC) 40 MG capsule Take 1 capsule (40 mg total) by mouth once daily. 10/10/20 Mike Ann Jr., MD omeprazole (PriLOSEC) 40 MG capsule TAKE ONE CAPSULE BY MOUTH DAILY 10/09/20 Mike Ann Jr., MD ondansetron (Zofran ODT) [address] 1-2 tablets (4-8 mg total) under the tongue every 8 (eight) hours as needed for nausea / vomiting. 10/15/20 NATANAEL Kaiser potassium chloride (KLOR-CON) 10 MEQ CR tablet TAKE TWO TABLETS BY MOUTH TWICE A DAY 10/08/20 Mike Ann Jr., MD prazosin (MINIPRESS) 2 MG capsule Take 3 capsules (6 mg total) by mouth every evening. 09/30/20 Parth Lemos MD PROAIR HFA 90 mcg/actuation inhaler INHALE TWO PUFFS BY MOUTH FOUR TIMES A DAY 03/15/19 Mike Ann Jr., MD tiZANidine (ZANAFLEX) 4 MG tablet TAKE ONE TABLET BY MOUTH TWICE A DAY 07/16/19 Isaías Cardenas MD Allergies is allergic to penicillins; gabapentin; sulfa (sulfonamide antibiotics); and wellbutrin [bupropion hcl]. Review of Systems Review of Systems Neurological: Positive for numbness. Negative for weakness. All other systems reviewed and are negative. Physical Exam ED Triage Vitals BP: 151/68 [10/19/202032] Heart Rate: 81 [10/19/202032] Pulse Rate : 81 [10/19/202032] Temp: 36.9 C (98.4 F) [10/19/202032] Temp src: Temporal [10/19/202032] Resp: 18 [10/19/202032] SpO2: 98 % [10/19/202029] BP 151/68 (BP Location: Right arm, Patient Position: Sitting) Pulse 81 Temp 36.9 C (98.4 F) (Temporal) Resp 18 Ht 5' 2 (1.575 m) Wt 54.4 kg (120 lb) SpO2 98% BMI 21.95 kg/m Physical Exam Vitals signs and nursing note reviewed. Constitutional: General: She is not in acute distress. HENT: Head: Atraumatic. Eyes: Conjunctiva/sclera: Conjunctivae normal. Pupils: Pupils are equal, round, and reactive to light. Neck: Musculoskeletal: Normal range of motion and neck supple. Vascular: No JVD. Cardiovascular: Rate and Rhythm: Normal rate and regular rhythm. Pulmonary: Effort: No respiratory distress. Breath sounds: Normal breath sounds. Abdominal: General: Bowel sounds are normal. Palpations: Abdomen is soft. Tenderness: There is no abdominal tenderness. Musculoskeletal: Normal range of motion. General: No tenderness. Right lower leg: No edema. Left lower leg: No edema. Comments: Extremities are examined, there is slight redness to her feet bilaterally but they are warm with good capillary refill. Sensation and motor strength are intact. She has a good posterior tibial pulse on the right and dorsalis pedis pulse on the left. Doppler signals were heard, left greater than right. Skin: Capillary Refill: Capillary refill takes less than 2 seconds. Findings: No erythema or rash. Neurological: General: No focal deficit present. Mental Status: She is alert and oriented to person, place, and time. Cranial Nerves: No cranial nerve deficit. Sensory: No sensory deficit. Psychiatric: Mood and Affect: Mood is anxious. Lab Results Emergency department lab results reviewed. Results for orders placed or performed during the hospital encounter of 10/19/20 CBC auto differential Result Value Ref Range WBC 6.6 4.0 - 12.0 k/ul RBC 4.48 3.50 - 5.30 m/ul HEMOGLOBIN 12.6 12.0 - 16.0 gm/dl Hematocrit 39.1 36.0 - 48.0 % MCV 87 80 - 100 fl MCH 28.1 26.0 - 34.0 pg MCHC 32.2 30.0 - 37.0 gm/dl RDW 13.2 11.5 - 15.0 % Platelet Count 221 140 - 440 k/ul MPV 10.0 8.5 - 12.5 fl Neutrophils % 60 % Immature Granulocytes % 0 % Lymphs % 33 % Monocytes % 5 % Eosinophils Percent 3 % Basophils Percent 0 % Neutrophils Abs 4.0 1.5 - 8.0 k/ul Immature Granulocytes Abs 0.0 0.0 - 0.1 k/ul Lymphs Abs 2.2 1.0 - 4.5 k/ul Monocytes Abs 0.3 0.1 - 1.1 k/ul Eosinophils Absolute 0.2 0.0 - 0.4 k/ul Basophils Absolute 0.0 0.0 - 0.1 k/ul Comprehensive metabolic panel Result Value Ref Range Glucose 123 (H) 70 - 100 mg/dl BUN 18 6 - 24 mg/dl Creatinine 0.90 0.50 - 1.10 mg/dl Sodium 141 135 - 145 mmol/L Potassium 3.0 (L) 3.7 - 5.1 mmol/L Chloride 103 96 - 110 mmol/L CO2 33.0 (H) 22.0 - 32.0 mmol/L Anion Gap 8 <=20 mmol/L Calcium 8.6 8.5 - 10.5 mg/dl Total Protein 6.2 6.0 - 8.4 gm/dl Albumin 3.4 (L) 3.5 - 5.0 gm/dl Globulin 2.8 2.0 - 4.4 gm/dl AST 7 (L) 10 - 40 u/l Alkaline Phosphatase 90 33 - 138 u/l Total Bilirubin 0.3 0.0 - 1.5 mg/dl ALT 15 12 - 78 u/l GFR MDRD Af Amer 77 (L) >=90 mL/min/1.73 m2 GFR MDRD Non Af Amer 66 (L) >=90 mL/min/1.73 m2 PROTIME-INR Result Value Ref Range Protime 11.2 9.6 - 11.9 sec INR 1.0 0.9 - 1.1 Activated partial thromboplastin time Result Value Ref Range aPTT 27.8 22.8 - 33.9 sec *Note: Due to a large number of results and/or encounters for the requested time period, some results have not been displayed. A complete set of results can be found in Results Review. Radiology Results ED Course Procedures EKG 2125 normal sinus rhythm rate 71, T wave flattening, no ST elevation or depression Pulse oximetry 98% on room air, normal No evidence of complete acute arterial occlusion, patient has peripheral vascular disease, does appear to have collateral flow, has dopplered signals, good capillary refill, no significant pain or neurologic deficit. Even pain medication, reevaluated at 2210, now complaining of itching in her feet. Diagnosis Clinical Impression Diagnosis Comment Added By Time Added Peripheral vascular disease (HCC) Priyanka Lin MD 10/19/2020 10:13 PM Disposition Discharge [1] - 10/19/2020 10:14 PM Prescriptions Patient's Medications New Prescriptions No medications on file Previous Medications ALENDRONATE (FOSAMAX) 70 MG TABLET TAKE 1 TABLET BY MOUTH ONCE WEEKLY ON AN EMPTY STOMACH BEFORE BREAKFAST. REMAIN UPRIGHT FOR 30 MINUTES & TAKE WITH 8 OUNCES OF WATER ALPRAZOLAM (XANAX) 1 MG TABLET TAKE 1/2 TABLET BY MOUTH FOUR TIMES A DAY NEEDED FOR SLEEP ARIPIPRAZOLE (ABILIFY) 15 MG TABLET Take 1 tablet (15 mg total) by mouth once daily. CHOLECALCIFEROL (VITAMIN D3) 125 MCG (5,000 UNIT) CAPSULE TAKE ONE CAPSULE BY MOUTH DAILY DIAPER,BRIEF,ADULT,DISPOSABLE MISC 1 application by Miscellaneous route 2 (two) times a day. ESCITALOPRAM OXALATE (LEXAPRO) 20 MG TABLET Take 1 tablet (20 mg total) by mouth once daily. FLOVENT DISKUS 250 MCG/ACTUATION DISK WITH DEVICE INHALE ONE PUFF BY MOUTH TWICE A DAY FOOD SUPPLEMT, LACTOSE-REDUCED (ENSURE) LIQUID Drink 2 bottles per day. Patient requests strawberry. HYDROCHLOROTHIAZIDE (HYDRODIURIL) 25 MG TABLET TAKE ONE TABLET BY MOUTH DAILY HYDROCODONE-ACETAMINOPHEN (NORCO) 10-325 MG PER TABLET Take 1 tablet by mouth 3 (three) times a day as needed. IPRATROPIUM-ALBUTEROL (DUO-NEB) 0.5-2.5 MG/3 ML NEBULIZER Inhale 3 mL into the lungs 4 (four) times a day. LISINOPRIL (PRINIVIL,ZESTRIL) 5 MG TABLET TAKE ONE TABLET BY MOUTH DAILY NALOXONE 2 MG/ACTUATION SPRAY, NON-AEROSOL 2 mg by Nasal route as needed. 1-2 daily PRN. Proceed to ER for evaluation immediately following use. OMEPRAZOLE (PRILOSEC) 40 MG CAPSULE Take 1 capsule (40 mg total) by mouth once daily. OMEPRAZOLE (PRILOSEC) 40 MG CAPSULE TAKE ONE CAPSULE BY MOUTH DAILY ONDANSETRON (ZOFRAN ODT) [address] TABLE[address] 1-2 tablets (4-8 mg total) under the tongue every 8 (eight) hours as needed for nausea / vomiting. POTASSIUM CHLORIDE (KLOR-CON) 10 MEQ CR TABLET TAKE TWO TABLETS BY MOUTH TWICE A DAY PRAZOSIN (MINIPRESS) 2 MG CAPSULE Take 3 capsules (6 mg total) by mouth every evening. PROAIR HFA 90 MCG/ACTUATION INHALER INHALE TWO PUFFS BY MOUTH FOUR TIMES A DAY TIZANIDINE (ZANAFLEX) 4 MG TABLET TAKE ONE TABLET BY MOUTH TWICE A DAY Modified Medications No medications on file Discontinued Medications No medications on file Follow Up Mike Ann Jr., MD [address] [place] [address] [facility] [id number] Imelda Swan MD [address] [place] [address] [facility] [id number] Follow-up in 2 days as scheduled MDM Priyanka Lin MD 10/19/20 5635 [address] [facility] 2020-10-15 16:42:45 Attestation signed by Moe Vargas DO at 10/19/2020 2:49 PM ATTENDING PHYSICIAN ATTESTATION NOTE: I was available for the midlevel for any questions or concerns as needed. I did not see the patient however. Refer to the mid level provider's note for details. [facility] ENCOUNTER CHIEF COMPLAINT/HPI Chief Complaint Patient presents with - Emesis Patientr eports vomiting since Tuesday, unable to hold liquids down. Reports abdominal pain and diarrhea, WHITMAN, generalized body aches. Ibis Tay is a 65 y.o. female who presents with complaint of generalized abdominal pain, vomiting, diarrhea. Patient states that she developed vomiting, at 1:30 AM, on Tuesday, October 13, 2020. She states she is not able to keep anything down. She then developed diarrhea. No hematemesis, hematochezia, melena. She states that she has severe headache, severe body aches. She typically is on oxycodone 10 mg 4 times a day for degenerative disc disease, nerve wrapped around her neck. She has not been able to take her pain medicines. She reports cough, has had 2 Covid vaccines. Diffuse abdominal pain. Decreased urination secondary to vomiting and diarrhea. No dysuria. She does smoke, she is on disability.. History is provided by patient. Relieving factors are nothing. Exacerbating factors are trying to eat or drink. Severity of symptoms are moderate. REVIEW OF SYSTEMS Review of Systems - General ROS: negative for - chills, fever or night sweats. Positive for generalized body aches. Ophthalmic ROS: negative for - eye redness, eye pain or loss of vision ENT ROS: negative for - rhinorrhea or sore throat Respiratory ROS: negative for - hemoptysis, shortness of breath or wheezing. Positive for cough Cardiovascular ROS: negative for - chest pain, orthopnea, edema, dyspnea on exertion, or syncope Gastrointestinal ROS: negative for -melena, hematochezia, hematemesis, Constipation.positive for generalized abdominal pain, diarrhea and nausea/vomiting Genito-Urinary ROS: negative for - hematuria, dysuria or urinary frequency/urgency Musculoskeletal ROS: negative for - joint redness or swelling. Positive for generalized body aches Neurological ROS: negative for - confusion, dizziness or headache Dermatological ROS: negative for rash or skin changes. Psychological ROS: Negative for suicidal homicidal ideation. *all systems reviewed and are otherwise negative* PAST MEDICAL HISTORY Past Medical History: Diagnosis Date - Anxiety Takes Xanax - Arthritis - Breast mass 2013 rt axilla - Bronchitis - Bursitis Left hip - Cancer (HCC) left lung cancer, scheduled for left upper lobectomy at [facility] with Dr. Moore - Cervical radiculopathy sees Dr. Cardenas, gets cervical pain injections every 3 months, last done in - COPD (chronic obstructive pulmonary disease) ([facility]) - DDD (degenerative disc disease) - Depression - Dermatological disorder 01/25 irratative dermatitis from insect b ite - Esophageal stricture dilated during upper endoscopy - Generalized anxiety disorder - GERD (gastroesophageal reflux disease) - H. pylori infection Hx of H pylori infection several months ago treated with medication, no current issues. - H/O pyloric stenosis - Hiatal hernia - HTN (hypertension) - Hypercholesteremia - Hyperlipidemia No current medications or issues. - OA (osteoarthritis) of knee - Palpitations with anxiety - Pneumonia 1994 resolved. - PONV (postoperative nausea and vomiting) - PTSD (post-traumatic stress disorder) son was murdered 8 years ago, followed by Dr. Milly Freire - Spinal stenosis cervical - Wears dentures full set - Wears glasses SURGICAL HISTORY Past Surgical History: Procedure Laterality Date - ESOPHAGEAL DILATION 2012 approx. done with upper endoscopy - KNEE ARTHROPLASTY Right 2010 - LUMBAR FUSION 1995 - LUNG LOBECTOMY Left 10/11/2017 Upper - CO TOTAL KNEE ARTHROPLASTY Right 05/28/2014 Procedure: REPLACEMENT TOTAL JOINT KNEE RIGHT / BETO ; Surgeon: Isaak Moncada MD; Location: [facility] OR; Service: Orthopedics - SPINE SURGERY lumbar fusion - TENDON RELEASE Right arm - TOTAL HIP ARTHROPLASTY Left 09/26/14 hip hem-iarthoplasty - TOTAL KNEE ARTHROPLASTY Left 11/23 - TUBAL LIGATION Bilateral - UPPER GASTROINTESTINAL ENDOSCOPY 2012 approx. diagnosed with H. Pylori and esophagus dilated. - UPPER GASTROINTESTINAL ENDOSCOPY HOME MEDICATIONS Prior to Admission medications Medication Sig Start Date End Date Taking? Authorizing Provider alendronate (FOSAMAX) 70 MG tablet TAKE 1 TABLET BY MOUTH ONCE WEEKLY ON AN EMPTY STOMACH BEFORE BREAKFAST. REMAIN UPRIGHT FOR 30 MINUTES & TAKE WITH 8 OUNCES OF WATER 09/07/20 Mike Ann Jr., MD ALPRAZolam (XANAX) 1 MG tablet TAKE 1/2 TABLET BY MOUTH FOUR TIMES A DAY NEEDED FOR SLEEP 09/30/20 Parth Lemos MD ARIPiprazole (ABILIFY) 15 MG tablet Take 1 tablet (15 mg total) by mouth once daily. 09/30/20 Parth Lemos MD cholecalciferol (VITAMIN D3) 125 mcg (5,000 unit) capsule TAKE ONE CAPSULE BY MOUTH DAILY 12/11/19 Mike Ann Jr., MD diaper,brief,adult,disposable Misc 1 application by Miscellaneous route 2 (two) times a day. 12/01/15 Mike Ann Jr., MD escitalopram oxalate (LEXAPRO) 20 MG tablet Take 1 tablet (20 mg total) by mouth once daily. 09/30/20 Parth Lemos MD Flovent Diskus 250 mcg/actuation Disk with Device INHALE ONE PUFF BY MOUTH TWICE A DAY 05/19/20 Mike Ann Jr., MD food supplemt, lactose-reduced (ENSURE) Liquid Drink 2 bottles per day. Patient requests strawberry. 11/19/16 Mike Ann Jr., MD hydroCHLOROthiazide (HYDRODIURIL) 25 MG tablet TAKE ONE TABLET BY MOUTH DAILY 09/07/20 Mike Ann Jr., MD HYDROcodone-acetaminophen (NORCO) 10-325 mg per tablet Take 1 tablet by mouth 3 (three) times a day as needed. Historical Provider, ipratropium-albuteroL (DUO-NEB) 0.5-2.5 mg/3 mL nebulizer Inhale 3 mL into the lungs 4 (four) times a day. 08/18/20 Mike Ann Jr., MD lisinopriL (PRINIVIL,ZESTRIL) 5 MG tablet TAKE ONE TABLET BY MOUTH DAILY 10/08/20 Mike Ann Jr., MD naloxone 2 mg/actuation [place], Non-Aerosol 2 mg by Nasal route as needed. 1-2 daily PRN. Proceed to ER for evaluation immediately following use. Patient not taking: Reported on 07/27/2019 05/16/18 Isaías Cardenas MD omeprazole (PriLOSEC) 40 MG capsule Take 1 capsule (40 mg total) by mouth once daily. 10/10/20 Mike Ann Jr., MD omeprazole (PriLOSEC) 40 MG capsule TAKE ONE CAPSULE BY MOUTH DAILY 10/09/20 Mike Ann Jr., MD potassium chloride (KLOR-CON) 10 MEQ CR tablet TAKE TWO TABLETS BY MOUTH TWICE A DAY 10/08/20 Mike Ann Jr., MD prazosin (MINIPRESS) 2 MG capsule Take 3 capsules (6 mg total) by mouth every evening. 09/30/20 Parth Lemos MD PROAIR HFA 90 mcg/actuation inhaler INHALE TWO PUFFS BY MOUTH FOUR TIMES A DAY 03/15/19 Mike Ann Jr., MD tiZANidine (ZANAFLEX) 4 MG tablet TAKE ONE TABLET BY MOUTH TWICE A DAY 07/16/19 Isaías Cardenas MD ALLERGIES Allergies Allergen Reactions - Penicillins Anaphylaxis - Gabapentin Other (See Comments) severe fatigue - Sulfa (Sulfonamide Antibiotics) Other (See Comments) Blisters inside and outside of mouth. - Wellbutrin [Bupropion Hcl] Other (See Comments) Body numbness and tingling FAMILY HISTORY Family History Problem Relation Age of Onset - Other Other Hx: Yes Dx: Diabetes Fam Mem: Family h/o - Drug abuse Other - Other Other Hx: Yes Dx: Hypertension Fam Mem: Mother - Drug abuse Other - Hypertension Mother - Heart disease Mother - Diabetes Mother - No Known Problem Father - Other Sister - Cancer Sister - Other Other Hx: Yes Dx: Heart disease Fam Mem: Mother - Diabetes Maternal Grandmother SOCIAL HISTORY Social History Socioeconomic History - Marital status: Spouse name: None - Number of children: None - Years of education: 14 - Highest education level: None Occupational History - None Social Needs - Financial resource strain: None - Food insecurity Worry: None Inability: None - Transportation needs Medical: None Non-medical: None Tobacco Use - Smoking status: Current Every Day Smoker Packs/day: 0.50 Years: 44.00 Pack years: 22.00 Types: Cigarettes - Smokeless tobacco: Current User Substance and Sexual Activity - Alcohol use: No - Drug use: No - Sexual activity: None Lifestyle - Physical activity Days per week: None Minutes per session: None - Stress: None Relationships - Social connections Talks on phone: None Gets together: None Attends denominational service: None Active member of club or organization: None Attends meetings of clubs or organizations: None Relationship status: None - Intimate partner violence Fear of current or ex partner: None Emotionally abused: None Physically abused: None Forced sexual activity: None Other Topics Concern - None Social History Narrative - None PHYSICAL EXAM VITAL SIGNS: BP 160/68 (BP Location: Right arm, Patient Position: High Fowlers) Pulse 72 Temp 36.3 C (97.3 F) (Oral) Resp 16 Ht 5' 2 (1.575 m) Wt 54.7 kg (120 lb 11.2 oz) SpO2 99% BMI 22.08 kg/m Constitutional: Well developed, well nourished, no acute distress, non-toxic appearance. Head: Atraumatic, normocephalic. Eyes: No eye redness, no discharge. No periorbital edema HENT: Mucous membranes pink and moist. No Stridor. NECK: Trachea midline. No JVD. Normal ROM. No meningeal signs. Respiratory: No respiratory distress, lungs clear bilaterally to auscultation, breathing nonlabored. Scattered rhonchi, deep breath causes cough Cardiovascular: Regular rate and rhythm, good peripheral perfusion. Abdomen: Abdomen soft, non distended, hyperactive bowel sounds, upper abdomen, decreased bowel sounds, lower abdomen, diffuse abdominal tenderness, no localized tenderness. No rebound, guarding, rigidity. Vineet's and Garcia Stafford's negative. Soft and non tender over McBurney's point. Musculoskeletal: Extremities nontender, normal range of motion, no visible trauma. No peripheral edema. No calf swelling or tenderness. No palpable cords. Back -Normal range of motion, Non Tender. No CVA tenderness. Integument: Skin pink, warm, and dry. No rash. Capillary refill less than 2 seconds. Neurologic: Alert, appropriate, oriented to person, place and time. Lymphatic: No cervical adenopathy Psych: Alert and oriented x3. RADIOLOGY/PROCEDURES ED Imaging Results & Wet Read CT Abdomen Pelvis with Contrast (Final result) Result time 10/15/20 17:34:19 Final result by Steve Montejo MD (10/15/20 17:34:19) Impression: : 1. No acute pathology evident in the abdomen or pelvis. 2. 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 3. Mild colonic diverticulosis. 4. Right renal focal cortical scarring. Narrative: REASON FOR EXAM: Abdominal pain and vomiting for 4 days. Comparison: 03/04/2017. DISCUSSION: Technique: CT images of the abdomen and pelvis with IV contrast. Sagittal and coronal reformats. Findings: Right lobe liver measures 12 cm in craniocaudal length. No focal liver lesion. Gallbladder and bile ducts are normal caliber. Spleen, pancreas, and adrenal glands are unremarkable. Symmetric renal enhancement. No hydronephrosis or hydroureter. 1.3 cm simple cyst in the interpolar region right kidney. Focal renal cortical scarring in the interpolar region right kidney. Small bowel and colon are normal caliber. No appreciable bowel wall thickening. Appendix is normal. No free fluid in the abdomen or pelvis. No free air. Mild diverticulosis of the sigmoid colon. Urinary bladder shows no focal wall thickening. Uterus is unremarkable. No adnexal mass. Moderate aortic atherosclerosis without aneurysm. Heavy calcification of the common iliac arteries. 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 Lung bases are clear. No acute osseous abnormality or destructive bone lesion. Diffuse osteopenia. Slight dextrocurvature of the lumbar spine. Multilevel degenerative disc disease and degenerative spondylosis. Left hip arthroplasty device. Fat-containing mass adjacent to the right erector spinae musculature. LABS ED Lab Results Procedure Component Value Ref Range Date/Time Lactic acid, venous [[id number]] Collected: 10/15/201639 Order Status: Completed Specimen: Blood Updated: 10/15/205 Lactic Acid 1.4 0.4 - 2.0 mmol/L Blood culture x2 - now, then in 15 minutes [[id number]] Collected: 10/15/201639 Order Status: Sent Specimen: Blood Updated: 10/15/207 Blood culture x2 - now, then in 15 minutes [[id number]] Collected: 10/15/201639 Order Status: Sent Specimen: Blood Updated: 10/15/208 Protime-INR - STAT [[id number]] Collected: 10/15/201639 Order Status: Completed Specimen: Blood Updated: 10/15/20 1732 Protime 11.6 9.6 - 11.9 sec INR 1.1 0.9 - 1.1 Activated partial thromboplastin time [[id number]] Collected: 10/15/201639 Order Status: Completed Specimen: Blood Updated: 10/15/20 1732 aPTT 27.4 22.8 - 33.9 sec Comprehensive metabolic panel [[id number]] (Abnormal) Collected: 10/15/20 1608 Order Status: Completed Specimen: Blood Updated: 10/15/20 1653 Glucose 105 70 - 100 mg/dl BUN 15 6 - 24 mg/dl Creatinine 0.89 0.50 - 1.10 mg/dl Sodium 137 135 - 145 mmol/L Potassium 2.9 3.7 - 5.1 mmol/L Chloride 103 96 - 110 mmol/L CO2 32.0 22.0 - 32.0 mmol/L Anion Gap 5 <=20 mmol/L Calcium 9.4 8.5 - 10.5 mg/dl Total Protein 7.5 6.0 - 8.4 gm/dl Albumin 4.0 3.5 - 5.0 gm/dl Globulin 3.5 2.0 - 4.4 gm/dl AST 12 10 - 40 u/l Alkaline Phosphatase 100 33 - 138 u/l Total Bilirubin 0.6 0.0 - 1.5 mg/dl ALT 18 12 - 78 u/l GFR MDRD Af Amer 77 >=90 mL/min/1.73 m2 CBC auto differential [[id number]] (Abnormal) Collected: 10/15/20 160 Order Status: Completed Specimen: Blood Updated: 10/15/20 1641 WBC 7.4 4.0 - 12.0 k/ul RBC 5.55 3.50 - 5.30 m/ul HEMOGLOBIN 15.7 12.0 - 16.0 gm/dl Hematocrit 47.1 36.0 - 48.0 % MCV 85 80 - 100 fl MCH 28.3 26.0 - 34.0 pg MCHC 33.3 30.0 - 37.0 gm/dl RDW 12.6 11.5 - 15.0 % Platelet Count 306 140 - 440 k/ul MPV 9.3 8.5 - 12.5 fl Neutrophils % 69 % Immature Granulocytes % 0 % Lymphs % 24 % Monocytes % 6 % Eosinophils Percent 0 % Basophils Percent 0 % Neutrophils Abs 5.1 1.5 - 8.0 k/ul Immature Granulocytes Abs 0.0 0.0 - 0.1 k/ul Lymphs Abs 1.8 1.0 - 4.5 k/ul Monocytes Abs 0.4 0.1 - 1.1 k/ul Eosinophils Absolute 0.0 0.0 - 0.4 k/ul Basophils Absolute 0.0 0.0 - 0.1 k/ul LIPASE [[id number]] Collected: 10/15/20 160 Order Status: Completed Specimen: Blood Updated: 10/15/20 1708 Lipase 110 73 - 393 u/l Vitals: 10/15/20 1815 10/15/20 1830 10/15/20 1845 10/15/20 1900 BP: (!) 176/139 174/79 151/74 160/68 BP Location: Right arm Patient Position: High Fowlers Pulse: 81 81 70 72 Resp: 16 Temp: 36.3 C (97.3 F) TempSrc: Oral SpO2: 98% 98% 99% 99% Weight: Height: ED COURSE & MEDICAL DECISION MAKING Pertinent Labs & Imaging studies reviewed. (See chart for details) Old records reviewed. Negative 4 [facility] respiratory panel , September 11, 2020 CT returns, complete occlusion, bilateral iliac arteries. Feet warm bilaterally. Not able to palpate dorsalis pedis bilaterally, posterior tibials 1-2+ bilaterally. Doppler pulses present, bilateral dorsalis pedis and posterior tibial, however right weaker than others. Feet pink, capillary refill less than 2 seconds, feet warm Patient has been on chronic continuous opioid use. She states that she has had some right knee pain, attributes this secondary to knee replacement. She denies any symptoms of vascular compromise, however on oxycodone 10 mg 4 times a day. Case discussed with Dr. Swan, vascular surgery. He recommends follow-up in the clinic, next week, Wednesday, October 21, 2020. He does not recommend any medications to be started for the bilateral iliac artery occlusion. Patient's feet are warm, Doppler pulses present bilaterally posterior tibial and dorsalis pedis Patient is received 1 L of saline IV, Zofran 4 mg IV. She has had Dilaudid 1 mg IV x2. Pain is improving. She has not run out of her oxycodone at home. I suspect that she started out with vomiting, then developed narcotic withdrawal symptoms, with vomiting, diarrhea, abdominal pain. Vomiting has resolved. She is tolerating oral liquids. She does have hypokalemia, given potassium chloride 40 mEq orally. She is to increase clear liquids. Rx for Zofran. Return precautions have been discussed, occluding worsening condition, pallor of extremities, severe pain in extremities, worsening condition. Patient verbalizes understanding and is in agreement this plan COVID-19 Crisis This encounter occurred during the pandemic [place] Virus crisis. All efforts were made to address emergencies and minimize the patient's potential exposure to infection. Appropriate PPE worn during all interactions with patient to include: []CAPR [x]N95 []Face Mask []Gloves []Gown []Eye Protection Patient is stable for discharge at this time. I explained that the ED diagnosis is a preliminary one based on current presentation. Strict return to ER instructions were described to the patient including refractory pain, fevers, inability to tolerate oral intake, new or alarming symptoms. The patient states they are comfortable with this plan. Questions were answered and patient verbalized understanding of discharge instructions and plan. Patient instructed to follow up. Incidental findings of ER workup discussed. Patient will follow-up with PMD for additional evaluation Patient was screened and medically evaluated, and no emergent medical condition was found. Patient is stable for discharge to home, with follow-up.. MEDICATIONS ADMINISTERED IN THE EMERGENCY DEPARTMENT Administered Meds Date/Time Order Dose Route Action Comments 10/15/2020 1636 sodium chloride 0.9% (NORMAL SALINE) bolus 1,000 mL 1,000 mL IntraVENous New Bag 10/15/2020 1643 HYDROmorphone (DILAUDID) syringe 1 mg 1 mg IntraVENous Given 10/15/2020 1643 ondansetron (ZOFRAN) 4 mg/2 mL injection 4 mg 4 mg IntraVENous Given 10/15/2020 1755 potassium chloride SA (K-DUR,KLOR-CON) CR tablet 40 mEq Oral Given 10/15/2020 1711 iopamidoL (ISOVUE-370) 76 % injection 100 mL 100 mL IntraVENous Given 10/15/2020 1755 HYDROmorphone (DILAUDID) syringe 1 mg 1 mg IntraVENous Given DISMISSAL PRESCRIPTIONS Current Discharge Medication List START taking these medications Details ondansetron (Zofran ODT) [address] 1-2 tablets (4-8 mg total) under the tongue every 8 (eight) hours as needed for nausea / vomiting. Qty: 12 tablet, Refills: 0 PATIENT REFERRED TO Imelda Swan MD [address] [facility] [address] [facility] [address] Tuesday in clinic, call for appointment time. Mike Ann Jr., MD [address] [facility] [address] [facility] [address] In 2 to 3 days if vomiting and diarrhea are not improving, sooner if worse. Zofran as needed for nausea, vomiting. Increase clear liquids, Gatorade, popsicles, Jell-O. Return if worse DISPOSITION Discharge [1] 10/15/2020 6:22 PM DISMISSAL INSTRUCTIONS Contact information for follow-up Imelda Swan MD Specialty: Vascular Surgery [address] [place] [facility] [id number] Next Steps: Follow up Instructions: Tuesday in clinic, call for appointment time. Mike Ann Jr, MD Specialty: Family Medicine Relationship: PCP - General [facility] [address] [place] [address] Next Steps: Follow up Instructions: In 2 to 3 days if vomiting and diarrhea are not improving, sooner if worse. Zofran as needed for nausea, vomiting. Increase clear liquids, Gatorade, popsicles, Jell-O. Return if worse DIAGNOSIS: 1. Abdominal pain, vomiting, and diarrhea 2. Hypokalemia 3. Chronic, continuous use of opioids 4. Iliac artery occlusion, bilateral (HCC) *This note was compiled in part using Pegg'd voice recognition technology. The note may contain typographical, grammatical, and voice recognition errors* NATANAEL Kaiser 10/15/202001 Moe Vargas DO 10/19/[address] [facility] 2020-09-16 15:30:00 Subjective: Patient ID: Ibis Tay is a 65 y.o. female. Chief Complaint Patient presents with - Follow-up ER visit on Tuesday said she has upper resp tract infection Tested negative covid and influenza. Horrible headache, had chills. Covid shot was on Sep 11 HPI Ibis Tay is a 65 y.o. female who presents today for an ER follow-up. She was seen in the ER on 09/11/2020 with productive cough, yellow sputum, headaches, generalized fatigue, body aches, sore throat and itchy eyes. Patient reported that her symptoms started after she received her COVID vaccination on September 06. She denies any significant difficulty breathing above her baseline shortness of breath with COPD. She also had no alleviating factors, nothing tried. No specific activating factors. Patient requested a shot of Dilaudid for her headache at that visit, which she then received with slight benefit. Her chest x-ray obtained at the ER visit revealed COPD, and prior left thoracotomy scarring and fibrosis. No current active chest disease or new abnormality since 02/03/2020. Patient was discharged with a prescription of Zithromax 250 mg 5-day course and prendisone 40 mg 1 tablet once daily for 5 days. She tolerated the treatment well; however, without complete relief. Today, she states that her symptoms are still persistent consisting of headaches, throat pain, and yellowish productive cough. She anticipates that her symptoms are consistent with an upper respiratory infection. Patient would like to repeat her treatment. She is a smoker and smokes 1.5 packs of cigarette per day. She is due for a mammogram. Review of Systems General : No weight gain or loss, no loss of appetite no fever, no chills, no fatigue, no night sweats Skin: No rashes, no skin discolorations Head: No headaches,no dizziness, no masses, no seizures Eyes: No visual changes, no eye pain Ears: No tinnitus, no vertigo, no hearing loss Nose: No nosebleeds, no discharge, no sinus disease. Positive for yellowish sputum production. Mouth and throat: Denies dental disease, no hoarseness, positive for throat pain Respiratory: No cough, no shortness or breath, no sputum production Cardiovascular: No chest pain, no orthopnea, no paroxysmal nocturnal dyspnea, or dyspnea on exertion, no claudication, no edema, no valvular disease Gastrointestinal: No dysphagia, no abdominal pain, no nausea no vomiting, no hematemesis, no diarrhea, no constipation, no melena, no hematochezia Genitourinary: No dysuria no frequency no hesitancy, no hematuria, no discharge Musculoskeletal: No joint pain or swelling, no arthritis, no myalgias Skin and lymphatics: No easy bruising no lymphadenopathy Neuropsychiatric: Positive for headaches. No weakness, no seizures, no memory changes, no depression Objective: BP 132/80 (BP Location: Left arm, Patient Position: Sitting) Pulse 71 Temp 35.7 C (96.2 F) (Temporal Artery (forehead)) Resp 20 Ht 157.5 cm (5' 2.01) Wt 57.6 kg (127 lb) SpO2 97% BMI 23.22 kg/m Physical Exam Nursing note and vitals reviewed. Constitutional: . patient appears well-developed and well-nourished. No distress. Head: Normocephalic and atraumatic. Nose: Turbinates are pale, but not particularly red. No purulent discharge noted. Right Ear: External ear normal. no erythema bright tympanic membrane bony landmarks intact Left Ear: External ear normal. No erythema bright tympanic membrane bony landmarks intact Mouth/Throat: No oropharyngeal exudate. No thrush noted. Neck: No JVD present. No tracheal deviation present. No thyromegaly present. Cardiovascular: Normal rate, regular rhythm, normal heart sounds and intact distal pulses. Exam reveals no gallop and no friction rub. No murmur heard. Pulmonary/Chest: Effort normal. No respiratory distress. patient has no wheezes. patient has no rales. Patient exhibits no tenderness. Abdominal: Soft. Patient exhibits no distension and no mass. There is no tenderness to palpation. There is no rebound and no guarding. Musculoskeletal: Normal range of motion. Patient exhibits no edema and no tenderness. Skin: Skin is warm. No rash noted. Patient is not diaphoretic. No erythema. No pallor. 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 Encounter for screening mammogram for breast cancer Ordered a mammogram to be obtained in near future. Provided with contact details to schedule an appointment. - Mammo Digital 3D Screening Bilateral; Future 2. Other vascular headache The patient was administered Toradol 60 mg injection today. - ketorolac (TORADOL) injection 60 mg 3. Major depressive disorder, recurrent episode, moderate (HCC) Continue with current treatment. 4. Vascular disease, peripheral (HCC) Continue with current treatment. 5. 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 6. Lung infection The patient was prescribed doxycycline 100 mg 1 capsule two times a day for 7 days. Recommended taking the medication with food. Prescribed prednisone 20 mg 2 tablets 3 times a day. - doxycycline (VIBRAMYCIN) 100 MG capsule; Take 1 capsule (100 mg total) by mouth 2 (two) times a day for 7 days. Dispense: 14 capsule; Refill: 0 - predniSONE (DELTASONE) 20 MG tablet; Take 60 mg daily for three days Dispense: 9 tablet; Refill: 0 7. Dyslipidemia Ordered a blood work to obtain lipid panel. We will call the patient with results. Continue current medication regimen. Goal HDL of 50 or greater. Goal LDL less than 100 and goal of triglycerides less than 150. aerobic exercise 30 minutes 5 times weekly Patient needs to decrease red meat, increase fish/ fowl and grains in their diet as well as fruits and vegetables. Patient should get more than 50% of total calories from whole grain, fruits and vegetables, fiber 20-30 g per day, dietary fat should be no more than 25-35% of total calories and protein about 15% of total calories. Adding in an omega-3 fatty acids such as a fish oil and/or adding tree nuts also seems to help - Lipid panel The patient indicates understanding of these issues and agrees with the plan. I reviewed the patient's medical information and medical history. I have reviewed the past medical, family, and social history sections including the medications and allergies listed in the above medical record I, YESSICA PELLETIER, am scribing for and in the presence of Mike Ann Jr., MD. . I have read and agree with the documentation that has been completed regarding this visit and attest, that it is an accurate record of both my words and actions during the visit. . MIKE ANN JR, [facility] 2020-09-11 10:12:46 Attestation signed by Bess Copeland DO at 09/12/2020 7:09 AM This patient was seen independently by the mid-level provider. eMERGENCY dEPARTMENT eNCOUnter CHIEF COMPLAINT/HPI Chief Complaint Patient presents with - Headache pt states she got the covid vaccine on tuesday, states after that she has had bdy aches, headaches, a productive cough with yellow sputum. pt states she feels little dizzy and is very tired. Ibis Tay is a 65 y.o. female PMH HTN, lung cancer with lobectomy, COPD, Anxiety, chronic pain, hx of alcohol abuse (in remission), who presents with productive cough, yellow sputum, headaches, generalized fatigue, body aches, sore throat and itchy eyes. Patient states symptoms started after she received her COVID vaccination on September 06. Patient states no significant difficulty breathing above her baseline shortness of breath with COPD. She states no alleviating factors, nothing tried. No specific activating factors. Patient's about 6 months ago per her report, she is living with her granddaughter and great grandson in her trailer. Patient requesting a shot of Dilaudid for her headache. REVIEW OF SYSTEMS Review of Systems Constitutional: Positive for chills and fatigue. Negative for fever. HENT: Positive for congestion, sore throat and rhinorrhea. Negative for ear pain. Respiratory: Positive for cough. Negative for shortness of breath and wheezing. Cardiovascular: Negative for chest pain and leg swelling. Gastrointestinal: Negative for nausea, vomiting, abdominal pain, diarrhea and constipation. Endocrine: Negative for polydipsia and polyphagia. Genitourinary: Negative for dysuria and hematuria. Neurological: Positive for headaches. Negative for dizziness, seizures and syncope. Hematological: Does not bruise/bleed easily. Psychiatric/Behavioral: Negative for confusion. The patient is nervous/anxious. *all systems reviewed and are otherwise negative+ PAST MEDICAL HISTORY Past Medical History: Diagnosis Date - Anxiety Takes Xanax - Arthritis - Breast mass 2013 rt axilla - Bronchitis - Bursitis Left hip - Cancer (HCC) 12\2017 left lung cancer, scheduled for left upper lobectomy at [facility] with Dr. Moore - Cervical radiculopathy sees Dr. Cardenas, gets cervical pain injections every 3 months, last done in - COPD (chronic obstructive pulmonary disease) ([facility]) - DDD (degenerative disc disease) - Depression - Dermatological disorder 01/25 irratative dermatitis from insect b ite - Esophageal stricture dilated during upper endoscopy - Generalized anxiety disorder - GERD (gastroesophageal reflux disease) - H. pylori infection Hx of H pylori infection several months ago treated with medication, no current issues. - H/O pyloric stenosis - Hiatal hernia - HTN (hypertension) - Hypercholesteremia - Hyperlipidemia No current medications or issues. - OA (osteoarthritis) of knee - Palpitations with anxiety - Pneumonia 1994 resolved. - PONV (postoperative nausea and vomiting) - PTSD (post-traumatic stress disorder) son was murdered 8 years ago, followed by Dr. Milly Freire - Spinal stenosis cervical - Wears dentures full set - Wears glasses SURGICAL HISTORY Past Surgical History: Procedure Laterality Date - ESOPHAGEAL DILATION 2012 approx. done with upper endoscopy - KNEE ARTHROPLASTY Right 2010 - LUMBAR FUSION 1995 - LUNG LOBECTOMY Left 10/11/2017 Upper - CO TOTAL KNEE ARTHROPLASTY Right 05/28/2014 Procedure: REPLACEMENT TOTAL JOINT KNEE RIGHT / BETO ; Surgeon: Isaak Moncada MD; Location: [facility] OR; Service: Orthopedics - SPINE SURGERY lumbar fusion - TENDON RELEASE Right arm - TOTAL HIP ARTHROPLASTY Left 09/26/14 hip hem-iarthoplasty - TOTAL KNEE ARTHROPLASTY Left 11/23 - TUBAL LIGATION Bilateral - UPPER GASTROINTESTINAL ENDOSCOPY 2012 approx. diagnosed with H. Pylori and esophagus dilated. - UPPER GASTROINTESTINAL ENDOSCOPY CURRENT MEDICATIONS No current facility-administered medications for this encounter. Current Outpatient Medications: - alendronate (FOSAMAX) 70 MG tablet, TAKE 1 TABLET BY MOUTH ONCE WEEKLY ON AN EMPTY STOMACH BEFORE BREAKFAST. REMAIN UPRIGHT FOR 30 MINUTES & TAKE WITH 8 OUNCES OF WATER, Disp: 12 tablet, Rfl: 1 - ALPRAZolam (XANAX) 1 MG tablet, TAKE 1/2 TABLET BY MOUTH FOUR TIMES A DAY NEEDED FOR SLEEP, Disp: 60 tablet, Rfl: 0 - ARIPiprazole (ABILIFY) 15 MG tablet, TAKE ONE TABLET BY MOUTH DAILY, Disp: 30 tablet, Rfl: 0 - azithromycin (ZITHROMAX) 250 MG tablet, Take 1 tablet (250 mg total) by mouth once daily. Take 2 tablets (500mg) by mouth on day one, then 1 tablet (250mg) by mouth daily on days 2 through 5., Disp: 6 tablet, Rfl: 0 - cholecalciferol (VITAMIN D3) 125 mcg (5,000 unit) capsule, TAKE ONE CAPSULE BY MOUTH DAILY, Disp: 90 capsule, Rfl: 3 - diaper,brief,adult,disposable Misc, 1 application by Miscellaneous route 2 (two) times a day., Disp: 96 each, Rfl: 5 - escitalopram oxalate (LEXAPRO) 20 MG tablet, Take 1 tablet (20 mg total) by mouth once daily., Disp: 30 tablet, Rfl: 5 - Flovent Diskus 250 mcg/actuation Disk with Device, INHALE ONE PUFF BY MOUTH TWICE A DAY, Disp: 60 each, Rfl: 3 - fluticasone propionate (Flovent Diskus) 250 mcg/actuation Disk with Device, INHALE ONE PUFF BY MOUTH TWICE A DAY, Disp: 180 each, Rfl: 1 - food supplemt, lactose-reduced (ENSURE) Liquid, Drink 2 bottles per day. Patient requests strawberry., Disp: 25936 mL, Rfl: PRN - hydroCHLOROthiazide (HYDRODIURIL) 25 MG tablet, TAKE ONE TABLET BY MOUTH DAILY, Disp: 90 tablet, Rfl: 1 - HYDROcodone-acetaminophen (NORCO) 10-325 mg per tablet, Take 1 tablet by mouth 3 (three) times a day as needed., Disp: , Rfl: - ipratropium-albuteroL (DUO-NEB) 0.5-2.5 mg/3 mL nebulizer, Inhale 3 mL into the lungs 4 (four) times a day., Disp: 360 vial, Rfl: 3 - lisinopriL (PRINIVIL,ZESTRIL) 5 MG tablet, Take 1 tablet (5 mg total) by mouth once daily., Disp: 30 tablet, Rfl: 0 - naloxone 2 mg/actuation [place], Non-Aerosol, 2 mg by Nasal route as needed. 1-2 daily PRN. Proceed to ER for evaluation immediately following use. (Patient not taking: Reported on 07/27/2019 ), Disp: 4 each, Rfl: 1 - omeprazole (PRILOSEC) 40 MG capsule, Take 1 capsule (40 mg total) by mouth once daily., Disp: 90 capsule, Rfl: 0 - potassium chloride (KLOR-CON) 10 MEQ CR tablet, TAKE TWO TABLETS BY MOUTH TWICE A DAY, Disp: 120 tablet, Rfl: 0 - prazosin (MINIPRESS) 5 MG capsule, TAKE ONE CAPSULE BY MOUTH EVERY EVENING, Disp: 30 capsule, Rfl: 2 - predniSONE (DELTASONE) 20 MG tablet, Take 2 tablets (40 mg total) by mouth once daily for 5 days., Disp: 10 tablet, Rfl: 0 - PROAIR HFA 90 mcg/actuation inhaler, INHALE TWO PUFFS BY MOUTH FOUR TIMES A DAY, Disp: 8.5 each, Rfl: 11 - tiZANidine (ZANAFLEX) 4 MG tablet, TAKE ONE TABLET BY MOUTH TWICE A DAY, Disp: 60 tablet, Rfl: 1 - traMADoL (ULTRAM) 50 mg tablet, Take 1 tablet (50 mg total) by mouth every 6 (six) hours as needed for pain. Max Daily Amount: 200 mg, Disp: 4 tablet, Rfl: 0 ALLERGIES Allergies Allergen Reactions - Penicillins Anaphylaxis - Gabapentin Other (See Comments) severe fatigue - Sulfa (Sulfonamide Antibiotics) Other (See Comments) Blisters inside and outside of mouth. - Wellbutrin [Bupropion Hcl] Other (See Comments) Body numbness and tingling FAMILY HISTORY Family History Problem Relation Age of Onset - Other Other Hx: Yes Dx: Diabetes Fam Mem: Family h/o - Drug abuse Other - Other Other Hx: Yes Dx: Hypertension Fam Mem: Mother - Drug abuse Other - Hypertension Mother - Heart disease Mother - Diabetes Mother - No Known Problem Father - Other Sister - Cancer Sister - Other Other Hx: Yes Dx: Heart disease Fam Mem: Mother - Diabetes Maternal Grandmother SOCIAL HISTORY Social History Socioeconomic History - Marital status: Spouse name: Not on file - Number of children: Not on file - Years of education: 14 - Highest education level: Not on file Occupational History - Not on file Social Needs - Financial resource strain: Not on file - Food insecurity Worry: Not on file Inability: Not on file - Transportation needs Medical: Not on file Non-medical: Not on file Tobacco Use - Smoking status: Current Every Day Smoker Packs/day: 0.50 Years: 44.00 Pack years: 22.00 Types: Cigarettes - Smokeless tobacco: Current User Substance and Sexual Activity - Alcohol use: No - Drug use: No - Sexual activity: Not on file Lifestyle - Physical activity Days per week: Not on file Minutes per session: Not on file - Stress: Not on file Relationships - Social connections Talks on phone: Not on file Gets together: Not on file Attends denominational service: Not on file Active member of club or organization: Not on file Attends meetings of clubs or organizations: Not on file Relationship status: Not on file - Intimate partner violence Fear of current or ex partner: Not on file Emotionally abused: Not on file Physically abused: Not on file Forced sexual activity: Not on file Other Topics Concern - Not on file Social History Narrative - Not on file PHYSICAL EXAM VITAL SIGNS: BP 146/65 (BP Location: Left arm, Patient Position: Sitting) Pulse 74 Temp 36.7 C (98.1 F) (Oral) Resp 18 Ht 5' 2 (1.575 m) Wt 55.3 kg (122 lb) SpO2 98% BMI 22.31 kg/m Constitutional: Patient is oriented to person, place, and time. Patient appears well-developed and well-nourished. HENT: Head: Normocephalic and atraumatic. Eyes: Conjunctivae and EOM are normal. Pupils are equal, round, and reactive to light. Mouth/throat: oral mucosa moist, tonsils not swollen bu mildly erythematous-dentures in place, no exudates noted Neck: Normal range of motion. Neck supple. Cardiovascular: Normal rate, regular rhythm and normal heart sounds. Pulmonary/Chest: Effort normal and breath sounds normal. No respiratory distress. Cough present. Abdominal: thin. Patient exhibits no distension and no mass. There is no tenderness. There is no rebound and no guarding. Musculoskeletal: Normal range of motion. Neurological: Patient is alert and oriented to person, place, and time. Skin: Skin is warm and dry. Psychiatric: Patient is anxious during the interview and exam EKG RADIOLOGY/PROCEDURES ED Imaging Results & Wet Read XR Chest 1 View (Final result) Result time 09/11/20 10:43:34 Final result by Apollo Morgan MD (09/11/20 10:43:34) Impression: : 1. COPD, and prior left thoracotomy scarring and fibrosis. 2. No current active chest disease or new abnormality since 02/03/2020. Narrative: EXAM: Chest AP upright portable 09/11/2020 at 10:26 AM. REASON FOR EXAM: Prior partial left lung resection for lung CA, COPD, had Covid vaccine 5 days ago and now has flulike symptoms with productive cough in a 65-year-old female. DISCUSSION: A single portable view of the chest was obtained and comparison is made to prior studies dated 02/03/2020 and 08/09/2019. The cardiac silhouette and pulmonary vascularity are within normal limits and there is no pulmonary edema. The thoracic aorta is atherosclerotic. There has been a prior left thoracotomy and there is chronic scarring and fibrosis extending from the left hilum into the left superior sulcus, which is unchanged. No new infiltrate or consolidation and there is no pleural effusion or pneumothorax. The right lung is hyperinflated and free of focal abnormality. LABS Labs Reviewed RESP PANEL 4-PLEX Invalid input(s): ALKALPHOS, SGOTAST, SGPTAST, TOTALBILIRUB, LACTICACIDLE Patient tested fro COVID-19. -Patient understands they should remain self-isolated at home until they have been contacted with results/plan for further evaluation and follow up. Patient encouraged to continue any PRN medication needed for symptoms -Discussed humidified air, rest, hydration Discussed if symptoms were to significantly worsen they should seek care within the emergency department. Patient has been instructed that they should attempt to call ahead to the emergency department if possible so as to not expose others to current illness. *Interview and exam was completed with PPE precautions worn by provider (gloves, n95 mask, gown and face shield) as patient had triggered positive screening by phone evaluation. Patient was brought into the clinic with procedure mask and gloves on, through secured entrance and exam was then completed with provider PPE in isolation room. Specimens were gathered in room, testing was completed in room - all to minimize possible exposure. ED COURSE & MEDICAL DECISION MAKING Pertinent Labs & Imaging studies reviewed. (See chart for details) Patient's Covid test negative, chest x-ray shows no acute abnormality. Patient will be given azithromycin, prednisone and cough medicine as she has a history of COPD and this is likely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 a 22.00 pack-year smoking history. She uses smokeless tobacco. She reports that she does not drink alcohol or use drugs. Past Medical, Family and Social History have been reviewed PHYSICAL EXAM (up to 7 for level 4, 8 or more for level 5) Vitals: 07/19/20 1646 07/19/20 1930 07/19/20 1945 BP: 155/83 170/83 170/79 BP Location: Right arm Patient Position: Sitting Pulse: [phone] 74 Resp: 20 20 20 Temp: 36.4 C (97.5 F) 36.8 C (98.2 F) 36.8 C (98.2 F) TempSrc: Temporal Oral Oral SpO2: 97% 98% 98% Physical Exam Constitutional: She is oriented to person, place, and time. She appears well-developed and well-nourished. No distress. HENT: Head: Normocephalic. Right Ear: External ear normal. Left Ear: External ear normal. Nose: Nose normal. Mouth/Throat: Oropharynx is clear and moist. Eyes: Pupils are equal, round, and reactive to light. Conjunctivae and EOM are normal. Neck: Normal range of motion. Cardiovascular: Normal rate, normal heart sounds and intact distal pulses. Pulmonary/Chest: Effort normal and breath sounds normal. No respiratory distress. She exhibits no tenderness. Abdominal: Soft. Bowel sounds are normal. She exhibits no distension. There is no abdominal tenderness. There is no rebound and no guarding. Musculoskeletal: General: Tenderness present. Left wrist: She exhibits tenderness and bony tenderness. She exhibits no swelling and no effusion. Left ankle: She exhibits decreased range of motion, swelling and ecchymosis. Tenderness. Lateral malleolus tenderness found. Left upper leg: She exhibits tenderness and bony tenderness. Neurological: She is alert and oriented to person, place, and time. Skin: Skin is warm and dry. Psychiatric: She has a normal mood and affect. Her behavior is normal. Judgment and thought content normal. Nursing note and vitals reviewed. DIAGNOSTIC RESULTS EKG: All EKG's are interpreted by the Emergency Department Physician who either signs or Co-signs this chart in the absence of a contact center associate. RADIOLOGY: Non-plain film images such as CT, Ultrasound and MRI are read by the radiologist. Plain radiographic images are visualized and preliminarily interpreted by the emergency physician with the below findings: Interpretation per the Radiologist below, if available at the time of this note: XR Wrist Minimum 3 Views Left Final Result : 1. No acute osseous abnormality in the left wrist. 2. Advanced arthritic changes of the first carpometacarpal joint. XR Femur 2 or More Views Left Final Result : No acute osseous abnormality in the left femur. XR Ankle Minimum 3 Views Left Final Result : No acute osseous abnormality of the ankle. LABS: ED Lab Results None All other labs were within normal range or not returned as of this dictation. EMERGENCY DEPARTMENT COURSE and DIFFERENTIAL DIAGNOSIS / MDM: Vitals: ) Vitals: 07/19/20 1646 07/19/20 1930 07/19/20 1945 BP: 155/83 170/83 170/79 BP Location: Right arm Patient Position: Sitting Pulse: 103 71 74 Resp: 20 20 20 Temp: 36.4 C (97.5 F) 36.8 C (98.2 F) 36.8 C (98.2 F) TempSrc: Temporal Oral Oral SpO2: 97% 98% 98% Ibis Tay was seen and evaluated in the emergency department. Radiographic imaging obtained, negative for acute osseous abnormality. Instructed likely sprain. Discussed plan of care including RICE and erlin wrap compression therapy. Discussed estimated duration of injury. Instructed on weight bearing as tolerated. Patient and/or guardian was instructed on supportive care. Patient and/or guardian was given strict return precautions, including follow up. Patient and/or guardian verbalized understanding and agreement with the plan. She is stable for discharge at this time.I explained that the ED diagnosis is a preliminary one based on current presentation. Strict return to ER instructions were described to the patient including refractory pain, fevers, inability to tolerate oral intake, new or alarming symptoms. The patient states they are comfortable with this plan. Questions were answered and patient verbalized understanding of discharge instructions and plan. Patient instructed to follow up with PMD in 2 days. Incidental findings of ER workup discussed. Patient will follow-up with PMD for additional evaluation. Prior to issuing an initial prescription for a course of treatment for acute or chronic pain and again prior to the third prescription for such course of treatment the following risks of addiction and overdose was discussed with Ibis Tay and/or her parent/guardian: That, even if used appropriately as prescribed, controlled substances are highly addictive There is a risk of developing a physical or psychological dependence on the controlled substance or opiate Taking more controlled substances or opiates than prescribed, or mixing sedatives, benzodiazepines, or alcohol with controlled substances or opiates, can result in fatal respiratory depression. The necessity for the prescription was discussed along with alternative treatments including but not limited to non-opioid medications, exercise/physical therapy, complementary therapies and referrals as appropriate. Administered Meds Date/Time Order Dose Route Action Comments 07/19/2020 190 HYDROmorphone (DILAUDID) syringe 1 mg 1 mg IntraMuscular Given CONSULTS: None PROCEDURES: None CRITICAL CARE TIME Total Critical Care time was 32 minutes, excluding separately reportable procedures. There was a high probability of clinically significant/life threatening deterioration in the patient's condition which required my urgent intervention. Blood pressure screening Pre-hypertension/hypertension: The patient has been informed that they may have pre-hypertension or hypertension based on a blood pressure reading in the emergency department. I recommend that the patient call the primary care provider listed on their discharge instructions or a physician of their choice this week to arrange follow-up for further motion of possible pre-hypertension or hypertension FINAL IMPRESSION 1. Fall from ground level 2. Left wrist pain 3. Left leg pain 4. Abrasion DISPOSITION Discharge [1] 07/19/2020 7:41 PM PATIENT REFERRED TO: Mike Ann Jr., MD [address] [id number] Schedule an appointment as soon as possible for a visit in 3 days Follow up condition, As needed DISCHARGE MEDICATIONS: Medication List START taking these medications traMADoL 50 mg tablet Quantity: 4 tablet Commonly known as: ULTRAM Take 1 tablet (50 mg total) by mouth every 6 (six) hours as needed for pain. Max Daily Amount: 200 mg CONTINUE taking these medications alendronate 70 MG tablet Quantity: 12 tablet Commonly known as: FOSAMAX TAKE ON EMPTY STOMACH ONCE WEEKLY SITTING UPRIGHT FOR FULL HOUR AFTER TAKING WITH BIG GLASS OF WATER. *NO OTHER MEDS OR FOOD FOR ONE HOUR* ALPRAZolam 1 MG tablet Quantity: 60 tablet Commonly known as: XANAX TAKE 1/2 TABLET BY MOUTH FOUR TIMES A DAY NEEDED FOR SLEEP ARIPiprazole 15 MG tablet Quantity: 30 tablet Commonly known as: ABILIFY TAKE ONE TABLET BY MOUTH DAILY azithromycin 250 MG tablet Quantity: 6 tablet Commonly known as: Zithromax Z-Nimo Take 2 tablets (500mg) by mouth on day one, then 1 tablet (250mg) by mouth daily on days 2 through 5. cholecalciferol 125 mcg (5,000 unit) capsule Quantity: 90 capsule Commonly known as: VITAMIN D3 TAKE ONE CAPSULE BY MOUTH DAILY diaper,brief,adult,disposable Misc Quantity: 96 each 1 application by Miscellaneous route 2 (two) times a day. escitalopram oxalate 20 MG tablet Quantity: 30 tablet Commonly known as: LEXAPRO Take 1 tablet (20 mg total) by mouth once daily. Flovent Diskus 250 mcg/actuation Dsdv Quantity: 60 each Generic drug: fluticasone propionate INHALE ONE PUFF BY MOUTH TWICE A DAY food supplemt, lactose-reduced Liqd Quantity: 01611 mL Commonly known as: Ensure Drink 2 bottles per day. Patient requests strawberry. hydroCHLOROthiazide 25 MG tablet Quantity: 45 tablet Commonly known as: HYDRODIURIL Take 0.5 tablets (12.5 mg total) by mouth once daily. HYDROcodone-acetaminophen 10-325 mg per tablet Commonly known as: NORCO Take 1 tablet by mouth 3 (three) times a day as needed. ipratropium-albuteroL 0.5-2.5 mg/3 mL nebulizer Quantity: 360 vial Commonly known as: DUO-NEB Inhale 3 mL into the lungs 4 (four) times a day. lisinopriL 5 MG tablet Quantity: 45 tablet Commonly known as: PRINIVIL,ZESTRIL Take 0.5 tablets (2.5 mg total) by mouth once daily. naloxone 2 mg/actuation [place] Quantity: 4 each 2 mg by Nasal route as needed. 1-2 daily PRN. Proceed to ER for evaluation immediately following use. omeprazole 40 MG capsule Quantity: 90 capsule Commonly known as: PriLOSEC Take 1 capsule (40 mg total) by mouth once daily. potassium chloride 10 MEQ CR tablet Quantity: 120 tablet Commonly known as: KLOR-CON TAKE TWO TABLETS BY MOUTH TWICE A DAY prazosin 5 MG capsule Quantity: 30 capsule Commonly known as: MINIPRESS Take 1 capsule (5 mg total) by mouth every evening. ProAir HFA 90 mcg/actuation inhaler Quantity: 8.5 each Generic drug: albuterol INHALE TWO PUFFS BY MOUTH FOUR TIMES A DAY tiZANidine 4 MG tablet Quantity: 60 tablet Commonly known as: ZANAFLEX TAKE ONE TABLET BY MOUTH TWICE A DAY Where to Get Your Medications You can get these medications from any pharmacy Bring a paper prescription for each of these medications traMADoL 50 mg tablet (Please note that portions of this note were completed with a voice recognition program. Efforts were made to edit the dictations but occasionally words are mis-transcribed.) MITALI Sargent APRN 07/19/20 2130 Priyanka Lin MD 07/20/20 1339 LIZ ELMORE [facility] 2020-05-01 16:00:00 Patient not seen tod ay, but encounter created to place order for cologuard. LUCILLE NEVAREZ [facility] 2020-02-03 13:53:00 Patient notified of negative COVID-19 test results. Jerica Meadows, PAC 02/07/20 1758 JERICA MEADOWS [facility] 2020-02-03 12:24:23 eMERGENCY dEPARTMENT eNCOUnter CHIEF COMPLAINT/HPI Chief Complaint Patient presents with - Cough Patient reports dry cough, states she cant smell but is also congested. Reports labile blood pressures. Ibis Tay is a 64 y.o. female who presents with cough. Patient presents via EMS with a 3-day history of nonproductive cough, loss of smell, and headache. Also complains of nausea and diarrhea and sore throat. She was feeling lightheaded and dizzy today. She does have a history of COPD and lung cancer. She is a smoker. Also has a history of chronic back pain and is followed by pain management. She is on 10 mg hydrocodone but states it has not been helping with her headache. Denies any fever. No obvious ill contacts but she lives at home with her who was recently hospitalized in a snf for rehab several months ago. REVIEW OF SYSTEMS General ROS: negative for - chills, fever or night sweats Psychological ROS: negative for - depression or suicidal ideation Ophthalmic ROS: negative for - decreased vision, eye pain or loss of vision ENT ROS: negative for - epistaxis, nasal congestion or sore throat Respiratory ROS: Positive for cough Cardiovascular ROS: negative for - chest pain or palpitations Gastrointestinal ROS: negative for - abdominal pain, constipation, diarrhea or nausea/vomiting Genito-Urinary ROS: negative for - dysuria or urinary frequency/urgency, pelvic pain, or abnormal vaginal discharge Musculoskeletal ROS: negative for - joint pain or muscle pain Neurological ROS: Positive for dyspnea Dermatological ROS: negative for rash *all systems reviewed and are otherwise negative* PAST MEDICAL HISTORY Past Medical History: Diagnosis Date - Anxiety Takes Xanax - Arthritis - Breast mass 2013 rt axilla - Bronchitis - Bursitis Left hip - Cancer ([facility]) 12 left lung cancer, scheduled for left upper lobectomy at [facility] with Dr. Moore - Cervical radiculopathy sees Dr. Cardenas, gets cervical pain injections every 3 months, last done in - COPD (chronic obstructive pulmonary disease) ([facility]) - DDD (degenerative disc disease) - Depression - Dermatological disorder 01/25 irratative dermatitis from insect b ite - Esophageal stricture dilated during upper endoscopy - Generalized anxiety disorder - GERD (gastroesophageal reflux disease) - H. pylori infection Hx of H pylori infection several months ago treated with medication, no current issues. - H/O pyloric stenosis - Hiatal hernia - HTN (hypertension) - Hypercholesteremia - Hyperlipidemia No current medications or issues. - OA (osteoarthritis) of knee - Palpitations with anxiety - Pneumonia 1994 resolved. - PONV (postoperative nausea and vomiting) - PTSD (post-traumatic stress disorder) son was murdered 8 years ago, followed by Dr. Milly Freire - Spinal stenosis cervical - Wears dentures full set - Wears glasses SURGICAL HISTORY Past Surgical History: Procedure Laterality Date - ESOPHAGEAL DILATION 2012 approx. done with upper endoscopy - KNEE ARTHROPLASTY Right 2010 - LUMBAR FUSION 1995 - LUNG LOBECTOMY Left 10/11/2017 Upper - CO TOTAL KNEE ARTHROPLASTY Right 05/28/2014 Procedure: REPLACEMENT TOTAL JOINT KNEE RIGHT / BETO ; Surgeon: Isaak Moncada MD; Location: [facility] OR; Service: Orthopedics - SPINE SURGERY lumbar fusion - TENDON RELEASE Right arm - TOTAL HIP ARTHROPLASTY Left 09/26/14 hip hem-iarthoplasty - TOTAL KNEE ARTHROPLASTY Left 11/23 - TUBAL LIGATION Bilateral - UPPER GASTROINTESTINAL ENDOSCOPY 2012 approx. diagnosed with H. Pylori and esophagus dilated. - UPPER GASTROINTESTINAL ENDOSCOPY CURRENT MEDICATIONS Prior to Admission medications Medication Sig Start Date End Date Taking? Authorizing Provider alendronate (FOSAMAX) 70 MG tablet TAKE ON EMPTY STOMACH ONCE WEEKLY SITTING UPRIGHT FOR FULL HOUR AFTER TAKING WITH BIG GLASS OF WATER. *NO OTHER MEDS OR FOOD FOR ONE HOUR* 4/30/20 Mike Ann Jr., MD ALPRAZolam (XANAX) 1 MG tablet TAKE ONE-HALF TABLET BY MOUTH FOUR TIMES A DAY NEEDED FOR ANXIETY 01/01/20 Parth Lemos MD ARIPiprazole (ABILIFY) 15 MG tablet TAKE ONE TABLET BY MOUTH DAILY 01/09/20 Parth Lemos MD cholecalciferol (VITAMIN D3) 125 mcg (5,000 unit) capsule TAKE ONE CAPSULE BY MOUTH DAILY 12/11/19 Mike Ann Jr., MD diaper,brief,adult,disposable Misc 1 application by Miscellaneous route 2 (two) times a day. 12/01/15 Mike Ann Jr., MD escitalopram oxalate (LEXAPRO) 20 MG tablet Take 1 tablet (20 mg total) by mouth once daily. 09/13/19 Parth Lemos MD fluticasone propionate (FLOVENT DISKUS) 250 mcg/actuation Disk with Device INHALE ONE PUFF BY MOUTH TWICE A DAY 03/15/19 Mike Ann Jr., MD food supplemt, lactose-reduced (ENSURE) Liquid Drink 2 bottles per day. Patient requests strawberry. 11/19/16 Mike Ann Jr., MD hydroCHLOROthiazide (HYDRODIURIL) 25 MG tablet Take 0.5 tablets (12.5 mg total) by mouth once daily. 09/27/19 Mike Ann Jr., MD HYDROcodone-acetaminophen (NORCO) 10-325 mg per tablet Take 1 tablet by mouth 3 (three) times a day as needed. Historical Provider, ipratropium-albuterol (DUO-NEB) 0.5-2.5 mg/3 mL nebulizer Inhale 3 mL into the lungs 4 (four) times a day. 08/17/17 Mike Ann Jr., MD lisinopriL (PRINIVIL,ZESTRIL) 5 MG tablet Take 0.5 tablets (2.5 mg total) by mouth once daily. 09/27/19 09/26/20 Mike Ann Jr., MD naloxone 2 mg/actuation [place], Non-Aerosol 2 mg by Nasal route as needed. 1-2 daily PRN. Proceed to ER for evaluation immediately following use. Patient not taking: Reported on 07/27/2019 05/16/18 Isaías Cardenas MD omeprazole (PRILOSEC) 40 MG capsule TAKE ONE CAPSULE BY MOUTH DAILY 12/11/19 Mike Ann Jr., MD potassium chloride (KLOR-CON) 10 MEQ CR tablet Take 2 tablets (20 mEq total) by mouth 2 (two) times a day. 12/13/19 Mike Ann Jr., MD prazosin (MINIPRESS) 1 MG capsule Take 4 capsules (4 mg total) by mouth every evening. 01/15/20 Parth Lemos MD PROAIR HFA 90 mcg/actuation inhaler INHALE TWO PUFFS BY MOUTH FOUR TIMES A DAY 03/15/19 Mike Ann Jr., MD tiZANidine (ZANAFLEX) 4 MG tablet TAKE ONE TABLET BY MOUTH TWICE A DAY 07/16/19 Isaías Cardenas MD ALLERGIES Allergies Allergen Reactions - Penicillins Anaphylaxis - Gabapentin Other (See Comments) severe fatigue - Sulfa (Sulfonamide Antibiotics) Other (See Comments) Blisters inside and outside of mouth. - Wellbutrin [Bupropion Hcl] Other (See Comments) Body numbness and tingling FAMILY HISTORY Family History Problem Relation Age of Onset - Other Other Hx: Yes Dx: Diabetes Fam Mem: Family h/o - Drug abuse Other - Other Other Hx: Yes Dx: Hypertension Fam Mem: Mother - Drug abuse Other - Hypertension Mother - Heart disease Mother - Diabetes Mother - No Known Problem Father - Other Sister - Cancer Sister - Other Other Hx: Yes Dx: Heart disease Fam Mem: Mother - Diabetes Maternal Grandmother SOCIAL HISTORY Social History Socioeconomic History - Marital status: Spouse name: Not on file - Number of children: Not on file - Years of education: 14 - Highest education level: Not on file Occupational History - Not on file Social Needs - Financial resource strain: Not on file - Food insecurity: Worry: Not on file Inability: Not on file - Transportation needs: Medical: Not on file Non-medical: Not on file Tobacco Use - Smoking status: Current Every Day Smoker Packs/day: 0.50 Years: 44.00 Pack years: 22.00 Types: Cigarettes - Smokeless tobacco: Current User Substance and Sexual Activity - Alcohol use: No - Drug use: No - Sexual activity: Not on file Lifestyle - Physical activity: Days per week: Not on file Minutes per session: Not on file - Stress: Not on file Relationships - Social connections: Talks on phone: Not on file Gets together: Not on file Attends denominational service: Not on file Active member of club or organization: Not on file Attends meetings of clubs or organizations: Not on file Relationship status: Not on file - Intimate partner violence: Fear of current or ex partner: Not on file Emotionally abused: Not on file Physically abused: Not on file Forced sexual activity: Not on file Other Topics Concern - Not on file Social History Narrative - Not on file PHYSICAL EXAM VITAL SIGNS: BP 139/69 (BP Location: Right arm, Patient Position: Lying) Pulse 74 Temp 37 C (98.6 F) SpO2 97% Constitutional: 64-year-old female no acute distress. Eyes: PERRL, conjunctiva normal, no periorbital edema. HENT: External ears normal, nose normal..no drainage, neck supple. Respiratory: No respiratory distress, slight wheezing noted left upper lobe, breathing nonlabored. Cardiovascular: Normal rate, good peripheral perfusion. GI: Abdomen soft, nondistended, no rebound guarding or rigidity. : Musculoskeletal: Extremities nontender, normal range of motion, no visible trauma. Back -Normal tone, no trauma. Integument: Well hydrated, no edema, no significant rash. Neurologic: Alert, appropriate, oriented to person, place and time. Psych: EKG RADIOLOGY/PROCEDURES ED Imaging Results & Wet Read XR Chest 1 View (Final result) Result time 02/03/20 12:57:20 Final result by Carmen Fuentes MD (02/03/20 12:57:20) Impression: : 1. Cardiomegaly. 2. Elevation left hemidiaphragm. 3. Tortuous aorta. 4. Right lung field clear with better ventilation of the lung butterfield from prior study. Narrative: REASON FOR EXAM: Cough DISCUSSION: AP upright view the chest demonstrates cardiomegaly. There is elevation left hemidiaphragm. A tortuous aorta is seen. The right lung field is clear. There is better ventilation of the lung butterfield from the old exam. LABS ED Lab Results Procedure Component Value Ref Range Date/Time Comprehensive metabolic panel [[id number]] (Abnormal) Collected: 02/03/20 1250 Order Status: Completed Specimen: Blood Updated: 02/03/20 1328 Glucose 99 70 - 100 mg/dl BUN 10 6 - 24 mg/dl Creatinine 0.71 0.50 - 1.10 mg/dl Sodium 142 135 - 145 mmol/L Potassium 3.6 3.7 - 5.1 mmol/L Chloride 111 96 - 110 mmol/L CO2 28.0 22.0 - 32.0 mmol/L Anion Gap 7 <=20 mmol/L Calcium 8.8 8.5 - 10.5 mg/dl Total Protein 6.5 6.0 - 8.4 gm/dl Albumin 3.4 3.5 - 5.0 gm/dl Globulin 3.1 2.0 - 4.4 gm/dl AST 8 10 - 40 u/l Alkaline Phosphatase 85 33 - 138 u/l Total Bilirubin 0.3 0.0 - 1.5 mg/dl ALT 15 12 - 78 u/l GFR MDRD Af Amer >90 >=90 mL/min/1.73 m2 GFR MDRD Non Af Amer 88 >=90 mL/min/1.73 m2 Lactic acid, venous [[id number]] Collected: 02/03/20 125 Order Status: Completed Specimen: Blood Updated: 02/03/20 1327 Lactic Acid 1.1 0.4 - 2.0 mmol/L CBC auto differential [[id number]] Collected: 02/03/20 125 Order Status: Completed Specimen: Blood Updated: 02/03/20 1307 WBC 5.5 4.0 - 12.0 k/ul RBC 4.89 3.50 - 5.30 m/ul HEMOGLOBIN 13.7 12.0 - 16.0 gm/dl Hematocrit 41.3 36.0 - 48.0 % MCV 84 80 - 100 fl MCH 28.0 26.0 - 34.0 pg MCHC 33.2 30.0 - 37.0 gm/dl RDW 13.0 11.5 - 15.0 % Platelet Count 254 140 - 440 k/ul MPV 9.5 8.5 - 12.5 fl Neutrophils % 64 % Immature Granulocytes % 0 % Lymphs % 29 % Monocytes % 4 % Eosinophils Percent 2 % Basophils Percent 0 % Neutrophils Abs 3.5 1.5 - 8.0 k/ul Immature Granulocytes Abs 0.0 0.0 - 0.1 k/ul Lymphs Abs 1.6 1.0 - 4.5 k/ul Monocytes Abs 0.2 0.1 - 1.1 k/ul Eosinophils Absolute 0.1 0.0 - 0.4 k/ul Basophils Absolute 0.0 0.0 - 0.1 k/ul Protime-INR - STAT [[id number]] Collected: 02/03/20 1250 Order Status: Completed Specimen: Blood Updated: 02/03/20 1323 Protime 11.4 9.6 - 11.9 sec INR 1.1 0.9 - 1.1 Activated partial thromboplastin time [[id number]] Collected: 02/03/20 1250 Order Status: Completed Specimen: Blood Updated: 02/03/20 1323 aPTT 28.6 22.8 - 33.9 sec Results from last 7 days Lab Units 02/03/20 1250 INR 1.1 Results from last 7 days Lab Units 02/03/20 1250 SODIUM mmol/L 142 POTASSIUM mmol/L 3.6* CHLORIDE mmol/L 111* GLUCOSE mg/dl 99 CALCIUM mg/dl 8.8 PROTEIN TOTAL gm/dl 6.5 ALBUMIN gm/dl 3.4* BUN mg/dl 10 GLOBULIN gm/dl 3.1 ANION GAP2 mmol/L 7 CO2 mmol/L 28.0 CREAT mg/dl 0.71 BILIRUBIN TOTAL mg/dl 0.3 AST u/l 8* ALT u/l 15 Results from last 7 days Lab Units 02/03/20 1250 HEMOGLOBIN gm/dl 13.7 HEMATOCRIT % 41.3 RBC m/ul 4.89 WBC k/ul 5.5 MCV fl 84 MCH pg 28.0 MCHC gm/dl 33.2 PLATELETS k/ul 254 RDW % 13.0 ED COURSE & MEDICAL DECISION MAKING Pertinent Labs & Imaging studies reviewed. (See chart for details) Administered Meds Date/Time Order Dose Route Action Comments 02/03/2020 1304 HYDROmorphone (DILAUDID) syringe 1 mg 1 mg IntraVENous Given 02/03/2020 1303 ondansetron (ZOFRAN) 4 mg/2 mL injection 4 mg 4 mg IntraVENous Given 02/03/2020 1303 sodium chloride 0.9% (NORMAL SALINE) bolus 1,000 mL 1,000 mL IntraVENous New Bag Chest x-ray clear, lab work stable. COVID test obtained, we will call patient in 2 days with results. Patient states she actually has an appointment to see her primary care doctor tomorrow. Told return to the ER for any worsening or new symptoms. O2 saturations 99% on room air at time of discharge during my discharge discussion with her DIAGNOSIS 1. Chronic obstructive pulmonary disease, unspecified COPD type (HCC) DISPOSITION: Discharge [1] 02/03/2020 1:40 PM PATIENT REFERRED TO: Mike Ann Jr., MD [address] [facility] [address] [facility] [id number] In 1 day DISCHARGE MEDICATIONS: Medication List START taking these medications azithromycin 250 MG tablet Quantity: 6 tablet Commonly known as: Zithromax Z-Nimo Take 2 tablets (500mg) by mouth on day one, then 1 tablet (250mg) by mouth daily on days 2 through 5. ASK your doctor about these medications alendronate 70 MG tablet Quantity: 12 tablet Commonly known as: FOSAMAX TAKE ON EMPTY STOMACH ONCE WEEKLY SITTING UPRIGHT FOR FULL HOUR AFTER TAKING WITH BIG GLASS OF WATER. *NO OTHER MEDS OR FOOD FOR ONE HOUR* ALPRAZolam 1 MG tablet Quantity: 60 tablet Commonly known as: XANAX TAKE ONE-HALF TABLET BY MOUTH FOUR TIMES A DAY NEEDED FOR ANXIETY ARIPiprazole 15 MG tablet Quantity: 30 tablet Commonly known as: ABILIFY TAKE ONE TABLET BY MOUTH DAILY cholecalciferol 125 mcg (5,000 unit) capsule Quantity: 90 capsule Commonly known as: VITAMIN D3 TAKE ONE CAPSULE BY MOUTH DAILY diaper,brief,adult,disposable Misc Quantity: 96 each 1 application by Miscellaneous route 2 (two) times a day. escitalopram oxalate 20 MG tablet Quantity: 30 tablet Commonly known as: LEXAPRO Take 1 tablet (20 mg total) by mouth once daily. fluticasone propionate 250 mcg/actuation Dsdv Quantity: 60 each Commonly known as: Flovent Diskus INHALE ONE PUFF BY MOUTH TWICE A DAY food supplemt, lactose-reduced Liqd Quantity: 89878 mL Commonly known as: Ensure Drink 2 bottles per day. Patient requests strawberry. hydroCHLOROthiazide 25 MG tablet Quantity: 45 tablet Commonly known as: HYDRODIURIL Take 0.5 tablets (12.5 mg total) by mouth once daily. HYDROcodone-acetaminophen 10-325 mg per tablet Commonly known as: NORCO Take 1 tablet by mouth 3 (three) times a day as needed. ipratropium-albuteroL 0.5-2.5 mg/3 mL nebulizer Quantity: 360 vial Commonly known as: DUO-NEB Inhale 3 mL into the lungs 4 (four) times a day. lisinopriL 5 MG tablet Quantity: 45 tablet Commonly known as: PRINIVIL,ZESTRIL Take 0.5 tablets (2.5 mg total) by mouth once daily. naloxone 2 mg/actuation [place] Quantity: 4 each 2 mg by Nasal route as needed. 1-2 daily PRN. Proceed to ER for evaluation immediately following use. omeprazole 40 MG capsule Quantity: 30 capsule Commonly known as: PriLOSEC TAKE ONE CAPSULE BY MOUTH DAILY potassium chloride 10 MEQ CR tablet Quantity: 120 tablet Commonly known as: KLOR-CON Take 2 tablets (20 mEq total) by mouth 2 (two) times a day. prazosin 1 MG capsule Quantity: 120 capsule Commonly known as: MINIPRESS Take 4 capsules (4 mg total) by mouth every evening. ProAir HFA 90 mcg/actuation inhaler Quantity: 8.5 each Generic drug: albuterol INHALE TWO PUFFS BY MOUTH FOUR TIMES A DAY tiZANidine 4 MG tablet Quantity: 60 tablet Commonly known as: ZANAFLEX TAKE ONE TABLET BY MOUTH TWICE A DAY Where to Get Your Medications You can get these medications from any pharmacy Bring a paper prescription for each of these medications azithromycin 250 MG tablet *This note was compiled in part using Pegg[employer] voice recognition technology. The note may contain topographical, grammatical, and voice recognition errors* Quang Grimm DO 02/03/20 1341 QUANG GRIMM [facility] 2020-01-15 12:00:00 Subjective: Patient ID: Ibis Tay is a 64 y.o. female. No chief complaint on file. This is a tele-med visit patient is aware that this will generator charge and in no and patient gave approval for us to proceed before we started the actual visit. Visit occurred between 653 and 702 HPI this is a 64-year old white female smoker with known history of hypertension presently on lisinopril 5 mg one half tab daily and hydrochlorothiazide 25 mg one half tab daily is noted to have elevated blood pressure with her last visit back in July. Patient has had home health care nurse check with last blood pressure 162/82-140 in January 08, 2020. Patient has recently been checking blood pressures twice daily and is gone from a forearm cough to a upper arm cuff. Patient should follow a low-salt diet she is tries to walk when the weather allows she does do the walking marcher in her lazy boy when she gets a chance and once again she is trying to follow a low-salt diet. No chest pain no shortness of breath today. Patient that she is trying to make an appointment in the office once her is home from the hospital she has a growth in her mouth that she would like looked at. With last BMP in July had a glucose elevated to 156 she was not sure if she was fasting or not she denies history of diabetes she is on a diabetic medication she not having excessive thirst or frequent urination. Patient also has a history of dyslipidemia presently controlled with diet Review of Systems This is a tele-med visit Objective: There were no vitals taken for this visit. Physical Exam This is a tele-med visit Assessment/Plan: Problem List Items Addressed This Visit None 1. Essential hypertension increase lisinopril to 5 mg 1 tab p.o. daily will call in #[phone] with a refill recheck blood pressure within a couple of weeks to need the hydrochlorothiazide continue low-salt diet 2. Hyperglycemia obtain hemoglobin A1c 3. Dyslipidemia obtain CMP and lipid profile fasting . MIKE ANN JR, [facility] 2019-08-16 15:30:00 PatientIbis s consent to Mike Ann Jr., MD's use of Augmedix at today's visit. A D BARNES CH[facility] 2019-08-16 15:30:00 Subjective: Patient ID: Ibis Tay is a 64 y.o. female. Chief Complaint Patient presents with - Follow-up f/u from ER discharge. - Hypertension HPI The patient is a 64-year-old female presenting today for an ER follow-up. She was seen in the emergency department on 08/09/2019 for midsternal chest pain and shortness of breath. Patient stated that she was at home, trying to lay down and taking a nap. She stated when she woke up, her blood pressure was extremely elevated despite having taken her medication. Patient was concerned that she was not getting any better from her COPD exacerbation despite taking antibiotics and steroids. She felt very anxious about her breathing and chest pain. She was unsure if it was just her lungs that were causing the chest pain. There was no radiation. Her chest pain was constant, midsternal. She stated significant headache and requested narcotics. Her chest x-ray obtained in the emergency department revealed postoperative appearance to the left lung. Appearance is unchanged from prior. No new acute cardiopulmonary abnormality. The patient was given Duo-Neb 0.5/2.5 mg/ 3 mL nebulizer treatment in the ER. She was administered Levaquin 750 mg/150 mL, ondansetron 4 mg/2 mL, Dilaudid 1 mg, Solu-Medrol 125 mg, and sodium chloride 0.9 %. Patient presents for follow-up of hypertension. She continues on the medications listed below. She takes hydrochlorothiazide 25 mg 1 tablet once daily; however, she did not take its most recent refill from the pharmacy. She last took hydrochlorothiazide medication around 30 days ago. Today, her blood pressure was 210/80 from her left arm. She monitors her blood pressure at home and states her morning reading is around 169/80. Her rechecked blood pressure was 210/94 from her right arm and 196/90 from her left arm. She denies taking any decongestants at home. She is trying to follow a low-salt diet, walk 30 minutes 5 times weekly, and denies headaches chest pain, shortness of breath, and lower extremity swelling at present and does not need refills of their blood pressure medications. Review of Systems General: No weight gain or loss, no loss of appetite, no fever, no chills, no fatigue, no night sweats. Skin and lymphatics: No rashes, no skin discolorations, no easy bruising, no lymphadenopathy. Head: No headaches, no dizziness, no masses, no seizures. Eyes: No visual changes, no eye pain. Ears: No tinnitus, no vertigo, no hearing loss. Nose: No nosebleeds, no discharge, no sinus disease. Mouth and throat: Denies dental disease, no hoarseness, no throat pain. Respiratory: No cough, no shortness of breath, no sputum production. Cardiovascular: No chest pain, no orthopnea, no paroxysmal nocturnal dyspnea, or dyspnea on exertion, no claudication, no edema, no valvular disease. Gastrointestinal: No dysphagia, no abdominal pain, no nausea, no vomiting, no hematemesis, no diarrhea, no constipation, no melena, no hematochezia. Genitourinary: No dysuria, no frequency, no hesitancy, no hematuria, no discharge. Endocrine: Positive for dry mouth. No polyuria, no polydipsia, no skin or hair changes, no heat intolerance. Musculoskeletal: No joint pain or swelling, no arthritis, no myalgias. Neuropsychiatric: No weakness, no seizures, no memory changes, no depression. Neurologic: No unilateral or bilateral numbness, tingling or weakness, no difficulty with speech, no vision changes, no problems with balance, denies dizziness, denies headache. Objective: BP (!) 210/80 (BP Location: Left arm, Patient Position: Sitting) Pulse 82 Temp 35.9 C (96.6 F) (Temporal Artery (forehead)) Wt 60.7 kg (133 lb 12.8 oz) SpO2 97% BMI 24.47 kg/m Physical Exam Nursing note and vitals reviewed. Constitutional: Patient appears well-developed and well-nourished. No distress. Head: Normocephalic and atraumatic. Right Ear: External ear normal. No erythema. Bright tympanic membrane. Bony landmarks intact. Left Ear: External ear normal. No erythema. Bright tympanic membrane. Bony landmarks intact. Mouth/Throat: Patient has scattered curdy discharge across the mouth. Neck: No JVD present. No tracheal deviation present. No thyromegaly present. Cardiovascular: Normal rate, regular rhythm, normal heart sounds and intact distal pulses. Exam reveals no gallop and no friction rub. No murmur heard. Pulmonary/Chest: Effort normal. No respiratory distress. Patient has no wheezes. Patient has no rales. Patient exhibits no tenderness. Abdominal: Soft. Patient exhibits no distension and no mass. There is no tenderness to palpation. There is no rebound and no guarding. Musculoskeletal: Normal range of motion. Patient exhibits no edema and no tenderness. Skin: Skin is warm. No rash noted. Patient is not diaphoretic. No erythema. No pallor. Assessment/Plan: Problem List Items Addressed This Visit Essential hypertension Relevant Medications hydroCHLOROthiazide (HYDRODIURIL) 25 MG tablet lisinopril (PRINIVIL,ZESTRIL) 5 MG tablet Other Visit Diagnoses Thrush - Primary Relevant Medications nystatin (MYCOSTATIN) 100,000 unit/mL suspension 1. Essential hypertension The patient was given a refill of hydrochlorothiazide 25 mg 1 tablet once daily and lisinopril 5 mg 1 tablet once daily. Continue current medication therapy. Goal blood pressure 140/90 or better. Follow low salt diet as well as Dash Diet suggestions, aerobic exercise 30 minutes 5x weekly, keep weight close to ideal. - hydroCHLOROthiazide (HYDRODIURIL) 25 MG tablet; Take 1 tablet (25 mg total) by mouth once daily. Dispense: 90 tablet; Refill: 2 - lisinopril (PRINIVIL,ZESTRIL) 5 MG tablet; Take 1 tablet (5 mg total) by mouth once daily. Dispense: 90 tablet; Refill: 3 2. Thrush The patient was prescribed nystatin 5 mL units 4 times daily for 10 days. She was advised to swish and swallow it. - nystatin (MYCOSTATIN) 100,000 unit/mL suspension; Take 5 mL (500,000 Units total) by mouth 4 (four) times a day for 10 days. Swish and swallow Dispense: 200 mL; Refill: 0 The patient indicates understanding of these issues and agrees with the plan. I reviewed the patient's medical information and medical history. I have reviewed the past medical, family, and social history sections including the medications and allergies listed in the above medical record IMino am scribing for and in the presence of Mike Ann Jr., MD. .I have read and agree with the documentation that has been completed regarding this visit and attest, that it is an accurate record of both my words and actions during the visit. . MIKE ANN JR, CHI 2019-08-10 16:20:00 ED follow up phone c all placed to pt. She reports she is feeling better today. She states that she went to the ED mostly because her home blood pressure meter was reading very high (systolically 218, 284). She has been dealing with a COPD exacerbation for the last 2 weeks as well. Pt states that overall she just really didn't feel well. Pt states that with everything they did last night plus the antibiotics that she is on, she is feeling much better today. Reports her blood pressure at 140/80 today. Pt does mention that she had to call the squad because she didn't have transportation. Mentioned that pt gets free transportation from Medicaid. Pt states the last time she rode with them, the sprinkler truck driver was unprofessional to her and the other passenger. It sounds like she has not ridden with the transportation benefit since the changeover last January. I did provide her with the new name/phone number of [employer] and encouraged her to set up that benefit. Pt agreeable. Pt did set a follow up appt but it isn't for another 6 weeks. Pt reports between her and her they have too many appts in Aug. Encouraged pt to get transportation figured out and come in sooner. FAITH SANTANA CHI 2019-08-09 14:09:20 Attestation signed by Quang Grimm DO at 08/09/2019 8:09 PM Patient was seen independently by the mid-level provider eMERGENCY dEPARTMENT eNCOUnter CHIEF COMPLAINT/HPI Chief Complaint Patient presents with - Chest Pain recently dx with lung infection per squad, cp with cough and deep breathing Ibis Tay is a 64 y.o. female PMH COPD, lung cancer with prior lobectomy, chronic pain syndrome, degenerative disc disease, hypertension, GERD, anxiety, hyperlipidemia, PTSD who presents with midsternal chest pain and shortness of breath. Patient states that she was at home, tried to lay down and taking a nap. She states when she woke up her blood pressure was extremely elevated despite having taken her medication. Patient is concerned that she is not getting any better from her COPD exacerbation despite taking antibiotics and steroids. She feels very anxious about her breathing and chest pain. She is not sure if it is just her lungs that are causing her chest pain. There is no radiation, chest pain is constant, midsternal. She states significant headache,requesting narcotics for this. REVIEW OF SYSTEMS Review of Systems - General ROS: negative for - chills, fever or night sweats Ophthalmic ROS: negative for - decreased vision, eye pain or loss of vision ENT ROS: negative for - epistaxis, nasal congestion or sore throat Respiratory ROS: Positive for - cough, shortness of breath or wheezing Cardiovascular ROS: Positive for chest pain Gastrointestinal ROS: negative for - abdominal pain, constipation, diarrhea or nausea/vomiting, melena, hematochezia Genito-Urinary ROS: negative for - dysuria or urinary frequency/urgency Musculoskeletal ROS: negative for - joint pain or muscle pain Neurological ROS: negative for - confusion, dizziness positive headaches Dermatological ROS: negative for rash Psychological ROS: negative for - depression or suicidal ideation- Positive for anxiety *all systems reviewed and are otherwise negative+ PAST MEDICAL HISTORY Past Medical History: Diagnosis Date - Anxiety Takes Xanax - Arthritis - Breast mass 2013 rt axilla - Bronchitis - Bursitis Left hip - Cancer (HCC) 12 left lung cancer, scheduled for left upper lobectomy at [facility] with Dr. Moore - Cervical radiculopathy sees Dr. Cardenas, gets cervical pain injections every 3 months, last done in - COPD (chronic obstructive pulmonary disease) ([facility]) - DDD (degenerative disc disease) - Depression - Dermatological disorder 01/25 irratative dermatitis from insect b ite - Esophageal stricture dilated during upper endoscopy - Generalized anxiety disorder - GERD (gastroesophageal reflux disease) - H. pylori infection Hx of H pylori infection several months ago treated with medication, no current issues. - H/O pyloric stenosis - Hiatal hernia - HTN (hypertension) - Hypercholesteremia - Hyperlipidemia No current medications or issues. - OA (osteoarthritis) of knee - Palpitations with anxiety - Pneumonia 1994 resolved. - PONV (postoperative nausea and vomiting) - PTSD (post-traumatic stress disorder) son was murdered 8 years ago, followed by Dr. Milly Freire - Spinal stenosis cervical - Wears dentures full set - Wears glasses SURGICAL HISTORY Past Surgical History: Procedure Laterality Date - ESOPHAGEAL DILATION 2012 approx. done with upper endoscopy - KNEE ARTHROPLASTY Right 2010 - LUMBAR FUSION 1995 - LUNG LOBECTOMY Left 10/11/2017 Upper - CO TOTAL KNEE ARTHROPLASTY Right 05/28/2014 Procedure: REPLACEMENT TOTAL JOINT KNEE RIGHT / BETO ; Surgeon: Isaak Moncada MD; Location: [facility] OR; Service: Orthopedics - SPINE SURGERY lumbar fusion - TENDON RELEASE Right arm - TOTAL HIP ARTHROPLASTY Left 09/26/14 hip hem-iarthoplasty - TOTAL KNEE ARTHROPLASTY Left 11/23 - TUBAL LIGATION Bilateral - UPPER GASTROINTESTINAL ENDOSCOPY 2012 approx. diagnosed with H. Pylori and esophagus dilated. - UPPER GASTROINTESTINAL ENDOSCOPY CURRENT MEDICATIONS Current Facility-Administered Medications: - levoFLOXacin (LEVAQUIN) 750 mg/150 mL IVPB 750 mg, 750 mg, IntraVENous, Q24H, Kusum Mckeon, [employer]YST[employer], Stopped at 08/09/19 1897 Current Outpatient Medications: - alendronate (FOSAMAX) 70 MG tablet, Take on empty stomach once weekly sitting upright for full hour after taking with big glass of water. No other meds or food for 1 hour, Disp: 4 tablet, Rfl: 3 - ALPRAZolam (XANAX) 1 MG tablet, Take 0.5 tablets (0.5 mg total) by mouth 4 (four) times a day as needed for anxiety. for anxiety Max Daily Amount: 2 mg, Disp: 60 tablet, Rfl: 4 - ARIPiprazole (ABILIFY) 10 MG tablet, Take 1 tablet (10 mg total) by mouth once daily., Disp: 30 tablet, Rfl: 4 - atorvastatin (LIPITOR) 20 MG tablet, TAKE ONE TABLET BY MOUTH DAILY *PT NEEDS APPOINTMENT*, Disp: 15 tablet, Rfl: 0 - azithromycin (ZITHROMAX) 250 MG tablet, Take 2 tablets (500mg) by mouth on day one, then 1 tablet (250mg) by mouth daily on days 2 through 5., Disp: 6 tablet, Rfl: 0 - camphor-menthol (SARNA ANTI-ITCH) lotion, Apply topically as needed for itching. (Patient not taking: Reported on 07/27/2019 ), Disp: 222 mL, Rfl: 11 - cholecalciferol (VITAMIN D3) 5,000 unit capsule, TAKE ONE CAPSULE BY MOUTH DAILY, Disp: 30 capsule, Rfl: 4 - diaper,brief,adult,disposable Misc, 1 application by Miscellaneous route 2 (two) times a day., Disp: 96 each, Rfl: 5 - diclofenac (VOLTAREN) 75 MG EC tablet, Take 1 tablet (75 mg total) by mouth 2 (two) times a day. (Patient not taking: Reported on 07/27/2019 ), Disp: 60 tablet, Rfl: 0 - doxycycline (VIBRAMYCIN) 100 MG capsule, Take 1 capsule (100 mg total) by mouth 2 (two) times a day. (Patient not taking: Reported on 07/27/2019 ), Disp: 14 capsule, Rfl: 0 - escitalopram oxalate (LEXAPRO) 20 MG tablet, Take 1 tablet (20 mg total) by mouth once daily., Disp: 30 tablet, Rfl: 5 - fluticasone propionate (FLOVENT DISKUS) 250 mcg/actuation Disk with Device, INHALE ONE PUFF BY MOUTH TWICE A DAY, Disp: 60 each, Rfl: 11 - food supplemt, lactose-reduced (ENSURE) Liquid, Drink 2 bottles per day. Patient requests strawberry., Disp: 18510 mL, Rfl: PRN - guaiFENesin 200 mg tablet, TAKE THREE TABLETS BY MOUTH TWICE A DAY FOR 10 DAYS (Patient not taking: Reported on 08/07/2019), Disp: 60 tablet, Rfl: 0 - hydroCHLOROthiazide (HYDRODIURIL) 25 MG tablet, TAKE ONE TABLET BY MOUTH DAILY, Disp: 30 tablet, Rfl: 5 - HYDROcodone-acetaminophen (NORCO) 10-325 mg per tablet, Take 1 tablet by mouth every 6 (six) hours as needed for pain for up to 30 days. Max Daily Amount: 4 tablets, Disp: 90 tablet, Rfl: 0 - HYDROcodone-acetaminophen (NORCO) 7.5-325 mg tablet, Take 1 tablet by mouth 3 (three) times a day as needed for pain. To Last 30days. No early refills Max Daily Amount: 3 tablets (Patient not taking: Reported on 07/27/2019 ), Disp: 90 tablet, Rfl: 0 - HYDROcodone-acetaminophen (NORCO) 7.5-325 mg tablet, Take 1 tablet by mouth 3 (three) times a day as needed for pain. To last 30 days. No early refills Max Daily Amount: 3 tablets (Patient not taking: Reported on 07/27/2019 ), Disp: 90 tablet, Rfl: 0 - hydrOXYzine (ATARAX) 25 MG tablet, TAKE ONE TABLET BY MOUTH EVERY 8 HOURS NEEDED FOR ANXIETY, Disp: 60 tablet, Rfl: 3 - ipratropium-albuterol (DUO-NEB) 0.5-2.5 mg/3 mL nebulizer, Inhale 3 mL into the lungs 4 (four) times a day., Disp: 360 vial, Rfl: 3 - Lactobacillus acidoph-pectin (ACIDOPHILUS-PECTIN) 75 million cell -100 mg Capsule, Take 1 capsule by mouth 2 (two) times a day. (Patient not taking: Reported on 07/27/2019 ), Disp: 60 capsule, Rfl: 0 - miscellaneous medical [place] [facility] [place] hand thumb spica splint (Patient not taking: Reported on 07/27/2019 ), Disp: 1 each, Rfl: 0 - naloxone 2 mg/actuation [place], Non-Aerosol, 2 mg by Nasal route as needed. 1-2 daily PRN. Proceed to ER for evaluation immediately following use. (Patient not taking: Reported on 07/27/2019 ), Disp: 4 each, Rfl: 1 - nicotine (NICODERM CQ) 21 mg/24 hr patch, Place 1 patch onto the skin every 24 (twenty-four) hours. (Patient not taking: Reported on 07/27/2019 ), Disp: 28 patch, Rfl: 1 - omeprazole (PRILOSEC) 40 MG capsule, TAKE ONE CAPSULE BY MOUTH DAILY, Disp: 30 capsule, Rfl: 4 - polyethylene glycol (MIRALAX) 17 gram packet, Take 17 g by mouth once daily. (Patient not taking: Reported on 07/27/2019 ), Disp: 14 each, Rfl: 0 - potassium chloride (KLOR-CON) 10 MEQ CR tablet, TAKE TWO TABLETS BY MOUTH TWICE A DAY *PT NEEDS APPOINTMENT*, Disp: 120 tablet, Rfl: 0 - prazosin (MINIPRESS) 1 MG capsule, Take 3 capsules (3 mg total) by mouth daily every night., Disp: 90 capsule, Rfl: 4 - predniSONE (DELTASONE) 20 MG tablet, Take one pill twice daily am and noon for 5 days then one pill daily for two days then one half pill daily for 2 days (Patient not taking: Reported on 07/27/2019 ), Disp: 13 tablet, Rfl: 0 - predniSONE (DELTASONE) 20 MG tablet, Take one pill twice daily am and noon for 5 days then one pill daily for two days then one half pill daily for 2 days, Disp: 13 tablet, Rfl: 0 - PROAIR HFA 90 mcg/actuation inhaler, INHALE TWO PUFFS BY MOUTH FOUR TIMES A DAY, Disp: 8.5 each, Rfl: 11 - promethazine-dextromethorphan (PROMETHAZINE-DM) 6.25-15 mg/5 mL syrup, Take 5 mL by mouth 4 (four) times a day as needed for up to 7 days., Disp: 240 mL, Rfl: 0 - SENNALAX-S 8.6-50 mg, TAKE TWO TABLETS BY MOUTH TWICE A DAY (Patient not taking: Reported on 07/27/2019), Disp: 120 tablet, Rfl: 10 - tiZANidine (ZANAFLEX) 4 MG tablet, TAKE ONE TABLET BY MOUTH TWICE A DAY, Disp: 60 tablet, Rfl: 1 - underpads Pad, Use as needed for incontinence, Disp: 300 each, Rfl: 10 ALLERGIES Allergies Allergen Reactions - Penicillins Anaphylaxis - Gabapentin Other (See Comments) severe fatigue - Sulfa (Sulfonamide Antibiotics) Other (See Comments) Blisters inside and outside of mouth. - Wellbutrin [Bupropion Hcl] Other (See Comments) Body numbness and tingling FAMILY HISTORY Family History Problem Relation Age of Onset - Other Other Hx: Yes Dx: Diabetes Fam Mem: Family h/o - Drug abuse Other - Other Other Hx: Yes Dx: Hypertension Fam Mem: Mother - Drug abuse Other - Hypertension Mother - Heart disease Mother - Diabetes Mother - No Known Problem Father - Other Sister - Cancer Sister - Other Other Hx: Yes Dx: Heart disease Fam Mem: Mother - Diabetes Maternal Grandmother SOCIAL HISTORY Social History Socioeconomic History - Marital status: Spouse name: None - Number of children: None - Years of education: 14 - Highest education level: None Occupational History - None Social Needs - Financial resource strain: None - Food insecurity: Worry: None Inability: None - Transportation needs: Medical: None Non-medical: None Tobacco Use - Smoking status: Current Every Day Smoker Packs/day: 0.50 Years: 44.00 Pack years: 22.00 Types: Cigarettes - Smokeless tobacco: Current User Substance and Sexual Activity - Alcohol use: No - Drug use: No - Sexual activity: None Lifestyle - Physical activity: Days per week: None Minutes per session: None - Stress: None Relationships - Social connections: Talks on phone: None Gets together: None Attends denominational service: None Active member of club or organization: None Attends meetings of clubs or organizations: None Relationship status: None - Intimate partner violence: Fear of current or ex partner: None Emotionally abused: None Physically abused: None Forced sexual activity: None Other Topics Concern - None Social History Narrative - None PHYSICAL EXAM VITAL SIGNS: BP 136/74 (BP Location: Right arm, Patient Position: Sitting) Pulse 89 Temp 36.3 C (97.3 F) (Oral) Resp 16 Ht 5' 2 (1.575 m) Wt 60.3 kg (133 lb) SpO2 99% BMI 24.33 kg/m Physical Exam Constitutional: Patient is oriented to person, place, and time. Patient appears well-developed and well-nourished. HENT: Head: Normocephalic and atraumatic. Right Ear: No drainage. No foreign bodies. Left Ear: No drainage. No foreign bodies. Nose: No mucosal edema, rhinorrhea or nasal deformity. Mouth/Throat: Mucous membranes are normal. No oropharyngeal exudate, posterior oropharyngeal edema or posterior oropharyngeal erythema. Eyes: Conjunctivae and EOM are normal. Neck: Normal range of motion. No tracheal deviation present. Cardiovascular: Normal rate, regular rhythm and normal heart sounds. Exam reveals no gallop. No murmur heard. Pulmonary/Chest: Effort normal and breath sounds normal. No respiratory distress. Abdominal: Soft. Bowel sounds are normal. She exhibits no distension. There is no tenderness. There is no rebound and no guarding. Musculoskeletal: Normal range of motion. Neurological: Patient is alert and oriented to person, place, and time. Skin: Skin is warm, dry and intact. Psychiatric: Patient's mood appears anxious. EKG RADIOLOGY/PROCEDURES ED Imaging Results & Wet Read XR Chest 2 Views (Final result) Result time 08/09/19 14:44:17 Final result by Ricco Moctezuma MD (08/09/19 14:44:17) Impression: Postoperative appearance to the left lung. Appearance is unchanged from prior. No new acute cardiopulmonary abnormality. Narrative: 2 view chest radiograph REASON FOR EXAM: Cough Comparison: Chest radiograph June. DISCUSSION: PA and lateral views of the chest demonstrate postoperative changes to the left lung with hilar surgical clips and volume loss. There are endobronchial clips as well. There is no new focal consolidation, effusion or pneumothorax. Heart size is within normal limits. Osseous structures demonstrate spondylosis and scoliosis of the spine. LABS ED Lab Results Procedure Component Value Ref Range Date/Time Urinalysis with culture, if indicated [[id number]] (Abnormal) Collected: 08/09/19 1606 Order Status: Completed Specimen: Urine Updated: 08/09/19 1624 Color, UA Yellow Yellow Appearance Clear Clear Glucose, UA Negative Negative Bilirubin, UA Negative Negative Ketones, UA Negative Negative Specific [place], UA 1.010 <=1.030 Blood, UA Negative Negative pH, UA 7.5 4.5 - 8.0 Protein, UA Negative Negative Urobilinogen, UA 0.2 0.2 - 1.0 EU/dl Nitrite, UA Negative Negative Leukocyte Esterase Trace Negative RBC, UA Absent <=5 WBC, UA Absent <=5 Culture Ordered? Not Appl Blood culture x2 - now, then in 15 minutes [[id number]] Collected: 08/09/19 1500 Order Status: Sent Specimen: Blood Updated: 08/09/19 1747 Comprehensive metabolic panel [[id number]] (Abnormal) Collected: 08/09/19 1438 Order Status: Completed Specimen: Blood Updated: 08/09/19 1535 Glucose 156 70 - 100 mg/dl BUN 14 6 - 24 mg/dl Creatinine 0.74 0.50 - 1.10 mg/dl Sodium 142 135 - 145 mmol/L Potassium 3.9 3.7 - 5.1 mmol/L Chloride 109 96 - 110 mmol/L CO2 29.0 22.0 - 32.0 mmol/L Anion Gap 8 <=20 mmol/L Calcium 9.1 8.5 - 10.5 mg/dl Total Protein 7.2 6.0 - 8.4 gm/dl Albumin 3.6 3.5 - 5.0 gm/dl Globulin 3.6 2.0 - 4.4 gm/dl AST 18 10 - 40 u/l Alkaline Phosphatase 100 33 - 138 u/l Total Bilirubin 0.4 0.0 - 1.5 mg/dl ALT 22 12 - 78 u/l GFR MDRD Af Amer >90 >=90 mL/min/1.73 m2 GFR MDRD Non Af Amer 84 >=90 mL/min/1.73 m2 Lactic acid, venous [[id number]] Collected: 08/09/191437 Order Status: Completed Specimen: Blood Updated: 08/09/19 1537 Lactic Acid 1.5 0.4 - 2.0 mmol/L CBC auto differential [[id number]] (Abnormal) Collected: 08/09/191437 Order Status: Completed Specimen: Blood Updated: 08/09/19 1510 WBC 5.0 4.0 - 12.0 k/ul RBC 5.01 3.50 - 5.30 m/ul HEMOGLOBIN 14.2 12.0 - 16.0 gm/dl Hematocrit 42.9 36.0 - 48.0 % MCV 86 80 - 100 fl MCH 28.3 26.0 - 34.0 pg MCHC 33.1 30.0 - 37.0 gm/dl RDW 13.0 11.5 - 15.0 % Platelet Count 260 140 - 440 k/ul MPV 10.2 8.5 - 12.5 fl Neutrophils % 88 % Immature Granulocytes % 0 % Lymphs % 11 % Monocytes % 1 % Eosinophils Percent 0 % Neutrophils Abs 4.4 1.5 - 8.0 k/ul Immature Granulocytes Abs 0.0 0.0 - 0.1 k/ul Lymphs Abs 0.6 1.0 - 4.5 k/ul Monocytes Abs 0.0 0.1 - 1.1 k/ul Eosinophils Absolute 0.0 0.0 - 0.4 k/ul Protime-INR - STAT [[id number]] Collected: 08/09/191437 Order Status: Completed Specimen: Blood Updated: 08/09/19 1531 Protime 10.7 9.6 - 11.9 sec INR 1.0 0.9 - 1.1 Activated partial thromboplastin time [[id number]] Collected: 08/09/191437 Order Status: Completed Specimen: Blood Updated: 08/09/19 1531 aPTT 27.8 22.8 - 33.9 sec Blood culture x2 - now, then in 15 minutes [[id number]] Collected: 08/09/191437 Order Status: Sent Specimen: Blood Updated: 08/09/19 1746 Troponin I [[id number]] Collected: 08/09/19 1438 Order Status: Completed Specimen: Blood Updated: 08/09/19 1615 Troponin I <0.04 <=0.04 ng/mL Results from last 7 days Lab Units 08/09/19 1438 INR 1.0 Results from last 7 days Lab Units 08/09/19 1438 SODIUM mmol/L 142 POTASSIUM mmol/L 3.9 CHLORIDE mmol/L 109 GLUCOSE mg/dl 156* CALCIUM mg/dl 9.1 PROTEIN TOTAL gm/dl 7.2 ALBUMIN gm/dl 3.6 BUN mg/dl 14 TROPONIN I ng/mL <0.04 GLOBULIN gm/dl 3.6 ANION GAP2 mmol/L 8 CO2 mmol/L 29.0 CREAT mg/dl 0.74 BILIRUBIN TOTAL mg/dl 0.4 AST u/l 18 ALT u/l 22 Results from last 7 days Lab Units 08/09/19 1438 HEMOGLOBIN gm/dl 14.2 HEMATOCRIT % 42.9 RBC m/ul 5.01 WBC k/ul 5.0 MCV fl 86 MCH pg 28.3 MCHC gm/dl 33.1 PLATELETS k/ul 260 RDW % 13.0 ED COURSE & MEDICAL DECISION MAKING Pertinent Labs & Imaging studies reviewed. (See chart for details) Patient presented with headache which she has had ongoing issues with. Patient declined any imaging stating I will be had that done. She requested IV narcotics multiple times. She has been taking narcotics for pain at home. Additionally she was concerned that her COPD exacerbation was worsening. There is no evidence of pneumonia and her oxygenation is adequate on room air. I do not suspect any acute emergent condition. I did discuss her case with her primary care Dr. Ann who stated that patient could be seen tomorrow, I do not feel admission is appropriate at this time. She will be discharged home in stable condition. Dr. Ann and I discussed changing her antibiotics however shehas had multiple intolerances to other antibiotics so we will keep her on her current regimen. Vitals: 08/09/19 1600 08/09/19 1630 08/09/19 1715 08/09/19 1753 BP: 137/72 147/68 136/74 BP Location: Right arm Patient Position: Sitting Pulse: 88 89 89 Resp: (!) 45 20 20 16 Temp: 36.3 C (97.3 F) TempSrc: Oral SpO2: 94% 99% 93% 99% Weight: Height: DISPOSITION: Discharge [1] 08/09/2019 5:07 PM PATIENT REFERRED TO: Mike Ann Jr., MD [address] [facility] [address] [place] [id number] Follow up tommorow DISCHARGE MEDICATIONS: Discharge Medication List as of 08/09/2019 5:07 PM DIAGNOSIS: Problem List Items Addressed This Visit COPD exacerbation (HCC) Relevant Medications ipratropium-albuterol (DUO-NEB) 0.5-2.5 mg/3 mL nebulizer solution 3 mL (Completed) Other Visit Diagnoses Nonintractable headache, unspecified chronicity pattern, unspecified headache type - Primary *This note was compiled in part using Pegg'd voice recognition technology. The note may contain topographical, grammatical, and voice recognition errors* Kusum Mckeon, MITALI 08/09/19 1837 Quang Grimm DO 08/09/192008 KUSUM MCKEON [facility] 2019-08-07 10:15:00 Patient, Ibis monica s consent to Mike Ann Jr., MD's use of Augmedix at today's visit. A D BARNES [facility] 2019-08-07 10:15:00 Subjective: Patient ID: Ibis Tay is a 64 y.o. female. Chief Complaint Patient presents with - Shortness of Breath - Nausea - Headache - URI HPI The patient is a 64-year-old female, accompanied by her , presenting to the clinic for flu-like symptoms onset 3-4 days ago. She reports productive cough and shortness of breath. The patient also reports sore throat. Additionally, she also has rhinorrhea and nasal congestion. She has body aches, fatigue, and headaches. She has not had any episode of emesis; however, she does feel nauseous. The patient is a smoker; however, she states that she does not smoke excessively. The patient uses ipratropium-albuterol 0.5-2.5 mg/3 mL nebulizer at home; however, she states that it does not function properly. The patient was started on doxycycline and prednisone in the past for bronchitis. She tried Tessalon Perles for cough. Patient inquires if she could receive a Toradol shot for headaches today. Patient complains of significant dizziness lately. She was sleeping in the clinic prior to this visit. Her orthostatic blood pressure was noted normal in the office today. Review of Systems General: Positive for fatigue and body aches. No weight gain or loss, no loss of appetite, no fever, no chills, no night sweats. Skin and lymphatics: No rashes, no skin discolorations, no easy bruising, no lymphadenopathy. Head: No headaches, positive for dizziness, no masses, no seizures. Eyes: No visual changes, no eye pain. Ears: No tinnitus, no vertigo, no hearing loss. Nose: Positive for rhinorrhea and nasal congestion. Mouth and throat: Positive for sore throat. Denies dental disease, no hoarseness. Respiratory: Positive for productive cough and shortness of breath. No sputum production. Cardiovascular: No chest pain, no orthopnea, no paroxysmal nocturnal dyspnea, or dyspnea on exertion, no claudication, no edema, no valvular disease. Gastrointestinal: Positive for nausea. No dysphagia, no abdominal pain, no vomiting, no hematemesis, no diarrhea, no constipation, no melena, no hematochezia. Genitourinary: No dysuria, no frequency, no hesitancy, no hematuria, no discharge. Musculoskeletal: No joint pain or swelling, no arthritis, no myalgias. Neuropsychiatric: No weakness, no seizures, no memory changes, no depression. Neurologic: No unilateral or bilateral numbness, tingling or weakness, no difficulty with speech, no vision changes, no problems with balance, positive for dizziness, denies headache. Objective: Pulse 92 Temp 36.3 C (97.4 F) (Temporal Artery (forehead)) SpO2 99% Physical Exam Nursing note and vitals reviewed. Constitutional: Patient appears well-developed and well-nourished. No distress. Head: Normocephalic and atraumatic. Right Ear: External ear normal. No erythema. Bright tympanic membrane. Bony landmarks intact. Left Ear: External ear normal. No erythema. Bright tympanic membrane. Bony landmarks intact. Mouth/Throat: No oropharyngeal exudate. Eyes: Pupils are equal, round, and reactive to light. Right eye exhibits no discharge. Left eye exhibits no discharge. No scleral icterus. Neck: No JVD present. No tracheal deviation present. No thyromegaly present. Cardiovascular: Normal rate, regular rhythm, normal heart sounds and intact distal pulses. Exam reveals no gallop and no friction rub. No murmur heard. Pulmonary/Chest: Patient has coarse breath sounds, bilateral expiratory wheezes, and clear crackles. Abdominal: Soft. Patient exhibits no distension and no mass. There is no tenderness to palpation. There is no rebound and no guarding. Musculoskeletal: Normal range of motion. Patient exhibits no edema and no tenderness. Lymphadenopathy: Patient has no cervical, supraclavicular,axillary, or inguinal adenopathy. Neurological: Patient is alert and oriented to person, place, and time. Normal gait and balance. Strength intact in upper and lower extremities. Cranial nerves 2-12 intact. Skin: Skin is warm. No rash noted. Patient is not diaphoretic. No erythema. No pallor. Assessment/Plan: Problem List Items Addressed This Visit COPD exacerbation (HCC) - Primary Relevant Medications azithromycin (ZITHROMAX) 250 MG tablet predniSONE (DELTASONE) 20 MG tablet promethazine-dextromethorphan (PROMETHAZINE-DM) 6.25-15 mg/5 mL syrup Other Visit Diagnoses Nonintractable headache, unspecified chronicity pattern, unspecified headache type Relevant Medications ketorolac (TORADOL) injection 60 mg (Completed) 1. COPD exacerbation (HCC) Obtained POCT Nidia Influenza A+B screen in the office today, which was negative. Patient was prescribed Zithromax 250 mg 2 tablets on day 1, then 1 tablet from days 2 through 5. She was prescribed prednisone 20 mg one pill twice daily am and noon for 5 days then one pill daily for two days then one half pill daily for 2 days. Patient was prescribed Promethazine 6.25-15 mg/5 mL syrup 5 mL four times a day up to 7 days as needed for cough. Patient was informed that we will order a chest x-ray in case her symptoms do not resolve with conservative care. Patient was advised to notify us in case her symptoms do not improve by Tuesday, i.e. 08/10/2019. Patient was encouraged to stop smoking. Follow up in case of persistence or worsening of symptoms. - azithromycin (ZITHROMAX) 250 MG tablet; Take 2 tablets (500mg) by mouth on day one, then 1 tablet (250mg) by mouth daily on days 2 through 5. Dispense: 6 tablet; Refill: 0 - predniSONE (DELTASONE) 20 MG tablet; Take one pill twice daily am and noon for 5 days then one pill daily for two days then one half pill daily for 2 days Dispense: 13 tablet; Refill: 0 - promethazine-dextromethorphan (PROMETHAZINE-DM) 6.25-15 mg/5 mL syrup; Take 5 mL by mouth 4 (four) times a day as needed for up to 7 days. Dispense: 240 mL; Refill: 0 2. Nonintractable headache, unspecified chronicity pattern, unspecified headache type The patient was administered Toradol 60 mg injection in the office today. - ketorolac (TORADOL) injection 60 mg The patient indicates understanding of these issues and agrees with the plan. I reviewed the patient's medical information and medical history. I have reviewed the past medical, family, and social history sections including the medications and allergies listed in the above medical record IYESSICA, am scribing for and in the presence of Mike Ann Jr., MD. . I have read and agree with the documentation that has been completed regarding this visit and attest, that it is an accurate record of both my words and actions during the visit. . MIKE ANN JR, [facility] 2019-08-02 10:00:00 OFFICE VISIT CHIEF COMPLAINT Back Pain and Follow-up SUBJECTIVE Ibis Tay is a 64 y.o. female who presents for follow-up of Back Pain and Follow-up with diagnosis of: 1. cervical stenosis with radiculopathy. 2. 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 Headaches With last encounter we resumed chronic opiate therapy with hydrocodone 10/325 1 tid. She continues with pain that is worsening in her neck radaiting to her UE bilaterally. She notes that her nlow back pain is stable. However, she has been having increasing neck pain with radiating arm pain that is significant limiting her function and mobility. She reports that her last cervical WAQAR d had excellent relief . Patient currently is on Hydrocodone 10/325 1 tid states the medication is not effective giving the average pain rating of: 7/10 and feels that the pain is not manageable. New or changing adverse side effects:none New or changing pain complaints:none Other concerns: none ROS Constitutional: denies dizziness, sedation, or somnolence Psychological: denies altered mentation or euphoria GI: deniesconstipation or diarrhea Musc: denies acute change in numbness, weakness, or tingling of extemities MEDICATIONS Current Outpatient Medications Medication Sig Dispense Refill - alendronate (FOSAMAX) 70 MG tablet Take on empty stomach once weekly sitting upright for full hour after taking with big glass of water. No other meds or food for 1 hour 4 tablet 3 - ALPRAZolam (XANAX) 1 MG tablet Take 0.5 tablets (0.5 mg total) by mouth 4 (four) times a day as needed for anxiety. for anxiety Max Daily Amount: 2 mg 60 tablet 4 - ARIPiprazole (ABILIFY) 10 MG tablet Take 1 tablet (10 mg total) by mouth once daily. 30 tablet 4 - atorvastatin (LIPITOR) 20 MG tablet TAKE ONE TABLET BY MOUTH DAILY *PT NEEDS APPOINTMENT* 15 tablet 0 - camphor-menthol (SARNA ANTI-ITCH) lotion Apply topically as needed for itching. (Patient not taking: Reported on 07/27/2019 ) 222 mL 11 - cholecalciferol (VITAMIN D3) 5,000 unit capsule TAKE ONE CAPSULE BY MOUTH DAILY 30 capsule 4 - diaper,brief,adult,disposable Misc 1 application by Miscellaneous route 2 (two) times a day. 96 each 5 - diclofenac (VOLTAREN) 75 MG EC tablet Take 1 tablet (75 mg total) by mouth 2 (two) times a day. (Patient not taking: Reported on 07/27/2019 ) 60 tablet 0 - doxycycline (VIBRAMYCIN) 100 MG capsule Take 1 capsule (100 mg total) by mouth 2 (two) times a day. (Patient not taking: Reported on 07/27/2019 ) 14 capsule 0 - escitalopram oxalate (LEXAPRO) 20 MG tablet Take 1 tablet (20 mg total) by mouth once daily. 30 tablet 5 - fluticasone propionate (FLOVENT DISKUS) 250 mcg/actuation Disk with Device INHALE ONE PUFF BY MOUTH TWICE A DAY 60 each 11 - food supplemt, lactose-reduced (ENSURE) Liquid Drink 2 bottles per day. Patient requests strawberry. [id number] mL PRN - guaiFENesin 200 mg tablet TAKE THREE TABLETS BY MOUTH TWICE A DAY FOR 10 DAYS (Patient not taking: Reported on 07/27/2019) 60 tablet 0 - hydroCHLOROthiazide (HYDRODIURIL) 25 MG tablet TAKE ONE TABLET BY MOUTH DAILY 30 tablet 5 - HYDROcodone-acetaminophen (NORCO) 10-325 mg per tablet Take 1 tablet by mouth every 6 (six) hours as needed for pain for up to 30 days. Max Daily Amount: 4 tablets 90 tablet 0 - HYDROcodone-acetaminophen (NORCO) 7.5-325 mg tablet Take 1 tablet by mouth 3 (three) times a day as needed for pain. To Last 30days. No early refills Max Daily Amount: 3 tablets (Patient not taking: Reported on 07/27/2019 ) 90 tablet 0 - HYDROcodone-acetaminophen (NORCO) 7.5-325 mg tablet Take 1 tablet by mouth 3 (three) times a day as needed for pain. To last 30 days. No early refills Max Daily Amount: 3 tablets (Patient not taking: Reported on 07/27/2019 ) 90 tablet 0 - hydrOXYzine (ATARAX) 25 MG tablet TAKE ONE TABLET BY MOUTH EVERY 8 HOURS NEEDED FOR ANXIETY 60 tablet 3 - ipratropium-albuterol (DUO-NEB) 0.5-2.5 mg/3 mL nebulizer Inhale 3 mL into the lungs 4 (four) times a day. 360 vial 3 - Lactobacillus acidoph-pectin (ACIDOPHILUS-PECTIN) 75 million cell -100 mg Capsule Take 1 capsule by mouth 2 (two) times a day. (Patient not taking: Reported on 07/27/2019 ) 60 capsule 0 - miscellaneous medical supply Misc Use right hand thumb spica splint (Patient not taking: Reported on 07/27/2019 ) 1 each 0 - naloxone 2 mg/actuation [place], Non-Aerosol 2 mg by Nasal route as needed. 1-2 daily PRN. Proceed to ER for evaluation immediately following use. (Patient not taking: Reported on 07/27/2019 ) 4 each 1 - nicotine (NICODERM CQ) 21 mg/[address] 1 patch onto the skin every 24 (twenty-four) hours. (Patient not taking: Reported on 07/27/2019 ) 28 patch 1 - omeprazole (PRILOSEC) 40 MG capsule TAKE ONE CAPSULE BY MOUTH DAILY 30 capsule 4 - polyethylene glycol (MIRALAX) 17 gram packet Take 17 g by mouth once daily. (Patient not taking: Reported on 07/27/2019 ) 14 each 0 - potassium chloride (KLOR-CON) 10 MEQ CR tablet TAKE TWO TABLETS BY MOUTH TWICE A DAY *PT NEEDS APPOINTMENT* 120 tablet 0 - prazosin (MINIPRESS) 1 MG capsule Take 3 capsules (3 mg total) by mouth daily every night. 90 capsule 4 - predniSONE (DELTASONE) 20 MG tablet Take one pill twice daily am and noon for 5 days then one pill daily for two days then one half pill daily for 2 days (Patient not taking: Reported on 07/27/2019 ) 13 tablet 0 - PROAIR HFA 90 mcg/actuation inhaler INHALE TWO PUFFS BY MOUTH FOUR TIMES A DAY 8.5 each 11 - SENNALAX-S 8.6-50 mg TAKE TWO TABLETS BY MOUTH TWICE A DAY (Patient not taking: Reported on 07/27/2019) 120 tablet 10 - tiZANidine (ZANAFLEX) 4 MG tablet TAKE ONE TABLET BY MOUTH TWICE A DAY 60 tablet 1 - underpads Pad Use as needed for incontinence 300 each 10 No current facility-administered medications for this visit. ALLERGIES Allergies Allergen Reactions - Penicillins Anaphylaxis - Gabapentin Other (See Comments) severe fatigue - Sulfa (Sulfonamide Antibiotics) Other (See Comments) Blisters inside and outside of mouth. - Wellbutrin [Bupropion Hcl] Other (See Comments) Body numbness and tingling PHYSICAL EXAM Vital Signs: BP (!) 185/97 (BP Location: Left arm) Pulse 93 Resp 14 Wt 62.1 kg (137 lb) BMI 25.06 kg/m Constitutional: Well nourished, well groomed, NAD. CARDIAC: Regular Rate LUNGS: Breathing nonlabored, no wheezing Neurologic: Alert & oriented x 3, normal gait, no focal deficits noted. Psychiatric: Affect normal, judgment normal, mood normal. Other Affected BA/OS: Neck pain with extension, pain radiating To LUE with parasthesias. ASSESSMENT AND PLAN Problem List Items Addressed This Visit None Visit Diagnoses Failed back syndrome Relevant Medications HYDROcodone-acetaminophen (NORCO) 10-325 mg per tablet 2. LEFT Hip fracture 3. Low back pain Requested Prescriptions Signed Prescriptions Disp Refills - HYDROcodone-acetaminophen (NORCO) 10-325 mg per tablet 90 tablet 0 Sig: Take 1 tablet by mouth every 6 (six) hours as needed for pain for up to 30 days. Max Daily Amount: 4 tablets PLAN: 1. cervical stenosis with radiculopathy. Recent cervical WAQAR. She notes >50% improvement in her pain with improved mobility and activity tolerane 2. Bilateral Knee pain R>>L: She has had prior knee replacement surgery but is having severe knee pain on the right. We proceeded with genicular nerve block and she noted 80% relief of her knee pain. She notes this has persisted for 1week. She is not sure if insurance will authorize the rhizotomy but we will resubmit it given her significant improvement. In the interim I will increase her hydrocodone dosing to 7.5/325 tid prn . We discussed risk of chronic opaite tehrapy combined with benzodiazepine use. She states that Dr. Lemos has been weaning her xanax down. I discussed with her I will continue chronic opaite therapy provided she continue weaning off the xanax, 3. Lumbar spondylosis: Recent Xray show an 8mm spondylollisthesis of L4 on L5 but I am unsure if this is stable or not. I will obtain completion XRAY with flex/extension views./ 4. Chronic Pain with chronic opiate therapy: The risks/benefits of chronic opiate therapy was discussed with patient including failure of therapy, psychological addiction, physiological dependence, and risk withdrawal syndrome. Warning symptoms of potential opiate overuse/overdose were discussed including sedation, somnolence, and altered mentation were reviewed and I counseled patient these symptoms can occur even when patient have been on a stable dose and also can happen despite following physicians instructions. Alternative therapies were discussed including: non-opiate medications, interventional pain procedures, and Cognitive Behavioral Therapy. After discussing these alternatives with the patient, the patient has opted to decline these alternatives at this time. Patient has tried and failed more conservative measures and were either ineffective or intolerant. In my medical opinion non-opiate therapy is not appropriate to address the patient's medical condition at this time and will continue chronic opiate therapy after having addressed efficacy, adverse side effects, and safety of therapy with the patient. Patient verbally agrees. CLINIC TRANSITION PLAN: I had a detailed conversation with patient that I will be leaving [facility] effective Jul. I discussed with him that I will be starting at [facility] on Aug. As an alternative I recommended he may follow with Dr. Sood who is my partner in [facility] at [place]. Patient notes that they would like to continue care with me at [facility]. To facilitate this I will provide 2 serial prescription and asked the patient to reach out to [facility] to verify insurance coverage and schedule a follow-up appointment with me at [facility]. He will run out of medications on Aug and will need a [employer] f/u appt prior to that date. However if his insurance is not accepted then he may contact Dr. Sood's office or his PCP directly for alternatives The patient indicates understanding of these issues and agrees with the plan. I reviewed the patient's medical information and medical history. I have reviewed the past medical, family, and social history sections including the medications and allergies listed in the above medical record. Electronically signed by: Isaías Cardenas, 08/02/2019 5:45 PM ISAÍAS CARDENAS [facility] 2019-07-27 16:43:02 Patient Name: Ibis Tay Date of : 1955 Date of Evaluation: 07/27/2019 Provider: Jim Scott MD Chief Complaint Chief Complaint Patient presents with - Fall Left ankle pain due to fall that occured a couple hours ago. History of Present Illness 64-year-old female history of hypertension, who presents concerns of ankle pain. Ankle pain left ankle, occurred after attempting to catch herself and prevent a fall when she almost tripped over her grandson. Denies actual fall. Pain in left ankle, lateral malleolus, dorsum of foot. Denies numbness, weakness, inability bear weight. History- Medical/Surgical/Family/Social Past Medical History: Diagnosis Date - Anxiety Takes Xanax - Arthritis - Breast mass 2013 rt axilla - Bronchitis - Bursitis Left hip - Cancer (HCC) 12 left lung cancer, scheduled for left upper lobectomy at [facility] with Dr. Moore - Cervical radiculopathy sees Dr. Cardenas, gets cervical pain injections every 3 months, last done in 12-2017 - COPD (chronic obstructive pulmonary disease) ([facility]) - DDD (degenerative disc disease) - Depression - Dermatological disorder 01/25 irratative dermatitis from insect b ite - Esophageal stricture dilated during upper endoscopy - Generalized anxiety disorder - GERD (gastroesophageal reflux disease) - H. pylori infection Hx of H pylori infection several months ago treated with medication, no current issues. - H/O pyloric stenosis - Hiatal hernia - HTN (hypertension) - Hypercholesteremia - Hyperlipidemia No current medications or issues. - OA (osteoarthritis) of knee - Palpitations with anxiety - Pneumonia 1994 resolved. - PONV (postoperative nausea and vomiting) - PTSD (post-traumatic stress disorder) son was murdered 8 years ago, followed by Dr. Milly Freire - Spinal stenosis cervical - Wears dentures full set - Wears glasses Past Surgical History: Procedure Laterality Date - EGD W BALLOON DILATATION AND BIOPSY PANEL N/A 03/05/2014 Performed by David Sanchez MD at [facility] GI - ESOPHAGEAL DILATION 2012 approx. done with upper endoscopy - KNEE ARTHROPLASTY Right 2010 - LEFT HIP KRISTAL-ARTHROPLASTY Left 09/27/2014 Performed by Isaak Moncada MD at [facility] OR - LEFT UPPER LOBECTOMY / LYMPH NODE DISSECTION Left 10/11/2017 Performed by Angy Moore MD at [facility] CVOR - LUMBAR FUSION 1995 - LUNG LOBECTOMY Left 10/11/2017 Upper - REPAIR / CONSTRUCTION RIGHT THUMB ULNAR COLATERAL LIGAMENT Right 04/05/2018 Performed by Amina Bowman MD at [facility] OR - REPLACEMENT TOTAL JOINT KNEE RIGHT / BETO Right 05/28/2014 Performed by Isaak Moncada MD at [facility] OR - SPINE SURGERY lumbar fusion - TENDON RELEASE Right arm - TOTAL HIP ARTHROPLASTY Left 09/26/14 hip hem-iarthoplasty - TOTAL KNEE ARTHROPLASTY Left 11/23 - TUBAL LIGATION Bilateral - UPPER GASTROINTESTINAL ENDOSCOPY 2012 approx. diagnosed with H. Pylori and esophagus dilated. - UPPER GASTROINTESTINAL ENDOSCOPY Family History Problem Relation Age of Onset - Other Other Hx: Yes Dx: Diabetes Fam Mem: Family h/o - Drug abuse Other - Other Other Hx: Yes Dx: Hypertension Fam Mem: Mother - Drug abuse Other - Hypertension Mother - Heart disease Mother - Diabetes Mother - No Known Problem Father - Other Sister - Cancer Sister - Other Other Hx: Yes Dx: Heart disease Fam Mem: Mother - Diabetes Maternal Grandmother Social History Socioeconomic History - Marital status: Spouse name: Not on file - Number of children: Not on file - Years of education: 14 - Highest education level: Not on file Occupational History - Not on file Social Needs - Financial resource strain: Not on file - Food insecurity: Worry: Not on file Inability: Not on file - Transportation needs: Medical: Not on file Non-medical: Not on file Tobacco Use - Smoking status: Current Every Day Smoker Packs/day: 0.50 Years: 44.00 Pack years: 22.00 Types: Cigarettes - Smokeless tobacco: Current User Substance and Sexual Activity - Alcohol use: No - Drug use: No - Sexual activity: Not on file Lifestyle - Physical activity: Days per week: Not on file Minutes per session: Not on file - Stress: Not on file Relationships - Social connections: Talks on phone: Not on file Gets together: Not on file Attends denominational service: Not on file Active member of club or organization: Not on file Attends meetings of clubs or organizations: Not on file Relationship status: Not on file - Intimate partner violence: Fear of current or ex partner: Not on file Emotionally abused: Not on file Physically abused: Not on file Forced sexual activity: Not on file Other Topics Concern - Not on file Social History Narrative - Not on file Home Medications Prior to Admission medications Medication Sig Start Date End Date Taking? Authorizing Provider alendronate (FOSAMAX) 70 MG tablet Take on empty stomach once weekly sitting upright for full hour after taking with big glass of water. No other meds or food for 1 hour 04/20/19 Yes Mike Ann Jr., MD ALPRAZolam (XANAX) 1 MG tablet Take 0.5 tablets (0.5 mg total) by mouth 4 (four) times a day as needed for anxiety. for anxiety Max Daily Amount: 2 mg 04/12/19 Yes Parth Lemos MD ARIPiprazole (ABILIFY) 10 MG tablet Take 1 tablet (10 mg total) by mouth once daily. 04/10/19 Yes Parth Lemos MD atorvastatin (LIPITOR) 20 MG tablet TAKE ONE TABLET BY MOUTH DAILY *PT NEEDS APPOINTMENT* 06/13/19 Yes Mike Ann Jr., MD cholecalciferol (VITAMIN D3) 5,000 unit capsule TAKE ONE CAPSULE BY MOUTH DAILY 07/16/19 Yes Mike Ann Jr., MD diaper,brief,adult,disposable Misc 1 application by Miscellaneous route 2 (two) times a day. 12/01/15 Yes Mike Ann Jr., MD escitalopram oxalate (LEXAPRO) 20 MG tablet Take 1 tablet (20 mg total) by mouth once daily. 04/10/19 Yes Parth Lemos MD fluticasone propionate (FLOVENT DISKUS) 250 mcg/actuation Disk with Device INHALE ONE PUFF BY MOUTH TWICE A DAY 03/15/19 Yes Mike Ann Jr., MD food supplemt, lactose-reduced (ENSURE) Liquid Drink 2 bottles per day. Patient requests strawberry. 11/19/16 Yes Mike Ann Jr., MD hydroCHLOROthiazide (HYDRODIURIL) 25 MG tablet TAKE ONE TABLET BY MOUTH DAILY 04/13/19 Yes Mike Ann Jr., MD HYDROcodone-acetaminophen (NORCO) 10-325 mg per tablet Take 1 tablet by mouth every 6 (six) hours as needed for pain for up to 30 days. Max Daily Amount: 4 tablets 07/05/19 08/04/19 Yes Isaías Cardenas MD hydrOXYzine (ATARAX) 25 MG tablet TAKE ONE TABLET BY MOUTH EVERY 8 HOURS NEEDED FOR ANXIETY 01/11/19 Yes Parth Lemos MD ipratropium-albuterol (DUO-NEB) 0.5-2.5 mg/3 mL nebulizer Inhale 3 mL into the lungs 4 (four) times a day. 08/17/17 Yes Mike Ann Jr., MD omeprazole (PRILOSEC) 40 MG capsule TAKE ONE CAPSULE BY MOUTH DAILY 07/16/19 Yes Mike Ann Jr., MD potassium chloride (KLOR-CON) 10 MEQ CR tablet TAKE TWO TABLETS BY MOUTH TWICE A DAY *PT NEEDS APPOINTMENT* 07/16/19 Yes Mike Ann Jr., MD prazosin (MINIPRESS) 1 MG capsule Take 3 capsules (3 mg total) by mouth daily every night. 04/10/19 Yes Parth Lemos MD PROAIR HFA 90 mcg/actuation inhaler INHALE TWO PUFFS BY MOUTH FOUR TIMES A DAY 03/15/19 Yes Mike Ann Jr., MD tiZANidine (ZANAFLEX) 4 MG tablet TAKE ONE TABLET BY MOUTH TWICE A DAY 07/16/19 Yes Isaías Cardenas MD underpads Pad Use as needed for incontinence 04/30/17 Yes Mike Ann Jr., MD camphor-menthol (SARNA ANTI-ITCH) lotion Apply topically as needed for itching. Patient not taking: Reported on 07/27/2019 05/19/18 Mike Ann Jr., MD diclofenac (VOLTAREN) 75 MG EC tablet Take 1 tablet (75 mg total) by mouth 2 (two) times a day. Patient not taking: Reported on 07/27/2019 02/27/19 Mike Ann Jr., MD doxycycline (VIBRAMYCIN) 100 MG capsule Take 1 capsule (100 mg total) by mouth 2 (two) times a day. Patient not taking: Reported on 07/27/2019 07/13/19 Moe Vargas DO guaiFENesin 200 mg tablet TAKE THREE TABLETS BY MOUTH TWICE A DAY FOR 10 DAYS Patient not taking: Reported on 07/27/2019 07/07/17 Mike Ann Jr., MD HYDROcodone-acetaminophen (NORCO) 7.5-325 mg tablet Take 1 tablet by mouth 3 (three) times a day as needed for pain. To Last 30days. No early refills Max Daily Amount: 3 tablets Patient not taking: Reported on 07/27/2019 05/21/19 Isaías Cardenas MD HYDROcodone-acetaminophen (NORCO) 7.5-325 mg tablet Take 1 tablet by mouth 3 (three) times a day as needed for pain. To last 30 days. No early refills Max Daily Amount: 3 tablets Patient not taking: Reported on 07/27/2019 06/20/19 Isaías Cardenas MD Lactobacillus acidoph-pectin (ACIDOPHILUS-PECTIN) 75 million cell -100 mg Capsule Take 1 capsule by mouth 2 (two) times a day. Patient not taking: Reported on 07/27/2019 09/13/17 Mike Ann Jr., MD miscellaneous medical supply Misc Use right hand thumb spica splint Patient not taking: Reported on 07/27/2019 03/16/18 Mike Ann Jr., MD naloxone 2 mg/actuation [place], Non-Aerosol 2 mg by Nasal route as needed. 1-2 daily PRN. Proceed to ER for evaluation immediately following use. Patient not taking: Reported on 07/27/2019 05/16/18 Isaías Cardenas MD nicotine (NICODERM CQ) 21 mg/[address] 1 patch onto the skin every 24 (twenty-four) hours. Patient not taking: Reported on 07/27/2019 04/11/18 Mike Ann Jr., MD polyethylene glycol (MIRALAX) 17 gram packet Take 17 g by mouth once daily. Patient not taking: Reported on 07/27/2019 10/15/17 Renee Diaz APRN predniSONE (DELTASONE) 20 MG tablet Take one pill twice daily am and noon for 5 days then one pill daily for two days then one half pill daily for 2 days Patient not taking: Reported on 07/27/2019 01/06/18 Mike Ann Jr., MD SENNALAX-S 8.6-50 mg TAKE TWO TABLETS BY MOUTH TWICE A DAY Patient not taking: Reported on 07/27/2019 12/08/16 Mike Ann Jr., MD Allergies is allergic to penicillins; gabapentin; sulfa (sulfonamide antibiotics); and wellbutrin [bupropion hcl]. Review of Systems Review of Systems Constitutional: Negative for fever. HENT: Negative for congestion. Eyes: Negative for redness. Respiratory: Negative for cough. Gastrointestinal: Negative for abdominal pain. Musculoskeletal: Positive for arthralgias. Skin: Negative for rash. Allergic/Immunologic: Negative for immunocompromised state. Psychiatric/Behavioral: Negative for confusion. Physical Exam ED Triage Vitals [07/27/19 1546] BP: 161/75 Heart Rate: 100 Pulse Rate : n/a Temp: 36.8 C (98.2 F) Temp src: Oral Resp: 19 SpO2: 97 % BP 161/75 (BP Location: Left arm, Patient Position: Sitting) Pulse 100 Temp 36.8 C (98.2 F) (Oral) Resp 19 Ht 5' 2 (1.575 m) Wt 62.4 kg (137 lb 8 oz) SpO2 97% BMI 25.15 kg/m Physical Exam Constitutional: She appears well-developed and well-nourished. No distress. Eyes: Conjunctivae are normal. Cardiovascular: Normal rate, regular rhythm, normal heart sounds and intact distal pulses. No murmur heard. Pulmonary/Chest: Effort normal and breath sounds normal. No stridor. No respiratory distress. She has no wheezes. Abdominal: Soft. She exhibits no distension. There is no tenderness. There is no guarding. Musculoskeletal: She exhibits tenderness. She exhibits no edema. Tenderness to palpation left lateral malleolus. Neurological: She is alert. Skin: Capillary refill takes less than 2 seconds. Psychiatric: She has a normal mood and affect. Lab Results Emergency department lab results reviewed. Radiology Results ED Course Procedures Diagnosis Clinical Impression None Disposition - Prescriptions Patient's Medications New Prescriptions No medications on file Previous Medications ALENDRONATE (FOSAMAX) 70 MG TABLET Take on empty stomach once weekly sitting upright for full hour after taking with big glass of water. No other meds or food for 1 hour ALPRAZOLAM (XANAX) 1 MG TABLET Take 0.5 tablets (0.5 mg total) by mouth 4 (four) times a day as needed for anxiety. for anxiety Max Daily Amount: 2 mg ARIPIPRAZOLE (ABILIFY) 10 MG TABLET Take 1 tablet (10 mg total) by mouth once daily. ATORVASTATIN (LIPITOR) 20 MG TABLET TAKE ONE TABLET BY MOUTH DAILY *PT NEEDS APPOINTMENT* CAMPHOR-MENTHOL (SARNA ANTI-ITCH) LOTION Apply topically as needed for itching. CHOLECALCIFEROL (VITAMIN D3) 5,000 UNIT CAPSULE TAKE ONE CAPSULE BY MOUTH DAILY DIAPER,BRIEF,ADULT,DISPOSABLE MISC 1 application by Miscellaneous route 2 (two) times a day. DICLOFENAC (VOLTAREN) 75 MG EC TABLET Take 1 tablet (75 mg total) by mouth 2 (two) times a day. DOXYCYCLINE (VIBRAMYCIN) 100 MG CAPSULE Take 1 capsule (100 mg total) by mouth 2 (two) times a day. ESCITALOPRAM OXALATE (LEXAPRO) 20 MG TABLET Take 1 tablet (20 mg total) by mouth once daily. FLUTICASONE PROPIONATE (FLOVENT DISKUS) 250 MCG/ACTUATION DISK WITH DEVICE INHALE ONE PUFF BY MOUTH TWICE A DAY FOOD SUPPLEMT, LACTOSE-REDUCED (ENSURE) LIQUID Drink 2 bottles per day. Patient requests strawberry. GUAIFENESIN 200 MG TABLET TAKE THREE TABLETS BY MOUTH TWICE A DAY FOR 10 DAYS HYDROCHLOROTHIAZIDE (HYDRODIURIL) 25 MG TABLET TAKE ONE TABLET BY MOUTH DAILY HYDROCODONE-ACETAMINOPHEN (NORCO) 10-325 MG PER TABLET Take 1 tablet by mouth every 6 (six) hours as needed for pain for up to 30 days. Max Daily Amount: 4 tablets HYDROCODONE-ACETAMINOPHEN (NORCO) 7.5-325 MG TABLET Take 1 tablet by mouth 3 (three) times a day as needed for pain. To Last 30days. No early refills Max Daily Amount: 3 tablets HYDROCODONE-ACETAMINOPHEN (NORCO) 7.5-325 MG TABLET Take 1 tablet by mouth 3 (three) times a day as needed for pain. To last 30 days. No early refills Max Daily Amount: 3 tablets HYDROXYZINE (ATARAX) 25 MG TABLET TAKE ONE TABLET BY MOUTH EVERY 8 HOURS NEEDED FOR ANXIETY IPRATROPIUM-ALBUTEROL (DUO-NEB) 0.5-2.5 MG/3 ML NEBULIZER Inhale 3 mL into the lungs 4 (four) times a day. LACTOBACILLUS ACIDOPH-PECTIN (ACIDOPHILUS-PECTIN) 75 MILLION CELL -100 MG CAPSULE Take 1 capsule by mouth 2 (two) times a day. MISCELLANEOUS MEDICAL SUPPLY [facility] [place] Use right hand thumb spica splint NALOXONE 2 MG/ACTUATION SPRAY, NON-AEROSOL 2 mg by Nasal route as needed. 1-2 daily PRN. Proceed to ER for evaluation immediately following use. NICOTINE (NICODERM CQ) 21 MG/[address] 1 patch onto the skin every 24 (twenty-four) hours. OMEPRAZOLE (PRILOSEC) 40 MG CAPSULE TAKE ONE CAPSULE BY MOUTH DAILY POLYETHYLENE GLYCOL (MIRALAX) 17 GRAM PACKET Take 17 g by mouth once daily. POTASSIUM CHLORIDE (KLOR-CON) 10 MEQ CR TABLET TAKE TWO TABLETS BY MOUTH TWICE A DAY *PT NEEDS APPOINTMENT* PRAZOSIN (MINIPRESS) 1 MG CAPSULE Take 3 capsules (3 mg total) by mouth daily every night. PREDNISONE (DELTASONE) 20 MG TABLET Take one pill twice daily am and noon for 5 days then one pill daily for two days then one half pill daily for 2 days PROAIR HFA 90 MCG/ACTUATION INHALER INHALE TWO PUFFS BY MOUTH FOUR TIMES A DAY SENNALAX-S 8.6-50 MG TAKE TWO TABLETS BY MOUTH TWICE A DAY TIZANIDINE (ZANAFLEX) 4 MG TABLET TAKE ONE TABLET BY MOUTH TWICE A DAY UNDERPADS PAD Use as needed for incontinence Modified Medications No medications on file Discontinued Medications No medications on file Follow Up No follow-up provider specified. MDM Number of Diagnoses or Management Options Acute left ankle pain: Diagnosis management comments: 64-year-old female with a forementioned history presents with concerns of ankle pain. Left ankle lateral malleolus. No obvious deformity. Patient was able to ambulate on the extremity after the injury. Upon arrival vitals within acceptable limits per Has tenderness in that area. X-ray left ankle x-ray left foot. We'll reevaluate. . X-ray negative for acute findings. Patient's symptoms improved after treatment. She is able to bear weight without issue. Noted to be ambling with steady gait. She was discharged home with return precautions including but not limited to new or worsening symptoms, numbness, weakness, inability to follow-up as discussed or any other concerns. Patient without symptoms, clinical history, or exam findings to suggest acute pathology that would require further imaging, admission, or acute surgical intervention at the time of my evaluation. The likelihood of other entities in the differential is insufficient to justify any further testing for them. This was explained. Advised that persistent or worsening symptoms require further evaluation. Results including incidental findings of ER workup discussed. I explained that the ED diagnosis is a preliminary one based on current presentation. Strict return to ER instructions were described and she is comfortable with this plan. Questions were answered and verbalized understanding of discharge instructions and plan. Instructed to follow up as discussed. Jim Scott MD 07/27/[address] [facility] 2019-07-19 16:05:00 ED follow up phone c all placed to pt. She reports that she thinks her antibiotic is making her ill. She reports that she has been taking it as directed since 07.13, but that she has abdominal pain, diarrhea, and loss of appetite when she takes the medication. Pt reports that this am, before taking the medication, she woke up feeling well, hungry, but took the med and was unable to eat. She has tried taking the medication with and without food, gets the same results. Curious if she can stop the medication? Pt states that she has also finished her prednisone. She has a chronic cough, but her sputum is now clear and she no longer has the chest pain she presented to the ED with. Sent a message to Dr. Ann for his recommendation on the antibiotic. FAITH SANTANA [facility] 2019-07-13 13:46:46 [facility] EMERGENCY DEPARTMENT Pt Name: Ibis Tay Birthdate 1955 Date of evaluation: 07/13/2019 Provider: Moe Vargas DO CHIEF COMPLAINT Chief Complaint Patient presents with - Chest Pain nausea, cp started last night, coughing green and yellow, HPI Ibis Tay is a 64 y.o. female who presents to the emergency department with a chief complaint of cough, nausea vomiting, chest pain. Onset of chest pain was last night, cough is productive, green and yellow sputum. Nothing seemed to help, time it worse. She has a history of lung cancer, status post lobectomy in the left upper lobe. Patient also has chronic bronchitis. She has no fevers or chills. He has no other concerns. REVIEW OF SYSTEMS Review of systems was complete and negative except for above pertinent findings. PAST MEDICAL HISTORY Past Medical History: Diagnosis Date - Anxiety Takes Xanax - Arthritis - Breast mass 2013 rt axilla - Bronchitis - Bursitis Left hip - Cancer (HCC) 12 left lung cancer, scheduled for left upper lobectomy at [facility] with Dr. Moore - Cervical radiculopathy sees Dr. Cardenas, gets cervical pain injections every 3 months, last done in - COPD (chronic obstructive pulmonary disease) ([facility]) - DDD (degenerative disc disease) - Depression - Dermatological disorder 01/25 irratative dermatitis from insect b ite - Esophageal stricture dilated during upper endoscopy - Generalized anxiety disorder - GERD (gastroesophageal reflux disease) - H. pylori infection Hx of H pylori infection several months ago treated with medication, no current issues. - H/O pyloric stenosis - Hiatal hernia - HTN (hypertension) - Hypercholesteremia - Hyperlipidemia No current medications or issues. - OA (osteoarthritis) of knee - Palpitations with anxiety - Pneumonia 1994 resolved. - PONV (postoperative nausea and vomiting) - PTSD (post-traumatic stress disorder) son was murdered 8 years ago, followed by Dr. Milly Freire - Spinal stenosis cervical - Wears dentures full set - Wears glasses FAMILY HISTORY Family History Problem Relation Age of Onset - Other Other Hx: Yes Dx: Diabetes Fam Mem: Family h/o - Drug abuse Other - Other Other Hx: Yes Dx: Hypertension Fam Mem: Mother - Drug abuse Other - Hypertension Mother - Heart disease Mother - Diabetes Mother - No Known Problem Father - Other Sister - Cancer Sister - Other Other Hx: Yes Dx: Heart disease Fam Mem: Mother - Diabetes Maternal Grandmother SOCIAL HISTORY Social History Tobacco Use - Smoking status: Current Every Day Smoker Packs/day: 0.50 Years: 44.00 Pack years: 22.00 Types: Cigarettes - Smokeless tobacco: Current User Substance Use Topics - Alcohol use: No - Drug use: No SURGICAL HISTORY Past Surgical History: Procedure Laterality Date - EGD W BALLOON DILATATION AND BIOPSY PANEL N/A 03/05/2014 Performed by David Sanchez MD at [facility] GI - ESOPHAGEAL DILATION 2012 approx. done with upper endoscopy - KNEE ARTHROPLASTY Right 2010 - LEFT HIP KRISTAL-ARTHROPLASTY Left 09/27/2014 Performed by Isaak Moncada MD at [facility] OR - LEFT UPPER LOBECTOMY / LYMPH NODE DISSECTION Left 10/11/2017 Performed by Angy Moore MD at [facility] CVOR - LUMBAR FUSION 1996 - LUNG LOBECTOMY Left 10/11/2017 Upper - REPAIR / CONSTRUCTION RIGHT THUMB ULNAR COLATERAL LIGAMENT Right 04/05/2018 Performed by Amina Bowman MD at [facility] OR - REPLACEMENT TOTAL JOINT KNEE RIGHT / BETO Right 05/28/2014 Performed by Isaak Moncada MD at [facility] OR - SPINE SURGERY lumbar fusion - TENDON RELEASE Right arm - TOTAL HIP ARTHROPLASTY Left 09/26/14 hip hem-iarthoplasty - TOTAL KNEE ARTHROPLASTY Left 11/23 - TUBAL LIGATION Bilateral - UPPER GASTROINTESTINAL ENDOSCOPY 2012 approx. diagnosed with H. Pylori and esophagus dilated. - UPPER GASTROINTESTINAL ENDOSCOPY CURRENT MEDICATIONS Current Facility-Administered Medications: - HYDROmorphone (DILAUDID) syringe 1 mg, 1 mg, IntraVENous, Once, Moe Vargas DO - Insert peripheral IV, , , Once AND Saline lock IV, , , Once AND sodium chloride 0.9% syringe 3 mL, 3 mL, IntraVENous, PRN, Moe Vargas DO Current Outpatient Medications: - alendronate (FOSAMAX) 70 MG tablet, Take on empty stomach once weekly sitting upright for full hour after taking with big glass of water. No other meds or food for 1 hour, Disp: 4 tablet, Rfl: 3 - ALPRAZolam (XANAX) 1 MG tablet, Take 0.5 tablets (0.5 mg total) by mouth 4 (four) times a day as needed for anxiety. for anxiety Max Daily Amount: 2 mg, Disp: 60 tablet, Rfl: 4 - ARIPiprazole (ABILIFY) 10 MG tablet, Take 1 tablet (10 mg total) by mouth once daily., Disp: 30 tablet, Rfl: 4 - atorvastatin (LIPITOR) 20 MG tablet, TAKE ONE TABLET BY MOUTH DAILY *PT NEEDS APPOINTMENT*, Disp: 15 tablet, Rfl: 0 - camphor-menthol (SARNA ANTI-ITCH) lotion, Apply topically as needed for itching., Disp: 222 mL, Rfl: 11 - cholecalciferol (VITAMIN D3) 5,000 unit capsule, TAKE ONE CAPSULE BY MOUTH DAILY, Disp: 30 capsule, Rfl: 5 - diaper,brief,adult,disposable Misc, 1 application by Miscellaneous route 2 (two) times a day., Disp: 96 each, Rfl: 5 - diclofenac (VOLTAREN) 75 MG EC tablet, Take 1 tablet (75 mg total) by mouth 2 (two) times a day., Disp: 60 tablet, Rfl: 0 - doxycycline (VIBRAMYCIN) 100 MG capsule, Take 1 capsule (100 mg total) by mouth 2 (two) times a day., Disp: 14 capsule, Rfl: 0 - escitalopram oxalate (LEXAPRO) 20 MG tablet, Take 1 tablet (20 mg total) by mouth once daily., Disp: 30 tablet, Rfl: 5 - fluticasone propionate (FLOVENT DISKUS) 250 mcg/actuation Disk with Device, INHALE ONE PUFF BY MOUTH TWICE A DAY, Disp: 60 each, Rfl: 11 - food supplemt, lactose-reduced (ENSURE) Liquid, Drink 2 bottles per day. Patient requests strawberry., Disp: 81953 mL, Rfl: PRN - guaiFENesin 200 mg tablet, TAKE THREE TABLETS BY MOUTH TWICE A DAY FOR 10 DAYS, Disp: 60 tablet, Rfl: 0 - hydroCHLOROthiazide (HYDRODIURIL) 25 MG tablet, TAKE ONE TABLET BY MOUTH DAILY, Disp: 30 tablet, Rfl: 5 - HYDROcodone-acetaminophen (NORCO) 10-325 mg per tablet, Take 1 tablet by mouth every 6 (six) hours as needed for pain for up to 30 days. Max Daily Amount: 4 tablets, Disp: 90 tablet, Rfl: 0 - HYDROcodone-acetaminophen (NORCO) 7.5-325 mg tablet, Take 1 tablet by mouth 3 (three) times a day as needed for pain. To Last 30days. No early refills Max Daily Amount: 3 tablets, Disp: 90 tablet, Rfl: 0 - HYDROcodone-acetaminophen (NORCO) 7.5-325 mg tablet, Take 1 tablet by mouth 3 (three) times a day as needed for pain. To last 30 days. No early refills Max Daily Amount: 3 tablets, Disp: 90 tablet, Rfl: 0 - hydrOXYzine (ATARAX) 25 MG tablet, TAKE ONE TABLET BY MOUTH EVERY 8 HOURS NEEDED FOR ANXIETY, Disp: 60 tablet, Rfl: 3 - ipratropium-albuterol (DUO-NEB) 0.5-2.5 mg/3 mL nebulizer, Inhale 3 mL into the lungs 4 (four) times a day., Disp: 360 vial, Rfl: 3 - Lactobacillus acidoph-pectin (ACIDOPHILUS-PECTIN) 75 million cell -100 mg Capsule, Take 1 capsule by mouth 2 (two) times a day., Disp: 60 capsule, Rfl: 0 - miscellaneous medical [place] [facility] [place] hand thumb spica splint, Disp: 1 each, Rfl: 0 - naloxone 2 mg/actuation [place], Non-Aerosol, 2 mg by Nasal route as needed. 1-2 daily PRN. Proceed to ER for evaluation immediately following use., Disp: 4 each, Rfl: 1 - nicotine (NICODERM CQ) 21 mg/24 hr patch, Place 1 patch onto the skin every 24 (twenty-four) hours., Disp: 28 patch, Rfl: 1 - omeprazole (PRILOSEC) 40 MG capsule, TAKE ONE CAPSULE BY MOUTH DAILY, Disp: 30 capsule, Rfl: 5 - polyethylene glycol (MIRALAX) 17 gram packet, Take 17 g by mouth once daily., Disp: 14 each, Rfl: 0 - potassium chloride (KLOR-CON) 10 MEQ CR tablet, Take 2 tablets (20 mEq total) by mouth 2 (two) times a day. patient needs appointment, Disp: 120 tablet, Rfl: 0 - prazosin (MINIPRESS) 1 MG capsule, Take 3 capsules (3 mg total) by mouth daily every night., Disp: 90 capsule, Rfl: 4 - predniSONE (DELTASONE) 20 MG tablet, Take one pill twice daily am and noon for 5 days then one pill daily for two days then one half pill daily for 2 days, Disp: 13 tablet, Rfl: 0 - predniSONE (DELTASONE) 20 MG tablet, Take 2 tablets (40 mg total) by mouth once daily for 5 days., Disp: 10 tablet, Rfl: 0 - PROAIR HFA 90 mcg/actuation inhaler, INHALE TWO PUFFS BY MOUTH FOUR TIMES A DAY, Disp: 8.5 each, Rfl: 11 - SENNALAX-S 8.6-50 mg, TAKE TWO TABLETS BY MOUTH TWICE A DAY (Patient taking differently: No sig reported), Disp: 120 tablet, Rfl: 10 - underpads Pad, Use as needed for incontinence, Disp: 300 each, Rfl: 10 ALLERGIES Allergies Allergen Reactions - Penicillins Anaphylaxis - Gabapentin Other (See Comments) severe fatigue - Sulfa (Sulfonamide Antibiotics) Other (See Comments) Blisters inside and outside of mouth. - Wellbutrin [Bupropion Hcl] Other (See Comments) Body numbness and tingling PHYSICAL EXAM Vitals: 07/13/19 1416 07/13/19 1430 07/13/19 1445 07/13/19 1500 BP: 136/66 139/71 149/74 147/74 BP Location: Patient Position: Pulse: 70 72 76 76 Resp: Temp: TempSrc: SpO2: Weight: Height: General: Well-appearing, nontoxic HENT: Head is atraumatic, oromucosa is moist. Eyes : No scleral icterus, no conjunctival injection. Neck: Soft, supple. No masses. Lymphatic: No appreciable lymphadenopathy. Cardiovascular: Regular rate and rhythm, no murmur. No peripheral edema. Thorax & Lungs: Chest atraumatic. Clear to auscultation bilaterally. Abdomen: Soft, no guarding or rigidity. No point tenderness in the right upper or right lower quadrant. Skin: No rashes on exposed skin surfaces. Musculoskeletal: No deformities noted. Range of motion of extremity joints are intact. No tenderness over the calf or erythema over the calf in the lower extremities bilaterally. Neurologic: Awake, alert, oriented 3. LABS ED Lab Results Procedure Component Value Ref Range Date/Time Influenza A and B antigens [[id number]] Collected: 07/13/19 1413 Order Status: Completed Specimen: Nares Updated: 07/13/19 1541 Influenza A Antigen Negative Negative Influenza B Antigen Negative Negative Comprehensive metabolic panel [[id number]] (Abnormal) Collected: 07/13/19 135 Order Status: Completed Specimen: Blood Updated: 07/13/19 1426 Glucose 83 70 - 100 mg/dl BUN 6 6 - 24 mg/dl Creatinine 0.70 0.50 - 1.10 mg/dl Sodium 140 135 - 145 mmol/L Potassium 4.3 3.7 - 5.1 mmol/L Chloride 107 96 - 110 mmol/L CO2 30.0 22.0 - 32.0 mmol/L Anion Gap 7 <=20 mmol/L Calcium 8.7 8.5 - 10.5 mg/dl Total Protein 6.5 6.0 - 8.4 gm/dl Albumin 3.3 3.5 - 5.0 gm/dl Globulin 3.2 2.0 - 4.4 gm/dl AST 10 10 - 40 u/l Alkaline Phosphatase 95 33 - 138 u/l Total Bilirubin 0.5 0.0 - 1.5 mg/dl ALT 15 12 - 78 u/l GFR MDRD Af Amer >90 >=90 mL/min/1.73 m2 GFR MDRD Non Af Amer >90 >=90 mL/min/1.73 m2 Troponin I - STAT [[id number]] Collected: 07/13/191352 Order Status: Completed Specimen: Blood Updated: 07/13/19 1426 Troponin I <0.04 <=0.04 ng/mL CBC auto differential [[id number]] Collected: 07/13/191352 Order Status: Completed Specimen: Blood Updated: 07/13/19 1405 WBC 8.6 4.0 - 12.0 k/ul RBC 4.99 3.50 - 5.30 m/ul HEMOGLOBIN 14.0 12.0 - 16.0 gm/dl Hematocrit 43.2 36.0 - 48.0 % MCV 87 80 - 100 fl MCH 28.1 26.0 - 34.0 pg MCHC 32.4 30.0 - 37.0 gm/dl RDW 13.2 11.5 - 15.0 % Platelet Count 235 140 - 440 k/ul MPV 9.8 8.5 - 12.5 fl Neutrophils % 71 % Immature Granulocytes % 0 % Lymphs % 22 % Monocytes % 5 % Eosinophils Percent 2 % Basophils Percent 0 % Neutrophils Abs 6.1 1.5 - 8.0 k/ul Immature Granulocytes Abs 0.0 0.0 - 0.1 k/ul Lymphs Abs 1.9 1.0 - 4.5 k/ul Monocytes Abs 0.4 0.1 - 1.1 k/ul Eosinophils Absolute 0.2 0.0 - 0.4 k/ul Basophils Absolute 0.0 0.0 - 0.1 k/ul RADIOLOGY/EKG XR Chest 1 View Final Result Postoperative changes to the left lung with volume loss and basilar atelectasis. No focal consolidation. Chest Pain Heart Score (Results Pending) EKG: Performed in conjunction with the care of the patient in the emergency department. Rate 73, rhythm sinus, intervals of normal duration. Overall impression: Normal sinus rhythm, no ST elevation. ED COURSE / MEDICAL DECISION MAKING Patient was seen and examined. Patient's examination is unremarkable. She does of a cough, history of bronchitis, will treat for bronchitis with prednisone and doxycycline. Troponin and EKG were negative. Chest Pain Heart Score Date/Time: 07/13/2019 3:54 PM Performed by: Moe Vargas DO Authorized by: Moe Vargas DO HEART Score for Chest Pain Patients History: 0 - Slightly suspicious EC - Normal Age: 2 - >= 65 years Risk Factors: 1 - 1 or 2 risk factors Troponin: 0 - <= 1x normal limit HEART Total Score: 3 - low risk I do not believe this is ACS. Follow-up with primary care as needed. FINAL IMPRESSION 1. Bronchitis Disposition Discharged PATIENT REFERRED TO: No follow-up provider specified. DISCHARGE MEDICATIONS: Medication List START taking these medications doxycycline 100 MG capsule Quantity: 14 capsule Commonly known as: VIBRAMYCIN Take 1 capsule (100 mg total) by mouth 2 (two) times a day. CHANGE how you take these medications * predniSONE 20 MG tablet Quantity: 13 tablet Commonly known as: DELTASONE Take one pill twice daily am and noon for 5 days then one pill daily for two days then one half pill daily for 2 days What changed: Another medication with the same name was added. Make sure you understand how and when to take each. * predniSONE 20 MG tablet Quantity: 10 tablet Commonly known as: DELTASONE Take 2 tablets (40 mg total) by mouth once daily for 5 days. What changed: You were already taking a medication with the same name, and this prescription was added. Make sure you understand how and when to take each. * This list has 2 medication(s) that are the same as other medications prescribed for you. Read the directions carefully, and ask your doctor or other care provider to review them with you. ASK your doctor about these medications alendronate 70 MG tablet Quantity: 4 tablet Commonly known as: FOSAMAX Take on empty stomach once weekly sitting upright for full hour after taking with big glass of water. No other meds or food for 1 hour ALPRAZolam 1 MG tablet Quantity: 60 tablet Commonly known as: XANAX Take 0.5 tablets (0.5 mg total) by mouth 4 (four) times a day as needed for anxiety. for anxiety Max Daily Amount: 2 mg ARIPiprazole 10 MG tablet Quantity: 30 tablet Commonly known as: ABILIFY Take 1 tablet (10 mg total) by mouth once daily. atorvastatin 20 MG tablet Quantity: 15 tablet Commonly known as: LIPITOR TAKE ONE TABLET BY MOUTH DAILY *PT NEEDS APPOINTMENT* camphor-menthol lotion Quantity: 222 mL Commonly known as: SARNA ORIGINAL Apply topically as needed for itching. cholecalciferol 5,000 unit capsule Quantity: 30 capsule Commonly known as: VITAMIN D3 TAKE ONE CAPSULE BY MOUTH DAILY diaper,brief,adult,disposable Misc Quantity: 96 each 1 application by Miscellaneous route 2 (two) times a day. diclofenac 75 MG EC tablet Quantity: 60 tablet Commonly known as: VOLTAREN Take 1 tablet (75 mg total) by mouth 2 (two) times a day. escitalopram oxalate 20 MG tablet Quantity: 30 tablet Commonly known as: LEXAPRO Take 1 tablet (20 mg total) by mouth once daily. fluticasone propionate 250 mcg/actuation [place]sdv Quantity: 60 each Commonly known as: FLOVENT DISKUS INHALE ONE PUFF BY MOUTH TWICE A DAY food supplemt, lactose-reduced Liqd Quantity: 07629 mL Commonly known as: ENSURE Drink 2 bottles per day. Patient requests strawberry. guaiFENesin 200 mg tablet Quantity: 60 tablet TAKE THREE TABLETS BY MOUTH TWICE A DAY FOR 10 DAYS hydroCHLOROthiazide 25 MG tablet Quantity: 30 tablet Commonly known as: HYDRODIURIL TAKE ONE TABLET BY MOUTH DAILY * HYDROcodone-acetaminophen 7.5-325 mg tablet Quantity: 90 tablet Commonly known as: NORCO Take 1 tablet by mouth 3 (three) times a day as needed for pain. To Last 30days. No early refills Max Daily Amount: 3 tablets * HYDROcodone-acetaminophen 7.5-325 mg tablet Quantity: 90 tablet Commonly known as: NORCO Take 1 tablet by mouth 3 (three) times a day as needed for pain. To last 30 days. No early refills Max Daily Amount: 3 tablets * HYDROcodone-acetaminophen 10-325 mg per tablet Quantity: 90 tablet Commonly known as: NORCO Take 1 tablet by mouth every 6 (six) hours as needed for pain for up to 30 days. Max Daily Amount: 4 tablets hydrOXYzine 25 MG tablet Quantity: 60 tablet Commonly known as: ATARAX TAKE ONE TABLET BY MOUTH EVERY 8 HOURS NEEDED FOR ANXIETY ipratropium-albuterol 0.5-2.5 mg/3 mL nebulizer Quantity: 360 vial Commonly known as: DUO-NEB Inhale 3 mL into the lungs 4 (four) times a day. Lactobacillus acidoph-pectin 75 million cell -100 mg Cap Quantity: 60 capsule Commonly known as: ACIDOPHILUS-PECTIN Take 1 capsule by mouth 2 (two) times a day. miscellaneous medical supply Misc Quantity: 1 each Use right hand thumb spica splint naloxone 2 mg/actuation [place] Quantity: 4 each 2 mg by Nasal route as needed. 1-2 daily PRN. Proceed to ER for evaluation immediately following use. nicotine 21 mg/24 hr patch Quantity: 28 patch Commonly known as: NICODERM CQ Place 1 patch onto the skin every 24 (twenty-four) hours. omeprazole 40 MG capsule Quantity: 30 capsule Commonly known as: PriLOSEC TAKE ONE CAPSULE BY MOUTH DAILY polyethylene glycol 17 gram packet Quantity: 14 each Commonly known as: MIRALAX Take 17 g by mouth once daily. potassium chloride 10 MEQ CR tablet Quantity: 120 tablet Commonly known as: KLOR-CON Take 2 tablets (20 mEq total) by mouth 2 (two) times a day. patient needs appointment prazosin 1 MG capsule Quantity: 90 capsule Commonly known as: MINIPRESS Take 3 capsules (3 mg total) by mouth daily every night. PROAIR HFA 90 mcg/actuation inhaler Quantity: 8.5 each Generic drug: albuterol INHALE TWO PUFFS BY MOUTH FOUR TIMES A DAY SENNALAX-S 8.6-50 mg Quantity: 120 tablet Generic drug: senna-docusate TAKE TWO TABLETS BY MOUTH TWICE A DAY underpads Pads Quantity: 300 each Use as needed for incontinence * This list has 3 medication(s) that are the same as other medications prescribed for you. Read the directions carefully, and ask your doctor or other care provider to review them with you. Where to Get Your Medications You can get these medications from any pharmacy Bring a paper prescription for each of these medications doxycycline 100 MG capsule predniSONE 20 MG tablet (Please note that portions of this note were completed with a voice recognition program. Efforts were made to edit the dictations but occasionally words are mis-transcribed.) Decision Time: Moe Vargas DO Emergency Medicine Moe Vargas DO 07/13/19 1556 [facility]E [facility] 2019-07-05 09:50:00 OFFICE VISIT CHIEF COMPLAINT Back Pain and Follow-up SUBJECTIVE Ibis Tay is a 64 y.o. female who presents for follow-up of Back Pain and Follow-up with diagnosis of: 1. cervical stenosis with radiculopathy. 2. 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 Headaches With last encounter we resumed chronic opiate therapy with hydrocodone 7.5/325 1 tid. She continues with pain that is worsening in her neck radaiting to her UE bilaterally. She notes that her nlow back pain is stable. However, she has been having increasing neck pain with radiating arm pain that is significant limiting her function and mobility. She reports that her last cervical WAQAR was DEC 2017 and had excellent relief lastin 8-10mos. Patient currently is on Hydrocodone 7.5/325 1 tid states the medication is not effective giving the average pain rating of: 7/10 and feels that the pain is not manageable. New or changing adverse side effects:none New or changing pain complaints:none Other concerns: none ROS Constitutional: denies dizziness, sedation, or somnolence Psychological: denies altered mentation or euphoria GI: deniesconstipation or diarrhea Musc: denies acute change in numbness, weakness, or tingling of extemities MEDICATIONS Current Outpatient Medications Medication Sig Dispense Refill - alendronate (FOSAMAX) 70 MG tablet Take on empty stomach once weekly sitting upright for full hour after taking with big glass of water. No other meds or food for 1 hour 4 tablet 3 - ALPRAZolam (XANAX) 1 MG tablet Take 0.5 tablets (0.5 mg total) by mouth 4 (four) times a day as needed for anxiety. for anxiety Max Daily Amount: 2 mg 60 tablet 4 - ARIPiprazole (ABILIFY) 10 MG tablet Take 1 tablet (10 mg total) by mouth once daily. 30 tablet 4 - atorvastatin (LIPITOR) 20 MG tablet TAKE ONE TABLET BY MOUTH DAILY *PT NEEDS APPOINTMENT* 15 tablet 0 - camphor-menthol (SARNA ANTI-ITCH) lotion Apply topically as needed for itching. 222 mL 11 - cholecalciferol (VITAMIN D3) 5,000 unit capsule TAKE ONE CAPSULE BY MOUTH DAILY 30 capsule 5 - diaper,brief,adult,disposable Misc 1 application by Miscellaneous route 2 (two) times a day. 96 each 5 - diclofenac (VOLTAREN) 75 MG EC tablet Take 1 tablet (75 mg total) by mouth 2 (two) times a day. 60 tablet 0 - escitalopram oxalate (LEXAPRO) 20 MG tablet Take 1 tablet (20 mg total) by mouth once daily. 30 tablet 5 - fluticasone propionate (FLOVENT DISKUS) 250 mcg/actuation Disk with Device INHALE ONE PUFF BY MOUTH TWICE A DAY 60 each 11 - food supplemt, lactose-reduced (ENSURE) Liquid Drink 2 bottles per day. Patient requests strawberry. 89077 mL PRN - guaiFENesin 200 mg tablet TAKE THREE TABLETS BY MOUTH TWICE A DAY FOR 10 DAYS 60 tablet 0 - hydroCHLOROthiazide (HYDRODIURIL) 25 MG tablet TAKE ONE TABLET BY MOUTH DAILY 30 tablet 5 - HYDROcodone-acetaminophen (NORCO) 7.5-325 mg tablet Take 1 tablet by mouth 3 (three) times a day as needed for pain. To Last 30days. No early refills Max Daily Amount: 3 tablets 90 tablet 0 - HYDROcodone-acetaminophen (NORCO) 7.5-325 mg tablet Take 1 tablet by mouth 3 (three) times a day as needed for pain. To last 30 days. No early refills Max Daily Amount: 3 tablets 90 tablet 0 - hydrOXYzine (ATARAX) 25 MG tablet TAKE ONE TABLET BY MOUTH EVERY 8 HOURS NEEDED FOR ANXIETY 60 tablet 3 - ipratropium-albuterol (DUO-NEB) 0.5-2.5 mg/3 mL nebulizer Inhale 3 mL into the lungs 4 (four) times a day. 360 vial 3 - Lactobacillus acidoph-pectin (ACIDOPHILUS-PECTIN) 75 million cell -100 mg Capsule Take 1 capsule by mouth 2 (two) times a day. 60 capsule 0 - miscellaneous medical [place] [facility] [place] thumb spica splint 1 each 0 - naloxone 2 mg/actuation [place], Non-Aerosol 2 mg by Nasal route as needed. 1-2 daily PRN. Proceed to ER for evaluation immediately following use. 4 each 1 - nicotine (NICODERM CQ) 21 mg/[address] 1 patch onto the skin every 24 (twenty-four) hours. 28 patch 1 - omeprazole (PRILOSEC) 40 MG capsule TAKE ONE CAPSULE BY MOUTH DAILY 30 capsule 5 - polyethylene glycol (MIRALAX) 17 gram packet Take 17 g by mouth once daily. 14 each 0 - potassium chloride (KLOR-CON) 10 MEQ CR tablet Take 2 tablets (20 mEq total) by mouth 2 (two) times a day. patient needs appointment 120 tablet 0 - prazosin (MINIPRESS) 1 MG capsule Take 3 capsules (3 mg total) by mouth daily every night. 90 capsule 4 - predniSONE (DELTASONE) 20 MG tablet Take one pill twice daily am and noon for 5 days then one pill daily for two days then one half pill daily for 2 days 13 tablet 0 - PROAIR HFA 90 mcg/actuation inhaler INHALE TWO PUFFS BY MOUTH FOUR TIMES A DAY 8.5 each 11 - SENNALAX-S 8.6-50 mg TAKE TWO TABLETS BY MOUTH TWICE A DAY (Patient taking differently: No sig reported) 120 tablet 10 - underpads Pad Use as needed for incontinence 300 each 10 No current facility-administered medications for this visit. ALLERGIES Allergies Allergen Reactions - Penicillins Anaphylaxis - Gabapentin Other (See Comments) severe fatigue - Sulfa (Sulfonamide Antibiotics) Other (See Comments) Blisters inside and outside of mouth. - Wellbutrin [Bupropion Hcl] Other (See Comments) Body numbness and tingling PHYSICAL EXAM Vital Signs: BP (!) 190/96 (BP Location: Left arm) Pulse 91 Resp 14 Wt 62.3 kg (137 lb 4.8 oz) BMI 25.11 kg/m Constitutional: Well nourished, well groomed, NAD. CARDIAC: Regular Rate LUNGS: Breathing nonlabored, no wheezing Neurologic: Alert & oriented x 3, normal gait, no focal deficits noted. Psychiatric: Affect normal, judgment normal, mood normal. Other Affected BA/OS: Neck pain with extension, pain radiating To LUE with parasthesias. ASSESSMENT AND PLAN Problem List Items Addressed This Visit None Visit Diagnoses Failed back syndrome 2. LEFT Hip fracture 3. Low back pain Requested Prescriptions Pending Prescriptions Disp Refills - HYDROcodone-acetaminophen (NORCO) 7.5-325 mg tablet 90 tablet 0 Sig: Take 1 tablet by mouth 3 (three) times a day as needed for pain. To Last 30days. No early refills Max Daily Amount: 3 tablets - HYDROcodone-acetaminophen (NORCO) 7.5-325 mg tablet 90 tablet 0 Sig: Take 1 tablet by mouth 3 (three) times a day as needed for pain. To last 30 days. No early refills Max Daily Amount: 3 tablets PLAN: 1. cervical stenosis with radiculopathy. Worsening. I will schedule her for cervical WAQAR. In the interim I will titrate her hydrocodoen to 10/325 tid and f/u in 4 weeks 2. Bilateral Knee pain R>>L: She has had prior knee replacement surgery but is having severe knee pain on the right. We proceeded with genicular nerve block and she noted 80% relief of her knee pain. She notes this has persisted for 1week. She is not sure if insurance will authorize the rhizotomy but we will resubmit it given her significant improvement. In the interim I will increase her hydrocodone dosing to 7.5/325 tid prn . We discussed risk of chronic opaite tehrapy combined with benzodiazepine use. She states that Dr. Lemos has been weaning her xanax down. I discussed with her I will continue chronic opaite therapy provided she continue weaning off the xanax, 3. Lumbar spondylosis: Recent Xray show an 8mm spondylollisthesis of L4 on L5 but I am unsure if this is stable or not. I will obtain completion XRAY with flex/extension views./ 4. Chronic Pain with chronic opiate therapy: The risks/benefits of chronic opiate therapy was discussed with patient including failure of therapy, psychological addiction, physiological dependence, and risk withdrawal syndrome. Warning symptoms of potential opiate overuse/overdose were discussed including sedation, somnolence, and altered mentation were reviewed and I counseled patient these symptoms can occur even when patient have been on a stable dose and also can happen despite following physicians instructions. Alternative therapies were discussed including: non-opiate medications, interventional pain procedures, and Cognitive Behavioral Therapy. After discussing these alternatives with the patient, the patient has opted to decline these alternatives at this time. Patient has tried and failed more conservative measures and were either ineffective or intolerant. In my medical opinion non-opiate therapy is not appropriate to address the patient's medical condition at this time and will continue chronic opiate therapy after having addressed efficacy, adverse side effects, and safety of therapy with the patient. Patient verbally agrees. CLINIC TRANSITION PLAN: I had a detailed conversation with patient that I will be leaving [facility] effective Jul. I discussed with him that I will be starting at [facility] on Aug. As an alternative I recommended he may follow with Dr. Sood who is my partner in [facility] at [place]. Patient notes that they would like to continue care with me at [facility]. To facilitate this I will provide 2 serial prescription and asked the patient to reach out to [facility] to verify insurance coverage and schedule a follow-up appointment with me at [facility]. He will run out of medications on Aug and will need a [employer] f/u appt prior to that date. However if his insurance is not accepted then he may contact Dr. Sood's office or his PCP directly for alternatives The patient indicates understanding of these issues and agrees with the plan. I reviewed the patient's medical information and medical history. I have reviewed the past medical, family, and social history sections including the medications and allergies listed in the above medical record. Electronically signed by: Isaías Cardenas, 07/05/2019 10:24 AM [facility] 2019-05-21 09:50:00 OFFICE VISIT CHIEF COMPLAINT Back Pain SUBJECTIVE Ibismario Tay is a 64 y.o. female who presents for follow-up of Back Pain with diagnosis of: 1. cervical stenosis with radiculopathy. 2. 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 Headaches With last encounter we resumed chronic opiate therapy with hydrocodone 5/325 1-2 po qday. She continues with pain that is worsening in her neck radaiting to her UE bilaterally. She notes that her neck and low back pain is stable. However, she has been having increasing RIGHT knee pain. She notes that she has had prior knee replacement surgery but her PCP is sending her to orthopedics for evaluation Patient currently is on Hydrocodone 5/325 1-2 po qday states the medication is not effective giving the average pain rating of: 7/10 and feels that the pain is not manageable. New or changing adverse side effects:none New or changing pain complaints:none Other concerns: none ROS Constitutional: denies dizziness, sedation, or somnolence Psychological: denies altered mentation or euphoria GI: deniesconstipation or diarrhea Musc: denies acute change in numbness, weakness, or tingling of extemities MEDICATIONS Current Outpatient Medications Medication Sig Dispense Refill - alendronate (FOSAMAX) 70 MG tablet Take on empty stomach once weekly sitting upright for full hour after taking with big glass of water. No other meds or food for 1 hour 4 tablet 3 - ALPRAZolam (XANAX) 1 MG tablet Take 0.5 tablets (0.5 mg total) by mouth 4 (four) times a day as needed for anxiety. for anxiety Max Daily Amount: 2 mg 60 tablet 4 - ARIPiprazole (ABILIFY) 10 MG tablet Take 1 tablet (10 mg total) by mouth once daily. 30 tablet 4 - atorvastatin (LIPITOR) 20 MG tablet Take 1 tablet (20 mg total) by mouth once daily. patient needs fasting labs 30 tablet 0 - camphor-menthol (SARNA ANTI-ITCH) lotion Apply topically as needed for itching. 222 mL 11 - cholecalciferol (VITAMIN D3) 5,000 unit capsule TAKE ONE CAPSULE BY MOUTH DAILY 30 capsule 5 - diaper,brief,adult,disposable Misc 1 application by Miscellaneous route 2 (two) times a day. 96 each 5 - diclofenac (VOLTAREN) 75 MG EC tablet Take 1 tablet (75 mg total) by mouth 2 (two) times a day. 60 tablet 0 - escitalopram oxalate (LEXAPRO) 20 MG tablet Take 1 tablet (20 mg total) by mouth once daily. 30 tablet 5 - fluticasone propionate (FLOVENT DISKUS) 250 mcg/actuation Disk with Device INHALE ONE PUFF BY MOUTH TWICE A DAY 60 each 11 - food supplemt, lactose-reduced (ENSURE) Liquid Drink 2 bottles per day. Patient requests strawberry. 40992 mL PRN - guaiFENesin 200 mg tablet TAKE THREE TABLETS BY MOUTH TWICE A DAY FOR 10 DAYS 60 tablet 0 - hydroCHLOROthiazide (HYDRODIURIL) 25 MG tablet TAKE ONE TABLET BY MOUTH DAILY 30 tablet 5 - HYDROcodone-acetaminophen (NORCO) 7.5-325 mg tablet Take 1 tablet by mouth 3 (three) times a day as needed for pain. To Last 30days. No early refills Max Daily Amount: 3 tablets 90 tablet 0 - HYDROcodone-acetaminophen (NORCO) 7.5-325 mg tablet Take 1 tablet by mouth 3 (three) times a day as needed for pain. To last 30 days. No early refills Max Daily Amount: 3 tablets 90 tablet 0 - hydrOXYzine (ATARAX) 25 MG tablet TAKE ONE TABLET BY MOUTH EVERY 8 HOURS NEEDED FOR ANXIETY 60 tablet 3 - ipratropium-albuterol (DUO-NEB) 0.5-2.5 mg/3 mL nebulizer Inhale 3 mL into the lungs 4 (four) times a day. 360 vial 3 - Lactobacillus acidoph-pectin (ACIDOPHILUS-PECTIN) 75 million cell -100 mg Capsule Take 1 capsule by mouth 2 (two) times a day. 60 capsule 0 - miscellaneous medical [place] [facility] [place] hand thumb spica splint 1 each 0 - naloxone 2 mg/actuation [place], Non-Aerosol 2 mg by Nasal route as needed. 1-2 daily PRN. Proceed to ER for evaluation immediately following use. 4 each 1 - nicotine (NICODERM CQ) 21 mg/[address] 1 patch onto the skin every 24 (twenty-four) hours. 28 patch 1 - omeprazole (PRILOSEC) 40 MG capsule TAKE ONE CAPSULE BY MOUTH DAILY 30 capsule 5 - polyethylene glycol (MIRALAX) 17 gram packet Take 17 g by mouth once daily. 14 each 0 - potassium chloride (KLOR-CON) 10 MEQ CR tablet Take 2 tablets (20 mEq total) by mouth 2 (two) times a day. 60 tablet 0 - potassium chloride (KLOR-CON) 10 MEQ CR tablet TAKE TWO TABLETS BY MOUTH TWICE A DAY 120 tablet 4 - prazosin (MINIPRESS) 1 MG capsule Take 3 capsules (3 mg total) by mouth daily every night. 90 capsule 4 - predniSONE (DELTASONE) 20 MG tablet Take one pill twice daily am and noon for 5 days then one pill daily for two days then one half pill daily for 2 days 13 tablet 0 - PROAIR HFA 90 mcg/actuation inhaler INHALE TWO PUFFS BY MOUTH FOUR TIMES A DAY 8.5 each 11 - SENNALAX-S 8.6-50 mg TAKE TWO TABLETS BY MOUTH TWICE A DAY (Patient taking differently: No sig reported) 120 tablet 10 - underpads Pad Use as needed for incontinence 300 each 10 No current facility-administered medications for this visit. ALLERGIES Allergies Allergen Reactions - Penicillins Anaphylaxis - Gabapentin Other (See Comments) severe fatigue - Sulfa (Sulfonamide Antibiotics) Other (See Comments) Blisters inside and outside of mouth. - Wellbutrin [Bupropion Hcl] Other (See Comments) Body numbness and tingling PHYSICAL EXAM Vital Signs: BP (!) 193/91 (BP Location: Right arm) Pulse 109 Resp 14 Wt 64 kg (141 lb 3.2 oz) BMI 25.83 kg/m Constitutional: Well nourished, well groomed, NAD. CARDIAC: Regular Rate LUNGS: Breathing nonlabored, no wheezing Neurologic: Alert & oriented x 3, normal gait, no focal deficits noted. Psychiatric: Affect normal, judgment normal, mood normal. Other Affected BA/OS: Neck pain with extension, pain radiating To LUE with parasthesias. ASSESSMENT AND PLAN Problem List Items Addressed This Visit None Visit Diagnoses Failed back syndrome 2. LEFT Hip fracture 3. Low back pain Requested Prescriptions Pending Prescriptions Disp Refills - HYDROcodone-acetaminophen (NORCO) 7.5-325 mg tablet 90 tablet 0 Sig: Take 1 tablet by mouth 3 (three) times a day as needed for pain. To Last 30days. No early refills Max Daily Amount: 3 tablets - HYDROcodone-acetaminophen (NORCO) 7.5-325 mg tablet 90 tablet 0 Sig: Take 1 tablet by mouth 3 (three) times a day as needed for pain. To last 30 days. No early refills Max Daily Amount: 3 tablets PLAN: 1. cervical stenosis with radiculopathy. stable 2. Bilateral Knee pain R>>L: She has had prior knee replacement surgery but is having severe knee pain on the right. We proceeded with genicular nerve block and she noted 80% relief of her knee pain. She notes this has persisted for 1week. She is not sure if insurance will authorize the rhizotomy but we will resubmit it given her significant improvement. In the interim I will increase her hydrocodone dosing to 7.5/325 tid prn . We discussed risk of chronic opaite tehrapy combined with benzodiazepine use. She states that Dr. Lemos has been weaning her xanax down. I discussed with her I will continue chronic opaite therapy provided she continue weaning off the xanax, 3. Lumbar spondylosis: Recent Xray show an 8mm spondylollisthesis of L4 on L5 but I am unsure if this is stable or not. I will obtain completion XRAY with flex/extension views./ 2. Chronic Pain with chronic opiate therapy: The risks/benefits of chronic opiate therapy was discussed with patient including failure of therapy, psychological addiction, physiological dependence, and risk withdrawal syndrome. Warning symptoms of potential opiate overuse/overdose were discussed including sedation, somnolence, and altered mentation were reviewed and I counseled patient these symptoms can occur even when patient have been on a stable dose and also can happen despite following physicians instructions. Alternative therapies were discussed including: non-opiate medications, interventional pain procedures, and Cognitive Behavioral Therapy. After discussing these alternatives with the patient, the patient has opted to decline these alternatives at this time. Patient has tried and failed more conservative measures and were either ineffective or intolerant. In my medical opinion non-opiate therapy is not appropriate to address the patient's medical condition at this time and will continue chronic opiate therapy after having addressed efficacy, adverse side effects, and safety of therapy with the patient. Patient verbally agrees. The patient indicates understanding of these issues and agrees with the plan. I reviewed the patient's medical information and medical history. I have reviewed the past medical, family, and social history sections including the medications and allergies listed in the above medical record. Electronically signed by: Isaías Cardenas 05/21/2019 9:59 AM [facility] 2019-04-05 11:15:00 Patient here for flu shot today, given high dose per left arm. [facility] 2019-03-22 08:40:00 OFFICE VISIT CHIEF COMPLAINT Back Pain and Other (Bilateral Knee) SUBJECTIVE Ibis Tay is a 64 y.o. female who presents for follow-up of Back Pain and Other (Bilateral Knee) with diagnosis of: 1. cervical stenosis with radiculopathy. 2. 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 Headaches With last encounter we resumed chronic opiate therapy with hydrocodone 5/325 1-2 po qday. She continues with pain that is worsening in her neck radaiting to her UE bilaterally. She notes that her neck and low back pain is stable. However, she has been having increasing RIGHT knee pain. She notes that she has had prior knee replacement surgery but her PCP is sending her to orthopedics for evaluation Patient currently is on Hydrocodone 5/325 1-2 po qday states the medication is not effective giving the average pain rating of: 7/10 and feels that the pain is not manageable. New or changing adverse side effects:none New or changing pain complaints:none Other concerns: none ROS Constitutional: denies dizziness, sedation, or somnolence Psychological: denies altered mentation or euphoria GI: deniesconstipation or diarrhea Musc: denies acute change in numbness, weakness, or tingling of extemities MEDICATIONS Current Outpatient Medications Medication Sig Dispense Refill - alendronate (FOSAMAX) 70 MG tablet Take on empty stomach once weekly sitting upright for full hour after taking with big glass of water. No other meds or food for 1 hour 4 tablet 0 - ALPRAZolam (XANAX) 1 MG tablet TAKE ONE TABLET BY MOUTH THREE TIMES A DAY NEEDED FOR ANXIETY 90 tablet 2 - ARIPiprazole (ABILIFY) 10 MG tablet Take 1 tablet (10 mg total) by mouth once daily. 30 tablet 3 - atorvastatin (LIPITOR) 20 MG tablet TAKE ONE TABLET BY MOUTH DAILY 90 tablet 0 - camphor-menthol (SARNA ANTI-ITCH) lotion Apply topically as needed for itching. 222 mL 11 - cholecalciferol (VITAMIN D3) 5,000 unit capsule TAKE ONE CAPSULE BY MOUTH DAILY 30 capsule 5 - diaper,brief,adult,disposable Misc 1 application by Miscellaneous route 2 (two) times a day. 96 each 5 - diclofenac (VOLTAREN) 75 MG EC tablet Take 1 tablet (75 mg total) by mouth 2 (two) times a day. 60 tablet 0 - escitalopram oxalate (LEXAPRO) 20 MG tablet Take 1 tablet (20 mg total) by mouth once daily. 30 tablet 5 - fluticasone propionate (FLOVENT DISKUS) 250 mcg/actuation Disk with Device INHALE ONE PUFF BY MOUTH TWICE A DAY 60 each 11 - food supplemt, lactose-reduced (ENSURE) Liquid Drink 2 bottles per day. Patient requests strawberry. 75810 mL PRN - guaiFENesin 200 mg tablet TAKE THREE TABLETS BY MOUTH TWICE A DAY FOR 10 DAYS 60 tablet 0 - hydroCHLOROthiazide (HYDRODIURIL) 25 MG tablet Take 1 tablet (25 mg total) by mouth once daily. 30 tablet 0 - HYDROcodone-acetaminophen (NORCO) 5-325 mg tablet Take 1-2 tablets by mouth daily as needed for pain. To Last 30days. No early refills Max Daily Amount: 2 tablets 60 tablet 0 - HYDROcodone-acetaminophen (NORCO) 5-325 mg tablet Take 1-2 tablets by mouth daily as needed for pain. To last 30days. No early refill Max Daily Amount: 2 tablets 60 tablet 0 - hydrOXYzine (ATARAX) 25 MG tablet TAKE ONE TABLET BY MOUTH EVERY 8 HOURS NEEDED FOR ANXIETY 60 tablet 3 - ipratropium-albuterol (DUO-NEB) 0.5-2.5 mg/3 mL nebulizer Inhale 3 mL into the lungs 4 (four) times a day. 360 vial 3 - Lactobacillus acidoph-pectin (ACIDOPHILUS-PECTIN) 75 million cell -100 mg Capsule Take 1 capsule by mouth 2 (two) times a day. 60 capsule 0 - lisinopril (PRINIVIL,ZESTRIL) 10 MG tablet TAKE ONE TABLET BY MOUTH DAILY 90 tablet 1 - miscellaneous medical [place] [facility] [place] thumb spica splint 1 each 0 - montelukast (SINGULAIR) 10 mg tablet TAKE ONE TABLET BY MOUTH EVERY EVENING 30 tablet 4 - naloxone 2 mg/actuation [place], Non-Aerosol 2 mg by Nasal route as needed. 1-2 daily PRN. Proceed to ER for evaluation immediately following use. 4 each 1 - nicotine (NICODERM CQ) 21 mg/[address] 1 patch onto the skin every 24 (twenty-four) hours. (Patient not taking: Reported on 02/27/2019 ) 28 patch 1 - omeprazole (PRILOSEC) 40 MG capsule TAKE ONE CAPSULE BY MOUTH DAILY 30 capsule 5 - polyethylene glycol (MIRALAX) 17 gram packet Take 17 g by mouth once daily. (Patient not taking: Reported on 02/27/2019 ) 14 each 0 - potassium chloride (KLOR-CON) 10 MEQ CR tablet Take 2 tablets (20 mEq total) by mouth 2 (two) times a day. 60 tablet 0 - potassium chloride (KLOR-CON) 10 MEQ CR tablet TAKE TWO TABLETS BY MOUTH TWICE A DAY 120 tablet 4 - prazosin (MINIPRESS) 1 MG capsule Take 2 capsules (2 mg total) by mouth daily every night. 60 capsule 4 - predniSONE (DELTASONE) 20 MG tablet Take one pill twice daily am and noon for 5 days then one pill daily for two days then one half pill daily for 2 days 13 tablet 0 - PROAIR HFA 90 mcg/actuation inhaler INHALE TWO PUFFS BY MOUTH FOUR TIMES A DAY 8.5 each 11 - QUEtiapine (SEROQUEL) 100 MG tablet Take 1 tablet (100 mg total) by mouth daily every night. 30 tablet 3 - SENNALAX-S 8.6-50 mg TAKE TWO TABLETS BY MOUTH TWICE A DAY (Patient taking differently: No sig reported) 120 tablet 10 - underpads Pad Use as needed for incontinence 300 each 10 No current facility-administered medications for this visit. ALLERGIES Allergies Allergen Reactions - Penicillins Anaphylaxis - Gabapentin Other (See Comments) severe fatigue - Sulfa (Sulfonamide Antibiotics) Other (See Comments) Blisters inside and outside of mouth. - Wellbutrin [Bupropion Hcl] Other (See Comments) Body numbness and tingling PHYSICAL EXAM Vital Signs: BP 155/82 (BP Location: Left arm) Pulse 93 Resp 12 Wt 65.8 kg (145 lb) BMI 26.52 kg/m Constitutional: Well nourished, well groomed, NAD. CARDIAC: Regular Rate LUNGS: Breathing nonlabored, no wheezing Neurologic: Alert & oriented x 3, normal gait, no focal deficits noted. Psychiatric: Affect normal, judgment normal, mood normal. Other Affected BA/OS: Neck pain with extension, pain radiating To LUE with parasthesias. ASSESSMENT AND PLAN Problem List Items Addressed This Visit None Visit Diagnoses Failed back syndrome - Primary Spinal stenosis in cervical region 2. LEFT Hip fracture 3. Low back pain Requested Prescriptions No prescriptions requested or ordered in this encounter PLAN: 1. cervical stenosis with radiculopathy. stable 2. Bilateral Knee pain R>>L: She has had prior knee replacement surgery but is having severe knee pain on the right. We proceeded with genicular nerve block and she noted 80% relief of her knee pain. She notes this has persisted for 1week. She is not sure if insurance will authorize the rhizotomy but we will resubmit it given her significant improvement. In the interim I will increase her hydrocodone dosing to 7.5/325 tid prn . We discussed risk of chronic opaite tehrapy combined with benzodiazepine use. She states that Dr. Lemos has been weaning her xanax down. I discussed with her I will continue chronic opaite therapy provided she continue weaning off the xanax, 3. Lumbar spondylosis: Recent Xray show an 8mm spondylollisthesis of L4 on L5 but I am unsure if this is stable or not. I will obtain completion XRAY with flex/extension views./ 2. Chronic Pain with chronic opiate therapy: The risks/benefits of chronic opiate therapy was discussed with patient including failure of therapy, psychological addiction, physiological dependence, and risk withdrawal syndrome. Warning symptoms of potential opiate overuse/overdose were discussed including sedation, somnolence, and altered mentation were reviewed and I counseled patient these symptoms can occur even when patient have been on a stable dose and also can happen despite following physicians instructions. Alternative therapies were discussed including: non-opiate medications, interventional pain procedures, and Cognitive Behavioral Therapy. After discussing these alternatives with the patient, the patient has opted to decline these alternatives at this time. Patient has tried and failed more conservative measures and were either ineffective or intolerant. In my medical opinion non-opiate therapy is not appropriate to address the patient's medical condition at this time and will continue chronic opiate therapy after having addressed efficacy, adverse side effects, and safety of therapy with the patient. Patient verbally agrees. The patient indicates understanding of these issues and agrees with the plan. I reviewed the patient's medical information and medical history. I have reviewed the past medical, family, and social history sections including the medications and allergies listed in the above medical record. Electronically signed by: Isaías Cardenas, 03/22/2019 9:42 AM [facility] 2019-02-27 11:15:00 Subjective: Patient ID: Ibis Tay is a 63 y.o. female. Chief Complaint Patient presents with - Follow-up uti HPI The patient is here today for an ER follow up. She was seen in the ER on 02/17/2019 with the complaint of left back pain. She reports that she was doing mowing about 2 days prior to her ER visit. She anticipated a kidney infection as she had associated dysuria and frequency. Her urinalysis obtained in the ER had slightly cloudy appearance. It was positive for nitrites, had small leukocyte esterase, specific gravity, >=1.030, 20-50 WBCs, and >300 bacteria. Her urine culture showed >100,000 cfu/mL Escherichia coli. She was administered IV morphine 4 mg injection x 2. She was also given Macrobid 100 mg for one dose. She was discharged with a prescription of Cipro 500 mg 1 tablet two times a day for 7 days. She has completed the course of Cipro prescribed in the ER. Her pain has improved than before. Patient reports intermittent urinary urgency for the last 1 year, but denies any associated burning or frequency at present. She has a known history of kidney stones in the past. She denies any fever or chills. The patient has a known history of other chronic back pain for which she is on [place] 5-325 mg 1 tablet up to two times a day. She also has a history of back surgery. She rates her pain as 10/10, reduces to 5/10 after taking the medication. She states that the pain stays in the back and does not radiate down to lower extremities. She describes her pain as constant and aching in nature. The pain aggravates with standing. Patient inquires if she could receive a Toradol injection today. Patient complains of right knee pain. She has failed on conservative therapy. She wanted to undergo [place] cold therapy, but failed to get clearance for coverage from her insurance. Review of Systems General : No weight gain or loss, no loss of appetite, no fever, no chills, no fatigue, no night sweats Skin And lymphatics: No rashes, no skin discolorations, no easy bruising, no lymphadenopathy Head: No headaches, no dizziness, no masses, no seizures Eyes: No visual changes no eye pain Ears: No tinnitus, no vertigo, no hearing loss Nose: No nosebleeds, no discharge, no sinus disease Mouth and throat: Denies dental disease, no hoarseness, no throat pain Respiratory: No cough, no shortness of breath, no sputum production Cardiovascular: No chest pain, no orthopnea, no paroxysmal nocturnal dyspnea, or dyspnea on exertion, no claudication, no edema, no valvular disease Gastrointestinal: No dysphagia, no abdominal pain, no nausea, no vomiting, no hematemesis, no diarrhea, no constipation, no melena, no hematochezia Genitourinary: No dysuria, no frequency, no hesitancy, no hematuria, no discharge, Positive for urinary urgency. Musculoskeletal: Positive for right knee pain and residual left flank pain. Neuropsychiatric: No weakness no seizures, no memory changes, no depression Neurologic: No unilateral or bilateral numbness tingling or weakness, no difficulty with speech, no vision changes, no problems with balance, denies dizziness, denies headache Objective: BP 136/86 Pulse 105 Temp 36.2 C (97.2 F) (Temporal Artery (forehead)) Resp 18 Ht 157.5 cm (5' 2) Wt 66 kg (145 lb 8 oz) SpO2 97% BMI 26.61 kg/m Physical Exam Nursing note and vitals reviewed. Constitutional: . patient appears well-developed and well-nourished. No distress. Head: Normocephalic and atraumatic. Right Ear: External ear normal. no erythema bright tympanic membrane bony landmarks intact Left Ear: External ear normal. No erythema bright tympanic membrane bony landmarks intact Mouth/Throat: No oropharyngeal exudate. Neck: No JVD present. No tracheal deviation present. No thyromegaly present. Cardiovascular: Normal rate, regular rhythm, normal heart sounds and intact distal pulses. Exam reveals no gallop and no friction rub. No murmur heard. Pulmonary/Chest: Effort normal. No respiratory distress. patient has no wheezes. patient has no rales. Patient exhibits no tenderness. Abdominal: Soft. Patient exhibits no distension and no mass. There is no tenderness to palpation. There is no rebound and no guarding. Musculoskeletal: Back examination: She has tenderness to palpation along the lumbar spine. 1. Inspection: standing exam Cervical curve ( convex forward) yes Thoracic curve (concave forward) yes Lumbar curve (convex forward) yes Sacral curve (convex forward) yes 2. Spinal motion: Standing exam Extension lumbar spine (0 to 35 )- 35 Flexion lumbar spine (0-45 )- 45 Lateral bending: to right (0 to 30)- 40 to left (0 to 30 )- 40 Rotation: Rotation (0-45 to right)- 40 Rotation (0-45 to left)- 40 3. General description Gross deformity- no Muscle atrophy- no Abnormal curvature no 4. Palpation Muscle tautness Cervical Paravertebral -no Thoracic paravertebral -no Lumbar paravertebral -no Spinous process Cervical non-tender to palpation Thoracic non-tender to palpation Lumbar tender to palpation Sacroiliac joints nontender 5. Special tests Straight leg raising test- negative bilateral Distracted straight leg raising test - negative bilateral Eulogio's test- negative bilateral Passive hyperextension Active hyperextension Skin: She has a well-healed scar over lower back starting from mid-line of lumbar region and radiates off to the right. She also has a well-healed scar below the left shoulder blade. Assessment/Plan: Problem List Items Addressed This Visit None Visit Diagnoses Urgency of urination - Primary Relevant Orders POCT UA Dipstick only. (Completed) Chronic low back pain without sciatica, unspecified back pain laterality Relevant Medications ketorolac (TORADOL) injection 60 mg (Completed) diclofenac (VOLTAREN) 75 MG EC tablet Other Relevant Orders XR Lumbar Spine 2 or 3 Views (Completed) 1. Urgency of urination Obtained urine dipstick in the office today. - POCT UA Dipstick only. 2. Chronic low back pain without sciatica, unspecified back pain laterality Obtained an x-ray of lumbar spine in the office today. She was administered Toradol 60 mg injection in the office today. She was prescribed diclofenac 75 mg 1 tablet two times a day. - XR Lumbar Spine 2 or 3 Views; Future - ketorolac (TORADOL) injection 60 mg - diclofenac (VOLTAREN) 75 MG EC tablet; Take 1 tablet (75 mg total) by mouth 2 (two) times a day. Dispense: 60 tablet; Refill: 0 The patient indicates understanding of these issues and agrees with the plan. I reviewed the patient's medical information and medical history. I have reviewed the past medical, family, and social history sections including the medications and allergies listed in the above medical record. I, YESSICA PELLETIER, am scribing for and in the presence of Mike Ann Jr., MD. . I have read and agree with the documentation that has been completed regarding this visit and attest, that it is an accurate record of both my words and actions during the visit. . MIKE ANN JR, [facility] 2019-02-27 11:15:00 Patient, Ibis anderson s consent to Mike Ann Jr., MD's use of Augmedix at today's visit. [facility] 2019-02-17 19:21:00 Patient Name: Ibis Tay Date of : 1955 Date of Evaluation: 02/17/2019 Provider: Priyanka Lin MD Chief Complaint Chief Complaint Patient presents with - Flank Pain Patient is reporting left-sided flank pain. Patient is concerned that she may have a possible kidney infection. Has Hx of kidney infections; pain today feels similar. Reports dysuria. History of Present Illness HPI 63-year-old female with left back pain, thinks its a kidney infection. Rates pain as 10 out of 10 in severity, worse with movement. States she thought was a pulled muscle initially but the pain is gotten worse and now she is having dysuria and frequency. No hematuria. No fevers or chills. No nausea vomiting diarrhea or constipation. Takes percocet at home, states it is not helping and she needs something much stronger for pain. Has pain contract with PCP History- Medical/Surgical/Family/Social Past Medical History: Diagnosis Date - Anxiety Takes Xanax - Arthritis - Breast mass 2013 rt axilla - Bronchitis - Bursitis Left hip - Cancer (HCC) 12 left lung cancer, scheduled for left upper lobectomy at [facility] with Dr. Moore - Cervical radiculopathy sees Dr. Cardenas, gets cervical pain injections every 3 months, last done in - COPD (chronic obstructive pulmonary disease) ([facility]) - DDD (degenerative disc disease) - Depression - Dermatological disorder 01/25 irratative dermatitis from insect b ite - Esophageal stricture dilated during upper endoscopy - Generalized anxiety disorder - GERD (gastroesophageal reflux disease) - H. pylori infection Hx of H pylori infection several months ago treated with medication, no current issues. - H/O pyloric stenosis - Hiatal hernia - HTN (hypertension) - Hypercholesteremia - Hyperlipidemia No current medications or issues. - OA (osteoarthritis) of knee - Palpitations with anxiety - Pneumonia 1994 resolved. - PONV (postoperative nausea and vomiting) - PTSD (post-traumatic stress disorder) son was murdered 8 years ago, followed by Dr. Milly Freire - Spinal stenosis cervical - Wears dentures full set - Wears glasses Past Surgical History: Procedure Laterality Date - EGD W BALLOON DILATATION AND BIOPSY PANEL N/A 03/05/2014 Performed by David Sanchez MD at [facility] GI - ESOPHAGEAL DILATION 2012 approx. done with upper endoscopy - KNEE ARTHROPLASTY Right 2010 - LEFT HIP KRISTAL-ARTHROPLASTY Left 09/27/2014 Performed by Isaak Moncada MD at [facility] OR - LEFT UPPER LOBECTOMY / LYMPH NODE DISSECTION Left 10/11/2017 Performed by Angy Moore MD at [facility] CVOR - LUMBAR FUSION 1995 - LUNG LOBECTOMY Left 10/11/2017 Upper - REPAIR / CONSTRUCTION RIGHT THUMB ULNAR COLATERAL LIGAMENT Right 04/05/2018 Performed by Amina Bowman MD at [facility] OR - REPLACEMENT TOTAL JOINT KNEE RIGHT / BETO Right 05/28/2014 Performed by Isaak Moncada MD at [facility] OR - SPINE SURGERY lumbar fusion - TENDON RELEASE Right arm - TOTAL HIP ARTHROPLASTY Left 09/26/14 hip hem-iarthoplasty - TOTAL KNEE ARTHROPLASTY Left 11/23 - TUBAL LIGATION Bilateral - UPPER GASTROINTESTINAL ENDOSCOPY 2012 approx. diagnosed with H. Pylori and esophagus dilated. - UPPER GASTROINTESTINAL ENDOSCOPY Family History Problem Relation Age of Onset - Other Other Hx: Yes Dx: Diabetes Fam Mem: Family h/o - Drug abuse Other - Other Other Hx: Yes Dx: Hypertension Fam Mem: Mother - Drug abuse Other - Hypertension Mother - Heart disease Mother - Diabetes Mother - No Known Problem Father - Other Sister - Cancer Sister - Other Other Hx: Yes Dx: Heart disease Fam Mem: Mother - Diabetes Maternal Grandmother Social History Socioeconomic History - Marital status: Spouse name: Not on file - Number of children: Not on file - Years of education: 14 - Highest education level: Not on file Occupational History - Not on file Social Needs - Financial resource strain: Not on file - Food insecurity: Worry: Not on file Inability: Not on file - Transportation needs: Medical: Not on file Non-medical: Not on file Tobacco Use - Smoking status: Current Every Day Smoker Packs/day: 0.50 Years: 44.00 Pack years: 22.00 Types: Cigarettes - Smokeless tobacco: Current User Substance and Sexual Activity - Alcohol use: No - Drug use: No - Sexual activity: Not on file Lifestyle - Physical activity: Days per week: Not on file Minutes per session: Not on file - Stress: Not on file Relationships - Social connections: Talks on phone: Not on file Gets together: Not on file Attends denominational service: Not on file Active member of club or organization: Not on file Attends meetings of clubs or organizations: Not on file Relationship status: Not on file - Intimate partner violence: Fear of current or ex partner: Not on file Emotionally abused: Not on file Physically abused: Not on file Forced sexual activity: Not on file Other Topics Concern - Not on file Social History Narrative - Not on file Home Medications Prior to Admission medications Medication Sig Start Date End Date Taking? Authorizing Provider alendronate (FOSAMAX) 70 MG tablet Take on empty stomach once weekly sitting upright for full hour after taking with big glass of water. No other meds or food for 1 hour 11/21/18 Mike Ann Jr., MD ALPRAZolam (XANAX) 1 MG tablet TAKE ONE TABLET BY MOUTH THREE TIMES A DAY NEEDED FOR ANXIETY 01/11/19 Parth Lemos MD ARIPiprazole (ABILIFY) 10 MG tablet Take 1 tablet (10 mg total) by mouth once daily. 11/20/18 Parth Lemos MD atorvastatin (LIPITOR) 20 MG tablet TAKE ONE TABLET BY MOUTH DAILY 01/02/19 Mike Ann Jr., MD camphor-menthol (SARNA ANTI-ITCH) lotion Apply topically as needed for itching. 05/19/18 Mike Ann Jr., MD cholecalciferol (VITAMIN D3) 5,000 unit capsule TAKE ONE CAPSULE BY MOUTH DAILY 01/11/19 Mike Ann Jr., MD diaper,brief,adult,disposable Misc 1 application by Miscellaneous route 2 (two) times a day. 12/01/15 Mike Ann Jr., MD diclofenac (VOLTAREN) 50 MG EC tablet Take 1 tablet (50 mg total) by mouth 2 (two) times a day. 01/22/19 01/22/20 Isaías Cardenas MD escitalopram oxalate (LEXAPRO) 20 MG tablet Take 1 tablet (20 mg total) by mouth once daily. 11/20/18 Parth Lemos MD fluticasone propionate (FLOVENT DISKUS) 250 mcg/actuation Disk with Device One inhalation twice daily 11/21/18 Mike Ann Jr., MD food supplemt, lactose-reduced (ENSURE) Liquid Drink 2 bottles per day. Patient requests strawberry. 11/19/16 Mike Ann Jr., MD guaiFENesin 200 mg tablet TAKE THREE TABLETS BY MOUTH TWICE A DAY FOR 10 DAYS 07/07/17 Mike Ann Jr., MD hydroCHLOROthiazide (HYDRODIURIL) 25 MG tablet Take 1 tablet (25 mg total) by mouth once daily. 11/21/18 Mike Ann Jr., MD HYDROcodone-acetaminophen (NORCO) 5-325 mg tablet Take 1-2 tablets by mouth daily as needed for pain. To Last 30days. No early refills Max Daily Amount: 2 tablets 01/22/19 Isaías Cardenas MD HYDROcodone-acetaminophen (NORCO) 5-325 mg tablet Take 1-2 tablets by mouth daily as needed for pain. To last 30days. No early refill Max Daily Amount: 2 tablets 02/21/19 Isaías Cardenas MD hydrOXYzine (ATARAX) 25 MG tablet TAKE ONE TABLET BY MOUTH EVERY 8 HOURS NEEDED FOR ANXIETY 01/11/19 Parth Lemos MD ipratropium-albuterol (DUO-NEB) 0.5-2.5 mg/3 mL nebulizer Inhale 3 mL into the lungs 4 (four) times a day. 08/17/17 Mike Ann Jr., MD Lactobacillus acidoph-pectin (ACIDOPHILUS-PECTIN) 75 million cell -100 mg Capsule Take 1 capsule by mouth 2 (two) times a day. 09/13/17 Mike Ann Jr., MD lisinopril (PRINIVIL,ZESTRIL) 10 MG tablet TAKE ONE TABLET BY MOUTH DAILY 04/18/18 Mike Ann Jr., MD [place] [facility] [place] thumb spica splint 03/16/18 Mike Ann Jr., MD montelukast (SINGULAIR) 10 mg tablet TAKE ONE TABLET BY MOUTH EVERY EVENING 04/13/17 Mike Ann Jr., MD naloxone 2 mg/actuation [place], Non-Aerosol 2 mg by Nasal route as needed. 1-2 daily PRN. Proceed to ER for evaluation immediately following use. 05/16/18 Isaías Cardenas MD nicotine (NICODERM CQ) 21 mg/[address] 1 patch onto the skin every 24 (twenty-four) hours. 04/11/18 Mike Ann Jr., MD omeprazole (PRILOSEC) 40 MG capsule TAKE ONE CAPSULE BY MOUTH DAILY 01/11/19 Mike Ann Jr., MD polyethylene glycol (MIRALAX) 17 gram packet Take 17 g by mouth once daily. 10/15/17 Renee Diaz APRN potassium chloride (KLOR-CON) 10 MEQ CR tablet Take 2 tablets (20 mEq total) by mouth 2 (two) times a day. 11/21/18 Mike Ann Jr., MD potassium chloride (KLOR-CON) 10 MEQ CR tablet TAKE TWO TABLETS BY MOUTH TWICE A DAY 01/11/19 Mike Ann Jr., MD prazosin (MINIPRESS) 1 MG capsule Take 2 capsules (2 mg total) by mouth daily every night. 11/20/18 Parth Lemos MD predniSONE (DELTASONE) 20 MG tablet Take one pill twice daily am and noon for 5 days then one pill daily for two days then one half pill daily for 2 days 01/06/18 Mike Ann Jr., MD PROAIR HFA 90 mcg/actuation inhaler INHALE TWO PUFFS BY MOUTH FOUR TIMES A DAY 10/12/18 Mike Ann Jr., MD QUEtiapine (SEROQUEL) 100 MG tablet Take 1 tablet (100 mg total) by mouth daily every night. 11/20/18 Parth Lemos MD SENNALAX-S 8.6-50 mg TAKE TWO TABLETS BY MOUTH TWICE A DAY Patient taking differently: No sig reported 12/08/16 Mike Ann Jr., MD underpads Pad Use as needed for incontinence 04/30/17 Mike Ann Jr., MD Allergies is allergic to penicillins; gabapentin; sulfa (sulfonamide antibiotics); and wellbutrin [bupropion hcl]. Review of Systems Review of Systems Constitutional: Negative for fever. Gastrointestinal: Negative for abdominal pain. Genitourinary: Positive for dysuria and frequency. Musculoskeletal: Positive for back pain. All other systems reviewed and are negative. Physical Exam ED Triage Vitals [02/17/19 1902] BP: 173/77 Heart Rate: 98 Pulse Rate : n/a Temp: 37.2 C (99 F) Temp src: n/a Resp: 20 SpO2: 96 % BP 150/82 (BP Location: Left arm, Patient Position: Sitting) Pulse 83 Temp 37.2 C (99 F) (Oral) Resp 18 Ht 5' 2 (1.575 m) Wt 65.8 kg (145 lb) SpO2 95% BMI 26.52 kg/m Physical Exam Constitutional: She is oriented to person, place, and time. She appears distressed. HENT: Mouth/Throat: Oropharynx is clear and moist. Eyes: EOM are normal. Pupils are equal, round, and reactive to light. Neck: Neck supple. Cardiovascular: Normal rate and regular rhythm. Pulmonary/Chest: Effort normal and breath sounds normal. Abdominal: Soft. She exhibits no distension. There is no tenderness. There is no rebound and no guarding. Left CVA tenderness Neurological: She is alert and oriented to person, place, and time. She exhibits normal muscle tone. Skin: Capillary refill takes less than 2 seconds. Psychiatric: Her speech is normal. Her mood appears anxious. Nursing note and vitals reviewed. Lab Results Emergency department lab results reviewed. Results for orders placed or performed during the hospital encounter of 02/17/19 URINE CULTURE Result Value Ref Range Microbiolgy Preliminary Report (A) >100,000 cfu/ml Escherichia coli Susceptibility to follow. Organism ID, Bacteria Escherichia coli (A) Urinalysis with culture, if indicated Result Value Ref Range Color, UA Yellow Yellow Appearance Sl. Cloudy (A) Clear Glucose, UA Negative Negative Bilirubin, UA Negative Negative Ketones, UA Negative Negative Specific [place], UA >=1.030 (A) <=1.030 Blood, UA Negative Negative pH, UA 5.5 4.5 - 8.0 Protein, UA Negative Negative Urobilinogen, UA 0.2 0.2 - 1.0 EU/dl Nitrite, UA Positive (A) Negative Leukocyte Esterase Small (A) Negative RBC, UA Absent <=5 WBC, UA 20-50 (A) <=5 Bacteria, UA >300 (A) <=10 Squam Epithelial cells, UA 2-5 <=5 Culture Ordered? Yes Radiology Results ED Course Procedures given morphine IV on arrival and continue to call out quite frequently stating she needs something stronger for pain. Vitals stable, no fever. Past urine culture + for Ecoli sensitive to all agents Diagnosis Clinical Impression Diagnosis Comment Added By Time Added Pyelonephritis Priyanka Lin MD 02/17/2019 8:19 PM Disposition Discharge [1] - 02/17/2019 8:22 PM Prescriptions Discharge Medication List as of 02/17/2019 8:22 PM CONTINUE these medications which have NOT CHANGED Details alendronate (FOSAMAX) 70 MG tablet Take on empty stomach once weekly sitting upright for full hour after taking with big glass of water. No other meds or food for 1 hour, Normal ALPRAZolam (XANAX) 1 MG tablet TAKE ONE TABLET BY MOUTH THREE TIMES A DAY NEEDED FOR ANXIETY, Normal ARIPiprazole (ABILIFY) 10 MG tablet Take 1 tablet (10 mg total) by mouth once daily., Starting Tue11/20/2018, Normal atorvastatin (LIPITOR) 20 MG tablet TAKE ONE TABLET BY MOUTH DAILY, Normal camphor-menthol (SARNA ANTI-ITCH) lotion Apply topically as needed for itching., Starting 05/19/2018, Until Discontinued, Normal cholecalciferol (VITAMIN D3) 5,000 unit capsule TAKE ONE CAPSULE BY MOUTH DAILY, Normal diaper,brief,adult,disposable Misc 1 application by Miscellaneous route 2 (two) times a day., Starting 12/01/2015, Until Discontinued, Normal diclofenac (VOLTAREN) 50 MG EC tablet Take 1 tablet (50 mg total) by mouth 2 (two) times a day., Starting Tue01/22/2019, Until Tue01/22/2020, Normal escitalopram oxalate (LEXAPRO) 20 MG tablet Take 1 tablet (20 mg total) by mouth once daily., Starting Tue11/20/2018, Normal fluticasone propionate (FLOVENT DISKUS) 250 mcg/actuation Disk with Device One inhalation twice daily, Normal food supplemt, lactose-reduced (ENSURE) Liquid Drink 2 bottles per day. Patient requests strawberry., Normal guaiFENesin 200 mg tablet TAKE THREE TABLETS BY MOUTH TWICE A DAY FOR 10 DAYS, Normal hydroCHLOROthiazide (HYDRODIURIL) 25 MG tablet Take 1 tablet (25 mg total) by mouth once daily., Starting Tue11/21/2018, Normal !! HYDROcodone-acetaminophen (NORCO) 5-325 mg tablet Take 1-2 tablets by mouth daily as needed for pain. To Last 30days. No early refills Max Daily Amount: 2 tablets, Starting Tue01/22/2019, Normal !! HYDROcodone-acetaminophen (NORCO) 5-325 mg tablet Take 1-2 tablets by mouth daily as needed for pain. To last 30days. No early refill Max Daily Amount: 2 tablets, Starting Tue02/21/2019, Normal hydrOXYzine (ATARAX) 25 MG tablet TAKE ONE TABLET BY MOUTH EVERY 8 HOURS NEEDED FOR ANXIETY, Normal ipratropium-albuterol (DUO-NEB) 0.5-2.5 mg/3 mL nebulizer Inhale 3 mL into the lungs 4 (four) times a day., Starting 08/17/2017, Until Discontinued, Normal Lactobacillus acidoph-pectin (ACIDOPHILUS-PECTIN) 75 million cell -100 mg Capsule Take 1 capsule by mouth 2 (two) times a day., Starting 09/13/2017, Until Discontinued, Normal lisinopril (PRINIVIL,ZESTRIL) 10 MG tablet TAKE ONE TABLET BY MOUTH DAILY, Normal miscellaneous medical supply Misc Use right hand thumb spica splint, Print montelukast (SINGULAIR) 10 mg tablet TAKE ONE TABLET BY MOUTH EVERY EVENING, Normal naloxone 2 mg/actuation [place], Non-Aerosol 2 mg by Nasal route as needed. 1-2 daily PRN. Proceed to ER for evaluation immediately following use., Starting 05/16/2018, Until Discontinued, Phone In nicotine (NICODERM CQ) 21 mg/[address] 1 patch onto the skin every 24 (twenty-four) hours., Starting 04/11/2018, Until Discontinued, Normal omeprazole (PRILOSEC) 40 MG capsule TAKE ONE CAPSULE BY MOUTH DAILY, Normal polyethylene glycol (MIRALAX) 17 gram packet Take 17 g by mouth once daily., Starting 10/15/2017, Until Discontinued, Normal !! potassium chloride (KLOR-CON) 10 MEQ CR tablet Take 2 tablets (20 mEq total) by mouth 2 (two) times a day., Starting Tue11/21/2018, Normal !! potassium chloride (KLOR-CON) 10 MEQ CR tablet TAKE TWO TABLETS BY MOUTH TWICE A DAY, Normal prazosin (MINIPRESS) 1 MG capsule Take 2 capsules (2 mg total) by mouth daily every night., Starting Tue11/20/2018, Normal predniSONE (DELTASONE) 20 MG tablet Take one pill twice daily am and noon for 5 days then one pill daily for two days then one half pill daily for 2 days, Normal PROAIR HFA 90 mcg/actuation inhaler INHALE TWO PUFFS BY MOUTH FOUR TIMES A DAY, Normal QUEtiapine (SEROQUEL) 100 MG tablet Take 1 tablet (100 mg total) by mouth daily every night., Starting Tue11/20/2018, Normal SENNALAX-S 8.6-50 mg TAKE TWO TABLETS BY MOUTH TWICE A DAY, Normal underpads Pad Use as needed for incontinence, Normal !! - Potential duplicate medications found. Please discuss with provider. Follow Up Mike Ann Jr., MD [address] [facility] [address] [facility] [id number] Schedule an appointment as soon as possible for a visit FOLLOW UP FOR RECHECK. RETURN IF FEVER, VOMITING OR OTHER PROBLEMS MDM Priyanka Lin MD 02/18/19 [id number] [facility] 2019-01-22 08:30:00 OFFICE VISIT CHIEF COMPLAINT Back Pain SUBJECTIVE Ibis Tay is a 63 y.o. female who presents for follow-up of Back Pain with diagnosis of: 1. cervical stenosis with radiculopathy. 2. 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 Headaches With last encounter we resumed chronic opiate therapy with hydrocodone 5/325 1-2 po qday. She continues with pain that is worsening in her neck radaiting to her UE bilaterally. She notes that her neck and low back pain is stable. However, she has been having increasing RIGHT knee pain. She notes that she has had prior knee replacement surgery but her PCP is sending her to orthopedics for evaluation Patient currently is on Hydrocodone 5/325 1-2 po qday states the medication is not effective giving the average pain rating of: 7/10 and feels that the pain is not manageable. New or changing adverse side effects:none New or changing pain complaints:none Other concerns: none ROS Constitutional: denies dizziness, sedation, or somnolence Psychological: denies altered mentation or euphoria GI: deniesconstipation or diarrhea Musc: denies acute change in numbness, weakness, or tingling of extemities MEDICATIONS Current Outpatient Medications Medication Sig Dispense Refill - alendronate (FOSAMAX) 70 MG tablet Take on empty stomach once weekly sitting upright for full hour after taking with big glass of water. No other meds or food for 1 hour 4 tablet 0 - ALPRAZolam (XANAX) 1 MG tablet TAKE ONE TABLET BY MOUTH THREE TIMES A DAY NEEDED FOR ANXIETY 90 tablet 2 - ARIPiprazole (ABILIFY) 10 MG tablet Take 1 tablet (10 mg total) by mouth once daily. 30 tablet 3 - atorvastatin (LIPITOR) 20 MG tablet TAKE ONE TABLET BY MOUTH DAILY 90 tablet 0 - camphor-menthol (SARNA ANTI-ITCH) lotion Apply topically as needed for itching. 222 mL 11 - cholecalciferol (VITAMIN D3) 5,000 unit capsule TAKE ONE CAPSULE BY MOUTH DAILY 30 capsule 5 - diaper,brief,adult,disposable Misc 1 application by Miscellaneous route 2 (two) times a day. 96 each 5 - escitalopram oxalate (LEXAPRO) 20 MG tablet Take 1 tablet (20 mg total) by mouth once daily. 30 tablet 5 - fluticasone propionate (FLOVENT DISKUS) 250 mcg/actuation Disk with Device One inhalation twice daily 60 each 0 - food supplemt, lactose-reduced (ENSURE) Liquid Drink 2 bottles per day. Patient requests strawberry. [id number] mL PRN - guaiFENesin 200 mg tablet TAKE THREE TABLETS BY MOUTH TWICE A DAY FOR 10 DAYS 60 tablet 0 - hydroCHLOROthiazide (HYDRODIURIL) 25 MG tablet Take 1 tablet (25 mg total) by mouth once daily. 30 tablet 0 - HYDROcodone-acetaminophen (NORCO) 5-325 mg tablet Take 1-2 tablets by mouth daily as needed for pain. To Last 30days. No early refills Max Daily Amount: 2 tablets 60 tablet 0 - [START ON 02/21/2019] HYDROcodone-acetaminophen (NORCO) 5-325 mg tablet Take 1-2 tablets by mouth daily as needed for pain. To last 30days. No early refill Max Daily Amount: 2 tablets 60 tablet 0 - hydrOXYzine (ATARAX) 25 MG tablet TAKE ONE TABLET BY MOUTH EVERY 8 HOURS NEEDED FOR ANXIETY 60 tablet 3 - ipratropium-albuterol (DUO-NEB) 0.5-2.5 mg/3 mL nebulizer Inhale 3 mL into the lungs 4 (four) times a day. 360 vial 3 - Lactobacillus acidoph-pectin (ACIDOPHILUS-PECTIN) 75 million cell -100 mg Capsule Take 1 capsule by mouth 2 (two) times a day. 60 capsule 0 - lisinopril (PRINIVIL,ZESTRIL) 10 MG tablet TAKE ONE TABLET BY MOUTH DAILY 90 tablet 1 - miscellaneous medical [place] [facility] [place] hand thumb spica splint 1 each 0 - montelukast (SINGULAIR) 10 mg tablet TAKE ONE TABLET BY MOUTH EVERY EVENING 30 tablet 4 - naloxone 2 mg/actuation [place], Non-Aerosol 2 mg by Nasal route as needed. 1-2 daily PRN. Proceed to ER for evaluation immediately following use. 4 each 1 - nicotine (NICODERM CQ) 21 mg/[address] 1 patch onto the skin every 24 (twenty-four) hours. 28 patch 1 - omeprazole (PRILOSEC) 40 MG capsule TAKE ONE CAPSULE BY MOUTH DAILY 30 capsule 5 - polyethylene glycol (MIRALAX) 17 gram packet Take 17 g by mouth once daily. 14 each 0 - potassium chloride (KLOR-CON) 10 MEQ CR tablet Take 2 tablets (20 mEq total) by mouth 2 (two) times a day. 60 tablet 0 - potassium chloride (KLOR-CON) 10 MEQ CR tablet TAKE TWO TABLETS BY MOUTH TWICE A DAY 120 tablet 4 - prazosin (MINIPRESS) 1 MG capsule Take 2 capsules (2 mg total) by mouth daily every night. 60 capsule 4 - predniSONE (DELTASONE) 20 MG tablet Take one pill twice daily am and noon for 5 days then one pill daily for two days then one half pill daily for 2 days 13 tablet 0 - PROAIR HFA 90 mcg/actuation inhaler INHALE TWO PUFFS BY MOUTH FOUR TIMES A DAY 8.5 each 2 - QUEtiapine (SEROQUEL) 100 MG tablet Take 1 tablet (100 mg total) by mouth daily every night. 30 tablet 3 - SENNALAX-S 8.6-50 mg TAKE TWO TABLETS BY MOUTH TWICE A DAY (Patient taking differently: No sig reported) 120 tablet 10 - underpads Pad Use as needed for incontinence 300 each 10 No current facility-administered medications for this visit. ALLERGIES Allergies Allergen Reactions - Penicillins Anaphylaxis - Gabapentin Other (See Comments) severe fatigue - Sulfa (Sulfonamide Antibiotics) Other (See Comments) Blisters inside and outside of mouth. - Wellbutrin [Bupropion Hcl] Other (See Comments) Body numbness and tingling PHYSICAL EXAM Vital Signs: BP 124/75 (BP Location: Left arm) Pulse 103 Resp 13 Wt 64.8 kg (142 lb 14.4 oz) BMI 26.14 kg/m Constitutional: Well nourished, well groomed, NAD. CARDIAC: Regular Rate LUNGS: Breathing nonlabored, no wheezing Neurologic: Alert & oriented x 3, normal gait, no focal deficits noted. Psychiatric: Affect normal, judgment normal, mood normal. Other Affected BA/OS: Neck pain with extension, pain radiating To LUE with parasthesias. ASSESSMENT AND PLAN Problem List Items Addressed This Visit None Visit Diagnoses Failed back syndrome - Primary Relevant Medications HYDROcodone-acetaminophen (NORCO) 5-325 mg tablet HYDROcodone-acetaminophen (NORCO) 5-325 mg tablet (Start on 02/21/2019) Spinal stenosis in cervical region Relevant Medications HYDROcodone-acetaminophen (NORCO) 5-325 mg tablet HYDROcodone-acetaminophen (NORCO) 5-325 mg tablet (Start on 02/21/2019) 2. LEFT Hip fracture 3. Low back pain Requested Prescriptions Signed Prescriptions Disp Refills - HYDROcodone-acetaminophen (NORCO) 5-325 mg tablet 60 tablet 0 Sig: Take 1-2 tablets by mouth daily as needed for pain. To Last 30days. No early refills Max Daily Amount: 2 tablets - HYDROcodone-acetaminophen (NORCO) 5-325 mg tablet 60 tablet 0 Sig: Take 1-2 tablets by mouth daily as needed for pain. To last 30days. No early refill Max Daily Amount: 2 tablets PLAN: 1. cervical stenosis with radiculopathy. I discussed with her that I would like to change her to continue hydroodone 5/325 1-2 po qday to decrease the overall opiate load and would rather repeat the cervical WAQAR sooner in order to use less opiate medication. She understands and agrees. 2. Bilateral Knee pain R>>L: She has had prior knee replacement surgery but is having severe knee pain on the right. I discussed therapeutic alternatives to her knee pain and discussed with her genicular nerve block followed by rhizotomy if the nerve block is diagnostic. In the interim I will trial her on diclofenac 50mg bid 2. Chronic Pain with chronic opiate therapy: The risks/benefits of chronic opiate therapy was discussed with patient including failure of therapy, psychological addiction, physiological dependence, and risk withdrawal syndrome. Warning symptoms of potential opiate overuse/overdose were discussed including sedation, somnolence, and altered mentation were reviewed and I counseled patient these symptoms can occur even when patient have been on a stable dose and also can happen despite following physicians instructions. Alternative therapies were discussed including: non-opiate medications, interventional pain procedures, and Cognitive Behavioral Therapy. After discussing these alternatives with the patient, the patient has opted to decline these alternatives at this time. Patient has tried and failed more conservative measures and were either ineffective or intolerant. In my medical opinion non-opiate therapy is not appropriate to address the patient's medical condition at this time and will continue chronic opiate therapy after having addressed efficacy, adverse side effects, and safety of therapy with the patient. Patient verbally agrees. The patient indicates understanding of these issues and agrees with the plan. I reviewed the patient's medical information and medical history. I have reviewed the past medical, family, and social history sections including the medications and allergies listed in the above medical record. Electronically signed by: Isaías Cardenas, 01/22/2019 8:37 AM [facility] 2018-12-22 11:00:00 Medicare Annual Well ness Physical (Second Visit) Must be at least 12 months post Initial Medicare Visit or never received Welcome to Medicare in first year CPT Code is G0438 Billing Advice includes: Review of Medical/Family history Measurement of height, weight, BMI, BP and others as needed List of patient care team Screening for depression, ADL, Cognition and Falls Review of health risk factors HM list Provide a written list of risk factors and screening tests to patient in the patient instructions Advance Directive Planning Chief Complaint: Chief Complaint Patient presents with - Annual Exam - Knee Pain Rt knee - Allergies seasonal allergies, wants steroid shot HPI: Ibis Tay is a 63 y.o. female who is here for her Medicare Annual Wellness physical exam. She describes her current health as poor.. She is currently disabled. Her diet is described as fair. Her exercise level is not active. She is not sexually active. Her immunizations have been reviewed. Her age appropriate risk factors for cardiovascular disease, sexual risk, lifestyle risk have been reviewed and addressed. The patient complains of right knee soreness and stiffness for the last 1 month. She underwent right knee replacement about 4-5 years ago. She could not recall any recent injury. She denies any associated fever or chills. Patient inquires if she could receive Toradol injection today as it has slightly helped her in the past. The patient has a history of seasonal allergies. She reports rhinorrhea and itchy eyes today. She is mowing grass once a week, and anticipates that her symptoms might be flared secondary to that. She would like to receive Kenalog injection today. She was screened for falls risk, depression, functional ability and cognitive impairment within the past year. The results and plan are detailed below. ROS: Review of Systems General : No weight gain or loss, no loss of appetite, no fever, no chills, no fatigue, no night sweats Skin And lymphatics: No rashes, no skin discolorations, no easy bruising, no lymphadenopathy Head: No headaches, no dizziness, no masses, no seizures Eyes: No visual changes no eye pain, positive for itchy eyes Ears: No tinnitus, no vertigo, no hearing loss Nose: No nosebleeds, positive for discharge, no sinus disease Mouth and throat: Denies dental disease, no hoarseness, no throat pain Respiratory: No cough, no shortness of breath, no sputum production Cardiovascular: No chest pain, no orthopnea, no paroxysmal nocturnal dyspnea, or dyspnea on exertion, no claudication, no edema, no valvular disease Gastrointestinal: No dysphagia, no abdominal pain, no nausea, no vomiting, no hematemesis, no diarrhea, no constipation, no melena, no hematochezia Genitourinary: No dysuria, no frequency, no hesitancy, no hematuria no discharge Musculoskeletal: Positive for right knee pain Neuropsychiatric: No weakness no seizures, no memory changes, no depression Neurologic: No unilateral or bilateral numbness tingling or weakness, no difficulty with speech, no vision changes, no problems with balance, denies dizziness, denies headache Allergies and Medications: Allergies Allergen Reactions - Penicillins Anaphylaxis - Gabapentin Other (See Comments) severe fatigue - Sulfa (Sulfonamide Antibiotics) Other (See Comments) Blisters inside and outside of mouth. - Wellbutrin [Bupropion Hcl] Other (See Comments) Body numbness and tingling Chronic Problem List: Patient Active Problem List Diagnosis Date Noted - Compression fracture of body of thoracic vertebra ([facility]) 05/21/2018 - Non-small cell carcinoma of lung ([facility]) 05/21/2018 - Right hand pain - Urinary tract infection without hematuria 11/18/2017 - Fall at home, sequela 11/18/2017 - Acute cystitis without hematuria 11/02/2017 - Malignant neoplasm of upper lobe, left bronchus or lung ([facility]) 10/11/2017 - Lung cancer ([facility]) 08/30/2017 - Mediastinal lymphadenopathy 08/30/2017 - Adenocarcinoma of lung, left ([facility]) - Other chest pain 07/06/2017 - Pulmonary nodule 07/06/2017 - Severe sepsis ([facility]) - Pneumonia of left lower lobe due to infectious organism 07/01/2017 - Community acquired pneumonia 06/03/2017 - COPD exacerbation ([facility]) 06/03/2017 - Hypoxia 06/03/2017 - Dyslipidemia 04/15/2017 - Vitamin D deficiency 02/08/2017 - Anxiety state 01/30/2015 - Pain in joint, lower leg 01/30/2015 - Routine general medical examination at a health care facility 01/30/2015 - Osteoarthritis of knee 01/30/2015 - S/P total knee arthroplasty 01/07/2015 - S/P hip hemiarthroplasty- Left 01/07/2015 - Depression 11/19/2014 - Hip fracture, left ([facility]) 09/26/2014 - Knee osteoarthritis 05/28/2014 - Knee joint replacement status 05/28/2014 - Trochanteric bursitis 05/24/2014 - History of total knee arthroplasty 04/02/2014 - Knee pain 04/02/2014 - Screening 03/05/2014 - Cervical spondylosis with myelopathy 07/02/2013 - Spinal stenosis 10/10/2012 - Anxiety state 04/03/2012 - Cervical disc disease 04/03/2012 - Cervical radiculopathy 04/03/2012 - Hypercholesteremia 02/15/2011 - Hyperlipidemia 02/15/2011 - Anxiety attack 02/15/2011 - Generalized anxiety disorder 02/15/2011 - Smoker 02/15/2011 - Essential hypertension 02/15/2011 - Acute bronchitis 02/15/2011 - AR (allergic rhinitis) 02/15/2011 - GERD (gastroesophageal reflux disease) 02/15/2011 - Osteoarthritis of right knee 02/15/2011 - Arthritis 02/15/2011 - DDD (degenerative disc disease) 02/15/2011 - Back pain 02/15/2011 Immunization History: Immunization History Administered Date(s) Administered - Influenza TIV (IM) 03/24/2010, 05/01/2012 - Influenza Three-TIV Non-Preservative Free 3+ Years IM 04/17/2014 - Pneumococcal Conjugate (Prevnar) 13-Valent 06/15/2016 - Pneumococcal Polysaccharide (Pneumovax) 03/18/2009, 04/18/2014 - Td Preservative Free 7+ Years IM 01/29/2013 - Tdap 04/15/2009, 12/29/2016 Past Medical/Surgical History: Past Medical History: Diagnosis Date - Anxiety Takes Xanax - Arthritis - Breast mass 2013 rt axilla - Bronchitis - Bursitis Left hip - Cancer (HCC) 12 left lung cancer, scheduled for left upper lobectomy at [facility] with Dr. Moore - Cervical radiculopathy sees Dr. Cardenas, gets cervical pain injections every 3 months, last done in - COPD (chronic obstructive pulmonary disease) ([facility]) - DDD (degenerative disc disease) - Depression - Dermatological disorder 01/25 irratative dermatitis from insect b ite - Esophageal stricture dilated during upper endoscopy - Generalized anxiety disorder - GERD (gastroesophageal reflux disease) - H. pylori infection Hx of H pylori infection several months ago treated with medication, no current issues. - H/O pyloric stenosis - Hiatal hernia - HTN (hypertension) - Hypercholesteremia - Hyperlipidemia No current medications or issues. - OA (osteoarthritis) of knee - Palpitations with anxiety - Pneumonia 1994 resolved. - PONV (postoperative nausea and vomiting) - PTSD (post-traumatic stress disorder) son was murdered 8 years ago, followed by Dr. Milly Freire - Spinal stenosis cervical - Wears dentures full set - Wears glasses Past Surgical History: Procedure Laterality Date - EGD W BALLOON DILATATION AND BIOPSY PANEL N/A 03/05/2014 Performed by David Sanchez MD at [facility] GI - ESOPHAGEAL DILATION 2012 approx. done with upper endoscopy - KNEE ARTHROPLASTY Right 2010 - LEFT HIP KRISTAL-ARTHROPLASTY Left 09/27/2014 Performed by Isaak Moncada MD at [facility] OR - LEFT UPPER LOBECTOMY / LYMPH NODE DISSECTION Left 10/11/2017 Performed by Angy Moore MD at [facility] CVOR - LUMBAR FUSION 1995 - LUNG LOBECTOMY Left 10/11/2017 Upper - REPAIR / CONSTRUCTION RIGHT THUMB ULNAR COLATERAL LIGAMENT Right 04/05/2018 Performed by Amina Bowman MD at [facility] OR - REPLACEMENT TOTAL JOINT KNEE RIGHT / BETO Right 05/28/2014 Performed by Isaak Moncada MD at [facility] OR - SPINE SURGERY lumbar fusion - TENDON RELEASE Right arm - TOTAL HIP ARTHROPLASTY Left 09/26/14 hip hem-iarthoplasty - TOTAL KNEE ARTHROPLASTY Left 11/23 - TUBAL LIGATION Bilateral - UPPER GASTROINTESTINAL ENDOSCOPY 2012 approx. diagnosed with H. Pylori and esophagus dilated. - UPPER GASTROINTESTINAL ENDOSCOPY Family History: Family History Problem Relation Age of Onset - Other Other Hx: Yes Dx: Diabetes Fam Mem: Family h/o - Drug abuse Other - Other Other Hx: Yes Dx: Hypertension Fam Mem: Mother - Drug abuse Other - Hypertension Mother - Heart disease Mother - Diabetes Mother - No Known Problem Father - Other Sister - Cancer Sister - Other Other Hx: Yes Dx: Heart disease Fam Mem: Mother - Diabetes Maternal Grandmother Extended Social History: Social History Socioeconomic History - Marital status: Spouse name: Not on file - Number of children: Not on file - Years of education: 14 - Highest education level: Not on file Occupational History - Not on file Social Needs - Financial resource strain: Not on file - Food insecurity: Worry: Not on file Inability: Not on file - Transportation needs: Medical: Not on file Non-medical: Not on file Tobacco Use - Smoking status: Current Every Day Smoker Packs/day: 0.50 Years: 44.00 Pack years: 22.00 Types: Cigarettes - Smokeless tobacco: Current User Substance and Sexual Activity - Alcohol use: No - Drug use: No - Sexual activity: Not on file Lifestyle - Physical activity: Days per week: Not on file Minutes per session: Not on file - Stress: Not on file Relationships - Social connections: Talks on phone: Not on file Gets together: Not on file Attends denominational service: Not on file Active member of club or organization: Not on file Attends meetings of clubs or organizations: Not on file Relationship status: Not on file - Intimate partner violence: Fear of current or ex partner: Not on file Emotionally abused: Not on file Physically abused: Not on file Forced sexual activity: Not on file Other Topics Concern - Not on file Social History Narrative - Not on file Education and Employment Education Level: Some College or Technical School Employment: Unemployed Experience: No Living Conditions Marital Status: Children: Yes Comments: 1 son and 1 daughter Safety Feel Safe In Home and With Partner?: Yes Patient Devices Glasses: Yes Lifestyle Baptist Affiliation: Yazidi Spirituality: yes Diet: Other Care Team: Patient Care Team: Mike Ann Jr., MD as PCP - General Nu Ross RN as Oncology Nurse Navigator Parth Lemos MD as Psychiatrist Objective: No exam data present VS: BP 122/64 Pulse 91 Resp Temp 36.3 C (97.3 F) (Temporal) SpO2 94% Wt 65.8 kg (145 lb) Ht Body mass index is 26.52 kg/m . PE: Physical Exam Nursing note and vitals reviewed. Constitutional: . patient appears well-developed and well-nourished. No distress. Head: Normocephalic and atraumatic. Right Ear: External ear normal. no erythema bright tympanic membrane bony landmarks intact Left Ear: External ear normal. No erythema bright tympanic membrane bony landmarks intact Mouth/Throat: No oropharyngeal exudate. She has upper and lower dentures. Tonsils present. Neck: No JVD present. No tracheal deviation present. No thyromegaly present. Cardiovascular: Normal rate, regular rhythm, normal heart sounds and intact distal pulses. Exam reveals no gallop and no friction rub. No murmur heard. Pulmonary/Chest: Effort normal. No respiratory distress. patient has no wheezes. patient has no rales. Patient exhibits no tenderness. Abdominal: Soft. Patient exhibits no distension and no mass. There is no tenderness to palpation. There is no rebound and no guarding. Musculoskeletal: Knee examination: Her right knee is slightly warm as compared to left knee. She does not have significant ballotable fluid. She has generalized tenderness on the right knee. No carr's cyst noted. 1. Inspection: When standing or walking Valgus (knock kneed) versus varus (Bowing)? Neither Any limp? No Scars or asymmetry? No Muscle atrophy (quadriceps, hamstring, or calf muscles) no Patella well-positioned Patellar tendon normal to inspection Quadriceps/hamstring/calf muscles normal to inspection Medial and lateral joint lines- no bulging fluid Femur and tibia- no deformity Tibial tuberosity -no deformity 2. Palpation and examination of knee Range of motion (0-140 of full extension to full flexion): 0-140 Passive - 0-140 Active- 0-140 Effusion Ballotable knee- no ballotable effusion Prepatellar bursa - no bursal sac prominence palpation Joint line tenderness Medial --tender to palpation Lateral- -tender to palpation Malachi's test- negative bilateral Anterior drawer test -negative bilateral Posterior drawer test- negative bilateral Lateral collateral ligament testing- intact bilateral Medial collateral ligament testing- intact bilateral Skin: Her bilateral knees have well-healed scar. Assessment/Plan: Problem List Items Addressed This Visit Knee pain Relevant Medications ketorolac (TORADOL) injection 60 mg (Completed) Other Relevant Orders XR Knee 3 Views Right (Completed) Ambulatory referral to Orthopedic Surgery Other Visit Diagnoses Annual physical exam - Primary Seasonal allergies Relevant Medications triamcinolone acetonide (KENALOG-40) injection 60 mg (Completed) Hypercholesterolemia Relevant Orders LDL cholesterol, direct Hyperglycemia Relevant Orders Hemoglobin A1c 1. Annual physical exam Adult immunization scheduled reviewed suggested tetanus diphtheria 1 dose booster every 10 years consider single-dose pertussis update every 10 years as well,elective annual influenza vaccination , consider herpes zoster vaccination once age 60 year-old or older, suggested height weight blood pressure and BMI checks every 1-2 years, clinical breast exam every year digital rectal exam annually age 50 or greater, if previous pelvic exam and Pap smear normal then consider repeat every 3-5 year, discussed screening mammogram every 1-2 years, nutritional assessment and weight l yearly discussed injury prevention with seat belts and helmet use ,discussed smoking cessation as appropriate, safe sex counseling and encouraged regular aerobic exercise 30 minutes 5 times weekly Recommended eating fresh fruits, vegetables, and grain products. Patient was advised to avoid eating chips, dips, crackers, cookies, desserts, and processed foods. Recommended keeping herself well-hydrated, and drinking 6-8 glasses of water a day. Advised to do aerobic exercises including walking-march or arm bicycling at least 30 minutes a day 5 times a week. Patient was advised to receive at least 2 hours of sunshine every morning. Advised to use SPF 50 or greater every couple of hours to avoid any skin damage from skin exposure. 2. Acute pain of right knee Obtained an x-ray of left knee in the office today. The patient was administered Toradol 60 mg injection in the office today. - XR Knee 3 Views Right; Future - ketorolac (TORADOL) injection 60 mg - Ambulatory referral to Orthopedic Surgery 3. Seasonal allergies The patient was administered Kenalog-40 60 mg injection in the office today. - triamcinolone acetonide (KENALOG-40) injection 60 mg 4. Hypercholesterolemia Ordered a blood work to obtain LDL. We will call the patient with results. Goal HDL of 50 or greater. Goal LDL less than 100 and goal of triglycerides less than 150. aerobic exercise 30 minutes 5 times weekly Patient needs to decrease red meat, increase fish/ fowl and grains in their diet as well as fruits and vegetables. Patient should get more than 50% of total calories from whole grain, fruits and vegetables, fiber 20-30 g per day, dietary fat should be no more than 25-35% of total calories and protein about 15% of total calories. Adding in an omega-3 fatty acids such as a fish oil and/or adding tree nuts also seems to help. - LDL cholesterol, direct 5. Hyperglycemia Ordered a blood work to obtain HbA1c. We will call the patient with results. Continue current medication regimen. Goal A1c 7 or less. Daily aerobic exercise 30 minutes daily 5 times per week. - Hemoglobin A1c 6. Malignant neoplasm of upper lobe, left bronchus or lung (HCC) patient keep follow-up with oncology 7. Status post total bilateral knee replacement suggest follow-up with orthopedics no clear evidence for loosening on x-ray concern on clinical basis patient has no fever or chills consideration for CBC sedimentation rate C-reactive protein if symptoms do not improve Screening Tools Assessment/Documentation: Falls Screen: (Positive response to any questions place patient at increased risk of falls) Fall Screening Score: negative Plan: No intervention needed-No fall risk found. Depression Screen: (PHQ9 > 10 Likely Major Depression, 5-9 = Mild depression, 10-14= Moderate depression, 15-19 Moderately severe depression, > 20 =severe depression) PHQ2 = PHQ-2 Score: 0 (12/22/18 1146) PHQ9= Plan: patient currently treated with medication and/or therapy. Rates her mood as 7/10 today. Functional Assessment: (Patients who need assistance or are dependent should be assessed for any home assistance needs) ADL/IADL screen: Independent Plan: No current risk or needs. CognitiveScreen: (Minicognitive >11 screening normal , MMSE >than 27 is normal (24 if only grade or middle school), 19-26 indicates mild cognitive impairment and rescreening in 6 months to one year is indicated if the index of suspicion is low. A Score of 12-19 indicates mild to moderate dementia and treatment should be initiated along with referral for further testing if indicated. Scores less than 12 indicate moderate to severe dementia and treatment should be continued or increased. Consideration for home care or SNF care should be undertaken) Minicog total = MMSE total = Plan: Normal Cognition no needs identified. Advance Directives Discussion: (If patient does not have any advance directives on file, the advance directives should be printed out and given to patient as part of the visit summary) Advance Directives have been reviewed with Ibis Tay and/or family: Discussed advance directives with patient and Form given if needed She is full code, but if she is unrecoverable then she is a no code. She nominated her grand-daughter as her durable power of disability attorney. 5-10 Year Screening Plan [place] Score =The CVD Risk score (Jose Angel'Agostino, et al., 2008) failed to calculate for the following reasons: The patient has a prior ID, stroke, CHF, or peripheral vascular disease diagnosis CAD risk factors: Smoking Sexual Risk =not currently sexually active Lifestyle risk = smoking Health Maintenance Topic Date Due - CERVICAL CANCER SCREENING PAP ONLY EVERY 3 YEARS (Age 21-65) 1974 - COLON CANCER SCREENING COLONOSCOPY 2003 - SHINGLES VACCINES (1 of 2) 2003 - Falls Risk Screening Every 1 Year 65+ (Default) 07/18/2018 - DXA SCAN 01/17/2019 - INFLUENZA VACCINE (Season Ended) 2019 - PNEUMOCOCCAL 65+ LOW/MEDIUM RISK (2 of 2 - PPSV23) 04/18/2019 - BREAST CANCER SCREENING 06/22/2019 - LIPID PANEL 05/15/2021 - DTAP/TDAP/TD VACCINES (4 - Td) 12/29/2026 I, YESSICA PELLETIER, am scribing for and in the presence of Mike Ann Jr., MD. . I have read and agree with the documentation that has been completed regarding this visit and attest, that it is an accurate record of both my words and actions during the visit. . MIKE ANN JR, [facility] 2018-11-23 08:30:00 OFFICE VISIT CHIEF COMPLAINT Back Pain SUBJECTIVE Ibis Tay is a 63 y.o. female who presents for follow-up of Back Pain with diagnosis of: 1. cervical stenosis with radiculopathy. 2. 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 Headaches With last encounter we resumed chronic opiate therapy with percocet 5/325 1-2 po qday. She continues with pain that is worsening in her neck radaiting to her UE bilaterally. She has had prior cervical WAQAR in JUN 2018 and notes the benefits from the injection have worn off and rwould like repeat injection when the weather warms up a bit. . With her last injection in JUN she notat that she had over >50% relief of pain with associated improvement in function, mobility and activity tolerance Patient currently is on Percocet 5/325 1-2 po qday states the medication is not effective giving the average pain rating of: 7/10 and feels that the pain is not manageable. New or changing adverse side effects:none New or changing pain complaints:none Other concerns: none ROS Constitutional: denies dizziness, sedation, or somnolence Psychological: denies altered mentation or euphoria GI: deniesconstipation or diarrhea Musc: denies acute change in numbness, weakness, or tingling of extemities MEDICATIONS Current Outpatient Medications Medication Sig Dispense Refill - alendronate (FOSAMAX) 70 MG tablet Take on empty stomach once weekly sitting upright for full hour after taking with big glass of water. No other meds or food for 1 hour 4 tablet 0 - ALPRAZolam (XANAX) 1 MG tablet TAKE ONE TABLET BY MOUTH THREE TIMES A DAY NEEDED FOR ANXIETY 90 tablet 1 - ARIPiprazole (ABILIFY) 10 MG tablet Take 1 tablet (10 mg total) by mouth once daily. 30 tablet 3 - atorvastatin (LIPITOR) 20 MG tablet TAKE ONE TABLET BY MOUTH DAILY 90 tablet 0 - camphor-menthol (SARNA ANTI-ITCH) lotion Apply topically as needed for itching. 222 mL 11 - cholecalciferol (VITAMIN D3) 5,000 unit capsule TAKE ONE CAPSULE BY MOUTH DAILY 30 capsule 10 - diaper,brief,adult,disposable Misc 1 application by Miscellaneous route 2 (two) times a day. 96 each 5 - escitalopram oxalate (LEXAPRO) 20 MG tablet Take 1 tablet (20 mg total) by mouth once daily. 30 tablet 5 - fluticasone propionate (FLOVENT DISKUS) 250 mcg/actuation Disk with Device One inhalation twice daily 60 each 0 - food supplemt, lactose-reduced (ENSURE) Liquid Drink 2 bottles per day. Patient requests strawberry. 40734 mL PRN - guaiFENesin 200 mg tablet TAKE THREE TABLETS BY MOUTH TWICE A DAY FOR 10 DAYS 60 tablet 0 - hydroCHLOROthiazide (HYDRODIURIL) 25 MG tablet Take 1 tablet (25 mg total) by mouth once daily. 30 tablet 0 - HYDROcodone-acetaminophen (NORCO) 5-325 mg tablet Take 1-2 tablets by mouth daily as needed for pain. To Last 30days. No early refills Max Daily Amount: 2 tablets 60 tablet 0 - [START ON 12/23/2018] HYDROcodone-acetaminophen (NORCO) 5-325 mg tablet Take 1-2 tablets by mouth daily as needed for pain. To last 30days. No early refill Max Daily Amount: 2 tablets 60 tablet 0 - hydrOXYzine (ATARAX) 25 MG tablet TAKE ONE TABLET BY MOUTH EVERY 8 HOURS NEEDED FOR ANXIETY 60 tablet 0 - ipratropium-albuterol (DUO-NEB) 0.5-2.5 mg/3 mL nebulizer Inhale 3 mL into the lungs 4 (four) times a day. 360 vial 3 - Lactobacillus acidoph-pectin (ACIDOPHILUS-PECTIN) 75 million cell -100 mg Capsule Take 1 capsule by mouth 2 (two) times a day. 60 capsule 0 - lisinopril (PRINIVIL,ZESTRIL) 10 MG tablet TAKE ONE TABLET BY MOUTH DAILY 90 tablet 1 - miscellaneous medical [place] [facility] [place] thumb spica splint 1 each 0 - montelukast (SINGULAIR) 10 mg tablet TAKE ONE TABLET BY MOUTH EVERY EVENING 30 tablet 4 - naloxone 2 mg/actuation [place], Non-Aerosol 2 mg by Nasal route as needed. 1-2 daily PRN. Proceed to ER for evaluation immediately following use. 4 each 1 - nicotine (NICODERM CQ) 21 mg/[address] 1 patch onto the skin every 24 (twenty-four) hours. 28 patch 1 - omeprazole (PRILOSEC) 40 MG capsule Take 1 capsule (40 mg total) by mouth once daily. 30 capsule 0 - polyethylene glycol (MIRALAX) 17 gram packet Take 17 g by mouth once daily. 14 each 0 - potassium chloride (KLOR-CON) 10 MEQ CR tablet Take 2 tablets (20 mEq total) by mouth 2 (two) times a day. 60 tablet 0 - prazosin (MINIPRESS) 1 MG capsule Take 2 capsules (2 mg total) by mouth daily every night. 60 capsule 4 - predniSONE (DELTASONE) 20 MG tablet Take one pill twice daily am and noon for 5 days then one pill daily for two days then one half pill daily for 2 days 13 tablet 0 - PROAIR HFA 90 mcg/actuation inhaler INHALE TWO PUFFS BY MOUTH FOUR TIMES A DAY 8.5 each 2 - QUEtiapine (SEROQUEL) 100 MG tablet Take 1 tablet (100 mg total) by mouth daily every night. 30 tablet 3 - SENNALAX-S 8.6-50 mg TAKE TWO TABLETS BY MOUTH TWICE A DAY (Patient taking differently: No sig reported) 120 tablet 10 - sertraline (ZOLOFT) 100 MG tablet Take 1 tablet (100 mg total) by mouth once daily. 30 tablet 3 - underpads Pad Use as needed for incontinence 300 each 10 No current facility-administered medications for this visit. ALLERGIES Allergies Allergen Reactions - Penicillins Anaphylaxis - Gabapentin Other (See Comments) severe fatigue - Sulfa (Sulfonamide Antibiotics) Other (See Comments) Blisters inside and outside of mouth. - Wellbutrin [Bupropion Hcl] Other (See Comments) Body numbness and tingling PHYSICAL EXAM Vital Signs: BP 151/82 (BP Location: Left arm) Pulse 102 Resp 12 Wt 64.9 kg (143 lb) BMI 26.16 kg/m Constitutional: Well nourished, well groomed, NAD. CARDIAC: Regular RateLUNGS: Breathing nonlabored, no wheezingNeurologic: Alert & oriented x 3, normal gait, no focal deficits noted. Psychiatric: Affect normal, judgment normal, mood normal. Other Affected BA/OS: Neck pain with extension, pain radiating To LUE with parasthesias. ASSESSMENT AND PLAN Problem List Items Addressed This Visit None Visit Diagnoses Failed back syndrome - Primary Relevant Medications HYDROcodone-acetaminophen (NORCO) 5-325 mg tablet HYDROcodone-acetaminophen (NORCO) 5-325 mg tablet (Start on 12/23/2018) Spinal stenosis in cervical region Relevant Medications HYDROcodone-acetaminophen (NORCO) 5-325 mg tablet HYDROcodone-acetaminophen (NORCO) 5-325 mg tablet (Start on 12/23/2018) 2. LEFT Hip fracture 3. Low back pain Requested Prescriptions Signed Prescriptions Disp Refills - HYDROcodone-acetaminophen (NORCO) 5-325 mg tablet 60 tablet 0 Sig: Take 1-2 tablets by mouth daily as needed for pain. To Last 30days. No early refills Max Daily Amount: 2 tablets - HYDROcodone-acetaminophen (NORCO) 5-325 mg tablet 60 tablet 0 Sig: Take 1-2 tablets by mouth daily as needed for pain. To last 30days. No early refill Max Daily Amount: 2 tablets PLAN: 1. cervical stenosis with radiculopathy. Her last Cervical WAQAR was in JUN 2018. She had excellent relief but is starting to wear off. She will call when she is ready for repeat injection. I had a long conversation with her regarding chronic opiate therapy in combination with chronic benzodiazepine therapy. I discussed with her the risk of accidental overdose due to medicaiton interaction. She notes that her other doctor has decreased her xanax use and is down to bid dosing. I discussed with her that I would like to change her to hydroodone 5/325 1-2 po qday to decrease the overall opiate load and would rather repeat the cervical WAQAR sooner in order to use less opiate medication. She understands and agrees. I will change her opiate thrapy to hydrocodone 5/325 1-2 po qday #60 to last 30 days and will f/u in 8 weeks. She may call for repeat cervical WAQAR when she is ready 2. Chronic Pain with chronic opiate therapy: The risks/benefits of chronic opiate therapy was discussed with patient including failure of therapy, psychological addiction, physiological dependence, and risk withdrawal syndrome. Warning symptoms of potential opiate overuse/overdose were discussed including sedation, somnolence, and altered mentation were reviewed and I counseled patient these symptoms can occur even when patient have been on a stable dose and also can happen despite following physicians instructions. Alternative therapies were discussed including: non-opiate medications, interventional pain procedures, and Cognitive Behavioral Therapy.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 DAILY 30 capsule 10 - diaper,brief,adult,disposable Misc 1 application by Miscellaneous route 2 (two) times a day. 96 each 5 - escitalopram oxalate (LEXAPRO) 20 MG tablet Take 1 tablet (20 mg total) by mouth once daily. 90 tablet 5 - FLOVENT DISKUS 250 mcg/actuation Disk with Device INHALE ONE PUFF BY MOUTH TWICE A DAY *RINSE MOUTH AFTER USE* 60 each 3 - food supplemt, lactose-reduced (ENSURE) Liquid Drink 2 bottles per day. Patient requests strawberry. 89537 mL PRN - guaiFENesin 200 mg tablet TAKE THREE TABLETS BY MOUTH TWICE A DAY FOR 10 DAYS 60 tablet 0 - hydroCHLOROthiazide (HYDRODIURIL) 25 MG tablet TAKE ONE TABLET BY MOUTH DAILY 30 tablet 4 - hydrOXYzine (ATARAX) 25 MG tablet TAKE ONE TABLET BY MOUTH EVERY 8 HOURS NEEDED FOR ANXIETY 60 tablet 1 - ipratropium-albuterol (DUO-NEB) 0.5-2.5 mg/3 mL nebulizer Inhale 3 mL into the lungs 4 (four) times a day. 360 vial 3 - Lactobacillus acidoph-pectin (ACIDOPHILUS-PECTIN) 75 million cell -100 mg Capsule Take 1 capsule by mouth 2 (two) times a day. 60 capsule 0 - lisinopril (PRINIVIL,ZESTRIL) 10 MG tablet TAKE ONE TABLET BY MOUTH DAILY 90 tablet 1 - [place] [facility] [place] spica splint 1 each 0 - montelukast (SINGULAIR) 10 mg tablet TAKE ONE TABLET BY MOUTH EVERY EVENING 30 tablet 4 - naloxone 2 mg/actuation [place], Non-Aerosol 2 mg by Nasal route as needed. 1-2 daily PRN. Proceed to ER for evaluation immediately following use. 4 each 1 - nicotine (NICODERM CQ) 21 mg/[address] 1 patch onto the skin every 24 (twenty-four) hours. 28 patch 1 - omeprazole (PRILOSEC) 40 MG capsule TAKE ONE CAPSULE BY MOUTH DAILY 30 capsule 10 - oxyCODONE-acetaminophen (PERCOCET) 5-325 mg tablet Take 1-2 tablets by mouth daily as needed for pain. Max Daily Amount: 2 tablets 60 tablet 0 - oxyCODONE-acetaminophen (PERCOCET) 5-325 mg tablet Take 1-2 tablets by mouth daily as needed for pain. To Last 30days No early refills Max Daily Amount: 2 tablets 60 tablet 0 - polyethylene glycol (MIRALAX) 17 gram packet Take 17 g by mouth once daily. 14 each 0 - potassium chloride (KLOR-CON) 10 MEQ CR tablet TAKE TWO TABLETS BY MOUTH TWICE A DAY 120 tablet 4 - prazosin (MINIPRESS) 1 MG capsule Take 1 capsule (1 mg total) by mouth daily every night. 30 capsule 4 - predniSONE (DELTASONE) 20 MG tablet Take one pill twice daily am and noon for 5 days then one pill daily for two days then one half pill daily for 2 days 13 tablet 0 - PROAIR HFA 90 mcg/actuation inhaler INHALE TWO PUFFS BY MOUTH FOUR TIMES A DAY 8.5 each 3 - SENNALAX-S 8.6-50 mg TAKE TWO TABLETS BY MOUTH TWICE A DAY (Patient taking differently: No sig reported) 120 tablet 10 - underpads Pad Use as needed for incontinence 300 each 10 No current facility-administered medications for this visit. ALLERGIES Allergies Allergen Reactions - Penicillins Anaphylaxis - Gabapentin Other (See Comments) severe fatigue - Sulfa (Sulfonamide Antibiotics) Other (See Comments) Blisters inside and outside of mouth. - Wellbutrin [Bupropion Hcl] Other (See Comments) Body numbness and tingling PHYSICAL EXAM Vital Signs: BP 169/72 (BP Location: Left arm) Pulse 83 Resp 12 Wt 62.6 kg (138 lb) BMI 25.24 kg/m Constitutional: Well nourished, well groomed, NAD. CARDIAC: Regular RateLUNGS: Breathing nonlabored, no wheezingNeurologic: Alert & oriented x 3, normal gait, no focal deficits noted. Psychiatric: Affect normal, judgment normal, mood normal. Other Affected BA/OS: Neck pain with extension, pain radiating To LUE with parasthesias. ASSESSMENT AND PLAN Problem List Items Addressed This Visit None Visit Diagnoses Failed back syndrome - Primary Spinal stenosis in cervical region 2. LEFT Hip fracture 3. Low back pain Requested Prescriptions Pending Prescriptions Disp Refills - oxyCODONE-acetaminophen (PERCOCET) 5-325 mg tablet 60 tablet 0 Sig: Take 1-2 tablets by mouth daily as needed for pain. Max Daily Amount: 2 tablets - oxyCODONE-acetaminophen (PERCOCET) 5-325 mg tablet 60 tablet 0 Sig: Take 1-2 tablets by mouth daily as needed for pain. To Last 30days No early refills Max Daily Amount: 2 tablets PLAN: 1. cervical stenosis with radiculopathy. Worsening. IGood response to recentt Cervical WAQAR in JUN 2018 with over 90% relief of painShe is improved and otherwise stable. I will refill her prescription of oxycodone f5/325 1-2 po qday or treatment of her chronic pain. I will f/u in 8 weeks 2. Chronic Pain with chronic opiate therapy: The risks/benefits of chronic opiate therapy was discussed with patient including failure of therapy, psychological addiction, physiological dependence, and risk withdrawal syndrome. Warning symptoms of potential opiate overuse/overdose were discussed including sedation, somnolence, and altered mentation were reviewed and I counseled patient these symptoms can occur even when patient have been on a stable dose and also can happen despite following physicians instructions. Alternative therapies were discussed including: non-opiate medications, interventional pain procedures, and Cognitive Behavioral Therapy. After discussing these alternatives with the patient, the patient has opted to decline these alternatives at this time. Patient has tried and failed more conservative measures and were either ineffective or intolerant. In my medical opinion non-opiate therapy is not appropriate to address the patient's medical condition at this time and will continue chronic opiate therapy after having addressed efficacy, adverse side effects, and safety of therapy with the patient. Patient verbally agrees. The patient indicates understanding of these issues and agrees with the plan. I reviewed the patient's medical information and medical history. I have reviewed the past medical, family, and social history sections including the medications and allergies listed in the above medical record. Electronically signed by: Isaías Cardenas, 07/27/2018 11:10 AM [facility] 2018-06-22 09:15:00 Subjective: Patient ID: Ibis Tay is a 63 y.o. female. Chief Complaint Patient presents with - Results regarding MRI and mammogram HPI The patient is here today for a review of results. The patient has a history of back pain since October 2017, which she developed after sustaining a fall. Her MRI thoracic spine obtained on 06/13/2018 demonstrated T12 compression fracture demonstrates near-complete healing. There is a prominent Schmorl's node along the superior end plate with some reactive edema along the Schmorl's node itself. Small moderate-sized central/left paracentral disc protrusion at T7-8 causing mild central canal stenosis. Multilevel degenerative spondylosis. She was administered a Toradol 30 mg injection at her last visit. Patient complains of bilateral breast pain, right more than left. She denies feeling any bumps or lumps on her breasts on self-breast exam. Her last 3D bilateral screening mammogram obtained on 06/13/2018 demonstrated breast parenchyma: Scattered fibroglandular. Asymmetry in the upper right breast. Following the results of her abnormal mammogram a 3D diagnostic unilateral right-sided mammogram was obtained this morning, which demonstrated area of abnormality noted on the screening study corresponds to normal-appearing breast parenchyma. No evidence of malignancy. Recommendation is yearly screening mammography. She inquires if she could repeat Toradol injection for breast pain today. The patient is a smoker. She is trying to quit smoking; however, she denies any significant success. She received her influenza vaccine at the end of March 2018. Review of Systems General : No weight gain or loss, no loss of appetite, no fever, no chills, no fatigue, no night sweats Skin And lymphatics: No rashes, no skin discolorations, no easy bruising, no lymphadenopathy Head: No headaches, no dizziness, no masses, no seizures Eyes: No visual changes no eye pain Ears: No tinnitus, no vertigo, no hearing loss Nose: No nosebleeds, no discharge, no sinus disease Mouth and throat: Denies dental disease, no hoarseness, no throat pain Respiratory: No cough, no shortness of breath, no sputum production Cardiovascular: No chest pain, no orthopnea, no paroxysmal nocturnal dyspnea, or dyspnea on exertion, no claudication, no edema, no valvular disease Gastrointestinal: No dysphagia, no abdominal pain, no nausea, no vomiting, no hematemesis, no diarrhea, no constipation, no melena, no hematochezia Genitourinary: No dysuria, no frequency, no hesitancy, no hematuria no discharge Musculoskeletal: Positive for back pain Breast: Positive for breast pain Neuropsychiatric: No weakness no seizures, no memory changes, no depression Neurologic: No unilateral or bilateral numbness tingling or weakness, no difficulty with speech, no vision changes, no problems with balance, denies dizziness, denies headache Objective: BP 132/74 (BP Location: Left arm, Patient Position: Sitting) Pulse 118 Temp 35.7 C (96.3 F) Wt 60.5 kg (133 lb 4.8 oz) SpO2 98% BMI 24.38 kg/m Physical Exam Nursing note and vitals reviewed. Constitutional: . patient appears well-developed and well-nourished. No distress. Head: Normocephalic and atraumatic. Right Ear: External ear normal. no erythema bright tympanic membrane bony landmarks intact Left Ear: External ear normal. No erythema bright tympanic membrane bony landmarks intact Mouth/Throat: No oropharyngeal exudate. Neck: No JVD present. No tracheal deviation present. No thyromegaly present. Cardiovascular: Normal rate, regular rhythm, normal heart sounds and intact distal pulses. Exam reveals no gallop and no friction rub. No murmur heard. Pulmonary/Chest: Effort normal. No respiratory distress. patient has no wheezes. patient has no rales. Patient exhibits no tenderness. Abdominal: Soft. Patient exhibits no distension and no mass. There is no tenderness to palpation. There is no rebound and no guarding. Musculoskeletal: Normal range of motion. Patient exhibits no edema and no tenderness. Skin: Skin is warm. No rash noted. Patient is not diaphoretic. No erythema. No pallor. Assessment/Plan: Problem List Items Addressed This Visit Compression fracture of body of thoracic vertebra (HCC) Other Visit Diagnoses Abnormal mammogram of right breast - Primary Breast pain Relevant Medications ketorolac (TORADOL) injection 60 mg (Completed) 1. Abnormal mammogram of right breast Her 3D unilateral right breast mammogram was reviewed in the office today, which was normal and ruled out breast cancer. 2. Compression fracture of body of thoracic vertebra (HCC) resolved no pathologic involvement with cancer patient advised to continue with daily calcium 500 mg twice daily/ Fosamax 70 mg once weekly and vitamin D 5000 units once daily Reviewed her MRI thoracic spine in the office today. 3. Breast pain mammogram reassuringly normal on follow-up use a should reassured The patient was administered Toradol 60 mg injection in the office today. She was advised to take vitamin E 400 IU once daily for breast pain. - ketorolac (TORADOL) injection 60 mg; Inject 2 mL (60 mg total) into the muscle once. I, YESSICA PELLETIER, am scribing for and in the presence of Mike Ann Jr., MD. . I have read and agree with the documentation that has been completed regarding this visit and attest, that it is an accurate record of both my words and actions during the visit. . MIKE ANN JR, [facility] 2018-05-30 08:30:00 OFFICE VISIT CHIEF COMPLAINT Neck Pain SUBJECTIVE Ibis Tay is a 63 y.o. female who presents for follow-up of Neck Pain with diagnosis of: 1. cervical stenosis with radiculopathy. 2. 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 Headaches With last encounter we resumed chronic opiate therapy with percocet 5/325 1-2 po qday. She continues with pain that is worsening in her neck radaiting to her UE bilaterally. She has had prior cervical WAQAR in DEC 2017 and notes the benefits from the injection have worn off and requests repeat injection. She notes that over the summer she had >50% relief of pain with associated improvement in function, mobility and activity tolerance Patient currently is on Percocet 5/325 1-2 po qday states the medication is not effective giving the average pain rating of: 7/10 and feels that the pain is not manageable. New or changing adverse side effects:none New or changing pain complaints:none Other concerns: none ROS Constitutional: denies dizziness, sedation, or somnolence Psychological: denies altered mentation or euphoria GI: deniesconstipation or diarrhea Musc: denies acute change in numbness, weakness, or tingling of extemities MEDICATIONS Current Outpatient Medications Medication Sig Dispense Refill - alendronate (FOSAMAX) 70 MG tablet Take on empty stomach once weekly sitting upright for full hour after taking with big glass of water. No other meds or food for 1 hour 4 tablet 12 - ALPRAZolam (XANAX) 1 MG tablet Take 1 tablet (1 mg total) by mouth 4 (four) times a day as needed. FOR ANXIETY 120 tablet 3 - ARIPiprazole (ABILIFY) 10 MG tablet Take 1 tablet (10 mg total) by mouth once daily. 30 tablet 3 - atorvastatin (LIPITOR) 20 MG tablet TAKE ONE TABLET BY MOUTH DAILY 90 tablet 0 - cholecalciferol (VITAMIN D3) 5,000 unit capsule TAKE ONE CAPSULE BY MOUTH DAILY 30 capsule 10 - diaper,brief,adult,disposable Misc 1 application by Miscellaneous route 2 (two) times a day. 96 each 5 - escitalopram oxalate (LEXAPRO) 20 MG tablet Take 1 tablet (20 mg total) by mouth once daily. 90 tablet 5 - FLOVENT DISKUS 250 mcg/actuation Disk with Device INHALE ONE PUFF BY MOUTH TWICE A DAY *RINSE MOUTH AFTER USE* 60 each 4 - food supplemt, lactose-reduced (ENSURE) Liquid Drink 2 bottles per day. Patient requests strawberry. 62962 mL PRN - guaiFENesin 200 mg tablet TAKE THREE TABLETS BY MOUTH TWICE A DAY FOR 10 DAYS 60 tablet 0 - hydroCHLOROthiazide (HYDRODIURIL) 25 MG tablet Take 1 tablet (25 mg total) by mouth once daily. 30 tablet 5 - hydrOXYzine (ATARAX) 25 MG tablet TAKE ONE TABLET BY MOUTH EVERY 8 HOURS NEEDED FOR ANXIETY 60 tablet 0 - ipratropium-albuterol (DUO-NEB) 0.5-2.5 mg/3 mL nebulizer Inhale 3 mL into the lungs 4 (four) times a day. 360 vial 3 - Lactobacillus acidoph-pectin (ACIDOPHILUS-PECTIN) 75 million cell -100 mg Capsule Take 1 capsule by mouth 2 (two) times a day. 60 capsule 0 - lisinopril (PRINIVIL,ZESTRIL) 10 MG tablet TAKE ONE TABLET BY MOUTH DAILY 90 tablet 1 - misc[place] [facility] [place] thumb spica splint 1 each 0 - montelukast (SINGULAIR) 10 mg tablet TAKE ONE TABLET BY MOUTH EVERY EVENING 30 tablet 4 - naloxone 2 mg/actuation [place], Non-Aerosol 2 mg by Nasal route as needed. 1-2 daily PRN. Proceed to ER for evaluation immediately following use. 4 each 1 - nicotine (NICODERM CQ) 21 mg/[address] 1 patch onto the skin every 24 (twenty-four) hours. 28 patch 1 - omeprazole (PRILOSEC) 40 MG capsule TAKE ONE CAPSULE BY MOUTH DAILY 30 capsule 10 - oxyCODONE-acetaminophen (PERCOCET) 5-325 mg tablet Take 1-2 tablets by mouth daily as needed for pain. Max Daily Amount: 2 tablets 60 tablet 0 - polyethylene glycol (MIRALAX) 17 gram packet Take 17 g by mouth once daily. 14 each 0 - potassium chloride (KLOR-CON) 10 MEQ CR tablet TAKE TWO TABLETS BY MOUTH TWICE A DAY 120 tablet 4 - prazosin (MINIPRESS) 1 MG capsule Take 1 capsule (1 mg total) by mouth daily every night. 30 capsule 4 - predniSONE (DELTASONE) 20 MG tablet Take one pill twice daily am and noon for 5 days then one pill daily for two days then one half pill daily for 2 days 13 tablet 0 - PROAIR HFA 90 mcg/actuation inhaler INHALE TWO PUFFS BY MOUTH FOUR TIMES A DAY 8.5 each 3 - SENNALAX-S 8.6-50 mg TAKE TWO TABLETS BY MOUTH TWICE A DAY (Patient taking differently: No sig reported) 120 tablet 10 - underpads Pad Use as needed for incontinence 300 each 10 - camphor-menthol (SARNA ANTI-ITCH) lotion Apply topically as needed for itching. (Patient not taking: Reported on 05/30/2018 ) 222 mL 11 No current facility-administered medications for this visit. ALLERGIES Allergies Allergen Reactions - Penicillins Anaphylaxis - Gabapentin Other (See Comments) severe fatigue - Sulfa (Sulfonamide Antibiotics) Other (See Comments) Blisters inside and outside of mouth. - Wellbutrin [Bupropion Hcl] Other (See Comments) Body numbness and tingling PHYSICAL EXAM Vital Signs: BP 153/86 (BP Location: Right arm) Pulse 105 Wt 60.3 kg (133 lb) BMI 24.33 kg/m Constitutional: Well nourished, well groomed, NAD. CARDIAC: Regular RateLUNGS: Breathing nonlabored, no wheezingNeurologic: Alert & oriented x 3, normal gait, no focal deficits noted. Psychiatric: Affect normal, judgment normal, mood normal. Other Affected BA/OS: Neck pain with extension, pain radiating To LUE with parasthesias. ASSESSMENT AND PLAN Problem List Items Addressed This Visit None Visit Diagnoses Failed back syndrome - Primary 2. LEFT Hip fracture 3. Low back pain Requested Prescriptions Pending Prescriptions Disp Refills - oxyCODONE-acetaminophen (PERCOCET) 5-325 mg tablet 60 tablet 0 Sig: Take 1-2 tablets by mouth daily as needed for pain. Max Daily Amount: 2 tablets - oxyCODONE-acetaminophen (PERCOCET) 5-325 mg tablet 60 tablet 0 Sig: Take 1-2 tablets by mouth daily as needed for pain. To Last 30days No early refills Max Daily Amount: 2 tablets PLAN: 1. cervical stenosis with radiculopathy. Worsening. I will schedule her for repeat Cervical WAQAR. HEr last injection was in DEC 2017 and she notes >50% relief but her pain is starting to recur and would like to repeast the injection. I will refill her prescription of oxycodone f5/325 1-2 po qday or treatment of her chronic pain. I will f/u in 8 weeks 2. Chronic Pain with chronic opiate therapy: The risks/benefits of chronic opiate therapy was discussed with patient including failure of therapy, psychological addiction, physiological dependence, and risk withdrawal syndrome. Warning symptoms of potential opiate overuse/overdose were discussed including sedation, somnolence, and altered mentation were reviewed and I counseled patient these symptoms can occur even when patient have been on a stable dose and also can happen despite following physicians instructions. Alternative therapies were discussed including: non-opiate medications, interventional pain procedures, and Cognitive Behavioral Therapy. After discussing these alternatives with the patient, the patient has opted to decline these alternatives at this time. Patient has tried and failed more conservative measures and were either ineffective or intolerant. In my medical opinion non-opiate therapy is not appropriate to address the patient's medical condition at this time and will continue chronic opiate therapy after having addressed efficacy, adverse side effects, and safety of therapy with the patient. Patient verbally agrees. The patient indicates understanding of these issues and agrees with the plan. I reviewed the patient's medical information and medical history. I have reviewed the past medical, family, and social history sections including the medications and allergies listed in the above medical record. Electronically signed by: Isaías Cardenas, 05/30/2018 8:57 AM [facility] 2018-05-16 09:15:00 Patient, Ibis anderson s consent to Amina Bowman MD's use of Augmedix at today's visit. NA BRANDON [facility] 2018-05-16 09:15:00 CHIEF COMPLAINT 1. Injury of right thumb, subsequent encounter HPI Ibis Tay is a 63 y.o. female, status post reconstruction of right thumb ulnar collateral ligament. Date of surgery was April 05, 2018. Patient has been wearing a thumb spica cast IP free over the last 4 weeks. She complains of some numbness on the dorsal aspect of her right thumb however she still reports that it has been improving since surgery. MEDICATIONS Outpatient Encounter Prescriptions as of 05/16/2018 Medication Sig Dispense Refill - alendronate (FOSAMAX) 70 MG tablet Take on empty stomach once weekly sitting upright for full hour after taking with big glass of water. No other meds or food for 1 hour 4 tablet 12 - ALPRAZolam (XANAX) 1 MG tablet Take 1 tablet (1 mg total) by mouth 4 (four) times a day as needed. FOR ANXIETY 120 tablet 3 - ARIPiprazole (ABILIFY) 10 MG tablet Take 1 tablet (10 mg total) by mouth once daily. 30 tablet 3 - atorvastatin (LIPITOR) 20 MG tablet TAKE ONE TABLET BY MOUTH DAILY 90 tablet 0 - cholecalciferol (VITAMIN D3) 5,000 unit capsule TAKE ONE CAPSULE BY MOUTH DAILY 30 capsule 10 - diaper,brief,adult,disposable Misc 1 application by Miscellaneous route 2 (two) times a day. 96 each 5 - escitalopram oxalate (LEXAPRO) 20 MG tablet Take 1 tablet (20 mg total) by mouth once daily. 90 tablet 5 - FLOVENT DISKUS 250 mcg/actuation Disk with Device INHALE ONE PUFF BY MOUTH TWICE A DAY *RINSE MOUTH AFTER USE* 60 each 4 - food supplemt, lactose-reduced (ENSURE) Liquid Drink 2 bottles per day. Patient requests strawberry. 98417 mL PRN - guaiFENesin 200 mg tablet TAKE THREE TABLETS BY MOUTH TWICE A DAY FOR 10 DAYS 60 tablet 0 - hydroCHLOROthiazide (HYDRODIURIL) 25 MG tablet Take 1 tablet (25 mg total) by mouth once daily. 30 tablet 5 - hydrOXYzine (ATARAX) 25 MG tablet TAKE ONE TABLET BY MOUTH EVERY 8 HOURS NEEDED FOR ANXIETY 60 tablet 0 - ipratropium-albuterol (DUO-NEB) 0.5-2.5 mg/3 mL nebulizer Inhale 3 mL into the lungs 4 (four) times a day. 360 vial 3 - Lactobacillus acidoph-pectin (ACIDOPHILUS-PECTIN) 75 million cell -100 mg Capsule Take 1 capsule by mouth 2 (two) times a day. 60 capsule 0 - lisinopril (PRINIVIL,ZESTRIL) 10 MG tablet TAKE ONE TABLET BY MOUTH DAILY 90 tablet 1 - misc[place] [facility] [place] hand thumb spica splint 1 each 0 - montelukast (SINGULAIR) 10 mg tablet TAKE ONE TABLET BY MOUTH EVERY EVENING 30 tablet 4 - naloxone 2 mg/actuation [place], Non-Aerosol 2 mg by Nasal route as needed. 1-2 daily PRN. Proceed to ER for evaluation immediately following use. 4 each 1 - nicotine (NICODERM CQ) 21 mg/[address] 1 patch onto the skin every 24 (twenty-four) hours. 28 patch 1 - omeprazole (PRILOSEC) 40 MG capsule TAKE ONE CAPSULE BY MOUTH DAILY 30 capsule 10 - oxyCODONE-acetaminophen (PERCOCET) 5-325 mg tablet Take 1-2 tablets by mouth daily as needed for pain. Max Daily Amount: 2 tablets 60 tablet 0 - polyethylene glycol (MIRALAX) 17 gram packet Take 17 g by mouth once daily. 14 each 0 - potassium chloride (KLOR-CON) 10 MEQ CR tablet TAKE TWO TABLETS BY MOUTH TWICE A DAY 120 tablet 4 - prazosin (MINIPRESS) 1 MG capsule Take 1 capsule (1 mg total) by mouth daily every night. 30 capsule 4 - predniSONE (DELTASONE) 20 MG tablet Take one pill twice daily am and noon for 5 days then one pill daily for two days then one half pill daily for 2 days 13 tablet 0 - PROAIR HFA 90 mcg/actuation inhaler INHALE TWO PUFFS BY MOUTH FOUR TIMES A DAY 8.5 each 3 - SENNALAX-S 8.6-50 mg TAKE TWO TABLETS BY MOUTH TWICE A DAY (Patient taking differently: No sig reported) 120 tablet 10 - underpads Pad Use as needed for incontinence 300 each 10 Facility-Administered Encounter Medications as of 05/16/2018 Medication Dose Route Frequency Provider Last Rate Last Dose - [COMPLETED] ketorolac (TORADOL) injection 30 mg 30 mg IntraMuscular Once Mike Ann Jr., MD 30 mg at 05/15/18 1029 ALLERGIES Allergies Allergen Reactions - Penicillins Anaphylaxis - Gabapentin Other (See Comments) severe fatigue - Sulfa (Sulfonamide Antibiotics) Other (See Comments) Blisters inside and outside of mouth. - Wellbutrin [Bupropion Hcl] Other (See Comments) Body numbness and tingling PHYSICAL EXAM BP 126/80 Pulse 91 Ht 157.5 cm (5' 2) Wt 59.4 kg (131 lb) BMI 23.96 kg/m2 Ibis Tay is a pleasant 63 y.o. female patient. Right Hand/Digits: Incisions clean and dry. No erythema, fluctuance, or drainage. Patient is able to make a fist she can adduct and abduct her thumb without difficulty and she is also able to oppose the thumb to the PIP joint of the small finger ASSESSMENT Ibis Tay is a 63 y.o. female, status post reconstruction of right thumb ulnar collateral ligament. Date of surgery was April 05, 2018. Overall the patient is doing well. PLAN Patient was encouraged to wear her thumb spica splints daily at home she is able to take it off for showers and to do range of motion exercises of the right thumb however she was instructed not to do any heavy lifting with the hand without wearing the splint. Follow-up in clinic in 6 weeks for reevaluation Mrs. Tay agrees with the plan. Patient was instructed to contact my office if there are any new concerns or questions. Electronically signed by: Kusum Butts, 05/16/2018 10:04 AM Hand Surgery attending note Patient seen and examined with Kusum Butts APRN. I agree with her note above. Right thumb ulnar collateral ligament reconstructed site healing well. Numbness on the dorsum of her right thumb is improving. No laxity of right thumb at metacarpophalangeal joint upon radially stressing it. Dictated by: Amina Bowman M.D. Electronically signed by: Amina Bowman, 05/16/2018 2:38 PM [employer] dictation software was used for generating this document. It may contain typographical errors. AMINA BOWMAN [facility] 2018-05-15 09:15:00 Patient, Ibis anderson s consent to Mike Ann Jr., MD's use of Augmedix at today's visit. ERA DOTY [facility] 2018-05-15 09:15:00 Subjective: Patient ID: Ibis Tay is a 63 y.o. female. Chief Complaint Patient presents with - Follow-up HPI The patient is here today for a review of her health maintenance status. Patient does not remember when her last Pap smear was obtained. She has never had an abnormal Pap smear in the past. She has been monogamous with her for the last 40 years, he denies vaginal symptoms vaginal discharge or discomfort. She is due for a colonoscopy. She has not done any hemoccult screening lately. She is also due for a mammogram. She denies noticing any lumps or bumps in her breasts lately, she denies abnormal mammogram in the past. The patient is status-post left upper lobectomy for non-small cell lung carcinoma. Her last CT Chest obtained on 05/01/2018 demonstrated interval left upper lobectomy. There are several small nodules in the apex of the residual left lower lobe, new since 08/06/2017, and suspicious for metastatic disease. These nodules are too small to biopsy currently. Suspicious splenic lesions, which are also new. New superior endplate compression deformity of T12. Hepatic steatosis. Patient is a smoker, and smokes half a pack of cigarettes for the last 22 years. She is due for a spirometry, she is known history of COPD patient as of yet has not been able to stop smoking.. The patient complains of back pain since October 2017 after sustaining a fall. Her pain is located around the T12 area. She rates her pain as 7/10 on a daily basis. Patient is due for Shingrix vaccine. She received influenza vaccine at [facility]. Last blood work was reviewed with the patient in detail today. Patient is due for HbA1c, CMP, and lipid panel today. Patient is known history of glucose intolerance present does not check blood sugars at home and manages her glucose intolerance by avoidance of the concentrated sweets. Patient does have known history of dyslipidemia patient remains on Lipitor 20 mg 1 tablet by mouth daily also low-fat low-cholesterol diet. Lizz patient is known history of hypertension she remains on hydrochlorothiazide 25 mg 1 tab daily as well as lisinopril 10 mg 1 tab daily, follow low-salt diet. Review of Systems General : No weight gain or loss, no loss of appetite, no fever, no chills, no fatigue, no night sweats Skin And lymphatics: No rashes, no skin discolorations, no easy bruising, no lymphadenopathy Head: No headaches, no dizziness, no masses, no seizures Eyes: No visual changes no eye pain Ears: No tinnitus, no vertigo, no hearing loss Nose: No nosebleeds, no discharge, no sinus disease Mouth and throat: Denies dental disease, no hoarseness, no throat pain Respiratory: No cough, no shortness of breath, no sputum production Cardiovascular: No chest pain, no orthopnea, no paroxysmal nocturnal dyspnea, or dyspnea on exertion, no claudication, no edema, no valvular disease Gastrointestinal: No dysphagia, no abdominal pain, no nausea, no vomiting, no hematemesis, no diarrhea, no constipation, no melena, no hematochezia Genitourinary: No dysuria, no frequency, no hesitancy, no hematuria no discharge Musculoskeletal: Positive for back pain, no arthritis, no myalgias Neuropsychiatric: No weakness no seizures, no memory changes, no depression Neurologic: No unilateral or bilateral numbness tingling or weakness, no difficulty with speech, no vision changes, no problems with balance, denies dizziness, denies headache Objective: BP 132/74 (BP Location: Left arm, Patient Position: Sitting) Pulse 101 Temp 35.8 C (96.5 F) Resp 18 Ht 157.5 cm (5' 2) Wt 59.8 kg (131 lb 12.8 oz) SpO2 98% BMI 24.11 kg/m2 Physical Exam Nursing note and vitals reviewed. Constitutional: . patient appears well-developed and well-nourished. No distress. Head: Normocephalic and atraumatic. Right Ear: External ear normal. no erythema bright tympanic membrane bony landmarks intact Left Ear: External ear normal. No erythema bright tympanic membrane bony landmarks intact Mouth/Throat: No oropharyngeal exudate. Neck: No JVD present. No tracheal deviation present. No thyromegaly present. Cardiovascular: Normal rate, regular rhythm, normal heart sounds and intact distal pulses. Exam reveals no gallop and no friction rub. No murmur heard. Pulmonary/Chest: Effort normal. No respiratory distress. patient has no wheezes. patient has no rales. Patient exhibits no tenderness. Abdominal: Soft. Patient exhibits no distension and no mass. There is no tenderness to palpation. There is no rebound and no guarding. Musculoskeletal: Diabetic monofilament foot exam: Right foot: She has a slight great toe bunion. She has thickening of bilateral great toenails right worse than left. She has 1+ dorsalis pedis and posterior tibial pulses. 5/5 sensation. Left foot: She has a slight great toe bunion. She has thickening of bilateral great toenails right worse than left. She has 1+ dorsalis pedis and posterior tibial pulses. 5/5 sensation. Skin: Skin is warm. No rash noted. Patient is not diaphoretic. No erythema. No pallor. Assessment/Plan: Problem List Items Addressed This Visit Dyslipidemia Relevant Orders Lipid panel Comprehensive metabolic panel Other Visit Diagnoses Breast cancer screening - Primary Relevant Orders Mammo Digital 3D Screening Bilateral Colon cancer screening Hyperglycemia Relevant Orders Hemoglobin A1c Glucose intolerance (impaired glucose tolerance) Relevant Orders Hemoglobin A1c Compression fracture of body of thoracic vertebra (HCC) Relevant Medications ketorolac (TORADOL) injection 30 mg Other Relevant Orders MRI Thoracic Spine with and without Contrast 1. Non-small cell carcinoma of lung (HCC) keep follow-up with oncology follow treatment is indicated will need repeat CAT scan in 3 months sooner as oncology indicates 2. Breast cancer screening Ordered a 3D bilateral mammogram screening to be obtained in near future. - Mammo Digital 3D Screening Bilateral; Future 3. Colon cancer screening discussed cologuard and colonoscopy patient declines both for now with significant of morbidity and mortality for untreated/undiscovered colon cancer 4. Hyperglycemia Ordered a blood work to obtain HbA1c. We will call the patient with results. - Hemoglobin A1c 5. Glucose intolerance (impaired glucose tolerance) Ordered a blood work to obtain HbA1c. We will call the patient with results. - Hemoglobin A1c 6. Dyslipidemia Ordered a blood work to obtain lipid panel and CMP. We will call the patient with results. Continue current medication regimen. Goal HDL of 50 or greater. Goal LDL less than 100 and goal of triglycerides less than 150. aerobic exercise 30 minutes 5 times weekly Patient needs to decrease red meat, increase fish/ fowl and grains in their diet as well as fruits and vegetables. Patient should get more than 50% of total calories from whole grain, fruits and vegetables, fiber 20-30 g per day, dietary fat should be no more than 25-35% of total calories and protein about 15% of total calories. Adding in an omega-3 fatty acids such as a fish oil and/or adding tree nuts also seems to help. - Lipid panel - Comprehensive metabolic panel 7. Compression fracture of body of thoracic vertebra (HCC) Ordered MRI Thoracic spine to be obtained in near future. The patient was administered a Toradol injection in the office today. - MRI Thoracic Spine with and without Contrast; Future - ketorolac (TORADOL) injection 30 mg; Inject 1 mL (30 mg total) into the muscle once. 8. Hypertension, benign essential, goal below 140/90 Continue current medication therapy. Goal blood pressure 140/90 or better. Follow low salt diet as well as Dash Diet suggestions, aerobic exercise 30 minutes 5x weekly, keep weight close to ideal. I, YESSICA PELLETIER, am scribing for and in the presence of Mike Ann Jr., MD. . I have read and agree with the documentation that has been completed regarding this visit and attest, that it is an accurate record of both my words and actions during the visit. . MIKE ANN JR, CHI 2018-05-12 11:01:42 [facility] [phone] is inquiring pt to have availability of naloxone therapy due to risk as pt is also using benzo and has current breathing issues. Per Dr Cardenas: Narcan Nasal [place] 2 mg per [place] Will place order after clarification on Tuesday once Dr Cardenas returns to office. JUNG: 04/25/18 NOV: 05/30/18 JAYDEN CARLISLE [facility] 2018-05-12 11:01:[address] Cardenas: 1-2 d aily PRN. 1 R Proceed to ER for evaluation immediately following use. Left on [facility] Voicemail. JAYDEN CARLISLE [facility] 2018-04-27 14:00:00 ADULT PSYCHIATRY OUT PATIENT - PROGRESS NOTE Psychiatry Established Patient: (Outpatient [id number] - [id number]) Identifying Information: PATIENT NAME: Ibis Tay MR# [id number] ENCOUNTER DATE: 04/27/2018 PROVIDER: Parth Lemos MD Appointment time: 200 Start time: 148 Stop time:220 Total time: 32 minutes Accompanied by: No one; Patient guardian is self. Chief Complaint: Today, Ms. Ibis Tay is a 63 y.o. female who presents with a chief complaint of: No chief complaint on file. CC: Follow up Depression and Anxiety, PTSD Ibis Tay is a 63 y.o. Female was last seen on 03-13-18 Changes made were: Abilify was increased, hydroxyzine added, xanax decreased and lamotrigine was being removed. I have reviewed the patient's medications and entered Marked as Reviewed in the medication section of this encounter. Side effects to medications: no side effects History of Present Illness: Patient is a 63 y.o., female with a history of depression, PTSD, and anxiety who presents to clinic for a follow up after an interval of several weeks. Since her last visit, patient reports She has been doing ill. Patient was last seen 03-13-18 at which point Abilify was increased, hydroxyzine added, xanax decreased and lamotrigine was being removed. She is seen today with her cast after her surgery last month. This is doing well but is causing some difficulties due to being right handed. She is having at home nursing check up on her as well. She feels that her mental health is stable and she is still having many awakenings during the night. She is happy that she is off of the lamotrigine and this was not a problem. She denies depression at this time including low energy, mood, concentration, appaptite or SI. She continues to enjoy time with her family and great grandson. She denies all medication side effects. Denies all issues with anger, irritability, racing thoughts, euphoria or impulsivity. She denies recent nightmares and feels they are now less than nightly. She continues to endorse frequent panic attacks. She denies all SI, HI, AH or VH. Therapy today was focused on medication changes, safety/risk of her current medications combination, medical issues, coping skills and safety. She is now on oxycodone 1 tab every 6 hours. This was further decreased to 5 mg BID. She still has the narcan at home as well. She is taking 4 xanax a day and went down to 3 for a short period but feels the hydroxyzine is not effective. She does feel the increase in Abilify has helped with her mood swings and depression. She feels less irritable and better able to control her emotions. She explained that she is going to be having a script of Narcan at home as advised by her insurance company due to having both benzos and opiates. We again discussed this medication interaction the risk of involved. Patient identifies current stressors to include her recent surgery and the surgery of a loved one. Others include problems with her mobile home breaking and financial stress. Psychosis is absent. Suicidal ideation and homicidal ideation is/are absent. ROS: Constitutional: No fever. No chills. Integumentary System: No itching. No rash. Ears, Nose, Throat:No tinnitus. No hearing problems. No nasal congestion. Eyes: No visual changes or ocular pain. Respiratory System: No shortness of breath. No cough. Cardiovascular System: No chest pain. No edema. Gastrointestinal System: No nausea, vomiting, constipation or diarrhea. No abdominal pain. Genitourinary System: No urinary urgency. No urinary frequency. Endocrine System: No excessive sweating. No excessive hunger. No recent weight changes Neurology System: No headache. No loss of balance. No weakness. No sensory deficits. No tremor. Musculoskeletal System: Diffuse bone pain and joints. Arthritis Drugs and alcohol: Alc: none for several years, was daily prior, no DUI or treatments. Was daily to intox. Tob: 1/2 ppd for over 40 years. Attempted to quit March 2018. Other illicit drugs: none Past Medical, Family, and Social History: I reviewed the past medical and surgical history, the family history as necessary, and social history if needed. These items are indicated Marked as Reviewed in the history section of this encounter, including SMOKING HISTORY. MEDICATIONS: (Medications were reviewed and updated.) Current Outpatient Prescriptions on File Prior to Visit Medication Sig Dispense Refill - alendronate (FOSAMAX) 70 MG tablet Take on empty stomach once weekly sitting upright for full hour after taking with big glass of water. No other meds or food for 1 hour 4 tablet 12 - ALPRAZolam (XANAX) 1 MG tablet Take 1 tablet (1 mg total) by mouth 4 (four) times a day as needed. FOR ANXIETY 120 tablet 4 - ARIPiprazole (ABILIFY) 10 MG tablet Take 1 tablet (10 mg total) by mouth once daily. 30 tablet 1 - atorvastatin (LIPITOR) 20 MG tablet TAKE ONE TABLET BY MOUTH DAILY 90 tablet 0 - camphor-menthol (SARNA ANTI-ITCH) lotion Apply topically as needed for itching. (Patient not taking: Reported on 04/05/2018 ) 222 mL 0 - cholecalciferol (VITAMIN D3) 5,000 unit capsule TAKE ONE CAPSULE BY MOUTH DAILY 30 capsule 10 - diaper,brief,adult,disposable Misc 1 application by Miscellaneous route 2 (two) times a day. 96 each 5 - escitalopram oxalate (LEXAPRO) 20 MG tablet Take 1 tablet (20 mg total) by mouth once daily. 90 tablet 5 - FLOVENT DISKUS 250 mcg/actuation Disk with Device INHALE ONE PUFF BY MOUTH TWICE A DAY *RINSE MOUTH AFTER USE* 60 each 4 - food supplemt, lactose-reduced (ENSURE) Liquid Drink 2 bottles per day. Patient requests strawberry. 40330 mL PRN - guaiFENesin 200 mg tablet TAKE THREE TABLETS BY MOUTH TWICE A DAY FOR 10 DAYS 60 tablet 0 - hydroCHLOROthiazide (HYDRODIURIL) 25 MG tablet Take 1 tablet (25 mg total) by mouth once daily. 30 tablet 5 - hydrOXYzine (ATARAX) 25 MG tablet Take 1 tablet (25 mg total) by mouth every 8 (eight) hours as needed for anxiety. 60 tablet 1 - ipratropium-albuterol (DUO-NEB) 0.5-2.5 mg/3 mL nebulizer Inhale 3 mL into the lungs 4 (four) times a day. 360 vial 3 - Lactobacillus acidoph-pectin (ACIDOPHILUS-PECTIN) 75 million cell -100 mg Capsule Take 1 capsule by mouth 2 (two) times a day. 60 capsule 0 - lisinopril (PRINIVIL,ZESTRIL) 10 MG tablet TAKE ONE TABLET BY MOUTH DAILY 90 tablet 1 - miscellaneous medical supply Mis Use right hand thumb spica splint 1 each 0 - montelukast (SINGULAIR) 10 mg tablet TAKE ONE TABLET BY MOUTH EVERY EVENING 30 tablet 4 - nicotine (NICODERM CQ) 21 mg/[address] 1 patch onto the skin every 24 (twenty-four) hours. 28 patch 1 - omeprazole (PRILOSEC) 40 MG capsule TAKE ONE CAPSULE BY MOUTH DAILY 30 capsule 10 - oxyCODONE-acetaminophen (PERCOCET) 5-325 mg tablet Take 1-2 tablets by mouth once every 4-6 hours as needed for pain. Max Daily amount 6 tablets. 40 tablet 0 - [START ON 05/02/2018] oxyCODONE-acetaminophen (PERCOCET) 5-325 mg tablet Take 1-2 tablets by mouth daily as needed for pain. Max Daily Amount: 2 tablets 60 tablet 0 - polyethylene glycol (MIRALAX) 17 gram packet Take 17 g by mouth once daily. 14 each 0 - potassium chloride (KLOR-CON) 10 MEQ CR tablet TAKE TWO TABLETS BY MOUTH TWICE A DAY 120 tablet 4 - prazosin (MINIPRESS) 1 MG capsule Take 1 capsule (1 mg total) by mouth daily every night. 60 capsule 1 - prazosin (MINIPRESS) 2 MG capsule TAKE TWO CAPSULES BY MOUTH EVERY NIGHT AT BEDTIME 180 capsule 0 - predniSONE (DELTASONE) 20 MG tablet Take one pill twice daily am and noon for 5 days then one pill daily for two days then one half pill daily for 2 days 13 tablet 0 - PROAIR HFA 90 mcg/actuation inhaler INHALE TWO PUFFS BY MOUTH FOUR TIMES A DAY 8.5 each 4 - SENNALAX-S 8.6-50 mg TAKE TWO TABLETS BY MOUTH TWICE A DAY (Patient taking differently: No sig reported) 120 tablet 10 - underpads Pad Use as needed for incontinence 300 each 10 No current facility-administered medications on file prior to visit. Review of Systems: Pertinent items are noted in HPI. All other systems are negative. Psychiatric Single System Examination: Constitutional: Vital Signs: (3 or more of 7 must include BP/P/Weight/Height) Vitals: 04/27/18 1339 BP: 138/80 Pulse: 78 Weight: 59.9 kg (132 lb) General Appearance: 63 y.o. White or female, who appears older than stated age. Patient is healthy, pleasant, mild distress, cooperative, oriented to time, place and person, cast on her right arm Musculoskeletal: ( 1 or 2 may be examined) Muscle Strength and Tone: Normal Gait and Station: normal gait and station Psychiatric: Speech: normal rate, volume, and tone Mood: euthymic and mildly anxious Affect: mood congruent; Thought Processes: logical goal directed Thought Content: Contracts for safety outside of hospital.; normal Associations: logical MENTAL STATUS EXAM: Orientation: person, place, time, situation Recent / Remote Memory: immediate , recent and remote Attention Span and Concentration: good Language: good Fund of Knowledge: average for age Estimated Level of Intelligence: average Insight: good Judgement: fair Therapy Done: Supportive and Psychoeducation Time spent doing therapy was 18 minutes. Target symptoms : Anxiety and depression Goals of therapy : To improve functioning and to cope with anxiety and depression Frequency of treatments : biweekly to monthly Prognosis and progress to date : Fair Estimated duration of treatment : 6-12 months as an outpatient Psychotherapy was provided. Notes below. T[]he discussion concerned the following topics: 1. Diagnostic results, impressions, recommended studies 2. Coping skills 3. Risk and benefits of treatment options, in particular about benzo and opiate concurrent use 4. Instructions regarding treatment and follow up 5. Importance of compliance 6. Risk reduction 7. Patient education 8. Physical concerns [x] MAJOR STRESSORS [x] Supportive psychotherapy through providing [x] emotional support, [x]empathy, [x]reinforcing assets and strengthening defenses, [x]suggestion, and []medication education and psychoeducation. Please see HPI for more details. Assessment/Plan: Diagnosis: MDD, recurrent Panic Disorder Alcohol use disorder, moderate, in sustained remission PTSD ASSESSMENT/PLAN: - Ms. Ibis Tay is a 63 y.o. female with previous diagnosis as noted above, who presents for a follow up. Patient was last seen in clinic on 03-13-18 at which point Abilify was increased, hydroxyzine added, xanax decreased and lamotrigine was being removed. Patient is a 62 y.o. female with a history of Major Depression, Panic Disorder and Posttraumatic Stress Disorder. The patient has a significant history of trauma including the murder of her son. She struggles with daily panic attacks and nightmares. She shows significant dependence on Xanax and we discussed the long-term plan to reduce and ultimately remove this medication. At this time we discussed changing xanax to ativan. She has also been decreasing her opiates. She is a difficult case due to her various medications and interactions. - Continue psychotropic medications: Continue Lexapro. Prazosin 1 mg PO QHS Continue Abilify 10 mg PO QDAY as an adjunct removing hydroxyzine 25 mg PO BID PRN (lack of effect) Discussed Changing Xanax 3-4 mg a day to Ativan 1 mg QID PRN with a plan to remove further. We will wait until after the holidays (sons murder anniversary is June) Previous trial of psychotropics: Antidepressants: Lexapro, Wellbutrin, Remeron (sleep walking) and Amitriptyline Antipsychotics: Seroquel Mood Stabilizer: Lamictal (I removed this due to ineffectiveness) and Neurontin . Gabapentin caused over sedation Stimulants: none Anti-anxiety or sleep aids: Valium, Alprazolam and Ambien Needing to get off of the combination of Xanax and percocet. This is worse due to her prior lung surgery and COPD. She explained that she is going to be having a script of Narcan at home as advised by her insurance company due to having both benzos and opiates. We again discussed this medication interaction the risk of involved. Patient was informed that they must call one week in advance for general refills and no less than 10 days in advance for controlled substance refills. - Refills (as above): yes - Pt does not appear to be an imminent danger to self or others within a reasonable degree of psychiatric certainty and is appropriate for continued outpatient treatment. Safety plan was reviewed, including calling 911 or going to the nearest ER if necessary. For any non-emergent issues they are to call the office. -Informed consent was obtained verbally. The risks, benefits, side effects, alternatives and pt questions/concerns were addressed and discussed in detail. Pt agreed with the abovementioned plan. - Follow up in 6 weeks, or sooner if needed. - An After Visit Summary was printed and given to the patient requesting that the follow-up appointment be made today, to refrain from drug and alcohol use while taking prescription medications and discussed what to do if they become suicidal. 1:47 PM, 04/27/2018 Parth Lemos MD ? [facility] 2018-04-25 08:30:00 OFFICE VISIT CHIEF COMPLAINT Back Pain SUBJECTIVE Ibis Tay is a 63 y.o. female who presents for follow-up of Back Pain with diagnosis of: 1. cervical stenosis with radiculopathy. 2. 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 Headaches With last encounter we increased percocet 10/325 0.5-1 po qid and she notes the pain is not as well controlled as wehen she was taking 4/day She reports that she continues on xanax. I had a long discussion with patient that I am not longer comfortable continuing patient on strong opiate therapy with concordant use of xanax, She is averaging 4mg/day of xanax as well as oxycodone 10/[address] She [address] that [address] Lemos is in the process of decreasing her xanax dosing. Patient currently is on Percocet 10/325 1 qid states the medication is not effective giving the average pain rating of: 10/10 and feels that the pain is not manageable. New or changing adverse side effects:none New or changing pain complaints:none Other concerns: none ROS Constitutional: denies dizziness, sedation, or somnolence Psychological: denies altered mentation or euphoria GI: deniesconstipation or diarrhea Musc: denies acute change in numbness, weakness, or tingling of extemities MEDICATIONS Current Outpatient Prescriptions Medication Sig Dispense Refill - alendronate (FOSAMAX) 70 MG tablet Take on empty stomach once weekly sitting upright for full hour after taking with big glass of water. No other meds or food for 1 hour 4 tablet 12 - ALPRAZolam (XANAX) 1 MG tablet Take 1 tablet (1 mg total) by mouth 4 (four) times a day as needed. FOR ANXIETY 120 tablet 4 - ARIPiprazole (ABILIFY) 10 MG tablet Take 1 tablet (10 mg total) by mouth once daily. 30 tablet 1 - atorvastatin (LIPITOR) 20 MG tablet TAKE ONE TABLET BY MOUTH DAILY 90 tablet 0 - camphor-menthol (SARNA ANTI-ITCH) lotion Apply topically as needed for itching. (Patient not taking: Reported on 04/05/2018 ) 222 mL 0 - cholecalciferol (VITAMIN D3) 5,000 unit capsule TAKE ONE CAPSULE BY MOUTH DAILY 30 capsule 10 - diaper,brief,adult,disposable Misc 1 application by Miscellaneous route 2 (two) times a day. 96 each 5 - escitalopram oxalate (LEXAPRO) 20 MG tablet Take 1 tablet (20 mg total) by mouth once daily. 90 tablet 5 - FLOVENT DISKUS 250 mcg/actuation Disk with Device INHALE ONE PUFF BY MOUTH TWICE A DAY *RINSE MOUTH AFTER USE* 60 each 4 - food supplemt, lactose-reduced (ENSURE) Liquid Drink 2 bottles per day. Patient requests strawberry. 87526 mL PRN - guaiFENesin 200 mg tablet TAKE THREE TABLETS BY MOUTH TWICE A DAY FOR 10 DAYS 60 tablet 0 - hydroCHLOROthiazide (HYDRODIURIL) 25 MG tablet Take 1 tablet (25 mg total) by mouth once daily. 30 tablet 5 - hydrOXYzine (ATARAX) 25 MG tablet Take 1 tablet (25 mg total) by mouth every 8 (eight) hours as needed for anxiety. 60 tablet 1 - ipratropium-albuterol (DUO-NEB) 0.5-2.5 mg/3 mL nebulizer Inhale 3 mL into the lungs 4 (four) times a day. 360 vial 3 - Lactobacillus acidoph-pectin (ACIDOPHILUS-PECTIN) 75 million cell -100 mg Capsule Take 1 capsule by mouth 2 (two) times a day. 60 capsule 0 - lisinopril (PRINIVIL,ZESTRIL) 10 MG tablet TAKE ONE TABLET BY MOUTH DAILY 90 tablet 1 - miscellaneous medical supply Misc Use right hand thumb spica splint 1 each 0 - montelukast (SINGULAIR) 10 mg tablet TAKE ONE TABLET BY MOUTH EVERY EVENING 30 tablet 4 - nicotine (NICODERM CQ) 21 mg/[address] 1 patch onto the skin every 24 (twenty-four) hours. 28 patch 1 - omeprazole (PRILOSEC) 40 MG capsule TAKE ONE CAPSULE BY MOUTH DAILY 30 capsule 10 - oxyCODONE-acetaminophen (PERCOCET) 5-325 mg tablet Take 1 tablet by mouth once every 4 (four) hours as needed. Take 1-2 tablets by mouth every 4-6 hours as needed for pain Max Daily Amount: 6 tablets 40 tablet 0 - [START ON 05/02/2018] oxyCODONE-acetaminophen (PERCOCET) 5-325 mg tablet Take 1-2 tablets by mouth daily as needed for pain. Max Daily Amount: 2 tablets 60 tablet 0 - polyethylene glycol (MIRALAX) 17 gram packet Take 17 g by mouth once daily. 14 each 0 - potassium chloride (KLOR-CON) 10 MEQ CR tablet TAKE TWO TABLETS BY MOUTH TWICE A DAY 120 tablet 4 - prazosin (MINIPRESS) 1 MG capsule Take 1 capsule (1 mg total) by mouth daily every night. 60 capsule 1 - prazosin (MINIPRESS) 2 MG capsule TAKE TWO CAPSULES BY MOUTH EVERY NIGHT AT BEDTIME 180 capsule 0 - predniSONE (DELTASONE) 20 MG tablet Take one pill twice daily am and noon for 5 days then one pill daily for two days then one half pill daily for 2 days 13 tablet 0 - PROAIR HFA 90 mcg/actuation inhaler INHALE TWO PUFFS BY MOUTH FOUR TIMES A DAY 8.5 each 4 - SENNALAX-S 8.6-50 mg TAKE TWO TABLETS BY MOUTH TWICE A DAY (Patient taking differently: No sig reported) 120 tablet 10 - underpads Pad Use as needed for incontinence 300 each 10 No current facility-administered medications for this visit. ALLERGIES Allergies Allergen Reactions - Penicillins Anaphylaxis - Gabapentin Other (See Comments) severe fatigue - Sulfa (Sulfonamide Antibiotics) Other (See Comments) Blisters inside and outside of mouth. - Wellbutrin [Bupropion Hcl] Other (See Comments) Body numbness and tingling PHYSICAL EXAM Vital Signs: Resp 12 Wt 60.3 kg (133 lb) BMI 24.33 kg/m2 Constitutional: Well nourished, well groomed, NAD. CARDIAC: Regular Rate LUNGS: Breathing nonlabored, no wheezing Neurologic: Alert & oriented x 3, normal gait, no focal deficits noted. Psychiatric: Affect normal, judgment normal, mood normal. Other Affected BA/OS: Neck pain with extension, pain radiating To LUE with parasthesias. ASSESSMENT AND PLAN Problem List Items Addressed This Visit None Visit Diagnoses Failed back syndrome - Primary Relevant Medications oxyCODONE-acetaminophen (PERCOCET) 5-325 mg tablet (Start on 05/02/2018) 2. LEFT Hip fracture 3. Low back pain Requested Prescriptions Signed Prescriptions Disp Refills - oxyCODONE-acetaminophen (PERCOCET) 5-325 mg tablet 60 tablet 0 Sig: Take 1-2 tablets by mouth daily as needed for pain. Max Daily Amount: 2 tablets PLAN: 1. cervical stenosis with radiculopathy. I will refill her prescription of oxycodone for treatment of her chronic pain 5/325 1-2 po qday on 05/02/18. I will f/u in 5 weeks 2. Acute on chronic pain: She may fill her prescription prescribed by her surgeon with the instruction of 1-2 po q4-6hrs prn pain #40 today (approx 7 day supply) and once completed will switch back to her chronic opiate dosing. 3. Chronic Pain with chronic opiate therapy: The risks/benefits of chronic opiate therapy was discussed with patient including failure of therapy, psychological addiction, physiological dependence, and risk withdrawal syndrome. Warning symptoms of potential opiate overuse/overdose were discussed including sedation, somnolence, and altered mentation were reviewed and I counseled patient these symptoms can occur even when patient have been on a stable dose and also can happen despite following physicians instructions. Alternative therapies were discussed including: non-opiate medications, interventional pain procedures, and Cognitive Behavioral Therapy. After discussing these alternatives with the patient, the patient has opted to decline these alternatives at this time. Patient has tried and failed more conservative measures and were either ineffective or intolerant. In my medical opinion non-opiate therapy is not appropriate to address the patient's medical condition at this time and will continue chronic opiate therapy after having addressed efficacy, adverse side effects, and safety of therapy with the patient. Patient verbally agrees. The patient indicates understanding of these issues and agrees with the plan. I reviewed the patient's medical information and medical history. I have reviewed the past medical, family, and social history sections including the medications and allergies listed in the above medical record. Electronically signed by: Isaías Cardenas, 04/25/2018 8:42 AM ISAÍAS CARDENAS [facility] 2018-04-18 15:06:06 INITIAL CUSTOM CAST EVALUATION Occupational [facility] [address] [facility] [address] Dept: [phone] Dept Loc: [phone] PATIENT INFORMATION Patient Name Jake BECKETT MRN Ibis Tay 1955 [id number] Today's Date: 04/18/2018 SOC Date: 04/18/2018 Onset Date: September Referring Physician: Amina Bowman,* Primary Insurance: Payor: [facility] MED[facility] / Plan: [facility] DUAL COMPLETE / Product Type: *No Product type* / [id number] Certification Dates: April 18, 2018 to July 19, 2018 Hospitalization Dates: Medical diagnosis: Right UCL repair Diagnosis Information Diagnosis Z47.89 (ICD-10-CM) - V54.9 (ICD-9-CM) - Orthopedic aftercare Visit #: 1 PRECAUTIONS Latex allergy: No Allergies Allergen Reactions - Penicillins Anaphylaxis - Gabapentin Other (See Comments) severe fatigue - Sulfa (Sulfonamide Antibiotics) Other (See Comments) Blisters inside and outside of mouth. - Wellbutrin [Bupropion Hcl] Other (See Comments) Body numbness and tingling Fall Risk: No SUBJECTIVE Ibis Tay is a 63 y.o. female who presents today s/p injury to right thumb that happened in September. She had surgery by Dr Bowman on 04/05/18 for repair of right UCL for thumb Pain Ratin/1 Patient Goals: Heal thumb HISTORICAL INFORMATION PMH and Surgical History have all been reviewed and are contained in [facility] EMR. Medications: Current Outpatient Prescriptions on File Prior to Encounter Medication Sig Dispense Refill - alendronate (FOSAMAX) 70 MG tablet Take on empty stomach once weekly sitting upright for full hour after taking with big glass of water. No other meds or food for 1 hour 4 tablet 12 - ALPRAZolam (XANAX) 1 MG tablet Take 1 tablet (1 mg total) by mouth 4 (four) times a day as needed. FOR ANXIETY 120 tablet 4 - ARIPiprazole (ABILIFY) 10 MG tablet Take 1 tablet (10 mg total) by mouth once daily. 30 tablet 1 - atorvastatin (LIPITOR) 20 MG tablet TAKE ONE TABLET BY MOUTH DAILY 90 tablet 0 - camphor-menthol (SARNA ANTI-ITCH) lotion Apply topically as needed for itching. (Patient not taking: Reported on 04/05/2018 ) 222 mL 0 - cholecalciferol (VITAMIN D3) 5,000 unit capsule TAKE ONE CAPSULE BY MOUTH DAILY 30 capsule 10 - diaper,brief,adult,disposable Misc 1 application by Miscellaneous route 2 (two) times a day. 96 each 5 - escitalopram oxalate (LEXAPRO) 20 MG tablet Take 1 tablet (20 mg total) by mouth once daily. 90 tablet 5 - FLOVENT DISKUS 250 mcg/actuation Disk with Device INHALE ONE PUFF BY MOUTH TWICE A DAY *RINSE MOUTH AFTER USE* 60 each 4 - food supplemt, lactose-reduced (ENSURE) Liquid Drink 2 bottles per day. Patient requests strawberry. 64981 mL PRN - guaiFENesin 200 mg tablet TAKE THREE TABLETS BY MOUTH TWICE A DAY FOR 10 DAYS 60 tablet 0 - hydroCHLOROthiazide (HYDRODIURIL) 25 MG tablet Take 1 tablet (25 mg total) by mouth once daily. 30 tablet 5 - hydrOXYzine (ATARAX) 25 MG tablet Take 1 tablet (25 mg total) by mouth every 8 (eight) hours as needed for anxiety. 60 tablet 1 - ipratropium-albuterol (DUO-NEB) 0.5-2.5 mg/3 mL nebulizer Inhale 3 mL into the lungs 4 (four) times a day. 360 vial 3 - Lactobacillus acidoph-pectin (ACIDOPHILUS-PECTIN) 75 million cell -100 mg Capsule Take 1 capsule by mouth 2 (two) times a day. 60 capsule 0 - lisinopril (PRINIVIL,ZESTRIL) 10 MG tablet Take 1 tablet (10 mg total) by mouth once daily. 90 tablet 2 - miscellaneous medical [place] [facility] [place] hand thumb spica splint 1 each 0 - montelukast (SINGULAIR) 10 mg tablet TAKE ONE TABLET BY MOUTH EVERY EVENING 30 tablet 4 - nicotine (NICODERM CQ) 21 mg/[address] 1 patch onto the skin every 24 (twenty-four) hours. 28 patch 1 - omeprazole (PRILOSEC) 40 MG capsule TAKE ONE CAPSULE BY MOUTH DAILY 30 capsule 10 - oxyCODONE-acetaminophen (PERCOCET) 5-325 mg tablet Take 1-2 tablets by mouth daily as needed for pain. Max Daily Amount: 2 tablets 60 tablet 0 - oxyCODONE-acetaminophen (PERCOCET) 5-325 mg tablet Take 1 tablet by mouth once every 4 (four) hours as needed. Take 1-2 tablets by mouth every 4-6 hours as needed for pain Max Daily Amount: 6 tablets 40 tablet 0 - polyethylene glycol (MIRALAX) 17 gram packet Take 17 g by mouth once daily. 14 each 0 - potassium chloride (KLOR-CON) 10 MEQ CR tablet Take 2 tablets (20 mEq total) by mouth 2 (two) times a day. 120 tablet 5 - prazosin (MINIPRESS) 1 MG capsule Take 1 capsule (1 mg total) by mouth daily every night. 60 capsule 1 - prazosin (MINIPRESS) 2 MG capsule TAKE TWO CAPSULES BY MOUTH EVERY NIGHT AT BEDTIME 180 capsule 0 - predniSONE (DELTASONE) 20 MG tablet Take one pill twice daily am and noon for 5 days then one pill daily for two days then one half pill daily for 2 days 13 tablet 0 - PROAIR HFA 90 mcg/actuation inhaler INHALE TWO PUFFS BY MOUTH FOUR TIMES A DAY 8.5 each 4 - SENNALAX-S 8.6-50 mg TAKE TWO TABLETS BY MOUTH TWICE A DAY (Patient taking differently: No sig reported) 120 tablet 10 - underpads Pad Use as needed for incontinence 300 each 10 Current Facility-Administered Medications on File Prior to Encounter Medication Dose Route Frequency Provider Last Rate Last Dose - Bupivacaine-EPINEPHrine PF (MARCAINE- PF w/EPI) 0.25 %-1:200,000 injection 10 mL 10 mL IntraDermal Once Amina Bowman MD Radiology: OBJECTIVE Patient was seen today for a custom fabricated thumb spica cast with IP for thumb free for the right hand. Education: Patient was instructed in use ,care and precautions of cast home program per physician order. ASSESSMENT Rehab potential is good based on goals. Recommendations: One time evaluation completed Evaluation Complexity: History: Low complexity: includes a brief history including review of medical and/or therapy records relating to the presenting problem Examination: Low complexity: 1-3 performance deficits Decision Making: Clinical decision making of low complexity. Complexity: Low Complexity Evaluation G-CODES Functional score as indicated by use of foto and professional clinical judgement. Functional G- Code Limitation Code Current Status G8990 Other PT/OT current status CK - At least 40 percent but less than 60 percent impaired, limited or restricted Goal Status G8991 Other PT/OT goal status CK - At least 40 percent but less than 60 percent impaired, limited or restricted DC Status G8992 Other PT/OT D/C status CK - At least 40 percent but less than 60 percent impaired, limited or restricted GOALS Short term goals for one time visit: 1.Patient verbalizes understanding of wear and care program for custom cast- Met in one visit. 2.Patient able to verbalize skin care precautions- Met in one visit PLAN Frequency: One time visit. Patient was advised to contact therapist with concerns, adjustments or skin irritation. Skilled Services may include: Patient/Caregiver Education, OT Evaluation: low complexity (97408), Casting of Short Arm (27113), Splinting of Short Arm Static (37453) and Strapping of Toes (19803) Thank you for this referral of Ibis Tay to [facility]. Please call me If you have any questions or concerns. Sincerely, . Physician Signature: [facility] Physician Co-Signature requested electronically CONTACT INFORMATION [facility] [address] [facility] [address] Dept: [phone] Dept Loc: [phone] Electronically signed: 04/18/2018 3:06 PM MARIYA GUY [facility] 2018-04-18 11:15:00 Patient Ibis anderson s consent to Amina Bowman MD's use of Augmedix at today's visit. NA BRANDON [facility] 2018-04-18 11:15:00 CHIEF COMPLAINT 1. Orthopedic aftercare Ambulatory referral to Occupational Therapy 2. Pain Bupivacaine-EPINEPHrine PF (MARCAINE- PF w/EPI) 0.25 %-1:200,000 injection 10 mL HPI Ibis Tay is a 63 y.o. female, s/p repair/ reconstruction of right thumb ulnar collateral ligament on April 05, 2018. She reports pain at the surgical site. She has no fever. MEDICATIONS Outpatient Encounter Prescriptions as of 04/18/2018 Medication Sig Dispense Refill - alendronate (FOSAMAX) 70 MG tablet Take on empty stomach once weekly sitting upright for full hour after taking with big glass of water. No other meds or food for 1 hour 4 tablet 12 - ALPRAZolam (XANAX) 1 MG tablet Take 1 tablet (1 mg total) by mouth 4 (four) times a day as needed. FOR ANXIETY 120 tablet 4 - ARIPiprazole (ABILIFY) 10 MG tablet Take 1 tablet (10 mg total) by mouth once daily. 30 tablet 1 - atorvastatin (LIPITOR) 20 MG tablet TAKE ONE TABLET BY MOUTH DAILY 90 tablet 0 - camphor-menthol (SARNA ANTI-ITCH) lotion Apply topically as needed for itching. (Patient not taking: Reported on 04/05/2018 ) 222 mL 0 - cholecalciferol (VITAMIN D3) 5,000 unit capsule TAKE ONE CAPSULE BY MOUTH DAILY 30 capsule 10 - diaper,brief,adult,disposable Misc 1 application by Miscellaneous route 2 (two) times a day. 96 each 5 - escitalopram oxalate (LEXAPRO) 20 MG tablet Take 1 tablet (20 mg total) by mouth once daily. 90 tablet 5 - FLOVENT DISKUS 250 mcg/actuation Disk with Device INHALE ONE PUFF BY MOUTH TWICE A DAY *RINSE MOUTH AFTER USE* 60 each 4 - food supplemt, lactose-reduced (ENSURE) Liquid Drink 2 bottles per day. Patient requests strawberry. 27669 mL PRN - guaiFENesin 200 mg tablet TAKE THREE TABLETS BY MOUTH TWICE A DAY FOR 10 DAYS 60 tablet 0 - hydroCHLOROthiazide (HYDRODIURIL) 25 MG tablet Take 1 tablet (25 mg total) by mouth once daily. 30 tablet 5 - hydrOXYzine (ATARAX) 25 MG tablet Take 1 tablet (25 mg total) by mouth every 8 (eight) hours as needed for anxiety. 60 tablet 1 - ipratropium-albuterol (DUO-NEB) 0.5-2.5 mg/3 mL nebulizer Inhale 3 mL into the lungs 4 (four) times a day. 360 vial 3 - Lactobacillus acidoph-pectin (ACIDOPHILUS-PECTIN) 75 million cell -100 mg Capsule Take 1 capsule by mouth 2 (two) times a day. 60 capsule 0 - miscellaneous medical supply Misc Use right hand thumb spica splint 1 each 0 - montelukast (SINGULAIR) 10 mg tablet TAKE ONE TABLET BY MOUTH EVERY EVENING 30 tablet 4 - nicotine (NICODERM CQ) 21 mg/[address] 1 patch onto the skin every 24 (twenty-four) hours. 28 patch 1 - omeprazole (PRILOSEC) 40 MG capsule TAKE ONE CAPSULE BY MOUTH DAILY 30 capsule 10 - oxyCODONE-acetaminophen (PERCOCET) 5-325 mg tablet Take 1-2 tablets by mouth daily as needed for pain. Max Daily Amount: 2 tablets 60 tablet 0 - oxyCODONE-acetaminophen (PERCOCET) 5-325 mg tablet Take 1 tablet by mouth once every 4 (four) hours as needed. Take 1-2 tablets by mouth every 4-6 hours as needed for pain Max Daily Amount: 6 tablets 40 tablet 0 - polyethylene glycol (MIRALAX) 17 gram packet Take 17 g by mouth once daily. 14 each 0 - prazosin (MINIPRESS) 1 MG capsule Take 1 capsule (1 mg total) by mouth daily every night. 60 capsule 1 - prazosin (MINIPRESS) 2 MG capsule TAKE TWO CAPSULES BY MOUTH EVERY NIGHT AT BEDTIME 180 capsule 0 - predniSONE (DELTASONE) 20 MG tablet Take one pill twice daily am and noon for 5 days then one pill daily for two days then one half pill daily for 2 days 13 tablet 0 - PROAIR HFA 90 mcg/actuation inhaler INHALE TWO PUFFS BY MOUTH FOUR TIMES A DAY 8.5 each 4 - SENNALAX-S 8.6-50 mg TAKE TWO TABLETS BY MOUTH TWICE A DAY (Patient taking differently: No sig reported) 120 tablet 10 - underpads Pad Use as needed for incontinence 300 each 10 - [DISCONTINUED] lisinopril (PRINIVIL,ZESTRIL) 10 MG tablet Take 1 tablet (10 mg total) by mouth once daily. 90 tablet 2 - [DISCONTINUED] potassium chloride (KLOR-CON) 10 MEQ CR tablet Take 2 tablets (20 mEq total) by mouth 2 (two) times a day. 120 tablet 5 Facility-Administered Encounter Medications as of 04/18/2018 Medication Dose Route Frequency Provider Last Rate Last Dose - Bupivacaine-EPINEPHrine PF (MARCAINE- PF w/EPI) 0.25 %-1:200,000 injection 10 mL 10 mL IntraDermal Once Amina Bowman MD ALLERGIES Allergies Allergen Reactions - Penicillins Anaphylaxis - Gabapentin Other (See Comments) severe fatigue - Sulfa (Sulfonamide Antibiotics) Other (See Comments) Blisters inside and outside of mouth. - Wellbutrin [Bupropion Hcl] Other (See Comments) Body numbness and tingling PHYSICAL EXAM BP 127/79 Pulse 89 Ht 157.5 cm (5' 2) Wt 59.4 kg (131 lb) BMI 23.96 kg/m2 Ibis Tay is a pleasant 63 y.o. female patient. Right Hand/Digits: Right thumb is viable. Incision is healing well. No swelling of hand/fingers. No open wounds. No clinical evidence of local infection. All digits warm and well-perfused. No numbness on the dorsum/volar aspect of the thumb sutures were removed in the office after administration of local anesthetic. ASSESSMENT 63 y.o. female, s/p repair/ reconstruction of right thumb ulnar collateral ligament on April 05, 2018. She is overall doing well. PLAN Referred to OT for right thumb spica cast. Follow up in 4 weeks. range of motion exercises of fingers and thumb IP joint. Mrs. Tay agrees with the plan. Patient was instructed to contact my office if there are any new concerns or questions. The patient and family/friends if present were apprised of the use of a scribe through remote viewing and all parties consented to conducting the visit in this manner. Documentation assistance provided by Breezy Merino, scribing for Amina Bowman MD, on 04/18/18. Electronically signed by: Amina Bowman, 04/18/2018 6:23 PM [address]MAN [facility] 2018-04-05 20:03:00 DATE OF OPERATION: 04/05/2018 SURGEON: JONE Trevizo MS FACS BISTRO SERVER: [employer] Jaquez PGY1 PREOPERATIVE DIAGNOSIS(ES): Right thumb ulnar collateral ligament injury. POSTOPERATIVE DIAGNOSIS(ES): Right thumb ulnar collateral ligament injury. PROCEDURE(S): Reconstruction of right thumb ulnar collateral ligament using palmaris longus tendon graft and Arthrex 3.5 mm internal brace. ANESTHESIA: General anesthesia. IV FLUIDS: 900 cc of crystalloid. ESTIMATED BLOOD LOSS: Less than 5 cc. TOTAL TOURNIQUET TIME: 65 minutes. COMPLICATIONS: None. DRAINS: None. SPECIMENS REMOVED: None. BACTERIOLOGY: None. INDICATION: Ms Ibis Tay is a pleasant 62-year-old female who sustained injury to her right thumb in September 2017. Since then, she has been complaining of worsening pain on the ulnar aspect of her right thumb metacarpophalangeal joint. On examination, she was noted to have tenderness on the ulnar aspect of the right thumb metacarpophalangeal joint. She also has tenderness over right thumb base. Upon radially stressing the right thumb ulnar collateral ligament, there is 20 degrees of increased laxity compared to the contralateral hand. X-rays did not reveal any thumb MCP joint arthritis. Thumb CMC arthritis present. She received a steroid injection for her right thumb base arthritis. Today, she does not report any pain in her thumb CMC joint. Palmaris longus tendon present. Risks, benefits and alternatives of repair/reconstruction of right thumb ulnar collateral ligament were discussed with her. The risks were explained to be including, but not limited to, bleeding, infection, requirement for revision, reoperation, wound healing problems, stiffness of the thumb, injury to the radial sensory nerve, injury to the neurovascular structures, injury to flexor/extensor tendons, among others. Patient agreed to the surgical procedure, and after obtaining informed consent, we proceeded. FINDINGS: Stener lesion with complete disruption of ulnar collateral ligament. PROCEDURE: After the patient was taken to the operating room, she was placed supine on the operating room table. She received preoperative intravenous antibiotics prior to tourniquet inflation. After general anesthesia was established, her right upper extremity was prepped and draped in standard surgical fashion. Using an Esmarch bandage, her right upper extremity was exsanguinated and the tourniquet was inflated. Lazy s- shaped incision was made on the dorsal/ulnar aspect of her right thumb over the metacarpophalangeal joint. The incision was carried through skin and subcutaneous tissues. Sensory radial nerve branches were identified and protected.There was noted to be a Stener lesion. Adductor aponeurosis was incised 3 mm volar and ulnar to the EPL tendon. The MCP joint capsule was then exposed. Since there was no ligament soft tissue available for primary repair, a decision was made to perform reconstruction palmaris longus tendon graft. A horizontal incision was made on the volar aspect of her right wrist at the level of the distal palmar crease. The incision was carried through skin and subcutaneous tissues. The palmaris longus tendon was then dissected. Another horizontal incision was made proximal to this incision. The tendon graft was then harvested. Arthrex 3.5 mm internal brace was then used. The tendon was secured on the dorsal/ulnar aspect of the thumb metacarpal head and volar/ulnar aspect of the base of proximal phalanx of the thumb. The tendon graft was firmly secured. Strong repair was achieved. Local anesthetic was administered for postoperative pain control. Tourniquet was taken down. Good hemostasis was achieved. The MCP joint capsule was reapproximated using interrupted 3-0 Ethibond sutures. Adductor aponeurosis was reapproximated using 4-0 Vicryl suture. Skin was approximated using interrupted 4-0 nylon sutures. Tendon graft donor site was closed using interrupted 4-0 nylon sutures. Sterile dressings were then placed. A forearm based thumb spica splint was applied. All digits were warm and well perfused at end of the procedure. She tolerated the procedure well. After completion of the procedure, she was transferred to the recovery area in a stable condition. POSTOPERATIVE COURSE: She was advised to keep her right upper extremity elevated. Range of motion of fingers. We will follow up with her in ten to fourteen days for suture removal. /GSR Job: [id number] SR /rbt Doc: 04 CIERRA BOWMANLAURA CASTRO 2018-04-03 10:00:00 Ibis Tay a 63 y.o. female is here for Lab draw visit. Labs drawn per orders or protocol. Patient tolerated well. No follow up needed. Future orders released. She was to have a repeat cbc done. This was not ordered did order it while here. Electronically signed by: Marge Barber 04/03/2018 MARGE BARBER [facility] 2018-03-27 08:30:00 OFFICE VISIT CHIEF COMPLAINT No chief complaint on file. SUBJECTIVE Ibis Tay is a 63 y.o. female who presents for follow-up of No chief complaint on file. with diagnosis of: 1. cervical stenosis with radiculopathy. 2. 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 Headaches With last encounter we increased percocet 10/325 0.5-1 po qid and she notes the pain is not as well controlled as wehen she was taking 4/day She reports that she continues on xanax. I had a long discussion with patient that I am not longer comfortable continuing patient on strong opiate therapy with concordant use of xanax, She is averaging 4mg/day of xanax as well as oxycodone 10/325 qid[address] She [address] that Dr[address] Lemos is in the process of decreasing her xanax dosing. Patient currently is on Percocet 10/325 1 qid states the medication is not effective giving the average pain rating of: 10/10 and feels that the pain is not manageable. New or changing adverse side effects:none New or changing pain complaints:none Other concerns: none ROS Constitutional: denies dizziness, sedation, or somnolence Psychological: denies altered mentation or euphoria GI: deniesconstipation or diarrhea Musc: denies acute change in numbness, weakness, or tingling of extemities MEDICATIONS Current Outpatient Prescriptions Medication Sig Dispense Refill - alendronate (FOSAMAX) 70 MG tablet Take on empty stomach once weekly sitting upright for full hour after taking with big glass of water. No other meds or food for 1 hour 4 tablet 12 - ALPRAZolam (XANAX) 1 MG tablet Take 1 tablet (1 mg total) by mouth 4 (four) times a day as needed. FOR ANXIETY 120 tablet 4 - ARIPiprazole (ABILIFY) 10 MG tablet Take 1 tablet (10 mg total) by mouth once daily. 30 tablet 1 - atorvastatin (LIPITOR) 20 MG tablet TAKE ONE TABLET BY MOUTH DAILY 90 tablet 0 - camphor-menthol (SARNA ANTI-ITCH) lotion Apply topically as needed for itching. 222 mL 0 - cholecalciferol (VITAMIN D3) 5,000 unit capsule TAKE ONE CAPSULE BY MOUTH DAILY 30 capsule 10 - diaper,brief,adult,disposable Misc 1 application by Miscellaneous route 2 (two) times a day. 96 each 5 - escitalopram oxalate (LEXAPRO) 20 MG tablet Take 1 tablet (20 mg total) by mouth once daily. 90 tablet 5 - FLOVENT DISKUS 250 mcg/actuation Disk with Device INHALE ONE PUFF BY MOUTH TWICE A DAY *RINSE MOUTH AFTER USE* 60 each 4 - food supplemt, lactose-reduced (ENSURE) Liquid Drink 2 bottles per day. Patient requests strawberry. 36792 mL PRN - guaiFENesin 200 mg tablet TAKE THREE TABLETS BY MOUTH TWICE A DAY FOR 10 DAYS 60 tablet 0 - hydroCHLOROthiazide (HYDRODIURIL) 25 MG tablet Take 1 tablet (25 mg total) by mouth once daily. 30 tablet 5 - hydrOXYzine (ATARAX) 25 MG tablet Take 1 tablet (25 mg total) by mouth every 8 (eight) hours as needed for anxiety. 60 tablet 1 - ipratropium-albuterol (DUO-NEB) 0.5-2.5 mg/3 mL nebulizer Inhale 3 mL into the lungs 4 (four) times a day. 360 vial 3 - Lactobacillus acidoph-pectin (ACIDOPHILUS-PECTIN) 75 million cell -100 mg Capsule Take 1 capsule by mouth 2 (two) times a day. 60 capsule 0 - lisinopril (PRINIVIL,ZESTRIL) 10 MG tablet Take 1 tablet (10 mg total) by mouth once daily. 90 tablet 2 - miscellaneous medical [place] [facility] [place] spica splint 1 each 0 - montelukast (SINGULAIR) 10 mg tablet TAKE ONE TABLET BY MOUTH EVERY EVENING 30 tablet 4 - nicotine (NICODERM CQ) 21 mg/[address] 1 patch onto the skin every 24 (twenty-four) hours. 28 patch 1 - nicotine 21-14-7 mg/24 hr Patch, TD Daily, Sequential 6 weeks 21 mg patch then decrtease to 14 mg patch x 2 weeks then 2 weeks of 7 Mg then stop . Change patch daily 56 each 0 - omeprazole (PRILOSEC) 40 MG capsule TAKE ONE CAPSULE BY MOUTH DAILY 30 capsule 10 - oxyCODONE-acetaminophen (PERCOCET) 5-325 mg tablet Take 1-2 tablets by mouth daily as needed for pain. Max Daily Amount: 2 tablets 60 tablet 0 - polyethylene glycol (MIRALAX) 17 gram packet Take 17 g by mouth once daily. 14 each 0 - potassium chloride (KLOR-CON) 10 MEQ CR tablet Take 2 tablets (20 mEq total) by mouth 2 (two) times a day. 120 tablet 5 - prazosin (MINIPRESS) 1 MG capsule Take 1 capsule (1 mg total) by mouth daily every night. 60 capsule 1 - predniSONE (DELTASONE) 20 MG tablet Take one pill twice daily am and noon for 5 days then one pill daily for two days then one half pill daily for 2 days 13 tablet 0 - PROAIR HFA 90 mcg/actuation inhaler INHALE TWO PUFFS BY MOUTH FOUR TIMES A DAY 8.5 each 4 - SENNALAX-S 8.6-50 mg TAKE TWO TABLETS BY MOUTH TWICE A DAY (Patient taking differently: No sig reported) 120 tablet 10 - underpads Pad Use as needed for incontinence 300 each 10 No current facility-administered medications for this visit. ALLERGIES Allergies Allergen Reactions - Penicillins Anaphylaxis - Gabapentin Other (See Comments) severe fatigue - Sulfa (Sulfonamide Antibiotics) Other (See Comments) Blisters inside and outside of mouth. - Wellbutrin [Bupropion Hcl] Other (See Comments) Body numbness and tingling PHYSICAL EXAM Vital Signs: There were no vitals taken for this visit. Constitutional: Well nourished, well groomed, NAD. CARDIAC: Regular Rate LUNGS: Breathing nonlabored, no wheezing Neurologic: Alert & oriented x 3, normal gait, no focal deficits noted. Psychiatric: Affect normal, judgment normal, mood normal. Other Affected BA/OS: Neck pain with extension, pain radiating To LUE with parasthesias. ASSESSMENT AND PLAN Problem List Items Addressed This Visit None Visit Diagnoses Failed back syndrome - Primary Relevant Medications oxyCODONE-acetaminophen (PERCOCET) 5-325 mg tablet 2. LEFT Hip fracture 3. Low back pain Requested Prescriptions Signed Prescriptions Disp Refills - oxyCODONE-acetaminophen (PERCOCET) 5-325 mg tablet 60 tablet 0 Sig: Take 1-2 tablets by mouth daily as needed for pain. Max Daily Amount: 2 tablets PLAN: 1. cervical stenosis with radiculopathy. I will decrease her oxycdodone to 5/325 1-2 po qday. May consider increasing dosing back once shehas discontinued the xanax. 2. OA of bilateral Hip with h/o partial hip replacement on the Left : Stable 3. Headaches - Stable complaint and may be secondary to her cervicalgia. 4. Chronic Pain with chronic opiate therapy: The risks/benefits of chronic opiate therapy was discussed with patient including failure of therapy, psychological addiction, physiological dependence, and risk withdrawal syndrome. Warning symptoms of potential opiate overuse/overdose were discussed including sedation, somnolence, and altered mentation were reviewed and I counseled patient these symptoms can occur even when patient have been on a stable dose and also can happen despite following physicians instructions. Alternative therapies were discussed including: non-opiate medications, interventional pain procedures, and Cognitive Behavioral Therapy. After discussing these alternatives with the patient, the patient has opted to decline these alternatives at this time. Patient has tried and failed more conservative measures and were either ineffective or intolerant. In my medical opinion non-opiate therapy is not appropriate to address the patient's medical condition at this time and will continue chronic opiate therapy after having addressed efficacy, adverse side effects, and safety of therapy with the patient. Patient verbally agrees. The patient indicates understanding of these issues and agrees with the plan. I reviewed the patient's medical information and medical history. I have reviewed the past medical, family, and social history sections including the medications and allergies listed in the above medical record. Electronically signed by: Isaías Cardenas, 03/27/2018 8:37 AM ISAÍAS CARDENAS [facility] 2018-03-16 09:45:00 Patient, Ibis anderson s consent to Mike Ann Jr., MD's use of Augmedix at today's visit. IA CALVO [facility] 2018-03-16 09:45:00 Pre-Operative History and Physical HPI: Pre-Op Evaluation: Ibis Tay is a 63 y.o. female who presents to the office today for a preoperative consultation at the request of surgeon Dr. Bowman, orthopedist who plans on performing Repair/construction right thumb ulnar collateral ligament on March 22, 2018. The patient has a history of pain at the base of right thumb since September 2017 after sustaining a fall sideways. She states that her pain has been worsening since then. The patient has received Toradol 60 mg injection on 12/09/2017 with limited benefit. Currently, she has been following up with Dr. Bowman, orthopedist for the same. Surgical risk factors are smoker, hypertension,hypercholesterolemia/h yperlipidemia. Planned anesthesia: general. The patient has the following known anesthesia issues: none. Patients bleeding risk: no recent abnormal bleeding. Patient does not have objections to receiving blood products if needed. The patient reports a mole on her right eyelid, which is bothersome. She reports difficulty opening her eye. Per patient, the mole has been increasing in size. The patient has a history of frequent headaches for the last 3-4 years. She states that she experiences headaches every two days. She has tried toradol in the past with limited benefit. She also has a history of cervical stenosis of spine for which she saw Dr. Cardenas, pain specialist on 01/26/2018. She takes Percocet 10-325 mg 0.5 to 1 tablets three times a day with limited benefit. She has a history of lung cancer. She underwent Left upper lobectomy/lymph node dissection on 10/11/[address] Moore. The patient also has a history of COPD for which she uses Duo-Neb inhaler four times a day. The patient has resumed smoking cigarette, and she smokes about half a pack of cigarettes a day. Code Status: Code status: full code. (until there are chances of recovery) Allergies: Penicillins; Gabapentin; Sulfa (sulfonamide antibiotics); and Wellbutrin [bupropion hcl] Medications: Current Outpatient Prescriptions on File Prior to Visit Medication Sig Dispense Refill - alendronate (FOSAMAX) 70 MG tablet Take on empty stomach once weekly sitting upright for full hour after taking with big glass of water. No other meds or food for 1 hour 4 tablet 12 - ALPRAZolam (XANAX) 1 MG tablet Take 1 tablet (1 mg total) by mouth 4 (four) times a day as needed. FOR ANXIETY 120 tablet 4 - ARIPiprazole (ABILIFY) 10 MG tablet Take 1 tablet (10 mg total) by mouth once daily. 30 tablet 1 - atorvastatin (LIPITOR) 20 MG tablet TAKE ONE TABLET BY MOUTH DAILY 90 tablet 0 - camphor-menthol (SARNA ANTI-ITCH) lotion Apply topically as needed for itching. 222 mL 0 - cholecalciferol (VITAMIN D3) 5,000 unit capsule TAKE ONE CAPSULE BY MOUTH DAILY 30 capsule 10 - diaper,brief,adult,disposable Misc 1 application by Miscellaneous route 2 (two) times a day. 96 each 5 - escitalopram oxalate (LEXAPRO) 20 MG tablet Take 1 tablet (20 mg total) by mouth once daily. 90 tablet 5 - FLOVENT DISKUS 250 mcg/actuation Disk with Device INHALE ONE PUFF BY MOUTH TWICE A DAY *RINSE MOUTH AFTER USE* 60 each 4 - food supplemt, lactose-reduced (ENSURE) Liquid Drink 2 bottles per day. Patient requests strawberry. 19630 mL PRN - guaiFENesin 200 mg tablet TAKE THREE TABLETS BY MOUTH TWICE A DAY FOR 10 DAYS 60 tablet 0 - hydroCHLOROthiazide (HYDRODIURIL) 25 MG tablet Take 1 tablet (25 mg total) by mouth once daily. 30 tablet 5 - hydrOXYzine (ATARAX) 25 MG tablet Take 1 tablet (25 mg total) by mouth every 8 (eight) hours as needed for anxiety. 60 tablet 1 - ipratropium-albuterol (DUO-NEB) 0.5-2.5 mg/3 mL nebulizer Inhale 3 mL into the lungs 4 (four) times a day. 360 vial 3 - Lactobacillus acidoph-pectin (ACIDOPHILUS-PECTIN) 75 million cell -100 mg Capsule Take 1 capsule by mouth 2 (two) times a day. 60 capsule 0 - lisinopril (PRINIVIL,ZESTRIL) 10 MG tablet Take 1 tablet (10 mg total) by mouth once daily. 90 tablet 2 - montelukast (SINGULAIR) 10 mg tablet TAKE ONE TABLET BY MOUTH EVERY EVENING 30 tablet 4 - nicotine (NICODERM CQ) 21 mg/[address] 1 patch onto the skin every 24 (twenty-four) hours. 28 patch 1 - nicotine 21-14-7 mg/24 hr Patch, TD Daily, Sequential 6 weeks 21 mg patch then decrtease to 14 mg patch x 2 weeks then 2 weeks of 7 Mg then stop . Change patch daily 56 each 0 - omeprazole (PRILOSEC) 40 MG capsule TAKE ONE CAPSULE BY MOUTH DAILY 30 capsule 10 - oxyCODONE-acetaminophen (PERCOCET) 10-325 mg tablet Take 1 tablet by mouth 3 (three) times a day as needed for pain. To Last 30days. No early refills Max Daily Amount: 3 tablets 90 tablet 0 - polyethylene glycol (MIRALAX) 17 gram packet Take 17 g by mouth once daily. 14 each 0 - potassium chloride (KLOR-CON) 10 MEQ CR tablet Take 2 tablets (20 mEq total) by mouth 2 (two) times a day. 120 tablet 5 - prazosin (MINIPRESS) 1 MG capsule Take 1 capsule (1 mg total) by mouth daily every night. 60 capsule 1 - predniSONE (DELTASONE) 20 MG tablet Take one pill twice daily am and noon for 5 days then one pill daily for two days then one half pill daily for 2 days 13 tablet 0 - PROAIR HFA 90 mcg/actuation inhaler INHALE TWO PUFFS BY MOUTH FOUR TIMES A DAY 8.5 each 4 - SENNALAX-S 8.6-50 mg TAKE TWO TABLETS BY MOUTH TWICE A DAY (Patient taking differently: No sig reported) 120 tablet 10 - underpads Pad Use as needed for incontinence 300 each 10 - HYDROcodone-acetaminophen (NORCO) 5-325 mg tablet Take 1 tablet by mouth every 6 (six) hours as needed for pain. Max Daily Amount: 4 tablets (Patient not taking: Reported on 03/16/2018 ) 5 tablet 0 - oxyCODONE-acetaminophen (PERCOCET) 10-325 mg tablet Take 1 tablet by mouth 3 (three) times a day as needed for pain. To Last 30days. No early refills Max Daily Amount: 3 tablets 90 tablet 0 No current facility-administered medications on file prior to visit. Past Medical History: Patient Active Problem List Diagnosis - Hypercholesteremia - Hyperlipidemia - Anxiety attack - Generalized anxiety disorder - Smoker - Essential hypertension - Acute bronchitis - AR (allergic rhinitis) - GERD (gastroesophageal reflux disease) - Osteoarthritis of right knee - Arthritis - DDD (degenerative disc disease) - Back pain - Anxiety state - Cervical disc disease - Cervical radiculopathy - Spinal stenosis - Cervical spondylosis with myelopathy - Screening - History of total knee arthroplasty - Knee pain - Trochanteric bursitis - Knee osteoarthritis - Knee joint replacement status - Hip fracture, left (HCC) - Depression - S/P total knee arthroplasty - S/P hip hemiarthroplasty- Left - Anxiety state - Pain in joint, lower leg - Routine general medical examination at a health care facility - Osteoarthritis of knee - Vitamin D deficiency - Dyslipidemia - Community acquired pneumonia - COPD exacerbation (HCC) - Hypoxia - Pneumonia of left lower lobe due to infectious organism - Severe sepsis (HCC) - Other chest pain - Pulmonary nodule - Lung cancer (HCC) - Mediastinal lymphadenopathy - Adenocarcinoma of lung, left (HCC) - Malignant neoplasm of upper lobe, left bronchus or lung (HCC) - Acute cystitis without hematuria - Urinary tract infection without hematuria - Fall at home, sequela Past Medical History: Diagnosis Date - Anxiety Takes Xanax - Arthritis - Breast mass 2013 rt axilla - Bronchitis - Bursitis Left hip - Cancer (HCC) 12 left lung cancer, scheduled for left upper lobectomy at [facility] with Dr. Moore - Cervical radiculopathy sees Dr. Cardenas, gets cervical pain injections every 3 months, last done in - COPD (chronic obstructive pulmonary disease) (HCC) - DDD (degenerative disc disease) - Depression - Dermatological disorder 01/25 irratative dermatitis from insect b ite - Esophageal stricture dilated during upper endoscopy - Generalized anxiety disorder - GERD (gastroesophageal reflux disease) - H. pylori infection Hx of H pylori infection several months ago treated with medication, no current issues. - H/O pyloric stenosis - Hiatal hernia - HTN (hypertension) - Hypercholesteremia - Hyperlipidemia No current medications or issues. - OA (osteoarthritis) of knee - Palpitations with anxiety - Pneumonia 1994 resolved. - PTSD (post-traumatic stress disorder) son was murdered 8 years ago, followed by Dr. Milly Freire - Spinal stenosis cervical - Wears dentures full set - Wears glasses Past Surgical History: Procedure Laterality Date - ESOPHAGEAL DILATION 2012 approx. done with upper endoscopy - KNEE ARTHROPLASTY Right 2010 - LUMBAR FUSION 1995 - CO TOTAL KNEE ARTHROPLASTY Right 05/28/2014 Procedure: REPLACEMENT TOTAL JOINT KNEE RIGHT / BETO ; Surgeon: Isaak Moncada MD; Location: [facility] OR; Service: Orthopedics - SPINE SURGERY lumbar fusion - TENDON RELEASE Right arm - TOTAL HIP ARTHROPLASTY Left 09/26/14 hip hem-iarthoplasty - TOTAL KNEE ARTHROPLASTY Left 11/23 - TUBAL LIGATION Bilateral - UPPER GASTROINTESTINAL ENDOSCOPY 2012 approx. diagnosed with H. Pylori and esophagus dilated. - UPPER GASTROINTESTINAL ENDOSCOPY Family History: Family History Problem Relation Age of Onset - Other Other Hx: Yes Dx: Diabetes Fam Mem: Family h/o - Drug abuse Other - Other Other Hx: Yes Dx: Hypertension Fam Mem: Mother - Drug abuse Other - Hypertension Mother - Heart disease Mother - Diabetes Mother - No Known Problem Father - Other Sister - Cancer Sister - Other Other Hx: Yes Dx: Heart disease Fam Mem: Mother - Diabetes Maternal Grandmother Social History: History Alcohol Use No History Smoking Status - Current Every Day Smoker - Packs/day: 0.50 - Years: 44.00 - Types: Cigarettes Smokeless Tobacco - Current User History Drug Use No ROS: Review of Systems General : No weight gain or loss, no loss of appetite, no fever, no chills, no fatigue, no night sweats Skin And lymphatics: No rashes, no skin discolorations, no easy bruising, no lymphadenopathy. Positive for mole on right eye. Head: Positive for headaches, no dizziness, no masses, no seizures Eyes: No visual changes no eye pain Ears: No tinnitus, no vertigo, no hearing loss Nose: No nosebleeds, no discharge, no sinus disease Mouth and throat: Denies dental disease, no hoarseness, no throat pain Respiratory: No cough, no shortness of breath, no sputum production Cardiovascular: No chest pain, no orthopnea, no paroxysmal nocturnal dyspnea, or dyspnea on exertion, no claudication, no edema, no valvular disease Gastrointestinal: No dysphagia, no abdominal pain, no nausea, no vomiting, no hematemesis, no diarrhea, no constipation, no melena, no hematochezia Genitourinary: No dysuria, no frequency, no hesitancy, no hematuria no discharge Musculoskeletal: Positive for right thumb pain, neck pain, and back pain, no myalgias Neuropsychiatric: No weakness no seizures, no memory changes, no depression Neurologic: No unilateral or bilateral numbness tingling or weakness, no difficulty with speech, no vision changes, no problems with balance, denies dizziness PE: BP 140/80 (BP Location: Left arm, Patient Position: Sitting) Pulse 95 Temp 36.3 C (97.3 F) (Temporal Artery (forehead)) Wt 60.1 kg (132 lb 9 oz) SpO2 95% BMI 24.25 kg/m2 Physical Exam Nursing note and vitals reviewed. Constitutional: . patient appears well-developed and well-nourished. No distress. Head: Normocephalic and atraumatic. Right Ear: External ear normal. no erythema bright tympanic membrane bony landmarks intact Left Ear: External ear normal. No erythema bright tympanic membrane bony landmarks intact Mouth/Throat: No oropharyngeal exudate. Eyes: Pupils are equal, round, and reactive to light. Right eye exhibits no discharge. Left eye exhibits no discharge. No scleral icterus. Neck: No JVD present. No tracheal deviation present. No thyromegaly present. Cardiovascular: Normal rate, regular rhythm, normal heart sounds and intact distal pulses. Exam reveals no gallop and no friction rub. No murmur heard. Pulmonary/Chest: Effort normal. No respiratory distress. patient has no wheezes. patient has no rales. Patient exhibits no tenderness. Abdominal: Soft. Patient exhibits no distension and no mass. There is no tenderness to palpation. There is no rebound and no guarding. Musculoskeletal: Normal range of motion. Patient exhibits no edema and no tenderness. Skin: The patient has redundant lazy tissue on right upper eyelid, which is about 1 cm x 0.7 cm in size. She has a horizontal scar present at the left side of abdomen extending about to the level of umbilicus secondary to back surgery. Labs: Office Visit on 11/18/2017 Component Date Value Ref Range Status - Color, UA 11/18/2017 Yellow Final - Glucose, UA 11/18/2017 Negative Final - Bilirubin, UA 11/18/2017 Small Final - Ketones, UA 11/18/2017 Negative Final - Spec Grav, UA 11/18/2017 1.025 Final - Blood, UA 11/18/2017 Negative Final - pH, UA 11/18/2017 5.5 Final - Protein, UA 11/18/2017 Negative Final - Urobilinogen, UA 11/18/2017 0.2 mg/dl Final - Nitrite, UA 11/18/2017 Negative Final - Leukocytes, UA 11/18/2017 Trace Final Assessment and Plan: Problem List Items Addressed This Visit None Visit Diagnoses Pre-op chest exam - Primary Relevant Orders Protime-INR Activated partial thromboplastin time CBC auto differential Basic metabolic panel ECG 12 lead (Completed) POCT urinalysis dipstick (Completed) Redundant eyelid of right eye Relevant Orders Ambulatory referral to Ophthalmology Intractable episodic headache, unspecified headache type Relevant Medications ketorolac (TORADOL) injection 60 mg (Completed) Injury of ulnar collateral ligament of right wrist, subsequent encounter Relevant Medications miscellaneous medical supply Misc 1. Pre-op examination prior to right hand Repair/construction right thumb ulnar collateral ligament on March 22, 2018 Ordered a blood work to obtain Protime-INR, PTT, CBC, and BMP in near future. Obtained urine dipstick in the office today. Ordered ECG 12 lead to be obtained in near future. The patient was advised to wear thumb spica splint until surgery. She was provided with a prescription of the same. Prior to Repair/construction right thumb ulnar collateral ligament surgery, patient was aware of risk and complications of the surgery including but not limited to infection, bleeding, pain, as well as possibility of unforeseen anesthetic or surgical complication potentially leading to significant morbidity. Patient accepts these risks and wishes to proceed with surgery as planned. Patient is cardiovascularly stable and is cleared for surgery after review of labs and imaging studies. The patient was encouraged to quit smoking. Discussed benefits of quitting smoking with respect to her health concerns. - Protime-INR; Future - Activated partial thromboplastin time; Future - CBC auto differential; Future - Basic metabolic panel; Future - ECG 12 lead; Future - POCT urinalysis dipstick 2. Redundant eyelid of right eye The patient was provided with a referral to Dr. Merlos, needle loom setter for further evaluation. She was provided with contact details to schedule an appointment. - Ambulatory referral to Ophthalmology 3. Intractable episodic headache, unspecified headache type The patient was administered Toradol 60 mg injection in the office today. - ketorolac (TORADOL) injection 60 mg; Inject 2 mL (60 mg total) into the muscle once. 4. Injury of ulnar collateral ligament of right wrist, subsequent encounter The patient was advised to wear thumb spica splint until surgery. She was provided with a prescription of the same. - miscellaneous medical supply Mis; Use right hand thumb spica splint Dispense: 1 each; Refill: 0 6. Chronic obstructive pulmonary disease, unspecified COPD type (HCC) stable 7. 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 . I have read and agree with the documentation that has been completed regarding this visit and attest, that it is an accurate record of both my words and actions during the visit. . MIKE ANN JR, [facility] 2018-03-13 14:00:00 ADULT PSYCHIATRY OUT PATIENT - PROGRESS NOTE Psychiatry Established Patient: (Outpatient [id number] - [id number]) Identifying Information: PATIENT NAME: Ibis Tay MR# [id number] ENCOUNTER DATE: 03/13/2018 PROVIDER: Parth Lemos MD Appointment time: 200 Start time: 201 Stop time: 231 Total time: 30 minutes Accompanied by: No one; Patient guardian is self. Chief Complaint: Today, MsJenn Tay is a 63 y.o. female who presents with a chief complaint of: No chief complaint on file. CC: Follow up Depression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 mass. There is no tenderness to palpation. There is no rebound and no guarding. Musculoskeletal: She has tenderness at the base of 1st metacarpal phalanx of right thumb. She has slight tenderness on the abductor and extensor of right thumb. Slightly tender at the base of metacarpal carpal bone. She has discomfort with adduction. Negative Selwyn test bilaterally. No tenderness or deformity on the metacarpal phalangeal joint of left thumb. Skin: She has 1-2 cm reddened macular areas. She has a couple of patches on upper chest. Her palms are clear. Assessment/Plan: Problem List Items Addressed This Visit None Visit Diagnoses Osteoarthritis of hand, primary localized, right - Primary Relevant Medications predniSONE (DELTASONE) 20 MG tablet Other Relevant Orders Ambulatory referral to Orthopedic Surgery Nicotine dependence, uncomplicated, unspecified nicotine product type Relevant Medications nicotine 21-14-7 mg/24 hr Patch, TD Daily, Sequential 1. Osteoarthritis of hand, primary localized, right The patient was provided with a referral to Dr. Bowman, orthopedist for further treatment. She was prescribed prednisone 20 mg one pill twice daily for 5 days then one pill daily for two days then one half pill daily for 2 days. - Ambulatory referral to Orthopedic Surgery - predniSONE (DELTASONE) 20 MG tablet; Take one pill twice daily am and noon for 5 days then one pill daily for two days then one half pill daily for 2 days Dispense: 13 tablet; Refill: 0 2. Nicotine dependence, uncomplicated, unspecified nicotine product type The patient was encouraged to quit smoking. The patient was provided with a prescription for Nicotene patch 21-14-7 mg/24 hr Patch, TD Daily, Sequential; 6 weeks 21 mg patch then decrtease to 14 mg patch x 2 weeks then 2 weeks of 7 Mg then stop. She was advised to change the patch regularly. She was advised to use Big Red gum or a squeeze ball to reduce the urge of smoking. Discussed benefits of quitting smoking with respect to her health concerns. - nicotine 21-14-7 mg/24 hr Patch, TD Daily, Sequential; 6 weeks 21 mg patch then decrtease to 14 mg patch x 2 weeks then 2 weeks of 7 Mg then stop . Change patch daily Dispense: 56 each; Refill: 0 YESSICA Givens am scribing for and in the presence of Mike Ann Jr., MD. . I have read and agree with the documentation that has been completed regarding this visit and attest, that it is an accurate record of both my words and actions during the visit. . MIKE ANN JR, CHI 2017-12-09 10:30:00 PatientIbis s consent to Mike Ann Jr., MD's use of Augmedix at today's visit. INE JARVIS [facility] 2017-12-09 10:30:00 Subjective: Patient ID: Ibis Tay is a 62 y.o. female. Chief Complaint Patient presents with - follow up visit from being discharge from the hospital [facility] The patient is here today for an ER follow-up. She was seen in the ER on 11/17/2017 for sprain in her right thumb and wrist after sustaining a fall. She reported associated pain and swelling in her thumb and wrist. The patient was advised to use a thumb spica splint for comfort and healing in the ER. The patient still reports pain in her thumb. The patient has a history of lung cancer. She was recently discharged from cancer [facility]. She underwent Left upper lobectomy/lymph node dissection on 10/11/[address] Moore. The patient also has a history of COPD for which she uses Duo-Neb inhaler four times a day. She reports dryness of mouth. She is a smoker, and she smokes about 1 pack of cigarettes daily. She tried to quit smoking in the past, but failed to do so. She also tried to contact with [place] quit program. The patient has a history of depression and anxiety. Review of Systems General : No weight gain or loss, no loss of appetite, no fever, no chills, no fatigue, no night sweats Skin And lymphatics: No rashes, no skin discolorations, no easy bruising, no lymphadenopathy Head: No headaches, no dizziness, no masses, no seizures Eyes: No visual changes no eye pain Ears: No tinnitus, no vertigo, no hearing loss Nose: No nosebleeds, no discharge, no sinus disease Mouth and throat: Denies dental disease, no hoarseness, no throat pain Respiratory: No cough, no shortness of breath, no sputum production Cardiovascular: No chest pain, no orthopnea, no paroxysmal nocturnal dyspnea, or dyspnea on exertion, no claudication, no edema, no valvular disease Gastrointestinal: No dysphagia, no abdominal pain, no nausea, no vomiting, no hematemesis, no diarrhea, no constipation, no melena, no hematochezia Genitourinary: No dysuria, no frequency, no hesitancy, no hematuria no discharge Endocrinology: Positive for dry mouth. Musculoskeletal: No joint pain or swelling, no arthritis, no myalgias Neuropsychiatric: No weakness no seizures, no memory changes, no depression Neurologic: No unilateral or bilateral numbness tingling or weakness, no difficulty with speech, no vision changes, no problems with balance, denies dizziness, denies headache Objective: BP 136/72 Pulse 96 Ht 157.5 cm (5' 2) Wt 64.3 kg (141 lb 12.8 oz) SpO2 97% BMI 25.94 kg/m2 Physical Exam Nursing note and vitals reviewed. Constitutional: . patient appears well-developed and well-nourished. No distress. Head: Normocephalic and atraumatic. Right Ear: External ear normal. no erythema bright tympanic membrane bony landmarks intact Left Ear: External ear normal. No erythema bright tympanic membrane bony landmarks intact Mouth/Throat: No oropharyngeal exudate. She has curly discharge on inside aspect of buccal area. Neck: No JVD present. No tracheal deviation present. No thyromegaly present. Cardiovascular: Normal rate, regular rhythm, normal heart sounds and intact distal pulses. Exam reveals no gallop and no friction rub. No murmur heard. Pulmonary/Chest: Effort normal. No respiratory distress. patient has no wheezes. patient has no rales. Patient exhibits no tenderness. Abdominal: Soft. Patient exhibits no distension and no mass. There is no tenderness to palpation. There is no rebound and no guarding. Musculoskeletal: She has tenderness at the junction of metacarpal and carpal and has mild tenderness at thenar eminence. She also has tenderness at metacarpal phalangeal joint. Skin: The patient has long left dissection incision on posterior and one post status stitch of 17 cm well-healed incision. Assessment/Plan: Problem List Items Addressed This Visit None Visit Diagnoses Thumb pain, right - Primary Relevant Medications ketorolac (TORADOL) injection 60 mg (Completed) Thrush Relevant Medications nystatin (MYCOSTATIN) 100,000 unit/mL suspension 1. Thumb pain, right The patient received toradal injection in the clinic today. She was advised to wear brace at night and then take off during daytime. - ketorolac (TORADOL) injection 60 mg; Inject 2 mL (60 mg total) into the muscle once. 2. Thrush She was advised to take nystatin 5 mL four times a day for 7 days. - nystatin (MYCOSTATIN) 100,000 unit/mL suspension; Take 5 mL (500,000 Units total) by mouth 4 (four) times a day for 7 days. Dispense: 140 mL; Refill: 0 3. Smoking cessation The patient was advised to quit smoking. Follow up in 1 month. I, YESSICA PELLETIER, am scribing for and in the presence of Mike Ann Jr., MD. . I have read and agree with the documentation that has been completed regarding this visit and attest, that it is an accurate record of both my words and actions during the visit. . MIKE ANN JR, CHI 2017-12-07 14:37:12 CHAIR FINISHER tc to patient an d . They both have COPD and significant breathing difficulties. They live in a trailer house and their central air condition unit went out on them. They do have a window air unit, however was not able to adequately cool their trailer home. Concerned about getting central air unit repaired/replaced as soon as possible. Spoke with at length. Reported that they were able to get the central air unit fixed already. Stated that they had purchased this central air unit used and had it installed a few days ago. It needed approx 6-7 pounds of freon at the cost of $97/per pound. Used all their savings on this. They and/or the man who installed the unit did not realize the unit had a leak, therefore all freon leaked out and therefore unit stopped working after 4 days. They were able to work with the man who installed the unit and he came out and repaired it for free since he had just completed their original work approx one week ago. Reports that it appears to be working well at this time. They are [place] [facility] [place] for [place], SNAP, energy assistance etc. Educated on potential option for assistance with getting an air conditioner through HS/Economic Assistance since they are already eligible for energy assistance. They were aware of this and had check on this prior to purchasing this used air unit, however decided it was less expensive for them to just try and work with this used air conditioner unit than to go through HS program eg stated [facility] required they secure 3 estimates and found out that most businesses charge for estimates etc. They are hopeful this unit will last and be a good unit for them. Educated on potential assistance for urgent needs through the [facility]'s Emergency Repair Program if they ever need assistance with eg furnace, water heater, etc. Advised that I was not aware of this program assisting with air conditioning, however that they may be an option for other essential items. Provided with contact information for this program. Assessed if they had any other needs or concerns at this time of which they did not. Provided with my contact information. No further contact planned at this time unless otherwise indicated. SKIP LAMAR GLORIA 2017-11-28 07:50:00 OFFICE VISIT CHIEF COMPLAINT Neck Pain SUBJECTIVE Ibis Tay is a 62 y.o. female who presents for follow-up of Neck Pain with diagnosis of: 1. cervical stenosis with radiculopathy. 2. 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 Headaches With last encounter we rotated back to the percocet 10/325 0.5-1 po tid and she notes the pain is not as well controlled as wehen she was taking 4/day. She states that with the recent severe weather she has been having a flare up of her arthritis. She states that the shoulder and joints are hurting the most. She denies adverse side effects noting no nausea sedation somnolence or altered mentation. She states that her mobility is decreased and her blood pressure is up due to the pain. She notes the recent cervical WAQAR in SEP 2016 noting >50% relief lasting 3mos and would like to repeat her Cervical WAQAR this fall. She did have surgery in [facility] for lung biopsy. Patient currently is on Percocet 10/325 0.5-1 po tid states the medication is not effective giving the average pain rating of: 10/10 and feels that the pain is not manageable. New or changing adverse side effects:none New or changing pain complaints:none Other concerns: none ROS Constitutional: denies dizziness, sedation, or somnolence Psychological: denies altered mentation or euphoria GI: deniesconstipation or diarrhea Musc: denies acute change in numbness, weakness, or tingling of extemities MEDICATIONS Current Outpatient Prescriptions Medication Sig Dispense Refill - alendronate (FOSAMAX) 70 MG tablet Take on empty stomach once weekly sitting upright for full hour after taking with big glass of water. No other meds or food for 1 hour 4 tablet 11 - ALPRAZolam (XANAX) 1 MG tablet Take 1 tablet (1 mg total) by mouth 4 (four) times a day as needed. FOR ANXIETY 120 tablet 4 - atorvastatin (LIPITOR) 20 MG tablet TAKE ONE TABLET BY MOUTH DAILY 90 tablet 0 - camphor-menthol (SARNA ANTI-ITCH) lotion Apply topically as needed for itching. 222 mL 0 - cholecalciferol (VITAMIN D3) 5,000 unit Tablet Take 1 tablet (5,000 Units total) by mouth once daily. 30 tablet 11 - diaper,brief,adult,disposable Misc 1 application by Miscellaneous route 2 (two) times a day. 96 each 5 - escitalopram oxalate (LEXAPRO) 20 MG tablet Take 1 tablet (20 mg total) by mouth once daily. 90 tablet 5 - FLOVENT DISKUS 250 mcg/actuation Disk with Device INHALE ONE PUFF BY MOUTH TWICE A DAY, RINSE MOUTH AFTER USE 60 each 5 - food supplemt, lactose-reduced (ENSURE) Liquid Drink 2 bottles per day. Patient requests strawberry. 16063 mL PRN - guaiFENesin 200 mg tablet TAKE THREE TABLETS BY MOUTH TWICE A DAY FOR 10 DAYS 60 tablet 0 - hydroCHLOROthiazide (HYDRODIURIL) 25 MG tablet Take 1 tablet (25 mg total) by mouth once daily. 30 tablet 5 - ipratropium-albuterol (DUO-NEB) 0.5-2.5 mg/3 mL nebulizer Inhale 3 mL into the lungs 4 (four) times a day. 360 vial 3 - Lactobacillus acidoph-pectin (ACIDOPHILUS-PECTIN) 75 million cell -100 mg Capsule Take 1 capsule by mouth 2 (two) times a day. 60 capsule 0 - lamoTRIgine (LAMICTAL) 150 MG tablet Take 1 tablet (150 mg total) by mouth 2 (two) times a day. 0900 and 1500 60 tablet 5 - lisinopril (PRINIVIL,ZESTRIL) 10 MG tablet Take 1 tablet (10 mg total) by mouth once daily. 90 tablet 2 - montelukast (SINGULAIR) 10 mg tablet TAKE ONE TABLET BY MOUTH EVERY EVENING 30 tablet 4 - nicotine (NICODERM CQ) 21 mg/[address] 1 patch onto the skin every 24 (twenty-four) hours. 28 patch 1 - omeprazole (PRILOSEC) 40 MG capsule TAKE ONE CAPSULE BY MOUTH DAILY 30 capsule 11 - ondansetron (ZOFRAN ODT) 4 MG disintegrating tablet Take 1 tablet (4 mg total) by mouth every 8 (eight) hours as needed for nausea / vomiting. 12 tablet 0 - oxyCODONE-acetaminophen (PERCOCET) 5-325 mg tablet Take 1-2 tablets by mouth once every 4 (four) hours as needed for pain. Max Daily Amount: 12 tablets 50 tablet 0 - polyethylene glycol (MIRALAX) 17 gram packet Take 17 g by mouth once daily. 14 each 0 - potassium chloride (KLOR-CON) 10 MEQ CR tablet Take 2 tablets (20 mEq total) by mouth 2 (two) times a day. 120 tablet 5 - PROAIR HFA 90 mcg/actuation inhaler INHALE TWO PUFFS BY MOUTH FOUR TIMES A DAY 8.5 each 5 - QUEtiapine (SEROQUEL) 100 MG tablet Take 1 tablet (100 mg total) by mouth daily every night. Take one tab at night 30 tablet 5 - QUEtiapine (SEROQUEL) 50 MG tablet Take one tab in the morning and one tab in the afternoon. 30 tablet 5 - SENNALAX-S 8.6-50 mg TAKE TWO TABLETS BY MOUTH TWICE A DAY 120 tablet 10 - underpads Pad Use as needed for incontinence 300 each 10 No current facility-administered medications for this visit. ALLERGIES Allergies Allergen Reactions - Penicillins Anaphylaxis - Gabapentin Other (See Comments) severe fatigue - Sulfa (Sulfonamide Antibiotics) Other (See Comments) Blisters inside and outside of mouth. - Wellbutrin [Bupropion Hcl] Other (See Comments) Body numbness and tingling PHYSICAL EXAM Vital Signs: BP 152/73 (BP Location: Left arm) Pulse 82 Resp 14 Wt 65.3 kg (144 lb) BMI 26.4 kg/m2 Constitutional: Well nourished, well groomed, NAD. CARDIAC: Regular Rate LUNGS: Breathing nonlabored, no wheezing Neurologic: Alert & oriented x 3, normal gait, no focal deficits noted. Psychiatric: Affect normal, judgment normal, mood normal. Other Affected BA/OS: Neck pain with extension, pain radiating To LUE with parasthesias. ASSESSMENT AND PLAN Problem List Items Addressed This Visit None 2. LEFT Hip fracture 3. Low back pain Requested Prescriptions No prescriptions requested or ordered in this encounter PLAN: 1. cervical stenosis with radiculopathy. Worsening. I will continue her on oxycodone 10/325 TID . I will schedule her for cervical WAQAR 2. OA of bilateral Hip with h/o partial hip replacement on the Left : Stable 3. Headaches - Stable complaint and may be secondary to her cervicalgia. 4. Opiate induced constipation: stable The patient indicates understanding of these issues and agrees with the plan. I reviewed the patient's medical information and medical history. I have reviewed the past medical, family, and social history sections including the medications and allergies listed in the above medical record. Electronically signed by: Isaías Cardenas, 11/28/2017 7:50 AM ISAÍAS CARDENAS CHI 2017-11-22 10:30:00 Psychiatry - Progres s Note Physician: Jojo Freire APRN Name: Ibis Tay : 1955 Age: 62 y.o. Date of Service: 11/22/2017 PCP: Mike Ann Jr Chief Complaint Patient presents with - Depression - Anxiety HISTORY OF PRESENT ILLNESS: Ibis Tay is a 62 y.o. female who presents today for follow-up for medication management. There were no encounter diagnoses. Since the last encounter, symptoms are gradually improving. Symptoms were gradual starting a few years ago and rated as severe. Currently, symptoms are causing impairment in day to day functioning. Associated symptoms include anxiety, depression and mood swings. Clinical condition is gradually improving. Precipitating events include financial burdens and relationship issues with family. MEDICAL, FAMILY, AND SOCIAL HISTORY Past Medical, Family, and Social History: (Pertinent = 1-2 history areas; Complete = 2-3 history areas) PAST MEDICAL / PSYCHIATRIC HISTORY REVIEWED Past Medical History: Diagnosis Date - Anxiety Takes Xanax - Arthritis - Breast mass 2013 rt axilla - Bronchitis - Bursitis Left hip - Cancer (HCC) 12 left lung cancer, scheduled for left upper lobectomy at [facility] with Dr. Moore - Cervical radiculopathy sees Dr. Cardenas, gets cervical pain injections every 3 months, last done in - COPD (chronic obstructive pulmonary disease) ([facility]) - DDD (degenerative disc disease) - Depression - Dermatological disorder 01/25 irratative dermatitis from insect b ite - Esophageal stricture dilated during upper endoscopy - Generalized anxiety disorder - GERD (gastroesophageal reflux disease) - H. pylori infection Hx of H pylori infection several months ago treated with medication, no current issues. - H/O pyloric stenosis - Hiatal hernia - HTN (hypertension) - Hypercholesteremia - Hyperlipidemia No current medications or issues. - OA (osteoarthritis) of knee - Palpitations with anxiety - Pneumonia 1994 resolved. - PTSD (post-traumatic stress disorder) son was murdered 8 years ago, followed by Dr. Milly Freire - Spinal stenosis cervical - Wears dentures full set - Wears glasses family history includes Cancer in her sister; Diabetes in her maternal grandmother and mother; Drug abuse in her other and other; Heart disease in her mother; Hypertension in her mother; No Known Problem in her father; Other in her other, other, other, and sister. PAST MEDICATIONS Current Outpatient Prescriptions on File Prior to Visit Medication Sig Dispense Refill - alendronate (FOSAMAX) 70 MG tablet Take on empty stomach once weekly sitting upright for full hour after taking with big glass of water. No other meds or food for 1 hour 4 tablet 11 - ALPRAZolam (XANAX) 1 MG tablet TAKE ONE TABLET BY MOUTH FOUR TIMES A DAY NEEDED FOR ANXIETY 120 tablet 3 - atorvastatin (LIPITOR) 20 MG tablet TAKE ONE TABLET BY MOUTH DAILY 90 tablet 0 - camphor-menthol (SARNA ANTI-ITCH) lotion Apply topically as needed for itching. 222 mL 0 - cholecalciferol (VITAMIN D3) 5,000 unit Tablet Take 1 tablet (5,000 Units total) by mouth once daily. 30 tablet 11 - diaper,brief,adult,disposable Misc 1 application by Miscellaneous route 2 (two) times a day. 96 each 5 - escitalopram oxalate (LEXAPRO) 20 MG tablet Take 1 tablet (20 mg total) by mouth once daily. 90 tablet 1 - FLOVENT DISKUS 250 mcg/actuation Disk with Device INHALE ONE PUFF BY MOUTH TWICE A DAY, RINSE MOUTH AFTER USE 60 each 5 - food supplemt, lactose-reduced (ENSURE) Liquid Drink 2 bottles per day. Patient requests strawberry. 54899 mL PRN - guaiFENesin 200 mg tablet TAKE THREE TABLETS BY MOUTH TWICE A DAY FOR 10 DAYS 60 tablet 0 - hydroCHLOROthiazide (HYDRODIURIL) 25 MG tablet Take 1 tablet (25 mg total) by mouth once daily. 30 tablet 5 - ipratropium-albuterol (DUO-NEB) 0.5-2.5 mg/3 mL nebulizer Inhale 3 mL into the lungs 4 (four) times a day. 360 vial 3 - Lactobacillus acidoph-pectin (ACIDOPHILUS-PECTIN) 75 million cell -100 mg Capsule Take 1 capsule by mouth 2 (two) times a day. 60 capsule 0 - lamoTRIgine (LAMICTAL) 150 MG tablet Take 1 tablet (150 mg total) by mouth 2 (two) times a day. 0900 and 1500 60 tablet 3 - lisinopril (PRINIVIL,ZESTRIL) 10 MG tablet Take 1 tablet (10 mg total) by mouth once daily. 90 tablet 2 - mirtazapine (REMERON) 45 MG tablet Take 1 tablet (45 mg total) by mouth daily every night. 90 tablet 1 - montelukast (SINGULAIR) 10 mg tablet TAKE ONE TABLET BY MOUTH EVERY EVENING 30 tablet 4 - nicotine (NICODERM CQ) 21 mg/[address] 1 patch onto the skin every 24 (twenty-four) hours. 28 patch 1 - omeprazole (PRILOSEC) 40 MG capsule TAKE ONE CAPSULE BY MOUTH DAILY 30 capsule 11 - ondansetron (ZOFRAN ODT) 4 MG disintegrating tablet Take 1 tablet (4 mg total) by mouth every 8 (eight) hours as needed for nausea / vomiting. 12 tablet 0 - oxyCODONE-acetaminophen (PERCOCET) 5-325 mg tablet Take 1-2 tablets by mouth once every 4 (four) hours as needed for pain. Max Daily Amount: 12 tablets 50 tablet 0 - polyethylene glycol (MIRALAX) 17 gram packet Take 17 g by mouth once daily. 14 each 0 - potassium chloride (KLOR-CON) 10 MEQ CR tablet Take 2 tablets (20 mEq total) by mouth 2 (two) times a day. 120 tablet 5 - prazosin (MINIPRESS) 2 MG capsule Take 2 capsules (4 mg total) by mouth daily every night. 180 capsule 1 - PROAIR HFA 90 mcg/actuation inhaler INHALE TWO PUFFS BY MOUTH FOUR TIMES A DAY 8.5 each 5 - QUEtiapine (SEROQUEL) 100 MG tablet Take 1 tablet (100 mg total) by mouth daily every night. Take one tab at night 30 tablet 3 - QUEtiapine (SEROQUEL) 50 MG tablet Take one tab in the morning and one tab in the afternoon. 30 tablet 3 - SENNALAX-S 8.6-50 mg TAKE TWO TABLETS BY MOUTH TWICE A DAY 120 tablet 10 - underpads Pad Use as needed for incontinence 300 each 10 No current facility-administered medications on file prior to visit. ALLERGIES Allergies Allergen Reactions - Penicillins Anaphylaxis - Gabapentin Other (See Comments) severe fatigue - Sulfa (Sulfonamide Antibiotics) Other (See Comments) Blisters inside and outside of mouth. - Wellbutrin [Bupropion Hcl] Other (See Comments) Body numbness and tingling Additional details to note regarding Ibis's medical history or recent changes include: No other details to note. FAMILY/SOCIAL HISTORY REVIEWED Family History Problem Relation Age of Onset - Other Other Hx: Yes Dx: Diabetes Fam Mem: Family h/o - Drug abuse Other - Other Other Hx: Yes Dx: Hypertension Fam Mem: Mother - Drug abuse Other - Hypertension Mother - Heart disease Mother - Diabetes Mother - No Known Problem Father - Other Sister - Cancer Sister - Other Other Hx: Yes Dx: Heart disease Fam Mem: Mother - Diabetes Maternal Grandmother Social History Social History - Marital status: Single Spouse name: N/A - Number of children: N/A - Years of education: 14 Social History Main Topics - Smoking status: Current Every Day Smoker Packs/day: 0.50 Years: 44.00 Types: Cigarettes - Smokeless tobacco: Never Used - Alcohol use No - Drug use: No - Sexual activity: Not Asked Other Topics Concern - None Social History Narrative Additional details to note regarding [place] Family or Social history or recent changes include: No other details to note. SUBSTANCE USE HISTORY REVIEWED: History Alcohol Use No History Drug Use No History Smoking Status - Current Every Day Smoker - Packs/day: 0.50 - Years: 44.00 - Types: Cigarettes Smokeless Tobacco - Never Used Additional details to note regarding Jose Miguel substance use history or recent changes include: No other details to note. REVIEW OF CURRENT SYSTEMS (Updated each Encounter) Review of Systems: (Pertinent = 1 System Reviewed; Extended = 2-9 Systems Reviewed; Complete = 10 or more Systems Reviewed or pertinent positives noted and all other systems negative. Review of Systems: General: No fever or chills ENT ROS: positive for - nasal congestion Cardiovascular ROS: positive for - dyspnea on exertion Respiratory ROS: positive for - cough Musculoskeletal ROS: positive for - gait disturbance, joint pain and joint stiffness Reported side effects from Medications include: none Sleep Problems: [] Not Assessed During This Visit [] Patient Denied Sleep Problems Sleep: no sleep issues and falls asleep easily VITALS Blood Pressure: 110/70 Pulse: 96 Respiratory: 20 Weight: 67.6 kg (149 lb) Temp: MENTAL STATUS EXAM (Updated each Encounter) Mental Status Exam: General Appearance, Behavior, and Attitude: age appropriate, casually dressed, appears stated age, strong smell of smoke, cooperative and engages well Gait and Station: slow and steady Muscle Strength and Tone: low tone Mood is anxious and depressed Affect is mood congruent. Language: fluent production Speech: normal pitch and normal volume Fund of Knowledge is normal for age Thought Process: circumstantial Thought Association: logical Thought Content: normal Hallucinations: absent Memory is intact for immediate , recent and remote recall. Sensorium and Orientation: alert person, place and time/date Suicidal Ideation: Patient Denied Homicidal Ideation: Patient Denied RISK ASSESSMENT (Updated each Encounter): Suicide Risk: Low Action plan to address Suicide Risk includes: no action needed at this time. Homicide Risk: Low. Action plan to address Homicide Risk includes: no action needed at this time. DIAGNOSIS(ES): No diagnosis found. TREATMENT & MEDICATION PLAN / PATIENT INSTRUCTIONS (Updated each Encounter): 1) Medication and Treatment Reviewed? YES 2) Medication Changes: Yes, continue medications the same but encouraged less xanax. She states she has been on for 10+ years. There are no discontinued medications. No orders of the defined types were placed in this encounter. Current Outpatient Prescriptions Medication Sig Dispense Refill - alendronate (FOSAMAX) 70 MG tablet Take on empty stomach once weekly sitting upright for full hour after taking with big glass of water. No other meds or food for 1 hour 4 tablet 11 - ALPRAZolam (XANAX) 1 MG tablet TAKE ONE TABLET BY MOUTH FOUR TIMES A DAY NEEDED FOR ANXIETY 120 tablet 3 - atorvastatin (LIPITOR) 20 MG tablet TAKE ONE TABLET BY MOUTH DAILY 90 tablet 0 - camphor-menthol (SARNA ANTI-ITCH) lotion Apply topically as needed for itching. 222 mL 0 - cholecalciferol (VITAMIN D3) 5,000 unit Tablet Take 1 tablet (5,000 Units total) by mouth once daily. 30 tablet 11 - diaper,brief,adult,disposable Misc 1 application by Miscellaneous route 2 (two) times a day. 96 each 5 - escitalopram oxalate (LEXAPRO) 20 MG tablet Take 1 tablet (20 mg total) by mouth once daily. 90 tablet 1 - FLOVENT DISKUS 250 mcg/actuation Disk with Device INHALE ONE PUFF BY MOUTH TWICE A DAY, RINSE MOUTH AFTER USE 60 each 5 - food supplemt, lactose-reduced (ENSURE) Liquid Drink 2 bottles per day. Patient requests strawberry. 09622 mL PRN - guaiFENesin 200 mg tablet TAKE THREE TABLETS BY MOUTH TWICE A DAY FOR 10 DAYS 60 tablet 0 - hydroCHLOROthiazide (HYDRODIURIL) 25 MG tablet Take 1 tablet (25 mg total) by mouth once daily. 30 tablet 5 - ipratropium-albuterol (DUO-NEB) 0.5-2.5 mg/3 mL nebulizer Inhale 3 mL into the lungs 4 (four) times a day. 360 vial 3 - Lactobacillus acidoph-pectin (ACIDOPHILUS-PECTIN) 75 million cell -100 mg Capsule Take 1 capsule by mouth 2 (two) times a day. 60 capsule 0 - lamoTRIgine (LAMICTAL) 150 MG tablet Take 1 tablet (150 mg total) by mouth 2 (two) times a day. 0900 and 1500 60 tablet 3 - lisinopril (PRINIVIL,ZESTRIL) 10 MG tablet Take 1 tablet (10 mg total) by mouth once daily. 90 tablet 2 - mirtazapine (REMERON) 45 MG tablet Take 1 tablet (45 mg total) by mouth daily every night. 90 tablet 1 - montelukast (SINGULAIR) 10 mg tablet TAKE ONE TABLET BY MOUTH EVERY EVENING 30 tablet 4 - nicotine (NICODERM CQ) 21 mg/[address] 1 patch onto the skin every 24 (twenty-four) hours. 28 patch 1 - omeprazole (PRILOSEC) 40 MG capsule TAKE ONE CAPSULE BY MOUTH DAILY 30 capsule 11 - ondansetron (ZOFRAN ODT) 4 MG disintegrating tablet Take 1 tablet (4 mg total) by mouth every 8 (eight) hours as needed for nausea / vomiting. 12 tablet 0 - oxyCODONE-acetaminophen (PERCOCET) 5-325 mg tablet Take 1-2 tablets by mouth once every 4 (four) hours as needed for pain. Max Daily Amount: 12 tablets 50 tablet 0 - polyethylene glycol (MIRALAX) 17 gram packet Take 17 g by mouth once daily. 14 each 0 - potassium chloride (KLOR-CON) 10 MEQ CR tablet Take 2 tablets (20 mEq total) by mouth 2 (two) times a day. 120 tablet 5 - prazosin (MINIPRESS) 2 MG capsule Take 2 capsules (4 mg total) by mouth daily every night. 180 capsule 1 - PROAIR HFA 90 mcg/actuation inhaler INHALE TWO PUFFS BY MOUTH FOUR TIMES A DAY 8.5 each 5 - QUEtiapine (SEROQUEL) 100 MG tablet Take 1 tablet (100 mg total) by mouth daily every night. Take one tab at night 30 tablet 3 - QUEtiapine (SEROQUEL) 50 MG tablet Take one tab in the morning and one tab in the afternoon. 30 tablet 3 - SENNALAX-S 8.6-50 mg TAKE TWO TABLETS BY MOUTH TWICE A DAY 120 tablet 10 - underpads Pad Use as needed for incontinence 300 each 10 No current facility-administered medications for this visit. PATIENT EDUCATION: YES: Education was provided to include risks, benefits, side effects and alternatives to treatment regarding medications and treatment recommendations. Patient verbalized understanding and consent for treatment. NA: (If applicable) Patient was educated to avoid while taking medication. YES: (If applicable) The FDA's black box warning for suicidal thinking associated with antidepressant use in those under the age of 25 was discussed, and informed consent obtained. A safety plan was discussed should these thoughts or feelings occur, including presenting to the Emergency Department if thoughts occur and the patient is unable to contract for safety. Patient's Progress Toward Goals and Objectives: Ibis Tay changes in functioning include improvement. Depression is rated mild. Anxiety is controlled on her medication but states that. Patient is sleeping 8 hours at night. Previous therapeutic goals were reviewed with patient to alleviate emotional disregulation. Explored patient's coping strategies and reviewed ways to identify positive aspects of patient's ability to deal with ongoing stress. Patient was encouraged to use the positive strategies in times of stress to cope with anxiety, depression and mood swings. Pt set goal to work on breathing exercise and meditation. Discussed re-framing negative thoughts into positive actions. Educated the patient that this provider would be leaving [facility] in December. Instructed that a letter would be coming to inform of alternatives for getting another provider. PCP is also an alternative for the patient. Encouraged the patient to call the numbers provided to make a future appointment. Refilled medications for 5 months. PATIENT INSTRUCTIONS Safety Plan: Patient advised to call the clinic here if has any questions, concerns any untoward effects , side effects of medications/treatment or worsening of condition and go to the nearest emergency room or call 911 for help if has thoughts of self harm or suicide or homicide. Patient was advised not to drive while having sedating effect of the medications. Psychoeducation: Patient was explained about details of the illness along with different treatment options available. Patient was advised to call the clinic or go to emergency room if side effects are severe or condition worsens at any time during the illness and treatment. Follow up: Ms. Tay is to return to clinic as needed before December 2017 as this provider is leaving [facility]. PSYCHOTHERAPY (Updated each Encounter) Session Time Start: 1031 Session Time End: 1100 Time spent doing therapy was : 20 minutes. Processed Thoughts / Feelings of: Depression and Anxiety Goals / Themes Covered During Medication/ Psychotherapy Time: Instructions regarding Treatment and Follow up, Importance of Compliance, Diagnostic Impressions and Recommendations, Risk Factor Reduction, Cognitive Behavioral Treatment and Techniques, Supportive Therapy. PATIENT/FAMILY INVOLVEMENT: The patient has been involved in the treatment planning process, the problems identified and goals of treatment. Treatment options were explained and discussed. The patient expressed understanding of the treatment plan goals and treatment options and provided consent for treatment. LABS REVIEWED CBC with Differential WBC Date Value Ref Range Status 10/12/2017 7.0 4.0 - 12.0 k/ul Final Hemoglobin Date Value Ref Range Status 10/12/2017 12.0 12.0 - 16.0 gm/dl Final Hematocrit Date Value Ref Range Status 10/12/2017 39.5 36.0 - 48.0 % Final Platelet Count Date Value Ref Range Status 10/12/2017 228 140 - 440 k/ul Final Neutrophils % Date Value Ref Range Status 10/11/2017 66 % Final Lymphs % Date Value Ref Range Status 10/11/2017 25 % Final Monocytes % Date Value Ref Range Status 10/11/2017 6 % Final Eosinophils Percent Date Value Ref Range Status 10/11/2017 3 % Final and CMP Glucose Date Value Ref Range Status 10/13/2017 171 (H) 70 - 100 mg/dl Final Comment: For the purpose of classification, fasting Glucose from 100-125 mg/dl is considered impaired fasting Glucose (Pre-Diabetic) by the [place] [employer]. Fasting Glucose > 125 mg/dl is indicative of Diabetes Mellitus, but must be confirmed. BUN Date Value Ref Range Status 10/13/2017 6 6 - 24 mg/dl Final Creatinine Date Value Ref Range Status 10/13/2017 0.74 0.50 - 1.10 mg/dl Final Comment: The new Creatinine assay is IDMS-traceable. Reference ranges and GFR calculations have been updated. Sodium Date Value Ref Range Status 10/13/2017 132 (L) 135 - 145 mmol/L Final Potassium Date Value Ref Range Status 10/13/2017 4.2 3.7 - 5.1 mmol/L Final Comment: Specimen is hemolyzed. Ammonia, AST, Potassium, LDH, CPK,Magnesium, Iron, and total IBC results could be increased if tested on this sample. Folate could be decreased if tested on this sample. Chloride Date Value Ref Range Status 10/13/2017 101 96 - 110 mmol/L Final CO2 Date Value Ref Range Status 10/13/2017 26.0 22.0 - 32.0 mmol/L Final Anion Gap Date Value Ref Range Status 10/13/2017 9 <=20 mmol/L Final Calcium Date Value Ref Range Status 10/13/2017 7.6 (L) 8.5 - 10.5 mg/dl Final GFR MDRD Af Amer Date Value Ref Range Status 10/13/2017 >90 >=90 mL/min/1.73 m2 Final GFR MDRD Non Af Amer Date Value Ref Range Status 10/13/2017 85 (L) >=90 mL/min/1.73 m2 Final Comment: *NOTE: GFR is a calculated estimate of the glomerular filtration rate.* Total Protein Date Value Ref Range Status 08/06/2017 6.7 6.0 - 8.4 gm/dl Final Albumin Date Value Ref Range Status 08/06/2017 3.3 (L) 3.5 - 5.0 gm/dl Final Globulin Date Value Ref Range Status 08/06/2017 3.4 2.0 - 4.4 gm/dl Final AST Date Value Ref Range Status 08/06/2017 14 10 - 40 u/l Final Alkaline Phosphatase Date Value Ref Range Status 08/06/2017 85 33 - 138 u/l Final Total Bilirubin Date Value Ref Range Status 08/06/2017 0.3 0.0 - 1.5 mg/dl Final ALT Date Value Ref Range Status 08/06/2017 26 12 - 78 u/l Final . JOJO FREIRE [facility] 2017-11-18 14:40:00 Subjective: Patient ID: Ibis Tay is a 62 y.o. female. Chief Complaint Patient presents with - Fall last tuesday, bruise buttocks, right thumb - Injections torodol shot for pain HPI Ibis Tay is a 62 y.o. female who presents to the clinic today to be seen for follow-up of her fall and UTI. Patient fell at home six days ago down one stair. Patient went to ED yesterday. Xrays at that time were negative for fracture. She was sent home with thumb-spica splint. She continues to have pain, but states she missed her noon dose. She would like a shot of toradol. Patient reports a better urinary stream. She denies any itching, burning, frequency, or urgency. She has completed a course of cipro. She denies any fevers or chills. Overall, she is improved in this regard. Patient would also like to have her incision evaluated so she can give a report to her home health nurses. Review of Systems Constitutional: Negative for chills, fatigue and fever. Respiratory: Negative for cough and shortness of breath. Cardiovascular: Negative for chest pain, palpitations and leg swelling. Genitourinary: Negative for decreased urine volume, dysuria, frequency and urgency. Musculoskeletal: Positive for arthralgias and back pain. Neurological: Negative for dizziness, light-headedness and headaches. Objective: BP 146/80 (BP Location: Right arm, Patient Position: Sitting) Pulse 99 Temp 36.4 C (97.6 F) (Temporal Artery (forehead)) Ht 157.3 cm (5' 1.93) Wt 66.4 kg (146 lb 4.8 oz) SpO2 95% BMI 26.82 kg/m2 Physical Exam Constitutional: She is oriented to person, place, and time. She appears well-developed and well-nourished. HENT: Head: Normocephalic and atraumatic. Eyes: Conjunctivae and EOM are normal. Pupils are equal, round, and reactive to light. Neck: Normal range of motion. Neck supple. Cardiovascular: Normal rate, regular rhythm, normal heart sounds and intact distal pulses. No murmur heard. Pulmonary/Chest: Effort normal and breath sounds normal. She has no wheezes. She has no rales. Abdominal: Soft. Bowel sounds are normal. Musculoskeletal: Normal range of motion. She exhibits no edema. Wearing thumb-spica splint; splint removed--minimal bruising/swelling present; cap refill in tact; strength and mobility in tact; pain on exam Neurological: She is alert and oriented to person, place, and time. Skin: Skin is warm and dry. Incision from lobectomy is healing well: no bleeding, erythema, discharge, swelling appreciated on exam; incision from chest tube healing well: no bleeding, erythema, discharge, swelling appreciated on exam Psychiatric: She has a normal mood and affect. Nursing note and vitals reviewed. Assessment/Plan: Problem List Items Addressed This Visit Urinary tract infection without hematuria - Primary Relevant Orders POCT UA Dipstick only. (Completed) Fall at home, sequela Relevant Medications ketorolac (TORADOL) 30 mg/mL injection Will give toradol in clinic. She will follow-up with Dr. Cardenas as scheduled on 11/29/17. No indication of UTI at this time. RTC as needed . RIC NEAL [facility] 2017-11-17 19:54:36 Patient Name: Ibis Tay Date of : 1955 Date of Evaluation: 11/17/2017 Provider: Priyanka Lin MD Chief Complaint Chief Complaint Patient presents with - Hand Pain reports a week ago, and stumbled on the stairs, injuring right thumb History of Present Illness HPI 62-year-old right-handed female with pain in her right thumb and wrist. Patient states she fell 5 days ago and has developed increasing pain and swelling at the base of her right thumb. Severe, throbbing, worse with movement. No other injuries or complaints. She does see a pain management doctor and takes oxycodone 10 mg 3 times daily, states that is not helping History- Medical/Surgical/Family/Social Past Medical History: Diagnosis Date - Anxiety Takes Xanax - Arthritis - Breast mass 2013 rt axilla - Bronchitis - Bursitis Left hip - Cancer (HCC) 12 left lung cancer, scheduled for left upper lobectomy at [facility] with Dr. Moore - Cervical radiculopathy sees Dr. Cardenas, gets cervical pain injections every 3 months, last done in - COPD (chronic obstructive pulmonary disease) (HCC) - DDD (degenerative disc disease) - Depression - Dermatological disorder 01/25 irratative dermatitis from insect b ite - Esophageal stricture dilated during upper endoscopy - Generalized anxiety disorder - GERD (gastroesophageal reflux disease) - H. pylori infection Hx of H pylori infection several months ago treated with medication, no current issues. - H/O pyloric stenosis - Hiatal hernia - HTN (hypertension) - Hypercholesteremia - Hyperlipidemia No current medications or issues. - OA (osteoarthritis) of knee - Palpitations with anxiety - Pneumonia 1994 resolved. - PTSD (post-traumatic stress disorder) son was murdered 8 years ago, followed by Dr. Milly Freire - Spinal stenosis cervical - Wears dentures full set - Wears glasses Past Surgical History: Procedure Laterality Date - ESOPHAGEAL DILATION 2012 approx. done with upper endoscopy - KNEE ARTHROPLASTY Right 2010 - LUMBAR FUSION 1995 - CO TOTAL KNEE ARTHROPLASTY Right 05/28/2014 Procedure: REPLACEMENT TOTAL JOINT KNEE RIGHT / BETO ; Surgeon: Isaak Moncada MD; Location: [facility] OR; Service: Orthopedics - SPINE SURGERY lumbar fusion - TENDON RELEASE Right arm - TOTAL HIP ARTHROPLASTY Left 09/26/14 hip hem-iarthoplasty - TOTAL KNEE ARTHROPLASTY Left 11/23 - TUBAL LIGATION Bilateral - UPPER GASTROINTESTINAL ENDOSCOPY 2012 approx. diagnosed with H. Pylori and esophagus dilated. - UPPER GASTROINTESTINAL ENDOSCOPY Family History Problem Relation Age of Onset - Other Other Hx: Yes Dx: Diabetes Fam Mem: Family h/o - Drug abuse Other - Other Other Hx: Yes Dx: Hypertension Fam Mem: Mother - Drug abuse Other - Hypertension Mother - Heart disease Mother - Diabetes Mother - No Known Problem Father - Other Sister - Cancer Sister - Other Other Hx: Yes Dx: Heart disease Fam Mem: Mother - Diabetes Maternal Grandmother Social History Social History - Marital status: Single Spouse name: N/A - Number of children: N/A - Years of education: 14 Occupational History - Not on file. Social History Main Topics - Smoking status: Current Every Day Smoker Packs/day: 0.50 Years: 44.00 Types: Cigarettes - Smokeless tobacco: Never Used - Alcohol use No - Drug use: No - Sexual activity: Not on file Other Topics Concern - Not on file Social History Narrative Home Medications Prior to Admission medications Medication Sig Start Date End Date Taking? Authorizing Provider alendronate (FOSAMAX) 70 MG tablet Take on empty stomach once weekly sitting upright for full hour after taking with big glass of water. No other meds or food for 1 hour 01/28/17 Mike Ann Jr., MD ALPRAZolam (XANAX) 1 MG tablet TAKE ONE TABLET BY MOUTH FOUR TIMES A DAY NEEDED FOR ANXIETY 11/14/17 Jojo Freire APRN atorvastatin (LIPITOR) 20 MG tablet TAKE ONE TABLET BY MOUTH DAILY 09/02/17 Mike Ann Jr., MD camphor-menthol (SARNA ANTI-ITCH) lotion Apply topically as needed for itching. 01/24/15 BETHEL Trinidad cholecalciferol (VITAMIN D3) 5,000 unit Tablet Take 1 tablet (5,000 Units total) by mouth once daily. 02/08/17 Mike Ann Jr., MD diaper,brief,adult,disposable Misc 1 application by Miscellaneous route 2 (two) times a day. 12/01/15 Mike Ann Jr., MD escitalopram oxalate (LEXAPRO) 20 MG tablet Take 1 tablet (20 mg total) by mouth once daily. 11/12/16 Jojo Freire APRN FLOVENT DISKUS 250 mcg/actuation Disk with Device INHALE ONE PUFF BY MOUTH TWICE A DAY, RINSE MOUTH AFTER USE 07/07/17 Mike Ann Jr., MD food supplemt, lactose-reduced (ENSURE) Liquid Drink 2 bottles per day. Patient requests strawberry. 11/19/16 Mike Ann Jr., MD guaiFENesin 200 mg tablet TAKE THREE TABLETS BY MOUTH TWICE A DAY FOR 10 DAYS 07/07/17 Mike Ann Jr., MD hydroCHLOROthiazide (HYDRODIURIL) 25 MG tablet Take 1 tablet (25 mg total) by mouth once daily. 06/08/17 Mike Ann Jr., MD ipratropium-albuterol (DUO-NEB) 0.5-2.5 mg/3 mL nebulizer Inhale 3 mL into the lungs 4 (four) times a day. 08/17/17 Mike Ann Jr., MD Lactobacillus acidoph-pectin (ACIDOPHILUS-PECTIN) 75 million cell -100 mg Capsule Take 1 capsule by mouth 2 (two) times a day. 09/13/17 Mike Ann Jr., MD lamoTRIgine (LAMICTAL) 150 MG tablet Take 1 tablet (150 mg total) by mouth 2 (two) times a day. 0900 and 1500 07/25/17 Jojo Freire APRN lisinopril (PRINIVIL,ZESTRIL) 10 MG tablet Take 1 tablet (10 mg total) by mouth once daily. 04/11/17 Mike Ann Jr., MD mirtazapine (REMERON) 45 MG tablet Take 1 tablet (45 mg total) by mouth daily every night. 07/25/17 Jojo Freire APRN montelukast (SINGULAIR) 10 mg tablet TAKE ONE TABLET BY MOUTH EVERY EVENING 04/13/17 Mike Ann Jr., MD nicotine (NICODERM CQ) 21 mg/[address] 1 patch onto the skin every 24 (twenty-four) hours. 08/31/17 Benson Fonseca MD omeprazole (PRILOSEC) 40 MG capsule TAKE ONE CAPSULE BY MOUTH DAILY 12/15/16 Mike Ann Jr., MD ondansetron (ZOFRAN ODT) 4 MG disintegrating tablet Take 1 tablet (4 mg total) by mouth every 8 (eight) hours as needed for nausea / vomiting. 03/04/17 TELMA Henao oxyCODONE-acetaminophen (PERCOCET) 5-325 mg tablet Take 1-2 tablets by mouth once every 4 (four) hours as needed for pain. Max Daily Amount: 12 tablets 10/14/17 Renee Diaz APRN polyethylene glycol (MIRALAX) 17 gram packet Take 17 g by mouth once daily. 10/15/17 Renee Diaz APRN potassium chloride (KLOR-CON) 10 MEQ CR tablet Take 2 tablets (20 mEq total) by mouth 2 (two) times a day. 10/17/17 Mike Ann Jr., MD prazosin (MINIPRESS) 2 MG capsule Take 2 capsules (4 mg total) by mouth daily every night. 07/25/17 Jojo Freire APRN PROAIR HFA 90 mcg/actuation inhaler INHALE TWO PUFFS BY MOUTH FOUR TIMES A DAY 05/12/17 Mike Ann Jr., MD QUEtiapine (SEROQUEL) 100 MG tablet Take 1 tablet (100 mg total) by mouth daily every night. Take one tab at night 11/17/17 Jojo Freire APRN QUEtiapine (SEROQUEL) 50 MG tablet Take one tab in the morning and one tab in the afternoon. 11/17/17 Jojo Freire APRN SENNALAX-S 8.6-50 mg TAKE TWO TABLETS BY MOUTH TWICE A DAY 12/08/16 Mike Ann Jr., MD underpads Pad Use as needed for incontinence 04/30/17 Mike Ann Jr., MD QUEtiapine (SEROQUEL) 200 MG tablet Take one tab at night Patient taking differently: 100 mg daily every night. Take one tab at night 07/25/17 11/17/17 Jojo Freire APRN QUEtiapine (SEROQUEL) 50 MG tablet Take one tab in the morning and one tab in the afternoon. 07/25/17 11/17/17 Jojo Freire APRN Allergies is allergic to penicillins; gabapentin; sulfa (sulfonamide antibiotics); and wellbutrin [bupropion hcl]. Review of Systems Review of Systems Neurological: Negative for weakness and numbness. Physical Exam ED Triage Vitals: BP: 149/91 [11/17/171941] Heart Rate: 92 [11/17/171941] Pulse Rate : 92 [11/17/171941] Temp: 35.9 C (96.6 F) [11/17/171941] Temp src: n/a Resp: 20 [11/17/171941] SpO2: 95 % [11/17/171941] BP (!) 149/91 Pulse 92 Temp 35.9 C (96.6 F) Resp 20 SpO2 95% Physical Exam Constitutional: She is oriented to person, place, and time. She appears distressed. Musculoskeletal: She exhibits tenderness. She exhibits no edema. Tender to right first metacarpal and proximal phalanx, tender scaphoid, good range of motion, tender over the ulnar collateral ligament but also diffusely over thumb. Sensation intact, warm, good capillary refill Neurological: She is alert and oriented to person, place, and time. She exhibits normal muscle tone. Skin: No rash noted. No erythema. Psychiatric: She has a normal mood and affect. Nursing note and vitals reviewed. Lab Results Emergency department lab results reviewed. Radiology Results XR Hand Minimum 3 Views Right Final Result Arthritic changes of the right first carpal metacarpal joint space. XR Wrist Minimum 3 Views Right Final Result Arthritic changes of the right first carpal metacarpal joint space. ED Course Procedures possible ulnar collateral ligament sprain or tear. Complete exam difficult due to patient's pain and tenderness. We'll place an thumb spica splint for comfort and healing. Follow-up with primary care physician in one to 2 weeks for recheck Diagnosis Clinical Impression Diagnosis Comment Added By Time Added Sprain of right thumb, unspecified site of finger, initial encounter Priyanka Lin MD 11/17/2017 8:55 PM Disposition Discharge [1] - 11/17/2017 8:56 PM Prescriptions Patient's Medications New Prescriptions No medications on file Previous Medications ALENDRONATE (FOSAMAX) 70 MG TABLET Take on empty stomach once weekly sitting upright for full hour after taking with big glass of water. No other meds or food for 1 hour ALPRAZOLAM (XANAX) 1 MG TABLET TAKE ONE TABLET BY MOUTH FOUR TIMES A DAY NEEDED FOR ANXIETY ATORVASTATIN (LIPITOR) 20 MG TABLET TAKE ONE TABLET BY MOUTH DAILY CAMPHOR-MENTHOL (SARNA ANTI-ITCH) LOTION Apply topically as needed for itching. CHOLECALCIFEROL (VITAMIN D3) 5,000 UNIT TABLET Take 1 tablet (5,000 Units total) by mouth once daily. DIAPER,BRIEF,ADULT,DISPOSABLE MISC 1 application by Miscellaneous route 2 (two) times a day. ESCITALOPRAM OXALATE (LEXAPRO) 20 MG TABLET Take 1 tablet (20 mg total) by mouth once daily. FLOVENT DISKUS 250 MCG/ACTUATION DISK WITH DEVICE INHALE ONE PUFF BY MOUTH TWICE A DAY, RINSE MOUTH AFTER USE FOOD SUPPLEMT, LACTOSE-REDUCED (ENSURE) LIQUID Drink 2 bottles per day. Patient requests strawberry. GUAIFENESIN 200 MG TABLET TAKE THREE TABLETS BY MOUTH TWICE A DAY FOR 10 DAYS HYDROCHLOROTHIAZIDE (HYDRODIURIL) 25 MG TABLET Take 1 tablet (25 mg total) by mouth once daily. IPRATROPIUM-ALBUTEROL (DUO-NEB) 0.5-2.5 MG/3 ML NEBULIZER Inhale 3 mL into the lungs 4 (four) times a day. LACTOBACILLUS ACIDOPH-PECTIN (ACIDOPHILUS-PECTIN) 75 MILLION CELL -100 MG CAPSULE Take 1 capsule by mouth 2 (two) times a day. LAMOTRIGINE (LAMICTAL) 150 MG TABLET Take 1 tablet (150 mg total) by mouth 2 (two) times a day. 0900 and 1500 LISINOPRIL (PRINIVIL,ZESTRIL) 10 MG TABLET Take 1 tablet (10 mg total) by mouth once daily. MIRTAZAPINE (REMERON) 45 MG TABLET Take 1 tablet (45 mg total) by mouth daily every night. MONTELUKAST (SINGULAIR) 10 MG TABLET TAKE ONE TABLET BY MOUTH EVERY EVENING NICOTINE (NICODERM CQ) 21 MG/[address] 1 patch onto the skin every 24 (twenty-four) hours. OMEPRAZOLE (PRILOSEC) 40 MG CAPSULE TAKE ONE CAPSULE BY MOUTH DAILY ONDANSETRON (ZOFRAN ODT) 4 MG DISINTEGRATING TABLET Take 1 tablet (4 mg total) by mouth every 8 (eight) hours as needed for nausea / vomiting. OXYCODONE-ACETAMINOPHEN (PERCOCET) 5-325 MG TABLET Take 1-2 tablets by mouth once every 4 (four) hours as needed for pain. Max Daily Amount: 12 tablets POLYETHYLENE GLYCOL (MIRALAX) 17 GRAM PACKET Take 17 g by mouth once daily. POTASSIUM CHLORIDE (KLOR-CON) 10 MEQ CR TABLET Take 2 tablets (20 mEq total) by mouth 2 (two) times a day. PRAZOSIN (MINIPRESS) 2 MG CAPSULE Take 2 capsules (4 mg total) by mouth daily every night. PROAIR HFA 90 MCG/ACTUATION INHALER INHALE TWO PUFFS BY MOUTH FOUR TIMES A DAY QUETIAPINE (SEROQUEL) 100 MG TABLET Take 1 tablet (100 mg total) by mouth daily every night. Take one tab at night QUETIAPINE (SEROQUEL) 50 MG TABLET Take one tab in the morning and one tab in the afternoon. SENNALAX-S 8.6-50 MG TAKE TWO TABLETS BY MOUTH TWICE A DAY UNDERPADS PAD Use as needed for incontinence Modified Medications No medications on file Discontinued Medications No medications on file Follow Up Mike Ann Jr., MD [address] [facility] [address] [facility] [address] In 2 weeks Follow-up in one to 2 weeks for recheck. Wear splint until seen. [facility] Priyanka Lin MD 11/17/[id number] PRIYANKA LIN [facility] 2017-10-24 15:41:02 I called patient to check on her post surgery. She stated that she is doing well, just quite fatigued. We discussed the importance of rest at this time. She verbalized understanding. She said that her [facility] nurse will be coming tomorrow to change her dressing, and that PT should be coming to her home soon after. She denied any needs at this time. I encouraged her to call with any questions/concerns. NU ROSS [facility] 2017-10-19 12:34:48 Called to order cont inued home O2. Will order and coordinate clinic follow up with her bean sorter, Dr Fonseca. ASHLEIGH PAIGE [facility] 2017-10-19 10:03:00 Occupational Therapy 10/19/17 1003 Start Time/Stop Time Start Time 1003 Stop Time 1027 Total Session Time (minutes) 24 min General OT Received On 10/19/17 Therapy Discipline/Visit # OT3 Visit Type Treatment Functional Status Prior to Onset Indep with ADLs and gait. Wears 2LO2. Hand Dominance Right Patient Subjective Information RN/Pt. agree to OT treatment session. Pt. states that she is discharging home this afternoon, and she has assistance available to help her if needed. Pt. stated she had no concerns about being safe once discharged home. Family/Caregiver/Grounds Maintenance Worker Present No Precautions Fall Risk Yes Pain Assessment Pain Assessment 0-10 Pain Score 1 0 Cognition/Communication Overall Cognitive Status WFL Basic Orientation Self;Place;Date;Event;Alert Basic Direction Following Follows 3-step directions Basic Communication verbal Safety/Judgement WFL Posture Posture rounded shoulders Posture Comments Pt. sat EOB for 15 min unsupported. Pt. able to weight bear into R/L hands to improve sitting balance. ADL Grooming Assistance Modified independent;Edge of Bed Dressing Assistance LE Edge of Bed;Modified independent ADL Comments Seated EOB, pt. able to doff/don R/L socks using cross leg technique mod I. Seated EOB, pt. washed face and combed hair mod I. Bed Mobility Seated Scooting Modified independent Supine to Sit Modified independent;1-person assist Sit to Supine Modified independent;1-person assist Bed Mobility Comments Pt. able to perform all bed mobility tasks mod I using R bedside rail Transfers Transfer Comments Pt. reported that she was nauseous when OT entered room. OT notified pts. nurse, and nurse administered anti-nausea medication mid-way thru OT treatment session, when pt. was seated EOB. Pt. declined performing any functional transfer. At the end of OT treatment session, pt. reported that nausea had decreased. Functional Mobility Functional Mobility not assessed Balance & Coordination Sitting Balance good EOB Standing Balance N/T Activity Tolerance Activity Tolerance Fair. Pt. limited by symptoms of nausea [employer] rest breaks as needed, edu on deep breathing, edu on pacing self Cardiopulmonary Response stable Assessment Data Problems Impaired functional mobility;Difficulty with ADL's;Impaired transfer skills;Fall risk Rehab Potential Good for stated goals Assessment Information OT to continue improving pts. safety and independence w. ADL/mobility tasks to promote return to PLOF Treatment Plan Information OT Treatment Plan ADL training;Functional mobility/transfer training;Safety training;DME recommendations;Adaptive equipment training;Patient/Family/Caregiver education OT Frequency/Duration OT to see 5x/week OT Treatment Plan Information OT goals set on 10/17/17 to be met by 10/24/17 1) LBD SBA with AE PRN-GOAL MET 2) Transfers SBA-NOT ASSESSED 10/19/17. Plan & Goals Discussed Yes - with patient Recommendation OT Recommendation Home with Assist Other Recommendations Pt. reports she has assistance available at home, and feels safe discharging home w. assist Patient Disposition Patient in bed;Nursing aware;Call Light/Pull Cord in reach Daily OT Patient Education: Education: ADL-grooming and Bed mobility Learner: patient Readiness: acceptance Method: Explanation Response: Demonstrated understanding Hanna Ngo OT Phone # [phone] HANNA NGO [facility] 2017-10-19 08:56:52 [facility] Respiratory Therapy Department [address] [place] [id number] RT Oxygen Determination/Titration Test Ibis Tay [id number] 1955 Ibis Tay is an 62 y.o. female referred for evaluation of Oxygen needs by Dr. Moore SpO2 Assessment SpO2 with supplemental oxygen at rest: 92% O2 Flow Rate at rest (L/min):3L SpO2 on O2 with exertion: 90% SpO2 on 4 lpm O2: NA Distance walked (Feet): 160 O2 Delivery Device: ASSEM[employer] RT Recommendation Based on Assessment Does Patient qualify for Home O2? (Y/N): Y O2 needed at rest (L/min): 3L O2 needed with activity (L/min): 3L* Home O2 referral called to (transitional gymnastics coach or DME): Vannessa Name of DME Supplier: [employer] Therapist Comments: Pt has oxygen at home. . NICOLE SANON [facility] 2017-10-19 08:41:17 Patient: Ibis hook : 1955 Age: 62 y.o. Date of Service: October 19, 2017 Admit Date: 10/11/2017 Admitting Diagnosis: Malignant neoplasm of upper lobe, left bronchus or lung [C34.12] Primary Care Physician: Mike Ann Jr, MD BP 129/54 (BP Location: Left arm, Patient Position: Lying) Pulse 99 Temp 36.6 C (97.9 F) (Oral) Resp 20 Ht 157.3 cm (5' 1.93) Wt 69.8 kg (153 lb 14.1 oz) SpO2 93% BMI 28.21 kg/m2 Subjective Interval History:Seen on hospital day 8 No acute events over night. Stable on 3L O2 Objective BP 129/54 (BP Location: Left arm, Patient Position: Lying) Pulse 99 Temp 36.6 C (97.9 F) (Oral) Resp 20 Ht 157.3 cm (5' 1.93) Wt 69.8 kg (153 lb 14.1 oz) SpO2 93% BMI 28.21 kg/m2 Body mass index is 28.21 kg/(m\S\2). Intake/Output Summary (Last 24 hours) at 10/19/17 0842 Last data filed at 10/19/17 0623 Gross per 24 hour Intake 600 ml Output 2250 ml Net -1650 ml Temp: 36.6 C (97.9 F) Heart Rate: 99 Resp: 20 BP: 129/54 Intake/Output last 3 shifts: I/O last 3 completed shifts: In: 610 [P.O.:600; I.V.:10] Out: 2250 [Urine:2250] Intake/Output this shift: AAOx3 Lungs: Fair air entry CVS exam: Normal sinus ABD: soft, non-tender; bowel sounds normal; no masses, no organomegaly Extremities: peripheral pulses normal, no pedal edema, no clubbing or cyanosis Incision: intact, no drainage- CXR: Reviewed see radiology interpertation - stable left apical pneumo, maybe slightly increased post chest tube removal CT: Removed 10/17 Weight 10/19/17 0033 69.8 kg (153 lb 14.1 oz) 10/18/17 0126 71.8 kg (158 lb 4.6 oz) 10/17/17 0432 72.8 kg (160 lb 7.9 oz) 10/16/17 0946 71.8 kg (158 lb 4.6 oz) 10/16/17 0550 71.8 kg (158 lb 4.6 oz) 10/15/17 0629 70.9 kg (156 lb 4.9 oz) 10/14/17 0901 74.3 kg (163 lb 12.8 oz) 10/13/17 0400 74.3 kg (163 lb 12.8 oz) 10/12/17 0600 73.5 kg (162 lb 0.6 oz) 10/11/17 1039 70.2 kg (154 lb 12.2 oz) 10/10/17 1113 73 kg (161 lb) 09/29/17 0757 73.1 kg (161 lb 3.2 oz) Medications: Scheduled Meds: - atorvastatin 20 mg Oral Daily - cholecalciferol 5,000 Units Oral Daily - escitalopram oxalate 20 mg Oral Daily - heparin (porcine) 5,000 units for SubQ injection 5,000 Units SubCutaneous BID - hydroCHLOROthiazide 25 mg Oral Daily - ipratropium-albuterol 3 mL Nebulization Q4H While Awake - lamoTRIgine 150 mg Oral BID - mirtazapine 45 mg Oral Nightly - montelukast 10 mg Oral Daily evening - nicotine 1 patch TransDermal Q24H - pantoprazole 20 mg Oral QAM AC - polyethylene glycol 17 g Oral Daily - potassium chloride 10 mEq Oral Daily - QUEtiapine 100 mg Oral Nightly - senna-docusate 2 tablet Oral BID - sodium chloride 10 mL IntraCatheter Q8H Continuous Infusions: Lab results: No results for input(s): WBC, HGB, HCT, MCV, PLT in the last 72 hours. No results for input(s): NA, K, CL, BUN, CREATININE, CALCIUM, GLU in the last 72 hours. Invalid input(s): HCO3 No results for input(s): AST, ALT, ALKPHOS, BILITOT, BILIDIR, ALBUMIN in the last 72 hours. Invalid input(s): PROTHROMBIN TIME Diagnostic Findings: Imaging (last 24 hours) Assessment and Plan: Non small cell carcinoma SYDNEE - POD 4 left upper lobectomy and LND- pathology resulted- see report - CT -removed 10/17 - D/c with [facility] today after rest and exercise complete (patient normally wears 2L O2 intermittently at home). Will have Pulmonary follow to prescribe O2 on discharge and follow as outpatient- She is a patient of Dr. Benson Fonseca. -F/u with oncology; Dr. Moore in 4 weeks. Malignant neoplasm of upper lobe, left bronchus or lung (HCC) Patient Active Problem List Diagnosis - Hypercholesteremia - Hyperlipidemia - Anxiety attack - Generalized anxiety disorder - Smoker - Essential hypertension - Acute bronchitis - AR (allergic rhinitis) - GERD (gastroesophageal reflux disease) - Osteoarthritis of right knee - Arthritis - DDD (degenerative disc disease) - Back pain - Anxiety state - Cervical disc disease - Cervical radiculopathy - Spinal stenosis - Cervical spondylosis with myelopathy - Screening - History of total knee arthroplasty - Knee pain - Trochanteric bursitis - Knee osteoarthritis - Knee joint replacement status - Hip fracture, left (HCC) - Depression - S/P total knee arthroplasty - S/P hip hemiarthroplasty- Left - Anxiety state - Pain in joint, lower leg - Routine general medical examination at a health care facility - Osteoarthritis of knee - Vitamin D deficiency - Dyslipidemia - Community acquired pneumonia - COPD exacerbation (HCC) - Hypoxia - Pneumonia of left lower lobe due to infectious organism - Severe sepsis (HCC) - Other chest pain - Pulmonary nodule - Lung cancer (HCC) - Mediastinal lymphadenopathy - Adenocarcinoma of lung, left (HCC) - Malignant neoplasm of upper lobe, left bronchus or lung (HCC) RENEE DIAZ [facility]I 2017-10-18 10:26:00 Occupational Therapy 10/18/17 1026 Start Time/Stop Time Start Time 1026 Stop Time 1049 Total Session Time (minutes) 23 min General OT Received On 10/18/17 Therapy Discipline/Visit # OT 2 Visit Type Treatment Functional Status Prior to Onset Indep with ADLs and gait. Wears 2LO2. Family/Caregiver/Grounds Maintenance Worker Present No Pain Assessment Pain Assessment 0-10 Pain Score 1 0 Cognition/Communication Overall Cognitive Status WFL ADL Toileting Assistance Stand By;Commode (with hygiene) ADL Comments Uses commode for toileting secondary to respiratory status. Patient's O2 sats were 81% when OT entered the room. Patient reports she just got done walking with PT and thinks she may have pushed herself a little too far. OT notified RN and turned O2 up to 4L. Patient O2 sats increased to 95% after about 10 minutes on 4L. OT turned O2 back down to 2L. Bed Mobility Supine to Sit Modified independent Sit to Supine Modified independent Bed Mobility Comments with use of bed features Transfers *Sit to Stand Stand by assist;1-person assist Stand to Sit Stand by assist;1-person assist Bedside Commode Transfers Stand by assist;1-person assist;Stand-pivot Transfer Comments Stand pivot completed due to respiratory status. Balance & Coordination Sitting Balance good Standing Balance good without AD Activity Tolerance Activity Tolerance fair Assessment Data Problems Impaired functional mobility;Difficulty with ADL's;Impaired transfer skills;Fall risk Rehab Potential Good for stated goals Treatment Plan Information OT Treatment Plan ADL training;Functional mobility/transfer training;Safety training;DME recommendations;Adaptive equipment training;Patient/Family/Caregiver education OT Frequency/Duration OT to see 5x/week OT Treatment Plan Information OT goals set on 10/17/17 to be met by 10/24/17 1) LBD SBA with AE PRN (Progressing) 2) Transfers SBA (Progressing) Plan & Goals Discussed Yes - with patient Recommendation OT Recommendation Home with Assist Patient Disposition Patient in bed;Call Light/Pull Cord in reach;Nursing aware Daily OT Patient Education: Education: Transfers and Bed mobility Learner: patient Readiness: acceptance Method: Explanation Response: Demonstrated understanding Hanna Ngo OT Phone # [phone] GETSANDRA MartinArt CATSRO 2017-10-18 10:10:21 Patient: Ibis hook : 1955 Age: 62 y.o. Date of Service: October 18, 2017 Admit Date: 10/11/2017 Admitting Diagnosis: Malignant neoplasm of upper lobe, left bronchus or lung [C34.12] Primary Care Physician: Mike Ann Jr, MD BP 142/68 (BP Location: Left arm, Patient Position: Lying) Pulse 97 Temp 36.8 C (98.2 F) (Oral) Resp 16 Ht 157.3 cm (5' 1.93) Wt 71.8 kg (158 lb 4.6 oz) SpO2 96% BMI 29.02 kg/m2 Subjective Interval History:Seen on hospital day 7 Chest tube removed yesterday. Breathing unchanged, remains on 2L Oxygen which is her baseline. Walking in hallway without difficulty. Objective BP 142/68 (BP Location: Left arm, Patient Position: Lying) Pulse 97 Temp 36.8 C (98.2 F) (Oral) Resp 16 Ht 157.3 cm (5' 1.93) Wt 71.8 kg (158 lb 4.6 oz) SpO2 96% BMI 29.02 kg/m2 Body mass index is 29.02 kg/(m\S\2). Intake/Output Summary (Last 24 hours) at 10/18/17 1012 Last data filed at 10/17/172026 Gross per 24 hour Intake 10 ml Output 30 ml Net -20 ml Temp: 36.8 C (98.2 F) Heart Rate: 97 Resp: 16 BP: 142/68 Intake/Output last 3 shifts: I/O last 3 completed shifts: In: 310 [P.O.:300; I.V.:10] Out: 600 [Urine:500; Chest Tube:100] Intake/Output this shift: AAOx3 Lungs: Fair air entry CVS exam: Normal sinus ABD: soft, non-tender; bowel sounds normal; no masses, no organomegaly Extremities: peripheral pulses normal, no pedal edema, no clubbing or cyanosis Incision: intact, no drainage- CXR: Reviewed see radiology interpertation - stable left apical pneumo, maybe slightly increased post chest tube removal CT: Removed 10/17 Weight 10/18/17 0126 71.8 kg (158 lb 4.6 oz) 10/17/17 0432 72.8 kg (160 lb 7.9 oz) 10/16/17 0946 71.8 kg (158 lb 4.6 oz) 10/16/17 0550 71.8 kg (158 lb 4.6 oz) 10/15/17 0629 70.9 kg (156 lb 4.9 oz) 10/14/17 0901 74.3 kg (163 lb 12.8 oz) 10/13/17 0400 74.3 kg (163 lb 12.8 oz) 10/12/17 0600 73.5 kg (162 lb 0.6 oz) 10/11/17 1039 70.2 kg (154 lb 12.2 oz) 10/10/17 1113 73 kg (161 lb) 09/29/17 0757 73.1 kg (161 lb 3.2 oz) Medications: Scheduled Meds: - atorvastatin 20 mg Oral Daily - cholecalciferol 5,000 Units Oral Daily - escitalopram oxalate 20 mg Oral Daily - heparin (porcine) 5,000 units for SubQ injection 5,000 Units SubCutaneous BID - hydroCHLOROthiazide 25 mg Oral Daily - ipratropium-albuterol 3 mL Nebulization Q4H While Awake - lamoTRIgine 150 mg Oral BID - mirtazapine 45 mg Oral Nightly - montelukast 10 mg Oral Daily evening - nicotine 1 patch TransDermal Q24H - pantoprazole 20 mg Oral QAM AC - polyethylene glycol 17 g Oral Daily - potassium chloride 10 mEq Oral Daily - QUEtiapine 100 mg Oral Nightly - senna-docusate 2 tablet Oral BID - sodium chloride 10 mL IntraCatheter Q8H Continuous Infusions: Lab results: No results for input(s): WBC, HGB, HCT, MCV, PLT in the last 72 hours. No results for input(s): NA, K, CL, BUN, CREATININE, CALCIUM, GLU in the last 72 hours. Invalid input(s): HCO3 No results for input(s): AST, ALT, ALKPHOS, BILITOT, BILIDIR, ALBUMIN in the last 72 hours. Invalid input(s): PROTHROMBIN TIME Diagnostic Findings: Imaging (last 24 hours) Assessment and Plan: Non small cell carcinoma SYDNEE - POD 7 left upper lobectomy and LND- pathology resulted- see report - CT -removed 10/17 - continue PT/OT - lasix 20mg x1, resume HCTZ - Discharge home tomorrow (patient has support at home, denies need for HHC) She does not have a ride until tomorrow. Malignant neoplasm of upper lobe, left bronchus or lung (HCC) Patient Active Problem List Diagnosis - Hypercholesteremia - Hyperlipidemia - Anxiety attack - Generalized anxiety disorder - Smoker - Essential hypertension - Acute bronchitis - AR (allergic rhinitis) - GERD (gastroesophageal reflux disease) - Osteoarthritis of right knee - Arthritis - DDD (degenerative disc disease) - Back pain - Anxiety state - Cervical disc disease - Cervical radiculopathy - Spinal stenosis - Cervical spondylosis with myelopathy - Screening - History of total knee arthroplasty - Knee pain - Trochanteric bursitis - Knee osteoarthritis - Knee joint replacement status - Hip fracture, left (HCC) - Depression - S/P total knee arthroplasty - S/P hip hemiarthroplasty- Left - Anxiety state - Pain in joint, lower leg - Routine general medical examination at a health care facility - Osteoarthritis of knee - Vitamin D deficiency - Dyslipidemia - Community acquired pneumonia - COPD exacerbation (HCC) - Hypoxia - Pneumonia of left lower lobe due to infectious organism - Severe sepsis (HCC) - Other chest pain - Pulmonary nodule - Lung cancer (HCC) - Mediastinal lymphadenopathy - Adenocarcinoma of lung, left (HCC) - Malignant neoplasm of upper lobe, left bronchus or lung (HCC) RENEE DIAZ CHI 2017-10-18 09:44:00 Physical Therapy 10/18/17 0944 Start Time/Stop Time Start Time 0944 Stop Time 1008 Total Session Time (minutes) 24 min General PT Received On 10/18/17 Therapy Discipline/Visit # PT 2 Onset Date 10/11/17 Visit Type Treatment Functional Status Prior to Onset Indep with ADLs and gait. Wears 2LO2. Patient Subjective Information Agrees to PT Family/Caregiver/Grounds Maintenance Worker Present No Precautions Fall Risk Yes Pain Assessment Pain Assessment 0-10 Pain Score 1 3 Sedation Scale 1 - Awake and Alert Vitals Heart Rate 101 SpO2 90 % (on 2 L O2) Cognition/Communication Overall Cognitive Status WFL Basic Orientation Self;Place;Date;Event;Alert Basic Direction Following Follows 3-step directions Basic Communication verbal Safety/Judgement WFL Basic Strength/ROM/Tone Assessment Comments - Basic Strength/ROM/Tone WFL Bed Mobility Sit to Supine Independent Bed Mobility Comments HOB flat, no use of rails Transfers *Sit to Stand Stand by assist;1-person assist;Gait Belt Used Stand to Sit Stand by assist;1-person assist;Gait Belt Used Transfer Comments Patient demo no LOB with transfers Gait/Mobility Pattern Shuffling Gait Assistance Stand by;1-person assist Assistive Device None Gait Distance 250 ft Gait Speed WFL Stair Management Assistance Not performed Gait/Mobility Comment No LOB with ambulation. Pt did report feeling sweaty after ambulation trial. Balance & Coordination Sitting Balance good Standing Balance good without AD Activity Tolerance Activity Tolerance fair+ Cardiopulmonary Response HR 114 with ambulation, SpO2 94% on 2 L O2 Assessment Data Problems Decreased gait tolerance;Decreased activity tolerance;Pain Rehab Potential Good for stated goals Assessment Information Patient able to tolerate all activity this date without an increase in pain. Pt demo no LOB but still slightly unsteady with ambulation and transfers. Pt will continue to benefit from skilled PT to improve functional mobility and activity tolerance. Treatment Plan Information PT Treatment Plan Therapeutic Exercise;Functional Mobility;Transfer training;Gait training;Stair training PT Frequency/Duration pt.to be seen daily to increase independence, endurance in gait, stairs PT Treatment Plan Information Goals set /2 to be met 10-21-17, goals to be met 1) pt. to transfer modified independent ,2) pt.to ambulate 350 feet independently , 3) pt. to ambulate stairs modified independent Plan & Goals Discussed Yes - with patient Recommendation PT Recommendation Home with assistance Patient Disposition Patient in bed;Call Light/Pull Cord in reach;Nursing aware Daily PT Patient Education: Education: Ambulation, Equipment , Transfers and Balance Learner: patient Readiness: acceptance Method: Explanation Response: Verbalized understanding and Needs reinforcement . Phone: [phone] KAYLAN PATTON CHI 2017-10-18 08:09:43 10/16/17 0946 Nutrition Assessment Height 157.3 cm (5' 1.93) Weight 71.8 kg (158 lb 4.6 oz) BMI 29 Calorie Needs (kcal) 1795 (-2154kcals) Formula Used kcal/kg (specify) (25-30kcals/kg Actual BW) Protein g/kg 1.2 (-1.5g/kg Actual BW) Protein (g) Needs Total 86 (-108g) Fluid mL/kg 20 (-25ml/kg Actual BW) Fluid (mL) Needs Total 1436 (-1795ml) Completed by: Dietitian Dx: Small cell lung cancer. S/P Lobectomy, POD#4. Diet: Regular. Patient reports her appetite is fair. Patient does take Ensure at home and request to receive it on her trays. Weight Hx: 07/08/17: 171# CBW (10/16/17): 158# - Weight loss of 13# or 8% over the last 4 months. Labs: Na+=132, K+=4.2, Cl-=101, BUN=6, Cr=0.74, Diua=920, Ca+=7.6 Medications: Vitamin D3, Remeron, Protonix, KCL, Senna NFPE: Unremarkable Nutrition Dx: Increased protein-calorie needs related to surgery and cancer dx AEB POD#4 lobectomy due to lung cancer. Goal: Oral intake greater than or equal to 75%. Nutrition recommendations/intervention: 1) Patient agreeable to Ensure Enlive BID with meals (strawberry) Nutrition monitoring/evaluation: -Patient continues with fair appetite and intake, will continue to send ONS per patient preference. -Will continue to monitor oral intake, supplement tolerance, and POC. -Will follow-up in 3-[address], [facility] # [phone] [facility] 2017-10-17 15:17:00 Physical Therapy 10/17/17 1517 Start Time/Stop Time Start Time 1453 Stop Time 1517 Total Session Time (minutes) 24 min General PT Received On 10/17/17 Therapy Discipline/Visit # PT1 Visit Type Initial Eval Functional Status Prior to Onset independent Family/Caregiver/Grounds Maintenance Worker Present No Precautions Weight Bearing Precautions full weight bearing bilaterally L.E.s Home Living Lives With Significant other;Family Type of Home Mobile home Home Living Comments pt. has 4 steps to enter, Pain Assessment Pain Assessment 0-10 Pain Score 1 6 Pain Type Surgical pain Pain Location Rib cage Pain Orientation Left Cognition/Communication Overall Cognitive Status WFL Basic Strength/ROM/Tone Assessment Basic Strength/ROM/Tone R UE range wfls, strength good Basic Strength/ROM/Tone L UE range wfls, strength good Basic Strength/ROM/Tone R LE range wfls, strength good Basic Strength/ROM/Tone L LE range wfls, strength good Bed Mobility Supine to Sit Supervision;1-person assist Sit to Supine Supervision;1-person assist Transfers *Sit to Stand Contact guard;1-person assist Stand to Sit Contact guard;1-person assist Toilet Transfers Contact guard;1-person assist Gait/Mobility Gait Assistance Contact guard;1-person assist Assistive Device None Gait Distance 120 feet x 1 Gait Speed slow, steady Balance & Coordination Sitting Balance good Standing Balance good with no assist. device Activity Tolerance Activity Tolerance fair for gait, transfers, bed mobility Functional Reporting Current Status Mobility: walking & moving around (G8978) Mobility: Walking and Moving Around Current Status At least 20 percent but less than 40 percent impaired, limited or restricted As indicated by a score of 16 on the Assessment Tool Barlow 6-Click - Basic Mobility Goal Status (LTG) Mobility: walking & moving around (G8979) Mobility: Walking and Moving Around Goal Status At least 1 percent but less than 20 percent impaired, limited or restricted As indicated by a score of 22 on the Assessment Tool Barlow 6-Click - Basic Mobility Assessment Data Problems Decreased gait tolerance;Decreased activity tolerance;Pain Rehab Potential Good for stated goals Treatment Plan Information PT Treatment Plan Therapeutic Exercise;Functional Mobility;Transfer training;Gait training;Stair training PT Frequency/Duration pt.to be seen daily to increase independence, endurance in gait, stairs PT Treatment Plan Information physical therapy initiated this date, goals to be met 10-21-17, goals to be met 1) pt. to transfer modified independent ,2) pt.to ambulate 350 feet independently , 3) pt. to ambulate stairs modified independent Plan & Goals Discussed Yes - with patient Recommendation PT Recommendation Home with assistance;Home PT Patient Disposition Patient in bed;Call Light/Pull Cord in reach;Nursing aware Daily PT Patient Education: Education: Ambulation, Transfers and Bed mobility Learner: patient Readiness: acceptance and eager Method: Explanation Demonstration Response: Verbalized understanding and Demonstrated understanding PT evaluation determined to be a High Complexity Evaluation based on clinical history, examination, clinical presentation and decision making. Seferino Valadez P.T. [phone] [facility] VALADEZ [facility] 2017-10-17 14:55:00 Occupational Therapy 10/17/17 1455 Start Time/Stop Time Start Time 1455 Stop Time 1518 Total Session Time (minutes) 23 min General OT Received On 10/17/17 Therapy Discipline/Visit # OT 1 Visit Type Initial Eval Functional Status Prior to Onset Indep with ADLs and gait. Wears 2LO2. 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 granddaughter) Receives Help From Family Type of Home Mobile home Home Layout Stairs to enter with rails (4 AYAH) Bathroom Shower/Tub Tub/shower unit Bathroom Toilet Standard Bathroom Equipment Shower chair Bathroom Accessibility Accessible Home Equipment Available Standard walker;Straight cane Pain Assessment Pain Assessment 0-10 Pain Score 1 6 Pain Location Rib cage Pain Orientation Left Cognition/Communication Overall Cognitive Status WFL Basic Strength/ROM/Tone Assessment Basic Strength/ROM/Tone R UE WFL Basic Strength/ROM/Tone L UE WFL ADL Dressing Assistance LE Minimal;Edge of Bed (with socks) Bed Mobility Supine to Sit Stand by;1-person assist Sit to Supine Stand by;1-person assist Bed Mobility Comments with use of bed features Transfers *Sit to Stand Contact guard;1-person assist;Gait Belt Used Stand to Sit Contact guard;1-person assist;Gait Belt Used Toilet Transfers Contact guard;1-person assist;Gait Belt Used Balance & Coordination Sitting Balance good Standing Balance good without AD Activity Tolerance Activity Tolerance fair-good Functional Reporting Current Status Self care (G8987) Self Care Current Status At least 20 percent but less than 40 percent impaired, limited or restricted Goal Status Self care (G8988) Self Care Goal Status At least 1 percent but less than 20 percent impaired, limited or restricted Assessment Data Problems Impaired functional mobility;Difficulty with ADL's;Impaired transfer skills;Fall risk Rehab Potential Good for stated goals Treatment Plan Information OT Treatment Plan ADL training;Functional mobility/transfer training;Safety training;DME recommendations;Adaptive equipment training;Patient/Family/Caregiver education OT Frequency/Duration OT to see 5x/week OT Treatment Plan Information OT goals set on 10/17/17 to be met by 10/24/17 1) LBD SBA with AE PRN (Progressing) 2) Transfers SBA (Progressing) Plan & Goals Discussed Yes - with patient Recommendation OT Recommendation Home with Assist Patient Disposition Patient in bed;Nursing aware;Call Light/Pull Cord in reach OT evaluation determined to be a Low Complexity Evaluation based on clinical history, examination and decision making. Daily OT Patient Education: Education: ADL-dressing Learner: patient Readiness: acceptance Method: Explanation Response: Needs reinforcement Hanna Ngo OT Phone # [phone] GETMario HANNA [facility] 2017-10-17 09:34:42 Patient: Ibis hook : 1955 Age: 62 y.o. Date of Service: October 17, 2017 Admit Date: 10/11/2017 Admitting Diagnosis: Malignant neoplasm of upper lobe, left bronchus or lung [C34.12] Primary Care Physician: Mike Ann Jr, MD BP 121/58 (BP Location: Left arm, Patient Position: Sitting) Pulse 92 Temp 36.7 C (98 F) (Oral) Resp 20 Ht 157.3 cm (5' 1.93) Wt 72.8 kg (160 lb 7.9 oz) SpO2 94% BMI 29.42 kg/m2 Subjective Interval History:Seen on hospital day 6 Anxious to get chest tube out. Reports productive cough and pain at chest tube site. CT was on -20sx over night. Objective BP 121/58 (BP Location: Left arm, Patient Position: Sitting) Pulse 92 Temp 36.7 C (98 F) (Oral) Resp 20 Ht 157.3 cm (5' 1.93) Wt 72.8 kg (160 lb 7.9 oz) SpO2 94% BMI 29.42 kg/m2 Body mass index is 29.42 kg/(m\S\2). Intake/Output Summary (Last 24 hours) at 10/17/17 0941 Last data filed at 10/17/17 0432 Gross per 24 hour Intake 300 ml Output 870 ml Net -570 ml Temp: 36.7 C (98 F) Heart Rate: 92 Resp: 20 BP: 121/58 Intake/Output last 3 shifts: I/O last 3 completed shifts: In: 800 [P.O.:800] Out: 1775 [Urine:1675; Chest Tube:100] Intake/Output this shift: AAOx3 Lungs: Fair air entry CVS exam: Normal sinus ABD: soft, non-tender; bowel sounds normal; no masses, no organomegaly Extremities: peripheral pulses normal, no pedal edema, no clubbing or cyanosis Incision: intact, no drainage- serous drainage around dressing CXR: Reviewed see radiology interpertation CT: No air leak on -20sx CT 70ml/24 hours Weight 10/17/17 0432 72.8 kg (160 lb 7.9 oz) 10/16/17 0946 71.8 kg (158 lb 4.6 oz) 10/16/17 0550 71.8 kg (158 lb 4.6 oz) 10/15/17 0629 70.9 kg (156 lb 4.9 oz) 10/14/17 0901 74.3 kg (163 lb 12.8 oz) 10/13/17 0400 74.3 kg (163 lb 12.8 oz) 10/12/17 0600 73.5 kg (162 lb 0.6 oz) 10/11/17 1039 70.2 kg (154 lb 12.2 oz) 10/10/17 1113 73 kg (161 lb) 09/29/17 0757 73.1 kg (161 lb 3.2 oz) Medications: Scheduled Meds: - atorvastatin 20 mg Oral Daily - cholecalciferol 5,000 Units Oral Daily - escitalopram oxalate 20 mg Oral Daily - heparin (porcine) 5,000 units for SubQ injection 5,000 Units SubCutaneous BID - ipratropium-albuterol 3 mL Nebulization Q4H While Awake - lamoTRIgine 150 mg Oral BID - mirtazapine 45 mg Oral Nightly - montelukast 10 mg Oral Daily evening - nicotine 1 patch TransDermal Q24H - pantoprazole 20 mg Oral QAM AC - polyethylene glycol 17 g Oral Daily - potassium chloride 10 mEq Oral Daily - QUEtiapine 100 mg Oral Nightly - senna-docusate 2 tablet Oral BID - sodium chloride 10 mL IntraCatheter Q8H Continuous Infusions: - fentaNYL 2 mcg/mL-ropivacaine 0.2% in 0.9% sodium chloride 250 mL EPIDURAL Stopped (10/17/17 0035) Lab results: No results for input(s): WBC, HGB, HCT, MCV, PLT in the last 72 hours. No results for input(s): NA, K, CL, BUN, CREATININE, CALCIUM, GLU in the last 72 hours. Invalid input(s): HCO3 No results for input(s): AST, ALT, ALKPHOS, BILITOT, BILIDIR, ALBUMIN in the last 72 hours. Invalid input(s): PROTHROMBIN TIME Diagnostic Findings: Imaging (last 24 hours) Assessment and Plan: Non small cell carcinoma SYDNEE - POD 6 left upper lobectomy and LND- pathology resulted- see report - CT -no air leak on suction, minimal drainage - Trial water seal, if continues no air leak will remove tube later today or tomorrow. Malignant neoplasm of upper lobe, left bronchus or lung (HCC) Patient Active Problem List Diagnosis - Hypercholesteremia - Hyperlipidemia - Anxiety attack - Generalized anxiety disorder - Smoker - Essential hypertension - Acute bronchitis - AR (allergic rhinitis) - GERD (gastroesophageal reflux disease) - Osteoarthritis of right knee - Arthritis - DDD (degenerative disc disease) - Back pain - Anxiety state - Cervical disc disease - Cervical radiculopathy - Spinal stenosis - Cervical spondylosis with myelopathy - Screening - History of total knee arthroplasty - Knee pain - Trochanteric bursitis - Knee osteoarthritis - Knee joint replacement status - Hip fracture, left (HCC) - Depression - S/P total knee arthroplasty - S/P hip hemiarthroplasty- Left - Anxiety state - Pain in joint, lower leg - Routine general medical examination at a health care facility - Osteoarthritis of knee - Vitamin D deficiency - Dyslipidemia - Community acquired pneumonia - COPD exacerbation (HCC) - Hypoxia - Pneumonia of left lower lobe due to infectious organism - Severe sepsis (HCC) - Other chest pain - Pulmonary nodule - Lung cancer (HCC) - Mediastinal lymphadenopathy - Adenocarcinoma of lung, left (HCC) - Malignant neoplasm of upper lobe, left bronchus or lung (HCC) RENEE DIAZ [facility] 2017-10-16 10:42:27 Patient: Ibis hook : 1955 Age: 62 y.o. Date of Service: October 16, 2017 Admit Date: 10/11/2017 Admitting Diagnosis: Malignant neoplasm of upper lobe, left bronchus or lung [C34.12] Primary Care Physician: Mike Ann Jr, MD BP 155/80 (BP Location: Left arm, Patient Position: Semi Fowlers) Pulse 102 Temp 37.1 C (98.8 F) (Oral) Resp 18 Ht 157.3 cm (5' 1.93) Wt 71.8 kg (158 lb 4.6 oz) SpO2 91% BMI 29.02 kg/m2 Subjective Interval History:Seen on hospital day 5 Objective BP 155/80 (BP Location: Left arm, Patient Position: Semi Fowlers) Pulse 102 Temp 37.1 C (98.8 F) (Oral) Resp 18 Ht 157.3 cm (5' 1.93) Wt 71.8 kg (158 lb 4.6 oz) SpO2 91% BMI 29.02 kg/m2 Body mass index is 29.02 kg/(m\S\2). Intake/Output Summary (Last 24 hours) at 10/16/17 1042 Last data filed at 10/16/17 0359 Gross per 24 hour Intake 500 ml Output 1705 ml Net -1205 ml Temp: 37.1 C (98.8 F) Heart Rate: 102 Resp: 18 BP: 155/80 Intake/Output last 3 shifts: I/O last 3 completed shifts: In: 775.5 [P.O.:740; I.V.:35.5] Out: 3075 [Urine:3025; Chest Tube:50] Intake/Output this shift: Neuro: AOx3 Lungs: Normal air entry CVS exam: Normal sinus ABD:: soft, non-tender; bowel sounds normal; no masses, no organomegaly Extremities:: no pedal edema noted Incision: intact, no drainage CXR: Reviewed see radiology interpertation CT: Weight 10/16/17 0946 71.8 kg (158 lb 4.6 oz) 10/16/17 0550 71.8 kg (158 lb 4.6 oz) 10/15/17 0629 70.9 kg (156 lb 4.9 oz) 10/14/17 0901 74.3 kg (163 lb 12.8 oz) 10/13/17 0400 74.3 kg (163 lb 12.8 oz) 10/12/17 0600 73.5 kg (162 lb 0.6 oz) 10/11/17 1039 70.2 kg (154 lb 12.2 oz) 10/10/17 1113 73 kg (161 lb) 09/29/17 0757 73.1 kg (161 lb 3.2 oz) Medications: Scheduled Meds: - atorvastatin 20 mg Oral Daily - cholecalciferol 5,000 Units Oral Daily - escitalopram oxalate 20 mg Oral Daily - heparin (porcine) 5,000 units for SubQ injection 5,000 Units SubCutaneous BID - ipratropium-albuterol 3 mL Nebulization Q4H While Awake - lamoTRIgine 150 mg Oral BID - mirtazapine 45 mg Oral Nightly - montelukast 10 mg Oral Daily evening - nicotine 1 patch TransDermal Q24H - pantoprazole 20 mg Oral QAM AC - polyethylene glycol 17 g Oral Daily - potassium chloride 10 mEq Oral Daily - QUEtiapine 100 mg Oral Nightly - senna-docusate 2 tablet Oral BID - sodium chloride 10 mL IntraCatheter Q8H Continuous Infusions: - fentaNYL 2 mcg/mL-ropivacaine 0.2% in 0.9% sodium chloride 250 mL EPIDURAL 4 mL/hr at 10/14/172041 Lab results: No results for input(s): WBC, HGB, HCT, MCV, PLT in the last 72 hours. No results for input(s): NA, K, CL, BUN, CREATININE, CALCIUM, GLU in the last 72 hours. Invalid input(s): HCO3 No results for input(s): AST, ALT, ALKPHOS, BILITOT, BILIDIR, ALBUMIN in the last 72 hours. Invalid input(s): PROTHROMBIN TIME Echocardiogram: Assessment and Plan: Good wet cough. I do not see an airleak today. Malignant neoplasm of upper lobe, left bronchus or lung Patient Active Problem List Diagnosis - Hypercholesteremia - Hyperlipidemia - Anxiety attack - Generalized anxiety disorder - Smoker - Essential hypertension - Acute bronchitis - AR (allergic rhinitis) - GERD (gastroesophageal reflux disease) - Osteoarthritis of right knee - Arthritis - DDD (degenerative disc disease) - Back pain - Anxiety state - Cervical disc disease - Cervical radiculopathy - Spinal stenosis - Cervical spondylosis with myelopathy - Screening - History of total knee arthroplasty - Knee pain - Trochanteric bursitis - Knee osteoarthritis - Knee joint replacement status - Hip fracture, left (HCC) - Depression - S/P total knee arthroplasty - S/P hip hemiarthroplasty- Left - Anxiety state - Pain in joint, lower leg - Routine general medical examination at a health care facility - Osteoarthritis of knee - Vitamin D deficiency - Dyslipidemia - Community acquired pneumonia - COPD exacerbation (HCC) - Hypoxia - Pneumonia of left lower lobe due to infectious organism - Severe sepsis (HCC) - Other chest pain - Pulmonary nodule - Lung cancer (HCC) - Mediastinal lymphadenopathy - Adenocarcinoma of lung, left (HCC) - Malignant neoplasm of upper lobe, left bronchus or lung ARIANNA CHING [facility] 2017-10-16 09:47:42 10/16/17 0946 Nutrition Assessment Height 157.3 cm (5' 1.93) Weight 71.8 kg (158 lb 4.6 oz) BMI 29 Calorie Needs (kcal) 1795 (-2154kcals) Formula Used kcal/kg (specify) (25-30kcals/kg Actual BW) Protein g/kg 1.2 (-1.5g/kg Actual BW) Protein (g) Needs Total 86 (-108g) Fluid mL/kg 20 (-25ml/kg Actual BW) Fluid (mL) Needs Total 1436 (-1795ml) Completed by: Dietitian Dx: Small cell lung cancer. S/P Lobectomy, POD#4. Diet: Regular. Patient reports her appetite is fair. Patient does take Ensure at home and request to receive it on her trays. Weight Hx: 17: 171# CBW (10/16/17): 158# - Weight loss of 13# or 8% over the last 4 months. Labs: Na+=132, K+=4.2, Cl-=101, BUN=6, Cr=0.74, Xdit=340, Ca+=7.6 Medications: Vitamin D3, Remeron, Protonix, KCL, Senna NFPE: Unremarkable Nutrition Dx: Increased protein-calorie needs related to surgery and cancer dx AEB POD#4 lobectomy due to lung cancer. Goal: Oral intake greater than or equal to 75%. Nutrition recommendations/intervention: 1) Patient agreeable to Ensure Enlive BID with meals (strawberry) Nutrition monitoring/evaluation: 1) Will monitor oral intake, supplement tolerance, and POC. 2) Will follow-up in 2-[address], LMNT, LD, [facility] Spectralink [phone] all page [phone]. SRIRAM CNOCEPCION [facility] 2017-10-15 09:02:38 Patient: Ibis hook : 1955 Age: 62 y.o. Date of Service: October 15, 2017 Admit Date: 10/11/2017 Admitting Diagnosis: Malignant neoplasm of upper lobe, left bronchus or lung [C34.12] Primary Care Physician: Mike Ann Jr, MD BP 120/56 (BP Location: Right arm, Patient Position: High Fowlers) Pulse 104 Temp 36.6 C (97.8 F) (Oral) Resp 20 Ht 157.3 cm (5' 1.93) Wt 70.9 kg (156 lb 4.9 oz) SpO2 92% BMI 28.65 kg/m2 Subjective Interval History:Seen on hospital day 4 C/o drainage leaking around chest tube site. Denies difficulty breathing. Reports productive cough. Objective BP 120/56 (BP Location: Right arm, Patient Position: High Fowlers) Pulse 104 Temp 36.6 C (97.8 F) (Oral) Resp 20 Ht 157.3 cm (5' 1.93) Wt 70.9 kg (156 lb 4.9 oz) SpO2 92% BMI 28.65 kg/m2 Body mass index is 28.65 kg/(m\S\2). Intake/Output Summary (Last 24 hours) at 10/15/17 0903 Last data filed at 10/15/17 0400 Gross per 24 hour Intake 384.5 ml Output 1591 ml Net -1206.5 ml Temp: 36.6 C (97.8 F) Heart Rate: 104 Resp: 20 BP: 120/56 Intake/Output last 3 shifts: I/O last 3 completed shifts: In: 384.5 [P.O.:240; I.V.:144.5] Out: 2491 [Urine:2340; Stool:1; Chest Tube:150] Intake/Output this shift: AAOx3 Lungs: Fair air entry CVS exam: Normal sinus ABD: soft, non-tender; bowel sounds normal; no masses, no organomegaly Extremities: peripheral pulses normal, no pedal edema, no clubbing or cyanosis Incision: intact, no drainage CXR: Reviewed see radiology interpertation CT: Air Leak Small intermittent- CT 40ml/24 hours decreasomg Weight 10/15/17 0629 70.9 kg (156 lb 4.9 oz) 10/14/17 0901 74.3 kg (163 lb 12.8 oz) 10/13/17 0400 74.3 kg (163 lb 12.8 oz) 10/12/17 0600 73.5 kg (162 lb 0.6 oz) 10/11/17 1039 70.2 kg (154 lb 12.2 oz) 10/10/17 1113 73 kg (161 lb) 09/29/17 0757 73.1 kg (161 lb 3.2 oz) Medications: Scheduled Meds: - atorvastatin 20 mg Oral Daily - cholecalciferol 5,000 Units Oral Daily - escitalopram oxalate 20 mg Oral Daily - heparin (porcine) 5,000 units for SubQ injection 5,000 Units SubCutaneous BID - ipratropium-albuterol 3 mL Nebulization Q4H While Awake - lamoTRIgine 150 mg Oral BID - mirtazapine 45 mg Oral Nightly - montelukast 10 mg Oral Daily evening - nicotine 1 patch TransDermal Q24H - pantoprazole 20 mg Oral QAM AC - polyethylene glycol 17 g Oral Daily - potassium chloride 10 mEq Oral Daily - QUEtiapine 100 mg Oral Nightly - senna-docusate 2 tablet Oral BID - sodium chloride 10 mL IntraCatheter Q8H Continuous Infusions: - fentaNYL 2 mcg/mL-ropivacaine 0.2% in 0.9% sodium chloride 250 mL EPIDURAL 4 mL/hr at 10/14/172041 Lab results: No results for input(s): WBC, HGB, HCT, MCV, PLT in the last 72 hours. Recent Labs 10/13/17 0545 NA 132* K 4.2 CL 101 BUN 6 CREATININE 0.74 CALCIUM 7.6* GLU 171* No results for input(s): AST, ALT, ALKPHOS, BILITOT, BILIDIR, ALBUMIN in the last 72 hours. Invalid input(s): PROTHROMBIN TIME Diagnostic Findings: Imaging (last 24 hours) Recent Results (from the past 48 hours) XR Chest 1 View 10/15/2017 7:54 AM Impression 1. Increased density throughout the left lung may relate to increased infiltrate, atelectasis, and/or pleural fluid.2. Unchanged trace left apical pneumothorax.3. Decreased pulmonary vascular congestion.I was involved in the evaluation of these images and agree with the interpretation. XR Chest 1 View 10/14/2017 8:04 AM Impression 1. Increased density within the left lung base may relate to patient rotation, although underlying infiltrate or atelectasis is not excluded.2. Unchanged trace left apical pneumothorax.3. Mild increased pulmonary congestion.I, Dr. Ricco Moctezuma, have personally reviewed the images and the resident's interpretation and have edited the findings. Assessment and Plan: Non small cell carcinoma SYDNEE - POD 4 left upper lobectomy and LND- pathology pending - CT with unchanged left apical pneumo - very small intermittent air leak Malignant neoplasm of upper lobe, left bronchus or lung Patient Active Problem List Diagnosis - Hypercholesteremia - Hyperlipidemia - Anxiety attack - Generalized anxiety disorder - Smoker - Essential hypertension - Acute bronchitis - AR (allergic rhinitis) - GERD (gastroesophageal reflux disease) - Osteoarthritis of right knee - Arthritis - DDD (degenerative disc disease) - Back pain - Anxiety state - Cervical disc disease - Cervical radiculopathy - Spinal stenosis - Cervical spondylosis with myelopathy - Screening - History of total knee arthroplasty - Knee pain - Trochanteric bursitis - Knee osteoarthritis - Knee joint replacement status - Hip fracture, left (HCC) - Depression - S/P total knee arthroplasty - S/P hip hemiarthroplasty- Left - Anxiety state - Pain in joint, lower leg - Routine general medical examination at a health care facility - Osteoarthritis of knee - Vitamin D deficiency - Dyslipidemia - Community acquired pneumonia - COPD exacerbation (HCC) - Hypoxia - Pneumonia of left lower lobe due to infectious organism - Severe sepsis (HCC) - Other chest pain - Pulmonary nodule - Lung cancer (HCC) - Mediastinal lymphadenopathy - Adenocarcinoma of lung, left (HCC) - Malignant neoplasm of upper lobe, left bronchus or lung ANGY CARR [facility] 2017-10-14 09:27:43 Patient: Ibis hook : 1955 Age: 62 y.o. Date of Service: October 14, 2017 Admit Date: 10/11/2017 Admitting Diagnosis: Malignant neoplasm of upper lobe, left bronchus or lung [C34.12] Primary Care Physician: Mike Ann Jr, MD BP 112/63 Pulse 98 Temp 36.9 C (98.4 F) (Oral) Resp 18 Ht 157.5 cm (5' 2) Wt 74.3 kg (163 lb 12.8 oz) SpO2 97% BMI 29.96 kg/m2 Subjective Interval History:Seen on hospital day 3 C/o drainage leaking around chest tube site. Denies difficulty breathing. Reports productive cough. Objective BP 112/63 Pulse 98 Temp 36.9 C (98.4 F) (Oral) Resp 18 Ht 157.5 cm (5' 2) Wt 74.3 kg (163 lb 12.8 oz) SpO2 97% BMI 29.96 kg/m2 Body mass index is 29.96 kg/(m\S\2). Intake/Output Summary (Last 24 hours) at 10/14/17 0942 Last data filed at 10/14/17 0901 Gross per 24 hour Intake 643.5 ml Output 2070 ml Net -1426.5 ml Temp: 36.9 C (98.4 F) Heart Rate: 98 Resp: 18 BP: 112/63 Intake/Output last 3 shifts: I/O last 3 completed shifts: In: 2669 [P.O.:1495; I.V.:1174] Out: 3600 [Urine:3010; Chest Tube:590] Intake/Output this shift: I/O this shift: In: - Out: 400 [Urine:400] AAOx3 Lungs: Fair air entry CVS exam: Normal sinus/ST ABD: soft, non-tender; bowel sounds normal; no masses, no organomegaly Extremities: peripheral pulses normal, no pedal edema, no clubbing or cyanosis Incision: intact, no drainage CXR: Reviewed see radiology interpertation CT: Air Leak Small intermittent- CT 250ml/24 hours decreasomg Weight 10/13/17 0400 74.3 kg (163 lb 12.8 oz) 10/12/17 0600 73.5 kg (162 lb 0.6 oz) 10/11/17 1039 70.2 kg (154 lb 12.2 oz) 10/10/17 1113 73 kg (161 lb) 09/29/17 0757 73.1 kg (161 lb 3.2 oz) Medications: Scheduled Meds: - atorvastatin 20 mg Oral Daily - cholecalciferol 5,000 Units Oral Daily - escitalopram oxalate 20 mg Oral Daily - heparin (porcine) 5,000 units for SubQ injection 5,000 Units SubCutaneous BID - ipratropium-albuterol 3 mL Nebulization Q4H While Awake - lamoTRIgine 150 mg Oral BID - mirtazapine 45 mg Oral Nightly - montelukast 10 mg Oral Daily evening - nicotine 1 patch TransDermal Q24H - pantoprazole 20 mg Oral QAM AC - polyethylene glycol 17 g Oral Daily - potassium chloride 10 mEq Oral Daily - QUEtiapine 100 mg Oral Nightly - senna-docusate 2 tablet Oral BID - sodium chloride 10 mL IntraCatheter Q8H Continuous Infusions: - fentaNYL 2 mcg/mL-ropivacaine 0.2% in 0.9% sodium chloride 250 mL EPIDURAL 4 mL/hr at 10/12/17 2229 Lab results: Recent Labs 10/12/17 0700 WBC 7.0 HGB 12.0 HCT 39.5 MCV 90 PLT 228 Recent Labs 10/13/17 0545 NA 132* K 4.2 CL 101 BUN 6 CREATININE 0.74 CALCIUM 7.6* GLU 171* No results for input(s): AST, ALT, ALKPHOS, BILITOT, BILIDIR, ALBUMIN in the last 72 hours. Invalid input(s): PROTHROMBIN TIME Diagnostic Findings: Imaging (last 24 hours) Recent Results (from the past 48 hours) XR Chest 1 View 10/14/2017 8:04 AM Impression 1. Increased density within the left lung base may relate to patient rotation, although underlying infiltrate or atelectasis is not excluded.2. Unchanged trace left apical pneumothorax.3. Mild increased pulmonary congestion.I, Dr. Ricco Moctezuma, have personally reviewed the images and the resident's interpretation and have edited the findings. XR Chest 1 View 10/13/2017 8:15 AM Impression 1. Patient is markedly rotated. Increased density throughout the left lung may relate to technique, although consolidation is not excluded.2. Otherwise, no significant interval change from prior exam with trace left apical pneumothorax.I, Ricco Shi M.D., have personally reviewed the images and the resident's report and agree with the interpretation. Assessment and Plan: Non small cell carcinoma SYDNEE - POD 3 left upper lobectomy and LND- pathology pending - CT with unchanged left apical pneumo - very small intermittent air leak- will place on suction and give lasix today. Repeat CXR in AM. - Malignant neoplasm of upper lobe, left bronchus or lung Patient Active Problem List Diagnosis - Hypercholesteremia - Hyperlipidemia - Anxiety attack - Generalized anxiety disorder - Smoker - Essential hypertension - Acute bronchitis - AR (allergic rhinitis) - GERD (gastroesophageal reflux disease) - Osteoarthritis of right knee - Arthritis - DDD (degenerative disc disease) - Back pain - Anxiety state - Cervical disc disease - Cervical radiculopathy - Spinal stenosis - Cervical spondylosis with myelopathy - Screening - History of total knee arthroplasty - Knee pain - Trochanteric bursitis - Knee osteoarthritis - Knee joint replacement status - Hip fracture, left (HCC) - Depression - S/P total knee arthroplasty - S/P hip hemiarthroplasty- Left - Anxiety state - Pain in joint, lower leg - Routine general medical examination at a health care facility - Osteoarthritis of knee - Vitamin D deficiency - Dyslipidemia - Community acquired pneumonia - COPD exacerbation (HCC) - Hypoxia - Pneumonia of left lower lobe due to infectious organism - Severe sepsis (HCC) - Other chest pain - Pulmonary nodule - Lung cancer (HCC) - Mediastinal lymphadenopathy - Adenocarcinoma of lung, left (HCC) - Malignant neoplasm of upper lobe, left bronchus or lung RENEE DIAZ [facility] 2017-10-13 09:58:29 Patient: Ibis hook : 1955 Age: 62 y.o. Date of Service: October 13, 2017 Admit Date: 10/11/2017 Admitting Diagnosis: Malignant neoplasm of upper lobe, left bronchus or lung [C34.12] Primary Care Physician: Mike Ann Jr, MD BP 100/47 (BP Location: Right arm, Patient Position: Sitting) Pulse 102 Temp 36.7 C (98 F) (Oral) Resp 20 Ht 157.5 cm (5' 2) Wt 74.3 kg (163 lb 12.8 oz) SpO2 94% BMI 29.96 kg/m2 Subjective Interval History:Seen on hospital day 2 Up in chair, reports increased productive cough. Pain tolerable with epidural, rate was decreased from 8ml to 4ml yesterday due to hypotension. CT output increased Objective BP 100/47 (BP Location: Right arm, Patient Position: Sitting) Pulse 102 Temp 36.7 C (98 F) (Oral) Resp 20 Ht 157.5 cm (5' 2) Wt 74.3 kg (163 lb 12.8 oz) SpO2 94% BMI 29.96 kg/m2 Body mass index is 29.96 kg/(m\S\2). Intake/Output Summary (Last 24 hours) at 10/13/17 1004 Last data filed at 10/13/17 0900 Gross per 24 hour Intake 4389.6 ml Output 2510 ml Net 1879.6 ml Temp: 36.7 C (98 F) Heart Rate: 102 Resp: 20 BP: 100/47 Intake/Output last 3 shifts: I/O last 3 completed shifts: In: 6417.6 [P.O.:2510; I.V.:3907.6] Out: 2670 [Urine:1905; Chest Tube:765] Intake/Output this shift: I/O this shift: In: 402 [P.O.:240; I.V.:162] Out: 380 [Urine:340; Chest Tube:40] AAOx3 Lungs: Fair air entry CVS exam: Normal sinus ABD: soft, non-tender; bowel sounds normal; no masses, no organomegaly Extremities: peripheral pulses normal, no pedal edema, no clubbing or cyanosis Incision: intact, no drainage CXR: Reviewed see radiology interpertation - no pneumo CT: Air Leak yes- small intermittent - decreased from yesterday CT 644ml/24 hours (prior was 186ml) Weight 10/13/17 0400 74.3 kg (163 lb 12.8 oz) 10/12/17 0600 73.5 kg (162 lb 0.6 oz) 10/11/17 1039 70.2 kg (154 lb 12.2 oz) 10/10/17 1113 73 kg (161 lb) 09/29/17 0757 73.1 kg (161 lb 3.2 oz) Medications: Scheduled Meds: - atorvastatin 20 mg Oral Daily - cholecalciferol 5,000 Units Oral Daily - escitalopram oxalate 20 mg Oral Daily - heparin (porcine) 5,000 units for SubQ injection 5,000 Units SubCutaneous BID - ipratropium-albuterol 3 mL Nebulization Q4H While Awake - lamoTRIgine 150 mg Oral BID - mirtazapine 45 mg Oral Nightly - montelukast 10 mg Oral Daily evening - nicotine 1 patch TransDermal Q24H - pantoprazole 20 mg Oral QAM AC - polyethylene glycol 17 g Oral Daily - potassium chloride 10 mEq Oral Daily - QUEtiapine 100 mg Oral Nightly - senna-docusate 2 tablet Oral BID - sodium chloride 10 mL IntraCatheter Q8H Continuous Infusions: - fentaNYL 2 mcg/mL-ropivacaine 0.2% in 0.9% sodium chloride 250 mL EPIDURAL 4 mL/hr at 10/12/17 2229 Lab results: Recent Labs 10/12/17 0700 WBC 7.0 HGB 12.0 HCT 39.5 MCV 90 PLT 228 Recent Labs 10/13/17 0545 NA 132* K 4.2 CL 101 BUN 6 CREATININE 0.74 CALCIUM 7.6* GLU 171* No results for input(s): AST, ALT, ALKPHOS, BILITOT, BILIDIR, ALBUMIN in the last 72 hours. Invalid input(s): PROTHROMBIN TIME Diagnostic Findings: Imaging (last 24 hours) Recent Results (from the past 48 hours) XR Chest 1 View 10/13/2017 8:15 AM Impression 1. Patient is markedly rotated. Increased density throughout the left lung may relate to technique, although consolidation is not excluded.2. Otherwise, no significant interval change from prior exam with trace left apical pneumothorax.I, Ricco Shi M.D., have personally reviewed the images and the resident's report and agree with the interpretation. XR Chest 1 View 10/12/2017 8:32 AM Impression 1. Since 10/11/2017: No significant change XR Chest 1 View 10/11/2017 4:15 PM Impression 1. Interval placement of left chest tube with trace amount of left pneumothorax.2. Trace left small pleural effusion with overlying atelectasis.3. Expected postsurgical changes of left upper lobectomy.I, Dr Mancia, have personally reviewed the images and the resident's interpretation and agree with the findings above. Assessment and Plan: Non small cell carcinoma SYDNEE - POD 2 left upper lobectomy and LND- pathology pending - CT with small intermittent air leak- but decreased from yesterday. CXR with trace apical pneumo and increased consolidation left lung. Trial on water seal with pulmonary hygiene. - Hypotension- improved - SQ heparin for DVT ppx Malignant neoplasm of upper lobe, left bronchus or lung Patient Active Problem List Diagnosis - Hypercholesteremia - Hyperlipidemia - Anxiety attack - Generalized anxiety disorder - Smoker - Essential hypertension - Acute bronchitis - AR (allergic rhinitis) - GERD (gastroesophageal reflux disease) - Osteoarthritis of right knee - Arthritis - DDD (degenerative disc disease) - Back pain - Anxiety state - Cervical disc disease - Cervical radiculopathy - Spinal stenosis - Cervical spondylosis with myelopathy - Screening - History of total knee arthroplasty - Knee pain - Trochanteric bursitis - Knee osteoarthritis - Knee joint replacement status - Hip fracture, left (HCC) - Depression - S/P total knee arthroplasty - S/P hip hemiarthroplasty- Left - Anxiety state - Pain in joint, lower leg - Routine general medical examination at a health care facility - Osteoarthritis of knee - Vitamin D deficiency - Dyslipidemia - Community acquired pneumonia - COPD exacerbation (HCC) - Hypoxia - Pneumonia of left lower lobe due to infectious organism - Severe sepsis (HCC) - Other chest pain - Pulmonary nodule - Lung cancer (HCC) - Mediastinal lymphadenopathy - Adenocarcinoma of lung, left (HCC) - Malignant neoplasm of upper lobe, left bronchus or lung RENEE DIAZ [facility] 2017-10-12 10:09:18 Patient: Ibis hook : 1955 Age: 62 y.o. Date of Service: October 12, 2017 Admit Date: 10/11/2017 Admitting Diagnosis: Malignant neoplasm of upper lobe, left bronchus or lung [C34.12] Primary Care Physician: Mike Ann Jr, MD BP 131/45 Pulse 89 Temp 36.7 C (98.1 F) (Axillary) Resp 21 Ht 157.5 cm (5' 2) Wt 73.5 kg (162 lb 0.6 oz) SpO2 90% BMI 29.64 kg/m2 Subjective Interval History:Seen on hospital day 1 Up in chair, reports of epidural not working last night, rate was increased to 8ml/hr. Denies SOB Objective BP 131/45 Pulse 89 Temp 36.7 C (98.1 F) (Axillary) Resp 21 Ht 157.5 cm (5' 2) Wt 73.5 kg (162 lb 0.6 oz) SpO2 90% BMI 29.64 kg/m2 Body mass index is 29.64 kg/(m\S\2). Intake/Output Summary (Last 24 hours) at 10/12/17 1019 Last data filed at 10/12/17 0900 Gross per 24 hour Intake 4330 ml Output 805 ml Net 3525 ml Temp: 36.7 C (98.1 F) Heart Rate: 89 Resp: 21 BP: 131/45 Arterial Line BP: 27/18 Intake/Output last 3 shifts: I/O last 3 completed shifts: In: 3724 [P.O.:655; I.V.:3069] Out: 761 [Urine:475; Blood:100; Chest Tube:186] Intake/Output this shift: I/O this shift: In: 606 [P.O.:360; I.V.:246] Out: 44 [Urine:10; Chest Tube:34] AAOx3 Lungs: Fair air entry CVS exam: Normal sinus ABD: soft, non-tender; bowel sounds normal; no masses, no organomegaly Extremities: peripheral pulses normal, no pedal edema, no clubbing or cyanosis Incision: intact, no drainage CXR: Reviewed see radiology interpertation - no pneumo CT: Air Leak yes- small intermittent CT 186ml/24 hours Weight 10/12/17 0600 73.5 kg (162 lb 0.6 oz) 10/11/17 1039 70.2 kg (154 lb 12.2 oz) 10/10/17 1113 73 kg (161 lb) 09/29/17 0757 73.1 kg (161 lb 3.2 oz) Medications: Scheduled Meds: - atorvastatin 20 mg Oral Daily - cholecalciferol 5,000 Units Oral Daily - escitalopram oxalate 20 mg Oral Daily - hydroCHLOROthiazide 25 mg Oral Daily - ipratropium-albuterol 3 mL Nebulization Q4H While Awake - lisinopril 10 mg Oral Daily - mirtazapine 45 mg Oral Nightly - montelukast 10 mg Oral Daily evening - nicotine 1 patch TransDermal Q24H - pantoprazole 20 mg Oral QAM AC - polyethylene glycol 17 g Oral Daily - potassium chloride 10 mEq Oral Daily - prazosin 4 mg Oral Nightly - QUEtiapine 100 mg Oral Nightly - senna-docusate 2 tablet Oral BID - sodium chloride 10 mL IntraCatheter Q8H Continuous Infusions: - dextrose 5 % and sodium chloride 0.45 % with KCl 20 mEq/L 100 mL/hr (10/12/17 6643) - fentaNYL 2 mcg/mL-ropivacaine 0.2% in 0.9% sodium chloride 250 mL EPIDURAL 4 mL/hr at 10/12/17 0925 Lab results: Recent Labs 10/12/17 0700 WBC 7.0 HGB 12.0 HCT 39.5 MCV 90 PLT 228 Recent Labs 10/12/17 0700 NA 138 K 3.9 CL 107 BUN 8 CREATININE 0.81 CALCIUM 7.5* GLU 141* No results for input(s): AST, ALT, ALKPHOS, BILITOT, BILIDIR, ALBUMIN in the last 72 hours. Invalid input(s): PROTHROMBIN TIME Diagnostic Findings: Imaging (last 24 hours) Recent Results (from the past 48 hours) XR Chest 1 View 10/12/2017 8:32 AM Impression 1. Since 10/11/2017: No significant change XR Chest 1 View 10/11/2017 4:15 PM Impression 1. Interval placement of left chest tube with trace amount of left pneumothorax.2. Trace left small pleural effusion with overlying atelectasis.3. Expected postsurgical changes of left upper lobectomy.I, Dr Mancia, have personally reviewed the images and the resident's interpretation and agree with the findings above. Assessment and Plan: Non small cell carcinoma SYDNEE - POD 1 left upper lobectomy and LND - CT with intermittent air leak- continue to suction - CXR this AM with improved SQ emphysema and trace pneumo - Hypotension- likely related to multiple medications including epidural- stop lisinopril, HCTZ. Decrease epidural rate to half. - increase mobility - SQ heparin for DVT ppx Malignant neoplasm of upper lobe, left bronchus or lung Patient Active Problem List Diagnosis - Hypercholesteremia - Hyperlipidemia - Anxiety attack - Generalized anxiety disorder - Smoker - Essential hypertension - Acute bronchitis - AR (allergic rhinitis) - GERD (gastroesophageal reflux disease) - Osteoarthritis of right knee - Arthritis - DDD (degenerative disc disease) - Back pain - Anxiety state - Cervical disc disease - Cervical radiculopathy - Spinal stenosis - Cervical spondylosis with myelopathy - Screening - History of total knee arthroplasty - Knee pain - Trochanteric bursitis - Knee osteoarthritis - Knee joint replacement status - Hip fracture, left (HCC) - Depression - S/P total knee arthroplasty - S/P hip hemiarthroplasty- Left - Anxiety state - Pain in joint, lower leg - Routine general medical examination at a health care facility - Osteoarthritis of knee - Vitamin D deficiency - Dyslipidemia - Community acquired pneumonia - COPD exacerbation (HCC) - Hypoxia - Pneumonia of left lower lobe due to infectious organism - Severe sepsis (HCC) - Other chest pain - Pulmonary nodule - Lung cancer (HCC) - Mediastinal lymphadenopathy - Adenocarcinoma of lung, left (HCC) - Malignant neoplasm of upper lobe, left bronchus or lung ANISHA RENEE [facility] 2017-10-12 09:30:00 Philippe Carr [employer] and Jannette amandagenia Diaz [employer] notified that pt's BP 70's/30's-40's. Orders received to cut Epidural rate in half-turned down from 8ml to 4ml/hr continuous. Continue to monitor. LAY KRISHNA [facility] 2017-10-11 18:22:25 Respiratory Therapy Consult Assessment Primary Prob:LULobectomy-CA Smoking Hx: History Smoking Status - Current Every Day Smoker - Packs/day: 0.50 - Years: 44.00 - Types: Cigarettes Smokeless Tobacco - Never Used Pulmonary Hx: COPD CXR/CT: 10/11 FINDINGS: Patient is status post left upper lobectomy with expected postsurgical changes. There is an apically oriented chest tube with trace amount of left apical pneumothorax. There are subcutaneous emphysematous changes. Surgical clip was projecting over the mediastinum. Stable cardiomediastinal silhouette. There is blunting of left costophrenic angle. There are bilateral mild interstitial prominence, predominantly seen in the perihilar region. Stable osseous structures. IMPRESSION 1. Interval placement of left chest tube with trace amount of left pneumothorax. 2. Trace left small pleural effusion with overlying atelectasis. 3. Expected postsurgical changes of left upper lobectomy. Home O2: Home regimen: QID duoneb ARIEL: Assessment: HR- 78 RR- 19 SpO2- 100% FiO2- O2 Flow Rate-3L Breath Sounds- coarse/rhonchi, some faint wheezing possible Mobility- directly post surgery, will be mobile Orientation- oriented Plan: continue home reg QID duoneb, encourage IS, monitor CO2 ABEL EDDY [facility] 2017-10-11 12:16:00 H&P Completed on 09/28/2017 by Angy Moore MD The H&P was reviewed, verified, accepted, and authenticated. The patient was examined and no change has occurred in the patient's condition since the H&P was done. The operative procedure will take plan as planned. Electronically signed by: Angy Moore, 10/11/2017 12:16 PM ANGY MOORE [facility] 2017-10-05 11:06:59 Patient called, sal antoine if it is ok for her family from [place] to come with her to surgery on 10/11/17. She stated it is 5 family members, and it is important to her. I explained that she can bring whomever she wishes. However, I did inform her that the rooms are small, so it will be crowded. She verbalized understanding and no other issues at this time. She is encouraged to call with any other questions/concerns. NU ROSS [facility] 2017-09-29 07:40:00 OFFICE VISIT CHIEF COMPLAINT Neck Pain SUBJECTIVE Ibis Tay is a 62 y.o. female who presents for follow-up of Neck Pain with diagnosis of: 1. cervical stenosis with radiculopathy. 2. 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 Headaches With last encounter we rotated back to the percocet 10/325 0.5-1 po tid and she notes the pain is not as well controlled as wehen she was taking 4/day. She states that with the recent severe weather she has been having a flare up of her arthritis. She states that the shoulder and joints are hurting the most. She denies adverse side effects noting no nausea sedation somnolence or altered mentation. She states that her mobility is decreased and her blood pressure is up due to the pain. She notes the recent cervical WAQAR in SEP 2016 noting >50% relief lasting 3mos and would like to repeat her Cervical WAQAR this fall. Patient currently is on Percocet 10/325 0.5-1 po tid states the medication is not effective giving the average pain rating of: 10/10 and feels that the pain is not manageable. New or changing adverse side effects:none New or changing pain complaints:none Other concerns: none ROS Constitutional: denies dizziness, sedation, or somnolence Psychological: denies altered mentation or euphoria GI: deniesconstipation or diarrhea Musc: denies acute change in numbness, weakness, or tingling of extemities MEDICATIONS Current Outpatient Prescriptions Medication Sig Dispense Refill - alendronate (FOSAMAX) 70 MG tablet Take on empty stomach once weekly sitting upright for full hour after taking with big glass of water. No other meds or food for 1 hour 4 tablet 11 - ALPRAZolam (XANAX) 1 MG tablet Take 1 tablet (1 mg total) by mouth 4 (four) times a day as needed. FOR ANXIETY 120 tablet 3 - atorvastatin (LIPITOR) 20 MG tablet TAKE ONE TABLET BY MOUTH DAILY 90 tablet 0 - camphor-menthol (SARNA ANTI-ITCH) lotion Apply topically as needed for itching. 222 mL 0 - cholecalciferol (VITAMIN D3) 5,000 unit Tablet Take 1 tablet (5,000 Units total) by mouth once daily. 30 tablet 11 - diaper,brief,adult,disposable Misc 1 application by Miscellaneous route 2 (two) times a day. 96 each 5 - escitalopram oxalate (LEXAPRO) 20 MG tablet Take 1 tablet (20 mg total) by mouth once daily. 90 tablet 1 - FLOVENT DISKUS 250 mcg/actuation Disk with Device INHALE ONE PUFF BY MOUTH TWICE A DAY, RINSE MOUTH AFTER USE 60 each 5 - food supplemt, lactose-reduced (ENSURE) Liquid Drink 2 bottles per day. Patient requests strawberry. 83310 mL PRN - guaiFENesin 200 mg tablet TAKE THREE TABLETS BY MOUTH TWICE A DAY FOR 10 DAYS 60 tablet 0 - hydroCHLOROthiazide (HYDRODIURIL) 25 MG tablet Take 1 tablet (25 mg total) by mouth once daily. 30 tablet 5 - ipratropium-albuterol (DUO-NEB) 0.5-2.5 mg/3 mL nebulizer Inhale 3 mL into the lungs 4 (four) times a day. 360 vial 3 - Lactobacillus acidoph-pectin (ACIDOPHILUS-PECTIN) 75 million cell -100 mg Capsule Take 1 capsule by mouth 2 (two) times a day. 60 capsule 0 - lamoTRIgine (LAMICTAL) 150 MG tablet Take 1 tablet (150 mg total) by mouth 2 (two) times a day. 0900 and 1500 60 tablet 3 - lisinopril (PRINIVIL,ZESTRIL) 10 MG tablet Take 1 tablet (10 mg total) by mouth once daily. 90 tablet 2 - mirtazapine (REMERON) 45 MG tablet Take 1 tablet (45 mg total) by mouth daily every night. 90 tablet 1 - montelukast (SINGULAIR) 10 mg tablet TAKE ONE TABLET BY MOUTH EVERY EVENING 30 tablet 4 - nicotine (NICODERM CQ) 21 mg/[address] 1 patch onto the skin every 24 (twenty-four) hours. 28 patch 1 - omeprazole (PRILOSEC) 40 MG capsule TAKE ONE CAPSULE BY MOUTH DAILY 30 capsule 11 - ondansetron (ZOFRAN ODT) 4 MG disintegrating tablet Take 1 tablet (4 mg total) by mouth every 8 (eight) hours as needed for nausea / vomiting. 12 tablet 0 - oxyCODONE-acetaminophen (PERCOCET) 10-325 mg tablet Take 0.5-1 tablets by mouth 3 (three) times a day as needed for pain. Do Not Fill Prior to START Date To Last 30days. No early refills Max Daily Amount: 3 tablets 90 tablet 0 - oxyCODONE-acetaminophen (PERCOCET) 10-325 mg tablet Take 0.5-1 tablets by mouth 3 (three) times a day as needed for pain. Do Not Fill Prior to START Date To Last 30days. No early refills Max Daily Amount: 3 tablets 90 tablet 0 - oxyCODONE-acetaminophen (PERCOCET) 5-325 mg tablet Take 1 tablet by mouth once every 4 (four) hours as needed for pain for up to 20 doses. Max Daily Amount: 6 tablets 20 tablet 0 - potassium chloride (KLOR-CON) 10 MEQ CR tablet Take 2 tablets (20 mEq total) by mouth 2 (two) times a day. 120 tablet 0 - prazosin (MINIPRESS) 2 MG capsule Take 2 capsules (4 mg total) by mouth daily every night. 180 capsule 1 - predniSONE (DELTASONE) 20 MG tablet Take one pill twice daily am and noon for 5 days 10 tablet 0 - PROAIR HFA 90 mcg/actuation inhaler INHALE TWO PUFFS BY MOUTH FOUR TIMES A DAY 8.5 each 5 - QUEtiapine (SEROQUEL) 200 MG tablet Take one tab at night (Patient taking differently: 100 mg daily every night. Take one tab at night ) 30 tablet 3 - QUEtiapine (SEROQUEL) 50 MG tablet Take one tab in the morning and one tab in the afternoon. 30 tablet 3 - SENNALAX-S 8.6-50 mg TAKE TWO TABLETS BY MOUTH TWICE A DAY 120 tablet 10 - underpads Pad Use as needed for incontinence 300 each 10 No current facility-administered medications for this visit. ALLERGIES Allergies Allergen Reactions - Penicillins Anaphylaxis - Gabapentin Other (See Comments) severe fatigue - Sulfa (Sulfonamide Antibiotics) Other (See Comments) Blisters inside and outside of mouth. - Wellbutrin [Bupropion Hcl] Other (See Comments) Body numbness and tingling PHYSICAL EXAM Vital Signs: BP 153/76 (BP Location: Right arm) Pulse 90 Resp 16 Wt 73.1 kg (161 lb 3.2 oz) BMI 29.01 kg/m2 Constitutional: Well nourished, well groomed, NAD. CARDIAC: Regular Rate LUNGS: Breathing nonlabored, no wheezing Neurologic: Alert & oriented x 3, normal gait, no focal deficits noted. Psychiatric: Affect normal, judgment normal, mood normal. Other Affected BA/OS: Neck pain with extension, pain radiating To LUE with parasthesias. ASSESSMENT AND PLAN Problem List Items Addressed This Visit None 2. LEFT Hip fracture 3. Low back pain Requested Prescriptions No prescriptions requested or ordered in this encounter PLAN: 1. cervical stenosis with radiculopathy. Worsening. I will continue her on oxycodone 10/325 TID and will schedule her for repeat cervical WAQAR. When she is ready 2. OA of bilateral Hip with h/o partial hip replacement on the Left : Stable 3. Headaches - Stable complaint and may be secondary to her cervicalgia. 4. Opiate induced constipation: She has had increasing difficulty with constipation and did have to go to the ER. She has tried and failed diet modification, OTC stool softener without significant improvement. The patient indicates understanding of these issues and agrees with the plan. I reviewed the patient's medical information and medical history. I have reviewed the past medical, family, and social history sections including the medications and allergies listed in the above medical record. Electronically signed by: Isaías Cardenas, 09/29/2017 7:59 AM ISAÍAS CARDENAS [facility] 2017-09-23 12:53:04 I called patient to verify her daughter is taking her to her appointment with Dr Moore. Transportation is not needed. She denied any other needs at this time. NU ROSS [facility] 2017-09-21 13:05:07 Patient called to tank Moore's name and location for her appointment, as she lost her information. I provided her with that information, and verified that she knew of the appropriate day and time. Patient denied any other needs at this time. She was encouraged to call back with any other questions/concerns. CODY NU CASTRO 2017-09-16 11:47:22 Patient called to tank chin where appointment with Dr Moore will be on 09/28/17. Address on [facility] provided. Patient denied any other needs at this time. I encouraged her to call with any other questions/concerns. NU ROSS [facility] 2017-09-08 16:18:58 Cancelled patient's smoking cessation class with pulmonary on 09/14/17 per patient request. NU ROSS [facility] 2017-09-08 14:51:24 I visited with jose e haynes in medical oncology appointment. Pulmonary appointment and PFT's on 09/30/17 cancelled per patient request. Patient scheduled to see Dr Moore for surgical consult on 09/28/17 at 1630, per Dr Oh. Patient notified of appointment and that RX was sent to pharmacy for nicotine patches and lozenges. She was instructed that she needed to contact her pharmacy regarding required paperwork to get RX covered by Medicaid. Patient verbalized understanding of all of the above. She denied any other needs at this time. I encouraged her to call with any other questions/concerns. CODY NU CASTRO 2017-09-05 13:20:14 Returned call to liset diane. She wished to verify upcoming appointments. I confirmed her appointments with Dr Cardenas, her PFT's and appointment to follow at [facility], and her HOC appointment. Patient denied any other needs at this time. I encouraged her to call back with any other questions/concerns. NU ROSS [facility] 2017-09-01 13:28:26 Patient returned emelyn thornton Scheduled HOC follow up for 09/08/17 at 1045. Patient verbalized understanding and no other needs at this time. I encouraged her to call with any other questions/concerns. NU ROSS [facility] 2017-09-01 13:04:46 Attempted to contact patient to schedule follow up with HOC. left requesting a call back. CODY NU CASTRO 2017-08-30 13:13:36 H&P Update Ibis Tay Primary Care Physician: Mike Ann Jr, MD : 1955 Age: 62 y.o. Date of Service: 02/13/18 Diagnosis: Adenocarcinoma Update 1. The H&P was completed on 08/26/[address] Fonseca. 2. The H&P was reviewed. 3. Ibis Tay was examined and no change has occurred in the their condition since the H&P was completed. Thomas Villagran Pulmonary/Critical Care Fellow Pager: [phone] Attending NABOR Garcia [facility] 2017-08-26 14:30:00 [facility] Pulmonary Medici ne Outpatient Follow-up Patient: Ibis Tay : 1955 Age: 62 y.o. Date of Service: August 26, 2017 Primary Care Physician: Mike Ann Jr, MD Assessment: 1. Chronic obstructive pulmonary disease, unspecified COPD type (HCC) 2. Cigarette nicotine dependence without complication 3. Adenocarcinoma of lung, left (HCC) Recommendations: - EBUS scheduled for 08/30/17 at [address] Fonseca- Dr. Fonseca to make final arrangements - Smoking cessation consult placed as patient is wanting to quit but needs additional help - PFT's prior to next appointment as last set was in October 2016 - Continue oxygen at night - Encouraged taking DuoNebs QID and continue on Flovent and albuterol as needed - Follow-up in 6 weeks - we will consider changing COPD medications if needed at that time Subjective: History of Present Illness 62 y.o. year old female who presents to clinic for hospital follow-up. Patient was hospitalized in June 2017 and was instructed to follow up with a PET scan for a suspicious left upper lobe nodule. PET scan was performed and CT guided biopsy was completed. 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 She had seen Dr. Oh with oncology and is awaiting next step in plan of care. Dr Oh would like EBUS performed for staging. Patient currently takes Flovent 1 puff twice daily, duo nebs twice daily, and albuterol as needed. Patient saw her PCP last week and was placed on antibiotics and steroids for COPD exacerbation. Patient states her cough has significantly improved. Denies chest pain, wheezing, or increased shortness of breath. Patient wears 2 L oxygen at night and only as needed during the day. She does not have her oxygen with her in clinic today. Patient continues to smoke daily. She was up to 2 packs per day but has decreased down to 5 cigarettes per day, but will often increase this number with increased stress. Review of Systems Constitutional: Denies fever or chills Eyes: Denies change in visual acuity HENT: Denies nasal congestion or sore throat Respiratory: Denies increase in cough or shortness of breath Cardiovascular: Denies chest pain or edema GI: Denies abdominal pain, nausea, vomiting, bloody stools or diarrhea : Denies dysuria Musculoskeletal: Denies back pain or joint pain Integument: Denies rash Neurologic: Positive for headache Endocrine: Denies polyuria or polydipsia Lymphatic: Denies swollen glands Psychiatric: Positive for depression and anxiety CAT/ACT Score 20 Medications Outpatient Encounter Prescriptions as of 08/26/2017 Medication Sig Dispense Refill - ACIDOPHILUS-PECTIN 75 million cell -100 mg Capsule TAKE ONE CAPSULE BY MOUTH TWICE A DAY 60 capsule 0 - alendronate (FOSAMAX) 70 MG tablet Take on empty stomach once weekly sitting upright for full hour after taking with big glass of water. No other meds or food for 1 hour 4 tablet 11 - ALPRAZolam (XANAX) 1 MG tablet Take 1 tablet (1 mg total) by mouth 4 (four) times a day as needed. FOR ANXIETY 120 tablet 3 - atorvastatin (LIPITOR) 20 MG tablet Take 1 tablet (20 mg total) by mouth once daily. 90 tablet 0 - camphor-menthol (SARNA ANTI-ITCH) lotion Apply topically as needed for itching. 222 mL 0 - cholecalciferol (VITAMIN D3) 5,000 unit Tablet Take 1 tablet (5,000 Units total) by mouth once daily. 30 tablet 11 - diaper,brief,adult,disposable Misc 1 application by Miscellaneous route 2 (two) times a day. 96 each 5 - doxycycline (VIBRAMYCIN) 100 MG capsule Take 1 capsule (100 mg total) by mouth 2 (two) times a day for 10 days. 20 capsule 0 - escitalopram oxalate (LEXAPRO) 20 MG tablet Take 1 tablet (20 mg total) by mouth once daily. 90 tablet 1 - FLOVENT DISKUS 250 mcg/actuation Disk with Device INHALE ONE PUFF BY MOUTH TWICE A DAY, RINSE MOUTH AFTER USE 60 each 5 - fluticasone (FLONASE) 50 mcg/actuation nasal spray 2 sprays by Each Nostril route once daily. 16 g 12 - food supplemt, lactose-reduced (ENSURE) Liquid Drink 2 bottles per day. Patient requests strawberry. 99556 mL PRN - hydroCHLOROthiazide (HYDRODIURIL) 25 MG tablet Take 1 tablet (25 mg total) by mouth once daily. 30 tablet 5 - ipratropium-albuterol (DUO-NEB) 0.5-2.5 mg/3 mL nebulizer Inhale 3 mL into the lungs 4 (four) times a day. 360 vial 3 - lamoTRIgine (LAMICTAL) 150 MG tablet Take 1 tablet (150 mg total) by mouth 2 (two) times a day. 0900 and 1500 60 tablet 3 - lisinopril (PRINIVIL,ZESTRIL) 10 MG tablet Take 1 tablet (10 mg total) by mouth once daily. 90 tablet 2 - mirtazapine (REMERON) 45 MG tablet Take 1 tablet (45 mg total) by mouth daily every night. 90 tablet 1 - montelukast (SINGULAIR) 10 mg tablet TAKE ONE TABLET BY MOUTH EVERY EVENING 30 tablet 4 - omeprazole (PRILOSEC) 40 MG capsule TAKE ONE CAPSULE BY MOUTH DAILY 30 capsule 11 - ondansetron (ZOFRAN ODT) 4 MG disintegrating tablet Take 1 tablet (4 mg total) by mouth every 8 (eight) hours as needed for nausea / vomiting. 12 tablet 0 - [START ON 08/31/2017] oxyCODONE-acetaminophen (PERCOCET) 10-325 mg tablet Take 0.5-1 tablets by mouth 3 (three) times a day as needed for pain. Do Not Fill Prior to START Date To Last 30days. No early refills Max Daily Amount: 3 tablets 90 tablet 0 - potassium chloride (KLOR-CON) 10 MEQ CR tablet Take 2 tablets (20 mEq total) by mouth 2 (two) times a day. 120 tablet 0 - prazosin (MINIPRESS) 2 MG capsule Take 2 capsules (4 mg total) by mouth daily every night. 180 capsule 1 - predniSONE (DELTASONE) 20 MG tablet Take one pill twice daily am and noon for 5 days 10 tablet 0 - PROAIR HFA 90 mcg/actuation inhaler INHALE TWO PUFFS BY MOUTH FOUR TIMES A DAY 8.5 each 5 - QUEtiapine (SEROQUEL) 200 MG tablet Take one tab at night (Patient taking differently: 100 mg daily every night. Take one tab at night ) 30 tablet 3 - QUEtiapine (SEROQUEL) 50 MG tablet Take one tab in the morning and one tab in the afternoon. 30 tablet 3 - underpads Pad Use as needed for incontinence 300 each 10 - guaiFENesin 200 mg tablet TAKE THREE TABLETS BY MOUTH TWICE A DAY FOR 10 DAYS (Patient not taking: Reported on 08/26/2017) 60 tablet 0 - oxyCODONE-acetaminophen (PERCOCET) 10-325 mg tablet Take 0.5-1 tablets by mouth 3 (three) times a day as needed for pain. Do Not Fill Prior to START Date To Last 30days. No early refills Max Daily Amount: 3 tablets (Patient not taking: Reported on 08/26/2017 ) 90 tablet 0 - oxyCODONE-acetaminophen (PERCOCET) 5-325 mg tablet Take 1 tablet by mouth once every 4 (four) hours as needed for pain for up to 20 doses. Max Daily Amount: 6 tablets (Patient not taking: Reported on 08/26/2017 ) 20 tablet 0 - SENNALAX-S 8.6-50 mg TAKE TWO TABLETS BY MOUTH TWICE A DAY 120 tablet 10 No facility-administered encounter medications on file as of 08/26/2017. Allergies Allergies Allergen Reactions - Penicillins Anaphylaxis - Gabapentin Other (See Comments) severe fatigue - Sulfa (Sulfonamide Antibiotics) Other (See Comments) Blisters inside and outside of mouth. - Wellbutrin [Bupropion Hcl] Other (See Comments) Body numbness and tingling Immunizations Immunization History Administered Date(s) Administered - Influenza TIV (IM) 03/24/2010, 05/01/2012 - Influenza Three-TIV Non-Preservative Free 3+ Years IM 04/17/2014 - Pneumococcal Conjugate (Prevnar) 13-Valent 06/15/2016 - Pneumococcal Polysaccharide (Pneumovax) 03/18/2009, 04/18/2014 - Td Preservative Free 7+ Years IM 01/29/2013 - Tdap 04/15/2009, 12/29/2016 Objective: Vitals BP 142/84 (BP Location: Left arm, Patient Position: Sitting) Pulse 88 Temp 36.2 C (97.1 F) (Temporal Artery (forehead)) Resp 18 Ht 157.5 cm (5' 2) Wt 70.9 kg (156 lb 6.4 oz) SpO2 96% BMI 28.61 kg/m2 Body mass index is 28.61 kg/(m\S\2). Physical Exam Constitutional: Well developed, well nourished, no acute distress, non-toxic appearance Eyes: PERRL, conjunctiva normal HENT: Atraumatic, external ears normal, nose normal Respiratory: No respiratory distress, normal breath sounds, no rales, no wheezing Cardiovascular: Normal rate, normal rhythm, no murmurs, no gallops, no rubs GI: Soft, nondistended, normal bowel sounds, nontender Musculoskeletal: No edema Integument: Well hydrated, no rash Neurologic: Alert & oriented x 3, CN 2-12 normal, normal motor function, normal sensory function, no focal deficits noted Psychiatric: Speech and behavior appropriate Chest Imaging images reviewed CTA reviewed from 08/06/17: IMPRESSION 1. No evidence for pulmonary embolism. 2. Changes of bilateral areas of interstitial infiltrates. Findings may represent some component of interstitial pneumonitis. 3. Enlarging pleural-based nodule within the left upper lobe now measuring 1.5 cm. Findings are suspicious for malignancy. Pulmonary Function Tests/ Six Minute Walk no new Serologies no new Immunizations up to date on pneumonia vaccination I, JESSICA PECK acted as a scribe for Dr. Fonseca for the HPI, Exam, and Assessment and Plan portions of the service JESSICA PECK APRN 08/26/2017 JESSICA PECK APRN-[facility] Pulmonary/Critical Care/Sleep Medicine Office: [phone] 08/26/2017 3:28 PM Pulmonary Staff: I personally performed the HPI, the Exam, and formulated the assessment and plan as scribed by Jessica Peck APRN. I have reviewed the documentation scribed and it is an accurate and complete representation of my words and actions during the visit. Patient overall doing well since discharge and had a transthoracic needle aspiration of the left upper lobe nodule identified to be papillary adenocarcinoma. We are being asked to sample her mediastinum in order to identify if there is been any metastasis and to stage her disease. We will proceed with bronchoscopy on 08/30/2017 and see her back in clinic in approximately 6 weeks to further try and optimize her inhaler regimen. Risks and benefits were described and explained to the patient for details and all questions were answered. Benson Fonseca MD [facility] Division of Pulmonary, Critical Care, and Sleep Medicine [facility] [phone] 08/30/2017 BENSON FONSECA [facility] 2017-08-26 09:37:19 [facility] called photovoltaic fabrication technician ONN. I explained to her that she should not anticipate a brochoscopy or EBUS today, as she has not been instructed to be NPO prior to appointment. Patient was concerned that her appointment could last several hours, if procedures took place today. I told her that I anticipated they would be scheduled on a later date. She stated that her transportation has an obligation this evening. I explained that I could provide her transportation for any of her appointments revolving around this oncology care. Patient verbalized understanding. She was instructed to call with any questions/concerns, or transportation needs. She denied any otherneeds at this time. NU ROSS [facility] 2017-08-26 08:33:58 Notified Nu kebede, pt's ONN, regarding this ONN's photovoltaic fabrication technician conversation with pt last night. YADAV KAYLAN [facility] 2017-08-25 23:59:59 Late Entry from : Received message photovoltaic fabrication technician phone from pt after hours for BEATRICE Garcia. Per message, pt has some questions about tomorrow when she goes to [facility]. Returned phone call to pt. Pt has appt tomorrow at 2:[address] Fonseca. Told pt that he's a lung doctor. Pt wondering what will occur tomorrow at appt because she has a friend giving her a ride. This ONN will have BEATRICE Judge call her first thing tomorrow about that. KAYLAN YADAV [facility] 2017-08-24 23:59:59 I met with patient, Jordan and her sister in medical oncology consultation. I introduced myself and explained my role as the oncology nurse navigator. I provided her with a brochure and my contact information. Patient has an appointment to see Dr Fonseca at [facility] 08/26/17 at 1430. I will watch for notes and schedule follow up with HOC accordingly. Patient denied any needs at this time. I encouraged her to call with any questions/concerns. NU ROSS [facility] 2017-08-18 10:00:00 Patient, Ibis anderson s consent to Mike Ann Jr., MD's use of Augmedix at today's visit. K MONTANEZ [facility] 2017-08-18 10:00:00 Subjective: Patient ID: Ibis Tay is a 62 y.o. female. Chief Complaint Patient presents with - Results Go over CT scan results - Headache and congestion x2 days HPI The patient is here today for a followup of recent PET scan . 2017 which showed interval increase in size and metabolic activity of left upper lobe pulmonary nodule which was subsequently biopsied on August 15, 2017 with findings of papillary adenocarcinoma of the lung. The patient has not seen oncologist yet. She had CT chest on 08/06/2017 which revealed no evidence for pulmonary embolism/ Changes of bilateral areas of interstitial infiltrates/pneumonitis and Enlarging pleural-based nodule within the left upper lobe now measuring 1.5 cm. Findings are suspicious for malignancy. The patient complains of green-yellow productive cough, rhinorrhea, chest congestion, and headache. She describes her headache as throbbing in nature. The patient is smoker and she smokes less than 5 cigarettes daily, patient is been advised to stop is finding it difficult to do so. patient also has had recurrent frontal headache throbbing last several days this is not the worst headache of her life she denies any unilateral numbness tingling weakness difficulty with speech or history of stroke patient typically gets good relief with Toradol. Patient is been under considerable stress with her in the hospital and her ongoing evaluation of her lung mass. Patient had a CT scan head without contrast January 09, 2014 demonstrating no acute intracranial abnormality Review of Systems General : No weight gain or loss, no loss of appetite no fever, no chills, no fatigue, no night sweats Skin: No rashes, no skin discolorations Head: Positive headaches,no dizziness, no masses, no seizures Eyes: No visual changes, no eye pain Ears: No tinnitus, no vertigo, no hearing loss Nose: No nosebleeds, Positive for discharge, no sinus disease Mouth and throat: Denies dental disease, no hoarseness, no throat pain Respiratory: Positive for cough, no shortness or breath, Positive for sputum production, Positive for chest congestion Cardiovascular: No chest pain, no orthopnea, no paroxysmal nocturnal dyspnea, or dyspnea on exertion, no claudication, no edema, no valvular disease Gastrointestinal: No dysphagia, no abdominal pain, no nausea no vomiting, no hematemesis, no diarrhea, no constipation, no melena, no hematochezia Genitourinary: No dysuria no frequency no hesitancy, no hematuria, no discharge Musculoskeletal: No joint pain or swelling, no arthritis, no myalgias Neuropsychiatric: No weakness, no seizures, no memory changes, no depression Objective: BP 138/84 Pulse 87 Temp 36.4 C (97.6 F) (Temporal Artery (forehead)) Ht 157.5 cm (5' 2) Wt 71.8 kg (158 lb 6 oz) SpO2 92% BMI 28.97 kg/m2 Physical Exam Nursing note and vitals reviewed. Constitutional: . She appears well-developed and well-nourished. No distress. HENT: Ear exam tympanic membranes are bright bilaterally, on nose exam turbinates no redness, no discharge, no inflammation, pharynx no erythema, no evidence of drainage Head: Normocephalic and atraumatic. Right Ear: External ear normal. Left Ear: External ear normal. Mouth/Throat: No oropharyngeal exudate. She has upper denture. Neck: No JVD present. No tracheal deviation present. No thyromegaly present. Cardiovascular: Normal rate, regular rhythm, normal heart sounds and intact distal pulses. Exam reveals no gallop and no friction rub. No murmur heard. Pulmonary/Chest: Effort normal. No respiratory distress. She has no wheezes. She has no rales. She exhibits no tenderness. Abdominal: Soft. She exhibits no distension and no mass. There is no tenderness to palpation. There is no rebound and no guarding. Musculoskeletal: Normal range of motion. She exhibits no edema and no tenderness. Skin: Skin is warm. No rash noted. She is not diaphoretic. No erythema. No pallor. She has healing laceration on the right forearm of 5-6 cm. Assessment/Plan: Problem List Items Addressed This Visit None Visit Diagnoses Acute asthmatic bronchitis - Primary Relevant Medications doxycycline (VIBRAMYCIN) 100 MG capsule predniSONE (DELTASONE) 20 MG tablet Intractable episodic headache, unspecified headache type Relevant Medications ketorolac (TORADOL) injection 60 mg (Start on 08/18/2017 10:45 AM) Malignant neoplasm of lung, unspecified laterality, unspecified part of lung (HCC) 1. Acute asthmatic bronchitis The patient is advised to start taking doxycycline 100 mg 1 capsule two times daily with meals. She is advised to take prednisone 20 mg, Take one pill twice daily for 5 days then one pill daily for two days then one half pill daily for 2 days. If she has worsening of symptoms, then she is advised to call the clinic. - doxycycline (VIBRAMYCIN) 100 MG capsule; Take 1 capsule (100 mg total) by mouth 2 (two) times a day for 10 days. Dispense: 20 capsule; Refill: 0 - predniSONE (DELTASONE) 20 MG tablet; Take one pill twice daily am and noon for 5 days Dispense: 10 tablet; Refill: 0 2. Intractable episodic headache, unspecified headache type The patient received toradol 60 mg injection in the clinic today. - ketorolac (TORADOL) injection 60 mg; Inject 2 mL (60 mg total) into the muscle once. 3. Malignant neoplasm of lung, unspecified laterality, unspecified part of lung (HCC) I referred the patient to Dr. Oh/Dr. Philippe/or Dr. Tovar, oncologist for further evaluation and treatment. I, Zak Patel, am scribing for and in the presence of Mike Ann Jr., MD. . I have read and agree with the documentation that has been completed regarding this visit and attest, that it is an accurate record of both my words and actions during the visit. . MIKE ANN JR, [facility] 2017-08-15 10:24:08 H&P Completed on 07-[address] Simon Ann The H&P was reviewed. The patient was examined and no change has occurred in the patient's condition since the H&P was done. APOLLO MORGAN GLORIA 2017-08-12 15:49:05 Pt was in the office today for ED follow up. She states that her pneumonia is improving, but she still doesn't feel great. She came to the office for that reason. Deferred her to Dr. Ann. FAITH SANTANA [facility] 2017-08-12 14:30:00 Patient, Ibis anderson s consent to Mike Ann Jr., MD's use of Augmedix at today's visit. BAH [facility] 2017-08-12 14:30:00 Pre-Operative History and Physical HPI: Pre-Op Evaluation: Ibis Tay is a 62 y.o. female who presents to the office today for a preoperative consultation at the request of surgeon who plans on performing lung biopsy on 08/16/2017. She went to ER on 08/06/2017 for pneumonitis for which she was prescribed Levaquin 750 mg and codeine-guaiFENesin. She has not completed the course of antibiotics and steroid course but has improved no fever no chills no increased sob. She complains of dry cough and headaches. Her cough worsens at night. Patient had ct angiogram on 08/06/2017 with findings of Enlarging pleural-based nodule within the left upper lobe now measuring 1.5 cm. Findings are suspicious for malignancy The patient is smoker and she smokes half a pack daily. She is trying to quit smoking. The patient states that her dog scratched right arm about 3-4 days ago. She complains of right forearm pain secondary to scratch. The patient has some concerns regarding memory changes. Code Status: Full code Allergies: Penicillins; Gabapentin; Sulfa (sulfonamide antibiotics); and Wellbutrin [bupropion hcl] Medications: Current Outpatient Prescriptions on File Prior to Visit Medication Sig Dispense Refill - ACIDOPHILUS-PECTIN 75 million cell -100 mg Capsule TAKE ONE CAPSULE BY MOUTH TWICE A DAY 60 capsule 0 - alendronate (FOSAMAX) 70 MG tablet Take on empty stomach once weekly sitting upright for full hour after taking with big glass of water. No other meds or food for 1 hour 4 tablet 11 - ALPRAZolam (XANAX) 1 MG tablet Take 1 tablet (1 mg total) by mouth 4 (four) times a day as needed. FOR ANXIETY 120 tablet 3 - atorvastatin (LIPITOR) 20 MG tablet Take 1 tablet (20 mg total) by mouth once daily. 90 tablet 0 - camphor-menthol (SARNA ANTI-ITCH) lotion Apply topically as needed for itching. 222 mL 0 - cholecalciferol (VITAMIN D3) 5,000 unit Tablet Take 1 tablet (5,000 Units total) by mouth once daily. 30 tablet 11 - codeine-guaiFENesin (ROBITUSSIN AC) 10-100 mg/5 mL oral liquid Take 10 mL by mouth 3 (three) times a day as needed for cough for up to [address] after taking. It may make you tired. Max Daily Amount: 30 mL 150 mL 0 - diaper,brief,adult,disposable Misc 1 application by Miscellaneous route 2 (two) times a day. 96 each 5 - escitalopram oxalate (LEXAPRO) 20 MG tablet Take 1 tablet (20 mg total) by mouth once daily. 90 tablet 1 - FLOVENT DISKUS 250 mcg/actuation Disk with Device INHALE ONE PUFF BY MOUTH TWICE A DAY, RINSE MOUTH AFTER USE 60 each 5 - fluticasone (FLONASE) 50 mcg/actuation nasal spray 2 sprays by Each Nostril route once daily. 16 g 12 - food supplemt, lactose-reduced (ENSURE) Liquid Drink 2 bottles per day. Patient requests strawberry. 90176 mL PRN - hydroCHLOROthiazide (HYDRODIURIL) 25 MG tablet Take 1 tablet (25 mg total) by mouth once daily. 30 tablet 5 - ipratropium-albuterol (DUO-NEB) 0.5-2.5 mg/3 mL nebulizer NEBULIZE ONE VIAL BY MOUTH FOUR TIMES A DAY 360 vial 1 - lamoTRIgine (LAMICTAL) 150 MG tablet Take 1 tablet (150 mg total) by mouth 2 (two) times a day. 0900 and 1500 60 tablet 3 - levoFLOXacin (LEVAQUIN) 750 MG tablet Take 1 tablet (750 mg total) by mouth once daily for 10 days. 9 tablet 0 - lisinopril (PRINIVIL,ZESTRIL) 10 MG tablet Take 1 tablet (10 mg total) by mouth once daily. 90 tablet 2 - mirtazapine (REMERON) 45 MG tablet Take 1 tablet (45 mg total) by mouth daily every night. 90 tablet 1 - montelukast (SINGULAIR) 10 mg tablet TAKE ONE TABLET BY MOUTH EVERY EVENING 30 tablet 4 - omeprazole (PRILOSEC) 40 MG capsule TAKE ONE CAPSULE BY MOUTH DAILY 30 capsule 11 - ondansetron (ZOFRAN ODT) 4 MG disintegrating tablet Take 1 tablet (4 mg total) by mouth every 8 (eight) hours as needed for nausea / vomiting. 12 tablet 0 - oxyCODONE-acetaminophen (PERCOCET) 10-325 mg tablet Take 0.5-1 tablets by mouth 3 (three) times a day as needed for pain. Do Not Fill Prior to START Date To Last 30days. No early refills Max Daily Amount: 3 tablets 90 tablet 0 - [START ON 08/31/2017] oxyCODONE-acetaminophen (PERCOCET) 10-325 mg tablet Take 0.5-1 tablets by mouth 3 (three) times a day as needed for pain. Do Not Fill Prior to START Date To Last 30days. No early refills Max Daily Amount: 3 tablets 90 tablet 0 - potassium chloride (KLOR-CON) 10 MEQ CR tablet Take 1 tablet (10 mEq total) by mouth 2 (two) times a day. 30 tablet 6 - prazosin (MINIPRESS) 2 MG capsule Take 2 capsules (4 mg total) by mouth daily every night. 180 capsule 1 - PROAIR HFA 90 mcg/actuation inhaler INHALE TWO PUFFS BY MOUTH FOUR TIMES A DAY 8.5 each 5 - QUEtiapine (SEROQUEL) 200 MG tablet Take one tab at night (Patient taking differently: 100 mg daily every night. Take one tab at night ) 30 tablet 3 - QUEtiapine (SEROQUEL) 50 MG tablet Take one tab in the morning and one tab in the afternoon. 30 tablet 3 - SENNALAX-S 8.6-50 mg TAKE TWO TABLETS BY MOUTH TWICE A DAY 120 tablet 10 - underpads Pad Use as needed for incontinence 300 each 10 - guaiFENesin 200 mg tablet TAKE THREE TABLETS BY MOUTH TWICE A DAY FOR 10 DAYS 60 tablet 0 - nicotine (NICODERM CQ) 21 mg/[address] 1 patch onto the skin once daily. (Patient not taking: Reported on 08/12/2017 ) 28 patch 1 - nystatin (MYCOSTATIN) 100,000 unit/mL suspension Take 5 mL (500,000 Units total) by mouth 4 (four) times a day. 200 mL 0 - oxyCODONE-acetaminophen (PERCOCET) 5-325 mg tablet Take 1 tablet by mouth once every 4 (four) hours as needed for pain for up to 20 doses. Max Daily Amount: 6 tablets 20 tablet 0 - predniSONE (DELTASONE) 20 MG tablet Take 1 tablet (20 mg total) by mouth 2 (two) times a day. 8 tablet 0 No current facility-administered medications on file prior to visit. Past Medical History: Patient Active Problem List Diagnosis - Hypercholesteremia - Hyperlipidemia - Anxiety attack - Generalized anxiety disorder - Smoker - Essential hypertension - Acute bronchitis - AR (allergic rhinitis) - GERD (gastroesophageal reflux disease) - Osteoarthritis of right knee - Arthritis - DDD (degenerative disc disease) - Back pain - Anxiety state - Cervical disc disease - Cervical radiculopathy - Spinal stenosis - Cervical spondylosis with myelopathy - Screening - History of total knee arthroplasty - Knee pain - Trochanteric bursitis - Knee osteoarthritis - Knee joint replacement status - Hip fracture, left (HCC) - Depression - S/P total knee arthroplasty - S/P hip hemiarthroplasty- Left - Anxiety state - Pain in joint, lower leg - Routine general medical examination at a health care facility - Osteoarthritis of knee - Vitamin D deficiency - Dyslipidemia - Community acquired pneumonia - COPD exacerbation ([facility]) - Hypoxia - Pneumonia of left lower lobe due to infectious organism - Severe sepsis ([facility]) - Other chest pain - Pulmonary nodule Past Medical History: Diagnosis Date - Anxiety - Anxiety - Arthritis - Breast mass 2013 rt axilla - Bronchitis - Bursitis Left hip - Cervical radiculopathy - COPD (chronic obstructive pulmonary disease) (HCC) - DDD (degenerative disc disease) - Depression - Dermatological disorder 01/25 irratative dermatitis from insect b ite - Esophageal stricture - Generalized anxiety disorder - GERD (gastroesophageal reflux disease) - H. pylori infection Hx of H pylori infection several months ago treated with medication,no current issues. - H/O pyloric stenosis - Hiatal hernia - HTN (hypertension) - Hypercholesteremia - Hyperlipidemia No current medications or issues. - OA (osteoarthritis) of knee - Palpitations with anxiety - Pneumonia 1994 - Spinal stenosis Past Surgical History: Procedure Laterality Date - ESOPHAGEAL DILATION - LUMBAR FUSION 1995 - CO TOTAL KNEE ARTHROPLASTY Right 05/28/2014 Procedure: REPLACEMENT TOTAL JOINT KNEE RIGHT / BETO ; Surgeon: Isaak Moncada MD; Location: [facility]; Service: Orthopedics - TENDON RELEASE Right arm - TOTAL HIP ARTHROPLASTY Left 09/26/14 hip hemiarthoplasty - TOTAL KNEE ARTHROPLASTY Left 11/23 - TUBAL LIGATION Family History: Family History Problem Relation Age of Onset - Other Other Hx: Yes Dx: Diabetes Fam Mem: Family h/o - Drug abuse Other - Other Other Hx: Yes Dx: Hypertension Fam Mem: Mother - Drug abuse Other - Hypertension Mother - Heart disease Mother - Diabetes Mother - No Known Problem Father - Other Sister - Cancer Sister - Other Other Hx: Yes Dx: Heart disease Fam Mem: Mother - Diabetes Maternal Grandmother Social History: History Alcohol Use No History Smoking Status - Current Every Day Smoker - Packs/day: 1.50 - Years: 44.00 - Types: Cigarettes Smokeless Tobacco - Current User History Drug Use No ROS: Review of Systems General : No weight gain or loss, no loss of appetite, no fever, no chills, has fatigue, no night sweats Skin And lymphatics: No rashes, no skin discolorations, no easy bruising, no lymphadenopathy Head: no dizziness, no masses, no seizures Eyes: No visual changes no eye pain Ears: No tinnitus, no vertigo, no hearing loss Nose: No nosebleeds, slight clear discharge, no sinus disease Mouth and throat: Denies dental disease, no hoarseness, no throat pain Respiratory: Positive for cough, chronic shortness of breath, slight sputum production Cardiovascular: No chest pain, no orthopnea, no paroxysmal nocturnal dyspnea, has dyspnea on exertion chronically, no claudication, no edema, no valvular disease Gastrointestinal: No dysphagia, no abdominal pain, no nausea, no vomiting, no hematemesis, no diarrhea, no constipation, no melena, no hematochezia Genitourinary: No dysuria, no frequency, no hesitancy, no hematuria no discharge Musculoskeletal: No joint pain or swelling, no arthritis, no myalgias Neuropsychiatric: No weakness no seizures, no memory changes, no depression Neurologic: No unilateral or bilateral numbness tingling or weakness, no difficulty with speech, no vision changes, no problems with balance, denies dizziness, Positive for headache PE: BP 130/76 Pulse 84 Temp 36.7 C (98 F) (Temporal Artery (forehead)) Resp 18 Ht 157.5 cm (5' 2) Wt 73.6 kg (162 lb 3.2 oz) SpO2 91% BMI 29.67 kg/m2 Physical Exam Physical Exam Nursing note and vitals reviewed. Constitutional: . patient appears well-developed and well-nourished. No distress. Head: Normocephalic and atraumatic. Right Ear: External ear normal. no erythema bright tympanic membrane bony landmarks intact Left Ear: External ear normal. No erythema bright tympanic membrane bony landmarks intact Mouth/Throat: No oropharyngeal exudate.no thrush Neck: No JVD present. No tracheal deviation present. No thyromegaly present. Cardiovascular: Normal rate, regular rhythm, normal heart sounds and intact distal pulses. Exam reveals no gallop and no friction rub. No murmur heard. Pulmonary/Chest: Effort normal. No respiratory distress. patient has no wheezes. patient has no rales. Patient exhibits no tenderness. She has coarse breath sounds. Abdominal: Soft. Patient exhibits no distension and no mass. There is no tenderness to palpation. There is no rebound and no guarding. Musculoskeletal: Normal range of motion. Patient exhibits no edema and no tenderness. Skin: She has 2 superficial excoriations of 7 cm and 6 cm surrounded with bruising, which is warm to touch to incision. On medial to lateral aspect on right anterior forearm, she has excoriation of 6 cm on lower side with drainage and on upper one, she has 7 cm excoriation with little redness. Labs: Admission on 08/06/2017, Discharged on 08/06/2017 Component Date Value Ref Range Status - D-Dimer Quantitative 08/06/2017 0.97 mg/L FEU Final Comment: Interpretive Data for Quantitative D-Dimer Test: D-Dimers are known to be elevated in a variety of disorders including: advanced age, , coronary disease, cancer, liver disease, infection, inflammation, hematoma, DIC, trauma, post surgery, diabetes, thrombolytic therapy, and stress. D-Dimers may be decreased in patients receiving anticoagulant therapy. 1) Reference Range: Clinically asymptomatic patients may have D-Dimer values of up to 0.52 mg/L FEU (reference range), but the DVT/PE cannot be ruled out unless the D-Dimer value is less than or equal to 0.50 mg/L FEU (the negative cutoff). 2) Evaluation of Deep Venous Thrombosis/Pulmonary Embolus (DVT/PE): < or =0.50: D-Dimer values of equal to or less than 0.50 mg/L FEU can be used to help rule out the presence of DVT/PE, especially in conjunction with a low score on a preassessment risk screen (e.g. Wells Score). Clinical diagnosis should not be based only on D-Dimer test results. 0.51 - 0.52: D-Dimer values of 0.51 and 0.52 mg/L FEU are within reference range, but cannot rule out the presence of DVT/PE. Additional testing may be indicated, especially when a preassessment risk screen (e.g. Wells Score) is moderate to high. >0.52: Suggests that DVT/PE or other fibrinolytic process is present. 3) Evaluation of Coagulopathy 0 - 0.52: Not indicative of Disseminated Intravascular Coagulopathy or other fibrinolytic process. >0.52: Indicative of Disseminated Intravascular Coagulopathy or other fibrinolytic process. - WBC 08/06/2017 4.8 4.0 - 12.0 k/ul Final - RBC 08/06/2017 4.17 3.50 - 5.30 m/ul Final - Hemoglobin 08/06/2017 11.8* 12.0 - 16.0 gm/dl Final - Hematocrit 08/06/2017 36.2 36.0 - 48.0 % Final - MCV 08/06/2017 87 80 - 100 fl Final - MCH 08/06/2017 28.3 26.0 - 34.0 pg Final - MCHC 08/06/2017 32.6 30.0 - 37.0 gm/dl Final - RDW 08/06/2017 14.8 11.5 - 15.0 % Final - Platelet Count 08/06/2017 213 140 - 440 k/ul Final - MPV 08/06/2017 10.4 8.5 - 12.5 fl Final - Neutrophils % 08/06/2017 62 % Final - Immature Granulocytes % 08/06/2017 0 % Final - Lymphs % 08/06/2017 28 % Final - Monocytes % 08/06/2017 8 % Final - Eosinophils Percent 08/06/2017 2 % Final - Basophils Percent 08/06/2017 0 % Final - Neutrophils Abs 08/06/2017 3.0 1.5 - 8.0 k/ul Final - Immature Granulocytes Abs 08/06/2017 0.0 0.0 - 0.1 k/ul Final - Lymphs Abs 08/06/2017 1.3 1.0 - 4.5 k/ul Final - Monocytes Abs 08/06/2017 0.4 0.1 - 1.1 k/ul Final - Eosinophils Absolute 08/06/2017 0.1 0.0 - 0.4 k/ul Final - Basophils Absolute 08/06/2017 0.0 0.0 - 0.1 k/ul Final - Glucose 08/06/2017 99 70 - 100 mg/dl Final Comment: For the purpose of classification, fasting Glucose from 100-125 mg/dl is considered impaired fasting Glucose (Pre-Diabetic) by the [place] [employer]. Fasting Glucose > 125 mg/dl is indicative of Diabetes Mellitus, but must be confirmed. - BUN 08/06/2017 11 6 - 24 mg/dl Final - Creatinine 08/06/2017 0.84 0.50 - 1.10 mg/dl Final The new Creatinine assay is IDMS-traceable. Reference ranges and GFR calculations have been updated. - Sodium 08/06/2017 141 135 - 145 mmol/L Final - Potassium 08/06/2017 3.4* 3.7 - 5.1 mmol/L Final - Chloride 08/06/2017 105 96 - 110 mmol/L Final - CO2 08/06/2017 32.0 22.0 - 32.0 mmol/L Final - Anion Gap 08/06/2017 7 <=20 mmol/L Final - Calcium 08/06/2017 8.5 8.5 - 10.5 mg/dl Final - Total Protein 08/06/2017 6.7 6.0 - 8.4 gm/dl Final - Albumin 08/06/2017 3.3* 3.5 - 5.0 gm/dl Final - Globulin 08/06/2017 3.4 2.0 - 4.4 gm/dl Final - AST 08/06/2017 14 10 - 40 u/l Final - Alkaline Phosphatase 08/06/2017 85 33 - 138 u/l Final - Total Bilirubin 08/06/2017 0.3 0.0 - 1.5 mg/dl Final - ALT 08/06/2017 26 12 - 78 u/l Final - GFR MDRD Af Amer 08/06/2017 85* >=90 mL/min/1.73 m2 Final - GFR MDRD Non Af Amer 08/06/2017 73* >=90 mL/min/1.73 m2 Final *NOTE: GFR is a calculated estimate of the glomerular filtration rate.* - Troponin I 08/06/2017 <0.04 <=0.04 ng/mL Final Hospital Outpatient Visit on 08/01/2017 Component Date Value Ref Range Status - Glucose Reagent Strip 08/01/2017 125* 70 - 110 mg/dl Final - Glucose Reagent Strip 08/01/2017 112* 70 - 110 mg/dl Final Admission on 07/23/2017, Discharged on 07/23/2017 Component Date Value Ref Range Status - WBC 07/23/2017 6.4 4.0 - 12.0 k/ul Final - RBC 07/23/2017 4.38 3.50 - 5.30 m/ul Final - Hemoglobin 07/23/2017 12.3 12.0 - 16.0 gm/dl Final - Hematocrit 07/23/2017 39.1 36.0 - 48.0 % Final - MCV 07/23/2017 89 80 - 100 fl Final - MCH 07/23/2017 28.1 26.0 - 34.0 pg Final - MCHC 07/23/2017 31.5 30.0 - 37.0 gm/dl Final - RDW 07/23/2017 14.9 11.5 - 15.0 % Final - Platelet Count 07/23/2017 201 140 - 440 k/ul Final - MPV 07/23/2017 9.5 8.5 - 12.5 fl Final - Neutrophils % 07/23/2017 65 % Final - Immature Granulocytes % 07/23/2017 0 % Final - Lymphs % 07/23/2017 27 % Final - Monocytes % 07/23/2017 5 % Final - Eosinophils Percent 07/23/2017 2 % Final - Basophils Percent 07/23/2017 0 % Final - Neutrophils Abs 07/23/2017 4.2 1.5 - 8.0 k/ul Final - Immature Granulocytes Abs 07/23/2017 0.0 0.0 - 0.1 k/ul Final - Lymphs Abs 07/23/2017 1.7 1.0 - 4.5 k/ul Final - Monocytes Abs 07/23/2017 0.3 0.1 - 1.1 k/ul Final - Eosinophils Absolute 07/23/2017 0.1 0.0 - 0.4 k/ul Final - Basophils Absolute 07/23/2017 0.0 0.0 - 0.1 k/ul Final - Glucose 07/23/2017 97 70 - 100 mg/dl Final Comment: For the purpose of classification, fasting Glucose from 100-125 mg/dl is considered impaired fasting Glucose (Pre-Diabetic) by the [place] [employer]. Fasting Glucose > 125 mg/dl is indicative of Diabetes Mellitus, but must be confirmed. - BUN 07/23/2017 12 6 - 24 mg/dl Final - Creatinine 07/23/2017 0.75 0.50 - 1.10 mg/dl Final The new Creatinine assay is IDMS-traceable. Reference ranges and GFR calculations have been updated. - Sodium 07/23/2017 144 135 - 145 mmol/L Final - Potassium 07/23/2017 3.4* 3.7 - 5.1 mmol/L Final - Chloride 07/23/2017 111* 96 - 110 mmol/L Final - CO2 07/23/2017 27.0 22.0 - 32.0 mmol/L Final - Anion Gap 07/23/2017 9 <=20 mmol/L Final - Calcium 07/23/2017 8.3* 8.5 - 10.5 mg/dl Final - Total Protein 07/23/2017 6.3 6.0 - 8.4 gm/dl Final - Albumin 07/23/2017 3.2* 3.5 - 5.0 gm/dl Final - Globulin 07/23/2017 3.1 2.0 - 4.4 gm/dl Final - AST 07/23/2017 11 10 - 40 u/l Final - Alkaline Phosphatase 07/23/2017 97 33 - 138 u/l Final - ALT 07/23/2017 19 12 - 78 u/l Final - GFR MDRD Af Amer 07/23/2017 >90 >=90 mL/min/1.73 m2 Final - GFR MDRD Non Af Amer 07/23/2017 84* >=90 mL/min/1.73 m2 Final *NOTE: GFR is a calculated estimate of the glomerular filtration rate.* - Total Bilirubin 07/23/2017 0.2 0.0 - 1.5 mg/dl Final - CHF Peptide (proBNP) 07/23/2017 64 <=124 pg/ml Final - Influenza A Antigen 07/23/2017 Negative Negative Final - Influenza B Antigen 07/23/2017 Negative Negative Final - Blood gas draw time 07/23/20172007 Final - pH, Arterial 07/23/2017 7.41 7.35 - 7.45 Final - pCO2, Arterial 07/23/2017 44 35 - 45 mmHg Final - pO2, Arterial 07/23/2017 66* 80 - 100 mmHg Final - HCO3, Arterial 07/23/2017 27.9 20.0 - 30.0 mmol/L Final - Base Excess 07/23/2017 2.7 -4.0 - 4.0 mmol/L Final - O2 Sat, Arterial 07/23/2017 93* 95 - 98 % Final - Ventilation 07/23/2017 21.0 Final - Allens Test 07/23/2017 POS Final Admission on 07/05/2017, Discharged on 07/09/2017 Component Date Value Ref Range Status - WBC 07/05/2017 7.7 4.0 - 12.0 k/ul Final - RBC 07/05/2017 4.09 3.50 - 5.30 m/ul Final - Hemoglobin 07/05/2017 11.5* 12.0 - 16.0 gm/dl Final - Hematocrit 07/05/2017 35.5* 36.0 - 48.0 % Final - MCV 07/05/2017 87 80 - 100 fl Final - MCH 07/05/2017 28.1 26.0 - 34.0 pg Final - MCHC 07/05/2017 32.4 30.0 - 37.0 gm/dl Final - RDW 07/05/2017 15.1* 11.5 - 15.0 % Final - Platelet Count 07/05/2017 245 140 - 440 k/ul Final - MPV 07/05/2017 9.9 8.5 - 12.5 fl Final - Neutrophils % 07/05/2017 68 % Final - Immature Granulocytes % 07/05/2017 1 % Final - Lymphs % 07/05/2017 27 % Final - Monocytes % 07/05/2017 4 % Final - Eosinophils Percent 07/05/2017 0 % Final - Basophils Percent 07/05/2017 0 % Final - Neutrophils Abs 07/05/2017 5.2 1.5 - 8.0 k/ul Final - Immature Granulocytes Abs 07/05/2017 0.1 0.0 - 0.1 k/ul Final - Lymphs Abs 07/05/2017 2.1 1.0 - 4.5 k/ul Final - Monocytes Abs 07/05/2017 0.3 0.1 - 1.1 k/ul Final - Eosinophils Absolute 07/05/2017 0.0 0.0 - 0.4 k/ul Final - Basophils Absolute 07/05/2017 0.0 0.0 - 0.1 k/ul Final - Glucose 07/05/2017 167* 70 - 100 mg/dl Final Comment: For the purpose of classification, fasting Glucose from 100-125 mg/dl is considered impaired fasting Glucose (Pre-Diabetic) by the [place] [employer]. Fasting Glucose > 125 mg/dl is indicative of Diabetes Mellitus, but must be confirmed. - BUN 07/05/2017 13 6 - 24 mg/dl Final - Creatinine 07/05/2017 0.81 0.50 - 1.10 mg/dl Final The new Creatinine assay is IDMS-traceable. Reference ranges and GFR calculations have been updated. - Sodium 07/05/2017 141 135 - 145 mmol/L Final - Potassium 07/05/2017 3.1* 3.7 - 5.1 mmol/L Final - Chloride 07/05/2017 104 96 - 110 mmol/L Final - CO2 07/05/2017 30.0 22.0 - 32.0 mmol/L Final - Anion Gap 07/05/2017 10 <=20 mmol/L Final - Calcium 07/05/2017 8.6 8.5 - 10.5 mg/dl Final - GFR MDRD Af Amer 07/05/2017 89* >=90 mL/min/1.73 m2 Final - GFR MDRD Non Af Amer 07/05/2017 77* >=90 mL/min/1.73 m2 Final *NOTE: GFR is a calculated estimate of the glomerular filtration rate.* - BUN 07/06/2017 14 6 - 24 mg/dl Final - Glucose 07/06/2017 291* 70 - 100 mg/dl Final Comment: For the purpose of classification, fasting Glucose from 100-125 mg/dl is considered impaired fasting Glucose (Pre-Diabetic) by the [place] [employer]. Fasting Glucose > 125 mg/dl is indicative of Diabetes Mellitus, but must be confirmed. - Creatinine 07/06/2017 1.15* 0.50 - 1.10 mg/dl Final The new Creatinine assay is IDMS-traceable. Reference ranges and GFR calculations have been updated. - Sodium 07/06/2017 142 135 - 145 mmol/L Final - Potassium 07/06/2017 4.0 3.7 - 5.1 mmol/L Final - Chloride 07/06/2017 105 96 - 110 mmol/L Final - CO2 07/06/2017 24.0 22.0 - 32.0 mmol/L Final - Anion Gap 07/06/2017 17 <=20 mmol/L Final - Calcium 07/06/2017 8.3* 8.5 - 10.5 mg/dl Final - GFR MDRD Af Amer 07/06/2017 58* >=90 mL/min/1.73 m2 Final - GFR MDRD Non Af Amer 07/06/2017 50* >=90 mL/min/1.73 m2 Final *NOTE: GFR is a calculated estimate of the glomerular filtration rate.* - WBC 07/06/2017 5.8 4.0 - 12.0 k/ul Final - RBC 07/06/2017 3.80 3.50 - 5.30 m/ul Final - Hemoglobin 07/06/2017 10.7* 12.0 - 16.0 gm/dl Final - Hematocrit 07/06/2017 33.2* 36.0 - 48.0 % Final - MCV 07/06/2017 87 80 - 100 fl Final - MCH 07/06/2017 28.2 26.0 - 34.0 pg Final - MCHC 07/06/2017 32.2 30.0 - 37.0 gm/dl Final - RDW 07/06/2017 15.0 11.5 - 15.0 % Final - Platelet Count 07/06/2017 206 140 - 440 k/ul Final - MPV 07/06/2017 10.0 8.5 - 12.5 fl Final - Neutrophils % 07/06/2017 88 % Final - Immature Granulocytes % 07/06/2017 2 % Final - Lymphs % 07/06/2017 10 % Final - Monocytes % 07/06/2017 1 % Final - Neutrophils Abs 07/06/2017 5.1 1.5 - 8.0 k/ul Final - Immature Granulocytes Abs 07/06/2017 0.1 0.0 - 0.1 k/ul Final - Lymphs Abs 07/06/2017 0.6* 1.0 - 4.5 k/ul Final - Monocytes Abs 07/06/2017 0.1 0.1 - 1.1 k/ul Final - Procalcitonin 07/06/2017 <0.05 <=0.05 ng/mL Final Comment: Suspected lower respiratory tract infection 0.1-0.25 ng/ml Low probability for bacterial infection >0.25 ng/ml Increased probability of bacterial infection Suspected Sepsis 0.1-0.5 ng/ml Low probability of sepsis >0.5 -2.0 ng/ml Increased probability of sepsis >2.0 ng/ml High risk for sepsis The use of antibiotics should be based on clinical finding and not solely on Procalcitonin results. Procalcitonin may be helpful in monitoring antimicrobial effectiveness if sequential values are obtained. Procalcitonin maybe increased in patients with other disease states including but not limited to pancreatitis, localized bacterial infection, autoimmune diseases, crenshaw, trauma, major surgery, as well as some non-bacterial infections. - MICROBIOLOGY FINAL REPORT 07/06/2017 No Respiratory Pathogens detected by multiplex PCR Final - Troponin I 07/06/2017 <0.04 <=0.04 ng/mL Final - Troponin I 07/07/2017 <0.04 <=0.04 ng/mL Final - WBC 07/07/2017 10.4 4.0 - 12.0 k/ul Final - RBC 07/07/2017 3.83 3.50 - 5.30 m/ul Final - Hemoglobin 07/07/2017 10.7* 12.0 - 16.0 gm/dl Final - Hematocrit 07/07/2017 33.6* 36.0 - 48.0 % Final - MCV 07/07/2017 88 80 - 100 fl Final - MCH 07/07/2017 27.9 26.0 - 34.0 pg Final - MCHC 07/07/2017 31.8 30.0 - 37.0 gm/dl Final - RDW 07/07/2017 15.9* 11.5 - 15.0 % Final - Platelet Count 07/07/2017 214 140 - 440 k/ul Final - MPV 07/07/2017 9.8 8.5 - 12.5 fl Final - Nucleated RBCI's 07/07/2017 0 <=0 /100 WBC Final - Neutrophils % 07/07/2017 73 % Final - Immature Granulocytes % 07/07/2017 1 % Final - Lymphs % 07/07/2017 20 % Final - Monocytes % 07/07/2017 5 % Final - Eosinophils Percent 07/07/2017 0 % Final - Basophils Percent 07/07/2017 0 % Final - Neutrophils Abs 07/07/2017 7.6 1.5 - 8.0 k/ul Final - Immature Granulocytes Abs 07/07/2017 0.1 0.0 - 0.1 k/ul Final - Lymphs Abs 07/07/2017 2.1 1.0 - 4.5 k/ul Final - Monocytes Abs 07/07/2017 0.5 0.1 - 1.1 k/ul Final - Eosinophils Absolute 07/07/2017 0.0 0.0 - 0.4 k/ul Final - Basophils Absolute 07/07/2017 0.0 0.0 - 0.1 k/ul Final - Glucose 07/07/2017 107* 70 - 100 mg/dl Final Comment: For the purpose of classification, fasting Glucose from 100-125 mg/dl is considered impaired fasting Glucose (Pre-Diabetic) by the [place] [employer]. Fasting Glucose > 125 mg/dl is indicative of Diabetes Mellitus, but must be confirmed. - BUN 07/07/2017 13 6 - 24 mg/dl Final - Creatinine 07/07/2017 0.88 0.50 - 1.10 mg/dl Final The new Creatinine assay is IDMS-traceable. Reference ranges and GFR calculations have been updated. - Sodium 07/07/2017 145 135 - 145 mmol/L Final - Potassium 07/07/2017 3.3* 3.7 - 5.1 mmol/L Final - Chloride 07/07/2017 107 96 - 110 mmol/L Final - CO2 07/07/2017 29.0 22.0 - 32.0 mmol/L Final - Anion Gap 07/07/2017 12 <=20 mmol/L Final - Calcium 07/07/2017 8.7 8.5 - 10.5 mg/dl Final - GFR MDRD Af Amer 07/07/2017 81* >=90 mL/min/1.73 m2 Final - GFR MDRD Non Af Amer 07/07/2017 70* >=90 mL/min/1.73 m2 Final *NOTE: GFR is a calculated estimate of the glomerular filtration rate.* - Troponin I 07/07/2017 <0.04 <=0.04 ng/mL Final - Total CK 07/08/2017 53 26 - 192 u/l Final - CK-MB 07/08/2017 0.7 0.0 - 3.6 ng/mL Final - CK-MB Index 07/08/2017 1.3 0.0 - 4.0 Index Units Final CKMB Index may be of limited clinical value when both CK and MB are within normal limits. - Troponin I 07/08/2017 <0.04 <=0.04 ng/mL Final - GFR MDRD Af Amer 07/08/2017 87* >=90 mL/min/1.73 m2 Final - Glucose 07/08/2017 90 70 - 100 mg/dl Final Comment: For the purpose of classification, fasting Glucose from 100-125 mg/dl is considered impaired fasting Glucose (Pre-Diabetic) by the [place] [employer]. Fasting Glucose > 125 mg/dl is indicative of Diabetes Mellitus, but must be confirmed. - BUN 07/08/2017 15 6 - 24 mg/dl Final - Creatinine 07/08/2017 0.82 0.50 - 1.10 mg/dl Final The new Creatinine assay is IDMS-traceable. Reference ranges and GFR calculations have been updated. - Sodium 07/08/2017 142 135 - 145 mmol/L Final - Potassium 07/08/2017 3.6* 3.7 - 5.1 mmol/L Final - Chloride 07/08/2017 103 96 - 110 mmol/L Final - CO2 07/08/2017 34.0* 22.0 - 32.0 mmol/L Final - Anion Gap 07/08/2017 9 <=20 mmol/L Final - Calcium 07/08/2017 8.9 8.5 - 10.5 mg/dl Final - GFR MDRD Non Af Amer 07/08/2017 75* >=90 mL/min/1.73 m2 Final *NOTE: GFR is a calculated estimate of the glomerular filtration rate.* Admission on 07/01/2017, Discharged on 07/03/2017 Component Date Value Ref Range Status - WBC 07/01/2017 6.7 4.0 - 12.0 k/ul Final - RBC 07/01/2017 4.39 3.50 - 5.30 m/ul Final - Hemoglobin 07/01/2017 12.3 12.0 - 16.0 gm/dl Final - Hematocrit 07/01/2017 38.4 36.0 - 48.0 % Final - MCV 07/01/2017 88 80 - 100 fl Final - MCH 07/01/2017 28.0 26.0 - 34.0 pg Final - MCHC 07/01/2017 32.0 30.0 - 37.0 gm/dl Final - RDW 07/01/2017 14.5 11.5 - 15.0 % Final - Platelet Count 07/01/2017 188 140 - 440 k/ul Final - MPV 07/01/2017 9.7 8.5 - 12.5 fl Final - Neutrophils % 07/01/2017 61 % Final - Immature Granulocytes % 07/01/2017 0 % Final - Lymphs % 07/01/2017 30 % Final - Monocytes % 07/01/2017 6 % Final - Eosinophils Percent 07/01/2017 3 % Final - Basophils Percent 07/01/2017 0 % Final - Neutrophils Abs 07/01/2017 4.1 1.5 - 8.0 k/ul Final - Immature Granulocytes Abs 07/01/2017 0.0 0.0 - 0.1 k/ul Final - Lymphs Abs 07/01/2017 2.0 1.0 - 4.5 k/ul Final - Monocytes Abs 07/01/2017 0.4 0.1 - 1.1 k/ul Final - Eosinophils Absolute 07/01/2017 0.2 0.0 - 0.4 k/ul Final - Basophils Absolute 07/01/2017 0.0 0.0 - 0.1 k/ul Final - Glucose 07/01/2017 123* 70 - 100 mg/dl Final Comment: For the purpose of classification, fasting Glucose from 100-125 mg/dl is considered impaired fasting Glucose (Pre-Diabetic) by the [place] [employer]. Fasting Glucose > 125 mg/dl is indicative of Diabetes Mellitus, but must be confirmed. - BUN 07/01/2017 9 6 - 24 mg/dl Final - Creatinine 07/01/2017 0.85 0.50 - 1.10 mg/dl Final The new Creatinine assay is IDMS-traceable. Reference ranges and GFR calculations have been updated. - Sodium 07/01/2017 138 135 - 145 mmol/L Final - Potassium 07/01/2017 3.3* 3.7 - 5.1 mmol/L Final - Chloride 07/01/2017 104 96 - 110 mmol/L Final - CO2 07/01/2017 25.0 22.0 - 32.0 mmol/L Final - Anion Gap 07/01/2017 12 <=20 mmol/L Final - Calcium 07/01/2017 8.6 8.5 - 10.5 mg/dl Final - Total Protein 07/01/2017 6.3 6.0 - 8.4 gm/dl Final - Albumin 07/01/2017 3.1* 3.5 - 5.0 gm/dl Final - Globulin 07/01/2017 3.2 2.0 - 4.4 gm/dl Final - AST 07/01/2017 11 10 - 40 u/l Final - Alkaline Phosphatase 07/01/2017 83 33 - 138 u/l Final - Total Bilirubin 07/01/2017 0.1 0.0 - 1.5 mg/dl Final - ALT 07/01/2017 20 12 - 78 u/l Final - GFR MDRD Af Amer 07/01/2017 84* >=90 mL/min/1.73 m2 Final - GFR MDRD Non Af Amer 07/01/2017 73* >=90 mL/min/1.73 m2 Final *NOTE: GFR is a calculated estimate of the glomerular filtration rate.* - Lactic Acid 07/01/2017 2.3* 0.4 - 2.0 mmol/L Final - Protime 07/01/2017 10.4 9.6 - 11.9 sec Final - INR 07/01/2017 1.0 0.9 - 1.1 Final Warfarin THERAPEUTIC INR RANGE = 2.0 - 3.0 - Microbiolgy Preliminary Report 07/01/2017 No growth at 55 Hours Final - MICROBIOLOGY FINAL REPORT 07/01/2017 No growth at 5 days. Final - Microbiolgy Preliminary Report 07/01/2017 No growth at 55 Hours Final - MICROBIOLOGY FINAL REPORT 07/01/2017 No growth at 5 days. Final - Glucose 07/02/2017 196* 70 - 100 mg/dl Final Comment: For the purpose of classification, fasting Glucose from 100-125 mg/dl is considered impaired fasting Glucose (Pre-Diabetic) by the [place] [employer]. Fasting Glucose > 125 mg/dl is indicative of Diabetes Mellitus, but must be confirmed. - BUN 07/02/2017 8 6 - 24 mg/dl Final - Creatinine 07/02/2017 0.81 0.50 - 1.10 mg/dl Final The new Creatinine assay is IDMS-traceable. Reference ranges and GFR calculations have been updated. - Sodium 07/02/2017 141 135 - 145 mmol/L Final - Potassium 07/02/2017 3.5* 3.7 - 5.1 mmol/L Final - Chloride 07/02/2017 110 96 - 110 mmol/L Final - CO2 07/02/2017 22.0 22.0 - 32.0 mmol/L Final - Anion Gap 07/02/2017 12 <=20 mmol/L Final - GFR MDRD Af Amer 07/02/2017 89* >=90 mL/min/1.73 m2 Final - GFR MDRD Non Af Amer 07/02/2017 77* >=90 mL/min/1.73 m2 Final *NOTE: GFR is a calculated estimate of the glomerular filtration rate.* - Calcium 07/02/2017 7.3* 8.5 - 10.5 mg/dl Final - Lactic Acid 07/02/2017 2.8* 0.4 - 2.0 mmol/L Final - Lactic Acid 07/02/2017 3.3* 0.4 - 2.0 mmol/L Final - MICROBIOLOGY FINAL REPORT 07/03/2017 No Respiratory Pathogens detected by multiplex PCR Final - WBC 07/03/2017 8.2 4.0 - 12.0 k/ul Final - RBC 07/03/2017 3.73 3.50 - 5.30 m/ul Final - Hemoglobin 07/03/2017 10.5* 12.0 - 16.0 gm/dl Final - Hematocrit 07/03/2017 33.5* 36.0 - 48.0 % Final - MCV 07/03/2017 90 80 - 100 fl Final - MCH 07/03/2017 28.2 26.0 - 34.0 pg Final - MCHC 07/03/2017 31.3 30.0 - 37.0 gm/dl Final - RDW 07/03/2017 14.6 11.5 - 15.0 % Final - Platelet Count 07/03/2017 177 140 - 440 k/ul Final - MPV 07/03/2017 10.1 8.5 - 12.5 fl Final - Neutrophils % 07/03/2017 77 % Final - Immature Granulocytes % 07/03/2017 1 % Final - Lymphs % 07/03/2017 16 % Final - Monocytes % 07/03/2017 6 % Final - Eosinophils Percent 07/03/2017 0 % Final - Basophils Percent 07/03/2017 0 % Final - Neutrophils Abs 07/03/2017 6.3 1.5 - 8.0 k/ul Final - Immature Granulocytes Abs 07/03/2017 0.1 0.0 - 0.1 k/ul Final - Lymphs Abs 07/03/2017 1.3 1.0 - 4.5 k/ul Final - Monocytes Abs 07/03/2017 0.5 0.1 - 1.1 k/ul Final - Eosinophils Absolute 07/03/2017 0.0 0.0 - 0.4 k/ul Final - Basophils Absolute 07/03/2017 0.0 0.0 - 0.1 k/ul Final - Glucose 07/03/2017 161* 70 - 100 mg/dl Final Comment: For the purpose of classification, fasting Glucose from 100-125 mg/dl is considered impaired fasting Glucose (Pre-Diabetic) by the [place] [employer]. Fasting Glucose > 125 mg/dl is indicative of Diabetes Mellitus, but must be confirmed. - BUN 07/03/2017 8 6 - 24 mg/dl Final - Creatinine 07/03/2017 0.65 0.50 - 1.10 mg/dl Final The new Creatinine assay is IDMS-traceable. Reference ranges and GFR calculations have been updated. - Sodium 07/03/2017 147* 135 - 145 mmol/L Final - Potassium 07/03/2017 3.3* 3.7 - 5.1 mmol/L Final - Chloride 07/03/2017 114* 96 - 110 mmol/L Final - CO2 07/03/2017 26.0 22.0 - 32.0 mmol/L Final - Anion Gap 07/03/2017 10 <=20 mmol/L Final - Calcium 07/03/2017 7.6* 8.5 - 10.5 mg/dl Final - GFR MDRD Af Amer 07/03/2017 >90 >=90 mL/min/1.73 m2 Final - GFR MDRD Non Af Amer 07/03/2017 >90 >=90 mL/min/1.73 m2 Final *NOTE: GFR is a calculated estimate of the glomerular filtration rate.* - Procalcitonin 07/03/2017 <0.05 <=0.05 ng/mL Final Comment: Suspected lower respiratory tract infection 0.1-0.25 ng/ml Low probability for bacterial infection >0.25 ng/ml Increased probability of bacterial infection Suspected Sepsis 0.1-0.5 ng/ml Low probability of sepsis >0.5 -2.0 ng/ml Increased probability of sepsis >2.0 ng/ml High risk for sepsis The use of antibiotics should be based on clinical finding and not solely on Procalcitonin results. Procalcitonin may be helpful in monitoring antimicrobial effectiveness if sequential values are obtained. Procalcitonin maybe increased in patients with other disease states including but not limited to pancreatitis, localized bacterial infection, autoimmune diseases, crenshaw, trauma, major surgery, as well as some non-bacterial infections. - Vancomycin Tr 07/03/2017 9.5* 10.0 - 20.0 ug/ml Final Admission on 06/03/2017, Discharged on 06/07/2017 Component Date Value Ref Range Status - WBC 06/03/2017 3.7* 4.0 - 12.0 k/ul Final - RBC 06/03/2017 4.42 3.50 - 5.30 m/ul Final - Hemoglobin 06/03/2017 12.3 12.0 - 16.0 gm/dl Final - Hematocrit 06/03/2017 38.3 36.0 - 48.0 % Final - MCV 06/03/2017 87 80 - 100 fl Final - MCH 06/03/2017 27.8 26.0 - 34.0 pg Final - MCHC 06/03/2017 32.1 30.0 - 37.0 gm/dl Final - RDW 06/03/2017 14.2 11.5 - 15.0 % Final - Platelet Count 06/03/2017 187 140 - 440 k/ul Final - MPV 06/03/2017 10.4 8.5 - 12.5 fl Final - Neutrophils % 06/03/2017 60 % Final - Immature Granulocytes % 06/03/2017 0 % Final - Lymphs % 06/03/2017 30 % Final - Monocytes % 06/03/2017 8 % Final - Eosinophils Percent 06/03/2017 2 % Final - Basophils Percent 06/03/2017 0 % Final - Neutrophils Abs 06/03/2017 2.2 1.5 - 8.0 k/ul Final - Immature Granulocytes Abs 06/03/2017 0.0 0.0 - 0.1 k/ul Final - Lymphs Abs 06/03/2017 1.1 1.0 - 4.5 k/ul Final - Monocytes Abs 06/03/2017 0.3 0.1 - 1.1 k/ul Final - Eosinophils Absolute 06/03/2017 0.1 0.0 - 0.4 k/ul Final - Basophils Absolute 06/03/2017 0.0 0.0 - 0.1 k/ul Final - Glucose 06/03/2017 93 70 - 100 mg/dl Final Comment: For the purpose of classification, fasting Glucose from 100-125 mg/dl is considered impaired fasting Glucose (Pre-Diabetic) by the [place] [employer]. Fasting Glucose > 125 mg/dl is indicative of Diabetes Mellitus, but must be confirmed. - BUN 06/03/2017 8 6 - 24 mg/dl Final - Creatinine 06/03/2017 0.73 0.50 - 1.10 mg/dl Final The new Creatinine assay is IDMS-traceable. Reference ranges and GFR calculations have been updated. - Sodium 06/03/2017 138 135 - 145 mmol/L Final - Potassium 06/03/2017 3.4* 3.7 - 5.1 mmol/L Final - Chloride 06/03/2017 104 96 - 110 mmol/L Final - CO2 06/03/2017 28.0 22.0 - 32.0 mmol/L Final - Anion Gap 06/03/2017 9 <=20 mmol/L Final - Calcium 06/03/2017 8.3* 8.5 - 10.5 mg/dl Final - Total Protein 06/03/2017 6.4 6.0 - 8.4 gm/dl Final - Albumin 06/03/2017 3.2* 3.5 - 5.0 gm/dl Final - Globulin 06/03/2017 3.2 2.0 - 4.4 gm/dl Final - AST 06/03/2017 16 10 - 40 u/l Final - Alkaline Phosphatase 06/03/2017 97 33 - 138 u/l Final - Total Bilirubin 06/03/2017 0.3 0.0 - 1.5 mg/dl Final - ALT 06/03/2017 17 12 - 78 u/l Final - GFR MDRD Af Amer 06/03/2017 >90 >=90 mL/min/1.73 m2 Final - GFR MDRD Non Af Amer 06/03/2017 87* >=90 mL/min/1.73 m2 Final *NOTE: GFR is a calculated estimate of the glomerular filtration rate.* - Microbiolgy Preliminary Report 06/03/2017 No growth at 52 Hours Final - MICROBIOLOGY FINAL REPORT 06/03/2017 No growth at 5 days. Final - Microbiolgy Preliminary Report 06/03/2017 No growth at 52 Hours Final - MICROBIOLOGY FINAL REPORT 06/03/2017 No growth at 5 days. Final - Lactic Acid 06/03/2017 1.3 0.4 - 2.0 mmol/L Final - Influenza A Antigen 06/03/2017 Negative Negative Final - Influenza B Antigen 06/03/2017 Negative Negative Final - Blood gas draw time 06/03/2017 1443 Final - pH, Arterial 06/03/2017 7.37 7.35 - 7.45 Final - pCO2, Arterial 06/03/2017 51* 35 - 45 mmHg Final - pO2, Arterial 06/03/2017 58* 80 - 100 mmHg Final - HCO3, Arterial 06/03/2017 29.5 20.0 - 30.0 mmol/L Final - Base Excess 06/03/2017 3.1 -4.0 - 4.0 mmol/L Final - O2 Sat, Arterial 06/03/2017 89* 95 - 98 % Final - Ventilation 06/03/2017 44.0 Final - Allens Test 06/03/2017 POS Final - WBC 06/04/2017 4.2 4.0 - 12.0 k/ul Final - RBC 06/04/2017 4.29 3.50 - 5.30 m/ul Final - Hemoglobin 06/04/2017 11.9* 12.0 - 16.0 gm/dl Final - Hematocrit 06/04/2017 37.5 36.0 - 48.0 % Final - MCV 06/04/2017 87 80 - 100 fl Final - MCH 06/04/2017 27.7 26.0 - 34.0 pg Final - MCHC 06/04/2017 31.7 30.0 - 37.0 gm/dl Final - RDW 06/04/2017 14.1 11.5 - 15.0 % Final - Platelet Count 06/04/2017 191 140 - 440 k/ul Final - MPV 06/04/2017 10.2 8.5 - 12.5 fl Final - Neutrophils % 06/04/2017 85 % Final - Immature Granulocytes % 06/04/2017 0 % Final - Lymphs % 06/04/2017 12 % Final - Monocytes % 06/04/2017 3 % Final - Neutrophils Abs 06/04/2017 3.6 1.5 - 8.0 k/ul Final - Immature Granulocytes Abs 06/04/2017 0.0 0.0 - 0.1 k/ul Final - Lymphs Abs 06/04/2017 0.5* 1.0 - 4.5 k/ul Final - Monocytes Abs 06/04/2017 0.1 0.1 - 1.1 k/ul Final - Glucose 06/04/2017 174* 70 - 100 mg/dl Final Comment: For the purpose of classification, fasting Glucose from 100-125 mg/dl is considered impaired fasting Glucose (Pre-Diabetic) by the [place] [employer]. Fasting Glucose > 125 mg/dl is indicative of Diabetes Mellitus, but must be confirmed. - BUN 06/04/2017 15 6 - 24 mg/dl Final - Creatinine 06/04/2017 0.83 0.50 - 1.10 mg/dl Final The new Creatinine assay is IDMS-traceable. Reference ranges and GFR calculations have been updated. - Sodium 06/04/2017 140 135 - 145 mmol/L Final - Potassium 06/04/2017 3.7 3.7 - 5.1 mmol/L Final - Chloride 06/04/2017 106 96 - 110 mmol/L Final - CO2 06/04/2017 28.0 22.0 - 32.0 mmol/L Final - Anion Gap 06/04/2017 10 <=20 mmol/L Final - Calcium 06/04/2017 8.3* 8.5 - 10.5 mg/dl Final - GFR MDRD Af Amer 06/04/2017 86* >=90 mL/min/1.73 m2 Final - GFR MDRD Non Af Amer 06/04/2017 74* >=90 mL/min/1.73 m2 Final *NOTE: GFR is a calculated estimate of the glomerular filtration rate.* - Legionella Pneumophila Ag, Ur 06/04/2017 Negative Final Comment: Per [facility] of Health and Human Services regulations at 173-NAC (Communicable Diseases); mandated results are reported to the [place] Department of Health and Human Services, Division of Public Health, Office of Epidemiology, [address] [place] [address]. - S. pneumoniae Antigen Urine 06/04/2017 Negative Negative Final Interpretive Data: False positives may occur with Streptococcal pneumonia Antigen Test due to cross-reactivity with other members of the S. mitis group. Clinical correlation is recommended. - Glucose Reagent Strip 06/05/2017 189* 70 - 110 mg/dl Final Admission on 05/06/2017, Discharged on 05/06/2017 Component Date Value Ref Range Status - Color, UA 05/06/2017 Yellow Yellow Final - Appearance 05/06/2017 Turbid* Clear Final - Glucose, UA 05/06/2017 Negative Negative Final - Bilirubin, UA 05/06/2017 Small* Negative Final No confirmatory reagent available. Urine bilirubin result may be erroneous. - Ketones, UA 05/06/2017 Trace* Negative Final - Specific Mcintyre, UA 05/06/2017 1.020 <=1.030 Final - Blood, UA 05/06/2017 Large* Negative Final - pH, UA 05/06/2017 7.0 4.5 - 8.0 Final - Protein, UA 05/06/2017 100 mg/dl* Negative Final - Urobilinogen, UA 05/06/2017 1.0 0.2 - 1.0 EU/dl Final - Nitrite, UA 05/06/2017 Positive* Negative Final - Leukocyte Esterase 05/06/2017 Moderate* Negative Final - RBC, UA 05/06/2017 50-100* <=5 Final - WBC, UA 05/06/2017 >100* <=5 Final - Bacteria, UA 05/06/2017 0-10 <=10 Final - Culture Ordered? 05/06/2017 Yes Final If Culture Ordered? is Yes, culture results will be available on-line within 24-48 hours. - MICROBIOLOGY FINAL REPORT 05/06/2017 >100,000 cfu/ml Escherichia coli* Final - Organism ID, Bacteria 05/06/2017 Escherichia coli* Final Assessment and Plan: Problem List Items Addressed This Visit None Visit Diagnoses Excoriation of right upper arm, initial encounter - Primary Relevant Medications mupirocin (BACTROBAN) 2 % cream Other headache syndrome Relevant Medications ketorolac (TORADOL) injection 60 mg (Completed) Preop examination Relevant Orders CBC auto differential Basic metabolic panel Protime-INR Activated partial thromboplastin time Nodule of left lung Relevant Orders CBC auto differential Basic metabolic panel Protime-INR Activated partial thromboplastin time 1. Preop examination prior to left upper lung biopsy-patient aware of risks and complicatioons including but not limited too infection/bleeding /pain/pneumothorax /admission requiring chest tube and or surgical consultation patient wishes to proceed and accepts these risks. Patient cleared for biopsy medically she is to finish current antibiotic. Ordered CBC, BMP, Protime-INR and activated partial thromboplastin time. - CBC auto differential; Future - Basic metabolic panel; Future - Protime-INR; Future - Activated partial thromboplastin time; Future 2. Nodule of left lung Ordered CBC, BMP, Protime-INR and activated partial thromboplastin time. - CBC auto differential; Future - Basic metabolic panel; Future - Protime-INR; Future 3. Excoriation of right upper arm, initial encounter The patient is advised to apply BACTROBAN 2 % cream 3 (three) times a day for 7 days. - mupirocin (BACTROBAN) 2 % cream; Apply topically 3 (three) times a day for 7 days. Dispense: 15 g; Refill: 0 4. Other headache syndrome e patient is advised to complete the course of Levaquin 750 mg. She received Toradol 60 mg injection in the clinic today. If she has fever, chills, or worsening of symptoms, then she is advised to call the clinic. - ketorolac (TORADOL) injection 60 mg; Inject 2 mL (60 mg total) into the muscle once. 5. Essential hypertension with goal blood pressure less than 140/90 Continue current medication therapy. Goal blood pressure 140/90 or better. Follow low salt diet as well as Dash Diet suggestions, aerobic exercise 30 minutes 5x weekly, keep weight close to ideal. 6. Chronic obstructive pulmonary disease, unspecified COPD type (HCC) 7. Nicotine dependence, uncomplicated, unspecified nicotine product type advised to quit I, Zak Patel, am scribing for and in the presence of Mike Ann Jr., MD. . I have read and agree with the documentation that has been completed regarding this visit and attest, that it is an accurate record of both my words and actions during the visit. . . MIKE ANN JR, CHI 2017-08-06 17:04:40 Attestation signed by Antony Gomez MD at 08/06/2017 8:44 PM The patient was seen and evaluated by the physician snuff drier. The case was reviewed with the physician snuff drier. I agree with their physical exam, findings, and plan. Lele eMERGENCY dEPARTMENT eNCOUnter CHIEF COMPLAINT/HPI Chief Complaint Patient presents with - Influenza-Like Illness congestion, cough, sore throat, body aches Ibis Tay is a 62 y.o. female who presents with complaints of headache, body aches, sore throat, runny nose cough with shortness of breath. She denies any fevers, chills, night sweats. Patient has a history of COPD. She states the cough is nonproductive. She is a smoker. Patient states that she has pain in her back and chest. She states pain is worse when she takes a deep breath. She has no risk factors for blood clots. No complaints of pain in her calves. No recent travel, no clotting dyscrasias, no hormone replacement. Patient states that she may have lung cancer because she had a lung biopsy but was never informed of the results. Patient states that she is trying to quit smoking. History is provided by patient. Relieving factors none. Severity of symptoms are severe. REVIEW OF SYSTEMS Review of Systems - General ROS: negative for - chills, fever or night sweats positive for body aches Ophthalmic ROS: negative for - eye redness, eye pain or loss of vision ENT ROS: Positive for - rhinorrhea or sore throat Respiratory ROS: Positive for - cough, shortness of breath negative wheezing Cardiovascular ROS: Positive for - chest pain negative syncope Gastrointestinal ROS: negative for - abdominal pain, constipation, diarrhea or nausea/vomiting Genito-Urinary ROS: negative for - dysuria or urinary frequency/urgency Musculoskeletal ROS: negative for - joint redness or swelling. Positive for back pain worse with deep inspiration. Neurological ROS: negative for - confusion, dizziness positive for headaches Dermatological ROS: negative for rash or skin changes. Psychological ROS: Alert, oriented *all systems reviewed and are otherwise negative* PAST MEDICAL HISTORY Past Medical History: Diagnosis Date - Anxiety - Anxiety - Arthritis - Breast mass 2013 rt axilla - Bronchitis - Bursitis Left hip - Cervical radiculopathy - COPD (chronic obstructive pulmonary disease) (HCC) - DDD (degenerative disc disease) - Depression - Dermatological disorder 01/25 irratative dermatitis from insect b ite - Esophageal stricture - Generalized anxiety disorder - GERD (gastroesophageal reflux disease) - H. pylori infection Hx of H pylori infection several months ago treated with medication,no current issues. - H/O pyloric stenosis - Hiatal hernia - HTN (hypertension) - Hypercholesteremia - Hyperlipidemia No current medications or issues. - OA (osteoarthritis) of knee - Palpitations with anxiety - Pneumonia 1994 - Spinal stenosis SURGICAL HISTORY Past Surgical History: Procedure Laterality Date - ESOPHAGEAL DILATION - LUMBAR FUSION 1995 - CO TOTAL KNEE ARTHROPLASTY Right 05/28/2014 Procedure: REPLACEMENT TOTAL JOINT KNEE RIGHT / BETO ; Surgeon: Isaak Moncada MD; Location: [facility] OR; Service: Orthopedics - TENDON RELEASE Right arm - TOTAL HIP ARTHROPLASTY Left 09/26/14 hip hemiarthoplasty - TOTAL KNEE ARTHROPLASTY Left 11/23 - TUBAL LIGATION ALLERGIES Allergies Allergen Reactions - Penicillins Anaphylaxis - Gabapentin Other (See Comments) severe fatigue - Sulfa (Sulfonamide Antibiotics) Other (See Comments) Blisters inside and outside of mouth. - Wellbutrin [Bupropion Hcl] Other (See Comments) Body numbness and tingling HOME MEDICATIONS Prior to Admission medications Medication Sig Start Date End Date Taking? Authorizing Provider ACIDOPHILUS-PECTIN 75 million cell -100 mg Capsule TAKE ONE CAPSULE BY MOUTH TWICE A DAY 07/07/17 Mike Ann Jr., MD alendronate (FOSAMAX) 70 MG tablet Take on empty stomach once weekly sitting upright for full hour after taking with big glass of water. No other meds or food for 1 hour 01/28/17 Mike Ann Jr., MD ALPRAZolam (XANAX) 1 MG tablet Take 1 tablet (1 mg total) by mouth 4 (four) times a day as needed. FOR ANXIETY 07/25/17 Jojo Freire APRN atorvastatin (LIPITOR) 20 MG tablet Take 1 tablet (20 mg total) by mouth once daily. 04/15/17 04/15/18 Mike R Naveen Jr., MD camphor-menthol (SARNA ANTI-ITCH) lotion Apply topically as needed for itching. 01/24/15 BETHEL Trinidad cholecalciferol (VITAMIN D3) 5,000 unit Tablet Take 1 tablet (5,000 Units total) by mouth once daily. 02/08/17 Mike Ann Jr., MD diaper,brief,adult,disposable Misc 1 application by Miscellaneous route 2 (two) times a day. 12/01/15 Mike Ann Jr., MD escitalopram oxalate (LEXAPRO) 20 MG tablet Take 1 tablet (20 mg total) by mouth once daily. 11/12/16 Jojo Freire APRN FLOVENT DISKUS 250 mcg/actuation Disk with Device INHALE ONE PUFF BY MOUTH TWICE A DAY, RINSE MOUTH AFTER USE 07/07/17 Mike Ann Jr., MD fluticasone (FLONASE) 50 mcg/actuation nasal spray 2 sprays by Each Nostril route once daily. 09/17/16 09/17/17 Mike Ann Jr., MD food supplemt, lactose-reduced (ENSURE) Liquid Drink 2 bottles per day. Patient requests strawberry. 11/19/16 Mike Ann Jr., MD guaiFENesin 200 mg tablet TAKE THREE TABLETS BY MOUTH TWICE A DAY FOR 10 DAYS 07/07/17 Mike Ann Jr., MD hydroCHLOROthiazide (HYDRODIURIL) 25 MG tablet Take 1 tablet (25 mg total) by mouth once daily. 06/08/17 Mike Ann Jr., MD ipratropium-albuterol (DUO-NEB) 0.5-2.5 mg/3 mL nebulizer NEBULIZE ONE VIAL BY MOUTH FOUR TIMES A DAY 01/06/17 Mike Ann Jr., MD lamoTRIgine (LAMICTAL) 150 MG tablet Take 1 tablet (150 mg total) by mouth 2 (two) times a day. 0900 and 1500 07/25/17 Jojo Freire APRN lisinopril (PRINIVIL,ZESTRIL) 10 MG tablet Take 1 tablet (10 mg total) by mouth once daily. 04/11/17 Mike Ann Jr., MD mirtazapine (REMERON) 45 MG tablet Take 1 tablet (45 mg total) by mouth daily every night. 07/25/17 Jojo Freire APRN montelukast (SINGULAIR) 10 mg tablet TAKE ONE TABLET BY MOUTH EVERY EVENING 04/13/17 Mike Ann Jr., MD nicotine (NICODERM CQ) 21 mg/[address] 1 patch onto the skin once daily. 07/09/17 Mike Ann Jr., MD nystatin (MYCOSTATIN) 100,000 unit/mL suspension Take 5 mL (500,000 Units total) by mouth 4 (four) times a day. 07/09/17 Mike Ann Jr., MD omeprazole (PRILOSEC) 40 MG capsule TAKE ONE CAPSULE BY MOUTH DAILY 12/15/16 Mike Ann Jr., MD ondansetron (ZOFRAN ODT) 4 MG disintegrating tablet Take 1 tablet (4 mg total) by mouth every 8 (eight) hours as needed for nausea / vomiting. 03/04/17 TELMA Spain oxyCODONE-acetaminophen (PERCOCET) 10-325 mg tablet Take 0.5-1 tablets by mouth 3 (three) times a day as needed for pain. Do Not Fill Prior to START Date To Last 30days. No early refills Max Daily Amount: 3 tablets 08/01/17 Isaías Cardenas MD oxyCODONE-acetaminophen (PERCOCET) 10-325 mg tablet Take 0.5-1 tablets by mouth 3 (three) times a day as needed for pain. Do Not Fill Prior to START Date To Last 30days. No early refills Max Daily Amount: 3 tablets 08/31/17 Isaías Cardenas MD potassium chloride (KLOR-CON) 10 MEQ CR tablet Take 1 tablet (10 mEq total) by mouth 2 (two) times a day. 01/28/17 Mike Ann Jr., MD prazosin (MINIPRESS) 2 MG capsule Take 2 capsules (4 mg total) by mouth daily every night. 07/25/17 Jojo Freire APRN predniSONE (DELTASONE) 20 MG tablet Take 1 tablet (20 mg total) by mouth 2 (two) times a day. 07/23/17 Raad Tidwell MD PROAIR HFA 90 mcg/actuation inhaler INHALE TWO PUFFS BY MOUTH FOUR TIMES A DAY 05/12/17 Mike Ann Jr., MD QUEtiapine (SEROQUEL) 200 MG tablet Take one tab at night 07/25/17 Jojo Freire APRN QUEtiapine (SEROQUEL) 50 MG tablet Take one tab in the morning and one tab in the afternoon. 07/25/17 Jojo Freire APRN SENNALAX-S 8.6-50 mg TAKE TWO TABLETS BY MOUTH TWICE A DAY 12/08/16 Mike Ann Jr., MD underpads Pad Use as needed for incontinence 04/30/17 Mike Ann Jr., MD FAMILY HISTORY Family History Problem Relation Age of Onset - Other Other Hx: Yes Dx: Diabetes Fam Mem: Family h/o - Drug abuse Other - Other Other Hx: Yes Dx: Hypertension Fam Mem: Mother - Drug abuse Other - Hypertension Mother - Heart disease Mother - Diabetes Mother - No Known Problem Father - Other Sister - Cancer Sister - Other Other Hx: Yes Dx: Heart disease Fam Mem: Mother - Diabetes Maternal Grandmother SOCIAL HISTORY Social History Social History - Marital status: Single Spouse name: N/A - Number of children: N/A - Years of education: 14 Social History Main Topics - Smoking status: Current Every Day Smoker Packs/day: 1.50 Years: 44.00 Types: Cigarettes - Smokeless tobacco: Current User - Alcohol use No - Drug use: No - Sexual activity: Not Asked Other Topics Concern - None Social History Narrative PHYSICAL EXAM VITAL SIGNS: BP 106/41 Pulse 82 Temp 36.9 C (98.4 F) (Oral) Resp 22 Ht 5' 2 (1.575 m) Wt 70.3 kg (155 lb) SpO2 94% BMI 28.35 kg/m2 Constitutional: Well developed, well nourished, no acute distress, non-toxic appearance. Head: Atraumatic, normocephalic. Eyes: No eye redness, no discharge. No periorbital edema HENT: Mucous membranes pink and moist. No Stridor. Bilateral tympanic membranes pearly garcia with no effusions. No drainage. Throat slightly erythematous with clear drainage. Positive for rhinorrhea. NECK: Trachea midline. No JVD. Normal ROM. No meningeal signs. Respiratory: No respiratory distress, breathing nonlabored. Lung sounds clear. Cardiovascular: Good peripheral perfusion, extremities pink. Musculoskeletal: Extremities normal inspection, normal range of motion. No peripheral edema. No calf swelling or tenderness. No palpable cords. Chest nontender on palpation. Bilateral Homans sign negative Back -Normal range of motion. Integument: Skin pink, warm, and dry. No rash. Neurologic: Alert, appropriate, oriented to person, place and time. Lymphatic: No cervical adenopathy Psych: Alert and oriented x3. EKG Sinus rhythm with PACs per Dr. Gomez. Ventricular rate 87, CO interval 134, QRS duration 82, QT/QTC 396/470 RADIOLOGY/PROCEDURES ED Imaging Results & Wet Read CT Angiogram Chest with and or without IV Contrast (Final result) Result time: 08/06/17 19:12:53 Final result by Reddy Plaza MD (08/06/17 19:12:53) Impression: 1. No evidence for pulmonary embolism. 2. Changes of bilateral areas of interstitial infiltrates. Findings may represent some component of interstitial pneumonitis. 3. Enlarging pleural-based nodule within the left upper lobe now measuring 1.5 cm. Findings are suspicious for malignancy. Narrative: REASON FOR EXAM: Cough, congestion, back pain DISCUSSION: CT of the chest with pulmonary angiography was done according to our standard protocol for suspected pulmonary embolism. A noncontrast intravenous bolus tracking scan was done during injection to trigger initiation of the scan with optimal enhancement of the pulmonary arteries. 100 cc of Isovue 370 contrast material was administered IV with a power injector at a flow rate of 4cc per second. Maximum intensity projection (MIP) angiographic images were reconstructed and archived at 3mm intervals in the coronal plane. Axial images were reconstructed and archived at 3 mm intervals. Study was compared to prior exam from July 03, 2017 Evaluation of the pulmonary arteries demonstrates good opacification with contrast. There is no filling defect to indicate underlying pulmonary embolism. There is calcification of the aorta. No dissection or aneurysmal dilatation. Heart size is enlarged and stable. No pericardial effusion. The area of previous mass seen within the left upper lobe is reidentified measuring 1.5 cm in size. This is along the pleura. Consideration of biopsy. The lungs demonstrate areas of bilateral areas of interstitial infiltrates within the upper and lower lung butterfield. Findings can be seen with elements of interstitial pneumonitis. No significant pleural effusion. There is degenerative spondylosis of the spine. LABS ED Lab Results Procedure Component Value Ref Range Date/Time CBC auto differential [[id number]] (Abnormal) Collected: 08/06/171715 Order Status: Completed Specimen: Blood Updated: 08/06/171725 WBC 4.8 4.0 - 12.0 k/ul RBC 4.17 3.50 - 5.30 m/ul Hemoglobin 11.8 (L) 12.0 - 16.0 gm/dl Hematocrit 36.2 36.0 - 48.0 % MCV 87 80 - 100 fl MCH 28.3 26.0 - 34.0 pg MCHC 32.6 30.0 - 37.0 gm/dl RDW 14.8 11.5 - 15.0 % Platelet Count 213 140 - 440 k/ul MPV 10.4 8.5 - 12.5 fl Neutrophils % 62 % Immature Granulocytes % 0 % Lymphs % 28 % Monocytes % 8 % Eosinophils Percent 2 % Basophils Percent 0 % Neutrophils Abs 3.0 1.5 - 8.0 k/ul Immature Granulocytes Abs 0.0 0.0 - 0.1 k/ul Lymphs Abs 1.3 1.0 - 4.5 k/ul Monocytes Abs 0.4 0.1 - 1.1 k/ul Eosinophils Absolute 0.1 0.0 - 0.4 k/ul Basophils Absolute 0.0 0.0 - 0.1 k/ul Comprehensive metabolic panel [[id number]] (Abnormal) Collected: 08/06/171715 Order Status: Completed Specimen: Blood Updated: 08/06/171744 Glucose 99 70 - 100 mg/dl BUN 11 6 - 24 mg/dl Creatinine 0.84 0.50 - 1.10 mg/dl Sodium 141 135 - 145 mmol/L Potassium 3.4 (L) 3.7 - 5.1 mmol/L Chloride 105 96 - 110 mmol/L CO2 32.0 22.0 - 32.0 mmol/L Anion Gap 7 <=20 mmol/L Calcium 8.5 8.5 - 10.5 mg/dl Total Protein 6.7 6.0 - 8.4 gm/dl Albumin 3.3 (L) 3.5 - 5.0 gm/dl Globulin 3.4 2.0 - 4.4 gm/dl AST 14 10 - 40 u/l Alkaline Phosphatase 85 33 - 138 u/l Total Bilirubin 0.3 0.0 - 1.5 mg/dl ALT 26 12 - 78 u/l GFR MDRD Af Amer 85 (L) >=90 mL/min/1.73 m2 GFR MDRD Non Af Amer 73 (L) >=90 mL/min/1.73 m2 Troponin I [[id number]] Collected: 08/06/171715 Order Status: Completed Updated: 08/06/171744 Troponin I <0.04 <=0.04 ng/mL D-dimer, quantitative [[id number]] Collected: 08/06/171714 Order Status: Completed Specimen: Blood Updated: 08/06/171738 D-Dimer Quantitative 0.97 mg/L FEU ED COURSE & MEDICAL DECISION MAKING Pertinent Labs & Imaging studies reviewed. (See chart for details) patient is here with multiple complaints onset 2 days ago. She complains of headache, body aches, sore throat, cough with increased shortness of breath which is worse with painful deep inspiration. Patient is a smoker. She has a history of COPD. Patient states she has pain in her back and chest with deep inspiration. She denies any history of blood clots or factors. Bilateral Homans sign negative. Patient requests morphine for pain. She was given DuoNeb treatment. All vitals within normal limits. There was no medical or psychological emergency at the time of exam. The patient states that she recently had a PET scan which showed a spot on her lung. She states that they did a biopsy but she does not know the results of the biopsy. EKG shows sinus rhythm with PACs per Dr. Gomez. CBC unremarkable potassium 3.4. Patient was given 40 mEq of K-Dur by mouth. Troponin negative. CT chest 1. No evidence for pulmonary embolism. 2. Changes of bilateral areas of interstitial infiltrates. Findings may represent some component of interstitial pneumonitis. 3. Enlarging pleural-based nodule within the left upper lobe now measuring 1.5 cm. Findings are suspicious for malignancy Patient was given a dose of Levaquin 750 mg by mouth. She was dismissed with a prescription for Robitussin-AC, Levaquin, Percocet. She was instructed not to take the Robitussin-AC and the Percocet at the same time. She was instructed to follow-up with her primary doctor on Tuesday. She was instructed to return if increased shortness of breath or pain. The patient agrees with plan of care. There was no medical or psychological emergency at the time the exam. CT chest shows pneumonitis and nodule of the left upper lobe. The patient has already had a biopsy of the nodule and is currently awaiting results. Vitals: 08/06/17 1719 08/06/17 1738 08/06/17 1900 08/06/17 1930 BP: 123/63 106/41 BP Location: Patient Position: Pulse: 84 85 82 Resp: 24 22 22 Temp: TempSrc: SpO2: 95% 95% 93% 94% Weight: Height: MEDICATIONS ADMINISTERED IN THE EMERGENCY DEPARTMENT Administered Meds Date/Time Order Dose Route Action Comments 08/06/2017 1719 ipratropium-albuterol (DUO-NEB) 0.5-2.5 mg/3 mL nebulizer solution 3 mL 3 mL Nebulization Given 08/06/2017 1730 morphine (INFUMORPH) injection 6 mg 6 mg IntraMuscular Given 08/06/2017 1811 potassium chloride SA (K-DUR,KLOR-CON) CR tablet 40 mEq Oral Given 08/06/2017 1812 morphine 4 mg/mL syringe 4 mg 4 mg IntraVENous Given 08/06/2017 1837 iopamidol (ISOVUE-370) 76 % injection 100 mL 100 mL IntraVENous Given 08/06/2017 1924 morphine 4 mg/mL syringe 4 mg 4 mg IntraVENous Given 08/06/2017 1943 levoFLOXacin (LEVAQUIN) tablet 750 mg Oral Given DISMISSAL PRESCRIPTIONS Current Discharge Medication List START taking these medications Details codeine-guaiFENesin (ROBITUSSIN AC) 10-100 mg/5 mL oral liquid Take 10 mL by mouth 3 (three) times a day as needed for cough for up to [address] after taking. It may make you tired. Max Daily Amount: 30 mL Qty: 150 mL, Refills: 0 levoFLOXacin (LEVAQUIN) 750 MG tablet Take 1 tablet (750 mg total) by mouth once daily for 10 days. Qty: 9 tablet, Refills: 0 oxyCODONE-acetaminophen (PERCOCET) 5-325 mg tablet Take 1 tablet by mouth once every 4 (four) hours as needed for pain for up to 20 doses. Max Daily Amount: 6 tablets Qty: 20 tablet, Refills: 0 Comments: No work or driving if taking. DISMISSAL INSTRUCTIONS Contact information for follow-up Mike Ann Jr, MD Specialty: Family Medicine Relationship: PCP - General [facility] [address] [facility] [address] [place] [address] Instructions: Tuesday for recheck. Return to the ER if increase shortness of breath or pain. Prescription for Percocet, Robitussin-AC, Levaquin. DIAGNOSIS: 1. Pneumonitis Discharge [1] *This note was compiled in part using Pegg'd voice recognition technology. The note may contain topographical, grammatical, and voice recognition errors* TELMA Spain 08/06/172028 Antony Gomez MD 08/06/172043 [facility] 2017-08-04 12:31:08 We have the pt's ord er in [facility] for the lung biopsy however we need you to place the correct order in [facility] The correct order in [facility] is CT biopsy and once you open the order up you will pick lung If any questions call us in [facility] [phone] Thanks DANILO RAINA GLORIA 2017-08-01 07:40:00 OFFICE VISIT CHIEF COMPLAINT Neck Pain SUBJECTIVE Ibis Tay is a 62 y.o. female who presents for follow-up of Neck Pain with diagnosis of: 1. cervical stenosis with radiculopathy. 2. 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 Headaches With last encounter we rotated back to the percocet 10/325 0.5-1 po tid and she notes the pain is not as well controlled as wehen she was taking 4/day. She states that with the recent severe weather she has been having a flare up of her arthritis. She states that the shoulder and joints are hurting the most. She denies adverse side effects noting no nausea sedation somnolence or altered mentation. She states that her mobility is decreased and her blood pressure is up due to the pain. She notes the recent cervical WAQAR in SEP 2016 noting >50% relief lasting 3mos and would like to repeat her Cervical WAQAR this fall. Patient currently is on Percocet 10/325 0.5-1 po tid states the medication is not effective giving the average pain rating of: 10/10 and feels that the pain is not manageable. New or changing adverse side effects:none New or changing pain complaints:none Other concerns: none ROS Constitutional: denies dizziness, sedation, or somnolence Psychological: denies altered mentation or euphoria GI: deniesconstipation or diarrhea Musc: denies acute change in numbness, weakness, or tingling of extemities MEDICATIONS Current Outpatient Prescriptions Medication Sig Dispense Refill - ACIDOPHILUS-PECTIN 75 million cell -100 mg Capsule TAKE ONE CAPSULE BY MOUTH TWICE A DAY 60 capsule 0 - alendronate (FOSAMAX) 70 MG tablet Take on empty stomach once weekly sitting upright for full hour after taking with big glass of water. No other meds or food for 1 hour 4 tablet 11 - ALPRAZolam (XANAX) 1 MG tablet Take 1 tablet (1 mg total) by mouth 4 (four) times a day as needed. FOR ANXIETY 120 tablet 3 - atorvastatin (LIPITOR) 20 MG tablet Take 1 tablet (20 mg total) by mouth once daily. 90 tablet 0 - camphor-menthol (SARNA ANTI-ITCH) lotion Apply topically as needed for itching. 222 mL 0 - cholecalciferol (VITAMIN D3) 5,000 unit Tablet Take 1 tablet (5,000 Units total) by mouth once daily. 30 tablet 11 - diaper,brief,adult,disposable Misc 1 application by Miscellaneous route 2 (two) times a day. 96 each 5 - escitalopram oxalate (LEXAPRO) 20 MG tablet Take 1 tablet (20 mg total) by mouth once daily. 90 tablet 1 - FLOVENT DISKUS 250 mcg/actuation Disk with Device INHALE ONE PUFF BY MOUTH TWICE A DAY, RINSE MOUTH AFTER USE 60 each 5 - fluticasone (FLONASE) 50 mcg/actuation nasal spray 2 sprays by Each Nostril route once daily. 16 g 12 - food supplemt, lactose-reduced (ENSURE) Liquid Drink 2 bottles per day. Patient requests strawberry. 06124 mL PRN - guaiFENesin 200 mg tablet TAKE THREE TABLETS BY MOUTH TWICE A DAY FOR 10 DAYS 60 tablet 0 - hydroCHLOROthiazide (HYDRODIURIL) 25 MG tablet Take 1 tablet (25 mg total) by mouth once daily. 30 tablet 5 - ipratropium-albuterol (DUO-NEB) 0.5-2.5 mg/3 mL nebulizer NEBULIZE ONE VIAL BY MOUTH FOUR TIMES A DAY 360 vial 1 - lamoTRIgine (LAMICTAL) 150 MG tablet Take 1 tablet (150 mg total) by mouth 2 (two) times a day. 0900 and 1500 60 tablet 3 - lisinopril (PRINIVIL,ZESTRIL) 10 MG tablet Take 1 tablet (10 mg total) by mouth once daily. 90 tablet 2 - mirtazapine (REMERON) 45 MG tablet Take 1 tablet (45 mg total) by mouth daily every night. 90 tablet 1 - montelukast (SINGULAIR) 10 mg tablet TAKE ONE TABLET BY MOUTH EVERY EVENING 30 tablet 4 - nicotine (NICODERM CQ) 21 mg/[address] 1 patch onto the skin once daily. 28 patch 1 - nystatin (MYCOSTATIN) 100,000 unit/mL suspension Take 5 mL (500,000 Units total) by mouth 4 (four) times a day. 200 mL 0 - omeprazole (PRILOSEC) 40 MG capsule TAKE ONE CAPSULE BY MOUTH DAILY 30 capsule 11 - ondansetron (ZOFRAN ODT) 4 MG disintegrating tablet Take 1 tablet (4 mg total) by mouth every 8 (eight) hours as needed for nausea / vomiting. 12 tablet 0 - oxyCODONE-acetaminophen (PERCOCET) 10-325 mg tablet Take 0.5-1 tablets by mouth 3 (three) times a day as needed for pain. Do Not Fill Prior to START Date To Last 30days. No early refills Max Daily Amount: 3 tablets 90 tablet 0 - [START ON 08/31/2017] oxyCODONE-acetaminophen (PERCOCET) 10-325 mg tablet Take 0.5-1 tablets by mouth 3 (three) times a day as needed for pain. Do Not Fill Prior to START Date To Last 30days. No early refills Max Daily Amount: 3 tablets 90 tablet 0 - potassium chloride (KLOR-CON) 10 MEQ CR tablet Take 1 tablet (10 mEq total) by mouth 2 (two) times a day. 30 tablet 6 - prazosin (MINIPRESS) 2 MG capsule Take 2 capsules (4 mg total) by mouth daily every night. 180 capsule 1 - predniSONE (DELTASONE) 20 MG tablet Take 1 tablet (20 mg total) by mouth 2 (two) times a day. 8 tablet 0 - PROAIR HFA 90 mcg/actuation inhaler INHALE TWO PUFFS BY MOUTH FOUR TIMES A DAY 8.5 each 5 - QUEtiapine (SEROQUEL) 200 MG tablet Take one tab at night 30 tablet 3 - QUEtiapine (SEROQUEL) 50 MG tablet Take one tab in the morning and one tab in the afternoon. 30 tablet 3 - SENNALAX-S 8.6-50 mg TAKE TWO TABLETS BY MOUTH TWICE A DAY 120 tablet 10 - underpads Pad Use as needed for incontinence 300 each 10 No current facility-administered medications for this visit. ALLERGIES Allergies Allergen Reactions - Penicillins Anaphylaxis - Gabapentin Other (See Comments) severe fatigue - Sulfa (Sulfonamide Antibiotics) Other (See Comments) Blisters inside and outside of mouth. - Wellbutrin [Bupropion Hcl] Other (See Comments) Body numbness and tingling PHYSICAL EXAM Vital Signs: BP 118/69 (BP Location: Left arm) Pulse 103 Resp 14 Wt 73.5 kg (162 lb) BMI 28.7 kg/m2 Constitutional: Well nourished, well groomed, NAD. CARDIAC: Regular Rate LUNGS: Breathing nonlabored, no wheezing Neurologic: Alert & oriented x 3, normal gait, no focal deficits noted. Psychiatric: Affect normal, judgment normal, mood normal. Other Affected BA/OS: Neck pain with extension, pain radiating To LUE with parasthesias. ASSESSMENT AND PLAN Problem List Items Addressed This Visit None Visit Diagnoses Cervical stenosis of spine Relevant Medications oxyCODONE-acetaminophen (PERCOCET) 10-325 mg tablet oxyCODONE-acetaminophen (PERCOCET) 10-325 mg tablet (Start on 08/31/2017) Failed back syndrome Relevant Medications oxyCODONE-acetaminophen (PERCOCET) 10-325 mg tablet oxyCODONE-acetaminophen (PERCOCET) 10-325 mg tablet (Start on 08/31/2017) 2. LEFT Hip fracture 3. Low back pain Requested Prescriptions Signed Prescriptions Disp Refills - oxyCODONE-acetaminophen (PERCOCET) 10-325 mg tablet 90 tablet 0 Sig: Take 0.5-1 tablets by mouth 3 (three) times a day as needed for pain. Do Not Fill Prior to START Date To Last 30days. No early refills Max Daily Amount: 3 tablets - oxyCODONE-acetaminophen (PERCOCET) 10-325 mg tablet 90 tablet 0 Sig: Take 0.5-1 tablets by mouth 3 (three) times a day as needed for pain. Do Not Fill Prior to START Date To Last 30days. No early refills Max Daily Amount: 3 tablets PLAN: 1. cervical stenosis with radiculopathy. Worsening. I will continue her on oxycodone 10/325 TID and will schedule her for repeat cervical WAQAR. When she is ready 2. OA of bilateral Hip with h/o partial hip replacement on the Left : Stable 3. Headaches - Stable complaint and may be secondary to her cervicalgia. 4. Opiate induced constipation: She has had increasing difficulty with constipation and did have to go to the ER. She has tried and failed diet modification, OTC stool softener without significant improvement. The patient indicates understanding of these issues and agrees with the plan. I reviewed the patient's medical information and medical history. I have reviewed the past medical, family, and social history sections including the medications and allergies listed in the above medical record. Electronically signed by: Isaías Cardenas, 08/01/2017 8:13 AM [facility] 2017-07-25 17:21:00 ED follow up call sharla bryant to pt today. She reports that she is feeling better. She states that she picked up both the prednisone and the antibiotic from the pharmacy and was taking. Encouraged her to finish the entire course of the antibx. Pt verbalized understanding. She is scheduled to follow up with pulmonary next week. [facility] 2017-07-25 14:00:00 Psychiatry - Progres s Note Physician: Jojo Freire APRN Name: Ibis Tay : 1955 Age: 62 y.o. Date of Service: 07/25/2017 PCP: Mike Ann Jr Chief Complaint Patient presents with - Medication Management - Depression - Anxiety HISTORY OF PRESENT ILLNESS: Ibis Tay is a 62 y.o. female who presents today for follow-up for medication management. The primary encounter diagnosis was Major depressive disorder, recurrent episode, moderate (HCC). Diagnoses of Generalized anxiety disorder, PTSD (post-traumatic stress disorder), and Insomnia due to mental condition were also pertinent to this visit. Since the last encounter, symptoms are gradually worsening. Symptoms were gradual starting a few years ago and rated as severe. Currently, symptoms are causing impairment in day to day functioning. Associated symptoms include anxiety, depression and sleep disturbance. Clinical condition is gradually worsening. Precipitating events include financial burdens, chronic pain/pain management and medical issues over the last 6 weeks. MEDICAL, FAMILY, AND SOCIAL HISTORY Past Medical, Family, and Social History: (Pertinent = 1-2 history areas; Complete = 2-3 history areas) PAST MEDICAL / PSYCHIATRIC HISTORY REVIEWED Past Medical History: Diagnosis Date - Anxiety - Anxiety - Arthritis - Breast mass 2013 rt axilla - Bronchitis - Bursitis Left hip - Cervical radiculopathy - COPD (chronic obstructive pulmonary disease) (HCC) - DDD (degenerative disc disease) - Depression - Dermatological disorder 01/25 irratative dermatitis from insect b ite - Esophageal stricture - Generalized anxiety disorder - GERD (gastroesophageal reflux disease) - H. pylori infection Hx of H pylori infection several months ago treated with medication,no current issues. - H/O pyloric stenosis - Hiatal hernia - HTN (hypertension) - Hypercholesteremia - Hyperlipidemia No current medications or issues. - OA (osteoarthritis) of knee - Palpitations with anxiety - Pneumonia 1994 - Spinal stenosis family history includes Cancer in her sister; Diabetes in her maternal grandmother and mother; Drug abuse in her other and other; Heart disease in her mother; Hypertension in her mother; No Known Problem in her father; Other in her other, other, other, and sister. PAST MEDICATIONS Current Outpatient Prescriptions on File Prior to Visit Medication Sig Dispense Refill - ACIDOPHILUS-PECTIN 75 million cell -100 mg Capsule TAKE ONE CAPSULE BY MOUTH TWICE A DAY 60 capsule 0 - alendronate (FOSAMAX) 70 MG tablet Take on empty stomach once weekly sitting upright for full hour after taking with big glass of water. No other meds or food for 1 hour 4 tablet 11 - atorvastatin (LIPITOR) 20 MG tablet Take 1 tablet (20 mg total) by mouth once daily. 90 tablet 0 - camphor-menthol (SARNA ANTI-ITCH) lotion Apply topically as needed for itching. 222 mL 0 - cholecalciferol (VITAMIN D3) 5,000 unit Tablet Take 1 tablet (5,000 Units total) by mouth once daily. 30 tablet 11 - diaper,brief,adult,disposable Misc 1 application by Miscellaneous route 2 (two) times a day. 96 each 5 - doxycycline (VIBRA-TABS) 100 MG tablet Take 1 tablet (100 mg total) by mouth 2 (two) times a day for 7 days. 14 tablet 0 - escitalopram oxalate (LEXAPRO) 20 MG tablet Take 1 tablet (20 mg total) by mouth once daily. 90 tablet 1 - FLOVENT DISKUS 250 mcg/actuation Disk with Device INHALE ONE PUFF BY MOUTH TWICE A DAY, RINSE MOUTH AFTER USE 60 each 5 - fluticasone (FLONASE) 50 mcg/actuation nasal spray 2 sprays by Each Nostril route once daily. 16 g 12 - food supplemt, lactose-reduced (ENSURE) Liquid Drink 2 bottles per day. Patient requests strawberry. 03228 mL PRN - guaiFENesin 200 mg tablet TAKE THREE TABLETS BY MOUTH TWICE A DAY FOR 10 DAYS 60 tablet 0 - hydroCHLOROthiazide (HYDRODIURIL) 25 MG tablet Take 1 tablet (25 mg total) by mouth once daily. 30 tablet 5 - ipratropium-albuterol (DUO-NEB) 0.5-2.5 mg/3 mL nebulizer NEBULIZE ONE VIAL BY MOUTH FOUR TIMES A DAY 360 vial 1 - lisinopril (PRINIVIL,ZESTRIL) 10 MG tablet Take 1 tablet (10 mg total) by mouth once daily. 90 tablet 2 - montelukast (SINGULAIR) 10 mg tablet TAKE ONE TABLET BY MOUTH EVERY EVENING 30 tablet 4 - nicotine (NICODERM CQ) 21 mg/[address] 1 patch onto the skin once daily. 28 patch 1 - nystatin (MYCOSTATIN) 100,000 unit/mL suspension Take 5 mL (500,000 Units total) by mouth 4 (four) times a day. 200 mL 0 - omeprazole (PRILOSEC) 40 MG capsule TAKE ONE CAPSULE BY MOUTH DAILY 30 capsule 11 - ondansetron (ZOFRAN ODT) 4 MG disintegrating tablet Take 1 tablet (4 mg total) by mouth every 8 (eight) hours as needed for nausea / vomiting. 12 tablet 0 - oxyCODONE-acetaminophen (PERCOCET) 10-325 mg tablet Take 0.5-1 tablets by mouth 3 (three) times a day as needed for pain. Do Not Fill Prior to START Date To Last 30days. No early refills Max Daily Amount: 3 tablets 90 tablet 0 - potassium chloride (KLOR-CON) 10 MEQ CR tablet Take 1 tablet (10 mEq total) by mouth 2 (two) times a day. 30 tablet 6 - predniSONE (DELTASONE) 20 MG tablet Take 1 tablet (20 mg total) by mouth 2 (two) times a day. 8 tablet 0 - PROAIR HFA 90 mcg/actuation inhaler INHALE TWO PUFFS BY MOUTH FOUR TIMES A DAY 8.5 each 5 - SENNALAX-S 8.6-50 mg TAKE TWO TABLETS BY MOUTH TWICE A DAY 120 tablet 10 - underpads Pad Use as needed for incontinence 300 each 10 - [DISCONTINUED] ALPRAZolam (XANAX) 1 MG tablet TAKE ONE TABLET BY MOUTH FOUR TIMES A DAY NEEDED FOR ANXIETY 120 tablet 1 - [DISCONTINUED] lamoTRIgine (LAMICTAL) 150 MG tablet Take 150 mg by mouth 2 (two) times a day. 0900 and 1500 - [DISCONTINUED] lamoTRIgine (LAMICTAL) 200 MG tablet Take 1 tablet (200 mg total) by mouth once daily. FOR MOOD in the evening 30 tablet 4 - [DISCONTINUED] mirtazapine (REMERON) 45 MG tablet Take 1 tablet (45 mg total) by mouth daily every night. 90 tablet 1 - [DISCONTINUED] prazosin (MINIPRESS) 2 MG capsule Take 2 capsules (4 mg total) by mouth daily every night. 180 capsule 1 - [DISCONTINUED] QUEtiapine (SEROQUEL) 100 MG tablet Take one tab (100 mg) in the morning, one tab (100 mg) in the afternoon and two tabs (200 mg) at night. 90 tablet 3 - [DISCONTINUED] QUEtiapine (SEROQUEL) 50 MG tablet Take one tab in the morning and one tab in the afternoon. 90 tablet 3 No current facility-administered medications on file prior to visit. ALLERGIES Allergies Allergen Reactions - Penicillins Anaphylaxis - Gabapentin Other (See Comments) severe fatigue - Sulfa (Sulfonamide Antibiotics) Other (See Comments) Blisters inside and outside of mouth. - Wellbutrin [Bupropion Hcl] Other (See Comments) Body numbness and tingling Additional details to note regarding Ibis's medical history or recent changes include: No other details to note. FAMILY/SOCIAL HISTORY REVIEWED Family History Problem Relation Age of Onset - Other Other Hx: Yes Dx: Diabetes Fam Mem: Family h/o - Drug abuse Other - Other Other Hx: Yes Dx: Hypertension Fam Mem: Mother - Drug abuse Other - Hypertension Mother - Heart disease Mother - Diabetes Mother - No Known Problem Father - Other Sister - Cancer Sister - Other Other Hx: Yes Dx: Heart disease Fam Mem: Mother - Diabetes Maternal Grandmother Social History Social History - Marital status: Single Spouse name: N/A - Number of children: N/A - Years of education: 14 Social History Main Topics - Smoking status: Current Every Day Smoker Packs/day: 1.50 Years: 44.00 Types: Cigarettes - Smokeless tobacco: Current User - Alcohol use No - Drug use: No - Sexual activity: Not Asked Other Topics Concern - None Social History Narrative Additional details to note regarding Ibis's Family or Social history or recent changes include: No other details to note. SUBSTANCE USE HISTORY REVIEWED: History Alcohol Use No History Drug Use No History Smoking Status - Current Every Day Smoker - Packs/day: 1.50 - Years: 44.00 - Types: Cigarettes Smokeless Tobacco - Current User Additional details to note regarding [place] substance use history or recent changes include: No other details to note. REVIEW OF CURRENT SYSTEMS (Updated each Encounter) Review of Systems: (Pertinent = 1 System Reviewed; Extended = 2-9 Systems Reviewed; Complete = 10 or more Systems Reviewed or pertinent positives noted and all other systems negative. Review of Systems: General: No fever or chills ENT ROS: negative Cardiovascular ROS: no chest pain or dyspnea on exertion Respiratory ROS: positive for - pneumonia over the last months. Musculoskeletal ROS: positive for - neck, back and chest pain Reported side effects from Medications include: none Sleep Problems: Not Assessed During This Visit Patient Denied Sleep Problems Sleep: has interrupted sleep and awakens early VITALS Blood Pressure: 118/68 Pulse: 90 Respiratory: 24 Weight: 73.5 kg (162 lb) Temp: MENTAL STATUS EXAM (Updated each Encounter) Mental Status Exam: General Appearance, Behavior, and Attitude: age appropriate, casually dressed, appears stated age, cooperative and engages well Gait and Station: steady Muscle Strength and Tone: WNL Mood is anxious and depressed Affect is mood congruent. Language: fluent production Speech: normal pitch and normal volume Fund of Knowledge is normal for age Thought Process: normal Thought Association: logical Thought Content: normal Hallucinations: absent Memory is intact for immediate , recent and remote recall. Sensorium and Orientation: alert person, place and time/date Suicidal Ideation: Patient Denied Homicidal Ideation: Patient Denied RISK ASSESSMENT (Updated each Encounter): Suicide Risk: Low Action plan to address Suicide Risk includes: no action needed at this time. Homicide Risk: Low. Action plan to address Homicide Risk includes: no action needed at this time. DIAGNOSIS(ES): ICD-10-CM ICD-9-CM 1. Major depressive disorder, recurrent episode, moderate (HCC) F33.1 296.32 QUEtiapine (SEROQUEL) 50 MG tablet lamoTRIgine (LAMICTAL) 150 MG tablet 2. Generalized anxiety disorder F41.1 300.02 ALPRAZolam (XANAX) 1 MG tablet 3. PTSD (post-traumatic stress disorder) F43.10 309.81 prazosin (MINIPRESS) 2 MG capsule 4. Insomnia due to mental condition F51.05 300.9 QUEtiapine (SEROQUEL) 200 MG tablet 327.02 mirtazapine (REMERON) 45 MG tablet TREATMENT & MEDICATION PLAN / PATIENT INSTRUCTIONS (Updated each Encounter): 1) Medication and Treatment Reviewed? YES 2) Medication Changes: Yes, we will decrease the daytime dose of seroquel to 50 mg bid. She did want to increase her xanax but instructed the patient that I would not do so due to her other medications that she is taking and compromising her breathing. Medications Discontinued During This Encounter Medication Reason - lamoTRIgine (LAMICTAL) 200 MG tablet Dose adjustment - QUEtiapine (SEROQUEL) 50 MG tablet Dose adjustment - QUEtiapine (SEROQUEL) 100 MG tablet Reorder - ALPRAZolam (XANAX) 1 MG tablet Reorder - mirtazapine (REMERON) 45 MG tablet Reorder - prazosin (MINIPRESS) 2 MG capsule Reorder - lamoTRIgine (LAMICTAL) 150 MG tablet Reorder Medication Orders in This Encounter Medications - ALPRAZolam (XANAX) 1 MG tablet Sig: Take 1 tablet (1 mg total) by mouth 4 (four) times a day as needed. FOR ANXIETY Dispense: 120 tablet Refill: 3 - lamoTRIgine (LAMICTAL) 150 MG tablet Sig: Take 1 tablet (150 mg total) by mouth 2 (two) times a day. 0900 and 1500 Dispense: 60 tablet Refill: 3 - mirtazapine (REMERON) 45 MG tablet Sig: Take 1 tablet (45 mg total) by mouth daily every night. Dispense: 90 tablet Refill: 1 - prazosin (MINIPRESS) 2 MG capsule Sig: Take 2 capsules (4 mg total) by mouth daily every night. Dispense: 180 capsule Refill: 1 - QUEtiapine (SEROQUEL) 200 MG tablet Sig: Take one tab at night Dispense: 30 tablet Refill: 3 - QUEtiapine (SEROQUEL) 50 MG tablet Sig: Take one tab in the morning and one tab in the afternoon. Dispense: 30 tablet Refill: 3 .doing a reduction of the day time doses. Current Outpatient Prescriptions Medication Sig Dispense Refill - ACIDOPHILUS-PECTIN 75 million cell -100 mg Capsule TAKE ONE CAPSULE BY MOUTH TWICE A DAY 60 capsule 0 - alendronate (FOSAMAX) 70 MG tablet Take on empty stomach once weekly sitting upright for full hour after taking with big glass of water. No other meds or food for 1 hour 4 tablet 11 - ALPRAZolam (XANAX) 1 MG tablet Take 1 tablet (1 mg total) by mouth 4 (four) times a day as needed. FOR ANXIETY 120 tablet 3 - atorvastatin (LIPITOR) 20 MG tablet Take 1 tablet (20 mg total) by mouth once daily. 90 tablet 0 - camphor-menthol (SARNA ANTI-ITCH) lotion Apply topically as needed for itching. 222 mL 0 - cholecalciferol (VITAMIN D3) 5,000 unit Tablet Take 1 tablet (5,000 Units total) by mouth once daily. 30 tablet 11 - diaper,brief,adult,disposable Misc 1 application by Miscellaneous route 2 (two) times a day. 96 each 5 - doxycycline (VIBRA-TABS) 100 MG tablet Take 1 tablet (100 mg total) by mouth 2 (two) times a day for 7 days. 14 tablet 0 - escitalopram oxalate (LEXAPRO) 20 MG tablet Take 1 tablet (20 mg total) by mouth once daily. 90 tablet 1 - FLOVENT DISKUS 250 mcg/actuation Disk with Device INHALE ONE PUFF BY MOUTH TWICE A DAY, RINSE MOUTH AFTER USE 60 each 5 - fluticasone (FLONASE) 50 mcg/actuation nasal spray 2 sprays by Each Nostril route once daily. 16 g 12 - food supplemt, lactose-reduced (ENSURE) Liquid Drink 2 bottles per day. Patient requests strawberry. 54683 mL PRN - guaiFENesin 200 mg tablet TAKE THREE TABLETS BY MOUTH TWICE A DAY FOR 10 DAYS 60 tablet 0 - hydroCHLOROthiazide (HYDRODIURIL) 25 MG tablet Take 1 tablet (25 mg total) by mouth once daily. 30 tablet 5 - ipratropium-albuterol (DUO-NEB) 0.5-2.5 mg/3 mL nebulizer NEBULIZE ONE VIAL BY MOUTH FOUR TIMES A DAY 360 vial 1 - lamoTRIgine (LAMICTAL) 150 MG tablet Take 1 tablet (150 mg total) by mouth 2 (two) times a day. 0900 and 1500 60 tablet 3 - lisinopril (PRINIVIL,ZESTRIL) 10 MG tablet Take 1 tablet (10 mg total) by mouth once daily. 90 tablet 2 - mirtazapine (REMERON) 45 MG tablet Take 1 tablet (45 mg total) by mouth daily every night. 90 tablet 1 - montelukast (SINGULAIR) 10 mg tablet TAKE ONE TABLET BY MOUTH EVERY EVENING 30 tablet 4 - nicotine (NICODERM CQ) 21 mg/[address] 1 patch onto the skin once daily. 28 patch 1 - nystatin (MYCOSTATIN) 100,000 unit/mL suspension Take 5 mL (500,000 Units total) by mouth 4 (four) times a day. 200 mL 0 - omeprazole (PRILOSEC) 40 MG capsule TAKE ONE CAPSULE BY MOUTH DAILY 30 capsule 11 - ondansetron (ZOFRAN ODT) 4 MG disintegrating tablet Take 1 tablet (4 mg total) by mouth every 8 (eight) hours as needed for nausea / vomiting. 12 tablet 0 - oxyCODONE-acetaminophen (PERCOCET) 10-325 mg tablet Take 0.5-1 tablets by mouth 3 (three) times a day as needed for pain. Do Not Fill Prior to START Date To Last 30days. No early refills Max Daily Amount: 3 tablets 90 tablet 0 - potassium chloride (KLOR-CON) 10 MEQ CR tablet Take 1 tablet (10 mEq total) by mouth 2 (two) times a day. 30 tablet 6 - prazosin (MINIPRESS) 2 MG capsule Take 2 capsules (4 mg total) by mouth daily every night. 180 capsule 1 - predniSONE (DELTASONE) 20 MG tablet Take 1 tablet (20 mg total) by mouth 2 (two) times a day. 8 tablet 0 - PROAIR HFA 90 mcg/actuation inhaler INHALE TWO PUFFS BY MOUTH FOUR TIMES A DAY 8.5 each 5 - QUEtiapine (SEROQUEL) 200 MG tablet Take one tab at night 30 tablet 3 - QUEtiapine (SEROQUEL) 50 MG tablet Take one tab in the morning and one tab in the afternoon. 30 tablet 3 - SENNALAX-S 8.6-50 mg TAKE TWO TABLETS BY MOUTH TWICE A DAY 120 tablet 10 - underpads Pad Use as needed for incontinence 300 each 10 No current facility-administered medications for this visit. PATIENT EDUCATION: YES: Education was provided to include risks, benefits, side effects and alternatives to treatment regarding medications and treatment recommendations. Patient verbalized understanding and consent for treatment. NA: (If applicable) Patient was educated to avoid while taking medication. YES: (If applicable) The FDA's black box warning for suicidal thinking associated with antidepressant use in those under the age of 25 was discussed, and informed consent obtained. A safety plan was discussed should these thoughts or feelings occur, including presenting to the Emergency Department if thoughts occur and the patient is unable to contract for safety. Patient's Progress Toward Goals and Objectives: Ibis Tay changes in functioning include improvement with her depression. Depression is rated currently controlled but states that her Anxiety is moderate to severe at this time. Current stressors include being hospitalized 3 times in the month of June and they have also found a spot on her lung and will have to have a PET scan. Previous therapeutic goals were reviewed with patient to alleviate anxiety and depression. Explored patient's coping strategies and reviewed ways to identify positive aspects of patient's ability to deal with ongoing stress. She admits she has not been able to work on her coping skills over the last 2 months due to medical issues and feeling overwhelmed. She has missed a couple of her previous appointments due to medical issues. Patient was encouraged to use the strategies in times of stress to cope with anxiety and distress. Encouraged mindfulness and letting go of other family member stressors. PATIENT INSTRUCTIONS Safety Plan: Patient advised to call the clinic here if has any questions, concerns any untoward effects , side effects of medications/treatment or worsening of condition and go to the nearest emergency room or call 911 for help if has thoughts of self harm or suicide or homicide. Patient was advised not to drive while having sedating effect of the medications. Psychoeducation: Patient was explained about details of the illness along with different treatment options available. Patient was advised to call the clinic or go to emergency room if side effects are severe or condition worsens at any time during the illness and treatment. Follow up: Ms. Tay is to return to clinic in 3 months. PSYCHOTHERAPY (Updated each Encounter) Session Time Start: 1403 Session Time End: 1431 Time spent doing therapy was : 19 minutes. Processed Thoughts / Feelings of: Fear and Anxiety Goals / Themes Covered During Medication/ Psychotherapy Time: Instructions regarding Treatment and Follow up, Risk Factor Reduction, Supportive Therapy PATIENT/FAMILY INVOLVEMENT: The patient has been involved in the treatment planning process, the problems identified and goals of treatment. Treatment options were explained and discussed. The patient expressed understanding of the treatment plan goals and treatment options and provided consent for treatment. LABS REVIEWED CBC with Differential WBC Date Value Ref Range Status 07/23/2017 6.4 4.0 - 12.0 k/ul Final Hemoglobin Date Value Ref Range Status 07/23/2017 12.3 12.0 - 16.0 gm/dl Final Hematocrit Date Value Ref Range Status 07/23/2017 39.1 36.0 - 48.0 % Final Platelet Count Date Value Ref Range Status 07/23/2017 201 140 - 440 k/ul Final Neutrophils % Date Value Ref Range Status 07/23/2017 65 % Final Lymphs % Date Value Ref Range Status 07/23/2017 27 % Final Monocytes % Date Value Ref Range Status 07/23/2017 5 % Final Eosinophils Percent Date Value Ref Range Status 07/23/2017 2 % Final and CMP Glucose Date Value Ref Range Status 07/23/2017 97 70 - 100 mg/dl Final Comment: For the purpose of classification, fasting Glucose from 100-125 mg/dl is considered impaired fasting Glucose (Pre-Diabetic) by the [place] [employer]. Fasting Glucose > 125 mg/dl is indicative of Diabetes Mellitus, but must be confirmed. BUN Date Value Ref Range Status 07/23/2017 12 6 - 24 mg/dl Final Creatinine Date Value Ref Range Status 07/23/2017 0.75 0.50 - 1.10 mg/dl Final Comment: The new Creatinine assay is IDMS-traceable. Reference ranges and GFR calculations have been updated. Sodium Date Value Ref Range Status 07/23/2017 144 135 - 145 mmol/L Final Potassium Date Value Ref Range Status 07/23/2017 3.4 (L) 3.7 - 5.1 mmol/L Final Chloride Date Value Ref Range Status 07/23/2017 111 (H) 96 - 110 mmol/L Final CO2 Date Value Ref Range Status 07/23/2017 27.0 22.0 - 32.0 mmol/L Final Anion Gap Date Value Ref Range Status 07/23/2017 9 <=20 mmol/L Final Calcium Date Value Ref Range Status 07/23/2017 8.3 (L) 8.5 - 10.5 mg/dl Final GFR MDRD Af Amer Date Value Ref Range Status 07/23/2017 >90 >=90 mL/min/1.73 m2 Final GFR MDRD Non Af Amer Date Value Ref Range Status 07/23/2017 84 (L) >=90 mL/min/1.73 m2 Final Comment: *NOTE: GFR is a calculated estimate of the glomerular filtration rate.* Total Protein Date Value Ref Range Status 07/23/2017 6.3 6.0 - 8.4 gm/dl Final Albumin Date Value Ref Range Status 07/23/2017 3.2 (L) 3.5 - 5.0 gm/dl Final Globulin Date Value Ref Range Status 07/23/2017 3.1 2.0 - 4.4 gm/dl Final AST Date Value Ref Range Status 07/23/2017 11 10 - 40 u/l Final Alkaline Phosphatase Date Value Ref Range Status 07/23/2017 97 33 - 138 u/l Final Total Bilirubin Date Value Ref Range Status 07/23/2017 0.2 0.0 - 1.5 mg/dl Final ALT Date Value Ref Range Status 07/23/2017 19 12 - 78 u/l Final . JOJO FREIRE [facility] 2017-07-23 19:37:18 eMERGENCY dEPARTMENT eNCOUnter CHIEF COMPLAINT/HPI Chief Complaint Patient presents with - Shortness of Breath seen last month, hx pneumonia, node in L lung, difficulty breathing, headache Ibis Tay is a 62 y.o. female who presents with increasing shortness of breath the last 2 days prior arrival. Associated with dry cough wheezing. Has had chest pain back pain and headaches as well. No myalgias otherwise. No rhinorrhea or sore throat. No fever. Continues to smoke cigarettes. Was admitted here prostate 3 weeks ago for COPD exacerbation. Typically uses 2 L of oxygen at home. Historian: Patient Timin days Onset: Relieving factors: Exacerbating factors: Severity of symptoms are: Moderate to severe REVIEW OF SYSTEMS Review of Systems - Psychological ROS: Ophthalmic ROS: ENT ROS: Respiratory ROS: Cardiovascular ROS: Gastrointestinal ROS: No abdominal pain. No nausea vomiting. Genito-Urinary ROS: No trouble with bowel or bladder. Musculoskeletal ROS: Neurological ROS: Frequent headaches, related to chronic cervical spine pain Dermatological ROS: *all systems reviewed and are otherwise negative* PAST MEDICAL HISTORY Past Medical History: Diagnosis Date - Anxiety - Anxiety - Arthritis - Breast mass 2013 rt axilla - Bronchitis - Bursitis Left hip - Cervical radiculopathy - COPD (chronic obstructive pulmonary disease) (HCC) - DDD (degenerative disc disease) - Depression - Dermatological disorder 01/25 irratative dermatitis from insect b ite - Esophageal stricture - Generalized anxiety disorder - GERD (gastroesophageal reflux disease) - H. pylori infection Hx of H pylori infection several months ago treated with medication,no current issues. - H/O pyloric stenosis - Hiatal hernia - HTN (hypertension) - Hypercholesteremia - Hyperlipidemia No current medications or issues. - OA (osteoarthritis) of knee - Palpitations with anxiety - Pneumonia 1994 - Spinal stenosis SURGICAL HISTORY Past Surgical History: Procedure Laterality Date - ESOPHAGEAL DILATION - LUMBAR FUSION 1995 - CO TOTAL KNEE ARTHROPLASTY Right 05/28/2014 Procedure: REPLACEMENT TOTAL JOINT KNEE RIGHT / BETO ; Surgeon: Isaak Moncada MD; Location: [facility] OR; Service: Orthopedics - TENDON RELEASE Right arm - TOTAL HIP ARTHROPLASTY Left 09/26/14 hip hemiarthoplasty - TOTAL KNEE ARTHROPLASTY Left 11/23 - TUBAL LIGATION CURRENT MEDICATIONS Prior to Admission medications Medication Sig Start Date End Date Taking? Authorizing Provider ACIDOPHILUS-PECTIN 75 million cell -100 mg Capsule TAKE ONE CAPSULE BY MOUTH TWICE A DAY 07/07/17 Mike Ann Jr., MD alendronate (FOSAMAX) 70 MG tablet Take on empty stomach once weekly sitting upright for full hour after taking with big glass of water. No other meds or food for 1 hour 01/28/17 Mike Ann Jr., MD ALPRAZolam (XANAX) 1 MG tablet TAKE ONE TABLET BY MOUTH FOUR TIMES A DAY NEEDED FOR ANXIETY 07/04/17 Jojo Freire APRN atorvastatin (LIPITOR) 20 MG tablet Take 1 tablet (20 mg total) by mouth once daily. 04/15/17 04/15/18 Mike Ann Jr., MD camphor-menthol (SARNA ANTI-ITCH) lotion Apply topically as needed for itching. 01/24/15 BETHEL Trinidad cholecalciferol (VITAMIN D3) 5,000 unit Tablet Take 1 tablet (5,000 Units total) by mouth once daily. 02/08/17 Mike Ann Jr., MD diaper,brief,adult,disposable Misc 1 application by Miscellaneous route 2 (two) times a day. 12/01/15 Mike Ann Jr., MD escitalopram oxalate (LEXAPRO) 20 MG tablet Take 1 tablet (20 mg total) by mouth once daily. 11/12/16 Jojo Freire APRN FLOVENT DISKUS 250 mcg/actuation Disk with Device INHALE ONE PUFF BY MOUTH TWICE A DAY, RINSE MOUTH AFTER USE 07/07/17 Mike Ann Jr., MD fluticasone (FLONASE) 50 mcg/actuation nasal spray 2 sprays by Each Nostril route once daily. 09/17/16 09/17/17 Mike Ann Jr., MD food supplemt, lactose-reduced (ENSURE) Liquid Drink 2 bottles per day. Patient requests strawberry. 11/19/16 Mike Ann Jr., MD guaiFENesin 200 mg tablet TAKE THREE TABLETS BY MOUTH TWICE A DAY FOR 10 DAYS 07/07/17 Mike Ann Jr., MD hydroCHLOROthiazide (HYDRODIURIL) 25 MG tablet Take 1 tablet (25 mg total) by mouth once daily. 06/08/17 Mike Ann Jr., MD ipratropium-albuterol (DUO-NEB) 0.5-2.5 mg/3 mL nebulizer NEBULIZE ONE VIAL BY MOUTH FOUR TIMES A DAY 01/06/17 Mike Ann Jr., MD lamoTRIgine (LAMICTAL) 150 MG tablet Take 150 mg by mouth 2 (two) times a day. 0900 and 1500 Historical Provider, MD lamoTRIgine (LAMICTAL) 200 MG tablet Take 1 tablet (200 mg total) by mouth once daily. FOR MOOD in the evening 05/10/17 Jojo Freire APRN lisinopril (PRINIVIL,ZESTRIL) 10 MG tablet Take 1 tablet (10 mg total) by mouth once daily. 04/11/17 Mike Ann Jr., MD mirtazapine (REMERON) 45 MG tablet Take 1 tablet (45 mg total) by mouth daily every night. 05/10/17 Jojo Freire APRN montelukast (SINGULAIR) 10 mg tablet TAKE ONE TABLET BY MOUTH EVERY EVENING 04/13/17 Mike Ann Jr., MD nicotine (NICODERM CQ) 21 mg/[address] 1 patch onto the skin once daily. 07/09/17 Mike Ann Jr., MD nystatin (MYCOSTATIN) 100,000 unit/mL suspension Take 5 mL (500,000 Units total) by mouth 4 (four) times a day. 07/09/17 Mike Ann Jr., MD omeprazole (PRILOSEC) 40 MG capsule TAKE ONE CAPSULE BY MOUTH DAILY 12/15/16 Mike Ann Jr., MD ondansetron (ZOFRAN ODT) 4 MG disintegrating tablet Take 1 tablet (4 mg total) by mouth every 8 (eight) hours as needed for nausea / vomiting. 03/04/17 TELMA Spain oxyCODONE-acetaminophen (PERCOCET) 10-325 mg tablet Take 0.5-1 tablets by mouth 3 (three) times a day as needed for pain. Do Not Fill Prior to START Date To Last 30days. No early refills Max Daily Amount: 3 tablets 05/31/17 Isaías Cardenas MD potassium chloride (KLOR-CON) 10 MEQ CR tablet Take 1 tablet (10 mEq total) by mouth 2 (two) times a day. 01/28/17 Mike Ann Jr., MD prazosin (MINIPRESS) 2 MG capsule Take 2 capsules (4 mg total) by mouth daily every night. 05/10/17 Jojo Freire APRN PROAIR HFA 90 mcg/actuation inhaler INHALE TWO PUFFS BY MOUTH FOUR TIMES A DAY 05/12/17 Mike Ann Jr., MD QUEtiapine (SEROQUEL) 100 MG tablet Take one tab (100 mg) in the morning, one tab (100 mg) in the afternoon and two tabs (200 mg) at night. 05/10/17 Jojo Freire APRN QUEtiapine (SEROQUEL) 50 MG tablet Take one tab in the morning and one tab in the afternoon. 05/10/17 Jojo Freire APRN SENNALAX-S 8.6-50 mg TAKE TWO TABLETS BY MOUTH TWICE A DAY 12/08/16 Mike Ann Jr., MD underpads Pad Use as needed for incontinence 04/30/17 Mike Ann Jr., MD ALLERGIES Allergies Allergen Reactions - Penicillins Anaphylaxis - Gabapentin Other (See Comments) severe fatigue - Sulfa (Sulfonamide Antibiotics) Other (See Comments) Blisters inside and outside of mouth. - Wellbutrin [Bupropion Hcl] Other (See Comments) Body numbness and tingling FAMILY HISTORY Family History Problem Relation Age of Onset - Other Other Hx: Yes Dx: Diabetes Fam Mem: Family h/o - Drug abuse Other - Other Other Hx: Yes Dx: Hypertension Fam Mem: Mother - Drug abuse Other - Hypertension Mother - Heart disease Mother - Diabetes Mother - No Known Problem Father - Other Sister - Cancer Sister - Other Other Hx: Yes Dx: Heart disease Fam Mem: Mother - Diabetes Maternal Grandmother SOCIAL HISTORY Social History Social History - Marital status: Single Spouse name: N/A - Number of children: N/A - Years of education: 14 Social History Main Topics - Smoking status: Current Every Day Smoker Packs/day: 1.50 Years: 44.00 Types: Cigarettes - Smokeless tobacco: Current User - Alcohol use No - Drug use: No - Sexual activity: Not Asked Other Topics Concern - None Social History Narrative PHYSICAL EXAM VITAL SIGNS: Wt Readings from Last 3 Encounters: 07/23/17 70.3 kg (155 lb) 07/08/17 78 kg (171 lb 15.3 oz) 07/01/17 74.4 kg (164 lb 0.4 oz) Temp Readings from Last 3 Encounters: 07/23/17 36.9 C (98.4 F) (Oral) 07/09/17 36.3 C (97.3 F) (Axillary) 07/03/17 36.9 C (98.4 F) (Axillary) BP Readings from Last 3 Encounters: 07/23/17 149/66 07/09/17 127/82 07/03/17 123/62 Pulse Readings from Last 3 Encounters: 07/23/17 89 07/08/17 91 07/03/17 100 VS: Reviewed RN notes General: Well hydrated, no apparent distress. HEENT: PERRL EOMI Mouth and throat clear and moist. Neck: Supple without adenopathy thyromegaly or stridor Chest: Moderate bilateral wheezing or rhonchi. Heart: Regular rate and rhythm Abdomen: Soft without guarding or rebound. No palpable tenderness. Extremities: No tenderness or edema Neurologic: Alert oriented x3. Motor and sensory grossly intact Skin: Warm and dry Lymph: No palpable adenopathy Psych: EKG Sinus rhythm 89. No acute ST changes. Corrected QT interval 438 RADIOLOGY/PROCEDURES ED Imaging Results & Wet Read XR Chest 1 View (Final result) Result time: 07/23/17 19:32:47 Final result by Carmen Fuentes MD (07/23/17 19:32:47) Impression: 1. Cardiomegaly. 2. No pneumonia or edema. 3. Blunting left costophrenic angle. Narrative: REASON FOR EXAM: Shortness of breath DISCUSSION: Portable AP view the chest and demonstrates cardiomegaly. There is no pneumonia or edema. A calcified tortuous aorta is seen. LABS ED Lab Results Procedure Component Value Ref Range Date/Time GEM Blood gas arterial [[id number]] (Abnormal) Collected: 07/23/172011 Order Status: Completed Updated: 07/23/172011 Blood gas draw time 2007 pH, Arterial 7.41 7.35 - 7.45 pCO2, Arterial 44 35 - 45 mmHg pO2, Arterial 66 (L) 80 - 100 mmHg HCO3, Arterial 27.9 20.0 - 30.0 mmol/L Base Excess 2.7 -4.0 - 4.0 mmol/L O2 Sat, Arterial 93 (L) 95 - 98 % Ventilation 21.0 Allens Test POS Influenza A and B antigens [[id number]] Collected: 07/23/172009 Order Status: Completed Specimen: Nares from Nares Updated: 07/23/172037 Influenza A Antigen Negative Negative Influenza B Antigen Negative Negative CBC auto differential [[id number]] Collected: 07/23/171904 Order Status: Completed Specimen: Blood Updated: 07/23/171919 WBC 6.4 4.0 - 12.0 k/ul RBC 4.38 3.50 - 5.30 m/ul Hemoglobin 12.3 12.0 - 16.0 gm/dl Hematocrit 39.1 36.0 - 48.0 % MCV 89 80 - 100 fl MCH 28.1 26.0 - 34.0 pg MCHC 31.5 30.0 - 37.0 gm/dl RDW 14.9 11.5 - 15.0 % Platelet Count 201 140 - 440 k/ul MPV 9.5 8.5 - 12.5 fl Neutrophils % 65 % Immature Granulocytes % 0 % Lymphs % 27 % Monocytes % 5 % Eosinophils Percent 2 % Basophils Percent 0 % Neutrophils Abs 4.2 1.5 - 8.0 k/ul Immature Granulocytes Abs 0.0 0.0 - 0.1 k/ul Lymphs Abs 1.7 1.0 - 4.5 k/ul Monocytes Abs 0.3 0.1 - 1.1 k/ul Eosinophils Absolute 0.1 0.0 - 0.4 k/ul Basophils Absolute 0.0 0.0 - 0.1 k/ul Comprehensive metabolic panel [[id number]] (Abnormal) Collected: 07/23/171904 Order Status: Completed Specimen: Blood Updated: 07/23/171936 Glucose 97 70 - 100 mg/dl BUN 12 6 - 24 mg/dl Creatinine 0.75 0.50 - 1.10 mg/dl Sodium 144 135 - 145 mmol/L Potassium 3.4 (L) 3.7 - 5.1 mmol/L Chloride 111 (H) 96 - 110 mmol/L CO2 27.0 22.0 - 32.0 mmol/L Anion Gap 9 <=20 mmol/L Calcium 8.3 (L) 8.5 - 10.5 mg/dl Total Protein 6.3 6.0 - 8.4 gm/dl Albumin 3.2 (L) 3.5 - 5.0 gm/dl Globulin 3.1 2.0 - 4.4 gm/dl AST 11 10 - 40 u/l Alkaline Phosphatase 97 33 - 138 u/l ALT 19 12 - 78 u/l GFR MDRD Af Amer >90 >=90 mL/min/1.73 m2 GFR MDRD Non Af Amer 84 (L) >=90 mL/min/1.73 m2 Total Bilirubin 0.2 0.0 - 1.5 mg/dl B-type natriuretic peptide [[id number]] Collected: 07/23/171904 Order Status: Completed Specimen: Blood Updated: 07/23/171935 CHF Peptide (proBNP) 64 <=124 pg/ml Results from last 7 days Lab Units 07/23/171904 SODIUM mmol/L 144 POTASSIUM mmol/L 3.4* CHLORIDE mmol/L 111* GLUCOSE mg/dl 97 CALCIUM mg/dl 8.3* PROTEIN TOTAL gm/dl 6.3 ALBUMIN gm/dl 3.2* BUN mg/dl 12 GLOBULIN gm/dl 3.1 ANION GAP2 mmol/L 9 CO2 mmol/L 27.0 CREAT mg/dl 0.75 BILIRUBIN TOTAL mg/dl 0.2 AST u/l 11 ALT u/l 19 Results from last 7 days Lab Units 07/23/171904 HEMOGLOBIN gm/dl 12.3 HEMATOCRIT % 39.1 RBC m/ul 4.38 WBC k/ul 6.4 MCV fl 89 MCH pg 28.1 MCHC gm/dl 31.5 PLATELETS k/ul 201 RDW % 14.9 Administered Meds Date/Time Order Dose Route Action Comments 07/23/20171957 methylPREDNISolone (Solu-MEDROL) 125 mg/2 mL injection 125 mg 125 mg IntraVENous Given 07/23/20172014 ipratropium-albuterol (DUO-NEB) 0.5-2.5 mg/3 mL nebulizer solution 3 mL 3 mL Nebulization Given 07/23/20171958 ondansetron (ZOFRAN) 4 mg/2 mL injection 4 mg 4 mg IntraVENous Given 07/23/20172000 morphine 4 mg/mL syringe 4 mg 4 mg IntraVENous Given ED COURSE & MEDICAL DECISION MAKING Pertinent Labs & Imaging studies reviewed. (See chart for details) 845 p.m. breathing much better. Workup unremarkable. ABG results acceptable. No evidence of pneumonia or influenza. Patient advised to stop smoking. She is given prescriptions for doxycycline and prednisone. She will call her doctor next for follow-up. Discharge vital signs acceptable New Prescriptions DOXYCYCLINE (VIBRA-TABS) 100 MG TABLET Take 1 tablet (100 mg total) by mouth 2 (two) times a day for 7 days. PREDNISONE (DELTASONE) 20 MG TABLET Take 1 tablet (20 mg total) by mouth 2 (two) times a day. Mike Ann Jr., MD [address] [facility] [address] [facility] [address] In 4 days Discharge [1] 07/23/2017 8:53 PM 1. COPD exacerbation (HCC) *This note was compiled in part using Pegg'd voice recognition technology. The note may contain topographical, grammatical, and voice recognition errors* Raad Tidwell MD 07/23/172053 RAAD TIDWELL [facility]
--- NOTE | 2024-07-26 01:22 | CRLHL7_ITS ---
For Patients: As a result of the Century Cures Act, medical imaging exams and procedure reports are released immediately into your electronic medical record. You may view this report before your referring provider. If you have questions, please contact your health care provider. INDICATION: Cough. TECHNIQUE: Chest 2 views. COMPARISON: 06/12/2024. FINDINGS: Cardiovascular and mediastinum: Stable cardiomediastinal silhouette. Aortic knob calcifications. Lungs and pleural spaces: Faint patchy opacities in the bilateral lower lobes. No pleural effusions or pneumothorax. Bones and soft tissues: T12 superior endplate compression deformity, unchanged. IMPRESSION: Faint bilateral lower lung patchy opacities. Findings are nonspecific, may represent atelectasis or infiltrates. Dictated by Venancio Rushing MD @ 07/26/2024 2:35:59 AM (Electronically Signed)
[2024-07-26] MEDS: LORazepam 2 MG/ML inj 1 MG IVP (01:30)
[2024-07-26] MEDS: IPRAT-ALBUT 0.5-2.5 MG/3 ML NEB 1 NEB IH (01:34)
[2024-07-26] MEDS: 0.9 % SODIUM CHLORIDE 1000 ml 1,000 ML 500 ML IV (01:34)
[2024-07-26 01:37] LABS: Basophils Absolute Auto 0.01 K/uL (0.00-0.30); Basophils Percent Auto 0.1 % (0.0-3.0); Eosinophils Percent Auto 1.5 % (0.0-7.0); Hematocrit 37.3 % (33.0-51.0); Immature Granulocytes Abs Auto 0.01 K/uL (0.00-0.30); Immature Granulocytes Pct Auto 0.1 %; Lymphocytes Percent Auto 14.9 % (20-44); Mean Corpuscular HGB Conc 32 gm/dL (32-36); Mean Corpuscular Hemoglobin 27 pg (26-34); Mean Corpuscular Volume 85 fL (80-100); Monocytes Percent Auto 7.1 % (0.0-11.0); Neutrophils Percent Auto 76.3 % (42.0-72.0); Platelet Count* 249 K/uL (140-440); RDW Coefficient of Variation % 13.7 % (11.5-15.5); Red Blood Count 4.38 m/uL (4.00-5.20); White Blood Count* 6.89 K/uL (4.50-11.00)
--- OUTSIDE RECORDS SUMMARY | 2024-07-26 01:40 | XMS_ITS | Encounter Summary ---
Author Organization [place] Address [address] [facility] [place] [address] Care Team Providers Care Internet Specialist Name Role Phone Addison Chapin MD Primary Care Provider Reason for Visit * Reason Onset Date Comments Results 06/22/2024 Results of 05/15 Colonoscopy Encounter Details Date Type Department Care Team (Late st Contact Info) Description 06/22/[address] [phone] Miguelangel Deleon MD [address] [place] [phone] Results (Results of 05/15/24 Colonoscopy) Social History [...] Miguelangel Deleon MD - 06/22/2024 2:52 PM WOOD CUT ENGRAVER . CUT ENGRAVER documented in this encounter Miscellaneous Notes * Telephone Encounter - Miguelangel Deleon MD - 07/10/2024 6:35 AM CST ok CUT ENGRAVER * Telephone Encounter - Mary Rashid - 06/25/2024 10:40 AM CST Call returned and patient notified that results were sent out in the mail and to call back GI with any further questions, patient can provide the letter to her PCP as well Thank you, MIGUELANGEL Browne RN [facility] Gastroenterology CUT ENGRAVER * Telephone Encounter - Prema Bauer - 06/22/2024 2:52 PM CST [facility] Phone Message May a detailed message be left on voicemail: yes Reason for Call: Other: Patient called as she has not heard back about the results of her 05/15/24 colonoscopy. The results can be sent to her PCP, Dr. Addison Chapin at [facility] - assembly instructions writer added her PCP to her Care Team today. Action Taken: Message routed to: [facility] Travel Screening: Not Applicable CUT ENGRAVER documented in this encounter Plan of Treatment Not on file documented as of this encounter Visit Diagnoses Not on filedocumented in this encounter Care Teams Internet Specialist Relationship Specialty Start Date End Date Addison Chapin MD [facility] [address] [place] [address] PCP - General Family Medicine 06/22/24 documented as of this encounter
--- OUTSIDE RECORDS SUMMARY | 2024-07-26 01:40 | XMS_ITS | Clinical Summary ---
Author Organization [facility] Address [place], [place] [address] Care Team Providers Care Metal Bonder Name Role Phone Pcp, No Primary Care Provider Unavailabl e Encounters Date Type Department Care Team Description 04/26/2024 Telephone [facility] [address] [place] [address] Jovan Baltazar MD Late Cancel [...] Insurance [address] [place] [id number] [facility] MR MEDICAID Care Teams Metal Bonder Relationship Specialty Start Date End Date Pcp, No . PCP - General 04/16/24
--- OUTSIDE RECORDS SUMMARY | 2024-07-26 01:40 | XMS_ITS | Clinical Summary ---
Author Organization [place] Address [address] [facility] [place] [address] Care Team Providers Care Blue Print Control Clerk Name Role Phone Addison Chapin MD Primary [...] Type Department Care Team Description 06/22/[address] [phone] Miguelangel Corona MD Results (Results of 05/15/24 Colonoscopy) 05/15/2024 9:30 AM CDT - 05/15/2024 10:00 AM CDT Surgery [facility] [address] [place] [phone] Miguelangel Corona MD ESOPHAGOGASTRODUOD ENOSCOPY, WITH BIOPSY 05/15/2024 9:09 AM CDT Anesthesia Event [facility] [address] [place] [phone] Blas Self APRN CRNA Clough, Brock, APRN CRNA 05/15/2024 7:42 AM CDT - 05/15/2024 10:04 AM CDT Hospital Encounter [facility] [address] [place] [phone] Miguelangel Corona MD Discharge Disposition: Home or Self Care 05/15/2024 Travel 04/30/2024 Telephone [facility] [address] [place] [phone] None Procedure (EGD) 04/27/2024 4:37 PM CDT - 04/27/2024 8:15 PM CDT Emergency [facility] Emergency Dept [address] [place] [phone] Sierra Gomez MD Esophageal obstruction due to [...] CDT) Case Report Surgical Pathology Report Case: [id number] Authorizing Provider: Miguelangel Corona MD Collected: 05/15/2024 09:18 AM Ordering Location: [facility] Received: 05/15/2024 09:31 AM [facility] Endoscopy Pathologist: Mouna Mortensen MD Specimen: Esophagus, [...] component of this testing was completed at [facility]. Stain controls for all stains resulted within this report have been reviewed and show appropriate reactivity. 05/17/2024 1:48 PM CDT LABORATORY Case Images 05/17/2024 1:48 PM CDT LABORATORY Biopsy ESOPHAGEAL STRUCTURE / Unknown 05/15/2024 9:18 AM CDT 05/15/2024 9:31 AM CDT Miguelangel Corona MD LAB - [facility] Final Result LABORATORY [facility] [address] 1[address] floor, [address] [place] [address], [facility] [phone] * UPPER GI ENDOSCOPY (05/15/2024 9:11 AM CDT) Upper GI Endoscopy [address] [address] Patient Name: Ibis Nolan Procedure Date: 05/15/2024 9:11 AM Date of : 1955 Admit Type: Outpatient Age: 69 Room: [place] [address] Gender: Female Note Status: Finalized Attending MD: MIGUELANGEL CORONA , , Total Sedation Time: Procedure: Upper GI endoscopy Indications: Dysphagia, Foreign body in the esophagus Providers: MIGUELANGEL CORONA Referring MD: SEIRRA GOMEZ MD Medicines: Monitored Anesthesia Care Complications: [...] the patient. Procedure Code(s): --- Professional --- 59285, Esophagogastroduod enoscopy, flexible, transoral; with biopsy, single or multiple Diagnosis Code(s): --- Professional --- K22.89, Other specified disease of esophagus R13.10, Dysphagia, unspecified T18.108A, Unspecified foreign body in esophagus causing other injury, initial encounter CPT copyright 2021 [employer]. All rights reserved. The codes documented in this report are preliminary and upon finance business partner review may be revised to meet current [...] CDT EXAM: XR CHEST 2 VIEWS LOCATION: [facility] DATE: 04/27/2024 INDICATION: cp COMPARISON: None. Procedure Note Leon Simons MD - 04/27/2024 EXAM: XR CHEST 2 VIEWS LOCATION: [facility] DATE: 04/27/2024 INDICATION: cp COMPARISON: None. IMPRESSION: Cardiac silhouette is within normal limits. Left hilarsurgical clip. Mild linear left perihilar opacities are favoredatelectasis or scarring. No pleural effusion or pneumothorax. Sierra Gomez MD IMG DIAGNOSTIC IMAGING ORDERABLE S Final Result from Last 3 Months Insurance [place]UE [place] ADVANTAGE [place] [facility] [place] D[place] [facility] Care Teams Blue Print Control Clerk Relationship Specialty Start Date End Date Addison Chapin MD [facility] [address] [place] [address] PCP - General Family Medicine 06/22/24
--- OUTSIDE RECORDS SUMMARY | 2024-07-26 01:40 | XMS_ITS | Referral Summary ---
Author Organization [place] Address [facility] [place] [address] Care Team Providers Care Poem Writer Name Role Phone Addison Chapin MD Primary Care Provider Encounters Date Type Department Care Team Description 06/22/[address] [phone] Miguelangel Corona MD Results (Results of 05/15/24 Colonoscopy) 05/15/2024 Travel 05/15/2024 9:30 AM CDT - 05/15/2024 10:00 AM CDT Surgery [facility] [address] [place] [phone] Miguelangel Corona MD ESOPHAGOGASTRODUOD ENOSCOPY, WITH BIOPSY 05/15/2024 9:09 AM CDT Anesthesia Event [facility] [address] [place] [phone] Blas Self APRN CRNA Clough, Brock, APRN CARE SPECIALIST 05/15/2024 7:42 AM CDT - 05/15/2024 10:04 AM CDT Hospital Encounter [facility] [address] [place] [phone] Miguelangel Corona MD Discharge Disposition: Home or Self Care 04/30/[address] [facility] [address] 4th [place] [phone] None Procedure (EGD) 04/27/2024 Travel 04/27/2024 4:37 PM CDT - 04/27/2024 8:15 PM CDT Emergency [facility] Emergency Dept [address] [place] [phone] Sierra Gomez MD Esophageal obstruction due to [...] CDT) Case Report Surgical Pathology Report Case: [id number] Authorizing Provider: Miguelangel Corona MD Collected: 05/15/2024 09:18 AM Ordering Location: [facility] Received: 05/15/2024 09:31 AM [facility] Endoscopy Pathologist: Mouna Mortensen MD Specimen: Esophagus, [...] component of this testing was completed at [facility]. Stain controls for all stains resulted within this report have been reviewed and show appropriate reactivity. 05/17/2024 1:48 PM CDT LABORATORY Case Images 05/17/2024 1:48 PM CDT LABORATORY Biopsy ESOPHAGEAL STRUCTURE / Unknown 05/15/2024 9:18 AM CDT 05/15/2024 9:31 AM CDT Miguelangel [facility] Final Result LABORATORY [facility] Acute Care Lab [address] 1[address] floor, [address] [place] [phone], [facility] [phone] * UPPER GI ENDOSCOPY (05/15/2024 9:11 AM CDT) Upper GI Endoscopy [address] [address] Patient Name: Ibis Nolan Procedure Date: 05/15/2024 9:11 AM Date of : 1955 Admit Type: Outpatient Age: 69 Room: [place] [address] Gender: Female Note Status: Finalized Attending MD: [...] the patient. Procedure Code(s): --- Professional --- 88117, Esophagogastroduod enoscopy, flexible, transoral; with biopsy, single or multiple Diagnosis Code(s): --- Professional --- K22.89, Other specified disease of esophagus R13.10, Dysphagia, unspecified T18.108A, Unspecified foreign body in esophagus causing other injury, initial encounter CPT copyright 2021 [employer]. All rights reserved. The codes documented in this report are preliminary and upon healthcare insurance sales agent review may be revised to meet current [...] 04/27/2024 EXAM: XR CHEST 2 VIEWS LOCATION: [facility] DATE: 04/27/2024 INDICATION: cp COMPARISON: None. IMPRESSION: Cardiac silhouette is within normal limits. Left hilarsurgical clip. Mild linear left perihilar opacities are favoredatelectasis or scarring. No pleural effusion or pneumothorax. us Sierra Gomez MD IMG DIAGNOSTIC IMAGING ORDERABLE S Final Result from Last 3 Months Insurance BLUE PLUS ADVANTAGE DUAL [facility] BLUE PLUS ADVANTAGE DUAL [facility] Care Teams Poem Writer Relationship Specialty Start Date End Date Addison Chapin MD [facility] [address] [address] PCP - General Family Medicine 06/22/24
[2024-07-26 01:42] LABS: Slide Review Reflex No
--- OUTSIDE RECORDS SUMMARY | 2024-07-26 01:42 | XMS_ITS | Clinical Summary ---
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 Name Role Phone MIKE ANN JR Primary [...] Policy Number Effective Date Expira tion Date [facility] DUAL COMPLETE [id number] 2017 00:00:0 0 [place] [facility] [id number] 2016 00:0 0:00 [facility] COMMUNITY PLAN [place] [id number] 2017 00:00:00 2017 00:00:00 [facility] MEDICARE [id number] 2016 00:00:00 20 03-07-31 00:00:00 MEDICARE PART A \T\ B [id number] 2015 00:00:00 2015 0 0:00:00 [place] [facility] [id number] 2015-07-18 00:00:00 2016-07-17 0 0:00:00 [place] [id number] 2015-01-24 00:00: 00 2015-01-24 00:00:00 [facility] [id number] 2015-07-18 00:00:00 2015 00:00:00 ALANNA [id number] 2020-02-03 00:00:00 02-02 00:00:00 MEDICARE COMPLETE [facility] [id number] 2016-07-18 00:00:00 Problems Condition Name Condition Details Condition [...] TABS 12-28 00:00: 00 Yes NAVEEN MIKE [employer] Insurance DrugClass :*Antihis tamines - Non-Sedat ing [...] 24 00:00: 00 Yes [facility] MME/Day:6 0 DrugClass :*Opioid Combinati ons [...] 5-04 00:00: 00 Yes [facility] DrugClass :*Sympath omimetics DrugSubCl ass:*Adre nergic Combinati ons ALPRAZolam 0.5 MG TABS ALPRAZolam 0.5 MG TABS 30 00:00: 00 Yes MIKE ANN Medicare DeaSched le:4 DrugClass :*Benzodi azepines* * DrugSubCl ass:*Joseph odiazepin es oxyCODONE-A cetaminophe n 10-325 MG TABS oxyCODONE-A cetaminophe n 10-325 MG TABS -24 00:00: 00 Yes [facility] MME/Day:6 0 DrugClass :*Opioid Combinati ons DrugSubCl ass:*Opio id Combinati ons Cyclobenzap rine HCl 10 MG TABS Cyclobenzap rine HCl 10 MG TABS -22 00:00: 00 Yes CARDENAS TYRUS Medicare DeaSchedu le:0 DrugClass :*Central Muscle Relaxants DrugSubCl ass:*Cent ral Muscle Relaxants Topiramate 25 MG TABS Topiramate 25 MG TABS 4-20 00:00: 00 Yes [facility]KE [facility] DrugClass :*Anticon vulsants - Misc. [...] TABS 10-30 00:00: 00 Yes MARYCRUZ ANNREY [employer] Insurance DrugClass :*Antihis tamines - Non-Sedat ing [...] 4 MG TABS 09-28 00:00: 00 Yes [facility] TYRUS Medicare DeaSchedu le:0 DrugClass :*Central Muscle [...] 2-02 00:00: 00 Yes [facility] DrugClass :*Benzodi azepines* * DrugSubCl [...] 10-325 MG TABS 2022-07 00:00: 00 Yes [facility] TYRUS Medicare DeaSchedu le:2 MME/Day:6 0 DrugClass [...] 2022-07 00:00: 00 Yes NAVEEN JEFFREY [facility] DrugClass :*Benzodi azepines* * DrugSubCl ass:*Joseph [...] 00:00:00 Influenza Trivalent Influenza Trivalent 00:00:00 Novel Vqxijtjyg-[id number], preserve-free Novel Zbmlxvajf-J6R4-98, preserve-free 2009-05-29 00:00:00 Vital Signs Vital Name [...] CONTRASTEST PATIENT OFFICE VISITEST PATIENT OFFICE VISIT sxtnrf-amukkbypthntxsvy-rwqoyvxdxuKMN PATIENT OFFICE VISITMH OFFICE VISIT 60 MINUTEWALK-INBlood [...] Department Encounter ID 2024-01-06 15:45:59 Outpatient KALYAN [id number] 2 2023-10-03 15:00:45 Raul-sudhakar KALYAN [id number] 2023-09-05 12:50:58 Raul- KALYAN [id number] 4 2182023-08-31 10:40:02 Raul- KALYAN [id number] 4 0214 2023-08-08 08:13:55 Outpatient KALYAN [id number] 5 2023-08-05 12:01:12 Outpatient KALYAN [id number] 7 2023-08-03 20:07:39 Raul- KALYAN [id number] 2023-05-24 09:26:47 Outpatient KALYAN [id number] 3 2023-05-22 17:29:09 Raul- KALYAN [id number] 3 [id number] 2023-04-15 13:56:00 Raul-sudhakar KALYAN [id number] 3 0929 2023-04-15 07:10:28 Outpatient KALYAN [id number] 8 2023-04-08 13:00:32 Raul-sudhakar KALYAN [id number] 10:29:04 Raul-sudhakar KALYAN [id number] 3 0821 2022-12-02 06:30:41 Outpatient KALYAN [id number] 0 2022-09-14 11:11:26 Raul- KALYAN [id number] 8 2022-09-06 10:35:49 Raul-sudhakar KALYAN [id number] 3 [id number] 21:02:03 Raul- KALYAN [id number] 3 1092022-05-14 14:36:27 Raul- KALYAN [id number] 2 1028 2022-01-13 10:52:04 Raul- KALYAN [id number] 2 0629 2021-12-25 17:51:35 Raul- KALYAN [id number] 2 0610 2021-07-08 09:26:24 Raul-sudhakar KALYAN [id number] 1 1222 2021-03-20 11:03:51 Raul- KALYAN [id number] 2023-12-13 15:52:22 2023-12-13 15:52:22 Outpatient ISAÍAS CARDENAS [facility] [id number] 2023-11-07 11:43:47 2023-11-07 11:43:47 Outpatient ISAÍAS CARDENAS [facility] [id number] 2023-10-03 11:35:12 2023-10-03 23:59:00 Outpatient FAITH IVERSON [facility] [id number] 2023-09-22 10:08:34 2023-09-22 10:08:34 Outpatient NAVEEN MIKE TEAGUE [address] [id number] 2023-09-08 10:59:02 2023-09-08 10:59:02 Outpatient ISAÍAS CARDENAS [facility] [id number] 2023-09-06 14:09:39 2023-09-06 14:09:39 Outpatient FAITH GERBER [facility] [id number] 2023-09-05 09:25:51 2023-09-05 23:59:00 Outpatient FAITH IVERSON [facility] [id number] 2023-08-31 09:57:25 2023-08-31 23:59:00 Outpatient Reddy ANN JRMARYCRUZMIKE [facility] [id number] 2023-08-31 09:57:07 2023-08-31 23:59:00 Outpatient Reddy NAVEEN TEAGUEMARYCRUZMIKE [facility] [id number] 2023-08-25 14:55:00 2023-08-25 23:59:00 Outpatient Reddy ANN JR MIKE [address] [id number] 2023-08-25 14:26:00 2023-08-25 23:59:00 Outpatient Marco Ann [facility] [id number] 2023-08-11 14:33:49 2023-08-11 14:33:49 Outpatient ISAÍAS CARDENAS [facility] [id number] 2023-08-03 18:07:00 2023-08-04 03:11:00 Emergency E JASMIN ZIEGLER [facility] [id number] 2023-08-03 20:10:44 2023-08-03 23:59:00 Emergency CHADWICK LOREDO [facility] [id number] 2023-08-03 18:51:08 2023-08-03 20:09:00 Emergency CHADWICK LOREDO [facility] [id number] 2023-08-03 18:51:17 2023-08-03 18:51:17 Emergency CHADWICK LOREDO [facility] [id number] 2023-07-04 10:53:36 2023-07-04 10:53:36 [facility] [id number] 2023-06-20 18:52:58 2023-06-20 18:52:58 Outpatient KVNG BAH [address] [id number] 2023-06-20 14:05:45 2023-06-20 14:05:45 Outpatient PAL WOODY [facility] [id number] 2023-06-13 15:15:00 2023-06-13 23:59:00 Outpatient MIKE LAURENT JR [address] [id number] 2023-06-13 08:57:00 2023-06-13 23:59:00 Outpatient Marco Ann [facility] [id number] 2023-06-07 11:10:18 2023-06-07 11:10:18 Outpatient ISAÍAS CARDENAS [facility] [id number] 2023-06-03 15:56:14 2023-06-03 15:56:14 Outpatient MIKE ANN JR [address] [id number] 2023-06-02 09:05:40 2023-06-02 09:05:40 Outpatient NEFTALI GERMAN [address] [id number] 2023-05-22 16:33:33 2023-05-22 23:59:00 Emergency JASMIN ZIEGLER [facility] [id number] 2023-05-22 16:10:00 2023-05-22 18:37:00 Emergency JASMIN ARZOLA [facility] [id number] 2023-04-28 10:40:24 2023-04-28 10:40:24 Outpatient ISAÍAS CARDENAS [facility] [id number] 2023-04-25 12:47:00 2023-04-25 23:59:00 Outpatient Reddy NAVEEN MIKE TEAGUE [address] [id number] 2023-04-25 11:45:00 2023-04-25 11:45:00 Outpatient Marco nAn [facility] 58 [id number] 2023-04-15 06:20:54 2023-04-15 23:59:00 Outpatient Reddy CARDENASISAÍAS [facility] [id number] 2023-04-08 09:49:43 2023-04-08 23:59:00 Outpatient Reddy NAVEEN MIKE TEAGUE [facility] [id number] 2023-04-08 16:34:43 2023-04-08 16:34:43 Outpatient KVNG BAH [address] [id number] 2023-03-29 13:45:00 2023-03-29 23:59:00 Outpatient NaveenMarco [facility] 58 [id number] 2023-03-29 12:14:00 2023-03-29 23:59:00 Outpatient Reddy NAVEEN MIKE TEAGUE [address] [id number] 2023-03-24 12:17:58 2023-03-24 12:17:58 Outpatient MIKE ANN JR [address] [id number] 2023-03-07 08:44:00 2023-03-07 23:59:00 Outpatient Brown Hieudenis Brown Abraham [facility] [id number] 2023-03-07 11:32:46 2023-03-07 11:32:46 Outpatient FAITH GERBER [facility] [id number] 2023-03-03 10:27:26 2023-03-03 10:27:26 Outpatient ISAÍAS CARDENAS [facility] [id number] 2023 23:12:08 2023 23:12:08 Outpatient NAVEEN TEAGUEMIKE [address] [id number] 2023-02-03 13:44:26 2023-02-03 13:44:26 Outpatient ISAÍAS CARDENAS [facility] [id number] 2023-02-01 00:00:00 2023-02-01 00:00:00 Outpatient Bess Olivarez [facility] - PROCEDURE ROOM - [address] [place] [address] [id number] 2023-01-14 00:00:00 2023-01-14 00:00:00 Outpatient Bess Olivarez [facility] [id number] 2023-01-06 09:12:19 2023-01-06 09:12:19 Outpatient NEBMETHO NEBMETHO [id number] 2022-12-30 10:15:31 2022-12-30 10:15:31 Outpatient [facility] [id number] 2022-12-28 14:09:26 2022-12-28 14:09:26 Outpatient VERO EDWARDS [facility] [id number] 2022-12-23 17:33:19 2022-12-23 17:33:19 Outpatient [facility] [id number] 2022-12-23 00:00:00 2022-12-23 00:00:00 Outpatient Bess Olivarez [facility] [id number] 2022-12-02 11:26:02 2022-12-02 11:26:02 Outpatient ISAÍAS CARDENAS [facility] [id number] 2022-11-30 10:05:48 2022-11-30 10:05:48 Outpatient [facility] [id number] 2022-11-11 10:45:00 2022-11-11 23:59:00 Outpatient MIKE LUARENT JR, [facility] [id number] 2022-11-11 11:04:04 2022-11-11 11:04:04 Outpatient MIKE ANN JR [address] [id number] 2022-11-04 09:38:22 2022-11-04 09:38:22 Outpatient [facility] [id number] 2022-10-19 12:42:58 2022-10-19 12:42:58 Outpatient EVRO EDWARDS [facility] [id number] 2022-10-08 00:23:40 2022-10-08 00:23:40 Outpatient MIKE ANN JR [address] [id number] 2022-10-05 09:29:24 2022-10-05 09:29:24 Outpatient RACHANA CARDENASUS [facility] [id number] 2022-10-04 15:17:50 2022-10-04 15:17:50 Outpatient [facility] [id number] 2022-09-14 10:28:28 2022-09-14 23:59:00 Outpatient MIKE LAURENT JR [facility] [id number] 2022-09-14 08:52:43 2022-09-14 08:52:43 Outpatient MIKE ANN JR [address] [id number] 2022-09-09 10:32:35 2022-09-09 10:32:35 Outpatient NAVEEN MIKE TEAGUE [address] [id number] 2022-09-09 08:46:46 2022-09-09 08:46:46 Outpatient CARDENAS, ISAÍAS [facility] [id number] 2022-09-06 09:56:37 2022-09-06 23:59:00 Outpatient C OLSONSHRADDHAKURTIS [facility] [id number] 2022-09-06 11:59:17 2022-09-06 11:59:17 Outpatient HIEU BROWN [facility] [id number] 2022-08-19 09:05:17 2022-08-19 09:05:17 Outpatient JURGEN JOHNSON [address] [id number] 2022-08-17 15:39:43 2022-08-17 15:39:43 Outpatient VERO EDWARDS [facility] [id number] 2022-08-12 09:00:00 2022-08-12 09:00:00 Outpatient JESSENIAANGELITO BROWNTAMARA [facility] [id number] 2022-08-12 08:58:53 2022-08-12 08:58:53 Outpatient CARDENAS, ISAÍAS [facility] [id number] 2022-07-28 16:26:00 2022-07-28 22:19:00 Outpatient C ZHENG ROLAND [facility] [id number] 2022-07-28 13:59:59 2022-07-28 13:59:59 Outpatient ZHENG ROLAND [facility] [id number] 2022-07-27 19:04:00 2022-07-27 21:36:00 Emergency E SHUFF, QUANG [facility] [id number] 2022-07-27 20:21:34 2022-07-27 20:21:34 Emergency E MERGENSHERRI [facility] [id number] 2022-06-29 08:33:38 2022-06-29 08:33:38 Outpatient ISAÍAS CARDENAS [facility] [id number] 2022-06-24 14:36:56 2022-06-24 14:36:56 Outpatient ZHENG ROLAND [address] [id number] 2022-05-12 06:37:15 2022-06-07 11:56:25 Outpatient ISAÍAS CARDENAS [facility] [id number] 2022-06-01 07:47:42 2022-06-01 07:47:42 Outpatient ISAÍAS CARDENAS [facility] [id number] 2022-05-24 09:43:01 2022-05-24 09:43:01 Outpatient MIKE ANN JR [address] [id number] 2022-05-18 13:03:41 2022-05-18 13:03:41 Outpatient VERO EDWARDS [facility] [id number] 2022-05-14 07:35:37 2022-05-14 23:59:00 Outpatient C ISAÍAS CARDENAS [facility] [id number] 2022-05-14 08:48:36 2022-05-14 08:48:36 Outpatient ISAÍAS CARDENAS [facility] [id number] 2022-03-31 14:43:38 2022-03-31 14:43:38 Outpatient ISAÍAS CARDENAS [facility] [id number] 2022-03-23 12:44:23 2022-03-23 12:44:23 Outpatient [facility]O [facility] [id number] 2022-03-12 08:31:00 2022-03-12 23:59:00 Outpatient MIKE LAURENT JR [address] [id number] 2022-03-12 10:28:22 2022-03-12 10:28:22 Outpatient MIKE ANN JR [address] [id number] 2022-03-09 08:27:57 2022-03-09 08:27:57 Outpatient ISAÍAS CARDENAS [facility] [id number] 2022-02-23 12:31:35 2022-02-23 12:31:35 Outpatient [facility]O [facility] [id number] 2022-02-14 17:48:00 2022-02-14 19:48:00 Emergency E BYRON DERAS [facility] [id number] 2022-02-14 17:03:56 2022-02-14 17:03:56 [facility] [id number] 2022-02-09 10:35:29 2022-02-09 10:35:29 Outpatient ISAÍAS CARDENAS [facility] [id number] 2022-02-02 19:59:12 2022-02-02 19:59:12 Outpatient MIKE ANN JR [address] [id number] 2022-01-25 09:04:00 2022-01-25 23:59:00 Outpatient MIKE LAURENT JR [address] [id number] 2022-01-25 08:35:02 2022-01-25 08:35:02 Outpatient MIKE ANN JR [address] [id number] 2022-01-13 09:07:40 2022-01-13 23:59:00 Outpatient HIEU BALTAZAR [facility] [id number] 2022-01-13 12:06:07 2022-01-13 12:06:07 Outpatient MITA OLSON [facility] [id number] 2022-01-12 09:12:49 2022-01-12 09:12:49 Outpatient CARDENAS, ISAÍAS [facility] [id number] 2021-12-25 17:50:36 2021-12-25 23:59:00 Outpatient ISAÍAS PÉREZ [facility] [id number] 2021-12-25 07:36:18 2021-12-25 07:36:18 Outpatient ISAÍAS CARDENAS [facility] [id number] 2021-12-09 10:37:19 2021-12-09 10:37:19 Outpatient ISAÍAS CARDENAS [facility] [id number] 2021-11-12 09:02:41 2021-11-12 09:02:41 Outpatient ISAÍAS CARDENAS [facility] [id number] 2021-10-15 09:36:59 2021-10-15 09:36:59 Outpatient ISAÍAS CARDENAS [facility] [id number] 2021-09-22 09:08:39 2021-09-22 09:08:39 Outpatient EVANGELISTA SEGURA [facility] [id number] 2021-09-22 09:08:06 2021-09-22 09:08:06 Outpatient [facility] [id number] 2021-09-16 08:42:06 2021-09-16 08:42:06 Outpatient ISAÍAS CARDENAS [facility] [id number] 2021-09-04 15:25:43 2021-09-04 15:25:43 Outpatient MIKE ANN JR [address] [id number] 2021-08-20 14:14:51 2021-08-20 14:14:51 Outpatient ISAÍAS CARDENAS [facility] [id number] 2021-08-10 10:54:28 2021-08-10 10:54:28 Outpatient [facility] [id number] 2021-08-03 08:53:00 2021-08-03 23:59:00 Outpatient MIKE LAURENT JR [address] [id number] 2021-08-03 14:06:17 2021-08-03 14:06:17 Outpatient MIKE ANN JR [address] [id number] 2021-07-21 14:31:43 2021-07-21 14:31:43 Outpatient ISAÍAS CARDENAS [facility] [id number] 2021-07-08 08:34:43 2021-07-08 23:59:00 Outpatient HIEU PRATT [facility] [id number] 2021-07-08 10:02:49 2021-07-08 10:02:49 Outpatient HIEU BROWN [facility] [id number] 2021-06-28 14:10:00 2021-06-28 23:59:00 Outpatient SHARON HAM [address] [id number] 2021-06-28 12:34:16 2021-06-28 12:34:16 Outpatient SHARON WILSON [address] [id number] 2021-06-16 15:29:09 2021-06-16 15:29:09 Outpatient ISAÍAS CARDENAS [facility] [id number] 2021-05-14 13:24:10 2021-05-14 13:24:10 Outpatient ISAÍAS CARDENAS [facility] [id number] 2021-04-16 14:46:27 2021-04-16 14:46:27 Outpatient MIKE ANN JR [address] [id number] 2021-04-15 14:10:43 2021-04-15 14:10:43 Outpatient ISAÍAS CARDENAS [facility] [id number] 2021-04-03 10:16:00 2021-04-03 23:59:00 Outpatient Reddy MIKE ANN JR [address] [id number] 2021-04-03 11:14:12 2021-04-03 11:14:12 Outpatient MIKE ANN JR [address] [id number] 2021-03-30 17:22:18 2021-03-30 17:22:18 Outpatient MIKE ANN JR [address] [id number] 2021-03-24 12:46:17 2021-03-24 12:46:17 Outpatient KVNG BAH [address] [id number] 2021-03-20 09:52:00 2021-03-20 14:11:00 Emergency BYRON DERAS [facility] [id number] 2021-03-20 10:37:05 2021-03-20 10:37:05 Emergency AZKIA ALEXIS [facility] [id number] 2021-03-19 13:55:18 2021-03-19 13:55:18 Outpatient ISAÍAS CARDENAS [facility] [id number] 2021-03-04 08:08:00 2021-03-04 23:59:00 Outpatient ANGEL DE LA ROSA [address] [id number] 2021-03-04 19:38:18 2021-03-04 19:38:18 Outpatient MILLIGANKEKEEL [address] [id number] 2021-02-19 14:35:44 2021-02-19 14:35:44 Outpatient ISAÍAS CARDENAS [facility] [id number] 2021-01-29 11:33:39 2021-01-29 11:33:39 Outpatient CLEOPATRA ALLEN [address] [id number] 2021-01-27 15:26:00 2021-01-27 23:59:00 Outpatient MIKE LAURENT JR [address] [id number] 2021-01-27 10:55:27 2021-01-27 10:55:27 Outpatient MIKE ANN JR [address] [id number] 2020-12-31 11:16:00 2020-12-31 23:59:00 Outpatient C HIEU BROWN [facility] [id number] 2020-12-31 08:13:19 2020-12-31 11:15:00 Outpatient MIKE LAURENT JR [facility] [id number] 2020-12-31 10:09:07 2020-12-31 10:09:07 Raul- MIKE ANN JR [facility] [id number] 2020-12-31 10:05:41 2020-12-31 10:05:41 Outpatient HIEU BROWN [facility] [id number] 2020-12-31 07:26:09 2020-12-31 08:12:00 Outpatient MITA PERRY [facility] [id number] 2020-12-25 13:27:12 2020-12-25 13:27:12 Outpatient ISAÍAS CARDENAS [facility] [id number] 2020-12-23 08:59:21 2020-12-23 08:59:21 Outpatient ISAÍAS CARDENAS [facility] [id number] 2020-12-19 09:30:50 2020-12-19 23:59:00 Outpatient ISAÍAS PÉREZ [facility] [id number] 2020-12-19 09:33:02 2020-12-19 09:33:02 Raul-sudhakar ISAÍAS CARDENAS [facility] [id number] 2020-12-19 07:25:14 2020-12-19 07:25:14 Outpatient ISAÍAS CARDENAS [facility] [id number] 2020-11-27 13:27:55 2020-11-27 14:44:29 Raul-sudhakar ISAÍAS CARDENAS [facility] [id number] 2020-11-03 05:26:00 2020-11-03 12:13:00 Outpatient IMELDA DOUGLAS [facility] [id number] 2020-11-03 06:56:53 2020-11-03 06:56:53 Outpatient Reddy [facility] [id number] 2020-10-24 14:33:19 2020-10-24 14:33:19 Outpatient IMELDA SWAN [facility] [id number] 2020-10-19 20:27:00 2020-10-19 22:31:00 Emergency E PRIYANKA LIN [facility] [id number] 2020-10-15 16:22:00 2020-10-15 19:21:00 Emergency MOE VARGAS [facility] [id number] 2020-10-15 17:35:26 2020-10-15 17:35:26 Raul- MOE VARGAS [facility] [id number] 2020-10-15 16:54:32 2020-10-15 16:54:32 Emergency E ZAKIA MCCOY [facility] [id number] 2020-09-16 10:54:00 2020-09-16 23:59:00 Outpatient Reddy ANN JR MIKE [address] [id number] 2020-09-16 15:13:31 2020-09-16 15:13:31 Outpatient NAVEEN TEAGUE MIKE [address] [id number] 2020-09-11 10:05:00 2020-09-11 13:18:00 Emergency E BESS COPELAND [facility] [id number] 2020-09-11 10:44:40 2020-09-11 10:44:40 Emergency C BESS COPELAND [facility] [id number] 2020-09-11 10:15:52 2020-09-11 10:15:52 Emergency E KUSUM MCKEON [facility] [id number] 2020-08-25 12:53:37 2020-08-25 12:53:37 Outpatient ISAAK BUSTAMANTE [facility] [id number] 2020-08-25 07:12:12 2020-08-25 07:12:12 Outpatient ISAAK WOOD [facility] [id number] 2020-07-24 13:51:52 2020-07-24 13:51:52 Outpatient NAVEEN TEAGUEMARYCRUZMIKE [address] [id number] 2020-07-19 18:03:00 2020-07-19 19:57:00 Emergency E PRIYANKA LIN [facility] [id number] 2020-07-19 18:28:50 2020-07-19 18:28:50 Emergency E LIZ ELMORE [facility] [id number] 2020-07-19 18:28:46 2020-07-19 18:28:46 Emergency E SELFLIZ [facility] [id number] 2020-06-27 10:04:41 2020-06-27 10:04:41 Outpatient MIKE ANN JR [address] [id number] 2020-05-28 09:34:41 2020-05-28 23:59:00 Outpatient C WON OH [facility] [id number] 2020-05-28 11:39:32 2020-05-28 11:39:32 Outpatient MITA OLSON [facility] [id number] 2020-05-01 16:19:24 2020-05-05 01:06:28 Outpatient LUCILLE NEVAREZ [address] [id number] 2020-05-02 01:26:51 2020-05-02 01:26:51 Outpatient NAVEEN MIKE TEAGUE [address] [id number] 2020-05-01 16:16:07 2020-05-01 16:16:07 Outpatient LUCILLE NEVAREZ [address] [id number] 2020-02-03 12:11:15 2020-02-03 13:53:00 Emergency E QUANG GRIMM [facility] [id number] 2020-01-15 11:58:29 2020-01-19 01:04:56 Outpatient MIKE ANN JR [address] [id number] 2019-12-05 08:26:17 2019-12-05 23:59:00 Outpatient WON DAWN [facility] [id number] 2019-12-05 10:48:41 2019-12-05 10:48:41 Outpatient WON OH [facility] [id number] 2019-11-20 22:51:09 2019-11-20 22:51:09 Outpatient NAVEEN MARYCRUZ TEAGUEREY [address] [id number] 2019-10-19 20:22:26 2019-10-19 20:22:26 Outpatient MIKE ANN JR [address] [id number] 2019-10-09 11:26:27 2019-10-09 11:26:27 Outpatient NAVEEN TEAGUE MIKE [address] [id number] 2019-08-24 09:22:13 2019-08-24 23:59:00 Outpatient C ISAÍAS CARDENAS [facility] [id number] 2019-08-22 08:00:42 2019-08-22 23:59:00 Outpatient C HIEU BROWN [facility] [id number] 2019-08-22 09:39:00 2019-08-22 09:39:00 Outpatient WON OH [facility] [id number] 2019-08-16 15:30:26 2019-08-20 01:04:49 Outpatient MIKE ANN JR [address] [id number] 2019-08-07 11:26:22 2019-08-11 01:05:42 Outpatient MIKE ANN JR [address] [id number] 2019-08-10 16:25:39 2019-08-10 16:25:39 Outpatient FAITH SANTANA [address] [id number] 2019-08-09 13:53:00 2019-08-09 13:53:00 Emergency E QUANG GRIMM [facility] [id number] 2019-08-02 09:48:08 2019-08-06 01:14:04 Outpatient ISAÍAS CARDENAS [facility] [id number] 2019-07-27 15:38:00 2019-07-27 15:38:00 Emergency E JIM SCOTT [facility] [id number] 2019-07-20 16:13:28 2019-07-20 16:13:28 Outpatient FAITH SANTANA [address] [id number] 2019-07-13 13:41:10 2019-07-13 17:11:00 Emergency E MOE VARGAS [facility] [id number] 2019-07-05 09:51:55 2019-07-09 01:11:50 Outpatient ISAÍAS CARDENAS [facility] [id number] 2019-07-06 08:45:12 2019-07-06 23:59:00 Outpatient Reddy TITUSCARDENASISAÍAS [facility] [id number] 2019-05-21 09:42:43 2019-05-25 01:12:49 Outpatient ISAÍAS CARDENAS [facility] [id number] 2019-04-20 11:38:17 2019-04-20 23:59:00 Outpatient RACHANA PÉREZUS [facility] [id number] 2019-04-17 15:53:00 2019-04-17 15:53:00 Outpatient ISAÍAS CARDENAS [facility] [id number] 2019-04-10 13:55:59 2019-04-10 23:59:00 Outpatient Reddy CARDENASISAÍAS LI [facility] [id number] 2019-04-05 12:12:04 2019-04-09 01:06:58 Outpatient KVNG BHA [address] [id number] 2019-03-22 08:31:48 2019-03-26 01:14:11 Outpatient ISAÍAS CARDENAS [facility] [id number] 2019-02-27 12:39:51 2019-03-03 01:05:[address] [id number] 2019-02-27 11:02:45 2019-03-03 01:05:00 Outpatient MIKE ANN JR [address] [id number] 2019-02-14 07:57:03 2019-02-18 01:09:55 Outpatient Reddy Mita Olson [facility] [id number] 2019-02-17 19:09:49 2019-02-17 20:50:00 Emergency E DELIA PRIYANKA [facility] [id number] 2019-02-16 10:29:18 2019-02-16 23:59:00 Outpatient Reddy CARDENASISAÍAS [facility] [id number] 2019-02-15 10:13:22 2019-02-15 10:13:22 Outpatient HIEU BROWN [facility] [id number] 2019-02-14 07:57:25 2019-02-14 07:57:25 Outpatient Reddy ABRAM OLSON [facility] [id number] 2019-01-22 08:21:03 2019-01-26 01:13:17 Outpatient ISAÍAS CARDENAS [facility] [id number] 2018-12-22 12:22:39 2018-12-26 01:05:[address] [id number] 2018-12-22 11:00:10 2018-12-26 01:05:04 Outpatient MIKE ANN JR [address] [id number] 2018-12-22 10:54:10 2018-12-22 23:59:00 Outpatient MIKE LAURENT JR [address] [id number] 2018-12-04 10:15:18 2018-12-05 01:17:20 Outpatient ISAÍAS CARDENAS [facility] [id number] 2018-12-01 12:16:10 2018-12-01 23:59:00 Outpatient ISAÍAS PÉREZ [facility] [id number] 2018-11-23 08:05:20 2018-11-27 01:10:32 Outpatient ISAÍAS CARDENAS [facility] [id number] 2018-09-25 08:04:11 2018-09-29 01:11:40 Outpatient ISAÍAS CARDENAS [facility] [id number] 2018-09-12 13:37:31 2018-09-12 13:37:31 Outpatient MIKE ANN JR [address] [id number] 2018-08-25 12:37:14 2018-08-29 01:05:15 Outpatient PARTH LEMOS [address] [id number] 2018-08-28 10:08:16 2018-08-28 10:08:16 Outpatient JEN OLIVIA [address] [id number] 2018-08-18 07:58:36 2018-08-22 01:09:00 Outpatient Reddy Whitney Shraddhakurtis Santiago [facility] [id number] 2018-08-18 08:00:18 2018-08-18 23:59:00 Outpatient Reddy WHITNEY SHRADDHAVINCENT [facility] [id number] 2018-08-18 10:03:14 2018-08-18 10:03:14 Outpatient WHITNEY [facility] [id number] 2018-08-03 01:49:12 2018-08-03 01:49:12 Outpatient MIKE ANN JR [address] [id number] 2018-07-27 10:06:11 2018-07-31 01:11:26 Outpatient ISAÍAS CARDENAS [facility] [id number] 2018-06-30 11:43:34 2018-07-04 01:10:57 Outpatient ISAÍAS CARDENAS [facility] [id number] 2018-06-30 08:59:40 2018-06-30 23:59:00 Outpatient ISAÍAS PÉREZ [facility] [id number] 2018-06-22 08:39:54 2018-06-26 01:05:02 Outpatient MIKE ANN JR [facility] [id number] 2018-06-26 00:12:55 2018-06-22 23:59:00 Outpatient MIKE LAURENT JR [facility] [id number] 2018-06-22 07:56:22 2018-06-22 23:59:00 Outpatient MIKE LAURENT JR [facility] [id number] 2018-06-13 08:04:10 2018-06-13 23:59:00 Outpatient MIKE LAURENT JR [facility] [id number] 2018-06-13 08:04:00 2018-06-13 08:04:00 Outpatient MIKE LAURENT JR [facility] [id number] 2018-05-30 08:21:13 2018-05-30 09:12:30 Outpatient ISAÍAS CARDENAS [facility] [id number] 2018-05-16 08:54:02 2018-05-20 01:05:13 Outpatient CIERRA BOWMANLAURA [facility] [id number] 2018-05-19 17:58:31 2018-05-19 17:58:31 Outpatient MIKE ANN JR [facility] [id number] 2018-05-15 08:48:19 2018-05-19 01:04:33 Outpatient MIKE ANN JR [facility] [id number] 2018-05-16 08:44:55 2018-05-16 08:44:55 Outpatient JAYDEN CARLISLE [facility] [id number] 2018-05-15 15:12:03 2018-05-15 23:59:00 Outpatient Reddy SPENCERP MIKE TEAGUE [facility] [id number] 2018-05-01 09:25:11 2018-05-05 01:08:08 Outpatient Mita Perry [facility] [id number] 2018-05-02 11:13:38 2018-05-02 11:13:38 Outpatient ABRAM OLSON [facility] [id number] 2018-05-01 09:25:29 2018-05-01 23:59:00 Outpatient ABRAM PERRY [facility] [id number] 2018-04-27 13:37:39 2018-05-01 01:04:37 Outpatient PARTH LEMOS [facility] [id number] 2018-04-25 08:02:03 2018-04-29 01:08:58 Outpatient ISAÍAS CARDENAS [facility] [id number] 2018-04-18 10:53:04 2018-04-22 01:05:10 Outpatient AMINA BOWMAN [facility] [id number] 2018-04-18 12:51:43 2018-04-18 23:59:00 Outpatient AMINA ROBLES [facility] [id number] 2018-04-03 09:51:25 2018-04-07 01:05:06 Outpatient MARGE BARBER [facility] [id number] 2018-04-05 06:11:00 2018-04-05 11:07:00 Outpatient AMINA ROBLES [facility] [id number] 2018-04-03 17:51:21 2018-04-03 23:59:00 Outpatient MIKE LAURENT JR [facility] [id number] 2018-03-27 08:16:11 2018-03-27 08:43:12 Outpatient ISAÍAS CARDENAS [facility] [id number] 2018-03-21 09:28:55 2018-03-25 01:07:37 Outpatient Marco Laurent [facility] [id number] 2018-03-16 08:52:34 2018-03-20 01:04:35 Outpatient MIKE ANN JR [facility] [id number] 2018-03-13 13:47:22 2018-03-17 01:05:22 Outpatient PARTH LEMOS [facility] [id number] 2018-03-16 22:34:52 2018-03-16 23:59:00 Outpatient MIKE LAURENT JR [facility] [id number] 2018-03-16 11:13:40 2018-03-16 22:33:00 Outpatient MIKE LAURENT JR [facility] [id number] 2018-03-16 22:32:06 2018-03-16 22:32:06 Outpatient MIKE ANN JR [facility] [id number] 2018-02-27 12:19:10 2018-02-27 12:19:10 Outpatient CARL PALMER [facility] [id number] 2018-02-09 11:49:43 2018-02-13 01:05:08 Outpatient AMINA BOWMAN [facility] [id number] 2018-02-01 13:37:36 2018-02-05 01:05:59 Outpatient PARTH LEMOS [facility] [id number] 2018-01-26 08:24:26 2018-01-26 08:53:50 Outpatient ISAÍAS CARDENAS [facility] [id number] 2018-01-13 10:13:22 2018-01-17 01:08:29 Outpatient ISAÍAS CARDENAS [facility] [id number] 2018-01-15 17:28:42 2018-01-15 17:28:42 Outpatient MIKE ANN JR [facility] [id number] 2018-01-13 07:39:29 2018-01-13 23:59:00 Outpatient ISAÍAS PÉREZ [facility] [id number] 2017-12-16 00:14:08 2017-12-16 00:14:08 Outpatient MIKE ANN JR [facility] [id number] 2017-12-07 14:38:03 2017-12-07 14:38:03 Outpatient BRIANDAOLIVEREN [facility] [id number] 2017-11-28 07:19:15 2017-11-28 08:30:13 Outpatient ISAÍAS CARDENAS [facility] [id number] 2017-11-22 10:02:23 2017-11-26 01:04:45 Outpatient JOJO FREIRE [facility] [id number] 2017-11-18 14:19:41 2017-11-22 01:04:22 Outpatient VAL RIC [facility] [id number] 2017-11-17 19:44:40 2017-11-17 21:04:00 Emergency E PRIYANKA LIN [facility] [id number] 2017-11-10 16:31:58 2017-11-10 16:31:58 Outpatient RACHELE MARX [facility] [id number] 2017-11-01 10:29:12 2017-11-01 23:59:00 Outpatient MIKE LAURENT JR [facility] [id number] 2017-10-27 11:34:37 2017-10-27 11:34:37 Outpatient ABRAM OLSON [facility] [id number] 2017-10-27 11:24:27 2017-10-27 11:24:27 Outpatient RACHELE MARX [facility] [id number] 2017-10-24 15:43:47 2017-10-24 15:43:47 Outpatient NU ROSS [facility] [id number] 2017-10-11 09:48:00 2017-10-19 13:30:00 Inpatient ANGY RUIZ [facility] [id number] 2017-10-05 11:09:40 2017-10-05 11:09:40 Outpatient NU ROSS [facility] [id number] 2017-10-03 13:26:51 2017-10-03 13:26:51 Outpatient ANGY MOORE [facility] [id number] 2017-09-29 11:21:05 2017-09-29 11:21:05 Outpatient ANGY MOORE [facility] [id number] 2017-09-29 10:21:54 2017-09-29 10:21:54 Outpatient JOSE ISAÍAS [facility] [id number] 2017-09-23 12:54:02 2017-09-23 12:54:02 Outpatient NU ROSS [facility] [id number] 2017-09-21 13:07:01 2017-09-21 13:07:01 Outpatient NU ROSS [facility] [id number] 2017-09-21 13:05:02 2017-09-21 13:05:02 Outpatient NU ROSS [facility] [id number] 2017-09-12 15:47:30 2017-09-12 15:47:30 Outpatient TRINIDADI [facility] [id number] 2017-09-08 17:03:08 2017-09-08 17:03:08 Outpatient ISAÍAS CARDENAS [facility] [id number] 2017-09-08 16:19:49 2017-09-08 16:19:49 Outpatient NU ROSS [facility] [id number] 2017-09-08 15:41:39 2017-09-08 15:41:39 Outpatient NU ROSS [facility] [id number] 2017-09-07 12:44:54 2017-09-07 12:44:54 Outpatient DAINA LOVELL [facility] [id number] 2017-09-05 13:22:41 2017-09-05 13:22:41 Outpatient [facility]U [facility]S [facility] [id number] 2017-09-05 13:20:08 2017-09-05 13:20:08 Outpatient NU [facility]S [facility] [id number] 2017-09-01 13:06:12 2017-09-01 13:06:12 Outpatient NU ROSS [facility] [id number] 2017-08-31 14:40:29 2017-08-31 14:40:29 Outpatient RACHELE MARX [facility] [id number] 2017-08-30 11:06:50 2017-08-30 23:59:00 Outpatient Reddy [facility]ENSON [facility] [id number] 2017-08-30 15:52:21 2017-08-30 15:52:21 Outpatient BENSON FONSECA [facility] [id number] 2017-08-26 15:40:13 2017-08-26 15:40:13 Outpatient [facility]SON FONSECA [facility] [id number] 2017-08-26 09:42:40 2017-08-26 09:42:40 Outpatient NU ROSS [facility] [id number] 2017-08-26 09:37:14 2017-08-26 09:37:14 Outpatient NU ROSS [facility] [id number] 2017-08-26 09:15:22 2017-08-26 09:15:22 Outpatient VICENTA KAYLAN [facility] [id number] 2017-08-26 08:34:31 2017-08-26 08:34:31 Outpatient KAYLAN YADAV [facility] [id number] 2017-08-25 08:36:38 2017-08-25 08:36:38 Outpatient JAIMEPHAM [facility]SON [facility] [id number] 2017-08-22 20:14:52 2017-08-22 20:14:52 Outpatient MIKE ANN JR[facility] [id number] 2017-08-16 11:43:14 2017-08-16 11:43:14 Outpatient MIKE ANN JR[facility] [id number] 2017-08-12 14:15:28 2017-08-16 01:04:59 Outpatient MIKE ANN JR[facility] [id number] 2017-08-15 12:54:32 2017-08-15 23:59:00 Outpatient C APOLLO MORGAN [facility] [id number] 2017-08-15 08:50:07 2017-08-15 12:44:00 Outpatient MIKE LAURENT JR [facility] [id number] 2017-08-15 12:38:46 2017-08-15 12:38:46 Outpatient FAITH SANTANA [facility] [id number] 2017-08-13 04:12:34 2017-08-13 23:59:00 Outpatient MIKE LAURENT JR [facility] [id number] 2017-08-12 03:18:12 2017-08-12 23:59:00 Outpatient MIKE LAURENT JR [facility] [id number] 2017-08-06 16:44:42 2017-08-06 19:49:00 Emergency E ANTONY GOMEZ [facility] [id number] 2017-08-01 07:29:44 2017-08-05 01:10:40 Outpatient ISAÍAS CARDENAS [facility] [id number] 2017-08-04 12:32:46 2017-08-04 12:32:46 Outpatient MIKE ANN JR [facility] [id number] 2017-08-02 18:45:58 2017-08-02 18:45:58 Outpatient KVNG BAH [facility] [id number] 2017-08-01 10:45:43 2017-08-01 23:59:00 Outpatient C RIGOBERTO DAVID [facility] [id number] 2017-08-01 10:45:32 2017-08-01 23:59:00 Outpatient Reddy FRANKLIN DAVID [facility] [id number] 2017-07-25 13:44:56 2017-07-29 01:05:46 Outpatient FREIREJOJO [facility] [id number] 2017-07-27 00:35:21 2017-07-27 00:35:21 Outpatient MIKE ANN JR [facility] [id number] 2017-07-27 00:35:21 2017-07-27 00:35:21 Outpatient MIKE ANN JR [facility] [id number] 2017-07-25 17:21:42 2017-07-25 17:21:42 Outpatient FAITH SANTANA [facility] [id number] 2017-07-23 18:39:47 2017-07-23 21:45:00 Emergency E RAAD TIDWELL [facility] [id number] 2017-07-05 20:36:18 2017-07-09 10:00:00 Inpatient MIKE GARIBAY JR[facility] [id number] 2017-07-01 20:54:38 2017-07-03 13:04:00 Inpatient E MIKE ANN JR[facility] [id number] 2017-06-03 12:12:53 2017-06-07 15:32:00 Inpatient MIKE GARIBAY JR[facility] [id number] 2017-03-04 18:51:00 2017-03-04 21:21:00 Emergency RAAD UMANZOR [facility] [id number] 2017-01-07 10:24:28 2017-01-07 10:24:28 Outpatient MIKE ANN JR[facility] [id number] Results Test Description Test Time Test Comments Text Results Atomic Results Result Comments CT CHEST WITH CONTRAST 2023-10-03 14:59:30 TO [place] for Faith Gerber, CT Chest with Contrast/Jorge [...] lung cancer, unspecified laterality; Pulmonary nodules Isovue [id number] CT CHEST WITH CONTRAST 2023-09-05 12:49:45 CT chest with contrast S. [place]/ Amelie/ MRwichoRN No contrast allergy/ ins [facility] medicare EXAM: CT CHEST WITH CONTRASTINDICATION: 68 [...] recent pneumoniaNo other concerns at this time.Isovue [id number] MAMMO DIGITAL 3D SCREENING BILATERAL 2023-08-31 13:48:21 [...] (test code = B12) 330 pg/ml 246-911 [id number] 00:49:00* Test Item Value Reference Range Comments TSH, 3rd Generation (test code = TSH3) 1.191 UIU/ml 0. 550-4.780 BMP with [id number] 00:43:00* Test Item Value Reference Range Comments Glucose (test code = GLUC) 89 mg/dl 70-100 For the purpose of classification, fasting Glucose from 100-125 mg/dl is considered impaired fasting Glucose (Pre-Diabetic) by the [place] [employer].Fasting Glucose > 125 mg/dl is [...] by the NKF-ASN Task Force. BMP with [id number] 02:28:00* Test Item Value Reference Range Comments Glucose (test code = GLUC) 113 mg/dl 70-100 For the purpose of classification, fasting Glucose from 100-125 mg/dl is considered impaired fasting Glucose (Pre-Diabetic) by the [place] [employer].Fasting Glucose > 125 mg/dl is [...] as recommended by the NKF-ASN Task Force. [id number] 02:28:00* Test Item Value Reference Range Comments Lipase (test code = LIP) 353 u/l 13-77 Lip ase method revision effective 12/14/22. Ranges and results prior to this date will not correlate. LA [id number] 22:05:00* Test Item Value Reference Range Comments Lactic Acid (test code = LA) 1.1 mmol/L 0.4-2.0 .Differential, [id number] 21:19:00* Test Item Value Reference Range Comments [...] (test code = AEOS) 0.2 k/ul 0.0-0.4 [place] Absolute (test code = AMONO) 0.3 k/ul 0.1-1.1 Platelet Estimate (test code = PLTE) High Norm al RBC Morphology (test code = RBCMOR) Normal Alice l Abs Neut (test code = ABSNEUT) 6.0 k/ul 1.5-8.0 .[id number] 21:15:00* Test Item Value Reference Range Comments Color (test code = COLOR) YELLOW Yellow Appearance (test code = GIULIANO) SL CLOUDY Clear Glucose (test code = UGLUC) NEGATIVE Negative Bilirubin (test code = BILE) NEGATIVE Negative Ketones (test code = UKET) NEGATIVE Negative Specific [place] (test code = SPGR) 1.025 <=1.0 30 Blood (test code = UBLD) NEGATIVE Negative pH (test code = UPH) 5.5 4.5-8.0 U Protein (test code = UPROT) NEGATIVE Negative Urobilinogen (test code = URO) 0.2 EU/dl 0.2-1.0 Nitrite (test code = NIT) NEGATIVE Negative Leukocyte Esterase (test code = LEST) NEGATIVE Neg ative .Urinalysis [id number] 21:15:00* Test Item Value Reference Range Comments RBC (test code = URBC) 0-2 /HPF <=5 WBC (test code = UWBC) 2-5 /HPF <=5 Bacteria (test code = BACT) 0-10 <=10 Squamous Epithelial (test code = USQEPI) 20-50 /HPF <=5 Culture if [id number] 21:15:00* Test Item Value Reference Range Comments Culture if indicated (test code = CULORD) NOT APPL If Culture Ordered? is Yes, culture results will be available on-line within 24-[address] ABDOMEN PELVIS WITH [id number] 21:00:15CT abdomen and pelvis with IV contrastComparison: [...] diarrhea, nausea, weakness. Unable to urinate.Nurse #: [phone] cc's isovue 370, well tolerated.Hx of lung cancer.9 - IndicatedXR CHEST 1 [id number] 20:06:25INDICATION: CoughCOMPARISON: 05/22/2023 and 03/20/2021.TECHNIQUE: Portable upright [...] chest without evidence of acute cardiopulmonary abnormality.I, Devon Kilgore MD, have personally reviewed the images and the resident's report and agree with the interpretation.[id number] 19:45:00* Test Item Value Reference Range Comments Lipase (test code = LIP) 122 u/l 13-77 Lip ase method revision effective 12/14/22. Ranges and results prior to this date will not correlate. CMP with [id number] 19:45:00* Test Item Value Reference Range Comments Glucose (test code = GLUC) 111 mg/dl 70-100 F or the purpose of classification, fasting Glucose from 100-125 mg/dl is considered impaired fasting Glucose (Pre-Diabetic) by the [place] [employer].Fasting Glucose > 125 mg/dl is [...] as recommended by the NKF-ASN Task Force. [id number] 19:28:00* Test Item Value Reference Range Comments [...] low density lipoprotein plus 30. BMP with [id number] 02:18:00* Test Item Value Reference Range Comments Glucose (test code = GLUC) 117 mg/dl 70-100 For the purpose of classification, fasting Glucose from 100-125 mg/dl is considered impaired fasting Glucose (Pre-Diabetic) by the [place] [employer].Fasting Glucose > 125 mg/dl is [...] recommended by the NKF-ASN Task Force. COVFLURSV [id number] 18:20:00* Test Item Value Reference Range Comments Influenza A by PCR (test cod e = INFAPCR) NEGATIVE NEGATIVE Influenza B by PCR (test cod e = INFBPCR) NEGATIVE Respiratory Syncytial Virus by PCR (test code = RSVPCR) NEGATIVE NEGATIVE The [employer]pert [employer] SARS-COV-2/Flu/RSVplus assay system is a real-time multiplex PCR that enables the direct amplification and detection of CoVid-19, Flu A, Flu B and RSV without nucleic acid extraction from appropriately collected specimens. The assay is approved by the FDA by the Emergency Use Authorization (EUA) process. Diagnosis of these viruses should be made using both clinical and laboratory information.Per [facility] of Health and Human Services regulations at 173-NAC (Communicable Diseases); mandated results are reported to the [place] Department of Health and Human Services, Division of Public Health, Office of Epidemiology, [address] [place] [address]. COVID-19 (test code = YWJLO18VI) NEGATIVE NEGATIVE XR CHEST 1 [id number] 17:27:55INDICATION: Shortness of BreathCOMPARISON: Chest x-ray 03/20/2021TECHNIQUE: [...] resident's report and agree with the interpretation.iStat [id number] 09:18:00* Test Item Value Reference Range Comments Creat POCT (test code = CREATRLS) 0.7 mg/dl 0.6-1.3 Spec Type POCT (test code = SPECRLS) CARIN GFR [id number] 09:18:00* Test Item Value Reference Range Comments eGFR (test code = GFRE) >90 mL/min/1.73 m2 >=90 EFFECTIVE JANUARY 12 022 : GFR is an estimated value based on the eGFRcr 2020 CKD-EPI equation, as recommended by the NKF-ASN Task Force. Respiratory Pathogen [id number] 21:08:00WindyIBIS Chacko t: /Age/Se 1955 68 years Female [id number] x: #:Procedure: Respiratory Pathogen Screen [^1 @1]Source: [facility]OSP[facility] [employer] Swab Body Site:Collected Date/Time: 04/25/2023 13:00 CDT Received Date/Time: 04/25/2023 19:00 CDTStart Date/Time: 04/25/2023 19:00 CDT Free Text Source: FINAL REPORTSFinal Report []Verified Date/Time/Personnel: 04/25/2023 21:07 CDTNo Respiratory Pathogens detected by multiplex PCR Interpretive Data^1: .Respiratory Pathogen Panel This assay detects Adenovirus, Coronavirus 229E, Coronavirus HKU1, Coronavirus NL63, Coronavirus OC43, Human Metapneumovirus, Human Rhinovirus/Enterovirus, Influenza Type A, Influenza A Subtype H1-2009, Influenza A Subtype H1, Influenza A Subtype H3, Influenza Type B, Parainfluenza 1, Parainfluenza 2, Parainfluenza 3, Parainfluenza 4, Respiratory Syncytial Virus, Bordetella pertussis, Bordetella parapertussis, Chlamydophila pneumoniae, Mycoplasma pneumoniae and Severe Acute Respiratory Syndrome Coronovirus 2 (Covid19) . Negative results [...] the Emergency Use Authorization (EUA) process. Per [facility] Health and Human Services regulations at 173-NAC(Communicable Diseases); mandated results are reported to the [facility] of Health and Human Services, Division of Public Health, Office of Epidemiology, [address] [place] [address]. Performing Locations @1: This test was performed at: [facility], [address] [place] [address], [place], [place], [facility] , [facility] FLUOROSCOPY [id number] 13:55:54Pain - soaresThis is a non-reportable study with no Radiologist dictation. Please refer to your PACS to review images, or Doc Flowsheets for documentation on studies without images.CT ABDOMEN PELVIS WITH [id number] 12:59:10REASON FOR EXAM: Gross hematuriaCOMPARISON: 3DISCUSSION: Axial [...] lung cancer, hematuria, ruling out cancer 75cc [id number] - MarginalCMP with [id number] 02:20:00* Test Item Value Reference Range Comments Glucose (test code = GLUC) 101 mg/dl 70-100 F or the purpose of classification, fasting Glucose from 100-125 mg/dl is considered impaired fasting Glucose (Pre-Diabetic) by the [place] [employer].Fasting Glucose > 125 mg/dl is [...] the NKF-ASN Task Force. CT CHEST WITH [id number] 10:27:50CT CHEST W/ CONTRASTDRAW FOR I STAT CREATININE UPON ARRIVAL, NO [facility], OFC TO INSTRUCT PT02 [...] LUNG CA,75 cc isovue 370,Urine Culture 2022-11-12 14:42:00Amanda TAY IBIS Walter t: /Age/Se 1955 67 years Female [id number] x: #:Procedure: Culture Urine [^1 @1] Source: Urine Body Site: UrineCollected Date/Time: 11/11/2022 13:27 CDT Received Date/Time: 11/11/2022 19:44 CDTStart Date/Time: 11/11/2022 19:45 CDT Free Text Source: FINAL REPORTSFinal Report []Verified Date/Time/Personnel: 11/12/2022 14:42 CDTNo growth (<1000 cfu/ml) at 1 day. Interpretive Data^1: Culture Urine Per [facility] Health and Human Services regulations at 173-NAC (Communicable Diseases); mandated results are reported to the [place] [facility], Division of Public Health,Office of Epidemiology, [address] [place] [address], [place], [place]. Performing Locations@1: This test was performed at: [facility], [address] [place] [address], [place], [address]- , USACT HEAD WITHOUT [id number] 11:10:22 REASON FOR EXAM: Posttraumatic headache.DISCUSSION:Technique: Axial [...] (Age >= 50y), Post-concussion headacheHold and Call [phone] - IndicatedCT CHEST WITH [id number] 10:34:39Order: ct chest w contrastNo contrast allergyISTAT [...] of bronchus in left upper lobe Isovue [id number] ValidatedCT ABDOMEN PELVIS WITH [id number] 21:00:43REASON FOR EXAM: RLQ abdominal pain (Age [...] groin, s urgery scheduled 08/12/22, states pain [id number] - Indicated.[id number] 20:18:00* Test Item Value Reference Range Comments Color (test code = COLOR) YELLOW Yellow Appearance (test code = GIULIANO) CLEAR Clear Glucose (test code = UGLUC) NEGATIVE Negative Bilirubin (test code = BILE) SMALL Negative Ketones (test code = UKET) NEGATIVE Negative Specific [place] (test code = SPGR) 1.030 <=1.0 30 Blood (test code = UBLD) NEGATIVE Negative pH (test code = UPH) 6.0 4.5-8.0 U Protein (test code = UPROT) NEGATIVE Negative Urobilinogen (test code = URO) 0.2 EU/dl 0.2-1.0 Nitrite (test code = NIT) NEGATIVE Negative Leukocyte Esterase (test code = LEST) TRACE Neg ative CMP with [id number] 20:09:00* Test Item Value Reference Range Comments Glucose (test code = GLUC) 101 mg/dl 70-100 For the purpose of classification, fasting Glucose from 100-125 mg/dl is considered impaired fasting Glucose (Pre-Diabetic) by the [place] Diabetes Association.Fasting Glucose > 125 mg/dl is [...] as recommended by the NKF-ASN Task Force. [id number] 19:54:00* Test Item Value Reference Range Comments [...] code = MPV) 9.5 fl 8.5-12.5 .Differential, [id number] 19:54:00* Test Item Value Reference Range Comments [...] (test code = ALYM) 1.8 k/ul 1.0-4.5 [place] Absolute (test code = AMONO) 0.2 k/ul 0.1-1.1 Eos Abs (test code = AEOS) 0.1 k/ul 0.0-0.4 Baso Absolute (test code = ABASO) 0.0 k/ul 0.0-0.1 FL FLUOROSCOPY [id number] 14:36:15ASC Pain Injection w/ C-ArmThis is a non-reportable study with no Radiologist dictation. Please refer to your PACS to review images, or Doc Flowsheets for documentation on studies without images. BMP with [id number] 03:58:00* Test Item Value Reference Range Comments Glucose (test code = GLUC) 88 mg/dl 70-100 For the purpose of classification, fasting Glucose from 100-125 mg/dl is considered impaired fasting Glucose (Pre-Diabetic) by the [place] Diabetes Association.Fasting Glucose > 125 mg/dl is [...] as recommended by the NKF-ASN Task Force. [id number] 19:13:00* Test Item Value Reference Range Comments Lipase (test code = LIP) 145 u/l 73-393 Magnesium [id number] 19:13:00* Test Item Value Reference Range Comments Magnesium (test code = MG) 2.0 mg/dl 1.8-2.6 CMP with [id number] 19:13:00* Test Item Value Reference Range Comments Glucose (test code = GLUC) 117 mg/dl 70-100 For the purpose of classification, fasting Glucose from 100-125 mg/dl is considered impaired fasting Glucose (Pre-Diabetic) by the [place] Diabetes [employer].Fasting Glucose > 125 mg/dl is [...] recommended by the NKF-ASN Task Force. hsTroponin [id number] 18:45:00* Test Item Value Reference Range Comments [...] on 99th percentileMale <77.0 ng/LFemale <52.0 ng/L [id number] 18:25:00* Test Item Value Reference Range Comments [...] code = MPV) 9.6 fl 8.5-12.5 .Differential, [id number] 18:25:00* Test Item Value Reference Range Comments [...] (test code = ALYM) 1.8 k/ul 1.0-4.5 [place] Absolute (test code = AMONO) 0.2 k/ul [...] = VLDL) 28 mg/dl <=30 BMP with [id number] 21:24:00* Test Item Value Reference Range Comments Glucose (test code = GLUC) 97 mg/dl 70-100 For the purpose of classification, fasting Glucose from 100-125 mg/dl is considered impaired fasting Glucose (Pre-Diabetic) by the [place] [employer].Fasting Glucose > 125 mg/dl is [...] the NKF-ASN Task Force. 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 Please refer to PACS to view the images.[id number] 02:47:00* Test Item Value Reference Range Comments COVID19 (test code = NIPNT61B) Negative The [employer] SARS-CoV- 2 assay system is a nucleic acid amplification in vitro diagnostic test intended for the qualitative detection of RNA. Two conserved regions of the ORF1ab gene os SARS-CoV-2 are detected.The assay is approved by the FDA by the Emergency Use Authorization (EUA) process. Diagnosis of CoVID-19 should be made using both clinical and laboratory information. BMP with [id number] 20:53:00* Test Item Value Reference Range Comments Glucose (test code = GLUC) 87 mg/dl 70-100 F or the purpose of classification, fasting Glucose from 100-125 mg/dl is considered impaired fasting Glucose (Pre-Diabetic) by the [place] Diabetes [employer].Fasting Glucose > 125 mg/dl is [...] the CK-EPI [address] CHEST WITH [id number] 09:25:03Ct chest with iv contrastNo contrast allergyuhc [...] coronary artery calcification.CALL REPORT TO CANCER CENTER [phone], APPT THIS AM, f/u for lung cancer, 75 cc isovue 370, had lobectomyiStat [id number] 09:04:00* Test Item Value Reference Range Comments Creat POCT (test code = CREATRLS) 0.7 mg/dl 0.6-1.3 Spec Type POCT (test code = SPECRLS) Venous GFR [id number] 09:04:00* Test Item Value Reference Range Comments eGFR (test code = GFRE) 89 mL/min/1.73 m2 >=90 GFR is an estimated GFR using IDMS-traceable Creatinine assay result based on the CK-EPI 2009 equation. [id number] 07:18:00* Test Item Value Reference Range Comments COVID19 (test code = IPBXJ17L) Negative The [employer] SARS-CoV- 2 assay system is a nucleic acid amplification in vitro diagnostic test intended for the qualitative detection of RNA. Two conserved regions of the ORF1ab gene os SARS-CoV-2 are detected.The assay is approved by the FDA by the Emergency Use Authorization (EUA) process. Diagnosis of CoVID-19 should be made using both clinical and laboratory information. Urine [id number] 22:55:00atient: TAYIBIS MILLER Jose Angel /Age/ 1955 66 years Female [id number] Sex: #: Procedure: Culture Urine [^1 @1] Source: Urine Body Site:Collected Da te/Time: 04/03/2021 13:25 CDT Received Date/Time: 04/03/2021 18:20 CDTStart Date/Time: 04/03/2021 18:20 CDT Free Text Source: FINAL REPORTSFinal Report []Verified Date/Time/Personnel: 04/04/2021 22:55 CDT80,000 cfu/ml Escherichia coli PRELIMINARY REPORTSPreliminary Report []Verified Date/Time/Personnel: 04/04/2021 14:12 CDT80,000 cfu/ml Escherichia coliSusceptibility to follow. SUSCEPTIBILITY RESULTS Escherichia coliAntibiotic MDIL MINTAmpicillin 8 SusceptibleCefazolin (Urine) <=4 SusceptibleCeftriaxone <=1 SusceptibleCiprofloxacin <=0.25 SusceptibleGentamicin <=1 Chew sceptibleLevofloxacin <=0.12 SusceptibleNitrofurantoin <=16 SusceptibleTrimethoprim/Sulfa <=08/05 SusceptibleInterpretive Data^1: Culture Urine Per [facility] Health and Human Services regulations at 173- NAC (Communicable Diseases); mandated results are reported to the [facility] of Health and Human Services, Division of Public Health, Office of Epidemiology, [address] [place] [address]. Performing Locations@1: This test was performed at: [facility], [address] [place] [address], [id number]- , [id number] 17:17:00* Test Item Value Reference Range Comments COVID19 (test code = CCRRJ55V) Not Detected Not Detected The [employer] CoVID-1 [...] made using both clinical and laboratory information.Per [facility] Health and Human Services regulations at 173-NAC (Communicable Diseases); mandated results are reported to the [facility] Health and Human Services, Division of Public Health, Office of Epidemiology, [address] [place] [address]. CMP with [id number] 12:46:00* Test Item Value Reference Range Comments Glucose (test code = GLUC) 103 mg/dl 70-100 For the purpose of classification, fasting Glucose from 100-125 mg/dl is considered impaired fasting Glucose (Pre-Diabetic) by the [place] Diabetes Association.Fasting Glucose > 125 mg/dl is [...] = ALT) 17 u/l 12-78 GFR if -[place] (test code = GFRAA) >90 mL/min/1.73 m2 >=90 GFR if not -[place] (test code = GFRNAA) >90 mL/min/1.73 m2 >=90 *NOTE: GFR is a calculated estimate of the glomerular filtration rate.* [id number] 11:37:00* Test Item Value Reference Range Comments Lipase (test code = LIP) 57 u/l 73-393 [id number] 11:26:00* Test Item Value Reference Range Comments [...] code = MPV) 9.1 fl 8.5-12.5 .Differential, [id number] 11:26:00* Test Item Value Reference Range Comments [...] (test code = ALYM) 1.1 k/ul 1.0-4.5 [place] Absolute (test code = AMONO) 0.4 k/ul 0.1-1.1 Eos Abs (test code = AEOS) 0.0 k/ul 0.0-0.4 Baso Absolute (test code = ABASO) 0.0 k/ul 0.0-0.1 XR CHEST 1 [id number] 11:02:41portableREASON FOR EXAM: CoughCOMPARISON: 09/11/2020ISCUSSION: There are stable postoperative changes involving the left lung. There are no new areas of airspace consolidation or pleural effusion. The cardiac silhouette is partially obscured. There are degenerative changes within the thoracic spine. Thereare no radiopaque foreign bodies.IMPRESSION: 1. Stable exam with no acute findings.[id number] 10:46:00* Test Item Value Reference Range Comments COVID19 (test code = AWSBD36R) Negative The [employer] SARS-CoV- 2 assay system is a nucleic acid amplification in vitro diagnostic test intended for the qualitative detection of RNA. Two conserved regions of the ORF1ab gene os SARS-CoV-2 are detected.The assay is approved by the FDA by the Emergency Use Authorization (EUA) process. Diagnosis of CoVID-19 should be made using both clinical and laboratory information. Vit D [id number] 04:37:00* Test Item Value Reference Range Comments Vitamin D 25 [place] (test code = VITD25) 21.0 ng/mL 30.0-80.0 Interpretative data for Vitamin D 25 [place]:Less than 20 ng/mL is considered deficientResult between 20-29 ng/mL is considered insufficientGreater than 80 ng/mL is considered toxicity Sedimentation [id number] 19:26:00* Test Item Value Reference Range Comments Sedimentation Rate (test code = SR) 6 mm/hr 0-25 Rheumatoid [id number] 19:13:00* Test Item Value Reference Range Comments Rheumatoid Factor (test code = RF) <10 IU/ml <=15 Culture if [id number] 11:28:00* Test Item Value Reference Range Comments Culture if indicated (test code = CULORD) NOT APPL If Culture Ordered? is Yes, culture results will be available on-line within 24-48 hours. [id number] 11:28:00* Test Item Value Reference Range Comments Color (test code = COLOR) YELLOW Yellow Appearance (test code = GIULIANO) CLEAR Clear Glucose (test code = UGLUC) NEGATIVE Negative Bilirubin (test code = BILE) NEGATIVE Negative Ketones (test code = UKET) NEGATIVE Negative Specific [place] (test code = SPGR) 1.010 <=1.0 30 [...] 5-10 /HPF <=5 MAMMO DIGITAL 3D SCREENING [id number] 10:08:03REASON FOR EXAM: Routine screening.DISCUSSION: Comparison is [...] recommended in 12 months as per the [place] [employer] and the Society of breast imaging screening guidelines. Layman's letter sent to the patient.CT CHEST WITH [id number] 08:30:51CT CHEST W/ CONTRASTDRAW FOR I STAT CREATININE UPON ARRIVAL, NO CONTRAST [id number] 2019 TO [facility]WEY/ULICES/SHAVONNE RNCT chest with [...] - LUNG LOBECTOMY Left 10/11/2017 Upper - VT TOTAL KNEE ARTHROPLASTY Right 05/28/2014 Procedure: REPLACEMENT TOTAL JOINT KNEE RIGHT / BETO ; Surgeon: Isaak Moncada MD; Location: [facility] OR;Service: Orthopedics - SPINE SURGERY lumbar fusion Not ValidatedFL FLUOROSCOPY [id number] 09:33:00This is a non-reportable study with no radiologist dictation. Please refer to PACS to view the images.BMP with [id number] 06:31:00* Test Item Value Reference Range Comments Glucose (test code = GLUC) 94 mg/dl 70-100 For the purpose of classification, fasting Glucose from 100-125 mg/dl is considered impaired fasting Glucose (Pre-Diabetic) by the [place] Diabetes Association.Fasting Glucose > 125 mg/dl is [...] = CA) 9.3 mg/dl 8.5-10.5 GFR if -[place] (test code = GFRAA) >90 mL/min/1.73 m2 >=90 GFR if not -[place] (test code = GFRNAA) 84 mL/min/1.73 m2 >=90 *NOTE: GFR is a calc ulated estimate of the glomerular filtration rate.* [id number] 06:04:00* Test Item Value Reference Range Comments [...] code = MPV) 9.7 fl 8.5-12.5 Blood [id number] 14:52:00atient: IBIS TAY /Age/ 1955 65 years Female [id number] Sex: #: Procedure: Culture Blood [O1 ^1 [...] 5ml Peds: _Interpretive Data^1: Culture Blood Per [facility] Health and Human Services regulations at 173-NAC (Communicable Diseases); mandated results are reportedto the [facility] of Health and Human Services, Division of Public Health, Office of Epidemiology, [address] [place] [address]. Performing Locations@1: This test was performed at:[facility], [address] [place] [address], [place], [address]-Qdbbe [id number] 22:00:00atient: IBIS TAY /Age/ 1955 65 years Female [id number] Sex: #: Procedure: Culture Blood [O1 ^1 [...] days.Preliminary Report []Verified Date/Time/Personnel: 10/16/2020 22:00 CDTNo growthat 1 day. Preliminary Report []Verified Date/Time/Personnel: 10/15/2020 23:01 CDTCulture received inlab, report to follow. Order CommentsO1: Culture Blood (BLOOD CULTURE) Collection Site: [facility] Aerobic: 5ml Anaerobic: 5ml Peds: _Interpretive Data^1: Culture Blood Per [facility] Health and Human Services regulations at 173-NAC (Communicable Diseases); mandated results are reported to [facility] of Health and Human Services, Division of Public Health, Office of Epidemiology, [address] [place] [address]. Performing Locations@1: This test was performed at: [facility], [address] [place] [address], [place], [address]-[id number] 21:44:00* Test Item Value Reference Range Comments PTT (test code = PTTAVE) 27.8 sec 22.8-33.9 Hep jesus alberto THERAPEUTIC RANGE = 50 - 80 sec [id number] 21:44:00* Test Item Value Reference Range Comments PT (test code = PTAVE) 11.2 sec 9.6-11.9 INR (test code = PTINR) 1.0 0.9-1.1 Warf jesus alberto THERAPEUTIC INR RANGE = 2.0 - 3.0 [id number] 21:39:00* Test Item Value Reference Range Comments [...] code = MPV) 10.0 fl 8.5-12.5 .Differential, [id number] 21:39:00* Test Item Value Reference Range Comments [...] (test code = ALYM) 2.2 k/ul 1.0-4.5 [place] Absolute (test code = AMONO) 0.3 k/ul 0.1-1.1 Eos Abs (test code = AEOS) 0.2 k/ul 0.0-0.4 Baso Absolute (test code = ABASO) 0.0 k/ul 0.0-0.1 CMP with [id number] 21:38:00* Test Item Value Reference Range Comments Glucose (test code = GLUC) 123 mg/dl 70-100 For the purpose of classification, fasting Glucose from 100-125 mg/dl is considered impaired fasting Glucose (Pre-Diabetic) by the [place] [employer].Fasting Glucose > 125 mg/dl is [...] = ALT) 15 u/l 12-78 GFR if -[place] (test code = GFRAA) 77 mL/min/1.73 m2 >=90 GFR if not -[place] (test code = GFRNAA) 66 mL/min/1.73 m2 >=90 *NOTE: GFR is a calc ulated estimate of the glomerular filtration rate.* CT ABDOMEN PELVIS WITH [id number] 17:34:19REASON FOR EXAM: Abdominal pain and vomiting [...] days, abdominal pain and diarrhea, generalized body [id number] isovue 3709 - [id number] 17:32:00* Test Item Value Reference Range Comments PTT (test code = PTTAVE) 27.4 sec 22.8-33.9 Hep jesus alberto THERAPEUTIC RANGE = 50 - 80 sec [id number] 17:32:00* Test Item Value Reference Range Comments PT (test code = PTAVE) 11.6 sec 9.6-11.9 INR (test code = PTINR) 1.1 0.9-1.1 Warf jesus alberto THERAPEUTIC INR RANGE = 2.0 - 3.0 LA [id number] 17:15:00* Test Item Value Reference Range Comments Lactic Acid (test code = LA) 1.4 mmol/L 0.4-2.0 [id number] 17:08:00* Test Item Value Reference Range Comments Lipase (test code = LIP) 110 u/l 73-393 CMP with [id number] 16:52:00* Test Item Value Reference Range Comments Glucose (test code = GLUC) 105 mg/dl 70-100 For the purpose of classification, fasting Glucose from 100-125 mg/dl is considered impaired fasting Glucose (Pre-Diabetic) by the [place] [employer].Fasting Glucose > 125 mg/dl is [...] = ALT) 18 u/l 12-78 GFR if -[place] (test code = GFRAA) 77 mL/min/1.73 m2 >=90 GFR if not -[place] (test code = GFRNAA) 67 mL/min/1.73 m2 >=90 *NOTE: GFR is a calc ulated estimate of the glomerular filtration rate.* [id number] 16:41:00* Test Item Value Reference Range Comments [...] code = MPV) 9.3 fl 8.5-12.5 .Differential, [id number] 16:41:00* Test Item Value Reference Range Comments [...] (test code = ALYM) 1.8 k/ul 1.0-4.5 [place] Absolute (test code = AMONO) 0.4 k/ul [...] target low density lipoprotein plus 30. COVFLURSV [id number] 12:43:00* Test Item Value Reference Range Comments [...] made using both clinical and laboratory information.Per [facility] Health and Human Services regulations at 173-NAC (Communicable Diseases); mandated results are reported to the [facility] of Health and Human Services, Division of Public Health, Office of Epidemiology, [address] [place] [address].Test performed at [facility], [address] [place] [address]. COVID19 (test code = NDQAB88E) NEGATIVE Negative XR CHEST 1 [id number] 10:43:34EXAM: Chest AP upright portable 09/11/2020 at [...] very tiredXR FEMUR 2 OR MORE VIEWS [id number] 19:31:05 REASON FOR EXAM: Left femur pain and swelling.DISCUSSION:AP and lateral views left femur. No comparison. Left total hip arthroplasty device. No periprosthetic fracture or loosening. Left total knee arthroplasty device. Hardware components appear normally aligned. No fracture.IMPRESSION: No acute osseous abnormality in the left femur.Fall today at [facility] WRIST MINIMUM 3 VIEWS [id number] 19:20:14REASON FOR EXAM: Trauma. Wrist pain.DISCUSSION:AP, oblique, lateral view left wrist. No comparison.No fracture or dislocation. Diffuse osteopenia. Radiocarpal joint spaces are normal. Moderate to severe joint space narrowing and spurring of the first carpometacarpal joint.IMPRESSION: 1. No acute osseous abnormality in the left wrist.2. 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 Left ankle pain.DISCUSSION:AP, oblique, and lateral views left ankle. No comparison. No fracture or dislocation. Ankle mortise is symmetric. Talar dome is intact. No significant soft tissue swelling or joint effusion seen. IMPRESSION: No acute osseous abnormality of the ankle.[facility] trippeed over a wireCT CHEST WITH [id number] 11:06:10Ca rice appt to follow\X0A\CT CHEST WITH CONTRAST\X0A\\X0A\INDICATION: \X0A\Non-small [...] cancer-f/u \X0A\75ml isovue 370\X0A\\X0A\Ca center appt to [id number]\X0A\Not ValidatediStat [id number] 10:52:00* Test Item Value Reference Range Comments Creat POCT (test code = CREATRLS) 0.7 mg/dl 0.6-1.3 Spec Type POCT (test code = SPECRLS) Venous GFR [id number] 10:52:00* Test Item Value Reference Range Comments GFR if -[place] (test code = GFRAA) >90 mL/min/1.73 m2 >=90 GFR if not -[place] (test code = GFRNAA) 90 mL/min/1.73 m2 >=90 *NOTE: GFR is a calc ulated estimate of the glomerular filtration rate.* Blood [id number] 13:45:00atient: IBIS TAY /Age/ 1955 64 years Female [id number]:#:Procedure: Culture Blood [O1\S\1 @1] Blood Body Site:Collected [...] forearmAerobic: 5ccAnaerobic: 5ccPeds: _Interpretive Data\S\1: Culture BloodPer [facility] and Human Services regulations at [facility] (CommunicableDiseases); mandated results are reported to the [facility] of Health and HumanServices, Division of Public Health, Office of Epidemiology, [address] [place] [address].Performing Locations@1: This test was performed at:[facility], [address] [place] [address], [address]-Dyuep [id number] 13:45:00atient: IBIS TAY /Age/ 1955 64 years Female [id number]:#:Procedure: Culture Blood [O1\S\1 @1] Blood Body Site:Collected [...] forearmAerobic: 5ccAnaerobic: 5ccPeds: _Interpretive Data\S\1: Culture BloodPer [facility] and Human Services regulations at 173NAC (CommunicableDiseases); mandated results are reported to the [facility] and [facility], Division of Public Health, Office of Epidemiology, [address] [place] [address].Performing Locations@1: This test was performed at:[facility], [address] [place] [address], [place], [address]- [id number] 10:38:00* Test Item Value Reference Range Comments COVID19 (test code = NGSUI84O) Not Detected Not Detected The [employer] SARS-CoV- 2 assay is a real-time RT-PCR [...] made using both clinical and laboratory information.Per [facility] and Human [facility] regulations at 173-NAC (Communicable Diseases); mandated results are reported to the [facility] and Human Services, Division of Public Health, Office of Epidemiology, [address] [place] [address]. CMP with [id number] 13:28:00* Test Item Value Reference Range Comments Glucose (test code = GLUC) 99 mg/dl 70-100 For the purpose of classification, fasting Glucose from 100-125 mg/dl is considered impaired fasting Glucose (Pre-Diabetic) by the [place] [employer].Fasting Glucose > 125 mg/dl is [...] = ALT) 15 u/l 12-78 GFR if -[place] (test code = GFRAA) >90 mL/min/1.73 m2 >=90 GFR if not -[place] (test code = GFRNAA) 88 mL/min/1.73 m2 >=90 *NOTE: GFR is a calculated estimate of the glomerular filtration rate.* LA [id number] 13:27:00* Test Item Value Reference Range Comments Lactic Acid (test code = LA) 1.1 mmol/L 0.4-2.0 [id number] 13:22:00* Test Item Value Reference Range Comments PT (test code = PTAVE) 11.4 sec 9.6-11.9 INR (test code = PTINR) 1.1 0.9-1.1 Warf jesus alberto THERAPEUTIC INR RANGE = 2.0 - 3.0 [id number] 13:22:00* Test Item Value Reference Range Comments PTT (test code = PTTAVE) 28.6 sec 22.8-33.9 Hep jesus alberto THERAPEUTIC RANGE = 50 - 80 sec [id number] 13:07:00* Test Item Value Reference Range Comments [...] code = MPV) 9.5 fl 8.5-12.5 .Differential, [id number] 13:07:00* Test Item Value Reference Range Comments [...] (test code = ALYM) 1.6 k/ul 1.0-4.5 [place] Absolute (test code = AMONO) 0.2 k/ul 0.1-1.1 Eos Abs (test code = AEOS) 0.1 k/ul 0.0-0.4 Baso Absolute (test code = ABASO) 0.0 k/ul 0.0-0.1 XR CHEST 1 [id number] 12:57:20\X0A\REASON FOR EXAM: Cough\X0A\\X0A\DISCUSSION:\X0A\AP upright view the chest demonstrates cardiome gavin. There is elevation left hemidiaphragm. A tortuous aorta is seen. The right lung field is clear. There is better ventilation of the lung butterfield from the old exam.\X0A\\X0A\IMPRESSION\X0A\: \X0A\\X0A\1. Cardiomegaly.\X0A\2. Elevation left hemidiaphragm.\X0A\3. Tortuous aorta.\X0A\4. Right lung field clear with better ventilation of the lung butterfield from prior study.\X0A\CT CHEST WITH [id number] 10:33:27\X0A\CT CHEST WITH CONTRAST\X0A\\X0A\INDICATION:\X0A\Non-small cell lung cancer.\X0A\\X0A\TECHNIQUE:\X0A\Contrast [...] POCT (test code = SPECRLS) Venous GFR [id number] 09:31:00* Test Item Value Reference Range Comments GFR if -[place] (test code = GFRAA) 89 mL/min/1.73 m2 >=90 GFR if not -[place] (test code = GFRNAA) 77 mL/min/1.73 m2 >=90 *NOTE: GFR is a calc ulated estimate of the glomerular filtration rate.* FL FLUOROSCOPY [id number] 11:16:20\X0A\This is a non-reportable study with no radiologist dictation. Please refer to PACS to view theimages.CT CHEST WITH [id number] 08:53:41[facility]-medicare, [employer]. Health care planCt chest with contrastNeed ISTAT [...] isovue 370 given\X0A\Call report to cancer center [phone], appt at 10:00 Blood [id number] 18:00:00atient: TAY, IBIS Jose Angel /Age/ 1955 64 years Female [id number]:#:Procedure: Culture Blood [O1\S\1 @1] Blood Body Site:Collected Date/Time: 08/09/2019 15:00 FUR COMBER Received Date/Time: 08/09/2019 17:47 CSTStart Date/Time: 08/09/2019 17:47 FUR COMBER Free Text Source:FINAL REPORTSFinal Report []Verified Date/Time/Personnel: 08/15/2019 18:00CSTNo growth at 5 days.PRELIMINARY REPORTSPreliminary Report []Verified Date/Time/Personnel: 08/11/2019 18:00 CSTNo growth at 48 HoursPreliminary Report []Verified Date/Time/Personnel: 08/10/201918:01 CSTNo growth at 24 HoursOrder CommentsO1: Culture Blood (BLOOD CULTURE)Collection Site: [facility]ACAt[facility] hospitalc: [address] [place] [address]: 10ccPeds: _Interpretive Data\S\1: Culture BloodPer [facility] and [facility] regulations [facility] (CommunicableDiseases); mandated results are reported to the [facility] and [facility], Division of Public Health, Office of Epidemiology, [address] [place] [address].Performing Locations@1: This test was performed at:[facility], [address] [place] [address], [address]-Qzjmd Behujmq0523-06-75 18:00:00atient: IBIS TAY /Age/ 1955 64 years Female [id number]: #:Procedure: Culture Blood [O1\S\1 @1] Blood Body Site:Collected Date/Time: 08/09/2019 14:38 FUR COMBER Received Date/Time: 08/09/2019 17:45 CSTStart Date/Time: 08/09/2019 17:45CST Free Text Source:FINAL REPORTSFinal Report []Verified Date/Time/Personnel: 08/15/2019 18:00 CSTNo growth at 5 days.PRELIMINARY REPORTSPreliminary Report []Verified Date/Time/Personnel:08/11/2019 18:00 CSTNo growth at 48 HoursPreliminary Report []Verified Date/Time/Personnel: 08/10/2019 18:01 CSTNo growth at 24 HoursOrder CommentsO1: Culture Blood (BLOOD CULTURE)Collection Site: Right ACAerobic: 10ccAnaerobic: 10ccPeds: _Interpretive Data\S\1: Culture BloodPer [facility] and Human [facility] regulations at 173-[facility] (CommunicableDiseases); mandated results are reported to the [place] Department of Health and HumanServices, Division of Public Health, Office of Epidemiology, [address] [place] [address].Performing Locations@1: This test was performed at:[facility], [address] [place] [address], [place], [address]-Widioaa if [id number] 16:24:00* Test Item Value Reference Range Comments Culture if indicated (test code = CULORD) NOT APPL If Culture Ordered? is Yes, culture results will be available on-line within 24-48 hours. .[id number] 16:24:00* Test Item Value Reference Range Comments Color (test code = COLOR) YELLOW Yellow Appearance (test code = GIULIANO) CLEAR Clear Glucose (test code = UGLUC) NEGATIVE Negative Bilirubin (test code = BILE) NEGATIVE Negative Ketones (test code = UKET) NEGATIVE Negative Specific [place] (test code = SPGR) 1.010 <=1.0 30 Blood (test code = UBLD) NEGATIVE Negative pH (test code = UPH) 7.5 4.5-8.0 Protein (test code = UPROT) NEGATIVE Negative Urobilinogen (test code = URO) 0.2 EU/dl 0.2-1.0 Nitrite (test code = NIT) NEGATIVE Negative Leukocyte Esterase (test code = LEST) TRACE Neg ative .Urinalysis [id number] 16:24:00* Test Item Value Reference Range Comments RBC (test code = URBC) ABSENT <=5 WBC (test code = UWBC) ABSENT <=5 [id number]-[id number] 16:15:00* Test Item Value Reference Range Comments Troponin-I (test code = TROP) <0.04 ng/mL <=0.04 LA [id number] 15:37:00* Test Item Value Reference Range Comments Lactic Acid (test code = LA) 1.5 mmol/L 0.4-2.0 CMP with [id number] 15:35:00* Test Item Value Reference Range Comments Glucose (test code = GLUC) 156 mg/dl 70-100 For the purpose of classification, fasting Glucose from 100-125 mg/dl is considered impaired fasting Glucose (Pre-Diabetic) by the [place] [employer].Fasting Glucose > 125 mg/dl is [...] = ALT) 22 u/l 12-78 GFR if -[place] (test code = GFRAA) >90 mL/min/1.73 m2 >=90 GFR if not -[place] (test code = GFRNAA) 84 mL/min/1.73 m2 >=90 *NOTE: GFR is a calculated estimate of the glomerular filtration rate.* [id number] 15:29:00* Test Item Value Reference Range Comments PT (test code = PTAVE) 10.7 sec 9.6-11.9 INR (test code = PTINR) 1.0 0.9-1.1 Warf jesus alberto THERAPEUTIC INR RANGE = 2.0 - 3.0 [id number] 15:29:00* Test Item Value Reference Range Comments PTT (test code = PTTAVE) 27.8 sec 22.8-33.9 PTT therapeutic range is 50-80 seconds, when PTT is used as a monitor for unfractionated heparin therapy. .Differential, [id number] 15:10:00* Test Item Value Reference Range Comments [...] (test code = ALYM) 0.6 k/ul 1.0-4.5 [place] Absolute (test code = AMONO) 0.0 k/ul 0.1-1.1 Eos Abs (test code = AEOS) 0.0 k/ul 0.0-0.4 [id number] 15:10:00* Test Item Value Reference Range Comments [...] MPV) 10.2 fl 8.5-12.5 XR CHEST 2 [id number] 14:44:17\X0A\2 view chest radiograph\X0A\\X0A\REASON FOR EXAM: Cough\X0A\\X0A\Comparison: [...] acute cardiopulmonary abnormality.\X0A\coughXR ANKLE MINIMUM 3 VIEWS [id number] 17:14:21 \X0A\INDICATION: Fall, left ankle and foot [...] edited the findings.\X0A\XR FOOT MINIMUM 3 VIEWS [id number] 17:14:21 \X0A\INDICATION: Fall, left ankle and foot [...] interpretation and have edited the findings.\X0A\.Influ B [id number] 15:41:00* Test Item Value Reference Range Comments Influenza B Antigen (test code = INFBAG) neg Negative .Influ A [id number] 15:41:00* Test Item Value Reference Range Comments Influenza A Antigen (test code = INFAG) NEGATIVE N egative CMP with [id number] 14:25:00* Test Item Value Reference Range Comments Glucose (test code = GLUC) 83 mg/dl 70-100 For the purpose of classification, fasting Glucose from 100-125 mg/dl is considered impaired fasting Glucose (Pre-Diabetic) by the [place] [employer].Fasting Glucose > 125 mg/dl is [...] = ALT) 15 u/l 12-78 GFR if -[place] (test code = GFRAA) >90 mL/min/1.73 m2 >=90 GFR if not -[place] (test code = GFRNAA) >90 mL/min/1.73 m2 >=90 *NOTE: GFR is a calculated estimate of the glomerular filtration rate.* Nclqoiee-[id number] 14:25:00* Test Item Value Reference Range Comments Troponin-I (test code = TROP) <0.04 ng/mL <=0.04 XR CHEST 1 [id number] 14:19:12\X0A\Portable chest radiograph\X0A\\X0A\REASON FOR EXAM: Chest pain\X0A\\X0A\Comparison: [...] focal consolidation.\X0A\nausea, chest pain started last night, [id number] 14:05:00* Test Item Value Reference Range Comments [...] code = MPV) 9.8 fl 8.5-12.5 .Differential, [id number] 14:05:00* Test Item Value Reference Range Comments [...] (test code = ALYM) 1.9 k/ul 1.0-4.5 [place] Absolute (test code = AMONO) 0.4 k/ul 0.1-1.1 Eos Abs (test code = AEOS) 0.2 k/ul 0.0-0.4 Baso Absolute (test code = ABASO) 0.0 k/ul 0.0-0.1 FL FLUOROSCOPY [id number] 09:17:34Cervical spine injection in ASC \X0A\This is a non-reportable study with no radiologist dictation. Please refer to PACS to view theimages.FL FLUOROSCOPY [id number] 11:46:57\X0A\This is a non-reportable study with no radiologist dictation. Please refer to PACS to view theimages.XR LUMBAR SPINE FLEXION AND EXTENSION VIEW [id number] 14:53:13Xray of Lumbar SpineFLEX/EXT\X0A\EXAMINATION:Lumbar spine, 4 views [...] L5 on S1.\X0A\6. Spurring all lumbar levels\X0A\Urine [id number] 07:27:00 atient: IBIS TAY Jose Angel /Age/ 1955 63 years Female [id number]:#:UrinalysisCollected Date 02/17/2019Collected Time 19:50 CDTProcedure Units ReferenceRangeAppearanceSl. Cloudy [Clear][* @1]Bacteria >300 [* @1] [<=10]Bilirubin Negative [Negative][@1]Blood Negative [Negative][@1]Color Yellow [@1] [Yellow]Glucose Negative [Negative][@1]Ketones Negative [Negative][@1]Leukocyte Small [Negative]Esterase [* @1]Nitrite Positive [Negative][* @1]pH 5.5 [@1] [4.5-8.0]Protein Negative [Negative][@1]RBC Absent [@1]/HPF [<=5]Specific [place] >=1.030 [<=1.030][* @1]Squamous 2-5 [@1] /HPF [<=5]EpithelialUrobilinogen 0.2 [@1] EU/dl [0.2-1.0]WBC 20-50 [* /HPF [<=5]R1 @1]Culture if Yes [\S\1 @1]indicatedResult CommentsR1: WBCSuboptimal volume submitted for testing, microscopic exam performed on 8 ml's.Interpretive Data\S\1: Culture if indicatedIf Culture Ordered? is Yes, culture results will be available on-line within 24-48 hours.Procedure: Culture Urine [\S\2 @2] Urine Body Site:Collected Date/Time: 02/17/2019 19: 50 CDT Received Date/Time: 02/18/2019 09:15 CDTStart Date/Time: 02/17/2019 20:20 CDT Free Text Source:FINAL REPORTSFinal Report []Verified Date/Time/Personnel: 02/19/2019 07:27 CDT>100,000 cfu/ml Escherichia coliPRELIMINARY REPORTSPreliminary Report []Verified Date/Time/Personnel: 02/18/201917:27 CDT>100,000 cfu/ml Escherichia coliSusceptibility to follow.SUSCEPTIBILITY RESULTSEscherichia coliAntibiotic MDIL MINTAmpicillin >=32 ResistantAmpicillin/Sulbactam >=32/16 ResistantCefazolin (Urine) 16 SusceptibleCeftriaxone <=1 SusceptibleCiprofloxacin <=0.25 Susceptibl eGentamicin <=1 SusceptibleLevofloxacin <=0.12 SusceptibleNitrofurantoin 32 SusceptiblePiperacillin/Tazobactam <=4 SusceptibleTrimethoprim/Sulfa <=1/19 SusceptibleInterpretive Data\S\2: Culture UrinePer [facility] of Health and Human Services regulations at 173-[facility] (CommunicableDiseases); mandated results are reported to the [place] Department of Health and HumanServices, [facility] of Public Health, Office of Epidemiology, [address] [place] [address].Performing Locations@1: This test was performed at:[facility], [address] [place] [address], [address]-@2: This test was performed at:[facility], [facility] [place], [address]-.Urinalysis [id number] 20:15:00* Test Item Value Reference Range Comments RBC (test code = URBC) ABSENT <=5 WBC (test code = UWBC) 20-50 <=5 Subop timal volume submitted for testing, microscopic exam performed on 8 ml's. Bacteria (test code = BACT) >300 <=10 Squamous Epithelial (test co de = USQEPI) 2-5 <=5 .[id number] 20:15:00* Test Item Value Reference Range Comments Color (test code = COLOR) YELLOW Yellow Appearance (test code = GIULIANO) SL CLOUDY Clear Glucose (test code = UGLUC) NEGATIVE Negative Bilirubin (test code = BILE) NEGATIVE Negative Ketones (test code = UKET) NEGATIVE Negative Specific [place] (test code = SPGR) >=1.030 <=1.0 30 Blood (test code = UBLD) NEGATIVE Negative pH (test code = UPH) 5.5 4.5-8.0 Protein (test code = UPROT) NEGATIVE Negative Urobilinogen (test code = URO) 0.2 EU/dl 0.2-1.0 Nitrite (test code = NIT) POSITIVE Negative Leukocyte Esterase (test code = LEST) SMALL Neg ative Culture if [id number] 20:15:00* Test Item Value Reference Range Comments Culture if indicated (test c ode = CULORD) Yes If Culture Ordered? is Yes, culture results will be available on-line within 24-48 hours. FL FLUOROSCOPY [id number] 12:27:31\X0A\This is a non-reportable study with no radiologist dictation. Please refer to PACS to view theimages.CT CHEST WITH [id number] 12:10:08\X0A\CT CHEST WITH CONTRAST\X0A\\X0A\INDICATION:\X0A\Non-small cell lung cancer.\X0A\\X0A\TECHNIQUE:\X0A\Contrast [...] \X0A\\X0A\75 cc of isovue 370 givenBMP with [id number] 08:57:00* Test Item Value Reference Range Comments Glucose (test code = GLUC) 93 mg/dl 70-100 For the purpose of classification, fasting Glucose from 100-125 mg/dl is considered impaired fasting Glucose (Pre-Diabetic) by the [place] [employer].Fasting Glucose > 125 mg/dl is [...] = CA) 8.6 mg/dl 8.5-10.5 GFR if -[place] (test code = GFRAA) >90 mL/min/1.73 m2 >=90 GFR if not -[place] (test code = GFRNAA) 81 mL/min/1.73 m2 >=90 *NOTE: GFR is a calc ulated estimate of the glomerular filtration rate.* [id number] 08:36:00* Test Item Value Reference Range Comments [...] code = MPV) 11.3 fl 8.5-12.5 .Differential, [id number] 08:36:00* Test Item Value Reference Range Comments [...] (test code = ALYM) 2.2 k/ul 1.0-4.5 [place] Absolute (test code = AMONO) 0.4 k/ul 0.1-1.1 Eos Abs (test code = AEOS) 0.2 k/ul 0.0-0.4 Baso Absolute (test code = ABASO) 0.0 k/ul 0.0-0.1 GFR [id number] 08:35:00* Test Item Value Reference Range Comments GFR if -[place] (test code = GFRAA) >90 mL/min/1.73 m2 >=90 GFR if not -[place] (test code = GFRNAA) >90 mL/min/1.73 m2 >=90 *NOTE: GFR is a calc ulated estimate of the glomerular filtration rate.* iStat [id number] 08:35:00* Test Item Value Reference Range Comments Creat POCT (test code = CREATRLS) 0.6 mg/dl 0.6-1.3 Spec Type POCT (test code = SPECRLS) Venous XR KNEE 3 VIEWS [id number] 14:11:56\X0A\EXAMINATION:Right knee, 4 views\X0A\\X0A\INDICATION:Encounter for general adult [...] knee arthroplastyFL MOBILE FLUOROSCOPY LESS THAN 1 [id number] 13:11:47\X0A\This is a non-reportable study with no radiologist dictation. Please refer to PACS to view theimages.CMP with [id number] 09:33:00* Test Item Value Reference Range Comments Glucose (test code = GLUC) 94 mg/dl 70-100 For the purpose of classification, fasting Glucose from 100-125 mg/dl is considered impaired fasting Glucose (Pre-Diabetic) by the [place] [employer].Fasting Glucose > 125 mg/dl is [...] = ALT) 13 u/l 12-78 GFR if -[place] (test code = GFRAA) 81 mL/min/1.73 m2 >=90 GFR if not -[place] (test code = GFRNAA) 70 mL/min/1.73 m2 >=90 *NOTE: GFR is a calc ulated estimate of the glomerular filtration rate.* CT CHEST WITH [id number] 09:14:36Labs ct chest w No contrast allergyTo [...] code = MPV) 9.0 fl 8.5-12.5 .Differential, [id number] 09:14:00* Test Item Value Reference Range Comments [...] (test code = ALYM) 1.7 k/ul 1.0-4.5 [place] Absolute (test code = AMONO) 0.5 k/ul 0.1-1.1 Eos Abs (test code = AEOS) 0.1 k/ul 0.0-0.4 Baso Absolute (test code = ABASO) 0.0 k/ul 0.0-0.1 GFR [id number] 08:47:00* Test Item Value Reference Range Comments GFR if -[place] (test code = GFRAA) >90 mL/min/1.73 m2 >=90 GFR if not -[place] (test code = GFRNAA) >90 mL/min/1.73 m2 >=90 *NOTE: GFR is a calc ulated estimate of the glomerular filtration rate.* iStat [id number] 08:47:00* Test Item Value Reference Range Comments Creat POCT (test code = CREATRLS) 0.7 mg/dl 0.6-1.3 Spec Type POCT (test code = SPECRLS) Venous FL FLUOROSCOPY [id number] 19:44:38\X0A\This is a non-reportable study with no radiologist dictation. Please refer to PACS to view theimages.MAMMO DIGITAL 3D DIAGNOSTIC UNILATERAL [id number] 08:25:57\X0A\REASON FOR EXAM: Asymmetry in the upper [...] screening mammography.\X0A\\X0A\ASSESSMENT: BI-RADS 2-benign\X0A\MRI THORACIC SPINE WITHOUT [id number] 10:47:36\X0A\REASON FOR EXAM: Compression fracture of body [...] ca lung/ro com[ fxMAMMO DIGITAL 3D SCREENING [id number] 09:37:34\X0A\INDICATION:\X0A\Routine screening.\X0A\\X0A\COMPARISON:\X0A\Prior studies including 01/17/2017.\X 0A\\X0A\EXAM:\X0A\BILATERAL DIGITAL [...] recommendation were communicated to the patient in writing.[id number] 16:31:00* Test Item Value Reference Range Comments Hgb A1c (test code = A1C) 6.0 % 4.5-5.6 Th e [place] Diabetes Association clinical practice recommendation has recently [...] 6.4 to 8.0 High Risk CMP with [id number] 15:53:00* Test Item Value Reference Range Comments Glucose (test code = GLUC) 76 mg/dl 70-100 For the purpose of classification, fasting Glucose from 100-125 mg/dl is considered impaired fasting Glucose (Pre-Diabetic) by the [place] Diabetes [employer].Fasting Glucose > 125 mg/dl is [...] = ALT) 10 u/l 12-78 GFR if -[place] (test code = GFRAA) >90 mL/min/1.73 m2 >=90 GFR if not -[place] (test code = GFRNAA) >90 mL/min/1.73 m2 >=90 *NOTE: GFR is a calculated estimate of the glomerular filtration rate.* CMP with [id number] 10:24:00* Test Item Value Reference Range Comments Glucose (test code = GLUC) 103 mg/dl 70-100 For the purpose of classification, fasting Glucose from 100-125 mg/dl is considered impaired fasting Glucose (Pre-Diabetic) by the [place] [employer].Fasting Glucose > 125 mg/dl is [...] = ALT) 12 u/l 12-78 GFR if -[place] (test code = GFRAA) >90 mL/min/1.73 m2 >=90 GFR if not -[place] (test code = GFRNAA) 87 mL/min/1.73 m2 >=90 *NOTE: GFR is a calculated estimate of the glomerular filtration rate.* CT CHEST WITH [id number] 10:13:57TO Dr Oslon/Nyla/Charli RN\X0A\EXAM: CT scan of the chest 05/01/2018.\X0A\\X0A\REASON [...] non-small cell lung cancer, unspecified laterality \X0A\\X0A\75ccIsovue [id number] 10:01:00* Test Item Value Reference Range Comments [...] code = MPV) 9.5 fl 8.5-12.5 .Differential, [id number] 10:01:00* Test Item Value Reference Range Comments [...] (test code = ALYM) 1.8 k/ul 1.0-4.5 [place] Absolute (test code = AMONO) 0.3 k/ul 0.1-1.1 Eos Abs (test code = AEOS) 0.2 k/ul 0.0-0.4 Baso Absolute (test code = ABASO) 0.0 k/ul 0.0-0.1 FL MOBILE FLUOROSCOPY MORE THAN 1 [id number] 11:03:06\X0A\This is a non- reportable study with no radiologist dictation. Please refer to PACS to view the images.Lipid [id number] 18:55:00* Test Item Value Reference Range Comments [...] 6.4 to 8.0 High Risk CMP with [id number] 18:55:00* Test Item Value Reference Range Comments Glucose (test code = GLUC) 70 mg/dl 70-100 For the purpose of classification, fasting Glucose from 100-125 mg/dl is considered impaired fasting Glucose (Pre-Diabetic) by the [place] Diabetes Association.Fasting Glucose > 125 mg/dl is indicative of Diabetes Mellitus, but must be confirmed. BUN (test code = BUN) 6 mg/dl 6-24 Creatinine (test code = CREAT) 0.72 mg/dl 0.50-1.10 The new Creatinine teresa baron is IDMS-traceable. Reference ranges and GFR [...] = ALT) 19 u/l 12-78 GFR if -[place] (test code = GFRAA) >90 mL/min/1.73 m2 >=90 GFR if not -[place] (test code = GFRNAA) 87 mL/min/1.73 m2 >=90 *NOTE: GFR is a calculated estimate of the glomerular filtration rate.* [id number] 18:46:00* Test Item Value Reference Range Comments [...] code = MPV) 10.0 fl 8.5-12.5 .Differential, [id number] 18:46:00* Test Item Value Reference Range Comments [...] (test code = ALYM) 1.8 k/ul 1.0-4.5 [place] Absolute (test code = AMONO) 0.4 k/ul 0.1-1.1 Eos Abs (test code = AEOS) 0.1 k/ul 0.0-0.4 Baso Absolute (test code = ABASO) 0.0 k/ul 0.0-0.1 [id number] 10:37:00* Test Item Value Reference Range Comments PTT (test code = PTTAVE) 29.0 sec 22.8-33.9 Hep jesus alberto THERAPEUTIC RANGE = 50 - 80 sec [id number] 10:37:00* Test Item Value Reference Range Comments PT (test code = PTAVE) 10.7 sec 9.6-11.9 INR (test code = PTINR) 1.0 0.9-1.1 Warf jesus alberto THERAPEUTIC INR RANGE = 2.0 - 3.0 BMP with [id number] 23:39:00* Test Item Value Reference Range Comments Glucose (test code = GLUC) 99 mg/dl 70-100 For the purpose of classification, fasting Glucose from 100-125 mg/dl is considered impaired fasting Glucose (Pre-Diabetic) by the [place] Diabetes Association.Fasting Glucose > 125 mg/dl is [...] = [place]) 9.7 mg/dl 8.5-10.5 GFR if -[place] (test code = GFRAA) >90 mL/min/1.73 m2 >=90 GFR if not -[place] (test code = GFRNAA) 82 mL/min/1.73 m2 >=90 *NOTE: GFR is a calc ulated estimate of the glomerular filtration rate.* [id number] 23:24:00* Test Item Value Reference Range Comments [...] = NRBCI) 0 /100 WBC <=0 .Differential, [id number] 23:24:00* Test Item Value Reference Range Comments [...] (test code = ALYM) 2.2 k/ul 1.0-4.5 [place] Absolute (test code = AMONO) 0.4 k/ul 0.1-1.1 Eos Abs (test code = AEOS) 0.2 k/ul 0.0-0.4 Baso Absolute (test code = ABASO) 0.0 k/ul 0.0-0.1 FL FLUOROSCOPY [id number] 08:09:07Cervical Epidural Steroid Injection with Fluoroscopy\X0A\This is [...] MCP joint. Fall.XR WRIST MINIMUM 3 VIEWS [id number] 20:31:50 \X0A\REASON FOR EXAM: Pain, swelling\X0A\\X0A\DISCUSSION:\X0A\The distal radius and ulna are intact. The carpal and a portion of the metacarpal bones as visualized demonstrate no evidence of fractureor dislocation. 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 Fall.Urine Culture 2017-11-02 23:53:00IBIS TAY [id number]: Bacterial Culture UrineSOURCE: Urine COLLECTED: 11/01/2017 09:50CDTBODY SITE:FREE TEXT SOURCE: STARTED: 11/01/2017 13:28CDTACCESSION: [id number] FINAL REPORT Final ReportVerified:11/02/2017 23:53 CDT>100,000 cfu/ml Escherichia coliwith 10,000 cfu/mlMixed Gram Positive species present, compatible withcontamination, faulty collection or transportation.. No susceptibilitiesperformed. SUSCEPTIBILITY RESULTS EscherichiacoliMDIL MINTAmpicillin <=2 SCefazolin (Urine) <=4 SCeftriaxone <=1 SCiprofloxacin <=0.25 SGentamicin <=1 SLevofloxacin <=0.12 SNitrofurantoin <=16 STrimethoprim/Sulfa <=1/19 SS=Susceptible, I=Intermediate, R=Resistant, N/A=Not Oycawjugmf36/18/2018 14:20 CDT Bacterial Culture Urine:Test performed at [facility] , [address] [place] [address] Culture Urine Interpretive ResultsPer [facility] and Human Services regulations [id number] (Communicable Diseases); mandated results are reported to [facility] of Health and Human Services, Division of PublicHealth, Office of Epidemiology, [address] [place] [address]. .Urinalysis 2017-11-01 11:43:00* Test Item Value Reference Range Comments Color (test code = COLOR) PAMELA Yellow Appearance (test code = GIULIANO) CLOUDY Clear Glucose (test code = UGLUC) NEGATIVE Negative Bilirubin (test code = BILE) SMALL Negative No confirmatory reagent available. Urine bilirubin result may be erroneous. Ketones (test code = UKET) NEGATIVE Negative Specific [place] (test code = SPGR) 1.038 <=1.030 Blood (test code = UBLD) NEGATIVE Negative pH (test code = UPH) 5.0 4.5-8.0 Protein (test code = UPROT) NEGATIVE Negative Urobilinogen (test code = URO) 1.0 EU/dl 0.2-1.0 Nitrite (test code = NIT) POSITIVE Negative Leukocyte Esterase (test cod e = LEST) MODERATE Negative .Urinalysis [id number] 11:43:00* Test Item Value Reference Range Comments RBC (test code = URBC) 2-5 <=5 WBC (test code = UWBC) >100 <=5 Bacteria (test code = BACT) >300 <=10 Hyaline Cast (test code = HYAL) 2-5 <=2 Squamous Epithelial (test code = USQEPI) 10-20 <=5 Culture if [id number] 11:43:00* Test Item Value Reference Range Comments Culture if indicated (test c ode = CULORD) Yes If Culture Ordered? is Yes, culture results will be available on-line within 24-48 hours. Corrected [id number] 16:15:00IBIS TAY [id number] Report InfoThis report is amended to correct [...] consensuscriteria. The staging information has been changed ehrwjO9y to pT1b.Changes called to Dr. Maxwell [place], [...] NODE, EXCISION:ONE BENIGN LYMPH NODE (0/1).IBIS TAY [id number]. STATION 7 LYMPH NODE, EXCISION:ONE BENIGN LYMPH [...] pN0: NO RE GIONAL LYMPHNODE METASTASIS.Sujata/IBIS Delgado [id number] Crain M.D., Resident PathologistCommentThe pathologic examination demonstrates [...] and entirely submitted incassette B1.IBIS TAY D [id number]/kmtPnorth [place] C is additionally labeled left upper lobectomy.The [...] labeled station 7. ThespecimenNIBIS HOOK Jose Angel [id number] of a moderately firm garcia-white lymph nodemeasuring [...] aComplete report available in LaboratoryXR CHEST 1 [id number] 07:36:25\X0A\INDICATION: Pneumothorax.\X0A\\X0A\COMPARISON: 2:30 08/06/2017.\X0A\\X0A\TECHNIQUE: Single upright AP [...] on 10/18/2017.\X0A\\X0A\I, Dr Lagunas, have personally reviewed the images and the resident's interpretation and agree with the findings above.XR CHEST 1 [id number] 07:54:10\X0A\INDICATION: Pneumothorax.\X0A\\X0A\COMPARISON: 10/14/2017.\X0A\\X0A\TECHNIQUE: Single upright AP view [...] with the interpretation.\X0A\Post op\X0A\RM 593Surg Path Final [id number] 14:52:00IBIS TAY [id number]. #8 LYMPH NODE, EXCISION:ONE BENIGN LYMPH NODE [...] IN DIAMETE R.Tumor Focality: SINGLE TUMOR.IBIS TAY [id number] Type: INVASIVE ADENOCARCINOMA,PAPILLARYPREDOMINANT.Histologic Grade: G1: WELL- DIFFERENTIATED.Visceral [...] M.D., Resident PathologistAudelia Turner M.D, Staff PathologistLKS [id number] [place], [place] [address]Verified&Electronically Signed: 10/14/2017 2:52 PMThe pathologist(s) listed have reviewed, edited and approved the f inaldiagnosis.Clinical InformationReason for Procedure/Diagnosis: Malignant neoplasm ofupper lobe, left bronchus or lung.Procedure: Left upper lobectomy.IBIS TAY [id number] specimen is received in five formalin-filledcontainers, all [...] specimen is bisected and entirely submitted incassette B1.[facility] C is additionally labeled left upper [...] necrosis. The specimen is submitted asfollows:LEGEND:IBIS TAY [id number], Bronchus resection marginsC2-C6, Mass, serially sectioned and [...] 7. Thespecimen consists of a moderately firm garica-white lymphnode measuring 0.5 cm in greatest dimension. [...] was performed by myself, or IBIS Yepez [id number] Resident Physician/Pathologist Chair Car Driver under mysupervision. Any microscopic examination reportedincludes my [...] margins are free of tumor.WWest/cabXR CHEST 1 [id number] 08:04:39\X0A\INDICATION: Pneumothorax.\X0A\\X0A\COMPARISON: 10/13/2017.\X0A\\X0A\TECHNIQUE: Single semiupright AP view [...] and have edited the findings.\X0A\\X0A\XR CHEST 1 [id number] 08:15:35\X0A\INDICATION: Pneumothorax.\X0A\\X0A\COMPARISON: Single upright AP view chest [...] report and agree with the interpretation.BMP with [id number] 06:50:00* Test Item Value Reference Range Comments Glucose (test code = GLUC) 171 mg/dl 70-100 For the purpose of classification, fasting Glucose from 100-125 mg/dl is considered impaired fasting Glucose (Pre-Diabetic) by the [place] Diabetes Association.Fasting Glucose > 125 mg/dl is [...] = CA) 7.6 mg/dl 8.5-10.5 GFR if -[place] (test code = GFRAA) >90 mL/min/1.73 m2 >=90 GFR if not -[place] (test code = GFRNAA) 85 mL/min/1.73 m2 >=90 *NOTE: GFR is a calc ulated estimate of the glomerular filtration rate.* XR CHEST 1 [id number] 08:32:28Post op\X0A\INDICATION: Pneumothorax, status post left upper lobectomy.\X0A\\X0A\COMPARISON: Single upright AP view chest x- ray 10/11/2017.\X0A\\X0A\TECHNIQUE: 2 upright AP view chest x-ray.\X0A\\X0A\FINDINGS:\X0A\Lungs are clear without consolidation, pneumothorax or pleural fluid. Heart size is normal. No displaced rib fractures. Left chest tube in satisfactory position. Improved chest wall emphysema. Low lung volumes. Mild pulmonary vascular congestion.\X0A\\X0A\IMPRESSION\X0A\\X0A\1. Since 10/11/2017: No significant change\X0A\\X0A\BMP with [id number] 07:28:00* Test Item Value Reference Range Comments Glucose (test code = GLUC) 141 mg/dl 70-100 For the purpose of classification, fasting Glucose from 100-125 mg/dl is considered impaired fasting Glucose (Pre-Diabetic) by the [place] Diabetes Association.Fasting Glucose > 125 mg/dl is [...] = CA) 7.5 mg/dl 8.5-10.5 GFR if -[place] (test code = GFRAA) 89 mL/min/1.73 m2 >=90 GFR if not -[place] (test code = GFRNAA) 77 mL/min/1.73 m2 >=90 *NOTE: GFR is a calc ulated estimate of the glomerular filtration rate.* [id number] 07:15:00* Test Item Value Reference Range Comments [...] MPV) 9.5 fl 8.5-12.5 XR CHEST 1 [id number] 16:15:39CXR in Recovery room.\X0A\INDICATION: post- op\X0A\\X0A\COMPARISON: 08/15/2017\X0A\\X0A\TECHNIQUE: [...] and agree with the findings above.\X0A\ABO/Rh Typing [id number] 11:43:00O POSAntibody Screen [id number] 11:43:00* Test Item Value Reference Range Comments ABSC Interp Auto (test code = ABSCTN) Neg BMP with [id number] 10:58:00* Test Item Value Reference Range Comments Glucose (test code = GLUC) 104 mg/dl 70-100 For the purpose of classification, fasting Glucose from 100-125 mg/dl is considered impaired fasting Glucose (Pre-Diabetic) by the [place] Diabetes Association.Fasting Glucose > 125 mg/dl is [...] = CA) 8.2 mg/dl 8.5-10.5 GFR if -[place] (test code = GFRAA) >90 mL/min/1.73 m2 >=90 GFR if not -[place] (test code = GFRNAA) 83 mL/min/1.73 m2 >=90 *NOTE: GFR is a calc ulated estimate of the glomerular filtration rate.* [id number] 10:46:00* Test Item Value Reference Range Comments [...] code = MPV) 10.0 fl 8.5-12.5 .Differential, [id number] 10:46:00* Test Item Value Reference Range Comments [...] (test code = ALYM) 1.5 k/ul 1.0-4.5 [place] Absolute (test code = AMONO) 0.4 k/ul 0.1-1.1 Eos Abs (test code = AEOS) 0.2 k/ul 0.0-0.4 Baso Absolute (test code = ABASO) 0.0 k/ul 0.0-0.1 Non-Banking Teacher Final [id number] 14:52:00IBIS TAY [id number]. MEDIASTINAL LYMPH NODE, STATION 7, ENDOBRONCHIALULTRASOUND-GUIDED FINE NEEDLE ASPIRATION, (THINPREP,CELL BLOCK):- Negative for malignancy.- Lymph node components present.B. MEDIASTINAL LYMPH NODE, 11L, ENDOBRONCHIALULTRASOUND- GUIDED FINE NEEDLE ASPIRATION, (THINPREP,CELL BLOCK):- Negative for malignancy.- Lymph node components present.C. MEDIASTINAL LYMPH NODE, 12R, ENDOBRONCHIALULTRASOUND-GUIDED FINE NEEDLE ASPIRATION, (THINPREP,CELL BLOCK):- Negative formalignancy.- Lymph node components present.Screened by: Renae Hughes CytotechnologistCarli Clark M.D, PhD, Staff PathologistMEMORIAL HOSPITAL AT [facility] COUNTY [address] [place], [place] [address]Idfhvrvq and ElectronicallySigned: 08/31/17 2:52The pathologist(s) listed have reviewed, edited and approved the finaldiagnosis.AdequacySatisfactory for Evaluation.Clinical InformationLUL nodule +adenocarcinomaGrossSource of specimen: A-#7 FNA, EBUSSpecimen received: In cytolyt labeled with thepatient's name, Ibis Tay and : 53.IBIS TAY D [id number] consists of 35ml of hazy, pink fluid.Cytologic [...] preparations include:1 Cell block1 ThinPrep Pap-stainedBMP with [id number] 15:13:00* Test Item Value Reference Range Comments Glucose (test code = GLUC) 110 mg/dl 70-100 For the purpose of classification, fasting Glucose from 100-125 mg/dl is considered impaired fasting Glucose (Pre-Diabetic) by the [place] Diabetes Association.Fasting Glucose > 125 mg/dl is [...] = CA) 9.0 mg/dl 8.5-10.5 GFR if -[place] (test code = GFRAA) >90 mL/min/1.73 m2 >=90 GFR if not -[place] (test code = GFRNAA) 81 mL/min/1.73 m2 >=90 *NOTE: GFR is a calc ulated estimate of the glomerular filtration rate.* Surg Path Final [id number] 11:46:00IBIS TAY [id number] UPPER LUNG NODULE, NEEDLE BIOPSIES:1. PAPILLARY ADENOCARCIN ÁLVARO.2. INTRA-ALVEOLAR HISTIOCYTES.3. SEE COMMENT.Callum Joseph MD, Staff PathologistCOMMUNITY HOSPITAL [facility] [address] [place] [address], [address]Eiqvbweg&Electronically Signed: 08/17/2017 11:46 AMThe pathologist(s) listed have [...] morphologic features, areconsistent with papillary adenocarcinomaIBIS TAY 155201em lung origin. Other potential sites of tumor [...] tissue unless otherwise statedutilizing the indirect biotin-free [place] ultraViewDAB Detection Kit. This test was developed and itsperformance characteristics determined by [facility]. Some antibodies may not have been clearedor approved by the U.S. Food and Drug Administration.This test is used for clinical purposes. It should notbe regarded as investigational or for research. [facility] is certified under the Clinical LaboratoryImprovement Amendments (CLIA) as qualified to performhigh complexity clinical laboratory testing, and hasestablished and verified the test's accuracy andprecision. This assay has not been validated ondecalcified tissues. Results should be interpreted withcaution given the likelihood offalse negativity ondecalcified specimens. Positive and negative controlshave been stained appropriately. ER (SP1), VT (1E2),Ki67(30-9), HER-2/vee (4B5) methods are approved by theA. (ASCO/CAP 2013 Guidelines). Prelim [id number] 11:06:00IBIS TAY [id number] DiagnosisLEFT UPPER LUNG NODULE, NEEDLE BIOPSIES:1. ATYPICALPAPILLARY LESION.2. ANCILLARY STUDIES PENDING; SEE COMMENT.Comment:Ancillary stains will be performe d in an effort tobetter characterize the nature of this lesion, andthose results will beissued in afinal report.Callum Joseph MD, Staff PathologistCOMMUNITY HOSPITAL [facility] [address] [place], [place] [address]Verified&Electronically Signed: 08/16/2017 11:06 AMThe pathologist(s) listed have [...] to arrive atthe diagnostic conclusion reported.IBIS TAY [id number]/William Joseph MD, Staff PathologistCOMMUNITY HOSPITAL [facility] Athqanpgju[address], [address]Reyhxpwi&Electronically Signed: 08/16/2017 11:06 AMThe pathologist(s) listed have reviewed, edited and approved the finaldiagnosis.Preliminary DiagnosisLEFT UPPER LUNG NODULE, NEEDLE BIOPSIES:1. ATYPICAL PAPILLARY LESION.2. ANCILLARY STUDIES PENDING; SEE COMMENT.Comment:Ancillary stains willbe performed in an effort tobetter characterize the nature of this lesion, andthose results will beissued in a final report.Callum Joseph MD, Staff PathologistCOMMUNITY HOSPITAL [facility] [address], [address]Hrlbekyh&Electronically Signed: 08/16/2017 11:06 AMThe pathologist(s) listed have reviewed, edited and approved the finaldiagnosis.CT [id number] 13:30:00\X0A\EXAM: CT-guided left upper lobe lung needle [...] diagnosis.\X0A\\X0A\Start time-1036\X0A\End time-1115\X0A\\X0A\Versed-2mg \X0A\Fentanyl-100mcg\X0A\\X0A\fluro time-28secXR CHEST 1 [id number] 13:03:52 \X0A\EXAM: Chest AP upright portable 08/15/2017 [...] considered impaired fasting Glucose (Pre-Diabetic) by the [place] Diabetes Association.Fasting Glucose > 125 mg/dl is [...] = CA) 9.2 mg/dl 8.5-10.5 GFR if -[place] (test code = GFRAA) >90 mL/min/1.73 m2 >=90 GFR if not -[place] (test code = GFRNAA) >90 mL/min/1.73 m2 >=90 *NOTE: GFR is a calc ulated estimate of the glomerular filtration rate.* [id number] 04:24:00* Test Item Value Reference Range Comments [...] code = MPV) 9.8 fl 8.5-12.5 .Differential, [id number] 04:24:00* Test Item Value Reference Range Comments [...] (test code = ALYM) 1.0 k/ul 1.0-4.5 [place] Absolute (test code = AMONO) 0.3 k/ul 0.1-1.1 Eos Abs (test code = AEOS) 0.1 k/ul 0.0-0.4 Baso Absolute (test code = ABASO) 0.0 k/ul 0.0-0.1 [id number] 03:34:00* Test Item Value Reference Range Comments PTT (test code = PTTAVE) 28.4 sec 22.8-33.9 [id number] 03:34:00* Test Item Value Reference Range Comments PT (test code = PTAVE) 10.9 sec 9.6-11.9 INR (test code = PTINR) 1.0 0.9-1.1 Warf jesus alberto THERAPEUTIC INR RANGE = 2.0 - 3.0 CT ANGIOGRAM CHEST WITH AND OR WITHOUT IV [id number] 19:12:53\X0A\REASON FOR EXAM: Cough, congestion, back pain\X0A\\X0A\DISCUSSION:\X0A\CT [...] sore throat, body aches\X0A\Chest and back pain\X0A\100cc [id number] 17:45:00* Test Item Value Reference Range Comments Troponin-I (test code = TROP) <0.04 ng/mL <=0.04 CMP with [id number] 17:45:00* Test Item Value Reference Range Comments Glucose (test code = GLUC) 99 mg/dl 70-100 For the purpose of classification, fasting Glucose from 100-125 mg/dl is considered impaired fasting Glucose (Pre-Diabetic) by the [place] Diabetes Association.Fasting Glucose > 125 mg/dl is [...] = ALT) 26 u/l 12-78 GFR if -[place] (test code = GFRAA) 85 mL/min/1.73 m2 >=90 GFR if not -[place] (test code = GFRNAA) 73 mL/min/1.73 m2 >=90 *NOTE: GFR is a calc ulated estimate of the glomerular filtration rate.* D-Dimer, [id number] 17:39:00* Test Item Value Reference Range Comments [...] of Disseminated Intravascular Coagulopathy or other fibrinolyticprocess. [id number] 17:26:00* Test Item Value Reference Range Comments [...] code = MPV) 10.4 fl 8.5-12.5 .Differential, [id number] 17:26:00* Test Item Value Reference Range Comments [...] (test code = ALYM) 1.3 k/ul 1.0-4.5 [place] Absolute (test code = AMONO) 0.4 k/ul 0.1-1.1 Eos Abs (test code = AEOS) 0.1 k/ul 0.0-0.4 Baso Absolute (test code = ABASO) 0.0 k/ul 0.0-0.[address] SKULL BASE TO MID THIGH [id number] 15:29:28\X0A\Indication/Clinical History: 62-year-old female with history of [...] hilar or mediastinal lymph nodes.\X0A\?\X0A\There is a poorly defined 14 mm nodule localized to the upper [...] and a fracture of the left ninth rib.\X0A\?\ X0A\IMPRESSION:\X0A\?\X0A\Bilateral pulmonary parenchymal abnormalities with metabolic rates lower than commonly associated with malignancy.\X0A\?\X0A\Continued follow-up with CT is [id number] 11:13:00* Test Item Value Reference Range Comments Glucose Strip (test code = CSGLUC) 112 mg/dl 70-110 [id number] 11:13:00* Test Item Value Reference Range Comments Glucose Strip (test code = CSGLUC) 125 mg/dl 70-110 .Influ A [id number] 20:38:00* Test Item Value Reference Range Comments Influenza A Antigen (test code = INFAG) NEGATIVE N egative .Influ B [id number] 20:38:00* Test Item Value Reference Range Comments Influenza B Antigen (test code = INFBAG) neg Negative POC Blood Gas [id number] 20:12:00* Test Item Value Reference Range Comments [...] (test code = ALLENS) POS CMP with [id number] 19:36:00* Test Item Value Reference Range Comments Glucose (test code = GLUC) 97 mg/dl 70-100 For the purpose of classification, fasting Glucose from 100-125 mg/dl is considered impaired fasting Glucose (Pre-Diabetic) by the [place] Diabetes Association.Fasting Glucose > 125 mg/dl is [...] = ALT) 19 u/l 12-78 GFR if -[place] (test code = GFRAA) >90 mL/min/1.73 m2 >=90 GFR if not -[place] (test code = GFRNAA) 84 mL/min/1.73 m2 >=90 *NOTE: GFR is a calculated estimate of the glomerular filtration rate.* Bilirubin Total (test code = TBIL) 0.2 mg/dl 0.0-1.5 HF Peptide (proBNP)2017-07-23 19:36:00* Test Item Value Reference Range Comments HF Peptide (proBNP) (test code = HFPEP) 64 pg/ml < =124 XR CHEST 1 [id number] 19:32:47\X0A\REASON FOR EXAM: Shortness of breath\X0A\\X0A\DISCUSSION:\X0A\Portable AP [...] (test code = ALYM) 1.7 k/ul 1.0-4.5 [place] Absolute (test code = AMONO) 0.3 k/ul 0.1-1.1 Eos Abs (test code = AEOS) 0.1 k/ul 0.0-0.4 Baso Absolute (test code = ABASO) 0.0 k/ul 0.0-0.1 [id number] 19:20:00* Test Item Value Reference Range Comments [...] Notes Date/Time Note Provider Source 2024-01-06 15:42:00 [facility] Care Coordinatio n Note: Type of Encounter: Successful Phone Call with Patient on 01/06/2024. Reason for Encounter: Payor Plan Required Outreach: Colorectal Cancer Screening. Order was placed for a cologuard in May 2023. Pt states she did not complete up because some things came up. States she is currently packing and moving to [place] tomorrow and will be having her records transferred and will discuss this with her new provider to will establish with in [place]. She declined to do the cologurad at this time due to moving. All Future [facility] Appointments: (Scheduled as of the time this note was created) No future appointments. JADON QIU [facility] 2023-12-13 15:50:00 [facility] CHIEF COMPLAINT Back Pain SUBJECTIVE Ibis Walter An is a 68 y.o. female who presents [...] 2 bottles per day. Patient requests strawberry. 19005 mL 3 - hydroCHLOROthiazide (HYDRODIURIL) 25 MG [...] 90 tablet 1 - [place] [facility]ence pads, 2 per day 100 each 6 - miscellaneous medical supply [facility] Needs nebulizer machine for use for breathing problems for duo-nebs treatments 1 each 0 - miscellaneous medical supply [facility] Needs mask, tubing and filter for nebulizer machine to be changed every 3 months. 1 each 3 - naloxone 2 mg/actuation Sproul, Non-Aerosol 2 mg by Nasal route as [...] continuation of chronic opiate therapy. ISAÍAS CARDENAS [facility] 2023-11-07 12:20:00 [facility] CHIEF COMPLAINT No chief [...] 2 bottles per day. Patient requests strawberry. 00772 mL 3 - hydroCHLOROthiazide (HYDRODIURIL) 25 MG [...] 90 tablet 1 - miscellaneous medical [place] [facility] [place]s incontinence pads, 2 per day 100 each 6 - miscellaneous medical supply [facility] Needs nebulizer machine for use for breathing problems for duo-nebs treatments 1 each 0 - miscellaneous medical supply [facility] Needs mask, tubing and filter for nebulizer machine to be changed every 3 months. 1 each 3 - naloxone 2 mg/actuation Sproul, Non-Aerosol 2 mg by Nasal route as [...] opiate therapy. ISAÍAS CARDENAS [facility] 2023-09-22 10:45:00 Patient Ibis anderson s consent to Mike [...] She had a left upper lobectomy at [facility] with Dr. Moore in 2018. The patient [...] . MIKE ANN JR, [facility] 2023-09-08 11:10:00 [facility] CHIEF COMPLAINT Back Pain [...] (Start on 10/08/2023) Patient underwent LESI on 621She notes 50% improvement but continues with low [...] 2 bottles per day. Patient requests strawberry. 00576 mL 3 - hydroCHLOROthiazide (HYDRODIURIL) 25 MG [...] 90 tablet 1 - miscellaneous medical [place] [facility] Requests incontinence pads, 2 per day 100 each 6 - miscellaneous medical supply [facility] Needs nebulizer machine for use for breathing problems for duo-nebs treatments 1 each 0 - miscellaneous medical supply [facility] Needs mask, tubing and filter for nebulizer machine to be changed every 3 months. 1 each 3 - naloxone 2 mg/actuation Sproul, Non-Aerosol 2 mg by Nasal route as [...] opiate therapy. ISAÍAS CARDENAS [facility] 2023-08-25 14:45:00 Patient Ibis antone s consent to Mike Ann Jr., MD's [...] discharge. The patient was seen in the [facility] ER on 08/03/2023. She was discharged [...] She had a left upper lobectomy at [facility] with Dr. Moore in 2018. The patient [...] the visit. . MIKE ANN JR, [facility] 2023-08-11 14:50:00 [facility] CHIEF COMPLAINT No chief [...] 2 bottles per day. Patient requests strawberry. 86192 mL 3 - hydroCHLOROthiazide (HYDRODIURIL) 25 MG [...] 14 tablet 0 - miscellaneous medical [place] [facility] Requests incontinence pads, 2 per day 100 each 6 - miscellaneous medical supply [facility] Needs nebulizer machine for use for breathing problems for duo-nebs treatments 1 each 0 - miscellaneous medical supply [facility] Needs mask, tubing and filter for nebulizer machine to be changed every 3 months. 1 each 3 - naloxone 2 mg/actuation Sproul, Non-Aerosol 2 mg by Nasal route as [...] Center 08/11/2023 2:50 PM Isaías Cardenas MD [facility] 08/31/2023 10:00 AM [facility] [...] Center 08/11/2023 2:50 PM Isaías Cardenas MD [facility] 08/31/2023 10:00 AM [facility] RAD DIAGNOSTIC DEXA IMCRADDIAG [facility] 08/31/2023 10:45 AM [facility] MAMMOGRAPHY RM 1 IMCMAMMO [facility] 09/05/2023 11:00 AM [facility] CT RM 1 -16 SLICE IMCCT RICCO Baires [facility] 2023-08-03 18:19:17 [facility] EMERGENCY DEPARTMENT ENCOUNTER Pt Name: Ibis Tay [...] - Bursitis Left hip - Cancer (HCC) \2016 left lung cancer, scheduled for left upper lobectomy at [facility] with Dr. Moore - Cervical radiculopathy sees Dr. Cardenas, gets cervical pain injections every 3 months, last done in - COPD (chronic obstructive pulmonary disease) ([facility]) - DDD (degenerative disc disease) - Depression [...] Palpitations with anxiety - Peripheral vascular disease ([facility]) 10/2020 abdominal pain-stricture liliac artery - Peripheral vascular disease ([facility]) 11/30/2022 Abnormal resting ankle brachial indices, waveform [...] - LUNG LOBECTOMY Left 10/11/2017 Upper - VT INTRODUCTION CATHETER AORTA Right 11/03/2020 Procedure: ABDOMINAL AORTOGRAM; Surgeon: Imelda Swan MD; Location: [facility]; Service: Vascular - VT TOTAL KNEE ARTHROPLASTY Right 05/28/2014 Procedure: REPLACEMENT TOTAL JOINT KNEE RIGHT / BETO ; Surgeon: Isaak Moncada MD; Location: [facility] OR; Service: Orthopedics - SPINE SURGERY lumbar [...] TABLET BY MOUTH DAILY MISCELLANEOUS MEDICAL [place]PPLY [facility] [place] incontinence pads, 2 per day MISCELLANEOUS MEDICAL [place]PLY [facility] [place] nebulizer machine for use for breathing problems for duo-nebs treatments MISCELLANEOUS MEDICAL SUPPLY [facility] [place] mask, tubing and filter for nebulizer [...] this chart in the absence of a hairspring assembler. Pending My RADIOLOGY Interpretation: I provided an [...] DO 08/03/231918 CHADWICK LOREDO [facility] 2023-07-04 11:20:00 [facility] CHIEF COMPLAINT No chief [...] 2 bottles per day. Patient requests strawberry. 01992 mL 3 - hydroCHLOROthiazide (HYDRODIURIL) 25 MG [...] 90 tablet 1 - miscellaneous medical [place] [facility] Requests incontinence pads, 2 per day 100 each 6 - miscellaneous medical supply [facility] Needs nebulizer machine for use for breathing problems for duo-nebs treatments 1 each 0 - miscellaneous medical supply [facility] Needs mask, tubing and filter for nebulizer machine to be changed every 3 months. 1 each 3 - naloxone 2 mg/actuation Sproul, Non-Aerosol 2 mg by Nasal route as [...] continuation of chronic opiate therapy. ISAÍAS CARDENAS GLORIA 2023-06-13 08:45:00 Patient, Ibis anderson s consent to Mike [...] Cervical radiculopathy 11/27/2020 - Stricture of artery ([facility]) 10/24/2020 - Vascular disease, peripheral ([facility]) 09/16/2020 - Secondary malignant neoplasm of other specified sites ([facility]) 09/16/2020 - Compression fracture of body of thoracic vertebra ([facility]) 05/21/2018 - Non-small cell lung cancer ([facility]) 05/21/2018 - Right hand pain - Urinary tract infection without hematuria 11/18/2017 - Fall at home, sequela 11/18/2017 - Acute cystitis without hematuria 11/02/2017 - Malignant neoplasm of upper lobe, left bronchus or lung ([facility]) 10/11/2017 - Lung cancer ([facility]) 08/30/2017 - Mediastinal lymphadenopathy 08/30/2017 - Adenocarcinoma of lung, left ([facility]) - Other chest pain 07/06/2017 - Pulmonary nodule 07/06/2017 - Severe sepsis ([facility]) - Pneumonia of left lower lobe due to infectious organism 07/01/2017 - Community acquired pneumonia 06/03/2017 - COPD exacerbation ([facility]) 06/03/2017 - Hypoxia 06/03/2017 - Dyslipidemia 04/15/2017 - Vitamin D deficiency 02/08/2017 - Anxiety state 01/30/2015 - Pain in joint, lower leg 01/30/2015 - Routine general medical examination at a health care facility 01/30/2015 - Osteoarthritis of knee 01/30/2015 - S/P total knee arthroplasty 01/07/2015 - S/P hip hemiarthroplasty- Left 01/07/2015 - Mild episode of recurrent major depressive disorder ([facility]) 11/19/2014 - Hip fracture, left ([facility]) 09/26/2014 - Knee osteoarthritis 05/28/2014 - Knee [...] Zoster Vaccine IM 03/19/2020 - COVID-19 2022-24 PFIZER (COMIRNATY) 12 YRS + ([id number]) 04/22/2023 - COVID-19 VACCINE MRNA (MODERNA/BIVALENT)(DARK BLUE CAP W/GARCIA)([id number] & [id number]) 12/18/2022 - COVID-19 mRNA (PF)(LNP-S BIVALENT) (Garcia Cap) 12YR+ ([employer])([id number]) 05/19/2022 - Covid-19 Vaccine MRNA (PF) 12yr+ ([employer])([id number]) 09/06/2020, 09/27/2020, 04/23/2021 - Covid-19 Vaccine MRNA(PF, Premixed) 12yr+ ([employer])([id number]) 10/17/2021 - Influenza Four-QIV 6MO+ PF IM ([id number]) 03/24/2017 - Influenza A9m5-25, Pf 05/29/2009 - Influenza High Dose Preservative Free 04/05/2019 - Influenza High Dose Preservative Free IM ([id number]) 04/05/2019, 04/23/2021, 03/23/2022, 03/03/2023 - Influenza TIV (IM) 03/24/2010, 05/01/2012 - Influenza Three-TIV Non-Preservative Free 3+ Years IM 04/17/2014 - Influenza Three-tiv Non-preservative Free Gn 04/17/2013 - Pneumococcal Conjugate (Prevnar) 13-Valent 06/15/2016 - Pneumococcal Conjugate Vaccine (20-Valent) IM 03/12/2022, 12/18/2022 - Pneumococcal Polysaccharide (Pneumovax) 03/18/2009, 04/18/2014 - RESPIRATORY SYNCYTIAL VIRUS (RSV) VACCINE ([employer])([id number]) 03/03/2023 - Shingrix/Zoster 03/19/2020 - Td 7+ years, (TDVAX) 2 Lf tetanus toxoid preservative free 01/29/2013 - Tdap 04/15/2009, 12/29/2016 Past Medical/Surgical History: Past Medical History: Diagnosis Date - Anxiety Takes Xanax - Arthritis - Breast mass 2013 rt axilla - Bronchitis - Bursitis Left hip - Cancer (HCC) left lung cancer, scheduled for left upper lobectomy at [facility] with Dr. Moore - Cervical radiculopathy sees Dr. Cardenas, gets cervical pain injections every 3 months, last done in - COPD (chronic obstructive pulmonary disease) ([facility]) - DDD (degenerative disc disease) - Depression [...] Palpitations with anxiety - Peripheral vascular disease ([facility]) 10/2020 abdominal pain-stricture liliac artery - Peripheral vascular disease ([facility]) 11/30/2022 Abnormal resting ankle brachial indices, waveform [...] - LUNG LOBECTOMY Left 10/11/2017 Upper - [place] INTRODUCTION CATHETER AORTA Right 11/03/2020 Procedure: ABDOMINAL AORTOGRAM; Surgeon: Imelda Swan MD; Location: [facility]; Service: Vascular - [place] TOTAL KNEE ARTHROPLASTY Right 05/28/2014 Procedure: REPLACEMENT TOTAL JOINT KNEE RIGHT / BETO ; Surgeon: Isaak Moncada MD; Location: [facility] OR; Service: Orthopedics - SPINE SURGERY lumbar [...] No Hearing Aids: No Dentures: Yes Lifestyle Rastafari Affiliation: Jainism Spirituality: yes Exercise: Other Diet: Other Care [...] given if needed 5-10 Year Screening Plan [place] Score =The CVD Risk score (D'Agostino, et al., 2008) failed to calculate for the following reasons: The patient has a prior OR, stroke, CHF, or peripheral vascular disease diagnosis [...] . MIKE ANN JR, CHI 2023-06-07 12:10:00 [facility] CHIEF COMPLAINT No chief [...] 2 bottles per day. Patient requests strawberry. 43436 mL 3 - hydroCHLOROthiazide (HYDRODIURIL) 25 MG [...] 90 tablet 1 - miscellaneous medical [place] [facility] Requests incontinence pads, 2 per day 100 each 6 - miscellaneous medical supply [facility] Needs nebulizer machine for use for breathing problems for duo-nebs treatments 1 each 0 - miscellaneous medical supply [facility] Needs mask, tubing and filter for nebulizer machine to be changed every 3 months. 1 each 3 - naloxone 2 mg/actuation Sproul, Non-Aerosol 2 mg by Nasal route as [...] - Home or Self Care All Future [facility] Appointments: (Scheduled as of the time this note was created) Future Appointments Date Time Provider Department Center 06/07/2023 12:10 PM [facility] 06/13/2023 9:00 AM Mike Ann Jr., MD [id number] One 09/05/2023 11:00 AM [facility] RM 1 -16 SLICE IMCCT LASHAUN Valdivia [facility] 2023-05-22 16:28:31 [facility] EMERGENCY DEPARTMENT ENCOUNTER Pt Name: Ibis Tay [...] cancer, scheduled for left upper lobectomy at [facility] with Dr. Moore - Cervical radiculopathy sees [...] - LUNG LOBECTOMY Left 10/11/2017 Upper - [place] INTRODUCTION CATHETER AORTA Right 11/03/2020 Procedure: ABDOMINAL AORTOGRAM; Surgeon: Imelda Swan MD; Location: [facility]; Service: Vascular - [place] TOTAL KNEE ARTHROPLASTY Right 05/28/2014 Procedure: REPLACEMENT TOTAL JOINT KNEE RIGHT / BETO ; Surgeon: Isaak Moncada MD; Location: [facility] OR; Service: Orthopedics - SPINE SURGERY lumbar [...] 2 bottles per day. Patient requests strawberry. 54738 mL 3 - hydroCHLOROthiazide (HYDRODIURIL) 25 MG [...] 90 tablet 1 - miscellaneous medical supply [facility] Requests incontinence pads, 2 per day 100 each 6 - miscellaneous medical supply [facility] Needs nebulizer machine for use for breathing problems for duo-nebs treatments 1 each 0 - miscellaneous medical supply [facility] Needs mask, tubing and filter for nebulizer machine to be changed every 3 months. 1 each 3 - naloxone 2 mg/actuation Sproul, Non-Aerosol 2 mg by Nasal route as [...] Value Ref Range Date/Time Resp Panel 4-plex [[id number]] Collected: 05/22/23 1657 Order Status: Completed Specimen: [...] a close inspection of the workup and chcf care. I answered all questions to the [...] Order Dose Route Action Comments 05/22/2023 1653 FUR COMBER ipratropium-albuteroL (DUO-NEB) 0.5-2.5 mg/3 mL nebulizer solution 3 mL 3 mL Nebulization Given -- 05/22/2023 1653 FUR COMBER dexamethasone (DECADRON PF) injection 10 mg 10 mg IntraMuscular Given -- 05/22/2023 1805 FUR COMBER morphine 4 mg/mL syringe 4 mg 4 mg IntraMuscular Given -- 05/22/2023 1809 FUR COMBER ipratropium-albuteroL (DUO-NEB) 0.5-2.5 mg/3 mL nebulizer solution 3 mL 3 mL Nebulization Given -- 05/22/2023 1815 FUR COMBER cefdinir (OMNICEF) capsule 300 mg Oral Given [...] Mike Ann Jr., MD [address] [facility] [address] [facility] [phone] Schedule an appointment as soon as possible [...] (two) times a day. Ensure Liqd Quantity: 61185 mL Generic drug: food supplemt, lactose-reduced Drink [...] changed every 3 months. naloxone 2 mg/actuation [place] Quantity: 4 each 2 mg by Nasal [...] Your Medications These medications were sent to [facility] [id number] [facility] [address] [address] [facility] [address] [facility] [id number] cefdinir 300 MG capsule (Please note that portions of this note were completed with a voice recognition program. Efforts were made to edit the dictations but occasionally words are mis-transcribed.) MD Jasmin Yost MD 05/22/231830 JASMIN ZIEGLER [facility] 2023-04-28 10:50:00 [facility] CHIEF COMPLAINT No chief [...] 2 bottles per day. Patient requests strawberry. 81501 mL 3 - hydroCHLOROthiazide (HYDRODIURIL) 25 MG [...] 90 tablet 1 - miscellaneous medical supply [facility] Needs nebulizer machine for use for breathing problems for duo-nebs treatments 1 each 0 - miscellaneous medical supply [facility] Needs mask, tubing and filter for nebulizer machine to be changed every 3 months. 1 each 3 - miscellaneous medical supply [facility] Requests incontinence pads, 2 per day 100 each 6 - naloxone 2 mg/actuation Sproul, Non-Aerosol 2 mg by Nasal route as [...] CHI 2023-04-15 07:00:00 Operative Note PATIENT: Ibis Walter Tay Primary Care Physician: Mike Ann Jr, MD : 1955 Age: 68 y.o. Procedure Information Procedure: INTERLAMINAR CERVICAL EPIDURALS STEROID INJECTION W/ Fluoroscopy (CPT 00521) Date of Procedure: April 15, 2023 Site of Service: [facility] Pre-operative Diagnosis: Cervical radiculopathy [M54.12] Post-operative Diagnosis: SAME Surgeon: Isaías Cardenas MD Chair Car Driver(s): NONE Anesthesia:LOCAL Estimated Blood Loss: MINIMAL FINDINGS: [...] . MIKE ANN JR, CHI 2023-03-03 10:50:00 [facility] CHIEF COMPLAINT No chief [...] 2 bottles per day. Patient requests strawberry. 17324 mL 3 - hydroCHLOROthiazide (HYDRODIURIL) 25 MG [...] 90 tablet 1 - miscellaneous medical supply [facility] Needs nebulizer machine for use for breathing problems for duo-nebs treatments 1 each 0 - miscellaneous medical supply [facility] Needs mask, tubing and filter for nebulizer machine to be changed every 3 months. 1 each 3 - miscellaneous medical supply [facility] Requests incontinence pads, 2 per day 100 each 6 - naloxone 2 mg/actuation Sproul, Non-Aerosol 2 mg by Nasal route as [...] continuation of chronic opiate therapy. ISAÍAS CARDENAS [facility] 2023-02-03 13:50:00 [facility] CHIEF COMPLAINT No chief [...] 2 bottles per day. Patient requests strawberry. 35907 mL 3 - hydroCHLOROthiazide (HYDRODIURIL) 25 MG [...] 90 tablet 1 - miscellaneous medical supply [facility] Needs nebulizer machine for use for breathing problems for duo-nebs treatments 1 each 0 - miscellaneous medical supply [facility] Needs mask, tubing and filter for nebulizer machine to be changed every 3 months. 1 each 3 - miscellaneous medical supply [facility] Requests incontinence pads, 2 per day 100 each 6 - naloxone 2 mg/actuation Sproul, Non-Aerosol 2 mg by Nasal route as [...] by: Isaías Cardenas MD, 02/03/2023 2:24 PM [facility] CHIEF COMPLAINT No chief [...] 2 bottles per day. Patient requests strawberry. 26732 mL 3 - hydroCHLOROthiazide (HYDRODIURIL) 25 MG [...] 90 tablet 1 - miscellaneous medical supply [facility] Needs nebulizer machine for use for breathing problems for duo-nebs treatments 1 each 0 - miscellaneous medical supply [facility] Needs mask, tubing and filter for nebulizer machine to be changed every 3 months. 1 each 3 - miscellaneous medical supply [facility] Requests incontinence pads, 2 per day 100 each 6 - naloxone 2 mg/actuation Sproul, Non-Aerosol 2 mg by Nasal route as [...] by: Isaías Cardenas MD, 02/03/2023 2:24 PM [facility] CHIEF COMPLAINT No chief [...] 2 bottles per day. Patient requests strawberry. 60027 mL 3 - hydroCHLOROthiazide (HYDRODIURIL) 25 MG [...] 90 tablet 1 - miscellaneous medical supply [facility] Needs nebulizer machine for use for breathing problems for duo-nebs treatments 1 each 0 - miscellaneous medical supply [facility] Needs mask, tubing and filter for nebulizer machine to be changed every 3 months. 1 each 3 - miscellaneous medical supply [facility] Requests incontinence pads, 2 per day 100 each 6 - naloxone 2 mg/actuation Sproul, Non-Aerosol 2 mg by Nasal route as [...] by: Isaías Cardenas MD, 02/03/2023 2:24 PM [facility] CHIEF COMPLAINT No chief [...] 2 bottles per day. Patient requests strawberry. 75885 mL 3 - hydroCHLOROthiazide (HYDRODIURIL) 25 MG [...] 90 tablet 1 - miscellaneous medical supply [facility] Needs nebulizer machine for use for breathing problems for duo-nebs treatments 1 each 0 - miscellaneous medical supply [facility] Needs mask, tubing and filter for nebulizer machine to be changed every 3 months. 1 each 3 - miscellaneous medical supply [facility] Requests incontinence pads, 2 per day 100 each 6 - naloxone 2 mg/actuation Sproul, Non-Aerosol 2 mg by Nasal route as [...] Cardenas MD, 02/03/2023 2:24 PM ISAÍAS CARDENAS [facility] 2022-12-30 10:30:00 [facility] CHIEF COMPLAINT No chief [...] 2 bottles per day. Patient requests strawberry. 35796 mL 3 - hydroCHLOROthiazide (HYDRODIURIL) 25 MG [...] 90 tablet 1 - miscellaneous medical supply [facility] Needs nebulizer machine for use for breathing problems for duo-nebs treatments 1 each 0 - miscellaneous medical supply [facility] Needs mask, tubing and filter for nebulizer machine to be changed every 3 months. 1 each 3 - miscellaneous medical supply [facility] Requests incontinence pads, 2 per day 100 each 6 - naloxone 2 mg/actuation Sproul, Non-Aerosol 2 mg by Nasal route as [...] by: Isaías Cardenas MD, 12/30/2022 10:52 AM [facility] CHIEF COMPLAINT No chief [...] would like to proceed with repeat cervical WAQRA She has tried OTC NSAIDs, daily home [...] 2 bottles per day. Patient requests strawberry. 44031 mL 3 - hydroCHLOROthiazide (HYDRODIURIL) 25 MG [...] 90 tablet 1 - miscellaneous medical supply [facility] Needs nebulizer machine for use for breathing problems for duo-nebs treatments 1 each 0 - miscellaneous medical supply [facility] Needs mask, tubing and filter for nebulizer machine to be changed every 3 months. 1 each 3 - miscellaneous medical supply [facility] Requests incontinence pads, 2 per day 100 each 6 - naloxone 2 mg/actuation [place]oul, Non-Aerosol 2 mg by Nasal route as [...] by: Isaías Cardenas MD, 12/30/2022 10:52 AM [facility] CHIEF COMPLAINT No chief [...] 2 bottles per day. Patient requests strawberry. [id number] mL 3 - hydroCHLOROthiazide (HYDRODIURIL) 25 MG [...] 90 tablet 1 - miscellaneous medical supply [facility] Needs nebulizer machine for use for breathing problems for duo-nebs treatments 1 each 0 - miscellaneous medical supply [facility] Needs mask, tubing and filter for nebulizer machine to be changed every 3 months. 1 each 3 - miscellaneous medical supply [facility] Requests incontinence pads, 2 per day 100 each 6 - naloxone 2 mg/actuation [place]oul, Non-Aerosol 2 mg by Nasal route as [...] by: Isaías Cardenas MD, 12/30/2022 10:52 AM [facility] CHIEF COMPLAINT No chief [...] been reviewed and includes: DRUG FREQ Percocet 10 qid qid Patient's most recent interventional procedures: [...] 2 bottles per day. Patient requests strawberry. [id number] mL 3 - hydroCHLOROthiazide (HYDRODIURIL) 25 MG [...] 90 tablet 1 - miscellaneous medical supply [facility] Needs nebulizer machine for use for breathing problems for duo-nebs treatments 1 each 0 - miscellaneous medical supply [facility] Needs mask, tubing and filter for nebulizer machine to be changed every 3 months. 1 each 3 - miscellaneous medical supply [facility] Requests incontinence pads, 2 per day 100 each 6 - naloxone 2 mg/actuation Sproul, Non-Aerosol 2 mg by Nasal route as [...] Relevant Medications fluconazole (Diflucan) 100 MG tablet jiafef-rutkqculn-ilt,al-simeth [id number] mg/30mL Mouthwash chlorhexidine (PERIDEX) 0.12 % mouthwash [...] of the solution every night x10 days. Sandy the dentures thoroughly every night and in [...] has good oral care routine and uses ucxc-jhh-dkgpeoc tablets to clean her dentures. She is [...] canal and external ear normal. Mouth/Throat: Lips: [place]. Mouth: Mucous membranes are moist. Oral lesions [...] This note was compiled in part using [employer] voice recognition technology. Despite the note being reviewed and due to limitation of the technology it may contain typographical, grammatical, and voice recognition errors. PIPE BECK [facility] 2022-12-02 11:50:00 [facility] CHIEF COMPLAINT No chief [...] 2 bottles per day. Patient requests strawberry. 85310 mL 3 - hydroCHLOROthiazide (HYDRODIURIL) 25 MG [...] 90 tablet 1 - miscellaneous medical supply [facility] Needs nebulizer machine for use for breathing problems for duo-nebs treatments 1 each 0 - miscellaneous medical supply [facility] Needs mask, tubing and filter for nebulizer machine to be changed every 3 months. 1 each 3 - miscellaneous medical supply [facility] Requests incontinence pads, 2 per day 100 each 6 - naloxone 2 mg/actuation Sproul, Non-Aerosol 2 mg by Nasal route as [...] by: Isaías Cardenas MD, 12/02/2022 12:16 PM [facility] CHIEF COMPLAINT No chief [...] 2 bottles per day. Patient requests strawberry. 62261 mL 3 - hydroCHLOROthiazide (HYDRODIURIL) 25 MG [...] 90 tablet 1 - miscellaneous medical supply [facility] Needs nebulizer machine for use for breathing problems for duo-nebs treatments 1 each 0 - miscellaneous medical supply [facility] Needs mask, tubing and filter for nebulizer machine to be changed every 3 months. 1 each 3 - miscellaneous medical supply [facility] Requests incontinence pads, 2 per day 100 each 6 - naloxone 2 mg/actuation Sproul, Non-Aerosol 2 mg by Nasal route as [...] by: Isaías Cardenas MD, 12/02/2022 12:16 PM [facility] CHIEF COMPLAINT No chief [...] 2 bottles per day. Patient requests strawberry. 85935 mL 3 - hydroCHLOROthiazide (HYDRODIURIL) 25 MG [...] 90 tablet 1 - miscellaneous medical supply [facility] Needs nebulizer machine for use for breathing problems for duo-nebs treatments 1 each 0 - miscellaneous medical supply [facility] Needs mask, tubing and filter for nebulizer machine to be changed every 3 months. 1 each 3 - miscellaneous medical supply [facility] Requests incontinence pads, 2 per day 100 each 6 - naloxone 2 mg/actuation Sproul, Non-Aerosol 2 mg by Nasal route as [...] by: Isaías Cardenas MD, 12/02/2022 12:17 PM [facility] CHIEF COMPLAINT No chief [...] 2 bottles per day. Patient requests strawberry. 62844 mL 3 - hydroCHLOROthiazide (HYDRODIURIL) 25 MG [...] 90 tablet 1 - miscellaneous medical supply [facility] Needs nebulizer machine for use for breathing problems for duo-nebs treatments 1 each 0 - miscellaneous medical supply [facility] Needs mask, tubing and filter for nebulizer machine to be changed every 3 months. 1 each 3 - miscellaneous medical supply [facility] Requests incontinence pads, 2 per day 100 each 6 - naloxone 2 mg/actuation Sproul, Non-Aerosol 2 mg by Nasal route as [...] cancer, scheduled for left upper lobectomy at [facility] with Dr. Moore - Cervical radiculopathy sees [...] - LUNG LOBECTOMY Left 10/11/2017 Upper - [place] INTRODUCTION CATHETER AORTA Right 11/03/2020 Procedure: ABDOMINAL AORTOGRAM; Surgeon: Imelda Swan MD; Location: [facility]; Service: Vascular - [place] TOTAL KNEE ARTHROPLASTY Right 05/28/2014 Procedure: REPLACEMENT TOTAL JOINT KNEE RIGHT / BETO ; Surgeon: Isaak Moncada MD; Location: [facility]; Service: Orthopedics - SPINE SURGERY lumbar [...] Lower Extremities Principal Problem: 1. Atherosclerosis of [place] artery of both lower extremities with intermittent [...] lele patient send referral to Dr. Mariya oCx concern for following bladder 3. Urinary incontinence, [...] the visit. . MIKE ANN JR, CHI 2022-11-04 09:50:00 [facility] CHIEF COMPLAINT Neck Pain [...] 2 bottles per day. Patient requests strawberry. 33284 mL 3 - hydroCHLOROthiazide (HYDRODIURIL) 25 MG [...] 90 tablet 1 - miscellaneous medical supply [facility] Needs nebulizer machine for use for breathing problems for duo-nebs treatments 1 each 0 - miscellaneous medical supply [facility] Needs mask, tubing and filter for nebulizer machine to be changed every 3 months. 1 each 3 - miscellaneous medical supply [facility] Requests incontinence pads, 2 per day 100 each 6 - naloxone 2 mg/actuation Sproul, Non-Aerosol 2 mg by Nasal route as [...] by: Isaías Cardenas MD, 11/04/2022 2:16 PM [facility] CHIEF COMPLAINT Neck Pain [...] 2 bottles per day. Patient requests strawberry. 06683 mL 3 - hydroCHLOROthiazide (HYDRODIURIL) 25 MG [...] 90 tablet 1 - miscellaneous medical supply [facility] Needs nebulizer machine for use for breathing problems for duo-nebs treatments 1 each 0 - miscellaneous medical supply [facility] Needs mask, tubing and filter for nebulizer machine to be changed every 3 months. 1 each 3 - miscellaneous medical supply [facility] Requests incontinence pads, 2 per day 100 each 6 - naloxone 2 mg/actuation [place]oul, Non-Aerosol 2 mg by Nasal route as [...] by: Isaías Cardenas MD, 11/04/2022 2:16 PM ISAÍAS CARDENAS [facility] 2022-10-05 09:40:00 [facility] CHIEF COMPLAINT No chief [...] 2 bottles per day. Patient requests strawberry. 38745 mL 3 - hydroCHLOROthiazide (HYDRODIURIL) 25 MG [...] 90 tablet 1 - miscellaneous medical supply [facility] Needs nebulizer machine for use for breathing problems for duo-nebs treatments 1 each 0 - miscellaneous medical supply [facility] Needs mask, tubing and filter for nebulizer machine to be changed every 3 months. 1 each 3 - miscellaneous medical supply [facility] Requests incontinence pads, 2 per day 100 each 6 - naloxone 2 mg/actuation [place]oul, Non-Aerosol 2 mg by Nasal route as [...] by: Isaías Cardenas MD, 10/05/2022 10:14 AM [facility] CHIEF COMPLAINT No chief [...] 2 bottles per day. Patient requests strawberry. 90925 mL 3 - hydroCHLOROthiazide (HYDRODIURIL) 25 MG [...] 90 tablet 1 - miscellaneous medical supply [facility] Needs nebulizer machine for use for breathing problems for duo-nebs treatments 1 each 0 - miscellaneous medical supply [facility] Needs mask, tubing and filter for nebulizer machine to be changed every 3 months. 1 each 3 - miscellaneous medical supply [facility] Requests incontinence pads, 2 per day 100 each 6 - naloxone 2 mg/actuation Sproul, Non-Aerosol 2 mg by Nasal route as [...] 10:14 AM ISAÍAS CARDENAS [facility] 2022-09-14 09:00:00 Patient Ibis anderson s consent to Mike [...] . MIKE ANN JR, CHI 2022-09-09 09:40:00 [facility] CHIEF COMPLAINT No chief [...] Lumbar Epidural Steroid Injection L3 - L4 6/4/21 ROS Constitutional: denies dizziness, sedation, or somnolence [...] 2 bottles per day. Patient requests strawberry. 87076 mL 3 - hydroCHLOROthiazide (HYDRODIURIL) 25 MG [...] 30 tablet 1 - miscellaneous medical supply Misc Needs nebulizer machine for use for breathing problems for duo-nebs treatments 1 each 0 - miscellaneous medical supply [facility] Needs mask, tubing and filter for nebulizer machine to be changed every 3 months. 1 each 3 - miscellaneous medical supply [facility] Requests incontinence pads, 2 per day 100 each 6 - naloxone 2 mg/actuation Sproul, Non-Aerosol 2 mg by Nasal route as [...] by: Isaías Cardenas MD, 09/09/2022 10:03 AM [facility] CHIEF COMPLAINT No chief [...] 2 bottles per day. Patient requests strawberry. 28649 mL 3 - hydroCHLOROthiazide (HYDRODIURIL) 25 MG [...] 30 tablet 1 - miscellaneous medical supply [facility] Needs nebulizer machine for use for breathing problems for duo-nebs treatments 1 each 0 - miscellaneous medical supply [facility] Needs mask, tubing and filter for nebulizer machine to be changed every 3 months. 1 each 3 - miscellaneous medical supply [facility] Requests incontinence pads, 2 per day 100 each 6 - naloxone 2 mg/actuation Sproul, Non-Aerosol 2 mg by Nasal route as [...] Cardenas MD, 09/09/2022 10:03 AM ISAÍAS CARDENAS [facility] 2022-08-19 09:15:00 Subjective: Ibis Tay presents to [...] 6. Follow up: as needed JURGEN JOHNSON [facility] 2022-08-12 09:00:00 [facility] CHIEF COMPLAINT No chief complaint on file. SUBJECTIVE Ibis Tay is a 67 y.o. female who presents for follow-up of No chief complaint on file. with diagnosis of: 1. Problem List Items Addressed This Visit Cervical radiculopathy Failed back syndrome - Primary Lumbar spondylosis Patient underwent LESI on 12-19-20e notes 50% [...] 2 bottles per day. Patient requests strawberry. 42119 mL 3 - hydroCHLOROthiazide (HYDRODIURIL) 25 MG [...] 30 tablet 1 - miscellaneous medical supply [facility] Needs nebulizer machine for use for breathing problems for duo-nebs treatments 1 each 0 - miscellaneous medical supply [facility] Needs mask, tubing and filter for nebulizer machine to be changed every 3 months. 1 each 3 - miscellaneous medical supply [facility] Requests incontinence pads, 2 per day 100 each 6 - naloxone 2 mg/actuation Sproul, Non-Aerosol 2 mg by Nasal route as [...] by: Isaías Cardenas MD, 08/12/2022 9:08 AM [facility] CHIEF COMPLAINT No chief [...] 2 bottles per day. Patient requests strawberry. 91473 mL 3 - hydroCHLOROthiazide (HYDRODIURIL) 25 MG [...] 30 tablet 1 - miscellaneous medical supply [facility] Needs nebulizer machine for use for breathing problems for duo-nebs treatments 1 each 0 - miscellaneous medical supply [facility] Needs mask, tubing and filter for nebulizer machine to be changed every 3 months. 1 each 3 - miscellaneous medical supply [facility] Requests incontinence pads, 2 per day 100 each 6 - naloxone 2 mg/actuation Sproul, Non-Aerosol 2 mg by Nasal route as [...] Bard mesh (Lot HQ [id number], reference [id number]) which had previously been determined and introduced [...] 07/28/2022 7:53 PM General Surgery Resident Pager: [phone] Attending Attestation: - I reviewed operative note [...] after surgery. JONE Coreas 07/28/2022 5:55 PM [facility] ROLAND [facility] 2022-07-28 15:00:00 Surgical History and [...] of right groin pain. She presented to [facility] yesterday with complaints of right groin [...] cancer, scheduled for left upper lobectomy at [facility] with Dr. Moore - Cervical radiculopathy sees [...] - LUNG LOBECTOMY Left 10/11/2017 Upper - [place] INTRODUCTION CATHETER AORTA Right 11/03/2020 Procedure: ABDOMINAL AORTOGRAM; Surgeon: Imelda Swan MD; Location: [facility]; Service: Vascular - [place] TOTAL KNEE ARTHROPLASTY Right 05/28/2014 Procedure: REPLACEMENT TOTAL JOINT KNEE RIGHT / BETO ; Surgeon: Isaak Moncada MD; Location: [facility]; Service: Orthopedics - SPINE SURGERY lumbar [...] midlevel provider. Agree with assessment and plan [facility] dEPARTMENT eNCOUnter Pt Name: Ibis Tay [...] cancer, scheduled for left upper lobectomy at [facility] with Dr. Moore - Cervical radiculopathy sees Dr. Cardenas, gets cervical pain injections every 3 months, last done in - COPD (chronic obstructive pulmonary disease) ([facility]) - DDD (degenerative disc disease) - Depression [...] - LUNG LOBECTOMY Left 10/11/2017 Upper - [place] INTRODUCTION CATHETER AORTA Right 11/03/2020 Procedure: ABDOMINAL AORTOGRAM; Surgeon: Imelda Swan MD; Location: [facility]; Service: Vascular - [place] TOTAL KNEE ARTHROPLASTY Right 05/28/2014 Procedure: REPLACEMENT TOTAL JOINT KNEE RIGHT / BETO ; Surgeon: Isaak Moncada MD; Location: [facility] OR; Service: Orthopedics - SPINE SURGERY lumbar [...] 2 bottles per day. Patient requests strawberry. 25286 mL 3 - hydroCHLOROthiazide (HYDRODIURIL) 25 MG [...] 30 tablet 1 - miscellaneous medical supply [facility] Needs nebulizer machine for use for breathing problems for duo-nebs treatments 1 each 0 - miscellaneous medical supply [facility] Needs mask, tubing and filter for nebulizer machine to be changed every 3 months. 1 each 3 - miscellaneous medical supply [facility] Requests incontinence pads, 2 per day 100 each 6 - naloxone 2 mg/actuation Sproul, Non-Aerosol 2 mg by Nasal route as [...] this chart in the absence of a hairspring assembler. RADIOLOGY: Non-plain film images such as CT, [...] Procedure Component Value Ref Range Date/Time Urinalysis [[id number]] (Abnormal) Collected: 07/27/221954 Order Status: Completed Specimen: Urine Updated: 07/27/222017 Color, UA Yellow Yellow Appearance Clear Clear Glucose, UA Negative Negative Bilirubin, UA Small Negative Ketones, UA Negative Negative Specific [place], UA 1.030 <=1.030 Blood, UA Negative Negative pH, UA 6.0 4.5 - 8.0 Protein, UA Negative Negative Urobilinogen, UA 0.2 0.2 - 1.0 EU/dl Nitrite, UA Negative Negative Leukocyte Esterase Trace Negative CBC auto differential [[id number]] Collected: 07/27/221940 Order Status: Completed Specimen: Blood [...] 0.0 - 0.1 k/ul Comprehensive metabolic panel [[id number]] (Abnormal) Collected: 07/27/221940 Order Status: Completed Specimen: [...] Vitals: 07/27/22 2015 07/27/22 2030 07/27/22 2130 07/27/225 BP: 118/58 137/62 125/64 125/64 BP Location: [...] Mike Ann Jr., MD [address] [facility] [address] [facility] [id number] Call in 1 day DISCHARGE MEDICATIONS: Medication [...] mouth daily every night. Ensure Liqd Quantity: 22431 mL Generic drug: food supplemt, lactose-reduced Drink [...] pads, 2 per day naloxone 2 mg/actuation [place] Quantity: 4 each 2 mg by Nasal [...] Quang Grimm DO 07/30/22 0736 SHERRI FERREIRA [facility] 2022-06-29 08:50:00 [facility] CHIEF COMPLAINT No chief [...] 2 bottles per day. Patient requests strawberry. 44796 mL 3 - hydroCHLOROthiazide (HYDRODIURIL) 25 MG [...] 30 tablet 1 - miscellaneous medical supply [facility] Needs nebulizer machine for use for breathing problems for duo-nebs treatments 1 each 0 - miscellaneous medical supply [facility] Needs mask, tubing and filter for nebulizer machine to be changed every 3 months. 1 each 3 - miscellaneous medical supply [facility] Requests incontinence pads, 2 per day 100 each 6 - naloxone 2 mg/actuation Sproul, Non-Aerosol 2 mg by Nasal route as [...] by: Isaías Cardenas MD, 06/29/2022 9:26 AM [facility] CHIEF COMPLAINT No chief [...] 4 MG tablet Patient underwent LESI on 6-4-21She notes [...] 2 bottles per day. Patient requests strawberry. 02692 mL 3 - hydroCHLOROthiazide (HYDRODIURIL) 25 MG [...] 30 tablet 1 - miscellaneous medical supply [facility] Needs nebulizer machine for use for breathing problems for duo-nebs treatments 1 each 0 - miscellaneous medical supply [facility] Needs mask, tubing and filter for nebulizer machine to be changed every 3 months. 1 each 3 - miscellaneous medical supply [facility] Requests incontinence pads, 2 per day 100 each 6 - naloxone 2 mg/actuation Sproul, Non-Aerosol 2 mg by Nasal route as [...] hernia without obstruction and without gangrene, r JOSÉ LUIS Walter An is a 67 y.o. female coming in [...] 2 bottles per day. Patient requests strawberry. 07763 mL 3 - hydroCHLOROthiazide (HYDRODIURIL) 25 MG [...] 30 tablet 1 - miscellaneous medical supply [facility] Needs nebulizer machine for use for breathing problems for duo-nebs treatments 1 each 0 - miscellaneous medical supply [facility] Needs mask, tubing and filter for nebulizer machine to be changed every 3 months. 1 each 3 - miscellaneous medical supply [facility] Requests incontinence pads, 2 per day 100 each 6 - naloxone 2 mg/actuation Sproul, Non-Aerosol 2 mg by Nasal route as [...] bottles per day. Patient requests strawberry., Disp: 36751 mL, Rfl: 3 - hydroCHLOROthiazide (HYDRODIURIL) 25 [...] tablet, Rfl: 1 - miscellaneous medical supply [facility], Needs nebulizer machine for use for breathing problems for duo-nebs treatments, Disp: 1 each, Rfl: 0 - [facility], Needs mask, tubing and filter for nebulizer machine to be changed every 3 months., Disp: 1 each, Rfl: 3 - [facility], Requests incontinence pads, 2 per day, Disp: 100 each, Rfl: 6 - naloxone 2 mg/actuation Sproul, Non-Aerosol, 2 mg by Nasal route as [...] Bronchitis - Bursitis Left hip - Cancer ([facility]) left lung cancer, scheduled for left upper lobectomy at [facility] with Dr. Moore - Cervical radiculopathy sees Dr. Cardenas, gets cervical pain injections every 3 months, last done in - COPD (chronic obstructive pulmonary disease) ([facility]) - DDD (degenerative disc disease) - Depression [...] Palpitations with anxiety - Peripheral vascular disease ([facility]) 10/2020 abdominal pain-stricture liliac artery - Pneumonia [...] - LUNG LOBECTOMY Left 10/11/2017 Upper - [place] INTRODUCTION CATHETER AORTA Right 11/03/2020 Procedure: ABDOMINAL AORTOGRAM; Surgeon: Imelda Swan MD; Location: [facility]; Service: Vascular - [place] TOTAL KNEE ARTHROPLASTY Right 05/28/2014 Procedure: REPLACEMENT TOTAL JOINT KNEE RIGHT / BETO ; Surgeon: Isaak Moncada MD; Location: [facility]; Service: Orthopedics - SPINE SURGERY lumbar [...] robotic right femoral/inguinal hernia repair with mesh [facility]) - will need PCP clearance Follow-Up: Patient [...] Johnson APRN, 06/24/2022 3:08 PM JURGEN JOHNSON [facility] 2022-06-01 08:20:00 [facility] CHIEF COMPLAINT No chief [...] 2 bottles per day. Patient requests strawberry. 08566 mL 3 - hydroCHLOROthiazide (HYDRODIURIL) 25 MG [...] 30 tablet 1 - miscellaneous medical supply [facility] Needs nebulizer machine for use for breathing problems for duo-nebs treatments 1 each 0 - miscellaneous medical supply [facility] Needs mask, tubing and filter for nebulizer machine to be changed every 3 months. 1 each 3 - miscellaneous medical supply [facility] Requests incontinence pads, 2 per day 100 each 6 - naloxone 2 mg/actuation Sproul, Non-Aerosol 2 mg by Nasal route as [...] by: Isaías Cardenas MD, 06/01/2022 8:40 AM [facility] CHIEF COMPLAINT No chief [...] 2 bottles per day. Patient requests strawberry. 50357 mL 3 - hydroCHLOROthiazide (HYDRODIURIL) 25 MG [...] 30 tablet 1 - miscellaneous medical supply [facility] Needs nebulizer machine for use for breathing problems for duo-nebs treatments 1 each 0 - miscellaneous medical supply [facility] Needs mask, tubing and filter for nebulizer machine to be changed every 3 months. 1 each 3 - miscellaneous medical supply [facility] Requests incontinence pads, 2 per day 100 each 6 - naloxone 2 mg/actuation [place]oul, Non-Aerosol 2 mg by Nasal route as [...] during the visit. . MIKE ANN JR [facility] 2022-05-14 08:15:00 Operative Note Ibis Tay Primary Care Physician: Mike Ann Jr, MD : 1955 Age: 67 y.o. Procedure Information Date of Procedure: May 14, 2022 Site of Service: [facility] Pre-operative Diagnosis: OSTEOARTHRITIS right KNEE Post-operative Diagnosis: SAME Procedure: right Genicular Nerve (SUPMED, SUPLAT, and INFMED branches) RADIOFREQUENCY ABLATION / (CPT 19306 ,RT) Surgeon: Isaías Cardenas MD Chair Car Driver(s): NONE Anesthesia:LOCAL Estimated Blood Loss: MINIMAL FINDINGS: [...] was conducted at 80degC for 60 sec. [place] were withdrawn 5mm with placement of the needle tip at the mid-shaft line and repeat lesioning was conducted at 80degC for another 60sec. A solution of 3ml 0.25% bupivacaine and 10mg dexamethasone was created and a 1ml aliqout was injected through each needle after negative aspiration. Patient tolerated procedure well without apparent complication. Signed: Isaías Cardenas MD May 14, 2022 ISAÍAS CARDENAS [facility] 2022-05-03 15:40:00 [facility] CHIEF COMPLAINT No chief [...] 2 bottles per day. Patient requests strawberry. 72379 mL 3 - hydroCHLOROthiazide (HYDRODIURIL) 25 MG [...] 30 tablet 1 - miscellaneous medical supply [facility] Needs nebulizer machine for use for breathing problems for duo-nebs treatments 1 each 0 - miscellaneous medical supply [facility] Needs mask, tubing and filter for nebulizer machine to be changed every 3 months. 1 each 3 - miscellaneous medical supply [facility] Requests incontinence pads, 2 per day 100 each 6 - naloxone 2 mg/actuation [place], Non-Aerosol 2 mg by Nasal route as [...] by: Isaías Cardenas MD, 06/15/2022 8:52 AM [facility] CHIEF COMPLAINT No chief [...] 2 bottles per day. Patient requests strawberry. 91114 mL 3 - hydroCHLOROthiazide (HYDRODIURIL) 25 MG [...] 30 tablet 1 - miscellaneous medical supply [facility] Needs nebulizer machine for use for breathing problems for duo-nebs treatments 1 each 0 - miscellaneous medical supply [facility] Needs mask, tubing and filter for nebulizer machine to be changed every 3 months. 1 each 3 - miscellaneous medical supply [facility] Requests incontinence pads, 2 per day 100 each 6 - naloxone 2 mg/actuation Sproul, Non-Aerosol 2 mg by Nasal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 Ann Jr., [...] an increased appetite. Her exercise level is [id number] due to the chronic pain in her [...] removed. The patient has not seen a traffic officer for further evaluation. She denies fever or chills. The patient has a history of seasonal allergies. She reports rhinorrhea, sneezing, itchy eyes, and periorbital edema. She does not take any antihistamine. The patient has benefited from Kenalog injections in the past and the last shot was administered on 12/22/2018. She requests to receive another Kenalog shot today. The patient has not seen an chemical research technician for further evaluation of her chronic condition. [...] Cervical radiculopathy 11/27/2020 - Stricture of artery ([facility]) 10/24/2020 - Major depressive disorder, recurrent episode, moderate ([facility]) 09/16/2020 - Vascular disease, peripheral ([facility]) 09/16/2020 - Secondary malignant neoplasm of other specified sites ([facility]) 09/16/2020 - Compression fracture of body of thoracic vertebra ([facility]) 05/21/2018 - Non-small cell carcinoma of lung ([facility]) 05/21/2018 - Right hand pain - Urinary tract infection without hematuria 11/18/2017 - Fall at home, sequela 11/18/2017 - Acute cystitis without hematuria 11/02/2017 - Malignant neoplasm of upper lobe, left bronchus or lung ([facility]) 10/11/2017 - Lung cancer ([facility]) 08/30/2017 - Mediastinal lymphadenopathy 08/30/2017 - Adenocarcinoma of lung, left ([facility]) - Other chest pain 07/06/2017 - Pulmonary nodule 07/06/2017 - Severe sepsis ([facility]) - Pneumonia of left lower lobe due to infectious organism 07/01/2017 - Community acquired pneumonia 06/03/2017 - COPD exacerbation ([facility]) 06/03/2017 - Hypoxia 06/03/2017 - Dyslipidemia 04/15/2017 - Vitamin D deficiency 02/08/2017 - Anxiety state 01/30/2015 - Pain in joint, lower leg 01/30/2015 - Routine general medical examination at a health care facility 01/30/2015 - Osteoarthritis of knee 01/30/2015 - S/P total knee arthroplasty 01/07/2015 - S/P hip hemiarthroplasty- Left 01/07/2015 - Depression 11/19/2014 - Hip fracture, left ([facility]) 09/26/2014 - Knee osteoarthritis 05/28/2014 - Knee [...] Bronchitis - Bursitis Left hip - Cancer ([facility]) left lung cancer, scheduled for left upper lobectomy at [facility] with Dr. Moore - Cervical radiculopathy sees Dr. Cardenas, gets cervical pain injections every 3 months, last done in - COPD (chronic obstructive pulmonary disease) ([facility]) - DDD (degenerative disc disease) - Depression [...] - LUNG LOBECTOMY Left 10/11/2017 Upper - [place] INTRODUCTION CATHETER AORTA Right 11/03/2020 Procedure: ABDOMINAL AORTOGRAM; Surgeon: Imelda Swan MD; Location: [facility]; Service: Vascular - [place] TOTAL KNEE ARTHROPLASTY Right 05/28/2014 Procedure: REPLACEMENT TOTAL JOINT KNEE RIGHT / BETO ; Surgeon: Isaak Moncada MD; Location: [facility]; Service: Orthopedics - SPINE SURGERY lumbar [...] file Gets together: Not on file Attends scientologist service: Not on file Active member of [...] No Hearing Aids: No Dentures: Yes Lifestyle Rastafari Affiliation: Jainism Spirituality: yes Exercise: Other Diet: Other Care [...] given if needed 5-10 Year Screening Plan [place] Score =The CVD Risk score (D'Agostino, et al., 2008) failed to calculate for the following reasons: The patient has a prior OR, stroke, CHF, or peripheral vascular disease diagnosis [...] the visit. . MIKE ANN JR, [facility]I 2020-12-25 14:10:00 [facility] CHIEF COMPLAINT No chief [...] 2 bottles per day. Patient requests strawberry. 53980 mL PRN - hydroCHLOROthiazide (HYDRODIURIL) 25 MG [...] 30 tablet 0 - naloxone 2 mg/actuation Sproul, Non-Aerosol 2 mg by Nasal route as [...] Procedure: December 19, 2020 Site of Service: [facility] Pre-operative Diagnosis: Lumbar Radiculopathy Post-operative Diagnosis: SAME Procedure: Interlaminar Lumbar Epidural Steroid Injection L3-4 Surgeon: Isaías Cardenas MD Chair Car Driver(s): NONE Anesthesia:LOCAL Estimated Blood Loss: MINIMAL FINDINGS: [...] 4:12 PM ISAÍAS CARDENAS [facility] 2020-11-27 14:00:00 [facility] CHIEF COMPLAINT Back Pain [...] Peripheral Vascular disease Patient last seen at [facility] on 10-30-20 and continued on percocet 10/325 [...] 2 bottles per day. Patient requests strawberry. 24281 mL PRN - hydroCHLOROthiazide (HYDRODIURIL) 25 MG [...] 30 tablet 0 - naloxone 2 mg/actuation Sproul, Non-Aerosol 2 mg by Nasal route as [...] tablets PLAN: PAtient was last seen at [facility], and we had deferred proceeding with LESI [...] Bronchitis - Bursitis Left hip - Cancer ([facility]) left lung cancer, scheduled for left upper lobectomy at [facility] with Dr. Moore - Cervical radiculopathy sees Dr. Cardenas, gets cervical pain injections every 3 months, last done in - COPD (chronic obstructive pulmonary disease) ([facility]) - DDD (degenerative disc disease) - Depression [...] - LUNG LOBECTOMY Left 10/11/2017 Upper - [place] TOTAL KNEE ARTHROPLASTY Right 05/28/2014 Procedure: REPLACEMENT TOTAL JOINT KNEE RIGHT / BETO ; Surgeon: Isaak Moncada MD; Location: [facility]; Service: Orthopedics - SPINE SURGERY lumbar [...] file Gets together: Not on file Attends scientologist service: Not on file Active member of [...] Mike Ann Jr., MD naloxone 2 mg/actuation Sproul, Non-Aerosol 2 mg by Nasal route as [...] MD [address] [place] [address] [facility] [address] Imelda Swan MD [address] [place] [address] [facility] [id number] Follow-up in 2 days as scheduled MDM Priyanka Lin MD 10/19/20 2215 PRIYANKA LIN [facility] 2020-10-15 16:42:45 Attestation signed by Moe Vargas [...] cancer, scheduled for left upper lobectomy at [facility] with Dr. Moore - Cervical radiculopathy sees [...] - LUNG LOBECTOMY Left 10/11/2017 Upper - [place] TOTAL KNEE ARTHROPLASTY Right 05/28/2014 Procedure: REPLACEMENT TOTAL JOINT KNEE RIGHT / BETO ; Surgeon: Isaak Moncada MD; Location: [facility]; Service: Orthopedics - SPINE SURGERY lumbar [...] Mike Ann Jr., MD naloxone 2 mg/actuation Sproul, Non-Aerosol 2 mg by Nasal route as [...] on phone: None Gets together: None Attends scientologist service: None Active member of club or [...] Value Ref Range Date/Time Lactic acid, venous [[id number]] Collected: 10/15/201639 Order Status: Completed Specimen: Blood Updated: 10/15/205 Lactic Acid 1.4 0.4 - 2.0 mmol/L Blood culture x2 - now, then in 15 minutes [[id number]] Collected: 10/15/201639 Order Status: Sent Specimen: Blood Updated: 10/15/207 Blood culture x2 - now, then in 15 minutes [[id number]] Collected: 10/15/201639 Order Status: Sent Specimen: Blood Updated: 10/15/208 Protime-INR - STAT [[id number]] Collected: 10/15/201639 Order Status: Completed Specimen: Blood Updated: 10/15/20 1732 Protime 11.6 9.6 - 11.9 sec INR 1.1 0.9 - 1.1 Activated partial thromboplastin time [[id number]] Collected: 10/15/201639 Order Status: Completed Specimen: Blood Updated: 10/15/20 1732 aPTT 27.4 22.8 - 33.9 sec Comprehensive metabolic panel [[id number]] (Abnormal) Collected: 10/15/20 1608 Order Status: Completed [...] 77 >=90 mL/min/1.73 m2 CBC auto differential [[id number]] (Abnormal) Collected: 10/15/20 160 Order Status: Completed [...] Absolute 0.0 0.0 - 0.1 k/ul LIPASE [[id number]] Collected: 10/15/20 1608 Order Status: Completed Specimen: [...] PATIENT REFERRED TO Imelda Swan MD [address] [facility] [address] [place] [address] Tuesday in clinic, call for appointment time. Mike Ann Jr., MD [address] [place] [address] [place] [address] In 2 to 3 days if vomiting and diarrhea are not improving, sooner if worse. Zofran as needed for nausea, vomiting. Increase clear liquids, Gatorade, popsicles, Jell-O. Return if worse DISPOSITION Discharge [1] 10/15/2020 6:22 PM DISMISSAL INSTRUCTIONS Contact information for follow-up Imelda Swan MD Specialty: Vascular Surgery [address] [facility] [address] [facility] [address] Next Steps: Follow up Instructions: Tuesday in clinic, call for appointment time. Mike Ann Jr, MD Specialty: Family Medicine Relationship: [facility] [address] [facility] [address] [place] [address] Next Steps: Follow up Instructions: In 2 to 3 days if vomiting and diarrhea are not improving, sooner if worse. Zofran as needed for nausea, vomiting. Increase clear liquids, Gatorade, popsicles, Jell-O. Return if worse DIAGNOSIS: 1. Abdominal pain, vomiting, and diarrhea 2. Hypokalemia 3. Chronic, continuous use of opioids 4. Iliac artery occlusion, bilateral (HCC) *This note was compiled in part using [employer] voice recognition technology. The note may contain typographical, grammatical, and voice recognition errors* NATANAEL Kaiser 10/15/202001 Moe Vargas DO 10/19/20 1449 ZAKIA MCCOY [facility] 2020-09-16 15:30:00 Subjective: Patient ID: Ibis Tay [...] after she received her COVID vaccination on Tuesday, September 06. Patient states no significant difficulty [...] cancer, scheduled for left upper lobectomy at [facility] with Dr. Moore - Cervical radiculopathy sees Dr. Cardenas, gets cervical pain injections every 3 months, last done in - COPD (chronic obstructive pulmonary disease) ([facility]) - DDD (degenerative disc disease) - Depression [...] - LUNG LOBECTOMY Left 10/11/2017 Upper - [place] TOTAL KNEE ARTHROPLASTY Right 05/28/2014 Procedure: REPLACEMENT TOTAL JOINT KNEE RIGHT / BETO ; Surgeon: Isaak Moncada MD; Location: [facility] OR; Service: Orthopedics - SPINE SURGERY lumbar [...] bottles per day. Patient requests strawberry., Disp: 86019 mL, Rfl: PRN - hydroCHLOROthiazide (HYDRODIURIL) 25 [...] tablet, Rfl: 0 - naloxone 2 mg/actuation Sproul, Non-Aerosol, 2 mg by Nasal route as [...] file Gets together: Not on file Attends scientologist service: Not on file Active member of [...] Ann Jr., MD [address] [facility] [address] [facility] [phone] Follow up with pcp for recheck in 2-3 days DISCHARGE MEDICATIONS: Discharge Medication List as of 09/11/2020 12:51 PM START taking these medications Details azithromycin (ZITHROMAX) 250 MG tablet Take 1 tablet (250 mg total) by mouth once daily. Take 2 tablets (500mg) by mouth on day one, then 1 tablet (250mg) by mouth daily on days 2 through 5., Starting [facility] 09/11/2020, Print predniSONE (DELTASONE) 20 MG tablet Take 2 tablets (40 mg total) by mouth once daily for 5 days., Starting [facility] 09/11/2020, Until Tue09/16/2020, Print DIAGNOSIS: Problem List Items Addressed This Visit None Visit Diagnoses Viral upper respiratory tract infection - Primary *This note was compiled in part using [employer] voice recognition technology. The note may contain topographical, grammatical, and voice recognition errors* Kusum Mckeon, COMMUNICATIONS CONSULTANT 09/11/20 1806 Bess Copeland, DO 09/12/20 0709 KUSUM MCKEON [facility] 2020-08-25 13:00:00 INITIAL EVALUATION Physical Therapy [facility] [address] [facility] [address] Dept: [phone] Dept PATIENT INFORMATION Patient Name ARNIE HARDYN Ibis Tay 1955 [id number] Date of Service: 08/25/2020 Start of Care Date: 08/25/2020 Onset Date: July 19, 2020 Referring Physician: Isaías Cardenas MD Primary Insurance: Payor: [employer] MEDICARE / Plan: [facility] DUAL COMPLETE / Product Type: *No Product type* / [id number] Certification Dates: August 25, 2020 to October [...] all been reviewed and are contained in [facility] EMR. Medications: Current Outpatient Medications on File [...] 2 bottles per day. Patient requests strawberry. 46368 mL PRN - hydroCHLOROthiazide (HYDRODIURIL) 25 MG [...] 30 tablet 0 - naloxone 2 mg/actuation Sproul, Non-Aerosol 2 mg by Nasal route as [...] include: Patient/Caregiver Education, PT Evaluation: low complexity (19275), PT Re-Evaluation (42961), Therapeutic Activity (04348), Therapeutic Exercise (07618), Electrical Stimulation Unattended (37263), Manual Therapy (04497) and Neuromuscular Re-Ed (46038) Thank you for this referral of Ibis Tay to [facility]. Please call me if you have any questions or concerns. Sincerely, Isaak Wood, PT Physician Signature: By signing, I agree with the above findings and plan of care for the treatment of this condition. Physician Signature: NPI: Date: . Please sign and return to above fax number. CONTACT INFORMATION [facility] Health Rehabilitation Services [facility] PHYSICAL [facility]AP[facility] [address] [facility] [address] Dept: [phone] Dept Electronically signed: 08/25/2020 1:26 PM ISAAK WOOD [facility] 2020-07-31 10:46:00 Ibis aTy 1955 Referral type: Pharmacist BP Readings from [...] 2 bottles per day. Patient requests strawberry. 26691 mL PRN - hydroCHLOROthiazide (HYDRODIURIL) 25 MG [...] 90 tablet 3 - naloxone 2 mg/actuation Sproul, Non-Aerosol 2 mg by Nasal route as [...] a 65-year-old white female who is at [facility] [address] at approximately 3 and [...] The patient was seen by the physician lease out worker and I agree with their plan. I did not physically see or examine this patient [facility] eMERGENCY dEPARTMENT eNCOUnter Pt Name: Ibis Tay Birthdate 1955 Date of evaluation: 07/19/2020 Provider: Liz Elmore APRN CHIEF COMPLAINT Chief Complaint Patient presents with - Fall GLF at [facility], side pain (wrist, hip thigh ankle) HISTORY OF PRESENT ILLNESS (Location/Symptom, Timing/Onset, Context/Setting, Quality, Duration, Modifying Factors, Severity.) Ibis Tay is a 65 y.o. female who presents to the emergency department for a ground-level fall that occurred at [facility] just prior to arrival. The patient states [...] cancer, scheduled for left upper lobectomy at [facility] with Dr. Moore - Cervical radiculopathy sees Dr. Cardenas, gets cervical pain injections every 3 months, last done in - COPD (chronic obstructive pulmonary disease) ([facility]) - DDD (degenerative disc disease) - Depression [...] - LUNG LOBECTOMY Left 10/11/2017 Upper - VT TOTAL KNEE ARTHROPLASTY Right 05/28/2014 Procedure: REPLACEMENT TOTAL JOINT KNEE RIGHT / BETO ; Surgeon: Isaak Moncada MD; Location: [facility] OR; Service: Orthopedics - SPINE SURGERY lumbar [...] 2 bottles per day. Patient requests strawberry. 69379 mL PRN - hydroCHLOROthiazide (HYDRODIURIL) 25 MG [...] 45 tablet 3 - naloxone 2 mg/actuation Sproul, Non-Aerosol 2 mg by Nasal route as [...] 5) Vitals: 07/19/20 1646 07/19/20 1930 07/19/20 194 BP: 155/83 170/83 170/79 BP Location: Right [...] this chart in the absence of a hairspring assembler. RADIOLOGY: Non-plain film images such as CT, [...] Oral Oral SpO2: 97% 98% 98% Ibis Carsonon was seen and evaluated in the emergency [...] REFERRED TO: Mike Ann Jr., MD [address] [phone] Schedule an appointment as soon as possible [...] A DAY food supplemt, lactose-reduced Liqd Quantity: 94399 mL Commonly known as: Ensure Drink 2 [...] by mouth once daily. naloxone 2 mg/actuation [place] Quantity: 4 each 2 mg by Nasal [...] mis-transcribed.) MITALI Sargent APRN 07/19/20 [address] MD 07/20/20 1339 LIZ ELMORE [facility] 2020-05-01 16:00:00 Patient not seen tod ay, but encounter created to place order for cologuard. LUCILLE NEVAREZ [facility] 2020-02-03 13:53:00 Patient notified of negative COVID-19 [...] her who was recently hospitalized in a retirement for rehab several months ago. REVIEW OF [...] Bronchitis - Bursitis Left hip - Cancer ([facility]) 12 left lung cancer, scheduled for left upper lobectomy at [facility] with Dr. Moore - Cervical radiculopathy sees Dr. Cardenas, gets cervical pain injections every 3 months, last done in - COPD (chronic obstructive pulmonary disease) ([facility]) - DDD (degenerative disc disease) - Depression [...] - LUNG LOBECTOMY Left 10/11/2017 Upper - VT TOTAL KNEE ARTHROPLASTY Right 05/28/2014 Procedure: REPLACEMENT TOTAL JOINT KNEE RIGHT / BETO ; Surgeon: Isaak Moncada MD; Location: [facility] OR; Service: Orthopedics - SPINE SURGERY lumbar [...] OTHER MEDS OR FOOD FOR ONE HOUR* 11/15/19 Mike Ann Jr., MD ALPRAZolam (XANAX) 1 [...] route 2 (two) times a day. 12/01/15 iMke Ann Jr., MD escitalopram oxalate (LEXAPRO) 20 [...] Mike Ann Jr., MD naloxone 2 mg/actuation Sproul, Non-Aerosol 2 mg by Nasal route as [...] file Gets together: Not on file Attends scientologist service: Not on file Active member of [...] Value Ref Range Date/Time Comprehensive metabolic panel [[id number]] (Abnormal) Collected: 02/03/20 1250 Order Status: Completed [...] 88 >=90 mL/min/1.73 m2 Lactic acid, venous [[id number]] Collected: 02/03/20 125 Order Status: Completed Specimen: Blood Updated: 02/03/20 1327 Lactic Acid 1.1 0.4 - 2.0 mmol/L CBC auto differential [[id number]] Collected: 02/03/20 125 Order Status: Completed Specimen: [...] 0.0 - 0.1 k/ul Protime-INR - STAT [[id number]] Collected: 02/03/20 1250 Order Status: Completed Specimen: Blood Updated: 02/03/20 1323 Protime 11.4 9.6 - 11.9 sec INR 1.1 0.9 - 1.1 Activated partial thromboplastin time [[id number]] Collected: 02/03/20 1250 Order Status: Completed Specimen: [...] Mike Ann Jr., MD [address] [facility] [address] [facility] [phone] In 1 day DISCHARGE MEDICATIONS: Medication List [...] A DAY food supplemt, lactose-reduced Liqd Quantity: 13260 mL Commonly known as: Ensure Drink 2 [...] by mouth once daily. naloxone 2 mg/actuation [place] Quantity: 4 each 2 mg by Nasal [...] *This note was compiled in part using [employer] voice recognition technology. The note may contain [...] nurse check with last blood pressure 162/82-140 8/74 in January 08, 2020. 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 Moore - Cervical radiculopathy sees Dr. Cardenas, gets cervical pain injections every 3 months, last done in - COPD (chronic obstructive pulmonary disease) ([facility]) - DDD (degenerative disc disease) - Depression [...] History: Procedure Laterality Date - ESOPHAGEAL DILATION 2013 approx. done with upper endoscopy - KNEE ARTHROPLASTY Right 2010 - LUMBAR FUSION 1995 - LUNG LOBECTOMY Left 10/11/2017 Upper - VT TOTAL KNEE ARTHROPLASTY Right 05/28/2014 Procedure: REPLACEMENT TOTAL JOINT KNEE RIGHT / BETO ; Surgeon: Isaak Moncada MD; Location: [facility] OR; Service: Orthopedics - SPINE SURGERY lumbar [...] mg, 750 mg, IntraVENous, Q24H, Kusum Mckeon, COMMUNICATIONS CONSULTANT, Stopped at 08/09/19 3993 Current Outpatient Medications: - alendronate (FOSAMAX) 70 [...] bottles per day. Patient requests strawberry., Disp: 59072 mL, Rfl: PRN - guaiFENesin 200 mg [...] capsule, Rfl: 0 - miscellaneous medical supply [facility] Use right hand thumb spica splint (Patient not taking: Reported on 07/27/2019 ), Disp: 1 each, Rfl: 0 - naloxone 2 mg/actuation Sproul, Non-Aerosol, 2 mg by Nasal route as [...] on phone: None Gets together: None Attends scientologist service: None Active member of club or [...] Range Date/Time Urinalysis with culture, if indicated [[id number]] (Abnormal) Collected: 08/09/19 1606 Order Status: Completed Specimen: Urine Updated: 08/09/19 1624 Color, UA Yellow Yellow Appearance Clear Clear Glucose, UA Negative Negative Bilirubin, UA Negative Negative Ketones, UA Negative Negative Specific [place], UA 1.010 <=1.030 Blood, UA Negative Negative pH, UA 7.5 4.5 - 8.0 Protein, UA Negative Negative Urobilinogen, UA 0.2 0.2 - 1.0 EU/dl Nitrite, UA Negative Negative Leukocyte Esterase Trace Negative RBC, UA Absent <=5 WBC, UA Absent <=5 Culture Ordered? Not Appl Blood culture x2 - now, then in 15 minutes [[id number]] Collected: 08/09/19 1500 Order Status: Sent Specimen: Blood Updated: 08/09/19 1747 Comprehensive metabolic panel [[id number]] (Abnormal) Collected: 08/09/19 1438 Order Status: Completed [...] 84 >=90 mL/min/1.73 m2 Lactic acid, venous [[id number]] Collected: 08/09/191437 Order Status: Completed Specimen: Blood Updated: 08/09/19 1537 Lactic Acid 1.5 0.4 - 2.0 mmol/L CBC auto differential [[id number]] (Abnormal) Collected: 08/09/191437 Order Status: Completed Specimen: [...] 0.0 - 0.4 k/ul Protime-INR - STAT [[id number]] Collected: 08/09/191437 Order Status: Completed Specimen: Blood Updated: 08/09/19 1531 Protime 10.7 9.6 - 11.9 sec INR 1.0 0.9 - 1.1 Activated partial thromboplastin time [[id number]] Collected: 08/09/191437 Order Status: Completed Specimen: Blood Updated: 08/09/19 1531 aPTT 27.8 22.8 - 33.9 sec Blood culture x2 - now, then in 15 minutes [[id number]] Collected: 08/09/191437 Order Status: Sent Specimen: Blood Updated: 08/09/19 1746 Troponin I [[id number]] Collected: 08/09/19 1438 Order Status: Completed Specimen: [...] TO: Mike Ann Jr., MD [address] [place] [address] [address] [facility] [address] Follow up tommorow DISCHARGE MEDICATIONS: Discharge Medication List as of 08/09/2019 5:07 PM DIAGNOSIS: Problem List Items Addressed This Visit COPD exacerbation (HCC) Relevant Medications ipratropium-albuterol (DUO-NEB) 0.5-2.5 mg/3 mL nebulizer solution 3 mL (Completed) Other Visit Diagnoses Nonintractable headache, unspecified chronicity pattern, unspecified headache type - Primary *This note was compiled in part using [employer] voice recognition technology. The note may contain topographical, grammatical, and voice recognition errors* Kusum Mckeon, COMMUNICATIONS CONSULTANT 08/09/19 1837 Quang Grimm DO 08/09/192008 KUSUM MCKEON [facility] 2019-08-07 10:15:00 Patient, Ibis antone s consent to Mike Ann Jr., MD's [...] 2 bottles per day. Patient requests strawberry. 21598 mL PRN - guaiFENesin 200 mg tablet [...] 1 each 0 - naloxone 2 mg/actuation Sproul, Non-Aerosol 2 mg by Nasal route as [...] with patient that I will be leaving [facility] effective Jul. I discussed with him that I will be starting at [facility] on Aug. As an alternative I recommended he may follow with Dr. Sood who is my partner in [facility] at [place]. Patient notes that they would like to continue care with me at [facility]. To facilitate this I will provide 2 serial prescription and asked the patient to reach out to [facility] to verify insurance coverage and schedule a follow-up appointment with me at [facility]. He will run out of medications on Aug and will need a [facility] f/u appt prior to that date. However [...] Isaías Cardenas, 08/02/2019 5:45 PM ISAÍAS CARDENAS [facility] 2019-07-27 16:43:02 Patient Name: Ibis Tay Date [...] cancer, scheduled for left upper lobectomy at [facility] with Dr. Moore - Cervical radiculopathy sees Dr. Cardenas, gets cervical pain injections every 3 months, last done in - COPD (chronic obstructive pulmonary disease) ([facility]) - DDD (degenerative disc disease) - Depression [...] 03/05/2014 Performed by David Sanchez MD at [facility] GI - ESOPHAGEAL DILATION 2012 approx. done with upper endoscopy - KNEE ARTHROPLASTY Right 2010 - LEFT HIP KRISTAL-ARTHROPLASTY Left 09/27/2014 Performed by Isaak Moncada MD at [facility] OR - LEFT UPPER LOBECTOMY / LYMPH NODE DISSECTION Left 10/11/2017 Performed by Angy Moore MD at [facility] CVOR - LUMBAR FUSION 1995 - LUNG LOBECTOMY Left 10/11/2017 Upper - REPAIR / CONSTRUCTION RIGHT THUMB ULNAR COLATERAL LIGAMENT Right 04/05/2018 Performed by Amina Bowman MD at [facility] OR - REPLACEMENT TOTAL JOINT KNEE RIGHT / BETO Right 05/28/2014 Performed by Isaak Moncada MD at [facility] OR - SPINE SURGERY lumbar fusion - [...] file Gets together: Not on file Attends scientologist service: Not on file Active member of [...] capsule TAKE ONE CAPSULE BY MOUTH DAILY 12/30/19 Yes Mike Ann Jr., MD diaper,brief,adult,disposable Misc [...] Mike Ann Jr., MD naloxone 2 mg/actuation Sproul, Non-Aerosol 2 mg by Nasal route as [...] (two) times a day. MISCELLANEOUS MEDICAL SUPPLY [facility] Use right hand thumb spica splint NALOXONE [...] Jim Scott MD 07/27/19 1847 JIM SCOTT [facility] 2019-07-19 16:05:00 ED follow up phone c [...] his recommendation on the antibiotic. FAITH SANTANA [facility] 2019-07-13 13:46:46 [facility] EMERGENCY DEPARTMENT Pt Name: Ibis Tay Birthdate [...] cancer, scheduled for left upper lobectomy at [facility] with Dr. Moore - Cervical radiculopathy sees Dr. Cardenas, gets cervical pain injections every 3 months, last done in - COPD (chronic obstructive pulmonary disease) ([facility]) - DDD (degenerative disc disease) - Depression [...] 03/05/2014 Performed by David Sanchez MD at [facility] GI - ESOPHAGEAL DILATION 2012 approx. done with upper endoscopy - KNEE ARTHROPLASTY Right 2010 - LEFT HIP KRISTAL-ARTHROPLASTY Left 09/27/2014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 min General OT Received On 10/17/17 Therapy Discipline/Visit # OT 1 Visit Type Initial Eval Functional Status Prior to Onset Indep with ADLs and gait. Wears 2LO2. Family/Caregiver/Tube Room Supervisor Present No Precautions Fall Risk Yes Home [...] Needs reinforcement Hanna Ngo OT Phone # [phone] HANNA NGO GLORIA 2017-10-17 09:34:42 Patient: Ibis hook : 1955 [...] left bronchus or lung (HCC) RENEE DIAZ [facility] 2017-10-16 10:42:27 Patient: Ibis hook : 1955 [...] months. Labs: Na+=132, K+=4.2, Cl-=101, BUN=6, Cr=0.74, Invk=555, Ca+=7.6 Medications: Vitamin D3, Remeron, Protonix, KCL, [...] 2-[address], LMNT, LD, [facility] Spectralink [phone] RD all page [phone] x [phone]. SRIRAM CONCEPCION [facility]I 2017-10-15 09:02:38 Patient: Ibis hook : [...] Resp: 21 BP: 131/45 Arterial Line BP: Intake/Output last 3 shifts: I/O last 3 [...] with KCl 20 mEq/L 100 mL/hr (10/12/17 3255) - fentaNYL 2 mcg/mL-ropivacaine 0.2% in 0.9% [...] of upper lobe, left bronchus or lung DIAZRENEE RIGGS GLORIA 2017-10-12 09:30:00 Philippe Carr COMMUNICATIONS CONSULTANT and Jannette amandagenia Diaz COMMUNICATIONS CONSULTANT notified that pt's BP 70's/30's-40's. Orders received to cut Epidural rate in half-turned down from 8ml to 4ml/hr continuous. Continue to monitor. KRISHNA CHUN [facility] 2017-10-11 18:22:25 Respiratory Therapy Consult Assessment Primary [...] duoneb, encourage IS, monitor CO2 ABEL EDDY [facility] 2017-10-11 12:16:00 H&P Completed on 09/28/2017 by Angy Moore MD The H&P was reviewed, verified, accepted, and authenticated. The patient was examined and no change has occurred in the patient's condition since the H&P was done. The operative procedure will take plan as planned. Electronically signed by: Angy Moore, 10/11/2017 12:16 PM ANGY MOORE [facility]I 2017-10-05 11:06:59 Patient called, igorjames antoine if it is ok for her family from [place] to come with her to surgery on [...] 2 bottles per day. Patient requests strawberry. 13514 mL PRN - guaiFENesin 200 mg tablet [...] medical record. Electronically signed by: Isaías Cardenas 09/29/2017 7:59 AM ISAÍAS CARDENAS [facility]I 2017-09-23 [...] Moore will be on 09/28/17. Address on [facility] provided. Patient denied any other needs at this time. I encouraged her to call with any other questions/concerns. BETHELCarlosNU CHI 2017-09-08 16:18:58 Cancelled patient's smoking cessation [...] her PFT's and appointment to follow at [facility], and her HOC appointment. Patient denied any [...] with HOC. left requesting a call back. NU ROSS [facility]I 2017-08-30 13:13:36 H&P Update Ibis Tay Primary Care Physician: Mike Ann Jr, MD : 1955 Age: 62 y.o. Date of Service: 08/30/17 Diagnosis: Adenocarcinoma Update 1. The H&P was completed on 08/26/[address] Fonseca. 2. The H&P was reviewed. 3. Ibis Tay was examined and no change has occurred in the their condition since the H&P was completed. Thomas Villagran Pulmonary/Critical Care Fellow Pager: [phone] Attending NABOR Garcia [facility] 2017-08-26 14:30:00 [facility] Pulmonary Medici ne Outpatient Follow-up Patient: Ibis [...] 2 bottles per day. Patient requests strawberry. 50135 mL PRN - hydroCHLOROthiazide (HYDRODIURIL) 25 MG [...] service JESSICA PECK APRN 08/26/2017 JESSICA PECK APRN-[facility] Pulmonary/Critical Care/Sleep Medicine Office: [phone] 08/26/2017 3:28 PM Pulmonary Staff: I personally [...] all questions were answered. Benson Fonseca MD [facility] Division of Pulmonary, Critical Care, and Sleep Medicine [facility] [phone] 08/30/2017 BENSON FONSECA [facility] 2017-08-26 09:37:19 [facility] called concrete saw operator ONN. I explained to her that she [...] any otherneeds at this time. NU ROSS [facility] 2017-08-26 08:33:58 Notified Nu kebede pt's ONN, regarding this ONN's concrete saw operator conversation with pt last night. KAYLAN YADAV [facility] 2017-08-25 23:59:59 Late Entry from : Received message concrete saw operator phone from pt after hours for BEATRICE Garcia. Per message, pt has some questions about tomorrow when she goes to [facility]. Returned phone call to pt. Pt has appt tomorrow at 2:[address] Fonseca. Told pt that he's a lung doctor. Pt wondering what will occur tomorrow at appt because she has a friend giving her a ride. This ONN will have BEATRICE Judge call her first thing tomorrow about that. KAYLAN YADAV [facility] 2017-08-24 23:59:59 I met with patient, Jordan and her sister in medical oncology consultation. I introduced myself and explained my role as the oncology nurse navigator. I provided her with a brochure and my contact information. Patient has an appointment to see Dr Fonseca at [facility] 08/26/17 at 1430. I will watch for [...] patient's condition since the H&P was done. CROW MORGANY GLORIA 2017-08-12 15:49:05 Pt was in the [...] 2 bottles per day. Patient [place] strawberry. 40261 mL PRN - hydroCHLOROthiazide (HYDRODIURIL) 25 MG [...] - Community acquired pneumonia - COPD exacerbation ([facility]) - Hypoxia - Pneumonia of left lower lobe due to infectious organism - Severe sepsis ([facility]) - Other chest pain - Pulmonary nodule [...] ESOPHAGEAL DILATION - LUMBAR FUSION 1995 - [place] TOTAL KNEE ARTHROPLASTY Right 05/28/2014 Procedure: REPLACEMENT TOTAL JOINT KNEE RIGHT / BETO ; Surgeon: Isaak Moncada MD; Location: [facility]; Service: Orthopedics - TENDON RELEASE Right arm [...] considered impaired fasting Glucose (Pre-Diabetic) by the [place] [employer]. Fasting Glucose > 125 mg/dl [...] considered impaired fasting Glucose (Pre-Diabetic) by the [place] [employer]. Fasting Glucose > 125 mg/dl [...] considered impaired fasting Glucose (Pre-Diabetic) by the [place] [employer]. Fasting Glucose > 125 mg/dl [...] considered impaired fasting Glucose (Pre-Diabetic) by the [place] [employer]. Fasting Glucose > 125 mg/dl [...] considered impaired fasting Glucose (Pre-Diabetic) by the [place] [employer]. Fasting Glucose > 125 mg/dl [...] considered impaired fasting Glucose (Pre-Diabetic) by the [place] [employer]. Fasting Glucose > 125 mg/dl [...] considered impaired fasting Glucose (Pre-Diabetic) by the [place] [employer]. Fasting Glucose > 125 mg/dl [...] considered impaired fasting Glucose (Pre-Diabetic) by the [place] [employer]. Fasting Glucose > 125 mg/dl [...] considered impaired fasting Glucose (Pre-Diabetic) by the [place] [employer]. Fasting Glucose > 125 mg/dl [...] considered impaired fasting Glucose (Pre-Diabetic) by the [place] [employer]. Fasting Glucose > 125 mg/dl [...] considered impaired fasting Glucose (Pre-Diabetic) by the [place] [employer]. Fasting Glucose > 125 mg/dl [...] Ag, Ur 06/04/2017 Negative Final Comment: Per [facility] of Health and Human Services regulations at 173-NAC (Communicable Diseases); mandated results are reported to the [place] Department of Health and Human Services, Division of Public Health, Office of Epidemiology, [address] [place] [address]. - S. pneumoniae Antigen Urine 06/04/2017 Negative [...] UA 05/06/2017 Trace* Negative Final - Specific [place], UA 05/06/2017 1.020 <=1.030 Final - Blood, [...] was seen and evaluated by the physician lease out worker. The case was reviewed with the physician lease out worker. I agree with their physical exam, findings, [...] ESOPHAGEAL DILATION - LUMBAR FUSION 1995 - [place] TOTAL KNEE ARTHROPLASTY Right 05/28/2014 Procedure: REPLACEMENT TOTAL JOINT KNEE RIGHT / BETO ; Surgeon: Isaak Moncada MD; Location: [facility] OR; Service: Orthopedics - TENDON RELEASE Right [...] PACs per Dr. Gomez. Ventricular rate 87, VT interval 134, QRS duration 82, QT/QTC 396/470 [...] Value Ref Range Date/Time CBC auto differential [[id number]] (Abnormal) Collected: 08/06/171715 Order Status: Completed Specimen: [...] 0.0 - 0.1 k/ul Comprehensive metabolic panel [[id number]] (Abnormal) Collected: 08/06/171715 Order Status: Completed Specimen: [...] 73 (L) >=90 mL/min/1.73 m2 Troponin I [[id number]] Collected: 08/06/171715 Order Status: Completed Updated: 08/06/171744 Troponin I <0.04 <=0.04 ng/mL D-dimer, quantitative [[id number]] Collected: 08/06/171714 Order Status: Completed Specimen: Blood [...] Specialty: Family Medicine Relationship: PCP - General [facility] [address] [facility] [address] [id number] Instructions: Tuesday for recheck. Return to the ER if increase shortness of breath or pain. Prescription for Percocet, Robitussin-AC, Levaquin. DIAGNOSIS: 1. Pneumonitis Discharge [1] *This note was compiled in part using [employer] voice recognition technology. The note may contain topographical, grammatical, and voice recognition errors* TELMA Spain 08/06/172028 Antony Gomez MD 08/06/172043 [facility] 2017-08-04 12:31:08 We have the pt's ord er in [facility] for the lung biopsy however we need you to place the correct order in [facility] The correct order in [facility] is CT biopsy and once you open the order up you will pick lung If any questions call us in [facility] [phone] Thanks [facility] 2017-08-01 07:40:00 OFFICE VISIT CHIEF COMPLAINT [...] 2 bottles per day. Patient requests strawberry. 35073 mL PRN - guaiFENesin 200 mg tablet [...] 2 bottles per day. Patient requests strawberry. 20727 mL PRN - guaiFENesin 200 mg tablet [...] 2 bottles per day. Patient requests strawberry. 84200 mL PRN - guaiFENesin 200 mg tablet [...] PSYCHOTHERAPY (Updated each Encounter) Session Time Start: 140 Session Time End: 1431 Time spent doing [...] considered impaired fasting Glucose (Pre-Diabetic) by the [place] [employer]. Fasting Glucose > 125 mg/dl [...] - 78 u/l Final . JOJO FREIRE [facility] 2017-07-23 19:37:18 eMERGENCY dEPARTMENT eNCOUnter CHIEF COMPLAINT/HPI [...] ESOPHAGEAL DILATION - LUMBAR FUSION 1995 - [place] TOTAL KNEE ARTHROPLASTY Right 05/28/2014 Procedure: REPLACEMENT TOTAL JOINT KNEE RIGHT / BETO ; Surgeon: Isaak Moncada MD; Location: [facility] OR; Service: Orthopedics - TENDON RELEASE Right [...] a day. 0900 and 1500 Historical Provider, lamoTRIgine (LAMICTAL) 200 MG tablet Take 1 [...] Ref Range Date/Time GEM Blood gas arterial [[id number]] (Abnormal) Collected: 07/23/172011 Order Status: Completed Updated: [...] Test POS Influenza A and B antigens [[id number]] Collected: 07/23/172009 Order Status: Completed Specimen: Nares from Nares Updated: 07/23/172037 Influenza A Antigen Negative Negative Influenza B Antigen Negative Negative CBC auto differential [[id number]] Collected: 07/23/171904 Order Status: Completed Specimen: Blood [...] 0.0 - 0.1 k/ul Comprehensive metabolic panel [[id number]] (Abnormal) Collected: 07/23/171904 Order Status: Completed Specimen: [...] 0.0 - 1.5 mg/dl B-type natriuretic peptide [[id number]] Collected: 07/23/171904 Order Status: Completed Specimen: Blood [...] Mike Ann Jr., MD [address] [facility] [address] [facility] [id number] In 4 days Discharge [1] 07/23/2017 8:53 PM 1. COPD exacerbation (HCC) *This note was compiled in part using [employer] voice recognition technology. The note may contain topographical, grammatical, and voice recognition errors* Raad Tidwell MD 07/23/172053 [facility]
--- OUTSIDE RECORDS SUMMARY | 2024-07-26 01:43 | XMS_ITS | Continuity of Care Document ---
Author Name NwHIN User [facility] Address Unknown Organization Unknown Address Unknown Procedures FILTER APPLIED:Only known Procedures with Onset Date within the last 5 years Procedure Date Procedure Provider Additional Inform ation Status [place] UGI ENDOSCOPY DIAG W OR W/O BRUSH/WASH (98963) Completed GLUCOSE CSF (12795) Comp leted Encounters FILTER APPLIED:Only known Encounters with Admission Date within the last 5 years Encounter Location Admission Discharge Billing Code Tube Draw Helper Art lan Emergency [facility] Outpatient [facility]
[2024-07-26 01:48] LABS: Chloride* 106 mmol/L (96-114); Sodium* 141 mmol/L (135-149)
[2024-07-26 01:49] LABS: Potassium* 3.5 mmol/L (3.6-5.1)
[2024-07-26 01:51] LABS: Creatinine* 0.6 mg/dL (0.5-1.5); Est. Creatinine Clearance* 36.95; Estimated Glomerular Filt Rate 96 ml/min
[2024-07-26 01:52] LABS: Anion Gap 7 mEq/L (7-15); Blood Urea Nitrogen* 20 mg/dL (7-30); Calcium* 8.6 mg/dL (8.4-10.6); Carbon Dioxide* 28 mmol/L (20-32); Glucose* 100 mg/dL (60-115)
[2024-07-26] MEDS: KETOROLAC 30 MG/ML inj IVP (01:53)
[2024-07-26] MEDS: ACETAMINOPHEN SUSPENSION 1 BOTTLE 650 MG PO (02:00)
[2024-07-26 02:17] LABS: PCR FLU A Negative PCR FLU A (Negative); PCR FLU B Negative PCR FLU B (Negative); PCR RSV Negative PCR RSV (Negative); SARS PCR* POSITIVE SARS-CoV-2 (Negative)
--- NOTE | 2024-07-26 03:39 | CRLHL7_ITS ---
For Patients: As a result of the 21st Century Cures Act, medical imaging exams and procedure reports are released immediately into your electronic medical record. You may view this report before your referring provider. If you have questions, please contact your health care provider. INDICATION: COVID, COUGH,SOB, HISTORY OF LUNG CANCER. (Sic) COMPARISON: 06/29/2024 TECHNIQUE: CT of the chest with 75 cc of Isovue 370 intravenous contrast. Please note that all CT scans at this facility use dose modulation, iterative reconstruction, and/or weight-based dosing when appropriate to reduce radiation dose to as low as reasonably achievable. FINDINGS: THORAX Visualized Lower Neck: No lower cervical adenopathy. Lungs: No findings indicate COVID pneumonia. Right lung: Redemonstration an irregular 9 mm (mean diameter) paramediastinal right upper lobe pulmonary nodule (series 3; image 23). PET-CT is recommended for further characterization. Persistent irregular ground-glass nodular opacity measuring 14 mm in greatest axial dimension (3; 29) with straight and concave margins on the sagittal and coronal reformatted series (5; 93 and 4; 75), nonspecific. Follow-up CT is recommended in 6-12 months according to Fleischner guidelines. Persistent right apical subsegmental bronchial wall thickening (3; 35), not considered clinically significant in the acute setting. Right lower lobe subpleural curvilinear band opacity consistent with nonspecific fibrosis. Left lung: Unchanged subcentimeter left apical nodular opacities (3; 21, 25, 29). Attention on follow-up is recommended. Left upper lobectomy. Unchanged left basilar pleural-based linear opacities consistent with nonspecific fibrosis. Pleura: No pleural effusion. No pneumothorax. Mediastinum: Thoracic aorta and pulmonary trunk are normal in caliber. The study is technically inadequate for evaluation of pulmonary embolism due to timing of imaging relative to contrast bolus administration. No filling defect is identified within the pulmonary arterial tree. Heart and pericardium are without significant findings. Trachea and esophagus are normal in appearance. No mediastinal lymphadenopathy. ABDOMEN Visualized Upper Abdomen: No significant findings. Anterior interpolar right renal cortical thinning consistent with chronic scar. Simple anterior left upper pole renal cortical cyst. SKELE[employer]ALL No significant interval findings. Chronic unchanged moderate T12 superior endplate compression deformity. IMPRESSION: 1. No findings indicate COVID pneumonia. No imaging findings to explain the history of cough and shortness of breath. 2. Redemonstration an irregular 9 mm (mean diameter) paramediastinal right upper lobe pulmonary nodule (series 3; image 23). PET-CT is recommended for further characterization. 3. Persistent irregular ground-glass nodular opacity measuring 14 mm in greatest axial dimension (3; 29) with straight and concave margins on the sagittal and coronal reformatted series (5; 93 and 4; 75), nonspecific. Follow-up CT is recommended in 6-12 months according to Fleischner guidelines. 4. Unchanged subcentimeter left apical nodular opacities (3; 21, 25, 29). Attention on follow-up is recommended. 5. Incidental findings as above. RECOMMENDATION: PET-CT. Please note that all CT scans at this facility use dose modulation, iterative reconstruction, and/or weight-based dosing when appropriate to reduce radiation dose to as low as reasonably achievable. Dictated by Eulogio Dalal MD @ 07/26/2024 6:02:46 AM (Electronically Signed)
[2024-07-26 03:54] LABS: D Dimer Quantitative* 0.48 ug/ml (0.00-0.50)
[2024-07-26] MEDS: HYDROmorphone 0.5 mg/0.5 ml inj IVP (04:16)
--- NOTE | 2024-07-26 06:31 | ED_ITS ---
HPI - General Adult General Date Seen: 07/26/24 Chief complaint: Shortness of Breath/Dyspnea Stated complaint: o2 sats 87, difficulty breathing Time Seen by Provider: 07/26/24 01:11 Source: patient and family Mode of arrival: ambulatory Limitations: no limitations History of Present Illness HPI narrative: 69-year-old female brought in by her two granddaughters with fever and shortness of breath. The fever just began today. She has been coughing and wheezing for several days. No vomiting or diarrhea. She has been using her nebulizer frequently. She is chronically on Symbicort and DuoNebs. She did not want to come to the hospital but finally gave in when she could not breathe. She has chronic pain in her neck and low back but denies chest pain. No leg swelling. Related Data Home Medications ?Medication ?Instructions ?Recorded ?Confirmed hydrochlorothiazide 25 mg tablet 12.5 mg PO DAILY 01/10/24 06/19/24 albuterol 90 mcg-budesonide 80 2 inh inhalation ONCE PRN 01/23/24 06/19/24 mcg/actuation HFA aerosol inhaler ipratropium 0.5 mg-albuterol 3 mg 3 ml inhalation Q4-6H PRN 01/23/24 06/19/24 (2.5 mg base)/3 mL nebulization soln lisinopril 5 mg tablet 5 mg PO QDAY 01/23/24 06/19/24 omeprazole 40 mg capsule,delayed 40 mg PO QDAY 01/23/24 06/19/24 release aspirin 81 mg tablet,delayed 81 mg PO QDAY 03/20/24 06/19/24 release (Adult Aspirin Regimen) potassium chloride 10 mEq 10 meq PO BID 06/19/24 06/19/24 tablet,extended release Previous Rx's ?Medication ?Instructions ?Recorded naloxone 1 mg/mL injection syringe 1 mg IM ONCE #2 mL 01/23/24 apixaban 5 mg tablet (Eliquis) 5 mg PO BID #180 tabs 03/20/24 atorvastatin 40 mg tablet 40 mg PO QHS #90 tabs 03/20/24 cetirizine 10 mg tablet (Zyrtec) 10 mg PO QDAY #90 tabs 03/20/24 cyclobenzaprine 10 mg tablet 10 mg PO QHS PRN muscle spasm #90 03/20/24 tabs escitalopram oxalate 20 mg tablet 20 mg PO QDAY #90 tabs 03/20/24 prazosin 2 mg capsule 6 mg (3 x 2 mg) PO QHS #90 caps 03/22/24 oxycodone-acetaminophen 10 mg-325 1 tab PO BID PRN pain #20 tabs 05/28/24 mg tablet buspirone 10 mg tablet 10 mg PO TID #90 tabs 06/19/24 ropinirole 1 mg tablet 1 mg PO QHS #30 tabs 06/19/24 tiotropium bromide 2.5 2 puff inhalation QDAY #4 grams 06/19/24 mcg/actuation mist for inhalation (Spiriva Respimat) budesonide 160 mcg-glycopyr 9 2 inh inhalation BID #10.7 grams 07/04/24 mcg-formot 4.8 mcg/actuation HFA inhaler (Breztri Aerosphere) hydroxyzine HCl 25 mg tablet 25 mg PO QID PRN anxiety #90 tabs 07/23/24 albuterol sulfate 2.5 mg/3 mL 2.5 mg (3 mL) inhalation Q4-6H PRN 07/26/24 (0.083 %) solution for nebulization shortness of breath or wheezing #90 mL lorazepam 1 mg tablet (Ativan) 1 mg PO BID PRN anxiety #10 tabs 07/26/24 nirmatrelvir 300 mg (150 mg See Rx Instructions PO .COMPLEX 07/26/24 x2)-ritonavir 100 mg tablet,dose #30 ea pack (Paxlovid) ondansetron 8 mg disintegrating 8 mg PO Q8H PRN nausea and 07/26/24 tablet vomiting #30 tabs Allergies Allergy/AdvReac Type Severity Reaction Status Date / Time Penicillins Allergy Severe Anaphylaxis Verified 06/29/24 11:23 bupropion (From Wellbutrin) Allergy Intermediate Body Verified 06/29/24 11:23 Numbness & Tingling gabapentin Allergy Intermediate Severe Verified 06/29/24 11:23 Fatigue Sulfa (Sulfonamide Allergy Intermediate Blister Verified 06/29/24 11:23 Antibiotics) Inside & Outside Mouth bee venom protein (honey bee) Allergy Unknown Verified 06/29/24 11:23 Review of Systems Narrative: Patient is chronically anxious and struggling as her benzodiazepines are weaned and discontinued. She is on chronic opiate therapy prescribed by the [facility]. She has chronic pain in her neck and low back. She has difficulty swallowing pills. A recent EGD did not show a stricture. She continues to smoke. Review of systems in all other areas is noted to be negative. [facility] Medical History (Updated 07/26/24 @ 06:32 by Addison Chapin MD) Eosinophilic esophagitis ?K20.0 - Eosinophilic esophagitis (ICD-10) Restless leg syndrome ?G25.81 - Restless legs syndrome (ICD-10) Primary hypertension ?I10 - Essential (primary) hypertension (ICD-10) Mixed hyperlipidemia ?E78.2 - Mixed hyperlipidemia (ICD-10) History of acute pancreatitis (08/03/23) ?Z87.19 - Personal history of other diseases of the digestive system (ICD-10) Vitamin D deficiency ?E55.9 - Vitamin D deficiency, unspecified (ICD-10) Allergic rhinitis, seasonal ?J30.2 - Other seasonal allergic rhinitis (ICD-10) Alcohol dependence in remission ?F10.21 - Alcohol dependence, in remission (ICD-10) Migraines ?G43.909 - Migraine, unspecified, not intractable, without status migrainosus (ICD-10) Urinary incontinence ?R32 - Unspecified urinary incontinence (ICD-10) Peripheral vascular disease ?I73.9 - Peripheral vascular disease, unspecified (ICD-10) History of pyloric stenosis ?Z87.19 - Personal history of other diseases of the digestive system (ICD-10) GERD (gastroesophageal reflux disease) ?K21.9 - Gastro-esophageal reflux disease without esophagitis (ICD-10) COPD (chronic obstructive pulmonary disease) ?J44.9 - Chronic obstructive pulmonary disease, unspecified (ICD-10) History of primary malignant neoplasm of left lung (06/2017) ?Z85.118 - Personal history of other malignant neoplasm of bronchus and lung (ICD-10) Chronic neck and back pain ?M54.2 - Cervicalgia (ICD-10) ?M54.9 - Dorsalgia, unspecified (ICD-10) ?G89.29 - Other chronic pain (ICD-10) Osteoporosis ?M81.0 - Age-related osteoporosis without current pathological fracture (ICD- 10) Lung nodules ?R91.8 - Other nonspecific abnormal finding of lung field (ICD-10) PTSD (post-traumatic stress disorder) ?F43.10 - Post-traumatic stress disorder, unspecified (ICD-10) Chronic prescription opiate use ?Z79.891 - group home (current) use of 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 (ICD-10) BREONNA (generalized anxiety disorder) ?F41.1 - Generalized anxiety disorder (ICD-10) Major depression, recurrent ?F33.9 - Major depressive disorder, recurrent, unspecified (ICD-10) Chronic pain syndrome ?G89.4 - Chronic pain syndrome (ICD-10) Surgical History History of lumbar fusion (1995) ?Z98.1 - Arthrodesis status (ICD-10) History of tubal ligation ?Z98.51 - Tubal ligation status (ICD-10) History of left hip hemiarthroplasty (2012) ?Z96.642 - Presence of left artificial hip joint (ICD-10) History of release of tendon (2017) ?Z98.890 - Other specified postprocedural states (ICD-10) History of total bilateral knee replacement ?Z96.653 - Presence of artificial knee joint, bilateral (ICD-10) History of inguinal hernia repair (08/09/22) ?Z98.890 - Other specified postprocedural states (ICD-10) ?Z87.19 - Personal history of other diseases of the digestive system (ICD-10) History of esophageal dilatation (~2012) ?Z98.890 - Other specified postprocedural states (ICD-10) 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) ?Z90.2 - Acquired absence of lung [part of] (ICD-10) Family History Family/Other Drug dependence Mother High blood pressure Heart disease Diabetes Maternal Grandmother Diabetes Other Breast cancer Social History Narrative: , one daughter, retired, smoker, no EtOH What is your current living situation?: I presently have a place to live Problems where you live: no known problems In the past 12 months, utilities in danger of being shut off: no In past 12 months, lack of transportation kept you from medical appts, meetings, work, or getting things needed for daily living: no In the past 12 mos, have been you worried that your food would run out before you had money to buy more?: sometimes true In the past 12 mos, the food you bought just didn't last and you didn't have money to buy more?: sometimes true Smoking Status: Current every day smoker How often do you have a drink containing alcohol: never AUDIT-C Alcohol total score: 0 Non-prescribed substance use: marijuana (any form) How often does anyone, including family, friends and others, physically hurt you : never How often does anyone, including family, friends and others, insult or talk down to you: never How often does anyone, including family, friends and others, threaten you with harm: never How often does anyone, including family, friends and others, scream or curse at you: never Health Related Social Needs: food insecurity (Z59.41) Exam Narrative: Exam Narrative: Vitals noted. She is febrile to 102.5. She is restless and very anxious. HEENT: Conjunctiva clear. Tympanic membranes are pearly white bilaterally. Posterior pharynx is clear without erythema or exudate. Neck is supple without adenopathy, thyromegaly, carotid bruit. Lungs: Greatly diminished with inspiratory and expiratory wheezes. No localizing rales or rhonchi. Heart: Distant and irregularly irregular rate and rhythm without murmur. Abdomen: Soft and nontender. No guarding, rigidity, rebound. Bowel sounds are normal. No palpable masses. Extremities: No cyanosis or edema. Good distal pulses. Skin: No abnormalities noted of the exposed skin. Neurologic: Awake, alert, fully oriented. Neurologic exam is nonfocal. Const: Vital Signs, click to edit/add: Vital Signs - 24 hr 07/26/24 00:35 07/26/24 01:53 07/26/24 02:00 Temperature 102.5 F H 102.5 F H 102.5 F H Pulse Rate [Pulse Oximeter] 100 Respiratory Rate 24 Blood Pressure [Ri ght Upper Arm] 154/90 H Pulse Oximetry 97 Oxygen Delivery Me thod Room Air 07/26/24 03:04 07/26/24 03:52 07/26/24 04:19 Temperature 102.5 F H 98.7 F 98.7 F Pulse Rate [Pulse Oximeter] 93 Respiratory Rate 20 Blood Pressure [Ri t Upper Arm] 121/63 Pulse Oximetry 95 Oxygen Delivery Me thod Room Air Course Course ED Course: Patient seen and examined. For pain and fever are treated with Tylenol, Toradol 30 mg IV, Dilaudid 0.5 mg IV. Her anxiety is treated with lorazepam 1 mg IV. Triple swab is positive for COVID. CBC, BMP, D-dimer are all normal. She was given a DuoNeb with some improvement in her wheezing. Chest x-ray shows: Faint bilateral lower lung patchy opacities. Findings are nonspecific, may represent atelectasis or infiltrates. She has CT shows: 1. No findings indicate COVID pneumonia. No imaging findings to explain the history of cough and shortness of breath. 2. Re-demonstration an irregular 9 mm (mean diameter) paramediastinal right upper lobe pulmonary nodule (series 3; image 23). PET-CT is recommended for further characterization. 3. Persistent irregular ground-glass nodular opacity measuring 14 mm in greatest axial dimension (3; 29) with straight and concave margins on the sagittal and coronal reformatted series (5; 93 and 4; 75), nonspecific. Follow-up CT is recommended in 6-12 months according to Fleischner guidelines. 4. Unchanged subcentimeter left apical nodular opacities (3; 21, 25, 29). Attention on follow-up is recommended. Vital Signs Vital signs: Initial Vital Signs Temperature 102.5 F H 07/26/24 00:35 Temperature Source Temporal Artery Scan 07/26/24 00:35 Pulse Rate 100 07/26/24 00:35 Respiratory Rate 24 07/26/24 00:35 Blood Pressure 154/90 H 07/26/24 00:35 Blood Pressure Mean 111 H 07/26/24 00:35 Blood Pressure Position Sitting 07/26/24 00:35 Pulse Oximetry 97 07/26/24 00:35 Oxygen Delivery Method Room Air 07/26/24 00:35 Vital Signs Temperature 102.5 F H 07/26/24 00:35 Pulse Rate 100 07/26/24 00:35 Respiratory Rate 24 07/26/24 00:35 Blood Pressure 154/90 H 07/26/24 00:35 Pulse Oximetry 97 07/26/24 00:35 Oxygen Delivery Method Room Air 07/26/24 00:35 Temperature 98.7 F 07/26/24 05:58 Pulse Rate 88 07/26/24 05:58 Respiratory Rate 18 07/26/24 05:58 Blood Pressure 126/81 07/26/24 05:58 Pulse Oximetry 96 07/26/24 05:58 Oxygen Delivery Method Room Air 07/26/24 05:58 Medications Administered Medications: Discontinued Medications Generic Name Dose Route Start Last Admin Trade Name Sophia PRN Reason Stop Dose Admin Acetaminophen 1,000 mg 07/26/24 01:20 07/26/24 01:49 Acetaminophen 500 Mg Tablet PO 07/26/24 01:21 Not Given ONCE ONE Acetaminophen 650 mg 07/26/24 01:48 07/26/24 02:00 Acetaminophen Suspension 1 Bottle PO 07/26/24 01:49 650 mg ONCE ONE Administration Albuterol/Ipratropium 1 neb 07/26/24 01:23 07/26/24 01:34 Iprat-Albut 0.5-2.5 Mg/3 Ml Neb IH 07/26/24 01:24 1 neb ONCE ONE Administration Hydromorphone HCl 0.5 mg 07/26/24 03:41 07/26/24 04:16 Hydromorphone 0.5 Mg/0.5 Ml Inj IVP 07/26/24 03:42 0.5 mg ONCE ONE Administration Sodium Chloride 1,000 mls @ 500 mls/hr 07/26/24 01:24 07/26/24 03:05 0.9 % Sodium Chloride 1000 Ml IV 07/26/24 03:23 Infused .Q2H EN Infusion Ketorolac Tromethamine 30 mg 07/26/24 01:47 07/26/24 01:53 Ketorolac 30 Mg/Ml Inj IVP 07/26/24 01:48 30 mg ONCE ONE Administration Lorazepam 1 mg 07/26/24 01:21 07/26/24 01:30 Lorazepam 2 Mg/Ml Inj IVP 07/26/24 01:22 1 mg ONCE ONE Administration Medical Decision Making Lab Data Labs: Lab Results 07/26/24 07/26/24 Range/Units 01:30 01:35 WBC 6.89 (4.50-11.00) K/uL RBC 4.38 (4.00-5.20) m/uL Hgb 12.0 (12.0-16.0) gm/dL Hct 37.3 (33.0-51.0) % MCV 85 (80-100) fL MCH 27 (26-34) pg MCHC 32 (32-36) gm/dL RDW Coeff of Chung 13.7 (11.5-15.5) % Plt Count 249 (140-440) K/uL Neut % (Auto) 76.3 H (42.0-72.0) % Lymph % (Auto) 14.9 L (20-44) % Erie % (Auto) 7.1 (0.0-11.0) % Eos % (Auto) 1.5 (0.0-7.0) % Baso % (Auto) 0.1 (0.0-3.0) % Neut # (Auto) 5.30 (1.7-7.0) K/uL Lymph # (Auto) 1.00 (0.90-2.90) K/uL [place]rie # (Auto) 0.50 (0.00-0.90) K/UL Eos # (Auto) 0.10 (0.00-0.50) K/uL Baso # (Auto) 0.01 (0.00-0.30) K/uL Abs Immat Gran (auto) 0.01 (0.00-0.30) K/uL Imm/Tot Granulo (auto) 0.1 % D-Dimer Quant (PE/DVT) 0.48 (0.00-0.50) ug/ml Sodium 141 (135-149) mmol/L Potassium 3.5 L (3.6-5.1) mmol/L Chloride 106 (96-114) mmol/L Carbon Dioxide 28 (20-32) mmol/L Anion Gap 7 (7-15) mEq/L BUN 20 (7-30) mg/dL Creatinine 0.6 (0.5-1.5) mg/dL Estimated Creat Clear 36.95 Estimated GFR 96 ml/min Glucose 100 (60-115) mg/dL Calcium 8.6 (8.4-10.6) mg/dL SARS-CoV-2 (PCR) POSITIVE SARS-CoV-2 A (Negative) Influenza Type A (PCR) Negative PCR FLU A (Negative) Influenza Type B (PCR) Negative PCR FLU B (Negative) RSV (PCR) Negative PCR RSV (Negative) Discharge Plan Discharge Clinical Impression: COVID-19, COPD (chronic obstructive pulmonary disease), BREONNA (generalized anxiety disorder) Patient Disposition: Home w/ Parent or Adult Condition: Improved Additional Instructions: Paxlovid x 5 days. OK to crush med if unable to swallow pills. Don't take Eliquis or Atorvastatin for the next 7 days. Continue all other meds. Contact pain clinic to find out if they want to see you on 07/31 or have you postpone the appt. Viktor for nausea. OK to use Ativan twice daily for the next 5 days. This cannot be a correction med. Albuterol nebs every 4 hours as needed. Continue your other inhalers. Return to the ED for worsening shortness of breath. Prescriptions: New lorazepam [Ativan] 1 mg tablet 1 mg PO BID PRN (Reason: anxiety) Qty: 10 0RF ondansetron 8 mg tablet,disintegrating 8 mg PO Q8H PRN (Reason: nausea and vomiting) Qty: 30 0RF albuterol sulfate 2.5 mg /3 mL (0.083 %) solution for nebulization 2.5 mg inhalation Q4-6H PRN (Reason: shortness of breath or wheezing) Qty: 90 5RF Paxlovid 300 mg (150 mg x 2)-100 mg tablets,dose pack See Rx Instructions .ROUTE .COMPLEX Qty: 30 0RF Rx Instructions: take TWO 150 mg tablets of nirmatrelvir with ONE 100 mg tablet of ritonavir twice daily for 5 days No Action albuterol-budesonide 90-80 mcg/actuation HFA aerosol inhaler 2 inh inhalation ONCE PRN Rx Instructions: as a single dose; may repeat up to 6 doses per day (12 inhalations) ipratropium-albuterol 0.5 mg-3 mg(2.5 mg base)/3 mL solution for nebulization 3 ml inhalation Q4-6H PRN omeprazole 40 mg capsule,delayed release(DR/EC) 40 mg PO QDAY lisinopril 5 mg tablet 5 mg PO QDAY naloxone 1 mg/mL syringe 1 mg IM ONCE Qty: 2 0RF aspirin [Adult Aspirin Regimen] 81 mg tablet,delayed release (DR/EC) 81 mg PO QDAY cyclobenzaprine 10 mg tablet 10 mg PO QHS PRN (Reason: muscle spasm) Qty: 90 1RF atorvastatin 40 mg tablet 40 mg PO QHS Qty: 90 1RF Eliquis 5 mg tablet 5 mg PO BID Qty: 180 3RF escitalopram oxalate 20 mg tablet 20 mg PO QDAY Qty: 90 1RF cetirizine [Zyrtec] 10 mg tablet 10 mg PO QDAY Qty: 90 3RF potassium chloride 10 mEq tablet extended release 10 meq PO BID buspirone 10 mg tablet 10 mg PO TID Qty: 90 1RF ropinirole 1 mg tablet 1 mg PO QHS Qty: 30 1RF Rx Instructions: administer 1-3 hours before bedtime Spiriva Respimat 2.5 mcg/actuation mist 2 puff inhalation QDAY Qty: 4 5RF hydrochlorothiazide 25 mg tablet 12.5 mg PO DAILY prazosin 2 mg capsule 6 mg PO QHS Qty: 90 5RF oxycodone-acetaminophen 10-325 mg tablet 1 tab PO BID PRN (Reason: pain) Qty: 20 0RF Breztri Aerosphere 160-9-4.8 mcg/actuation HFA aerosol inhaler 2 inh inhalation BID Qty: 10.7 5RF hydroxyzine HCl 25 mg tablet 25 mg PO QID PRN (Reason: anxiety) Qty: 90 0RF Follow Up/Referrals: Addison Chapin MD [Primary Care Provider] - Stand Alone Forms: [facility] Inst[facility]
== END 2024-07-26 06:47 | disposition home or self-care (01) ==
PROVIDERS: Emergency Provider Family Medicine; PCP Family Medicine
DX: U07.1 COVID-19 (principal); J44.9 Chronic obstructive pulmonary disease, unspecified; F41.1 Generalized anxiety disorder
CPT/HCPCS: 36415; 71046; 71260; 80048; 85025; 85379; 87631; 94761; 96374; 96375; 99284; 99285; J1171; J1885; J2060; J7030; Q9967

== ENCOUNTER 2025-03-04 14:01 | Emergency (ER) | payer BC, SELFPAY ==
--- OUTSIDE RECORDS SUMMARY | 2025-01-10 06:45 | XMS_ITS | Continuity of Care Document ---
Author Organization [facility] enter Address [address] [place] [phone] Phone Care Team Providers Care Forge Tender Name Role Phone [facility] Unavailable Unava ilable Procedures Procedure Date INTERLAMINAR LMBR OR SAC Advance Directives Directive Yes / No Effective Date File Name No Information Encounters Encounter Description Practice Location Reason(s) For Visit Diagnoses Date Provider Providers Copied on Encounter [facility], [address] [place] [address], [id number], tel:[phone] [facility] No Information [facility]. [address] [place] [address], [id number], . tel:[phone] Referring Provider: Jimmie Kim, [facility] [address], [place], [address] . tel:[phone] Family History Family Member Type Diagnosis Age At Onset No Information Payers Payer name Insurance type Covered green party ID Authoriza tion(s) [employer] Dual Replacement [id number] Social History Type Description Quantity Date Captured Comments Sex Female Smoking Status No Information Chief Complaint And Reason For Visit No Information Reason For Referral Reason For Referral No Information History Of Present Illness Encounter Date Complaint History Of Prese nt Illness No Information Functional Status Date Functional Assessmen t No Information Instructions Date Instruction Additional Infor mation No Information Assessments Type Assessment Date No Information Patient Care Teams Name Effective Dates (start - stop) Status Members No Information
--- OUTSIDE RECORDS SUMMARY | 2025-01-10 06:45 | XMS_ITS | Continuity of Care Document ---
Author Organization [facility] enter Address [address] [place] [phone] Phone Care Team Providers Care District Captain Name Role Phone [facility] Unavailable Unava ilable Procedures Procedure Date INTERLAMINAR LMBR OR SAC Advance Directives Directive Yes / No Effective Date File Name No Information Encounters Encounter Description Practice Location Reason(s) For Visit Diagnoses Date Provider Providers Copied on Encounter [facility], [address] [place] [address], [id number], tel:[phone] [facility] No Information [facility]. [address] [place] [address], [id number], . tel:[phone] Referring Provider: Jimmie Kim, [facility] [address], [place], [address] . tel:[phone] Family History Family Member Type Diagnosis Age At Onset No Information Payers Payer name Insurance type Covered green party ID Authoriza tion(s) [employer] Dual Replacement [id number] Social History Type Description Quantity Date [...]
--- OUTSIDE RECORDS SUMMARY | 2025-02-28 03:43 | XMS_ITS | Continuity of Care Document ---
Author Organization [facility] Address [address] [place] [address] Phone Care Team Providers Care Informatics Physician Name Role Phone Nirmal Elliott CNP Unavailable Unavailable Allergies, Adverse Reactions, Alerts Substance Reaction Status Criticality Sulfa (Sulfonamide Antibiotics) Active No Information PENICILLIN Active No Information Medications Medication Instructions Dosage Effective Dates (start - stop) Status Comments hydrocodone 10 mg-acetaminophen 325 mg tablet take 1 tablet by ORAL route every 6 hours as needed for pain, max 4 /day - Active May fill 03/04/25 and to start on 03/05/25. Start date adjusted by one day as pharmacy had previously dispensed #3 short d/t Rx availability. 30 day script. albuterol sulfate concentrate 2.5 mg/0.5 mL solution for nebulization inhale 0.5 milliliter by nebulization route 3 times every day 2.5 MG - Active cetirizine 10 mg tablet take 1 tablet by oral route every day 10 MG - Active buspirone 30 mg tablet take 1 tablet by oral route 2 times every day 30 MG - Active escitalopram 20 mg tablet take 1 tablet by oral route every day 20 MG - Active Eliquis 5 mg tablet take 1 tablet by oral route 2 times every day 5 MG - Active prazosin 2 mg capsule take 3 capsule by oral route every day 6 MG - Active hydroxyzine HCl 25 mg tablet take 1 tablet by oral route 4 times every day as needed 25 MG - Active cyclobenzaprine 10 mg tablet take 1 tablet by oral route every day 10 MG - Active atorvastatin 40 mg tablet take 1 tablet by oral route every day 40 MG - Active lisinopril 20 mg tablet take 1 tablet by oral route every day 20 MG - Active hydrochlorothiazide 25 mg tablet take 0.5 tablet by oral route every day 12.5 MG - Active omeprazole 40 mg capsule,delayed release take 1 capsule by oral route every day before a meal 40 MG - Active hydrocodone 10 mg-acetaminophen 325 mg tablet take 1 tablet by ORAL route every 6 hours as needed for pain, max 4 /day - No Longer Active May fill and start on 02/04/25 Procedures Procedure Date OFFICE VISIT, EST TELEMEDICINE INTERLAMINAR LMBR OR SAC OR CAUDAL OFFICE/OUTPATIENT VISIT, EST OFFICE/OUTPATIENT VISIT, EST Drug Urine Toxology With Chromatography Drug test def 8-14 classes Inj anes agt/steroid; gen enoch br,w/von ce OFFICE/OUTPATIENT VISIT, EST OFFICE/OUTPATIENT VISIT, EST Drug Urine Toxology With Chromatography Drug test def 8-14 classes OFFICE/OUTPATIENT VISIT, EST OFFICE/OUTPATIENT VISIT, EST OFFICE VISIT, EST TELEMEDICINE OFFICE/OUTPATIENT VISIT, EST OFFICE/OUTPATIENT VISIT, EST OFFICE/OUTPATIENT VISIT, NEW Drug Urine Toxology With Chromatography Drug test def 8-14 classes Advance Directives Directive Yes / No Effective Date File Name No Information Encounters Encounter Description Practice Location Reason(s) For Visit Diagnoses Date Provider Providers Copied on Encounter [facility], [address], [place], [id number] , [place] tel:[phone] [facility] Widespread pain (chief complaint) Radiculopathy, cervical regionChronic pain syndromeLong term (current) use of 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Postl aminectomy syndrome, not elsewhere classifiedRadi culopathy, lumbar regionPain in right knee Lexi Kinney. [address], [place], [place], [id number], [place]. tel:[phone] OFFICE VISIT, [facility] TELEMEDICINE [facility], [address] [place], [id number] , [place] tel:[phone] [facility] [place] Neck Pain (chief complaint)L eg Pain (chief complaint) Radiculopathy, cervical regionChronic pain syndromeLong term (current) use of 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Postl aminectomy syndrome, not elsewhere classifiedRadi culopathy, lumbar regionPain in right knee 5 Lexi Kinney. [address], [address], [place], [place], [id number], [place]. tel:[phone] [facility], [address], [place], [id number] , [place] [phone] [facility] Radiculopathy, lumbar region 5 Julio Samuel. [address], [address], [place], [place], [id number], [place]. tel:[phone] Referring Provider: Steve Montes, [address] [place], [address] . tel:[phone] OFFICE/OUTPAT IENT VISIT, [facility], [address] [place] [address], [id number] , [place] tel:[phone] [facility] Widespread pain (chief complaint) Radiculopathy, cervical regionChronic pain syndromeLong term (current) use of 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Postl aminectomy syndrome, not elsewhere classifiedRadi culopathy, lumbar regionPain in right knee 5 Radha Ferrer. [address] [facility] [address], [place], [id number], [place]. tel:[phone] Referring Provider: Steve Montes, [address] [place], [address] . tel:[phone] OFFICE/OUTPAT IENT VISIT, [facility], [address] [place] [address], [id number] , [place] [phone] [facility] [place] Widespread pain (chief complaint) Radiculopathy, cervical regionPain in left kneeChronic pain syndromeLong term (current) use of 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Postl aminectomy syndrome, not elsewhere classifiedRadi culopathy, lumbar regionPain in right kneeEncounter for therapeutic drug level monitoring November-0 7- 5 Nyongesa Zita. [address] [facility] [address], [place], [place], [id number], [place]. tel:[phone] Referring Provider: Steve Montes, [address] [place], [place] [address] [place], [address] . tel:[phone] [facility], [address] [place] [address], [id number] , [place] [phone] [facility] Pain in right knee November-0 [address], [place], [id number], [place]. tel:[phone] Referring Provider: Steve Montes, [address] [place] [address] [place], [address] . tel:[phone] OFFICE/OUTPAT IENT VISIT, [facility], [address] [place] [address], [id number] , [place] [phone] [facility] [place] Widespread pain (chief complaint) Chronic pain syndromePostla minectomy syndrome, not elsewhere classifiedRadi culopathy, cervical regionPain in left kneeLong term (current) use of 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Pain in right kneeRadiculopa thy, lumbar region Apr-3 0- 5 Nyongesa Zita. [address], [place], [place], [id number], [place]. tel:[phone] Referring Provider: Steve Montes, [address] [place] [address] [place], [address] . tel:[phone] OFFICE/OUTPAT IENT VISIT, [facility], [address] [place] [address], [id number] , [place] [phone] [facility] Widespread pain (chief complaint) Chronic pain syndromePostla minectomy syndrome, not elsewhere classifiedLong term (current) use of 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Radic ulopathy, cervical regionPain in left kneeEncounter for therapeutic drug level monitoring Oct- 5 Rica Ahumada. [address], [place], [address], [place]. tel:[phone] Referring Provider: Steve Montes, [address] [place] [address] [place], [address] . tel:[phone] OFFICE/OUTPAT IENT VISIT, [facility], [address] [place] [address], [id number] , [place] [phone] [facility] Neck Pain (chief complaint) Chronic pain syndromePostla minectomy syndrome, not elsewhere classifiedLong term (current) use of 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Radic ulopathy, cervical regionPain in left kneePain in right knee 5 Julio Samuel. [address], [address], [place], [id number], [place]. tel:[phone] Referring Provider: Steve Montes, [address] [place] [address] [place], [address] . tel:[phone] OFFICE/OUTPAT IENT VISIT, [facility], [address] [place] [address], [id number] , [place] tel:[phone] [facility] neck and low back pain (chief complaint) Chronic pain syndromePostla minectomy syndrome, not elsewhere classifiedLong term (current) use of 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Radic ulopathy, cervical region Fe- 5 Mariposa Delgado. [address], [place], [place], [id number], [place]. tel:[phone] Referring Provider: Steve Montes, [address] [place], [address] . tel:[phone] OFFICE VISIT, EST TELEMEDICINE [facility], [address] [place] [address], [id number] , [place] tel:[phone] [facility] neck pain and low back pain (chief complaint) Chronic pain syndromePostla minectomy syndrome, not elsewhere classifiedLong term (current) use of 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Radic ulopathy, cervical region 5 Julia Zita. [address], [place], [id number], [place]. tel:[phone] OFFICE/OUTPAT IENT VISIT, [facility], [address] [place] [address], [id number] , [place] tel:[phone] [facility] Back Pain (chief complaint) DepressionChro isis pain syndromePostla minectomy syndrome, not elsewhere classifiedLong term (current) use of 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Radic ulopathy, cervical region 4 Tntree Ahumada. [address], [place], [address], [place]. tel:[phone] Referring Provider: Steve Montes, [address] [place], [place] [address], [address] . tel:[phone] OFFICE/OUTPAT IENT VISIT, [facility], [address] [place] [address], [id number] , [place] tel:[phone] [facility] Back Pain (chief complaint) DepressionChro isis pain syndromePostla minectomy syndrome, not elsewhere classifiedLong term (current) use of 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Cervi calgia 4 Rica Ahumada. [address] [place] [address], [place], [id number], [place]. tel:[phone] Referring Provider: Steve Montes, [address] [place], [place] [address], [address] . tel:[phone] OFFICE/OUTPAT IENT VISIT, [facility], [address], [place], [id number] , [place] [phone] [facility] [place] Widespread pain (chief complaint) Chronic pain syndromePostla minectomy syndrome, not elsewhere classifiedLong term (current) use of 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Cervi calgiaDepressi onEncounter for therapeutic drug level monitoring 4 Rica Ahumada. [address], [place], [place], [id number], [place]. tel:[phone] Referring Provider: Steve Montes, [address] [facility] [place], [address] . tel:[phone] Family History Family Member Type Diagnosis Age At Onset No Information Payers Payer name Insurance type Covered republican ID Authorrosie mercedes(s) [employer] Dual Replacement [id number] Social History Type Description Quantity Date Captured Comments Alcohol Use Details Unknown Caffeine Use Details Unknown Tobacco Use Status Smoking Status No Information Sex Female Chief Complaint And Reason For Visit From encounter dated '2025 08:43'. Widespread pain (chief complaint). Description: Severity level is 8. Duration: chronic. The patientdescribes it as achy. Reason For Referral Reason For Referral No Information Plan Of Treatment Date Type Action Status Goal Order Annual PT. Due on due Goal AST (SGOT). Due on due Goal POWER PLANT MANAGER Scanned. Due on 025 due Goal Creatinine. Due on due Goal GRAPHIC USER INTERFACE DESIGNER Paperwork. Due on due Goal UDT. Due on due Goal OARS. Due on due Goal ALT (SGPT). Due on due Goal CT-Colonography. Due on due Goal Zoster vaccine (1st). Due on due Goal Hepatitis C screening. Due o n due Goal FIT-DNA. Due on due Goal Weight. Due on d ue Goal Tobacco Use. Due on due Goal Update Social History. Due o n due Goal Medication Reconciliation. D ue on due Goal Review Allergy List. Due on due Goal Height. Due on d ue Goal Tobacco screening. Due on due Goal PHQ-9. Due on du e Goal Unhealthy drug use screening . Due on due Goal FIT. Due on due Goal ALT (SGPT). Due on due Goal AST (SGOT). Due on due Goal Creatinine. Due on due Goal UDT. Due on due Goal GRAPHIC USER INTERFACE DESIGNER Paperwork. Due on due Goal POWER PLANT MANAGER Scanned. Due on due Goal Order Annual PT. Due on due Goal OARS. Due on due Goal Tobacco screening. Due on due Goal CT-Colonography. Due on due Goal Update Social History. Due o n due Goal Medication Reconciliation. D ue on due Goal Review Allergy List. Due on due Goal Weight. Due on d ue Goal Height. Due on d ue Goal Tobacco Use. Due on due Goal Unhealthy drug use screening . Due on due Goal FIT-DNA. Due on due Goal FIT. Due on due Goal PHQ-9. Due on du e Goal Hepatitis C screening. Due o n due Goal Zoster vaccine (). Due on due Goal Creatinine. Due on due Goal GRAPHIC USER INTERFACE DESIGNER Paperwork. Due on due Goal Order Annual PT. Due on due Goal ALT (SGPT). Due on due Goal AST (SGOT). Due on due Goal OARS. Due on due Goal POWER PLANT MANAGER Scanned. Due on due Goal UDT. Due on due Goal Tobacco screening. Due on due Goal Zoster vaccine (1st). Due on due Goal CT-Colonography. Due on due Goal Height. Due on d ue Goal FIT. Due on due Goal PHQ-9. Due on du e Goal Review Allergy List. Due on due Goal Medication Reconciliation. D ue on due Goal Unhealthy drug use screening . Due on due Goal Hepatitis C screening. Due o n due Goal Tobacco Use. Due on due Goal Weight. Due on d ue Goal FIT-DNA. Due on due Goal Update Social History. Due o n due Goal Tobacco cessation counseling completed Goal OARS. Due on due Goal Creatinine. Due on due Goal GRAPHIC USER INTERFACE DESIGNER Paperwork. Due on due Goal Order Annual PT. Due on due Goal POWER PLANT MANAGER Scanned. Due on due Goal AST (SGOT). Due on due Goal ALT (SGPT). Due on due Goal UDT. Due on due Goal Hepatitis C screening. Due o n due Goal Tobacco screening. Due on due Goal FIT. Due on due Goal Update Social History. Due o n due Goal Review Allergy List. Due on due Goal Weight. Due on d ue Goal FIT-DNA. Due on due Goal Zoster vaccine (1st). Due on due Goal Unhealthy drug use screening . Due on due Goal Tobacco Use. Due on due Goal Medication Reconciliation. D ue on due Goal CT-Colonography. Due on due Goal Height. Due on d ue Goal PHQ-9. Due on du e Goal OARS. Due on due Goal UDT. Due on due Goal ALT (SGPT). Due on due Goal POWER PLANT MANAGER Scanned. Due on due Goal Creatinine. Due on due Goal Order Annual PT. Due on due Goal GRAPHIC USER INTERFACE DESIGNER Paperwork. Due on due Goal AST (SGOT). Due on due Goal Unhealthy drug use screening . Due on due Goal Medication Reconciliation. D ue on due Goal Tobacco screening. Due on due Goal Zoster vaccine (1st). Due on due Goal Tobacco Use. Due on due Goal CT-Colonography. Due on due Goal FIT-DNA. Due on due Goal PHQ-9. Due on du e Goal Height. Due on d ue Goal Review Allergy List. Due on due Goal Hepatitis C screening. Due o n due Goal Weight. Due on d ue Goal Update Social History. Due o n due Goal FIT. Due on due Goal Order Annual PT. Due on due Goal OARS. Due on due Goal GRAPHIC USER INTERFACE DESIGNER Paperwork. Due on due Goal AST (SGOT). Due on due Goal UDT. Due on due Goal POWER PLANT MANAGER Scanned. Due on due Goal ALT (SGPT). Due on due Goal Creatinine. Due on due Goal FIT. Due on due Goal Unhealthy drug use screening . Due on due Goal PHQ-9. Due on du e Goal Review Allergy List. Due on due Goal Height. Due on d ue Goal Update Social History. Due o n due Goal CT-Colonography. Due on due Goal Tobacco screening. Due on due Goal Weight. Due on d ue Goal Zoster vaccine (1st). Due on due Goal Medication Reconciliation. D ue on due Goal Tobacco Use. Due on due Goal Hepatitis C screening. Due o n due Goal FIT-DNA. Due on due Goal GRAPHIC USER INTERFACE DESIGNER Paperwork. Due on due Goal ALT (SGPT). Due on due Goal UDT. Due on due Goal AST (SGOT). Due on due Goal Creatinine. Due on due Goal POWER PLANT MANAGER Scanned. Due on due Goal Order Annual PT. Due on due Goal OARS. Due on due Goal Lipid panel. Due on due Goal Weight. Due on d ue Goal Hepatitis C screening. Due o n due Goal FIT-DNA. Due on due Goal Unhealthy drug use screening . Due on due Goal CT-Colonography. Due on due Goal PHQ-9. Due on du e Goal Review Allergy List. Due on due Goal Update Social History. Due o n due Goal Tobacco Use. Due on due Goal Height. Due on d ue Goal FIT. Due on due Goal Medication Reconciliation. D ue on due Goal Zoster vaccine (1st). Due on due Goal POWER PLANT MANAGER Scanned. Due on due Goal Creatinine. Due on due Goal Order Annual PT. Due on due Goal UDT. Due on due Goal ALT (SGPT). Due on due Goal GRAPHIC USER INTERFACE DESIGNER Paperwork. Due on due Goal AST (SGOT). Due on due Goal OARS. Due on due Goal Medication Reconciliation. D ue on due Goal Tobacco Use. Due on due Goal FIT. Due on due Goal PHQ-9. Due on du e Goal Hepatitis C screening. Due o n due Goal Zoster vaccine (1st). Due on due Goal Lipid panel. Due on due Goal FIT-DNA. Due on due Goal Unhealthy drug use screening . Due on due Goal Update Social History. Due o n due Goal Height. Due on d ue Goal Weight. Due on d ue Goal CT-Colonography. Due on due Goal Review Allergy List. Due on due Goal AST (SGOT). Due on due Goal UDT. Due on due Goal Creatinine. Due on due Goal OARS. Due on due Goal Order Annual PT. Due on due Goal GRAPHIC USER INTERFACE DESIGNER Paperwork. Due on due Goal ALT (SGPT). Due on due Goal POWER PLANT MANAGER Scanned. Due on due Goal CT-Colonography. Due on due Goal Unhealthy drug use screening . Due on due Goal PHQ-9. Due on du e Goal Review Allergy List. Due on due Goal Zoster vaccine (). Due on due Goal Update Social History. Due o n due Goal Tobacco Use. Due on due Goal Hepatitis C screening. Due o n due Goal Weight. Due on d ue Goal Lipid panel. Due on due Goal FIT. Due on due Goal FIT-DNA. Due on due Goal Height. Due on d ue Goal Medication Reconciliation. D ue on due Goal UDT. Due on due Goal OARS. Due on due Goal Update Social History. Due o n due Goal CT-Colonography. Due on due Goal FIT-DNA. Due on due Goal Unhealthy drug use screening . Due on due Goal PHQ-9. Due on du e Goal Height. Due on d ue Goal Tobacco Use. Due on due Goal FIT. Due on due Goal Lipid panel. Due on due Goal Review Allergy List. Due on due Goal Medication Reconciliation. D ue on due Goal Weight. Due on d ue Goal Zoster vaccine (1st). Due on due Goal Hepatitis C screening. Due o n due Goal ALT (SGPT). Due on due Goal AST (SGOT). Due on due Goal Creatinine. Due on due Goal POWER PLANT MANAGER Scanned. Due on due Goal Order Annual PT. Due on due Goal GRAPHIC USER INTERFACE DESIGNER Paperwork. Due on due Goal FIT-DNA. Due on due Goal FIT. Due on due Goal Unhealthy drug use screening . Due on due Goal Medication Reconciliation. D ue on due Goal Review Allergy List. Due on due Goal Height. Due on d ue Goal Lipid panel. Due on due Goal CT-Colonography. Due on due Goal PHQ-9. Due on du e Goal Hepatitis C screening. Due o n due Goal Zoster vaccine (1st). Due on due Goal Tobacco Use. Due on due Goal Update Social History. Due o n due Goal Weight. Due on d ue Goal POWER PLANT MANAGER Scanned. Due on due Goal ALT (SGPT). Due on due Goal Creatinine. Due on due Goal OARS. Due on due Goal AST (SGOT). Due on due Goal Order Annual PT. Due on due Goal UDT. Due on due Goal GRAPHIC USER INTERFACE DESIGNER Paperwork. Due on due Goal FIT. Due on due Goal Height. Due on d ue Goal Hepatitis C screening. Due o n due Goal Lipid panel. Due on due Goal Update Social History. Due o n due Goal Tobacco Use. Due on due Goal Medication Reconciliation. D ue on due Goal PHQ-9. Due on du e Goal Weight. Due on d ue Goal CT-Colonography. Due on due Goal Review Allergy List. Due on due Goal FIT-DNA. Due on due Goal Zoster vaccine (1st). Due on due Goal Unhealthy drug use screening . Due on due Goal Tobacco cessation counseling completed History Of Present Illness Encounter Date Complaint History Of Prese nt Illness Widespread pain Severity level i s 8. Duration: chronic. The patient describes it as achy. Comments: Roxy ruiz presents today virtually for follow up in regards to the following issues: neck pain and low back pain.Neck pain: Ibis reports severe neck pain rated at 8 out of 10, aching in nature, with tenderness in the cervical region. Pain travels down the neck and into the shoulders/arms. She had a previous consultation with [facility] regarding the cervical region and discussed a possible TFESI injection at C5-6 for neck pain. 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 EMG to BUE not completed a this time, this was planned through Dr. Smith to determine if patient's BUE hand parasthesis is r/t carpal tunnel vs. C7 tumor. No other concerns today. Comments: Roxy ruiz presents today virtually for follow up in regards to the following issues: chronic neck pain, leg pain, hip pain, and low back pain. Primary focus of today's VV is for Rx refill. Neck pain:Reports increased neck pain, rated 10/10 and worse today. Currently following with Dr. Smith at [facility] for cervical pain. Awaiting further information from Dr. Smith regarding possible neck injection and to complete EMG.Low back pain:Received L3-L4 steroid injection on January 10, 2025, for lower back pain with positive effect. Reports current medication regimen provides approximately 50% pain relief, allowing for increased functionality. No other concerns today. Leg Pain Duration: chroni c. Severity level is 9. The pain is aching. Neck Pain Duration: chroni c. The problem has worsened. Comments: Roxy ruiz presents to clinic today for follow-up in the setting of chronic neck and low back pain and medication refills. Their pain has remained stable since their last office visit.Neck Pain:Reports severe neck pain from C5 to C7 with three discs that are damaged. Experienced a popping sensation this morning when turning head with audible crunching sound. 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 Consulted with Dr. Smith who confirmed the tumor but advised against surgery due to patient's age, as it would be a major procedure.Bilateral Knee Pain:Reports the right knee, that recently received injections (genicular RF), is somewhat improved but still experiences intermittent pain. Both knees have been replaced, with the first replacement providing better results than the more recent one.Lower Back Pain:Has an upcoming lumbar DILMA scheduled later this month. Ibis is accompanied today by daughter who serves as caregiver and granddaughter. Discussed potential pain pump therapy that was previously mentioned by my colleague, KANDY Ahumada. Patient expressed concern that pain pump only targets one area, while experiencing multiple pain sites including neck, lower back, and hips.Reports 50% relief from the medication, allowing for increased daily functioning. Denies side effects from current medication regimen.No other concerns. Widespread pain Severity level i s 8. Duration: chronic. The patient describes it as achy and burning. The problem is worsening. Symptom is aggravated by bending, reaching, standing, sitting and walking. Relieving factors include Rx Meds. Widespread pain Severity level i s 8. Duration: chronic. Location of the pain is lower back, neck, left hip and bilateral knee. The patient describes it as achy and burning. The problem is worsening. Symptom is aggravated by bending, standing and walking. Relieving factors include sitting and Rx Meds. Comments: Nathan zavala presents to the clinic for a follow up and medication refill in the setting of chronic neck pain and low back pain. She is accompanied by her grand-daughter today.She is s/p R Genicular RFW NB on 11/21/24, with pending relief since procedure was done today.Neck pain continues to be bothersome. 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 Pt called and asked to send records where he recommended a Cervical TESI d/t previous insurance issues when trying to complete it at [facility].Continues to c/o of low back pain, will scheduleHer DILMA after her trip tp [place] to see step-son on 12/03/24.Reports current medication regimen provides 50% relief, allowing for increased functionality. Continues to utilize Hydrocodone 10/325mg. Endorses OIC, managed by stool softener and diet. Denies other side effects from current medication regimen. No other concerns today. Widespread pain Severity level i s 9. Duration: chronic. Location of the pain is lower back, bilateral hip and bilateral knee. The patient describes it as achy and burning. The problem is worsening. Symptom is aggravated by bending, sitting, standing and walking. Relieving factors include Rx Meds. Comments: Nathan zavala presents to the clinic for a follow up and medication refill in the setting of chronic neck pain and low back pain. She is accompanied by her grand-daughter today.Neck pain has been most bothersome. Continues to f/u with Dr. Smtih for cervical spine tumor, and [facility]. Outside records reviewed. Cervical TESI was recommended by Dr. smith to be done at [facility] but denied with insuranceReports increased low back pain d/t missing last appointment on 11/06/24 and being due out. Inquires about success rate of IT pump and thinking about it. Bilateral knee pain is worse as well, HX. TKA , right >left. Discussed GNB - she may have done this before, willing to retry Notes she's be going to to see step-son on 12/03/24.Reports current medication regimen does not provider much relief as percocet she inquire to resume percocet. Continues to utilize Hydrocodone 10/325mg. Presents without her medications again today, d/t missing her appointment on 11/06/24. Endorses OIC, managed by stool softener and diet. Denies other side effects from current medication regimen. No other concerns today. Widespread pain Severity level i s 7. Duration: chronic. Location of the pain is lower back, neck, bilateral hip and bilateral knee. The patient describes it as achy and burning. The problem is worsening. Symptom is aggravated by bending, standing, walking and reaching overhead. Relieving factors include sitting and Rx Meds. Comments: Nathan zaavla presents to the clinic for a follow up and medication refill in the setting of chronic neck pain and low back pain. She is accompanied by her grand- daughters today.Reports consulted with Dr. Smith and was inform cervical spine tumor is benign, Dilma recommended, scheduled at [facility] at 10/31/24. Pt aware we do ESIs as well. No immediate surgery recommended. EMG scheduled on 10/29/24 at [facility]. .Reports current medication regimen provides moderate pain relief and allows for increased functionality. Continues to utilize Percocet 7.5-325mg 4/day but inquires about changing to Hydrocodone 10/325mg instead d/t endorsing nausea on percocet. Presents without her medications today, admits overusing after having vomited a days worth. States she tried medical cannabis for anxiety but didn't't help. Endorses OIC, managed by stool softener and diet. Denies other side effects from current medication regimen. No other concerns today. Comments: This i s my first evaluation of the patient, whose care is routinely managed by my colleague Zita Strauss DNP. Jordan is a 69 y/o female who presents to the clinic for a follow up and medication refill in the setting of chronic neck pain and low back pain. She is accompanied by her granddaughters today. Pain has been worse since [facility]. Scheduled for a f/u in mid-October with her spine surgeon to discuss the tumor/lesion that was present on recent cervical MRI. Today c/o worsened BL knee pain, noting a hx of BL knee replacements. Describes the pain as achy and burning. Currently of secondary concern as her cervical tumor/lesion is getting worked up.Reports current medication regimen provides 50% pain relief and allows for increased functionality. Continues to utilize Percocet 7.5-325mg 4/day. Was switched from 10/325 TID at [facility] to try and get more longer lasting relief throughout the day, but notes minimal change. Expresses interest in increasing her dose to 10/325 4/day. Presents without her medications today, as she was due out. Denies OIC or other side effects from current medication regimen. No other concerns today. Neck Pain The severity of the problem is 9. Duration: chronic. The patient describes the pain as Aching and Burning. Aggravating factors include bending, standing, walking, reaching overhead, sitting, housework, social activities and self care. Relieving factors include medications. Comments: This i s my first evaluation, typically followed by Zita Strauss DNP.Jordan is a 69 y/o female who presents for a follow up and medication refill in the setting of chronic neck pain and low back pain. She is accompanied by her granddaughter today. Ongoing neck pain has been the most bothersome. She recently completed a cervical MRi with contrast that confirmed the presence of a lesion at C7. She had an appt scheduled with [facility] yesterday, but stated she became lost and wasn't able to make the appt. Has not yet scheduled. Reports current medication regimen provides significant pain relief and allows for increased functionality. Continues to utilize Percocet 10-325mg TID with significant benefit. Presents without medication today as she has been using more tabs in the middle night and is out. Expresses interest in being prescribed Percocet 7.5-325 4/day. Denies OIC or other side effects from current medication regimen. No other concerns today. neck and low back pain The clien t states the symptoms are chronic. Comments: Nathan zavala is a 69 y/o female who presents via [place] for virtual follow up and medication refill in the setting of chronic neck pain and low back pain. She is accompanied by her daughter today. Pain has been fluctuating this month.Ongoing neck pain has been the most bothersome. Upcoming appointment for Cervical MRI with Contrast scheduled on 08/02/24. Since the most recent Cervical MRI had shown a lesion at C7 and she has a history of lung cancer, it would be best for her to consult with neurology before pursuing any interventions.Of note, patient and her family currently has COVID-19.Reports current medication regimen provides significant pain relief and allows for increased functionality. Continues to utilize Percocet 10-325mg TID with significant benefit. Denies OIC or other side effects from current medication regimen. No other concerns today. neck pain and low back pain The symptoms are reported as being 9/10. Relieving factors include medications. The client states the symptoms are chronic. Back Pain Severity level i s 9. Duration: chronic. The client describes the pain as an ache. Symptoms are aggravated by bending, standing, walking, social activities, reaching overhead, self-care and housework. Symptoms are relieved by pain meds/drugs and sitting. Comments: Nathan zavala is a 69 y/o female who presents for follow up and medication refill in the setting of chronic neck pain and low back pain. She is accompanied by her daughter and granddaughter. Pain has been fluctuating this month.Reviewed Cervical and Lumbar MRI results. C7 lesion noted (MRI with contras recommended, hx. lung cancer) . Pt Ok to get imaging. Although she is interested in pursuing interventions, she needs to hold off until she is cleared by pulmonology - recent findings of lung nodules.Of note, patient had bronchitis which almost turned into pneumonia. Recent XR of the lungs showed some nodules in the R lung which may or may not be cancerous. She states the biopsy results of the esophagus was unremarkable. Will be obtaining a CAT of lungs scan soonReports current medication regimen provides 70% pain relief and allows for increased functionality. Continues to utilize Percocet 10-325mg TID with significant benefit. Have been out of Percocet for 4-5 days. Denies OIC or other side effects from current medication regimen. No other concerns today. Comments: Nathan zavala is a 69 y/o female who presents for follow up after initial consultation and medication refill in the setting of chronic neck pain and low back pain. She is accompanied by her daughter and granddaughter today. Pain has been fluctuating this month. Reports Percocet 10-325mg TID provides some benefit , she has been prescribed 2/day with minimal benefit and allows for increased functionality. Understands [facility] is primarily focused on interventions instead of medication management only. Notes she has discontinued the Xanax. Denies OIC or other side effects from current medication regimen. No other concerns today. Back Pain Severity level i s 8. Duration: chronic. Location of pain is lower back and neck. Symptoms are aggravated by bending, sitting, standing, walking, social activities, self-care, reaching overhead and housework. Symptoms are relieved by pain meds/drugs. Nov-13-2024 Widespread pain Severity level i s 8. Duration: chronic. Location of the pain is lower back, mid back, upper back, neck and bilateral hip. It occurs persistently. Symptom is aggravated by all movements. Comments: This i s my first evaluation of the patient. Outside records from [facility] are available for review.Jordan is a 69 y/o female here for initial consult for widespread pain, referred by Dr. Addison Ro through [facility]. Pain started many years ago and has been gradually worsening over the years. She rates the pain severity 8/10. She presents with her daughter and granddaughter, who participate in discussion of care.Reports pain is widespread, but most bothersome to her back and neck. Hx of lumbar fusion in 1995, BL knee replacements, and L hip replacement. Pain is most bothersome with prolonged positions - sleeping, walking, sitting. Patient had previously lived in [place] and moved to [place] in December 2023. Limited records available for review. Had been receiving cervical and lumbar ESIs while in [place] with benefit for 3-4 months. Has also tried PT without benefit. No records available for review.The patient is currently managed on Percocet 10-325 4 tabs/day, cyclobenzaprine, hydroxyzine, alprazolam 0.5mg, and other medications. The patient has previously tried hydrocodone and tylenol. Inquires if [facility] could take over prescribing alprazolam as her PCP is hesitant on prescribing along with Percocet. Has not followed with psych for awhile.She is interested in all treatment options, through [facility], though requests medication management as she pursues other procedures. No other concerns today. Functional Status Date Functional Assessmen t No Information Instructions Date Instruction Additional Infor mation No Information Assessments Type Assessment Date assessment Radiculopathy, cervical region A impression Ongoing neck pain wi th radiation into the BUE on occasion and down the back, along with axial cervical pain. Recently diagnosed w/ cervical spine tumor -Dr. Smith ( [facility] ) is recommending to not operate at this time r/t risks associated with procedure and patient's age and recommended completing a TFESI at C5-C6, along with BUE EMG (per 10/24/24 notes). Patient will continue to monitor and review as appropriate through [facility]. Will have an MRI every [address] Smith Notes previously reviewed for consult of C6-C7 spinal cord tumor; EMG recommended C5-C6 BL TESI recommended. Requested pt's old imaging from [place] as well. Insurance did not cover TESI previously. * Tried: PT and C7-T1 IESIs in [place] (benefit for 3-4 month)* Last completed Cervical MRI on 06/25/24 showed DDD at C5-C6, facet joint arthrosis at C3-C5 and C6-T1, and small nerve sheath tumor vs. meningioma at C7 assessment Chronic pain syndrome impression Jordan is here with chronic neck pain and low back pain. Primary reason for today's VV#2 is for an Rx refill and review POC for cervical region. Forwarded Hx: Initial onset in the following a work-related incident. Hx of depression, anxiety, PTSD, lumbar fusion in 1995, BL knee replacement, L hip replacement, and L lung cancer (currently in remission).* Recent imaging of the lungs showed nodules in the R lung, unsure if it's cancerous. Biopsy results taken from the esophagus was unremarkable assessment [facility] (current) use of opiat e analgesic impression -Patient Presents vi a VV#2 and unable to count [place] 10/325mg tablets.. She lives with her daughter who works nights and helps with her meds and did not want to wake her to count.. Pharmacy had shorted previous fill by 3 tablets d/t supply. Will Rx next script with new start date one day early and for fill day prior d/t shortage from pharmacy and meds not being available for count. Appropriate PDMP and [employer]FACE [employer]IGN[employer] Hx. -MME today is 40 mg/day. Opioid medications are high risk though benefits outweigh risks. The medication relieves at least 50% of the pain and increases the patient's daily activity and functional level. There have been no aberrant drug-related behaviors, and the patient is generally on track with the prescribed amount. Patient has been managing medications appropriately and is not confused or over sedated during today's VV#2. PDMP queried today and is appropriate. The patient is adhering to opioid treatment as recommended and outlined in [facility]'s [employer]. Appropriate to continue with opioid therapy. assessment Postlaminectomy syndrome, not el sewhere classified impression Ongoing low back brent n, worse with prolonged positioning (stable)Forwarded Hx:-MRI lumbar with DDD above fusion with associated neuroforaminal narrowing. Previously discussed DILMA above fusion as well as SCS by another [facility] provider.[Forwarded Hx]* Hx of L4-S1 fusion in 1995* Tried: PT and LESIs in [place] (benefit for 3-4months)* Last completed Lumbar MRI on 06/25/24 showed DDD at T12-L4, disc protrusion at L1-L2, and foraminal narrowing at L2-L4 assessment Radiculopathy, lumbar region Feb impression Ongoing low back brent n radiates into anterior thighs and lateral hips, worse with prolonged positioning. MRI lumbar with DDD above fusion with associated neuroforaminal narrowing. Discussed DILMA above fusion as well as SCS. Pain in thsi region stable today and not of patient [id number] IESI completed on 01/10/25 with continued pain relief to present. assessment Pain in right knee impression Stable BL knee pain, previously described as achy and burning (not of pateint concern today). Hx of BL knee replacements.Forwarded Hx:S/p R knee genicular diagnostic work up on 11/21/24 with unknown benefit Mental Status Date Cognitive Assessment Orientation - [place] ed to time, place, person, situation.Normal Orientation Patient Care Teams Name Effective Dates (start - stop) Status Members No Information
--- OUTSIDE RECORDS SUMMARY | 2025-02-28 03:43 | XMS_ITS | Continuity of Care Document ---
Author Organization [facility] Address [address] [facility] [place] [address] Phone Care Team Providers Care Public Health Dietitian Name Role Phone Nirmal Elliott CNP Unavailable [...] Diagnoses Date Provider Providers Copied on Encounter [facility], [address], [place], [id number] , [place] tel:[phone] [facility] Surgery [facility] Widespread pain (chief complaint) Radiculopathy, cervical regionChronic pain syndromeLong term (current) use of 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Postl aminectomy syndrome, not elsewhere classifiedRadi culopathy, lumbar regionPain in right knee Lexi Kinney. [address], [place], [place], [id number], [place]. tel:[phone] OFFICE VISIT, [facility] TELEMEDICINE [facility], [address] [facility] [place], [id number] , [place] tel:[phone] [facility] [place] Neck Pain (chief complaint)L eg Pain (chief complaint) Radiculopathy, cervical regionChronic pain syndromeLong term (current) use of 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Postl aminectomy syndrome, not elsewhere classifiedRadi culopathy, lumbar regionPain in right knee 5 Lexi Kinney. [address], [address], [place], [place], [id number], [place]. tel:[phone] [facility], [address], [place], [id number] , [place] [phone] [facility] Radiculopathy, lumbar region 5 Julio Samuel. [address], [address], [place], [place], [id number], [place]. tel:[phone] Referring Provider: Steve Montes, [address] [place], [address] . tel:[phone] OFFICE/OUTPAT IENT VISIT, [facility], [address] [place] [address], [id number] , [place] tel:[phone] [facility] Pain [facility] Widespread pain (chief complaint) Radiculopathy, cervical regionChronic pain syndromeLong term (current) use of 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Postl aminectomy syndrome, not elsewhere classifiedRadi culopathy, lumbar regionPain in right knee 5 Radha Ferrer. [address] [facility] [address], [place], [id number], [place]. tel:[phone] Referring Provider: Steve Montes, [address] [facility] [place], [address] . tel:[phone] OFFICE/OUTPAT IENT VISIT, [facility], [address] [place] [address], [id number] , [place] [phone] [facility] [place] Widespread pain (chief complaint) Radiculopathy, cervical regionPain in left kneeChronic pain syndromeLong term (current) use of 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Postl aminectomy syndrome, not elsewhere classifiedRadi culopathy, lumbar regionPain in right kneeEncounter for therapeutic drug level monitoring November-0 7- 5 Nyongesa Zita. [address] [facility] [address], [place], [place], [id number], [place]. tel:[phone] Referring Provider: Steve Montes, [address] [place], [place] [address], [address] . tel:[phone] [facility], [address] [place] [address], [id number] , [place] [phone] [facility] Pain in right knee November-0 5 Mariana Bryson. [address] [place], [place], [id number], [place]. tel:[phone] Referring Provider: Steve Montes, [address] [place] [address] [place], [address] . tel:[phone] OFFICE/OUTPAT IENT VISIT, [facility], [address] [place] [address], [id number] , [place] tel: [phone] [facility] [place] Widespread pain (chief complaint) Chronic pain syndromePostla minectomy syndrome, not elsewhere classifiedRadi culopathy, cervical regionPain in left kneeLong term (current) use of 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Pain in right kneeRadiculopa thy, lumbar region Apr-3 0- 5 Nyongesa Zita. [address], [place], [place], [id number], [place]. tel:[phone] Referring Provider: Steve Montes, [address] [place] [address] [place], [address] . tel:[phone] OFFICE/OUTPAT IENT VISIT, [facility], [address] [place] [address], [id number] , [place] [phone] [facility] Widespread pain (chief complaint) Chronic pain syndromePostla minectomy syndrome, not elsewhere classifiedLong term (current) use of 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Radic ulopathy, cervical regionPain in left kneeEncounter for therapeutic drug level monitoring Oct- 5 Rica Ahumada. [address], [place], [id number], [place]. tel:[phone] Referring Provider: Steve Montes, [address] [place] [address] [place], [address] . tel:[phone] OFFICE/OUTPAT IENT VISIT, [facility], [address] [place] [address], [id number] , [place] [phone] [facility] Neck Pain (chief complaint) Chronic pain syndromePostla minectomy syndrome, not elsewhere classifiedLong term (current) use of 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Radic ulopathy, cervical regionPain in left kneePain in right knee 5 Julio Samuel. [address] [facility] [address] [address] [facility] [address], [address], [place], [id number], [place]. tel:[phone] Referring Provider: Steve Montes, [address] [place] [address] [place], [address] . tel:[phone] OFFICE/OUTPAT IENT VISIT, [facility], [address] [place] [address], [id number] , [place] tel:[phone] [facility] neck and low back pain (chief complaint) Chronic pain syndromePostla minectomy syndrome, not elsewhere classifiedLong term (current) use of 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Radic ulopathy, cervical region Fe- 5 Mariposa Delgado. [address], [address], [place], [place], [id number], [place]. tel:[phone] Referring Provider: Steve Montes, [address] [place], [address] . tel:[phone] OFFICE VISIT, EST TELEMEDICINE [facility], [address] [place] [address], [id number] , [place] tel:[phone] [facility] neck pain and low back pain (chief complaint) Chronic pain syndromePostla minectomy syndrome, not elsewhere classifiedLong term (current) use of 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Radic ulopathy, cervical region 5 Julia Zita. [address], [place], [id number], [place]. tel:[phone] OFFICE/OUTPAT IENT VISIT, [facility], [address] [place] [address], [id number] , [place] tel:[phone] [facility] Back Pain (chief complaint) DepressionChro isis pain syndromePostla minectomy syndrome, not elsewhere classifiedLong term (current) use of 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Radic ulopathy, cervical region 4 Idtree Ahumada. [address], [place], [id number], [place]. tel:[phone] Referring Provider: Steve Montes, [address] [place], [place] [address], [address] . tel:[phone] OFFICE/OUTPAT IENT VISIT, [facility], [address] [place] [address], [id number] , [place] tel:[phone] [facility] Back Pain (chief complaint) DepressionChro isis pain syndromePostla minectomy syndrome, not elsewhere classifiedLong term (current) use of 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Cervi calgia 4 Rica Ahumada. [address] [place] [address], [place], [id number], [place]. tel:[phone] Referring Provider: Steve Montes, [address] [place], [place] [address], [address] . tel:[phone] OFFICE/OUTPAT IENT VISIT, [facility], [address], [place], [id number] , [place] tel:[phone] [facility] [place] Widespread pain (chief complaint) Chronic pain syndromePostla minectomy syndrome, not elsewhere classifiedLong term (current) use of 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Cervi calgiaDepressi onEncounter for therapeutic drug level monitoring 4 Rica Ahumada. [address], [place], [place], [id number], [place]. tel:[phone] Referring Provider: Steve Montes, [address] [facility] [place], [address] . tel:[phone] Family History Family Member Type Diagnosis Age At Onset No Information Payers Payer name Insurance type Covered libertarian ID Authorrosie mercedes(s) [employer] Dual Replacement [id number] Social History Type Description Quantity Date [...] Of Treatment Date Type Action Status Goal TEST EXAMINER Scanned. Due on 025 due Goal Creatinine. Due on due Goal ELECTRIC BLANKET PACKER Paperwork. Due on due Goal UDT. Due [...] due Goal UDT. Due on due Goal ELECTRIC BLANKET PACKER Paperwork. Due on due Goal TEST EXAMINER Scanned. Due on due Goal Order Annual [...] Goal Tobacco Use. Due on due Goal Zoster vaccine (1st). Due on due Goal Unhealthy drug use screening . Due on due Goal FIT-DNA. Due on due Goal FIT. Due on due Goal PHQ-9. Due on du e Goal Hepatitis C screening. Due o n due Goal Review Allergy List. Due on due Goal Update Social History. Due o n due Goal Medication Reconciliation. D ue on due Goal Unhealthy drug use screening . Due on due Goal Hepatitis C screening. Due o n due Goal Tobacco Use. Due on due Goal Weight. Due on d ue Goal FIT-DNA. Due on due Goal Creatinine. Due on due Goal ELECTRIC BLANKET PACKER Paperwork. Due on due Goal Order Annual PT. Due on due Goal ALT (SGPT). Due on due Goal AST (SGOT). Due on due Goal OARS. Due on due Goal TEST EXAMINER Scanned. Due on due Goal UDT. Due on due Goal Tobacco screening. Due on due Goal Zoster vaccine (). Due on due Goal CT-Colonography. Due on due Goal Height. Due on d ue Goal FIT. Due on due Goal PHQ-9. Due on du e Goal Tobacco cessation counseling completed Goal AST (SGOT). Due on due Goal ALT (SGPT). Due on due Goal Zoster vaccine (). Due on due Goal Unhealthy drug use screening . Due on due Goal Tobacco Use. Due on due Goal Medication Reconciliation. D ue on due Goal CT-Colonography. Due on due Goal Height. Due on d ue Goal PHQ-9. Due on du e Goal OARS. Due on due Goal Creatinine. Due on due Goal ELECTRIC BLANKET PACKER Paperwork. Due on due Goal Order Annual PT. Due on due Goal TEST EXAMINER Scanned. Due on due Goal UDT. Due on due Goal Hepatitis C screening. Due o n due Goal Tobacco screening. Due on due Goal FIT. Due on due Goal Update Social History. Due o n due Goal Review Allergy List. Due on due Goal Weight. Due on d ue Goal FIT-DNA. Due on due Goal ELECTRIC BLANKET PACKER Paperwork. Due on due Goal AST (SGOT). Due on due Goal Unhealthy drug use screening . Due on due Goal Medication Reconciliation. D ue on due Goal Tobacco screening. Due on due Goal Zoster vaccine (1st). Due on due Goal Tobacco Use. Due on [address]-Colonography. Due on due Goal [...] Order Annual PT. Due on due Goal Creatinine. Due on due Goal TEST EXAMINER Scanned. Due on due Goal ALT (SGPT). Due on due Goal UDT. Due on due Goal OARS. Due on due Goal UDT. Due on due Goal TEST EXAMINER Scanned. Due on due Goal ALT (SGPT). [...] due Goal FIT-DNA. Due on due Goal Order Annual PT. Due on due Goal OARS. Due on due Goal ELECTRIC BLANKET PACKER Paperwork. Due on due Goal AST (SGOT). Due on due Goal ELECTRIC BLANKET PACKER Paperwork. Due on due Goal Zoster vaccine (1st). Due on due Goal ALT (SGPT). Due on due Goal UDT. Due on due Goal AST (SGOT). Due on due Goal Creatinine. Due on due Goal TEST EXAMINER Scanned. Due on due Goal Order Annual [...] Medication Reconciliation. D ue on due Goal TEST EXAMINER Scanned. Due on due Goal Creatinine. Due on due Goal Order Annual PT. Due on due Goal UDT. Due on due Goal ALT (SGPT). Due on due Goal ELECTRIC BLANKET PACKER Paperwork. Due on due Goal AST (SGOT). Due on due Goal OARS. Due on due Goal Medication Reconciliation. D ue on due Goal Tobacco Use. Due on due Goal FIT. Due on due Goal PHQ-9. Due on du e Goal Hepatitis C screening. Due o n due Goal Zoster vaccine (). Due on due Goal Lipid panel. Due on due Goal FIT-DNA. Due on due Goal Unhealthy drug use screening . Due on due Goal Update Social History. Due o n due Goal Height. Due on d ue Goal Weight. Due on d ue Goal CT-Colonography. Due on due Goal Review Allergy List. Due on due Goal CT-Colonography. Due on due Goal Unhealthy drug use screening . Due on due Goal PHQ-9. Due on du e Goal Review Allergy List. Due on due Goal Zoster vaccine (1st). Due on due Goal Update Social History. Due o n due Goal Tobacco Use. Due on due Goal Hepatitis C screening. Due o n due Goal Weight. Due on d ue Goal AST (SGOT). Due on due Goal UDT. Due on due Goal Creatinine. Due on due Goal OARS. Due on due Goal Order Annual PT. Due on due Goal ELECTRIC BLANKET PACKER Paperwork. Due on due Goal ALT (SGPT). Due on due Goal TEST EXAMINER Scanned. Due on due Goal Lipid panel. Due [...] C screening. Due o n due Goal AST (SGOT). Due on due Goal ALT (SGPT). Due on due Goal Creatinine. Due on due Goal TEST EXAMINER Scanned. Due on due Goal Order Annual PT. Due on due Goal ELECTRIC BLANKET PACKER Paperwork. Due on due Goal FIT. Due [...] Goal Weight. Due on d ue Goal TEST EXAMINER Scanned. Due on due Goal ALT (SGPT). Due on due Goal Creatinine. Due on due Goal OARS. Due on due Goal AST (SGOT). Due on due Goal Order Annual PT. Due on due Goal UDT. Due on due Goal ELECTRIC BLANKET PACKER Paperwork. Due on due Goal FIT-DNA. Due on due Goal Unhealthy drug use screening . Due on due Goal Zoster vaccine (1st). Due on due Goal FIT-DNA. Due on due Goal Review Allergy List. Due on due Goal CT-Colonography. Due on due Goal Weight. Due on d ue Goal PHQ-9. Due on du e Goal Medication Reconciliation. D ue on due Goal Tobacco Use. Due on due Goal Update Social History. Due o n due Goal Lipid panel. Due on 024 due Goal Hepatitis C screening. Due o n due Goal Height. Due on d ue Goal FIT. Due on due Goal Tobacco cessation counseling [...] today. Currently following with Dr. Smith at [facility] for cervical pain. Awaiting [...] Duration: chroni c. The problem has worsened. Widespread pain Severity level i s 8. Duration: chronic. The patient describes it as achy and burning. The problem is worsening. Symptom is aggravated by bending, reaching, standing, sitting and walking. Relieving factors include Rx Meds. Comments: Roxy ruiz presents to clinic today [...] effects from current medication regimen.No other concerns. Comments: Nathan zavala presents to the clinic [...] Dr. Smith for cervical spine tumor, and [facility]. Pt called and asked to send records where he recommended a Cervical TESI d/t previous insurance issues when trying to complete it at [facility].Continues to c/o of low back pain, will scheduleHer DILMA after her trip tp [place] to see step-son on 12/03/24.Reports current medication regimen provides 50% relief, allowing for increased functionality. Continues to utilize Hydrocodone 10/325mg. Endorses OIC, managed by stool softener and diet. Denies other side effects from current medication regimen. No other concerns today. Widespread pain Severity level i s 8. [...] most bothersome. Continues to f/u with Dr. Smith for cervical spine tumor, and [facility]. Outside records reviewed. Cervical TESI was recommended by Dr. smith to be done at [facility] but denied with insuranceReports increased low back [...] her grand- daughters today.Reports consulted with Dr. 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 Pt aware we do ESIs as well. No immediate surgery recommended. EMG scheduled on 10/29/24 at [facility]. .Reports current medication regimen provides moderate pain [...] Relieving factors include sitting and Rx Meds. Neck Pain The severity of the problem is 9. Duration: chronic. The patient describes the pain as Aching and Burning. Aggravating factors include bending, standing, walking, reaching overhead, sitting, housework, social activities and self care. Relieving factors include medications. Comments: This i s my first evaluation of the patient, whose care is routinely managed by my colleague Zita Strauss DNP. Jordan is a 69 y/o female who presents to the clinic for a follow up and medication refill in the setting of chronic neck pain and low back pain. She is accompanied by her granddaughters today. Pain has been worse since [facility]. Scheduled for a f/u in mid-October [...] 4/day. Was switched from 10/325 TID at [facility] to try and get more longer lasting relief throughout the day, but notes minimal change. Expresses interest in increasing her dose to 10/325 4/day. Presents without her medications today, as she was due out. Denies OIC or other side effects from current medication regimen. No other concerns today. Comments: This i s my first evaluation, [...] C7. She had an appt scheduled with [facility] yesterday, but stated she became lost [...] a 69 y/o female who presents via [facility] for virtual follow up and medication refill [...] The client states the symptoms are chronic. Comments: Nathan [...] today. Back Pain Severity level i s 9. Duration: chronic. The client describes the pain as an ache. Symptoms are aggravated by bending, standing, walking, social activities, reaching overhead, self-care and housework. Symptoms are relieved by pain meds/drugs and sitting. Back Pain Severity level i s 8. Duration: chronic. Location of pain is lower back and neck. Symptoms are aggravated by bending, sitting, standing, walking, social activities, self-care, reaching overhead and housework. Symptoms are relieved by pain meds/drugs. Comments: Nathan zavala is a 69 y/o [...] current medication regimen. No other concerns today. Nov-13-2024 Widespread pain Severity level i s 8. Duration: chronic. Location of the pain is lower back, mid back, upper back, neck and bilateral hip. It occurs persistently. Symptom is aggravated by all movements. Comments: This i s my first evaluation of the patient. Outside records from [facility] are available for review.Jordan is a 69 y/o female here for initial consult for widespread pain, referred by Dr. Addison Ro through [facility]. Pain started many years [...] walking, sitting. Patient had previously lived in [place] and moved to [place] in December 2023. Limited records available for review. Had been receiving cervical and lumbar ESIs while in [place] with benefit for 3-4 months. Has also [...] w/ cervical spine tumor -Dr. Smith ( [facility] ) is recommending to not operate at this time r/t risks associated with procedure and patient's age and recommended completing a TFESI at C5-C6, along with [facility] EMG (per 10/24/24 notes). Patient will continue to monitor and review as appropriate through [facility]. Will have an MRI every [address] Smith Notes previously reviewed for consult of C6-C7 spinal cord tumor; EMG recommended C5-C6 BL TESI recommended. Requested pt's old imaging from [place] as well. Insurance did not cover TESI [...] taken from the esophagus was unremarkable assessment residential (current) use of opiat e analgesic impression -Patient Presents vi a VV#2 and unable to count Dustin 10/325mg tablets.. She lives with her daughter [...] being available for count. Appropriate PDMP and ELECTRIC BLANKET PACKER Hx. -MME today is 40 mg/day. Opioid [...] opioid treatment as recommended and outlined in [facility]'s ELECTRIC BLANKET PACKER. Appropriate to continue with opioid therapy. assessment Postlaminectomy syndrome, not el sewhere classified impression Ongoing low back brent n, worse with prolonged positioning (stable)Forwarded Hx:-MRI lumbar with DDD above fusion with associated neuroforaminal narrowing. Previously discussed DILMA above fusion as well as SCS by another [facility] provider.[Forwarded Hx]* Hx of L4-S1 fusion [...] region stable today and not of patient [id number] IESI completed on 01/10/25 with continued pain relief to present. assessment Pain in right knee impression Stable BL knee pain, previously described as achy and burning (not of pateint concern today). Hx of BL knee replacements.Forwarded Hx:S/p R knee genicular diagnostic work up on 11/21/24 with unknown benefit Mental Status Date Cognitive Assessment Orientation - [place] ed to time, place, person, situation.Normal Orientation Patient Care Teams Name Effective Dates (start - stop) Status Members No Information
--- OUTSIDE RECORDS SUMMARY | 2025-03-04 14:03 | XMS_ITS | Clinical Summary ---
Author Organization [place] Address [address] [facility] [place] [address] Care Team Providers Care Planning Director Name Role Phone Addison Chapin MD Primary Care Provider [phone] Allergies Active Allergy Reactions Criticality Noted Date [...] ORDERS 1953 CT COLONOGRAPHY 1953 DEXA 1953 DIABETES SCREENING 1953 FIT 1953 FLEX SIG 1953 LIPID 1953 MAMMO SCREENING 1953 sDNA (Cologuard) 1953 COLONOSCOPY 1963 COLORECTAL CANCER SCREENING 1963 HEPATITIS C SCREENING 1971 FALL RISK ASSESSMENT 2018 MEDICARE ANNUAL WELLNESS VISIT 2018 ZOSTER VACCINE (2 of 2) 05/14/2020 03/19/2020 PHQ-2 (once per calendar year) 2024 COVID-19 VACCINE ( season) 2024 03/26/2024, 04/22/2023, 12/18/2022, Additional history exists INFLUENZA VACCINE (#1) 2025 03/26/2024, 2022 DTAP/TDAP/TD VACCINE (4 - Td or Tdap) 12/29/2026 12/29/2016, 01/29/2013, 04/15/2009 PNEUMOCOCCAL VACCINE 50+ YEARS Completed 12/18/2022, 03/12/2022, 06/15/2016, Additional history exists RSV VACCINE Completed 03/03/2023 HPV VACCINE (No Doses Required) Completed MENINGITIS VACCINE Aged Out No longer eligible based on patient's age to complete this topic Insurance [employer] [facility] [employer] [facility] Care Teams Planning Director Relationship Specialty Start Date End Date Addison Chapin MD [facility] [[email or web address] 1981 . [place] [address] PCP - General Family Medicine 06/22/24
--- OUTSIDE RECORDS SUMMARY | 2025-03-04 14:03 | XMS_ITS | Clinical Summary ---
Author Organization [facility] Address [address] [place] [address] Care Team Providers Care Hydrography Teacher Name Role Phone Addison Chapin MD Primary Care Provider + Margaret Deal PA-C Unavailable [phone] Allergies Active Allergy Reactions Criticality Noted Date Comments Penicillins Anaphylaxis High 04/27/2024 Sulfa (Sulfonamide Antibiotics) High 04/27/2024 Other Reaction(s): Blisters Blisters in mouth, difficulty breathing Medications albuterol, conc: 2.5 mg/3 mL, (PROVENTIL, VENTOLIN) Inhl nebulizer solution USE 1 VIAL VIA NEBULIZER EVERY 4 TO 6 HOURS NEEDED FOR SHORTNESS OF BREATH OR WHEEZING 5 Active ELIQUIS 5 mg oral tablet Take 1 tablet (5 mg) by mouth Twice a Day. Active atorvastatin (LIPITOR) 40 mg oral tablet Take 1 tablet (40 mg) by mouth at bedtime. Active BREZTRI AEROSPHERE 160-9-4.8 mcg/actuation Inhl HFAA 5 Active busPIRone (BUSPAR) 30 mg oral tablet Take 1 tablet (30 mg) by mouth diuretics three times a day at 0800,1200,1800. 5 Active cetirizine (ZYRTEC) 10 mg oral tablet Take 1 tablet (10 mg) by mouth once daily. Active cyclobenzaprine (FLEXERIL) 10 mg oral tablet TAKE 1 TABLET BY MOUTH EVERY DAY AT BEDTIME NEEDED FOR MUSCLE SPASM Active hydroCHLOROthia zide (HYDRODIURIL) 25 mg oral tablet 5 Active escitalopram oxalate (LEXAPRO) 20 mg oral tablet Take 1 tablet (20 mg) by mouth once daily. 5 Active hydrOXYzine HCl (ATARAX) 25 mg oral tablet TAKE 1 TABLET BY MOUTH FOUR TIMES DAILY NEEDED FOR ANXIETY 5 Active lisinopriL (PRINIVIL) 5 mg oral tablet 5 Active PAXLOVID 300 mg (150 mg x 2)-100 mg oral tab TK 2 NIRMATRELVIR TS AND 1 RITONAVIR T TOGETHER PO TWICE DAILY FOR 5 DAYS 5 Active omeprazole (PRILOSEC) 40 mg oral delayed release capsule Take by mouth once daily. 5 Active ondansetron (ZOFRAN) 8 mg oral ODT DISSOLVE 1 TABLET ON THE TONGUE EVERY 8 HOURS NEEDED FOR NAUSEA OR VOMITING 5 Active Oxycodone-Aceta minophen 7.5-325 mg oral tablet Take 1 tablet by mouth every 6 (six) hours as needed. 5 Active Potassium Chloride 10 mEq oral extended release tablet Take 1 tablet (10 mEq) by mouth Twice a Day. 5 Active prazosin (MINIPRESS) 2 mg oral capsule TAKE 3 CAPSULES BY MOUTH EVERY DAY AT BEDTIME 5 Active rOPINIRole (REQUIP) 1 mg oral tablet 5 Active venlafaxine ER (EFFEXOR XR) 150 mg oral extended release capsule 24 HR Take 1 capsule (150 mg) by mouth once daily. 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 Gender Identity Not on file Sexual Orientation Not on file Last Filed Vital Signs Vital Sign Reading Time Taken Comments Blood Pressure - - Pulse - - Temperature - - Respiratory Rate - - Oxygen Saturation - - Inhaled Oxygen Concentration - - Weight 49.9 kg (110 lb) 10/15/2024 10:06 AM CDT Height 152.4 cm (5') 10/15/2024 10:06 AM CDT Body Mass Index 21.48 10/15/2024 10:06 AM CDT Plan of Treatment Health Maintenance Due Date Last Done Comments Colonoscopy 1955 Hepatitis C Screening 1955 Mammogram Screening 1955 Medicare Wellness Visit 1955 Osteoporosis Screening 1953 Depression Assessment (PHQ-2) 1954 Yearly Review of HCD 2003 COVID-19 Vaccine ( season) 2024 03/26/2024, 04/22/2023, 05/19/2022, Additional history exists Influenza Vaccine (#1) 2025 03/03/2023 Adult Tetanus Booster 12/29/2026 12/29/2016 , 01/29/2013, 04/15/2009 Pneumococcal 50+ Years Completed , 03/12/2022, 06/15/2016, Additional history exists RSV Vaccines Completed 03/03/2023 Zoster Vaccine Completed 07/06/2024, 03/19/2020 Meningococcal B Vaccine Aged Out No l onger eligible based on patient's age to complete this topic Insurance [address] [facility] [place] [address] [facility] SECURE BLUE [facility] Care Teams Hydrography Teacher Relationship Specialty Start Date End Date Addison Chapin MD [address] [place] [address] PCP - General Family Medicine 08/01/24 Margaret Deal PALizetC [address] [place] [address] [address] [place] [address] Neurology 08/01/24
--- OUTSIDE RECORDS SUMMARY | 2025-03-04 14:03 | XMS_ITS | Clinical Summary ---
Author Organization [facility] Address [address] [place] [address] Care Team Providers Care Hand Spinner Name Role Phone Pcp, No Primary Care Provider Unavailabl e Social History Tobacco Use Types Packs/Day Years Used Date Smoking Tobacco: Never Assessed Comments Unknown Sex and Gender Information Value Date Recorded Sex Assigned at Not on file Legal Sex Female 6:50 PM CDT Gender Identity Not on file Sexual Orientation Not on file Plan of Treatment Health Maintenance Due Date Last Done Comments Tetanus booster 02/29/1964 Depression screening for age 12+ 1965 BMI (ht and wt on same day) for age 18+ 1971 Hepatitis C screening for ag e 18-79 1971 Colonoscopy through age 75 1998 Lipids for age 45-75 1998 Mammogram for age 45-75 1998 Pneumococcal series for age 50+ (1 of 1 - PCV) 2003 Zoster (shingles) series for age 50+ (1 of 2) 2003 DEXA/DXA scan for age 65+ 2018 COVID-19 vaccine series ( - 2023- season) 2024 Influenza Vaccine (#1) 2025 RSV vaccine for adults or (1 - 1-dose 75+ series) 02/29/2028 Hepatitis B series for 19+ Aged Out N o longer eligible based on patient's age to complete this topic Insurance [address] [place] [address] [facility] [place] MEDICAID Care Teams Hand Spinner Relationship Specialty Start Date End Date Pcp, No . PCP - General 04/16/24
[2025-03-04 14:11] VITALS: BP 152/82; PULSE 78; RESP 20; TEMP 37.1; O2SAT 99; BMI 21.7
--- NOTE | 2025-03-04 14:55 | CRLHL7_ITS ---
For Patients: As a result of the Cures Act, medical imaging exams and procedure reports are released immediately into your electronic medical record. You may view this report before your referring provider. If you have questions, please contact your health care provider. INDICATION: Blunt injury under left breast. Worsening cough. TECHNIQUE: Chest and left ribs three views. COMPARISON: 07/26/2024. FINDINGS: No pneumothorax or pleural effusion. Mild basilar scarring or atelectasis, unchanged. Lungs otherwise clear. Aortic atherosclerosis. Cardiac and mediastinal contours stable. Upper abdomen as imaged is unremarkable. Acute mildly displaced fractures of the left 8th and 9th ribs. IMPRESSION: 1. No evidence of acute cardiopulmonary disease. 2. Acute mildly displaced left 8th and 9th rib fractures. Dictated by Malcolm Jolley MD @ 03/04/2025 3:52:51 PM (Electronically Signed)
--- NOTE | 2025-03-04 14:57 | ED.GENADULT ---
HPI - General Adult General Time Seen by Provider: 14:57 Date Seen: 03/04/25 Chief complaint: Rib Pain Stated complaint: possible cracked rib Time Seen by Provider: 03/04/25 14:43 Source: patient Mode of arrival: ambulatory Limitations: no limitations History of Present Illness HPI narrative: Ibis is a 70-year-old female with COPD not on home oxygen, previous lung cancer status post left partial lobectomy, chronic lower back pain on chronic opioids, chronic pain syndrome, presents emerged department via private car with family members with left-sided chest pain. Patient was cleaning the tub around 4 days ago, she was leaning over the tub on her left side with her chest against the corner, when she leaned she felt a pop in the area. Since then progressive worsening pain, she takes her oxycodone 10 mg for the pain with minimal relief. She has also feels that she has had progressively worsening cough which is nonproductive, and worsening shortness of breath, patient has become very shaky due to the pain. She denies any fevers or chills. She denies any abdominal pain. Patient had been doing well prior to the accident. Related Data Home Medications ?Medication ?Instructions ?Recorded ?Confirmed albuterol 90 mcg-budesonide 80 2 inh inhalation ONCE PRN 01/23/24 12/17/24 mcg/actuation HFA aerosol inhaler ipratropium 0.5 mg-albuterol 3 mg 3 ml inhalation Q4-6H PRN 01/23/24 12/17/24 (2.5 mg base)/3 mL nebulization soln lisinopril 5 mg tablet 5 mg PO QDAY 01/23/24 12/17/24 omeprazole 40 mg capsule,delayed 40 mg PO QDAY 01/23/24 12/17/24 release potassium chloride 10 mEq 10 meq PO BID 06/19/24 12/17/24 tablet,extended release oxycodone-acetaminophen 10 mg-325 1 tab PO QID PRN pain 10/04/24 12/17/24 mg tablet Previous Rx's ?Medication ?Instructions ?Recorded apixaban 5 mg tablet (Eliquis) 5 mg PO BID #180 tabs 03/20/24 cetirizine 10 mg tablet (Zyrtec) 10 mg PO QDAY #90 tabs 03/20/24 albuterol sulfate 2.5 mg/3 mL 2.5 mg (3 mL) inhalation Q4-6H PRN 07/26/24 (0.083 %) solution for nebulization shortness of breath or wheezing #90 mL ondansetron 8 mg disintegrating 8 mg PO Q8H PRN nausea and 07/26/24 tablet vomiting #30 tabs cyclobenzaprine 10 mg tablet 10 mg PO QHS PRN muscle spasm #90 09/17/24 tabs lorazepam 1 mg tablet 0.5 - 1 mg (0.5 - 1 x 1 mg) PO BID 10/04/24 PRN anxiety #60 tabs atorvastatin 40 mg tablet 40 mg PO QHS #90 tabs 12/13/24 escitalopram oxalate 20 mg tablet 20 mg PO QDAY #90 tabs 12/13/24 fluticasone propionate 50 1 spray intranasal QDAY #16 grams 12/17/24 mcg/actuation nasal spray,suspension (Flonase Allergy Relief) hydrochlorothiazide 25 mg tablet 12.5 mg (1/2 x 25 mg) PO DAILY #90 12/17/24 tabs hydroxyzine HCl 25 mg tablet 25 mg PO QID PRN anxiety #120 tabs 12/17/24 naloxone 1 mg/mL injection syringe 1 mg IM ONCE #2 mL 12/17/24 ropinirole 2 mg tablet 2 mg PO QHS #90 tabs 12/17/24 budesonide 160 mcg-glycopyr 9 2 inh inhalation BID #10.7 grams 12/28/24 mcg-formot 4.8 mcg/actuation HFA inhaler prazosin 2 mg capsule 6 mg (3 x 2 mg) PO QHS #270 caps 01/14/25 buspirone 30 mg tablet 30 mg PO TID #90 tabs 01/21/25 venlafaxine 150 mg 150 mg PO QDAY #30 caps 01/21/25 capsule,extended release 24 hr (Effexor XR) Allergies Allergy/AdvReac Type Severity Reaction Status Date / Time Penicillins Allergy Severe Anaphylaxis Verified 12/17/24 13:06 bupropion (From Wellbutrin) Allergy Intermediate Body Verified 12/17/24 13:06 Numbness & Tingling gabapentin Allergy Intermediate Severe Verified 12/17/24 13:06 Fatigue Sulfa (Sulfonamide Allergy Intermediate Blister Verified 12/17/24 13:06 Antibiotics) Inside & Outside Mouth bee venom protein (honey bee) Allergy Unknown Verified 12/17/24 13:06 diazepam Allergy Unknown Nausea & Verified 12/17/24 13:06 Vomiting varenicline AdvReac Unknown Unknown Verified 12/17/24 13:06 Review of Systems Status of ROS: Reports: 10 or more systems reviewed and unremarkable except as noted in History and below [facility] Medical History History of primary malignant neoplasm of left lung (06/2017) ?Z85.118 - Personal history of other malignant neoplasm of bronchus and lung (ICD-10) History of pyloric stenosis ?Z87.19 - Personal history of other diseases of the digestive system (ICD-10) Alcohol dependence in remission ?F10.21 - Alcohol dependence, in remission (ICD-10) COVID-19 ?U07.1 - COVID-19 (ICD-10) Eosinophilic esophagitis ?K20.0 - Eosinophilic esophagitis (ICD-10) Restless leg syndrome ?G25.81 - Restless legs syndrome (ICD-10) Primary hypertension ?I10 - Essential (primary) hypertension (ICD-10) Mixed hyperlipidemia ?E78.2 - Mixed hyperlipidemia (ICD-10) History of acute pancreatitis (08/03/23) ?Z87.19 - Personal history of other diseases of the digestive system (ICD-10) Vitamin D deficiency ?E55.9 - Vitamin D deficiency, unspecified (ICD-10) Allergic rhinitis, seasonal ?J30.2 - Other seasonal allergic rhinitis (ICD-10) Migraines ?G43.909 - Migraine, unspecified, not intractable, without status migrainosus (ICD-10) Urinary incontinence ?R32 - Unspecified urinary incontinence (ICD-10) Peripheral vascular disease ?I73.9 - Peripheral vascular disease, unspecified (ICD-10) GERD (gastroesophageal reflux disease) ?K21.9 - Gastro-esophageal reflux disease without esophagitis (ICD-10) COPD (chronic obstructive pulmonary disease) ?J44.9 - Chronic obstructive pulmonary disease, unspecified (ICD-10) Chronic neck and back pain ?M54.2 - Cervicalgia (ICD-10) ?M54.9 - Dorsalgia, unspecified (ICD-10) ?G89.29 - Other chronic pain (ICD-10) Osteoporosis ?M81.0 - Age-related osteoporosis without current pathological fracture (ICD-10) Lung nodules ?R91.8 - Other nonspecific abnormal finding of lung field (ICD-10) PTSD (post-traumatic stress disorder) ?F43.10 - Post-traumatic stress disorder, unspecified (ICD-10) Chronic prescription opiate use ?Z79.891 - buttermaker helper (current) use of 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 (ICD-10) BREONNA (generalized anxiety disorder) ?F41.1 - Generalized anxiety disorder (ICD-10) Major depression, recurrent ?F33.9 - Major depressive disorder, recurrent, unspecified (ICD-10) Chronic pain syndrome ?G89.4 - Chronic pain syndrome (ICD-10) Surgical History History of lumbar fusion (1995) ?Z98.1 - Arthrodesis status (ICD-10) History of tubal ligation ?Z98.51 - Tubal ligation status (ICD-10) History of left hip hemiarthroplasty (2012) ?Z96.642 - Presence of left artificial hip joint (ICD-10) History of release of tendon (2017) ?Z98.890 - Other specified postprocedural states (ICD-10) History of total bilateral knee replacement ?Z96.653 - Presence of artificial knee joint, bilateral (ICD-10) History of inguinal hernia repair (08/09/22) ?Z98.890 - Other specified postprocedural states (ICD-10) ?Z87.19 - Personal history of other diseases of the digestive system (ICD-10) History of esophageal dilatation (~2012) ?Z98.890 - Other specified postprocedural states (ICD-10) 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) ?Z90.2 - Acquired absence of lung [part of] (ICD-10) Family History Family/Other Drug dependence Mother High blood pressure Heart disease Diabetes Maternal Grandmother Diabetes Other Breast cancer Social History Narrative: , one daughter, retired, smoker, no EtOH What is your current living situation?: I presently have a place to live Problems where you live: no known problems In the past 12 months, utilities in danger of being shut off: no In past 12 months, lack of transportation kept you from medical appts, meetings, work, or getting things needed for daily living: no In the past 12 mos, have been you worried that your food would run out before you had money to buy more?: sometimes true In the past 12 mos, the food you bought just didn't last and you didn't have money to buy more?: sometimes true Smoking Status: Current every day smoker How often do you have a drink containing alcohol: never AUDIT-C Alcohol total score: 0 Non-prescribed substance use: marijuana (any form) How often does anyone, including family, friends and others, physically hurt you: never How often does anyone, including family, friends and others, insult or talk down to you: never How often does anyone, including family, friends and others, threaten you with harm: never How often does anyone, including family, friends and others, scream or curse at you: never Health Related Social Needs: food insecurity (Z59.41) Exam Narrative: Exam Narrative: General: Mild distress, sitting comfortably HEENT: Pupils equal round reactive to light, extraocular muscles intact Neck: Supple, no JVD Lungs: Diminished breath sounds throughout, mild expiratory wheezes throughout Chest wall: S under the left breast tender to palpation, ribs 4 through 6, no crepitus, no ecchymosis Heart: Normal sinus rhythm S1-S2 Abdomen: Nontender to palpation left upper quadrant Neuro: Alert awake and oriented x3 Const: Vital Signs, click to edit/add: Vital Signs - 24 hr 03/04/25 14:11 Temperature 98.7 F Pulse Rate [Pulse Oximeter] 78 Respiratory Rate 20 Blood Pressure [Ri ght Upper Arm] 152/82 H Pulse Oximetry 99 Oxygen Delivery Me thod Room Air Course Course ED Course: 2:45 PM: aidet performed. vitals are stable. Workup will include imaging, XR right ribs 3 V with PA rule out fracture, for her cough and breathing 40 mg oral prednisone, ipratropium-albuterol nebulizer, IM dose of morphine 4 mg for her pain, will obtain basic labs, differential diagnosis includes costochondritis, rib fracture, rib contusion, pneumonia, bronchitis, pleural effusion less likely cardiac in origin. ED disposition pending clinical course. Reevaluation(s) Time of Reevaluation #1: 15:57 Reevaluation #1: IMPRESSION: 1. No evidence of acute cardiopulmonary disease. 2. Acute mildly displaced left 8th and 9th rib fractures. CBC showed no anemia or leukocytosis, troponin point of care 0.01, comprehensive metabolic panel unchanged, imaging did show acute mildly displaced left 8th and 9th rib fractures, she was given the above care and her symptoms improved, will plan to discharge, Continue with her lies is at home, spirometry to prevent development of pneumonia. Patient will continue with her prescribed oxycodone 10 mg 4 times daily, she can add Lidoderm 4% patch every 12 hours, she should follow up with her primary care provider in the next 7-10 days. Reasons return were given. Vital Signs Vital signs: Initial Vital Signs Temperature 98.7 F 03/04/25 14:11 Temperature Source Temporal Artery Scan 03/04/25 14:11 Pulse Rate 78 03/04/25 14:11 Respiratory Rate 20 03/04/25 14:11 Blood Pressure 152/82 H 03/04/25 14:11 Blood Pressure Mean 105 03/04/25 14:11 Pulse Oximetry 99 03/04/25 14:11 Oxygen Delivery Method Room Air 03/04/25 14:11 Vital Signs Temperature 98.7 F 03/04/25 14:11 Pulse Rate 78 03/04/25 14:11 Respiratory Rate 20 03/04/25 14:11 Blood Pressure 152/82 H 03/04/25 14:11 Pulse Oximetry 99 03/04/25 14:11 Oxygen Delivery Method Room Air 03/04/25 14:11 Temperature 98.7 F 03/04/25 14:11 Pulse Rate 78 03/04/25 14:11 Respiratory Rate 20 03/04/25 14:11 Blood Pressure 152/82 H 03/04/25 14:11 Pulse Oximetry 99 03/04/25 14:11 Oxygen Delivery Method Room Air 03/04/25 14:11 Medications Administered Medications: Discontinued Medications Generic Name Dose Route Start Last Admin Trade Name Freq PRN Reason Stop Dose Admin Albuterol/Ipratropium 1 neb 03/04/25 14:54 03/04/25 15:40 Iprat-Albut 0.5-2.5 Mg/3 Ml Neb IH 03/04/25 14:55 1 neb ONCE ONE Administration Morphine Sulfate 4 mg 03/04/25 14:57 03/04/25 15:40 Morphine 4 Mg/Ml Inj IM 03/04/25 14:58 4 mg ONCE ONE Administration Prednisone 40 mg 03/04/25 14:54 03/04/25 15:40 Prednisone 20 Mg Tablet PO 03/04/25 14:55 40 mg ONCE ONE Administration Medical Decision Making Lab Data Labs: Lab Results 03/04/25 03/04/25 Range/Units 14:55 15:30 WBC 5.90 (4.50-11.00) K/uL RBC 4.48 (4.00-5.20) m/uL Hgb 12.4 (12.0-16.0) gm/dL Hct 38.3 (33.0-51.0) % MCV 86 (80-100) fL MCH 28 (26-34) pg MCHC 32 (32-36) gm/dL RDW Coeff of Chung 13.4 (11.5-15.5) % Plt Count 275 (140-440) K/uL Neut % (Auto) 66.1 (42.0-72.0) % Lymph % (Auto) 24.7 (20-44) % Delta % (Auto) 5.8 (0.0-11.0) % Eos % (Auto) 3.2 (0.0-7.0) % Baso % (Auto) 0.2 (0.0-3.0) % Neut # (Auto) 3.90 (1.7-7.0) K/uL Lymph # (Auto) 1.46 (0.90-2.90) K/uL Delta # (Auto) 0.30 (0.00-0.90) K/UL Eos # (Auto) 0.19 (0.00-0.50) K/uL Baso # (Auto) 0.01 (0.00-0.30) K/uL Abs Immat Gran (auto) 0.00 (0.00-0.30) K/uL Imm/Tot Granulo (auto) 0.0 % Sodium 139 (135-149) mmol/L Potassium 3.7 (3.6-5.1) mmol/L Chloride 105 (96-114) mmol/L Carbon Dioxide 30 (20-32) mmol/L Anion Gap 4 L (7-15) mEq/L BUN 10 (7-30) mg/dL Creatinine 0.6 (0.5-1.5) mg/dL Estimated Creat Clear 38.37 Estimated GFR 95 ml/min Glucose 79 (60-115) mg/dL Calcium 9.1 (8.4-10.6) mg/dL Total Bilirubin 0.3 (0.1-1.5) mg/dL AST 20 (12-35) U/L ALT 11 (4-35) U/L Alkaline Phosphatase 94 (40-150) U/L Total Protein 6.4 (6.0-8.3) g/dL Albumin 3.9 (3.3-5.0) g/dL POC Troponin I 0.01 (0.01-0.04) ng/ml Discharge Plan Discharge Clinical Impression: Multiple rib fractures Patient Disposition: Home, Self-Care Condition: Improved Instructions: Rib Fracture (ED) Additional Instructions: To take scheduled 10 mg oxycodone 4 times a day similar to previous, to add Lidoderm patch 4% to the area, continue with spirometry, as well as home nebulizers, follow-up with primary care provider over the next 7-10 days. Return if any worsening symptoms. Activity Level: No Restrictions Prescriptions: No Action albuterol-budesonide 90-80 mcg/actuation HFA aerosol inhaler 2 inh inhalation ONCE PRN Rx Instructions: as a single dose; may repeat up to 6 doses per day (12 inhalations) ipratropium-albuterol 0.5 mg-3 mg(2.5 mg base)/3 mL solution for nebulization 3 ml inhalation Q4-6H PRN omeprazole 40 mg capsule,delayed release(DR/EC) 40 mg PO QDAY lisinopril 5 mg tablet 5 mg PO QDAY Eliquis 5 mg tablet 5 mg PO BID Qty: 180 3RF cetirizine [Zyrtec] 10 mg tablet 10 mg PO QDAY Qty: 90 3RF potassium chloride 10 mEq tablet extended release 10 meq PO BID oxycodone-acetaminophen 10-325 mg tablet 1 tab PO QID PRN (Reason: pain) lorazepam 1 mg tablet 0.5 - 1 mg PO BID PRN (Reason: anxiety) Qty: 60 0RF fluticasone propionate [Flonase Allergy Relief] 50 mcg/actuation spray,suspension 1 spray intranasal QDAY Qty: 16 5RF Rx Instructions: administer into each nostril hydrochlorothiazide 25 mg tablet 12.5 mg PO DAILY Qty: 90 3RF ropinirole 2 mg tablet 2 mg PO QHS Qty: 90 1RF Rx Instructions: administer 1-3 hours before bedtime hydroxyzine HCl 25 mg tablet 25 mg PO QID PRN (Reason: anxiety) Qty: 120 5RF naloxone 1 mg/mL syringe 1 mg IM ONCE Qty: 2 5RF ondansetron 8 mg tablet,disintegrating 8 mg PO Q8H PRN (Reason: nausea and vomiting) Qty: 30 0RF albuterol sulfate 2.5 mg /3 mL (0.083 %) solution for nebulization 2.5 mg inhalation Q4-6H PRN (Reason: shortness of breath or wheezing) Qty: 90 5RF cyclobenzaprine 10 mg tablet 10 mg PO QHS PRN (Reason: muscle spasm) Qty: 90 1RF atorvastatin 40 mg tablet 40 mg PO QHS Qty: 90 0RF escitalopram oxalate 20 mg tablet 20 mg PO QDAY Qty: 90 0RF saviavivwq-zrfguiem-fyvzqfcvwz 160-9-4.8 mcg/actuation HFA aerosol inhaler 2 inh inhalation BID Qty: 10.7 5RF prazosin 2 mg capsule 6 mg PO QHS Qty: 270 1RF buspirone 30 mg tablet 30 mg PO TID Qty: 90 2RF venlafaxine [Effexor XR] 150 mg capsule,extended release 24hr 150 mg PO QDAY Qty: 30 2RF Follow Up/Referrals: Addison Chapin MD [Primary Care Provider, Family Practice] Stand Alone Forms: [employer] Info Instructions
[2025-03-04 15:39] LABS: Hematocrit 38.3 % (33.0-51.0); Hemoglobin* 12.4 gm/dL (12.0-16.0); Immature Granulocytes Abs Auto 0.00 K/uL (0.00-0.30); Immature Granulocytes Pct Auto 0.0 %; Lymphocytes Absolute Auto 1.46 K/uL (0.90-2.90); Mean Corpuscular HGB Conc 32 gm/dL (32-36); Mean Corpuscular Hemoglobin 28 pg (26-34); Mean Corpuscular Volume 86 fL (80-100); RDW Coefficient of Variation % 13.4 % (11.5-15.5); Red Blood Count 4.48 m/uL (4.00-5.20); Slide Review Reflex No; White Blood Count* 5.90 K/uL (4.50-11.00)
[2025-03-04] MEDS: MORPHINE 4 MG/ML INJ IM (15:40)
[2025-03-04] MEDS: IPRAT-ALBUT 0.5-2.5 MG/3 ML NEB 1 NEB IH (15:40)
[2025-03-04 15:45] LABS: Troponin, Point-of-Care* 0.01 ng/ml (0.01-0.04)
[2025-03-04 15:53] LABS: Albumin* 3.9 g/dL (3.3-5.0); Chloride* 105 mmol/L (96-114); Potassium* 3.7 mmol/L (3.6-5.1); Sodium* 139 mmol/L (135-149)
[2025-03-04 15:56] LABS: Alanine Aminotransferase* 11 U/L (4-35); Alkaline Phosphatase* 94 U/L (40-150); Anion Gap 4 mEq/L (7-15); Aspartate Amino Transferase* 20 U/L (12-35); Bilirubin Total* 0.3 mg/dL (0.1-1.5); Blood Urea Nitrogen* 10 mg/dL (7-30); Calcium* 9.1 mg/dL (8.4-10.6); Carbon Dioxide* 30 mmol/L (20-32); Creatinine* 0.6 mg/dL (0.5-1.5); Est. Creatinine Clearance* 38.37; Estimated Glomerular Filt Rate 95 ml/min; Glucose* 79 mg/dL (60-115); Total Protein* 6.4 g/dL (6.0-8.3)
== END 2025-03-04 16:18 | disposition home or self-care (01) ==
PROVIDERS: Emergency Provider Student in an Organized Health Care Education/Training Program; PCP Family Medicine
DX: S22.41XA Multiple fractures of ribs, right side, initial encounter for closed fracture (principal); R05.9 Cough, unspecified; M54.50 Low back pain, unspecified; G89.29 Other chronic pain; F11.90 Opioid use, unspecified, uncomplicated; W01.198A Fall on same level from slipping, tripping and stumbling with subsequent striking against other object, initial encounter; Y93.E9 Activity, other interior property and clothing maintenance; Y92.002 Bathroom of unspecified non-institutional (private) residence as the place of occurrence of the external cause
CPT/HCPCS: 36415; 71101; 80053; 84484; 85025; 96372; 99283; 99284; J2270; J7512

== ENCOUNTER 2025-03-26 22:12 | Emergency (ER) | payer BC, SELFPAY ==
--- OUTSIDE RECORDS SUMMARY | 2025-03-19 02:30 | XMS_ITS | Continuity of Care Document ---
Author Organization [facility] enter Address [address] [place] [id number] Phone Care Team Providers Care Detail Technician Name Role Phone [facility] Unavailable Unava ilable Procedures Procedure Date INJ FORAMEN EPIDURAL C/T INTERLAMINAR LMBR OR SAC Advance Directives Directive Yes / No Effective Date File Name No Information Encounters Encounter Description Practice Location Reason(s) For Visit Diagnoses Date Provider Providers Copied on Encounter [facility], [address] [place] [address], [id number], [place] tel:[phone] [facility] No Information 5 [facility]. [address] [place] [address], [id number], [place]. tel:[phone] Referring Provider: Mesfin Enamorado, [address] [place], [address] . tel:[phone] [facility], [address] [place] [address], [id number], [place] tel:[phone] [facility] No Information 5 [facility]. [address] [place] [address], [id number], [place]. tel:[phone] Referring Provider: Jimmie Kim, [address], [place], [address] . tel:[phone] Family History Family Member Type Diagnosis Age At Onset No Information Payers Payer name Insurance type Covered constitution party ID Authorsuea tileidy(s) [employer] Dual Replacement [id number] Social History Type Description Quantity Date [...]
--- OUTSIDE RECORDS SUMMARY | 2025-03-19 02:30 | XMS_ITS | Continuity of Care Document ---
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 Name Role Phone Mesfin Enamorado DO Unavailable Unavailable Allergies, Adverse Reactions, Alerts Substance [...] before a meal 40 MG - Active Procedures Procedure Date INJ FORAMEN EPIDURAL C/T OFFICE VISIT, EST TELEMEDICINE OFFICE VISIT, EST TELEMEDICINE INTERLAMINAR LMBR OR SAC OR CAUDAL OFFICE/OUTPATIENT VISIT, EST OFFICE/OUTPATIENT VISIT, EST Drug Urine Toxology With Chromatography Drug test def 8-14 classes Inj anes agt/steroid; gen ne roque,w/von ce OFFICE/OUTPATIENT VISIT, EST OFFICE/OUTPATIENT VISIT, EST [...] Diagnoses Date Provider Providers Copied on Encounter [facility], [address] [place], [place], [id number] , [place] tel:[phone] [facility] Radiculopathy, cervical region Kelsea Toure. [address] [facility], [place], [place], [id number], [place]. tel:[phone] Referring Provider: Steve Montes, [address] [facility] [place], [address] . tel:[phone] OFFICE VISIT, [facility] TELEMEDICINE [facility], [address] [place], [place], [id number] , [place] tel:[phone] [facility] [place] Widespread pain (chief complaint) Radiculopathy, cervical regionChronic pain syndromeLong term (current) use of 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Postl aminectomy syndrome, not elsewhere classifiedRadi culopathy, lumbar regionPain in right knee 5 Brunoeva Kinney. [address], [place], [place], [id number], [place]. [phone] Referring Provider: Steve Montes, [address] [place] [address] [place], [address] . tel:[phone] OFFICE VISIT, [facility] TELEMEDICINE [facility], [address] [place] [address], [id number] , [place] tel:[phone] [facility] Neck Pain (chief complaint)L eg Pain (chief complaint) Radiculopathy, cervical regionChronic pain syndromeLong term (current) use of 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Postl aminectomy syndrome, not elsewhere classifiedRadi culopathy, lumbar regionPain in right knee 5 Lexi Kinney. [address], [address], [place], [place], [id number], [place]. [phone] [facility], [address] [place] [address], [id number] , [place] [phone] [facility] Radiculopathy, lumbar region 5 Julio Samuel. [address], [address], [place], [place], [id number], [place]. tel:[phone] Referring Provider: Steve Montes, [address] [place] [address] [place], [address] . tel:[phone] OFFICE/OUTPAT IENT VISIT, [facility], [address] [place] [address], [id number] , [place] tel:[phone] [facility] Widespread pain (chief complaint) Radiculopathy, cervical regionChronic pain syndromeLong term (current) use of 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Postl aminectomy syndrome, not elsewhere classifiedRadi culopathy, lumbar regionPain in right knee 5 Radha Ferrer. [address], [address], [place], [place], [id number], [place]. tel:[phone] Referring Provider: Steve Montes, [address] [place] [address] [place], [address] . tel:[phone] OFFICE/OUTPAT IENT VISIT, [facility], [address] [place] [address] [place], [id number] , [place] tel:[phone] [facility] Widespread pain (chief complaint) Radiculopathy, cervical regionPain in left kneeChronic pain syndromeLong term (current) use of 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Postl aminectomy syndrome, not elsewhere classifiedRadi culopathy, lumbar regionPain in right kneeEncounter for therapeutic drug level monitoring 5 Juliasa Ahumada. [address] [place] [address] [address], [place], [place], [id number], [place]. tel:[phone] Referring Provider: Steve Montes, [address] [place] [address] [place], [address] . tel:[phone] [facility], [address] [place] [address] [place], [id number] , [place] tel:[phone] [facility] Pain in right knee 5 Mariana Bryson. [address] [place], [place], [id number], [place]. tel:[phone] Referring Provider: Steve Montes, [address] [place] [address] [place], [address] . tel:[phone] OFFICE/OUTPAT IENT VISIT, [facility], [address] [place] [address] [place], [id number] , [place] tel:[phone] [facility] Widespread pain (chief complaint) Chronic pain syndromePostla minectomy syndrome, not elsewhere classifiedRadi culopathy, cervical regionPain in left kneeLong term (current) use of 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Pain in right kneeRadiculopa thy, lumbar region Apr-3 0- 5 Rica Ahumada. [address] [facility] [address], [place], [id number], [place]. tel:[phone] Referring Provider: Steve Montes, [address] [place], [address] . tel:[phone] OFFICE/OUTPAT IENT VISIT, [facility], [address] [place] [address], [id number] , [place] tel:[phone] [facility] [place] Widespread pain (chief complaint) Chronic pain syndromePostla minectomy syndrome, not elsewhere classifiedLong term (current) use of 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Radic ulopathy, cervical regionPain in left kneeEncounter for therapeutic drug level monitoring Oct-0 5 Rica Ahumada. [address], [place], [id number], [place]. tel:[phone] Referring Provider: Steve Montes, [address] [place], [address] . tel:[phone] OFFICE/OUTPAT IENT VISIT, [facility], [address] [place] [address], [id number] , [place] [phone] [facility] [place] Neck Pain (chief complaint) Chronic pain syndromePostla minectomy syndrome, not elsewhere classifiedLong term (current) use of 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Radic ulopathy, cervical regionPain in left kneePain in right knee Mar-1 - 5 Julio Samuel. [address], [address], [place], [id number], [place]. tel:[phone] Referring Provider: Steve Montes, [address] [place], [address] . tel:[phone] OFFICE/OUTPAT IENT VISIT, [facility], [address] [place] [address], [id number] , [place] tel:[phone] [facility] neck and low back pain (chief complaint) Chronic pain syndromePostla minectomy syndrome, not elsewhere classifiedLong term (current) use of 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Radic ulopathy, cervical region 5 Mariposa Delgado. [address], [address], [place], [place], [id number], [place]. tel:[phone] Referring Provider: Steve Montes, [address] [place], [place] [address], [address] . tel:[phone] OFFICE VISIT, EST [facility], [address] [place] [address], [id number] , [place] tel:[phone] [facility] neck pain and low back pain (chief complaint) Chronic pain syndromePostla minectomy syndrome, not elsewhere classifiedLong term (current) use of 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Radic ulopathy, cervical region 5 Nyongesa Zita. [address] [facility] [address], [place], [place], [id number], [place]. tel:[phone] OFFICE/OUTPAT IENT VISIT, [facility], [address] [place] [address], [id number] , [place] tel:[phone] [facility] Back Pain (chief complaint) DepressionChro isis pain syndromePostla minectomy syndrome, not elsewhere classifiedLong term (current) use of 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Radic ulopathy, cervical region 4 Nyongesa Zita. [address] [facility] [address], [place], [place], [id number], [place]. tel:[phone] Referring Provider: Steve Montes, [address] [place], [place] [address], [address] . tel:[phone] OFFICE/OUTPAT IENT VISIT, [facility], [address] [place] [address], [id number] , [place] tel:[phone] [facility] [place] Back Pain (chief complaint) DepressionChro isis pain syndromePostla minectomy syndrome, not elsewhere classifiedLong term (current) use of 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Cervi calgia 4 Rica Ahumada. [address] [facility] [address] [facility] [address], [place], [id number], [place]. tel:[phone] Referring Provider: Steve Montes, [address] [facility] [place], [address] . tel:[phone] OFFICE/OUTPAT IENT VISIT, [facility], [address] [place], [place], [id number] , [place] tel:[phone] [facility] [place] Widespread pain (chief complaint) Chronic pain syndromePostla minectomy syndrome, not elsewhere classifiedLong term (current) use of 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Cervi calgiaDepressi onEncounter for therapeutic drug level monitoring 4 Rica Ahumada. [address] [facility] [address] [facility] [address], [place], [id number], [place]. tel:[phone] Referring Provider: Steve Montes, [address] [facility] [place], [address] . tel:[phone] Family History Family Member Type Diagnosis Age At Onset No Information Payers Payer name Insurance type Covered republican ID Authorsuea daren(s) [employer] Dual Replacement [id number] Social History Type Description Quantity Date Captured Comments Sex Female Smoking Status No Information Chief Complaint And Reason For Visit No Information Reason For Referral Reason For Referral No Information Plan Of Treatment Date Type Action Status Goal UDT. Due on due Goal ALT (SGPT). Due on due Goal Unhealthy drug use screening . Due on due Goal FIT. Due on due Goal OARS. Due on due Goal CT-Colonography. Due on due Goal Zoster vaccine (1st). Due on due Goal Hepatitis C screening. Due o n due Goal Order Annual PT. Due on due Goal FIT-DNA. Due on due Goal Weight. Due on d ue Goal Tobacco Use. Due on due Goal AST (SGOT). Due on due Goal Update Social History. Due o n due Goal Medication Reconciliation. D ue on due Goal Review Allergy List. Due on due Goal Height. Due on d ue Goal ROD HANGER Scanned. Due on due Goal Tobacco screening. Due on due Goal PHQ-9. Due on du e Goal Creatinine. Due on due Goal JOB SETTER HONING Paperwork. Due on due Goal FIT-DNA. Due on due Goal FIT. Due on due Goal PHQ-9. Due on du e Goal ROD HANGER Scanned. Due on due Goal Order Annual PT. Due on due Goal Hepatitis C screening. Due o n due Goal Zoster vaccine (1st). Due on due Goal OARS. Due on due Goal Tobacco screening. Due on due Goal ALT (SGPT). Due on due Goal CT-Colonography. Due on due Goal AST (SGOT). Due on due Goal Update Social History. Due o n due Goal Medication Reconciliation. D ue on due Goal Review Allergy List. Due on due Goal Weight. Due on d ue Goal Creatinine. Due on due Goal Height. Due on d ue Goal UDT. Due on due Goal Tobacco Use. Due on due Goal JOB SETTER HONING Paperwork. Due on due Goal Unhealthy drug use screening . Due on due Goal Creatinine. Due on due Goal Update Social History. Due o n due Goal Tobacco screening. Due on due Goal Zoster vaccine (1st). Due on due Goal CT-Colonography. Due on due Goal Height. Due on d ue Goal FIT. Due on due Goal JOB SETTER HONING Paperwork. Due on due Goal Order Annual PT. Due on due Goal PHQ-9. Due on du e Goal ALT (SGPT). Due on due Goal AST (SGOT). Due on due Goal Review Allergy List. Due on due Goal Medication Reconciliation. D ue on due Goal Unhealthy drug use screening . Due on due Goal OARS. Due on due Goal Hepatitis C screening. Due o n due Goal ROD HANGER Scanned. Due on due Goal Tobacco Use. Due on due Goal Weight. Due on d ue Goal UDT. Due on due Goal FIT-DNA. Due on due Goal Tobacco cessation counseling completed Goal Height. Due on d ue Goal PHQ-9. Due on du e Goal UDT. Due on due Goal Medication Reconciliation. D ue on due Goal CT-Colonography. Due on due Goal Hepatitis C screening. Due o n due Goal OARS. Due on due Goal Creatinine. Due on due Goal JOB SETTER HONING Paperwork. Due on due Goal Tobacco screening. Due on due Goal FIT. Due on due Goal Update Social History. Due o n due Goal Review Allergy List. Due on due Goal Weight. Due on d ue Goal Order Annual PT. Due on due Goal FIT-DNA. Due on due Goal ROD HANGER Scanned. Due on due Goal AST (SGOT). Due on due Goal Zoster vaccine (1st). Due on due Goal Unhealthy drug use screening . Due on due Goal Tobacco Use. Due on due Goal ALT (SGPT). Due on due Goal FIT. Due on due Goal AST (SGOT). Due on due Goal JOB SETTER HONING Paperwork. Due on due Goal Update Social History. Due o n due Goal Weight. Due on d ue Goal Hepatitis C screening. Due o n due Goal Review Allergy List. Due on due Goal Height. Due on d ue Goal PHQ-9. Due on du e Goal FIT-DNA. Due on due Goal Order Annual PT. Due on due Goal Creatinine. Due on due Goal ROD HANGER Scanned. Due on due Goal CT-Colonography. Due on due Goal ALT (SGPT). Due on due Goal Tobacco Use. Due on due Goal UDT. Due on due Goal Zoster vaccine (1st). Due on due Goal Tobacco screening. Due on Gualberto due Goal Medication Reconciliation. D ue on due Goal Unhealthy drug use screening . Due on due Goal OARS. Due on due Goal JOB SETTER HONING Paperwork. Due on due Goal FIT-DNA. Due on due Goal AST (SGOT). Due on due Goal Order Annual PT. Due on due Goal OARS. Due on due Goal FIT. Due on due Goal Unhealthy drug use screening . Due on due Goal PHQ-9. Due on du e Goal Review Allergy List. Due on due Goal Height. Due on d ue Goal UDT. Due on due Goal ROD HANGER Scanned. Due on due Goal Update Social History. Due o n due Goal CT-Colonography. Due on due Goal Tobacco screening. Due on Gualberto due Goal Weight. Due on d ue Goal ALT (SGPT). Due on due Goal Zoster vaccine (1st). Due on due Goal Medication Reconciliation. D ue on due Goal Tobacco Use. Due on due Goal Hepatitis C screening. Due o n due Goal Creatinine. Due on due Goal FIT-DNA. Due on due Goal ALT (SGPT). Due on due Goal UDT. Due on due Goal AST (SGOT). Due on due Goal Unhealthy drug use screening . Due on due Goal CT-Colonography. Due on due Goal PHQ-9. Due on du e Goal Creatinine. Due on due Goal Review Allergy List. Due on due Goal Update Social History. Due o n due Goal ROD HANGER Scanned. Due on due Goal Order Annual PT. Due on due Goal Tobacco Use. Due on due Goal Height. Due on d ue Goal OARS. Due on due Goal FIT. Due on due Goal Medication Reconciliation. D ue on due Goal Zoster vaccine (1st). Due on due Goal Lipid panel. Due on due Goal Weight. Due on d ue Goal Hepatitis C screening. Due o n due Goal JOB SETTER HONING Paperwork. Due on due Goal ROD HANGER Scanned. Due on due Goal Medication Reconciliation. D ue on due Goal Tobacco Use. Due on due Goal FIT. Due on due Goal Creatinine. Due on due Goal PHQ-9. Due on du e Goal Order Annual PT. Due on due Goal Hepatitis C screening. Due o n due Goal Zoster vaccine (1st). Due on due Goal UDT. Due on due Goal ALT (SGPT). Due on due Goal Height. Due on d ue Goal Weight. Due on d ue Goal JOB SETTER HONING Paperwork. Due on due Goal CT-Colonography. Due on due Goal Review Allergy List. Due on due Goal AST (SGOT). Due on due Goal OARS. Due on due Goal Lipid panel. Due on due Goal FIT-DNA. Due on due Goal Unhealthy drug use screening . Due on due Goal Update Social History. Due o n due Goal AST (SGOT). Due on due Goal Medication Reconciliation. D ue on due Goal UDT. Due on due Goal CT-Colonography. Due on due Goal Unhealthy drug use screening . Due on due Goal PHQ-9. Due on du e Goal Review Allergy List. Due on due Goal Zoster vaccine (1st). Due on due Goal Creatinine. Due on due Goal OARS. Due on due Goal Update Social History. Due o n due Goal Order Annual PT. Due on due Goal JOB SETTER HONING Paperwork. Due on due Goal ALT (SGPT). Due on due Goal Tobacco Use. Due on due Goal Hepatitis C screening. Due o n due Goal Weight. Due on d ue Goal ROD HANGER Scanned. Due on due Goal Lipid panel. Due on due Goal FIT. Due on due Goal FIT-DNA. Due on due Goal Height. Due on d ue Goal Creatinine. Due on due Goal Hepatitis C screening. Due o n due Goal Height. Due on d ue Goal ROD HANGER Scanned. Due on due Goal Tobacco Use. Due on due Goal FIT. Due on due Goal Order Annual PT. Due on due Goal Lipid panel. Due on due Goal Review Allergy List. Due on due Goal Medication Reconciliation. D ue on due Goal JOB SETTER HONING Paperwork. Due on due Goal Weight. Due on d ue Goal UDT. Due on due Goal Zoster vaccine (1st). Due on due Goal OARS. Due on due Goal ALT (SGPT). Due on due Goal Update Social History. Due o n due Goal CT-Colonography. Due on due Goal AST (SGOT). Due on due Goal FIT-DNA. Due on due Goal Unhealthy drug use screening . Due on due Goal PHQ-9. Due on du e Goal FIT-DNA. Due on due Goal Weight. Due on d ue Goal ROD HANGER Scanned. Due on due Goal FIT. Due on due Goal ALT (SGPT). Due on due Goal Creatinine. Due on due Goal OARS. Due on due Goal AST (SGOT). Due on due Goal Unhealthy drug use screening . Due on due Goal Medication Reconciliation. D ue on due Goal Order Annual PT. Due on due Goal Review Allergy List. Due on due Goal Height. Due on d ue Goal Lipid panel. Due on due Goal UDT. Due on due Goal JOB SETTER HONING Paperwork. Due on due Goal CT-Colonography. Due on due Goal PHQ-9. Due on du e Goal Hepatitis C screening. Due o n due Goal Zoster vaccine (). Due on due Goal Tobacco Use. Due [...] on due Goal Tobacco cessation counseling completed Appointment I[facility] Nolan Going To Location BOOKED History Of Present Illness Encounter Date Complaint [...] [facility] [...] today. Currently following with Dr. Smith at [facility] for cervical pain. Awaiting further information from Dr. Smith regarding possible neck injection and to complete EMG.Low back pain:Received L3-L4 steroid injection on January 10, 2025, for lower back pain with positive effect. Reports current medication regimen provides approximately 50% pain relief, allowing for increased functionality. No other concerns today. Neck Pain Duration: chroni c. The problem has worsened. Leg Pain Duration: chroni c. Severity level is 9. The pain is aching. Widespread pain Severity level i s 8. 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 Pt called and asked to send records where he recommended a Cervical TESI d/t previous insurance issues when trying to complete it at [facility].Continues to c/o of low back pain, will scheduleHer DILMA after her trip tp [place] to see step-son on 12/03/24.Reports current medication regimen provides 50% relief, allowing for increased functionality. Continues to utilize Hydrocodone 10/325mg. Endorses OIC, managed by stool softener and diet. Denies other side effects from current medication regimen. No other concerns today. Comments: Nathan zavala presents to the clinic for a follow up and medication refill in the setting of chronic neck pain and low back pain. She is accompanied by her grand-daughter today.Neck pain has been most bothersome. 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 Outside records reviewed. Cervical TESI was recommended by Dr. smith to be done at [facility] but denied with insuranceReports increased low back [...] Meds. Widespread pain Severity level i s 7. [...] tumor is benign, Dilma recommended, scheduled at [facility] at 10/31/24. Pt aware we do ESIs as well. No immediate surgery recommended. EMG scheduled on 10/29/24 at [facility]. .Reports current medication regimen provides moderate pain [...] care is routinely managed by my colleague iZta Strauss DNP. Jordan is a 69 y/o female who presents to the clinic for a follow up and medication refill in the setting of chronic neck pain and low back pain. She is accompanied by her granddaughters today. Pain has been worse since JUNG. Scheduled for a f/u in mid-October with [...] 4/day. Was switched from 10/325 TID at [facility] to try and get more longer lasting relief throughout the day, but notes minimal change. Expresses interest in increasing her dose to 10/325 4/day. Presents without her medications today, as she was due out. Denies OIC or other side effects from current medication regimen. No other concerns today. neck and low back pain The clien t states the symptoms are chronic. Comments: This i s my first evaluation, [...] C7. She had an appt scheduled with [facility] yesterday, but stated she became lost [...] a 69 y/o female who presents via [facility] for virtual follow up and medication refill [...] evaluation of the patient. Outside records from [facility] are available for review.Jordan is a 69 y/o female here for initial consult for widespread pain, referred by Dr. Addison Ro through [facility]. Pain started many years [...] walking, sitting. Patient had previously lived in [place] and moved to [place] in [place] 2023. Limited records available for review. Had been receiving cervical and lumbar ESIs while in [place] with benefit for 3-4 months. Has also [...]
[2025-03-26 22:24] VITALS: BP 193/95; PULSE 89; RESP 20; TEMP 36.7; O2SAT 97; BMI 21.4
--- NOTE | 2025-03-26 22:40 | ED_ITS ---
HPI - General Adult General Chief complaint: Hypertension Stated complaint: high BP Time Seen by Provider: 03/26/25 22:40 History of Present Illness HPI narrative: Patient c/o continued hypertension, left arm pain, WHITMAN x 2 days. Patient saw her PCP Dr. Chapin yesterday and had her lisinopril increased by 5mg and began that today at noon. Patient states she tried tylenol without relief. Patient states spotty vision - like floaters . Patient and family report no changes in mentation. Patient is not diabetic. 70-year-old woman presenting to the emergency department with her granddaughters. Concern of high blood pressure. Apparently in the 150s to 160s systolic. Granddaughters are been checking over the last day her blood pressure is on the our as they say they recommended to do so a primary care. Initiated today on Dyazide from what had been separate lisinopril and hydrochlorothiazide. Was increased and lisinopril apparently by 5 mg. Does have frontal and periorbital headaches. Does have chronic pain and takes regularly dosed oxycodone but has not taken anything today as it can cause worse headache. This last week did have an injection her neck. Has been experiencing some left arm pain as well. Question is raised as to whether not anxiety might be contributing to her blood pressure. Related Data Home Medications ?Medication ?Instructions ?Recorded ?Confirmed albuterol 90 mcg-budesonide 80 2 inh inhalation ONCE P RN 01/23/24 03/25/25 mcg/actuation HFA aerosol inhaler ipratropium 0.5 mg-albuterol 3 mg 3 ml inhalation Q4-6 H PRN 01/23/24 03/25/25 (2.5 mg base)/3 mL nebulization soln potassium chloride 10 mEq 10 meq PO BID 06/19/2403/25 tablet,extended release oxycodone-acetaminophen 10 mg-325 1 tab PO QID PRN brent n 10/04/24 03/25/25 mg tablet Previous Rx's ?Medication ?Instructions ?Recorded apixaban 5 mg tablet (Eliquis) 5 mg PO BID #180 tabs 0 03/20/24 cetirizine 10 mg tablet (Zyrtec) 10 mg PO QDAY #90 tab s 03/20/24 albuterol sulfate 2.5 mg/3 mL 2.5 mg (3 mL) inhalation Q4-6H PRN 07/26/24 (0.083 %) solution for nebulization shortness of breat h or wheezing #90 mL ondansetron 8 mg disintegrating 8 mg PO Q8H PRN nausea and 07/26/24 tablet vomiting #30 tabs lorazepam 1 mg tablet 0.5 - 1 mg (0.5 - 1 x 1 mg) PO BID 10/04/24 PRN anxiety #60 tabs fluticasone propionate 50 1 spray intranasal QDAY #16 grams 12/17/24 mcg/actuation nasal spray,suspension (Flonase Allergy Relief) hydroxyzine HCl 25 mg tablet 25 mg PO QID PRN anxiety #120 tabs 12/17/24 naloxone 1 mg/mL injection syringe 1 mg IM ONCE #2 mL 12/17/24 budesonide 160 mcg-glycopyr 9 2 inh inhalation BID #10 .7 grams 12/28/24 mcg-formot 4.8 mcg/actuation HFA inhaler prazosin 2 mg capsule 6 mg (3 x 2 mg) PO QHS #270 caps 01/14/25 buspirone 30 mg tablet 30 mg PO TID #90 tabs atorvastatin 40 mg tablet 40 mg PO QHS #90 tabs escitalopram oxalate 20 mg tablet 20 mg PO QDAY #90 ta bs 03/25/25 lisinopril 10 1 tab PO QDAY #90 tabs 03/25 mg-hydrochlorothiazide 12.5 mg tablet nystatin 100,000 unit/mL oral 500,000 unit (5 mL) PO T ID 10 days 03/25/25 suspension #150 mL omeprazole 40 mg capsule,delayed 40 mg PO QDAY #90 cap s 03/25/25 release ropinirole 2 mg tablet 2 mg PO BID #180 tabs venlafaxine 150 mg 150 mg PO QDAY #90 caps 03/11 capsule,extended release 24 hr (Effexor XR) lorazepam 1 mg tablet 0.5 - 1 mg (0.5 - 1 x 1 mg) PO 03/27/25 .bid - tid PRN #4 tabs cyclobenzaprine 10 mg tablet 10 mg PO QHS PRN muscle s pasm #90 03/28/25 tabs Allergies Allergy/AdvReac Type Severity Reaction Status Date / Time Penicillins Allergy Severe Anaphylaxis Verified 03/25/25 13:04 bupropion (From Wellbutrin) Allergy Intermediate Body Verified 03/25/25 13:04 Numbness & Tingling gabapentin Allergy Intermediate Severe Verified 03/25/25 13:04 Fatigue Sulfa (Sulfonamide Allergy Intermediate Blister Verified 03/25/25 13:04 Antibiotics) Inside & Outside Mouth bee venom protein (honey bee) Allergy Unknown Verified 03/25/25 13:04 diazepam Allergy Unknown Nausea & Verified 03/25/25 13:04 Vomiting varenicline AdvReac Unknown Unknown Verified 03/25/25 13:04 Review of Systems Status of ROS: Reports: 6 or more systems reviewed and unremarkable except as noted in History and below [facility] Medical History History of primary malignant neoplasm of left lung (06/2017) ?Z85.118 - Personal history of other malignant neoplasm of bronchus and lung (ICD-10) History of pyloric stenosis ?Z87.19 - Personal history of other diseases of the digestive system (ICD-10) Alcohol dependence in remission ?F10.21 - Alcohol dependence, in remission (ICD-10) COVID-19 ?U07.1 - COVID-19 (ICD-10) Eosinophilic esophagitis ?K20.0 - Eosinophilic esophagitis (ICD-10) Restless leg syndrome ?G25.81 - Restless legs syndrome (ICD-10) Primary hypertension ?I10 - Essential (primary) hypertension (ICD-10) Mixed hyperlipidemia ?E78.2 - Mixed hyperlipidemia (ICD-10) History of acute pancreatitis (08/03/23) ?Z87.19 - Personal history of other diseases of the digestive system (ICD-10) Vitamin D deficiency ?E55.9 - Vitamin D deficiency, unspecified (ICD-10) Allergic rhinitis, seasonal ?J30.2 - Other seasonal allergic rhinitis (ICD-10) Migraines ?G43.909 - Migraine, unspecified, not intractable, without status migrainosus (ICD-10) Urinary incontinence ?R32 - Unspecified urinary incontinence (ICD-10) Peripheral vascular disease ?I73.9 - Peripheral vascular disease, unspecified (ICD-10) GERD (gastroesophageal reflux disease) ?K21.9 - Gastro-esophageal reflux disease without esophagitis (ICD-10) COPD (chronic obstructive pulmonary disease) ?J44.9 - Chronic obstructive pulmonary disease, unspecified (ICD-10) Chronic neck and back pain ?M54.2 - Cervicalgia (ICD-10) ?M54.9 - Dorsalgia, unspecified (ICD-10) ?G89.29 - Other chronic pain (ICD-10) Osteoporosis ?M81.0 - Age-related osteoporosis without current pathological fracture (ICD- 10) Lung nodules ?R91.8 - Other nonspecific abnormal finding of lung field (ICD-10) PTSD (post-traumatic stress disorder) ?F43.10 - Post-traumatic stress disorder, unspecified (ICD-10) Chronic prescription opiate use ?Z79.891 - senior care (current) use of 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 (ICD-10) BREONNA (generalized anxiety disorder) ?F41.1 - Generalized anxiety disorder (ICD-10) Major depression, recurrent ?F33.9 - Major depressive disorder, recurrent, unspecified (ICD-10) Chronic pain syndrome ?G89.4 - Chronic pain syndrome (ICD-10) Surgical History History of lumbar fusion (1995) ?Z98.1 - Arthrodesis status (ICD-10) History of tubal ligation ?Z98.51 - Tubal ligation status (ICD-10) History of left hip hemiarthroplasty (2012) ?Z96.642 - Presence of left artificial hip joint (ICD-10) History of release of tendon (2017) ?Z98.890 - Other specified postprocedural states (ICD-10) History of total bilateral knee replacement ?Z96.653 - Presence of artificial knee joint, bilateral (ICD-10) History of inguinal hernia repair (08/09/22) ?Z98.890 - Other specified postprocedural states (ICD-10) ?Z87.19 - Personal history of other diseases of the digestive system (ICD-10) History of esophageal dilatation (~2012) ?Z98.890 - Other specified postprocedural states (ICD-10) 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) ?Z90.2 - Acquired absence of lung [part of] (ICD-10) Family History Family/Other Drug dependence Mother High blood pressure Heart disease Diabetes Maternal Grandmother Diabetes Other Breast cancer Social History Narrative: , one daughter, retired, smoker, no EtOH What is your current living situation?: I presently have a place to live Problems where you live: no known problems In the past 12 months, utilities in danger of being shut off: no In past 12 months, lack of transportation kept you from medical appts, meetings, work, or getting things needed for daily living: no In the past 12 mos, have been you worried that your food would run out before you had money to buy more?: sometimes true In the past 12 mos, the food you bought just didn't last and you didn't have money to buy more?: sometimes true Smoking Status: Current every day smoker How often do you have a drink containing alcohol: never AUDIT-C Alcohol total score: 0 Non-prescribed substance use: marijuana (any form) How often does anyone, including family, friends and others, physically hurt you : never How often does anyone, including family, friends and others, insult or talk down to you: never How often does anyone, including family, friends and others, threaten you with harm: never How often does anyone, including family, friends and others, scream or curse at you: never Health Related Social Needs: food insecurity (Z59.41) Exam Narrative: Exam Narrative: Pleasant. Clearly anxious, agitated. Ringing her hands and twisting her feet. Is well-perfused. No extremity edema. Cranial nerves 2-12 intact. Pupils are equal at 3 mm. Sore to palpation about the neck generally. Head is atraumatic. Const: Vital Signs, click to edit/add: Vital Signs - 24 hr 03/26/25 22:24 03/27/25 00:22 Temperature 98.0 F 98.7 F Pulse Rate [Right Pulse Oximeter] 89 71 Respiratory Rate 20 18 Blood Pressure [Ri ght Upper Arm] 193/95 H 136/67 Pulse Oximetry 97 96 Oxygen Delivery Me thod Room Air Documenting provider has reviewed patient's vital signs: yes Course Vital Signs Vital signs: Initial Vital Signs Temperature 98.0 F 03/26/25 22:24 Temperature Source Temporal Artery Scan 03/26/25 22:24 Pulse Rate 89 03/26/25 22:24 Respiratory Rate 20 03/26/25 22:24 Blood Pressure 193/95 H 03/26/25 22:24 Blood Pressure Mean 127 H 03/26/25 22:24 Blood Pressure Position Semi-Fowlers 03/26/25 22:24 Pulse Oximetry 97 03/26/25 22:24 Oxygen Delivery Method Room Air 03/26/25 22:24 Vital Signs Temperature 98.0 F 03/26/25 22:24 Pulse Rate 89 03/26/25 22:24 Respiratory Rate 20 03/26/25 22:24 Blood Pressure 193/95 H 03/26/25 22:24 Pulse Oximetry 97 03/26/25 22:24 Oxygen Delivery Method Room Air 03/26/25 22:24 Temperature 98.7 F 03/27/25 00:22 Pulse Rate 71 03/27/25 00:22 Respiratory Rate 18 03/27/25 00:22 Blood Pressure 136/67 03/27/25 00:22 Pulse Oximetry 96 03/27/25 00:22 Oxygen Delivery Method Room Air 03/26/25 22:24 Medications Administered Medications: Discontinued Medications Generic Name Dose Route Start Last Admin Trade Name Freq PRN Reason Stop Dose Admin Diazepam 5 mg 03/26/25 22:51 03/26/25 23:17 Diazepam 5 Mg/Ml Inj IV 03/26/25 22:52 5 mg ONCE ONE Administration Hydromorphone HCl 2 mg 03/26/25 22:51 03/26/25 23:16 Hydromorphone 2 Mg Tablet PO 03/26/25 22:52 2 mg ONCE ONE Administration Sodium Chloride 500 mls @ 500 mls/hr 03/26/25 23:00 03/27/25 00:21 0.9 % Sodium Chloride 500 Ml IV 03/26/25 23:59 Infused .Q1H ONE Infusion Ketorolac Tromethamine 15 mg 03/27/25 00:46 03/27/25 00:54 Ketorolac 30 Mg/Ml Inj IVP 03/27/25 00:47 15 mg ONCE ONE Administration Medical Decision Making MDM Narrative Medical decision making narrative: I do not think should be checking her blood pressures on the hour. Anxiety is surely contributing to hypertensive readings. Arrhythmia? Probably has not seen result of new lisinopril dosing yet. I did propose treating some anxiety. She is requesting pain medication for the neck pain in particular. Suggests also that oxycodone tends to cause headaches. I doubt that this headache represents hypertensive encephalopathy; appears to be mentating normally otherwise. Can check labs though for baseline given medication changes. Also EKG. EKG reassuring as below. Did give oral 2 mg Dilaudid single dose and Valium IV and fluid bolus. On reassessment blood pressure has dropped appropriately. Clearly more calm. She did still have headache and would accept dosing of ketorolac. Says she used to receive regular dosings of benzodiazepine but says that this was discontinued due to concerns of combining with opiates. She says she would not do that. She is asking what we will do for her anxiety. I think treating her anxiety is going to be multifactorial here. This has been a lifelong problem. I can give a couple tabs of lorazepam from the emergency department and prescribed a few more. Quantities available InstyMeds I think are too many to be prescribed from the emergency department in this case. Labs are unremarkable. See patient discharge plan for further discussion Your last blood pressure here looked pretty good. Do not expect lisinopril to work immediately. I do think that your elevated blood pressures are also partly related to pain and anxiety. I would not be checking your blood pressures on the hour. Would consider checking once or maaaaybe twice daily after a period of rest. As discussed, I am sending you with 2 tabs of lorazepam and sending in some more to your pharmacy. If needed, more of this kind of medication will need to come from your primary care provider. Lab Data Lab results reviewed: Yes I reviewed the patient's lab results Labs: Lab Results 03/26/25 03/26/25 Range/Units 22:51 23:25 WBC 7.95 (4.50-11.00) K/uL RBC 4.46 (4.00-5.20) m/uL Hgb 12.3 (12.0-16.0) gm/dL Hct 38.1 (33.0-51.0) % MCV 85 (80-100) fL MCH 28 (26-34) pg MCHC 32 (32-36) gm/dL RDW Coeff of Chung 13.6 (11.5-15.5) % Plt Count 292 (140-440) K/uL Neut % (Auto) 65.1 (42.0-72.0) % Lymph % (Auto) 25.8 (20-44) % Cocke % (Auto) 5.0 (0.0-11.0) % Eos % (Auto) 3.0 (0.0-7.0) % Baso % (Auto) 0.3 (0.0-3.0) % Neut # (Auto) 5.18 (1.7-7.0) K/uL Lymph # (Auto) 2.05 (0.90-2.90) K/uL Cocke # (Auto) 0.40 (0.00-0.90) K/UL Eos # (Auto) 0.24 (0.00-0.50) K/uL Baso # (Auto) 0.02 (0.00-0.30) K/uL Abs Immat Gran (auto) 0.06 (0.00-0.30) K/uL Imm/Tot Granulo (auto) 0.8 % Sodium 139 (135-149) mmol/L Potassium 3.4 L (3.6-5.1) mmol/L Chloride 105 (96-114) mmol/L Carbon Dioxide 28 (20-32) mmol/L Anion Gap 6 L (7-15) mEq/L BUN 13 (7-30) mg/dL Creatinine 0.6 (0.5-1.5) mg/dL Estimated Creat Clear 38.37 Estimated GFR 95 ml/min Glucose 91 (60-115) mg/dL Calcium 8.7 (8.4-10.6) mg/dL Lactate Dehydrogenase 162 (120-246) U/L Troponin I < 0.01 (0.01-0.04) ng/mL POC Troponin I 0.02 (0.01-0.04) ng/ml ECG Data Attestation: I personally reviewed and interpreted this ECG as follows: (Normal sinus rhythm. QTC of 499. Rate of 72 ) Discharge Plan Discharge Clinical Impression: High blood pressure, Anxiety Patient Disposition: Home w/ Parent or Adult Condition: Improved Additional Instructions: Your last blood pressure here looked pretty good. Do not expect lisinopril to work immediately. I do think that your elevated blood pressures are also partly related to pain and anxiety. I would not be checking your blood pressures on the hour. Would consider checking once or maaaaybe twice daily after a period of rest. As discussed, I am sending you with 2 tabs of lorazepam and sending in some more to your pharmacy. If needed, more of this kind of medication will need to come from your primary care provider. Prescriptions: New lorazepam 1 mg tablet 0.5 - 1 mg PO .bid - tid PRNQty: 4 0RF No Action albuterol-budesonide 90-80 mcg/actuation HFA aerosol inhaler 2 inh inhalation ONCE PRN Rx Instructions: as a single dose; may repeat up to 6 doses per day (12 inhalations) ipratropium-albuterol 0.5 mg-3 mg(2.5 mg base)/3 mL solution for nebulization 3 ml inhalation Q4-6H PRN Eliquis 5 mg tablet 5 mg PO BID Qty: 180 3RF cetirizine [Zyrtec] 10 mg tablet 10 mg PO QDAY Qty: 90 3RF potassium chloride 10 mEq tablet extended release 10 meq PO BID oxycodone-acetaminophen 10-325 mg tablet 1 tab PO QID PRN (Reason: pain) lorazepam 1 mg tablet 0.5 - 1 mg PO BID PRN (Reason: anxiety) Qty: 60 0RF fluticasone propionate [Flonase Allergy Relief] 50 mcg/actuation spray,suspension 1 spray intranasal QDAY Qty: 16 5RF Rx Instructions: administer into each nostril hydroxyzine HCl 25 mg tablet 25 mg PO QID PRN (Reason: anxiety) Qty: 120 5RF naloxone 1 mg/mL syringe 1 mg IM ONCE Qty: 2 5RF escitalopram oxalate 20 mg tablet 20 mg PO QDAY Qty: 90 3RF lisinopril-hydrochlorothiazide 10-12.5 mg tablet 1 tab PO QDAY Qty: 90 0RF omeprazole 40 mg capsule,delayed release(DR/EC) 40 mg PO QDAY Qty: 90 3RF ropinirole 2 mg tablet 2 mg PO BID Qty: 180 1RF Rx Instructions: administer 1-3 hours before bedtime venlafaxine [Effexor XR] 150 mg capsule,extended release 24hr 150 mg PO QDAY Qty: 90 3RF nystatin 100,000 unit/mL suspension 500,000 unit PO TID 10 Days Qty: 150 0RF Rx Instructions: swish and swallow ondansetron 8 mg tablet,disintegrating 8 mg PO Q8H PRN (Reason: nausea and vomiting) Qty: 30 0RF albuterol sulfate 2.5 mg /3 mL (0.083 %) solution for nebulization 2.5 mg inhalation Q4-6H PRN (Reason: shortness of breath or wheezing) Qty: 90 5RF czchdgejkl-nntbxhbq-gquaoflxqt 160-9-4.8 mcg/actuation HFA aerosol inhaler 2 inh inhalation BID Qty: 10.7 5RF prazosin 2 mg capsule 6 mg PO QHS Qty: 270 1RF buspirone 30 mg tablet 30 mg PO TID Qty: 90 2RF atorvastatin 40 mg tablet 40 mg PO QHS Qty: 90 0RF cyclobenzaprine 10 mg tablet 10 mg PO QHS PRN (Reason: muscle spasm) Qty: 90 1RF Follow Up/Referrals: Addison Chapin MD [Primary Care Provider, Family Practice] Stand Alone Forms: [facility] Info Instructions
--- OUTSIDE RECORDS SUMMARY | 2025-03-26 23:04 | XMS_ITS | Clinical Summary ---
Author Organization [facility] Address [address] [place] [address] Care Team Providers Care Electrical Software Engineer Name Role Phone Addison Chapin MD Primary Care Provider [phone] Allergies Active Allergy Reactions Criticality Noted Date [...] calendar year) 2024 COVID-19 VACCINE ( season) 2025 03/26/2024, 04/22/2023, 12/18/2022, Additional history exists INFLUENZA VACCINE (#1) 2025 03/26/2024, 2022 DTAP/TDAP/TD VACCINE (4 - Td or Tdap) 12/29/2026 12/29/2016, 01/29/2013, 04/15/2009 PNEUMOCOCCAL VACCINE 50+ YEARS Completed 12/18/2022, 03/12/2022, 06/15/2016, Additional history exists RSV VACCINE Completed 03/03/2023 HPV VACCINE (No Doses Required) Completed MENINGITIS VACCINE Aged Out No longer eligible based on patient's age to complete this topic Insurance [employer] D[employer] [facility] [employer] [facility] Care Teams Electrical Software Engineer Relationship Specialty Start Date End Date Addison Chapin MD [facility] 1981 . [place] [address] PCP - General Family Medicine 06/22/24
--- OUTSIDE RECORDS SUMMARY | 2025-03-26 23:04 | XMS_ITS | Clinical Summary ---
Author Organization [employer] [facility] Address [address] [place] [id number] Care Team Providers Care Room Service Bellhop Name Role Phone Pcp, No Primary Care [...] COVID-19 vaccine series ( - 2023- season) 2025 Influenza Vaccine (#1) 2025 RSV vaccine for adults or (1 - 1-dose 75+ series) 02/29/2028 Hepatitis B series for 19+ Aged Out N o longer eligible based on patient's age to complete this topic Insurance [address] [place] [id number] [facility] MEDICAID Care Teams Room Service Bellhop Relationship Specialty Start Date End Date Pcp, No . PCP - General 04/16/24
--- OUTSIDE RECORDS SUMMARY | 2025-03-26 23:04 | XMS_ITS | Clinical Summary ---
Author Organization [facility] Address [address] [place] [address] Care Team Providers Care Motor Coach Operator Name Role Phone Addison Chapin MD Primary Care Provider + Margaret Deal PA-C Unavailable [phone] Allergies Active Allergy Reactions Criticality Noted Date [...] on file Legal Sex Female 11:21 AM BACK [employer] Gender Identity Not on file Sexual Orientation [...] of HCD 2003 COVID-19 Vaccine ( season) 2025 03/26/2024, 04/22/2023, 05/19/2022, Additional history exists Influenza Vaccine (#1) 2025 03/03/2023 Adult Tetanus Booster 12/29/2026 12/29/2016 , 01/29/2013, 04/15/2009 Pneumococcal 50+ Years Completed , 03/12/2022, 06/15/2016, Additional history exists RSV Vaccines Completed 03/03/2023 Zoster Vaccine Completed 07/06/2024, 03/19/2020 Meningococcal B Vaccine Aged Out No l onger eligible based on patient's age to complete this topic Insurance [address] [facility] [place] [id number] [facility] Care Teams Motor Coach Operator Relationship Specialty Start Date End Date Addison Chapin MD [address] [place] [address] PCP - General Family Medicine 08/01/24 Margaret Deal PALizetC [address] [place] [address] [address] [place] [address] Neurology 08/01/24
[2025-03-26] MEDS: diazePAM 5 MG/ML inj IV (23:17)
[2025-03-26] MEDS: 0.9 % SODIUM CHLORIDE 500 ML 500 ML IV (23:21)
[2025-03-26 23:34] LABS: Hematocrit* 38.1 % (33.0-51.0); Hemoglobin* 12.3 gm/dL (12.0-16.0); Immature Granulocytes Abs Auto 0.06 K/uL (0.00-0.30); Immature Granulocytes Pct Auto 0.8 %; Lymphocytes Absolute Auto 2.05 K/uL (0.90-2.90); Mean Corpuscular HGB Conc 32 gm/dL (32-36); Mean Corpuscular Hemoglobin 28 pg (26-34); Mean Corpuscular Volume 85 fL (80-100); RDW Coefficient of Variation % 13.6 % (11.5-15.5); Red Blood Count* 4.46 m/uL (4.00-5.20); White Blood Count* 7.95 K/uL (4.50-11.00)
[2025-03-26 23:37] LABS: Slide Review Reflex No
[2025-03-26 23:48] LABS: Chloride* 105 mmol/L (96-114); Potassium* 3.4 mmol/L (3.6-5.1); Sodium* 139 mmol/L (135-149)
[2025-03-26 23:51] LABS: Anion Gap 6 mEq/L (7-15); Blood Urea Nitrogen* 13 mg/dL (7-30); Calcium* 8.7 mg/dL (8.4-10.6); Carbon Dioxide* 28 mmol/L (20-32); Creatinine* 0.6 mg/dL (0.5-1.5); Est. Creatinine Clearance* 38.37; Estimated Glomerular Filt Rate 95 ml/min; Glucose* 91 mg/dL (60-115)
[2025-03-27 00:04] LABS: Troponin, Point-of-Care* 0.02 ng/ml (0.01-0.04)
[2025-03-27 00:22] VITALS: BP 136/67; PULSE 71; RESP 18; TEMP 37.1; O2SAT 96
== END 2025-03-27 01:04 | disposition home or self-care (01) ==
PROVIDERS: Emergency Provider Family Medicine; PCP Family Medicine
DX: I10 Essential (primary) hypertension (principal); F41.9 Anxiety disorder, unspecified
CPT/HCPCS: 36415; 80048; 81001; 83615; 84484; 85025; 93005; 96374; 96375; 99284; A9270; J1885; J3360; J7030

== ENCOUNTER 2025-06-24 13:17 | Outpatient (CLI) | payer BC, SELFPAY | END 2025-06-24 13:18 | disposition home or self-care (01) | PROVIDERS: PCP Family Medicine; Visit Provider Family Medicine | DX: E78.2 Mixed hyperlipidemia (principal); I10 Essential (primary) hypertension | CPT/HCPCS: 80048; 80061; 83735; 84460; 85025 ==

== ENCOUNTER 2025-06-24 23:05 | Emergency (ER) | payer BC, SELFPAY ==
--- OUTSIDE RECORDS SUMMARY | 2025-06-05 03:15 | XMS_ITS | Continuity of Care Document ---
Author Organization [facility] Address [address] [place] [id number] Phone Care Team Providers Care Plumber Assistant Name Role Phone [facility] Unavailable Unava ilable Procedures Procedure Date INTERLAMINAR LMBR OR SAC No Charge For Visit Per Prov No Charge For Visit Per Prov INJ FORAMEN EPIDURAL C/T INTERLAMINAR LMBR OR SAC Advance Directives Directive Yes / No Effective Date File Name No Information Encounters Encounter Description Practice Location Reason(s) For Visit Diagnoses Date Provider Providers Copied on Encounter [facility], [address] [place] [address], [id number], tel:[phone] [place] [address] No Information 5 [facility]. [address] [place] [address], [id number], [place]. tel:[phone] Referring Provider: Jimmie Kim, [address], [place], [address] . tel:[phone] [facility], [address] [place] [address], [id number], tel:[phone] [place] [address] No Information 5 [facility]. [address] [place] [address], [id number], . tel:[phone] Referring Provider: Jimmie Kim [address], [place], [address] . tel:[phone] [facility], [address] [place] [address], [id number], tel:[phone] [place] [address] No Information Sep-0 5 [facility]. [address] [place] [address], [id number], [place]. tel:[phone] Referring Provider: Mesfin Enamorado, [address] [facility], [place], [address] . tel:[phone] [facility], [address] [place] [address], [id number], [place] tel:[phone] [place] [address] No Information Jonn-2 5 [facility]. [address] [place] [address], [id number], [place]. tel:[phone] Referring Provider: Jimmie Kim, [address], [place], [address] . tel:[phone] Family History Family Member Type Diagnosis Age At Onset No Information Payers Payer name Insurance type Covered libertarian ID Authorsuea stephanieleidy(s) [employer] [facility] Dual 16 [id number] Social History Type Description Quantity Date Captured [...]
--- OUTSIDE RECORDS SUMMARY | 2025-06-05 03:15 | XMS_ITS | Continuity of Care Document ---
Author Organization [facility] enter Address [address] [place] [address] Phone Care Team Providers Care Relief Pilot Name Role Phone [facility] Unavailable Unava ilable Procedures Procedure Date INTERLAMINAR LMBR OR SAC No Charge For Visit Per Prov No Charge For Visit Per Prov INJ FORAMEN EPIDURAL C/T INTERLAMINAR LMBR OR SAC Advance Directives Directive Yes / No Effective Date File Name No Information Encounters Encounter Description Practice Location Reason(s) For Visit Diagnoses Date Provider Providers Copied on Encounter [facility], [address] [place] [address], [id number], tel:[phone] [place] [address] No Information 5 [facility]. [address] [place] [address], [id number], [place]. tel:[phone] Referring Provider: Jimmie Kim, [address], [place], [address] . tel:[phone] [facility], [address] [place] [address], [id number], tel:[phone] [place] [address] No Information 5 [facility]. [address] [place] [address], [id number], . tel:[phone] Referring Provider: Jimmie Kim [address], [place], [address] . tel:[phone] [facility], [address] [place] [address], [id number], tel:[phone] [place] [address] No Information Sep-0 5 [facility]. [address] [place] [address], [id number], [place]. tel:[phone] Referring Provider: Mesfin Enamorado, [address] [facility], [place], [address] . tel:[phone] [facility], [address] [place] [address], [id number], [place] tel:[phone] [place] [address] No Information Jonn-2 5 [facility]. [address] [place] [address], [id number], [place]. tel:[phone] Referring Provider: Jimmie Kim, [address], [place], [address] . tel:[phone] Family History Family Member Type Diagnosis Age At Onset No Information Payers Payer name Insurance type Covered green party ID Authorsuea [email or web address](s) Blue Plus [facility] Dual 16 [id number] Social History Type Description Quantity Date Captured [...]
--- OUTSIDE RECORDS SUMMARY | 2025-06-24 02:51 | XMS_ITS | Continuity of Care Document ---
Author Organization [facility] Address [address] [facility] [place] [address] Phone Care Team Providers Care Hide Buyer Name Role Phone Rica TAMANNA Zita Unavailable Unavailable Allergies, Adverse Reactions, Alerts Substance Reaction Status Criticality Sulfa (Sulfonamide Antibiotics) Active No Information PENICILLIN Active No Information Medications Medication Instructions Dosage Effective Dates (start - stop) Status Comments CLONIDINE 0.1MG TABLETS TAKE 1 TABLET BY MOUTH ONCE DAILY NEEDED FOR POSSIBLE WITHDRAWAL - Active clindamycin HCl 300 mg capsule take 1 capsule by oral route 3 times every day for 10 days. Start 4 hours after surgery. - Active mupirocin 2 % topical ointment apply intranasally 2 times a day for 5 days prior to surgery - Active Narcan 4 mg/actuation nasal spray spray 0.1 milliliter by intranasal route in 1 nostril may repeat dose every 2-3 minutes as needed alternating nostrils with each dose 4 MG - Active hydrochlorothiazide 12.5 mg tablet take 1 tablet by oral route every day 12.5 MG - Active lisinopril 10 mg tablet take 1 tablet by oral route every day 10 MG - Active albuterol sulfate concentrate 2.5 mg/0.5 mL solution [...] route every day 40 MG - Active omeprazole 40 mg capsule,delayed release take 1 capsule by oral route every day before a meal 40 MG - Active CLONIDINE 0.1MG TABLETS TAKE 1 TABLET BY MOUTH DAILY NEEDED FOR POSSIBLE WITHDRAWAL - No Longer Active Procedures Procedure Date INTERLAMINAR LMBR OR SAC No Charge For Visit Per Prov OFFICE/OUTPATIENT VISIT, EST Complex E/m Visit Add On PT EVAL MOD COMPLEX 30 MIN No Charge For Visit Per Prov OFFICE/OUTPATIENT VISIT, EST Drug Urine Toxology With Chromatography Drug test def 1-7 classes OFFICE VISIT, EST TELEMEDICINE INJ FORAMEN EPIDURAL C/T OFFICE VISIT, EST TELEMEDICINE OFFICE VISIT, EST TELEMEDICINE INTERLAMINAR LMBR OR SAC OR CAUDAL OFFICE/OUTPATIENT VISIT, EST OFFICE/OUTPATIENT VISIT, EST Drug test def 8-14 classes Drug Urine Toxology With Chromatography Inj anes agt/steroid; gen enoch nevarezw/von jhaveri OFFICE/OUTPATIENT VISIT, EST OFFICE/OUTPATIENT VISIT, EST Drug [...] Diagnoses Date Provider Providers Copied on Encounter [facility], [address] [place] [address], [id number] , [place] tel:[phone] [facility] [place] No Information 5 Nyongesa Zita. [address] [facility] [address], [place], [id number], [place]. tel:[phone] [facility], [address] [place] [address], [id number] , [place] [phone] [facility] No Information 5 Nyongesa Zita. [address] [facility] [address], [place], [id number], [place]. tel:[phone] [facility], [address] [place] [address], [id number] , [place] tel:[phone] [facility] Postlaminectom y syndrome, not elsewhere classified 5 Nyongesa Zita. [address] [facility] [address], [place], [id number], [place]. tel:[phone] Referring Provider: Steve Montes, [address] [place], [place] [address], [address] . tel:[phone] [facility], [address] [place] [address], [id number] , [place] tel:[phone] [facility] [place] No Information 5 Nyongesa Zita. [address] [facility] [address], [place], [id number], [place]. tel:[phone] [facility], [address] [place] [address], [id number] , [place] tel:[phone] [facility] Postlaminectom y syndrome, not elsewhere classified 5 Julio Samuel. [address], [address], [place], [place], [id number], [place]. [phone] Referring Provider: Steve Montes, [address] [place] [address] [place], [address] . tel:[phone] [facility], [address] [place] [address], [id number] , [place] tel:[phone] [facility] Postlaminectom y syndrome, not elsewhere classified 5 Julio Samuel. [address], [address], [place], [place], [id number], [place]. [phone] [facility], [address] [place] [address], [id number] , [place] tel: [phone] [place] [address] No Information 5 Julio Samuel. [address], [address], [place], [place], [id number], [place]. [phone] Referring Provider: Steve Montes, [address] [place], [place] [address], [address] . tel:[phone] OFFICE/OUTPAT IENT VISIT, EST [facility], [address] [place] [address], [id number] , [place] tel:[phone] [facility] [place] Widespread pain (chief complaint) Radiculopathy, cervical regionLong term (current) use of 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Chron ic pain syndromePostla minectomy syndrome, not elsewhere classifiedPain in right knee [address]ada[address], [place], [place], [id number], [place]. tel:[phone] Referring Provider: Steve Montes, [address] [place] [address] [place], [address] . tel:[phone] [facility], [address] [place] [address], [id number] , [place] tel:[phone] [facility] widespread pain (chief complaint) Radiculopathy, lumbar regionPostlami nectomy syndrome, not elsewhere classified 5 Juliana Dutta. [address] [place] [address], [id number], [place]. tel:[phone] Referring Provider: Steve Montes, [address] [place], [place] [address], [address] . tel:[phone] [facility], [address] [place] [address], [id number] , [place] tel:[phone] [facility] Post-traumatic stress disorder 5 Rae Puentes. [address] [place] [address], [id number], [place]. tel:[phone] OFFICE/OUTPAT IENT VISIT, EST [facility], [address] [place] [address], [id number] , [place] tel:[phone] [facility] Widespread pain (chief complaint) Radiculopathy, cervical regionLong term (current) use of 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Chron ic pain syndromePostla minectomy syndrome, not elsewhere classifiedPain in right kneeEncounter for therapeutic drug level monitoring 5 Julia Zita. [address] [facility] [address], [place], [place], [id number], [place]. tel:[phone] Referring Provider: Steve Montes, [address] [place], [place] [address], [address] . tel:[phone] OFFICE VISIT, EST TELEMEDICINE [facility], [address] [place] [address], [id number] , [place] tel:[phone] [facility] [place] Widespread pain (chief complaint) Radiculopathy, cervical regionChronic pain syndromeLong term (current) use of 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Postl aminectomy syndrome, not elsewhere classifiedRadi culopathy, lumbar regionPain in right knee 5 Lexi Kin[address]. [address], [place], [place], [id number], [place]. tel:[phone] [facility], [address] [place] [address] [place], [id number] , [place] [phone] [facility] Radiculopathy, cervical region Sep-0 5 Kelsea Toure. [address] [facility] [place], [place], [place], [id number], [place]. tel:[phone] Referring Provider: Steve Montes, [address] [place] [address] [place], [address] . tel:[phone] OFFICE VISIT, EST TELEMEDICINE [facility], [address] [place] [address], [id number] , [place] [phone] [facility] Widespread pain (chief complaint) Radiculopathy, cervical regionChronic pain syndromeLong term (current) use of 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Postl aminectomy syndrome, not elsewhere classifiedRadi culopathy, lumbar regionPain in right knee 5 Lexi Kinney. [address], [place], [place], [id number], [place]. tel:[phone] Referring Provider: Steve Montes, [address] [place] [address] [place], [address] . tel:[phone] OFFICE VISIT, EST TELEMEDICINE [facility], [address] [place] [address], [id number] , [place] [phone] [facility] [place] Neck Pain (chief complaint)L eg Pain (chief complaint) Radiculopathy, cervical regionChronic pain syndromeLong term (current) use of 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Postl aminectomy syndrome, not elsewhere classifiedRadi culopathy, lumbar regionPain in right knee 5 Brunoeva Kinney. [address], [address], [place], [place], [id number], [place]. tel:[phone] [facility], [address] [place] [address], [id number] , [place] tel:[phone] [facility] Radiculopathy, lumbar region 5 Julio Samuel. [address], [address], [place], [place], [id number], [place]. tel:[phone] Referring Provider: Steve Montes, [address] [place] [address] [place], [address] . tel:[phone] OFFICE/OUTPAT IENT VISIT, [facility], [address] [place] [address], [id number] , [place] [phone] [facility] Widespread pain (chief complaint) Radiculopathy, cervical regionChronic pain syndromeLong term (current) use of 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Postl aminectomy syndrome, not elsewhere classifiedRadi culopathy, lumbar regionPain in right knee Radha Ferrer. [address] [facility], [place], [place], [id number], [place]. tel:[phone] Referring Provider: Steve Montes, [address] [place] [address] [place], [address] . tel:[phone] OFFICE/OUTPAT IENT VISIT, [facility], [address] [place] [address], [id number] , [place] [phone] [facility] Widespread pain (chief complaint) Radiculopathy, cervical regionPain in left kneeChronic pain syndromeLong term (current) use of 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Postl aminectomy syndrome, not elsewhere classifiedRadi culopathy, lumbar regionPain in right kneeEncounter for therapeutic drug level monitoring 5 Rica Ahumada. [address], [place], [place], [id number], [place]. tel:[phone] Referring Provider: Steve Montes, [address] [place] [address] [place], [address] . tel:[phone] [facility], [address] [place] [address], [id number] , [place] tel:[phone] [facility] Pain in right knee May-0 5 Mariana Bryson. [address] [place], [place], [id number], [place]. tel:[phone] Referring Provider: Steve Montes, [address] [place] [address] [place], [address] . tel:[phone] OFFICE/OUTPAT IENT VISIT, [facility], [address] [place] [address], [id number] , [place] [phone] [facility] Widespread pain (chief complaint) Chronic pain syndromePostla minectomy syndrome, not elsewhere classifiedRadi culopathy, cervical regionPain in left kneeLong term (current) use of 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Pain in right kneeRadiculopa thy, lumbar region Apr-3 0- 5 Nyongesa Zita. [address] [facility] [address], [place], [place], [id number], [place]. tel:[phone] Referring Provider: Steve Montes, [address] [place], [place] [address], [address] . tel:[phone] OFFICE/OUTPAT IENT VISIT, [facility], [address] [place] [address], [id number] , [place] [phone] [facility] Widespread pain (chief complaint) Chronic pain syndromePostla minectomy syndrome, not elsewhere classifiedLong term (current) use of 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Radic ulopathy, cervical regionPain in left kneeEncounter for therapeutic drug level monitoring Apr-0 - 5 Nyongesa Zita. [address] [facility] [address], [place], [place], [id number], [place]. tel:[phone] Referring Provider: Steve Montes, [address] [place], [place] [address], [address] . tel:[phone] OFFICE/OUTPAT IENT VISIT, [facility], [address] [place] [address], [id number] , [place] tel:[phone] [facility] Neck Pain (chief complaint) Chronic pain syndromePostla minectomy syndrome, not elsewhere classifiedLong term (current) use of 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Radic ulopathy, cervical regionPain in left kneePain in right knee 5 Julio Samuel. [address] [address] [facility] [address], [address], [place], [id number], [place]. tel:[phone] Referring Provider: Steve Montes, [address] [place], [place] [address], [address] . tel:[phone] OFFICE/OUTPAT IENT VISIT, [facility], [address] [place] [address], [id number] , [place] [phone] [facility] neck and low back pain (chief complaint) Chronic pain syndromePostla minectomy syndrome, not elsewhere classifiedLong term (current) use of 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Radic ulopathy, cervical region 5 Mariposa Delgado. [address] [facility] [address], [place], [id number], [place]. tel:[phone] Referring Provider: Steve Montes, [address] [place], [place] [address], [address] . tel:[phone] OFFICE VISIT, EST [facility], [address] [place] [address], [id number] , [place] tel:[phone] [facility] neck pain and low back pain (chief complaint) Chronic pain syndromePostla minectomy syndrome, not elsewhere classifiedLong term (current) use of 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Radic ulopathy, cervical region 5 Rica Ahumada. [address] [facility] [address], [id number], [place]. tel:[phone] OFFICE/OUTPAT IENT VISIT, [facility], [address] [place] [address], [id number] , [place] tel:[phone] [facility] Back Pain (chief complaint) DepressionChro isis pain syndromePostla minectomy syndrome, not elsewhere classifiedLong term (current) use of 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Radic ulopathy, cervical region 4 [facility] Zita. [address], [id number], [place]. tel:[phone] Referring Provider: Steve Montes, [address] [facility] [place], [address] . tel:[phone] OFFICE/OUTPAT IENT VISIT, [facility], [address] [place] [address], [id number] , [place] tel:[phone] [facility] [place] Back Pain (chief complaint) DepressionChro isis pain syndromePostla minectomy syndrome, not elsewhere classifiedLong term (current) use of 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Cervi calgia 4 [facility] Zita. [address], [id number], [place]. tel:[phone] Referring Provider: Steve Montes, [address] [facility] [place], [address] . tel:[phone] OFFICE/OUTPAT IENT VISIT, [facility], [address] [place] [address], [id number] , [place] tel:[phone] [facility] Widespread pain (chief complaint) Chronic pain syndromePostla minectomy syndrome, not elsewhere classifiedLong term (current) use of 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Cervi calgiaDepressi onEncounter for therapeutic drug level monitoring 4 [facility] Zita. [address], [id number], [place]. tel:[phone] Referring Provider: Steve Montes, [address] [place], [address] . tel:[phone] Family History Family Member Type Diagnosis Age At Onset No Information Payers Payer name Insurance type Covered republican ID Bill mercedes(s) Blue Plus [facility] Dual 16 [id number] Social History Type Description Quantity Date Captured Comments Sex Female Smoking Status No Information Chief Complaint And Reason For Visit No Information Reason For Referral Reason For Referral No Information Plan Of Treatment Date Type Action Status Goal PHQ-9. Due on du e Goal Weight. Due on d ue Goal FIT. Due on due Goal Medication Reconciliation. D ue on due Goal Review Allergy List. Due on due Goal Height. Due on d ue Goal Zoster vaccine (). Due on due Goal FIT-DNA. Due on due Goal Tobacco Use. Due on due Goal CT-Colonography. Due on due Goal Update Social History. Due o n due Goal Unhealthy drug use screening . Due on due Goal Tobacco screening. Due on due Goal Hepatitis C screening. Due o n due Goal ALT (SGPT). Due on due Goal UDT. Due on due Goal SCRAP HOOKER Paperwork. Due on due Goal Order Annual PT. Due on due Goal AST (SGOT). Due on due Goal OARS. Due on due Goal Creatinine. Due on due Goal DIRECTOR OF RECRUITMENT Scanned. Due on due Goal AST (SGOT). Due on due Goal SCRAP HOOKER Paperwork. Due on due Goal DIRECTOR OF RECRUITMENT Scanned. Due on due Goal Height. Due on d ue Goal Update Social History. Due o n due Goal FIT-DNA. Due on due Goal Unhealthy drug use screening . Due on due Goal Hepatitis C screening. Due o n due Goal Review Allergy List. Due on due Goal Medication Reconciliation. D ue on due Goal FIT. Due on due Goal Weight. Due on d ue Goal Tobacco screening. Due on Oc due Goal PHQ-9. Due on du e Goal UDT. Due on due Goal Creatinine. Due on due Goal OARS. Due on due Goal Order Annual PT. Due on due Goal ALT (SGPT). Due on due Goal Tobacco Use. Due on due Goal Zoster vaccine (1st). Due on due Goal CT-Colonography. Due on due Goal UDT. Due on due Goal DIRECTOR OF RECRUITMENT Scanned. Due on due Goal PHQ-9. Due on du e Goal FIT. Due on due Goal Tobacco Use. Due on due Goal Zoster vaccine (1st). Due on due Goal Update Social History. Due o n due Goal Review Allergy List. Due on due Goal OARS. Due on due Goal Creatinine. Due on due Goal Order Annual PT. Due on due Goal ALT (SGPT). Due on due Goal AST (SGOT). Due on due Goal SCRAP HOOKER Paperwork. Due on due Goal FIT-DNA. Due on due Goal Weight. Due on d ue Goal Medication Reconciliation. D ue on due Goal Hepatitis C screening. Due o n due Goal Unhealthy drug use screening . Due on due Goal CT-Colonography. Due on due Goal Tobacco screening. Due on Oc due Goal Height. Due on d ue Goal DIRECTOR OF RECRUITMENT Scanned. Due on due Goal Tobacco screening. Due on Oc due Goal ALT (SGPT). Due on due Goal AST (SGOT). Due on due Goal Creatinine. Due on due Goal SCRAP HOOKER Paperwork. Due on due Goal OARS. Due on due Goal Order Annual PT. Due on due Goal UDT. Due on due Goal CT-Colonography. Due on due Goal Unhealthy drug use screening . Due on due Goal Height. Due on d ue Goal Update Social History. Due o n due Goal Review Allergy List. Due on due Goal Weight. Due on d ue Goal FIT-DNA. Due on due Goal Zoster vaccine (1st). Due on due Goal Medication Reconciliation. D ue on due Goal PHQ-9. Due on du e Goal FIT. Due on due Goal Tobacco Use. Due on due Goal Hepatitis C screening. Due o n due Goal PHQ-9. Due on du e Goal Zoster vaccine (1st). Due on due Goal CT-Colonography. Due on due Goal Tobacco screening. Due on Oc due Goal Update Social History. Due o n due Goal Hepatitis C screening. Due o n due Goal FIT. Due on due Goal Review Allergy List. Due on due Goal Tobacco Use. Due on due Goal OARS. Due on due Goal SCRAP HOOKER Paperwork. Due on due Goal Creatinine. Due on due Goal ALT (SGPT). Due on due Goal AST (SGOT). Due on due Goal DIRECTOR OF RECRUITMENT Scanned. Due on due Goal Order Annual PT. Due on due Goal UDT. Due on due Goal Unhealthy drug use screening . Due on due Goal FIT-DNA. Due on due Goal Height. Due on d ue Goal Medication Reconciliation. D ue on due Goal Weight. Due on d ue Goal Order Annual PT. Due on due Goal Height. Due on d ue Goal Creatinine. Due on due Goal UDT. Due on due Goal AST (SGOT). Due on due Goal ALT (SGPT). Due on due Goal SCRAP HOOKER Paperwork. Due on due Goal OARS. Due on due Goal DIRECTOR OF RECRUITMENT Scanned. Due on due Goal Review Allergy List. Due on due Goal FIT-DNA. Due on due Goal Unhealthy drug use screening . Due on due Goal Weight. Due on d ue Goal CT-Colonography. Due on due Goal Medication Reconciliation. D ue on due Goal Tobacco screening. Due on due Goal Hepatitis C screening. Due o n due Goal Zoster vaccine (). Due on due Goal Tobacco Use. Due on due Goal Update Social History. Due o n due Goal PHQ-9. Due on du e Goal FIT. Due on due Goal Tobacco Use. Due on due Goal Zoster vaccine (). Due on due Goal Update Social History. Due o n due Goal Review Allergy List. Due on due Goal FIT-DNA. Due on due Goal PHQ-9. Due on du e Goal Medication Reconciliation. D ue on due Goal Unhealthy drug use screening . Due on due Goal Height. Due on d ue Goal CT-Colonography. Due on due Goal Tobacco screening. Due on due Goal FIT. Due on due Goal Weight. Due on d ue Goal Hepatitis C screening. Due o n due Goal UDT. Due on due Goal Order Annual PT. Due on due Goal SCRAP HOOKER Paperwork. Due on due Goal DIRECTOR OF RECRUITMENT Scanned. Due on due Goal OARS. Due on due Goal ALT (SGPT). Due on due Goal AST (SGOT). Due on due Goal Creatinine. Due on due Goal Medication Reconciliation. D ue on due Goal Tobacco screening. Due on due Goal Weight. Due on d ue Goal DIRECTOR OF RECRUITMENT Scanned. Due on due Goal ALT (SGPT). Due on due Goal Creatinine. Due on due Goal OARS. Due on due Goal SCRAP HOOKER Paperwork. Due on due Goal Order Annual PT. Due on due Goal AST (SGOT). Due on due Goal UDT. Due on due Goal Unhealthy drug use screening . Due on due Goal Review Allergy List. Due on due Goal FIT-DNA. Due on due Goal Tobacco Use. Due on due Goal CT-Colonography. Due on due Goal Update Social History. Due o n due Goal Hepatitis C screening. Due o n due Goal Zoster vaccine (1st). Due on due Goal PHQ-9. Due on du e Goal FIT. Due on due Goal Height. Due on d ue Goal Hepatitis C screening. Due o n due Goal FIT. Due [...] Goal AST (SGOT). Due on due Goal DIRECTOR OF RECRUITMENT Scanned. Due on due Goal Unhealthy drug use screening . Due on due Goal Creatinine. Due on due Goal SCRAP HOOKER Paperwork. Due on due Goal UDT. Due on due Goal OARS. Due on due Goal ALT (SGPT). Due on due Goal CT-Colonography. Due on due Goal Zoster vaccine (). Due on due Goal Tobacco screening. Due [...] Zoster vaccine (). Due on due Goal ALT (SGPT). Due on due Goal AST (SGOT). Due on due Goal Creatinine. Due on due Goal UDT. Due on due Goal SCRAP HOOKER Paperwork. Due on due Goal DIRECTOR OF RECRUITMENT Scanned. Due on due Goal Order Annual PT. Due on due Goal OARS. Due on due Goal Creatinine. Due on due Goal SCRAP HOOKER Paperwork. Due on due Goal Order Annual PT. Due on due Goal ALT (SGPT). Due on due Goal AST (SGOT). Due on due Goal OARS. Due on due Goal DIRECTOR OF RECRUITMENT Scanned. Due on due Goal UDT. Due [...] n due Goal Tobacco Use. Due on 025 due Goal Weight. Due on d ue Goal FIT-DNA. Due on due Goal Update Social History. Due o n due Goal Tobacco cessation counseling completed Goal Creatinine. Due on due Goal SCRAP HOOKER Paperwork. Due on due Goal Order Annual PT. Due on due Goal DIRECTOR OF RECRUITMENT Scanned. Due on due Goal AST (SGOT). Due on due Goal ALT (SGPT). Due on due Goal OARS. Due on due Goal Height. Due on d ue Goal PHQ-9. Due on du e Goal UDT. Due on due Goal Hepatitis [...] due Goal CT-Colonography. Due on due Goal Creatinine. Due on due Goal Order Annual PT. Due on due Goal SCRAP HOOKER Paperwork. Due on due Goal AST (SGOT). [...] Goal ALT (SGPT). Due on due Goal DIRECTOR OF RECRUITMENT Scanned. Due on due Goal OARS. Due on [...] Due on d ue Goal Zoster vaccine (). Due on due Goal Medication Reconciliation. D ue on due Goal Tobacco Use. Due on due Goal Hepatitis C screening. Due o n due Goal FIT-DNA. Due on due Goal UDT. Due on due Goal DIRECTOR OF RECRUITMENT Scanned. Due on due Goal Order Annual PT. Due on due Goal OARS. Due on due Goal SCRAP HOOKER Paperwork. Due on due Goal AST (SGOT). Due on due Goal Creatinine. Due on due Goal Zoster vaccine (). Due on due Goal DIRECTOR OF RECRUITMENT Scanned. Due on due Goal Order Annual [...] Medication Reconciliation. D ue on due Goal SCRAP HOOKER Paperwork. Due on due Goal ALT (SGPT). Due on due Goal UDT. Due on due Goal AST (SGOT). Due on due Goal DIRECTOR OF RECRUITMENT Scanned. Due on due Goal Creatinine. Due on due Goal Order Annual PT. Due on due Goal UDT. Due on due Goal ALT (SGPT). Due on due Goal SCRAP HOOKER Paperwork. Due on due Goal AST (SGOT). [...] Review Allergy List. Due on due Goal Tobacco Use. Due on due Goal AST (SGOT). Due on due Goal Hepatitis C screening. Due o n due Goal Weight. Due on d ue Goal UDT. Due on due Goal Creatinine. Due on due Goal OARS. Due on due Goal Order Annual PT. Due on due Goal SCRAP HOOKER Paperwork. Due on due Goal ALT (SGPT). Due on due Goal DIRECTOR OF RECRUITMENT Scanned. Due on due Goal CT-Colonography. Due [...] Medication Reconciliation. D ue on due Goal Height. Due on d [...] due Goal Creatinine. Due on due Goal DIRECTOR OF RECRUITMENT Scanned. Due on due Goal Order Annual PT. Due on due Goal SCRAP HOOKER Paperwork. Due on due Goal UDT. Due on due Goal OARS. Due on due Goal Update Social History. Due o n due Goal CT-Colonography. Due on due Goal FIT-DNA. Due on due Goal Unhealthy drug use screening . Due on due Goal PHQ-9. Due on du e Goal CT-Colonography. Due on due Goal PHQ-9. Due on e Goal Hepatitis C screening. Due o n due Goal Zoster vaccine (). Due on due Goal Tobacco Use. Due on due Goal Update Social History. Due o n due Goal Weight. Due on d ue Goal DIRECTOR OF RECRUITMENT Scanned. Due on due Goal ALT (SGPT). Due on due Goal Creatinine. Due on due Goal OARS. Due on due Goal AST (SGOT). Due on due Goal Order Annual PT. Due on due Goal UDT. Due on due Goal SCRAP HOOKER Paperwork. Due on due Goal FIT-DNA. Due [...] due Goal Tobacco cessation counseling completed Appointment Andrei Nolan - [employer] IT Pump Implant Procedure Edu BOOKED Appointment Ibis Nolan- 1 Week P ost-Op Call BOOKED Appointment Ibis Nolan- 2 Week F /U BOOKED Appointment Ibis Nolan #[id number] IT Pump Microdose Implant BOOKED History Of Present Illness Encounter Date Complaint History Of Prese nt Illness Widespread pain Severity level i s 10. Duration: chronic. Location of the pain is lower back, neck and bilateral hip. The patient describes it as achy and burning. The problem is worsening. Symptom is aggravated by bending, sitting,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
--- OUTSIDE RECORDS SUMMARY | 2025-06-24 02:51 | XMS_ITS | Continuity of Care Document ---
Author Organization [facility] is[facility] Address [address] FADUMO Hurt [address] Phone Care Team Providers Care Project Eng Name Role Phone Rica TMAANNA Zita Unavailable Unavailable Allergies, Adverse Reactions, Alerts [...] Diagnoses Date Provider Providers Copied on Encounter [facility], [address] [place] [address], [id number] , [place] tel:[phone] [facility] [place] No Information 5 Nyongesa Zita. [address] [facility] [address], [place], [id number], [place]. tel:[phone] [facility], [address] [place] [address], [id number] , [place] [phone] [facility] No Information 5 Nyongesa Zita. 19[address] [facility] [address], [place], [id number], [place]. tel:[phone] [facility], [address] [place] [address], [id number] , [place] tel:[phone] [facility] Postlaminectom y syndrome, not elsewhere classified 5 Nyongesa Zita. [address] [facility] [address], [place], [id number], [place]. tel:[phone] Referring Provider: Steve Montes, [address] [place], [place] [address], [address] . tel:[phone] [facility], [address] [place] [address], [id number] , [place] tel:[phone] [facility] [place] No Information 5 Nyongesa Zita. [address] [facility] [address], [place], [id number], [place]. tel:[phone] [facility], [address] [place] [address], [id number] , [place] tel:[phone] [facility] Postlaminectom y syndrome, not elsewhere classified 5 Julio Samuel. [address], [address], [place], [place], [id number], [place]. [phone] Referring Provider: Setve Montes, [address] [place] [address] [place], [address] . tel:[phone] [facility], [address] [place] [address], [id number] , [place] tel:[phone] [facility] Postlaminectom y syndrome, not elsewhere classified 5 Julio Samuel. [address], [address], [place], [place], [id number], [place]. [phone] [facility], [address] [place] [address], [id number] , [place] tel: [phone] [place] [address] No Information 5 Julio Samuel. [address], [address], [place], [place], [id number], [place]. tel:[phone] Referring Provider: Steve Montes, [address] [place], [place] [address], [address] . tel:[phone] OFFICE/OUTPAT IENT VISIT, EST [facility], [address] [place] [address], [id number] , [place] tel:[phone] [facility] [place] Widespread pain (chief complaint) Radiculopathy, cervical regionLong term (current) use of 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Chron ic pain syndromePostla minectomy syndrome, not elsewhere classifiedPain in right knee [address], [place], [place], [id number], [place]. tel:[phone] Referring Provider: Steve Montes, [address] [place] [address] [place], [address] . tel:[phone] [facility], [address] [place] [address], [id number] , [place] tel:[phone] [facility] widespread pain (chief complaint) Radiculopathy, lumbar regionPostlami nectomy syndrome, not elsewhere classified 5 Juliana Dutta. [address] [place] [address], [id number], [place]. tel:[phone] Referring Provider: Steve Montes, [address] [place], [place] [address], [address] . tel:[phone] [facility], [address] [place] [address], [id number] , [place] tel:[phone] Tele[facility] Post-traumatic stress disorder 5 Rae Puentes. [address] [place] [address], [id number], [place]. tel:[phone] OFFICE/OUTPAT IENT VISIT, EST [facility], [address] [place] [address], [id number] , [place] tel:[phone] [facility] Widespread pain (chief complaint) Radiculopathy, cervical regionLong term (current) use of 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Chron ic pain syndromePostla minectomy syndrome, not elsewhere classifiedPain in right kneeEncounter for therapeutic drug level monitoring 5 Julia Zita. [address], [place], [place], [id number], [place]. tel:[phone] Referring Provider: Steve Montes, [address] [place], [place] [address], [address] . tel:[phone] OFFICE VISIT, EST TELEMEDICINE [facility], [address] [place] [address], [id number] , [place] tel:[phone] [facility] [place] Widespread pain (chief complaint) Radiculopathy, cervical regionChronic pain syndromeLong term (current) use of 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Postl aminectomy syndrome, not elsewhere classifiedRadi culopathy, lumbar regionPain in right knee 5 Lexi Kinney. [address], [place], [place], [id number], [place]. tel:[phone] [facility], [address] [place] [address] [place], [id number] , [place] [phone] [facility] Radiculopathy, cervical region Sep-0 5 Kelsea Toure. [address] [facility] [place], [place], [place], [id number], [place]. tel:[phone] Referring Provider: Steve Montes, [address] [place] [address] [place], [address] . tel:[phone] OFFICE VISIT, EST TELEMEDICINE [facility], [address] [place] [address], [id number] , [place] [phone] [facility] Widespread pain (chief complaint) Radiculopathy, cervical regionChronic pain syndromeLong term (current) use of 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Postl aminectomy syndrome, not elsewhere classifiedRadi culopathy, lumbar regionPain in right knee 5 Lexi Kinney. [address], [address], [place], [place], [id number], [place]. tel:[phone] Referring Provider: Steve Montes, [address] [place] [address] [place], [address] . tel:[phone] OFFICE VISIT, EST TELEMEDICINE [facility], [address] [place] [address], [id number] , [place] [phone] [facility] [place] Neck Pain (chief complaint)L eg Pain (chief complaint) Radiculopathy, cervical regionChronic pain syndromeLong term (current) use of 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Postl aminectomy syndrome, not elsewhere classifiedRadi culopathy, lumbar regionPain in right knee 5 Brunoeva Kinney. [address], [address], [place], [place], [id number], [place]. tel:[phone] [facility], [address] [place] [address], [id number] , [place] tel:[phone] [place] [facility] [place] Radiculopathy, lumbar region 5 Julio Samuel. [address], [address], [place], [place], [id number], [place]. tel:[phone] Referring Provider: Steve Montes, [address] [place] [address] [place], [address] . tel:[phone] OFFICE/OUTPAT IENT VISIT, [facility], [address] [place] [address], [id number] , [place] [phone] [facility] Widespread pain (chief complaint) Radiculopathy, cervical regionChronic pain syndromeLong term (current) use of 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Postl aminectomy syndrome, not elsewhere classifiedRadi culopathy, lumbar regionPain in right knee Radha Ferrer. [address] [facility], [place], [place], [id number], [place]. tel:[phone] Referring Provider: Steve Montes, [address] [place] [address] [place], [address] . tel:[phone] OFFICE/OUTPAT IENT VISIT, [facility], [address] [place] [address], [id number] , [place] [phone] [facility] Widespread pain (chief complaint) Radiculopathy, cervical regionPain in left kneeChronic pain syndromeLong term (current) use of 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Postl aminectomy syndrome, not elsewhere classifiedRadi culopathy, lumbar regionPain in right kneeEncounter for therapeutic drug level monitoring 5 Rica [address]umada. [address], [place], [place], [id number], [place]. tel:[phone] Referring Provider: Steve Montes, [address] [place] [address] [place], [address] . tel:[phone] [facility], [address] [place] [address], [id number] , [place] tel:[phone] [facility] Pain in right knee May-0 5 Mariana Bryson. [address] [place], [place], [id number], [place]. tel:[phone] Referring Provider: Steve Montes, [address] [place] [address] [place], [address] . tel:[phone] OFFICE/OUTPAT IENT VISIT, [facility], [address] [place] [address], [id number] , [place] [phone] [facility] Widespread pain (chief complaint) Chronic pain syndromePostla minectomy syndrome, not elsewhere classifiedRadi culopathy, cervical regionPain in left kneeLong term (current) use of 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Pain in right kneeRadiculopa thy, lumbar region Apr-3 0- 5 Nyongesa Zita. [address] [facility] [address], [place], [place], [id number], [place]. tel:[phone] Referring Provider: Steve Montes, [address] [place], [place] [address], [address] . tel:[phone] OFFICE/OUTPAT IENT VISIT, [facility], [address] [place] [address], [id number] , [place] [phone] [facility] Widespread pain (chief complaint) Chronic pain syndromePostla minectomy syndrome, not elsewhere classifiedLong term (current) use of 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Radic ulopathy, cervical regionPain in left kneeEncounter for therapeutic drug level monitoring Apr-0 - 5 Nyongesa Zita. [address], [place], [place], [id number], [place]. tel:[phone] Referring Provider: Steve Montes, [address] [place], [place] [address], [address] . tel:[phone] OFFICE/OUTPAT IENT VISIT, [facility], [address] [place] [address], [id number] , [place] tel:[phone] [facility] Neck Pain (chief complaint) Chronic pain syndromePostla minectomy syndrome, not elsewhere classifiedLong term (current) use of 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Radic ulopathy, cervical regionPain in left kneePain in right knee 5 Julio Samuel. [address], [address], [place], [id number], [place]. tel:[phone] Referring Provider: Steve Montes, [address] [place], [place] [address], [address] . tel:[phone] OFFICE/OUTPAT IENT VISIT, [facility], [address] [place] [address], [id number] , [place] [phone] [facility] neck and low back pain (chief complaint) Chronic pain syndromePostla minectomy syndrome, not elsewhere classifiedLong term (current) use of 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Radic ulopathy, cervical region 5 Mariposa Delgado. [address], [address], [place], [id number], [place]. tel:[phone] Referring Provider: Steve Montes, [address] [place], [place] [address], [address] . tel:[phone] OFFICE VISIT, EST [facility], [address] [place] [address], [id number] , [place] tel:[phone] [facility] neck pain and low back pain (chief complaint) Chronic pain syndromePostla minectomy syndrome, not elsewhere classifiedLong term (current) use of 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Radic ulopathy, cervical region 5 Rica Ahumada. [address] [facility] [address], [id number], [place]. tel:[phone] OFFICE/OUTPAT IENT VISIT, [facility], [address] [place] [address], [id number] , [place] tel:[phone] [facility] Back Pain (chief complaint) DepressionChro isis pain syndromePostla minectomy syndrome, not elsewhere classifiedLong term (current) use of 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Radic ulopathy, cervical region 4 [facility] Zita. [address], [id number], [place]. tel:[phone] Referring Provider: Steve Montes, [address] [facility] [place], [address] . tel:[phone] OFFICE/OUTPAT IENT VISIT, [facility], [address] [place] [address], [id number] , [place] tel:[phone] [facility] [place] Back Pain (chief complaint) DepressionChro isis pain syndromePostla minectomy syndrome, not elsewhere classifiedLong term (current) use of 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Cervi calgia 4 [facility] Zita. [address], [id number], [place]. tel:[phone] Referring Provider: Steve Montes, [address] [facility] [place], [address] . tel:[phone] OFFICE/OUTPAT IENT VISIT, [facility], [address] [place] [address], [id number] , [place] tel:[phone] [facility] Widespread pain (chief complaint) Chronic pain syndromePostla minectomy syndrome, not elsewhere classifiedLong term (current) use of 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Cervi calgiaDepressi onEncounter for therapeutic drug level monitoring 4 [facility] Zita. [address], [id number], [place]. tel:[phone] Referring Provider: Steve Montes, [address] [place], [address] . tel:[phone] Family History Family Member Type Diagnosis Age At Onset No Information Payers Payer name Insurance type Covered alliance party ID Bill mercedes(s) Blue Plus [facility] Dual 16 [id number] Social History Type Description Quantity Date Captured Comments Sex Female Smoking Status No Information Chief Complaint And Reason For Visit No Information Reason For Referral Reason For Referral No Information Plan Of Treatment Date Type Action Status Goal DISPATCHER REFINERY Scanned. Due on due Goal Creatinine. Due on due Goal OARS. Due on due Goal AST (SGOT). Due on due Goal Order Annual PT. Due on due Goal CARTON CATCHER Paperwork. Due on due Goal UDT. Due on due Goal ALT (SGPT). Due on due Goal Hepatitis C screening. Due o n due Goal Tobacco screening. Due on Oc due Goal Unhealthy drug use screening . Due on due Goal Update Social History. Due o n due Goal CT-Colonography. Due on due Goal Tobacco Use. Due on due Goal FIT-DNA. Due on due Goal Zoster vaccine (). Due on due Goal Height. Due on [...] Goal AST (SGOT). Due on due Goal CARTON CATCHER Paperwork. Due on due Goal DISPATCHER REFINERY Scanned. Due on due Goal Height. Due [...] PHQ-9. Due on du e Goal Tobacco Use. Due on due Goal Zoster vaccine (1st). Due on due Goal CT-Colonography. Due on due Goal UDT. Due on due Goal DISPATCHER REFINERY Scanned. Due on due Goal OARS. Due on due Goal Creatinine. Due on due Goal Order Annual PT. Due on due Goal ALT (SGPT). Due on due Goal AST (SGOT). Due on due Goal CARTON CATCHER Paperwork. Due on due Goal FIT-DNA. Due [...] Goal Height. Due on d ue Goal DISPATCHER REFINERY Scanned. Due on due Goal ALT (SGPT). Due on due Goal AST (SGOT). Due on due Goal Creatinine. Due on due Goal CARTON CATCHER Paperwork. Due on due Goal OARS. Due [...] FIT-DNA. Due on due Goal Zoster vaccine (). Due on due Goal Medication Reconciliation. D ue on due Goal PHQ-9. Due on du e Goal FIT. Due on due Goal Tobacco Use. Due on due Goal Hepatitis C screening. Due o n due Goal Tobacco screening. Due on Oc due Goal OARS. Due on due Goal CARTON CATCHER Paperwork. Due on due Goal Creatinine. Due on due Goal ALT (SGPT). Due on due Goal AST (SGOT). Due on due Goal DISPATCHER REFINERY Scanned. Due on due Goal Order Annual PT. Due on due Goal UDT. Due on due Goal Unhealthy drug use screening . Due on due Goal FIT-DNA. Due on due Goal Height. Due on d ue Goal Medication Reconciliation. D ue on due Goal Weight. Due on d ue Goal PHQ-9. Due on du e Goal CT-Colonography. Due on due Goal Tobacco screening. Due on Oc due Goal Update Social History. Due o n due Goal Hepatitis C screening. Due o n due Goal FIT. Due on due Goal Review Allergy List. Due on due Goal Tobacco Use. Due on due Goal Zoster vaccine (1st). Due on due Goal Order Annual PT. Due on due Goal Creatinine. Due on due Goal UDT. Due on due Goal AST (SGOT). Due on due Goal ALT (SGPT). Due on due Goal CARTON CATCHER Paperwork. Due on due Goal OARS. Due on due Goal DISPATCHER REFINERY Scanned. Due on due Goal Review Allergy [...] due Goal UDT. Due on due Goal CARTON CATCHER Paperwork. Due on due Goal DISPATCHER REFINERY Scanned. Due on due Goal OARS. Due on due Goal ALT (SGPT). Due on due Goal AST (SGOT). Due on due Goal Creatinine. Due on due Goal Order Annual PT. Due on due Goal DISPATCHER REFINERY Scanned. Due on due Goal ALT (SGPT). Due on due Goal Creatinine. Due on due Goal OARS. Due on due Goal CARTON CATCHER Paperwork. Due on due Goal Order Annual [...] ue Goal CT-Colonography. Due on due Goal Update Social History. Due o n due Goal Tobacco screening. Due on due Goal Order Annual PT. Due on due Goal AST (SGOT). Due on due Goal DISPATCHER REFINERY Scanned. Due on due Goal Creatinine. Due on due Goal CARTON CATCHER Paperwork. Due on due Goal UDT. Due [...] due Goal UDT. Due on due Goal CARTON CATCHER Paperwork. Due on due Goal DISPATCHER REFINERY Scanned. Due on due Goal Order Annual [...] due Goal Creatinine. Due on due Goal CARTON CATCHER Paperwork. Due on due Goal Order Annual PT. Due on due Goal ALT (SGPT). Due on due Goal AST (SGOT). Due on due Goal OARS. Due on due Goal DISPATCHER REFINERY Scanned. Due on due Goal UDT. Due [...] due Goal Creatinine. Due on due Goal CARTON CATCHER Paperwork. Due on due Goal Order Annual PT. Due on due Goal DISPATCHER REFINERY Scanned. Due on due Goal AST (SGOT). [...] Goal ALT (SGPT). Due on due Goal DISPATCHER REFINERY Scanned. Due on due Goal Creatinine. Due on due Goal Order Annual PT. Due on due Goal CARTON CATCHER Paperwork. Due on due Goal AST (SGOT). [...] due Goal OARS. Due on due Goal CARTON CATCHER Paperwork. Due on due Goal AST (SGOT). Due on due Goal UDT. Due on due Goal DISPATCHER REFINERY Scanned. Due on due Goal ALT (SGPT). [...] due Goal FIT-DNA. Due on due Goal CARTON CATCHER Paperwork. Due on due Goal ALT (SGPT). Due on due Goal UDT. Due on due Goal AST (SGOT). Due on due Goal Creatinine. Due on due Goal DISPATCHER REFINERY Scanned. Due on due Goal Order Annual [...] Zoster vaccine (1st). Due on due Goal DISPATCHER REFINERY Scanned. Due on due Goal Creatinine. Due on due Goal Order Annual PT. Due on due Goal UDT. Due on due Goal ALT (SGPT). Due on due Goal CARTON CATCHER Paperwork. Due on due Goal AST (SGOT). [...] Order Annual PT. Due on due Goal CARTON CATCHER Paperwork. Due on due Goal ALT (SGPT). Due on due Goal DISPATCHER REFINERY Scanned. Due on due Goal CT-Colonography. Due [...] due Goal Creatinine. Due on due Goal DISPATCHER REFINERY Scanned. Due on due Goal Order Annual PT. Due on due Goal CARTON CATCHER Paperwork. Due on due Goal FIT-DNA. Due [...] Goal Weight. Due on d ue Goal DISPATCHER REFINERY Scanned. Due on due Goal ALT (SGPT). Due on due Goal Creatinine. Due on due Goal OARS. Due on due Goal AST (SGOT). Due on due Goal Order Annual PT. Due on due Goal UDT. Due on due Goal CARTON CATCHER Paperwork. Due on due Goal FIT. Due [...] Goal Tobacco cessation counseling completed Appointment Andrei Nolan- [employer] IT Pump Implant Procedure Edu BOOKED Appointment Ibis Nolan- 1 Week P ost-Op Call BOOKED Appointment Ibis Nolan- 2 Week F /U BOOKED Appointment Ibis Nolan #[id number] IT Pump Microdose Implant BOOKED History Of Present Illness Encounter Date Complaint History Of Prese nt Illness Comments: Roxy ruiz presents today for follow [...] weaned off of her med, and her CARTON CATCHER will be terminated as of today. However, we can resign IT Pump CARTON CATCHER, if IT pump trial goes well No other concerns today. Widespread pain Severity level i s 10. Duration: chronic. Location of the pain is lower back, neck and bilateral hip. The patient describes it as achy and burning. The problem is worsening. Symptom is aggravated by bending, sitting, standing and walking. widespread pain Patient is a 70 year [...] limitation and an improved quality of life. Widespread pain Severity level i s 7. [...] medication regimen. No other concerns today. Comments: Roxy ruiz presents today via in-office [...] Lesion at C7 present, is working with [employer] as needed.Bilateral knee pain: Reports knee pain [...] all activities. Relieving factors include Rx Meds. Widespread pain [...] [facility] [...] today. Currently following with Dr. Smith at [facility] for cervical pain. 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 Pt called and asked to send records where he recommended a Cervical TESI d/t previous insurance issues when trying to complete it at [facility].Continues to c/o of low back pain, will scheduleHer DILMA after her trip tp [place] to see step-son on 12/03/24.Reports current medication [...] Relieving factors include sitting and Rx Meds. Widespread pain Severity level i s 9. 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 Outside records reviewed. Cervical TESI was recommended by Dr. smith to be done at [facility] but denied with insuranceReports increased [...] tumor is benign, Dilma recommended, scheduled at [facility] at 10/31/24. Pt aware we do ESIs as well. No immediate surgery recommended. EMG scheduled on 10/29/24 at [facility]. .Reports current medication regimen provides [...] factors include sitting and Rx Meds. Comments: This i s my first evaluation [...] C7. She had an appt scheduled with [facility] yesterday, but stated she became [...] clien t states the symptoms are chronic. neck pain and low back pain The symptoms are reported as being 9/10. Relieving factors include medications. The client states the symptoms are chronic. Comments: Nathan zavala is a 69 y/o female who presents via [employer] for virtual follow up and medication refill [...] evaluation of the patient. Outside records from [facility] are available for review.Jordan is a 69 y/o female here for initial consult for widespread pain, referred by Dr. Addison Ro through [facility]. Pain started many [...] walking, sitting. Patient had previously lived in [place] and moved to [place] in December 2023. Limited records available for review. Had been receiving cervical and lumbar ESIs while in [place] with benefit for 3-4 months. Has also [...]
--- OUTSIDE RECORDS SUMMARY | 2025-06-24 23:08 | XMS_ITS | CCD ---
Author Name Interface, [id number] lity Address [address] [place] [address] Organization [facility] Address [address] [place] [address] Care Team Providers Care Insurance Underwriter Sales Name Role Phone Julio POWELL, Hieu Unavailable Unavailable Rhina POWELL, Beni Unavailable Unavailable Shweta POWELL, Jack Unavailable Unavailable Allergies and Adverse Reactions Medication/Group Name Reaction Severity Date Sulfa (Sulfonamide Antibiotics) Blister 10/03/2023 Penicillins Anaphylaxis 10/03/2023 gabapentin Fatigue 10/03/2023 Wellbutrin Numbness 10/03/2023 Reason for Visit 4 Week Functional Status Date Name/Question Score/Answer 03/07/2023 ECOG performance status - grade 1 1 05/28/2020 ECOG performance status - grade 1 1 01/13/2022 ECOG performance status - grade 1 1 08/22/2019 ECOG performance status - grade 1 1 07/08/2021 ECOG performance status - grade 1 1 02/15/2019 ECOG performance status - grade 1 1 Medications Date Name Route Dose Frequency Instructions Start Date End Date Status Fill Status Indication 08/24 Alprazo padron Oral orally 1.0 tablet 2 times per day active 10/02 Potassi um Chlorid e Oral ER Tab orally 1.0 tablet extend ed releas e 2 times per day active 10/02 Oxycodo ne-Acet aminoph en Oral 10 mg-325 mg orally 1.0 tablet every 6 hours active 08/24 Albuter ol HFA Inhaler 90 mcg/act uation inhaled 2.0 every 6 hours active 08/24 Choleca lcifero l Oral orally 5000.0 unit every day active 08/22 Lisinop ril Oral take 1 tablet daily active 08/24 Albuter ol-Ipra tropium Nebuliz ed 3 mg (2.5 mg base)-0 .5 mg/3 mL QID active 08/24 Sennosi barby Oral orally 1.0 tablet 2 times per day inactive 08/24 Atorvas tatin Oral orally 20.0 mg every day inactive 08/24 Quetiap ine Oral 50.0 mg as directed 50mg QAM and 250mg QPM inactive 08/24 Hydroch lorothi azide Oral orally 1.0 tablet daily active 10/02 Ondanse marko Oral Disinte grating Tablet orally 1.0 tablet ,disin tegrat ing every 8 hours prn nausea and vomiting active 08/24 Alendro sergei Oral (Weekly ) orally 70.0 mg every week inactive 10/02 Topiram ate Oral orally 1.0 tablet as directed Take 2 tablet in the a.m. and 1 tablet in pm active 10/02 Tizanid ine Oral orally 1.0 tablet 2 times per day active 10/27 Oxycodo ne-Acet aminoph en Oral 5 mg-325 mg inactive 12/31 Oxycodo ne-Acet aminoph en Oral 7.5 mg-325 mg 4 times a day inactive 08/24 Flutica sone Inhaler 250 mcg/act uation inhaled 1.0 2 times per day active 08/24 Lactoba cillus Acidoph -Pectin Oral 75 million cell-10 0 mg 1.0 BID active 08/24 Flutica sone Nasal [place] 50 mcg/act uation 2.0 spray, suspen garth daily active 08/24 Lamotri gine Oral orally 150.0 mg 2 times per day inactive 08/24 Camphor -Mentho l Topical Lotion 0.5 %-0.5 % prn itching inactive 08/24 escital opram Oral Tablet orally 20.0 mg every day inactive 10/02 Prazosi n Oral orally 3.0 capsul e every day at bedtime active Problems Diagnosis Status Date of Diagnosis Resolution Date Anxiety (finding) Active Non-small cell lung cancer (disorder) Active Social History Date Name Value 08/18/2017 Sex Female
--- OUTSIDE RECORDS SUMMARY | 2025-06-24 23:08 | XMS_ITS ---
Author Name Interface, [id number] lity Address [address] [place] [address] Organization [facility] Address [address] [place] [address] Allergies and Adverse Reactions Medication/Group Name Reaction Severity Date Sulfa (Sulfonamide Antibiotics) Blister 10/03/2023 Penicillins Anaphylaxis 10/03/2023 Wellbutrin Numbness 10/03/2023 gabapentin Fatigue 10/03/2023 Plan Date Type Value 10/03/2023 APPOINTMENT 4 Week 10/04/2023 LAB_ORDER CT chest w/ IV c ontrast Reason for Visit 4 Week Encounters Date Name 10/03/2023 Non-small cell lung cancer (disorder) Medications Date Name Route Dose Frequency Instructions Start Date End Date Status Fill Status Indication 10/02 Potassi um Chlorid e Oral ER Tab orally 1.0 tablet extend ed releas e 2 times per day active 10/02 Oxycodo ne-Acet aminoph en Oral 10 mg-325 mg orally 1.0 tablet every 6 hours active 08/24 Choleca lcifero l Oral orally 5000.0 unit every day active 10/02 Topiram ate Oral orally 1.0 tablet as directed Take 2 tablet in the a.m. and 1 tablet in pm active 08/24 Flutica sone Nasal [place] 50 mcg/act uation 2.0 spray, suspen garth daily active 08/24 Alprazo padron Oral orally 1.0 tablet 2 times per day active 10/02 Prazosi n Oral orally 3.0 capsul e every day at bedtime active 08/24 Albuter ol-Ipra tropium Nebuliz ed 3 mg (2.5 mg base)-0 .5 mg/3 mL QID active 08/24 Flutica sone Inhaler 250 mcg/act uation inhaled 1.0 2 times per day active 10/02 Tizanid ine Oral orally 1.0 tablet 2 times per day active 08/22 Lisinop ril Oral take 1 tablet daily active 08/24 Albuter ol HFA Inhaler 90 mcg/act uation inhaled 2.0 every 6 hours active 08/24 Lactoba cillus Acidoph -Pectin Oral 75 million cell-10 0 mg 1.0 BID active 10/02 Ondanse marko Oral Disinte grating Tablet orally 1.0 tablet ,disin tegrat ing every 8 hours prn nausea and vomiting active 08/24 Hydroch lorothi azide Oral orally 1.0 tablet daily active Problems Diagnosis Status Date of Diagnosis Resolution Date Anxiety (finding) Active Non-small cell lung cancer (disorder) Active Vital Signs Date Type Value 10/03/2023 Body Temperature 97.60 10/03/2023 Heart Beat 95.00 10/03/2023 Intravascular Systolic 117 10/03/2023 Intravascular Diastolic 64 10/03/2023 BSA 1.41 10/03/2023 Weight 99.60 10/03/2023 Height 61.50 10/03/2023 BMI 18.51 10/03/2023 Pain Scale 0.00
--- OUTSIDE RECORDS SUMMARY | 2025-06-24 23:08 | XMS_ITS | Clinical Summary ---
Author Organization [employer] [facility] Address [address] [place] [id number] Care Team Providers Care Shop Technician Name Role Phone Pcp, No Primary Care [...] 65+ 2018 COVID-19 vaccine series ( - 2024-26 season) 2025 Influenza Vaccine (#1) 2025 RSV vaccine for adults or (1 - 1-dose 75+ series) 02/29/2028 Hepatitis B series for 19+ Aged Out N o longer eligible based on patient's age to complete this topic Insurance [address] [place] [id number] [facility] [place] MEDICAID Care Teams Shop Technician Relationship Specialty Start Date End Date Pcp, No . PCP - General 04/16/24
--- OUTSIDE RECORDS SUMMARY | 2025-06-24 23:10 | XMS_ITS | Clinical Summary ---
Author Organization [facility] Address [address] [place] [address] Care Team Providers Care Shearing Machine Tender Name Role Phone Addison Chapin MD Primary Care Provider + Margaret Deal PA-C Unavailable [phone] Allergies Active Allergy Reactions Criticality Noted Date [...] on file Legal Sex Female 11:21 AM [employer]OL SUPPL[employer] Gender Identity Not on file Sexual Orientation [...] this topic Insurance [address] [place] [id number] [facility] [place] Care Teams Shearing Machine Tender Relationship Specialty Start Date End Date Addison Chapin MD [address] [place] [address] PCP - General Family Medicine 08/01/24 Margaret Deal PAL[employer] [address] [place] [address] [address] [place] [address] Neurology 08/01/24
--- OUTSIDE RECORDS SUMMARY | 2025-06-24 23:10 | XMS_ITS ---
Author Name Interface, [id number] lity Address [address] [place] [address] Organization [facility] Address [address] [place] [address] Allergies and Adverse Reactions Medication/Group Name Reaction Severity Date Sulfa (Sulfonamide Antibiotics) Blister 10/03/2023 Penicillins Anaphylaxis 10/03/2023 gabapentin Fatigue 10/03/2023 Wellbutrin Numbness 10/03/2023 Plan Date Type Value 10/03/2023 APPOINTMENT 4 Week 09/06/2023 APPOINTMENT TeleHealth Visit 09/06/2023 APPOINTMENT 6 Month 09/05/2023 APPOINTMENT TeleHealth Visit 03/07/2023 APPOINTMENT 6 Month Counts 03/07/2023 APPOINTMENT 6 Month 09/06/2022 APPOINTMENT 6 Month Counts 01/13/2022 APPOINTMENT 6 Month Counts 07/08/2021 APPOINTMENT 6 Month Counts 12/31/2020 APPOINTMENT 6 Month Counts 05/28/2020 APPOINTMENT 6 Month Counts 12/05/2019 APPOINTMENT 3 Month Counts 12/05/2019 LAB_ORDER CT chest w/ IV c ontrast 05/28/2020 LAB_ORDER CT chest w/ IV c ontrast 12/31/2020 LAB_ORDER Urinalysis, Comp lete 12/31/2020 LAB_ORDER CT chest w/ IV c ontrast 07/08/2021 LAB_ORDER CT chest w/ IV c ontrast 07/15/2022 LAB_ORDER CT chest w/ IV c ontrast 09/06/2022 LAB_ORDER CT chest w/ IV c ontrast 03/07/2023 LAB_ORDER CT chest w/ IV c ontrast 10/04/2023 LAB_ORDER CT chest w/ IV c ontrast Reason for Visit 4 Week Encounters Date Name 12/05/2019 Anxiety (finding) 12/05/2019 Non-small cell lung cancer (disorder) Immunizations Date Name Route Dose Instructions Refusal Reason Stat us Covid-19 vaccine (Pfizer) Diagnostic Results Date Type Test Units Lower Limit Upper Limit Result Flag Comments Status Ordered By Specimen Source Lab Address 12/31 Urina lysis , routi ne and micro scopi c Color (ua) Yellow FINAL [facility] 12/31 Urina lysis , routi ne and micro scopi c Appea jena (ua) Clear FINAL [facility] 12/31 Urina lysis , routi ne and micro scopi c Gluco se (ua), qual Negativ e FINAL [facility] 12/31 Urina lysis , routi ne and micro scopi c Bilir ubin (ua) Negativ e FINAL [facility] 12/31 Urina lysis , routi ne and micro scopi c [place] es, quant (ua) Negativ e FINAL [facility] 12/31 Urina lysis , routi ne and micro scopi c Speci fic gravi ty (ua) 1.01% FINAL [facility] 12/31 Urina lysis , routi ne and micro scopi c Blood (ua) Negativ e FINAL [facility] 12/31 Urina lysis , routi ne and micro scopi c pH (ua) 4.5 8.0 5.0% FINAL [facility] 12/31 Urina lysis , routi ne and micro scopi c Prote in (ua) Negativ e FINAL [facility] 12/31 Urina lysis , routi ne and micro scopi c Urobi linog en, E.U./ dL (ua) EU/dl 0.2 1.0 0.2 FINAL [facility] 12/31 Urina lysis , routi ne and micro scopi c Nitri te (ua) Negativ e FINAL [facility] 12/31 Urina lysis , routi ne and micro scopi c Leuko cyte kennedy ase (ua), qual Trace FINAL [facility] 12/31 Urina lysis , routi ne and micro scopi c WBC/h pf (ua) /HPF 5-10 FINAL [facility] 12/31 Urina lysis , routi ne and micro scopi c RBC (ua) /HPF Absent FINAL [facility] 12/31 Urina lysis , routi ne and micro scopi c Bacte dann (ua), /hpf 0-10 FINAL [facility] 12/31 Urina lysis , routi ne and micro scopi c Squam ous epith elial cells (ua), /hpf /HPF 5-10 FINAL [facility] 12/31 Urine cultu re panel Refle x to urine cultu re Not Appl If Culture Ordered? is Yes, culture results will be available on-line within 24-48 hours. FINAL [facility] Medications Date Name Route Dose Frequency Instructions [...] in pm active 08/24 Flutica sone Nasal [place] 50 mcg/act uation 2.0 spray, suspen garth [...] 1.0 2 times per day active 08/24 Albuter ol HFA Inhaler 90 mcg/act uation inhaled 2.0 every 6 hours active 08/24 Lactoba cillus Acidoph -Pectin Oral 75 million cell-10 0 mg 1.0 BID active 10/02 Tizanid ine Oral orally 1.0 tablet 2 times per day active 10/02 Ondanse marko Oral Disinte grating Tablet orally 1.0 tablet ,disin tegrat ing every 8 hours prn nausea and vomiting active 08/22 Lisinop ril Oral take 1 tablet daily active 08/24 Hydroch lorothi azide Oral orally 1.0 tablet daily active Problems Diagnosis Status Date of Diagnosis Resolution Date Anxiety (finding) Active Non-small cell lung cancer (disorder) Active Vital Signs Date Type Value 12/05/2019 Intravascular Systolic 185 12/05/2019 Intravascular Diastolic 83 12/05/2019 Height 61.50 12/05/2019 BMI 24.57 12/05/2019 BSA 1.59 12/05/2019 Pain Scale 10.00 12/05/2019 Weight 132.20 12/05/2019 Heart Beat 73.00 05/28/2020 BSA 1.58 05/28/2020 BMI 23.91 05/28/2020 Height 61.50 05/28/2020 Weight 128.60 05/28/2020 Pain Scale 6.00 05/28/2020 Intravascular Systolic 147 05/28/2020 Intravascular Diastolic 81 05/28/2020 Respiratory Rate 16.00 05/28/2020 Body Temperature 96.70 05/28/2020 Heart Beat 59.00 12/31/2020 BMI 23.20 12/31/2020 BSA 1.56 12/31/2020 Height 61.50 12/31/2020 Pain Scale 8.00 12/31/2020 Intravascular Systolic 120 12/31/2020 Intravascular Diastolic 71 12/31/2020 Heart Beat 105.00 12/31/2020 Weight 124.80 07/08/2021 BMI 23.64 07/08/2021 BSA 1.57 07/08/2021 Height 61.50 07/08/2021 Weight 127.20 07/08/2021 Intravascular Systolic 141 07/08/2021 Intravascular Diastolic 79 07/08/2021 Heart Beat 98.00 07/08/2021 Body Temperature 97.30 07/08/2021 Pain Scale 0.00 01/13/2022 Weight 122.00 01/13/2022 BSA 1.54 01/13/2022 BMI 22.68 01/13/2022 Height 61.50 01/13/2022 Pain Scale 0.00 01/13/2022 Intravascular Systolic 139 01/13/2022 Intravascular Diastolic 75 01/13/2022 Heart Beat 79.00 01/13/2022 Body Temperature 96.40 09/06/2022 Intravascular Systolic 92 09/06/2022 Intravascular Diastolic 59 09/06/2022 Heart Beat 78.00 09/06/2022 Body Temperature 97.50 09/06/2022 Weight 120.00 09/06/2022 Height 61.50 09/06/2022 BMI 22.31 09/06/2022 BSA 1.53 03/07/2023 Respiratory Rate 14.00 03/07/2023 Heart Beat 98.00 03/07/2023 Body Temperature 97.00 03/07/2023 Intravascular Systolic 99 03/07/2023 Intravascular Diastolic 64 03/07/2023 Pain Scale 7.00 03/07/2023 BSA 1.46 03/07/2023 BMI 20.11 03/07/2023 Height 61.50 03/07/2023 Weight 108.20 10/03/2023 Heart Beat 95.00 10/03/2023 Intravascular Systolic 117 10/03/2023 Intravascular Diastolic 64 10/03/2023 Pain Scale 0.00 10/03/2023 BSA 1.41 10/03/2023 BMI 18.51 10/03/2023 Height 61.50 10/03/2023 Weight 99.60 10/03/2023 Body Temperature 97.60
[2025-06-24 23:22] VITALS: BP 149/79; PULSE 86; RESP 18; TEMP 36.9; O2SAT 100; BMI 22.1
--- NOTE | 2025-06-25 00:07 | ED.GENADULT ---
HPI - General Adult General Chief complaint: Unspecified Complaint, Adult Stated complaint: provider called about potassium labs Time Seen by Provider: 06/25/25 00:07 History of Present Illness HPI narrative: Pt states she was in to see her primary today for a pre -op. Having a pain pump placed on 07/03 . Pt. states her daughter got a call from pt's primary physician that here potassium is 2.8. 70-year-old presenting to emergency department concern low potassium. Had blood draw today for preop through primary care. Was notified later this evening that had low potassium and recommended to present to the emergency department. Has also been over the last week off of her regular opiates. She has not been experiencing vomiting or having diarrhea. Does not note to be having excessive weakness. A history of hypertension and significant anxiety; the latter might be contributing more than realized to the hypertension. She does report having been restarted on Xanax at this visit. Has been struggling though with pain in today in particular is bad and is wondering if maybe she could get a shot for pain during her visit here today. Reviewing her medication history otherwise, she is known to have hypokalemia she says. She has had trouble with swallowing over the years with an eosinophilic esophagitis. She believes they are 20 mEq pills but I only see 10 mEq prescribed twice daily. She believes she last took 1 maybe 5 days ago and maybe 5 days before that. Hypokalemia might be somewhat iatrogenic taking Dyazide. Other than the Xanax she reports no other medication changes recently. Related Data Home Medications ?Medication ?Instructions ?Recorded ?Confirmed albuterol 90 mcg-budesonide 80 2 inh inhalation ONCE PRN 01/23/24 06/24/25 mcg/actuation HFA aerosol inhaler ipratropium 0.5 mg-albuterol 3 mg 3 ml inhalation Q4-6H PRN 01/23/24 06/24/25 (2.5 mg base)/3 mL nebulization soln potassium chloride 10 mEq 10 meq PO BID 06/19/24 06/24/25 tablet,extended release Previous Rx's ?Medication ?Instructions ?Recorded cetirizine 10 mg tablet (Zyrtec) 10 mg PO QDAY #90 tabs 03/20/24 albuterol sulfate 2.5 mg/3 mL 2.5 mg (3 mL) inhalation Q4-6H PRN 07/26/24 (0.083 %) solution for nebulization shortness of breath or wheezing #90 mL ondansetron 8 mg disintegrating 8 mg PO Q8H PRN nausea and 07/26/24 tablet vomiting #30 tabs lorazepam 1 mg tablet 0.5 - 1 mg (0.5 - 1 x 1 mg) PO BID 10/04/24 PRN anxiety #60 tabs fluticasone propionate 50 1 spray intranasal QDAY #16 grams 12/17/24 mcg/actuation nasal spray,suspension (Flonase Allergy Relief) hydroxyzine HCl 25 mg tablet 25 mg PO QID PRN anxiety #120 tabs 12/17/24 naloxone 1 mg/mL injection syringe 1 mg IM ONCE #2 mL 12/17/24 budesonide 160 mcg-glycopyr 9 2 inh inhalation BID #10.7 grams 12/28/24 mcg-formot 4.8 mcg/actuation HFA inhaler prazosin 2 mg capsule 6 mg (3 x 2 mg) PO QHS #270 caps 01/14/25 omeprazole 40 mg capsule,delayed 40 mg PO QDAY #90 caps 03/25/25 release ropinirole 2 mg tablet 2 mg PO BID #180 tabs 03/25/25 venlafaxine 150 mg 150 mg PO QDAY #90 caps 03/25/25 capsule,extended release 24 hr (Effexor XR) lorazepam 1 mg tablet 0.5 - 1 mg (0.5 - 1 x 1 mg) PO 03/27/25 .bid - tid PRN #4 tabs cyclobenzaprine 10 mg tablet 10 mg PO QHS PRN muscle spasm #90 03/28/25 tabs apixaban 5 mg tablet (Eliquis) 5 mg PO BID #180 tabs 04/11/25 buspirone 30 mg tablet 30 mg PO TID #90 tabs 05/13/25 atorvastatin 40 mg tablet 40 mg PO QHS #90 tabs 06/18/25 escitalopram oxalate 20 mg tablet 20 mg PO QDAY #90 tabs 06/18/25 alprazolam 0.5 mg tablet (Xanax) 0.5 mg PO TID #90 tabs 06/24/25 lisinopril 10 1 tab PO QDAY #90 tabs 06/24/25 mg-hydrochlorothiazide 12.5 mg tablet potassium bicarbonate-citric acid 20 meq PO BID #30 ea 06/25/25 20 mEq effervescent tablet Allergies Allergy/AdvReac Type Severity Reaction Status Date / Time Penicillins Allergy Severe Anaphylaxis Verified 06/24/25 12:48 bupropion (From Wellbutrin) Allergy Intermediate Body Verified 06/24/25 12:48 Numbness & Tingling gabapentin Allergy Intermediate Severe Verified 06/24/25 12:48 Fatigue Sulfa (Sulfonamide Allergy Intermediate Blister Verified 06/24/25 12:48 Antibiotics) Inside & Outside Mouth bee venom protein (honey bee) Allergy Unknown Verified 06/24/25 12:48 diazepam Allergy Unknown Nausea & Verified 06/24/25 12:48 Vomiting varenicline AdvReac Unknown Unknown Verified 06/24/25 12:48 Review of Systems Status of ROS: Reports: 6 or more systems reviewed and unremarkable except as noted in History and below [facility] Medical History History of primary malignant neoplasm of left lung (06/2017) ?Z85.118 - Personal history of other malignant neoplasm of bronchus and lung (ICD-10) History of pyloric stenosis ?Z87.19 - Personal history of other diseases of the digestive system (ICD-10) Alcohol dependence in remission ?F10.21 - Alcohol dependence, in remission (ICD-10) COVID-19 ?U07.1 - COVID-19 (ICD-10) Eosinophilic esophagitis ?K20.0 - Eosinophilic esophagitis (ICD-10) Restless leg syndrome ?G25.81 - Restless legs syndrome (ICD-10) Primary hypertension ?I10 - Essential (primary) hypertension (ICD-10) Mixed hyperlipidemia ?E78.2 - Mixed hyperlipidemia (ICD-10) History of acute pancreatitis (08/03/23) ?Z87.19 - Personal history of other diseases of the digestive system (ICD-10) Vitamin D deficiency ?E55.9 - Vitamin D deficiency, unspecified (ICD-10) Allergic rhinitis, seasonal ?J30.2 - Other seasonal allergic rhinitis (ICD-10) Migraines ?G43.909 - Migraine, unspecified, not intractable, without status migrainosus (ICD-10) Urinary incontinence ?R32 - Unspecified urinary incontinence (ICD-10) Peripheral vascular disease ?I73.9 - Peripheral vascular disease, unspecified (ICD-10) GERD (gastroesophageal reflux disease) ?K21.9 - Gastro-esophageal reflux disease without esophagitis (ICD-10) COPD (chronic obstructive pulmonary disease) ?J44.9 - Chronic obstructive pulmonary disease, unspecified (ICD-10) Chronic neck and back pain ?M54.2 - Cervicalgia (ICD-10) ?M54.9 - Dorsalgia, unspecified (ICD-10) ?G89.29 - Other chronic pain (ICD-10) Osteoporosis ?M81.0 - Age-related osteoporosis without current pathological fracture (ICD-10) Lung nodules ?R91.8 - Other nonspecific abnormal finding of lung field (ICD-10) PTSD (post-traumatic stress disorder) ?F43.10 - Post-traumatic stress disorder, unspecified (ICD-10) Chronic prescription opiate use ?Z79.891 - FPC (current) use of 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 (ICD-10) BREONNA (generalized anxiety disorder) ?F41.1 - Generalized anxiety disorder (ICD-10) Major depression, recurrent ?F33.9 - Major depressive disorder, recurrent, unspecified (ICD-10) Chronic pain syndrome ?G89.4 - Chronic pain syndrome (ICD-10) Surgical History History of lumbar fusion (1995) ?Z98.1 - Arthrodesis status (ICD-10) History of tubal ligation ?Z98.51 - Tubal ligation status (ICD-10) History of left hip hemiarthroplasty (2012) ?Z96.642 - Presence of left artificial hip joint (ICD-10) History of release of tendon (2017) ?Z98.890 - Other specified postprocedural states (ICD-10) History of total bilateral knee replacement ?Z96.653 - Presence of artificial knee joint, bilateral (ICD-10) History of inguinal hernia repair (08/09/22) ?Z98.890 - Other specified postprocedural states (ICD-10) ?Z87.19 - Personal history of other diseases of the digestive system (ICD-10) History of esophageal dilatation (~2012) ?Z98.890 - Other specified postprocedural states (ICD-10) 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) ?Z90.2 - Acquired absence of lung [part of] (ICD-10) Family History Family/Other Drug dependence Mother High blood pressure Heart disease Diabetes Maternal Grandmother Diabetes Other Breast cancer Social History Narrative: , one daughter, retired, smoker, no EtOH What is your current living situation?: I presently have a place to live Problems where you live: no known problems In the past 12 months, utilities in danger of being shut off: no In past 12 months, lack of transportation kept you from medical appts, meetings, work, or getting things needed for daily living: no In the past 12 mos, have been you worried that your food would run out before you had money to buy more?: sometimes true In the past 12 mos, the food you bought just didn't last and you didn't have money to buy more?: sometimes true Smoking Status: Current every day smoker Do you use any of these nicotine containing products: E-Cigarettes How often do you have a drink containing alcohol: never AUDIT-C Alcohol total score: 0 Non-prescribed substance use: marijuana (any form) How often does anyone, including family, friends and others, physically hurt you: never How often does anyone, including family, friends and others, insult or talk down to you: never How often does anyone, including family, friends and others, threaten you with harm: never How often does anyone, including family, friends and others, scream or curse at you: never Health Related Social Needs: food insecurity (Z59.41) Exam Narrative: Exam Narrative: Accompanied here by her granddaughters. Pleasant. NAD other than restless in mild anxiety. Fully alert and easily interactive. Cranial nerves 2-12 intact. Breathing easily. Heart in regular rate. Extremities are without edema. Const: Vital Signs, click to edit/add: Vital Signs - 24 hr 06/24/25 23:22 Temperature 98.4 F Pulse Rate [Pulse Oximeter] 86 Respiratory Rate 18 Blood Pressure [Ri ght Upper Arm] 149/79 H Pulse Oximetry 100 Oxygen Delivery Me thod Room Air Documenting provider has reviewed patient's vital signs: yes Course Vital Signs Vital signs: Initial Vital Signs Temperature 98.4 F 06/24/25 23:22 Temperature Source Temporal Artery Scan 06/24/25 23:22 Pulse Rate 86 06/24/25 23:22 Respiratory Rate 18 06/24/25 23:22 Blood Pressure 149/79 H 06/24/25 23:22 Blood Pressure Mean 102 06/24/25 23:22 Blood Pressure Position Sitting 06/24/25 23:22 Pulse Oximetry 100 06/24/25 23:22 Oxygen Delivery Method Room Air 06/24/25 23:22 Vital Signs Temperature 98.4 F 06/24/25 23:22 Pulse Rate 86 06/24/25 23:22 Respiratory Rate 18 06/24/25 23:22 Blood Pressure 149/79 H 06/24/25 23:22 Pulse Oximetry 100 06/24/25 23:22 Oxygen Delivery Method Room Air 06/24/25 23:22 Temperature 98.4 F 06/24/25 23:22 Pulse Rate 86 06/24/25 23:22 Respiratory Rate 18 06/24/25 23:22 Blood Pressure 149/79 H 06/24/25 23:22 Pulse Oximetry 100 06/24/25 23:22 Oxygen Delivery Method Room Air 06/24/25 23:22 Medications Administered Medications: Discontinued Medications Generic Name Dose Route Start Last Admin Trade Name Sopiha PRN Reason Stop Dose Admin Morphine Sulfate 10 mg 06/25/25 00:27 06/25/25 00:43 Morphine 10 Mg/Ml Inj IM 06/25/25 00:28 10 mg ONCE ONE Administration Potassium Bicarbonate 50 meq 06/25/25 00:27 06/25/25 00:45 Potassium Bicarb 25 Meq Effervescent Tab PO 06/25/25 00:28 50 meq ONCE ONE Administration Medical Decision Making MDM Narrative Medical decision making narrative: She does report a chronic hypokalemia. There might be some medication relation to this but is to be taking potassium twice daily and takes it only rarely. I think we do have some room to work with here. Without related physical symptoms and if EKG looks okay, which I suspect it will, and as not experiencing vomiting or diarrhea, could probably do oral replacement. Switch to liquid form. Check EKG. EKG independently reviewed by me shows normal sinus rhythm. Rate of 73. This EKG looks very similar to prior from [facility] of 2025 As requested did give singular dosing of pain medication in the form of morphine. Did appear improved. Also given 50 mEq of effervescent potassium. Guessing this brought potassium level up to 3 or 3.1. Will also try to add a magnesium on to lab draw from earlier today. Tolerated this intake quite well. Hopefully as long as taking her potassium this level should be quite improved. Would like her to recheck shortly before surgery. Had been prescribed 10 mEq twice daily though again had not been taking this, I am prescribing 20 mEq twice daily and dose might have to be adjusted with assistance of primary care provider. Would like her to recheck labs in about 6 days. See patient discharge plan for further discussion I am prescribing the same form of potassium that you got here. I would like you to check your labs again 2 days before your surgery. Please communicate with your provider about that. Best wishes with your surgery. Medical Records Medical records reviewed: Yes I reviewed the patient's medical records Lab Data Lab results reviewed: Yes I reviewed the patient's lab results Labs: Lab Results 06/25/25 Range/Units 01:21 Lab Acknowledgement Test Added Discharge Plan Discharge Clinical Impression: Hypokalemia, Chronic pain Patient Disposition: Home w/ Parent or Adult Condition: Improved Instructions: Hypokalemia (ED) Additional Instructions: I am prescribing the same form of potassium that you got here. I would like you to check your labs again 2 days before your surgery. Please communicate with your provider about that. Best wishes with your surgery. Prescriptions: New potassium bicarb-citric acid 20 mEq tablet, effervescent 20 meq PO BID Qty: 30 0RF No Action alprazolam [Xanax] 0.5 mg tablet 0.5 mg PO TID Qty: 90 0RF albuterol-budesonide 90-80 mcg/actuation HFA aerosol inhaler 2 inh inhalation ONCE PRN Rx Instructions: as a single dose; may repeat up to 6 doses per day (12 inhalations) ipratropium-albuterol 0.5 mg-3 mg(2.5 mg base)/3 mL solution for nebulization 3 ml inhalation Q4-6H PRN cetirizine [Zyrtec] 10 mg tablet 10 mg PO QDAY Qty: 90 3RF potassium chloride 10 mEq tablet extended release 10 meq PO BID lorazepam 1 mg tablet 0.5 - 1 mg PO BID PRN (Reason: anxiety) Qty: 60 0RF fluticasone propionate [Flonase Allergy Relief] 50 mcg/actuation spray,suspension 1 spray intranasal QDAY Qty: 16 5RF Rx Instructions: administer into each nostril hydroxyzine HCl 25 mg tablet 25 mg PO QID PRN (Reason: anxiety) Qty: 120 5RF naloxone 1 mg/mL syringe 1 mg IM ONCE Qty: 2 5RF omeprazole 40 mg capsule,delayed release(DR/EC) 40 mg PO QDAY Qty: 90 3RF ropinirole 2 mg tablet 2 mg PO BID Qty: 180 1RF Rx Instructions: administer 1-3 hours before bedtime venlafaxine [Effexor XR] 150 mg capsule,extended release 24hr 150 mg PO QDAY Qty: 90 3RF lorazepam 1 mg tablet 0.5 - 1 mg PO .bid - tid PRNQty: 4 0RF ondansetron 8 mg tablet,disintegrating 8 mg PO Q8H PRN (Reason: nausea and vomiting) Qty: 30 0RF albuterol sulfate 2.5 mg /3 mL (0.083 %) solution for nebulization 2.5 mg inhalation Q4-6H PRN (Reason: shortness of breath or wheezing) Qty: 90 5RF piehfkhygs-fymkhjvz-jkgkodkbgd 160-9-4.8 mcg/actuation HFA aerosol inhaler 2 inh inhalation BID Qty: 10.7 5RF prazosin 2 mg capsule 6 mg PO QHS Qty: 270 1RF cyclobenzaprine 10 mg tablet 10 mg PO QHS PRN (Reason: muscle spasm) Qty: 90 1RF Eliquis 5 mg tablet 5 mg PO BID Qty: 180 0RF buspirone 30 mg tablet 30 mg PO TID Qty: 90 2RF atorvastatin 40 mg tablet 40 mg PO QHS Qty: 90 0RF escitalopram oxalate 20 mg tablet 20 mg PO QDAY Qty: 90 2RF lisinopril-hydrochlorothiazide 10-12.5 mg tablet 1 tab PO QDAY Qty: 90 1RF Follow Up/Referrals: Addison Chapin MD [Primary Care Provider, Family Practice] Stand Alone Forms: [facility] Info Instructions
--- OUTSIDE RECORDS SUMMARY | 2025-06-25 00:40 | XMS_ITS ---
Author Name Interface, [id number] lity Address [address] [place] [address] Organization [facility] Address [address] [place] [address] Allergies and Adverse Reactions Medication/Group Name Reaction [...] in pm active 08/24 Flutica sone Nasal [place] 50 mcg/act uation 2.0 spray, suspen gatrh daily active 08/24 Alprazo padron Oral orally [...]
--- OUTSIDE RECORDS SUMMARY | 2025-06-25 00:40 | XMS_ITS ---
Author Name Interface, [id number] lity Address [address] [place] [address] Organization [facility] Address [address] [place] [address] Allergies and Adverse Reactions Medication/Group Name Reaction Severity Date Sulfa (Sulfonamide Antibiotics) Blister 10/03/2023 Penicillins Anaphylaxis 10/03/2023 Wellbutrin Numbness 10/03/2023 gabapentin Fatigue 10/03/2023 Plan Date Type Value 10/03/2023 APPOINTMENT 4 Week 09/06/2023 APPOINTMENT TeleHealth Visit 09/06/2023 APPOINTMENT 6 Month 09/05/2023 APPOINTMENT TeleHealth Visit 03/07/2023 APPOINTMENT 6 Month Counts 03/07/2023 APPOINTMENT 6 Month 09/06/2022 APPOINTMENT 6 Month Counts 01/13/2022 APPOINTMENT 6 Month Counts 07/15/20[address]_ORDER [address] chest w/ IV c ontrast 09/06/2022 LAB_ORDER [address] chest w/ IV c ontrast 03/07/2023 LAB_ORDER [address] chest w/ IV c ontrast 10/04/2023 LAB_ORDER CT chest w/ IV c ontrast Reason for Visit 4 Week Encounters Date Name 01/13/2022 Anxiety (finding) 01/13/2022 Non-small cell lung cancer (disorder) Medications Date [...] in pm active 08/24 Flutica sone Nasal [place] 50 mcg/act uation 2.0 spray, suspen garth [...] (disorder) Active Vital Signs Date Type Value 01/13/2022 BMI 22.68 01/13/2022 Height 61.50 01/13/2022 Weight 122.00 01/13/2022 Pain Scale 0.00 01/13/2022 Intravascular Systolic 139 01/13/2022 Intravascular Diastolic 75 01/13/2022 Heart Beat 79.00 01/13/2022 Body Temperature 96.40 01/13/2022 BSA 1.54 09/06/2022 Body Temperature 97.50 09/06/2022 Heart Beat 78.00 09/06/2022 Intravascular Systolic 92 09/06/2022 Intravascular Diastolic 59 09/06/2022 Weight 120.00 09/06/2022 Height 61.50 09/06/2022 BSA 1.53 09/06/2022 BMI 22.31 03/07/2023 BMI 20.11 03/07/2023 BSA 1.46 03/07/2023 Height 61.50 03/07/2023 Weight 108.20 03/07/2023 Pain Scale 7.00 03/07/2023 Respiratory Rate 14.00 03/07/2023 Heart Beat 98.00 03/07/2023 Body Temperature 97.00 03/07/2023 Intravascular Systolic 99 03/07/2023 Intravascular Diastolic 64 10/03/2023 Body Temperature 97.60 10/03/2023 Heart Beat 95.00 10/03/2023 Intravascular Systolic 117 10/03/2023 Intravascular Diastolic 64 10/03/2023 Pain Scale 0.00 10/03/2023 Weight 99.60 10/03/2023 Height 61.50 10/03/2023 BMI 18.51 10/03/2023 BSA 1.41
--- OUTSIDE RECORDS SUMMARY | 2025-06-25 00:41 | XMS_ITS | Clinical Summary ---
Author Organization [facility] Address [address] [place] [address] Care Team Providers Care Management Retail Intern Name Role Phone Addison Chapin MD Primary Care Provider [phone] Allergies Active Allergy Reactions Criticality Noted Date [...] patient's age to complete this topic Insurance [facility] [facility] Care Teams Management Retail Intern Relationship Specialty Start Date End Date Addison Chapin MD [facility] 1981 . [place] [address] PCP - General Family Medicine 06/22/24
--- OUTSIDE RECORDS SUMMARY | 2025-06-25 00:41 | XMS_ITS | Clinical Summary ---
Author Organization [employer] [facility] Address [address] [place] [id number] Care Team Providers Care News Cameraman Name Role Phone Pcp, No Primary Care [...] topic Insurance [address] [place] [address] [facility] MEDICAID Care Teams News Cameraman Relationship Specialty Start Date End Date Pcp, No . PCP - General 04/16/24
--- OUTSIDE RECORDS SUMMARY | 2025-06-25 00:42 | XMS_ITS | Clinical Summary ---
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 Care Teams Enthone Solder Stripper Relationship Specialty Start Date End Date Addison Chapin MD [address] [place] [address] PCP - General Family Medicine 08/01/24 Margaret Deal PALizetC [address] [place] [address] [address] [place] [address] Neurology 08/01/24
[2025-06-25] MEDS: POTASSIUM BICARB 25 MEQ EFFERVESCENT TAB 50 MEQ PO (00:45)
== END 2025-06-25 01:09 | disposition home or self-care (01) ==
PROVIDERS: Emergency Provider Family Medicine; PCP Family Medicine
DX: E87.6 Hypokalemia (principal); G89.29 Other chronic pain
CPT/HCPCS: 96372; 99283; 99284; A9270; J2270

== ENCOUNTER 2025-06-28 11:19 | Outpatient (CLI) | payer BC, SELFPAY | END 2025-06-28 11:20 | disposition home or self-care (01) | LOC: NFLDREF 11:19 | PROVIDERS: PCP Family Medicine; Visit Provider Family Medicine | DX: E87.6 Hypokalemia (principal) | CPT/HCPCS: 84132 ==